=== PATIENT | male | born 1935 | race Caucasian/White ===

== ENCOUNTER 2018-09-03 17:48 | Emergency (ER) | payer MEDICARE, OTHER, SELFPAY ==
[2018-09-03 17:53] VITALS: BP 165/84; PULSE 81; RESP 24; TEMP 36.4; O2SAT 95; BMI 23.6
--- NOTE | 2018-09-03 18:16 | CT_ITS ---
STUDY: CT CERVICAL SPINE WITHOUT CONTRAST REASON FOR EXAM: Male, 83 years old. Fall, on Coumadin. RADIATION DOSAGE (If Supplied By Facility): CTDIvol = ( 19.93 ) mGy, DLP = ( 384.38 ) mGycm TECHNIQUE: High resolution transaxial imaging was performed without contrast material. Sagittal and coronal images were reconstructed. Individualized dose optimization techniques were used for this CT. COMPARISON: None FINDINGS: Normal craniovertebral junction. Normal anterior atlantoaxial articulation. Normal odontoid process. Normal cervical lordosis. Normal vertebral bodies and posterior osseous elements. C2-3: Normal endplates. Normal disc height and morphology. Normal central canal and intervertebral neuroforamina. C3-4: Normal endplates. Normal disc height and morphology. Small, noncompressive central disc protrusion. Normal central canal and intervertebral neuroforamina. Mild right facet hypertrophy. C4-5: Normal endplates. There is marked disc space narrowing. Noncompressive spondylotic bar. Foraminal stenosis is mild on the right and severe on the left due to uncinate and left facet hypertrophy. C5-6: Normal endplates. Marked disc space narrowing. Mild, noncompressive spondylotic bar. Foraminal stenosis is mild on the right and severe on the left due to uncinate and mild facet hypertrophy. C6-7: Normal endplates. Disc space narrowing. Mild, noncompressive spondylotic bar, greater on the right. There is mild foraminal encroachment, greater on the left, due to uncinate hypertrophy. C7-T1: Normal endplates. Normal disc height and morphology. Normal central canal and intervertebral neuroforamina. Normal visualized soft tissue structures. CT/Spine Cervical without Contras IMPRESSION: 1. No evidence of trauma. 2. Noncompressive C3-4 disc protrusion. 3. Moderate degenerative changes of the cervical spine. Electronically Signed: Ivana Segundo MD at 19:17 EST Tel , Service support ,
--- NOTE | 2018-09-03 18:16 | EKG12_ITS ---
Test Reason : FALL Blood Pressure : / mmHG Vent. Rate : 079 BPM Atrial Rate : 079 BPM P-R Int : 212 ms QRS Dur : 100 ms QT Int : 406 ms P-R-T Axes : 042 -27 047 degrees QTc Int : 465 ms Sinus rhythm with 1st degree A-V block Incomplete right bundle branch block Voltage criteria for left ventricular hypertrophy Nonspecific ST abnormality Abnormal ECG Confirmed by MYRON MENSAH, MAYURI ([id number]), marketing editor [place] MEI ([id number] on 09/06/2018 3:57:20 PM Referred By: MARION Confirmed By:MAYURI SANCHES MD
--- NOTE | 2018-09-03 18:16 | CT_ITS ---
STUDY: CT BRAIN WITHOUT CONTRAST REASON FOR EXAM: Male, 83 years old. Fall, on Coumadin. RADIATION DOSAGE (If Supplied By Facility): CTDIvol = ( 44.99 ) mGy, DLP = ( 812.98 ) mGycm TECHNIQUE: Transaxial CT imaging of the brain was performed without administration of intravenous contrast material. Individualized dose optimization techniques were used for this CT. COMPARISON: None. FINDINGS: Normal soft tissue structures. Normal calvarium. There is mild cerebral atrophy with widening of the extra-axial spaces and ventricular dilatation. There are areas of decreased attenuation within the white matter tracts of the supratentorial brain, consistent with microvascular disease changes. Normal basal ganglia and thalami. Normal brainstem. Normal cerebellum. There is no intracranial hemorrhage. There are no findings of an acute ischemic infarction. Normal visualized paranasal sinuses. CT/Brain/Head without Contrast IMPRESSION: 1. No acute process. 2. Mild microvascular ischemic changes. Atrophy. Electronically Signed: Ivana Segundo MD at 19:06 EST Tel , Service support ,
--- NOTE | 2018-09-03 18:16 | ED.VISSUMM ---
- ER Visit Summary Date of Service: 09/03/18 Chief Complaint: Head trauma History of Present Illness: The patient is a 83 M who presents for evaluation for head trauma after a fall. Patient states he stumbled and fell off a curb side. He had loss of consciousness, as a passerby stopped and found him unresponsive in the road. Patient had been checking his mail at the time. Family estimates patient was unconscious for 1 minute. Patient is on Coumadin. Patient currently complaining of a headache but no other complaints. He denies vision changes, neck pain, chest pain, shortness of breath, hip pain, abdominal pain, or any extremity pain. Patient denies prodromal symptoms. Family however is not for sure if patient stumbled because he tripped or if something else made him fall. Patient has been having ongoing dizziness and is currently undergoing blood pressure medication adjustments because of this. Physical Examination: Vital signs: afebrile, hemodynamically stable, no hypoxia on room air General: well nourished, well developed, in no distress Skin: warm, dry, no rash, no pallor HEENT: normocephalic, skin avulsion and hematoma on the left frontal temporoparietal scalp with arterial bleeding of the temporal artery; PERRL, EOMI, moist mucous membranes, no hemotympanum, no septal hematoma, no maxillofacial tenderness, mild contusion to the left cheek, neck is supple, no midline tenderness or deformity Cardiovascular: regular rate and rhythm without murmurs, no peripheral edema, 2+ pulses all distal extremities Respiratory: No increased work of breathing, lungs are clear to auscultation bilaterally, no rales, rhonchi or wheezing chest nontender Abdominal: Abdomen is soft, nontender with normoactive bowel sounds, no guarding or rebound, no masses MSK: Moves all extremities, no deformities,, no abrasions or lacerations noted, normal strength, pelvis is stable Neuro: Awake and alert, oriented ?4. No facial droop, sensation and motor function intact and symmetric Test Results: Abnormal Lab Results 09/03/18 09/03/18 09/03/18 18:05 18:05 18:05 WBC 5.8 RBC 3.38 L Hgb 11.3 L Hct 33.7 L MCV 99.7 H MCH 33.4 H MCHC 33.5 RDW 14.2 RDW Differential 49.3 H Plt Count 246 MPV 9.8 Immature Gran % (Auto) 0.500 Neut % (Auto) 60.5 Lymph % (Auto) 24.4 [place] % (Auto) 9.8 Eos % (Auto) 4.3 Baso % (Auto) 0.5 Absolute Neuts (auto) 3.5 Absolute Lymphs (auto) 1.42 Total Counted Not Reportable PT 25.0 H INR 2.3 APTT 50.7 H Sodium 142 Potassium 2.8 L Chloride 107 Carbon Dioxide 27.0 Anion Gap 8 BUN 25 H Creatinine 1.25 Estim Creat Clear Calc 44.08 Est GFR (MDRD) Af Amer 71 Est GFR (MDRD) Non-Af 59 L BUN/Creatinine Ratio 20.0 Glucose 103 Calcium 8.4 L Troponin I POC Glucose 09/03/18 09/03/18 18:05 18:42 WBC RBC Hgb Hct MCV MCH MCHC RDW RDW Differential Plt Count MPV Immature Gran % (Auto) Neut % (Auto) Lymph % (Auto) [place] % (Auto) Eos % (Auto) Baso % (Auto) Absolute Neuts (auto) Absolute Lymphs (auto) Total Counted PT INR APTT Sodium Potassium Chloride Carbon Dioxide Anion Gap BUN Creatinine Estim Creat Clear Calc Est GFR (MDRD) Af Amer Est GFR (MDRD) Non-Af BUN/Creatinine Ratio Glucose Calcium Troponin I 0.020 POC Glucose 121 H Clinical Impression(s) from Imaging Studies Brain CT 09/03/18 18:16 IMPRESSION: 1. No acute process. 2. Mild microvascular ischemic changes. Atrophy. Electronically Signed: Ivana Segundo MD at 19:06 EST Tel , Service support , Cervical Spine CT 09/03/18 18:16 IMPRESSION: 1. No evidence of trauma. 2. Noncompressive C3-4 disc protrusion. 3. Moderate degenerative changes of the cervical spine. Electronically Signed: Ivana Segundo MD at 19:17 EST Tel , Service support , Medications Given Discontinued Medications Acetaminophen (Tylenol) 650 mg PO X1 ONE Stop: 09/03/18 19:17 Last Admin: 09/03/18 19:19 Dose: 650 mg Lidocaine HCl (Lidocaine Hcl 1% Mdv) 0 ml INFILT X1 ONE Stop: 09/03/18 19:25 Last Admin: 09/03/18 20:39 Dose: 20 ml Potassium Chloride (K-Dur) 40 meq PO X1 ONE Stop: 09/03/18 20:32 Last Admin: 09/03/18 20:37 Dose: 40 meq Emergency Department Course and Treatment: A pressure dressing was placed over the pulsatile bleeding of the left temporal artery. CT head and C-spine performed given the mechanism of injury and patient is on Coumadin. Patient was offered and declined pain medication. He has no other findings on examination that require imaging. Workup was performed to evaluate INR and other medical workup to look for possible underlying cause of patient's stumbling. INR repeated at 2.3. EKG showed a sinus rhythm with no ischemic changes and no ectopy. It showed a first-degree AV block and incomplete right bundle branch block. Troponin negative. Labs remarkable only for hypokalemia of 2.8. Patient had no EKG changes or hypokalemia. Patient was given oral repletion in the emergency department. He began having headache from application of the pressure dressing, and he was then given Tylenol. Head CT showed no intracranial hemorrhage or skull fracture. C-spine CT showed no fracture or dislocation. Pressure dressing was removed and wound was reevaluated. The skin avulsion Is 4 cm x 4 cm with the flap in place over the temporal artery. With very minimal manipulation, arterial bleeding returned. Pressure held while area was cleansed and then locally infiltrated with 5cc of 1% plain without epinephrine. A luwrgh-ck-buqyi suture using 5-0 Ethilon was placed at the punctate spot of arterial bleeding. The bleeding at this site stopped, and then commenced again in a posterior location of the involved area. A dadhou-st-eeupz stitch was then placed spot, and bleeding commenced in between the sutures. There was no wound edges to reapproximate, as it was an superficial avulsed flap. Gelfoam was placed over the injury and a pressure dressing was then placed. On reevaluation, there was no further bleeding. A pressure dressing was applied, and patient was discharged home with wound care instructions. He was given follow-up with a surgeon for reevaluation and suture removal, as there is concern he could have further arterial bleeding and require vascular intervention. Patient was discharged home with prescription for potassium supplementation. Patient's tetanus is up-to-date. Treatment Plan: [] Disposition: [] Impression: Left frontotemporoparietal scalp 4 cm avulsion with arterial bleeding, closed head injury, hypokalemia This note was generated with [employer] (1[employer]) dictation software. It may contain incorrect words, spelling, and punctuation that were not noted in review of the chart prior to signing ED Disposition - Plan for ED Patient: Disposition: Home or Assisted Living Chief Complaint: Fall Instructions: ED Mechanical Fall, ED Laceration Scalp Stitch Or Stap Prescriptions: RX: Potassium Chloride [K-Dur] 20 meq PO BID #[id number] tab Referrals: Myles Domingo MD [STAFF PHYSICIAN] - 7 Days for suture removal Kota Mercado [[facility]] - 7 Days for suture removal Additional Instructions: You have a cut over an artery on your left scalp. 2 stitches have been placed in the cut, applied a substance called Gelfoam to help control the bleeding, and a pressure dressing was placed. Please leave the pressure dressing on for 2 days. Because of the arterial bleed and concern for damage to the artery or rebleeding when the dressing and stitches are removed, please follow-up with the surgeon on this paperwork for reevaluation of the wound. If you are unable to get an appointment with a surgeon, please follow-up with your primary care doctor for another evaluation. Sutures should be removed in 5-7 days. If at any point the cut starts bleeding again and you cannot get it to stop with pressure, you have dizziness, lightheadedness, severe headache not controlled with Tylenol, or any other concerning symptoms, return immediately to the emergency department for another evaluation.
--- NOTE | 2018-09-03 18:20 | ED.DCSUM_ITS ---
- ER Visit Summary Date of Service: 09/03/18 Chief Complaint: Head trauma History of Present Illness: The patient is a 83 M who presents for evaluation for head trauma after a fall. Patient states he stumbled and fell off a curb side. He had loss of consciousness, as a passerby stopped and found him unres ponsive in the road. Patient had been checking his mail at the time. Family estimates patient was unconscious for 1 minute. Patient is on Coumadin. Patient currently complaining of a headache but no other complaints. He denies vision changes, neck pain, chest pain, shortness of breath, hip pain, abdominal pain, or any extremity pain. Patient denies prodromal symptoms. Family however is not for sure if patient stumbled because he tripped or if something else made him fall. Patient has been having ongoing dizziness and is currently undergoing blood pressure medication adjustments because of this. Physical Examination: Vital signs: afebrile, hemodynamically stable, no hypoxia on room air General: well nourished, well developed, in no distress Skin: warm, dry, no rash, no pallor HEENT: normocephalic, skin avulsion and hematoma on the left frontal temporoparietal scalp with arterial bleeding of the temporal artery; PERRL, EOMI, moist mucous membranes, no hemotympanum, no septal hematoma, no maxillofacial tenderness, mild contusion to the left cheek, neck is supple, no midline tenderness or deformity Cardiovascular: regular rate and rhythm without murmurs, no peripheral edema, 2+ pulses all distal extremities Respiratory: No increased work of breathing, lungs are clear to auscultation bilaterally, no rales, rhonchi or wheezing chest nontender Abdominal: Abdomen is soft, nontender with normoactive bowel sounds, no guarding or rebound, no masses MSK: Moves all extremities, no deformities,, no abrasions or lacerations noted, normal strength, pelvis is stable Neuro: Awake and alert, oriented ?4. No facial droop, sensation and motor function intact and symmetric Test Results: Abnormal Lab Results 09/03/18 09/03/18 09/03/18 18:05 18:05 18:05 WBC 5.8 RBC 3.38 L Hgb 11.3 L Hct 33.7 L MCV 99.7 H MCH 33.4 H MCHC 33.5 RDW 14.2 RDW Differential 49.3 H Plt Count 246 MPV 9.8 Immature Gran % (Auto) 0.500 Neut % (Auto) 60.5 Lymph % (Auto) 24.4 [place] % (Auto) 9.8 Eos % (Auto) 4.3 Baso % (Auto) 0.5 Absolute Neuts (auto) 3.5 Absolute Lymphs (auto) 1.42 Total Counted Not Reportable PT 25.0 H INR 2.3 APTT 50.7 H Sodium 142 Potassium 2.8 L Chloride 107 Carbon Dioxide 27.0 Anion Gap 8 BUN 25 H Creatinine 1.25 Estim Creat Clear Calc 44.08 Est GFR (MDRD) Af Amer 71 Est GFR (MDRD) Non-Af 59 L BUN/Creatinine Ratio 20.0 Glucose 103 Calcium 8.4 L Troponin I POC Glucose 09/03/18 09/03/18 18:05 18:42 WBC RBC Hgb Hct MCV MCH MCHC RDW RDW Differential Plt Count MPV Immature Gran % (Auto) Neut % (Auto) Lymph % (Auto) [place] % (Auto) Eos % (Auto) Baso % (Auto) Absolute Neuts (auto) Absolute Lymphs (auto) Total Counted PT INR APTT Sodium Potassium Chloride Carbon Dioxide Anion Gap BUN Creatinine Estim Creat Clear Calc Est GFR (MDRD) Af Amer Est GFR (MDRD) Non-Af BUN/Creatinine Ratio Glucose Calcium Troponin I 0.020 POC Glucose 121 H Clinical Impression(s) from Imaging Studies Brain CT 09/03/18 18:16 IMPRESSION: 1. No acute process. 2. Mild microvascular ischemic changes. Atrophy. Electronically Signed: Ivana Segundo MD at 19:06 EST Tel , Service support , Cervical Spine CT 09/03/18 18:16 IMPRESSION: 1. No evidence of trauma. 2. Noncompressive C3-4 disc protrusion. 3. Moderate degenerative changes of the cervical spine. Electronically Signed: Ivana Segundo MD at 19:17 EST Tel , Service support , Medications Given Discontinued Medications Acetaminophen (Tylenol) 650 mg PO X1 ONE Stop: 09/03/18 19:17 Last Admin: 09/03/18 19:19 Dose: 650 mg Lidocaine HCl (Lidocaine Hcl 1% Mdv) 0 ml INFILT X1 ONE Stop: 09/03/18 19:25 Last Admin: 09/03/18 20:39 Dose: 20 ml Potassium Chloride (K-Dur) 40 meq PO X1 ONE Stop: 09/03/18 20:32 Last Admin: 09/03/18 20:37 Dose: 40 meq Emergency Department Course and Treatment: A pressure dressing was placed over the pulsatile bleeding of the left temporal artery. CT head and C-spine performed given the mechanism of injury and patient is on Coumadin. Patient was offered and declined pain medication. He has no other findings on examination that require imaging. Workup was performed to evaluate INR and other medical workup to look for possible underlying cause of patient's stumbling. INR repeated at 2.3. EKG showed a sinus rhythm with no ischemic changes and no ectopy. It showed a first-degree AV block and incomplete right bundle branch block. Troponin negative. Labs remarkable only for hypokalemia of 2.8. Patient had no EKG changes or hypokalemia. Patient was given oral repletion in the emergency department. He began having headache from application of the pressure dressing, and he was then given Tylenol. Head CT showed no intracranial hemorrhage or skull fracture. C-spine CT showed no fracture or dislocation. Pressure dressing was removed and wound was reevaluated. The skin avulsion Is 4 cm x 4 cm with the flap in place over the temporal artery. With very minimal manipulation, arterial bleeding returned. Pressure held while area was cleansed and then locally infiltrated with 5cc of 1% plain without epinephrine. A ipuvql-ci-pkrtn suture using 5-0 Ethilon was placed at the punctate spot of arterial bleeding. The bleeding at this site stopped, and then commenced again in a posterior location of the involved area. A sfzvpb-rc-ivhds stitch was then placed spot, and bleeding commenced in between the sutures. There was no wound edges to reapproximate, as it was an superficial avulsed flap. Gelfoam was placed over the injury and a pressure dressing was then placed. On reevalua tion, there was no further bleeding. A pressure dressing was applied, and patient was discharged home with wound care instructions. He was given follow- up with a surgeon for reevaluation and suture removal, as there is concern he could have further arterial bleeding and require vascular intervention. Patient was discharged home with prescription for potassium supplementation. Patient's tetanus is up-to-date. Treatment Plan: [] Disposition: [] Impression: Left frontotemporoparietal scalp 4 cm avulsion with arterial bleeding, closed head injury, hypokalemia This note was generated with [employer] dictation software. It may contain incorrect words, spelling, and punctuation that were not noted in review of the chart prior to signing ED Disposition - Plan for ED Patient: Disposition: Home or Assisted Living Chief Complaint: Fall Instructions: ED Mechanical Fall, ED Laceration Scalp Stitch Or Stap Prescriptions: RX: Potassium Chloride [K-Dur] 20 meq PO BID #7 tab Referrals: Myles Domingo MD [STAFF PHYSICIAN] - 7 Days for suture removal Kota Mercado [[facility]] - 7 Days for suture removal Additional Instructions: You have a cut over an artery on your left scalp. 2 stitches have been placed in the cut, applied a substance called Gelfoam to help control the bleeding, and a pressure dressing was placed. Please leave the pressure dressing on for 2 days. Because of the arterial bleed and concern for damage to the artery or rebleeding when the dressing and stitches are removed, please follow-up with the surgeon on this paperwork for reevaluation of the wound. If you are unable to get an appointment with a surgeon, please follow-up with your primary care doctor for another evaluation. Sutures should be removed in 5-7 days. If at any point the cut starts bleeding again and you cannot get it to stop with pressure, you have dizziness, lightheadedness, severe headache not controlled with Tylenol, or any other concerning symptoms, return immediately to the emergency department for another evaluation.
[2018-09-03 18:36] LABS: Absolute Lymphocyte Count 1.42 X10^3/ul (0.83-4.51); Absolute Neutrophil Count 3.5 X10^3/uL (2.0-7.7); Basophil# 0.03 X10^3/uL; Basophil% 0.5 % (0-1); Eosinophil# 0.25 X10^3/uL; Eosinophils% 4.3 % (0-5); Hematocrit 33.7 % (40-54); Hemoglobin 11.3 g/dl (13.0-16.5); Lymphocyte # 1.42 X10^3/ul (4.0); Lymphocyte % 24.4 % (19-41); Mean Corp Hgb Conc 33.5 g/gl (32-36); Mean Corpuscular Hgb 33.4 pg (27.0-32.0); Mean Corpuscular Volume 99.7 fL (80-94); Mean Platelet Vol. 9.8 fl (6.2-12.0); Monocyte# 0.57 X10^3/uL; Monocyte% 9.8 % (0-10); Neutrophil # 3.53 X10^3/uL (2.7-7.7); Neutrophil % 60.5 % (47-70); Platelet Count 246 K/mm3 (150-450); RBC Distribution Width CV 14.2 % (11.6-14.6); RBC Distribution Width SD 49.3 fl (35.1-43.9); Red Blood Count 3.38 M/mm3 (4.6-6.2); White Blood Count 5.8 K/mm3 (4.4-11.0)
[2018-09-03 18:37] LABS: POSITIVE COUNT NO; POSITIVE DIFFERENTIAL NO; POSITIVE MORPHOLOGY NO
[2018-09-03 18:40] LABS: International Normalized Ratio 2.3
[2018-09-03 18:41] LABS: Partial Thromboplast Time 50.7 Seconds (24.1-36.2)
[2018-09-03 18:45] LABS: Anion Gap 8 (5-15); BUN 25 mg/dL (7-18); Calcium,Total 8.4 mg/dL (8.5-10.1); Chloride 107 mmol/L (98-107); Creatinine, Serum 1.25 mg/dL (0.70-1.30); EST Glomerular Filtration Rate 59 mL/min (>60); Est Glom Filt Rate - Afr Amer 71 mL/min (>60); Estimated Creatinine Clearance 44.08 ml/min; Glucose 103 mg/dL (74-106); Potassium 2.8 mmol/L (3.5-5.1); Sodium Level 142 mmol/L (136-145)
[2018-09-03 18:46] LABS: Bedside Glucose 121 mg/dL (70-110)
[2018-09-03 18:56] VITALS: BP 169/79; PULSE 79; RESP 20; O2SAT 99
[2018-09-03 19:19] VITALS: BP 165/83; PULSE 83; RESP 19; O2SAT 99
[2018-09-03] MEDS: Acetaminophen 325 MG Tablet 650 MG PO (19:19)
--- NOTE | 2018-09-03 20:04 | ED.DEP ---
ED Disposition - Plan for ED Patient: Disposition: Home or Assisted Living Chief Complaint: Fall Instructions: ED Mechanical Fall, ED Laceration Scalp Stitch Or Stap Referrals: Kota Mercado [[facility]] - 7 Days for suture removal Myles Domingo MD [STAFF PHYSICIAN] - 7 Days for suture removal Additional Instructions: You have a cut over an artery on your left scalp. 2 stitches have been placed in the cut, applied a substance called Gelfoam to help control the bleeding, and a pressure dressing was placed. Please leave the pressure dressing on for 2 days. Because of the arterial bleed and concern for damage to the artery or rebleeding when the dressing and stitches are removed, please follow-up with the surgeon on this paperwork for reevaluation of the wound. If you are unable to get an appointment with a surgeon, please follow-up with your primary care doctor for another evaluation. Sutures should be removed in 5-7 days. If at any point the cut starts bleeding again and you cannot get it to stop with pressure, you have dizziness, lightheadedness, severe headache not controlled with Tylenol, or any other concerning symptoms, return immediately to the emergency department for another evaluation.
[2018-09-03 20:43] VITALS: BP 153/61; PULSE 74; RESP 16; O2SAT 99
== END 2018-09-03 20:43 | disposition home or self-care (01) ==
PROVIDERS: Emergency Provider Emergency Medicine; Family Provider Family Medicine; PCP Family Medicine
DX: S09.0XXA Injury of blood vessels of head, not elsewhere classified, initial encounter (principal); S08.0XXA Avulsion of scalp, initial encounter; E87.6 Hypokalemia; R55 Syncope and collapse; S00.03XA Contusion of scalp, initial encounter; M50.21 Other cervical disc displacement, high cervical region; I44.0 Atrioventricular block, first degree; I45.10 Unspecified right bundle-branch block; W10.1XXA Fall (on)(from) sidewalk curb, initial encounter; Y93.9 Activity, unspecified; Y92.9 Unspecified place or not applicable; Z79.01 Long term (current) use of anticoagulants; Z95.0 Presence of cardiac pacemaker
CPT/HCPCS: 35188; 70450; 72125; 80048; 82962; 84484; 85025; 85610; 85730; 93005; 99285; J7030; A4216

== ENCOUNTER 2018-11-24 10:53 | Emergency (ER) | payer MEDICARE, OTHER, SELFPAY ==
[2018-11-24 10:54] VITALS: BP 179/88; PULSE 60; RESP 19; TEMP 36.4; O2SAT 97; BMI 23.3
--- NOTE | 2018-11-24 11:08 | EKG12_ITS ---
Test Reason : LOW EXTREMITY Blood Pressure : / mmHG Vent. Rate : 065 BPM Atrial Rate : 065 BPM P-R Int : 258 ms QRS Dur : 100 ms QT Int : 444 ms P-R-T Axes : 000 -21 010 degrees QTc Int : 461 ms Atrial-paced rhythm with prolonged AV conduction Incomplete right bundle branch block Voltage criteria for left ventricular hypertrophy Abnormal ECG Confirmed by MYRON MENSAH, MAYURI ([id number]), primer expeditor and drier [place] MEI ([id number] on 11/29/2018 8:40:02 AM Referred By: JOSE C Confirmed By:MAYURI SANCHES MD
--- NOTE | 2018-11-24 11:11 | ED.VISSUMM ---
- ER Visit Summary Date of Service: 11/24/18 Chief Complaint: [] Lateral lower extremity weakness trouble walking since Wednesday History of Present Illness: The patient is a 83 M [] history of left rotator cuff, history of lumbar back ailment related to arthritis, history of cardiac CABG years ago, cardiac pacemaker, who is generally in stable good health. Indicates on Wednesday he was pushing a snowblower to clear snow and since that time he is experiencing sense of weakness to his legs where he cannot walk any can only shuffle and knees having trouble getting around his home he thought the symptoms would improve they did not me presents for evaluation, he does have a chronic pain to his right leg that seems slightly worse he has had no trauma no fever no cough no abdominal pain no numbness no chest pain, his lumbar back ailment is related to degenerating bones he says and arthritis he is never been told he needs surgery he has no history of peripheral vascular disease Physical Examination: [] v Signs are within normal range see those reports General, no distress resting comfortably HEENT is generally unremarkable The neck is supple no adenopathy Cardiovascular, regular rate and rhythm Lungs, clear bilateral Abdomen, soft nontender Extremities, no clubbing cyanosis or edema, he has a very faint dorsalis pedis pulses to both feet the capillary refill is similar to seconds bilaterally, both feet are warm, he has full range of motion of both lower extremities when sitting in the bed he is able to fully flex and extend at the hip and the knee dorsi and plantarflex the foot his sensation is intact to all areas there is no signs of neurovascular abnormality, he has no significant back pain to palpation,, he has decreased movement to the left upper extremity related to chronic rotator cuff deficiency not new Neurologic, awake alert answering questions appropriately moving all 4 extremities no neurologic abnormalities in the bed however when he stands he cannot even take a step forward as he feels as if his legs are rubbery Test Results: [] Emergency Department Course and Treatment: [] In all the above screening labs are obtained x-rays of the lumbar spine we are coordinating with MRI the feasibility of obtaining an MRI scan of the back given his pacemaker history Per MRI, the information they have is that the patient's pacemaker is not type where he can have a MRI, his lumbar spine films show 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, again the patient's neurologic status is unchanged she has had these symptoms since Wednesday when he is in the bed he can move his legs a difficulty is only on standing that he has profound weakness with inability to walk, discussed all of the above with the patient his discussed the need to be more definitively evaluated related to the lumbar disc abnormalities on the CT he asked to be transferred to [facility] since he has had all of his care there related to his cardiovascular conditions Spoke with [facility] they are arranging for transportation there they will be calling back with the bed and the accepting physician Disposition: [] To [facility] Impression: [] Lower extremity weakness inability to walk, 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 It may contain incorrect words, spelling, and punctuation that were not noted in review of the chart prior to signing ED Disposition - Plan for ED Patient: Referrals: Kota Mercado MD [Primary Care Provider] -
--- NOTE | 2018-11-24 11:14 | ART_ITS ---
Reason For Study: BLE weakness Left Segmental Pressures Left posterior tibial artery = 227mmHg. Left dorsalis pedis artery = 212mmHg. The left dorsalis pedis waveforms are triphasic. The left posterior tibial artery waveforms are triphasic. Right Segmental Pressures Right brachial= 179mmHg. Right posterior tibial artery = 235mmHg. Right dorsalis pedis artery = 190mmHg. The right dorsalis pedis waveforms are triphasic. The right posterior tibial artery waveforms are triphasic. Indices The right ankle brachial index by the dorsalis pedis is 1.1. The right ankle brachial index by the posterior tibial artery is 1.3. The left ankle brachial index by the dorsalis pedis is 1.3. The left ankle brachial index by the posterior tibial artery is 1.2. Interpretation Summary Normal bilateral lower extremity CLARISSA's with nice triphasic waveforms. Volume pulse recordings intact bilaterally including the digital level. Ordering Physician: Hunter Monteiro Referring Physician: Kota Mercado Performed By: Alice Ruvalcaba T
--- NOTE | 2018-11-24 11:14 | ED.DCSUM_ITS ---
- ER Visit Summary Date of Service: 11/24/18 Chief Complaint: [] Lateral lower extremity weakness trouble walking since Wednesday History of Present Illness: The patient is a 83 M [] history of left rotator cuff, history of lumbar back ailment related to arthritis, history of cardiac CABG years ago, cardiac pacemaker, who is generally in stable good health. Indicates on Wednesday he was pushing a snowblower to clear snow and since that time he is experiencing sense of weakness to his legs where he cannot walk any can only shuffle and knees having trouble getting around his home he thought the symptoms would improve they did not me presents for evaluation, he does have a chronic pain to his right leg that seems slightly worse he has had no trauma no fever no cough no abdominal pain no numbness no chest pain, his lumbar back ailment is related to degenerating bones he says and arthritis he is never been told he needs surgery he has no history of peripheral vascular disease Physical Examination: [] v Signs are within normal range see those reports General, no distress resting comfortably HEENT is generally unremarkable The neck is supple no adenopathy Cardiovascular, regular rate and rhythm Lungs, clear bilateral Abdomen, soft nontender Extremities, no clubbing cyanosis or edema, he has a very faint dorsalis pedis pulses to both feet the capillary refill is similar to seconds bilaterally, both feet are warm, he has full range of motion of both lower extremities when sit ting in the bed he is able to fully flex and extend at the hip and the knee dorsi and plantarflex the foot his sensation is intact to all areas there is no signs of neurovascular abnormality, he has no significant back pain to palpation,, he has decreased movement to the left upper extremity related to chronic rotator cuff deficiency not new Neurologic, awake alert answering questions appropriately moving all 4 extremities no neurologic abnormalities in the bed however when he stands he cannot even take a step forward as he feels as if his legs are rubbery Test Results: [] Emergency Department Course and Treatment: [] In all the above screening labs are obtained x-rays of the lumbar spine we are coordinating with MRI the fea sibility of obtaining an MRI scan of the back given his pacemaker history Per MRI, the information they have is that the patient's pacemaker is not type where he can have a MRI, his lumbar spine films show 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, again the patient's neurologic status is unchanged she has had these symptoms since Wednesday when he is in the bed he can move his legs a difficulty is only on standing that he has profound weakness with inability to walk, discussed all of the above with the patient his discussed the need to be more definitively evaluated related to the lumbar disc abnormalities on the CT he asked to be transferred to [facility] since he has had all of his care there related to his cardiovascular conditions Spoke with [facility] they are arranging for transportation there they will be calling back with the bed and the accepting physician Disposition: [] To [facility] Impression: [] Lower extremity weakness inability to walk, 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 It may contain incorrect words, spelling, and punctuation that were not noted in review of the chart prior to signing ED Disposition - Plan for ED Patient: Referrals: Kota Mercado MD [Primary Care Provider] -
[2018-11-24 11:47] LABS: Absolute Lymphocyte Count 0.79 X10^3/ul (0.83-4.51); Absolute Neutrophil Count 3.3 X10^3/uL (2.0-7.7); Basophil# 0.02 X10^3/uL; Basophil% 0.4 % (0-1); Eosinophil# 0.09 X10^3/uL; Hematocrit 32.6 % (40-54); Hemoglobin 10.8 g/dl (13.0-16.5); Lymphocyte # 0.79 X10^3/ul (4.0); Lymphocyte % 17.3 % (19-41); Mean Corp Hgb Conc 33.1 g/gl (32-36); Mean Corpuscular Hgb 31.7 pg (27.0-32.0); Mean Corpuscular Volume 95.6 fL (80-94); Mean Platelet Vol. 9.3 fl (6.2-12.0); Monocyte# 0.35 X10^3/uL; Monocyte% 7.7 % (0-10); Neutrophil % 72.2 % (47-70); POSITIVE COUNT NO; POSITIVE DIFFERENTIAL NO; POSITIVE MORPHOLOGY NO; Platelet Count 204 K/mm3 (150-450); RBC Distribution Width CV 14.8 % (11.6-14.6); RBC Distribution Width SD 50.9 fl (35.1-43.9); Red Blood Count 3.41 M/mm3 (4.6-6.2); White Blood Count 4.6 K/mm3 (4.4-11.0)
[2018-11-24 11:55] LABS: International Normalized Ratio 1.9; Prothrombin Time (Protime)PT. 22.2 SECONDS (11.7-14.9)
[2018-11-24 12:03] LABS: Anion Gap 8 (5-15); BUN 22 mg/dL (7-18); BUN/Creat Ratio 20.8 RATIO (10-20); Calcium,Total 8.5 mg/dL (8.5-10.1); Chloride 110 mmol/L (98-107); Creatinine, Serum 1.06 mg/dL (0.70-1.30); EST Glomerular Filtration Rate 71 mL/min (>60); Est Glom Filt Rate - Afr Amer 86 mL/min (>60); Estimated Creatinine Clearance 55.48 ml/min; Glucose 104 mg/dL (74-106); Potassium 3.6 mmol/L (3.5-5.1); Sodium Level 140 mmol/L (136-145)
--- NOTE | 2018-11-24 12:15 | RAD_ITS ---
STUDY: X-RAY - LUMBAR SPINE REASON FOR EXAM: Male, 83 years old. Arthritis. TECHNIQUE: 3 view(s) of the lumbar spine were obtained. COMPARISON: None FINDINGS: Normal lumbar lordosis. There is no substantial scoliosis. There is a normal alignment of the vertebrae. 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 5 vertebral bodies without ribs above this level will be deemed L1-L5 for this dictation. There is mild degenerative sclerosis of the opposing L4-5 endplates and possible left lateral endplate spurring. There is severe narrowing of the L4-5 intervertebral disc height, and borderline to mild narrowing at L5-transitional vertebra. There is no demonstrated osseous destructive lesion or fracture. Degenerative changes also suggested in the lower lumbar facet articulations. 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 RAD/Lumbar Spine 2 or 3 Views IMPRESSION: 1. Degenerative changes of the spine, as detailed above. 2. 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 Diffuse aortic calcific plaquing with 3.3 cm fusiform ectasia at its distal third. Electronically Signed: Juan Huizar MD at 13:29 EST , Service support ,
--- NOTE | 2018-11-24 12:20 | RAD_ITS ---
STUDY: X-RAY CHEST REASON FOR EXAM: Male, 83 years old. Chest pain. TECHNIQUE: Single AP portable upright view of the chest. COMPARISON: None. FINDINGS: There is a left sided cardiac pacemaker, generator overlaps in the lateral margin of the left thoracic cage. Its 2 leads extend from the subclavian vein to the right atrium and ventricle. The lungs are under expanded. There is minor curvilinear scarring in the left lung base. There is no demonstrated pleural abnormality. There is borderline cardiomegaly. Sternal cerclage wires and vascular clips are present from a prior sternotomy and coronary artery bypass graft procedure (CABG). Normal mediastinum and moise. Normal visualized pulmonary arteries. There is mild atherosclerotic calcification of the aortic arch. Normal visualized thoracic spine. Normal visualized ribs, clavicles, and shoulders. There is no demonstrated abnormality of the visualized soft tissue structures of the upper abdomen. RAD/Chest 1 View (Portable) IMPRESSION: 1. Prior median sternotomy and CABG. Borderline cardiac enlargement. No CHF. 2. Dual lead left subclavian cardiac pacemaker in place. 3. Minor linear left base pulmonary scarring. Electronically Signed: Juan Huizar MD at 12:45 EST , Service support ,
[2018-11-24 12:22] LABS: CPK Total, Creatine Kinase 127 U/L (39-308)
[2018-11-24 14:04] VITALS: BP 162/78; PULSE 60; RESP 19; O2SAT 95
--- NOTE | 2018-11-24 14:04 | CT_ITS ---
STUDY: CT LUMBAR SPINE WITHOUT CONTRAST REASON FOR EXAM: Male, 83 years old. Low back pain. Bilateral leg weakness after snow blowing, trouble with ambulation. RADIATION DOSAGE (If Supplied By Facility): CTDIvol = ( 16.49 ) mGy, DLP = ( 470.80 ) mGycm TECHNIQUE: The patient was scanned in a multi detector CT scanner. High resolution transaxial imaging was performed. Images were obtained from T12-L1 to S3-4. Sagittal and coronal images were reconstructed. Individualized dose optimization techniques were used for this CT. COMPARISON: 3 plain film views of the lumbar spine 1224 hours. FINDINGS: There is a transitional lumbosacral vertebra with near spina bifida occulta. For the purposes of this dictation, this will be deemed S1 and the 5 nonrib-bearing vertebrae above this level will be labeled L1-L5. There is no demonstrated osseous destructive lesion or acute fracture. Normal lumbar lordosis. There is mild rightward subluxation of L4 on L5 and mild leftward subluxation of L5 on S1, resulting in a minor lumbosacral as shaped scoliosis. L1-2: Early bilateral posterolateral degenerative endplate lipping. Minimal right-sided disc height narrowing. Normal bilateral facet joints. Normal central canal and bilateral lateral recesses. Normal bilateral intervertebral neural foramina. L2-3: Early anterolateral degenerative endplate lipping. Mild right-sided disc height narrowing with circumferential disc bulge and mild wide based left lateral disc protrusion. Normal bilateral facet joints. There is disc effacement of the anterior central canal and bilateral lateral recesses. Normal bilateral intervertebral neural foramina. L3-4: Early degenerative endplate lipping. Moderate right-sided disc height narrowing and mild circumferential disc bulge. Early posterior degenerative narrowing of the right facet joint. There is subtle hypertrophy of the ligamentum flavum. Minor narrowing of the central canal and bilateral lateral recesses. Normal bilateral intervertebral neural foramina. L4-5: Left lateral endplate osteophytes and mild right lateral L5 endplate spurring. Well corticated focal invaginations consistent with benign Schmorl's nodes and/or subcortical cystic degenerative changes are most prominent in the left superior L5 endplate. Moderate to moderately severe disc height narrowing, most prominent to the left. Mild wide based posterior disc bulge. There is vacuum phenomenon due to disc dehydration in the left disc spaces well. Early degenerative periarticular spurring of the bilateral facet joints. There is mild joint space narrowing on the left. Mild hypertrophy ligamentum flavum. Mild to moderate narrowing of the central canal and bilateral lateral recesses. Possible disc/spur impingement on the exiting left nerve root. L5-S1: There is right lateral endplate sclerosis and degenerative osteophyte formation. Well-corticated, focal invaginations of the endplates in this area consistent with small benign Schmorl's nodes. Moderately severe right-sided narrowing of the disc space. Moderate to moderately severe narrowing of the bilateral facet joints with degenerative sclerosis in the S1 facet and minor calcification of the right ligamentum flavum. Normal central canal and bilateral lateral recesses. Potential disc irritation of the bilateral exiting nerve roots. Normal visualized paraspinous soft tissue structures. Incidental note of aortoiliac atherosclerotic calcific plaquing. CT/Spine Lumbar without Contrast IMPRESSION: Multilevel degenerative changes, as described above. Electronically Signed: Juan Huizar MD at 15:22 EST , Service support ,
[2018-11-24 16:00] VITALS: BP 114/87; PULSE 68; RESP 15; O2SAT 96
--- NOTE | 2018-11-24 17:01 | NURSING ---
DR GATICA AKJAVI GEN [id number] BED 2 REPORT [phone]
--- NOTE | 2018-11-24 17:07 | NURSING ---
CALLED [facility] FOR TRANSPORT. COMING FROM [place]
[2018-11-24 17:11] VITALS: BP 160/76; PULSE 70; RESP 15; O2SAT 97
[2018-11-24 17:54] VITALS: BP 160/76; PULSE 70; RESP 15; TEMP 36.6; O2SAT 97
== END 2018-11-24 18:22 | disposition short-term general hospital (02) ==
PROVIDERS: Emergency Provider Emergency Medicine; Family Provider Family Medicine; PCP Family Medicine
DX: R29.898 Other symptoms and signs involving the musculoskeletal system (principal); M51.36 Other intervertebral disc degeneration, lumbar region; M51.26 Other intervertebral disc displacement, lumbar region; Z95.1 Presence of aortocoronary bypass graft; Z79.899 Other long term (current) drug therapy; M79.604 Pain in right leg; R26.2 Difficulty in walking, not elsewhere classified
CPT/HCPCS: 71045; 72100; 72131; 80048; 82550; 83880; 84484; 85025; 85610; 93005; 93923; 99285; J7030

== ENCOUNTER 2020-10-30 11:47 | Emergency (ER) | payer MEDICARE, OTHER, SELFPAY ==
[2020-10-30 11:48] VITALS: BP 163/112; PULSE 63; RESP 18; TEMP 36; O2SAT 95; BMI 22.1
--- NOTE | 2020-10-30 12:08 | EKG12_ITS ---
Test Reason : CP Blood Pressure : / mmHG Vent. Rate : 070 BPM Atrial Rate : 070 BPM P-R Int : 000 ms QRS Dur : 110 ms QT Int : 456 ms P-R-T Axes : 000 -31 103 degrees QTc Int : 492 ms AV dual-paced rhythm Abnormal ECG Confirmed by MYRON MENSAH, MAYURI ([id number]), magazine editor SHANELL HFUFMAN ([id number]) on 11/04/2020 9:38:35 AM Referred By: BOOGIE Confirmed By:MAYURI SANCHES MD
[2020-10-30 12:40] VITALS: O2SAT 95
--- NOTE | 2020-10-30 12:46 | ED.VIS.GEN ---
History of Present Illness Chief Complaint: Shortness of Breath Informant: Patient Narrative: Patient is an 85-year-old male with a past medical history of CAD with bypass, A. fib on Eliquis, hypertension who presents to the emergency department for chest pain or shortness of breath. Symptoms have been present over the past 4 days. He states that his shortness of breath has resolved at this point. He went to his PCPs to get a coronavirus test and he was referred to the ED at that time. He states that his chest discomfort is a 1 out of 10. It feels achy to him. Is in the substernal region and does not radiate anywhere. He has not tried taking anything for this. He does have occasional peripheral edema of the lower extremities but no worse than normal. No calf tenderness. He denies any palpitations. No cough, headache, sore throat. No fevers or chills. No nausea/vomiting or diarrhea. No known sick exposures. Past Medical History - Allergies and Home Meds Allergies/Adverse Reactions: Allergies No Known Allergies Allergy (Verified 10/30/20 11:47) Primary Care Physician: Kota Mercado MD [Primary Care Provider] - 3-5 Days Past Medical History: - - Per HPI Surgical History: coronary bypass surgery Smoking Status: Never smoker Review of Systems All systems negative except as indicated General: Denies: Chills, Fever, Sweats Eyes: Denies: Visual changes - bilaterally, Diplopia ENT: Denies: Rhinorrhea, Sore throat Cardiovascular: Reports: Chest pain. Denies: Palpitations Respiratory: Reports: Dyspnea - Resolved. Denies: Cough, Dyspnea on exertion Gastrointestinal: Denies: Abdominal pain, Nausea, Vomiting, Diarrhea Genitourinary: Denies: Dysuria, Hematuria, Frequency Musculoskeletal: Denies: Back pain, Extremity Pain Skin: Denies: Rash, Wounds Neurological: Denies: Headache, Weakness, Numbness Physical Exam Vital Signs/Narrative: Vital Signs Temp Pulse Resp BP Pulse Ox 10/30/20 11:48 96.8 F L 63 18 163/112 H 95 Inital Vital Signs reviewed: Yes General: Well nourished, Well developed, No Acute Distress Head: Normocephalic, Atraumatic Eyes: Perrl, EOMI ENT: Moist mucous membranes, No rhinorrhea Neck: Supple, Nontender Cardiovascular: Regular rate, Regular rhythm, No murmurs Respiratory: No distress, CTA bilaterally, Chest nontender Abdomen: Soft, Nontender, Nondistended, Normal bowel sounds Back: Nontender, Normal Inspection Extremities: Nontender, No edema. Negative for: Calf Tenderness Skin: Normal color, No rash Neurological: Alert, Oriented x3, Cranial nerves II-XII grossly intact, Normal Strength, Normal Sensation Psychological: Normal affect, Normal Mood Diagnostic/Tx/Re-eval Chest X-Ray - ED: 1 View - Single view portable x-ray interpreted by myself. Present. He does have a pacemaker present. Mild pulmonary vascular congestion. No pleural effusions. No infiltrates noted. Normal cardiac silhouette. Normal mediastinum. Agree with radiologist interpretation. - EKG Initial EKG Interpretation: - - Rate of 70 bpm and an irregular rhythm. Otherwise normal intervals. Left axis deviation. No ST elevations or depressions. No T wave abnormalities. - Medical Decision Making Patient presents to the ED for 1 out of 10 chest pain shortness of breath. Initially only wanted a coronavirus test from his PCP but he was told to come to the emergency department. Upon arrival to the ED vital signs within normal limits. He is in no acute distress. He states that his shortness of breath has actually completely resolved. Will check EKG, chest x-ray and basic lab work. Patient's work-up showed the patient to be hypokalemic and hypomagnesium. This will replace both IV and orally. His troponin is within normal limits. His Covid test is negative. Given his history of CABG and chest pain I did offer hospitalization. He states that this is very minimal and actually stating that he is not having any pain whatsoever at this time. He understands associated with risk of not having complete work-up. He is going to follow-up with his PCP and states he has an appointment coming this next week. I did discuss strict return precautions including any worsening chest pain or shortness of breath. He understands and is agreeable this plan. All questions were answered. ED Disposition - Plan for ED Patient: Disposition: Home or Assisted Living Diagnosis: Chest pain, Hypokalemia, Hypomagnesemia Instructions: ED Chest Pain, Uncertain Cause, ED Hypokalemia Referrals: Kota Mercado MD [Primary Care Provider] - 3-5 Days
--- NOTE | 2020-10-30 12:50 | RAD_ITS ---
STUDY: X-RAY CHEST REASON FOR EXAM: Male, 85 years old. Sob, cp TECHNIQUE: Single AP portable view of the chest. COMPARISON: Comparison is made with prior examination dated 11/24/2018. FINDINGS: EKG electrodes are seen. Minimal degree of vascular congestion. There is no demonstrated pleural abnormality. Sternal cerclage wires and vascular clips are present from a prior sternotomy and coronary artery bypass graft procedure (CABG). Borderline cardiomegaly. A left-sided dual-chamber pacemaker is seen. Normal mediastinum and moise. Normal visualized pulmonary arteries. There is atherosclerotic calcification of the aortic arch with tortuosity. Normal visualized thoracic spine. Normal visualized ribs, clavicles, and shoulders. There is no demonstrated abnormality of the visualized soft tissue structures of the upper abdomen. RAD/Chest 1 View (Portable) IMPRESSION: Mild degree of vascular congestion. Electronically Signed: Michael Soriano, at 13:39 EST , Service support ,
[2020-10-30 12:55] LABS: Absolute Lymphocyte Count 0.96 X10^3/uL (0.83-4.51); Absolute Neutrophil Count 4.4 X10^3/uL (2.0-7.7); Basophil# 0.04 X10^3/uL; Basophil% 0.6 % (0-1); Eosinophil# 0.15 X10^3/uL; Eosinophils% 2.4 % (0-5); Hematocrit 34.7 % (40-54); Hemoglobin 11.7 g/dL (13.0-16.5); Lymphocyte # 0.96 X10^3/ul (4.0); Lymphocyte % 15.5 % (19-41); Mean Corp Hgb Conc 33.7 g/dL (32-36); Mean Corpuscular Hgb 32.5 pg (27.0-32.0); Mean Corpuscular Volume 96.4 fL (80-94); Mean Platelet Vol. 9.8 fl (6.2-12.0); Monocyte# 0.58 X10^3/uL; Monocyte% 9.4 % (0-10); NRBC Flagged by Analyzer 0 % (0-5); Neutrophil # 4.44 X10^3/uL (2.7-7.7); Neutrophil % 71.8 % (47-70); Platelet Count 199 K/mm3 (150-450); RBC Distribution Width CV 13.1 % (11.6-14.6); RBC Distribution Width SD 46.6 fl (35.1-43.9); White Blood Count 6.2 K/mm3 (4.4-11.0)
[2020-10-30 13:31] LABS: AST(SGOT) 30 U/L (15-37); Alanine Aminotransfer ALT/SGPT 43 U/L (16-61); Albumin, Serum 3.8 g/dL (3.2-5.0); Alkaline Phosphatase 83 U/L (45-117); Anion Gap 6 (5-15); BUN 15 mg/dL (7-18); BUN/Creat Ratio 14.4 RATIO (10-20); Calcium,Total 8.6 mg/dL (8.5-10.1); Chloride 106 mmol/L (98-107); Creatinine, Serum 1.04 mg/dL (0.70-1.30); EST Glomerular Filtration Rate 72 mL/min (>60); Est Glom Filt Rate - Afr Amer 87 mL/min (>60); Estimated Creatinine Clearance 50.88 ml/min; Globulin 3.9 g/dL (2.2-4.2); Glucose 100 mg/dL (74-106); Potassium 2.9 mmol/L (3.5-5.1); Protein, Total 7.7 g/dL (6.4-8.2); Sodium Level 141 mmol/L (136-145)
[2020-10-30 14:23] VITALS: BP 162/68; PULSE 71; RESP 16; O2SAT 95
[2020-10-30] MEDS: Potassium Chloride 10mEq/100mL 10 MEQ/100 ML IV.SOLN. 100 MEQ IV BOLUS (14:43)
[2020-10-30 14:57] LABS: Magnesium 1.2 mg/dL (1.6-2.6)
[2020-10-30 16:06] VITALS: BP 159/79; PULSE 65; RESP 15; O2SAT 96
[2020-10-30 17:13] VITALS: BP 145/82; PULSE 62; RESP 15; O2SAT 95
[2020-10-30 18:26] VITALS: BP 145/76; PULSE 68; RESP 16; O2SAT 95
== END 2020-10-30 18:32 | disposition home or self-care (01) ==
PROVIDERS: Emergency Provider Emergency Medicine; PCP Family Medicine
DX: R07.9 Chest pain, unspecified (principal); E87.6 Hypokalemia; E83.42 Hypomagnesemia; I10 Essential (primary) hypertension; I25.10 Atherosclerotic heart disease of native coronary artery without angina pectoris; I48.91 Unspecified atrial fibrillation; Z95.1 Presence of aortocoronary bypass graft; Z79.01 Long term (current) use of anticoagulants; Z79.899 Other long term (current) drug therapy
CPT/HCPCS: 71045; 80053; 83735; 84484; 85025; 87426; 93005; 96365; 96366; 96367; 99285; J7050; A4216

== ENCOUNTER 2020-12-02 09:05 | Observation (INO) | payer MEDICARE, OTHER, SELFPAY ==
[2020-12-02] VITALS (7 sets, daily range): BP systolic 120–141; BP diastolic 51–70; PULSE 60–73; RESP 16–18; TEMP 36.5–36.9; O2SAT 91–96; BMI 21.6; BMI 20.8
--- NOTE | 2020-12-02 09:15 | RAD_ITS ---
STUDY: X-RAY CHEST REASON FOR EXAM: Male, 85 years old. Weakness and cough TECHNIQUE: Single AP portable view of the chest. COMPARISON: 10/30/2020 FINDINGS: There has been median sternotomy/CABG. There is a left-sided dual-lead percutaneous pacemaker. There are coarse lung markings. There may be mild atelectasis at the left lung base. There is no focal pulmonary consolidation. There is no demonstrated pleural abnormality. Normal size heart. Normal mediastinum and moise. There is prominence of the pulmonary hilar arteries and peripheral pulmonary arteries, consistent with congestive heart failure (CHF). There is atherosclerotic calcification of the aortic arch with tortuosity. Normal visualized thoracic spine. Normal visualized ribs, clavicles, and shoulders. There is no demonstrated abnormality of the visualized soft tissue structures of the upper abdomen. RAD/Chest 1 View (Portable) IMPRESSION: There is pulmonary vascular congestion. There are coarse lung markings, this may be due to chronic lung disease or pulmonary edema, consider acute CHF exacerbation. Electronically Signed: Emmanuel Miller MD at 10:14 EST Tel , Service support ,
--- NOTE | 2020-12-02 09:16 | EKG12_ITS ---
Test Reason : WEAKNESS Blood Pressure : / mmHG Vent. Rate : 064 BPM Atrial Rate : 064 BPM P-R Int : 274 ms QRS Dur : 110 ms QT Int : 450 ms P-R-T Axes : 000 -27 148 degrees QTc Int : 464 ms Atrial-paced rhythm with prolonged AV conduction Left ventricular hypertrophy with repolarization abnormality Abnormal ECG Confirmed by ROSALIA MENSAH, JOHNNY ([id number]), department editor SHANELL HUFFMAN ([id number]) on 12/06/2020 8:45:06 AM Referred By: DWAYNE Confirmed By:CAROLINA LINDSEY MD
--- NOTE | 2020-12-02 09:19 | CT_ITS ---
STUDY: CT BRAIN WITHOUT CONTRAST REASON FOR EXAM: Male, 85 years old. WEAKNESS RADIATION DOSAGE (If Supplied By Facility): CTDIvol = ( 44.99 ) mGy, DLP = ( 829.85 ) mGycm TECHNIQUE: Transaxial CT imaging of the brain was performed without administration of intravenous contrast material. Individualized dose optimization techniques were used for this CT. COMPARISON: CT head 09/03/2018 FINDINGS: Normal soft tissue structures. There is bilateral parietal bone craniotomy. There is mild cerebral atrophy with widening of the extra-axial spaces and ventricular dilatation. There are areas of decreased attenuation within the white matter tracts of the supratentorial brain, consistent with microvascular disease changes. Normal basal ganglia and thalami. Normal brainstem. Normal cerebellum. There is no intracranial hemorrhage. There are no findings of an acute ischemic infarction. Normal visualized paranasal sinuses. CT/Brain/Head without Contrast IMPRESSION: Chronic involutional changes of the brain. Electronically Signed: Emmanuel Miller MD at 10:35 EST Tel , Service support ,
[2020-12-02 09:48] LABS: Absolute Lymphocyte Count 0.61 X10^3/uL (0.83-4.51); Absolute Neutrophil Count 8.5 X10^3/uL (2.0-7.7); Basophil# 0.02 X10^3/uL; Basophil% 0.2 % (0-1); Eosinophil# 0.02 X10^3/uL; Eosinophils% 0.2 % (0-5); Hematocrit 29.7 % (40-54); Hemoglobin 10.2 g/dL (13.0-16.5); Lymphocyte # 0.61 X10^3/ul (4.0); Mean Corp Hgb Conc 34.3 g/dL (32-36); Mean Corpuscular Volume 96.1 fL (80-94); Mean Platelet Vol. 9.8 fl (6.2-12.0); Monocyte# 0.99 X10^3/uL; Monocyte% 9.7 % (0-10); NRBC Flagged by Analyzer 0 % (0-5); Neutrophil # 8.49 X10^3/uL (2.7-7.7); Neutrophil % 83.4 % (47-70); Platelet Count 169 K/mm3 (150-450); RBC Distribution Width CV 13.7 % (11.6-14.6); RBC Distribution Width SD 48.5 fl (35.1-43.9); Red Blood Count 3.09 M/mm3 (4.6-6.2); White Blood Count 10.2 K/mm3 (4.4-11.0)
[2020-12-02 10:07] LABS: ALB/GLOB Ratio 0.8 RATIO (0.9-2.4); AST(SGOT) 43 U/L (15-37); Alanine Aminotransfer ALT/SGPT 39 U/L (16-61); Albumin, Serum 3.1 g/dL (3.2-5.0); Alkaline Phosphatase 68 U/L (45-117); Anion Gap 8 (5-15); BUN 19 mg/dL (7-18); BUN/Creat Ratio 14.2 RATIO (10-20); Calcium,Total 8.5 mg/dL (8.5-10.1); Chloride 105 mmol/L (98-107); Creatinine, Serum 1.34 mg/dL (0.70-1.30); EST Glomerular Filtration Rate 54 mL/min (>60); Est Glom Filt Rate - Afr Amer 65 mL/min (>60); Estimated Creatinine Clearance 39.64 ml/min; Globulin 3.9 g/dL (2.2-4.2); Glucose 111 mg/dL (74-106); Potassium 2.5 mmol/L (3.5-5.1); Sodium Level 139 mmol/L (136-145)
[2020-12-02 10:18] LABS: CPK Total, Creatine Kinase 1044 U/L (39-308)
--- NOTE | 2020-12-02 10:26 | ED.VIS.GEN ---
History of Present Illness Chief Complaint: Weakness Narrative: Patient presenting for evaluation secondary to generalized weakness. Patient suffered a fall last night. He reports that he basically just became weak and lowered himself to the ground and was unable to get off the ground. He denies that there is any sort of injury associated with this, he states that his made him a bed on the floor and he slept on the floor overnight. States that he has been dealing with some intermittent diarrhea recently. He reports a couple of loose watery stools per day, no blood or mucus. Patient denies nausea or vomiting. He denies that he had any sort of preceding chest pain palpitations. Patient just reports that he feels generally weak. No laterality to his weakness. No numbness or speech difficulty. Review of systems otherwise negative. Past Medical History - Allergies and Home Meds Allergies/Adverse Reactions: Allergies No Known Allergies Allergy (Verified 12/02/20 09:09) Prior records reviewed: Yes Past Medical History: - - Hypertension Surgical History: coronary bypass surgery Lives: Spouse/ Significant Other Smoking Status: Never smoker Alcohol: None Drugs: None Review of Systems All systems negative except as indicated General: Reports: Malaise, - - Generalized weakness Eyes: Denies: Visual changes - bilaterally, Diplopia ENT: Denies: Rhinorrhea, Sore throat Cardiovascular: Denies: Chest pain, Palpitations Respiratory: Denies: Dyspnea, Cough, Dyspnea on exertion Gastrointestinal: Reports: Diarrhea Genitourinary: Denies: Dysuria, Hematuria, Frequency Musculoskeletal: Denies: Back pain, Extremity Pain Skin: Denies: Rash, Wounds Neurological: Denies: Headache, Weakness, Numbness Physical Exam Vital Signs/Narrative: Vital Signs Temp Pulse Resp BP Pulse Ox 12/02/20 09:06 98.1 F 60 16 120/64 91 Inital Vital Signs reviewed: Yes General: Well nourished, Well developed Head: Normocephalic, Atraumatic Eyes: EOMI. Negative for: Pale conjunctiva, Scleral icterus ENT: Dry mucous membranes Neck: Supple, Nontender Cardiovascular: Regular rate, Regular rhythm, Murmur - 2 out of 6 systolic, - - 2+ radial pulses bilaterally symmetric Respiratory: No distress, CTA bilaterally, Chest nontender Abdomen: Soft, Nontender, Nondistended, Normal bowel sounds Back: Nontender, Normal Inspection Extremities: Nontender, No edema Skin: Normal color, No rash Neurological: Alert, Oriented x3, Cranial nerves II-XII grossly intact, Normal Strength, Normal Sensation, - - NIH stroke scale 0 Psychological: Normal affect, Normal Mood Diagnostic/Tx/Re-eval Chest X-Ray - ED: Read by ED Physician, CHF Clinical Impression(s) from Imaging Studies Chest X-Ray 12/02/20 09:15 IMPRESSION: There is pulmonary vascular congestion. There are coarse lung markings, this may be due to chronic lung disease or pulmonary edema, consider acute CHF exacerbation. Electronically Signed: Emmanuel Miller MD at 10:14 EST Tel , Service support , Brain CT 12/02/20 09:19 IMPRESSION: Chronic involutional changes of the brain. Electronically Signed: Emmanuel Miller MD at 10:35 EST Tel , Service support , Laboratory Data 12/02/20 12/02/20 12/02/20 09:35 09:35 09:35 WBC 10.2 RBC 3.09 L Hgb 10.2 L Hct 29.7 L MCV 96.1 H MCH 33.0 H MCHC 34.3 RDW Std Deviation 48.5 H RDW Coeff of Vanesa 13.7 Plt Count 169 MPV 9.8 Immature Gran % (Auto) 0.500 Neut % (Auto) 83.4 H Lymph % (Auto) 6.0 L [place] % (Auto) 9.7 Eos % (Auto) 0.2 Baso % (Auto) 0.2 Absolute Neuts (auto) 8.5 H Absolute Lymphs (auto) 0.61 L Nucleated RBC % 0 Sodium 139 Potassium 2.5 L* Chloride 105 Carbon Dioxide 26.0 Anion Gap 8 BUN 19 H Creatinine 1.34 H Estim Creat Clear Calc 39.64 Est GFR (MDRD) Af Amer 65 Est GFR (MDRD) Non-Af 54 L BUN/Creatinine Ratio 14.2 Glucose 111 H Calcium 8.5 Magnesium Total Bilirubin 1.80 H AST 43 H ALT 39 Alkaline Phosphatase 68 Total Creatine Kinase 1044 H Troponin I 0.163 H Total Protein 7.0 Albumin 3.1 L Globulin 3.9 Albumin/Globulin Ratio 0.8 L 12/02/20 09:35 WBC RBC Hgb Hct MCV MCH MCHC RDW Std Deviation RDW Coeff of Vanesa Plt Count MPV Immature Gran % (Auto) Neut % (Auto) Lymph % (Auto) [place] % (Auto) Eos % (Auto) Baso % (Auto) Absolute Neuts (auto) Absolute Lymphs (auto) Nucleated RBC % Sodium Potassium Chloride Carbon Dioxide Anion Gap BUN Creatinine Estim Creat Clear Calc Est GFR (MDRD) Af Amer Est GFR (MDRD) Non-Af BUN/Creatinine Ratio Glucose Calcium Magnesium 1.3 L Total Bilirubin AST ALT Alkaline Phosphatase Total Creatine Kinase Troponin I Total Protein Albumin Globulin Albumin/Globulin Ratio - EKG Initial EKG Interpretation: - - Atrially paced rhythm with prolonged AV conduction. LVH is noted. Lateral T wave inversions are present which are new from prior EKG. - Medical Decision Making Patient presented secondary to generalized weakness. EKG was obtained which shows new T wave flattening and inversions laterally that are different from prior EKG about a month ago. Patient's laboratory work-up was indicative of hypokalemia. Patient was also noted to have an indeterminately elevated troponin at 0.1. Chest x-ray by my personal review as well as radiology demonstrates congestive heart failure type signs. Patient was started on potassium replacement. I believe patient requires admission. Patient be admitted to telemetry under the hospitalist. ED Disposition - Plan for ED Patient: Disposition: Acute Care Hospital [facility] Diagnosis: Hypokalemia, Acute electrocardiogram changes, Elevated troponin, Congestive heart failure
[2020-12-02] MEDS: Potassium Chloride 10mEq/100mL 10 MEQ/100 ML IV.SOLN. 100 MEQ IV BOLUS ×4 (10:51→14:04)
--- NOTE | 2020-12-02 11:06 | NURSING ---
PCU OBS TERELETSKY HYPOKALEMIA, ELEVATED TROP, EKG CHANGES
--- NOTE | 2020-12-02 12:15 | PCS.PANDOC ---
PANDEMIC DOCUMENTATION INITIATED: Date: 12/02/2020 Time: 1136
[2020-12-02] MEDS: 0.9% Normal Saline 1,000 ML 75 ML IV (12:40)
[2020-12-02 12:57] LABS: Magnesium 1.3 mg/dL (1.6-2.6)
--- NOTE | 2020-12-02 13:47 | NT.THERAPY_ITS ---
Nutrition Therapy Report - History Current diet / nutrition support order:: Regular general - Anthropometric Measurements Height:: 5 ft 10 in Weight:: 65.862 kg Body Mass Index (BMI):: 20.8 - Relevant Labs Relevant Labs:: RBC 3.09 M/mm3 (4.6-6.2) L 12/02/20 09:35 Hgb 10.2 g/dL (13.0-16.5) L 12/02/20 09:35 Hct 29.7 % (40-54) L 12/02/20 09:35 MCV 96.1 fL (80-94) H 12/02/20 09:35 MCH 33.0 pg (27.0-32.0) H 12/02/20 09:35 RDW Std Deviation 48.5 fl (35.1-43.9) H 12/02/20 09:35 Neut % (Auto) 83.4 % (47-70) H 12/02/20 09:35 Lymph % (Auto) 6.0 % (19-41) L 12/02/20 09:35 Absolute Neuts (auto) 8.5 X10^3/uL (2.0-7.7) H 12/02/20 09:35 Absolute Lymphs (auto) 0.61 X10^3/uL (0.83-4.51) L 12/02/20 09:35 Potassium 2.5 mmol/L (3.5-5.1) L* 12/02/20 09:35 BUN 19 mg/dL (7-18) H 12/02/20 09:35 Creatinine 1.34 mg/dL (0.70-1.30) H 12/02/20 09:35 Est GFR (MDRD) Non-Af 54 mL/min (>60) L 12/02/20 09:35 Glucose 111 mg/dL (74-106) H 12/02/20 09:35 Magnesium 1.3 mg/dL (1.6-2.6) L 12/02/20 09:35 Total Bilirubin 1.80 mg/dL (0.20-1.00) H 12/02/20 09:35 AST 43 U/L (15-37) H 12/02/20 09:35 Total Creatine Kinase 1044 U/L (39-308) H 12/02/20 09:35 Troponin I 0.168 ng/mL (<0.045) H 12/02/20 12:55 Albumin 3.1 g/dL (3.2-5.0) L 12/02/20 09:35 Albumin/Globulin Ratio 0.8 RATIO (0.9-2.4) L 12/02/20 09:35 - Assessment Food / Nutrition-Related History:: PO intake at home only fair for past couple of weeks. Pt states Regular diet at home - at first he said that appetite has been pretty good, but then when questioned about wt loss in past 2 wks, pt reports only ~50% intake at most meals. He will drink Boost at home once in awhile. Willing to have ONS w/ meals for increased nutrition if consumed. UBW: 68.039 kg - wt loss of 3.2% x 2 wks. PO intake on PCU to be established. 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 [ End ] - Nutrition Intervention Nutrition Prescription:: [id number] tano/day (RMRx1.3). 65-78 gm pro/day (1-1.2 gm pro/kg). 1800 ml/day (1 ml/tano). [ End ] - Food / Nutrient Delivery Interventions Summary of nutrition intervention:: Will continue liberal Regular diet d/t s/s of malnutrition. Will adjust ONS as needed pending po intake/wt trends. [ End ] Nutrition education provided?: No - MNT Monitoring Further MNT monitoring and evaluation required?: Yes MNT Follow-up in:: 3-5 days - please call RD/LD if questions/concerns @ [phone]
[2020-12-02 14:15] LABS: Mucous, Urine 0 SEEN /hpf (<or=2+)
[2020-12-02 14:16] LABS: Color, Urine Yellow (Yellow); Glucose, Dipstick Normal (Normal); Ketone-Dipstick 5 mg/dl (Negative); Leukocyte Esterase-Dipstick 25 /ul (Negative); Nitrite-Dipstick Negative (Negative); Occult Blood-Urine 150 /ul (Negative); Protein-Dipstick 100 mg/dl (Negative); Urine Bilirubin Dipstick Negative (Negative); Urine Clarity Sl. Cloudy (Clear); Urine Urobilinogen Normal (Normal)
[2020-12-02 14:22] LABS: Bacteria 1+ /hpf (None Seen); Red Blood Cells-Urine 10-25 SEEN /hpf (0-5); Squamous Epithelial Cells - UA 0-5 SEEN /hpf (0-5); White Blood Cells 0-5 SEEN /hpf (0-5)
--- NOTE | 2020-12-02 18:21 | HP.PCM_ITS ---
Problem List (1) Generalized weakness Status: Acute (2) Diarrhea Status: Acute Qualifiers: Diarrhea type: unspecified type Qualified Code(s): R19.7 - Diarrhea, unspecified History of Present Illness Date of Admission: 12/02/20 Chief Complaint: Generalized weakness, diarrhea The patient is a 85 year old M was seen in the emergency room at [facility] with a chief complaint of generalized weakness, he had had diarrhea the night before and according to his , it was a fair amount of diarrhea. Patient try to minimize this on the history he provided to me today but the stated that she cleaned up the bathroom and it was a substantial amount of diarrhea. Patient denies any diarrhea today, he denies any chills or fever. Patient was evaluated in the emergency room and found to have a low potassium at 2.5, patient's creatinine was slightly elevated over his normal creatinine and patient's troponin was slightly elevated at 0.163, CPK was elevated at 1044, bilirubin was elevated at 1.8, and the patient's chest x-ray indicated congestive changes although the patient had no signs or symptoms of congestive heart failure. Patient will be placed in observation status on PCU, I will provide fluids at a low rate, he will receive potassium replacement and his magnesium will be checked. Cardiac enzymes will be cycled, I do not feel the patient is having a coronary event. PT and OT will see the patient. Past Medical History Past Medical History (Chronic Problems): Chronic Problems Presence of cardiac pacemaker (Chronic) Allergies No Known Allergies Allergy (Verified 12/02/20 09:09) Home Medications: Ambulatory Orders Medication Instructions Recorded Acetaminophen [Tylenol Arthritis] 650 mg PO 4X/DAY PRN 11/24/18 Allopurinol [Zyloprim] 200 mg PO DAILY 11/24/18 Atorvastatin Calcium [Lipitor] 40 mg PO QHS 11/24/18 Lisinopril/Hydrochlorothiazide 1 tab PO BID 11/24/18 [Lisinopril-Hctz 20-12.5 mg Tab] Pyridoxine HCl [Vitamin B-6] 100 mg PO DAILY 11/24/18 Apixaban [Eliquis] 2.5 mg PO BID 12/02/20 Surgical History: coronary bypass surgery, - - Pacemaker insertion, intracranial surgery secondary to head bleed Psychiatric History: No pertinent psych hx Lives: Spouse/ Significant Other Smoking Status: Never smoker Tobacco Use: Non-smoker Alcohol: None Drugs: None - *Family History Maternal History Items: Heart Disease Paternal History Items: Cancer - Type unknown Review of Systems Constitutional: Reports: Weakness, Fatigue. Denies: Anorexia, Chills, Fever, Night Sweats, Malaise, Weight Change Eyes: Denies: Cataracts, Conjunctivae Inflammation, Double vision, Drainage HEENT: Denies: Difficulty Swallowing, Dysphasia, Ear Pain, Eye Pain, Hearing Changes, Nasal bleeding, Nasal Congestion, Post Nasal Drip Cardiovascular: Denies: Chest Pain, Claudication, Chest Pressure, Chest Tightness, Edema, Heaviness, Palpitations Respiratory: Denies: Cough, Hemoptysis, Pleuritic Pain, Shortness of Breath, Shortness of breath at rest, Shortness of breath upon exertion Gastrointestinal: Reports: Diarrhea. Denies: Abdominal Pain, Constipation, Hematemesis, Hematochezia, Nausea, Melena, Vomiting Genitourinary: Denies: Dysuria, Frequency, Hematuria, Hesitancy, Nocturia, Retention, Urgency Musculoskeletal: Denies: Back Pain, Foot Pain, Hand Pain, Joint Pain, Joint stiffness, Joint swelling, Joint Tenderness, Leg Pain Skin: Denies: Dryness, Jaundice, Pruritis, Rash Neurological: Denies: Blurred vision, Double vision, Slurred speech, Difficulty swallowing, Focal weakness, Headaches, Incoordination, Numbness, Tingling Psychiatric: Denies: Anxiety, Depression, Homicidal Ideations, Suicidal Ideations Endocrine: Denies: Change in Body Habitus, Heat/ Cold Intolerance, Polydipsia, Polyuria Hematologic/ Lymphatic: Denies: Adenopathy, Anemia, Easy Bruising, Easy Bleeding, Petechiae, Purpura VTE Information - Inpt Only VTE Present on Admission: No VTE Mechan Device Prophylaxis: None VTE Pharm Prophylaxis ordered?: No Reason prophylaxis not ordered:: Treatment Not Indicated - Patient is currently on Eliquis Patient Problems: Active and Suspected Problems Hypokalemia (Acute) Elevated troponin (Acute) Generalized weakness (Acute) Diarrhea (Acute) - Physical Exam Vitals/I&O's: Vital Signs Temp Pulse Resp BP Pulse Ox 98.4 F 62 16 128/51 H 96 12/02/20 16:30 12/02/20 16:30 12/02/20 16:30 12/02/20 16:30 12/02/20 16:30 Oxygen Delivery Method Room Air Weight: 65.862 kg Body Mass Index (BMI) 20.8 Finger Stick Blood Glucose 121 Intake and Output for Last 24 Hours 11/30/20 12/01/20 12/02/20 23:59 23:59 23:59 Intake Total 898.33 / 898.33 Balance 898.33 / 898.33 General: Alert, Oriented x3, Cooperative, No apparent distress, Well developed, Well nourished HEENT: Atraumatic, PERRLA, EOMI, Normocephalic Oral: Moist Mucosa Neck: Supple, No JVD, Negative Carotid Bruits, Trachea Midline, Thyroid Normal Size and Texture Lungs: Clear to auscultation, Normal air movement, No rhonchi, No wheeze Cardiovascular: Regular rate, Regular Rhythm, Normal S1, Normal S2, No murmurs, PMI Normal, No rub noted, No Gallop Abdomen: Bowel Sounds Present, Soft, Non Tender, Non-Distended, No hernias noted Extremities: No clubbing, No cyanosis, No edema, Capillary Refill Less than 3 Seconds Skin: No rashes, No breakdown Musculoskeletal: No Tenderness to Palpation of Joints or Extremities Neurological: Cranial nerves II-XII grossly intact, Neuro grossly intact, Sensory exam intact to light touch and pain, Coordination normal Psych/Mental Status: Normal Affect, Appropriate, Alert and oriented to time, place, person, mood and affect Microbiology Past 72 Hours 12/02/20 09:35 Mucosa - Nose SARS-CoV-2 Antigen (Rapid) - Final Laboratory Results 12/02/20 09:35: WBC 10.2, RBC 3.09 L, Hgb 10.2 L, Hct 29.7 L, MCV 96.1 H, MCH 33.0 H, MCHC 34.3, RDW Std Deviation 48.5 H, RDW Coeff of Vanesa 13.7, Plt Count 169, MPV 9.8, Immature Gran % (Auto) 0.500, Neut % (Auto) 83.4 H, Lymph % (Auto) 6.0 L, [place] % (Auto) 9.7, Eos % (Auto) 0.2, Baso % (Auto) 0.2, Absolute Neuts (auto) 8.5 H, Absolute Lymphs (auto) 0.61 L, Nucleated RBC % 0 12/02/20 09:35: Sodium 139, Potassium 2.5 L*, Chloride 105, Carbon Dioxide 26.0, Anion Gap 8, BUN 19 H, Creatinine 1.34 H, Estim Creat Clear Calc 39.64, Est GFR (MDRD) Af Amer 65, Est GFR (MDRD) Non-Af 54 L, BUN/Creatinine Ratio 14.2, Glucose 111 H, Calcium 8.5, Total Bilirubin 1.80 H, AST 43 H, ALT 39, Alkaline Phosphatase 68, Troponin I 0.163 H, Total Protein 7.0, Albumin 3.1 L, Globulin 3.9, Albumin/Globulin Ratio 0.8 L 12/02/20 09:35: Total Creatine Kinase 1044 H 12/02/20 09:35: Magnesium 1.3 L 12/02/20 12:55: Troponin I 0.168 H 12/02/20 14:09: Urine Color Yellow, Urine Clarity Sl. Cloudy, Urine pH 6.0, Ur Specific [place] 1.020, Urine Protein 100 H, Urine Glucose (UA) Normal, Urine Ketones 5 H, Urine Occult Blood 150 H, Urine Nitrite Negative, Urine Bilirubin Negative, Urine Urobilinogen Normal, Ur Leukocyte Esterase 25 H, Urine RBC 10-25 SEEN, Urine WBC 0-5 SEEN, Ur Squamous Epith Cells 0-5 SEEN, Urine Bacteria 1+, Urine Mucus 0 SEEN 12/02/20 15:18: Troponin I 0.160 H Current Medications Acetaminophen (Acetaminophen 325 Mg Tablet) 650 mg PO 4X/DAY PRN PRN Reason: Pain Score 1-10 Apixaban (Apixaban 2.5 Mg Tablet) 2.5 mg PO BID [facility] Sodium Chloride () 250 mls @ 15 mls/hr IV .[id number] PRN PRN Reason: Saline Flush Sodium Chloride () 250 mls @ 15 mls/hr IV .[id number] PRN PRN Reason: Additional IVPB Infusion Sodium Chloride () 1,000 mls @ 75 mls/hr IV .[id number] [facility] Last Admin: 12/02/20 12:40 Dose: 75 mls/hr Documented by: Magnesium Sulfate () 4 gm in 100 mls @ 25 mls/hr IV X1 ONE Stop: 12/02/20 22:11 Lisinopril (Lisinopril 20 Mg Tablet) 20 mg PO BID [facility] Sodium Chloride (0.9% Saline Lock 10 Ml Syringe) 10 - 40 ml IV UD PRN PRN Reason: SALINE FLUSH Assessment/Plan All Active Problems Hypokalemia (Acute) Acute electrocardiogram changes (Ruled-out) Elevated troponin (Acute) Congestive heart failure (Ruled-out) Generalized weakness (Acute) Diarrhea (Acute) #1 hypokalemia-probably secondary to diarrhea and use of diuretic at home, patient was placed in observation status on PCU potassium will be replaced, labs will be rechecked tomorrow. I have held the patient's diuretic which he takes at home #2 Minor elevation in troponin-I do not know the significance of this, patient has no complaints of any chest pain. Cardiac enzymes will be cycled #3 diarrhea-this is resolved for now, the etiology is unknown, states that nobody else in the family has been sick #4 chronic atrial fibrillation-patient is on Eliquis #5 elevated bilirubin-etiology unclear, I will recheck a CMP in the morning #6 Minor elevation in creatinine, this may be due to some slight dehydration, I will provide the patient fluids overnight at a low rate, I do not feel the patient has congestive heart failure #7 generalized weakness-secondary to electrolyte abnormality, PT and OT will see the patient, he will be reevaluated tomorrow OBSV E&M: [id number] Initial observation care L3
[2020-12-02] MEDS: Magnesium Sulfate 4gm/100mL 4 GM/100 ML IV.SOLN. IV (18:54)
[2020-12-02] MEDS: Lisinopril 20 MG Tablet PO (22:17)
[2020-12-02] MEDS: APIXABAN 2.5 MG TABLET PO (22:17)
[2020-12-03 02:55] VITALS: BP 150/69; PULSE 71; RESP 18; TEMP 37.1; O2SAT 92
[2020-12-03 03:00] VITALS: PULSE 74
[2020-12-03] MEDS: 0.9% Normal Saline 1,000 ML 75 ML IV (04:02)
[2020-12-03 06:46] VITALS: BP 140/70; PULSE 71; RESP 18; TEMP 37.1; O2SAT 93
[2020-12-03 06:49] LABS: ALB/GLOB Ratio 0.8 RATIO (0.9-2.4); AST(SGOT) 55 U/L (15-37); Alanine Aminotransfer ALT/SGPT 46 U/L (16-61); Albumin, Serum 2.7 g/dL (3.2-5.0); Alkaline Phosphatase 62 U/L (45-117); Anion Gap 9 (5-15); BUN 23 mg/dL (7-18); BUN/Creat Ratio 20.2 RATIO (10-20); Calcium,Total 8.1 mg/dL (8.5-10.1); Chloride 110 mmol/L (98-107); Creatinine, Serum 1.14 mg/dL (0.70-1.30); EST Glomerular Filtration Rate 65 mL/min (>60); Est Glom Filt Rate - Afr Amer 79 mL/min (>60); Estimated Creatinine Clearance 44.94 ml/min; Globulin 3.5 g/dL (2.2-4.2); Glucose 114 mg/dL (74-106); Protein, Total 6.2 g/dL (6.4-8.2); Sodium Level 141 mmol/L (136-145)
[2020-12-03 07:00] VITALS: PULSE 75
[2020-12-03] MEDS: Lisinopril 20 MG Tablet PO (09:34)
[2020-12-03] MEDS: APIXABAN 2.5 MG TABLET PO (09:34)
[2020-12-03 09:35] VITALS: BP 143/47; PULSE 67; RESP 18; TEMP 37.3; O2SAT 95
--- NOTE | 2020-12-03 11:38 | DCINST_ITS ---
- Discharge Diagnoses Current Active Problems: Current Active and Chronic Problems Hypokalemia (Acute) Elevated troponin (Acute) Generalized weakness (Acute) Diarrhea (Acute) You will use the following diet at home:: No restrictions Your food should be the consistency of: Regular Your liquids should be the consistency of: Regular/Thin Discharge Activity: Return to Normal Activity Weight Bearing Status: Full weight bearing Allergies/Adverse Reactions: Allergies No Known Allergies Allergy (Verified 12/02/20 09:09) Medications to take at Discharge Acetaminophen [Tylenol Arthritis] 650 mg PO 4X/DAY PRN 11/24/18 Allopurinol [Zyloprim] 200 mg PO DAILY 11/24/18 Atorvastatin Calcium [Lipitor] 40 mg PO QHS 11/24/18 Pyridoxine HCl [Vitamin B-6] 100 mg PO DAILY 11/24/18 Apixaban [Eliquis] 2.5 mg PO BID 12/02/20 Lisinopril [Zestril] 20 mg PO BID #60 tab 12/03/20 The following prescriptions were given: Lisinopril [Zestril] 20 mg PO BID #60 tab Transmission Status: Pending to [id number] Primary Care Physician: Kota Mercado MD [Primary Care Provider] - Please follow up with your Primary Care Physician in: in 1-2 weeks-get a BMP rechecked next week Test Results: Test results from this visit will be discussed in further detail at your follow- up appointment, if applicable.
--- NOTE | 2020-12-03 12:11 | PHA.DC.MC ---
Pharmacy Service has performed discharge medication reconciliation and counseling for this patient. The patient was counseled on the following discharge medications and changes in medications for homegoing were reviewed. 1. LISINOPRIL --> STOPPING HOME LISINOPRIL/HCTZ The Reason for Use, instructions for use, and potential side effects were reviewed for all new medications. The patient's questions regarding all of their medications were answered. The patient was able to verbally demonstrate an understanding of their discharge medications. Home Medications Acetaminophen [Tylenol Arthritis] 650 mg PO 4X/DAY PRN 11/24/18 Allopurinol [Zyloprim] 200 mg PO DAILY 11/24/18 Atorvastatin Calcium [Lipitor] 40 mg PO QHS 11/24/18 Pyridoxine HCl [Vitamin B-6] 100 mg PO DAILY 11/24/18 Apixaban [Eliquis] 2.5 mg PO BID 12/02/20 Lisinopril [Zestril] 20 mg PO BID #60 tab 12/03/20 The patient's discharge medication list was reviewed for discrepancies and discrepancies were resolved.
--- NOTE | 2020-12-04 14:30 | PCM.DC.SUM ---
Discharge Date and Diagnosis - Problem List Patient Problems: Active and Suspected Problems Hypokalemia (Acute) Elevated troponin (Acute) Generalized weakness (Acute) Diarrhea (Acute) Date of Admission: 12/02/20 Date of Discharge: 12/03/20 - Primary Discharge Diagnosis Acute Problems: Active Problems #1 hypokalemia- secondary to diarrhea and use of diuretic at home #2 Minor elevation in troponin-insignificant #3 diarrhea-etiology unknown #4 chronic atrial fibrillation #5 elevated bilirubin-etiology unclear #6 mild dehydration #7 generalized weakness-secondary to electrolyte abnormality, PT and OT will see the patient, he will be reevaluated tomorrow #8 hypomagnesemia - Secondary Discharge Diagnosis Chronic Problems: Chronic Problems Presence of cardiac pacemaker (Chronic) Hospital Course and Treatment Operations: None Procedures: None Summary of Care Provided: The patient is a 85 year old M emergency room at [facility] with a chief complaint of generalized weakness and diarrhea x24 hours. Work-up in the emergency room showed the patient to be hypokalemic, he had minor elevation of his troponin, and he had an elevated bilirubin. In addition patient had a minor elevation in his creatinine. Patient was placed in the observation status on PCU, serum magnesium was obtained and was found to be low, patient was given supplemental potassium replacement, he was given IV fluids, and he was seen by PT and OT. Patient improved during his hospital stay. It was felt that the patient's electrolyte abnormalities were due to use of diuretics at home with concomitant diarrhea. The etiology of the patient's diarrhea was never determined and he had no significant episodes while he was in the hospital. On 12/03/2020, patient was seen and examined: On examination he appeared in good health and spirits. Vital signs as documented. Skin warm and dry and without overt rashes. Neck without JVD, neck was supple, trachea midline, thyroid was normal. Lungs clear bilaterally, normal air movement was noted. Heart exam notable for irregular rhythm, normal sounds and absence of murmurs, rubs or gallops. Abdomen unremarkable and without evidence of organomegaly, masses, or abdominal aortic enlargement. Bowel sounds are present, abdomen is not distended. Extremities nonedematous, no cyanosis was noted, no clubbing was noted. Neuro: Cranial nerves II through XII are grossly intact, no focal motor deficits were noted, sensation to light touch and pinprick intact, motor exam 5/5 throughout. Psych: Patient is alert and oriented x3, he does not appear anxious or depressed, he does not appear agitated. On 12/03/2020, patient was seen and examined and felt to be stable for discharge home Patient Problems: Active and Suspected Problems Hypokalemia (Acute) Elevated troponin (Acute) Generalized weakness (Acute) Diarrhea (Acute) - Physical Exam Vitals/I&O's: Vital Signs Temp Pulse Resp BP Pulse Ox 99.2 F H 67 18 143/47 H 95 12/03/20 09:35 12/03/20 09:35 12/03/20 09:35 12/03/20 09:35 12/03/20 09:35 Oxygen Delivery Method Room Air Weight: 65.862 kg Body Mass Index (BMI) 20.8 Finger Stick Blood Glucose 121 Intake and Output for Last 24 Hours 12/02/20 12/03/20 12/04/20 23:59 23:59 23:59 Intake Total 1248.33 / 1368.33 2094 Balance 1248.33 / 1368.33 2094 Microbiology Past 72 Hours 12/02/20 09:35 Mucosa - Nose SARS-CoV-2 Antigen (Rapid) - Final Discharge Activity: Return to Normal Activity Weight Bearing Status: Full weight bearing Home Medications: Medications to take at Discharge Acetaminophen [Tylenol Arthritis] 650 mg PO 4X/DAY PRN 11/24/18 Allopurinol [Zyloprim] 200 mg PO DAILY 11/24/18 Atorvastatin Calcium [Lipitor] 40 mg PO QHS 11/24/18 Pyridoxine HCl [Vitamin B-6] 100 mg PO DAILY 11/24/18 Apixaban [Eliquis] 2.5 mg PO BID 12/02/20 Lisinopril [Zestril] 20 mg PO BID #60 tab 12/03/20 Following Prescriptions Were Given to Patient: Lisinopril [Zestril] 20 mg PO BID #60 tab Transmission [facility]: [id number] Primary Care Physician: Kota Mercado MD [Primary Care Provider] - Please follow up with your Primary Care Physician in: in 1-2 weeks-get a BMP rechecked next week Disposition: Home Minutes spent on discharge:: 30 Patient Condition:: Stable Medical Necessity - Tobacco Use Smoking Status: Never smoker Tobacco Use: Non-smoker Meaningful Use Info Meaningful Use Diagnoses (Choose all that apply): None applicable OBSV E&M: 57442 Observation care discharge
== END 2020-12-03 11:39 | disposition home or self-care (01) ==
LOC: ED 10:28 → PCU 14:06
PROVIDERS: Admitting Provider Internal Medicine; Emergency Provider Emergency Medicine; PCP Family Medicine; Visit Provider Internal Medicine
DX: E87.6 Hypokalemia (principal); R19.7 Diarrhea, unspecified; I48.20 Chronic atrial fibrillation, unspecified; E86.0 Dehydration; E83.42 Hypomagnesemia; Z79.899 Other long term (current) drug therapy; Z79.01 Long term (current) use of anticoagulants; I11.0 Hypertensive heart disease with heart failure; I50.9 Heart failure, unspecified; Z95.0 Presence of cardiac pacemaker
CPT/HCPCS: 36415; 70450; 71045; 80053; 81001; 82550; 83735; 84484; 85025; 87426; 93005; 96360; 96361; 97110; 97162; 97166; 97535; 97802; 99218; 99285; J7030; A4216; G0378

== ENCOUNTER 2022-01-05 15:39 | Emergency (ER) | payer MEDICARE, OTHER, SELFPAY ==
[2022-01-05] VITALS (9 sets, daily range): BP systolic 142–173; BP diastolic 79–103; PULSE 66–82; RESP 17–30; TEMP 35.8–36.7; O2SAT 92–100; BMI 22.3
[2022-01-05 16:24] LABS: Absolute Lymphocyte Count 0.93 X10^3/uL (0.83-4.51); Absolute Neutrophil Count 4.4 X10^3/uL (2.0-7.7); Basophil# 0.03 X10^3/uL; Basophil% 0.5 % (0-1); Eosinophil# 0.13 X10^3/uL; Eosinophils% 2.1 % (0-5); Hematocrit 31.9 % (40-54); Hemoglobin 10.4 g/dL (13.0-16.5); Lymphocyte # 0.93 X10^3/ul (0.83-4.51); Lymphocyte % 15.3 % (19-41); Mean Corp Hgb Conc 32.6 g/dL (32-36); Mean Corpuscular Hgb 32.5 pg (27.0-32.0); Mean Corpuscular Volume 99.7 fL (80-94); Mean Platelet Vol. 9.3 fl (6.2-12.0); Monocyte# 0.56 X10^3/uL; Monocyte% 9.2 % (0-10); NRBC Flagged by Analyzer 0 % (0-5); Neutrophil # 4.42 X10^3/uL (2.7-7.7); Neutrophil % 72.6 % (47-70); Platelet Count 227 K/mm3 (150-450); RBC Distribution Width CV 15.6 % (11.6-14.6); RBC Distribution Width SD 56.2 fl (35.1-43.9); White Blood Count 6.1 K/mm3 (4.4-11.0)
--- NOTE | 2022-01-05 16:27 | EKG12_ITS ---
Test Reason : SOB Blood Pressure : / mmHG Vent. Rate : 070 BPM Atrial Rate : 258 BPM P-R Int : 000 ms QRS Dur : 110 ms QT Int : 456 ms P-R-T Axes : 092 -26 118 degrees QTc Int : 492 ms Suspect unspecified pacemaker failure Atrial flutter with variable A-V block with frequent ventricular-paced complexes and with premature v entricular or aberrantly conducted complexes Voltage criteria for left ventricular hypertrophy Nonspecific ST and T wave abnormality Prolonged QT Abnormal ECG Confirmed by BERTHA MENSAH, JOSE ([id number]), scientific editor SHANELL HUFFMAN ([id number]) on 01/08/2022 10:02:15 AM Referred By: MARYJO Confirmed By:JOSE STONE MD
--- NOTE | 2022-01-05 16:30 | ED.VIS.DYS ---
HPI History of Present Illness Chief Complaint: Shortness of Breath Informant: patient and spouse/S.O. Narrative Narrative: Patient presents with some cough and shortness of breath. He states that for about 3 weeks he has had some nasal congestion and drainage. He has a history of sinus. He states he gets drainage and that makes him cough. He and his verify its been a mild cough. He is not really bringing up any sputum but he will cough up some nasal drainage. No blood. He is on Eliquis and taking it for history of A. fib. He is not having chest pain although he states sometimes he does ever since he had bypass surgery. But that is not bothering him now. He came in today because he started to feel short of breath over the last day or 2. Although he has had drainage and coughing for 3 weeks he just started feeling short of breath. He denies black or bloody stools. He does note that he has been told he is anemic. He used to be on iron supplements but he was told they caused him to have GI bleeding so they were stopped. He and his family do feel he looks paler than normal. Nothing really makes his symptoms better or worse. [facility] Medical History (Updated 01/05/22 @ 19:[address] Sean Galo MD) Acute electrocardiogram changes Brain bleed Congestive heart failure Diarrhea Elevated troponin Generalized weakness Hypokalemia Presence of cardiac pacemaker Home Medications allopurinol 200 mg PO DAILY 11/24/18 [History Last Taken 12/02/20 08:30] atorvastatin 40 mg PO QHS 11/24/18 [History Last Taken 12/01/20 21:00] pyridoxine (vitamin B6) 100 mg PO DAILY 11/24/18 [History Last Taken 12/02/20 08:30] apixaban 2.5 mg PO BID 12/02/20 [History Last Taken 12/02/20 08:30] albuterol sulfate 90 mcg/actuation aerosol inhaler 2 puff INHALATION Q4H PRN #8.5 g 12/25/20 [Rx Last Taken Unknown] apple cider vinegar 500 mg tablet mg PO 12/25/20 [History Last Taken Unknown] ascorbate calcium (vitamin C) 500 mg tablet 500 mg PO BID 12/25/20 [History Last Taken Unknown] calcium carbonate 600 mg calcium (1,500 mg) tablet 600 mg PO DAILY 12/25/20 [History Last Taken Unknown] cholecalciferol (vitamin D3) 25 mcg (1,000 unit) capsule 75 mcg PO DAILY cap 12/25/20 [History Last Taken Unknown] citicoline 500 mg capsule mg PO 12/25/20 [History Last Taken Unknown] coenzyme Q42-fitcmhb E 100 mg-100 unit capsule cap PO 12/25/20 [History Last Taken Unknown] garlic 1,000 mg capsule 1,000 mg PO QPC 12/25/20 [History Last Taken Unknown] losartan 50 mg tablet 50 mg PO BID 12/25/20 [History Last Taken Unknown] magnesium chloride 64 mg tablet,extended release 64 mg PO DAILY 12/25/20 [History Last Taken Unknown] mecobalamin (vitamin B12) 1,000 mcg disintegrating tablet,sublingual 1,000 mcg SUBLINGUAL DAILY 12/25/20 [History Last Taken Unknown] metoprolol tartrate 50 mg tablet 50 mg PO BID 12/25/20 [History Last Taken Unknown] spironolactone 100 mg tablet 100 mg PO DAILY 12/25/20 [History Last Taken Unknown] zinc 50 mg tablet 50 mg PO DAILY 12/25/20 [History Last Taken Unknown] benzonatate 200 mg PO BID PRN #10 cap 01/05/22 [Rx Last Taken Unknown] furosemide [Lasix] 20 mg PO DAILY #7 tab 01/05/22 [Rx Last Taken Unknown] potassium chloride 20 meq PO BID #14 tab 01/05/22 [Rx Last Taken Unknown] Allergy/AdvReac Type Severity Reaction Status Date / Time No Known Allergies Allergy Verified 01/05/22 15:40 Surgical History History of brain surgery History of heart bypass surgery Social History Smoking Status: Never smoker ROS ROS ED Constitutional Constitutional ED: Denies chills, fever(s) or sweats Eyes Eyes: Denies change in vision ENT ENT ED: Reports rhinorrhea and other Details: Patient does have some nasal congestion posterior drainage. But no sore throat. ; Denies ear pain or sore throat Cardiovascular Cardiovascular: Reports other Details: He has a history of A. fib but no palpitations clinically. ; Denies chest pain or palpitations Respiratory/Chest Respiratory/Chest: Reports cough and dyspnea; Denies sputum Gastrointestinal Gastrointestinal: Denies abdominal pain, melena, nausea or vomiting Genitourinary Genitourinary ED: Denies hematuria Musculoskeletal Musculoskeletal: Denies myalgias Integumentary Denies rash Neurologic Neurologic: Denies headache(s) Psychiatric Psychiatric: Denies anxiety or depression Endocrine Endocrinology: Denies polydipsia or polyuria Hematologic/Lymphatic Hematologic/Lymphatic: Reports easy bleeding and easy bruising Allergic/Immunologic Allergic/Immunologic ED: Denies urticaria EXAM Physical Exam Const Vital Signs: 01/05/22 15:41 01/05/22 16:17 01/05/22 16:21 Temperature 96.5 F L Temperature Source Temporal Pulse Rate 82 75 Respiratory Rate 17 19 H 17 Respiratory Effort Respiratory Depth Respiratory Pattern Blood Pressure 142/103 H 173/85 H Blood Pressure Mean 116 114 Pulse Ox 100 93 92 Oxygen Delivery Method Room Air Room Air Room Air 01/05/22 16:22 01/05/22 16:41 01/05/22 17:37 Temperature Temperature Source Pulse Rate 70 82 Respiratory Rate 19 H 30 H Respiratory Effort Normal Non-Labored Respiratory Depth Normal Respiratory Pattern Normal Blood Pressure 150/85 H Blood Pressure Mean 106 Pulse Ox 98 95 Oxygen Delivery Method Room Air Room Air Room Air 01/05/22 18:00 01/05/22 18:32 01/05/22 19:27 Temperature 98.1 F Temperature Source Temporal Pulse Rate 79 66 Respiratory Rate 25 H 17 Respiratory Effort Respiratory Depth Respiratory Pattern Blood Pressure 156/79 H 156/79 H Blood Pressure Mean 104 104 Pulse Ox 92 97 Oxygen Delivery Method Room Air Room Air Positive well nourished; Negative for unkempt Constitutional Narrative: Patient looks to be in no acute distress. However, he does look pale to me. General Appearance ED: NAD and pallor; Negative for unkempt HEENT Reports moist mucous membranes HEENT Narrative: Mild nasal congestion but no obstruction. No notable sinus tenderness. atraumatic Eyes General Eye ED: Yes pale conjunctiva Neck no JVD Resp normal respiratory effort and clear to auscultation bilaterally Resp Narrative: Overall, lungs sound quite clear Auscultation: Negative for rales, rhonchi or wheezes GI non-tender GI Narrative: Rectal exam was done. There is really no tenderness. There is really no notable stool. I will send off Hemoccult. Palpation: soft Back/Spine normal to inspection Extremity normal to inspection General Extremety ED: Negative for edema or tenderness General Extremity: Negative for edema Neuro oriented x3 Sensorium / Orientation: alert Psych mental status grossly normal Appearance: Negative for unkempt Skin General Skin Exam: pallor Lesions: no lesions Rashes: no rashes MDM MDM MDM Narrative Medical decision making narrative: Blood work showed baseline anemia. He does not have a white count. Electrolytes showed low potassium which he always has. Creatinine is still preserved. Troponins. His BNP was high though. However, his x-ray did not show significant CHF. We ambulated him and his saturations went from 92% up to 94% and he felt well. Patient is already on apixaban. He does not want to come in the hospital. With his symptoms and labs and x-ray we will start him on a low-dose of Lasix. I will also add potassium. I will give him a few Tessalon Perles for cough which she would like. We discussed with him and his family multiple reasons that would bring him back in the hospital. He should not hesitate. He states he has been told before he has had congestive heart failure but does not think he has ever been treated for it. But I do see he is on spironolactone. We will add a low-dose of Lasix with this. Lab Data Attestation: I reviewed the patient's lab results. Labs: Laboratory Results - last 24 hr 01/05/22 01/05/22 01/05/22 16:15 16:15 16:15 WBC 6.1 RBC 3.20 L Hgb 10.4 L Hct 31.9 L MCV 99.7 H MCH 32.5 H MCHC 32.6 RDW Std Deviation 56.2 H RDW Coeff of Vanesa 15.6 H Plt Count 227 MPV 9.3 Immature Gran % (Auto) 0.300 Neut % (Auto) 72.6 H Lymph % (Auto) 15.3 L Crane % (Auto) 9.2 Eos % (Auto) 2.1 Baso % (Auto) 0.5 Absolute Neuts (auto) 4.4 Absolute Lymphs (auto) 0.93 Nucleated RBC % 0 Sodium 142 Potassium 2.9 L Chloride 110 H Carbon Dioxide 27.0 Anion Gap 5 BUN 20 H Creatinine 1.30 Estim Creat Clear Calc 41.43 Est GFR (MDRD) Af Amer 67 Est GFR (MDRD) Non-Af 56 L BUN/Creatinine Ratio 15.4 Glucose 114 H Calcium 8.8 Troponin I High Sens 48 B-Natriuretic Peptide Blood Type Antibody Screen 01/05/22 01/05/22 16:15 16:30 WBC RBC Hgb Hct MCV MCH MCHC RDW Std Deviation RDW Coeff of Vanesa Plt Count MPV Immature Gran % (Auto) Neut % (Auto) Lymph % (Auto) Crane % (Auto) Eos % (Auto) Baso % (Auto) Absolute Neuts (auto) Absolute Lymphs (auto) Nucleated RBC % Sodium Potassium Chloride Carbon Dioxide Anion Gap BUN Creatinine Estim Creat Clear Calc Est GFR (MDRD) Af Amer Est GFR (MDRD) Non-Af BUN/Creatinine Ratio Glucose Calcium Troponin I High Sens B-Natriuretic Peptide 2015.4 H Blood Type A POSITIVE Antibody Screen NEGATIVE Radiography Diagnostic Testing: Clinical Impression(s) from Imaging Studies Chest X-Ray 01/05/22 16:50 IMPRESSION: No active disease. Electronically Signed: Myles Carias MD at 17:08 EDT , EKG Initial EKG: Comments: EKG done for history of a fib and dyspnea. EKG read by me shows atrial flutter with variable block and frequent PVCs. He also has paced complexes. No acute ST elevation or depression. QRS duration is normal. QTc is slightly long at 492 ms. Discharge Plan Triage Chief Complaint: Shortness of Breath ED Provider: Sean Galo Dx/Rx/DC Orders Clinical Impression: Congestive heart failure, Hypokalemia Instructions: ED Heart Failure, Congestive (CHF) Prescriptions: New furosemide [Lasix] 20 mg tablet 20 mg PO DAILY Qty: 7 RF: 0 potassium chloride 20 mEq tablet extended release 20 meq PO BID Qty: 14 RF: 0 benzonatate 200 mg capsule 200 mg PO BID PRN (Reason: cough) Qty: 10 RF: 0 No Action metoprolol tartrate 50 mg tablet 50 mg PO BID RF: 0 losartan 50 mg tablet 50 mg PO BID RF: 0 mecobalamin (vitamin B12) 1,000 mcg tablet,disintegrating 1,000 mcg SUBLINGUAL DAILY RF: 0 spironolactone 100 mg tablet 100 mg PO DAILY RF: 0 magnesium chloride 64 mg tablet,extended release 64 mg tablet extended release 64 mg PO DAILY RF: 0 cholecalciferol (vitamin D3) 25 mcg (1,000 unit) capsule 75 mcg PO DAILY RF: 0 zinc 50 mg tablet 50 mg PO DAILY RF: 0 ascorbate calcium (vitamin C) 500 mg tablet 500 mg PO BID RF: 0 garlic 1,000 mg capsule 1,000 mg PO QPC RF: 0 calcium carbonate [Calcium 600] 600 mg calcium (1,500 mg) tablet 600 mg PO DAILY RF: 0 apple cider vinegar 500 mg tablet 500 mg tablet PO RF: 0 coenzyme [id number] E 100 mg-100 unit capsule 100-100 mg-unit capsule PO RF: 0 Cognitive Health 500 mg capsule PO RF: 0 albuterol sulfate 90 mcg/actuation HFA aerosol inhaler 2 puff INHALATION Q4H PRN (Reason: shortness of breath or wheezing) Qty: 8.5 RF: 6 atorvastatin 40 MG tablet 40 mg PO QHS RF: 0 allopurinol 100 MG tablet 200 mg PO DAILY RF: 0 pyridoxine (vitamin B6) 100 MG tablet 100 mg PO DAILY RF: 0 apixaban 2.5 MG tablet 2.5 mg PO BID RF: 0 Primary Care Provider: Yris Culver Referrals: Yris Culver MD [Primary Care Provider] - 3-5 Days Disposition Disposition: Home, Self Care
[2022-01-05 16:37] LABS: Anion Gap 5 (5-15); BUN 20 mg/dL (7-18); BUN/Creat Ratio 15.4 RATIO (10-20); Calcium,Total 8.8 mg/dL (8.5-10.1); Chloride 110 mmol/L (98-107); EST Glomerular Filtration Rate 56 mL/min (>60); Est Glom Filt Rate - Afr Amer 67 mL/min (>60); Estimated Creatinine Clearance 41.43 ml/min; Glucose 114 mg/dL (74-106); Potassium 2.9 mmol/L (3.5-5.1); Sodium Level 142 mmol/L (136-145)
[2022-01-05] MEDS: Ipratropium/Albuterol Sulfate 3 ML AMPUL.NEB INHALATION (16:38)
--- NOTE | 2022-01-05 16:50 | RAD_ITS ---
STUDY: X-RAY CHEST REASON FOR EXAM: Male, 86 years old. SOB TECHNIQUE: Single AP portable view of the chest. COMPARISON: 12/02/2020 FINDINGS: Left subclavian pacemaker which is unchanged. Status post median sternotomy. The lungs are clear and expanded. There is no demonstrated pleural abnormality. There is moderate cardiac enlargement. Normal mediastinum and moise. Normal visualized pulmonary arteries. Normal visualized aortic arch and descending thoracic aorta. Normal visualized thoracic spine. Normal visualized ribs, clavicles, and shoulders. There is no demonstrated abnormality of the visualized soft tissue structures of the upper abdomen. RAD/Chest 1 View (Portable) IMPRESSION: No active disease. Electronically Signed: Myles Carias MD at 17:08 EDT ,
[2022-01-05 17:01] LABS: BNP,B-Type NATRIURETIC PEPTIDE 2015.4 pg/mL (0-100)
[2022-01-05 17:02] LABS: Troponin-I HS 48 pg/mL (3.0-78.0)
[2022-01-05] MEDS: Potassium Chloride Oral Tablet 20 MEQ 40 MEQ PO (17:35)
[2022-01-05] MEDS: Furosemide 20 MG/2 ML VIAL IV (20:06)
--- NOTE | 2022-01-06 15:15 | CM.ED ---
ER RNCM DC F/u call: Called patient's listed home number, answered by patient Deirdre and then handed to patient. Patient with coughing spell during call and asked this display card writer to s/w for remainder of conversation. Patient was f/u by RICHARD Pressley with his PCP today. States started taking the medications that the ER provider proscribed him today and hoping it will start working soon. Patient is feeling the same, not worse and not better. Two dtrs down visiting at this time and able to help. Has a f/u appt with bridge club manager in April and RICHARD Pressley was going to call bridge club manager and go over everything. Has another appt with RICHARD Pressley on 01.13.22. Informed and states understanding for patient to return to ER for any worsening. RANJAN Simeon
== END 2022-01-05 20:14 | disposition home or self-care (01) ==
PROVIDERS: Emergency Provider Emergency Medicine; PCP Internal Medicine; Visit Provider Emergency Medicine
DX: I50.9 Heart failure, unspecified (principal); I48.92 Unspecified atrial flutter; I48.91 Unspecified atrial fibrillation; E87.6 Hypokalemia; Z95.0 Presence of cardiac pacemaker; Z79.01 Long term (current) use of anticoagulants; Z79.899 Other long term (current) drug therapy; I49.3 Ventricular premature depolarization; D64.9 Anemia, unspecified; R09.81 Nasal congestion; Z87.19 Personal history of other diseases of the digestive system
CPT/HCPCS: 71045; 80048; 82274; 83880; 84484; 85025; 86850; 86900; 86901; 87811; 93005; 94640; 94760; 96374; 99285; A4216; J1940

== ENCOUNTER → 2022-03-27 | Outpatient (CLI) | payer MEDICARE, OTHER, SELFPAY ==
--- NOTE | 2022-03-27 06:33 | ECHOD_ITS ---
Reason For Study: S/P CABG Procedure This was a 2D Doppler, Color Flow transthoracic echocardiogram. Exam performed in department. Left Ventricle Normal LV size. The estimated ejection fraction is 20 %. There is severe global hypokinesis of the left ventricle. Right Ventricle Normal RV size. ICD or pacer leads identified within the right ventricle. Normal systolic function. Atria The left atrium is mildly enlarged. The right atrium is mildly enlarged. Mitral Valve Normal mitral valve. Mild-Moderate (1-2+) eccentric mitral valve insufficiency. Tricuspid Valve Normal tricuspid valve. Mild (1+) tricuspid valve insufficiency. Pulmonary artery systolic pressure is 44 mmHg. Aortic Valve Trisinus/trileaflet aortic valve. Great Vessels Normal aortic root. The pulmonary artery is normal size. Normal inferior vena cava. Pericardium/Pleural No pericardial effusion. MMode/2D Measurements & Calculations LVIDd: 5.1 cm IVSd: 0.95 cm LA dimension: 4.8 cm LVIDs: 4.9 cm LVPWd: 1.0 cm RVDd: 3.6 cm FS: 4.0 % LAV(MOD-bp): 82.2 ml LVAd ap4: 38.1 cm2 SV(MOD-sp4): 24.9 ml LAV(MOD-bp) Indexed: 44.5 ml/m2 LVLd ap4: 8.3 cm LAV(MOD-sp2): 78.5 ml EDV(MOD-sp4): 140.3 ml LAV(MOD-sp4): 79.3 ml EDV(sp4-el): 148.1 ml LVAs ap4: 34.3 cm2 LVLs ap4: 8.2 cm ESV(MOD-sp4): 115.4 ml ESV(sp4-el): 122.2 ml EF(MOD-sp4): 17.7 % EF(sp4-el): 17.5 % SV(sp4-el): 25.9 ml LA A4 area: 23.8 cm2 RA A4 area: 22.1 cm2 Doppler Measurements & Calculations MV E max darrius: 87.6 cm/sec Ao V2 max: 85.4 cm/sec AI max darrius: 343.0 cm/sec Ao max P.9 mmHg AI max P.0 mmHg AI dec slope: 242.6 cm/sec2 AI P1/2t: 414.0 msec LV V1 max: 60.1 cm/sec MR max darrius: 525.1 cm/sec PA V2 max: 55.9 cm/sec LV V1 max P.4 mmHg MR max P.3 mmHg MR mean darrius: 371.3 cm/sec MR mean P.1 mmHg MR VTI: 157.4 cm TR max darrius: 314.2 cm/sec TR max P.9 mmHg ECHO/Echo Complete Interpretation Summary Normal LV size. The estimated ejection fraction is 20 %. There is severe global hypokinesis of the left ventricle. Mild-Moderate (1-2+) eccentric mitral valve insufficiency. Pulmonary artery systolic pressure is 44 mmHg. Compared to the previous echocardiogram done at an outside facility from 2019 t he left ventricular ejection fraction is markedly reduced. Ordering Physician: Destin Harvey Referring Physician: Yris Culver M.D. Performed By: Josh Herman RCS
--- NOTE | 2022-03-27 15:47 | STRESSREP ---
Stress Test Report Pharmacologic myocardial perfusion stress test. 86-year-old male with a history of ischemic cardiomyopathy status post pacemaker implantation. Resting EKG demonstrates atrial fibrillation with a rate of 73 bpm ventricular pacing resting blood pressures 142/90 mmHg. 0.4 mg of regadenoson was infused per usual protocol followed by Intravenous saline flush injection continuous EKG monitoring was performed. The maximum heart rate attained was noted to be 116 bpm. The maximum workload was 1 metabolic equivalent. At rest there were no ST or T wave changes noted to suggest abnormal flow reserve and at peak infusion nonspecific ST changes were noted with did not meet the criteria for ischemia. Occasional premature ventricular complexes as well as pacemaker spikes were noted. Myocardial perfusion protocol. 14.3 mCi of technetium 99m sestamibi was injected at rest. 0.4 mg of regadenoson was infused per usual protocol. At peak infusion 44.2 mCi of technetium 99m sestamibi was injected stress images were obtained stress and rest images were reconstructed and compared in the short axis vertical long and horizontal long axis. Gated images were also obtained to Perfusion SPECT analysis: Review of the stress images demonstrate normal uptake of tracer noted in all areas of the myocardium except for a small portion of the apex with reduced perfusion. The rest of the galeana appear to be normally perfused. The ventricle appears to be dilated. The resting images demonstrate a similar pattern and no areas are noted to suggest ischemia. Gated SPECT analysis: The gated ejection fraction is 24%. Conclusion: Cardiomyopathy present. No obvious ischemia present.
== END | disposition home or self-care (01) ==
LOC: CVS 06:28
PROVIDERS: PCP Internal Medicine; Referring Provider Internal Medicine Cardiovascular Disease; Visit Provider Internal Medicine Cardiovascular Disease
DX: I25.10 Atherosclerotic heart disease of native coronary artery without angina pectoris (principal); R94.31 Abnormal electrocardiogram [ECG] [EKG]
CPT/HCPCS: 78452; 93017; 93306; A9500; A4216; J2785

== ENCOUNTER 2022-05-07 16:59 | Inpatient (IN) | payer MEDICARE, OTHER, SELFPAY ==
[2022-05-07 17:00] VITALS: BP 123/75; PULSE 109; RESP 16; TEMP 37.4; O2SAT 99; BMI 20.9
[2022-05-07 17:02] VITALS: BP 137/64; PULSE 109; RESP 14; TEMP 37.3; O2SAT 96
--- NOTE | 2022-05-07 17:31 | EDS_ITS ---
HPI <MICHAEL Moreno - Last Filed: 05/07/22 18:31> History of Present Illness Chief Complaint: Weakness Narrative Narrative: 86-year-old male with past medical history of CABG, CHF, pacemaker presents with generalized weakness. Yesterday he was complaining of headache but today seem to sleep more and was too weak to ambulate with a cane and had to use a walker. Today he also developed a productive cough and 1 episode of nonbloody diarrhea. No fever or chills, chest pain or shortness of breath, abdominal pain, or urinary symptoms. No sick contacts. He lives at home with his who provides some of this history. [facility] <MICHAEL Moreno - Last Filed: 05/07/22 18:31> [facility] Medical History Acute electrocardiogram changes Anemia Brain bleed Carotid artery disease Chronic kidney disease (CKD) Congestive heart failure Diarrhea Elevated troponin Generalized weakness Hypokalemia Home Medications allopurinol 100 mg tablet 200 mg PO DAILY Gout 11/24/18 [History Last Taken 12/02/20 08:30] atorvastatin 40 mg tablet 40 mg PO QHS Cholesterol 11/24/18 [History Last Taken 12/01/20 21:00] pyridoxine (vitamin B6) 100 mg tablet 100 mg PO DAILY Heart 11/24/18 [History Last Taken 12/02/20 08:30] apixaban 2.5 mg tablet 2.5 mg PO BID Blood thinner 12/02/20 [History Last Taken 12/02/20 08:30] albuterol sulfate 90 mcg/actuation aerosol inhaler 2 puff inhalation Q4H PRN shortness of breath or wheezing #8.5 grams 12/25/20 [Rx Last Taken Unknown] ascorbate calcium (vitamin C) 500 mg tablet 500 mg PO BID 12/25/20 [History Last Taken Unknown] calcium carbonate 600 mg calcium (1,500 mg) tablet (Calcium) 600 mg PO DAILY 12/25/20 [History Last Taken Unknown] citicoline 500 mg capsule (Cognitive Health) mg PO 12/25/20 [History Last Taken Unknown] coenzyme [id number] E 100 mg-100 unit capsule cap PO 12/25/20 [History Last Taken Unknown] mecobalamin (vitamin B12) 1,000 mcg disintegrating tablet,sublingual 1,000 mcg sublingual DAILY 12/25/20 [History Last Taken Unknown] zinc 50 mg tablet 50 mg PO DAILY 12/25/20 [History Last Taken Unknown] benzonatate 200 mg capsule 200 mg PO BID PRN cough #10 caps 01/05/22 [Rx Last Taken Unknown] carvedilol 25 mg tablet (Coreg) 25 mg PO BID #180 tabs 03/06/22 [Rx Last Taken Unknown] spironolactone 100 mg tablet 25 mg PO DAILY 03/06/22 [History Last Taken Unknown] cholecalciferol (vitamin D3) 50 mcg (2,000 unit) tablet 50 mcg PO DAILY #1 TAB 03/09/22 [Rx Last Taken Unknown] sacubitril 49 mg-valsartan 51 mg tablet (Entresto) 1 tab PO BID #180 tabs 04/10/22 [Rx Last Taken Unknown] Allergy/AdvReac Type Severity Reaction Status Date / Time No Known Allergies Allergy Verified 05/07/22 17:00 Surgical History History of brain surgery History of coronary artery bypass graft x 3 History of craniotomy History of permanent cardiac pacemaker placement Social History Smoking Status: Never smoker ROS <MICHAEL Moreno - Last Filed: 05/07/22 18:31> ROS ED ROS Narrative Constitutional: Positive for malaise. Negative for fever, chills. Eyes: Negative for visual change. ENT: Negative for sore throat, ear pain, rhinorrhea. CVS: Negative for palpitations, chest pain, syncope. Respiratory: Positive for cough. Negative for shortness of breath, orthopnea. GI: Positive for diarrhea. Negative for abdominal pain, nausea, vomiting, constipation, melena, hematochezia. : Negative for dysuria, hematuria or frequency. Neuro: Negative for headache, motor/sensory dysfunction. Skin: Negative for rash, abscess, or wound. Musc: Negative for joint pain, swelling, trauma. Heme: Negative for easy bruising, bleeding, lymphadenopathy. EXAM <MICHAEL Moreno - Last Filed: 05/07/22 18:31> Physical Exam Narrative Exam Narrative: CONST: Patient sitting in no acute distress. EYES: Normal inspection. ENT: Normal inspection, moist mucous membranes. NECK: Normal inspection. RESP: No respiratory distress, CTAB. CVS: Regular rate and rhythm, no murmur, no gallop. ABD: Soft and nontender, no guarding or rebound, nondistended. SKIN: Color normal, no rash, warm, dry, intact. EXTREMITIES: Normal appearance, no pedal edema. NEURO: Oriented to self and place, did not know the year or the season (differe nt from baseline). Face symmetric, moving all extremities. PSYCH: Normal affect. Const Vital Signs: 05/07/22 17:00 05/07/22 17:00 05/07/22 17:02 Temperature 99.4 F H 99.1 F Temperature Source Temporal Temporal Pulse Rate 109 H 109 H Respiratory Rate 16 14 Respiratory Effort Normal Respiratory Pattern Normal Blood Pressure 123/75 H 137/64 H Blood Pressure Mean 91 88 Pulse Ox 99 96 Oxygen Delivery Method Room Air Room Air 05/07/22 18:02 Temperature 99.2 F H Temperature Source Temporal Pulse Rate 75 Respiratory Rate 20 H Respiratory Effort Respiratory Pattern Blood Pressure 141/78 H Blood Pressure Mean 99 Pulse Ox 93 Oxygen Delivery Method <Dr. Alex Covarrubias MD - Last Filed: 05/07/22 18:32> Physical Exam Const Vital Signs: 05/07/22 17:00 05/07/22 17:00 05/07/22 17:02 Temperature 99.4 F H 99.1 F Temperature Source Temporal Temporal Pulse Rate 109 H 109 H Respiratory Rate 16 14 Respiratory Effort Normal Respiratory Pattern Normal Blood Pressure 123/75 H 137/64 H Blood Pressure Mean 91 88 Pulse Ox 99 96 Oxygen Delivery Method Room Air Room Air 05/07/22 18:02 Temperature 99.2 F H Temperature Source Temporal Pulse Rate 75 Respiratory Rate 20 H Respiratory Effort Respiratory Pattern Blood Pressure 141/78 H Blood Pressure Mean 99 Pulse Ox 93 Oxygen Delivery Method MDM <MICHAEL Moreno - Last Filed: 05/07/22 18:31> [facility] Narrative Medical decision making narrative: Patient presents with generalized weakness, productive cough, and diarrhea that started today. He appears well and nontoxic. He was slightly tachycardic at 109, otherwise normal vital signs. On exam he is alert and oriented x2 which is a change from baseline. He has no focal neurological deficits. His heart is regular, lungs clear, abdomen soft and nontender. Labs show slight leukopenia at 3.9, chronic anemia 10.1, normal electrolytes with MARCOS of 1.98. Chest x-ray is negative for acute process. COVID-19 test is positive which explains his symptoms. Patient is too weak to safely do ADLs at home and is also dehydrated and will require admission. Case discussed with the hospitalist Diagnoses 1. Generalized weakness 2. Dehydration 3. Acute kidney injury 4. COVID-19 Lab Data Attestation: I reviewed the patient's lab results. Labs: Laboratory Results - last 24 hr 05/07/22 05/07/22 17:24 17:24 WBC 3.9 L RBC 3.06 L Hgb 10.1 L Hct 31.2 L MCV 102.0 H MCH 33.0 H MCHC 32.4 RDW Std Deviation 57.7 H RDW Coeff of Vanesa 15.5 H Plt Count 131 L MPV 9.9 Immature Gran % (Auto) 0.300 Neut % (Auto) 73.4 H Lymph % (Auto) 11.5 L [place] % (Auto) 14.0 H Eos % (Auto) 0.5 Baso % (Auto) 0.3 Absolute Neuts (auto) 2.9 Absolute Lymphs (auto) 0.45 L Nucleated RBC % 0 Differential Comment SEE COMMENT Diff Path Review May foll Platelet Estimate SLT DEC RBC Morphology N CHROM Anisocytosis 1+ Macrocytosis 1+ Sodium 138 Potassium 4.0 Chloride 112 H Carbon Dioxide 19.0 L Anion Gap 7 BUN 38 H Creatinine 1.98 H Estim Creat Clear Calc 26.25 Est GFR (MDRD) Af Amer 41 L Est GFR (MDRD) Non-Af 34 L BUN/Creatinine Ratio 19.2 Glucose 130 H Calcium 8.9 Radiography Diagnostic Testing: Clinical Impression(s) from Imaging Studies Chest X-Ray 05/07/22 17:40 IMPRESSION: No acute cardiopulmonary abnormality. Electronically Signed: Jose Plummer MD at 18:06 EDT , ED attending interpretation shows normal heart size, sternotomy wires and pacemaker present, no acute infiltrate. EKG Initial EKG: Attestation: I personally reviewed and interpreted this EKG as follows: Interpretation: Sinus Rhythm Comments: EKG read as a flutter however on ED attending review is he has clear P waves and is sinus tachycardia at 106, no acute ischemia Prior EKG tracings: available for review <Dr. Alex Covarrubias MD - Last Filed: 05/07/22 18:32> [facility] MDM Narrative Medical decision making narrative: Patient presents with generalized weakness, productive cough, and diarrhea that started today. He appears well and nontoxic. He was slightly tachycardic at 109, otherwise normal vital signs. On exam he is alert and oriented x2 which is a change from baseline. He has no focal neurological deficits. His heart is regular, lungs clear, abdomen soft and nontender. Labs show slight leukopenia at 3.9, I have personally performed a face to face assessment of the patient and have reviewed the RAQUEL Note. I performed a substantive portion of the visit including all aspects of the following. My alvarado findings include: History is [86-year-old male that I am seeing with our physician pastry assistant. History of cardiomyopathy with pacemaker. As noted URI symptoms with diarrhea today. Generally weak. Difficulty with ambulating around his home. Denies any vomiting. No fever. Denies any significant shortness of breath nor any chest pain.] Exam is [old male no acute distress. Vital signs stable. Temperature nine 9.4. Pulse ox 99% on room air no hypoxia. He is in no distress. H EENT exam unremarkable neck nontender. Lungs clear to auscultation dry cough. Heart tachycardic rate 105 no murmur. Abdomen soft nontender. Moving all 4 extremities. Calves are nontender without edema or cords. He has generalized weakness but no focal weakness. He is awake and alert.] Medical Decision Making [older male with viral syndrome type symptoms. Labs are consistent with COVID-19. He has dehydration with acute kidney injury. He will be admitted for further treatment and evaluation. Family is comfortable with plan.] Other additions or changes: [None] Lab Data Labs: Laboratory Results - last 24 hr 05/07/22 05/07/22 17:24 17:24 WBC 3.9 L RBC 3.06 L Hgb 10.1 L Hct 31.2 L MCV 102.0 H MCH 33.0 H MCHC 32.4 RDW Std Deviation 57.7 H RDW Coeff of Vanesa 15.5 H Plt Count 131 L MPV 9.9 Immature Gran % (Auto) 0.300 Neut % (Auto) 73.4 H Lymph % (Auto) 11.5 L [place] % (Auto) 14.0 H Eos % (Auto) 0.5 Baso % (Auto) 0.3 Absolute Neuts (auto) 2.9 Absolute Lymphs (auto) 0.45 L Nucleated RBC % 0 Differential Comment SEE COMMENT Diff Path Review May foll Platelet Estimate SLT DEC RBC Morphology N CHROM Anisocytosis 1+ Macrocytosis 1+ Sodium 138 Potassium 4.0 Chloride 112 H Carbon Dioxide 19.0 L Anion Gap 7 BUN 38 H Creatinine 1.98 H Estim Creat Clear Calc 26.25 Est GFR (MDRD) Af Amer 41 L Est GFR (MDRD) Non-Af 34 L BUN/Creatinine Ratio 19.2 Glucose 130 H Calcium 8.9 Radiography Diagnostic Testing: Clinical Impression(s) from Imaging Studies Chest X-Ray 05/07/22 17:40 IMPRESSION: No acute cardiopulmonary abnormality. Electronically Signed: Jose Plummer MD at 18:06 EDT , Discharge Plan Triage Chief Complaint: Weakness ED Midlevel Provider: Parisa Carroll ED Provider: Alex Covarrubias Dx/Rx/DC Orders Prescriptions: No Action mecobalamin (vitamin B12) 1,000 mcg tablet,disintegrating 1,000 mcg SUBLINGUAL DAILY Rx Instructions: place tablet under tongue and allow to dissolve for at least30 secs before swallowing zinc 50 mg tablet 50 mg PO DAILY ascorbate calcium (vitamin C) 500 mg tablet 500 mg PO BID calcium carbonate [Calcium 600] 600 mg calcium (1,500 mg) tablet 600 mg PO DAILY coenzyme [id number] E 100 mg-100 unit capsule 100-100 mg-unit capsule PO Cognitive Health 500 mg capsule PO albuterol sulfate 90 mcg/actuation HFA aerosol inhaler 2 puff INHALATION Q4H PRN (Reason: shortness of breath or wheezing) Qty: 8.5 6RF Rx Instructions: administer with spacer spironolactone 100 mg tablet 25 mg PO DAILY carvedilol [Coreg] 25 mg tablet 25 mg PO BID Qty: 180 3RF Rx Instructions: must administer with a meal/food atorvastatin 40 MG tablet 40 mg PO QHS allopurinol 100 MG tablet 200 mg PO DAILY pyridoxine (vitamin B6) 100 MG tablet 100 mg PO DAILY apixaban 2.5 MG tablet 2.5 mg PO BID Label Comments: TAKE 1 TABLET BY MOUTH TWICE DAILY benzonatate 200 mg capsule 200 mg PO BID PRN (Reason: cough) Qty: 10 0RF cholecalciferol (vitamin D3) 50 mcg (2,000 unit) tablet 50 mcg PO DAILY Qty: 1 0RF Entresto 49-51 mg tablet 1 tab PO BID Qty: 180 4RF Primary Care Provider: Yris Cluver Referrals: Yris Culver MD [Primary Care Provider] -
--- NOTE | 2022-05-07 17:40 | RAD_ITS ---
EXAM: XR CHEST, 1 VIEW CLINICAL INDICATION: cough TECHNIQUE: Frontal view of the chest. This report was created using [employer] report generation technology. COMPARISON: 01/05/2022. FINDINGS: LUNGS AND PLEURAL SPACES: Unremarkable. No consolidation or edema. No pneumothorax. No effusion. HEART: Sternal wires status post coronary artery bypass graft. MEDIASTINUM: Central airways and mediastinal contour are unremarkable. BONES/JOINTS: Unremarkable. SOFT TISSUES: Unremarkable. TUBES, LINES AND DEVICES: No change pacemaker. RAD/Chest 1 View (Portable) IMPRESSION: No acute cardiopulmonary abnormality. Electronically Signed: Jose Plummer MD at 18:06 EDT ,
[2022-05-07 17:44] LABS: Absolute Lymphocyte Count 0.45 X10^3/uL (0.83-4.51); Absolute Neutrophil Count 2.9 X10^3/uL (2.0-7.7); Basophil# 0.01 X10^3/uL; Basophil% 0.3 % (0-1); Eosinophil# 0.02 X10^3/uL; Eosinophils% 0.5 % (0-5); Hematocrit 31.2 % (40-54); Hemoglobin 10.1 g/dL (13.0-16.5); Lymphocyte # 0.45 X10^3/ul (0.83-4.51); Lymphocyte % 11.5 % (19-41); Mean Corp Hgb Conc 32.4 g/dL (32-36); Mean Platelet Vol. 9.9 fl (6.2-12.0); Monocyte# 0.55 X10^3/uL; NRBC Flagged by Analyzer 0 % (0-5); Neutrophil # 2.88 X10^3/uL (2.7-7.7); Neutrophil % 73.4 % (47-70); POSITIVE DIFFERENTIAL YES; Platelet Count 131 K/mm3 (150-450); RBC Distribution Width CV 15.5 % (11.6-14.6); RBC Distribution Width SD 57.7 fl (35.1-43.9); Red Blood Count 3.06 M/mm3 (4.6-6.2); White Blood Count 3.9 K/mm3 (4.4-11.0)
[2022-05-07 17:52] LABS: Anion Gap 7 (5-15); BUN 38 mg/dL (7-18); BUN/Creat Ratio 19.2 RATIO (10-20); Calcium,Total 8.9 mg/dL (8.5-10.1); Chloride 112 mmol/L (98-107); Creatinine, Serum 1.98 mg/dL (0.70-1.30); EST Glomerular Filtration Rate 34 mL/min (>60); Est Glom Filt Rate - Afr Amer 41 mL/min (>60); Estimated Creatinine Clearance 26.25 ml/min; Glucose 130 mg/dL (74-106); Sodium Level 138 mmol/L (136-145)
--- NOTE | 2022-05-07 18:01 | EKG12_ITS ---
Test Reason : weakness Blood Pressure : / mmHG Vent. Rate : 106 BPM Atrial Rate : 217 BPM P-R Int : 000 ms QRS Dur : 098 ms QT Int : 364 ms P-R-T Axes : 094 -31 -83 degrees QTc Int : 483 ms Atrial flutter with variable block Left axis deviation Incomplete right bundle branch block Left ventricular hypertrophy with repolarization abnormality ( R in aVL ) Abnormal ECG Reconfirmed by MAYURI SANCHES MD ([id number]), film editor CODY MCLEAN ([id number]) on 05/13/2022 9:17:06 AM Referred By: Satish Confirmed By:MAYURI SANCHES MD
[2022-05-07 18:02] VITALS: BP 141/78; PULSE 75; RESP 20; TEMP 37.3; O2SAT 93
[2022-05-07 18:12] LABS: Differential Indicated SCAN CRITERIA MET
[2022-05-07 18:13] LABS: Platelet Estimate SLT DEC (ADEQ)
[2022-05-07 18:14] LABS: Anisocytosis 1+; Macrocytosis 1+; Red Cell Morphology N CHROM NORMAL (NORM C&C)
--- NOTE | 2022-05-07 18:40 | PCM.HP.STD ---
HPI - General General Date of Admission: 05/07/22 Date of Service: 05/07/22 Chief Complaint: Generalized weakness HPI Narrative DRACY COVARRUBIAS, is a 86 M with past medical history significant for coronary artery disease status post CABG, history of permanent pacemaker implantation paroxysmal A. fib who presented to the emergency department with generalized weakness. Patient symptoms started 2 days prior to his admission. In addition to the progressive generalized weakness patient did experience a nonproductive cough as well as headache. Also had one bout of diarrhea. In view of worsening symptoms patient presented to the emergency department. Work-up in the ED was consistent with acute COVID-19 infection. Patient oxygen saturation on room air was in the low 90s. Placed on supplemental oxygen admitted to regular nursing floor for further management [facility] Medical History Acute electrocardiogram changes Anemia Brain bleed Carotid artery disease Chronic kidney disease (CKD) Congestive heart failure Diarrhea Elevated troponin Generalized weakness Hypokalemia Home Medications allopurinol 100 mg tablet 200 mg PO DAILY Gout 11/24/18 [History Last Taken 12/02/20 08:30] atorvastatin 40 mg tablet 40 mg PO QHS Cholesterol 11/24/18 [History Last Taken 12/01/20 21:00] pyridoxine (vitamin B6) 100 mg tablet 100 mg PO DAILY Heart 11/24/18 [History Last Taken 12/02/20 08:30] apixaban 2.5 mg tablet 2.5 mg PO BID Blood thinner 12/02/20 [History Last Taken 12/02/20 08:30] albuterol sulfate 90 mcg/actuation aerosol inhaler 2 puff inhalation Q4H PRN shortness of breath or wheezing #8.5 grams 12/25/20 [Rx Last Taken Unknown] ascorbate calcium (vitamin C) 500 mg tablet 500 mg PO BID 12/25/20 [History Last Taken Unknown] calcium carbonate 600 mg calcium (1,500 mg) tablet (Calcium) 600 mg PO DAILY 12/25/20 [History Last Taken Unknown] citicoline 500 mg capsule (Cognitive Health) mg PO 12/25/20 [History Last Taken Unknown] coenzyme [id number] E 100 mg-100 unit capsule cap PO 12/25/20 [History Last Taken Unknown] mecobalamin (vitamin B12) 1,000 mcg disintegrating tablet,sublingual 1,000 mcg sublingual DAILY 12/25/20 [History Last Taken Unknown] zinc 50 mg tablet 50 mg PO DAILY 12/25/20 [History Last Taken Unknown] benzonatate 200 mg capsule 200 mg PO BID PRN cough #10 caps 01/05/22 [Rx Last Taken Unknown] carvedilol 25 mg tablet (Coreg) 25 mg PO BID #180 tabs 03/06/22 [Rx Last Taken Unknown] spironolactone 100 mg tablet 25 mg PO DAILY 03/06/22 [History Last Taken Unknown] cholecalciferol (vitamin D3) 50 mcg (2,000 unit) tablet 50 mcg PO DAILY #1 TAB 03/09/22 [Rx Last Taken Unknown] sacubitril 49 mg-valsartan 51 mg tablet (Entresto) 1 tab PO BID #180 tabs 04/10/22 [Rx Last Taken Unknown] Allergy/AdvReac Type Severity Reaction Status Date / Time No Known Allergies Allergy Verified 05/07/22 17:00 Family History (Updated 05/07/22 @ 18:[address] Mitch Pablo MD) Father CAD (coronary artery disease) Surgical History History of brain surgery History of coronary artery bypass graft x 3 History of craniotomy History of permanent cardiac pacemaker placement Social History Smoking Status: Never smoker ROS ROS Narrative GENERAL: chills, and fatigue HEENT: denies headache, sinus congestion, RESPIRATORY: cough, shortness of breath CARDIAC: denies chest pain, palpitations, GASTROINTESTINAL: Diarrhea GENITOURINARY: denies dysuria, urgency, frequency, EXTREMITY: denies swelling MUSCULOSKELETAL: denies current joint pain or tenderness NEUROLOGIC: denies focal numbness, weakness, tingling HEMATOLOGIC: denies easy bruising and/or hemorrhage INTEGUMENT: denies rashes PSYCHIATRIC: denies suicidal or homicidal ideation Vital Signs Vital Signs Vital Signs: 05/07/22 17:00 05/07/22 17:00 05/07/22 17:02 Temperature 99.4 F H 99.1 F Temperature Source Temporal Temporal Pulse Rate 109 H 109 H Respiratory Rate 16 14 Respiratory Effort Normal Respiratory Pattern Normal Blood Pressure 123/75 H 137/64 H Blood Pressure Mean 91 88 Pulse Ox 99 96 Oxygen Delivery Method Room Air Room Air 05/07/22 18:02 Temperature 99.2 F H Temperature Source Temporal Pulse Rate 75 Respiratory Rate 20 H Respiratory Effort Respiratory Pattern Blood Pressure 141/78 H Blood Pressure Mean 99 Pulse Ox 93 Oxygen Delivery Method Weight Weight: 68.039 kg Body Mass Index (BMI) 20.9 Physical Exam Narrative GENERAL: Frail looking HEENT: Atraumatic; EYES; Anicteric, Normal Conjunctiva NECK; supple, normal thyroid, RESPIRATORY: Diminished to auscultation CARDIOVASCULAR: Regular S1 S2, GI: soft, normoactive bowel sounds, : No Renal angle tenderness; EXTREMITIES: No edema, no clubbing, MUSCULOSKELETAL: no muscle wasting NEURO: Awake; no lateralizing signs. SKIN: No Rash PSYCH; Flat affect Results Lab / Micro Data Result Diagrams: 05/07/22 17:24 05/07/22 17:24 Labs: Laboratory Results - last 24 hr 05/07/22 17:24: WBC 3.9 L, RBC 3.06 L, Hgb 10.1 L, Hct 31.2 L, MCV 102.0 H, MCH 33.0 H, MCHC 32.4, RDW Std Deviation 57.7 H, RDW Coeff of Vanesa 15.5 H, Plt Count 131 L, MPV 9.9, Immature Gran % (Auto) 0.300, Neut % (Auto) 73.4 H, Lymph % (Auto) 11.5 L, [place] % (Auto) 14.0 H, Eos % (Auto) 0.5, Baso % (Auto) 0.3, Absolute Neuts (auto) 2.9, Absolute Lymphs (auto) 0.45 L, Nucleated RBC % 0, Differential Comment SEE COMMENT, Diff Path Review May abel, Platelet Estimate SLT DEC, RBC Morphology N CHROM, Anisocytosis 1+, Macrocytosis 1+ 05/07/22 17:24: Sodium 138, Potassium 4.0, Chloride 112 H, Carbon Dioxide 19.0 L, Anion Gap 7, BUN 38 H, Creatinine 1.98 H, Estim Creat Clear Calc 26.25, Est GFR (MDRD) Af Amer 41 L, Est GFR (MDRD) Non-Af 34 L, BUN/Creatinine Ratio 19.2, Glucose 130 H, Calcium 8.9 Micro: Microbiology 05/07/22 17:20 Nasal Secretion SARS-CoV-2 & FLU Antigen (Rapid) - Final SARS-CoV-2 (COVID 19) Radiology Impression Chest X-Ray 05/07/22 17:40 IMPRESSION: No acute cardiopulmonary abnormality. Electronically Signed: Jose Plummer MD at 18:06 EDT , Assessment & Plan Assessment/Plan (1) Diarrhea: QUALIFIERS: Diarrhea type: unspecified type Qualified Code(s): R19.7 - Diarrhea, unspecified (2) MARCOS (acute kidney injury): PLAN: Plan Patient is an 86-year-old gentleman presenting with progressive generalized weakness 1. Acute COVID-19 infection ? Patient has mild symptoms at this point. Has been admitted to regular nursing floor for symptomatic management. Patient is not a candidate for remdesivir nor Decadron 2. Acute kidney injury ? Secondary to decreased oral intake as well as fluid losses from patient's diarrhea started on IV fluid with monitoring of electrolytes repeat BMP ordered for a.m. 3. Coronary artery disease ? With previous CABG 4. Paroxysmal A. fib ? Rate controlled on systemic anticoagulation with apixaban discontinued 5. Sick sinus syndrome ? Status post pacemaker placement 6. Chronic systolic congestive heart failure ? Patient has ejection fraction of 20 based on an echo obtained on 03/27/2022 will therefore be cautious with patient fluid administration 7. DVT prophylaxis ? On apixaban Advance planning; did discuss with the patient and family regarding advanced directives as well as CODE STATUS. Did explain the various scenarios involved ( FULL CODE, DNR CCA, DNR CCA with no intubation, and DNR CC and what each meant) patient elected to remain full code with CPR and intubation if needed. Order was placed. Time spent on discussion 18 minutes. Charges/Coding Visit Charges Inpatient E&M: 04504 Init Hosp L3 Procedures Hospitalists Procedures: 75714 Advncd Care Plan 30 Min
[2022-05-07 18:51] VITALS: BP 130/78; PULSE 100; RESP 14; TEMP 37.2; O2SAT 98
[2022-05-07] MEDS: Acetaminophen 325 MG Tablet 650 MG PO (18:55)
[2022-05-07 19:03] LABS: Mucous, Urine 0 SEEN /hpf (<or=2+); Red Blood Cells-Urine 0 SEEN /hpf (0-5); Squamous Epithelial Cells - UA 0 SEEN /hpf (0-5); White Blood Cells 0 SEEN /hpf (0-5)
[2022-05-07 19:07] LABS: Color, Urine Yellow (Yellow); Glucose, Dipstick Normal (Normal); Ketone-Dipstick 5 mg/dl (Negative); Leukocyte Esterase-Dipstick Negative /ul (Negative); Nitrite-Dipstick Negative (Negative); Occult Blood-Urine 10 /ul (Negative); Protein-Dipstick 100 mg/dl (Negative); Specific Gravity, Urine 1.015 (1.002-1.030); Urine Bilirubin Dipstick Negative (Negative); Urine Clarity Clear (Clear); Urine Urobilinogen Normal (Normal)
[2022-05-07 19:13] VITALS: BP 148/84; PULSE 95; RESP 18; TEMP 36.9; O2SAT 93; BMI 20.5
[2022-05-07 19:20] VITALS: BP 148/84; PULSE 95; RESP 18; TEMP 36.9; O2SAT 95
[2022-05-07 19:23] LABS: Bacteria 1+ /hpf (None Seen)
[2022-05-07] MEDS: 0.9% Normal Saline 1,000 ML 75 ML IV (19:42)
[2022-05-07] MEDS: 0.9% Saline Lock 10 ML Syringe IV (19:42)
[2022-05-07] MEDS: APIXABAN 2.5 MG TABLET PO (22:56)
[2022-05-07] MEDS: Atorvastatin Calcium 40 MG Tablet PO (22:56)
[2022-05-07] MEDS: Carvedilol 12.5 MG Tablet PO (22:56)
[2022-05-07] MEDS: SACUBITRIL/VALSARTAN 49-51 MG TABLET 1 EACH PO (22:56)
[2022-05-08 02:34] VITALS: BP 123/84; PULSE 99; RESP 18; TEMP 36.9; O2SAT 98
[2022-05-08 06:25] LABS: Absolute Lymphocyte Count 0.73 X10^3/uL (0.83-4.51); Absolute Neutrophil Count 1.9 X10^3/uL (2.0-7.7); Basophil# 0.01 X10^3/uL; Basophil% 0.3 % (0-1); Eosinophil# 0.01 X10^3/uL; Eosinophils% 0.3 % (0-5); Hematocrit 29.4 % (40-54); Hemoglobin 9.7 g/dL (13.0-16.5); Lymphocyte # 0.73 X10^3/ul (0.83-4.51); Lymphocyte % 22.8 % (19-41); Mean Corpuscular Hgb 33.9 pg (27.0-32.0); Mean Corpuscular Volume 102.8 fL (80-94); Mean Platelet Vol. 9.8 fl (6.2-12.0); Monocyte# 0.57 X10^3/uL; Monocyte% 17.8 % (0-10); NRBC Flagged by Analyzer 0 % (0-5); Neutrophil # 1.86 X10^3/uL (2.7-7.7); Neutrophil % 58.2 % (47-70); Platelet Count 111 K/mm3 (150-450); RBC Distribution Width CV 15.5 % (11.6-14.6); RBC Distribution Width SD 58.9 fl (35.1-43.9); Red Blood Count 2.86 M/mm3 (4.6-6.2); White Blood Count 3.2 K/mm3 (4.4-11.0)
[2022-05-08 07:05] LABS: Anion Gap 11 (5-15); BUN 39 mg/dL (7-18); BUN/Creat Ratio 20.2 RATIO (10-20); Calcium,Total 8.6 mg/dL (8.5-10.1); Chloride 111 mmol/L (98-107); Creatinine, Serum 1.93 mg/dL (0.70-1.30); EST Glomerular Filtration Rate 35 mL/min (>60); Est Glom Filt Rate - Afr Amer 43 mL/min (>60); Estimated Creatinine Clearance 26.48 ml/min; Glucose 104 mg/dL (74-106); Magnesium 1.2 mg/dL (1.6-2.6); Potassium 3.8 mmol/L (3.5-5.1); Sodium Level 141 mmol/L (136-145)
--- NOTE | 2022-05-08 07:44 | PN.HOSP_ITS ---
Subjective Subjective Significant change in patient kidney function and overall condition. Plan is to continue with gentle IV fluids Objective Data Objective Data Vital Signs: Vital Signs Temp Pulse Resp BP Pulse Ox O2 Del Method O2 Flow Rate 98.5 F 99 18 123/84 H 98 Room Air 97 05/08/22 02:34 05/08/22 02:34 05/08/22 02:34 05/08/22 02:34 05/08/22 02:34 05/08/22 02:37 05/08/22 02:37 Oxygen Flow Rate (L/min) 97 Oxygen Delivery Method Room Air Weight: 66.9 kg Body Mass Index (BMI) 20.5 Intake & Output: Intake and Output for Last 24 Hours 05/06/22 05/07/22 05/08/22 23:59 23:59 23:59 Intake Total 500 / 500 600 / 600 Balance 500 / 500 600 / 600 Lab / Micro Data Result Diagrams: 05/08/22 06:15 05/08/22 06:15 Labs: Laboratory Results - last 24 hr 05/07/22 17:24: WBC 3.9 L, RBC 3.06 L, Hgb 10.1 L, Hct 31.2 L, MCV 102.0 H, MCH 33.0 H, MCHC 32.4, RDW Std Deviation 57.7 H, RDW Coeff of Vanesa 15.5 H, Plt Count 131 L, MPV 9.9, Immature Gran % (Auto) 0.300, Neut % (Auto) 73.4 H, Lymph % (Auto) 11.5 L, [place] % (Auto) 14.0 H, Eos % (Auto) 0.5, Baso % (Auto) 0.3, Absolute Neuts (auto) 2.9, Absolute Lymphs (auto) 0.45 L, Nucleated RBC % 0, Differential Comment SEE COMMENT, Diff Path Review May foll, Platelet Estimate SLT DEC, RBC Morphology N CHROM, Anisocytosis 1+, Macrocytosis 1+ 05/07/22 17:24: Sodium 138, Potassium 4.0, Chloride 112 H, Carbon Dioxide 19.0 L , Anion Gap 7, BUN 38 H, Creatinine 1.98 H, Estim Creat Clear Calc 26.25, Est GFR (MDRD) Af Amer 41 L, Est GFR (MDRD) Non-Af 34 L, BUN/Creatinine Ratio 19.2, Glucose 130 H, Calcium 8.9 05/07/22 18:59: Urine Color Yellow, Urine Clarity Clear, Urine pH 5.0, Ur Specific [place] 1.015, Urine Protein 100 H, Urine Glucose (UA) Normal, Urine Ketones 5 H, Urine Occult Blood 10 H, Urine Nitrite Negative, Urine Bilirubin Negative, Urine Urobilinogen Normal, Ur Leukocyte Esterase Negative, Urine RBC 0 SEEN, Urine WBC 0 SEEN, Ur Squamous Epith Cells 0 SEEN, Urine Bacteria 1+, Urine Mucus 0 SEEN 05/08/22 06:15: WBC 3.2 L, RBC 2.86 L, Hgb 9.7 L, Hct 29.4 L, MCV 102.8 H, MCH 33.9 H, MCHC 33.0, RDW Std Deviation 58.9 H, RDW Coeff of Vanesa 15.5 H, Plt Count 111 L, MPV 9.8, Immature Gran % (Auto) 0.600, Neut % (Auto) 58.2, Lymph % (Auto) 22.8, [place] % (Auto) 17.8 H, Eos % (Auto) 0.3, Baso % (Auto) 0.3, Absolute Neuts (auto) 1.9 L, Absolute Lymphs (auto) 0.73 L, Nucleated RBC % 0 05/08/22 06:15: Sodium 141, Potassium 3.8, Chloride 111 H, Carbon Dioxide 19.0 L , Anion Gap 11, BUN 39 H, Creatinine 1.93 H, Estim Creat Clear Calc 26.48, Est GFR (MDRD) Af Amer 43 L, Est GFR (MDRD) Non-Af 35 L, BUN/Creatinine Ratio 20.2 H , Glucose 104, Calcium 8.6, Magnesium 1.2 L Micro: Microbiology 05/07/22 17:20 Nasal Secretion SARS-CoV-2 & FLU Antigen (Rapid) - Final SARS-CoV-2 (COVID 19) Radiography Diagnostic Testing: Radiology Impression Chest X-Ray 05/07/22 17:40 IMPRESSION: No acute cardiopulmonary abnormality. Electronically Signed: Jose Plummer MD at 18:06 EDT , Physical Exam Narrative GENERAL: Frail looking HEENT: Atraumatic; EYES; Anicteric, Normal Conjunctiva NECK; supple, normal thyroid, RESPIRATORY: Diminished to auscultation CARDIOVASCULAR: Regular S1 S2, GI: soft, normoactive bowel sounds, : No Renal angle tenderness; EXTREMITIES: No edema, no clubbing, MUSCULOSKELETAL: no muscle wasting NEURO: Awake; no lateralizing signs. SKIN: No Rash PSYCH; Flat affect Assessment & Plan Assessment/Plan (1) Diarrhea: QUALIFIERS: Diarrhea type: unspecified type Qualified Code(s): R19.7 - Diarrhea, unspecified (2) MARCOS (acute kidney injury): PLAN: Plan Patient is an 86-year-old gentleman presenting with progressive generalized w eakness 1. Acute COVID-19 infection ? Patient has mild symptoms at this point. Has been admitted to regular nursing floor for symptomatic management. Patient is not a candidate for remdesivir nor Decadron ? 05/08/2022 patient seen remains symptomatic but not requiring oxygen 2. Acute kidney injury ? Secondary to decreased oral intake as well as fluid losses from patient's diarrhea started on IV fluid with monitoring of electrolytes repeat BMP ordered for a.m. ? 05/08/2022 no significant change in kidney function 3. Coronary artery disease ? With previous CABG 4. Paroxysmal A. fib ? Rate controlled on systemic anticoagulation with apixaban discontinued 5. Sick sinus syndrome ? Status post pacemaker placement 6. Chronic systolic congestive heart failure ? Patient has ejection fraction of 20 based on an echo obtained on 03/27/2022 will therefore be cautious with patient fluid administration 7. DVT prophylaxis ? On apixaban Charges/Coding Visit Charges Inpatient E&M: 58612 [facility] [place] Hosp L3
[2022-05-08 08:30] VITALS: BP 115/66; PULSE 78; RESP 18; TEMP 37.7; O2SAT 98
[2022-05-08] MEDS: 0.9% Normal Saline 1,000 ML 75 ML IV (09:42)
[2022-05-08] MEDS: APIXABAN 2.5 MG TABLET PO ×2 (09:43→20:00)
[2022-05-08] MEDS: SACUBITRIL/VALSARTAN 49-51 MG TABLET 1 EACH PO ×2 (09:43→19:59)
[2022-05-08] MEDS: Allopurinol 100 MG Tablet PO (09:43)
[2022-05-08] MEDS: Carvedilol 12.5 MG Tablet PO ×2 (09:43→19:59)
[2022-05-08 11:17] LABS: Pathologist Review Reviewed
[2022-05-08 13:28] VITALS: O2SAT 87
--- NOTE | 2022-05-08 14:58 | CASEMGMT ---
ANA CRISTINA MURPHY Assessment: Face to Face with pt for initial transition planning/care coordination assessment. ANA CRISTINA MURPHY introduced self and role at [facility], pt voices understanding and consents to assessment. Pt is A/O x4 and answers all questions appropriately at this time. Pt sitting up in chair on RA in no distress. Care providers, pharmacy, and demographics verified/updated. Admitting Dx: MARCOS, COVID PCP: [facility] Specialists:[facility] Pharmacy: [facility] Insurance: [facility], MOO Prescription Benefit: yes LW/HPOA: Pt states he thinks he may have a LW but is not sure if so and is not sure if he has a DPOA. He states his takes care of all of this. LNOK: Deirdre Brown, Living Arrangements: Pt lives with in a single story house with 2 steps to enter with a grab bar. Pt reports he is I in ADL's and denies concerns at home. Transportation: Pt drives self and denies concerns with transportation. DME/HHC/SNF: Pt has a cane, walker and walking stick. States he uses all three depending what he is doing. Pt states he has had HHC in the past but is unsure of which agency it was provided by. Pt denies SNF stays. Pt states no concerns with going home at time of dc. He states he uses the treadmill frequently. No therapy needed after eval. Pt states his is to be tested for COVID. Should she be positive, he can quarantine from her using separate bedrooms and bathrooms. Provided pt with local in network DME providers, pt chose [employer] if needed for oxygen. Pt states no further concerns/needs. CM to follow. Advised pt to ask CM if any further question/concerns/needs arise, voices understanding. Pt Goal: Home Plan: Home, follow for oxygen. Green sheet on chart for oxygen and pox.
[2022-05-08 15:24] VITALS: BP 119/81; PULSE 70; RESP 18; TEMP 37.1; O2SAT 98
[2022-05-08 19:54] VITALS: BP 125/89; PULSE 107; RESP 18; TEMP 36.6; O2SAT 98
[2022-05-08] MEDS: Atorvastatin Calcium 40 MG Tablet PO (19:59)
[2022-05-09] VITALS (9 sets, daily range): BP systolic 115–127; BP diastolic 71–86; PULSE 103–110; RESP 18; TEMP 36.6–37.2; O2SAT 94–97
[2022-05-09 07:11] LABS: Absolute Lymphocyte Count 0.82 X10^3/uL (0.83-4.51); Absolute Neutrophil Count 1.4 X10^3/uL (2.0-7.7); Basophil# 0.01 X10^3/uL; Basophil% 0.4 % (0-1); Eosinophil# 0.01 X10^3/uL; Eosinophils% 0.4 % (0-5); Hematocrit 27.2 % (40-54); Lymphocyte # 0.82 X10^3/ul (0.83-4.51); Lymphocyte % 31.4 % (19-41); Mean Corp Hgb Conc 33.1 g/dL (32-36); Mean Corpuscular Volume 102.6 fL (80-94); Mean Platelet Vol. 10.5 fl (6.2-12.0); Monocyte% 15.3 % (0-10); NRBC Flagged by Analyzer 0 % (0-5); Neutrophil # 1.37 X10^3/uL (2.7-7.7); Neutrophil % 52.5 % (47-70); Platelet Count 106 K/mm3 (150-450); RBC Distribution Width CV 15.5 % (11.6-14.6); RBC Distribution Width SD 57.9 fl (35.1-43.9); Red Blood Count 2.65 M/mm3 (4.6-6.2); White Blood Count 2.6 K/mm3 (4.4-11.0)
--- NOTE | 2022-05-09 07:33 | PN.HOSP_ITS ---
Subjective Subjective Patient seen still remains weak and frail. No improvement in kidney function. Consult has been placed to nephrology. Patient Entresto held. Ordered renal duplex. Objective Data Objective Data Vital Signs: Vital Signs Temp Pulse Resp BP Pulse Ox O2 Del Method O2 Flow Rate 98.7 F 104 H 18 125/71 H 95 Room Air 97 05/09/22 01:57 05/09/22 01:57 05/09/22 01:57 05/09/22 01:57 05/09/22 07:10 05/09/22 07:10 05/08/22 08:00 Oxygen Flow Rate (L/min) 97 Oxygen Delivery Method Room Air Weight: 66.9 kg Body Mass Index (BMI) 20.5 Intake & Output: Intake and Output for Last 24 Hours 05/07/22 05/08/22 05/09/22 23:59 23:59 23:59 Intake Total 500 / 500 4350 / 4650 600 / 600 Balance 500 / 500 4350 / 4650 600 / 600 Lab / Micro Data Result Diagrams: 05/09/22 06:56 05/09/22 06:56 Labs: Laboratory Results - last 24 hr 05/07/22 17:24: Diff Path Review Reviewed 05/09/22 06:56: WBC 2.6 L, RBC 2.65 L, Hgb 9.0 L, Hct 27.2 L, MCV 102.6 H, MCH 3 4.0 H, MCHC 33.1, RDW Std Deviation 57.9 H, RDW Coeff of Vanesa 15.5 H, Plt Count 106 L, MPV 10.5, Immature Gran % (Auto) 0.000, Neut % (Auto) 52.5, Lymph % (Auto) 31.4, [place] % (Auto) 15.3 H, Eos % (Auto) 0.4, Baso % (Auto) 0.4, Absolute Neuts (auto) 1.4 L, Absolute Lymphs (auto) 0.82 L, Nucleated RBC % 0 Micro: Microbiology 05/07/22 17:20 Nasal Secretion SARS-CoV-2 & FLU Antigen (Rapid) - Final SARS-CoV-2 (COVID 19) Physical Exam Narrative GENERAL: Frail looking HEENT: Atraumatic; EYES; Anicteric, Normal Conjunctiva NECK; supple, normal thyroid, RESPIRATORY: Diminished to auscultation CARDIOVASCULAR: Regular S1 S2, GI: soft, normoactive bowel sounds, : No Renal angle tenderness; EXTREMITIES: No edema, no clubbing, MUSCULOSKELETAL: no muscle wasting NEURO: Awake; no lateralizing signs. SKIN: No Rash PSYCH; Flat affect Assessment & Plan Assessment/Plan (1) Diarrhea: QUALIFIERS: Diarrhea type: unspecified type Qualified Code(s): R19.7 - Diarrhea, unspecified (2) MARCOS (acute kidney injury): PLAN: Plan Patient is an 86-year-old gentleman presenting with progressive generalized weakness 1. Acute COVID-19 infection ? Patient has mild symptoms at this point. Has been admitted to regular nursing floor for symptomatic management. Patient is not a candidate for remdesivir nor Decadron ? 05/08/2022 patient seen remains symptomatic but not requiring oxygen -05/09/2022; patient still complains of feeling weak 2. Acute kidney injury ? Secondary to decreased oral intake as well as fluid losses from patient's diarrhea started on IV fluid with monitoring of electrolytes repeat BMP ordered for a.m. ? 05/08/2022 no significant change in kidney function -05/09/2022 No improvement in kidney function. Consult has been placed to nephrology. Patient Entresto held. Ordered renal duplex. 3. Coronary artery disease ? With previous CABG 4. Paroxysmal A. fib ? Rate controlled on systemic anticoagulation with apixaban discontinued 5. Sick sinus syndrome ? Status post pacemaker placement 6. Chronic systolic congestive heart failure ? Patient has ejection fraction of 20 based on an echo obtained on 03/27/2022 will therefore be cautious with patient fluid administration 7. DVT prophylaxis ? On apixaban 8. Anemia - Secondary to chronic disorder monitoring H&H and transfuse if patient becomes symptomatic or hemoglobin falls below 7 Charges/Coding Visit Charges Inpatient E&M: 09844 Subs Hosp L3
[2022-05-09 07:40] LABS: Anion Gap 9 (5-15); BUN 42 mg/dL (7-18); BUN/Creat Ratio 20.3 RATIO (10-20); Calcium,Total 8.3 mg/dL (8.5-10.1); Chloride 114 mmol/L (98-107); Creatinine, Serum 2.07 mg/dL (0.70-1.30); EST Glomerular Filtration Rate 33 mL/min (>60); Est Glom Filt Rate - Afr Amer 39 mL/min (>60); Estimated Creatinine Clearance 24.69 ml/min; Glucose 117 mg/dL (74-106); Potassium 3.4 mmol/L (3.5-5.1); Sodium Level 142 mmol/L (136-145)
--- NOTE | 2022-05-09 07:59 | US_ITS ---
STUDY: RENAL ULTRASOUND - COMPLETE REASON FOR EXAM: Male, 86 years old. Acute kidney injury. TECHNIQUE: Ultrasound evaluation of the kidneys was performed with real-time and static tracey-scale imaging. COMPARISON: None. FINDINGS: RIGHT KIDNEY: Normal location of the right kidney, which is normal in size. The right kidney measures 9.4 cm. Increased renal cortical echogenicity. The renal cortex measures 12.0 cm. There is no right renal mass or cyst. There are no right renal calculi. There is mild hydronephrosis of the right kidney. DISTAL RIGHT URETER: There is non-visualization of the distal right ureter. There is no demonstrated right ureterovesical junction calculus. There is no demonstrated right ureteral jet. LEFT KIDNEY: Normal location of the left kidney, which is normal in size. The left kidney measures 10.9 cm. There is diffuse thinning of the renal cortex. The renal cortex measures 0 point cm. There is a 2.7 x 2.8 x 2.3 cm cyst off the lower pole. There are no left renal calculi. There is mild hydronephrosis of the left kidney. DISTAL LEFT URETER: There is non-visualization of the distal left ureter. There is no demonstrated left ureterovesical junction calculus. There is a visualized left ureteral jet. BLADDER: The distended urinary bladder has a volume of 336 ml. There is a normal wall thickness of the distended urinary bladder. There is no demonstrated mass within the urinary bladder. There are no demonstrated bladder calculi. Incidental finding is minimal free fluid does the right left upper quadrants. US/Kidney and Bladder IMPRESSION: 1. Cortical thinning with increased renal cortical echogenicity suggestive of medical renal disease. 2. Mild bilateral hydronephrosis. 3. Left renal cyst. 4. Normal urinary bladder. Electronically Signed: Jacob Templeton DO at 21:29 EDT ,
--- NOTE | 2022-05-09 08:50 | PCM.CONS.R ---
Assessment & Plan Assessment/Plan (1) MARCOS (acute kidney injury): (2) COVID-19: (3) Hypokalemia: (4) Congestive heart failure: PLAN: Plan We were consulted for acute kidney injury. Patient was admitted to the hospital 2 days ago after he presented to emergency room with complaints of weakness and tested positive for COVID-19 infection. Patient currently has mild symptoms, he is not requiring any supplemental oxygen and is on room air. Lung sounds are clear. Chest x-ray on admission no acute cardiopulmonary abnormality, no consolidation, effusion or edema. Patient did not receive remdesivir nor Decadron. Patient has poor appetite and has been having some diarrhea. He is also noted to have normal to low blood pressures and is on Coreg and Entresto. Likely MARCOS is from infection with possible component of volume depletion (poor oral intake, diarrhea) with concurrent Entresto use. At this time there is no acute indication for [employer], patient is not significantly acidotic, hyperkalemic nor hypervolemic. His potassium is slightly low today at 3.4 and supplement has been ordered. His bicarb is at 19, this is likely from MARCOS and diarrhea. Patient is nonoliguric and on exam he is mildly hypovolemic; gentle IV fluids have been ordered and Entresto has been stopped. Recommend to continue holding Entresto at this time. Renal ultrasound has been ordered. We will also order UA. Baseline creatinine is ranging around 1 to 1.3 mg/dL. Encouraged patient to increase solute and fluid intake as well as up in chair during the day and for meals. Encouraged patient to drink protein drink that has been ordered. Patient does not need renal diet restrictions. Further orders forthcoming as hospitalization evolves. Thank you for allowing us to participate in the care of Mr. Covarrubias. HPI Consult Data Date of Consult: 05/09/22 HPI Narrative HPI Narrative: DARCY COVARRUBIAS, is a 86 M with past medical history significant for coronary artery disease status post coronary artery bypass graft surgery x3 in 2014, permanent pacemaker placement in 2015, hypertension, A. fib, chronic systolic heart failure with last known EF 20% (March 2020) who presented to emergency room with complaints of weakness and not productive cough, patient tested positive for COVID-19 infection and was admitted for further evaluation and treatment to the hospital. In the ER patient's oxygen saturation low 90s on room air. He was placed on supplemental oxygen. We were consulted for acute kidney injury. Patient reports he has not been seen by histotechnologist supervisor in the past. In reviewing past creatinine trends: Baseline creatinine since 2018 has been ranging around 1 to 1.3 mg/dL. On hospital admission, 05/07 creatinine 1.98 mg/dL, on 05/08 creatinine 1.93 mg/dL and today his creatinine is at 2.07 mg/dL. Patient denies any nausea or vomiting. He has been having multiple loose bowel movements. Patient is complaining of feeling thirsty. Patient does state that he is not eating or drinking much, states does not have a good appetite in the hospital. Patient denies any issues with urinating. Denies noting any blood in his urine. [facility] Medical History Acute electrocardiogram changes Anemia Brain bleed Carotid artery disease Chronic kidney disease (CKD) Congestive heart failure Diarrhea Elevated troponin Generalized weakness Hypokalemia Home Medications allopurinol 100 mg tablet 100 mg PO BID Gout 11/24/18 [History Last Taken 05/07/22] atorvastatin 40 mg tablet 40 mg PO QHS Cholesterol 11/24/18 [History Last Taken 05/06/22] pyridoxine (vitamin B6) 100 mg tablet 100 mg PO DAILY supplement 11/24/18 [History Last Taken 05/07/22] apixaban 2.5 mg tablet 2.5 mg PO BID Blood thinner 12/02/20 [History Last Taken 05/07/22] albuterol sulfate 90 mcg/actuation aerosol inhaler 2 puff inhalation Q4H PRN shortness of breath or wheezing #8.5 grams 12/25/20 [Rx Last Taken Unknown] ascorbate calcium (vitamin C) 500 mg tablet 500 mg PO DAILY supplement 12/25/20 [History Last Taken 05/07/22] coenzyme [id number] E 100 mg-100 unit capsule 1 cap PO DAILY supplement 12/25/20 [History Last Taken 05/07/22] mecobalamin (vitamin B12) 1,000 mcg disintegrating tablet,sublingual 1,000 mcg sublingual DAILY supplement 12/25/20 [History Last Taken 05/07/22] zinc 50 mg tablet 50 mg PO DAILY supplement 12/25/20 [History Last Taken 05/07/22] spironolactone 100 mg tablet 25 mg PO LUNCH diuretic 03/06/22 [History Last Taken 05/07/22] cholecalciferol (vitamin D3) 50 mcg (2,000 unit) tablet 50 mcg PO DAILY #1 TAB 03/09/22 [Rx Last Taken 05/07/22] carvedilol 25 mg tablet 12.5 mg PO BID HTN 05/07/22 [History Last Taken 05/07/22] sacubitril 49 mg-valsartan 51 mg tablet (Entresto) 1 tab PO BID heart failure 05/07/22 [History Last Taken 05/07/22] Allergy/AdvReac Type Severity Reaction Status Date / Time No Known Allergies Allergy Verified 05/07/22 17:00 Family History (Updated 05/07/22 @ 18:[address] Mitch Pablo MD) Father CAD (coronary artery disease) Surgical History History of brain surgery History of coronary artery bypass graft x 3 History of craniotomy History of permanent cardiac pacemaker placement Social History Smoking Status: Never smoker ROS ROS Narrative As per HPI and past medical history Physical Exam Narrative Const: Alert and oriented x3. No apparent distress HEENT: Head is normocephalic, atraumatic, oral mucosa and lips dry Respiratory: Lung sounds clear anteriorly and posteriorly, no wheezes, rhonchi or rales noted Cardio: S1, S2, RRR, no murmur rubs or gallops GI: Abdomen soft, nontender, positive bowel sounds Extremities: No edema Lab / Micro Data Result Diagrams: 05/09/22 06:56 05/09/22 06:56 Labs: Laboratory Results - last 24 hr 05/07/22 17:24: Diff Path Review Reviewed 05/09/22 06:56: WBC 2.6 L, RBC 2.65 L, Hgb 9.0 L, Hct 27.2 L, MCV 102.6 H, MCH 34.0 H, MCHC 33.1, RDW Std Deviation 57.9 H, RDW Coeff of Vanesa 15.5 H, Plt Count 106 L, MPV 10.5, Immature Gran % (Auto) 0.000, Neut % (Auto) 52.5, Lymph % (Auto) 31.4, [place] % (Auto) 15.3 H, Eos % (Auto) 0.4, Baso % (Auto) 0.4, Absolute Neuts (auto) 1.4 L, Absolute Lymphs (auto) 0.82 L, Nucleated RBC % 0 05/09/22 06:56: Sodium 142, Potassium 3.4 L, Chloride 114 H, Carbon Dioxide 19.0 L, Anion Gap 9, BUN 42 H, Creatinine 2.07 H, Estim Creat Clear Calc 24.69, Est GFR (MDRD) Af Amer 39 L, Est GFR (MDRD) Non-Af 33 L, BUN/Creatinine Ratio 20.3 H, Glucose 117 H, Calcium 8.3 L
[2022-05-09] MEDS: Allopurinol 100 MG Tablet PO (08:52)
[2022-05-09] MEDS: Carvedilol 12.5 MG Tablet PO ×2 (08:52→22:11)
[2022-05-09] MEDS: 0.9% Saline Lock 10 ML Syringe IV (08:52)
[2022-05-09] MEDS: APIXABAN 2.5 MG TABLET PO ×2 (08:52→22:12)
[2022-05-09] MEDS: KCL 20MEQ in 0.9% NS 20 MEQ/1,000 ML IV.SOLN. 75 MEQ IV ×2 (08:52→22:11)
[2022-05-09] MEDS: Atorvastatin Calcium 40 MG Tablet PO (22:11)
[2022-05-10 02:31] VITALS: BP 107/65; PULSE 69; RESP 16; TEMP 37; O2SAT 96
[2022-05-10 02:43] LABS: Bacteria 0 SEEN /hpf (None Seen); Mucous, Urine 0 SEEN /hpf (<or=2+); Squamous Epithelial Cells - UA 0 SEEN /hpf (0-5); White Blood Cells 0 SEEN /hpf (0-5)
[2022-05-10 02:51] LABS: Glucose, Dipstick Normal (Normal); Ketone-Dipstick Negative (Negative); Leukocyte Esterase-Dipstick Negative /ul (Negative); Nitrite-Dipstick Negative (Negative); Occult Blood-Urine 25 /ul (Negative); Protein-Dipstick 100 mg/dl (Negative); Urine Bilirubin Dipstick Negative (Negative); Urine Urobilinogen Normal (Normal)
[2022-05-10 02:52] LABS: Color, Urine Yellow (Yellow); Urine Clarity Clear (Clear)
[2022-05-10 02:55] LABS: Red Blood Cells-Urine 0-5 SEEN /hpf (0-5)
[2022-05-10 06:56] LABS: Absolute Lymphocyte Count 0.88 X10^3/uL (0.83-4.51); Absolute Neutrophil Count 1.3 X10^3/uL (2.0-7.7); Basophil# 0.01 X10^3/uL; Basophil% 0.4 % (0-1); Eosinophil# 0.02 X10^3/uL; Eosinophils% 0.8 % (0-5); Hematocrit 28.3 % (40-54); Hemoglobin 9.3 g/dL (13.0-16.5); Lymphocyte # 0.88 X10^3/ul (0.83-4.51); Mean Corp Hgb Conc 32.9 g/dL (32-36); Mean Corpuscular Hgb 33.1 pg (27.0-32.0); Mean Corpuscular Volume 100.7 fL (80-94); Mean Platelet Vol. 10.4 fl (6.2-12.0); Monocyte% 8.4 % (0-10); NRBC Flagged by Analyzer 0 % (0-5); Neutrophil # 1.26 X10^3/uL (2.7-7.7); POSITIVE COUNT YES; Platelet Count 98 K/mm3 (150-450); RBC Distribution Width CV 15.4 % (11.6-14.6); RBC Distribution Width SD 56.2 fl (35.1-43.9); Red Blood Count 2.81 M/mm3 (4.6-6.2); White Blood Count 2.4 K/mm3 (4.4-11.0)
[2022-05-10 07:14] LABS: Anion Gap 8 (5-15); BUN 44 mg/dL (7-18); BUN/Creat Ratio 20.6 RATIO (10-20); Calcium,Total 8.3 mg/dL (8.5-10.1); Chloride 117 mmol/L (98-107); Creatinine, Serum 2.14 mg/dL (0.70-1.30); EST Glomerular Filtration Rate 31 mL/min (>60); Est Glom Filt Rate - Afr Amer 38 mL/min (>60); Estimated Creatinine Clearance 23.88 ml/min; Glucose 125 mg/dL (74-106); Potassium 3.3 mmol/L (3.5-5.1); Sodium Level 144 mmol/L (136-145)
--- NOTE | 2022-05-10 07:35 | PN.HOSP_ITS ---
Subjective Subjective Patient seen was reported to be delirious during the evening. No improvement in kidney function. Potassium down to 3.3 Objective Data Objective Data Vital Signs: Vital Signs Temp Pulse Resp BP Pulse Ox O2 Del Method O2 Flow Rate 98.6 F 69 16 107/65 96 Room Air 97 05/10/22 02:31 05/10/22 02:31 05/10/22 02:31 05/10/22 02:31 05/10/22 02:05/10/22 02:05/08/22 08:00 Oxygen Flow Rate (L/min) 97 Oxygen Delivery Method Room Air Weight: 66.9 kg Body Mass Index (BMI) 20.5 Intake & Output: Intake and Output for Last 24 Hours 05/08/22 05/09/22 05/10/22 23:59 23:59 23:59 Intake Total 4350 / 4650 2748.75 / 2748.75 200 / 200 Output Total 400 / 400 Balance 4350 / 4650 2748.75 / 2748.75 -200 / -200 Lab / Micro Data Result Diagrams: 05/10/22 06:25 05/10/22 06:25 Labs: Laboratory Results - last 24 hr 05/09/22 06:56: Sodium 142, Potassium 3.4 L, Chloride 114 H, Carbon Dioxide 19.0 L, Anion Gap 9, BUN 42 H, Creatinine 2.07 H, Estim Creat Clear Calc 24.69, Est GFR (MDRD) Af Amer 39 L, Est GFR (MDRD) Non-Af 33 L, BUN/Creatinine Ratio 20.3 H , Glucose 117 H, Calcium 8.3 L 05/10/22 02:30: Urine Color Yellow, Urine Clarity Clear, Urine pH 6.0, Ur Specific [place] 1.020, Urine Protein 100 H, Urine Glucose (UA) Normal, Urine Ketones Negative, Urine Occult Blood 25 H, Urine Nitrite Negative, Urine Bilirubin Negative, Urine Urobilinogen Normal, Ur Leukocyte Esterase Negative, U rine RBC 0-5 SEEN, Urine WBC 0 SEEN, Ur Squamous Epith Cells 0 SEEN, Urine Bacteria 0 SEEN, Urine Mucus 0 SEEN 05/10/22 06:25: WBC 2.4 L, RBC 2.81 L, Hgb 9.3 L, Hct 28.3 L, MCV 100.7 H, MCH 33.1 H, MCHC 32.9, RDW Std Deviation 56.2 H, RDW Coeff of Vanesa 15.4 H, Plt Count 98 L, MPV 10.4, Immature Gran % (Auto) 0.400, Neut % (Auto) 53.0, Lymph % (Auto) 37.0, [place] % (Auto) 8.4, Eos % (Auto) 0.8, Baso % (Auto) 0.4, Absolute Neuts (auto) 1.3 L, Absolute Lymphs (auto) 0.88, Nucleated RBC % 0 05/10/22 06:25: Sodium 144, Potassium 3.3 L, Chloride 117 H, Carbon Dioxide 19.0 L, Anion Gap 8, BUN 44 H, Creatinine 2.14 H, Estim Creat Clear Calc 23.88, Est GFR (MDRD) Af Amer 38 L, Est GFR (MDRD) Non-Af 31 L, BUN/Creatinine Ratio 20.6 H , Glucose 125 H, Calcium 8.3 L Micro: Microbiology 05/07/22 17:20 Nasal Secretion SARS-CoV-2 & FLU Antigen (Rapid) - Final SARS-CoV-2 (COVID 19) Radiography Diagnostic Testing: Radiology Impression Renal Ultrasound 05/09/22 07:59 IMPRESSION: 1. Cortical thinning with increased renal cortical echogenicity suggestive of medical renal disease. 2. Mild bilateral hydronephrosis. 3. Left renal cyst. 4. Normal urinary bladder. Electronically Signed: Jacob TempletonDO at 21:29 EDT Reading Location ID and State: [address] [place] [address] Tel [phone], Service support , Physical Exam Narrative GENERAL: Frail looking HEENT: Atraumatic; EYES; Anicteric, Normal Conjunctiva NECK; supple, normal thyroid, RESPIRATORY: Diminished to auscultation CARDIOVASCULAR: Regular S1 S2, GI: soft, normoactive bowel sounds, : No Renal angle tenderness; EXTREMITIES: No edema, no clubbing, MUSCULOSKELETAL: no muscle wasting NEURO: Awake; no lateralizing signs. SKIN: No Rash PSYCH; Flat affect Assessment & Plan Assessment/Plan (1) Diarrhea: QUALIFIERS: Diarrhea type: unspecified type Qualified Code(s): R19.7 - Diarrhea, unspecified (2) MARCOS (acute kidney injury): PLAN: Plan Patient is an 86-year-old gentleman presenting with progressive generalized weakness 1. Acute COVID-19 infection ? Patient has mild symptoms at this point. Has been admitted to regular nursing floor for symptomatic management. Patient is not a candidate for remdesivir nor Decadron ? 05/08/2022 patient seen remains symptomatic but not requiring oxygen -05/09/2022; patient still complains of feeling weak 05/10/2022 2. Acute kidney injury ? Secondary to decreased oral intake as well as fluid losses from patient's diarrhea started on IV fluid with monitoring of electrolytes repeat BMP ordered for a.m. ? 05/08/2022 no significant change in kidney function -05/09/2022 No improvement in kidney function. Consult has been placed to nephrology. Patient Entresto held. Ordered renal duplex. -05/10/2021 patient seen was reported to be delirious during the evening. No improvement in kidney function. Renal ultrasound did show Cortical thinning with increased renal cortical echogenicity suggestive of medical renal disease. Mild bilateral hydronephrosis. 3. Coronary artery disease ? With previous CABG 4. Paroxysmal A. fib ? Rate controlled on systemic anticoagulation with apixaban discontinued 5. Sick sinus syndrome ? Status post pacemaker placement 6. Chronic systolic congestive heart failure ? Patient has ejection fraction of 20 based on an echo obtained on 03/27/2022 will therefore be cautious with patient fluid administration 7. DVT prophylaxis ? On apixaban 8. Anemia - Secondary to chronic disorder monitoring H&H and transfuse if patient becomes symptomatic or hemoglobin falls below 7 9. Hypokalemia -Corrected per protocol Charges/Coding Visit Charges Inpatient E&M: 64074 Subs Hosp L2
[2022-05-10 07:54] VITALS: O2SAT 95
--- NOTE | 2022-05-10 10:10 | NURSING ---
Pt was incont of large amt of Stool. Assisted into the bathroom and then the shower.
--- NOTE | 2022-05-10 11:24 | PCM.PN.REN ---
Subjective Subjective Following for MARCOS Patient up to bathroom. Denies any complaints. States he is still having diarrhea. Denies any nausea or vomiting. Objective Data Objective Data Vital Signs: Vital Signs Temp Pulse Resp BP Pulse Ox O2 Del Method O2 Flow Rate 98.6 F 69 16 107/65 95 Room Air 97 05/10/22 02:31 05/10/22 02:31 05/10/22 02:31 05/10/22 02:31 05/10/22 07:54 05/10/22 07:54 05/08/22 08:00 Oxygen Flow Rate (L/min) 97 Oxygen Delivery Method Room Air Weight: 66.9 kg Body Mass Index (BMI) 20.5 Intake & Output: Intake and Output for Last 24 Hours 05/08/22 05/09/22 05/10/22 23:59 23:59 23:59 Intake Total 4350 / 4650 2748.75 / 2748.75 1083.75 / 1083.75 Output Total 400 / 400 Balance 4350 / 4650 2748.75 / 2748.75 683.75 / 683.75 Lab / Micro Data Result Diagrams: 05/10/22 06:25 05/10/22 06:25 Labs: Laboratory Results - last 24 hr 05/10/22 02:30: Urine Color Yellow, Urine Clarity Clear, Urine pH 6.0, Ur Specific Biggers 1.020, Urine Protein 100 H, Urine Glucose (UA) Normal, Urine Ketones Negative, Urine Occult Blood 25 H, Urine Nitrite Negative, Urine Bilirubin Negative, Urine Urobilinogen Normal, Ur Leukocyte Esterase Negative, Urine RBC 0-5 SEEN, Urine WBC 0 SEEN, Ur Squamous Epith Cells 0 SEEN, Urine Bacteria 0 SEEN, Urine Mucus 0 SEEN 05/10/22 06:25: WBC 2.4 L, RBC 2.81 L, Hgb 9.3 L, Hct 28.3 L, MCV 100.7 H, MCH 33.1 H, MCHC 32.9, RDW Std Deviation 56.2 H, RDW Coeff of Vanesa 15.4 H, Plt Count 98 L, MPV 10.4, Immature Gran % (Auto) 0.400, Neut % (Auto) 53.0, Lymph % (Auto) 37.0, [place] % (Auto) 8.4, Eos % (Auto) 0.8, Baso % (Auto) 0.4, Absolute Neuts (auto) 1.3 L, Absolute Lymphs (auto) 0.88, Nucleated RBC % 0 05/10/22 06:25: Sodium 144, Potassium 3.3 L, Chloride 117 H, Carbon Dioxide 19.0 L, Anion Gap 8, BUN 44 H, Creatinine 2.14 H, Estim Creat Clear Calc 23.88, Est GFR (MDRD) Af Amer 38 L, Est GFR (MDRD) Non-Af 31 L, BUN/Creatinine Ratio 20.6 H, Glucose 125 H, Calcium 8.3 L Micro: Microbiology 05/07/22 17:20 Nasal Secretion SARS-CoV-2 & FLU Antigen (Rapid) - Final SARS-CoV-2 (COVID 19) Radiography Diagnostic Testing: Radiology Impression Renal Ultrasound 05/09/22 07:59 IMPRESSION: 1. Cortical thinning with increased renal cortical echogenicity suggestive of medical renal disease. 2. Mild bilateral hydronephrosis. 3. Left renal cyst. 4. Normal urinary bladder. Electronically Signed: Jacob Templeton DO at 21:29 EDT Reading Location ID and State: [address] [place] [address] Tel [phone], Service support , Physical Exam Narrative Const: Alert and oriented x3. No apparent distress HEENT: Head is normocephalic, atraumatic, oral mucosa and lips dry Respiratory: Lung sounds clear anteriorly and posteriorly, no wheezes, rhonchi or rales noted Cardio: S1, S2, RRR, no murmur rubs or gallops GI: Abdomen soft, nontender, positive bowel sounds Extremities: No edema Assessment & Plan Assessment/Plan (1) MARCOS (acute kidney injury): (2) COVID-19: (3) Hypokalemia: (4) Congestive heart failure: PLAN: Plan - Nonoliguric, mildly hypovolemic MARCOS. MARCOS likely from infection with possible component of volume depletion (poor oral intake, diarrhea) with current Entresto use. Creatinine 1.9 mg/dL on admission, today his creatinine is 2.1 mg/dL. Patient is nonoliguric and mildly hypovolemic on exam. We will continue gentle IV fluids for another day. Continue holding Entresto. 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 Renal ultrasound noted, did show mild bilateral hydronephrosis. Bladder volume of 336 mL. Patient is standing when he urinates. Does not need Sinclair at this time. UA noted, protein 100, occult blood 25, leukocyte esterase negative. - Hypokalemia: Likely from diarrhea and poor oral intake. Supplement ordered. Patient does not need renal diet restrictions. Encouraged patient to increase solute/fluid intake. - Mild metabolic acidosis: Likely from MARCOS and diarrhea. Bicarb is 19. - CKD stage III, baseline creatinine ranging 1 to 1.3 mg/dL. - COVID-19 infection. Patient currently has mild symptoms, he is not requiring any supplemental oxygen and is on room air. Lung sounds are clear. CXR admission no acute cardiopulmonary abnormality, no consolidation, effusion or edema. Patient did not receive remdesivir nor Decadron. - discussed with Dr. Pablo
[2022-05-10] MEDS: KCL 20MEQ in 0.9% NS 20 MEQ/1,000 ML IV.SOLN. 75 MEQ IV (11:46)
[2022-05-10] MEDS: APIXABAN 2.5 MG TABLET PO ×2 (11:47→20:55)
[2022-05-10] MEDS: Allopurinol 100 MG Tablet PO (11:47)
[2022-05-10] MEDS: Carvedilol 12.5 MG Tablet PO ×2 (11:47→20:58)
[2022-05-10 11:51] VITALS: BP 125/77; PULSE 68; RESP 20; TEMP 36.4; O2SAT 99
[2022-05-10] MEDS: Loperamide 2 MG Capsule PO (13:10)
[2022-05-10] MEDS: Potassium Chloride Oral Tablet 20 MEQ 40 MEQ PO (13:10)
[2022-05-10 18:45] VITALS: BP 120/61; PULSE 68; RESP 18; TEMP 36.7; O2SAT 95
[2022-05-10] MEDS: Menthol/Lanolin/Calamine/Znox 113 GM Tube 1 APPLIC TOPICAL (20:54)
[2022-05-10] MEDS: Atorvastatin Calcium 40 MG Tablet PO (20:55)
[2022-05-10 20:59] VITALS: BP 128/72; PULSE 68; RESP 16; TEMP 36.7; O2SAT 96
[2022-05-11] MEDS: 0.9% Normal Saline 1,000 ML 60 ML IV ×2 (00:39→17:07)
[2022-05-11 04:43] VITALS: BP 101/68; PULSE 63; RESP 16; TEMP 36.4; O2SAT 97
[2022-05-11 07:43] LABS: Anion Gap 8 (5-15); BUN 40 mg/dL (7-18); Calcium,Total 8.1 mg/dL (8.5-10.1); Chloride 121 mmol/L (98-107); Creatinine, Serum 2.11 mg/dL (0.70-1.30); EST Glomerular Filtration Rate 32 mL/min (>60); Est Glom Filt Rate - Afr Amer 39 mL/min (>60); Estimated Creatinine Clearance 24.22 ml/min; Glucose 104 mg/dL (74-106); Potassium 3.7 mmol/L (3.5-5.1); Sodium Level 145 mmol/L (136-145)
[2022-05-11] MEDS: APIXABAN 2.5 MG TABLET PO ×2 (08:53→22:29)
[2022-05-11] MEDS: Menthol/Lanolin/Calamine/Znox 113 GM Tube 1 APPLIC TOPICAL ×2 (08:53→22:34)
[2022-05-11] MEDS: Allopurinol 100 MG Tablet PO (08:53)
[2022-05-11] MEDS: Carvedilol 12.5 MG Tablet PO ×2 (08:53→22:29)
[2022-05-11 09:00] VITALS: BP 129/86; PULSE 87; RESP 16; TEMP 36.8; O2SAT 97
--- NOTE | 2022-05-11 10:01 | PCM.PN.REN ---
Subjective Subjective Following for MARCOS on CKD Sitting in chair, eating breakfast. Denies any complaints. Denies any nausea or vomiting. Reports still having multiple episodes of loose bowel movements. Objective Data Objective Data Vital Signs: Vital Signs Temp Pulse Resp BP Pulse Ox O2 Del Method O2 Flow Rate 98.3 F 87 16 129/86 H 97 Room Air 97 05/11/22 09:00 05/11/22 09:00 05/11/22 09:00 05/11/22 09:00 05/11/22 09:00 05/11/22 09:00 05/08/22 08:00 Oxygen Flow Rate (L/min) 97 Oxygen Delivery Method Room Air Weight: 66.9 kg Body Mass Index (BMI) 20.5 Intake & Output: Intake and Output for Last 24 Hours 05/09/22 05/10/22 05/11/22 23:59 23:59 23:59 Intake Total 2748.75 / 2748.75 1503.75 / 1803.75 1300 / 1300 Output Total 400 / 400 Balance 2748.75 / 2748.75 1103.75 / 1403.75 1300 / 1300 Lab / Micro Data Result Diagrams: 05/10/22 06:25 05/11/22 06:25 Labs: Laboratory Results - last 24 hr 05/11/22 06:25: Sodium 145, Potassium 3.7, Chloride 121 H, Carbon Dioxide 16.0 L, Anion Gap 8, BUN 40 H, Creatinine 2.11 H, Estim Creat Clear Calc 24.22, Est GFR (MDRD) Af Amer 39 L, Est GFR (MDRD) Non-Af 32 L, BUN/Creatinine Ratio 19.0, Glucose 104, Calcium 8.1 L Micro: Microbiology 05/07/22 17:20 Nasal Secretion SARS-CoV-2 & FLU Antigen (Rapid) - Final SARS-CoV-2 (COVID 19) Physical Exam Narrative Const: Alert and oriented x3. No apparent distress HEENT: Head is normocephalic, atraumatic, oral mucosa and lips dry Respiratory: Lung sounds clear anteriorly and posteriorly, no wheezes, rhonchi or rales noted Cardio: S1, S2, RRR, no murmur rubs or gallops GI: Abdomen soft, nontender, positive bowel sounds Extremities: No edema Assessment & Plan Assessment/Plan (1) MARCOS (acute kidney injury): (2) COVID-19: (3) Hypokalemia: (4) Congestive heart failure: PLAN: Plan - Nonoliguric, mildly hypovolemic MARCOS. MARCOS likely from infection with possible component of volume depletion (poor oral intake, diarrhea) with current Entresto use. Creatinine 1.9 mg/dL on admission, again today his creatinine is 2.1 mg/dL. Patient is nonoliguric and mildly hypovolemic on exam. We will continue gentle IV fluids for another day. Continue holding Entresto. 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 Renal ultrasound noted, did show mild bilateral hydronephrosis. Bladder volume of 336 mL. Patient is standing when he urinates. Does not need Sinclair at this time. UA noted, protein 100, occult blood 25, leukocyte esterase negative. - Hypokalemia: Likely from diarrhea and poor oral intake. Improved. Patient does not need renal diet restrictions. Encouraged patient to increase solute/fluid intake. - Mild metabolic acidosis: Likely from MARCOS and diarrhea. Bicarb is 16, will start oral bicarb. - bps acceptable on Coreg - CKD stage III, baseline creatinine ranging 1 to 1.3 mg/dL. - COVID-19 infection. Patient currently has mild symptoms, he is not requiring any supplemental oxygen and is on room air. Lung sounds are clear. CXR admission no acute cardiopulmonary abnormality, no consolidation, effusion or edema. Patient did not receive remdesivir nor Decadron. -Diarrhea; to rule out C. difficile, stool specimen ordered
--- NOTE | 2022-05-11 12:40 | PN.HOSP_ITS ---
Subjective Subjective Patient seen and examined. He complained of diarrhea. He remains on room air and denies any shortness of breath, cough or chest pain. Review of systems otherwise negative. Objective Data Objective Data Vital Signs: Vital Signs Temp Pulse Resp BP Pulse Ox O2 Del Method O2 Flow Rate 98.3 F 87 16 129/86 H 97 Room Air 97 05/11/22 09:00 05/11/22 09:00 05/11/22 09:00 05/11/22 09:00 05/11/22 09:00 05/11/22 10:00 05/08/22 08:00 Oxygen Flow Rate (L/min) 97 Oxygen Delivery Method Room Air Weight: 147 lb 7.828 oz Body Mass Index (BMI) 20.5 Intake & Output: Intake and Output for Last 24 Hours 05/09/22 05/10/22 05/11/22 23:59 23:59 23:59 Intake Total 2748.75 / 2748.75 1503.75 / 1803.75 1300 / 1300 Output Total 400 / 400 Balance 2748.75 / 2748.75 1103.75 / 1403.75 1300 / 1300 Lab / Micro Data Result Diagrams: 05/10/22 06:25 05/11/22 06:25 Labs: Laboratory Results - last 24 hr 05/11/22 06:25: Sodium 145, Potassium 3.7, Chloride 121 H, Carbon Dioxide 16.0 L , Anion Gap 8, BUN 40 H, Creatinine 2.11 H, Estim Creat Clear Calc 24.22, Est GFR (MDRD) Af Amer 39 L, Est GFR (MDRD) Non-Af 32 L, BUN/Creatinine Ratio 19.0, Glucose 104, Calcium 8.1 L Micro: Microbiology 05/07/22 17:20 Nasal Secretion SARS-CoV-2 & FLU Antigen (Rapid) - Final SARS-CoV-2 (COVID 19) Physical Exam Const alert, oriented x3 and no apparent distress HEENT head/scalp atraumatic, moist oral mucous membranes and oropharynx normal Mouth: oral and palatal mucosa normal Eyes PERRL and EOMs intact bilaterally Neck no lymphadenopathy, supple and no JVD Resp normal respiratory effort, no retractions, no use of accessory muscles and clear to auscultation bilaterally Cardio regular rate, regular rhythm, S1 normal heart sound, S2 normal heart sound and no murmurs GI normal to inspection, nondistended, normoactive bowel sounds, soft to palpation and non-distended Extremity normal to inspection, full ROM and no clubbing, cyanosis or edema Neuro oriented x3, CN's II-XII intact bilaterally, moves all extremities and no focal motor deficits Sensorium / Orientation: awake Psych affect normal Assessment & Plan Assessment/Plan (1) COVID-19: (2) MARCOS (acute kidney injury): (3) Diarrhea: QUALIFIERS: Diarrhea type: unspecified type Qualified Code(s): R19.7 - Diarrhea, unspecified PLAN: Plan #COVID 19 infection * Currently asymptomatic. On room air. * #MARCOS: * Cr is 2.11 down from 2.14 yesterday. baseline appears to be around 1.3. Will trend CR. Continue gentle hydration * nephrology on board * on bicarb #Diarrhea * still complaining of diarrhea * will order C diff; if negative, will give loperamide. * #6 CAD s/p CABG: Stable. on statin and carvedilol #Paroxysmal A. fib: On Eliquis. Currently rate controlled and on carvedilol #Sick sinus syndrome: Status post pacemaker placement #Chronic heart failure with reduced ejection fraction: * Has known EF of 20%. * not being diuresed due to MARCOS * Pancytopenia * may be due to covid, as baseline platelets are ~ 227; now 98. Hb is 9.3 and wbc is 2.4 with a baseline of 6.1. * will monitor * #DVT prophylaxis: on eliquis. Charges/Coding Visit Charges Inpatient E&M: 68299 Subs Hosp L2
[2022-05-11] MEDS: Sodium Bicarbonate 650 MG Tablet PO ×2 (14:16→22:29)
[2022-05-11 17:01] VITALS: BP 133/80; PULSE 84; RESP 18; TEMP 36.3; O2SAT 97
[2022-05-11] MEDS: Atorvastatin Calcium 40 MG Tablet PO (22:30)
[2022-05-11 22:44] VITALS: BP 127/94; PULSE 62; RESP 18; TEMP 36.7; O2SAT 99
[2022-05-12 05:41] VITALS: BP 135/77; PULSE 107; RESP 16; TEMP 36.8; O2SAT 96
[2022-05-12 06:36] LABS: Absolute Lymphocyte Count 0.75 X10^3/uL (0.83-4.51); Absolute Neutrophil Count 1.8 X10^3/uL (2.0-7.7); Eosinophil# 0.05 X10^3/uL; Eosinophils% 1.8 % (0-5); Hematocrit 27.3 % (40-54); Hemoglobin 9.1 g/dL (13.0-16.5); Lymphocyte # 0.75 X10^3/ul (0.83-4.51); Lymphocyte % 26.4 % (19-41); Mean Corp Hgb Conc 33.3 g/dL (32-36); Mean Corpuscular Hgb 33.6 pg (27.0-32.0); Mean Corpuscular Volume 100.7 fL (80-94); Mean Platelet Vol. 10.5 fl (6.2-12.0); Monocyte# 0.22 X10^3/uL; Monocyte% 7.7 % (0-10); NRBC Flagged by Analyzer 0 % (0-5); Neutrophil # 1.81 X10^3/uL (2.7-7.7); Neutrophil % 63.7 % (47-70); POSITIVE COUNT YES; Platelet Count 88 K/mm3 (150-450); RBC Distribution Width CV 15.5 % (11.6-14.6); RBC Distribution Width SD 56.4 fl (35.1-43.9); Red Blood Count 2.71 M/mm3 (4.6-6.2); White Blood Count 2.8 K/mm3 (4.4-11.0)
[2022-05-12 06:58] LABS: Albumin, Serum 3.2 g/dL (3.2-5.0); BUN 34 mg/dL (7-18); BUN/Creat Ratio 17.4 RATIO (10-20); Calcium,Total 8.2 mg/dL (8.5-10.1); Chloride 117 mmol/L (98-107); Creatinine, Serum 1.95 mg/dL (0.70-1.30); EST Glomerular Filtration Rate 35 mL/min (>60); Est Glom Filt Rate - Afr Amer 42 mL/min (>60); Estimated Creatinine Clearance 26.21 ml/min; Glucose 116 mg/dL (74-106); Magnesium 1.1 mg/dL (1.6-2.6); Phosphorus 3.6 mg/dL (2.5-4.9); Potassium 3.5 mmol/L (3.5-5.1); Sodium Level 143 mmol/L (136-145)
[2022-05-12] MEDS: Magnesium Sulfate 4gm/100mL 4 GM/100 ML IV.SOLN. IV (09:06)
[2022-05-12] MEDS: 0.9% Normal Saline 1,000 ML 60 ML IV (09:06)
[2022-05-12 09:17] VITALS: BP 156/83; PULSE 64; RESP 18; TEMP 36.3; O2SAT 98
[2022-05-12] MEDS: Allopurinol 100 MG Tablet PO (09:33)
[2022-05-12] MEDS: Sodium Bicarbonate 650 MG Tablet PO ×2 (09:33→20:57)
[2022-05-12] MEDS: Menthol/Lanolin/Calamine/Znox 113 GM Tube 1 APPLIC TOPICAL ×2 (09:33→20:57)
[2022-05-12] MEDS: Carvedilol 12.5 MG Tablet PO ×2 (09:33→20:57)
[2022-05-12] MEDS: APIXABAN 2.5 MG TABLET PO ×2 (09:33→20:57)
--- NOTE | 2022-05-12 10:49 | PCM.PN.REN ---
Subjective Subjective Following for MARCOS Sitting in chair, no overnight events. Denies any complaints today Objective Data Objective Data Vital Signs: Vital Signs Temp Pulse Resp BP Pulse Ox O2 Del Method O2 Flow Rate 97.4 F L 64 18 156/83 H 98 Room Air 97 05/12/22 09:17 05/12/22 09:17 05/12/22 09:17 05/12/22 09:17 05/12/22 09:17 05/12/22 09:29 05/08/22 08:00 Oxygen Flow Rate (L/min) 97 Oxygen Delivery Method Room Air Weight: 66.9 kg Body Mass Index (BMI) 20.5 Intake & Output: Intake and Output for Last 24 Hours 05/10/22 05/11/22 05/12/22 23:59 23:59 23:59 Intake Total 1503.75 / 1803.75 3268 / 3268 961 / 961 Output Total 400 / 400 Balance 1103.75 / 1403.75 3268 / 3268 961 / 961 Lab / Micro Data Result Diagrams: 05/12/22 06:20 05/12/22 06:20 Labs: Laboratory Results - last 24 hr 05/12/22 06:20: Sodium 143, Potassium 3.5, Chloride 117 H, Carbon Dioxide 17.0 L, BUN 34 H, Creatinine 1.95 H, Estim Creat Clear Calc 26.21, Est GFR (MDRD) Af Amer 42 L, Est GFR (MDRD) Non-Af 35 L, BUN/Creatinine Ratio 17.4, Glucose 116 H, Calcium 8.2 L, Phosphorus 3.6, Magnesium 1.1 L, Albumin 3.2 05/12/22 06:20: WBC 2.8 L, RBC 2.71 L, Hgb 9.1 L, Hct 27.3 L, MCV 100.7 H, MCH 33.6 H, MCHC 33.3, RDW Std Deviation 56.4 H, RDW Coeff of Vanesa 15.5 H, Plt Count 88 L, MPV 10.5, Immature Gran % (Auto) 0.400, Neut % (Auto) 63.7, Lymph % (Auto) 26.4, [place] % (Auto) 7.7, Eos % (Auto) 1.8, Baso % (Auto) 0.0, Absolute Neuts (auto) 1.8 L, Absolute Lymphs (auto) 0.75 L, Nucleated RBC % 0 Micro: Microbiology 05/11/22 17:06 Stool C. difficile DNA Amplification - Final 05/07/22 17:20 Nasal Secretion SARS-CoV-2 & FLU Antigen (Rapid) - Final SARS-CoV-2 (COVID 19) Physical Exam Narrative Const: Alert and oriented x3. No apparent distress HEENT: Head is normocephalic, atraumatic, oral mucosa and lips dry Respiratory: Lung sounds clear anteriorly and posteriorly, no wheezes, rhonchi or rales noted Cardio: S1, S2, RRR, no murmur rubs or gallops GI: Abdomen soft, nontender, positive bowel sounds Extremities: No edema Assessment & Plan Assessment/Plan (1) MARCOS (acute kidney injury): (2) COVID-19: (3) Hypokalemia: (4) Congestive heart failure: PLAN: Plan - Nonoliguric, mildly hypovolemic MARCOS. MARCOS likely from infection with possible component of volume depletion (poor oral intake, daily diarrhea) with current Entresto use. Creatinine 1.9 mg/dL on admission, peaked 2.14 mg/dL on 05/10 and is currently 1.95mg/dL. Patient is nonoliguric and mildly hypovolemic on exam. He is on IVF and tolerating IVF with no fluid overload noted. He has been having diarrhea daily. Continue holding Entresto. 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 Renal ultrasound noted, did show mild bilateral hydronephrosis. Bladder volume of 336 mL. Patient is standing when he urinates. Does not need Sinclair at this time. UA noted, protein 100, occult blood 25, leukocyte esterase negative. - Hypokalemia: Likely from diarrhea and poor oral intake. Improved. Patient does not need renal diet restrictions. Encouraged patient to increase solute/fluid intake. - Mild metabolic acidosis: Likely from MARCOS and diarrhea. Improved. Continue oral bicarb. - mag 1.1, replacement ordered - bps acceptable on Coreg - CKD stage III, baseline creatinine ranging 1 to 1.3 mg/dL. - COVID-19 infection. Patient currently has mild symptoms, he is not requiring any supplemental oxygen and is on room air. Lung sounds are clear. CXR admission no acute cardiopulmonary abnormality, no consolidation, effusion or edema. Patient did not receive remdesivir nor Decadron. -Diarrhea; Cdiff negative - discussed with primary team
--- NOTE | 2022-05-12 11:28 | PN.HOSP_ITS ---
Subjective Subjective Patient seen and examined. He is still having diarrhea. He denies any other complaints. Review of systems is otherwise negative. He remains on room air. Objective Data Objective Data Vital Signs: Vital Signs Temp Pulse Resp BP Pulse Ox O2 Del Method O2 Flow Rate 97.4 F L 64 18 156/83 H 98 Room Air 97 05/12/22 09:17 05/12/22 09:17 05/12/22 09:17 05/12/22 09:17 05/12/22 09:17 05/12/22 09:29 05/08/22 08:00 Oxygen Flow Rate (L/min) 97 Oxygen Delivery Method Room Air Weight: 147 lb 7.828 oz Body Mass Index (BMI) 20.5 Intake & Output: Intake and Output for Last 24 Hours 05/10/22 05/11/22 05/12/22 23:59 23:59 23:59 Intake Total 1503.75 / 1803.75 3268 / 3268 961 / 961 Output Total 400 / 400 Balance 1103.75 / 1403.75 3268 / 3268 961 / 961 Lab / Micro Data Result Diagrams: 05/12/22 06:20 05/12/22 06:20 Labs: Laboratory Results - last 24 hr 05/12/22 06:20: Sodium 143, Potassium 3.5, Chloride 117 H, Carbon Dioxide 17.0 L , BUN 34 H, Creatinine 1.95 H, Estim Creat Clear Calc 26.21, Est GFR (MDRD) Af Amer 42 L, Est GFR (MDRD) Non-Af 35 L, BUN/Creatinine Ratio 17.4, Glucose 116 H, Calcium 8.2 L, Phosphorus 3.6, Magnesium 1.1 L, Albumin 3.2 05/12/22 06:20: WBC 2.8 L, RBC 2.71 L, Hgb 9.1 L, Hct 27.3 L, MCV 100.7 H, MCH 33.6 H, MCHC 33.3, RDW Std Deviation 56.4 H, RDW Coeff of Vanesa 15.5 H, Plt Count 88 L, MPV 10.5, Immature Gran % (Auto) 0.400, Neut % (Auto) 63.7, Lymph % (Auto) 26.4, [place] % (Auto) 7.7, Eos % (Auto) 1.8, Baso % (Auto) 0.0, Absolute Neuts (auto) 1.8 L, Absolute Lymphs (auto) 0.75 L, Nucleated RBC % 0 Micro: Microbiology 05/11/22 17:06 Stool C. difficile DNA Amplification - Final 05/07/22 17:20 Nasal Secretion SARS-CoV-2 & FLU Antigen (Rapid) - Final SARS-CoV-2 (COVID 19) Physical Exam Const alert, oriented x3 and no apparent distress HEENT head/scalp atraumatic, moist oral mucous membranes and oropharynx normal Eyes PERRL and EOMs intact bilaterally Neck no lymphadenopathy, supple and no JVD Resp normal respiratory effort, no retractions, no use of accessory muscles and clear to auscultation bilaterally Cardio regular rate, regular rhythm, S1 normal heart sound, S2 normal heart sound and no murmurs GI normal to inspection, nondistended, normoactive bowel sounds and soft to palpation Extremity normal to inspection, full ROM and no clubbing, cyanosis or edema Neuro oriented x3, CN's II-XII intact bilaterally, moves all extremities and no focal motor deficits Sensorium / Orientation: awake and alert Psych affect normal Assessment & Plan Assessment/Plan (1) COVID-19: (2) MARCOS (acute kidney injury): (3) Diarrhea: QUALIFIERS: Diarrhea type: unspecified type Qualified Code(s): R19.7 - Diarrhea, unspecified PLAN: Plan #COVID 19 infection * Currently asymptomatic. On room air. * #MARCOS: * Cr is down to 1.95. Baseline appears to be around 1.3. Will trend Cr. * nephrology on board * on bicarb #Diarrhea * still having diarrhea * C diff is negative. Will therefore start loperamide. * * #CAD s/p CABG: Stable. on statin and carvedilol #Hypomagnesemia: Mg is 1.1. Will replace aggressively and trend. #Paroxysmal A. fib: On Eliquis. Currently rate controlled and on carvedilol #Sick sinus syndrome: Status post pacemaker placement #Chronic heart failure with reduced ejection fraction: * Has known EF of 20%. * not being diuresed due to MARCOS * Pancytopenia * may be due to covid, as baseline platelets are ~ 227; now down to 88 today. Hb is 9.1 and wbc is now 2.8 with a baseline of 6.1. * will monitor * #DVT prophylaxis: on eliquis. Charges/Coding Visit Charges Inpatient E&M: 05569 Subs Hosp L2
[2022-05-12] MEDS: Loperamide 2 MG Capsule PO ×2 (12:41→22:20)
[2022-05-12 15:11] VITALS: O2SAT 98
[2022-05-12] MEDS: Psyllium 1 PACKET PO (17:07)
[2022-05-12 20:00] VITALS: BP 131/84; PULSE 65; RESP 18; TEMP 36.9; O2SAT 94
[2022-05-12] MEDS: Atorvastatin Calcium 40 MG Tablet PO (20:57)
[2022-05-13 04:45] VITALS: BP 118/83; PULSE 67; RESP 18; TEMP 36.3; O2SAT 98
[2022-05-13] MEDS: 0.9% Normal Saline 1,000 ML 60 ML IV (05:00)
[2022-05-13 06:59] LABS: Absolute Lymphocyte Count 0.78 X10^3/uL (0.83-4.51); Absolute Neutrophil Count 1.6 X10^3/uL (2.0-7.7); Eosinophil# 0.04 X10^3/uL; Eosinophils% 1.5 % (0-5); Hematocrit 25.9 % (40-54); Hemoglobin 8.6 g/dL (13.0-16.5); Lymphocyte # 0.78 X10^3/ul (0.83-4.51); Lymphocyte % 29.9 % (19-41); Mean Corp Hgb Conc 33.2 g/dL (32-36); Mean Corpuscular Hgb 33.3 pg (27.0-32.0); Mean Corpuscular Volume 100.4 fL (80-94); Mean Platelet Vol. 10.9 fl (6.2-12.0); Monocyte# 0.22 X10^3/uL; Monocyte% 8.4 % (0-10); NRBC Flagged by Analyzer 0 % (0-5); Neutrophil # 1.55 X10^3/uL (2.7-7.7); Neutrophil % 59.4 % (47-70); POSITIVE COUNT YES; Platelet Count 76 K/mm3 (150-450); RBC Distribution Width CV 15.3 % (11.6-14.6); RBC Distribution Width SD 56.4 fl (35.1-43.9); Red Blood Count 2.58 M/mm3 (4.6-6.2); White Blood Count 2.6 K/mm3 (4.4-11.0)
[2022-05-13 07:32] LABS: Albumin, Serum 2.9 g/dL (3.2-5.0); BUN 34 mg/dL (7-18); Calcium,Total 8.2 mg/dL (8.5-10.1); Chloride 115 mmol/L (98-107); Creatinine, Serum 1.62 mg/dL (0.70-1.30); EST Glomerular Filtration Rate 43 mL/min (>60); Est Glom Filt Rate - Afr Amer 52 mL/min (>60); Estimated Creatinine Clearance 31.55 ml/min; Glucose 101 mg/dL (74-106); Potassium 3.3 mmol/L (3.5-5.1); Sodium Level 141 mmol/L (136-145)
[2022-05-13] MEDS: APIXABAN 2.5 MG TABLET PO (08:52)
[2022-05-13] MEDS: Allopurinol 100 MG Tablet PO (08:52)
[2022-05-13] MEDS: Potassium Chloride Oral Tablet 20 MEQ 40 MEQ PO (08:52)
[2022-05-13] MEDS: Sodium Bicarbonate 650 MG Tablet PO ×2 (08:52→13:35)
[2022-05-13] MEDS: Carvedilol 12.5 MG Tablet PO (08:52)
[2022-05-13] MEDS: Menthol/Lanolin/Calamine/Znox 113 GM Tube 1 APPLIC TOPICAL (08:54)
[2022-05-13 08:55] VITALS: BP 119/75; PULSE 85; RESP 16; TEMP 36.6; O2SAT 96
--- NOTE | 2022-05-13 10:22 | CASEMGMT ---
Addendum entered by Johanna Santiago 05/13/22 12:06: Discussed pt ambulatory status with pt nurse, no homegoing services other than referral to [facility]. Original Note: Pt planned to dc today. Referral sent for [facility]. No HHC needed at this time.
--- NOTE | 2022-05-13 11:15 | PN.RENAL_ITS ---
Subjective Subjective Following for MARCOS Sitting in chair, denies any complaints and hopeful to go home today. States diarrhea has improved. Objective Data Objective Data Vital Signs: Vital Signs Temp Pulse Resp BP Pulse Ox O2 Del Method O2 Flow Rate 98 F 85 16 119/75 96 Room Air 97 05/13/22 08:55 05/13/22 08:55 05/13/22 08:55 05/13/22 08:55 05/13/22 08:55 05/13/22 09:24 05/08/22 08:00 Oxygen Flow Rate (L/min) 97 Oxygen Delivery Method Room Air Weight: 66.9 kg Body Mass Index (BMI) 20.5 Intake & Output: Intake and Output for Last 24 Hours 05/11/22 05/12/22 05/13/22 23:59 23:59 23:59 Intake Total 3268 / 3268 1711 / 1711 954 / 954 Balance 3268 / 3268 1711 / 1711 954 / 954 Lab / Micro Data Result Diagrams: 05/13/22 06:20 05/13/22 06:20 Labs: Laboratory Results - last 24 hr 05/13/22 06:20: WBC 2.6 L, RBC 2.58 L, Hgb 8.6 L, Hct 25.9 L, MCV 100.4 H, MCH 33.3 H, MCHC 33.2, RDW Std Deviation 56.4 H, RDW Coeff of Vanesa 15.3 H, Plt Count 76 L, MPV 10.9, Immature Gran % (Auto) 0.800, Neut % (Auto) 59.4, Lymph % (Auto) 29.9, [place] % (Auto) 8.4, Eos % (Auto) 1.5, Baso % (Auto) 0.0, Absolute Neuts (auto) 1.6 L, Absolute Lymphs (auto) 0.78 L, Nucleated RBC % 0 05/13/22 06:20: Sodium 141, Potassium 3.3 L, Chloride 115 H, Carbon Dioxide 16.0 L, BUN 34 H, Creatinine 1.62 H, Estim Creat Clear Calc 31.55, Est GFR (MDRD) Af Amer 52 L, Est GFR (MDRD) Non-Af 43 L, BUN/Creatinine Ratio 21.0 H, Glucose 101, Calcium 8.2 L, Phosphorus 3.0, Magnesium 2.0, Albumin 2.9 L Micro: Microbiology 05/11/22 17:06 Stool C. difficile DNA Amplification - Final 05/07/22 17:20 Nasal Secretion SARS-CoV-2 & FLU Antigen (Rapid) - Final SARS-CoV-2 (COVID 19) Physical Exam Narrative Const: Alert and oriented x3. No apparent distress HEENT: Head is normocephalic, atraumatic, oral mucosa and lips dry Respiratory: Lung sounds clear anteriorly and posteriorly, no wheezes, rhonchi or rales noted Cardio: S1, S2, RRR, no murmur rubs or gallops GI: Abdomen soft, nontender, positive bowel sounds Extremities: No edema Assessment & Plan Assessment/Plan (1) MARCOS (acute kidney injury): (2) COVID-19: (3) Hypokalemia: (4) Congestive heart failure: PLAN: Plan - Nonoliguric, mildly hypovolemic MARCOS. MARCOS likely from infection with possible component of volume depletion (poor oral intake, daily diarrhea) with current Entresto use. Creatinine 1.9 mg/dL on admission, peaked 2.14 mg/dL on 05/10 and is currently 1.62mg/dL. Patient is nonoliguric and mildly hypovolemic on exam. He is on IVF and tolerating IVF with no fluid overload noted. He had been having diarrhea daily but today states diarrhea has improved, he is taking immodium prn. Continue holding Entresto. 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 Renal ultrasound noted, did show mild bilateral hydronephrosis. Bladder volume of 336 mL. Patient is standing when he urinates. Does not need Sinclair at this time. UA noted, protein 100, occult blood 25, leukocyte esterase negative. - will stop IVF at this time as renal function improving, oral appetite improving and diarrhea has improved. - Hypokalemia: Likely from diarrhea and poor oral intake. Patient does not need renal diet restrictions. Encouraged patient to increase solute/fluid intake. - Mild metabolic acidosis: Likely from MARCOS and diarrhea. Stable. Continue oral bicarb, will increase to tid. - 05/12 mag 1.1, IVPB replacement given and today has improved to 2.0. - bps acceptable on Coreg - CKD stage III, baseline creatinine ranging 1 to 1.3 mg/dL. - COVID-19 infection. Patient currently has mild symptoms, he is not requiring any supplemental oxygen and is on room air. Lung sounds are clear. CXR admission no acute cardiopulmonary abnormality, no consolidation, effusion or edema. Patient did not receive remdesivir nor Decadron. -Diarrhea improving; Cdiff negative - ok for discharge per renal when cleared by primary team. Will arrange for hospital follow-up.
[2022-05-13] MEDS: Psyllium 1 PACKET PO (12:09)
--- NOTE | 2022-05-13 12:19 | DS.PCM_ITS ---
Providers Date of Admission: 05/07/22 Primary Care Physician: Dr. Yris Culver MD Consultations 05/09/22 08:00 Consult: Nephrology Routine Consulting Provider: Daniela Yeung Reason for Consult: marocs EMERGENT Consult: No MD Notified: Yes Date Notified: 05/09/22 Time Notified: 08:00 Method of Notification: Verbal Reason For Visit: MARCOS, COVID Diagnosis Discharge Diagnosis (1) MARCOS (acute kidney injury): Status: Acute Code(s): N17.9 - Acute kidney failure, unspecified (2) COVID-19: Status: Acute Code(s): U07.1 - COVID-19 (3) Hypokalemia: Status: Acute Code(s): E87.6 - Hypokalemia (4) Congestive heart failure: Status: Ruled-out Code(s): I50.9 - Heart failure, unspecified Plan #COVID 19 infection * Currently asymptomatic. On room air. * #MARCOS: * Cr is down to 1.95. Baseline appears to be around 1.3. Will trend Cr. * nephrology on board * on bicarb #Diarrhea * still having diarrhea * C diff is negative. Will therefore start loperamide. * * #CAD s/p CABG: Stable. on statin and carvedilol #Hypomagnesemia: Mg is 1.1. Will replace aggressively and trend. #Paroxysmal A. fib: On Eliquis. Currently rate controlled and on carvedilol #Sick sinus syndrome: Status post pacemaker placement #Chronic heart failure with reduced ejection fraction: * Has known EF of 20%. * not being diuresed due to MARCOS * Pancytopenia * may be due to covid, as baseline platelets are ~ 227; now down to 88 today. Hb is 9.1 and wbc is now 2.8 with a baseline of 6.1. * will monitor * #DVT prophylaxis: on eliquis. Medications at Discharge Home Medications allopurinol 100 mg tablet 100 mg PO BID Gout 11/24/18 atorvastatin 40 mg tablet 40 mg PO QHS Cholesterol 11/24/18 pyridoxine (vitamin B6) 100 mg tablet 100 mg PO DAILY supplement 11/24/18 apixaban 2.5 mg tablet 2.5 mg PO BID Blood thinner 12/02/20 albuterol sulfate 90 mcg/actuation aerosol inhaler 2 puff inhalation Q4H PRN shortness of breath or wheezing #8.5 grams 12/25/20 ascorbate calcium (vitamin C) 500 mg tablet 500 mg PO DAILY supplement 12/25/20 coenzyme [id number] E 100 mg-100 unit capsule 1 cap PO DAILY supplement 12/25/20 mecobalamin (vitamin B12) 1,000 mcg disintegrating tablet,sublingual 1,000 mcg sublingual DAILY supplement 12/25/20 zinc 50 mg tablet 50 mg PO DAILY supplement 12/25/20 spironolactone 100 mg tablet 25 mg PO LUNCH diuretic 03/06/22 cholecalciferol (vitamin D3) 50 mcg (2,000 unit) tablet 50 mcg PO DAILY #1 TAB 03/09/22 carvedilol 25 mg tablet 12.5 mg PO BID HTN 05/07/22 sacubitril 49 mg-valsartan 51 mg tablet (Entresto) 1 tab PO BID heart failure 05/07/22 sodium bicarbonate 650 mg tablet 650 mg PO TID #15 tabs 05/13/22 Hospital Course Operations None Procedures None Summary of Care Provided Minutes Spent on Discharge: 45 Hospital Course: Patient is an 86 y/o male with a PMH as outlined who was admitted via the ED with a complaint of genrealised weakness for 2 days prior to admission. He had an associated nonproductive cough and a headache. He tested positive for covid. He was admitted and managed for debility due to COVID 19 infection. He also had elevated Cr and was managed for MARCOS. Nephrology was consulted. HE remained on room air throughout admission. Hospital course was complicated by diarrhea. COVID test was negative. Diarrhea improved with administartion of loperamide and psyllium husk. Kidney function also improved. He felt much better and was discharged home on 05/13/2022.He was discharged on sodium bicarbonate 650mg bid. He is to follow up with his PCP and nephrology within 1-2 weeks. Patient seen and examined prior to discharge. He was eating breakfast. He had no active complaints and was eating breakfast. Diarrhea had improved, and review of systems was otherwise negative. Labs and vitals reviewed. Home meds reviewed and reconciled. Physical Exam Const alert, oriented x3 and no apparent distress General Appearance: cooperative, comfortable and well kempt Orientation / Consciousness: awake HEENT normocephalic, head/scalp atraumatic, hearing grossly normal bilaterally, moist oral mucous membranes and oropharynx normal Eyes PERRL and EOMs intact bilaterally Neck no lymphadenopathy, supple and no JVD Resp normal respiratory effort, no retractions, no use of accessory muscles and clear to auscultation bilaterally Cardio regular rate, regular rhythm, S1 normal heart sound, S2 normal heart sound and no murmurs GI normal to inspection, nondistended, normoactive bowel sounds, soft to palpation and non-distended Extremity normal to inspection, full ROM and no clubbing, cyanosis or edema Skin no rashes or lesions noted Neuro oriented x3, CN's II-XII intact bilaterally, moves all extremities and no focal motor deficits Sensorium / Orientation: awake and alert Psych affect normal Weight / BMI Weight Weight: 147 lb 7.828 oz Body Mass Index (BMI) 20.5 ABG / Lab / Microbiology Data Result Diagrams: 05/13/22 06:20 05/13/22 06:20 Laboratory: Laboratory Results - last 24 hr 05/13/22 06:20: WBC 2.6 L, RBC 2.58 L, Hgb 8.6 L, Hct 25.9 L, MCV 100.4 H, MCH 33.3 H, MCHC 33.2, RDW Std Deviation 56.4 H, RDW Coeff of Vanesa 15.3 H, Plt Count 76 L, MPV 10.9, Immature Gran % (Auto) 0.800, Neut % (Auto) 59.4, Lymph % (Auto) 29.9, Dooly % (Auto) 8.4, Eos % (Auto) 1.5, Baso % (Auto) 0.0, Absolute Neuts (auto) 1.6 L, Absolute Lymphs (auto) 0.78 L, Nucleated RBC % 0 05/13/22 06:20: Sodium 141, Potassium 3.3 L, Chloride 115 H, Carbon Dioxide 16.0 L, BUN 34 H, Creatinine 1.62 H, Estim Creat Clear Calc 31.55, Est GFR (MDRD) Af Amer 52 L, Est GFR (MDRD) Non-Af 43 L, BUN/Creatinine Ratio 21.0 H, Glucose 101, Calcium 8.2 L, Phosphorus 3.0, Magnesium 2.0, Albumin 2.9 L Microbiology: Microbiology 05/11/22 17:06 Stool C. difficile DNA Amplification - Final 05/07/22 17:20 Nasal Secretion SARS-CoV-2 & FLU Antigen (Rapid) - Final SARS-CoV-2 (COVID 19) D/C Instructions Discharge Diet: Low fat / Low cholesterol Discharge Activity: Return to Normal Activity Weight Bearing Status: Weight bearing as tolerated Call your doctor if you observe: Fever of 101 or Higher, Shortness of breath, Dizziness, Swelling in the ankles and Chest pain Meaningful Use Info Meaningful Use Diagnoses (Choose all that apply): None applicable Discharge Plan Admission Admit Date/Time: 05/07/22 18:30 Primary Reason for Your Visit: acute covid infection, MARCOS Attending Provider: Yaneli Cortés Primary Care Provider: Yris Culver Consulting Providers: Daniela Yeung ; Mitch Pablo Instructions Patient Instructions: Coronavirus Disease 2019 (COVID-19): Overview, Acute Kidney Failure Dc Discharge Orders/Prescriptions Prescriptions: New sodium bicarbonate 650 mg Tablet 650 mg PO TID Qty: 15 0RF Continued mecobalamin (vitamin B12) 1,000 mcg tablet,disintegrating 1,000 mcg SUBLINGUAL DAILY Rx Instructions: place tablet under tongue and allow to dissolve for at least30 secs before swallowing zinc 50 mg tablet 50 mg PO DAILY ascorbate calcium (vitamin C) 500 mg tablet 500 mg PO DAILY coenzyme [id number] E 100 mg-100 unit capsule 100-100 mg-unit capsule 1 cap PO DAILY albuterol sulfate 90 mcg/actuation HFA aerosol inhaler 2 puff INHALATION Q4H PRN (Reason: shortness of breath or wheezing) Qty: 8.5 6RF Rx Instructions: administer with spacer spironolactone 100 mg tablet 25 mg PO LUNCH atorvastatin 40 MG tablet 40 mg PO QHS allopurinol 100 MG tablet 100 mg PO BID pyridoxine (vitamin B6) 100 MG tablet 100 mg PO DAILY apixaban 2.5 MG tablet 2.5 mg PO BID Label Comments: TAKE 1 TABLET BY MOUTH TWICE DAILY carvedilol 25 mg tablet 12.5 mg PO BID Label Comments: TAKE 1 TABLET BY MOUTH TWICE DAILY (MUST ADMINISTER WITH A MEAL/FOOD) Entresto 49-51 mg Tablet 1 tab PO BID cholecalciferol (vitamin D3) 50 mcg (2,000 unit) tablet 50 mcg PO DAILY Qty: 1 0RF Referrals / Follow Up: Yris Culver MD [Primary Care Provider] - Within 2 Weeks Daniela Yeung MD [STAFF PHYSICIAN] - Within 2 Weeks Disposition Disposition (needs filled in before D/C Order can be placed): Home, Self Care Charges/Coding Visit Charges Inpatient E&M: 73285 Disch Hosp
== END 2022-05-13 14:05 | disposition home or self-care (01) | DRG 682 ==
LOC: ED 18:28 → MS3 18:43
PROVIDERS: Nurse Practitioner Adult Health; Physician Assistant; Admitting Provider Internal Medicine; Emergency Provider Emergency Medicine; PCP Internal Medicine; Visit Provider Student in an Organized Health Care Education/Training Program
DX: N17.9 Acute kidney failure, unspecified (principal); U07.1 COVID-19; D61.818 Other pancytopenia; I50.22 Chronic systolic (congestive) heart failure; I49.5 Sick sinus syndrome; D63.8 Anemia in other chronic diseases classified elsewhere; I48.0 Paroxysmal atrial fibrillation; E86.0 Dehydration; E83.42 Hypomagnesemia; I11.0 Hypertensive heart disease with heart failure; E86.1 Hypovolemia; I25.10 Atherosclerotic heart disease of native coronary artery without angina pectoris; E87.6 Hypokalemia; R19.7 Diarrhea, unspecified; Z79.01 Long term (current) use of anticoagulants; Z79.899 Other long term (current) drug therapy; Z95.0 Presence of cardiac pacemaker; Z95.1 Presence of aortocoronary bypass graft
CPT/HCPCS: 36415; 71045; 76770; 80048; 80069; 81001; 83735; 85025; 87428; 87493; 93005; 97110; 97161; 97530; 99284; J7030; J7040; A4216

== ENCOUNTER 2022-07-13 08:23 | Inpatient (IN) | payer MEDICARE, OTHER, SELFPAY ==
[2022-07-13] VITALS (12 sets, daily range): BP systolic 127–149; BP diastolic 77–106; PULSE 61–104; RESP 15–27; TEMP 36.1–36.9; O2SAT 86–100; BMI 21.5; BMI 22.4
--- NOTE | 2022-07-13 08:55 | RAD_ITS ---
STUDY: X-RAY CHEST REASON FOR EXAM: Male, 86 years old. chest pain TECHNIQUE: Single AP portable view of the chest. COMPARISON: 01/05/2022 FINDINGS: Left subclavian pacemaker which is unchanged. Status post median sternotomy. The lungs are clear and expanded. Small bilateral pleural effusions. There is moderate cardiac enlargement. Normal mediastinum and moise. There is prominence of the pulmonary hilar arteries and peripheral pulmonary arteries, consistent with congestive heart failure (CHF). Normal visualized aortic arch and descending thoracic aorta. Normal visualized thoracic spine. Normal visualized ribs, clavicles, and shoulders. There is no demonstrated abnormality of the visualized soft tissue structures of the upper abdomen. RAD/Chest 1 View (Portable) IMPRESSION: Mild congestive heart failure with small bilateral pleural effusions. Electronically Signed: Myles Carias MD at 10:03 EDT ,
--- NOTE | 2022-07-13 08:55 | EKG12_ITS ---
Test Reason : CP Blood Pressure : / mmHG Vent. Rate : 086 BPM Atrial Rate : 240 BPM P-R Int : 000 ms QRS Dur : 106 ms QT Int : 404 ms P-R-T Axes : 000 -20 162 degrees QTc Int : 483 ms Atrial flutter with variable A-V block with premature ventricular or aberrantly conducted complexes Incomplete right bundle branch block Nonspecific ST and T wave abnormality Prolonged QT Abnormal ECG Confirmed by BERTHA MENSAH, JOSE ([id number]), editor sound SHANELL HUFFMAN ([id number]) on 07/15/2022 10:54:04 AM Referred By: CHERYL Confirmed By:JOSE TSONE MD
[2022-07-13] MEDS: Aspirin 81 MG TAB.CHEW 324 MG PO (09:05)
[2022-07-13 09:08] LABS: Absolute Lymphocyte Count 0.87 X10^3/uL (0.83-4.51); Basophil# 0.03 X10^3/uL; Basophil% 0.7 % (0-1); Eosinophil# 0.25 X10^3/uL; Eosinophils% 5.5 % (0-5); Hematocrit 30.3 % (40-54); Hemoglobin 9.9 g/dL (13.0-16.5); Lymphocyte # 0.87 X10^3/ul (0.83-4.51); Lymphocyte % 19.1 % (19-41); Mean Corp Hgb Conc 32.7 g/dL (32-36); Mean Corpuscular Hgb 34.3 pg (27.0-32.0); Mean Corpuscular Volume 104.8 fL (80-94); Mean Platelet Vol. 11.1 fl (6.2-12.0); Monocyte# 0.45 X10^3/uL; Monocyte% 9.9 % (0-10); NRBC Flagged by Analyzer 0 % (0-5); Neutrophil # 2.95 X10^3/uL (2.7-7.7); Neutrophil % 64.6 % (47-70); Platelet Count 184 K/mm3 (150-450); RBC Distribution Width CV 15.5 % (11.6-14.6); RBC Distribution Width SD 58.3 fl (35.1-43.9); Red Blood Count 2.89 M/mm3 (4.6-6.2); White Blood Count 4.6 K/mm3 (4.4-11.0)
--- NOTE | 2022-07-13 09:10 | ED.VIS.CHEST ---
HPI History of Present Illness Chief Complaint: Chest Pain Narrative Narrative: 86-year-old male presenting with chest pain which has had for a couple of days. He states is getting worse. He still describes the pain as related to his previous bypass pain. He has not taken anything for pain. He states he does not like to take medications. He states he was going to see Dr. Shruti Carrillo today but decided to come to the emergency room. He is currently anticoagulated on Eliquis. He has a history of atrial fibrillation and a pacemaker placement. The patient's states that they were recently seen by Dr. Culver on the first and were put on a several day supply of Lasix, but the discontinued using this. She states that ever since the patient had COVID-19 beginning on 04/27/2022 the patient has had chronic diarrhea. She feels of the Lasix makes this worse. The patient has had daily diarrhea since then. Patient's also states that they went to their kidney doctor in the [facility] system (Dr. Art) 07/10/2022, and they were told that the heart and kidneys were not working really well together and a prescription was written for torsemide 10 mg p.o. daily which the patient took this morning. The patient is also on spironolactone. Patient does report increased shortness of breath. This is worse with exertion. He states his lower extremity edema is also worse. He denies a fever but states he has had little bit of a cough. He states this is from his air conditioner at home. [facility] Medical History Acute electrocardiogram changes Anemia Brain bleed Carotid artery disease Chronic kidney disease (CKD) Congestive heart failure COVID-19 Diarrhea Elevated troponin Generalized weakness Hypokalemia Home Medications allopurinol 100 mg tablet 100 mg PO BID Gout 11/24/18 [History Last Taken 05/07/22] atorvastatin 40 mg tablet 40 mg PO QHS Cholesterol 11/24/18 [History Last Taken 05/06/22] pyridoxine (vitamin B6) 100 mg tablet 100 mg PO DAILY supplement 11/24/18 [History Last Taken 05/07/22] apixaban 2.5 mg tablet 2.5 mg PO BID Blood thinner 12/02/20 [History Last Taken 05/07/22] albuterol sulfate 90 mcg/actuation aerosol inhaler 2 puff inhalation Q4H PRN shortness of breath or wheezing #8.5 grams 12/25/20 [Rx Last Taken Unknown] ascorbate calcium (vitamin C) 500 mg tablet 500 mg PO DAILY supplement 12/25/20 [History Last Taken 05/07/22] coenzyme X54-[id number] E 100 mg-100 unit capsule 1 cap PO DAILY supplement 12/25/20 [History Last Taken 05/07/22] mecobalamin (vitamin B12) 1,000 mcg disintegrating tablet,sublingual 1,000 mcg sublingual DAILY supplement 12/25/20 [History Last Taken 05/07/22] zinc 50 mg tablet 50 mg PO DAILY supplement 12/25/20 [History Last Taken 05/07/22] spironolactone 100 mg tablet 25 mg PO LUNCH diuretic 03/06/22 [History Last Taken 05/07/22] cholecalciferol (vitamin D3) 50 mcg (2,000 unit) tablet 50 mcg PO DAILY #1 TAB 03/09/22 [Rx Last Taken 05/07/22] carvedilol 25 mg tablet 12.5 mg PO BID HTN 05/07/22 [History Last Taken 05/07/22] sacubitril 49 mg-valsartan 51 mg tablet (Entresto) 1 tab PO BID heart failure 05/07/22 [History Last Taken 05/07/22] sodium bicarbonate 650 mg tablet 650 mg PO TID #15 tabs 05/13/22 [Rx Last Taken Unknown] Allergy/AdvReac Type Severity Reaction Status Date / Time No Known Allergies Allergy Verified 05/07/22 17:00 Family History Father CAD (coronary artery disease) Surgical History History of brain surgery History of coronary artery bypass graft x 3 History of craniotomy History of permanent cardiac pacemaker placement Social History Smoking Status: Never smoker ROS ROS ED Constitutional Constitutional ED: Denies chills or fever(s) Eyes Eyes: Denies blurry vision or change in vision ENT ENT ED: Denies rhinorrhea or sore throat Cardiovascular Cardiovascular: Reports as per HPI Respiratory/Chest Respiratory/Chest: Reports dyspnea and dyspnea on exertion Gastrointestinal Gastrointestinal: Denies abdominal pain, melena or nausea Genitourinary Genitourinary ED: Denies dysuria or hematuria Musculoskeletal Musculoskeletal: Denies arthralgias or back pain Integumentary Denies abscess or Abrasions Neurologic Neurologic: Denies headache(s) or paresthesias Psychiatric Psychiatric: Denies anxiety or depression EXAM Physical Exam Const Vital Signs: 07/13/22 08:24 07/13/22 08:42 07/13/22 08:46 Temperature 96.9 F L Temperature Source Temporal Pulse Rate 86 87 Respiratory Rate 15 27 H Respiratory Effort Short of Breath Respiratory Pattern Tachypnea Blood Pressure 134/86 H 127/80 H Blood Pressure Mean 102 95 Pulse Ox 97 86 Oxygen Delivery Method Room Air Room Air 07/13/22 10:14 Temperature Temperature Source Pulse Rate 74 Respiratory Rate 20 H Respiratory Effort Respiratory Pattern Blood Pressure 132/77 H Blood Pressure Mean 95 Pulse Ox 97 Oxygen Delivery Method Nasal Cannula Positive well nourished General Appearance ED: NAD; Negative for pallor HEENT Reports dry mucous membranes atraumatic Mouth ED: Yes dry mucous membranes Mouth: dry mucous membranes Eyes PERRL and EOMs intact bilaterally General Eye ED: Negative for pale conjunctiva or scleral icterus Resp normal respiratory effort and clear to auscultation bilaterally Cardio regular rhythm Rhythm: abnormal rhythm irregularly irregular GI normal to inspection, nondistended, normoactive bowel sounds Extremity General Extremety ED: Yes edema General Extremity: edema Neuro oriented x3 and CN's II-XII intact bilaterally Sensorium / Orientation: awake and alert Motor Exam: strength 5/5 throughout Psych mental status grossly normal Skin no rashes or lesions noted General Skin Exam: Negative for jaundice or pallor Heart Score History: Slightly/Non-Suspicious ECG: Normal Age: >/= 65 years Risk Factors: >/= 3 Risk Factors or History of CAD Score: 4 MDM MDM MDM Narrative Medical decision making narrative: Patient presenting with dyspnea on exertion and generalized weakness. He is also had chest pain for a couple of days. He is also had lower extremity edema. Apparently the patient's took him off of his Lasix because he had diarrhea. They were seen by nephrology on Wednesday and he supposed start torsemide today which he did. When he showed up to the emergency room he was dyspneic and his oxygen drops to 86% just sitting in bed. I obtained an EKG which looks like a flutter with variable response. Ventricular rate 86 bpm. CBC shows no leukocytosis. Hemoglobin stable at 9.9. Creatinine at baseline at 1.83. Electrolytes unremarkable. 2 high-sensitivity troponins are both 26 2 hours apart. Chest x-ray my interpretation shows pulmonary vascular congestion with bilateral pleural effusions which are small. Radiologist agree. Patient is hypoxic on room air and will need to come into the hospital for CHF exacerbation. Patient was discussed with the hospitalist. He is admitted in stabilized condition. Impression: 1. CHF exacerbation 2. Chest pain 3. Hypoxia Lab Data Attestation: I reviewed the patient's lab results. Labs: Laboratory Results - last 24 hr 07/13/22 07/13/22 07/13/22 08:40 08:40 11:10 WBC 4.6 RBC 2.89 L Hgb 9.9 L Hct 30.3 L MCV 104.8 H MCH 34.3 H MCHC 32.7 RDW Std Deviation 58.3 H RDW Coeff of Vanesa 15.5 H Plt Count 184 MPV 11.1 Immature Gran % (Auto) 0.200 Neut % (Auto) 64.6 Lymph % (Auto) 19.1 Dickey % (Auto) 9.9 Eos % (Auto) 5.5 H Baso % (Auto) 0.7 Absolute Neuts (auto) 3.0 Absolute Lymphs (auto) 0.87 Nucleated RBC % 0 Sodium 143 Potassium 3.7 Chloride 111 H Carbon Dioxide 24.0 Anion Gap 8 BUN 26 H Creatinine 1.83 H Estim Creat Clear Calc 28.40 Est GFR (MDRD) Af Amer 45 L Est GFR (MDRD) Non-Af 38 L BUN/Creatinine Ratio 14.2 Glucose 115 H Calcium 8.8 Troponin I High Sens 26 26 Radiography Diagnostic Testing: Clinical Impression(s) from Imaging Studies Chest X-Ray 07/13/22 08:55 IMPRESSION: Mild congestive heart failure with small bilateral pleural effusions. Electronically Signed: Myles Carias MD at 10:03 EDT , Discharge Plan Triage Chief Complaint: Chest Pain ED Provider: Manjit Chavez Dx/Rx/DC Orders Prescriptions: No Action mecobalamin (vitamin B12) 1,000 mcg tablet,disintegrating 1,000 mcg SUBLINGUAL DAILY Rx Instructions: place tablet under tongue and allow to dissolve for at least30 secs before swallowing zinc 50 mg tablet 50 mg PO DAILY ascorbate calcium (vitamin C) 500 mg tablet 500 mg PO DAILY coenzyme [id number] E 100 mg-100 unit capsule 100-100 mg-unit capsule 1 cap PO DAILY albuterol sulfate 90 mcg/actuation HFA aerosol inhaler 2 puff INHALATION Q4H PRN (Reason: shortness of breath or wheezing) Qty: 8.5 6RF Rx Instructions: administer with spacer spironolactone 100 mg tablet 25 mg PO LUNCH atorvastatin 40 MG tablet 40 mg PO QHS allopurinol 100 MG tablet 100 mg PO BID pyridoxine (vitamin B6) 100 MG tablet 100 mg PO DAILY apixaban 2.5 MG tablet 2.5 mg PO BID Label Comments: TAKE 1 TABLET BY MOUTH TWICE DAILY carvedilol 25 mg tablet 12.5 mg PO BID Label Comments: TAKE 1 TABLET BY MOUTH TWICE DAILY (MUST ADMINISTER WITH A MEAL/FOOD) Entresto 49-51 mg Tablet 1 tab PO BID sodium bicarbonate 650 mg Tablet 650 mg PO TID Qty: 15 0RF cholecalciferol (vitamin D3) 50 mcg (2,000 unit) tablet 50 mcg PO DAILY Qty: 1 0RF Primary Care Provider: Yris Culver Referrals: Yris Culver MD [Primary Care Provider] -
[2022-07-13 09:23] LABS: Anion Gap 8 (5-15); BUN 26 mg/dL (7-18); BUN/Creat Ratio 14.2 RATIO (10-20); Calcium,Total 8.8 mg/dL (8.5-10.1); Chloride 111 mmol/L (98-107); Creatinine, Serum 1.83 mg/dL (0.70-1.30); EST Glomerular Filtration Rate 38 mL/min (>60); Est Glom Filt Rate - Afr Amer 45 mL/min (>60); Glucose 115 mg/dL (74-106); Potassium 3.7 mmol/L (3.5-5.1); Sodium Level 143 mmol/L (136-145); Troponin-I HS (w/2H Reflex) 26 pg/mL (3.0-78.0)
[2022-07-13 11:02] LABS: Reflex Troponin-HS? (from REC) Y
[2022-07-13 11:44] LABS: Troponin-I HS 26 pg/mL (3.0-78.0)
--- NOTE | 2022-07-13 12:58 | NURSING ---
MED SURG CHF MANDO
--- NOTE | 2022-07-13 13:05 | PCM.HP.STD ---
HPI - General General Date of Admission: 07/13/22 Date of Service: 07/13/22 Chief Complaint: Shortness of breath for few weeks and chest pain HPI Narrative DARCY COVARRUBIAS, is a 86 M with history of chronic heart failure, arrhythmia on pacemaker came to ER for worsening shortness of breath for several weeks and chest pressure/discomfort. Initially he had shortness of breath on mild exertion which worsened to shortness of breath at rest. Patient has increased bilateral leg swelling for several weeks. He also has chest discomfort midsternal localized, without radiation 2/3 in intensity. Initially it was intermittent but now it is constant for last 3 days. Patient happened to see ice maker on last Wednesday and was put on torsemide 10 mg daily with the patient first dose in the morning. Prior to that, patient was admitted in April for COVID-19 with diarrhea. Patient states he still has diarrhea even though he tried Imodium. His said he was also taking psyllium until a week ago. He has not taken antibiotic in the last 6 months. During previous admission stool for C. difficile was negative. Stool for occult blood positive. Patient stool characteristic varies from watery consistency to semisolid but no obvious blood. He said he was found to have colitis but I do not see any imaging test of abdomen. In ED, twelve-lead EKG was done which shows irregular rhythm, atrial flutter 86 bpm, with variable block. QTc 483 ms with PVCs, incomplete RBBB. Nonspecific T wave inversion in V2 through V6 1 and aVL. Isolated troponin negative. Labs reviewed and discussed in assessment plan. [facility] Medical History Acute electrocardiogram changes Anemia Brain bleed Carotid artery disease Chronic kidney disease (CKD) Congestive heart failure COVID-19 Diarrhea Elevated troponin Generalized weakness Hypokalemia Home Medications allopurinol 100 mg tablet 100 mg PO BID Gout 11/24/18 [History Last Taken 05/07/22] atorvastatin 40 mg tablet 40 mg PO QHS Cholesterol 11/24/18 [History Last Taken 05/06/22] pyridoxine (vitamin B6) 100 mg tablet 100 mg PO DAILY supplement 11/24/18 [History Last Taken 05/07/22] apixaban 2.5 mg tablet 2.5 mg PO BID Blood thinner 12/02/20 [History Last Taken 05/07/22] albuterol sulfate 90 mcg/actuation aerosol inhaler 2 puff inhalation Q4H PRN shortness of breath or wheezing #8.5 grams 12/25/20 [Rx Last Taken Unknown] ascorbate calcium (vitamin C) 500 mg tablet 500 mg PO DAILY supplement 12/25/20 [History Last Taken 05/07/22] coenzyme O23-rgrdxld E 100 mg-100 unit capsule 1 cap PO DAILY supplement 12/25/20 [History Last Taken 05/07/22] mecobalamin (vitamin B12) 1,000 mcg disintegrating tablet,sublingual 1,000 mcg sublingual DAILY supplement 12/25/20 [History Last Taken 05/07/22] zinc 50 mg tablet 50 mg PO DAILY supplement 12/25/20 [History Last Taken 05/07/22] cholecalciferol (vitamin D3) 50 mcg (2,000 unit) tablet 50 mcg PO DAILY #1 TAB 03/09/22 [Rx Last Taken 05/07/22] carvedilol 25 mg tablet 12.5 mg PO BID HTN 05/07/22 [History Last Taken 05/07/22] sacubitril 49 mg-valsartan 51 mg tablet (Entresto) 1 tab PO BID heart failure 05/07/22 [History Last Taken 05/07/22] sodium bicarbonate 650 mg tablet 650 mg PO TID #15 tabs 05/13/22 [Rx Last Taken Unknown] torsemide 10 mg tablet 10 mg PO DAILY 07/13/22 [History Last Taken Unknown] Allergy/AdvReac Type Severity Reaction Status Date / Time No Known Allergies Allergy Verified 05/07/22 17:00 Family History Father CAD (coronary artery disease) Surgical History History of brain surgery History of coronary artery bypass graft x 3 History of craniotomy History of permanent cardiac pacemaker placement Social History Smoking Status: Never smoker ROS ROS Narrative Constitutional: Reports fatigue and weakness HEENT: Reports systems reviewed and no addt'l complaints, except as documented Respiratory/Chest: Dyspnea at rest, worse on exertion. Rest as described in HPI Gastrointestinal: Chronic diarrhea. Denies coffee ground emesis, hematemesis or vomiting Genitourinary: Decreased urine output for over a week. Denies burning urination or new urinary tract symptoms Musculoskeletal: Bilateral leg swelling. Reports mild joint pain and limited range of motion Neurologic: Denies seizure-like activity skin: No ulcer. No rash Endocrinology: Reports systems reviewed and no addt'l complaints, except as documented Hematologic/Lymphatic: Reports systems reviewed and no addt'l complaints, except as documented Rest 14 ROS are negative except as mentioned in HPI Vital Signs Vital Signs Vital Signs: 07/13/22 08:24 07/13/22 08:42 07/13/22 08:46 Temperature 96.9 F L Temperature Source Temporal Pulse Rate 86 87 Respiratory Rate 15 27 H Respiratory Effort Short of Breath Respiratory Pattern Tachypnea Blood Pressure 134/86 H 127/80 H Blood Pressure Mean 102 95 Pulse Ox 97 86 Oxygen Delivery Method Room Air Room Air 07/13/22 10:14 07/13/22 12:59 Temperature Temperature Source Pulse Rate 74 74 Respiratory Rate 20 H 20 H Respiratory Effort Respiratory Pattern Blood Pressure 132/77 H 147/86 H Blood Pressure Mean 95 106 Pulse Ox 97 97 Oxygen Delivery Method Nasal Cannula Nasal Cannula Weight Weight: 150 lb Body Mass Index (BMI) 21.5 Physical Exam Narrative Physical exam General: Alert, Oriented x3, Cooperative HEENT: Atraumatic, PERRLA, EOMI, Normocephalic Oral: No Gingival or Mucosal Lesions/ Ulcerations Neck: Supple, No JVD, Negative Carotid Bruits Lungs: Air entry diminished in bilateral lung bases. Fine crepitations in lung bases present. Cardiovascular: Irregular rhythm, Normal S1, Normal S2, systolic murmur LLSB. Status post CABG, left-sided pacemaker Abdomen: Bowel Sounds Present, Soft, Non Tender, Non-Distended : Decreased urine output, no renal angle tenderness. No suprapubic tenderness. Extremities: Bilateral below-knee pitting edema, Capillary Refill Less than 3 Seconds Skin: No rashes, No breakdown Musculoskeletal: No Tenderness to Palpation of Joints or Extremities. Bilateral knee arthritis, ROM restricted Neurological: Cranial nerves II-XII grossly intact, DTR 2+/4. Muscle strength 4+/5 at major joints of LEs Psych/Mental Status: Flat affect Results Lab / Micro Data Result Diagrams: 07/13/22 08:40 07/13/22 08:40 Labs: Laboratory Results - last 24 hr 07/13/22 08:40: WBC 4.6, RBC 2.89 L, Hgb 9.9 L, Hct 30.3 L, MCV 104.8 H, MCH 34.3 H, MCHC 32.7, RDW Std Deviation 58.3 H, RDW Coeff of Vanesa 15.5 H, Plt Count 184, MPV 11.1, Immature Gran % (Auto) 0.200, Neut % (Auto) 64.6, Lymph % (Auto) 19.1, [place] % (Auto) 9.9, Eos % (Auto) 5.5 H, Baso % (Auto) 0.7, Absolute Neuts (auto) 3.0, Absolute Lymphs (auto) 0.87, Nucleated RBC % 0 07/13/22 08:40: Sodium 143, Potassium 3.7, Chloride 111 H, Carbon Dioxide 24.0, Anion Gap 8, BUN 26 H, Creatinine 1.83 H, Estim Creat Clear Calc 28.40, Est GFR (MDRD) Af Amer 45 L, Est GFR (MDRD) Non-Af 38 L, BUN/Creatinine Ratio 14.2, Glucose 115 H, Calcium 8.8, Troponin I High Sens 26 07/13/22 11:10: Troponin I High Sens 26 Radiology Impression Chest X-Ray 07/13/22 08:55 IMPRESSION: Mild congestive heart failure with small bilateral pleural effusions. Electronically Signed: Myles Carias MD at 10:03 EDT , Assessment & Plan Assessment/Plan (1) Acute on chronic HFrEF (heart failure with reduced ejection fraction): PLAN: Plan This 86-year-old gentleman admitted with progressive worsening of shortness of breath with several weeks along with chest discomfort: 1. Acute on chronic HFrEF: Patient is being admitted to PCU on monitor technician. Patient had recent echo, in March 2022, EF 20%, severe global hypokinesis, 1-2+ eccentric MR, RVSP 44 mmHg consistent with HFrEF and mild pulmonary hypertension. Started on Lasix 40 mg IV twice daily. Heart failure core measures including intake and output, fluid restriction less than 1500 mL, daily weight monitoring, kidney and electrolytes monitoring. Patient follows Dr. Harvey and is going to make appointment to see him. Discussed with desktop support engineer. BNP ordered. Chest x-ray individually reviewed and shows pulmonary congestion and bilateral small pleural effusion. Patient on Entresto, the dose decreased to half with holding parameter 2. Atypical chest pain: Chest pain is not of anginal quality and EKG is nonspecific. First troponin negative.Cycle high-sensitivity troponin. 3. 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 Creatinine was 2.11 in April 2022 during his admission. Most recent 1.83. Feather Cutting Machine Feeder consulted. Monitor intake and output. Monitor electrolytes. Patient on bicarb, vitamin D continue. Magnesium replacement ordered. 4. Chronic diarrhea: During previous hospital stay, his C. difficile test was negative. Month patient was also taking the psyllium until a week ago. Enteric bacteriology panel ordered. If diarrhea persist will need GI consult. 5 chronic A. fib/flutter, sick sinus syndrome status post pacemaker,.CAD s/p CABG s/p pacemaker: Heart rate is controlled. Patient on Coreg and high intensity statin continued. On Eliquis 2.5 mg as per his age and creatinine 6. Patient had recent COVID in April 2022, presented with diarrhea probably colitis: Patient is still has diarrhea. Enteric bacterial panel ordered. Will monitor. PT and OT ordered VTE prophylaxis: On Eliquis 2.5 mg twice daily Living will/advanced directive/end of life care: Patient does have living will or advanced directive. His is POA of [facility]. After discussion of benefits/risks procedures involved with full code, DNR CC arrest and DNR CC, the patient and his , POA opted for full code. Patient does want artificial life support including intubation, tube feed, ventilator and/chest compression, central venous catheter, vasopressor and DC shock if needed Total time spent in [id number] encounter in discussion of advanced directive 16 minutes. Laboratory Results 07/13/22 08:40: WBC 4.6, RBC 2.89 L, Hgb 9.9 L, Hct 30.3 L, MCV 104.8 H, MCH 34.3 H, MCHC 32.7, RDW Std Deviation 58.3 H, RDW Coeff of Vanesa 15.5 H, Plt Count 184, MPV 11.1, Immature Gran % (Auto) 0.200, Neut % (Auto) 64.6, Lymph % (Auto) 19.1, [place] % (Auto) 9.9, Eos % (Auto) 5.5 H, Baso % (Auto) 0.7, Absolute Neuts (auto) 3.0, Absolute Lymphs (auto) 0.87, Nucleated RBC % 0 07/13/22 08:40: Sodium 143, Potassium 3.7, Chloride 111 H, Carbon Dioxide 24.0, Anion Gap 8, BUN 26 H, Creatinine 1.83 H, Estim Creat Clear Calc 28.40, Est GFR (MDRD) Af Amer 45 L, Est GFR (MDRD) Non-Af 38 L, BUN/Creatinine Ratio 14.2, Glucose 115 H, Calcium 8.8, Troponin I High Sens 07/13/22 08:40: B-Natriuretic Peptide Pending 07/13/22 11:10: Troponin I High Sens 07/13/22 11:10: Magnesium 1.4 L Charges/Coding Visit Charges Inpatient E&M: 70522 Init Hosp L3 Procedures Hospitalists Procedures: 79882 Advncd Care Plan 30 Min
[2022-07-13 13:31] LABS: Magnesium 1.4 mg/dL (1.6-2.6)
[2022-07-13] MEDS: Furosemide 40 MG/4 ML Vial IV (14:23)
[2022-07-13] MEDS: Carvedilol 12.5 MG Tablet PO (14:23)
[2022-07-13] MEDS: 0.9% Saline Lock 10 ML Syringe IV ×2 (14:23→21:37)
[2022-07-13 14:26] LABS: Troponin-I HS 26 pg/mL (3.0-78.0)
[2022-07-13] MEDS: Sodium Bicarbonate 650 MG Tablet PO ×2 (14:56→21:36)
[2022-07-13 14:59] LABS: BNP,B-Type NATRIURETIC PEPTIDE > 5000.0 pg/mL (0-100)
[2022-07-13] MEDS: Allopurinol 100 MG Tablet PO ×2 (15:01→17:38)
--- NOTE | 2022-07-13 16:32 | PCM.CONS.R ---
Assessment & Plan Assessment/Plan (1) Acute on chronic HFrEF (heart failure with reduced ejection fraction): (2) Acute kidney injury: (3) Chronic kidney disease (CKD): PLAN: Plan Patient was admitted to the hospital after presenting to emergency room with complaints of shortness of breath. Admitted for acute on chronic decompensated heart failure. Last known EF 20% March 2022. Chest x-ray showed mild congestion, small bilateral pleural effusions. BNP elevated greater than 5000. We were consulted for acute kidney injury. Patient is now following with a metal milling machine operator and was seen this past Wednesday. Baseline creatinine as of April 2022 has been ranging around 1 to 1.3 mg/dL. Patient had developed nonoliguric, mildly hypovolemic acute kidney injury in April 2022 after admitted to the hospital with COVID-19 infection. His creatinine was 1.98 mg/dL on admission, peaked to 2.14 mg/dL and by time of discharge improved to 1.62 mg/dL. Patient does not have any lab work until today, His creatinine is 1.83 mg/dL. At this time baseline Creatinine unknown as patient may have MARCOS on CKD versus baseline CKD. Will follow creatinine trends. MARCOS possibly from cardiorenal syndrome physiology. Patient does appear to be mildly hypervolemic and was started on furosemide 40 mg IV twice daily. Discussed with Dr. Renteria, will decrease Lasix to daily. Continue on Entresto decreased dose as ordered. Patient may have some third spacing of fluids, his albumin was 2.9 back in April 2022 (patient reports poor appetite, chronic diarrhea). Will obtain albumin tomorrow. At this time there is no acute indication for TREATMENT PLANT MECHANIC. We will repeat renal ultrasound (patient had a renal ultrasound in April 2022 which showed mild bilateral hydronephrosis, cortical thinning with increased renal cortical echogenicity suggestive of medical renal disease); we will order urinalysis. Magnesium was low, 1.4, replacement ordered. Blood pressures acceptable on furosemide, Entresto, carvedilol. Bicarb is normal, 24, he is on oral sodium bicarbonate tablets tid. We will decrease sodium bicarbonate to twice daily and follow bicarbonate trends. Stool cx pending. Thank you for allowing us participate in the care of Mr. Covarrubias. We will continue to follow patient along with you. HPI Consult Data Date of Consult: 07/13/22 HPI Narrative HPI Narrative: DARCY COVARRUBIAS, is a 86 M with past medical history significant for coronary disease status post coronary artery bypass graft surgery x3 in 2015, permanent pacemaker placement 2015, hypertension, A. fib/a flutter, chronic systolic heart failure with last known EF 20% (March 2022) who presented to the emergency room today with complaints of shortness of breath, chest pressure and discomfort. Work-up in the emergency room included EKG which showed atrial flutter, BNP greater than 5000, chest x-ray showing small bilateral pleural effusions, patient admitted for decompensated heart failure. We were consulted for MARCOS. Patient is known to our group from previous evaluation in the hospital when he was admitted to hospital in April 2022 for COVID-19. In April 2022 patient developed nonoliguric, mildly hypovolemic acute kidney injury likely from infection, volume depletion with poor oral intake, daily diarrhea. His creatinine was 1.9 mg/dL on admission and peaked to 2.14 mg/dL. By the time patient was discharged from the hospital renal function was improving. Patient did not require any hemodialysis. Possible baseline creatinine up until April 2022 was ranging around 1 to 1.3 mg/dL. Patient reports since his hospitalization in April he has had poor oral intake. Also states still having daily loose stools. Denies any recent antibiotics. Patient and his both report that patient established with a metal milling machine operator from [facility] in [place], first seen this past Wednesday. He was started on torsemide and continued on spironolactone. Patient states he started torsemide today. Denies any NSAIDs. Denies any recent nausea or vomiting. Denies NSAID use. Denies any urinary habitus changes including hematuria, increased or decreased urine output. Patient does report that over the last week or so he is also developed lower extremity swelling. ON LICENSE OF [facility] Medical History (Updated 07/13/22 @ 16:42 by STEVE Perkins) Acute electrocardiogram changes Anemia Brain bleed Carotid artery disease Chronic kidney disease (CKD) Congestive heart failure COVID-19 Diarrhea Elevated troponin Generalized weakness Hypokalemia Home Medications allopurinol 100 mg tablet 100 mg PO BID Gout 11/24/18 [History Last Taken 05/07/22] atorvastatin 40 mg tablet 40 mg PO QHS Cholesterol 11/24/18 [History Last Taken 05/06/22] pyridoxine (vitamin B6) 100 mg tablet 100 mg PO DAILY supplement 11/24/18 [History Last Taken 05/07/22] apixaban 2.5 mg tablet 2.5 mg PO BID Blood thinner 12/02/20 [History Last Taken 05/07/22] albuterol sulfate 90 mcg/actuation aerosol inhaler 2 puff inhalation Q4H PRN shortness of breath or wheezing #8.5 grams 12/25/20 [Rx Last Taken Unknown] ascorbate calcium (vitamin C) 500 mg tablet 500 mg PO DAILY supplement 12/25/20 [History Last Taken 05/07/22] coenzyme K67-fulsbar E 100 mg-100 unit capsule 1 cap PO DAILY supplement 12/25/20 [History Last Taken 05/07/22] mecobalamin (vitamin B12) 1,000 mcg disintegrating tablet,sublingual 1,000 mcg sublingual DAILY supplement 12/25/20 [History Last Taken 05/07/22] zinc 50 mg tablet 50 mg PO DAILY supplement 12/25/20 [History Last Taken 05/07/22] cholecalciferol (vitamin D3) 50 mcg (2,000 unit) tablet 50 mcg PO DAILY #1 TAB 03/09/22 [Rx Last Taken 05/07/22] carvedilol 25 mg tablet 12.5 mg PO BID HTN 05/07/22 [History Last Taken 05/07/22] sacubitril 49 mg-valsartan 51 mg tablet (Entresto) 1 tab PO BID heart failure 05/07/22 [History Last Taken 05/07/22] sodium bicarbonate 650 mg tablet 650 mg PO TID #15 tabs 05/13/22 [Rx Last Taken Unknown] torsemide 10 mg tablet 10 mg PO DAILY diuretic 07/13/22 [History Last Taken 07/13/22 08:00] Allergy/AdvReac Type Severity Reaction Status Date / Time No Known Allergies Allergy Verified 05/07/22 17:00 Family History Father CAD (coronary artery disease) Surgical History History of brain surgery History of coronary artery bypass graft x 3 History of craniotomy History of permanent cardiac pacemaker placement Social History Smoking Status: Never smoker Physical Exam Narrative Alert and oriented x3, no apparent distress S1, S2, rhythm irregular, rate controlled Lung sounds clear anteriorly, faint rales posterior bases Abdomen is soft, nontender, positive bowel sounds x4 quadrants 1-2+ pitting edema bilateral lower legs Lab / Micro Data Result Diagrams: 07/13/22 08:40 07/13/22 08:40 Labs: Laboratory Results - last 24 hr 07/13/22 08:40: WBC 4.6, RBC 2.89 L, Hgb 9.9 L, Hct 30.3 L, MCV 104.8 H, MCH 34.3 H, MCHC 32.7, RDW Std Deviation 58.3 H, RDW Coeff of Vanesa 15.5 H, Plt Count 184, MPV 11.1, Immature Gran % (Auto) 0.200, Neut % (Auto) 64.6, Lymph % (Auto) 19.1, [place]ley % (Auto) 9.9, Eos % (Auto) 5.5 H, Baso % (Auto) 0.7, Absolute Neuts (auto) 3.0, Absolute Lymphs (auto) 0.87, Nucleated RBC % 0 07/13/22 08:40: Sodium 143, Potassium 3.7, Chloride 111 H, Carbon Dioxide 24.0, Anion Gap 8, BUN 26 H, Creatinine 1.83 H, Estim Creat Clear Calc 28.40, Est GFR (MDRD) Af Amer 45 L, Est GFR (MDRD) Non-Af 38 L, BUN/Creatinine Ratio 14.2, Glucose 115 H, Calcium 8.8, Troponin I High Sens 26 07/13/22 08:40: B-Natriuretic Peptide > 5000.0 H 07/13/22 11:10: Troponin I High Sens 26 07/13/22 11:10: Magnesium 1.4 L 07/13/22 14:00: Troponin I High Sens 26 Radiology Impression Chest X-Ray 07/13/22 08:55 IMPRESSION: Mild congestive heart failure with small bilateral pleural effusions. Electronically Signed: Myles Carias MD at 10:03 EDT ,
--- NOTE | 2022-07-13 17:09 | US_ITS ---
STUDY: RENAL ULTRASOUND - COMPLETE REASON FOR EXAM: Male, 86 years old. Acute kidney injury. TECHNIQUE: Ultrasound evaluation of the kidneys was performed with real-time and static tracey-scale imaging. COMPARISON: 05/09/2022. FINDINGS: RIGHT KIDNEY: Normal location of the right kidney, which is normal in size. The right kidney measures 9.8 cm. There is a normal cortex of the right kidney. The renal cortex measures 1.2 cm. There is no right renal mass or cyst. There are no right renal calculi. There is mild hydronephrosis of the right kidney. DISTAL RIGHT URETER: There is non-visualization of the distal right ureter. There is no demonstrated right ureterovesical junction calculus. There is no demonstrated right ureteral jet. LEFT KIDNEY: Normal location of the left kidney, which is normal in size. The left kidney measures 11.4 cm. There is a normal cortex of the left kidney. The renal cortex measures 1.4 cm. 2.7 x 2.6 x 2.4 cm cyst lower pole. There are no left renal calculi. There is mild hydronephrosis of the left kidney. DISTAL LEFT URETER: There is non-visualization of the distal left ureter. There is no demonstrated left ureterovesical junction calculus. There is no demonstrated left ureteral jet. BLADDER: The distended urinary bladder has a volume of 224 ml. There is a normal wall thickness of the distended urinary bladder. There is no demonstrated mass within the urinary bladder. There are no demonstrated bladder calculi. US/Kidney and Bladder IMPRESSION: 1. Mild bilateral hydronephrosis unchanged from prior study. 2. Stable left renal cyst. 3. The increased cortical echogenicity described on the previous study is not appreciated on the current exam. 4. Normal urinary bladder. Electronically Signed: Jacob Templeton DO at 22:15 EDT ,
--- NOTE | 2022-07-13 19:28 | PCM.CONS.C ---
Assessment & Plan Assessment/Plan (1) Acute on chronic HFrEF (heart failure with reduced ejection fraction): PLAN: He does have evidence of heart failure with reduced left ventricular ejection fraction. He is on guideline directed medical therapy. Due to his exacerbation I would suggest that we put him on intravenous Lasix and see how he does. The exact precipitating factor of his current heart failure is not clear to me. He will continue his beta-sury and Entresto as prescribed. (2) Ischemic cardiomyopathy: PLAN: He does have a history of ischemic cardiomyopathy. He is status post coronary bypass surgery. At this time the plan is to continue with aggressive guideline directed medical therapy. (3) History of permanent cardiac pacemaker placement: PLAN: He does have a history of permanent pacemaker implantation. I would recommend that he continue to follow-up in our pacemaker clinic. (4) Paroxysmal atrial fibrillation: PLAN: He has evidence of paroxysmal atrial fibrillation. It appears this is now permanent. He is anticoagulated with Eliquis. He will continue with rate control. 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 Stress test did not demonstrate any evidence of ischemia and the plan is to continue his current medical therapy. Thank you for allowing me to participate in the care of your patient. Please don't hesitate to call if any issues arise. HPI Consult Data Date of Consult: 07/13/22 HPI Narrative HPI Narrative: DARCY COVARRUBIAS, is a 86 M who presents to the emergency room with generalized weakness and shortness of breath.? He has a history of coronary artery disease status post coronary bypass surgery x3 in May 2015.? This was after an abnormal stress test in the setting of exertional anginal symptoms.? His heart catheterization prior to the bypass surgery demonstrated moderate left main coronary artery stenosis, 50% distal left main stenosis 99% proximal LAD stenosis, 60% in the first diagonal and 80% in the mid right coronary artery.? His ejection fraction was preserved at 60%.? He underwent a left internal mammary artery to the left anterior descending artery, saphenous vein graft to the marginal branch and the posterior descending artery.? Intraoperatively he did require temporary pacemaking for junctional rhythm.? Postoperatively he developed symptomatic bradycardia and needed a dual-chamber Medtronic permanent pacemaker which was placed in May 2015.? He also has a history of paroxysmal atrial fibrillation, mitral regurgitation, hypertension, hyperlipidemia, chronic kidney disease and bilateral subdural hematoma after a fall in November 2018 while on Coumadin.? He had evacuation of his subdural hematoma in November 2018.? He was seen in the office in prior to that his most recent echocardiogram was in 2019 which demonstrated an ejection fraction of 50%. A repeat echocardiogram was performed after the visit to the office as well as a pacemaker interrogation. He was noted to have significantly reduced left ventricular ejection fraction with a global estimated ejection fraction of 20%. He was started on guideline directed medical therapy which was being titrated upwards. He also does have evidence of worsening renal dysfunction. [facility] Medical History Acute electrocardiogram changes Anemia Brain bleed Carotid artery disease Chronic kidney disease (CKD) Congestive heart failure COVID-19 Diarrhea Elevated troponin Generalized weakness Hypokalemia Home Medications allopurinol 100 mg tablet 100 mg PO BID Gout 11/24/18 [History Last Taken 05/07/22] atorvastatin 40 mg tablet 40 mg PO QHS Cholesterol 11/24/18 [History Last Taken 05/06/22] pyridoxine (vitamin B6) 100 mg tablet 100 mg PO DAILY supplement 11/24/18 [History Last Taken 05/07/22] apixaban 2.5 mg tablet 2.5 mg PO BID Blood thinner 12/02/20 [History Last Taken 05/07/22] albuterol sulfate 90 mcg/actuation aerosol inhaler 2 puff inhalation Q4H PRN shortness of breath or wheezing #8.5 grams 12/25/20 [Rx Last Taken Unknown] ascorbate calcium (vitamin C) 500 mg tablet 500 mg PO DAILY supplement 12/25/20 [History Last Taken 05/07/22] coenzyme Q26-dltcfrw E 100 mg-100 unit capsule 1 cap PO DAILY supplement 12/25/20 [History Last Taken 05/07/22] mecobalamin (vitamin B12) 1,000 mcg disintegrating tablet,sublingual 1,000 mcg sublingual DAILY supplement 12/25/20 [History Last Taken 05/07/22] zinc 50 mg tablet 50 mg PO DAILY supplement 12/25/20 [History Last Taken 05/07/22] cholecalciferol (vitamin D3) 50 mcg (2,000 unit) tablet 50 mcg PO DAILY #1 TAB 03/09/22 [Rx Last Taken 05/07/22] carvedilol 25 mg tablet 12.5 mg PO BID HTN 05/07/22 [History Last Taken 05/07/22] sacubitril 49 mg-valsartan 51 mg tablet (Entresto) 1 tab PO BID heart failure 05/07/22 [History Last Taken 05/07/22] sodium bicarbonate 650 mg tablet 650 mg PO TID #15 tabs 05/13/22 [Rx Last Taken Unknown] torsemide 10 mg tablet 10 mg PO DAILY diuretic 07/13/22 [History Last Taken 07/13/22 08:00] Allergy/AdvReac Type Severity Reaction Status Date / Time No Known Allergies Allergy Verified 05/07/22 17:00 Family History Father CAD (coronary artery disease) Surgical History History of brain surgery History of coronary artery bypass graft x 3 History of craniotomy History of permanent cardiac pacemaker placement Social History Smoking Status: Never smoker ROS Constitutional Constitutional: Denies fever(s) or weight loss Eyes Eyes: Reports systems reviewed and no addt'l complaints, except as documented ENT HEENT: Reports systems reviewed and no addt'l complaints, except as documented Cardiovascular Cardiovascular: Reports dyspnea at rest and dyspnea on exertion; Denies chest pain at rest, chest pain with activity, edema, palpitations or paroxysmal nocturnal dyspnea Respiratory/Chest Respiratory/Chest: Reports dyspnea and dyspnea on exertion; Denies productive cough, shortness of breath at rest or shortness of breath with exertion Gastrointestinal Gastrointestinal: Denies change in bowel habits, nausea, vomiting or weight changes Genitourinary Genitourinary: Denies difficulty urinating Musculoskeletal Musculoskeletal: Denies joint stiffness or muscle weakness Integumentary Integumentary: Denies lesions Neurologic Neurologic: Denies dizziness or syncope Psychiatric Psychiatric: Denies anxiety Endocrine Endocrinology: Denies excessive sweating or fatigue Hematologic/Lymphatic Hematologic/Lymphatic: Denies anemia Allergic/Immunologic Allergic/Immunologic: Denies seasonal rhinorrhea Physical Exam Const alert, oriented x3 and no apparent distress General Appearance: cooperative HEENT hearing grossly normal bilaterally Head and Scalp: atraumatic Eyes EOMs intact bilaterally Neck General: normal visual inspection Chest inspection of chest normal and palpation of chest normal Resp normal respiratory effort Auscultation: clear to auscultation bilaterally Cardio regular rate, regular rhythm, S1 normal heart sound and S2 normal heart sound Jugular Venous Distention: JVD GI normal to inspection, nondistended, normoactive bowel sounds Extremity normal capillary refill and no pedal edema Peripheral Pulses: Yes pulses 2+ throughout and femoral pulses present Skin no rashes or lesions noted Neuro oriented x3 and CN's II-XII intact bilaterally Psych Appearance: grossly normal and appropriate Risk Stratification Risk Stratification Applicable: No Objective Data Vital Signs: Vital Signs Temp Pulse Resp BP Pulse Ox O2 Del Method O2 Flow Rate 97.8 F 104 H 20 H 145/94 H 100 Nasal Cannula 2 07/13/22 14:33 07/13/22 14:50 07/13/22 14:33 07/13/22 14:33 07/13/22 14:33 07/13/22 14:33 07/13/22 14:33 Oxygen Flow Rate (L/min) 2 Oxygen Delivery Method Nasal Cannula Weight: 156 lb 1.396 oz Body Mass Index (BMI) 22.4 Intake & Output: Intake and Output for Last 24 Hours 07/11/22 07/12/22 07/13/22 23:59 23:59 23:59 Intake Total 555 / 555 Balance 555 / 555 Lab / Micro Data Result Diagrams: 07/13/22 08:40 07/13/22 08:40 Labs: Laboratory Results - last 24 hr 07/13/22 08:40: WBC 4.6, RBC 2.89 L, Hgb 9.9 L, Hct 30.3 L, MCV 104.8 H, MCH 34.3 H, MCHC 32.7, RDW Std Deviation 58.3 H, RDW Coeff of Vanesa 15.5 H, Plt Count 184, MPV 11.1, Immature Gran % (Auto) 0.200, Neut % (Auto) 64.6, Lymph % (Auto) 19.1, O[place]e % (Auto) 9.9, Eos % (Auto) 5.5 H, Baso % (Auto) 0.7, Absolute Neuts (auto) 3.0, Absolute Lymphs (auto) 0.87, Nucleated RBC % 0 07/13/22 08:40: Sodium 143, Potassium 3.7, Chloride 111 H, Carbon Dioxide 24.0, Anion Gap 8, BUN 26 H, Creatinine 1.83 H, Estim Creat Clear Calc 28.40, Est GFR (MDRD) Af Amer 45 L, Est GFR (MDRD) Non-Af 38 L, BUN/Creatinine Ratio 14.2, Glucose 115 H, Calcium 8.8, Troponin I High Sens 26 07/13/22 08:40: B-Natriuretic Peptide > 5000.0 H 07/13/22 11:10: Troponin I High Sens 07/13/22 11:10: Magnesium 1.4 L 07/13/22 14:00: Troponin I High Sens 26 Cardiology Labs/Tests 07/13/22 08:40: WBC 4.6, RBC 2.89 L, Hgb 9.9 L, Hct 30.3 L, MCV 104.8 H, MCH 34.3 H, MCHC 32.7, Plt Count 184, MPV 11.1, Immature Gran % (Auto) 0.200, Neut % (Auto) 64.6, Lymph % (Auto) 19.1, O[place]e % (Auto) 9.9, Eos % (Auto) 5.5 H, Baso % (Auto) 0.7, Absolute Neuts (auto) 3.0, Nucleated RBC % 0 07/13/22 08:40: Sodium 143, Potassium 3.7, Chloride 111 H, Carbon Dioxide 24.0, Anion Gap 8, BUN 26 H, Creatinine 1.83 H, Est GFR (MDRD) Af Amer 45 L, Est GFR (MDRD) Non-Af 38 L, BUN/Creatinine Ratio 14.2, Glucose 115 H, Calcium 8.8 07/13/22 08:40: B-Natriuretic Peptide > 5000.0 H 07/13/22 11:10: Magnesium 1.4 L Rhythm: EKG: ECHO: Stress Test: Cardiac Cath: PCI: CT Surgery: Holter monitor: EPS: PPM: CXR: Chest CT Scan: Radiography Diagnostic Testing: Radiology Impression Chest X-Ray 07/13/22 08:55 IMPRESSION: Mild congestive heart failure with small bilateral pleural effusions. Electronically Signed: Myles Carias MD at 10:03 EDT ,
[2022-07-13 20:39] LABS: Bacteria 0 SEEN /hpf (None Seen); Mucous, Urine 0 SEEN /hpf (<or=2+); Red Blood Cells-Urine 0 SEEN /hpf (0-5); Squamous Epithelial Cells - UA 0 SEEN /hpf (0-5); White Blood Cells 0 SEEN /hpf (0-5)
[2022-07-13 21:08] LABS: Color, Urine Straw (Yellow); Glucose, Dipstick Normal (Normal); Ketone-Dipstick Negative (Negative); Leukocyte Esterase-Dipstick Negative /ul (Negative); Nitrite-Dipstick Negative (Negative); Occult Blood-Urine Negative /ul (Negative); Protein-Dipstick Negative (Negative); Urine Bilirubin Dipstick Negative (Negative); Urine Clarity Clear (Clear); Urine Urobilinogen Normal (Normal)
[2022-07-13] MEDS: APIXABAN 2.5 MG TABLET PO (21:36)
[2022-07-13] MEDS: Atorvastatin Calcium 40 MG Tablet PO (21:36)
[2022-07-13] MEDS: SACUBITRIL/VALSARTAN 49-51 MG TABLET 0.5 EACH PO (21:37)
[2022-07-14] VITALS (13 sets, daily range): BP systolic 121–140; BP diastolic 60–95; PULSE 67–99; RESP 16–18; TEMP 36.3–36.6; O2SAT 95–97
[2022-07-14] MEDS: 0.9% Saline Lock 10 ML Syringe IV ×2 (03:49→10:00)
[2022-07-14 06:25] LABS: Absolute Lymphocyte Count 0.75 X10^3/uL (0.83-4.51); Absolute Neutrophil Count 2.7 X10^3/uL (2.0-7.7); Basophil# 0.04 X10^3/uL; Eosinophil# 0.22 X10^3/uL; Eosinophils% 5.3 % (0-5); Hematocrit 27.5 % (40-54); Hemoglobin 9.1 g/dL (13.0-16.5); Lymphocyte # 0.75 X10^3/ul (0.83-4.51); Lymphocyte % 18.1 % (19-41); Mean Corp Hgb Conc 33.1 g/dL (32-36); Mean Corpuscular Volume 105.8 fL (80-94); Mean Platelet Vol. 11.3 fl (6.2-12.0); Monocyte# 0.39 X10^3/uL; Monocyte% 9.4 % (0-10); NRBC Flagged by Analyzer 0 % (0-5); Neutrophil # 2.73 X10^3/uL (2.7-7.7); Platelet Count 136 K/mm3 (150-450); RBC Distribution Width CV 15.5 % (11.6-14.6); RBC Distribution Width SD 59.1 fl (35.1-43.9); White Blood Count 4.1 K/mm3 (4.4-11.0)
[2022-07-14 06:54] LABS: Albumin, Serum 3.4 g/dL (3.2-5.0)
[2022-07-14 07:04] LABS: Anion Gap 8 (5-15); BUN 31 mg/dL (7-18); Calcium,Total 8.8 mg/dL (8.5-10.1); Chloride 109 mmol/L (98-107); Cholesterol 76 mg/dL (200); Creatinine, Serum 2.06 mg/dL (0.70-1.30); EST Glomerular Filtration Rate 33 mL/min (>60); Est Glom Filt Rate - Afr Amer 40 mL/min (>60); Estimated Creatinine Clearance 25.81 ml/min; Glucose 124 mg/dL (74-106); High Density Lipoprotein 26 mg/dL; Potassium 3.5 mmol/L (3.5-5.1); Sodium Level 142 mmol/L (136-145); Thyroid Stim Hormone (TSH) 3.05 uIU/mL (0.358-3.74); Triglycerides 79 mg/dL; Very Low Density Lipoprotein 16 mg/dL (5-40)
[2022-07-14] MEDS: Furosemide 40 MG/4 ML Vial IV (09:38)
[2022-07-14] MEDS: Cholecalciferol (VIT D3) 25 MCG TABLET (1,000 UNITS) 100 MCG PO (09:38)
[2022-07-14] MEDS: SACUBITRIL/VALSARTAN 49-51 MG TABLET 0.5 EACH PO ×2 (09:39→21:38)
[2022-07-14] MEDS: APIXABAN 2.5 MG TABLET PO ×2 (09:39→21:39)
[2022-07-14] MEDS: Ascorbic Acid 500 MG Tablet PO (09:39)
[2022-07-14] MEDS: Carvedilol 12.5 MG Tablet PO ×2 (09:39→17:40)
[2022-07-14] MEDS: Sodium Bicarbonate 650 MG Tablet PO (09:39)
[2022-07-14] MEDS: Pyridoxine HCl 100 MG Tablet PO (09:39)
--- NOTE | 2022-07-14 10:05 | CASEMGMT ---
ANA CRISTINA MURPHY Face to Face with patient for initial transition planning/care coordination assessment. RN CM introduced self and role at [facility]. Patient lying in bed, alert and oriented. Patient willing to participate in assessment and is able to answer all questions appropriately. Care providers, pharmacy, and demographics verified. Patient wishes to discharge home, denies need for home health at this time, will monitor progress with therapy. Patient states he has no further needs or concerns at this time. CM to follow for discharge planning needs that may arise. PCP: Palomo Specialists: Wes analytical chemist Preferred Pharmacy: [facility] Insurance: [facility], [facility] Prescription Benefit: none Living Will/HPOA: yes, Deirdre Brown LNOK: Living Arrangements: Patient lives with in a single story home with one step and railing to enter the home. Patient states he is independent at home Transportation: self, DME/HHC: Patient states he has built in shower chair, raised toilet, cane, walker, and grab bars. Patient denies previous HHC or SNF. Disposition Plan: Patient to discharge home with family support and follow-up plans in place. Will monitor progress with therapy. Teri ROBLERO, RN, CM
--- NOTE | 2022-07-14 11:02 | PN.RENAL_ITS ---
Subjective Subjective Following for MARCOS on CKD Patient is sitting at side of bed. Denies any complaints. No overnight events. Reports breathing is better today. Feels swelling to legs has improved. Objective Data Objective Data Vital Signs: Vital Signs Temp Pulse Resp BP Pulse Ox O2 Del Method O2 Flow Rate 97.3 F L 88 18 133/77 H 95 Room Air 2 07/14/22 09:55 07/14/22 09:55 07/14/22 09:55 07/14/22 09:55 07/14/22 09:55 07/14/22 09:56 07/14/22 09:55 Oxygen Flow Rate (L/min) 2 Oxygen Delivery Method Room Air Weight: 69.6 kg Body Mass Index (BMI) 22.4 Intake & Output: Intake and Output for Last 24 Hours 07/12/22 07/13/22 07/14/22 23:59 23:59 23:59 Intake Total 601.5 / 601.5 Output Total 700 / 700 500 / 500 Balance -98.5 / -98.5 -500 / -500 Lab / Micro Data Result Diagrams: 07/14/22 05:28 07/14/22 05:28 Labs: Laboratory Results - last 24 hr 07/13/22 08:40: B-Natriuretic Peptide > 5000.0 H 07/13/22 11:10: Troponin I High Sens 26 07/13/22 11:10: Magnesium 1.4 L 07/13/22 14:00: Troponin I High Sens 07/13/22 20:22: Urine Color Straw, Urine Clarity Clear, Urine pH 6.0, Ur Specific [place] 1.010, Urine Protein Negative, Urine Glucose (UA) Normal, Urine Ketones Negative, Urine Occult Blood Negative, Urine Nitrite Negative, Urine Bilirubin Negative, Urine Urobilinogen Normal, Ur Leukocyte Esterase Negative, Urine RBC 0 SEEN, Urine WBC 0 SEEN, Ur Squamous Epith Cells 0 SEEN, Urine Bacteria 0 SEEN, Urine Mucus 0 SEEN 07/14/22 05:28: WBC 4.1 L, RBC 2.60 L, Hgb 9.1 L, Hct 27.5 L, MCV 105.8 H, MCH 35.0 H, MCHC 33.1, RDW Std Deviation 59.1 H, RDW Coeff of Vanesa 15.5 H, Plt Count 136 L, MPV 11.3, Immature Gran % (Auto) 0.200, Neut % (Auto) 66.0, Lymph % (Auto) 18.1 L, Cavalier % (Auto) 9.4, Eos % (Auto) 5.3 H, Baso % (Auto) 1.0, Absolute Neuts (auto) 2.7, Absolute Lymphs (auto) 0.75 L, Nucleated RBC % 0 07/14/22 05:28: Sodium 142, Potassium 3.5, Chloride 109 H, Carbon Dioxide 25.0, Anion Gap 8, BUN 31 H, Creatinine 2.06 H, Estim Creat Clear Calc 25.81, Est GFR (MDRD) Af Amer 40 L, Est GFR (MDRD) Non-Af 33 L, BUN/Creatinine Ratio 15.0, Glucose 124 H, Calcium 8.8, Triglycerides 79, Cholesterol 76, LDL Cholesterol 34, VLDL Cholesterol 16, HDL Cholesterol 26 L, TSH 3.05 07/14/22 05:28: Albumin 3.4 Micro: Microbiology 07/13/22 15:43 Stool Enteric Bacteriology - Final Radiography Diagnostic Testing: Radiology Impression Renal Ultrasound 07/13/22 17:09 IMPRESSION: 1. Mild bilateral hydronephrosis unchanged from prior study. 2. Stable left renal cyst. 3. The increased cortical echogenicity described on the previous study is not appreciated on the current exam. 4. Normal urinary bladder. Electronically Signed: Jacob Templeton DO at 22:15 EDT Reading Location ID and State: [address] [place] [address] Tel [phone], Service support , Physical Exam Narrative Alert and oriented x3, no apparent distress S1, S2, rhythm irregular, rate controlled Lung sounds clear anteriorly and posteriorly, no wheezes rhonchi rales noted Abdomen is soft, nontender, positive bowel sounds x4 quadrants 1+ pitting edema bilateral lower legs Assessment & Plan Assessment/Plan (1) Acute on chronic HFrEF (heart failure with reduced ejection fraction): (2) Acute kidney injury: (3) Chronic kidney disease (CKD): PLAN: Plan - Nonoliguric, mildly hypervolemic MARCOS possibly from cardiorenal syndrome physiology and not surprising to see fluctuations in serum creatinine. Creatinine 1.83 mg/dL on admission, today creatinine is 2.06 mg/dL. He is on lasix 40mg IV daily. Received IV dose today. Will start on oral lasix tomorrow 40mg. Weight is down 1kg from yesterday. 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 -CKD stage 3: Baseline creatinine as of April 2022 had been ranging around 1.3 mg/dL. He may have some progression of CKD and possible new baseline SCr ~1.6- 1.9mg/dL. Will follow trends. Patient had a renal ultrasound in April 2022 which showed mild bilateral hydronephrosis, cortical thinning with increased renal cortical echogenicity suggestive of medical renal disease. Repeat Renal US again showing mild b/l hydronephrosis. Patient to be started on flomax - bps acceptable on coreg, lasix and entresto -Acute on chronic decompensated heart failure. Last known EF 20% March 2022. Cardiology following. Admission Chest x-ray showed mild congestion, small bilateral pleural effusions. BNP >5000. Initially started on lasix 40mg IV bid, dose decreased to daily yesterday. Overall improving. Weight down, edema impr mckenzie. Was on O2 NC @2L, now on room air. -chronic diarrhea; per patient report improving. Will stop bicarb and monitor bicarb levels. Bicarb 25 today. Stool for enteric pathogen panel negative. - discussed with Dr. Renteria
[2022-07-14] MEDS: Allopurinol 100 MG Tablet PO ×2 (11:13→17:40)
--- NOTE | 2022-07-14 15:15 | PN.HOSP_ITS ---
Subjective Subjective Follow-up for heart failure exacerbation Patient does not have chest pain. Shortness of breath is improved. collision technician shows paced rhythm. Objective Data Objective Data Vital Signs: Vital Signs Temp Pulse Resp BP Pulse Ox O2 Del Method O2 Flow Rate 97.7 F L 99 18 128/88 H 97 Nasal Cannula 2 07/14/22 03:32 07/14/22 07:28 07/14/22 03:32 07/14/22 03:32 07/14/22 07:12 07/14/22 07:12 07/14/22 07:12 Oxygen Flow Rate (L/min) 2 Oxygen Delivery Method Nasal Cannula Weight: 153 lb 7.068 oz Body Mass Index (BMI) 22.4 Intake & Output: Intake and Output for Last 24 Hours 07/12/22 07/13/22 07/14/22 23:59 23:59 23:59 Intake Total 601.5 / 601.5 Output Total 700 / 700 500 / 500 Balance -98.5 / -98.5 -500 / -500 Lab / Micro Data Result Diagrams: 07/14/22 05:28 07/14/22 05:28 Labs: Laboratory Results - last 24 hr 07/13/22 08:40: WBC 4.6, RBC 2.89 L, Hgb 9.9 L, Hct 30.3 L, MCV 104.8 H, MCH 34.3 H, MCHC 32.7, RDW Std Deviation 58.3 H, RDW Coeff of Vanesa 15.5 H, Plt Count 184, MPV 11.1, Immature Gran % (Auto) 0.200, Neut % (Auto) 64.6, Lymph % (Auto) 19.1, Darke % (Auto) 9.9, Eos % (Auto) 5.5 H, Baso % (Auto) 0.7, Absolute Neuts (auto) 3.0, Absolute Lymphs (auto) 0.87, Nucleated RBC % 0 07/13/22 08:40: Sodium 143, Potassium 3.7, Chloride 111 H, Carbon Dioxide 24.0, Anion Gap 8, BUN 26 H, Creatinine 1.83 H, Estim Creat Clear Calc 28.40, Est GFR (MDRD) Af Amer 45 L, Est GFR (MDRD) Non-Af 38 L, BUN/Creatinine Ratio 14.2, Glucose 115 H, Calcium 8.8, Troponin I High Sens 07/13/22 08:40: B-Natriuretic Peptide > 5000.0 H 07/13/22 11:10: Troponin I High Sens 07/13/22 11:10: Magnesium 1.4 L 07/13/22 14:00: Troponin I High Sens 07/13/22 20:22: Urine Color Straw, Urine Clarity Clear, Urine pH 6.0, Ur Specific [place] 1.010, Urine Protein Negative, Urine Glucose (UA) Normal, Urine Ketones Negative, Urine Occult Blood Negative, Urine Nitrite Negative, Urine Bilirubin Negative, Urine Urobilinogen Normal, Ur Leukocyte Esterase Negative, Urine RBC 0 SEEN, Urine WBC 0 SEEN, Ur Squamous Epith Cells 0 SEEN, Urine Bacteria 0 SEEN, Urine Mucus 0 SEEN 07/14/22 05:28: WBC 4.1 L, RBC 2.60 L, Hgb 9.1 L, Hct 27.5 L, MCV 105.8 H, MCH 35.0 H, MCHC 33.1, RDW Std Deviation 59.1 H, RDW Coeff of Vanesa 15.5 H, Plt Count 136 L, MPV 11.3, Immature Gran % (Auto) 0.200, Neut % (Auto) 66.0, Lymph % (Auto) 18.1 L, Darke % (Auto) 9.4, Eos % (Auto) 5.3 H, Baso % (Auto) 1.0, Absolute Neuts (auto) 2.7, Absolute Lymphs (auto) 0.75 L, Nucleated RBC % 0 07/14/22 05:28: Sodium 142, Potassium 3.5, Chloride 109 H, Carbon Dioxide 25.0, Anion Gap 8, BUN 31 H, Creatinine 2.06 H, Estim Creat Clear Calc 25.81, Est GFR (MDRD) Af Amer 40 L, Est GFR (MDRD) Non-Af 33 L, BUN/Creatinine Ratio 15.0, Glucose 124 H, Calcium 8.8, Triglycerides 79, Cholesterol 76, LDL Cholesterol 34, VLDL Cholesterol 16, HDL Cholesterol 26 L, TSH 3.05 07/14/22 05:28: Albumin 3.4 Micro: Microbiology 07/13/22 15:43 Stool Enteric Bacteriology - Final Radiography Diagnostic Testing: Radiology Impression Chest X-Ray 07/13/22 08:55 IMPRESSION: Mild congestive heart failure with small bilateral pleural effusions. Electronically Signed: Myles Carias MD at 10:03 EDT , Renal Ultrasound 07/13/22 17:09 IMPRESSION: 1. Mild bilateral hydronephrosis unchanged from prior study. 2. Stable left renal cyst. 3. The increased cortical echogenicity described on the previous study is not appreciated on the current exam. 4. Normal urinary bladder. Electronically Signed: Jacob Templeton DO at 22:15 EDT , Physical Exam Narrative Physical exam General: Alert, Oriented x3, Cooperative HEENT: Atraumatic, PERRLA, EOMI, Normocephalic Oral: No Gingival or Mucosal Lesions/ Ulcerations Neck: Supple, No JVD, Negative Carotid Bruits Lungs: Air entry diminished in bilateral lung bases. No crepitation/rhonchi. On 2 L of oxygen. No tachypnea. Cardiovascular: Irregular rhythm, Normal S1, Normal S2, systolic murmur LLSB. Status post CABG, left-sided pacemaker Abdomen: Bowel Sounds Present, Soft, Non Tender, Non-Distended : Decreased urine output, no renal angle tenderness. No suprapubic tenderness. Extremities: Bilateral below-knee pitting edema improving, Capillary Refill Less than 3 Seconds Skin: No rashes, No breakdown Musculoskeletal: No Tenderness to Palpation of Joints or Extremities. Bilateral knee arthritis, ROM restricted Neurological: Cranial nerves II-XII grossly intact, DTR 2+/4. Muscle strength 4+/5 at major joints of LEs Psych/Mental Status: Flat affect Assessment & Plan Assessment/Plan (1) Acute on chronic HFrEF (heart failure with reduced ejection fraction): PLAN: Plan This 86-year-old gentleman admitted with progressive worsening of shortness of breath with several weeks along with chest discomfort: 1. Acute on chronic HFrEF: Patient is being admitted to PCU on director of cardiac rehabilitation. Patient had recent echo, in March 2022, EF 20%, severe global hypokinesis, 1-2+ eccentric MR, RVSP 44 mmHg consistent with HFrEF and mild pulmonary hypertension. Started on Lasix 40 mg IV twice daily. Heart failure core measures including intake and output, fluid restriction less than 1500 mL, daily weight monitoring, kidney and electrolytes monitoring. Patient follows Dr. Harvey and is going to make appointment to see him. Discussed with artificial leather calender operator. Chest x-ray individually reviewed and shows pulmonary congestion and bilateral small pleural effusion. Patient on Entresto, the dose decreased to half with holding parameter 07/14: Patient was seen by artificial leather calender operator on 07/13. Continue goal-directed heart fa ilure management with diuretics, Entresto and beta-sury. Improvement in shortness of breath and leg swelling. Fasting profile normal except HDL 26. TSH normal. BNP is high. Titrated to Lasix to 40 mg daily. 2. Atypical chest pain: Chest pain is not of anginal quality and EKG is nonspecific. 07/14: Serial troponins normal. ACS ruled out. 3. 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 Creatinine was 2.11 in April 2022 during his admission. Most recent 1.83. Warehouse Receiving Supervisor consulted. Monitor intake and output. Monitor electrolytes. Patient on bicarb, vitamin D continue. Magnesium replacement ordered. 07/14: Renal ultrasound shows mild bilateral hydronephrosis unchanged from prior study. Stable left renal cyst. Increased cortical echogenicity not appreciated. Normal urinary bladder. Started on Flomax as patient might have BPH probably cause for bilateral small hydronephrosis. Bladder scan every 4 hourly. Discussed with the machine records units supervisor. Mild increase in creatinine but does not meet the criteria for MARCOS. Lasix dose decreased as mentioned above. Bicarb 25 therefore sodium bicarbonate discontinued. 4. Chronic diarrhea: During previous hospital stay, his C. difficile test was negative. Month patient was also taking the psyllium until a week ago. Enteric bacteriology panel ordered. If diarrhea persist will need GI consult. 07/14: Enteric bacterial panel negative. Symptomatic control with loperamide. Diarrhea has improved. 5 chronic A. 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 Patient on Coreg and high intensity statin continued. On Eliquis 2.5 mg as per his age and creatinine 6. Patient had recent COVID in April 2022, presented with diarrhea probably colitis: Patient is still has diarrhea. Enteric bacterial panel ordered. Will monitor. PT and OT ordered VTE prophylaxis: On Eliquis 2.5 mg twice daily Total time of the visit including total time spent in counseling or coordination of care, (more than 50% of the total time, spent in obtaining medical information from nurses and other ancillary care providers,explaining to the patient about labs, imaging, diagnosis and management of active complex medical conditions), discussion with machine records units supervisor, review of labs and imaging is 40 minutes. Living will/advanced directive/end of life care: Patient does have living will or advanced directive. His is POA of [facility]. After discussion of benefits/risks procedures involved with full code, DNR CC arrest and DNR CC, the patient and his , POA opted for full code. Patient does want artificial life support including intubation, tube feed, ventilator and/chest compression, central venous catheter, vasopressor and DC shock if needed Total time spent in [id number] encounter in discussion of advanced directive 16 minutes. Clinical Impression(s) from Imaging Studies Chest X-Ray 07/13/22 08:55 IMPRESSION: Mild congestive heart failure with small bilateral pleural effusions. Renal Ultrasound 07/13/22 17:09 IMPRESSION: 1. Mild bilateral hydronephrosis unchanged from prior study. 2. Stable left renal cyst. 3. The increased cortical echogenicity described on the previous study is not appreciated on the current exam. 4. Normal urinary bladder. Laboratory Results 07/13/22 20:22: Urine Color Straw, Urine Clarity Clear, Urine pH 6.0, Ur Specific [place] 1.010, Urine Protein Negative, Urine Glucose (UA) Normal, Urine Ketones Negative, Urine Occult Blood Negative, Urine Nitrite Negative, Urine Bilirubin Negative, Urine Urobilinogen Normal, Ur Leukocyte Esterase Negative, Urine RBC 0 SEEN, Urine WBC 0 SEEN, Ur Squamous Epith Cells 0 SEEN, Urine Bacteria 0 SEEN, Urine Mucus 0 SEEN 07/14/22 05:28: WBC 4.1 L, RBC 2.60 L, Hgb 9.1 L, Hct 27.5 L, MCV 105.8 H, MCH 35.0 H, MCHC 33.1, RDW Std Deviation 59.1 H, RDW Coeff of Vanesa 15.5 H, Plt Count 136 L, MPV 11.3, Immature Gran % (Auto) 0.200, Neut % (Auto) 66.0, Lymph % (Auto ) 18.1 L, Darke % (Auto) 9.4, Eos % (Auto) 5.3 H, Baso % (Auto) 1.0, Absolute Neuts (auto) 2.7, Absolute Lymphs (auto) 0.75 L, Nucleated RBC % 0 07/14/22 05:28: Sodium 142, Potassium 3.5, Chloride 109 H, Carbon Dioxide 25.0, Anion Gap 8, BUN 31 H, Creatinine 2.06 H, Estim Creat Clear Calc 25.81, Est GFR (MDRD) Af Amer 40 L, Est GFR (MDRD) Non-Af 33 L, BUN/Creatinine Ratio 15.0, Glucose 124 H, Calcium 8.8, Triglycerides 79, Cholesterol 76, LDL Cholesterol 34, VLDL Cholesterol 16, HDL Cholesterol 26 L, TSH 3.05 07/14/22 05:28: Albumin 3.4 07/13/22 08:40: WBC 4.6, RBC 2.89 L, Hgb 9.9 L, Hct 30.3 L, MCV 104.8 H, MCH 34.3 H, MCHC 32.7, RDW Std Deviation 58.3 H, RDW Coeff of Vanesa 15.5 H, Plt Count 184, MPV 11.1, Immature Gran % (Auto) 0.200, Neut % (Auto) 64.6, Lymph % (Auto) 19.1, Darke % (Auto) 9.9, Eos % (Auto) 5.5 H, Baso % (Auto) 0.7, Absolute Neuts (auto) 3.0, Absolute Lymphs (auto) 0.87, Nucleated RBC % 0 07/13/22 08:40: Sodium 143, Potassium 3.7, Chloride 111 H, Carbon Dioxide 24.0, Anion Gap 8, BUN 26 H, Creatinine 1.83 H, Estim Creat Clear Calc 28.40, Est GFR (MDRD) Af Amer 45 L, Est GFR (MDRD) Non-Af 38 L, BUN/Creatinine Ratio 14.2, Glucose 115 H, Calcium 8.8, Troponin I High Sens 07/13/22 11:10: Troponin I High Sens 07/13/22 11:10: Magnesium 1.4 L Charges/Coding Visit Charges Inpatient E&M: 57116 Subs Hosp L3
--- NOTE | 2022-07-14 17:16 | NURSING ---
This RN taking over care of pt at this time.
[2022-07-14] MEDS: Tamsulosin HCl 0.4 MG Capsule PO (17:40)
[2022-07-14] MEDS: Atorvastatin Calcium 40 MG Tablet PO (21:39)
[2022-07-15] VITALS (7 sets, daily range): BP systolic 109–129; BP diastolic 51–73; PULSE 60–80; RESP 16–18; TEMP 36.4–36.9; O2SAT 91–96
[2022-07-15 06:56] LABS: Albumin, Serum 3.6 g/dL (3.2-5.0); BUN 36 mg/dL (7-18); BUN/Creat Ratio 17.1 RATIO (10-20); Calcium,Total 9.1 mg/dL (8.5-10.1); Chloride 106 mmol/L (98-107); Creatinine, Serum 2.11 mg/dL (0.70-1.30); EST Glomerular Filtration Rate 32 mL/min (>60); Est Glom Filt Rate - Afr Amer 39 mL/min (>60); Estimated Creatinine Clearance 24.55 ml/min; Glucose 100 mg/dL (74-106); Magnesium 1.2 mg/dL (1.6-2.6); Phosphorus 3.5 mg/dL (2.5-4.9); Potassium 3.5 mmol/L (3.5-5.1); Sodium Level 141 mmol/L (136-145)
[2022-07-15] MEDS: Allopurinol 100 MG Tablet PO (08:09)
[2022-07-15] MEDS: Ascorbic Acid 500 MG Tablet PO (08:09)
[2022-07-15] MEDS: Pyridoxine HCl 100 MG Tablet PO (08:09)
[2022-07-15] MEDS: Carvedilol 12.5 MG Tablet PO (08:09)
[2022-07-15] MEDS: Furosemide 40 MG Tablet PO (09:03)
[2022-07-15] MEDS: Cholecalciferol (VIT D3) 25 MCG TABLET (1,000 UNITS) 100 MCG PO (09:03)
[2022-07-15] MEDS: SACUBITRIL/VALSARTAN 49-51 MG TABLET 0.5 EACH PO (09:03)
[2022-07-15] MEDS: APIXABAN 2.5 MG TABLET PO (09:03)
--- NOTE | 2022-07-15 09:57 | DCINST_ITS ---
Discharge Instructions Diet Discharge Diet: 8 Cup Fluid Restriction and 2000 mg Sodium Diet Activity Discharge Activity: Return to Normal Activity and May Not Drive Dressing / Incision Call your doctor if you observe: Fever of 101 or Higher, Coldness, Increased Pain, Numbness or Tingling, Change in Color, Inability to urinate, Inability to have a bowel movement, Shortness of breath, Dizziness, Fainting spells, Swelling in the ankles, Chest pain, Prolonged hiccupping, Increased palpitations (irregular heartbeat), Calf discomfort and Uncontrolled pain Follow Up Care Test Results: Test results from this visit will be discussed in further detail at your follow- up appointment, if applicable. Discharge Plan Admission Admit Date/Time: 07/13/22 12:50 Primary Reason for Your Visit: Attending Provider: Dav Renteria Primary Care Provider: Yris Culver Consulting Providers: Jered Penn ; Destin Harvey Discharge Orders/Prescriptions Prescriptions: New tamsulosin 0.4 mg Capsule 0.4 mg PO DAILY@1730 Qty: 30 1RF nitroglycerin 0.4 mg Tablet, Sublingual 0.4 mg sublingual Q5M PRN (Reason: Cardiac/Chest Pain) Qty: 30 0RF loperamide 2 mg Capsule 2 mg PO Q4H PRN PRN (Reason: Diarrhea) Qty: 0 0RF Rx Instructions: OTC magnesium oxide 400 mg magnesium tablet 400 mg PO BID Qty: 60 0RF Rx Instructions: Repeat lab BMP and magnesium in 1 week. Hold if serum magnesium more than 2.0 Continued mecobalamin (vitamin B12) 1,000 mcg tablet,disintegrating 1,000 mcg SUBLINGUAL DAILY Rx Instructions: place tablet under tongue and allow to dissolve for at least30 secs before swallowing ascorbate calcium (vitamin C) 500 mg tablet 500 mg PO DAILY coenzyme [id number] E 100 mg-100 unit capsule 100-100 mg-unit capsule 1 cap PO DAILY albuterol sulfate 90 mcg/actuation HFA aerosol inhaler 2 puff INHALATION Q4H PRN (Reason: shortness of breath or wheezing) Qty: 8.5 6RF Rx Instructions: administer with spacer atorvastatin 40 MG tablet 40 mg PO QHS allopurinol 100 MG tablet 100 mg PO BID pyridoxine (vitamin B6) 100 MG tablet 100 mg PO DAILY apixaban 2.5 MG tablet 2.5 mg PO BID Label Comments: TAKE 1 TABLET BY MOUTH TWICE DAILY carvedilol 25 mg tablet 12.5 mg PO BID Label Comments: TAKE 1 TABLET BY MOUTH TWICE DAILY (MUST ADMINISTER WITH A MEAL/FOOD) Entresto 49-51 mg Tablet 1 tab PO BID cholecalciferol (vitamin D3) 50 mcg (2,000 unit) tablet 50 mcg PO DAILY Qty: 1 0RF Changed torsemide 10 mg Tablet 20 mg PO DAILY Qty: 60 0RF Rx Instructions: Take an additional 10 mg dose at 5 PM for increased leg swelling or weight gain 5 pounds in 1 week. Discontinued zinc 50 mg tablet 50 mg PO DAILY sodium bicarbonate 650 mg Tablet 650 mg PO TID Qty: 15 0RF Referrals / Follow Up: Destin Harvey MD [Med Staff - Active Staff] - Within 1 Month Stefany Norwood MD [Med Staff - Consulting] - Within 2 Weeks (CKD Stage 4 ) Yris Culver MD [Primary Care Provider] - Within 2 Weeks Disposition Disposition (needs filled in before D/C Order can be placed): Home Health Service
--- NOTE | 2022-07-15 10:19 | CASEMGMT ---
Addendum entered by Teri Hester 07/15/22 10:51: Severo Hendricks RN, pt does not qualify for home oxygen. Augustus DE LA PAZ CM Original Note: This RN CM to room to discuss d/c plan with pt. Pt states no need for any further therapy at discharge. Pt to be tested for home oxygen. Pt voices no further questions/concerns/needs. [employer] DE LA PAZ CM
--- NOTE | 2022-07-15 11:13 | PN.RENAL_ITS ---
Subjective Subjective Following for MARCOS on CKD Sitting at side of bed. Denies any complaints. Reports appetite is good. Denies any diarrhea. Reports breathing has improved and swelling to legs improved. Objective Data Objective Data Vital Signs: Vital Signs Temp Pulse Resp BP Pulse Ox O2 Del Method O2 Flow Rate 97.6 F L 80 18 129/73 H 95 Nasal Cannula 2 07/15/22 09:00 07/15/22 09:00 07/15/22 09:00 07/15/22 09:00 07/15/22 10:19 07/15/22 09:00 07/15/22 09:00 Oxygen Flow Rate (L/min) 2 Oxygen Delivery Method Nasal Cannula Weight: 67.8 kg Body Mass Index (BMI) 22.4 Intake & Output: Intake and Output for Last 24 Hours 07/13/22 07/14/22 07/15/22 23:59 23:59 23:59 Intake Total 601.5 / 601.5 360 / 360 Output Total 700 / 700 2550 / 2550 1300 / 1300 Balance -98.5 / -98.5 -2190 / -2190 -1300 / -1300 Lab / Micro Data Result Diagrams: 07/14/22 05:28 07/15/22 05:45 Labs: Laboratory Results - last 24 hr 07/15/22 05:45: Sodium 141, Potassium 3.5, Chloride 106, Carbon Dioxide 25.0, BUN 36 H, Creatinine 2.11 H, Estim Creat Clear Calc 24.55, Est GFR (MDRD) Af Amer 39 L, Est GFR (MDRD) Non-Af 32 L, BUN/Creatinine Ratio 17.1, Glucose 100, Calcium 9.1, Phosphorus 3.5, Magnesium 1.2 L, Albumin 3.6 Micro: Microbiology 07/13/22 15:43 Stool Enteric Bacteriology - Final Physical Exam Narrative Alert and oriented x3, no apparent distress S1, S2, rhythm irregular, rate controlled Lung sounds clear anteriorly and posteriorly, no wheezes, rhonchi rales noted Abdomen is soft, nontender, positive bowel sounds x4 quadrants 1+ pitting edema bilateral lower legs; Bassem wraps to bilateral legs Assessment & Plan Assessment/Plan (1) Acute on chronic HFrEF (heart failure with reduced ejection fraction): (2) Acute kidney injury: (3) Chronic kidney disease (CKD): PLAN: Plan - Nonoliguric, mildly hypervolemic MARCOS possibly from cardio-renal syndrome physiology and not surprising to see fluctuations in serum creatinine. Creatinine 1.83 mg/dL on admission, today creatinine is 2.11 mg/dL. On oral lasix 40mg, off IV lasix. He is net -3.5 L. Weight is down, admission weight 70.8 kg, current weight 67.8 kg. At this time there is no acute indication for renal placement therapy. Patient is nonoliguric, no uremia, overall renal function is stable and this may be baseline CKD for patient. -CKD stage 3: Baseline creatinine as of April 2022 had been ranging around 1.3 mg/dL. He may have some progression of CKD and possible new baseline SCr ~1.6- 1.9mg/dL. Encouraged patient and family to follow with work car operator in [place] and to make appointment to be seen within around next few weeks for hospital follow-up. Patient had a renal ultrasound in April 2022 which showed mild bilateral hydronephrosis, cortical thinning with increased renal cortical echogenicity suggestive of medical renal disease. Repeat Renal US again showing mild b/l hydronephrosis. Patient was started on flomax and to get set up with Urology at discharge. - bps acceptable on coreg, lasix and entresto -Acute on chronic decompensated heart failure. Last known EF 20% March 2022. Cardiology following. Admission Chest x-ray showed mild congestion, small bilateral pleural effusions. BNP >5000. Initially started on lasix 40mg IV bid, now on daily oral lasix. Overall improving. Weight down, edema improved. Was on O2 NC @2L, now on room air. To followup with cardiology -chronic diarrhea; per patient report improving. Stopped sodium bicarb. Bicarb 25 again today. Stool for enteric pathogen panel negative. -Possible discharge to home today after receiving magnesium supplement. He will be going home on torsemide 10 mg daily, magnesium and also flomax; no sodium bicarbonate at discharge. - discussed with Dr. Renteria
[2022-07-15] MEDS: Magnesium Sulfate 4gm/100mL 4 GM/100 ML IV.SOLN. IV (11:23)
[2022-07-15] MEDS: 0.9% Saline Lock 10 ML Syringe IV (11:24)
--- NOTE | 2022-07-15 11:43 | PCM.DC.SUM ---
Providers Date of Admission: 07/13/22 Date of Discharge: 07/15/22 Primary Care Physician: Dr. Yris Culver MD Consultations 07/13/22 13:40 Consult: Nephrology Routine Consulting Provider: Jered Penn Reason for Consult: MARCOS ON CKD, HF exa on diuretics EMERGENT Consult: No Notified: Yes Date Notified: 07/13/22 Time Notified: 12:56 Method of Notification: Text 07/13/22 14:52 Consult: Cardiology Routine Consulting Provider: Destin Harvey Reason for Consult: CHF exa. EMERGENT Consult: No Notified: Yes Date Notified: 07/13/22 Time Notified: 13:52 Method of Notification: Verbal Reason For Visit: CHEST PAIN/ CHF EXA Diagnosis Discharge Diagnosis (1) Acute on chronic HFrEF (heart failure with reduced ejection fraction): Status: Chronic Code(s): I50.23 - Acute on chronic systolic (congestive) heart failure Medications at Discharge Home Medications allopurinol 100 mg tablet 100 mg PO BID Gout 11/24/18 atorvastatin 40 mg tablet 40 mg PO QHS Cholesterol 11/24/18 pyridoxine (vitamin B6) 100 mg tablet 100 mg PO DAILY supplement 11/24/18 apixaban 2.5 mg tablet 2.5 mg PO BID Blood thinner 12/02/20 albuterol sulfate 90 mcg/actuation aerosol inhaler 2 puff inhalation Q4H PRN shortness of breath or wheezing #8.5 grams 12/25/20 ascorbate calcium (vitamin C) 500 mg tablet 500 mg PO DAILY supplement 12/25/20 coenzyme [id number] E 100 mg-100 unit capsule 1 cap PO DAILY supplement 12/25/20 mecobalamin (vitamin B12) 1,000 mcg disintegrating tablet,sublingual 1,000 mcg sublingual DAILY supplement 12/25/20 cholecalciferol (vitamin D3) 50 mcg (2,000 unit) tablet 50 mcg PO DAILY #1 TAB 03/09/22 carvedilol 25 mg tablet 12.5 mg PO BID HTN 05/07/22 sacubitril 49 mg-valsartan 51 mg tablet (Entresto) 1 tab PO BID heart failure 05/07/22 loperamide 2 mg capsule 2 mg PO Q4H PRN PRN Diarrhea #0 caps 07/15/22 magnesium oxide 400 mg PO BID #60 tabs 07/15/22 nitroglycerin 0.4 mg sublingual tablet 0.4 mg sublingual Q5M PRN Cardiac/Chest Pain #30 tabs 07/15/22 tamsulosin 0.4 mg capsule 0.4 mg PO DAILY@1730 #30 caps 07/15/22 torsemide 10 mg tablet 20 mg PO DAILY diuretic #60 tabs 07/15/22 Hospital Course Summary of Care Provided Hospital Course: This 86-year-old gentleman admitted with progressive worsening of shortness of breath with several weeks along with chest discomfort: 1. Acute on chronic HFrEF: Patient is being admitted to PCU on hall monitor. Patient had recent echo, in March 2022, EF 20%, severe global hypokinesis, 1-2+ eccentric MR, RVSP 44 mmHg consistent with HFrEF and mild pulmonary hypertension. Started on Lasix 40 mg IV twice daily. Heart failure core measures including intake and output, fluid restriction less than 1500 mL, daily weight monitoring, kidney and electrolytes monitoring. Patient follows Dr. Harvey and is going to make appointment to see him. Discussed with reel blade bender furnace tender. Chest x-ray individually reviewed and shows pulmonary congestion and bilateral small pleural effusion. Patient on Entresto, the dose decreased to half with holding parameter 07/14: Patient was seen by reel blade bender furnace tender on 07/13. Continue goal-directed heart failure management with diuretics, Entresto and beta-sury. Improvement in shortness of breath and leg swelling. Fasting profile normal except HDL 26. TSH normal. BNP is high. Titrated to Lasix to 40 mg daily. 07/15: Patient is being discharged on torsemide 20 mg daily daily and Lasix 40 mg daily. Patient already on Entresto, carvedilol and high intensity statin continued. Patient continued to have hypomagnesemia: Magnesium 1.2, magnesium 4 g IV replacement. Prescription given for magnesium oxide 400 mg twice daily. Advised to check BMP and magnesium in 1 week and follow-up with clinical scientist and reel blade bender furnace tender 2. Atypical chest pain: Chest pain is not of anginal quality and EKG is nonspecific. 07/14: Serial troponins normal. ACS ruled out. 3. 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 Creatinine was 2.11 in April 2022 during his admission. Most recent 1.83. [employer] Lead consulted. Monitor intake and output. Monitor electrolytes. Patient on bicarb, vitamin D continue. Magnesium replacement ordered. 07/14: Renal ultrasound shows mild bilateral hydronephrosis unchanged from prior study. Stable left renal cyst. Increased cortical echogenicity not appreciated. Normal urinary bladder. Started on Flomax as patient might have BPH probably cause for bilateral small hydronephrosis. Bladder scan every 4 hourly. Discussed with the clinical scientist. Mild increase in creatinine but does not meet the criteria for MARCOS. Lasix dose decreased as mentioned above. Bicarb 25 therefore sodium bicarbonate discontinued. 07/15: Prescription given for Flomax. Follow-up with urologist Dr. Casarez. 4. Chronic diarrhea: During previous hospital stay, his C. difficile test was negative. Month patient was also taking the psyllium until a week ago. Enteric bacteriology panel ordered. If diarrhea persist will need GI consult. 07/14: Enteric bacterial panel negative. Symptomatic control with loperamide. Diarrhea has improved. 07/15: [id number] symptomatic management loperamide as needed for diarrhea. 5 chronic A. 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 Patient on Coreg and high intensity statin continued. On Eliquis 2.5 mg as per his age and creatinine 6. Patient had recent COVID in April 2022, presented with diarrhea probably colitis: Patient is still has diarrhea. Enteric bacterial panel ordered. Will monitor. PT and OT ordered VTE prophylaxis: On Eliquis 2.5 mg twice daily Discharge medication reconciliation done. Discharge follow-up instructions completed. Discharge process discussed with the patient and all questions were answered to patient's satisfaction. Total time spent, exact 35 minutes on discharge meds reconciliation, examination, coordination of care with nurses and ancillary staff, review of imaging and blood test and discussion with the patient on follow-up instructions. Living will/advanced directive/end of life care: Patient does have living will or advanced directive. His is POA of health. After discussion of benefits/risks procedures involved with full code, DNR CC arrest and DNR CC, the patient and his , POA opted for full code. Patient does want artificial life support including intubation, tube feed, ventilator and/chest compression, central venous catheter, vasopressor and DC shock if needed Clinical Impression(s) from Imaging Studies Chest X-Ray 07/13/22 08:55 IMPRESSION: Mild congestive heart failure with small bilateral pleural effusions. Renal Ultrasound 07/13/22 17:09 IMPRESSION: 1. Mild bilateral hydronephrosis unchanged from prior study. 2. Stable left renal cyst. 3. The increased cortical echogenicity described on the previous study is not appreciated on the current exam. 4. Normal urinary bladder. Microbiology Past 72 Hours 07/13/22 15:43 Stool Enteric Bacteriology - Final Laboratory Results 07/15/22 05:45: Sodium 141, Potassium 3.5, Chloride 106, Carbon Dioxide 25.0, BUN 36 H, Creatinine 2.11 H, Estim Creat Clear Calc 24.55, Est GFR (MDRD) Af Amer 39 L, Est GFR (MDRD) Non-Af 32 L, BUN/Creatinine Ratio 17.1, Glucose 100, Calcium 9.1, Phosphorus 3.5, Magnesium 1.2 L, Albumin 3.6 Physical Exam Narrative Seen and examined. Shortness of breath is better. Chest pain resolved. Patient can walk to the bathroom. PT was done and does not need SNF. Encouraged to do incentive spirometry. Discussed with patient's daughter and son-in-law present in the room. Physical exam General: Alert, Oriented x3, Cooperative HEENT: Atraumatic, PERRLA, EOMI, Normocephalic Oral: No Gingival or Mucosal Lesions/ Ulcerations Neck: Supple, No JVD, Negative Carotid Bruits Lungs: Air entry diminished in bilateral lung bases. No crepitation/rhonchi/wheezing. 95% on room air. No tachypnea. Cardiovascular: Irregular rhythm, Normal S1, Normal S2, systolic murmur LLSB. Status post CABG, left-sided pacemaker Abdomen: Bowel Sounds Present, Soft, Non Tender, Non-Distended : Decreased urine output, no renal angle tenderness. No suprapubic tenderness. Extremities: Bilateral ankle pitting edema improving, Capillary Refill Less than 3 Seconds Skin: No rashes, No breakdown Musculoskeletal: No Tenderness to Palpation of Joints or Extremities. Bilateral knee arthritis, ROM restricted Neurological: Cranial nerves II-XII grossly intact, DTR 2+/4. Muscle strength 4+/5 at major joints of LEs Psych/Mental Status: Flat affect Weight / BMI Weight Weight: 149 lb 7.574 oz Body Mass Index (BMI) 22.4 ABG / Lab / Microbiology Data Result Diagrams: 07/14/22 05:28 07/15/22 05:45 Laboratory: Laboratory Results - last 24 hr 07/15/22 05:45: Sodium 141, Potassium 3.5, Chloride 106, Carbon Dioxide 25.0, BUN 36 H, Creatinine 2.11 H, Estim Creat Clear Calc 24.55, Est GFR (MDRD) Af Amer 39 L, Est GFR (MDRD) Non-Af 32 L, BUN/Creatinine Ratio 17.1, Glucose 100, Calcium 9.1, Phosphorus 3.5, Magnesium 1.2 L, Albumin 3.6 Microbiology: Microbiology 07/13/22 15:43 Stool Enteric Bacteriology - Final D/C Instructions Discharge Diet: 8 Cup Fluid Restriction and 2000 mg Sodium Diet Meaningful Use Info Meaningful Use Diagnoses (Choose all that apply): None applicable Discharge Plan Admission Admit Date/Time: 07/13/22 12:50 Primary Reason for Your Visit: Attending Provider: Dav Renteria Primary Care Provider: Yris Culver Consulting Providers: Jered Penn ; Destin Harvey Instructions Additional Instructions / Restrictions: Advised BMP and magnesium in 1 week and follow-up with clinical scientist, Dr Norwood or PCP Discharge Orders/Prescriptions Prescriptions: New tamsulosin 0.4 mg Capsule 0.4 mg PO DAILY@1730 Qty: 30 1RF nitroglycerin 0.4 mg Tablet, Sublingual 0.4 mg sublingual Q5M PRN (Reason: Cardiac/Chest Pain) Qty: 30 0RF loperamide 2 mg Capsule 2 mg PO Q4H PRN PRN (Reason: Diarrhea) Qty: 0 0RF Rx Instructions: OTC magnesium oxide 400 mg magnesium tablet 400 mg PO BID Qty: 60 0RF Rx Instructions: Repeat lab BMP and magnesium in 1 week. Hold if serum magnesium more than 2.0 Continued mecobalamin (vitamin B12) 1,000 mcg tablet,disintegrating 1,000 mcg SUBLINGUAL DAILY Rx Instructions: place tablet under tongue and allow to dissolve for at least30 secs before swallowing ascorbate calcium (vitamin C) 500 mg tablet 500 mg PO DAILY coenzyme [id number] E 100 mg-100 unit capsule 100-100 mg-unit capsule 1 cap PO DAILY albuterol sulfate 90 mcg/actuation HFA aerosol inhaler 2 puff INHALATION Q4H PRN (Reason: shortness of breath or wheezing) Qty: 8.5 6RF Rx Instructions: administer with spacer atorvastatin 40 MG tablet 40 mg PO QHS allopurinol 100 MG tablet 100 mg PO BID pyridoxine (vitamin B6) 100 MG tablet 100 mg PO DAILY apixaban 2.5 MG tablet 2.5 mg PO BID Label Comments: TAKE 1 TABLET BY MOUTH TWICE DAILY carvedilol 25 mg tablet 12.5 mg PO BID Label Comments: TAKE 1 TABLET BY MOUTH TWICE DAILY (MUST ADMINISTER WITH A MEAL/FOOD) Entresto 49-51 mg Tablet 1 tab PO BID cholecalciferol (vitamin D3) 50 mcg (2,000 unit) tablet 50 mcg PO DAILY Qty: 1 0RF Changed torsemide 10 mg Tablet 20 mg PO DAILY Qty: 60 0RF Rx Instructions: Take an additional 10 mg dose at 5 PM for increased leg swelling or weight gain 5 pounds in 1 week. Discontinued zinc 50 mg tablet 50 mg PO DAILY sodium bicarbonate 650 mg Tablet 650 mg PO TID Qty: 15 0RF Referrals / Follow Up: Destin Harvey MD [Med Staff - Active Staff] - Within 1 Month Stefany Norwood MD [Med Staff - Consulting] - Within 2 Weeks (CKD Stage 4 ) Toi Casarez MD [Med Staff - Active Staff] - Within 1 Month (Bilateral small unchanged hydronephrosis on renal ultrasound. Prescription for Flomax given. Possible BPH) Yris Culver MD [Primary Care Provider] - Within 1 Week Disposition Disposition (needs filled in before D/C Order can be placed): Home Health Service
== END 2022-07-15 15:46 | disposition home health service (06) | DRG 291 ==
LOC: ED 09:03 → PCU 13:16
PROVIDERS: Nurse Practitioner Adult Health; Admitting Provider Internal Medicine; Emergency Provider Student in an Organized Health Care Education/Training Program; PCP Internal Medicine; Visit Provider Internal Medicine
DX: I13.0 Hypertensive heart and chronic kidney disease with heart failure and stage 1 through stage 4 chronic kidney disease, or unspecified chronic kidney disease (principal); I50.23 Acute on chronic systolic (congestive) heart failure; I48.92 Unspecified atrial flutter; N18.4 Chronic kidney disease, stage 4 (severe); N13.30 Unspecified hydronephrosis; I27.20 Pulmonary hypertension, unspecified; E86.1 Hypovolemia; I48.0 Paroxysmal atrial fibrillation; E83.42 Hypomagnesemia; I25.10 Atherosclerotic heart disease of native coronary artery without angina pectoris; K52.9 Noninfective gastroenteritis and colitis, unspecified; I45.10 Unspecified right bundle-branch block; I65.29 Occlusion and stenosis of unspecified carotid artery; I25.5 Ischemic cardiomyopathy; I34.0 Nonrheumatic mitral (valve) insufficiency; Z86.16 Personal history of COVID-19; Z79.899 Other long term (current) drug therapy; Z95.1 Presence of aortocoronary bypass graft; Z79.01 Long term (current) use of anticoagulants; R09.02 Hypoxemia; I49.3 Ventricular premature depolarization; N28.1 Cyst of kidney, acquired; N40.0 Benign prostatic hyperplasia without lower urinary tract symptoms
CPT/HCPCS: 36415; 71045; 76770; 80048; 80061; 80069; 81001; 82040; 83735; 83880; 84443; 84484; 85025; 87506; 93005; 97162; 97166; 97802; 99285; J7050; A4216; J1940

== ENCOUNTER → 2022-08-17 | Outpatient (CLI) | payer MEDICARE, OTHER, SELFPAY ==
--- NOTE | 2022-08-17 13:58 | ECHOL_ITS ---
Reason For Study: CMP Procedure This was a limited 2D transthoracic echocardiogram. Exam performed in department. Left Ventricle Normal left ventricle. The estimated ejection fraction is 20 %. There is severe global hypokinesis of the left ventricle. Right Ventricle Normal RV size. ICD or pacer leads identified within the right ventricle. Normal systolic function. Atria The left atrium is moderately enlarged. The right atrium is moderately enlarged. Mitral Valve Normal mitral valve. Tricuspid Valve Normal tricuspid valve. Great Vessels Normal aortic root. Pericardium/Pleural No pericardial effusion. MMode/2D Measurements & Calculations LVIDd: 5.0 cm IVSd: 1.3 cm LAV(MOD-bp): 91.4 ml LVIDs: 4.7 cm LVPWd: 1.1 cm LAV(MOD-bp) Indexed: 51.0 ml/m2 FS: 5.3 % LAV(MOD-sp2): 88.2 ml LAV(MOD-sp4): 85.3 ml LVAd ap4: 38.9 cm2 SV(MOD-sp4): 36.2 ml SV(sp4-el): 37.4 ml LVLd ap4: 9.2 cm EDV(MOD-sp4): 136.4 ml EDV(sp4-el): 140.6 ml LVAs ap4: 32.4 cm2 LVLs ap4: 8.6 cm ESV(MOD-sp4): 100.2 ml ESV(sp4-el): 103.3 ml EF(MOD-sp4): 26.5 % EF(sp4-el): 26.6 % LA A4 area: 26.4 cm2 LA dimension(2D): 5.1 cm RA A4 area: 25.8 cm2 ECHO/Echo, Limited Study Interpretation Summary Normal left ventricle. The estimated ejection fraction is 20 %. The global longitudinal strain is severely abnormal. The global longitudinal st rain = -4.6% (abnormal). The study was technically limited. Compared to previous study, the left ventricular systolic function is the same.. Ordering Physician: Monik Gilbert Referring Physician: Monik Gilbert Performed By: Ethel Melgar RCS
== END | disposition home or self-care (01) ==
LOC: CVS 13:50
PROVIDERS: PCP Internal Medicine; Referring Provider Nurse Practitioner Gerontology; Visit Provider Nurse Practitioner Gerontology
DX: I25.5 Ischemic cardiomyopathy (principal)
CPT/HCPCS: 93308

== ENCOUNTER 2022-09-05 03:14 | Emergency (ER) | payer MEDICARE, OTHER, SELFPAY ==
[2022-09-05] VITALS (7 sets, daily range): BP systolic 127–146; BP diastolic 72–92; PULSE 76–107; RESP 21–25; TEMP 36.6; O2SAT 87–95; BMI 22.4
--- NOTE | 2022-09-05 04:07 | RAD_ITS ---
EXAM: XR CHEST, 1 VIEW CLINICAL INDICATION: chest pain TECHNIQUE: Frontal view of the chest. This report was created using [employer] report generation technology. COMPARISON: 07/13/2022 FINDINGS: LUNGS AND PLEURAL SPACES: Central pulmonary vascular congestion. No pneumothorax. No effusion. HEART: Moderate enlargement of the cardiac silhouette. MEDIASTINUM: Surgical changes in the mediastinum. BONES/JOINTS: Unremarkable. SOFT TISSUES: Unremarkable. TUBES, LINES AND DEVICES: Left chest pacer. RAD/Chest 1 View (Portable) IMPRESSION: Central pulmonary vascular congestion. Electronically Signed: Johny Michelle MD at 5:01 EST ,
--- NOTE | 2022-09-05 04:07 | EKG12_ITS ---
Test Reason : CP Blood Pressure : / mmHG Vent. Rate : 106 BPM Atrial Rate : 106 BPM P-R Int : 192 ms QRS Dur : 106 ms QT Int : 380 ms P-R-T Axes : 242 -18 -26 degrees QTc Int : 504 ms Atrial-sensed ventricular-paced rhythm Abnormal ECG Confirmed by MYRON MENSAH, MAYURI ([id number]), business editor SHANELL HUFFMAN ([id number]) on 09/08/2022 11:02:33 AM Referred By: ESDRAS Confirmed By:MAYURI SANCHES MD
--- NOTE | 2022-09-05 04:18 | EX.ED.DYSGE1 ---
HPI History of Present Illness Chief Complaint: Chest Pain Narrative Narrative: Patient is an 87-year-old male with past medical history of ischemic cardiomyopathy and congestive heart failure as well as atrial flutter with pacemaker placement currently on Eliquis. He states that he went to bed as he normally does and then awoke with left-sided chest pain that was more sharp in nature and would radiate down the left side of his stomach. He states there was no associated nausea vomiting diaphoresis or shortness of breath. He states that he knows he has history of heart issues and with him awaking with this pain was concerned and therefore called EMS to bring him in for evaluation. Upon arrival to the ER patient states has been spontaneous resolution of his chest pain but now he has more left-sided abdominal pain and reports bouts of loose stool/diarrhea. [facility] Medical History Acute electrocardiogram changes Anemia Atherosclerosis of [place] coronary artery of [place] heart without angina pectoris Brain bleed Carotid artery disease Chronic kidney disease (CKD) Congestive heart failure COVID-19 Diarrhea Elevated troponin Generalized weakness GERD (gastroesophageal reflux disease) Hypokalemia Ischemic cardiomyopathy Paroxysmal atrial fibrillation Home Medications allopurinol 100 mg tablet 100 mg PO BID Gout 11/24/18 [History Last Taken 05/07/22] atorvastatin 40 mg tablet 40 mg PO QHS Cholesterol 11/24/18 [History Last Taken 05/06/22] pyridoxine (vitamin B6) 100 mg tablet 100 mg PO DAILY supplement 11/24/18 [History Last Taken 05/07/22] apixaban 2.5 mg tablet 2.5 mg PO BID Blood thinner 12/02/20 [History Last Taken 05/07/22] albuterol sulfate 90 mcg/actuation aerosol inhaler 2 puff inhalation Q4H PRN shortness of breath or wheezing #8.5 grams 12/25/20 [Rx Last Taken Unknown] ascorbate calcium (vitamin C) 500 mg tablet 500 mg PO DAILY supplement 12/25/20 [History Last Taken 05/07/22] coenzyme [id number] E 100 mg-100 unit capsule 1 cap PO DAILY supplement 12/25/20 [History Last Taken 05/07/22] mecobalamin (vitamin B12) 1,000 mcg disintegrating tablet,sublingual 1,000 mcg sublingual DAILY supplement 12/25/20 [History Last Taken 05/07/22] cholecalciferol (vitamin D3) 50 mcg (2,000 unit) tablet 50 mcg PO DAILY #1 TAB 03/09/22 [Rx Last Taken 05/07/22] sacubitril 49 mg-valsartan 51 mg tablet (Entresto) 1 tab PO BID heart failure 05/07/22 [History Last Taken 05/07/22] loperamide 2 mg capsule 2 mg PO Q4H PRN PRN Diarrhea #0 caps 07/15/22 [Rx Last Taken Unknown] magnesium oxide 400 mg PO BID #60 tabs 07/15/22 [Rx Last Taken Unknown] nitroglycerin 0.4 mg sublingual tablet 0.4 mg sublingual Q5M PRN Cardiac/Chest Pain #30 tabs 07/15/22 [Rx Last Taken Unknown] carvedilol 12.5 mg tablet 12.5 mg PO BID HTN #180 tabs 07/16/22 [Rx Last Taken Unknown] potassium chloride 10 mEq tablet,extended release 10 meq PO BID PRN Hypokalemia 08/04/22 [History Last Taken Unknown] Allergy/AdvReac Type Severity Reaction Status Date / Time No Known Allergies Allergy Verified 09/03/22 07:16 Family History Father CAD (coronary artery disease) Surgical History History of brain surgery History of coronary artery bypass graft x 3 History of craniotomy History of permanent cardiac pacemaker placement Social History Smoking Status: Never smoker ROS ROS ED Constitutional Constitutional ED: Denies chills or fever(s) ENT ENT ED: Denies sore throat Cardiovascular Cardiovascular: Reports chest pain Respiratory/Chest Respiratory/Chest: Denies cough or dyspnea Gastrointestinal Gastrointestinal: Reports abdominal pain and diarrhea; Denies nausea or vomiting Genitourinary Genitourinary ED: Denies dysuria Musculoskeletal Musculoskeletal: Denies back pain or myalgias Integumentary Denies rash Neurologic Neurologic: Denies headache(s) Hematologic/Lymphatic Hematologic/Lymphatic: Reports easy bleeding and easy bruising EXAM Physical Exam Const Vital Signs: 09/05/22 03:16 09/05/22 03:21 09/05/22 04:26 Temperature 97.9 F 97.9 F Temperature Source Oral Oral Pulse Rate 107 H 107 H 76 Respiratory Rate 21 H 22 H 23 H Blood Pressure 146/92 H 146/92 H 146/92 H Blood Pressure Mean 110 110 110 Pulse Ox 94 94 93 Oxygen Delivery Method Room Air Room Air Room Air Oxygen Flow Rate (L/min) 09/05/22 05:55 09/05/22 05:56 09/05/22 06:12 Temperature Temperature Source Pulse Rate 77 77 77 Respiratory Rate 23 H 23 H 23 H Blood Pressure 127/72 H 127/72 H 127/72 H Blood Pressure Mean 90 90 90 Pulse Ox 87 92 92 Oxygen Delivery Method Room Air Nasal Cannula Nasal Cannula Oxygen Flow Rate (L/min) 3 3 Positive well nourished and well developed General Appearance ED: well developed HEENT Reports moist mucous membranes Eyes PERRL and EOMs intact bilaterally Neck supple Neck Narrative: Trace JVD is noted on right Chest Wall palpation of chest normal Resp normal respiratory effort and clear to auscultation bilaterally Resp Narrative: Breath sounds are diminished throughout but overall clear to auscultation without nasal flaring retractions tachypnea or accessory muscle use or crackles noted Cardio regular rate and regular rhythm Rate: other Other Details: Radial pulses are +2-4 bilaterally are equal and Carotid pulses are equal and symmetric as well GI non-distended GI Narrative: Abdomen is soft and nondistended with slightly hyperactive bowel sounds. There is mild pain with palpation in the left-sided abdomen without voluntary guarding or rigidity. No pulsatile mass or fluid wave Palpation: soft Extremity Extremity Narrative: +1-2 pitting edema to the bilateral lower extremities that is equal and symmetric and chronic per patient. Negative Homans' sign bilaterally Neuro oriented x3 and CN's II-XII intact bilaterally Sensorium / Orientation: alert Psych mental status grossly normal Skin no rashes or lesions noted MDM MDM MDM Narrative Medical decision making narrative: Patient presented to the ER with spontaneous resolution of his discomfort. He does have risk factors for cardiovascular disease and therefore a basic cardiac work-up was obtained. Initial troponin was normal at 36. 2-hour delta troponin actually decreased by 2 points down to a value of 34 indicating no acute coronary injury. Chest x-ray showed vascular congestion but his pulse ox is in the mid 90s and the vascular congestion has improved when compared to previous study from June of this year. The patient's pacemaker was interrogated and they confirm that 80% the time he is in A. fib/a flutter but as he is anticoagulated my concern for DVT/PE is low. They state that his pacer is otherwise functioning properly. Therefore at this time as the patient's work-up reveals no clinically significant findings and he has had resolution of his pain since arrival in the ER and interrogation of his pacemaker reveals it is functioning properly I do not feel there is need for admission and he is otherwise safe for discharge Lab Data Attestation: I reviewed the patient's lab results. Labs: Laboratory Results - last 24 hr 09/05/22 09/05/22 09/05/22 04:20 04:20 06:10 WBC 4.2 L RBC 2.87 L Hgb 9.6 L Hct 29.6 L MCV 103.1 H MCH 33.4 H MCHC 32.4 RDW Std Deviation 58.2 H RDW Coeff of Vanesa 15.6 H Plt Count 139 L MPV 11.2 Immature Gran % (Auto) 0.000 Neut % (Auto) 64.8 Lymph % (Auto) 18.9 L [place] % (Auto) 10.6 H Eos % (Auto) 5.0 Baso % (Auto) 0.7 Absolute Neuts (auto) 2.7 Absolute Lymphs (auto) 0.80 L Nucleated RBC % 0 Sodium 143 Potassium 3.7 Chloride 114 H Carbon Dioxide 20.0 L Anion Gap 9 BUN 40 H Creatinine 1.84 H Estim Creat Clear Calc 28.98 Est GFR (MDRD) Af Amer 45 L Est GFR (MDRD) Non-Af 37 L BUN/Creatinine Ratio 21.7 H Glucose 108 H Calcium 8.9 Magnesium 1.9 Troponin I High Sens 36 34 Radiography Diagnostic Testing: Clinical Impression(s) from Imaging Studies Chest X-Ray 09/05/22 04:07 IMPRESSION: Central pulmonary vascular congestion. Electronically Signed: Johny Michelle MD at 5:01 EST , Chest x-ray as interpreted by the emergency medicine physician shows pulmonary vascular congestion without infiltrate or pleural effusion. Today's x-ray was compared to previous from June of this year and shows improvement in the fluid load. 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 Instructions: ED Atrial Flutter, ED Chest Pain, Uncertain Cause Prescriptions: No Action mecobalamin (vitamin B12) 1,000 mcg tablet,disintegrating 1,000 mcg SUBLINGUAL DAILY Rx Instructions: place tablet under tongue and allow to dissolve for at least30 secs before swallowing ascorbate calcium (vitamin C) 500 mg tablet 500 mg PO DAILY coenzyme [id number] E 100 mg-100 unit capsule 100-100 mg-unit capsule 1 cap PO DAILY albuterol sulfate 90 mcg/actuation HFA aerosol inhaler 2 puff INHALATION Q4H PRN (Reason: shortness of breath or wheezing) Qty: 8.5 6RF Rx Instructions: administer with spacer potassium chloride 10 mEq tablet extended release 10 meq PO BID PRN (Reason: Hypokalemia) atorvastatin 40 MG tablet 40 mg PO QHS allopurinol 100 MG tablet 100 mg PO BID pyridoxine (vitamin B6) 100 MG tablet 100 mg PO DAILY apixaban 2.5 MG tablet 2.5 mg PO BID Label Comments: TAKE 1 TABLET BY MOUTH TWICE DAILY Entresto 49-51 mg Tablet 1 tab PO BID nitroglycerin 0.4 mg Tablet, Sublingual 0.4 mg sublingual Q5M PRN (Reason: Cardiac/Chest Pain) Qty: 30 0RF loperamide 2 mg Capsule 2 mg PO Q4H PRN PRN (Reason: Diarrhea) Qty: 0 0RF Rx Instructions: OTC magnesium oxide 400 mg magnesium tablet 400 mg PO BID Qty: 60 0RF Rx Instructions: Repeat lab BMP and magnesium in 1 week. Hold if serum magnesium more than 2.0 cholecalciferol (vitamin D3) 50 mcg (2,000 unit) tablet 50 mcg PO DAILY Qty: 1 0RF carvedilol 12.5 mg tablet 12.5 mg PO BID Qty: 180 3RF Primary Care Provider: Yris Culver Referrals: Yris Culver MD [Primary Care Provider] - Activity Restrictions/Additional Instructions: Please continue all your medications as previously directed by your doctor and return to the ER should you have any further concerns Disposition Disposition: Home, Self Care
[2022-09-05 04:27] LABS: Absolute Neutrophil Count 2.7 X10^3/uL (2.0-7.7); Basophil# 0.03 X10^3/uL; Basophil% 0.7 % (0-1); Eosinophil# 0.21 X10^3/uL; Hematocrit 29.6 % (40-54); Hemoglobin 9.6 g/dL (13.0-16.5); Lymphocyte % 18.9 % (19-41); Mean Corp Hgb Conc 32.4 g/dL (32-36); Mean Corpuscular Hgb 33.4 pg (27.0-32.0); Mean Corpuscular Volume 103.1 fL (80-94); Mean Platelet Vol. 11.2 fl (6.2-12.0); Monocyte# 0.45 X10^3/uL; Monocyte% 10.6 % (0-10); NRBC Flagged by Analyzer 0 % (0-5); Neutrophil # 2.74 X10^3/uL (2.7-7.7); Neutrophil % 64.8 % (47-70); Platelet Count 139 K/mm3 (150-450); RBC Distribution Width CV 15.6 % (11.6-14.6); RBC Distribution Width SD 58.2 fl (35.1-43.9); Red Blood Count 2.87 M/mm3 (4.6-6.2); White Blood Count 4.2 K/mm3 (4.4-11.0)
[2022-09-05 04:45] LABS: Anion Gap 9 (5-15); BUN 40 mg/dL (7-18); BUN/Creat Ratio 21.7 RATIO (10-20); Calcium,Total 8.9 mg/dL (8.5-10.1); Chloride 114 mmol/L (98-107); Creatinine, Serum 1.84 mg/dL (0.70-1.30); EST Glomerular Filtration Rate 37 mL/min (>60); Est Glom Filt Rate - Afr Amer 45 mL/min (>60); Estimated Creatinine Clearance 28.98 ml/min; Glucose 108 mg/dL (74-106); Magnesium 1.9 mg/dL (1.6-2.6); Potassium 3.7 mmol/L (3.5-5.1); Sodium Level 143 mmol/L (136-145); Troponin-I HS 36 pg/mL (3.0-78.0)
[2022-09-05 06:41] LABS: Troponin-I HS 34 pg/mL (3.0-78.0)
== END 2022-09-05 06:56 | disposition home or self-care (01) ==
PROVIDERS: Emergency Provider Emergency Medicine; PCP Internal Medicine; Visit Provider Emergency Medicine
DX: R07.9 Chest pain, unspecified (principal); I50.9 Heart failure, unspecified; I48.91 Unspecified atrial fibrillation; I25.10 Atherosclerotic heart disease of native coronary artery without angina pectoris; N28.9 Disorder of kidney and ureter, unspecified; R10.9 Unspecified abdominal pain; Z95.0 Presence of cardiac pacemaker; Z79.01 Long term (current) use of anticoagulants; I25.5 Ischemic cardiomyopathy
CPT/HCPCS: 36415; 71045; 80048; 83735; 84484; 85025; 93005; 99284; A4216

== ENCOUNTER → 2022-11-20 | Outpatient (CLI) | payer MEDICARE, OTHER, SELFPAY ==
[2022-11-20 11:01] LABS: Absolute Lymphocyte Count 0.84 X10^3/uL (0.83-4.51); Absolute Neutrophil Count 2.6 X10^3/uL (2.0-7.7); Basophil# 0.04 X10^3/uL; Eosinophil# 0.27 X10^3/uL; Eosinophils% 6.6 % (0-5); Hematocrit 29.8 % (40-54); Hemoglobin 9.7 g/dL (13.0-16.5); Lymphocyte # 0.84 X10^3/ul (0.83-4.51); Lymphocyte % 20.4 % (19-41); Mean Corp Hgb Conc 32.6 g/dL (32-36); Mean Corpuscular Hgb 34.2 pg (27.0-32.0); Mean Corpuscular Volume 104.9 fL (80-94); Mean Platelet Vol. 10.8 fl (6.2-12.0); Monocyte# 0.32 X10^3/uL; Monocyte% 7.8 % (0-10); NRBC Flagged by Analyzer 0 % (0-5); Neutrophil # 2.63 X10^3/uL (2.7-7.7); Platelet Count 153 K/mm3 (150-450); RBC Distribution Width CV 15.9 % (11.6-14.6); RBC Distribution Width SD 60.8 fl (35.1-43.9); Red Blood Count 2.84 M/mm3 (4.6-6.2); White Blood Count 4.1 K/mm3 (4.4-11.0)
[2022-11-20 11:33] LABS: ALB/GLOB Ratio 1.1 RATIO (0.9-2.4); AST(SGOT) 25 U/L (15-37); Alanine Aminotransfer ALT/SGPT 27 U/L (16-61); Albumin, Serum 3.7 g/dL (3.2-5.0); Alkaline Phosphatase 92 U/L (45-117); Anion Gap 10 (5-15); BUN 48 mg/dL (7-18); BUN/Creat Ratio 20.3 RATIO (10-20); CRP 7.36 mg/L (0.0-3.0); Calcium,Total 8.9 mg/dL (8.5-10.1); Chloride 109 mmol/L (98-107); Creatinine, Serum 2.36 mg/dL (0.70-1.30); EST Glomerular Filtration Rate 28 mL/min (>60); Est Glom Filt Rate - Afr Amer 34 mL/min (>60); Ferritin 80 ng/mL (26-388); Globulin 3.5 g/dL (2.2-4.2); Glucose 96 mg/dL (74-106); Iron 60 ug/dL (65-175); Iron Binding Capacity,Total 330 ug/dL (250-450); PERCENT IRON SATURATION 18.2 % (15.0-55.0); Potassium 2.6 mmol/L (3.5-5.1); Protein, Total 7.2 g/dL (6.4-8.2); Sodium Level 145 mmol/L (136-145)
[2022-11-20 11:34] LABS: BNP,B-Type NATRIURETIC PEPTIDE > 5000.0 pg/mL (0-100)
[2022-11-20 12:10] LABS: Erythrocyte Sedimentation Rate 5 mm/hr (0-20)
[2022-11-23 08:07] LABS: Endomysial Antibody IgA Negative (Negative)
[2022-11-23 10:08] LABS: Immunoglobulin A 229 mg/dL (61-437); t-Transglutaminase IgA <2 U/mL (0-3)
[2022-11-23 20:54] LABS: Calprotectin, Stool 136 ug/g (0-120)
== END | disposition home or self-care (01) ==
PROVIDERS: Nurse Practitioner Adult Health; PCP Internal Medicine; Referring Provider Nurse Practitioner Family; Visit Provider Nurse Practitioner Family
DX: I51.89 Other ill-defined heart diseases (principal); I49.5 Sick sinus syndrome; I61.9 Nontraumatic intracerebral hemorrhage, unspecified; I25.5 Ischemic cardiomyopathy; R19.7 Diarrhea, unspecified; D64.9 Anemia, unspecified; K58.9 Irritable bowel syndrome, unspecified
CPT/HCPCS: 36415; 80053; 82728; 82784; 83516; 83540; 83550; 83630; 83880; 83993; 85025; 85652; 86140; 86255

== ENCOUNTER → 2022-11-26 | Outpatient (CLI) | payer MEDICARE, OTHER, SELFPAY ==
[2022-11-26 12:17] LABS: Anion Gap 8 (5-15); BUN 50 mg/dL (7-18); BUN/Creat Ratio 18.6 RATIO (10-20); Calcium,Total 9.4 mg/dL (8.5-10.1); Chloride 109 mmol/L (98-107); Creatinine, Serum 2.69 mg/dL (0.70-1.30); EST Glomerular Filtration Rate 24 mL/min (>60); Est Glom Filt Rate - Afr Amer 29 mL/min (>60); Glucose 93 mg/dL (74-106); Potassium 3.2 mmol/L (3.5-5.1); Sodium Level 144 mmol/L (136-145)
[2022-12-03 02:07] LABS: Clam <0.10 kU/L (Class 0); Codfish <0.10 kU/L (Class 0); Corn <0.10 kU/L (Class 0); Egg, White <0.10 kU/L (Class 0); Milk (Cow) 0.72 kU/L (Class II); Peanut <0.10 kU/L (Class 0); SCALLOP <0.10 kU/L (Class 0); Shrimp 0.14 kU/L (Class 0/I); Soybean 0.11 kU/L (Class 0/I); Walnut, (Food) <0.10 kU/L (Class 0); Wheat <0.10 kU/L (Class 0)
[2022-12-03 20:01] LABS: SESAME SEED <0.10 kU/L (Class 0)
== END | disposition home or self-care (01) ==
LOC: LAB 11:15
PROVIDERS: Nurse Practitioner Adult Health; PCP Internal Medicine; Referring Provider Nurse Practitioner Family; Visit Provider Nurse Practitioner Family
DX: R19.7 Diarrhea, unspecified (principal); I25.5 Ischemic cardiomyopathy; R53.1 Weakness; E87.6 Hypokalemia
CPT/HCPCS: 36415; 80048; 86003

== ENCOUNTER 2023-01-12 13:00 | Outpatient (RCR) | payer MEDICARE, OTHER, SELFPAY ==
--- NOTE | 2022-08-13 14:07 | HP.PTEVAL ---
Patient's Visit Information DARCY COVARRUBIAS is a 87 year old M referred to Physical Therapy by STEVE Rudd with a diagnosis of Lumbar Pain. Date of Evaluation: 08/13/22 Physical Therapist: Ness Villanueva DPT - Visit Plan Frequency: 2x /Week Duration: 4 Weeks Plan: Focus on LE and core strength/stabilization and proprioception with Functional mobility. HEP Given: kitchen sink exercises - Subjective Patient reports that he has OA and its affecting his left hip- in the last couple of years- getting progressively worse. He walks on the TM a few times a week- he is tired a lot so that has become less. Right hip pain- it comes and goes. If he exercises the pain in the hip diminishes. Aggravated by standing to long or sitting to long in his recliner. Its a little stiff when he gets up from sitting. The pain does not radiates. The pain is more stiff and sore. No N/T in the toes. He has been using a cane for a couple of months. He had COVID in April and he was in the hospital for dehydration- that is where all of this started. He has had diarrhea for about 3 months and they have yet to figure out how to get it under control and is now sending him to GI. He hasn't had a fall in over a year. Sleep: not disturbed. Worst: 5/10 Best: 0/10. He is not able to do all of his ADL's- drive but his doesn't let him due to the medications he is taking. He lives in a single story home with handrails to the basement. PMHx/Meds: see list from client technologies analyst in 08/04/22 *Pacemaker* - Objective Posture: Fh, RS can correct but does not maintain. Gait: antalgic- straight cane- decreased stance on the right LE- slow amarilys. Stairs: asc/desc 8 recip with 1 HR and SC- SBA for safety. Balance: see FGA. ROM: WFL. Palpation: not tender. Strength: Ankle: 4+/5, Knee: 4+/5, Hip: 4/5 throughout, Core: fair minus. Flex: HS: moderate, Gastroc: moderate - Balance/Special Test Scores Functional Gait Assessment Score: 14 % Disability: 53.3400 Oswestry Low Back Score: 8 - Goals Goal 1:: Patient will be I with HEP and progression Goal Time Frame: 4-6 Weeks Goal 2:: Patient will ambulate >300 feet with a normalized gait pattern Goal Time Frame: 4-6 Weeks Goal 3:: Patient will demo TUG test 10 sec or under Goal Time Frame: 4-6 Weeks Goal 4:: Patient will increase FGA to within functional limits for his age Goal Time Frame: 4-6 Weeks Goal 5:: Patient will report 80% improvement Goal Time Frame: 4-6 Weeks - Rehabilitation Potential Physical Therapy Diagnosis: Patient presents with hypomobility- he has decreased LE and core strength/stabilization, flex, proprioception. and muscular endurance leading to poor balance and decreased ability to perform ADL's. Rehabilitation Potential: Fair - Anticipated Interventions Patient/Client Instruction: Educate patient on: Benefits of Fitness Program Therapeutic Exercise to Include: Strength training, Endurance training, Balance training, Coordination, Agility training, Body mechanics, Postural training, Flexibilty training, Gait and locomotor training, Neuromotor development, Dynamic Lumbar Stabilization, Scapular Strength/Stabilization For the Purpose of:: To improve muscle performance and motor function TENS: No - TENS Thank you for the opportunity to evaluate your patient. For Medicare and Medicare HMO plans, please review the plan of care and approve it. It will need to be FAXED BACK to us at [phone] for Medicare purposes. For Medicare only, by signing this I certify the plan of care. Please let me know if there are questions or concerns regarding this plan of care. Physician Signature: Date:
--- NOTE | 2022-09-16 14:36 | HP.PTREVAL ---
Enid Marie, INTERACTIVE ART DIRECTOR-C, It has been my pleasure to treat DARCY COVARRUBIAS over the last 9 visits for Lumbar Pain. Please see the progress note below for an update on the physical therapy plan of care! Subjective: Patient reports that he is feeling a little bit stronger and is walking without the cane. He feels that pain is a little bit less. He does the exercises every day in the mornings and he feels that really helps him out. He is able to do all of his ADL's and mowing but he is not back to working in his wood shop. Objective/Function: Posture: FH, RS can correct but does not maintain. Gait: antalgic- less use of straight cane- decreased stance on the right LE. Stairs: asc/desc 8 recip with 1 HR and SC. Balance: see FGA. ROM: WFL. Palpation: not tender. Strength: Ankle: 4+/5, Knee: 4+/5, Hip: 4/5 throughout, Core: fair minus. Flex: HS: moderate, Gastroc: moderate Plan Plan: 09/16/22: Increase standing exercises. 2x6 weeks- functional mobility. Focus on LE and core strength/stabilization and proprioception with Functional mobility. HEP Given: kitchen sink exercises Balance/Gait/Functional tests - Balance/Special Test Scores Functional Gait Assessment Score: 14 % Disability: 53.3400 Oswestry Low Back Score: 13 Tug Test: <20 sec.=mostly independent Goals Goal 1:: Patient will be I with HEP and progression Goal Time Frame: 4-6 Weeks Goal Progress: Progressing Goal 2:: Patient will ambulate >300 feet with a normalized gait pattern Goal Time Frame: 4-6 Weeks Goal Progress: Progressing Goal 3:: Patient will demo TUG test 10 sec or under Goal Time Frame: 4-6 Weeks Goal Progress: Progressing Goal 4:: Patient will increase FGA to within functional limits for his age Goal Time Frame: 4-6 Weeks Goal Progress: Progressing Goal 5:: Patient will report 80% improvement Goal Time Frame: 4-6 Weeks Goal Progress: Progressing Anticipated Interventions Patient/Client Instruction: Educate patient on: Benefits of Fitness Program Therapeutic Exercise to Include: Strength training, Endurance training, Balance training, Coordination, Agility training, Body mechanics, Postural training, Flexibilty training, Gait and locomotor training, Neuromotor development, Dynamic Lumbar Stabilization, Scapular Strength/Stabilization For the Purpose of:: To improve muscle performance and motor function TENS: No - TENS Please do not hesitate to contact me at [phone] by phone or if you have questions or concerns regarding this new plan of care! Sincerely, SAIDA BarreraT
--- NOTE | 2022-11-03 09:53 | HP.PTREVAL ---
Enid Marie, PAPER PATTERN FOLDER-C, It has been my pleasure to treat DARCY COVARRUBIAS over the last 20 visits for Lumbar Pain. Please see the progress note below for an update on the physical therapy plan of care! Subjective: Patient reports that he is a lot better- he is only using his cane when he is out in the community- he carries it more than he uses it. He was out in the shop yesterday- he sold his HUGE machinery and is now using smaller machines. He feels that he is 75% better and he would like to walk better and keep his balance. He feels that he staggers a little bit- and uneven surfaces. Objective/Function: Posture: FH, RS can correct but does not maintain. Gait: no AD- no loss of balance or gait deviations noted Stairs: asc/desc 8 recip with 1 HR. Balance: see FGA. ROM: WFL. Palpation: not tender. Strength: Ankle: 5/5, Knee: 5/5, Hip: 4/5 throughout, Core: fair minus. Flex: HS: moderate, Gastroc: moderate Plan Plan: 11/03/21: 2x4 - first 1-2 weeks focus on I HEP but MORE on balance. 09/16/22: Increase standing exercises. 2x6 weeks- functional mobility. Focus on LE and core strength/stabilization and proprioception with Functional mobility. HEP Given: kitchen sink exercises Balance/Gait/Functional tests - Balance/Special Test Scores Functional Gait Assessment Score: 21 % Disability: 30.0000 Oswestry Low Back Score: 4 Tug Test: <10 sec.=free mobile Goals Goal 1:: Patient will be I with HEP and progression Goal Time Frame: 4-6 Weeks Goal Progress: Progressing Goal 2:: Patient will ambulate >300 feet with a normalized gait pattern Goal Time Frame: 4-6 Weeks Goal Progress: Progressing Goal 3:: Patient will demo TUG test 10 sec or under Goal Time Frame: 4-6 Weeks Goal Progress: Progressing Goal 4:: Patient will increase FGA to within functional limits for his age Goal Time Frame: 4-6 Weeks Goal Progress: Progressing Goal 5:: Patient will report 80% improvement Goal Time Frame: 4-6 Weeks Goal Progress: Progressing Anticipated Interventions Patient/Client Instruction: Educate patient on: Benefits of Fitness Program Therapeutic Exercise to Include: Strength training, Endurance training, Balance training, Coordination, Agility training, Body mechanics, Postural training, Flexibilty training, Gait and locomotor training, Neuromotor development, Dynamic Lumbar Stabilization, Scapular Strength/Stabilization For the Purpose of:: To improve muscle performance and motor function TENS: No - TENS Please do not hesitate to contact me at [phone] by phone or if you have questions or concerns regarding this new plan of care! Sincerely, SAIDA BarreraT
--- NOTE | 2023-01-12 13:15 | HP.PTDCSUM ---
It has been my pleasure to treat DARCY COVARRUBIAS referred by STEVE Rudd, with the diagnosis of Lumbar Pain for a total of 36 visit(s). Discharge Date: Please see the following information for a summary of their discharge status. Subjective: Patient reports that she is doing a great job. He is not using his cane any more. He feels that he is 80% better. He is back in his shop. He is compliant with his exercise program. His is also very happy with his progress. R hip Pain Intensity (Out of 10): 0 Low back Pain Intensity (Out of 10): 3 % Improvement: 80 Objective/Function: Posture: fair throughout. Gait: no AD- no loss of balance or gait deviations noted Stairs: asc/desc 8 recip with 1 HR. Balance: see FGA. ROM: WFL. Palpation: not tender. Strength: Ankle: 5/5, Knee: 5/5, Hip: 4+/5 throughout, Core: fair minus. Flex: HS: moderate, Gastroc: moderate Goal 1:: Patient will be I with HEP and progression Goal Progress: Progressing Goal 2:: Patient will ambulate >300 feet with a normalized gait pattern Goal Progress: Progressing Goal 3:: Patient will demo TUG test 10 sec or under Goal Progress: Goal Met Goal 4:: Patient will increase FGA to within functional limits for his age Goal Progress: Goal Met Goal 5:: Patient will report 80% improvement Goal Progress: Goal Met Plan: 01/12/23: Discharge to I HEP. 12/08/22: 2x4 - first 1-2 weeks focus on I HEP but MORE on balance outside of the // bars- uneven surfaces. 09/16/22: Increase standing exercises. 2x6 weeks- functional mobility. Focus on LE and core strength/stabilization and proprioception with Functional mobility. If there are questions or concerns regarding this patient's physical therapy, please feel free to call me at [phone]. Thank you for the referral of this patient. Sincerely, Ness Villanueva, DPT Balance/Gait/Functional tests - Balance/Special Test Scores Functional Gait Assessment Score: 25 % Disability: 16.6700 Oswestry Low Back Score: 4 Tug Test: <10 sec.=free mobile
== END 2023-01-12 15:01 | disposition home or self-care (01) ==
LOC: PT 13:00
PROVIDERS: PCP Internal Medicine; Referring Provider Nurse Practitioner; Visit Provider Nurse Practitioner
DX: M48.062 Spinal stenosis, lumbar region with neurogenic claudication (principal); M47.26 Other spondylosis with radiculopathy, lumbar region
CPT/HCPCS: 97110; 97140; 97162; 97164

== ENCOUNTER → 2023-07-08 | Outpatient (CLI) | payer MEDICARE, OTHER, SELFPAY ==
[2023-07-08 12:33] LABS: Anion Gap 5 (5-15); BUN 46 mg/dL (7-18); BUN/Creat Ratio 19.3 RATIO (10-20); Calcium,Total 9.3 mg/dL (8.5-10.1); Chloride 110 mmol/L (98-107); Creatinine, Serum 2.38 mg/dL (0.70-1.30); EST Glomerular Filtration Rate 28 mL/min (>60); Est Glom Filt Rate - Afr Amer 33 mL/min (>60); Glucose 98 mg/dL (74-106); Potassium 3.8 mmol/L (3.5-5.1); Sodium Level 140 mmol/L (136-145)
[2023-07-08 12:43] LABS: AST(SGOT) 15 U/L (15-37); Alanine Aminotransfer ALT/SGPT 30 U/L (16-61); Alkaline Phosphatase 112 U/L (45-117); Bilirubin, Direct 0.28 mg/dL (0.00-0.30); Cholesterol 90 mg/dL (200); Globulin 3.6 g/dL (2.2-4.2); High Density Lipoprotein 35 mg/dL; Protein, Total 7.6 g/dL (6.4-8.2); Triglycerides 58 mg/dL; Very Low Density Lipoprotein 12 mg/dL (5-40)
== END | disposition home or self-care (01) ==
LOC: MTLAB 10:28
PROVIDERS: Nurse Practitioner Family; PCP Family Medicine; Visit Provider Nurse Practitioner Gerontology
DX: E87.6 Hypokalemia (principal); I25.5 Ischemic cardiomyopathy; E78.5 Hyperlipidemia, unspecified
CPT/HCPCS: 36415; 80048; 80061; 80076

== ENCOUNTER → 2023-08-19 | Outpatient (CLI) | payer MEDICARE, OTHER, SELFPAY ==
[2023-08-19 12:20] LABS: Hematocrit 29.7 % (40-54); Hemoglobin 9.6 g/dL (13.0-16.5); Mean Corp Hgb Conc 32.3 g/dL (32-36); Mean Corpuscular Hgb 34.2 pg (27.0-32.0); Mean Corpuscular Volume 105.7 fL (80-94); Mean Platelet Vol. 10.7 fl (6.2-12.0); Platelet Count 150 K/mm3 (150-450); RBC Distribution Width CV 14.9 % (11.6-14.6); RBC Distribution Width SD 57.9 fl (35.1-43.9); Red Blood Count 2.81 M/mm3 (4.6-6.2); White Blood Count 4.6 K/mm3 (4.4-11.0)
[2023-08-19 13:06] LABS: PTHIN 172.1 pg/mL (18.4-80.1)
[2023-08-19 13:39] LABS: Albumin, Serum 3.8 g/dL (3.2-5.0); BUN 53 mg/dL (7-18); BUN/Creat Ratio 24.1 RATIO (10-20); Calcium,Total 9.2 mg/dL (8.5-10.1); Chloride 113 mmol/L (98-107); EST Glomerular Filtration Rate 30 mL/min (>60); Est Glom Filt Rate - Afr Amer 37 mL/min (>60); Ferritin 85 ng/mL (26-388); Glucose 99 mg/dL (74-106); Iron 75 ug/dL (65-175); Iron Binding Capacity,Total 302 ug/dL (250-450); PERCENT IRON SATURATION 24.8 % (15.0-55.0); Phosphorus 3.3 mg/dL (2.5-4.9); Potassium 3.2 mmol/L (3.5-5.1); Sodium Level 144 mmol/L (136-145)
== END | disposition home or self-care (01) ==
LOC: MTLAB 09:47
PROVIDERS: PCP Family Medicine; Referring Provider Internal Medicine Nephrology; Visit Provider Internal Medicine Nephrology
DX: N18.4 Chronic kidney disease, stage 4 (severe) (principal); D63.8 Anemia in other chronic diseases classified elsewhere
CPT/HCPCS: 36415; 80069; 82728; 83540; 83550; 83970; 85027

== ENCOUNTER 2023-09-19 03:49 | Inpatient (IN) | payer MEDICARE, OTHER, SELFPAY ==
[2023-09-19] VITALS (12 sets, daily range): BP systolic 104–138; BP diastolic 57–92; PULSE 59–83; RESP 20–30; TEMP 35.7–36.6; O2SAT 89–96; BMI 24.1; BMI 21.8
--- NOTE | 2023-09-19 03:58 | EKG12_ITS ---
Test Reason : CP Blood Pressure : / mmHG Vent. Rate : 079 BPM Atrial Rate : 080 BPM P-R Int : 000 ms QRS Dur : 180 ms QT Int : 524 ms P-R-T Axes : 000 -60 106 degrees QTc Int : 600 ms Ventricular-paced rhythm Abnormal ECG Confirmed by MYRON MENSAH, MAYURI ([id number]), health editor SHANELL HUFFMAN ([id number]) on 09/20/2023 12:12:42 PM Referred By: BB Confirmed By:MAYURI SANCHES MD
--- NOTE | 2023-09-19 04:00 | EDS_ITS ---
HPI History of Present Illness Chief Complaint: Chest Pain Informant: patient and spouse/S.O. Narrative Narrative: Patient presents around 4 AM for left-sided nonpleuritic chest pressure that started about 2 hours ago, waking him up. He states his discomfort has been mild. He initially states that he has been short of breath, but this has been a longstanding symptom associated with a nasal problem that feels no different or worse now that he has chest discomfort. He has chronic leg edema since having his CABG 8 years ago, and states that is no different than usual, he had vein harvesting from the left lower extremity for his bypass and so his left leg is always more swollen than the right. [facility] Medical History Acute electrocardiogram changes Atherosclerosis of [place] coronary artery of [place] heart without angina pectoris Brain bleed Carotid artery disease Chronic kidney disease (CKD) Congestive heart failure COVID-19 GERD (gastroesophageal reflux disease) Paroxysmal atrial fibrillation Home Medications allopurinol 100 mg tablet 100 mg PO BID Gout 11/24/18 [History Last Taken 05/07/22] atorvastatin 40 mg tablet 40 mg PO QHS Cholesterol 11/24/18 [History Last Taken 05/06/22] pyridoxine (vitamin B6) 100 mg tablet 100 mg PO DAILY supplement 11/24/18 [H istory Last Taken 05/07/22] albuterol sulfate 90 mcg/actuation aerosol inhaler 2 puff inhalation Q4H PRN shortness of breath or wheezing #8.5 grams 12/25/20 [Rx Last Taken Unknown] ascorbate calcium (vitamin C) 500 mg tablet 500 mg PO DAILY supplement 12/25/20 [History Last Taken 05/07/22] mecobalamin (vitamin B12) 1,000 mcg disintegrating tablet,sublingual 1,000 mcg sublingual DAILY supplement 12/25/20 [History Last Taken 05/07/22] cholecalciferol (vitamin D3) 50 mcg (2,000 unit) tablet 50 mcg PO DAILY #1 TAB 03/09/22 [Rx Last Taken 05/07/22] coenzyme Q10 100 mg tablet 100 mg PO DAILY 09/24/22 [History Last Taken Unknown] magnesium oxide 400 mg PO DAILY 09/24/22 [History Last Taken Unknown] torsemide 20 mg tablet 20 mg PO .COMPLEX edema 11/19/22 [History Last Taken Unknown] apixaban 2.5 mg tablet 2.5 mg PO BID Blood thinner #180 tabs 03/10/23 [Rx Last Taken Unknown] sacubitril 49 mg-valsartan 51 mg tablet (Entresto) 1 tab PO BID heart failure #180 tabs 06/10/23 [Rx Last Taken Unknown] carvedilol 12.5 mg tablet 25 mg (2 x 12.5 mg) PO BID HTN #180 tabs 06/30/23 [Rx Last Taken Unknown] potassium chloride 20 mEq tablet,extended release 20 meq PO DAILY Hypokalemia 06/30/23 [History Last Taken Unknown] sodium bicarbonate 325 mg tablet 650 mg PO DAILY 06/30/23 [History Last Taken Unknown] nitroglycerin 0.4 mg sublingual tablet 0.4 mg sublingual Q5M PRN Cardiac/Chest Pain #30 tabs 09/02/23 [Rx Last Taken Unknown] Allergy/AdvReac Type Severity Reaction Status Date / Time No Known Allergies Allergy Verified 06/30/23 15:07 Family History Father CAD (coronary artery disease) Surgical History History of brain surgery History of coronary artery bypass graft x 3 History of craniotomy History of permanent cardiac pacemaker placement Social History Smoking Status: Never smoker alcohol intake: never substance use type: does not use caffeine: No ROS ROS ED Constitutional Constitutional ED: Denies chills or fever(s) Eyes Eyes: Denies change in vision or diplopia ENT ENT ED: Denies rhinorrhea or sore throat Cardiovascular Cardiovascular: Reports chest pain and leg edema; Denies palpitations Respiratory/Chest Respiratory/Chest: Reports as per HPI, cough and dyspnea Gastrointestinal Gastrointestinal: Denies abdominal pain, diarrhea, nausea or vomiting Genitourinary Genitourinary ED: Denies dysuria or hematuria Musculoskeletal Musculoskeletal: Denies back pain or neck pain Integumentary Denies abscess or rash Neurologic Neurologic: Denies headache(s), paresthesias or weakness Psychiatric Psychiatric: Denies anxiety or suicidal thoughts EXAM Physical Exam Const Vital Signs: 09/19/23 03:50 09/19/23 04:00 09/19/23 04:01 Temperature 96.3 F L Temperature Source Temporal Pulse Rate 83 Respiratory Rate 21 H Respiratory Effort Short of Breath Respiratory Pattern Blood Pressure 117/92 H Blood Pressure Mean 100 Pulse Ox 89 Oxygen Delivery Method Room Air Nasal Cannula Oxygen Flow Rate (L/min) 4 09/19/23 04:01 09/19/23 04:14 09/19/23 05:28 Temperature Temperature Source Pulse Rate 61 60 Respiratory Rate 30 H Respiratory Effort Respiratory Pattern Tachypnea Blood Pressure 128/75 H Blood Pressure Mean Pulse Ox 96 Oxygen Delivery Method Nasal Cannula Oxygen Flow Rate (L/min) 4 09/19/23 06:18 Temperature 97.6 F L Temperature Source Pulse Rate 60 Respiratory Rate 24 H Respiratory Effort Respiratory Pattern Blood Pressure 136/70 H Blood Pressure Mean 92 Pulse Ox 94 Oxygen Delivery Method Oxygen Flow Rate (L/min) Positive well nourished and well developed General Appearance ED: well developed and NAD HEENT Reports moist mucous membranes normocephalic and atraumatic Eyes PERRL and EOMs intact bilaterally Neck full ROM and supple Resp normal respiratory effort and clear to auscultation bilaterally Cardio regular rate and regular rhythm GI non-tender and non-distended Auscultation: normoactive bowel sounds Palpation: soft Back/Spine no CVA tenderness General Back: other FROM Extremity normal to inspection General Extremety ED: Yes edema; Negative for pulses abnormal or tenderness General Extremity: edema right lower extremity mild and left lower extremity moderate; Negative for pulses abnormal Neuro oriented x3, CN's II-XII intact bilaterally and no sensory deficits noted Sensorium / Orientation: awake and alert Motor Exam: strength 5/5 throughout Psych mental status grossly normal Skin no rashes or lesions noted and no wounds Heart Score History: Moderately Suspicious ECG: Nonspecific Repolarization Age: >/= 65 years Risk Factors: >/= 3 Risk Factors or History of CAD Score: 6 MDM MDM MDM Narrative Medical decision making narrative: Patient has a history according to chart review of ischemic cardiomyopathy, last year his last echo showed an ejection fraction of 20%. He has a pacemaker EKG shows that is pacing appropriately, he has a history of underlying atrial fibrillation for which she is on apixaban. Therefore aspirin was held and he was given nitroglycerin paste while we performed more of a workup here including chest x-ray and labs and troponin. He said the pain was almost gone when he got the nitroglycerin paste, on reevaluation it is completely gone, his blood pressures in the 120s, I removed the pacing and remained stable without developing more chest discomfort. He is a white blood count that is relatively low, but his chest x-ray 1 view on my interpretation shows some airspace disease bilaterally that may or may not be infectious. Radiology report reviewed they are in agreement. He states he has had a new cough. He was 88% on room air when he first arrived, nurses put him on 4 L of oxygen, which made him 96%. He states he is feeling a little short of breath/wheezing when I reevaluated him so we gave him an albuterol treatment. Subsequently we removed his oxygen, and he quickly desatted down to 88% on room air at rest given this, we will treat him for pneumonia and admit him to the hospital. We confirmed he does not have oxygen at home for any reason. Second troponin measurement actually came back lower than the initial measurement, therefore hospitalist then I determined he does not need to be admitted to monitored bed since he is unlikely having acute unstable angina. Lab Data Attestation: I reviewed the patient's lab results. Labs: Laboratory Results - last 24 hr 09/19/23 09/19/23 04:00 05:55 WBC 4.2 L RBC 2.95 L Hgb 9.9 L Hct 31.5 L MCV 106.8 H MCH 33.6 H MCHC 31.4 L RDW Std Deviation 59.6 H RDW Coeff of [place]anes[place] 15.4 H Plt Count 134 L MPV 10.4 Immature Gran % (Auto) 0.200 Neut % (Auto) 61.4 Lymph % (Auto) 22.4 [place] % (Auto) 8.0 Eos % (Auto) 7.1 H Baso % (Auto) 0.9 Absolute Neuts (auto) 2.6 Absolute Lymphs (auto) 0.95 Nucleated RBC % 0 Sodium 141 Potassium 3.4 L Chloride 111 H Carbon Dioxide 23.0 Anion Gap 7 BUN 40 H Creatinine 2.07 H Estim Creat Clear Calc 25.96 Est GFR (MDRD) Af Amer 39 L Est GFR (MDRD) Non-Af 32 L BUN/Creatinine Ratio 19.3 Glucose 117 H Calcium 8.8 Troponin I High Sens 45 39 Radiography Diagnostic Testing: Clinical Impression(s) from Imaging Studies Chest X-Ray 09/19/23 04:20 IMPRESSION: Bilateral airspace disease greater on the right, and right pleural effusion. Findings may be consistent with pneumonia and or asymmetric edema. Electronically Signed: Kelley Celeste MD at 4:38 EST , Rhythm Strip Rhythm Strip: paced Rate: 80 Ectopy: None EKG Initial EKG: Attestation: I personally reviewed and interpreted this EKG as follows: Interpretation: No Acute Injury Pattern and Paced Management Discussion w/another healthcare provider: Hospitalist Discharge Plan Dx/Rx/DC Orders Clinical Impression: Pneumonia of both lower lobes, Ischemic cardiomyopathy, Hypoxemia, Chest pain Disposition Disposition: Acute Care Hospital [facility]
[2023-09-19 04:05] LABS: Absolute Lymphocyte Count 0.95 X10^3/uL (0.83-4.51); Absolute Neutrophil Count 2.6 X10^3/uL (2.0-7.7); Basophil# 0.04 X10^3/uL; Basophil% 0.9 % (0-1); Eosinophils% 7.1 % (0-5); Hematocrit 31.5 % (40-54); Hemoglobin 9.9 g/dL (13.0-16.5); Lymphocyte # 0.95 X10^3/ul (0.83-4.51); Lymphocyte % 22.4 % (19-41); Mean Corp Hgb Conc 31.4 g/dL (32-36); Mean Corpuscular Hgb 33.6 pg (27.0-32.0); Mean Corpuscular Volume 106.8 fL (80-94); Mean Platelet Vol. 10.4 fl (6.2-12.0); Monocyte# 0.34 X10^3/uL; NRBC Flagged by Analyzer 0 % (0-5); Neutrophil % 61.4 % (47-70); Platelet Count 134 K/mm3 (150-450); RBC Distribution Width CV 15.4 % (11.6-14.6); RBC Distribution Width SD 59.6 fl (35.1-43.9); Red Blood Count 2.95 M/mm3 (4.6-6.2); White Blood Count 4.2 K/mm3 (4.4-11.0)
[2023-09-19] MEDS: Nitroglycerin Oint 1 INCH PACKET TD (04:14)
--- NOTE | 2023-09-19 04:20 | RAD_ITS ---
INDICATION: chest pain EXAMINATION/TECHNIQUE: X-RAY - XR Chest 1 View AP portable. 4:18 AM COMPARISON: 09/05/2022 FINDINGS: LINES/DEVICES: Pacemaker leads unchanged. LUNGS: Consolidation at the right lung base with small right pleural effusion. Patchy opacity in the left perihilar region and left lung base. Likely minimal left pleural effusion. No pneumothorax. MEDIASTINUM: Aorta is atherosclerotic. CARDIAC SILHOUETTE: Enlarged. Stable size. Sternal wires. BONES AND SOFT TISSUES: No acute abnormalities. RAD/Chest 1 View (Portable) IMPRESSION: Bilateral airspace disease greater on the right, and right pleural effusion. Findings may be consistent with pneumonia and or asymmetric edema. Electronically Signed: Kelley Celeste MD at 4:38 EST ,
[2023-09-19 04:24] LABS: Anion Gap 7 (5-15); BUN 40 mg/dL (7-18); BUN/Creat Ratio 19.3 RATIO (10-20); Calcium,Total 8.8 mg/dL (8.5-10.1); Chloride 111 mmol/L (98-107); Creatinine, Serum 2.07 mg/dL (0.70-1.30); EST Glomerular Filtration Rate 32 mL/min (>60); Est Glom Filt Rate - Afr Amer 39 mL/min (>60); Estimated Creatinine Clearance 25.96 ml/min; Glucose 117 mg/dL (74-106); Potassium 3.4 mmol/L (3.5-5.1); Sodium Level 141 mmol/L (136-145); Troponin-I HS (w/2H Reflex) 45 pg/mL (3.0-78.0)
[2023-09-19] MEDS: Albuterol 2.5 MG/3 ML VIAL.NEB. INHALATION ×2 (05:26→15:03)
--- NOTE | 2023-09-19 05:41 | ED.RN ---
PT GOT A BREATHING TREATMENT, OXYGEN WAS TAKEN OFF TO SEE A RA POX, AND HE DROPPED TO 88% ON RA.
[2023-09-19] MEDS: Ceftriaxone 1 GM/50 ML BAG IV (05:53)
[2023-09-19 06:03] LABS: Reflex Troponin-HS? (from REC) Y
--- NOTE | 2023-09-19 06:23 | HP.PCM.HOS_ITS ---
[facility] - General General Date of Admission: 09/19/23 Date of Service: 09/19/23 Chief Complaint: Chest pain, cough and shortness of breath. HPI Narrative DARCY COVARRUBIAS, is a 88 M with a past medical history of essential hypertension, hyperlipidemia, history of coronary artery disease; status post CABG x 3 (~2014), sick sinus syndrome; status post PPM, history of ischemic cardiomyopathy, history of chronic diastolic CHF; with preserved left v entricular ejection fraction, paroxysmal atrial fibrillation; on apixaban and Coreg, history of hemorrhagic CVA; status post craniotomy and evacuation (2019), history of asthma, chronic kidney disease; stage III-b, chronic anemia, history of COVID-19, chronic lower extremity edema (left greater than right after he had vein harvesting from the left lower extremity for his bypass), chronic gout, GERD and osteoarthritis who presents to [facility] ER complaining of chest pain, cough and shortness of breath. Mr. Covarrubias reports his symptoms began approximately 1 day prior to admission with a gradual onset of dyspnea on exertion that progressed to shortness of breath at rest with an increasingly frequent and nonproductive cough with malaise and fatigue. Then at 4 AM on 09/19/2023 he developed left-sided chest pain at rest that woke him up from sleep with pain that was mild, pressure-like and nonradiating with nothing making the pain better or worse. He also admits to wheezing and decreased appetite for the past 24 hours. He denies any history of tobacco abuse. In the ER his x-ray was noted to be positive for evidence of bilateral infiltrates consistent with suspected community-acquired pneumonia complicated by clinical and presence of acute exacerbation of asthma with acute hypoxic respiratory insufficiency and chest pain and he was then admitted to the general medical floor for ongoing care for status expected to be greater than 48 hours. [facility] Medical History Acute electrocardiogram changes Atherosclerosis of [place] coronary artery of [place] heart without angina pectoris Brain bleed Carotid artery disease Chronic kidney disease (CKD) Congestive heart failure COVID-19 GERD (gastroesophageal reflux disease) Paroxysmal atrial fibrillation Home Medications allopurinol 100 mg tablet 100 mg PO BID Gout 11/24/18 [History Last Taken 05/07/22] atorvastatin 40 mg tablet 40 mg PO QHS Cholesterol 11/24/18 [History Last Taken 05/06/22] pyridoxine (vitamin B6) 100 mg tablet 100 mg PO DAILY supplement 11/24/18 [History Last Taken 05/07/22] albuterol sulfate 90 mcg/actuation aerosol inhaler 2 puff inhalation Q4H PRN shortness of breath or wheezing #8.5 grams 12/25/20 [Rx Last Taken Unknown] ascorbate calcium (vitamin C) 500 mg tablet 500 mg PO DAILY supplement 12/25/20 [History Last Taken 05/07/22] mecobalamin (vitamin B12) 1,000 mcg disintegrating tablet,sublingual 1,000 mcg sublingual DAILY supplement 12/25/20 [History Last Taken 05/07/22] cholecalciferol (vitamin D3) 50 mcg (2,000 unit) tablet 50 mcg PO DAILY #1 TAB 03/09/22 [Rx Last Taken 05/07/22] coenzyme Q10 100 mg tablet 100 mg PO DAILY 09/24/22 [History Last Taken Unknown] magnesium oxide 400 mg PO DAILY 09/24/22 [History Last Taken Unknown] torsemide 20 mg tablet 20 mg PO .COMPLEX edema 11/19/22 [History Last Taken Unknown] apixaban 2.5 mg tablet 2.5 mg PO BID Blood thinner #180 tabs 03/10/23 [Rx Last Taken Unknown] sacubitril 49 mg-valsartan 51 mg tablet (Entresto) 1 tab PO BID heart failure #180 tabs 06/10/23 [Rx Last Taken Unknown] carvedilol 12.5 mg tablet 25 mg (2 x 12.5 mg) PO BID HTN #180 tabs 06/30/23 [Rx Last Taken Unknown] potassium chloride 20 mEq tablet,extended release 20 meq PO DAILY Hypokalemia 06/30/23 [History Last Taken Unknown] sodium bicarbonate 325 mg tablet 650 mg PO DAILY 06/30/23 [History Last Taken Unknown] nitroglycerin 0.4 mg sublingual tablet 0.4 mg sublingual Q5M PRN Cardiac/Chest Pain #30 tabs 09/02/23 [Rx Last Taken Unknown] Allergy/AdvReac Type Severity Reaction Status Date / Time No Known Allergies Allergy Verified 06/30/23 15:07 Family History Father CAD (coronary artery disease) Surgical History History of brain surgery History of coronary artery bypass graft x 3 History of craniotomy History of permanent cardiac pacemaker placement Social History Smoking Status: Never smoker alcohol intake: never substance use type: does not use caffeine: No ROS ROS Narrative Review of systems: Constitutional: Patient denies fevers or chills but does admit to generalized fatigue. Eyes: Patient denies visual changes. ENT: Patient denies runny nose or sore throat. Cardiovascular: Patient admits to chest pain with lower extremity edema but denies palpitations. Respiratory: Patient admits to shortness of breath at rest with nonproductive cough with wheezing. Gastrointestinal: Patient denies abdominal pain, nausea, vomiting or diarrhea. Genitourinary: Patient denies dysuria, hematuria or urinary frequency. Musculoskeletal: Patient denies neck pain or back pain. Integumentary: Patient denies abscess or rash. Neurologic: Patient denies headache, paresthesias or focal neurologic deficits. Psychiatric: Patient denies depression or anxiety. Allergic: Patient denies lip swelling, mouth swelling or urticaria. 14 point review of systems otherwise negative except for positives noted above in HPI. Vital Signs Vital Signs Vital Signs: 09/19/23 03:50 09/19/23 04:00 09/19/23 04:01 Temperature 96.3 F L Temperature Source Temporal Pulse Rate 83 Respiratory Rate 21 H Respiratory Effort Short of Breath Respiratory Pattern Blood Pressure 117/92 H Blood Pressure Mean 100 Pulse Ox 89 Oxygen Delivery Method Room Air Nasal Cannula Oxygen Flow Rate (L/min) 4 09/19/23 04:01 09/19/23 04:14 09/19/23 05:28 Temperature Temperature Source Pulse Rate 61 60 Respiratory Rate 30 H Respiratory Effort Respiratory Pattern Tachypnea Blood Pressure 128/75 H Blood Pressure Mean Pulse Ox 96 Oxygen Delivery Method Nasal Cannula Oxygen Flow Rate (L/min) 4 09/19/23 06:18 Temperature 97.6 F L Temperature Source Pulse Rate 60 Respiratory Rate 24 H Respiratory Effort Respiratory Pattern Blood Pressure 136/70 H Blood Pressure Mean 92 Pulse Ox 94 Oxygen Delivery Method Oxygen Flow Rate (L/min) Weight Weight: 168 lb 3.403 oz Body Mass Index (BMI) 24.1 Physical Exam Const alert, oriented x3, average body habitus and well nourished Constitutional Narrative: Mild discomfort noted. General Appearance: cooperative HEENT normocephalic, head/scalp atraumatic, hearing grossly normal bilaterally, moist oral mucous membranes and oropharynx normal Eyes PERRL, EOMs intact bilaterally and conjunctivae normal Neck no lymphadenopathy, supple and no JVD Resp Resp Narrative: Decreased breath sounds throughout with scattered rhonchi and diffuse wheezes. Cardio regular rate and regular rhythm GI normal to inspection, nondistended, normoactive bowel sounds, soft to palpation, non-tender and non-distended Extremity Extremity Narrative: Left greater than right 1-2+ lower extremity edema with no signs of vascular compromise. Skin Skin Narrative: Patient has no evidence of rash at this time. Neuro oriented x3, CN's II-XII intact bilaterally, moves all extremities and no focal motor deficits Sensorium / Orientation: awake, alert, oriented to person, oriented to place and oriented to time Speech: speech normal Motor Exam: strength 5/5 throughout Psych affect normal Results Medical Records Data Attestation: I reviewed the patient's medical records Lab / Micro Data Attestation: I reviewed the patient's lab results. 09/19/23 04:00 09/19/23 04:00 Labs: Laboratory Results - last 24 hr 09/19/23 04:00: WBC 4.2 L, RBC 2.95 L, Hgb 9.9 L, Hct 31.5 L, MCV 106.8 H, MCH 33.6 H, MCHC 31.4 L, RDW Std Deviation 59.6 H, RDW Coeff of Vanesa 15.4 H, Plt Count 134 L, MPV 10.4, Immature Gran % (Auto) 0.200, Neut % (Auto) 61.4, Lymph % (Auto) 22.4, [place] % (Auto) 8.0, Eos % (Auto) 7.1 H, Baso % (Auto) 0.9, Absolute Neuts (auto) 2.6, Absolute Lymphs (auto) 0.95, Nucleated RBC % 0, Sodium 141, Potassium 3.4 L, Chloride 111 H, Carbon Dioxide 23.0, Anion Gap 7, BUN 40 H, Creatinine 2.07 H, Estim Creat Clear Calc 25.96, Est GFR (MDRD) Af Amer 39 L, Est GFR (MDRD) Non-Af 32 L, BUN/Creatinine Ratio 19.3, Glucose 117 H, Calcium 8.8, Troponin I High Sens 45 Rhythm Strip Rhythm Strip: paced Rate: 80 Ectopy: None Imagaing Radiology Impression Chest X-Ray 09/19/23 04:20 IMPRESSION: Bilateral airspace disease greater on the right, and right pleural effusion. Findings may be consistent with pneumonia and or asymmetric edema. Electronically Signed: Kelley Celeste MD at 4:38 EST , Assessment & Plan Assessment/Plan (1) Pneumonia of both lower lobes: QUALIFIERS: Pneumonia type: due to unspecified organism Qualified Code(s): J18.9 - Pneumonia, unspecified organism (2) Hypoxemia: (3) Chest pain: QUALIFIERS: Chest pain type: unspecified Qualified Code(s): R07.9 - Chest pain, unspecified (4) Atherosclerosis of [place] coronary artery of [place] heart without angina pectoris: (5) Kidney disease, chronic, stage III (GFR 30-59 ml/min): QUALIFIERS: Chronic kidney disease stage 3 subtype: stage 3b (GFR 30-44) Qualified Code(s): N18.32 - Chronic kidney disease, stage 3b PLAN: Plan 1. Bilateral pneumonia likely community-acquired in origin with leukopenia of 4.2 present on admission - Admit to general medical floor. Continue IV Rocephin and IV azithromycin began in the ER and await culture and sensitivity data. Give scheduled Mucinex to mobilize secretions. Give Tylenol as needed pain or fever. 2. Acute exacerbation of asthma complicating #1 - Patient will be started on IV Solu-Medrol with scheduled and as needed nebulizers. Patient has never smoked. 3. Acute hypoxic respiratory insufficiency arising from #1 & #2 - Wean supplemental oxygen as tolerated. 4. Chest pain in patient with history of coronary artery disease; status post CABG x 3 (~2015), sick sinus syndrome; status post PPM, history of ischemic cardiomyopathy, history of chronic diastolic CHF; with preserved left ventricular ejection fraction compounding #1 - #3 - Serialize troponin. Check echocardiogram to evaluate left ventricular ejection fraction. Check Lexiscan nuclear stress test to evaluate for ischemia. Give aspirin plus as needed sublingual nitroglycerin. 5. Hypokalemia of 3.4 mmol/L present on admission - Give supplemental potassium and recheck BMP in the a.m. to ensure improvement. 6. 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 Check daily BMP and CBC to ensure continued stability. 7. Paroxysmal atrial fibrillation; on apixaban and Coreg - Continue apixaban but replace Coreg with diltiazem in light of relative contraindication from asthma exacerbation outlined in #2. 8. History of hemorrhagic CVA; status post craniotomy and evacuation (2019) - Stable. 9. History of COVID-19 - Noted. 10. Chronic lower extremity edema (left greater than right after he had vein harvesting from the left lower extremity for his bypass) - Noted. 11. Chronic gout - Resume allopurinol as previous. 12. GERD - Continue PPI. 13. Osteoarthritis - Stable. 14. DVT prophylaxis - Patient is already on apixaban for #7 which will be continued. Total time: Approximately 55 minutes. Charges/Coding Visit Charges Inpatient E&M: 00809 Init Hosp L2
[2023-09-19 06:27] LABS: Troponin-I HS 39 pg/mL (3.0-78.0)
--- NOTE | 2023-09-19 06:30 | NURSING ---
MED SURG RE PNEUMONIA, HYPOXIA, CHEST PAIN
[2023-09-19] MEDS: Azithromycin 500 MG in Dextrose 5%-Water (250mL Bag) 250 ML 250 MG IV (06:36)
[2023-09-19] MEDS: MethylPREDNISolone 125 MG/2 ML Vial 60 MG IV ×2 (09:01→20:21)
--- NOTE | 2023-09-19 09:59 | EKG12_ITS ---
Test Reason : ROUTINE MORNING Blood Pressure : / mmHG Vent. Rate : 060 BPM Atrial Rate : 060 BPM P-R Int : 000 ms QRS Dur : 246 ms QT Int : 604 ms P-R-T Axes : 000 -57 101 degrees QTc Int : 604 ms Ventricular-paced rhythm Abnormal ECG When compared with ECG of 19-SEP-2023 03:52, MANUAL COMPARISON REQUIRED, DATA IS UNCONFIRMED Confirmed by MYRON MENSAH, MAYURI ([id number]), editor in chief SHANELL HUFFMAN ([id number]) on 09/21/2023 7:15:31 AM Referred By: HIMANSHU Confirmed By:MAYURI SANCHES MD
[2023-09-19 10:23] LABS: Troponin-I HS 39 pg/mL (3.0-78.0)
--- NOTE | 2023-09-19 10:39 | PCM.HOSP.N ---
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 Labs, vitals, H&P, plan of management reviewed. Patient was seen and examined. Lungs air entry diminished bilaterally. Bilateral wheezing present. Mild tachypnea. Heart: S1-S2 regular. CABG scar present. Left subclavicular pacemaker. Systolic murmur over right second ICS. Admitted with chest pain and shortness of breath and found to have bilateral pneumonia leukopenia. On IV ceftriaxone and azithromycin. Patient also has anterior/left-sided chest pain mainly on coughing and breathing effort, consistent pleuritic type of chest pain. Patient has history of CABG in 2015 with ischemic cardiomyopathy, sick sinus syndrome, chronic diastolic heart failure preserved EF. 2D echo is ordered. Serial high-sensitivity troponins are negative therefore ACS ruled out. I told the patient and his that if patient is on baseline he can have a stress test but will not recommend during this admission as patient admitted with pneumonia and asthma exacerbation. Patient also had wheezing. Fabricioley on 4 of oxygen.
[2023-09-19] MEDS: guaiFENesin 600 MG Tablet PO ×2 (11:48→20:23)
[2023-09-19] MEDS: Magnesium Chloride 64 MG Delay Rel.Tablet 128 MG PO (11:48)
[2023-09-19] MEDS: dilTIAZem CD 240 MG Capsule PO (11:49)
[2023-09-19] MEDS: Sodium Bicarbonate 650 MG Tablet PO (11:50)
[2023-09-19] MEDS: Cyanocobalamin 500 MCG Tablet 1000 MCG PO (11:52)
[2023-09-19] MEDS: Potassium Chloride Oral Tablet 20 MEQ 40 MEQ PO (11:54)
[2023-09-19] MEDS: APIXABAN 2.5 MG TABLET (WCH) PO (20:22)
[2023-09-19] MEDS: SACUBITRIL/VALSARTAN 49-51 MG TABLET 1 EACH PO (20:24)
[2023-09-19] MEDS: Allopurinol 100 MG Tablet PO (20:24)
[2023-09-19] MEDS: Atorvastatin Calcium 40 MG Tablet PO (20:24)
[2023-09-19] MEDS: 0.9% Saline Lock 10 ML Syringe IV (20:26)
[2023-09-20] VITALS (9 sets, daily range): BP systolic 102–132; BP diastolic 60–70; PULSE 60–68; RESP 18–20; TEMP 36.2–36.7; O2SAT 88–96
[2023-09-20 06:15] LABS: Absolute Neutrophil Count 3.6 X10^3/uL (2.0-7.7); Hematocrit 27.7 % (40-54); Hemoglobin 8.9 g/dL (13.0-16.5); Lymphocyte % 7.7 % (19-41); Mean Corp Hgb Conc 32.1 g/dL (32-36); Mean Corpuscular Hgb 33.7 pg (27.0-32.0); Mean Corpuscular Volume 104.9 fL (80-94); Mean Platelet Vol. 10.2 fl (6.2-12.0); Monocyte# 0.03 X10^3/uL; Monocyte% 0.8 % (0-10); NRBC Flagged by Analyzer 0 % (0-5); Neutrophil # 3.58 X10^3/uL (2.7-7.7); Neutrophil % 91.2 % (47-70); POSITIVE DIFFERENTIAL YES; Platelet Count 133 K/mm3 (150-450); RBC Distribution Width CV 15.2 % (11.6-14.6); RBC Distribution Width SD 57.7 fl (35.1-43.9); Red Blood Count 2.64 M/mm3 (4.6-6.2); White Blood Count 3.9 K/mm3 (4.4-11.0)
[2023-09-20 06:29] LABS: Differential Indicated SCAN CRITERIA MET
[2023-09-20 06:34] LABS: Anion Gap 7 (5-15); BUN 47 mg/dL (7-18); BUN/Creat Ratio 20.2 RATIO (10-20); Calcium,Total 8.6 mg/dL (8.5-10.1); Chloride 113 mmol/L (98-107); Creatinine, Serum 2.33 mg/dL (0.70-1.30); EST Glomerular Filtration Rate 28 mL/min (>60); Est Glom Filt Rate - Afr Amer 34 mL/min (>60); Glucose 199 mg/dL (74-106); Potassium 3.5 mmol/L (3.5-5.1); Sodium Level 141 mmol/L (136-145)
--- NOTE | 2023-09-20 07:04 | EKG12_ITS ---
Test Reason : AM EKG Blood Pressure : / mmHG Vent. Rate : 061 BPM Atrial Rate : 312 BPM P-R Int : 000 ms QRS Dur : 116 ms QT Int : 492 ms P-R-T Axes : 000 -25 -56 degrees QTc Int : 495 ms Ventricular-paced rhythm Abnormal ECG When compared with ECG of 19-SEP-2023 07:21, MANUAL COMPARISON REQUIRED, DATA IS UNCONFIRMED Confirmed by MYRON MENSAH, MAYURI ([id number]), editor school photograph SHANELL HUFFMAN ([id number]) on 09/21/2023 7:15:19 AM Referred By: VASQUES Confirmed By:MAYURI SANCHES MD
[2023-09-20 07:16] LABS: Differential Comment SCANNED
[2023-09-20] MEDS: 0.9% Saline Lock 10 ML Syringe IV ×4 (09:45→23:25)
[2023-09-20] MEDS: Flu Vacc QS2023-24(65YR UP)/PF 240 MCG/0.7 ML Syringe IM (09:45)
[2023-09-20] MEDS: Allopurinol 100 MG Tablet PO ×2 (09:47→23:27)
[2023-09-20] MEDS: APIXABAN 2.5 MG TABLET (WCH) PO ×2 (09:47→23:26)
[2023-09-20] MEDS: Furosemide 40 MG Tablet PO (09:47)
[2023-09-20] MEDS: dilTIAZem CD 240 MG Capsule PO (09:47)
[2023-09-20] MEDS: Sodium Bicarbonate 650 MG Tablet PO (09:47)
[2023-09-20] MEDS: Potassium Chloride Oral Tablet 20 MEQ PO (09:47)
[2023-09-20] MEDS: SACUBITRIL/VALSARTAN 49-51 MG TABLET 1 EACH PO ×2 (09:47→23:26)
[2023-09-20] MEDS: Cyanocobalamin 500 MCG Tablet 1000 MCG PO (09:48)
[2023-09-20] MEDS: Magnesium Chloride 64 MG Delay Rel.Tablet 128 MG PO (09:48)
[2023-09-20] MEDS: Ascorbic Acid 500 MG Tablet PO (09:48)
[2023-09-20] MEDS: Cholecalciferol (VIT D3) 25 MCG TABLET (1,000 UNITS) 50 MCG PO (09:48)
[2023-09-20] MEDS: guaiFENesin 600 MG Tablet PO ×2 (09:48→23:26)
[2023-09-20] MEDS: Ceftriaxone 1 GM/50 ML BAG IV (09:48)
[2023-09-20] MEDS: Pyridoxine HCl 100 MG Tablet PO (09:48)
[2023-09-20] MEDS: MethylPREDNISolone 125 MG/2 ML Vial 60 MG IV ×2 (10:27→23:25)
[2023-09-20] MEDS: Azithromycin 500 MG in Dextrose 5%-Water (250mL Bag) 250 ML 250 MG IV (10:48)
--- NOTE | 2023-09-20 12:10 | CASEMGMT ---
Addendum entered by Nancy Kapadia 09/20/23 16:22: 1400: Call received from [facility]. They are able to accept pt w/SOC slated for . Pt and dtr made aware and this was entered into pt's discharge plan. Original Note: ANA CRISTINA MURPHY Assessment: RN CM to room to meet with patient for initial transition planning/care coordination assessment. RN CM introduced self and role at [facility]. Patient resting in bed w/HOB elevated, alert and oriented. Patient willing to participate in assessment and is able to answer all questions appropriately. Dtr, Henna, @ bedside, and pt agreeable to her being present during assessment. Care providers, pharmacy, and demographics verified. Patient states he has no further needs or concerns at this time. CM to follow for discharge planning needs that may arise. PCP: Cheli Grace Specialists: Wes, developer programmer analyst. Dr Wells, ecology teacher. Dr Salcedo. Dr Yisel Larios, biochemistry technician. Dr Rodriguez-JENNIFER Preferred Pharmacy: [facility] Insurance: [facility], [facility] Prescription Benefit: none. Uses [facility] Living Will/HPOA: yes, Deirdre Brown LNOK: . 4 adult children Living Arrangements: Patient lives with in a single story home with one step and railing to enter the home. Patient states he is independent at home w/ADL's. manages his medications and does home mgnt tasks. They both usually go grocery shopping together. Transportation: self, DME: Patient states he has built in shower chair, raised toilet, cane, walker, and grab bars. Pt does not have home O2 or a pulse ox. Recommended to get a pulse ox. Dtr states this is affordable and she states she will purchase one for pt. Discussed home O2 set up, should pt qualify for home O2 @ discharge and questions answered. Pt denied having preference of DME co, made aware [employer] is affiliated w/[facility], and pt states is agreeable w/[employer]. Pt denies need for further DME at this time. SNF/HHC: Patient denies previous SNF, but states he has had HHC in the past. Patient wishes to discharge home and [facility] like [facility]. He declines wanting list of other HHC options. Call to [facility] and referral made. Order placed for HHC: SN and PT/OT. Pt wishes to return home and states has no concerns with going home at time of discharge. CM?to follow for home oxygen needs and any further discharge planning/needs.? Pt and dtr voice no further concerns/needs at this time.? Advised pt and daughterto ask for?CM?if any further questions/concerns/needs arise.? They voice understanding. Plan: Home w/HHC. Elizabeth AGUILARN RN CM
--- NOTE | 2023-09-20 13:13 | PN_ITS ---
Subjective Subjective Patient seen and examined. He had no active complaints and had an uneventful night. He denies any cough, chest pain, palpitations, dizziness, nausea, vomiting or any other symptoms. Review of systems is otherwise negative. HE was on 5L of oxygen by nasal canula. Cough is not productive. Objective Data Objective Data Vital Signs: Vital Signs Temp Pulse Resp BP Pulse Ox O2 Del Method O2 Flow Rate 98.1 F 60 18 111/65 95 Nasal Cannula 4 09/20/23 09:36 09/20/23 09:36 09/20/23 09:36 09/20/23 09:36 09/20/23 09:36 09/20/23 09:40 09/20/23 09:40 Oxygen Flow Rate (L/min) 4 Oxygen Delivery Method Nasal Cannula Weight: 152 lb 1.903 oz Body Mass Index (BMI) 21.8 Intake & Output: Intake and Output for Last 24 Hours 09/18/23 09/19/23 09/20/23 23:59 23:59 23:59 Intake Total 955 / 955 425 / 425 Balance 955 / 955 425 / 425 Lab / Micro Data 09/20/23 05:32 09/20/23 05:32 Labs: Laboratory Results - last 24 hr 09/20/23 05:32: WBC 3.9 L, RBC 2.64 L, Hgb 8.9 L, Hct 27.7 L, MCV 104.9 H, MCH 33.7 H, MCHC 32.1, RDW Std Deviation 57.7 H, RDW Coeff of Vanesa 15.2 H, Plt Count 133 L, MPV 10.2, Immature Gran % (Auto) 0.300, Neut % (Auto) 91.2 H, Lymph % (Auto) 7.7 L, [place] % (Auto) 0.8, Eos % (Auto) 0.0, Baso % (Auto) 0.0, Absolute Neuts (auto) 3.6, Absolute Lymphs (auto) 0.30 L, Nucleated RBC % 0, Differential Comment SCANNED, Diff Path Review February, Sodium 141, Potassium 3.5, Chloride 113 H, Carbon Dioxide 21.0, Anion Gap 7, BUN 47 H, Creatinine 2.33 H, Estim Creat Clear Calc 21.80, Est GFR (MDRD) Af Amer 34 L, Est GFR (MDRD) Non-Af 28 L, BUN/Creatinine Ratio 20.2 H, Glucose 199 H, Calcium 8.6 Rhythm Strip Rhythm Strip: paced Rate: 80 Ectopy: None Physical Exam Const alert, oriented x3 and no apparent distress General Appearance: cooperative HEENT normocephalic, head/scalp atraumatic, moist oral mucous membranes and oropharynx normal Eyes PERRL and EOMs intact bilaterally Neck no lymphadenopathy, supple and no JVD Lymph Lymphatic: no lymphadenopathy noted and no lymphedema noted Resp Resp Narrative: mildly diminished breath sounds bibasally, no wheezes or crackles. On 5L of oxygen by nasal canula Cardio regular rate, regular rhythm, S1 normal heart sound, S2 normal heart sound and no murmurs GI normal to inspection, nondistended, normoactive bowel sounds, soft to palpation, non-tender and non-distended Extremity normal capillary refill, no clubbing, cyanosis or edema and no calf tenderness Skin General Skin Exam: no breakdown and turgor normal Neuro CN's II-XII intact bilaterally, no focal motor deficits, no sensory deficits not ed and deep tendon reflexes 2+ bilaterally Motor Exam: strength 5/5 throughout Psych thought process normal, cooperative and affect normal Appearance: appropriate Assessment & Plan Assessment/Plan (1) Hypoxemia: (2) Pneumonia of both lower lobes: QUALIFIERS: Pneumonia type: due to unspecified organism Qualified Code(s): J18.9 - Pneumonia, unspecified organism PLAN: Plan #Acute hypoxic respiratory failure due to pneumonia * on IV ceftriaxone and azithromycin * on 6L of oxygen by nasal canula * breathing treatment with bronchodilators. * titrate oxygen to maintain sats >90% * sputum cultures negative * #Acute exacerbation of asthma * on IV solumedrol. Breathing reatment with bronchodilators. Titrate oxygen to maintain sats >90% * #CAD s/p CABG * on aspirin and SL nitroglycerin. * #Hypokalemia: resolved #CKD 3B: Cr is stable at baseline. #Paroxysmal atrial fibrillation: on coreg and elliquis. Coreg stopped and patient started on cardizem #History of hemorrhagic CVA: s/p craniotomy in 2019. Stable. #Chronic gout: on allopurinol #GERD; on PPI #Osteoarthritis: stable DVT prophylaxis: on eliquis. Charges/Coding Visit Charges Inpatient E&M: 60267 Subs Hosp L3
[2023-09-20 14:03] LABS: Pathologist Review Reviewed
[2023-09-20] MEDS: Atorvastatin Calcium 40 MG Tablet PO (23:27)
[2023-09-21] VITALS (9 sets, daily range): BP systolic 104–119; BP diastolic 56–62; PULSE 59–64; RESP 16–22; TEMP 36.3–36.6; O2SAT 93–97
[2023-09-21 07:42] LABS: Absolute Neutrophil Count 6.5 X10^3/uL (2.0-7.7); Hematocrit 28.6 % (40-54); Lymphocyte % 4.3 % (19-41); Mean Corp Hgb Conc 31.5 g/dL (32-36); Mean Corpuscular Hgb 33.7 pg (27.0-32.0); Mean Corpuscular Volume 107.1 fL (80-94); Mean Platelet Vol. 11.1 fl (6.2-12.0); Monocyte# 0.19 X10^3/uL; Monocyte% 2.7 % (0-10); NRBC Flagged by Analyzer 0 % (0-5); Neutrophil # 6.49 X10^3/uL (2.7-7.7); Neutrophil % 92.6 % (47-70); POSITIVE DIFFERENTIAL YES; Platelet Count 144 K/mm3 (150-450); RBC Distribution Width CV 15.5 % (11.6-14.6); RBC Distribution Width SD 59.7 fl (35.1-43.9); Red Blood Count 2.67 M/mm3 (4.6-6.2)
[2023-09-21 07:45] LABS: Differential Indicated SCAN CRITERIA MET
[2023-09-21] MEDS: guaiFENesin 600 MG Tablet PO ×2 (07:58→21:37)
[2023-09-21] MEDS: Magnesium Chloride 64 MG Delay Rel.Tablet 128 MG PO (07:58)
[2023-09-21] MEDS: dilTIAZem CD 240 MG Capsule PO (07:59)
[2023-09-21] MEDS: Pyridoxine HCl 100 MG Tablet PO (08:00)
[2023-09-21] MEDS: Cyanocobalamin 500 MCG Tablet 1000 MCG PO (08:00)
[2023-09-21] MEDS: Allopurinol 100 MG Tablet PO ×2 (08:01→21:37)
[2023-09-21] MEDS: SACUBITRIL/VALSARTAN 49-51 MG TABLET 1 EACH PO ×2 (08:01→21:37)
[2023-09-21] MEDS: Sodium Bicarbonate 650 MG Tablet PO (08:02)
[2023-09-21] MEDS: Ascorbic Acid 500 MG Tablet PO (08:03)
[2023-09-21] MEDS: Cholecalciferol (VIT D3) 25 MCG TABLET (1,000 UNITS) 50 MCG PO (08:03)
[2023-09-21 08:10] LABS: Anion Gap 6 (5-15); BUN 59 mg/dL (7-18); BUN/Creat Ratio 21.6 RATIO (10-20); Calcium,Total 8.8 mg/dL (8.5-10.1); Chloride 111 mmol/L (98-107); Creatinine, Serum 2.73 mg/dL (0.70-1.30); EST Glomerular Filtration Rate 24 mL/min (>60); Est Glom Filt Rate - Afr Amer 29 mL/min (>60); Estimated Creatinine Clearance 18.61 ml/min; Glucose 182 mg/dL (74-106); Sodium Level 140 mmol/L (136-145)
[2023-09-21 08:59] LABS: Differential Comment SCANNED
[2023-09-21] MEDS: 0.9% Saline Lock 10 ML Syringe IV (09:15)
[2023-09-21] MEDS: Ceftriaxone 1 GM/50 ML BAG IV (09:15)
[2023-09-21] MEDS: MethylPREDNISolone 125 MG/2 ML Vial 60 MG IV ×2 (09:16→21:36)
--- NOTE | 2023-09-21 11:11 | CASEMGMT ---
Social Work SW let pt know that his LW/POA not on file, asked him to ask his to bring them in if able. Pt states understanding. JOE Antoine
[2023-09-21] MEDS: Azithromycin 500 MG in Dextrose 5%-Water (250mL Bag) 250 ML 255 MG IV (11:12)
[2023-09-21] MEDS: APIXABAN 2.5 MG TABLET (WCH) PO ×2 (11:40→21:37)
--- NOTE | 2023-09-21 12:31 | PN_ITS ---
Subjective Subjective Patient seen and examined. He had no active complaints today. He said he felt much better. He is down to 2 L of oxygen. Review of systems otherwise negative. He has remained hemodynamically stable. Objective Data Objective Data Vital Signs: Vital Signs Temp Pulse Resp BP Pulse Ox O2 Del Method O2 Flow Rate 97.8 F 64 18 107/60 94 Nasal Cannula 3 09/21/23 07:48 09/21/23 07:48 09/21/23 10:26 09/21/23 07:48 09/21/23 07:48 09/21/23 10:26 09/21/23 11:16 Oxygen Flow Rate (L/min) 3 Oxygen Delivery Method Nasal Cannula Weight: 152 lb 1.903 oz Body Mass Index (BMI) 21.8 Intake & Output: Intake and Output for Last 24 Hours 09/19/23 09/20/23 09/21/23 23:59 23:59 23:59 Intake Total 955 / 955 425 / 425 50 / 50 Balance 955 / 955 425 / 425 50 / 50 Lab / Micro Data 09/21/23 06:20 09/21/23 06:20 Labs: Laboratory Results - last 24 hr 09/20/23 05:32: Diff Path Review Reviewed 09/21/23 06:20: WBC 7.0, RBC 2.67 L, Hgb 9.0 L, Hct 28.6 L, MCV 107.1 H, MCH 33.7 H, MCHC 31.5 L, RDW Std Deviation 59.7 H, RDW Coeff of Vanesa 15.5 H, Plt Count 144 L, MPV 11.1, Immature Gran % (Auto) 0.400, Neut % (Auto) 92.6 H, Lymph % (Auto) 4.3 L, [place] % (Auto) 2.7, Eos % (Auto) 0.0, Baso % (Auto) 0.0, Absolute Neuts (auto) 6.5, Absolute Lymphs (auto) 0.30 L, Nucleated RBC % 0, Differential Comment SCANNED, Sodium 140, Potassium 4.0, Chloride 111 H, Carbon Dioxide 23.0, Anion Gap 6, BUN 59 H, Creatinine 2.73 H, Estim Creat Clear Calc 18.61, Est GFR (MDRD) Af Amer 29 L, Est GFR (MDRD) Non-Af 24 L, BUN/Creatinine Ratio 21.6 H, Glucose 182 H, Calcium 8.8 Rhythm Strip Rhythm Strip: paced Rate: 80 Ectopy: None Physical Exam Const alert, oriented x3, no apparent distress, average body habitus and well nourished General Appearance: cooperative HEENT normocephalic, head/scalp atraumatic, hearing grossly normal bilaterally, moist oral mucous membranes and oropharynx normal Eyes PERRL, EOMs intact bilaterally and conjunctivae normal Neck no lymphadenopathy, supple and no JVD Lymph Lymphatic: no lymphadenopathy noted and no lymphedema noted Resp Resp Narrative: mildly diminished breath sounds bibasally, no wheezes or crackles. On 2L of oxygen by nasal canula Cardio regular rate, regular rhythm, S1 normal heart sound, S2 normal heart sound and no murmurs GI normal to inspection, nondistended, normoactive bowel sounds, soft to palpation, non-tender and non-distended Extremity normal capillary refill, no clubbing, cyanosis or edema and no calf tenderness Skin General Skin Exam: no breakdown and turgor normal Neuro oriented x3, CN's II-XII intact bilaterally, moves all extremities, no focal motor deficits, no sensory deficits noted and deep tendon reflexes 2+ bilaterally Sensorium / Orientation: awake, alert, oriented to person, oriented to place and oriented to time Speech: speech normal Motor Exam: strength 5/5 throughout Psych thought process normal, cooperative and affect normal Appearance: appropriate Assessment & Plan Assessment/Plan (1) Hypoxemia: (2) Pneumonia of both lower lobes: QUALIFIERS: Pneumonia type: due to unspecified organism Qualified Code(s): J18.9 - Pneumonia, unspecified organism PLAN: Plan #Acute hypoxic respiratory failure due to pneumonia * on IV ceftriaxone and azithromycin * now down to 2L by nasal canula * breathing treatment with bronchodilators. * titrate oxygen to maintain sats >90% * sputum cultures negative * #Acute exacerbation of asthma * on IV solumedrol. * Breathing treatment with bronchodilators. Titrate oxygen to maintain sats >90% * #CAD s/p CABG * on aspirin and SL nitroglycerin. * #Hypokalemia: resolved #CKD 3B: Cr is stable at baseline. #Paroxysmal atrial fibrillation: on coreg and elliquis. Coreg stopped and patient started on cardizem due to him having asthma #History of hemorrhagic CVA: s/p craniotomy in 2019. Stable. #Chronic gout: on allopurinol #GERD; on PPI #Osteoarthritis: stable DVT prophylaxis: on eliquis. Disposition: Anticipate patient will be discharged tomorrow if she remains stable. Charges/Coding Visit Charges Inpatient E&M: 17326 Subs Hosp L2
[2023-09-21] MEDS: Atorvastatin Calcium 40 MG Tablet PO (21:37)
[2023-09-22] VITALS (9 sets, daily range): BP systolic 106–119; BP diastolic 50–74; PULSE 59–68; RESP 15–18; TEMP 36.5–37.2; O2SAT 92–96
[2023-09-22] MEDS: Potassium Chloride Oral Tablet 20 MEQ PO (07:50)
[2023-09-22] MEDS: dilTIAZem CD 240 MG Capsule PO (09:12)
[2023-09-22] MEDS: Furosemide 40 MG Tablet PO (09:13)
[2023-09-22] MEDS: APIXABAN 2.5 MG TABLET (WCH) PO (09:13)
[2023-09-22] MEDS: SACUBITRIL/VALSARTAN 49-51 MG TABLET 1 EACH PO (09:13)
[2023-09-22] MEDS: Magnesium Chloride 64 MG Delay Rel.Tablet 128 MG PO (09:13)
[2023-09-22] MEDS: guaiFENesin 600 MG Tablet PO (09:14)
[2023-09-22] MEDS: MethylPREDNISolone 125 MG/2 ML Vial 60 MG IV (09:14)
[2023-09-22] MEDS: Sodium Bicarbonate 650 MG Tablet PO (09:14)
[2023-09-22] MEDS: Cholecalciferol (VIT D3) 25 MCG TABLET (1,000 UNITS) 50 MCG PO (09:14)
[2023-09-22] MEDS: Pyridoxine HCl 100 MG Tablet PO (09:14)
[2023-09-22] MEDS: Allopurinol 100 MG Tablet PO (09:15)
[2023-09-22] MEDS: Ceftriaxone 1 GM/50 ML BAG IV (09:15)
[2023-09-22] MEDS: Ascorbic Acid 500 MG Tablet PO (09:15)
[2023-09-22] MEDS: Cyanocobalamin 500 MCG Tablet 1000 MCG PO (09:15)
[2023-09-22] MEDS: Azithromycin 500 MG in Dextrose 5%-Water (250mL Bag) 250 ML 250 MG IV (10:46)
--- NOTE | 2023-09-22 12:38 | DS.PCM_ITS ---
Providers Date of Admission: 09/19/23 Date of Discharge: 09/22/23 Primary Care Physician: Cheli Grace MD Reason For Visit: BILATERAL PNEUMONIA, ACUTE EXACERBATION OF ASTHMA Diagnosis Discharge Diagnosis (1) Hypoxemia: Status: Acute Code(s): R09.02 - Hypoxemia (2) Pneumonia of both lower lobes: Status: Acute Code(s): J18.9 - Pneumonia, unspecified organism Qualifiers: Pneumonia type: due to unspecified organism Qualified Code(s): J18.9 - Pneumonia, unspecified organism Plan #Acute hypoxic respiratory failure due to pneumonia * on IV ceftriaxone and azithromycin * now down to 2L by nasal canula * breathing treatment with bronchodilators. * titrate oxygen to maintain sats >90% * sputum cultures negative * #Acute exacerbation of asthma * on IV solumedrol. * Breathing treatment with bronchodilators. Titrate oxygen to maintain sats >90% * #CAD s/p CABG * on aspirin and SL nitroglycerin. * #Hypokalemia: resolved #CKD 3B: Cr is stable at baseline. #Paroxysmal atrial fibrillation: on coreg and elliquis. Coreg stopped and patient started on cardizem due to him having asthma #History of hemorrhagic CVA: s/p craniotomy in 2019. Stable. #Chronic gout: on allopurinol #GERD; on PPI #Osteoarthritis: stable DVT prophylaxis: on eliquis. Disposition: Anticipate patient will be discharged tomorrow if she remains stable. Medications at Discharge Home Medications allopurinol 100 mg tablet 100 mg PO BID Gout 11/24/18 atorvastatin 40 mg tablet 40 mg PO QHS Cholesterol 11/24/18 pyridoxine (vitamin B6) 100 mg tablet 100 mg PO DAILY supplement 11/24/18 albuterol sulfate 90 mcg/actuation aerosol inhaler 2 puff inhalation Q4H PRN shortness of breath or wheezing #8.5 grams 12/25/20 ascorbate calcium (vitamin C) 500 mg tablet 500 mg PO DAILY supplement 12/25/20 mecobalamin (vitamin B12) 1,000 mcg disintegrating tablet,sublingual 1,000 mcg sublingual DAILY supplement 12/25/20 cholecalciferol (vitamin D3) 50 mcg (2,000 unit) tablet 50 mcg PO DAILY #1 TAB 03/09/22 coenzyme Q10 100 mg tablet 100 mg PO DAILY 09/24/22 magnesium oxide 400 mg PO DAILY SUPPLEMENT 09/24/22 torsemide 20 mg tablet 20 mg PO .COMPLEX edema 11/19/22 apixaban 2.5 mg tablet 2.5 mg PO BID Blood thinner #180 tabs 03/10/23 sacubitril 49 mg-valsartan 51 mg tablet (Entresto) 1 tab PO BID heart failure #180 tabs 06/10/23 carvedilol 12.5 mg tablet 25 mg (2 x 12.5 mg) PO BID HTN #180 tabs 06/30/23 potassium chloride 20 mEq tablet,extended release 20 meq PO DAILY Hypokalemia 06/30/23 sodium bicarbonate 325 mg tablet 650 mg PO DAILY 06/30/23 nitroglycerin 0.4 mg sublingual tablet 0.4 mg sublingual Q5M PRN Cardiac/Chest Pain #30 tabs 09/02/23 levofloxacin 500 mg tablet 500 mg PO DAILY #5 tabs 09/22/23 Hospital Course Operations None Procedures None Summary of Care Provided Minutes Spent on Discharge: 55 Hospital Course: Patient is an 88-year-old male with past medical history as outlined was admitted through the ED on 09/19/2023 with a complaint of chest pain, cough and shortness of breath. His symptoms are started 1 day prior to admission and gradually worsened. He had an associated frequent nonproductive cough. He also had wheezing and decreased appetite so he came into the ED. Chest x-ray done showed bilateral infiltrates consistent with suspected community-acquired pneumonia. He was admitted and managed for hypoxia due to community-acquired pneumonia. He was started on IV ceftriaxone and azithromycin. Shortness of breath gradually improved and he felt much better. He was weaned down to 2 L of oxygen. He was also placed on Solu-Medrol due to concerns for asthma exacerbation. Sputum cultures were negative. He was discharged home on 09/22/2023. He had walking pulse ox and didnt qualify for home oxygen. He was discharged on PO levofloxacin for a 5 day course. He is to follow up with his PCP within 1-2 weeks. Patient seen and examined prior to discharge. He had no active complaints and had an uneventful night. Review of systems is otherwise negative. Labs and vitals reviewed. Home meds reviewed and reconciled. Physical Exam Const alert, oriented x3, no apparent distress, average body habitus and well nourished Constitutional Narrative: Mild discomfort noted. General Appearance: cooperative, comfortable and well kempt HEENT normocephalic, head/scalp atraumatic, hearing grossly normal bilaterally, moist oral mucous membranes and oropharynx normal Mouth: oral and palatal mucosa normal Eyes PERRL, EOMs intact bilaterally and conjunctivae normal Neck no lymphadenopathy, supple and no JVD Lymph Lymphatic: no lymphadenopathy noted and no lymphedema noted Resp Resp Narrative: mildly diminished breath sounds bibasally, no wheezes or crackles. On 2L of oxygen by nasal canula Cardio regular rate, regular rhythm, S1 normal heart sound, S2 normal heart sound and no murmurs GI normal to inspection, nondistended, normoactive bowel sounds, soft to palpation, non-tender and non-distended Extremity normal capillary refill, no clubbing, cyanosis or edema and no calf tenderness Extremity Narrative: Left greater than right 1-2+ lower extremity edema with no signs of vascular compromise. Skin no rashes or lesions noted General Skin Exam: no breakdown and turgor normal Neuro oriented x3, CN's II-XII intact bilaterally, moves all extremities, no focal motor deficits, no sensory deficits noted and deep tendon reflexes 2+ bilaterally Sensorium / Orientation: awake, alert, oriented to person, oriented to place and oriented to time Speech: speech normal Motor Exam: strength 5/5 throughout Psych thought process normal, cooperative and affect normal Appearance: appropriate Weight / BMI Weight Weight: 152 lb 1.903 oz Body Mass Index (BMI) 21.8 ABG / Lab / Microbiology Data 09/21/23 06:20 09/21/23 06:20 D/C Instructions Discharge Diet: Low fat / Low cholesterol Discharge Activity: Return to Normal Activity Weight Bearing Status: Weight bearing as tolerated Call your doctor if you observe: Fever of 101 or Higher, Shortness of breath, Dizziness, Swelling in the ankles, Chest pain and Increased palpitations (irregular heartbeat) Meaningful Use Info Meaningful Use Diagnoses (Choose all that apply): None applicable Discharge Plan Admission Admit Date/Time: 09/19/23 06:57 Primary Reason for Your Visit: community acquired pneumonia Attending Provider: Yaneli Cortés Primary Care Provider: Cheli Grace Consulting Providers: Mitch Scott; Dav Renteria Instructions Patient Instructions: ED Pneumonia (Adult) Discharge Orders/Prescriptions Prescriptions: New levofloxacin 500 mg tablet 500 mg PO DAILY Qty: 5 0RF Continued mecobalamin (vitamin B12) 1,000 mcg tablet,disintegrating 1,000 mcg SUBLINGUAL DAILY Rx Instructions: place tablet under tongue and allow to dissolve for at least30 secs before swallowing ascorbate calcium (vitamin C) 500 mg tablet 500 mg PO DAILY albuterol sulfate 90 mcg/actuation HFA aerosol inhaler 2 puff INHALATION Q4H PRN (Reason: shortness of breath or wheezing) Qty: 8.5 6RF Rx Instructions: administer with spacer coenzyme Q10 100 mg tablet 100 mg PO DAILY magnesium oxide 400 mg magnesium tablet 400 mg PO DAILY potassium chloride 20 mEq tablet extended release 20 meq PO DAILY Rx Instructions: MWF carvedilol 12.5 mg tablet 25 mg PO BID Qty: 180 3RF atorvastatin 40 MG tablet 40 mg PO QHS allopurinol 100 MG tablet 100 mg PO BID pyridoxine (vitamin B6) 100 MG tablet 100 mg PO DAILY cholecalciferol (vitamin D3) 50 mcg (2,000 unit) tablet 50 mcg PO DAILY Qty: 1 0RF torsemide 20 mg tablet 20 mg PO .COMPLEX Rx Instructions: 20 mg orally Mon, Weds, Fri; apixaban 2.5 mg tablet 2.5 mg PO BID Qty: 180 4RF Entresto 49-51 mg tablet 1 tab PO BID Qty: 180 4RF sodium bicarbonate 325 mg tablet 650 mg PO DAILY nitroglycerin 0.4 mg tablet, sublingual 0.4 mg sublingual Q5M PRN (Reason: Cardiac/Chest Pain) Qty: 30 2RF Referrals / Follow Up: Cheli Grace MD [Primary Care Provider] - 09/24/23 9:20 am Disposition Disposition (needs filled in before D/C Order can be placed): Home Health Service Charges/Coding Visit Charges Inpatient E&M: 98724 Disch Hosp >30min
--- NOTE | 2023-09-22 14:47 | CASEMGMT ---
Pt. has order in for discharge. ANA CRISTINA MURPHY did jose check for his ATB at [facility] and the cost is $13.18. ANA CRISTINA MURPHY in to pt. room to discuss needs at discharge. Pt. denies having any needs at this time. Pt. informed he does not qualify for home oxygen based on his oxygen testing and he voices understanding of this.Pt. informed of the cost for his ATB at [facility] and pt. states this is affordable for him. Pt.'s daughter provides ANA CRISTINA MURPHY with the originals of his HCPOA and Living Will. ANA CRISTINA MURPHY made photo copy of both of these documents and gave them to the floor assistant secretary to be placed in pt's chart. ANA CRISTINA MURPHY then took the originals of both the LW and HCPOA and gave them back to pt's daughter. Pt. and his daughter both deny having any additional questions or need for help at this time.
--- NOTE | 2023-09-22 15:36 | CASEMGMT ---
Swati at [facility] is aware that pt was dc'd today. [facility] to see pt tomorrow.
== END 2023-09-22 15:07 | disposition home health service (06) | DRG 193 ==
LOC: ED 06:27 → MS3 07:01
PROVIDERS: Internal Medicine; Admitting Provider Internal Medicine; Emergency Provider Emergency Medicine; PCP Family Medicine; Visit Provider Student in an Organized Health Care Education/Training Program
DX: J18.9 Pneumonia, unspecified organism (principal); J96.01 Acute respiratory failure with hypoxia; I13.0 Hypertensive heart and chronic kidney disease with heart failure and stage 1 through stage 4 chronic kidney disease, or unspecified chronic kidney disease; J45.901 Unspecified asthma with (acute) exacerbation; I50.32 Chronic diastolic (congestive) heart failure; I49.5 Sick sinus syndrome; N18.32 Chronic kidney disease, stage 3b; I48.0 Paroxysmal atrial fibrillation; K21.9 Gastro-esophageal reflux disease without esophagitis; I25.5 Ischemic cardiomyopathy; E87.6 Hypokalemia; M19.90 Unspecified osteoarthritis, unspecified site; I25.10 Atherosclerotic heart disease of native coronary artery without angina pectoris; M1A.9XX0 Chronic gout, unspecified, without tophus (tophi); Z86.16 Personal history of COVID-19; Z95.0 Presence of cardiac pacemaker; Z79.01 Long term (current) use of anticoagulants; Z86.73 Personal history of transient ischemic attack (TIA), and cerebral infarction without residual deficits; Z95.1 Presence of aortocoronary bypass graft
CPT/HCPCS: 36415; 71045; 80048; 84484; 85025; 93005; 94640; 97162; 97166; 97530; 97535; 99285; 90662; A4216

== ENCOUNTER → 2023-09-24 | Outpatient (CLI) | payer MEDICARE, OTHER, SELFPAY ==
[2023-09-24 12:29] LABS: Absolute Lymphocyte Count 0.38 X10^3/uL (0.83-4.51); Hematocrit 31.5 % (40-54); Hemoglobin 10.3 g/dL (13.0-16.5); Lymphocyte # 0.38 X10^3/ul (0.83-4.51); Lymphocyte % 4.9 % (19-41); Mean Corp Hgb Conc 32.7 g/dL (32-36); Mean Platelet Vol. 10.3 fl (6.2-12.0); Monocyte# 0.38 X10^3/uL; Monocyte% 4.9 % (0-10); NRBC Flagged by Analyzer 0 % (0-5); Neutrophil # 6.95 X10^3/uL (2.7-7.7); Neutrophil % 89.7 % (47-70); POSITIVE DIFFERENTIAL YES; Platelet Count 153 K/mm3 (150-450); RBC Distribution Width CV 15.2 % (11.6-14.6); RBC Distribution Width SD 57.2 fl (35.1-43.9); Red Blood Count 3.03 M/mm3 (4.6-6.2); White Blood Count 7.8 K/mm3 (4.4-11.0)
[2023-09-24 12:30] LABS: Differential Indicated SCAN CRITERIA MET
[2023-09-24 13:07] LABS: ALB/GLOB Ratio 1.1 RATIO (0.9-2.4); AST(SGOT) 30 U/L (15-37); Alanine Aminotransfer ALT/SGPT 50 U/L (16-61); Albumin, Serum 3.3 g/dL (3.2-5.0); Alkaline Phosphatase 82 U/L (45-117); Anion Gap 8 (5-15); BUN 93 mg/dL (7-18); BUN/Creat Ratio 26.8 RATIO (10-20); Calcium,Total 8.5 mg/dL (8.5-10.1); Chloride 110 mmol/L (98-107); Creatinine, Serum 3.47 mg/dL (0.70-1.30); EST Glomerular Filtration Rate 18 mL/min (>60); Est Glom Filt Rate - Afr Amer 22 mL/min (>60); Globulin 3.1 g/dL (2.2-4.2); Glucose 124 mg/dL (74-106); PSA,Total - Annual Screen 0.48 ng/mL (0.00-4.00); Potassium 4.6 mmol/L (3.5-5.1); Protein, Total 6.4 g/dL (6.4-8.2); Sodium Level 136 mmol/L (136-145)
[2023-09-27 17:07] LABS: Erythropoietin 4.5 mIU/mL (2.6-18.5)
== END | disposition home or self-care (01) ==
LOC: MFPLAB 10:31
PROVIDERS: PCP Family Medicine; Visit Provider Family Medicine
DX: R79.89 Other specified abnormal findings of blood chemistry (principal); R35.0 Frequency of micturition; D64.9 Anemia, unspecified; Z12.5 Encounter for screening for malignant neoplasm of prostate
CPT/HCPCS: 36415; 80053; 82668; 84153; 85025; G0103

== ENCOUNTER → 2023-10-07 | Outpatient (CLI) | payer MEDICARE, OTHER, SELFPAY ==
--- NOTE | 2023-10-07 13:00 | CDU_ITS ---
Reason For Study: Other specified symptoms and digns involving the cardiovascular system Rt. Velocities/BP Lt. Velocities/BP Prox CCA 41.3/14.2 cm/sec. Prox CCA 47.4/10.7 cm/sec. Mid CCA 43/9.9 cm/sec. Mid CCA 52.6/17.7 cm/sec. Dist CCA 40.4/9.9 cm/sec. Dist CCA 41.3/14.2 cm/sec. Prox ICA 64.8/22.1 cm/sec. Prox ICA 86.1/32.2 cm/sec. Mid ICA 70/21.2 cm/sec. Mid ICA 90.5/39.9 cm/sec. Dist ICA 76.1/30.8 cm/sec. Dist ICA 54.2/20.1 cm/sec. Rt. ICA/CCA = 1.84. Lt. ICA/CCA = 1.91. Prox ECA 63.1/2.9 cm/sec. Prox ECA 44.7/3.8 cm/sec. Rt. Vert. 34.3/15.1 cm/sec. Lt. Vert. 33.3/17.9 cm/sec. Right Extracranial There is heterogeneous, irregular atherosclerotic plaque noted in the right common carotid artery. There is heterogeneous, irregular atherosclerotic plaque noted in the right internal carotid artery. There is heterogeneous, irregular atherosclerotic plaque noted in the right external carotid artery. Antegrade flow is noted in the right vertebral artery. Left Extracranial There is heterogeneous, irregular atherosclerotic plaque noted in the left common carotid artery. There is heterogeneous, irregular atherosclerotic plaque noted in the left internal carotid artery. There is heterogeneous, irregular atherosclerotic plaque noted in the left external carotid artery. Antegrade flow is noted in the left vertebral artery. Procedure Carotid Duplex [id number]. This is a Carotid Duplex examination using B-mode, color flow and specral Doppler. Exam performed in department. VL/Carotid Duplex Ultrasound Interpretation Summary Irregular calcific plaque with shadowing at the proximal right internal carotid artery with less than 50% stenosis Less than 50% stenosis right external carotid artery Irregular calcific plaque at the proximal left internal carotid artery with les s than 50% stenosis Less than 50% stenosis left external carotid artery Patent antegrade vertebral arteries bilaterally Ordering Physician: Cheli Grace Referring Physician: Cheli Grace Performed By: Teri Calderon RVT
== END | disposition home or self-care (01) ==
LOC: CVS 13:00
PROVIDERS: PCP Family Medicine; Referring Provider Family Medicine; Visit Provider Family Medicine
DX: R09.89 Other specified symptoms and signs involving the circulatory and respiratory systems (principal)
CPT/HCPCS: 93880

== ENCOUNTER 2023-10-17 21:16 | Inpatient (IN) | payer MEDICARE, OTHER, SELFPAY ==
[2023-10-17 21:17] VITALS: BP 129/66; PULSE 76; RESP 18; TEMP 37.1; O2SAT 96; BMI 23.5
--- NOTE | 2023-10-17 22:09 | EX.ED.DYSGE1 ---
HPI History of Present Illness Chief Complaint: Weakness Narrative Narrative: 88-year-old male past medical history of atrial fibrillation, on Eliquis, presents with generalized weakness at 8:50 PM, almost an hour and a half ago. His family states that he was recently released from the hospital at the end of August with pneumonia. He took his antibiotics and has been getting home health care, but they signed off last week. He followed up with his primary care provider who said everything was looking fine. This evening, he went to the bathroom and it was generally weak and could not stand up. EMS reported temperature elevated at 102 ?F although patient denies feeling feverish. He might feel slightly chilled, but they feel this is secondary to his blood thinner. He denies any dysuria or hematuria. No nausea or vomiting, no cough or shortness of breath. PFSH PFSH Medical History Acute electrocardiogram changes Atherosclerosis of [place] coronary artery of [place] heart without angina pectoris Brain bleed Carotid artery disease Chest pain Chronic kidney disease (CKD) Congestive heart failure COVID-19 GERD (gastroesophageal reflux disease) Hypoxemia Ischemic cardiomyopathy Kidney disease, chronic, stage III (GFR 30-59 ml/min) Paroxysmal atrial fibrillation Pneumonia of both lower lobes Home Medications allopurinol 100 mg tablet 100 mg PO BID Gout 11/24/18 [History Last Taken 09/19/23 03:30] atorvastatin 40 mg tablet 40 mg PO QHS Cholesterol 11/24/18 [History Last Taken 05/06/22] pyridoxine (vitamin B6) 100 mg tablet 100 mg PO DAILY supplement 11/24/18 [History Last Taken 09/19/23 03:30] albuterol sulfate 90 mcg/actuation aerosol inhaler 2 puff inhalation Q4H PRN shortness of breath or wheezing #8.5 grams 12/25/20 [Rx Last Taken Unknown] ascorbate calcium (vitamin C) 500 mg tablet 500 mg PO DAILY supplement 12/25/20 [History Last Taken 09/19/23 03:30] mecobalamin (vitamin B12) 1,000 mcg disintegrating tablet,sublingual 1,000 mcg sublingual DAILY supplement 12/25/20 [History Last Taken 05/07/22] cholecalciferol (vitamin D3) 50 mcg (2,000 unit) tablet 50 mcg PO DAILY #1 TAB 03/09/22 [Rx Last Taken 09/19/23 03:30] coenzyme Q10 100 mg tablet 100 mg PO DAILY 09/24/22 [History Last Taken Unknown] torsemide 20 mg tablet 20 mg PO .COMPLEX edema 11/19/22 [History Last Taken Unknown] carvedilol 12.5 mg tablet 25 mg (2 x 12.5 mg) PO BID HTN #180 tabs 06/30/23 [Rx Last Taken 09/19/23 03:30] potassium chloride 20 mEq tablet,extended release 20 meq PO DAILY Hypokalemia 06/30/23 [History Last Taken Unknown] sodium bicarbonate 325 mg tablet 650 mg PO DAILY 06/30/23 [History Last Taken Unknown] nitroglycerin 0.4 mg sublingual tablet 0.4 mg sublingual Q5M PRN Cardiac/Chest Pain #30 tabs 09/02/23 [Rx Last Taken Unknown] apixaban 2.5 mg tablet 2.5 mg PO BID Blood thinner #180 tabs 09/30/23 [Rx Last Taken Unknown] Allergy/AdvReac Type Severity Reaction Status Date / Time No Known Allergies Allergy Verified 10/17/23 21:17 Family History Father CAD (coronary artery disease) Surgical History History of brain surgery History of coronary artery bypass graft x 3 History of craniotomy History of permanent cardiac pacemaker placement Social History Smoking Status: Never smoker alcohol intake: never substance use type: does not use caffeine: No ROS ROS ED ROS Narrative Constitutional: No fever, positive chills. However, fever reported by EMS. HEENT: No sore throat. No neck pain. No loss of vision. No rhinorrhea. Cardiovascular: No chest pain. No palpitations. No pedal edema. Respiratory: No cough, no shortness of breath. Abdominal: No abdominal pain. No nausea. No vomiting. Genitourinary: No dysuria. No hematuria. Musculoskeletal: No myalgias. No arthralgias. Neurologic: No headaches. No dizziness. No lightheadedness. Positive generalized weakness, unable to stand from toilet. Skin: No rash. No change in color. Psychiatric: No depression. No anxiety. EXAM Physical Exam Narrative Exam Narrative: Afebrile. Vital signs noted. Nontoxic-appearing. HEENT: Normocephalic. Atraumatic. PERRL, EOMI. Neck soft and supple. No point tenderness or step off. Cardiovascular: Regular rate and rhythm. No murmurs, rubs, or gallops appreciated. Respiratory: No tachypnea. Lungs clear to auscultation bilaterally. Gastrointestinal: Abdomen soft, nontender, with normoactive bowel sounds. No rebound or guarding. Neurological: Awake. Alert. Nonfocal, nonlateralizing. Skin: No rash. Normal color. No pallor. Musculoskeletal: No pedal edema. Full range of motion extremities. Able to flex and extend bilateral lower extremities at hips and knees. Palpable dorsalis pedis pulses bilaterally. Const Vital Signs: 10/17/23 21:17 10/17/23 23:03 10/17/23 23:54 Temperature 98.7 F 98.3 F Temperature Source Oral Pulse Rate 76 100 Respiratory Rate 18 16 Blood Pressure 129/66 H 140/74 H Blood Pressure Mean 87 96 Pulse Ox 96 96 Oxygen Delivery Method Room Air Room Air 10/17/23 23:57 Temperature 98.0 F Temperature Source Temporal Pulse Rate 100 Respiratory Rate 16 Blood Pressure 140/74 H Blood Pressure Mean 96 Pulse Ox 94 Oxygen Delivery Method Room Air MDM MDM MDM Narrative Medical decision making narrative: Patient is afebrile here currently. He has blood pressure that is 129/66, not tachycardic. However, given the reported fever, sepsis workup was pursued. He may have some element of dehydration as well or electrolyte imbalance. He could also have his generalized debility that has resolved. EKG was obtained and interpreted by myself independently as atrial flutter with PVCs but no acute ST changes, no STEMI, at 82 bpm. I reviewed his laboratory work and he has normal white count of 6.5, hemoglobin stable at 10.0, platelet count 153. INR is normal at 1.4, electrolyte panel is significant for chloride of 113 and elevated but I think this is nonspecific, his BUN is 52 with a creatinine of 2.12, but he has chronic kidney disease. Glucose appropriately elevated at 130 with a normal anion gap of 5. High-sensitivity troponin is 37. Chest x-ray in 1 view obtained and interpreted by myself independently shows no evidence of pneumonia or pneumothorax. His pneumonia has cleared when compared to previous x-ray and November. I reviewed the radiology report which confirms my independent interpretation. Of significance is his lactic acid which is slightly elevated at 2.1 which may be more from dehydration as he is not really meeting other SIRS criteria as he is not febrile here, no leukocytosis, and no tachycardia. I will refrain from antibiotics at this point in time, but of note, he is COVID-positive. This may explain his generalized weakness. His pulse ox is 96% on room air. In discussion with his son and his , the patient is too weak to go home. They are unsure as to how they will get him in the house because he can barely stand and needs assistance. Given his lactic acidosis, he will be bolused another liter, but since he has inability to ambulate independently as he had before, I will discuss patient with the hospitalist, Dr. Soni, for admission. Patient is in stable condition. History & Record Review Discussion w/independent historian: Patient and Family Additional record(s) reviewed:: Prior ED visit and Prior labs Lab Data Attestation: I reviewed the patient's lab results. Labs: Laboratory Results - last 24 hr 10/17/23 10/17/23 10/17/23 21:00 22:50 23:35 WBC 6.5 RBC 2.98 L Hgb 10.0 L Hct 31.7 L MCV 106.4 H MCH 33.6 H MCHC 31.5 L RDW Std Deviation 59.8 H RDW Coeff of [place] 15.4 H Plt Count 153 MPV 9.7 Immature Gran % (Auto) 0.300 Neut % (Auto) 73.2 H Lymph % (Auto) 10.3 L [place] % (Auto) 8.9 Eos % (Auto) 6.8 H Baso % (Auto) 0.5 Absolute Neuts (auto) 4.8 Absolute Lymphs (auto) 0.67 L Nucleated RBC % 0 PT 16.7 H INR 1.4 APTT 37.7 H Sodium 140 Potassium 4.5 Chloride 113 H Carbon Dioxide 22.0 Anion Gap 5 BUN 52 H Creatinine 2.12 H Estim Creat Clear Calc 23.75 Est GFR (MDRD) Af Amer 38 L Est GFR (MDRD) Non-Af 32 L BUN/Creatinine Ratio 24.5 H Glucose 130 H Lactic Acid 2.1 H* Calcium 8.9 Total Bilirubin 1.00 AST 21 ALT 46 Alkaline Phosphatase 95 Troponin I High Sens 37 Total Protein 6.8 Albumin 3.6 Globulin 3.2 Albumin/Globulin Ratio 1.1 Urine Color Yellow Urine Clarity Clear Urine pH 6.0 Ur Specific [place] 1.020 Urine Protein 30 H Urine Glucose (UA) Normal Urine Ketones Negative Urine Occult Blood Negative Urine Nitrite Negative Urine Bilirubin Negative Urine Urobilinogen Normal Ur Leukocyte Esterase Negative Radiography Diagnostic Testing: Clinical Impression(s) from Imaging Studies Chest X-Ray 10/17/23 23:10 IMPRESSION: No radiographic evidence of acute cardiopulmonary disease. Cardiomegaly and pacer without florid edema. Electronically Signed: Vincent Cadet MD at 23:46 EST , Discharge Plan Dx/Rx/DC Orders Clinical Impression: COVID, Chronic kidney disease (CKD), Generalized weakness, Lactic acidosis Disposition Disposition: Acute Care [facility]
--- OUTSIDE RECORDS SUMMARY | 2023-10-17 22:20 | XMS RPT_ITS | CCD ---
Author Name Unknown Address [email or web address] [place] [address] Organization [facility] Care Team Providers Care Team Driver Name Role Phone Arnold Spencer MD Primary Care Provider Jarvis Mcgee RN Unavailable Unavailabl e Unavailable Primary Care Provider UnavailArnold Benítez MD Primary Care Provider Jarvis Mcgee RN Unavailable Unavailabl Arnold Warren MD Primary Care Provider Jacquelyn Conley RN Unavailable Unavailabl e ELENA BUNCH Referring Unavailable TALAMPAS, ARNOLD D Primary Care Unavailable Jacquelyn Conley RN Unavailable Unavailabl e SHARAKOVA, CAT Referring Unavailable TALAMPAS, ARNOLD D Primary Care Unavailable TALAMPAS, ARNOLD D Primary Care Unavailable PINEDA, DELLA Referring Unavailable TALAMPAS, ARNOLD D Primary Care Unavailable PINEDA, DELLA Attending Unavailable TALAMPAS, ARNOLD D Primary Care Unavailable SHARAKOVA, CAT Attending Unavailable TALAMPAS, ARNOLD D Primary Care Unavailable SHARAKOVA, CAT Referring Unavailable TALAMPAS, ARNOLD D Primary Care Unavailable SHARAKOVA, CAT Referring Unavailable SHARAKOVA, CAT Attending Unavailable TALAMPAS, ARNOLD D Primary Care Unavailable TALAMPAS, ARNOLD D Primary Care Unavailable SHARAKOVA, CAT Referring Unavailable SHARAKOVA, CAT Attending Unavailable TALAMPAS, ARNOLD D Primary Care Unavailable SHARAKOVA, CAT Referring Unavailable TALAMPAS, ARNOLD D Primary Care Unavailable TALAMPAS, ARNOLD D Attending Unavailable TALAMPAS, ARNOLD D Primary Care Unavailable SHARAKOVA, CAT Referring Unavailable TALAMPAS, ARNOLD D Primary Care Unavailable Allergies Allergy Classification Reported Allergen(s) Allergy Type Date of Onset Reaction(s) Facility (20 sources) amLODIPine; Translations: [AMLODIPINE BESYLATE] Drug Allergy 9 Other: See Comments [facility] (13 sources) HMG-CoA reductase inhibitor; Translations: [[id number] A REDUCTASE INHIBITORS] Drug Intolerance 4 Other: See Comments [facility] (20 sources) Indomethacin; Translations: [INDOMETHACIN SODIUM] Drug Allergy [address] [facility] (20 sources) Lisinopril; Translations: [LISINOPRIL] Drug Allergy [address] [facility] Work Phone: (20 sources) HMG-CoA reductase inhibitor Drug Intolerance 4 Other: See Comments [facility] Medications Current Medications Medication Drug Class(es) Dates Sig (Normalized) Sig (Original) amoxicillin 875 mg / clavulanate 125 mg oral tablet (1 source) Penicillin-class Antibacterial Start: 11-20-2022 End: 11-27-2022 take 1 tablet by mouth twice daily at mealtime amoxicillin-clav ulanic acid (AUGMENTIN) 875-125 mg per tablet Indications: Infiltrate of right lung present on chest x-ray , Pleural effusion on right Take 1 tablet by mouth twice daily for 7 days. Take with food 14 tablet 0 11/20/2022 11/27/2022 Active Completed/Discontinued Medications Medication Drug Class(es) Dates Sig (Normalized) Sig (Original) [id number] 200 actuat albuterol 0.09 mg/actuat metered dose inhaler (20 sources) beta2-Adrenergic Agonist Start: 01-06-2022 End: 02-05-2022 take 2 puff(s) by inhalation every four hours as needed for wheezing albuterol HFA (PROVENTIL HFA, VENTOLIN HFA) 90 mcg/actuation inhaler Inhale 2 Puffs as instructed every 4 hours as needed for wheezing/shortnes s of breath. 6.7 g 0 01/06/2022 Active Problems Active Problems Problem Classification Problem Date Documented Da te Episodic/Chronic Acute cerebrovascular disease (20 sources) Subdural hematoma; Translations: [Nontraumatic acute subdural hemorrhage] Onset: 9 11-30-2018 Chronic Cardiac dysrhythmias (20 sources) Ventricular premature beats; Translations: [Ventricular premature depolarization] Onset: 2 04-20-2013 Chronic Chronic kidney disease (20 sources) Chronic kidney disease stage 3; Translations: [CKD (chronic kidney disease), stage III] Onset: 3 09-06-2018 Chronic Chronic kidney disease (1 source) Chronic kidney disease; Translations: [Stage 3b chronic kidney disease (HCC)] Onset: 3 Conduction disorders (20 sources) H/O: cardiac pacemaker in situ; Translations: [Presence of cardiac pacemaker] Onset: 6 12-12-2020 Chronic Congestive heart failure; nonhypertensive (20 sources) Heart failure; Translations: [Heart failure, unspecified] Onset: 1 03-26-2021 Chronic Coronary atherosclerosis and other heart disease (20 sources) Coronary atherosclerosis; Translations: [Atherosclerotic heart disease of [place] coronary artery without angina pectoris] Onset: 5 08-19-2021 Chronic Deficiency and other anemia (20 sources) Anemia of chronic disease; Translations: [Anemia in other chronic diseases classified elsewhere] Onset: 7 07-28-2021 Chronic Disorders of lipid metabolism (20 sources) Mixed hyperlipidemia; Translations: [Mixed hyperlipidemia] Onset: 2 09-03-2019 Chronic Esophageal disorders (1 source) Laryngopharyngeal reflux; Translations: [Gastro-esophageal reflux disease without esophagitis] Chronic Essential hypertension (20 sources) Essential hypertension; Translations: [Essential (primary) hypertension] Onset: 2 09-03-2019 Chronic Fluid and electrolyte disorders (20 sources) Hypokalemia; Translations: [Hypokalemia] Onset: 6 02-05-2016 Episodic Gout and other crystal arthropathies (20 sources) Gouty arthritis of left foot; Translations: [Idiopathic gout, left ankle and foot] Onset: 0 03-19-2020 Chronic Heart valve disorders (20 sources) Mitral valve prolapse; Translations: [Nonrheumatic mitral (valve) prolapse] Onset: 2 09-03-2019 Chronic Hyperplasia of prostate (4 sources) Benign prostatic hyperplasia; Translations: [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] Chronic Hypertension with complications and secondary hypertension (11 sources) Hypertensive heart AND chronic kidney disease stage 3; Translations: [Hypertensive heart and chronic kidney disease with heart failure and stage 1 through stage 4 chronic kidney disease, or unspecified chronic kidney disease] Onset: 3 01-29-2023 Chronic Immunizations and screening for infectious disease (1 source) Patient encounter status; Translations: [Encounter for immunization] Episodic Noninfectious gastroenteritis (20 sources) Collagenous colitis; Translations: [Collagenous colitis] 02-11-2017 Chronic Occlusion or stenosis of precerebral arteries (20 sources) Asymptomatic carotid artery stenosis; Translations: [Occlusion and stenosis of unspecified carotid artery] Onset: 7 05-20-2018 Chronic Other connective tissue disease (2 sources) Swelling of lower limb; Translations: [Other specified soft tissue disorders] Episodic Other diseases of kidney and ureters (3 sources) Hydronephrosis; Translations: [Unspecified hydronephrosis] Episodic Other gastrointestinal disorders (2 sources) Diarrhea; Translations: [Diarrhea, unspecified] Episodic Other infections; including parasitic (1 source) Personal history of other infectious and parasitic diseases; Translations: [Personal history of COVID-19] Episodic Other lower respiratory disease (1 source) Cough; Translations: [Cough, unspecified type] Episodic Other lower respiratory disease (1 source) Chronic cough; Translations: [Chronic cough] Episodic Other nutritional; endocrine; and metabolic disorders (1 source) Hypomagnesemia; Translations: [Hypomagnesemia] Chronic Residual codes; unclassified (1 source) Peripheral edema; Translations: [Edema, unspecified] Episodic Residual codes; unclassified (4 sources) Edema; Translations: [Edema, unspecified] Episodic Spondylosis; intervertebral disc disorders; other back problems (20 sources) Disorder of joint of spine; 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, lumbar region] Onset: 6 02-21-2016 Chronic Unclassified (1 source) Subacute cough; Translations: [Subacute cough] Onset: 3 Viral infection (1 source) Disease caused by 2019-nCoV; Translations: [COVID-19] Episodic Past or Other Problems Problem Classification Problem Date Documented Date Episodic/Chronic Acute and unspecified renal failure (10 sources) Acute injury of kidney; Translations: [Acute kidney failure, unspecified] Onset: 12-10-2022 Episodic Cardiac dysrhythmias (2 sources) Bradycardia; Translations: [Bradycardia, unspecified] Onset: 03-13-2022 Episodic Diabetes mellitus without complication (20 sources) Hyperglycemia; Translations: [Hyperglycemia, unspecified] Onset: 02-11-2017 02-11-2017 Episodic Other circulatory disease (11 sources) History of subdural hematoma; Translations: [Personal history of other diseases of the circulatory system] Onset: 11-25-2018 01-29-2023 Episodic Other connective tissue disease (20 sources) Full thickness rotator cuff tear; Translations: [Complete rotator cuff tear or rupture of left shoulder, not specified as traumatic] Onset: 06-12-2014 06-12-2014 Episodic Other nutritional; endocrine; and metabolic disorders (20 sources) Hyperuricemia; Translations: [Hyperuricemia without signs of inflammatory arthritis and tophaceous disease] Onset: 01-09-2014 01-09-2014 Episodic Other nutritional; endocrine; and metabolic disorders (1 source) Hyperuricemia without signs of inflammatory arthritis and tophaceous disease; Translations: [Hyperuricemia] Onset: 01-09-2014 Episodic Spondylosis; intervertebral disc disorders; other back problems (20 sources) Spinal stenosis of lumbar region; Translations: [Spinal stenosis, lumbar region without neurogenic claudication] Onset: 11-24-2018 11-24-2018 Episodic Results Test Name Value Interpretation Reference Range Facil ity Vital Signs Date Time Vital Sign Value Performing Clinician Gabe faye 02-02-2023 15:57-0400 Body temperature 97.59 [degF] Arnold Spencer MD Work Phone: [facility] 02-02-2023 15:57-0400 Body weight 65.77 kg Arnold Spencer MD Work Phone: [facility] 02-02-2023 15:57-0400 Diastolic blood pressure 68 mm[Hg] Arnold Spencer MD Work Phone: [facility] 02-02-2023 15:57-0400 Heart rate 93 /min Arnold Spencer MD Work Phone: [facility] 02-02-2023 15:57-0400 Respiratory rate 18 /min Arnold Spencer MD Work Phone: [facility] 02-02-2023 15:57-0400 SaO2% (BldA) [Mass fraction] 98 % Arnold Spencer MD Work Phone: [facility] 02-02-2023 15:57-0400 Systolic blood pressure 122 mm[Hg] Arnold Spencer MD Work Phone: [facility] 11-03-2022 14:40-0500 Body height 177.8 cm Cat Chavira MD Work Phone: [facility] 11-03-2022 14:40-0500 Body weight 68.95 kg Cat Chavira MD Work Phone: [facility] 11-03-2022 14:40-0500 Diastolic blood pressure 67 mm[Hg] Cat Chavira MD Work Phone: [facility] 11-03-2022 14:40-0500 Heart rate 63 /min Cat Chavira MD Work Phone: [facility] 11-03-2022 14:40-0500 Systolic blood pressure 121 mm[Hg] Cat Chavira MD Work Phone: [facility] 07-31-2022 14:41-0400 Body height 177.8 cm Cat Chavira MD Work Phone: [facility] 07-31-2022 14:41-0400 Body weight 64.86 kg Cat Chavira MD Work Phone: [facility] 07-31-2022 14:41-0400 Diastolic blood pressure 72 mm[Hg] Cat Chavira MD Work Phone: [facility] 07-31-2022 14:41-0400 Heart rate 94 /min Cat Chavira MD Work Phone: [facility] 07-31-2022 14:41-0400 Systolic blood pressure 127 mm[Hg] Cat Chavira MD Work Phone: [facility] 07-28-2022 13:31-0400 Body height 177.8 cm Partha Santana PA-C Work Phone: [facility] 07-28-2022 13:31-0400 Body temperature 97 [degF] Partha Santana PA-C Work Phone: [facility] 07-28-2022 13:31-0400 Body weight 65.32 kg Partha Santana PA-C Work Phone: [facility] 07-28-2022 13:31-0400 Diastolic blood pressure 70 mm[Hg] Partha Santana PA-C Work Phone: [facility] 07-28-2022 13:31-0400 Heart rate 108 /min Partha Santana PA-C Work Phone: [facility] 07-28-2022 13:31-0400 Respiratory rate 14 /min Partha Santana PA-C Work Phone: [facility] 07-28-2022 13:31-0400 SaO2% (BldA) [Mass fraction] 96 % Partha Santana PA-C Work Phone: [facility] 07-28-2022 13:31-0400 Systolic blood pressure 110 mm[Hg] Partha Santana PA-C Work Phone: [facility] 07-21-2022 14:42-0400 Body weight 65.32 kg 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 WIG COMBER.CHEMICAL EDUCATOR Work Phone: [facility] 07-21-2022 14:42-0400 Diastolic blood pressure 68 mm[Hg] 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 WIG COMBER.CHEMICAL EDUCATOR Work Phone: [facility] 07-21-2022 14:42-0400 Heart rate 60 /min 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 WIG COMBER.CHEMICAL EDUCATOR Work Phone: [facility] 07-21-2022 14:42-0400 Respiratory rate 16 /min 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 WIG COMBER.CHEMICAL EDUCATOR Work Phone: [facility] 07-21-2022 14:42-0400 SaO2% (BldA) [Mass fraction] 99 % 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 WIG COMBER.CHEMICAL EDUCATOR Work Phone: [facility] 07-21-2022 14:42-0400 Systolic blood pressure 120 mm[Hg] 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 WIG COMBER.CHEMICAL EDUCATOR Work Phone: [facility] 07-10-2022 15:50-0400 Body height 172.7 cm Cat Chavira MD Work Phone: [facility] 07-10-2022 15:50-0400 Body weight 70.31 kg Cat Chavira MD Work Phone: [facility] 07-10-2022 15:50-0400 Diastolic blood pressure 81 mm[Hg] Cat Chavira MD Work Phone: [facility] 07-10-2022 15:50-0400 Heart rate 63 /min Cat Chavira MD Work Phone: [facility] 07-10-2022 15:50-0400 Systolic blood pressure 145 mm[Hg] Cat Chavira MD Work Phone: [facility] 06-23-2022 14:33-0400 Body weight 68.49 kg 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 WIG COMBER.CHEMICAL EDUCATOR Work Phone: [facility] 06-23-2022 14:33-0400 Diastolic blood pressure 60 mm[Hg] 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 WIG COMBER.CHEMICAL EDUCATOR Work Phone: [facility] 06-23-2022 14:33-0400 Heart rate 80 /min 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 WIG COMBER.CHEMICAL EDUCATOR Work Phone: [facility] 06-23-2022 14:33-0400 Respiratory rate 16 /min 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 WIG COMBER.CHEMICAL EDUCATOR Work Phone: [facility] 06-23-2022 14:33-0400 Systolic blood pressure 110 mm[Hg] 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 WIG COMBER.CHEMICAL EDUCATOR Work Phone: [facility] 06-05-2022 14:02-0400 Body weight 72.12 kg Arnold Spencer MD Work Phone: [facility] 06-05-2022 14:02-0400 Diastolic blood pressure 80 mm[Hg] Arnold Spencer MD Work Phone: [facility] 06-05-2022 14:02-0400 Heart rate 74 /min Arnold Spencer MD Work Phone: [facility] 06-05-2022 14:02-0400 SaO2% (BldA) [Mass fraction] 98 % Arnold Spencer MD Work Phone: [facility] 06-05-2022 14:02-0400 Systolic blood pressure 140 mm[Hg] Arnold Spencer MD Work Phone: [facility] 05-26-2022 10:07-0400 Body temperature 97.9 [degF] 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 WIG COMBER.CHEMICAL EDUCATOR Work Phone: [facility] 05-26-2022 10:07-0400 Body weight 70.76 kg 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 WIG COMBER.CHEMICAL EDUCATOR Work Phone: [facility] 05-26-2022 10:07-0400 Diastolic blood pressure 74 mm[Hg] 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 WIG COMBER.CHEMICAL EDUCATOR Work Phone: [facility] 05-26-2022 10:07-0400 Heart rate 70 /min 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 WIG COMBER.CHEMICAL EDUCATOR Work Phone: [facility] 05-26-2022 10:07-0400 Respiratory rate 16 /min 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 WIG COMBER.CHEMICAL EDUCATOR Work Phone: [facility] 05-26-2022 10:07-0400 SaO2% (BldA) [Mass fraction] 97 % 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 WIG COMBER.CHEMICAL EDUCATOR Work Phone: [facility] 05-26-2022 10:07-0400 Systolic blood pressure 134 mm[Hg] 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 WIG COMBER.CHEMICAL EDUCATOR Work Phone: [facility] 03-10-2022 12:58-0400 Body weight 68.95 kg 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 WIG COMBER.CHEMICAL EDUCATOR Work Phone: [facility] 03-10-2022 12:58-0400 Diastolic blood pressure 82 mm[Hg] 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 WIG COMBER.CHEMICAL EDUCATOR Work Phone: [facility] 03-10-2022 12:58-0400 Heart rate 84 /min 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 WIG COMBER.CHEMICAL EDUCATOR Work Phone: [facility] 03-10-2022 12:58-0400 Respiratory rate 16 /min 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 WIG COMBER.CHEMICAL EDUCATOR Work Phone: [facility] 03-10-2022 12:58-0400 Systolic blood pressure 130 mm[Hg] 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 WIG COMBER.CHEMICAL EDUCATOR Work Phone: [facility] Encounters Encounter Date Encounter Type Care Provider Facility Start: 08-09-2023 Telephone encounter Cat sy MD Work Phone: [facility] Procedures Date Procedure Procedure Detail Performing Clinician Start: 08-15-2022 INFLUENZA SEASONAL QUADRIVALENT HIGH DOSE AGE 65+ Tree To MD Work Phone: Start: 07-28-2022 Urnls dip stick/tabl et rgnt auto w/o microscopy Partha Santana PA-C Work Phone: Start: 07-20-2022 Assay of magnesium Luis Daniel De Guzmans WIG COMBER.CHEMICAL EDUCATOR Work Phone: Start: 03-13-2022 PACEMAKER REMOTE CHECK Elena Bunch MD Work Phone: Start: 2015 History of coronary artery bypass grafting S/P CABG (coronary artery bypass graft) Jarvis Mcgee RN History of coronary artery bypass grafting S/P CABG (coronary artery bypass graft) Della De Guzmans WIG COMBER.CHEMICAL EDUCATOR Work Phone: History of coronary artery bypass grafting S/P CABG (coronary artery bypass graft) Della De Guzmans WIG COMBER.CHEMICAL EDUCATOR Work Phone: Plan of Treatment Date Care Activity Detail Author Start: 02-02-2026 DIABETES SCREEN DIABETES SCREEN [facility] Start: 02-02-2026 Diabetes Screening Diabetes Screenin g [facility] Start: 12-10-2025 DIABETES SCREEN DIABETES SCREEN [facility] Start: 08-27-2025 DIABETES SCREEN DIABETES SCREEN [facility] Start: 08-18-2025 DIABETES SCREEN DIABETES SCREEN [facility] Start: 07-28-2025 DIABETES SCREEN DIABETES SCREEN [facility] Start: 07-20-2025 DIABETES SCREEN DIABETES SCREEN [facility] Start: 07-06-2025 DIABETES SCREEN DIABETES SCREEN [facility] Start: 05-25-2025 DIABETES SCREEN DIABETES SCREEN [facility] Start: 01-09-2025 DIABETES SCREEN DIABETES SCREEN [facility] Start: 02-03-2024 Hepatitis B surface antibody level LDL CHOLESTEROL [facility] Start: 02-03-2024 SHINGRIX VACCINE (1 of 2) SHINGRIX VACCINE (1 of 2) [facility] Immunizations Immunization Date Immunization Notes Care Provider Nino ewing 08-15-2022 influenza, high-dose , quadrivalent vaccine (FLUZONE HIGH DOSE QUADRIVALENT) Immunization Yumiko Work Phone: [facility] 08-15-2022 influenza virus vaccine, unspecified formulation Jacquelyn Conley RN [facility] 07-28-2021 influenza, high-dose , quadrivalent vaccine (FLUZONE HIGH DOSE QUADRIVALENT) Jarvis Mcgee RN [facility] 03-04-2021 COVID-19 vaccine, ag e 12+ yr (PFIZER-BIONTECH - PURPLE TOP) Jarvis Mcgee RN [facility] 02-08-2021 COVID-19 vaccine, ag e 12+ yr (PFIZER-BIONTECH - PURPLE TOP) Jarvis Mcgee RN [facility] 08-08-2020 influenza, seasonal, injectable Jarvis Mcgee RN [facility] 07-24-2020 influenza, high-dose , quadrivalent vaccine (FLUZONE HIGH DOSE QUADRIVALENT) Cat Chavira MD Work Phone: [facility] 10-10-2019 influenza, high dose seasonal, preservative-free Jarvis Mcgee RN [facility] Work Phone: 07-01-2018 influenza, high dose seasonal, preservative-free Jarvis Mcgee RN [facility] 08-19-2017 influenza, high dose seasonal, preservative-free Jarvis Mcgee RN [facility] 08-19-2017 tetanus and diphther ia toxoids, adsorbed, preservative free, for adult use (5 Lf of tetanus toxoid and 2 Lf of diphtheria toxoid) Jarvis Mcgee RN [facility] 08-11-2016 influenza, high dose seasonal, preservative-free Jarvis Mcgee RN [facility] Work Phone: 07-29-2015 influenza, high dose seasonal, preservative-free Jarvis Mcgee RN [facility] 07-29-2015 pneumococcal conjuga te vaccine, 13 valent Jarvis Mcgee RN [facility] 08-22-2014 influenza, seasonal, injectable Jarvis Mcgee RN [facility] Work Phone: 09-06-2013 influenza virus vaccine, unspecified formulation Jarvis Mcgee RN [facility] Work Phone: 09-19-2012 influenza virus vaccine, unspecified formulation Jarvis Mcgee RN [facility] 10-23-2011 influenza virus vaccine, unspecified formulation Jarvis Mcgee RN [facility] 03-27-2008 pneumococcal polysaccharide vaccine, 23 valent Jarvis Mcgee RN [facility] NEGATED: Highlighted row has not occurred!07-21-2022 influenza, high-dose, quadrivalent vaccine (FLUZONE HIGH DOSE QUADRIVALENT) 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 APRN.[facility] Work Phone: [facility] Work Phone: Payers Date Payer Category Payer Medicare [id number] 2021 Unknown [employer] SUPPLEMENT [id number] 2021-Present [phone] [id number] [employer] [address] [place] [address] Indemnity [id number] 2019 Unknown [id number] 2001 Medicare MEDICARE MEDICAR E A AND B [id number] 2001-Present [phone] [place] [address] Medicare [id number] 2001 Medicare MEDICARE MEDICAR E A AND B [id number] 2001-Present [phone] [place] [address] Medicare [id number] 2001 Medicare [id number] Social History Date Type Detail Facility Start: 02-22-2012 End: 06-23-2022 Tobacco smoking status NHIS Never smoked tobacco [facility] Start: 01-13-2022 End: 02-02-2023 Alcohol intake Current non-drinker of alcohol (finding) [facility] Start: 03-29-2020 End: 04-23-2020 History SDOH Alcohol Frequency 1 [facility] Start: 03-29-2020 History SDOH Alcohol Std Drinks 98 [facility] Start: 03-29-2020 End: 04-23-2020 History SDOH Social Connections Phone 5 [facility] Start: 03-29-2020 History SDOH Social Connections Get Together 4 [facility] Start: 03-29-2020 History SDOH Social Connections Religious 3 [facility] Start: 03-08-2020 End: 03-29-2020 History SDOH Physical Activity DPW 2 [facility] Start: 03-08-[address] [facility] Start: 1935 Sex Assigned At Not on file [facility] Start: 01-03-2022 End: 07-31-2022 Exposure to SARS-CoV-2 (event) Not sure [facility] Work Phone: Start: 02-22-2012 End: 06-23-2022 Tobacco use and exposure Smokeless tobacco non-user [facility] Tobacco smoking stat us NHIS Tobacco smoking consumption unknown [facility] Start: 02-02-2023 End: 04-26-2023 History of Social function [facility] Work Phone: Start: 02-02-2023 End: 04-26-[address] [facility] Work Phone: Adult Depression Screening Assessment 0 [facility] Work Phone: Do you belong to any clubs or organizations such as scientologist groups, unions, fraternal or athletic groups, or school groups? Yes [facility] Are you now , , , , never or living with a partner? [facility] How often to you hav e a drink containing alcohol? Never [facility] Do you feel stress - tense, restless, nervous, or anxious, or unable to sleep at night because your mind is troubled all the time - these days [OSQ] Not at all [facility] (I/We) worried wheth er (my/our) food would run out before (I/we) got money to buy more. Never true [facility] Work Phone: In the past 12 month s, was there a time when you were not able to pay the mortgage or rent on time? No [facility] Medical Equipment Procedure Code Equipment Code Equipment Original Text Equipment Identifier Dates Plate Low Profil e Titanium 12mm Bone 2 Hole Bar 1.5mm Screw Nonsterile - [id number] Start: 11-29-2018 Plate Low Profil e Titanium 12mm Bone 2 Hole Bar 1.5mm Screw Nonsterile - [id number] Start: 11-29-2018 Screw 1.5mm 4mm Bone Self Drill [place] Craniomaxillofacial - [id number] Start: 11-29-2018 Screw 1.5mm 4mm Bone Self Drill [place] Craniomaxillofacial - [id number] Start: 11-29-2018 Goals Date Patient Goal Desired Activity /State Personal health goal Clinical Notes 06-03-2017 to 09-17-2023 Jacquelyn Conley RN - 08/09/2023 4:50 PM EDTSJacquelyn werner RN - 08/06/2023 5:59 PM EDTTelephone Russ - Liliana De La Rosa Ma - 08/09/2023 2:58 PM EDTBeverley Kaba LPN - 08/28/2022 1:39 PM EDT Note Date & Type Note Facility 09-17-2023 Note HNO ID: [id number] Author: Jacquelyn Conley RN Service: ? Author Type: Registered Nurse Type: Progress Notes Filed: 09/27/2023 2:20 PM Note Text: CDM Telephonic Outreach Provider Action/FYI CDM: CHF, CKD Spk with spouse Deirdre she noted Joseph has vocal cord issue and nasal passage issues, has 09/22/[address] Alicea ENT. Pt recently established with Dr. Grace [facility].Denies needs. Instructed to call new PCP for any symptom changes, concerns or needs, Pt and are aware of discontinuation of [employer] services, and noted appreciation for previous and current calls. Contacted for: Routine Telephonic Outreach Contact made with patient: Yes Patient identified by name and date of . Discussed care with spouse Are you experiencing any new or worsening symptoms you need to talk about today? No Disease Specific Do you check your blood pressure at home? Yes, Enter readings: Not available Do you have new or worsening shortness of breath with activity? No Do you have new or worsening trouble breathing while lying flat? No Do you have new or worsening swelling of legs, feet or ankles? No Do you feel like you are dehydrated for any reason, including not being able to eat or drink normally, or having less urine/much darker urine than normal for you? No Do you check your daily weight at home? Yes, Have you noticed a sudden gain in weight greater than three pounds in a day or three pounds in a week? No Based on nursing project coordinator, the following disposition is advised: No symptoms or symptoms present, not severe. Routed to: No Action Needed SEVEN Education Provided this Outreach: No Jacquelyn Conley RN September 17, 2023 3:44 PM [facility] 09-17-2023 Note Patient Outreach ([place] [facility] [place] DARCY COVARRUBIAS ([id number]) 1935 M T Date Time Provider Department 09/17/23 JACQUELYN CON[place] [facility] [place] your visit today, we recorded the following information about you: Jacquelyn Conley RN 09/27/2023 2:20 PM Signed CDM Telephonic Outreach Provider Action/FYI CDM: CHF, CKD Spk with spouse Deirdre she noted Joseph has vocal cord issue and nasal passage issues, has 09/22/[address] Alicea ENT. Pt recently established with Dr. Lesly [facility].Denies needs. Instructed to call new PCP for any symptom changes, concerns or needs, Pt and are aware of discontinuation of [employer] services, and noted appreciation for previous and current calls. Contacted for: Routine Telephonic Outreach Contact made with patient: Yes Patient identified by name and date of . Discussed care with spouse Are you experiencing any new or worsening symptoms you need to talk about today? No Disease Specific Do you check your blood pressure at home? Yes, Enter readings: Not available Do you have new or worsening shortness of breath with activity? No Do you have new or worsening trouble breathing while lying flat? No Do you have new or worsening swelling of legs, feet or ankles? No Do you feel like you are dehydrated for any reason, including not being able to eat or drink normally, or having less urine/much darker urine than normal for you? No Do you check your daily weight at home? Yes, Have you noticed a sudden gain in weight greater than three pounds in a day or three pounds in a week? No Based on nursing project coordinator, the following disposition is advised: No symptoms or symptoms present, not severe. Routed to: No Action Needed SEVEN Education Provided this Outreach: No Jacquelyn Conley RN September 17, 2023 3:44 PM Allergies As of Date: 09/17/2023 Noted Allergy Reaction INDOCIN (INDOMETHACIN SODIUM) 03/22/2012 8 - GI Upset NORVASC (AMLODIPINE BESYLATE) 12/16/2018 14 - Other: See Comments Comments: Dizziness [id number]-[id number] REDUCTASE INHIBIT*07/10/2014 14 - Other: See Comments Comments: myalgia LISINOPRIL 12/12/2020 3 - Cough Date Reviewed: 04/26/2023 Reviewed by: Liliana De La Rosa Ma - Fully Assessed Reason for Visit: Community Monitoring Outreach [Other] Prescriptions as of 09/27/2023 - sodium bicarbonate 650 mg tablet Take 1 tablet by mouth twice daily. - potassium chloride SR (MICRO-K) 10 mEq CR capsule Take 2 capsules by mouth every Wednesday,Wednesday,Wednesday. Takes Wed/Wed/Wed with Torsemide - allopurinol (ZYLOPRIM) 100 mg tablet Take 2 tablets by mouth once daily. For gout. - magnesium oxide (MAG-OX) 400 mg (241.3 mg magnesium) tablet Take 1 tablet by mouth once daily. - pyridoxine, vitamin B6, (VITAMIN B-6) 100 mg tablet Take 1 tablet by mouth once daily. - torsemide (DEMADEX) 10 mg tablet Take 2 tablets by mouth every Wednesday,Wednesday,Wednesday. - benzonatate (TESSALON PERLES) 100 mg capsule Take 1-2 capsules by mouth three times daily as needed for cough. - Lacto 21-Bifido 3-W-E5-B6-B12 (UP4 PROBIOTICS MEN'S) 50 billion cell -90 mg-30 mcg cap Take 1 tablet by mouth every other day. - atorvastatin (LIPITOR) 40 mg tablet Take 1 tablet by mouth once daily. - Coenzyme Z26-Cragagp E 100-100 mg cap Take by mouth. - loperamide (IMODIUM) 2 mg cap(s) Take 2 mg by mouth four times daily as needed. - nitroglycerin sublingual (NITROQUICK) 0.4 mg SL tablet Dissolve 0.4 mg under the tongue every 5 minutes as needed for chest pain. - sacubitril-valsartan (ENTRESTO) 49-51 mg tablet Take 1 tablet by mouth twice daily. - carvedilol (COREG) 25 mg tablet Take 12.5 mg by mouth twice daily with meals. - ascorbic acid, vitamin C, (VITAMIN C) 500 mg tablet Take 500 mg by mouth once daily. - Apple Cider Vinegar 500 mg tab Take by mouth. - ubidecarenone/vitamin E mixed (COQ10 SG 100 ORAL) Take by mouth once daily. - albuterol HFA (PROVENTIL HFA, VENTOLIN HFA) 90 mcg/actuation inhaler Inhale 2 Puffs as instructed every 4 hours as needed for wheezing/shortness of breath. - Cholecalciferol, Vitamin D3, 25 mcg (1,000 unit) cap Take 2 capsules by mouth once daily. - apixaban (ELIQUIS) 2.5 mg tab tab(s) Take 1 tablet by mouth twice daily. - cyanocobalamin (VITAMIN B-12) 1,000 mcg tab Take 1 tablet by mouth once daily. - Zlmxe-4-GCK-EPA-Fish Oil 1,000 mg (120 mg-180 mg) cap Take 2 g by mouth once daily. - PSYLLIUM HUSK, BULK, MISC Take 1 Packet by mouth once daily. Takes as needed Problem List As Of Date 09/17/2023 Noted Resolved Actinic Keratoses: Premalignant AK's [L57.0] 05/08/2011 08/11/2016 Solar Lentigines [L81.4] 05/08/2011 08/11/2016 Actinic skin damage [L57.8] 05/08/2011 08/11/2016 Other seborrheic keratosis [L82.1] 05/08/2011 08/11/2016 Xerosis cutis [L85.3] 05/08/2011 08/11/2016 PVC's (premature ventric (more content not included)... [facility] 08-09-2023 Note HNO ID: [id number] Author: Jacquelyn Conley RN Service: ? Author Type: Registered Nurse Type: Progress Notes Filed: 08/09/2023 4:52 PM Note Text: CDM Telephonic Outreach Provider Action/FYI CDM: CHF, CKD Left a message to verify symptom status, instructed to call PCP with any changes in condition?or needs. Contacted for: Routine Telephonic Outreach Contact made with patient: No, left message. Jacquelyn Conley RN August 09, 2023 4:50 PM [facility] 08-09-2023 History of Present illness Narrative CDM Telephonic Outreach Provider Action/FYI CDM: CHF, CKD Left a message to verify symptom status, instructed to call PCP with any changes in condition?or needs. Contacted for: Routine Telephonic Outreach Contact made with patient: No, left message. Jacquelyn Conley RN August 09, 2023 4:50 PM CDM Telephonic Outreach Provider Action/FYI CDM: CHF, CKD Left a message to verify symptom status, instructed to call PCP with any changes in condition?or needs. Contacted for: Routine Telephonic Outreach Contact made with patient: No, left message. Jacquelyn Conley RN August 06, 2023 5:59 PM documented in this encounter [facility] 08-09-2023 Miscellaneous Notes Patient called the office to cancel his Aug [address] Chaviar because he would prefer a kidney doctor closer to where he lives in [place], [place] documented in this encounter [facility] 08-06-2023 Note HNO ID: [id number] Author: Jacquelyn Conley RN Service: ? Author Type: Registered Nurse Type: Progress Notes Filed: 08/09/2023 4:52 PM Note Text: CDM Telephonic Outreach Provider Action/FYI CDM: CHF, CKD Left a message to verify symptom status, instructed to call PCP with any changes in condition?or needs. Contacted for: Routine Telephonic Outreach Contact made with patient: No, left message. Jacquelyn Conley RN August 06, 2023 5:59 PM [facility] 08-06-2023 Note Patient Outreach (AM [facility]) DARCY COVARRUBIAS ([id number]) 1935 M T Date Time Provider Department 08/06/23 JACQUELYN CON[place] [facility] [place] your visit today, we recorded the following information about you: Jacquelyn Conley RN 08/09/2023 4:52 PM Signed CDM Telephonic Outreach Provider Action/FYI CDM: CHF, CKD Left a message to verify symptom status, instructed to call PCP with any changes in condition?or needs. Contacted for: Routine Telephonic Outreach Contact made with patient: No, left message. Jacquelyn Conley RN August 06, 2023 5:59 PM Jacquelyn Conley RN 08/09/2023 4:52 PM Signed CDM Telephonic Outreach Provider Action/CLAYI CDM: CHF, CKD Left a message to verify symptom status, instructed to call PCP with any changes in condition?or needs. Contacted for: Routine Telephonic Outreach Contact made with patient: No, left message. Jacquelyn Conley RN August 09, 2023 4:50 PM Allergies As of Date: 08/06/2023 Noted Allergy Reaction INDOCIN (INDOMETHACIN SODIUM) 03/22/2012 8 - GI Upset NORVASC (AMLODIPINE BESYLATE) 12/16/2018 14 - Other: See Comments Comments: Dizziness [id number] REDUCTASE INHIBIT*07/10/2014 14 - Other: See Comments Comments: myalgia LISINOPRIL 12/12/2020 3 - Cough Date Reviewed: 04/26/2023 Reviewed by: Liliana De La Rosa Ma - Fully Assessed Reason for Visit: Community Monitoring Outreach [Other] Prescriptions as of 08/09/2023 - albuterol HFA (PROVENTIL HFA, VENTOLIN HFA) 90 mcg/actuation inhaler Inhale 2 Puffs as instructed every 4 hours as needed for wheezing/shortness of breath. - allopurinol (ZYLOPRIM) 100 mg tablet Take 2 tablets by mouth once daily. For gout. - apixaban (ELIQUIS) 2.5 mg tab tab(s) Take 1 tablet by mouth twice daily. - Apple Cider Vinegar 500 mg tab Take by mouth. - ascorbic acid, vitamin C, (VITAMIN C) 500 mg tablet Take 500 mg by mouth once daily. - atorvastatin (LIPITOR) 40 mg tablet Take 1 tablet by mouth once daily. - benzonatate (TESSALON PERLES) 100 mg capsule Take 1-2 capsules by mouth three times daily as needed for cough. - carvedilol (COREG) 25 mg tablet Take 12.5 mg by mouth twice daily with meals. - Cholecalciferol, Vitamin D3, 25 mcg (1,000 unit) cap Take 2 capsules by mouth once daily. - Coenzyme Y87-Ollwgeq E 100-100 mg cap Take by mouth. - cyanocobalamin (VITAMIN B-12) 1,000 mcg tab Take 1 tablet by mouth once daily. - Lacto 21-Bifido 2-T-I6-B6-B12 (UP4 PROBIOTICS MEN'S) 50 billion cell -90 mg-30 mcg cap Take 1 tablet by mouth every other day. - loperamide (IMODIUM) 2 mg cap(s) Take 2 mg by mouth four times daily as needed. - magnesium oxide (MAG-OX) 400 mg (241.3 mg magnesium) tablet Take 1 tablet by mouth once daily. - nitroglycerin sublingual (NITROQUICK) 0.4 mg SL tablet Dissolve 0.4 mg under the tongue every 5 minutes as needed for chest pain. - Sanxx-8-ZEJ-EPA-Fish Oil 1,000 mg (120 mg-180 mg) cap Take 2 g by mouth once daily. - potassium chloride SR (MICRO-K) 10 mEq CR capsule Take 2 capsules by mouth every Wednesday,Wednesday,Wednesday. Takes Wed/Wed/Wed with Torsemide - PSYLLIUM HUSK, BULK, MISC Take 1 Packet by mouth once daily. Takes as needed - pyridoxine, vitamin B6, (VITAMIN B-6) 100 mg tablet Take 1 tablet by mouth once daily. - sacubitril-valsartan (ENTRESTO) 49-51 mg tablet Take 1 tablet by mouth twice daily. - sodium bicarbonate 650 mg tablet Take 1 tablet by mouth twice daily. - torsemide (DEMADEX) 10 mg tablet Take 2 tablets by mouth every Wednesday,Wednesday,Wednesday. - ubidecarenone/vitamin E mixed (COQ10 SG 100 ORAL) Take by mouth once daily. Problem List As Of Date 08/06/2023 Noted Resolved Actinic Keratoses: Premalignant AK's [L57.0] 05/08/2011 08/11/2016 Solar Lentigines [L81.4] 05/08/2011 08/11/2016 Actinic skin damage [L57.8] 05/08/2011 08/11/2016 Other seborrheic keratosis [L82.1] 05/08/2011 08/11/2016 Xerosis cutis [L85.3] 05/08/2011 08/11/2016 PVC's (premature ventricular contractions) [I49*02/26/2012 Essential hypertension [I10] 02/26/2012 Mixed hyperlipidemia [E78.2] 02/26/2012 Neoplasm of uncertain behavior of skin [D48.5] 03/19/2012 08/11/2016 MVP (mitral valve prolapse) [I34.1] 04/15/2012 Postinflammatory skin changes [R23.8] 09/20/2012 08/11/2016 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 [facility] 07-15-2023 Note Patient Outreach ([facility] [place] DARCY COVARRUBIAS ([id number]) 1935 M CHT Date Time Provider Department 07/15/23 JACQUELYN CONLEY During your visit today, we recorded the following information about you: Jacquelyn Conley, RN 07/16/2023 5:24 PM Signed CDM Telephonic Outreach Provider Action/FYI CDM: CHF, CKD Left a message instructed to call PCP with any changes in condition or needs. Contacted for: Routine Telephonic Outreach Contact made with patient: No, left message. Jacquelyn Conley RN July 15, 2023 11:10 AM Allergies As of Date: 07/15/2023 Noted Allergy Reaction INDOCIN (INDOMETHACIN SODIUM) 03/22/2012 8 - GI Upset NORVASC (AMLODIPINE BESYLATE) 12/16/2018 14 - Other: See Comments Comments: Dizziness FLGFIAO-EFX-HZE REDUCTASE INHIBIT*07/10/2014 14 - Other: See Comments Comments: myalgia LISINOPRIL 12/12/2020 3 - Cough Date Reviewed: 04/26/2023 Reviewed by: Liliana De La Rosa Ma - Fully Assessed Reason for Visit: Community Monitoring Outreach [Other] Prescriptions as of 07/16/2023 - sodium bicarbonate 650 mg tablet Take 1 tablet by mouth twice daily. - potassium chloride SR (MICRO-K) 10 mEq CR capsule Take 2 capsules by mouth every Wednesday,Wednesday,Wednesday. Takes Wed/Wed/Wed with Torsemide - allopurinol (ZYLOPRIM) 100 mg tablet Take 2 tablets by mouth once daily. For gout. - magnesium oxide (MAG-OX) 400 mg (241.3 mg magnesium) tablet Take 1 tablet by mouth once daily. - pyridoxine, vitamin B6, (VITAMIN B-6) 100 mg tablet Take 1 tablet by mouth once daily. - torsemide (DEMADEX) 10 mg tablet Take 2 tablets by mouth every Wednesday,Wednesday,Wednesday. - benzonatate (TESSALON PERLES) 100 mg capsule Take 1-2 capsules by mouth three times daily as needed for cough. - Lacto 21-Bifido 0-D-R0-B6-B12 (UP4 PROBIOTICS MEN'S) 50 billion cell -90 mg-30 mcg cap Take 1 tablet by mouth every other day. - atorvastatin (LIPITOR) 40 mg tablet Take 1 tablet by mouth once daily. - Coenzyme E88-Kybgbgo E 100-100 mg cap Take by mouth. - loperamide (IMODIUM) 2 mg cap(s) Take 2 mg by mouth four times daily as needed. - nitroglycerin sublingual (NITROQUICK) 0.4 mg SL tablet Dissolve 0.4 mg under the tongue every 5 minutes as needed for chest pain. - sacubitril-valsartan (ENTRESTO) 49-51 mg tablet Take 1 tablet by mouth twice daily. - carvedilol (COREG) 25 mg tablet Take 12.5 mg by mouth twice daily with meals. - ascorbic acid, vitamin C, (VITAMIN C) 500 mg tablet Take 500 mg by mouth once daily. - Apple Cider Vinegar 500 mg tab Take by mouth. - ubidecarenone/vitamin E mixed (COQ10 SG 100 ORAL) Take by mouth once daily. - albuterol HFA (PROVENTIL HFA, VENTOLIN HFA) 90 mcg/actuation inhaler Inhale 2 Puffs as instructed every 4 hours as needed for wheezing/shortness of breath. - Cholecalciferol, Vitamin D3, 25 mcg (1,000 unit) cap Take 2 capsules by mouth once daily. - apixaban (ELIQUIS) 2.5 mg tab tab(s) Take 1 tablet by mouth twice daily. - cyanocobalamin (VITAMIN B-12) 1,000 mcg tab Take 1 tablet by mouth once daily. - Ltcic-0-CRT-EPA-Fish Oil 1,000 mg (120 mg-180 mg) cap Take 2 g by mouth once daily. - PSYLLIUM HUSK, BULK, MISC Take 1 Packet by mouth once daily. Takes as needed Problem List As Of Date 07/15/2023 Noted Resolved Actinic Keratoses: Premalignant AK's [L57.0] 05/08/2011 08/11/2016 Solar Lentigines [L81.4] 05/08/2011 08/11/2016 Actinic skin damage [L57.8] 05/08/2011 08/11/2016 Other seborrheic keratosis [L82.1] 05/08/2011 08/11/2016 Xerosis cutis [L85.3] 05/08/2011 08/11/2016 PVC's (premature ventricular contractions) [I49*02/26/2012 Essential hypertension [I10] 02/26/2012 Mixed hyperlipidemia [E78.2] 02/26/2012 Neoplasm of uncertain behavior of skin [D48.5] 03/19/2012 08/11/2016 MVP (mitral valve prolapse) [I34.1] 04/15/2012 Postinflammatory skin changes [R23.8] 09/20/2012 08/11/2016 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] Hyperuricemia [E79.0] 01/09/2014 Complete rotator cuff tear of left shoulder [M7*06/12/2014 Coronary artery disease involving [place] verde*07/29/2015 S/P CABG (coronary artery bypass graft) [Z95.1] 2015 Hypokalemia [E87.6] 02/05/2016 01/29/2023 Osteoarthritis of spine with radiculopathy, lum*02/21/2016 History of permanent cardiac pacemaker placemen*09/03/2016 Paroxysmal atrial fibrillation (HCC) [I48.0] 09/03/2016 Chronic anticoagulation [Z79.01] 09/03/2016 12/16/2018 Carotid stenosis, asymptomatic [I65.29] 02/11/2017 Hyperglycemia [R73.9] 02/11/2017 Anemia of chronic disease [D63.8] 02/11/2017 Atrial fibrillation (HCC) [I48.91] 06/03/2017 02/17/2018 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 [facility] 07-15-2023 Note HNO ID: [id number] Author: Jacquelyn Conley RN Service: ? Author Type: Registered Nurse Type: Progress Notes Filed: 07/16/2023 5:24 PM Note Text: CDM Telephonic Outreach Provider Action/FYI CDM: CHF, CKD Left a message instructed to call PCP with any changes in condition or needs. Contacted for: Routine Telephonic Outreach Contact made with patient: No, left message. Jacquelyn Conley RN July 15, 2023 11:10 AM [facility] 07-15-2023 History of Present illness Narrative CDM Telephonic Outreach Provider Action/FYI CDM: CHF, CKD Left a message instructed to call PCP with any changes in condition or needs. Contacted for: Routine Telephonic Outreach Contact made with patient: No, left message. Jacquelyn Conley RN July 15, 2023 11:10 AM documented in this encounter [facility] 06-21-2023 Note HNO ID: [id number] Author: Jacquelyn Conley RN Service: ? Author Type: Registered Nurse Type: Progress Notes Filed: 06/21/2023 3:40 PM Note Text: CDM Telephonic Outreach Provider Action/FYI CDM: CHF, CKD Left a message instructed to call PCP with any changes in condition or needs. Contacted for: Routine Telephonic Outreach Contact made with patient: No, left message. Jacquelyn Conley RN June 21, 2023 3:38 PM [facility] 06-21-2023 History of Present illness Narrative CDM Telephonic Outreach Provider Action/FYI CDM: CHF, CKD Left a message instructed to call PCP with any changes in condition or needs. Contacted for: Routine Telephonic Outreach Contact made with patient: No, left message. Jacquelyn Conley RN June 21, 2023 3:38 PM CDM Telephonic Outreach Provider Action/FYI CDM: CHF, CKD Left a message instructed to call PCP with any changes in condition or needs. Contacted for: Routine Telephonic Outreach Contact made with patient: No, left message. Jacquelyn Conley RN June 18, 2023 3:13 PM documented in this encounter [facility] 06-18-2023 Note HNO ID: [id number] Author: Jacquelyn Conley RN Service: ? Author Type: Registered Nurse Type: Progress Notes Filed: 06/21/2023 3:40 PM Note Text: CDM Telephonic Outreach Provider Action/FYI CDM: CHF, CKD Left a message instructed to call PCP with any changes in condition or needs. Contacted for: Routine Telephonic Outreach Contact made with patient: No, left message. Jacquelyn Conley RN June 18, 2023 3:13 PM [facility] 06-17-2023 Note Patient Outreach (AM [facility]) DARCY COVARRUBIAS ([id number]) 1935 M CHT Date Time Provider Department 06/17/23 JACQUELYN CON[place] [facility] [place] your visit today, we recorded the following information about you: Jacquelyn Conley RN 06/21/2023 3:40 PM Signed CDM Telephonic Outreach Provider Action/FYI CDM: CHF, CKD Left a message instructed to call PCP with any changes in condition or needs. Contacted for: Routine Telephonic Outreach Contact made with patient: No, left message. Jacquelyn Conley RN June 18, 2023 3:13 PM Jacquelyn Conley RN 06/21/2023 3:40 PM Signed CDM Telephonic Outreach Provider Action/FYI CDM: CHF, CKD Left a message instructed to call PCP with any changes in condition or needs. Contacted for: Routine Telephonic Outreach Contact made with patient: No, left message. Jacquelyn Conley RN June 21, 2023 3:38 PM Allergies As of Date: 06/17/2023 Noted Allergy Reaction INDOCIN (INDOMETHACIN SODIUM) 03/22/2012 8 - GI Upset NORVASC (AMLODIPINE BESYLATE) 12/16/2018 14 - Other: See Comments Comments: Dizziness NORLDGC-HZO-TJN REDUCTASE INHIBIT*07/10/2014 14 - Other: See Comments Comments: myalgia LISINOPRIL 12/12/2020 3 - Cough Date Reviewed: 04/26/2023 Reviewed by: Liliana De La Rosa Ma - Fully Assessed Reason for Visit: Community Monitoring Outreach [Other] Prescriptions as of 06/21/2023 - sodium bicarbonate 650 mg tablet Take 1 tablet by mouth twice daily. - potassium chloride SR (MICRO-K) 10 mEq CR capsule Take 2 capsules by mouth every Wednesday,Wednesday,Wednesday. Takes Wed/Wed/Wed with Torsemide - allopurinol (ZYLOPRIM) 100 mg tablet Take 2 tablets by mouth once daily. For gout. - magnesium oxide (MAG-OX) 400 mg (241.3 mg magnesium) tablet Take 1 tablet by mouth once daily. - pyridoxine, vitamin B6, (VITAMIN B-6) 100 mg tablet Take 1 tablet by mouth once daily. - torsemide (DEMADEX) 10 mg tablet Take 2 tablets by mouth every Wednesday,Wednesday,Wednesday. - benzonatate (TESSALON PERLES) 100 mg capsule Take 1-2 capsules by mouth three times daily as needed for cough. - Lacto 21-Bifido 7-N-T9-B6-B12 (UP4 PROBIOTICS MEN'S) 50 billion cell -90 mg-30 mcg cap Take 1 tablet by mouth every other day. - atorvastatin (LIPITOR) 40 mg tablet Take 1 tablet by mouth once daily. - Coenzyme K06-Mrinhpw E 100-100 mg cap Take by mouth. - loperamide (IMODIUM) 2 mg cap(s) Take 2 mg by mouth four times daily as needed. - nitroglycerin sublingual (NITROQUICK) 0.4 mg SL tablet Dissolve 0.4 mg under the tongue every 5 minutes as needed for chest pain. - sacubitril-valsartan (ENTRESTO) 49-51 mg tablet Take 1 tablet by mouth twice daily. - carvedilol (COREG) 25 mg tablet Take 12.5 mg by mouth twice daily with meals. - ascorbic acid, vitamin C, (VITAMIN C) 500 mg tablet Take 500 mg by mouth once daily. - Apple Cider Vinegar 500 mg tab Take by mouth. - ubidecarenone/vitamin E mixed (COQ10 SG 100 ORAL) Take by mouth once daily. - albuterol HFA (PROVENTIL HFA, VENTOLIN HFA) 90 mcg/actuation inhaler Inhale 2 Puffs as instructed every 4 hours as needed for wheezing/shortness of breath. - Cholecalciferol, Vitamin D3, 25 mcg (1,000 unit) cap Take 2 capsules by mouth once daily. - apixaban (ELIQUIS) 2.5 mg tab tab(s) Take 1 tablet by mouth twice daily. - cyanocobalamin (VITAMIN B-12) 1,000 mcg tab Take 1 tablet by mouth once daily. - Gdgxg-3-FWN-EPA-Fish Oil 1,000 mg (120 mg-180 mg) cap Take 2 g by mouth once daily. - PSYLLIUM HUSK, BULK, MISC Take 1 Packet by mouth once daily. Takes as needed Problem List As Of Date 06/17/2023 Noted Resolved Actinic Keratoses: Premalignant AK's [L57.0] 05/08/2011 08/11/2016 Solar Lentigines [L81.4] 05/08/2011 08/11/2016 Actinic skin damage [L57.8] 05/08/2011 08/11/2016 Other seborrheic keratosis [L82.1] 05/08/2011 08/11/2016 Xerosis cutis [L85.3] 05/08/2011 08/11/2016 PVC's (premature ventricular contractions) [I49*02/26/2012 Essential hypertension [I10] 02/26/2012 Mixed hyperlipidemia [E78.2] 02/26/2012 Neoplasm of uncertain behavior of skin [D48.5] 03/19/2012 08/11/2016 MVP (mitral valve prolapse) [I34.1] 04/15/2012 Postinflammatory skin changes [R23.8] 09/20/2012 08/11/2016 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] Hyperuricemia [E79.0] 01/09/2014 Complete rotator cuff tear of left shoulder [M7*06/12/2014 Coronary artery disease involving [place]*07/29/2015 S/P CABG (coronary artery bypass graft) [Z95.1] 2015 Hypokalemia [E87.6] 02/05/2016 01/29/2023 Osteoarthritis of spine with radiculopathy, lum*02/21/2016 History of permanent cardiac pacemaker placemen*09/03/2016 Paroxysmal atrial fibrillation (HCC) [I48.0] 09/03/2016 Chronic anticoagulation [Z79.01] 09/03/2016 12/16/2018 Carotid stenosis, asymptomatic [I65.29] 02/11/2017 Hyperglycemia [R73.9] 02/11/2017 Anemia of chronic disease [D63.8] 02/11/2017 A (more content not included)... [facility] 05-16-2023 Note HNO ID: [id number] Author: Jacquelyn Conley RN Service: ? Author Type: Registered Nurse Type: Progress Notes Filed: 05/16/2023 3:45 PM Note Text: CDM Telephonic Outreach Provider Action/FYI CDM CHF, CKD Called Pt to verify symptoms and needs, line was busy, unable to leave a message. Contacted for: Routine Telephonic Outreach Contact made with patient: No, unable to leave message. Third attempt - patient is unable to be reached. Jacquelyn Conley RN May 16, 2023 3:43 PM [facility] 05-16-2023 History of Present illness Narrative CDM Telephonic Outreach Provider Action/FYI CDM CHF, CKD Called Pt to verify symptoms and needs, line was busy, unable to leave a message. Contacted for: Routine Telephonic Outreach Contact made with patient: No, unable to leave message. Third attempt - patient is unable to be reached. Jacquelyn Conley RN May 16, 2023 3:43 PM CDM Telephonic Outreach Provider Action/FYI CDM CHF, CKD Called Pt to verify symptoms and needs, line was busy, unable to leave a message. Contacted for: Routine Telephonic Outreach Contact made with patient: No, unable to leave message. Will reattempt call Jacquelyn Conley RN May 10, 2023 4:28 PM CDM Telephonic Outreach Provider Action/ CDM CHF, CKD Called Pt to verify symptoms and needs, line was busy, unable to leave a message. Contacted for: Routine Telephonic Outreach Contact made with patient: No, unable to leave message. Will reattempt call Jacquelyn Conley RN May 07, 2023 1:31 PM documented in this encounter [facility] 05-10-2023 Note HNO ID: [id number] Author: Jacquelyn Conley RN Service: ? Author Type: Registered Nurse Type: Progress Notes Filed: 05/16/2023 3:45 PM Note Text: CDM Telephonic Outreach Provider Action/FYI CDM CHF, CKD Called Pt to verify symptoms and needs, line was busy, unable to leave a message. Contacted for: Routine Telephonic Outreach Contact made with patient: No, unable to leave message. Will reattempt call Jacquelyn Conley RN May 10, 2023 4:28 PM [facility] 05-07-2023 Note HNO ID: [id number] Author: Jacquelyn Conley RN Service: ? Author Type: Registered Nurse Type: Progress Notes Filed: 05/16/2023 3:45 PM Note Text: CDM Telephonic Outreach Provider Action/ CDM CHF, CKD Called Pt to verify symptoms and needs, line was busy, unable to leave a message. Contacted for: Routine Telephonic Outreach Contact made with patient: No, unable to leave message. Will reattempt call Jacquelyn Conley RN May 07, 2023 1:31 PM [facility] 05-07-2023 Note Patient Outreach (AM B[facility]) DARCY COVARRUBIAS ([id number]) 1935 M CHT Date Time Provider Department [facility]/07[facility] [place] your visit today, we recorded the following information about you: Jacquelyn Conley RN 05/16/2023 3:45 PM Signed CDM Telephonic Outreach Provider Action/ CDM CHF, CKD Called Pt to verify symptoms and needs, line was busy, unable to leave a message. Contacted for: Routine Telephonic Outreach Contact made with patient: No, unable to leave message. Will reattempt call Jacquelyn Conley RN May 07, 2023 1:31 PM Jacquelyn Conley RN 05/16/2023 3:45 PM Signed CDM Telephonic Outreach Provider Esther/MANDO DAVENPORT CHF, CKD Called Pt to verify symptoms and needs, line was busy, unable to leave a message. Contacted for: Routine Telephonic Outreach Contact made with patient: No, unable to leave message. Will reattempt call Jacquelyn Conley RN May 10, 2023 4:28 PM Jacquelyn Conley RN 05/16/2023 3:45 PM Signed CDM Telephonic Outreach Provider Esther/MANDO DAVENPORT CHF, CKD Called Pt to verify symptoms and needs, line was busy, unable to leave a message. Contacted for: Routine Telephonic Outreach Contact made with patient: No, unable to leave message. Third attempt - patient is unable to be reached. Jacquelyn Conley RN May 16, 2023 3:43 PM Allergies As of Date: 05/07/2023 Noted Allergy Reaction INDOCIN (INDOMETHACIN SODIUM) 03/22/2012 8 - GI Upset NORVASC (AMLODIPINE BESYLATE) 12/16/2018 14 - Other: See Comments Comments: Dizziness [id number] REDUCTASE INHIBIT*07/10/2014 14 - Other: See Comments Comments: myalgia LISINOPRIL 12/12/2020 3 - Cough Date Reviewed: 04/26/2023 Reviewed by: Liliana De La Rosa Ma - Fully Assessed Reason for Visit: Community Monitoring Outreach [Other] Prescriptions as of 05/16/2023 - potassium chloride SR (MICRO-K) 10 mEq CR capsule Take 2 capsules by mouth every Wednesday,Wednesday,Wednesday. Takes Wed/Wed/Wed with Torsemide - allopurinol (ZYLOPRIM) 100 mg tablet Take 2 tablets by mouth once daily. For gout. - magnesium oxide (MAG-OX) 400 mg (241.3 mg magnesium) tablet Take 1 tablet by mouth once daily. - pyridoxine, vitamin B6, (VITAMIN B-6) 100 mg tablet Take 1 tablet by mouth once daily. - torsemide (DEMADEX) 10 mg tablet Take 2 tablets by mouth every Wednesday,Wednesday,Wednesday. - benzonatate (TESSALON PERLES) 100 mg capsule Take 1-2 capsules by mouth three times daily as needed for cough. - Lacto 21-Bifido 5-T-W9-B6-B12 (UP4 PROBIOTICS MEN'S) 50 billion cell -90 mg-30 mcg cap Take 1 tablet by mouth every other day. - atorvastatin (LIPITOR) 40 mg tablet Take 1 tablet by mouth once daily. - Coenzyme I19-Tttphsv E 100-100 mg cap Take by mouth. - loperamide (IMODIUM) 2 mg cap(s) Take 2 mg by mouth four times daily as needed. - nitroglycerin sublingual (NITROQUICK) 0.4 mg SL tablet Dissolve 0.4 mg under the tongue every 5 minutes as needed for chest pain. - sacubitril-valsartan (ENTRESTO) 49-51 mg tablet Take 1 tablet by mouth twice daily. - carvedilol (COREG) 25 mg tablet Take 12.5 mg by mouth twice daily with meals. - ascorbic acid, vitamin C, (VITAMIN C) 500 mg tablet Take 500 mg by mouth once daily. - Apple Cider Vinegar 500 mg tab Take by mouth. - ubidecarenone/vitamin E mixed (COQ10 SG 100 ORAL) Take by mouth once daily. - albuterol HFA (PROVENTIL HFA, VENTOLIN HFA) 90 mcg/actuation inhaler Inhale 2 Puffs as instructed every 4 hours as needed for wheezing/shortness of breath. - Cholecalciferol, Vitamin D3, 25 mcg (1,000 unit) cap Take 2 capsules by mouth once daily. - apixaban (ELIQUIS) 2.5 mg tab tab(s) Take 1 tablet by mouth twice daily. - cyanocobalamin (VITAMIN B-12) 1,000 mcg tab Take 1 tablet by mouth once daily. - Wloqt-2-INT-EPA-Fish Oil 1,000 mg (120 mg-180 mg) cap Take 2 g by mouth once daily. - PSYLLIUM HUSK, BULK, MISC Take 1 Packet by mouth once daily. Takes as needed Problem List As Of Date 05/07/2023 Noted Resolved Actinic Keratoses: Premalignant AK's [L57.0] 05/08/2011 08/11/2016 Solar Lentigines [L81.4] 05/08/2011 08/11/2016 Actinic skin damage [L57.8] 05/08/2011 08/11/2016 Other seborrheic keratosis [L82.1] 05/08/2011 08/11/2016 Xerosis cutis [L85.3] 05/08/2011 08/11/2016 PVC's (premature ventricular contractions) [I49*02/26/2012 Essential hypertension [I10] 02/26/2012 Mixed hyperlipidemia [E78.2] 02/26/2012 Neoplasm of uncertain behavior of skin [D48.5] 03/19/2012 08/11/2016 MVP (mitral valve prolapse) [I34.1] 04/15/2012 Postinflammatory skin changes [R23.8] 09/20/2012 08/11/2016 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] Hyperuricemia [E79.0] 01/09/2014 Complete rotator cuff tear of left shoulder [M7*06/12/2014 Coronary artery disease involving [place]*07/29/2015 S/P CABG (coronary artery bypass graft) [Z95.1] 2015 Hypokalemia [E87.6] 04 (more content not included)... [facility] 05-06-2023 Note HNO ID: [id number] Author: Jacquelyn Conley RN Service: ? Author Type: Registered Nurse Type: Progress Notes Filed: 05/06/2023 1:15 PM Note Text: CDM Telephonic Outreach Provider Action/FYI CDM: CHF, CKD Called home number, unable to leave a message to verify symptom status and needs. Contacted for: Routine Telephonic Outreach Contact made with patient: No, unable to leave message. Will reattempt call Jacquelyn Conley RN May 06, 2023 1:14 PM [facility] 05-06-2023 History of Present illness Narrative CDM Telephonic Outreach Provider Action/FYI CDM: CHF, CKD Called home number, unable to leave a message to verify symptom status and needs. Contacted for: Routine Telephonic Outreach Contact made with patient: No, unable to leave message. Will reattempt call Jacquelyn Conley RN May 06, 2023 1:14 PM CDM Telephonic Outreach Provider Action/FYI CDM: CHF, CKD Called home number, unable to leave a message to verify symptom status and needs. Contacted for: Routine Telephonic Outreach Contact made with patient: No, unable to leave message. Will reattempt call Jacquelyn Conley RN May 05, 2023 3:42 PM documented in this encounter [facility] 05-05-2023 Note HNO ID: [id number] Author: Jacquelyn Conley RN Service: ? Author Type: Registered Nurse Type: Progress Notes Filed: 05/06/2023 1:15 PM Note Text: CDM Telephonic Outreach Provider Action/FYI CDM: CHF, CKD Called home number, unable to leave a message to verify symptom status and needs. Contacted for: Routine Telephonic Outreach Contact made with patient: No, unable to leave message. Will reattempt call Jacquelyn Conley RN May 05, 2023 3:42 PM [facility] 05-05-2023 Note Patient Outreach (AM BC) DARCY COVARRUBIAS ([id number]) 1935 M T Date Time Provider Department 05/05/23 JACQUELYN CONLEYMonique During your visit today, we recorded the following information about you: Jacquelyn Conley RN 05/06/2023 1:15 PM Signed CDM Telephonic Outreach Provider Action/FYI CDM: CHF, CKD Called home number, unable to leave a message to verify symptom status and needs. Contacted for: Routine Telephonic Outreach Contact made with patient: No, unable to leave message. Will reattempt call Jacquelyn Conley RN May 05, 2023 3:42 PM Jacquelyn Conley RN 05/06/2023 1:15 PM Signed CDM Telephonic Outreach Provider Esther/MANDO CDM: CHF, CKD Called home number, unable to leave a message to verify symptom status and needs. Contacted for: Routine Telephonic Outreach Contact made with patient: No, unable to leave message. Will reattempt call Jacquelyn Conley RN May 06, 2023 1:14 PM Allergies As of Date: 05/05/2023 Noted Allergy Reaction INDOCIN (INDOMETHACIN SODIUM) 03/22/2012 8 - GI Upset NORVASC (AMLODIPINE BESYLATE) 12/16/2018 14 - Other: See Comments Comments: Dizziness [id number] REDUCTASE INHIBIT*07/10/2014 14 - Other: See Comments Comments: myalgia LISINOPRIL 12/12/2020 3 - Cough Date Reviewed: 04/26/2023 Reviewed by: Liliana De La Rosa Ma - Fully Assessed Reason for Visit: Community Monitoring Outreach [Other] Prescriptions as of 05/06/2023 - potassium chloride SR (MICRO-K) 10 mEq CR capsule Take 2 capsules by mouth every Wednesday,Wednesday,Wednesday. Takes Wed/Wed/Wed with Torsemide - allopurinol (ZYLOPRIM) 100 mg tablet Take 2 tablets by mouth once daily. For gout. - magnesium oxide (MAG-OX) 400 mg (241.3 mg magnesium) tablet Take 1 tablet by mouth once daily. - pyridoxine, vitamin B6, (VITAMIN B-6) 100 mg tablet Take 1 tablet by mouth once daily. - torsemide (DEMADEX) 10 mg tablet Take 2 tablets by mouth every Wednesday,Wednesday,Wednesday. - benzonatate (TESSALON PERLES) 100 mg capsule Take 1-2 capsules by mouth three times daily as needed for cough. - Lacto 21-Bifido 0-K-W9-B6-B12 (UP4 PROBIOTICS MEN'S) 50 billion cell -90 mg-30 mcg cap Take 1 tablet by mouth every other day. - atorvastatin (LIPITOR) 40 mg tablet Take 1 tablet by mouth once daily. - Coenzyme R12-Jbxjlvi E 100-100 mg cap Take by mouth. - loperamide (IMODIUM) 2 mg cap(s) Take 2 mg by mouth four times daily as needed. - nitroglycerin sublingual (NITROQUICK) 0.4 mg SL tablet Dissolve 0.4 mg under the tongue every 5 minutes as needed for chest pain. - sacubitril-valsartan (ENTRESTO) 49-51 mg tablet Take 1 tablet by mouth twice daily. - carvedilol (COREG) 25 mg tablet Take 12.5 mg by mouth twice daily with meals. - ascorbic acid, vitamin C, (VITAMIN C) 500 mg tablet Take 500 mg by mouth once daily. - Apple Cider Vinegar 500 mg tab Take by mouth. - ubidecarenone/vitamin E mixed (COQ10 SG 100 ORAL) Take by mouth once daily. - albuterol HFA (PROVENTIL HFA, VENTOLIN HFA) 90 mcg/actuation inhaler Inhale 2 Puffs as instructed every 4 hours as needed for wheezing/shortness of breath. - Cholecalciferol, Vitamin D3, 25 mcg (1,000 unit) cap Take 2 capsules by mouth once daily. - apixaban (ELIQUIS) 2.5 mg tab tab(s) Take 1 tablet by mouth twice daily. - cyanocobalamin (VITAMIN B-12) 1,000 mcg tab Take 1 tablet by mouth once daily. - Mcibf-9-CFD-EPA-Fish Oil 1,000 mg (120 mg-180 mg) cap Take 2 g by mouth once daily. - PSYLLIUM HUSK, BULK, MISC Take 1 Packet by mouth once daily. Takes as needed Problem List As Of Date 05/05/2023 Noted Resolved Actinic Keratoses: Premalignant AK's [L57.0] 05/08/2011 08/11/2016 Solar Lentigines [L81.4] 05/08/2011 08/11/2016 Actinic skin damage [L57.8] 05/08/2011 08/11/2016 Other seborrheic keratosis [L82.1] 05/08/2011 08/11/2016 Xerosis cutis [L85.3] 05/08/2011 08/11/2016 PVC's (premature ventricular contractions) [I49*02/26/2012 Essential hypertension [I10] 02/26/2012 Mixed hyperlipidemia [E78.2] 02/26/2012 Neoplasm of uncertain behavior of skin [D48.5] 03/19/2012 08/11/2016 MVP (mitral valve prolapse) [I34.1] 04/15/2012 Postinflammatory skin changes [R23.8] 09/20/2012 08/11/2016 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] Hyperuricemia [E79.0] 01/09/2014 Complete rotator cuff tear of left shoulder [M7*06/12/2014 Coronary artery disease involving [place]*07/29/2015 S/P CABG (coronary artery bypass graft) [Z95.1] 2015 Hypokalemia [E87.6] 02/05/2016 01/29/2023 Osteoarthritis of spine with radiculopathy, lum*02/21/2016 History of permanent cardiac pacemaker placemen*09/03/2016 Paroxysmal atrial fibrillation (HCC) [I48.0] 09/03/2016 Chronic anticoagulation [Z79.01] 09/03/2016 12/16/2018 Carotid stenosis, asymptomatic [I65.29] 02/11/2017 Hyperglycemia [R73.9] 02/11/2017 Anemia of chronic disease [D63.8] 02/11/2017 Atria (more content not included)... [facility] 04-26-2023 Note HNO ID: [id number] Author: Cat Chavira MD Service: ? Author Type: Physician Type: Progress Notes Filed: 04/26/2023 12:37 PM Note Text: [facility] SERVICE DATE: 04/26/2023 SERVICE TIME: 11:24 AM Some elements of this note have been copied from my clinic note from 02/09/2023 and have been updated where appropriate. This note has been edited for changes in the patient's condition. All reflect current evaluation, analysis and medical decision-making from today, 04/26/2023. CHIEF COMPLAINT: CKD follow-up HPI: Mr. 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 Virtual visit on 02/09/2023. 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 Last BMP on 02/23/2023 with creatinine 2.16 (GFR 29) - at baseline. Today patient reports overall feeling well. He endorses intermittent episodes of dizziness with position change. His weight remains stable, currently 140 pounds with dry weight being 140 to 145 pounds. LE edema is minimal. BP at home is well controlled and usually 120/80. He did not take his BP meds today so his BP is not at goal, and also HR is elevated. He is on Entresto, Coreg for BP management. He takes torsemide along with potassium on MWF. Due to hydronephrosis he was seen by urology last in 07/2022, no follow-up. 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 Paroxysmal Atrial Fibrillation (Hcc) Carotid Stenosis, Asymptomatic Hyperglycemia Anemia of Chronic Disease Stage 3b Chronic Kidney Disease (Hcc) Lumbar Spinal Stenosis History of Subdural Hematoma Non-Rheumatic Mitral Regurgitation 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 Takes Wed/Wed/Wed with Torsemide allopurinol (ZYLOPRIM) 100 mg tablet Take 2 tablets by mouth once daily. For gout. magnesium oxide (MAG-OX) 400 mg (241.3 mg magnesium) tablet Take 1 tablet by mouth once daily. pyridoxine, vitamin B6, (VITAMIN B-6) 100 mg tablet Take 1 tablet by mouth once daily. torsemide (DEMADEX) 10 mg tablet Take 2 tablets by mouth every Wednesday,Wednesday,Wednesday. (Patient taking differently: Take 10 mg by mouth every Wednesday,Wednesday,Wednesday.) Lacto 21-Bifido 3-O-U7-B6-B12 (UP4 PROBIOTICS MEN'S) 50 billion cell -90 mg-30 mcg cap Take 1 tablet by mouth every other day. atorvastatin (LIPITOR) 40 mg tablet Take 1 tablet by mouth once daily. Coenzyme X66-Tfdwcxu E 100-100 mg cap Take by mouth. loperamide (IMODIUM) 2 mg cap(s) Take 2 mg by mouth four times daily as needed. sacubitril-valsartan (ENTRESTO) 49-51 mg tablet Take 1 tablet by mouth twice daily. carvedilol (COREG) 25 mg tablet Take 12.5 mg by mouth twice daily with meals. ascorbic acid, vitamin C, (VITAMIN C) 500 mg tablet Take 500 mg by mouth once daily. Apple Cider Vinegar 500 mg tab Take by mouth. Cholecalciferol, Vitamin D3, 25 mcg (1,000 unit) cap Take 2 capsules by mouth once daily. apixaban (ELIQUIS) 2.5 mg tab tab(s) Take 1 tablet by mouth twice daily. cyanocobalamin (VITAMIN B-12) 1,000 mcg tab Take 1 tablet by mouth once daily. Nynkl-3-QDB-EPA-Fish Oil 1,000 mg (120 mg-180 mg) cap Take 2 g by mouth once daily. PSYLLIUM HUSK, BULK, MISC Take 1 Packet by mouth once daily. Takes as needed benzonatate (TESSALON PERLES) 100 mg capsule Take 1-2 capsules by mouth three times daily as needed for cough. (Patient not taking: No sig reported) nitroglycerin sublingual (NITROQUICK) 0.4 mg SL tablet Dissolve 0.4 mg under the tongue every 5 minutes as needed for chest pain. ubidecarenone/vitamin E mixed (COQ10 SG 100 ORAL) Take by mouth once daily. albuterol HFA (PROVENTIL HFA, VENTOLIN HFA) 90 mcg/actuation inhaler Inhale 2 Puffs as instructed every 4 hours as needed for wheezing/shortness of breath. ALLERGIES: ALLERGIES Allergen Reactions Indocin [Indometha (more content not included)... [facility] 04-01-2023 Note HNO ID: [id number] Author: Jacquelyn Conley RN Service: ? Author Type: Registered Nurse Type: Progress Notes Filed: 04/01/2023 6:11 PM Note Text: CDM Telephonic Outreach Provider Action/FYI CDM: CHF, CKD Pt noted he does stretching exercises in AM for spinal stenosis. BP 119/80 Denies new or worsening symptoms, instructed to call PCP with any changes in symptoms, concerns or needs. Pt verbalized understanding, and noted appreciation for the call. Contacted for: Routine Telephonic Outreach Contact made with patient: Yes Patient identified by name and date of . Discussed care with patient and spouse Are you experiencing any new or worsening symptoms you need to talk about today? No Disease Specific Do you check your blood pressure at home? Yes, Enter readings: BP 119/80 Do you have new or worsening shortness of breath with activity? No Do you have new or worsening trouble breathing while lying flat? No Do you have new or worsening swelling of legs, feet or ankles? No Do you feel like you are dehydrated for any reason, including not being able to eat or drink normally, or having less urine/much darker urine than normal for you? No Do you check your daily weight at home? Yes, Have you noticed a sudden gain in weight greater than three pounds in a day or three pounds in a week? No Based on nursing project coordinator, the following disposition is advised: No symptoms or symptoms present, not severe. Routed to: No Action Needed SEVEN Education Provided this Outreach: No Jacquelyn Conley RN April 01, 2023 6:03 PM [facility] 04-01-2023 History of Present illness Narrative CDM Telephonic Outreach Provider Action/FYI CDM: CHF, CKD Pt noted he does stretching exercises in AM for spinal stenosis. BP 119/80 Denies new or worsening symptoms, instructed to call PCP with any changes in symptoms, concerns or needs. Pt verbalized understanding, and noted appreciation for the call. Contacted for: Routine Telephonic Outreach Contact made with patient: Yes Patient identified by name and date of . Discussed care with patient and spouse Are you experiencing any new or worsening symptoms you need to talk about today? No Disease Specific Do you check your blood pressure at home? Yes, Enter readings: BP 119/80 Do you have new or worsening shortness of breath with activity? No Do you have new or worsening trouble breathing while lying flat? No Do you have new or worsening swelling of legs, feet or ankles? No Do you feel like you are dehydrated for any reason, including not being able to eat or drink normally, or having less urine/much darker urine than normal for you? No Do you check your daily weight at home? Yes, Have you noticed a sudden gain in weight greater than three pounds in a day or three pounds in a week? No Based on nursing project coordinator, the following disposition is advised: No symptoms or symptoms present, not severe. Routed to: No Action Needed SEVEN Education Provided this Outreach: No Jacquelyn Conley RN April 01, 2023 6:03 PM CDM Telephonic Outreach Provider Action/FYI CDM: CHF, CKD Left a message to verify symptom status, instructed to call PCP with any changes in condition or needs. Contacted for: Routine Telephonic Outreach Contact made with patient: No, left message. Jacquelyn Conley RN March 30, 2023 12:44 PM documented in this encounter [facility] 03-30-2023 Note HNO ID: [id number] Author: Jacquelyn Conley RN Service: ? Author Type: Registered Nurse Type: Progress Notes Filed: 04/01/2023 6:11 PM Note Text: CDM Telephonic Outreach Provider Action/FYI CDM: CHF, CKD Left a message to verify symptom status, instructed to call PCP with any changes in condition or needs. Contacted for: Routine Telephonic Outreach Contact made with patient: No, left message. Jacquelyn Conley RN March 30, 2023 12:44 PM [facility] 03-30-2023 Note Patient Outreach ([facility]) DARCY COVARRUBIAS ([id number]) 1935 M [facility] Date Time Provider Department 03/30/23 JACQUELYN CONLEY During your visit today, we recorded the following information about you: Jacquelyn Conley RN 04/01/2023 6:11 PM Signed CDM Telephonic Outreach Provider Action/FYI CDM: CHF, CKD Left a message to verify symptom status, instructed to call PCP with any changes in condition or needs. Contacted for: Routine Telephonic Outreach Contact made with patient: No, left message. Jacquelyn Conley RN March 30, 2023 12:44 PM Jacquelyn Conley RN 04/01/2023 6:11 PM Signed CDM Telephonic Outreach Provider Action/FYI CDM: CHF, CKD Pt noted he does stretching exercises in AM for spinal stenosis. BP 119/80 Denies new or worsening symptoms, instructed to call PCP with any changes in symptoms, concerns or needs. Pt verbalized understanding, and noted appreciation for the call. Contacted for: Routine Telephonic Outreach Contact made with patient: Yes Patient identified by name and date of . Discussed care with patient and spouse Are you experiencing any new or worsening symptoms you need to talk about today? No Disease Specific Do you check your blood pressure at home? Yes, Enter readings: BP 119/80 Do you have new or worsening shortness of breath with activity? No Do you have new or worsening trouble breathing while lying flat? No Do you have new or worsening swelling of legs, feet or ankles? No Do you feel like you are dehydrated for any reason, including not being able to eat or drink normally, or having less urine/much darker urine than normal for you? No Do you check your daily weight at home? Yes, Have you noticed a sudden gain in weight greater than three pounds in a day or three pounds in a week? No Based on nursing project coordinator, the following disposition is advised: No symptoms or symptoms present, not severe. Routed to: No Action Needed SEVEN Education Provided this Outreach: No Jacquelyn Conley RN April 01, 2023 6:03 PM Allergies As of Date: 03/30/2023 Noted Allergy Reaction INDOCIN (INDOMETHACIN SODIUM) 03/22/2012 8 - GI Upset NORVASC (AMLODIPINE BESYLATE) 12/16/2018 14 - Other: See Comments Comments: Dizziness [id number] REDUCTASE INHIBIT*07/10/2014 14 - Other: See Comments Comments: myalgia LISINOPRIL 12/12/2020 3 - Cough Date Reviewed: 02/02/2023 Reviewed by: Genet Higgins LPN - Fully Assessed Reason for Visit: Community Monitoring Outreach [Other] Prescriptions as of 04/01/2023 - potassium chloride SR (MICRO-K) 10 mEq CR capsule Take 2 capsules by mouth every Wednesday,Wednesday,Wednesday. Takes Wed/ with Torsemide - allopurinol (ZYLOPRIM) 100 mg tablet Take 2 tablets by mouth once daily. For gout. - magnesium oxide (MAG-OX) 400 mg (241.3 mg magnesium) tablet Take 1 tablet by mouth once daily. - pyridoxine, vitamin B6, (VITAMIN B-6) 100 mg tablet Take 1 tablet by mouth once daily. - torsemide (DEMADEX) 10 mg tablet Take 2 tablets by mouth every Wednesday,Wednesday,Wednesday. - benzonatate (TESSALON PERLES) 100 mg capsule Take 1-2 capsules by mouth three times daily as needed for cough. - Lacto 21-Bifido 1-V-R4-B6-B12 (UP4 PROBIOTICS MEN'S) 50 billion cell -90 mg-30 mcg cap Take 1 tablet by mouth once daily. - atorvastatin (LIPITOR) 40 mg tablet Take 1 tablet by mouth once daily. - Coenzyme P51-Zkkxsbm E 100-100 mg cap Take by mouth. - loperamide (IMODIUM) 2 mg cap(s) Take 2 mg by mouth four times daily as needed. - nitroglycerin sublingual (NITROQUICK) 0.4 mg SL tablet Dissolve 0.4 mg under the tongue every 5 minutes as needed for chest pain. - tamsulosin (FLOMAX) 0.4 mg Take 0.4 mg by mouth once daily. - sacubitril-valsartan (ENTRESTO) 49-51 mg tablet Take 1 tablet by mouth twice daily. - carvedilol (COREG) 25 mg tablet Take 12.5 mg by mouth twice daily with meals. - ascorbic acid, vitamin C, (VITAMIN C) 500 mg tablet Take 500 mg by mouth once daily. - Apple Cider Vinegar 500 mg tab Take by mouth. - ubidecarenone/vitamin E mixed (COQ10 SG 100 ORAL) Take by mouth once daily. - albuterol HFA (PROVENTIL HFA, VENTOLIN HFA) 90 mcg/actuation inhaler Inhale 2 Puffs as instructed every 4 hours as needed for wheezing/shortness of breath. - Cholecalciferol, Vitamin D3, 25 mcg (1,000 unit) cap Take 2 capsules by mouth once daily. - apixaban (ELIQUIS) 2.5 mg tab tab(s) Take 1 tablet by mouth twice daily. - cyanocobalamin (VITAMIN B-12) 1,000 mcg tab Take 1 tablet by mouth once daily. - Sckfa-4-DMP-EPA-Fish Oil 1,000 mg (120 mg-180 mg) cap Take 2 g by mouth once daily. - PSYLLIUM HUSK, BULK, MISC Take 1 Packet by mouth once daily. 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 [facility] 03-04-2023 Note HNO ID: [id number] Author: Jacquelyn Conley RN Service: ? Author Type: Registered Nurse Type: Progress Notes Filed: 03/04/2023 2:54 PM Note Text: CDM Telephonic Outreach Provider Action/FYI CDM: CHF, CKD 2nd call, left a message to verify symptom status, instructed to call PCP with any changes in condition or needs. Routine Telephonic Outreach Contact made with patient: No, left message. Jacquelyn Conley RN March 04, 2023 2:51 PM [facility] 03-04-2023 History of Present illness Narrative CDM Telephonic Outreach Provider Action/FYI CDM: CHF, CKD 2nd call, left a message to verify symptom status, instructed to call PCP with any changes in condition or needs. Routine Telephonic Outreach Contact made with patient: No, left message. Jacquelyn Conley RN March 04, 2023 2:51 PM CDM Telephonic Outreach Provider Action/FYI CDM: CHF, CKD Called Pt, left a message to verify symptom status, instructed to call PCP with any changes in condition or needs. Contacted for: Routine Telephonic Outreach Contact made with patient: No, left message. Jacquelyn Conley RN March 02, 2023 3:46 PM documented in this encounter [facility] 03-02-2023 Note HNO ID: [id number] Author: Jacquelyn Conley RN Service: ? Author Type: Registered Nurse Type: Progress Notes Filed: 03/04/2023 2:54 PM Note Text: CDM Telephonic Outreach Provider Action/FYI CDM: CHF, CKD Called Pt, left a message to verify symptom status, instructed to call PCP with any changes in condition or needs. Contacted for: Routine Telephonic Outreach Contact made with patient: No, left message. Jacquelyn Conley RN March 02, 2023 3:46 PM [facility] 03-02-2023 Note Patient Outreach ([facility]) DARCY COVARRUBIAS ([id number]) 1935 M T Date Time Provider Department 03/02/23 JACQUELYN CONLEY During your visit today, we recorded the following information about you: Jacquelyn Conley RN 03/04/2023 2:54 PM Signed CDM Telephonic Outreach Provider Action/FYI CDM: CHF, CKD Called Pt, left a message to verify symptom status, instructed to call PCP with any changes in condition or needs. Contacted for: Routine Telephonic Outreach Contact made with patient: No, left message. Jacquelyn Conley RN March 02, 2023 3:46 PM Jacquelyn Conley RN 03/04/2023 2:54 PM Signed CDM Telephonic Outreach Provider Action/FYI CDM: CHF, CKD 2nd call, left a message to verify symptom status, instructed to call PCP with any changes in condition or needs. Routine Telephonic Outreach Contact made with patient: No, left message. Jacquelyn Conley RN March 04, 2023 2:51 PM Allergies As of Date: 03/02/2023 Noted Allergy Reaction INDOCIN (INDOMETHACIN SODIUM) 03/22/2012 8 - GI Upset NORVASC (AMLODIPINE BESYLATE) 12/16/2018 14 - Other: See Comments Comments: Dizziness [id number]-[id number]-VZC REDUCTASE INHIBIT*07/10/2014 14 - Other: See Comments Comments: myalgia LISINOPRIL 12/12/2020 3 - Cough Date Reviewed: 02/02/2023 Reviewed by: Genet Higgins LPN - Fully Assessed Reason for Visit: Community Monitoring Outreach [Other] Prescriptions as of 03/04/2023 - potassium chloride SR (MICRO-K) 10 mEq CR capsule Take 2 capsules by mouth every Wednesday,Wednesday,Wednesday. Takes Wed/Wed/Wed with Torsemide - allopurinol (ZYLOPRIM) 100 mg tablet Take 2 tablets by mouth once daily. For gout. - magnesium oxide (MAG-OX) 400 mg (241.3 mg magnesium) tablet Take 1 tablet by mouth once daily. - pyridoxine, vitamin B6, (VITAMIN B-6) 100 mg tablet Take 1 tablet by mouth once daily. - torsemide (DEMADEX) 10 mg tablet Take 2 tablets by mouth every Wednesday,Wednesday,Wednesday. - benzonatate (TESSALON PERLES) 100 mg capsule Take 1-2 capsules by mouth three times daily as needed for cough. - Lacto 21-Bifido 1-D-L9-B6-B12 (UP4 PROBIOTICS MEN'S) 50 billion cell -90 mg-30 mcg cap Take 1 tablet by mouth once daily. - atorvastatin (LIPITOR) 40 mg tablet Take 1 tablet by mouth once daily. - Coenzyme J16-Kslxqyc E 100-100 mg cap Take by mouth. - loperamide (IMODIUM) 2 mg cap(s) Take 2 mg by mouth four times daily as needed. - nitroglycerin sublingual (NITROQUICK) 0.4 mg SL tablet Dissolve 0.4 mg under the tongue every 5 minutes as needed for chest pain. - tamsulosin (FLOMAX) 0.4 mg Take 0.4 mg by mouth once daily. - sacubitril-valsartan (ENTRESTO) 49-51 mg tablet Take 1 tablet by mouth twice daily. - carvedilol (COREG) 25 mg tablet Take 12.5 mg by mouth twice daily with meals. - ascorbic acid, vitamin C, (VITAMIN C) 500 mg tablet Take 500 mg by mouth once daily. - Apple Cider Vinegar 500 mg tab Take by mouth. - ubidecarenone/vitamin E mixed (COQ10 SG 100 ORAL) Take by mouth once daily. - albuterol HFA (PROVENTIL HFA, VENTOLIN HFA) 90 mcg/actuation inhaler Inhale 2 Puffs as instructed every 4 hours as needed for wheezing/shortness of breath. - Cholecalciferol, Vitamin D3, 25 mcg (1,000 unit) cap Take 2 capsules by mouth once daily. - apixaban (ELIQUIS) 2.5 mg tab tab(s) Take 1 tablet by mouth twice daily. - cyanocobalamin (VITAMIN B-12) 1,000 mcg tab Take 1 tablet by mouth once daily. - Sfmrw-7-HVC-EPA-Fish Oil 1,000 mg (120 mg-180 mg) cap Take 2 g by mouth once daily. - PSYLLIUM HUSK, BULK, MISC Take 1 Packet by mouth once daily. Takes as needed Problem List As Of Date 03/02/2023 Noted Resolved Actinic Keratoses: Premalignant AK's [L57.0] 05/08/2011 08/11/2016 Solar Lentigines [L81.4] 05/08/2011 08/11/2016 Actinic skin damage [L57.8] 05/08/2011 08/11/2016 Other seborrheic keratosis [L82.1] 05/08/2011 08/11/2016 Xerosis cutis [L85.3] 05/08/2011 08/11/2016 PVC's (premature ventricular contractions) [I49*02/26/2012 Essential hypertension [I10] 02/26/2012 Mixed hyperlipidemia [E78.2] 02/26/2012 Neoplasm of uncertain behavior of skin [D48.5] 03/19/2012 08/11/2016 MVP (mitral valve prolapse) [I34.1] 04/15/2012 Postinflammatory skin changes [R23.8] 09/20/2012 08/11/2016 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] Hyperuricemia [E79.0] 01/09/2014 Complete rotator cuff tear of left shoulder [M7*06/12/2014 Coronary artery disease involving [place]*07/29/2015 S/P CABG (coronary artery bypass graft) [Z95.1] 2015 Hypokalemia [E87.6] 02/05/2016 01/29/2023 Osteoarthritis of spine with radiculopathy, lum*02/21/2016 History of permanent cardiac pacemaker placemen*09/03/2016 Paroxysmal atrial fibrillation (HCC) [I48.0] 09/03/2016 Chronic anticoagulation [Z79.01] 09/03/2016 12/16/2018 Carotid stenosis, asymptomatic [I65.29] 02/11/2017 Hyperglycemia [R73.9] 02/11/2017 Anemia o (more content not included)... [facility] 02-09-2023 Note HNO ID: [id number] Author: Cat Chavira MD Service: ? Author Type: Physician Type: Progress Notes Filed: 02/09/2023 11:24 PM Note Text: AMBULATORY TELEPHONE VISIT Darcy Covarrubias has consented to this telephone encounter. Persons Present: patient and patient's spouse/significant other Chief Complaint/Reason: CKD follow-up HPI: Mr. Covarrubias is a 87 year old male with PMH of CKD stage IIIa, mild bilateral chronic stable hydronephrosis. HTN, combined CHF with EF 20% (03/2022), chronic afib/flutter, chronic diarrhea, CAD status post CABG, HLD, bradycardia status post pacemaker placement, intracranial bleed due to fall, who presents for CKD follow up. For full CKD history please refer to my consult note on 07/10/2022. 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 [place] UA. Today patient does not have active complaints. He states that he is at his baseline health. He is working with home therapy. Reports being at dry weight of 145 pounds. He is home BP is well controlled and 120/60-70 mmHg. He continues taking torsemide 10 mg MWF, as well as Entresto and Coreg 25 mg twice daily. Patient also takes potassium 20 mEq on TTSatSu per cardiology recommendations. His last BMP on 02/02/2023 showed creatinine 2.37 (GFR 26), acidosis with bicarbonate 18, and hyperkalemia with potassium 5.8. Data Reviewed: Most recent labs and imaging results. Glucose (mg/dL) Date Value 02/02/2023 100 10/21/2021 97 Potassium (mmol/L) Date Value 02/02/2023 5.8 10/21/2021 3.6 Sodium (mmol/L) Date Value 02/02/2023 138 10/21/2021 142 Chloride (mmol/L) Date Value 02/02/2023 109 10/21/2021 107 CO2 (mmol/L) Date Value 02/02/2023 18 10/21/2021 23 Creatinine (mg/dL) Date Value 02/02/2023 2.37 10/21/2021 1.14 BUN (mg/dL) Date Value 02/02/2023 62 10/21/2021 17 Anion Gap (mmol/L) Date Value 02/02/2023 11 10/21/2021 12 Calcium (mg/dL) Date Value 10/21/2021 9.7 Calcium, Total (mg/dL) Date Value 02/02/2023 9.8 pH, Urine Date Value Ref Range Status 07/28/2022 6.0 5.0 - 8.0 Final Specific Lenore, Ur Date Value Ref Range Status 07/28/2022 1.012 1.005 - 1.030 Final Glucose, Urine Date Value Ref Range Status 07/28/2022 Negative Negative Final Bilirubin, Urine Date Value Ref Range Status 07/28/2022 Negative Negative Final Ketones, Urine Date Value Ref Range Status 07/28/2022 Negative Negative Final Hemoglobin/Blood,Ur Date Value Ref Range Status 07/28/2022 Negative Negative Final Protein, Urine Date Value Ref Range Status 07/28/2022 Negative Negative Final Urobilinogen Date Value Ref Range Status 07/28/2022 Negative Negative Final Nitrites Date Value Ref Range Status 07/28/2022 Negative Negative Final WBC, Urine Date Value Ref Range Status 07/28/2022 0-5 /HPF 0-5 /HPF Final Assessment: (N18.32) Stage 3b chronic kidney disease (HCC) (primary encounter diagnosis) (E87.5) Hyperkalemia (I10) Essential hypertension (I50.42) Chronic 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) (N13.30) Hydronephrosis, unspecified hydronephrosis type (R60.9) Edema, unspecified type Plan: -Non-proteinuric slowly progressing CKD stage IIIb/IV likely due to CRS +/- obstructive uropathy. Baseline Cr fluctuates depending on volume status, but lately has been ~2.0-2.5 -Kidney US in 04/2022 and again in 07/16 to with evidence of stable mild bilateral hydronephrosis, patient follows with urology -SPEP negative for M protein -Continue daily weight checks and torsemide 10 mg on MWF -Given hyperkalemia on last several blood checks, will change potassium supplementation 20 mEq on TTSatSu to 20 mEq on MWF (to be taken with torsemide). We will repeat BMP in 2 weeks and decide if any further changes needed -We will repeat RFP acidosis noted on last BMP, will reassess on next blood draw, and if still persist will plan to start sodium bicarbonate -RTC in 2-3 months with labs prior to appointment Total Time Spent: 25 minutes Cat Chavira MD [facility] 02-08-2023 Note HNO ID: [id number] Author: Jacquelyn Conley RN Service: ? Author Type: Registered Nurse Type: Progress Notes Filed: 02/08/2023 6:13 PM Note Text: CDM Telephonic Outreach Provider Action/FYI CDM: CHF, CKD Pt denies new or worsening symptoms or needs, legs gets sores, uses a walking stick as needed. BP 122/60, Pulse Oximeter 98%, Temp 97.6 Contacted for: Routine Telephonic Outreach Contact made with patient: Yes Patient identified by name and date of . Discussed care with patient and spouse Are you experiencing any new or worsening symptoms you need to talk about today? No Disease Specific Do you check your blood pressure at home? Yes, Enter readings: 122/60, Pulse Oximeter 98%, Temp 97.6 Do you have new or worsening shortness of breath with activity? No Do you have new or worsening trouble breathing while lying flat? No Do you have new or worsening swelling of legs, feet or ankles? No Do you feel like you are dehydrated for any reason, including not being able to eat or drink normally, or having less urine/much darker urine than normal for you? No Do you check your daily weight at home? Yes, Have you noticed a sudden gain in weight greater than three pounds in a day or three pounds in a week? No Based on nursing project coordinator, the following disposition is advised: Symptoms present, not severe. Routed to: No Action Needed SEVEN Education Provided this Outreach: No Jacquelyn Conley RN February 08, 2023 6:05 PM [facility] 02-08-2023 History of Present illness Narrative CDM Telephonic Outreach Provider Action/FYI CDM: CHF, CKD Pt denies new or worsening symptoms or needs, legs gets sores, uses a walking stick as needed. BP 122/60, Pulse Oximeter 98%, Temp 97.6 Contacted for: Routine Telephonic Outreach Contact made with patient: Yes Patient identified by name and date of . Discussed care with patient and spouse Are you experiencing any new or worsening symptoms you need to talk about today? No Disease Specific Do you check your blood pressure at home? Yes, Enter readings: 122/60, Pulse Oximeter 98%, Temp 97.6 Do you have new or worsening shortness of breath with activity? No Do you have new or worsening trouble breathing while lying flat? No Do you have new or worsening swelling of legs, feet or ankles? No Do you feel like you are dehydrated for any reason, including not being able to eat or drink normally, or having less urine/much darker urine than normal for you? No Do you check your daily weight at home? Yes, Have you noticed a sudden gain in weight greater than three pounds in a day or three pounds in a week? No Based on nursing project coordinator, the following disposition is advised: Symptoms present, not severe. Routed to: No Action Needed SEVEN Education Provided this Outreach: No Jacquelyn Conley RN February 08, 2023 6:05 PM CDM Telephonic Outreach Provider Action/FYI CDM: CHF, CKD Left a message to verify symptom status and needs, Instructed to call PCP with any changes in symptoms or condition Contacted for: Routine Telephonic Outreach Contact made with patient: No, left message. Jacquelyn Conley RN February 08, 2023 11:12 AM documented in this encounter [facility] 02-05-2023 Note HNO ID: [id number] Author: Jacquelyn Conley RN Service: ? Author Type: Registered Nurse Type: Progress Notes Filed: 02/08/2023 6:13 PM Note Text: CDM Telephonic Outreach Provider Action/FYI CDM: CHF, CKD Left a message to verify symptom status and needs, Instructed to call PCP with any changes in symptoms or condition Contacted for: Routine Telephonic Outreach Contact made with patient: No, left message. Jacquelyn Conley RN February 08, 2023 11:12 AM [facility] 02-05-2023 Note Patient Outreach ([facility]) DARCY COVARRUBIAS ([id number]) 1935 M T Date Time Provider Department 02/05/23 JACQUELYN CONLEY During your visit today, we recorded the following information about you: Jacquelyn Conley RN 02/08/2023 6:13 PM Signed CDM Telephonic Outreach Provider Action/FYI CDM: CHF, CKD Left a message to verify symptom status and needs, Instructed to call PCP with any changes in symptoms or condition Contacted for: Routine Telephonic Outreach Contact made with patient: No, left message. Jacquelyn Conley RN February 08, 2023 11:12 AM Jacquelyn Conley RN 02/08/2023 6:13 PM Signed CDM Telephonic Outreach Provider Action/FYI CDM: CHF, CKD Pt denies new or worsening symptoms or needs, legs gets sores, uses a walking stick as needed. BP 122/60, Pulse Oximeter 98%, Temp 97.6 Contacted for: Routine Telephonic Outreach Contact made with patient: Yes Patient identified by name and date of . Discussed care with patient and spouse Are you experiencing any new or worsening symptoms you need to talk about today? No Disease Specific Do you check your blood pressure at home? Yes, Enter readings: 122/60, Pulse Oximeter 98%, Temp 97.6 Do you have new or worsening shortness of breath with activity? No Do you have new or worsening trouble breathing while lying flat? No Do you have new or worsening swelling of legs, feet or ankles? No Do you feel like you are dehydrated for any reason, including not being able to eat or drink normally, or having less urine/much darker urine than normal for you? No Do you check your daily weight at home? Yes, Have you noticed a sudden gain in weight greater than three pounds in a day or three pounds in a week? No Based on nursing project coordinator, the following disposition is advised: Symptoms present, not severe. Routed to: No Action Needed SEVEN Education Provided this Outreach: No Jacquelyn Conley RN February 08, 2023 6:05 PM Allergies As of Date: 02/05/2023 Noted Allergy Reaction INDOCIN (INDOMETHACIN SODIUM) 03/22/2012 8 - GI Upset NORVASC (AMLODIPINE BESYLATE) 12/16/2018 14 - Other: See Comments Comments: Dizziness [id number]-[id number] REDUCTASE INHIBIT*07/10/2014 14 - Other: See Comments Comments: myalgia LISINOPRIL 12/12/2020 3 - Cough Date Reviewed: 02/02/2023 Reviewed by: Genet Higgins LPN - Fully Assessed Reason for Visit: Community Monitoring Outreach [Other] Prescriptions as of 02/09/2023 - allopurinol (ZYLOPRIM) 100 mg tablet Take 2 tablets by mouth once daily. For gout. - magnesium oxide (MAG-OX) 400 mg (241.3 mg magnesium) tablet Take 1 tablet by mouth once daily. - potassium chloride SR (MICRO-K) 10 mEq CR capsule Takes Wed/Wed/Sat/Sun (Haile Martin gave last prescription) - pyridoxine, vitamin B6, (VITAMIN B-6) 100 mg tablet Take 1 tablet by mouth once daily. - torsemide (DEMADEX) 10 mg tablet Take 2 tablets by mouth every Wednesday,Wednesday,Wednesday. - benzonatate (TESSALON PERLES) 100 mg capsule Take 1-2 capsules by mouth three times daily as needed for cough. - Lacto 21-Bifido 8-B-E7-B6-B12 (UP4 PROBIOTICS MEN'S) 50 billion cell -90 mg-30 mcg cap Take 1 tablet by mouth once daily. - atorvastatin (LIPITOR) 40 mg tablet Take 1 tablet by mouth once daily. - Coenzyme A27-Cfdeahq E 100-100 mg cap Take by mouth. - loperamide (IMODIUM) 2 mg cap(s) Take 2 mg by mouth four times daily as needed. - nitroglycerin sublingual (NITROQUICK) 0.4 mg SL tablet Dissolve 0.4 mg under the tongue every 5 minutes as needed for chest pain. - tamsulosin (FLOMAX) 0.4 mg Take 0.4 mg by mouth once daily. - sacubitril-valsartan (ENTRESTO) 49-51 mg tablet Take 1 tablet by mouth twice daily. - carvedilol (COREG) 25 mg tablet Take 12.5 mg by mouth twice daily with meals. - ascorbic acid, vitamin C, (VITAMIN C) 500 mg tablet Take 500 mg by mouth once daily. - Apple Cider Vinegar 500 mg tab Take by mouth. - ubidecarenone/vitamin E mixed (COQ10 SG 100 ORAL) Take by mouth once daily. - albuterol HFA (PROVENTIL HFA, VENTOLIN HFA) 90 mcg/actuation inhaler Inhale 2 Puffs as instructed every 4 hours as needed for wheezing/shortness of breath. - Cholecalciferol, Vitamin D3, 25 mcg (1,000 unit) cap Take 2 capsules by mouth once daily. - apixaban (ELIQUIS) 2.5 mg tab tab(s) Take 1 tablet by mouth twice daily. - cyanocobalamin (VITAMIN B-12) 1,000 mcg tab Take 1 tablet by mouth once daily. - Hmplc-0-MDG-EPA-Fish Oil 1,000 mg (120 mg-180 mg) cap Take 2 g by mouth once daily. - PSYLLIUM HUSK, BULK, MISC Take 1 Packet by mouth once daily. Takes as needed Problem List As Of Date 02/05/2023 Noted Resolved Actinic Keratoses: Premalignant AK's [L57.0] 05/08/2011 08/11/2016 Solar Lentigines [L81.4] 05/08/2011 08/11/2016 Actinic skin damage [L57.8] 05/08/2011 08/11/2016 Other seborrheic keratosis [L82.1] 05/08/2011 (more content not included)... [facility] 02-02-2023 Note HNO ID: [id number] Author: Arnold Spencer MD Service: ? Author Type: Physician Type: Progress Notes Filed: 03/01/2023 2:10 AM Note Text: This note was created using Smartsyriter. Subjective Darcy Covarrubias is a 87 year old male. Patient presents with: F/U 6 months SUBJECTIVE: Darcy Covarrubias is a 87 year old year old gentleman here today for 6 month follow up appointment for review of medical conditions. Doing well. Depression Screening 08/19/2017 01/24/2019 02/13/2019 02/02/2023 PHQ-2 Score 0 - 0 0 EARNESTINE-2 Total Score 0 - - - Score (Questions 1 AND 2) - 0 - - Total Score (All Questions) - 0 - - Depression screening tool completed and reviewed. Based on score and interview, patient is not at risk for depression. Screening tool discussed with patient, and I recommended no further intervention at this time. 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 For gout. magnesium oxide (MAG-OX) 400 mg (241.3 mg magnesium) tablet Take 1 tablet by mouth once daily. torsemide (DEMADEX) 10 mg tablet Take 2 tablets by mouth every Wednesday,Wednesday,Wednesday. Lacto 21-Bifido 1-Y-O9-B6-B12 (UP4 PROBIOTICS MEN'S) 50 billion cell -90 mg-30 mcg cap Take 1 tablet by mouth once daily. atorvastatin (LIPITOR) 40 mg tablet Take 1 tablet by mouth once daily. Coenzyme W22-Lxdufnl E 100-100 mg cap Take by mouth. loperamide (IMODIUM) 2 mg cap(s) Take 2 mg by mouth four times daily as needed. nitroglycerin sublingual (NITROQUICK) 0.4 mg SL tablet Dissolve 0.4 mg under the tongue every 5 minutes as needed for chest pain. potassium chloride SR (MICRO-K) 10 mEq CR capsule Take 1 capsule by mouth twice daily. (Patient taking differently: Take 10 mEq by mouth once daily. Takes Tue/Daiana/Sat/Sun) sacubitril-valsartan (ENTRESTO) 49-51 mg tablet Take 1 tablet by mouth twice daily. carvedilol (COREG) 25 mg tablet Take 12.5 mg by mouth twice daily with meals. ascorbic acid, vitamin C, (VITAMIN C) 500 mg tablet Take 500 mg by mouth once daily. Apple Cider Vinegar 500 mg tab Take by mouth. ubidecarenone/vitamin E mixed (COQ10 SG 100 ORAL) Take by mouth once daily. albuterol HFA (PROVENTIL HFA, VENTOLIN HFA) 90 mcg/actuation inhaler Inhale 2 Puffs as instructed every 4 hours as needed for wheezing/shortness of breath. Cholecalciferol, Vitamin D3, 25 mcg (1,000 unit) cap Take 2 capsules by mouth once daily. apixaban (ELIQUIS) 2.5 mg tab tab(s) Take 1 tablet by mouth twice daily. cyanocobalamin (VITAMIN B-12) 1,000 mcg tab Take 1 tablet by mouth once daily. Bvjey-0-AJM-EPA-Fish Oil 1,000 mg (120 mg-180 mg) cap Take 2 g by mouth once daily. PSYLLIUM HUSK, BULK, MISC Take 1 Packet by mouth once daily. Takes as needed pyridoxine, vitamin B6, (VITAMIN B-6) 100 mg tablet Take 1 tablet by mouth once daily. benzonatate (TESSALON PERLES) 100 mg capsule Take 1-2 capsules by mouth three times daily as needed for cough. (Patient not taking: Reported on 02/02/2023) tamsulosin (FLOMAX) 0.4 mg Take 0.4 mg by mouth once daily. (Patient not taking: No sig reported) No current facility-administered medications for this visit. Review of Systems Objective BP 122/68 Pulse 93 Temp 36.4 ?C (97.6 ?F) Resp 18 Wt 65.8 kg (145 lb) SpO2 98% BMI 20.81 kg/m? Physical Exam Vitals reviewed. Constitutional: Appearance: Normal appearance. Eyes: Conjunctiva/sclera: Conjunctivae normal. Cardiovascular: Rate and Rhythm: Normal rate and regular rhythm. Heart sounds: Normal heart sounds. Pulmonary: Effort: Pulmonary effort is normal. Breath sounds: Normal breath sounds. Musculoskeletal: Right lower le+ Pitting Edema present. Left lower le+ Pitting Edema present. Skin: General: Skin is warm and dry. Neurological: General: No focal deficit present. Mental Status: He is alert and oriented to person, place, and time. Psychiatric: Mood and Affect: Mood normal. Behavior: Behavior normal. Thought Content: Thought content normal. Judgment: Judgment normal. Assessment and Plan Encounter Diagnosis ICD-10-CM 1. Essential hypertension I10 LIPID PANEL, NONFASTING 2. Hyperuricemia E79.0 allopurinol (ZYLOPRIM) 100 mg tablet URIC ACID BLOOD 3. Mixed hyperlipidemia E78.2 LIPID PANEL, NONFASTING 4. Stage 3 chronic kidney disease, unspecified whether stage 3a or 3b CKD (HCC) N18.30 Above issues addressed with patient. Patient involved in shared decision making for managemen (more content not included)... [facility] 02-02-2023 History of Present illness Narrative This note was created using NoteWriter. Subjective Darcy Covarrubias is a 87 year old male. Patient presents with: F/U 6 months SUBJECTIVE: Darcy Covarrubias is a 87 year old year old gentleman here today for 6 month follow up appointment for review of medical conditions. Doing well. Depression Screening 08/19/2017 01/24/2019 02/13/2019 02/02/2023 PHQ-2 Score 0 - 0 0 EARNESTINE-2 Total Score 0 - - - Score (Questions 1 & 2) - 0 - - Total Score (All Questions) - 0 - - Depression screening tool completed and reviewed. Based on score and interview, patient is not at risk for depression. Screening tool discussed with patient, and I recommended no further intervention at this time. 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 For gout. magnesium oxide (MAG-OX) 400 mg (241.3 mg magnesium) tablet Take 1 tablet by mouth once daily. torsemide (DEMADEX) 10 mg tablet Take 2 tablets by mouth every Wednesday,Wednesday,Wednesday. Lacto 21-Bifido 6-X-P1-B6-B12 (UP4 PROBIOTICS MEN'S) 50 billion cell -90 mg-30 mcg cap Take 1 tablet by mouth once daily. atorvastatin (LIPITOR) 40 mg tablet Take 1 tablet by mouth once daily. Coenzyme U08-Xepyxon E 100-100 mg cap Take by mouth. loperamide (IMODIUM) 2 mg cap(s) Take 2 mg by mouth four times daily as needed. nitroglycerin sublingual (NITROQUICK) 0.4 mg SL tablet Dissolve 0.4 mg under the tongue every 5 minutes as needed for chest pain. potassium chloride SR (MICRO-K) 10 mEq CR capsule Take 1 capsule by mouth twice daily. (Patient taking differently: Take 10 mEq by mouth once daily. Takes Wed/Wed/Wed/Wed) sacubitril-valsartan (ENTRESTO) 49-51 mg tablet Take 1 tablet by mouth twice daily. carvedilol (COREG) 25 mg tablet Take 12.5 mg by mouth twice daily with meals. ascorbic acid, vitamin C, (VITAMIN C) 500 mg tablet Take 500 mg by mouth once daily. Apple Cider Vinegar 500 mg tab Take by mouth. ubidecarenone/vitamin E mixed (COQ10 SG 100 ORAL) Take by mouth once daily. albuterol HFA (PROVENTIL HFA, VENTOLIN HFA) 90 mcg/actuation inhaler Inhale 2 Puffs as instructed every 4 hours as needed for wheezing/shortness of breath. Cholecalciferol, Vitamin D3, 25 mcg (1,000 unit) cap Take 2 capsules by mouth once daily. apixaban (ELIQUIS) 2.5 mg tab tab(s) Take 1 tablet by mouth twice daily. cyanocobalamin (VITAMIN B-12) 1,000 mcg tab Take 1 tablet by mouth once daily. Xafco-9-FVG-EPA-Fish Oil 1,000 mg (120 mg-180 mg) cap Take 2 g by mouth once daily. PSYLLIUM HUSK, BULK, MISC Take 1 Packet by mouth once daily. Takes as needed pyridoxine, vitamin B6, (VITAMIN B-6) 100 mg tablet Take 1 tablet by mouth once daily. benzonatate (TESSALON PERLES) 100 mg capsule Take 1-2 capsules by mouth three times daily as needed for cough. (Patient not taking: Reported on 02/02/2023) tamsulosin (FLOMAX) 0.4 mg Take 0.4 mg by mouth once daily. (Patient not taking: No sig reported) No current facility-administered medications for this visit. Review of Systems Objective BP 122/68 Pulse 93 Temp 36.4 C (97.6 F) Resp 18 Wt 65.8 kg (145 lb) SpO2 98% BMI 20.81 kg/m Physical Exam Vitals reviewed. Constitutional: Appearance: Normal appearance. Eyes: Conjunctiva/sclera: Conjunctivae normal. Cardiovascular: Rate and Rhythm: Normal rate and regular rhythm. Heart sounds: Normal heart sounds. Pulmonary: Effort: Pulmonary effort is normal. Breath sounds: Normal breath sounds. Musculoskeletal: Right lower le+ Pitting Edema present. Left lower le+ Pitting Edema present. Skin: General: Skin is warm and dry. Neurological: General: No focal deficit present. Mental Status: He is alert and oriented to person, place, and time. Psychiatric: Mood and Affect: Mood normal. Behavior: Behavior normal. Thought Content: Thought content normal. Judgment: Judgment normal. Assessment and Plan Encounter Diagnosis ICD-10-CM 1. Essential hypertension I10 LIPID PANEL, NONFASTING 2. Hyperuricemia E79.0 allopurinol (ZYLOPRIM) 100 mg tablet URIC ACID BLOOD 3. Mixed hyperlipidemia E78.2 LIPID PANEL, NONFASTING 4. Stage 3 chronic kidney disease, unspecified whether stage 3a or 3b CKD (HCC) N18.30 Above issues addressed with patient. Patient involved in shared decision making for management of medical issues. History and medications reviewed. Epic updated as needed Refills and/or prescriptions taken care of and meds adjusted as indicated after reviewed history, exam and labs. Health Maintenance reviewed. Updated record and/or ordered tests as recorded. Encouraged on efforts at healthy diet and regular exercise and adequate sleep. Arnold Spencer MD documented in this encounter [facility] 01-08-2023 Note Patient Outreach (AM [facility]) DARCY COVARRUBIAS ([id number]) 1935 M T Date Time Provider Department 01/08/23 JACQUELYN CONLEY During your visit today, we recorded the following information about you: Jacquelyn Conley RN 01/08/2023 9:10 AM Signed INSIGHT CDM TELEPHONIC OUTREACH Provider Action/FYI: CDM: CHF, CKD Spk with Pt and , Joseph denies any new or worsening symptoms. BP 122/70 , wt 140 lbs, he continues to do daily Am exercises provided by Physical Therapy, for his Left Hip discomfort, related to Spinal Stenosis. Instructed and Encouraged daily weights and low sodium diet. Discussed S/S to report: wt gain of 3 lbs or more in a day, or 5 lbs in a week, increased leg swelling, SOB Instructed to report to PCP. Pt verbalized understanding Pt denies any needs, questions or concerns, instructed to call PCP with any changes in condition Contact made with patient: Yes Patient identified by name and . Discussed care with patient and spouse It?s nice talking to you again. As a reminder, this is our bi-weekly check-in where I will be asking you questions about your health. This will only take a few minutes of your time. Is this a good time? Yes Symptoms What Chronic Disease(s) does the patient have: CHF and CKD Do you check your blood pressures at home? Yes, Enter readings: 122/70 Do you have new or worse shortness of breath with activity? No Do you have new or worsening trouble breathing while lying flat? No Do you have new or worsening swelling of legs, feet or ankles? No Do you feel like you are dehydrated for any reason, including not being able to eat or drink normally, or having less urine/much darker urine than normal for you? No Do you check your daily weight at home? Yes, Have you noticed a sudden gain in weight greater than three pounds in a day or three pounds in a week? No Are you having any other symptoms that your PCP needs to know about? No Symptoms: Symptom Escalation SEVEN Education Ordered -: No The patient required an escalation for symptom(s)? No Medications Do you have any questions about taking your medication or which medications you should be on? No Do you need any medication refills at this time, including any of the medications you might take only when needed? No Social We would like to make sure you have what you need so that your basic needs are met- including your personal safety, food, housing, transportation and medications? Would you like to speak with a social work front desk team member to help give you support for any of these needs? No It can be normal to feel anxious or down during a time like this. Would you like to talk to a mental health professional about how you have been feeling? No Closing Thank you for taking the time to talk with me today. We want to work with you to ensure that we are keeping your medical condition(s) well-controlled and to keep you healthy and out of the doctor's office or hospital. It?s also not too late for me to sign you up for automated weekly questionnaires through [employer]. This is an easy way for us to stay connected each week. Are you interested? No, I understand. We can always sign you up in the future if you change your mind. Just as a reminder, will continue to call you every other week to check in on your health. Our calls should take 10-15 minutes or less. Remember, if you have concerns in between our calls, please call your PCP's office right away. Thank you. Enter next patient outreach date for two weeks on the same day of the week as today in the Track Pt Outreach and End outreach. Jacquelyn Conley RN January 08, 2023 8:52 AM Allergies As of Date: 01/08/2023 Noted Allergy Reaction INDOCIN (INDOMETHACIN SODIUM) 03/22/2012 8 - GI Upset NORVASC (AMLODIPINE BESYLATE) 12/16/2018 14 - Other: See Comments Comments: Dizziness [id number] REDUCTASE INHIBIT*07/10/2014 14 - Other: See Comments Comments: myalgia LISINOPRIL 12/12/2020 3 - Cough Date Reviewed: 11/19/2022 Reviewed by: 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 APRN.CHEMICAL EDUCATOR - Fully Assessed Reason for Visit: Community Monitoring Outreach [Other] Prescriptions as of 01/08/2023 - allopurinol (ZYLOPRIM) 100 mg tablet Take 2 tablets by mouth once daily. For gout. - magnesium oxide (MAG-OX) 400 mg (241.3 mg magnesium) tablet Take 1 tablet by mouth once daily. - torsemide (DEMADEX) 10 mg tablet Take 2 tablets by mouth every Wednesday,Wednesday,Wednesday. - benzonatate (TESSALON PERLES) 100 mg capsule Take 1-2 capsules by mouth three times daily as needed for cough. - Lacto 21-Bifido 0-D-S8-B6-B12 (UP4 PROBIOTICS MEN'S) 50 billion cell -90 mg-30 mcg cap Take 1 tablet by mouth once daily. - atorvastatin (LIPITOR) 40 mg tablet Take 1 tablet by mouth once daily. - Coenzyme T46-Qpnkywb E 100-100 mg cap Take by mouth. - loperamide (IMODIUM) 2 mg cap(s) (more content not included)... [facility] 01-08-2023 Note HNO ID: [id number] Author: Jacquelyn Conley RN Service: ? Author Type: Registered Nurse Type: Progress Notes Filed: 01/08/2023 9:10 AM Note Text: INSIGHT CDM TELEPHONIC OUTREACH Provider Action/FYI: CDM: CHF, CKD Spk with Pt and , Joseph denies any new or worsening symptoms. BP 122/70 , wt 140 lbs, he continues to do daily Am exercises provided by Physical Therapy, for his Left Hip discomfort, related to Spinal Stenosis. Instructed and Encouraged daily weights and low sodium diet. Discussed S/S to report: wt gain of 3 lbs or more in a day, or 5 lbs in a week, increased leg swelling, SOB Instructed to report to PCP. Pt verbalized understanding Pt denies any needs, questions or concerns, instructed to call PCP with any changes in condition Contact made with patient: Yes Patient identified by name and . Discussed care with patient and spouse It?s nice talking to you again. As a reminder, this is our bi-weekly check-in where I will be asking you questions about your health. This will only take a few minutes of your time. Is this a good time? Yes Symptoms What Chronic Disease(s) does the patient have: CHF and CKD Do you check your blood pressures at home? Yes, Enter readings: 122/70 Do you have new or worse shortness of breath with activity? No Do you have new or worsening trouble breathing while lying flat? No Do you have new or worsening swelling of legs, feet or ankles? No Do you feel like you are dehydrated for any reason, including not being able to eat or drink normally, or having less urine/much darker urine than normal for you? No Do you check your daily weight at home? Yes, Have you noticed a sudden gain in weight greater than three pounds in a day or three pounds in a week? No Are you having any other symptoms that your PCP needs to know about? No Symptoms: Symptom Escalation SEVEN Education Ordered -: No The patient required an escalation for symptom(s)? No Medications Do you have any questions about taking your medication or which medications you should be on? No Do you need any medication refills at this time, including any of the medications you might take only when needed? No Social We would like to make sure you have what you need so that your basic needs are met- including your personal safety, food, housing, transportation and medications? Would you like to speak with a social work front desk team member to help give you support for any of these needs? No It can be normal to feel anxious or down during a time like this. Would you like to talk to a mental health professional about how you have been feeling? No Closing Thank you for taking the time to talk with me today. We want to work with you to ensure that we are keeping your medical condition(s) well-controlled and to keep you healthy and out of the doctor's office or hospital. It?s also not too late for me to sign you up for automated weekly questionnaires through [employer]. This is an easy way for us to stay connected each week. Are you interested? No, I understand. We can always sign you up in the future if you change your mind. Just as a reminder, will continue to call you every other week to check in on your health. Our calls should take 10-15 minutes or less. Remember, if you have concerns in between our calls, please call your PCP's office right away. Thank you. Enter next patient outreach date for two weeks on the same day of the week as today in the Track Pt Outreach and End outreach. Jacquelyn Conley RN January 08, 2023 8:52 AM [facility] 01-08-2023 History of Present illness Narrative INSIGHT CDM TELEPHONIC OUTREACH Provider Action/FYI: CDM: CHF, CKD Spk with Pt and , Joseph denies any new or worsening symptoms. BP 122/70 , wt 140 lbs, he continues to do daily Am exercises provided by Physical Therapy, for his Left Hip discomfort, related to Spinal Stenosis. Instructed and Encouraged daily weights and low sodium diet. Discussed S/S to report: wt gain of 3 lbs or more in a day, or 5 lbs in a week, increased leg swelling, SOB Instructed to report to PCP. Pt verbalized understanding Pt denies any needs, questions or concerns, instructed to call PCP with any changes in condition Contact made with patient: Yes Patient identified by name and . Discussed care with patient and spouse It s nice talking to you again. As a reminder, this is our bi-weekly check-in where I will be asking you questions about your health. This will only take a few minutes of your time. Is this a good time? Yes Symptoms What Chronic Disease(s) does the patient have: CHF and CKD Do you check your blood pressures at home? Yes, Enter readings: 122/70 Do you have new or worse shortness of breath with activity? No Do you have new or worsening trouble breathing while lying flat? No Do you have new or worsening swelling of legs, feet or ankles? No Do you feel like you are dehydrated for any reason, including not being able to eat or drink normally, or having less urine/much darker urine than normal for you? No Do you check your daily weight at home? Yes, Have you noticed a sudden gain in weight greater than three pounds in a day or three pounds in a week? No Are you having any other symptoms that your PCP needs to know about? No Symptoms: Symptom Escalation SEVEN Education Ordered -: No The patient required an escalation for symptom(s)? No Medications Do you have any questions about taking your medication or which medications you should be on? No Do you need any medication refills at this time, including any of the medications you might take only when needed? No Social We would like to make sure you have what you need so that your basic needs are met- including your personal safety, food, housing, transportation and medications? Would you like to speak with a social work front desk team member to help give you support for any of these needs? No It can be normal to feel anxious or down during a time like this. Would you like to talk to a mental health professional about how you have been feeling? No Closing Thank you for taking the time to talk with me today. We want to work with you to ensure that we are keeping your medical condition(s) well-controlled and to keep you healthy and out of the doctor's office or hospital. It s also not too late for me to sign you up for automated weekly questionnaires through [employer]. This is an easy way for us to stay connected each week. Are you interested? No, I understand. We can always sign you up in the future if you change your mind. Just as a reminder, will continue to call you every other week to check in on your health. Our calls should take 10-15 minutes or less. Remember, if you have concerns in between our calls, please call your PCP's office right away. Thank you. Enter next patient outreach date for two weeks on the same day of the week as today in the Track Pt Outreach and End outreach. Jacquelyn Conley RN January 08, 2023 8:52 AM documented in this encounter [facility] 01-07-2023 Miscellaneous Notes Patient has been identified by name and date of : Yes Spouse phones for refill(s): Requested Prescriptions Pending Prescriptions Disp Refills allopurinol (ZYLOPRIM) 100 mg tablet 180 tablet 1 Sig: Take 2 tablets by mouth once daily. For gout. Last Office Visit: 11/19/22 with 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 Next Visit: 02/02/[address] Palomo Clark, RN documented in this encounter [facility] 12-08-2022 Note HNO ID: [id number] Author: Jacquelyn Conley RN Service: ? Author Type: Registered Nurse Type: Progress Notes Filed: 12/08/2022 9:38 AM Note Text: INSIGHT CDM TELEPHONIC OUTREACH Provider Action/FYI: Routed Updates to Dr. Spencer CDM: CHF, CKD Pt denies Sob, wheezing, extremity edema improved Pt noted dry cough when he has acid reflux, he is taking Pepcid OTC which is effective, 12/11/22 Appt with [facility]/ Friend [facility] Wt 134 lbs, BP 120/80 Denies needs or concerns Contact made with patient: Yes Patient identified by name and . Discussed care with patient It?s nice talking to you again. As a reminder, this is our bi-weekly check-in where I will be asking you questions about your health. This will only take a few minutes of your time. Is this a good time? Yes Symptoms What Chronic Disease(s) does the patient have: CHF and CKD Do you check your blood pressures at home? Yes, Enter readings: 120/80 Do you have new or worse shortness of breath with activity? No Do you have new or worsening trouble breathing while lying flat? No Do you have new or worsening swelling of legs, feet or ankles? No Do you feel like you are dehydrated for any reason, including not being able to eat or drink normally, or having less urine/much darker urine than normal for you? No Do you check your daily weight at home? Yes, Have you noticed a sudden gain in weight greater than three pounds in a day or three pounds in a week? No Are you having any other symptoms that your PCP needs to know about? Yes Symptoms: Reflux Symptom Escalation SEVEN Education Ordered -: No The patient required an escalation for symptom(s)? No Medications Do you have any questions about taking your medication or which medications you should be on? No Do you need any medication refills at this time, including any of the medications you might take only when needed? No Social We would like to make sure you have what you need so that your basic needs are met- including your personal safety, food, housing, transportation and medications? Would you like to speak with a social work front desk team member to help give you support for any of these needs? No It can be normal to feel anxious or down during a time like this. Would you like to talk to a mental health professional about how you have been feeling? No Closing Thank you for taking the time to talk with me today. We want to work with you to ensure that we are keeping your medical condition(s) well-controlled and to keep you healthy and out of the doctor's office or hospital. It?s also not too late for me to sign you up for automated weekly questionnaires through [employer]. This is an easy way for us to stay connected each week. Are you interested? No, I understand. We can always sign you up in the future if you change your mind. Just as a reminder, will continue to call you every other week to check in on your health. Our calls should take 10-15 minutes or less. Remember, if you have concerns in between our calls, please call your PCP's office right away. Thank you. Enter next patient outreach date for two weeks on the same day of the week as today in the Track Pt Outreach and End outreach. Jacquelyn Conley RN December 08, 2022 9:17 AM [facility] 12-08-2022 History of Present illness Narrative [facility] Provider Action/FYI: Routed Updates to Dr. Palomo DAVENPORT: CHF, CKD Pt denies Sob, wheezing, extremity edema improved Pt noted dry cough when he has acid reflux, he is taking Pepcid OTC which is effective, 12/11/22 Appt with Coco BARRETT/ . Friend [facility] Wt 134 lbs, BP 120/80 Denies needs or concerns Contact made with patient: Yes Patient identified by name and . Discussed care with patient It s nice talking to you again. As a reminder, this is our bi-weekly check-in where I will be asking you questions about your health. This will only take a few minutes of your time. Is this a good time? Yes Symptoms What Chronic Disease(s) does the patient have: CHF and CKD Do you check your blood pressures at home? Yes, Enter readings: 120/80 Do you have new or worse shortness of breath with activity? No Do you have new or worsening trouble breathing while lying flat? No Do you have new or worsening swelling of legs, feet or ankles? No Do you feel like you are dehydrated for any reason, including not being able to eat or drink normally, or having less urine/much darker urine than normal for you? No Do you check your daily weight at home? Yes, Have you noticed a sudden gain in weight greater than three pounds in a day or three pounds in a week? No Are you having any other symptoms that your PCP needs to know about? Yes Symptoms: Reflux Symptom Escalation SEVEN Education Ordered -: No The patient required an escalation for symptom(s)? No Medications Do you have any questions about taking your medication or which medications you should be on? No Do you need any medication refills at this time, including any of the medications you might take only when needed? No Social We would like to make sure you have what you need so that your basic needs are met- including your personal safety, food, housing, transportation and medications? Would you like to speak with a social work front desk team member to help give you support for any of these needs? No It can be normal to feel anxious or down during a time like this. Would you like to talk to a mental health professional about how you have been feeling? No Closing Thank you for taking the time to talk with me today. We want to work with you to ensure that we are keeping your medical condition(s) well-controlled and to keep you healthy and out of the doctor's office or hospital. It s also not too late for me to sign you up for automated weekly questionnaires through [employer]. This is an easy way for us to stay connected each week. Are you interested? No, I understand. We can always sign you up in the future if you change your mind. Just as a reminder, will continue to call you every other week to check in on your health. Our calls should take 10-15 minutes or less. Remember, if you have concerns in between our calls, please call your PCP's office right away. Thank you. Enter next patient outreach date for two weeks on the same day of the week as today in the Track Pt Outreach and End outreach. Jacquelyn Conley RN December 08, 2022 9:17 AM [facility] Provider Action/FYI: CDM: CHF, CKD Called Pt, line busy, unable to leave a message Contact made with patient: No - Unable to leave message Entered next patient outreach date for the following business day, if third call please enter next outreach date for one week in the Track Pt. Outreach - End Outreach Jacquelyn Conley RN December 07, 2022 10:29 AM documented in this encounter [facility] 12-07-2022 Note Patient Outreach (AM [facility]) DARCY COVARRUBIAS ([id number]) 1935 M T Date Time Provider Department 12/07/22 JACQUELYN CONLEY During your visit today, we recorded the following information about you: Jacquelyn Conley RN 12/08/2022 9:38 AM Signed [facility] Provider Action/FYI: CDM: CHF, CKD Called Pt, line busy, unable to leave a message Contact made with patient: No - Unable to leave message Entered next patient outreach date for the following day, if third call please enter next outreach date for one week in the Track Pt. Outreach - End Outreach Jacquelyn Conley RN December 07, 2022 10:29 AM Jacquelyn Conley RN 12/08/2022 9:38 AM Signed [facility] Provider Action/FYI: Routed Updates to Dr. Spencer CDM: CHF, CKD Pt denies Sob, wheezing, extremity edema improved Pt noted dry cough when he has acid reflux, he is taking Pepcid OTC which is effective, 12/11/22 Appt with Coco BARRETT/ . Friend [facility] Wt 134 lbs, BP 120/80 Denies needs or concerns Contact made with patient: Yes Patient identified by name and . Discussed care with patient It?s nice talking to you again. As a reminder, this is our bi-weekly check-in where I will be asking you questions about your health. This will only take a few minutes of your time. Is this a good time? Yes Symptoms What Chronic Disease(s) does the patient have: CHF and CKD Do you check your blood pressures at home? Yes, Enter readings: 120/80 Do you have new or worse shortness of breath with activity? No Do you have new or worsening trouble breathing while lying flat? No Do you have new or worsening swelling of legs, feet or ankles? No Do you feel like you are dehydrated for any reason, including not being able to eat or drink normally, or having less urine/much darker urine than normal for you? No Do you check your daily weight at home? Yes, Have you noticed a sudden gain in weight greater than three pounds in a day or three pounds in a week? No Are you having any other symptoms that your PCP needs to know about? Yes Symptoms: Reflux Symptom Escalation SEVEN Education Ordered -: No The patient required an escalation for symptom(s)? No Medications Do you have any questions about taking your medication or which medications you should be on? No Do you need any medication refills at this time, including any of the medications you might take only when needed? No Social We would like to make sure you have what you need so that your basic needs are met- including your personal safety, food, housing, transportation and medications? Would you like to speak with a social work front desk team member to help give you support for any of these needs? No It can be normal to feel anxious or down during a time like this. Would you like to talk to a mental health professional about how you have been feeling? No Closing Thank you for taking the time to talk with me today. We want to work with you to ensure that we are keeping your medical condition(s) well-controlled and to keep you healthy and out of the doctor's office or hospital. It?s also not too late for me to sign you up for automated weekly questionnaires through [employer]. This is an easy way for us to stay connected each week. Are you interested? No, I understand. We can always sign you up in the future if you change your mind. Just as a reminder, will continue to call you every other week to check in on your health. Our calls should take 10-15 minutes or less. Remember, if you have concerns in between our calls, please call your PCP's office right away. Thank you. Enter next patient outreach date for two weeks on the same day of the week as today in the Track Pt Outreach and End outreach. Jacquelyn Conley RN December 08, 2022 9:17 AM Allergies As of Date: 12/07/2022 Noted Allergy Reaction INDOCIN (INDOMETHACIN SODIUM) 03/22/2012 8 - GI Upset NORVASC (AMLODIPINE BESYLATE) 12/16/2018 14 - Other: See Comments Comments: Dizziness [id number] REDUCTASE INHIBIT*07/10/2014 14 - Other: See Comments Comments: myalgia LISINOPRIL 12/12/2020 3 - Cough Date Reviewed: 11/19/2022 Reviewed by: 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 APRN.CHEMICAL EDUCATOR - Fully Assessed Reason for Visit: Community Monitoring Outreach [Other] Prescriptions as of 12/08/2022 - torsemide (DEMADEX) 10 mg tablet Take 2 tablets by mouth every Wednesday,Wednesday,Wednesday. - benzonatate (TESSALON PERLES) 100 mg capsule Take 1-2 capsules by mouth three times daily as needed for cough. - Lacto 21-Bifido [id number] (UP4 PROBIOTICS MEN'S) 50 billion cell -90 mg-30 mcg cap Take 1 tablet by mouth once daily. - magnesium oxide (MAG-OX) 400 mg (241.3 mg magnesium) tablet Take 1 tablet by mouth once daily. - atorvastatin (LIPITOR) 40 mg tablet Take 1 tablet by mouth once daily. - Co (more content not included)... [facility] 12-07-2022 Note HNO ID: [id number] Author: Jacquelyn Conley RN Service: ? Author Type: Registered Nurse Type: Progress Notes Filed: 12/08/2022 9:38 AM Note Text: [facility] Provider Action/FYI: CDM: CHF, CKD Called Pt, line busy, unable to leave a message Contact made with patient: No - Unable to leave message Entered next patient outreach date for the following business day, if third call please enter next outreach date for one week in the Track Pt. Outreach - End Outreach Jacquelyn Conley RN December 07, 2022 10:29 AM [facility] 12-04-2022 Miscellaneous Notes Left message for pt to return phone call. Inquiring about who he is getting his eliquis filled with. Received refill request from [facility]. We have not filled it since 2020. He may be getting assistance through the assistance program. Please verify. Elizabeth Evans RN documented in this encounter [facility] 11-24-2022 Miscellaneous Notes notified and verbalized understanding. Noted. The diuretic the cardiology group ordered should help with the cough said cough is no better. Cardiology is ordering labs because they have put him on spirolactone and potassium so are checking labs on medication. Once complete and results back cardiology will call him back with further instructions. No need for refill of azithromycin. How is his cough? Did cardiology order labwork or do we need to do that? Joseph is finishing up his azithromycin today and is asking if he needs to have a refill. Please call her at [phone] Spoke with patients . Patient called cardiology as soon as they left appointment with SUSHMA Bellamy. Dye Tub Tender put him on Spirolactone and potassium and wanted him to have labs done wed,wed, or and once they have lab work back she is to call for an appt with them. Please check to see how he is doing re: cough and if he has a cardiology appointment upcoming. documented in this encounter [facility] 11-20-2022 Miscellaneous Notes Joseph needs a refill on Torsemide 10 mg but Deirdre said that they told you the banquet kitchen supervisor put him on Torsemide 20 mg on Wednesday, Wednesday and Wednesday. Deirdre want you to remember that when you refill the prescription. Please send to [facility]. Any questions call Deirdre [phone] documented in this encounter [facility] 11-19-2022 Note HNO ID: [id number] Author: RT Ellen(R) Service: Nuclear Medicine Author Type: Technologist Type: Progress Notes Filed: 11/19/2022 2:38 PM Note Text: Radiology Service Progress Note PATIENT NAME: Darcy Covarrubias DATE OF SERVICE: November 19, 2022 TIME: 2:26 PM PATIENT IDENTITY VERIFICATION COMPLETED USING TWO (2) IDENTIFIERS: Name and Date of confirmed by patient verbally. FALL SCREENING: Has the patient had 2 falls in the last year or 1 fall with injury or currently using an Ambulatory Assistive Device (Walker, Cane, Wheelchair, Crutches, etc.)? No PATIENT GENDER DATA: Male PATIENT RELEVANT IMPLANT DATA REVIEWED: Not Applicable RADIOLOGY DEPARTMENT: General X-ray: Exam(s) Completed: Chest X-Ray PERIPHERAL IV DATA: Not applicable SIGNED BY: Jacquelyn Plaza, (R) November 19, 2022 2:26 PM [facility] 11-19-2022 Note HNO ID: [id number] Author: 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 APRN.CHEMICAL EDUCATOR Service: ? Author Type: Nurse Specialist Type: Progress Notes Filed: 11/19/2022 2:18 PM Note Text: SUBJECTIVE: SHINGRIX VACCINE(1 of 2) Never done DTAP,TDAP,TD(1 - Tdap) due on 08/20/2017 COVID-19 VACCINE(3 - Booster for Pfizer series) due on 04/29/2021 ADVANCE DIRECTIVE DISCUSSION Never done DEPRESSION ASSESSMENT Never done LDL CHOLESTEROL due on 10/21/2022 HPI Darcy Covarrubias is a 87 year old male. 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 Paroxysmal Atrial Fibrillation (Hcc) Carotid Stenosis, Asymptomatic Hyperglycemia Anemia of Chronic Disease Ckd (Chronic Kidney Disease), Stage Iii (Hcc) Lumbar Spinal 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 Recent echocardiogram at [facility] showed ejection fraction of 20%, severe global hypokinesis, 1-2+ eccentric mitral regurgitation, RVSP 44 mmHg. 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 He was treated with Lasix 40 mg IV twice daily while hospitalized. 1500 mL fluid restriction. Daily weights. Kidney and electrolyte monitoring. Followed by [facility], . He was seen by cardiology during his admission, he was continued on goal-directed heart failure management with diuretics Entresto and beta-sury. His status improved while admitted He was discharged on torsemide 20 mg oral daily and Lasix 40 mg daily. He was noted to have hypomagnesia during admission and was treated with IV magnesium, provided with magnesium oxide 400 mg to be taken twice daily as outpatient. ACS was ruled out. CKD stage IV. Renal ultrasound completed during admission showed mild bilateral hydronephrosis unchanged from prior study. Stable left renal cysts. He was started on Flomax as BPH may have been cause for bilateral small hydronephrosis. Bicarbonate was discontinued during his admission. He was continued on oral anticoagulation for atrial fibrillation flutter. 1 week recheck of BMP and magnesium advised. Advised to follow-up with timber skidder and banquet kitchen supervisor. Advised to follow-up with urologist Dr. Douglas. Medication review completed Yes Presents today feeling improved. SO- and daughter at visit. Shortness of breath: improved Leg swelling: reduced Weight: reduced by 11 pounds Chest pain: none reported since discharge Cardiology appointment: scheduled in July Urology appointment: not yet scheduled Nephrology appointment: in July Refills: states none needed today. Presents today with report of dry cough for 1 month. Current or previous respiratory illness: no nasal drainage congestion ear pain sore throat headache. No sick contacts. Afebrile. Taking Entresto per cardiology: yes Cardiology did not stop Entresto at the time of the call. HTN: Without report of orthopnea or PND. Has had weight gain. Leg swelling is a bit more than usual . Continues on torsemide 3x/week. stable. Weight is increased about 10 lbs since last seen. Diuretic dose: no recent change Last 14 Encounter BP Readings: Date: BP: 11/03/2022 121/67 07/31/2022 127/72 07/28/2022 110/70 07/21/2022 120/68 07/10/2022 145/81 06/23/2022 110/60 06/05/2022 140/80 05/26/2022 134/74 03/10/2022 130/82 01/13/2022 138/80 01/06/2022 160/80 11/18/2021 167/85[average[ 11/12/2021 173/77[BP Javan average[ 11/10/2021 120/84 Creatinine Date Value Ref Range Status 08/27/2022 1.89 (H) 0.73 - 1.22 mg/dL Final 08/18/2022 2.50 (H) 0.73 - 1.22 mg/dL Final 07/28/2022 2.06 (H) 0.73 - 1.22 mg/dL Final 07/20/2022 2.27 (H) 0.73 - 1.22 mg/dL Final Review of Systems Constitutional: Negative. HENT: Negative. Respiratory: Positive for cough. Cardiovascular: Positive for leg swelling. Objective BP 120/72 Pulse 66 Resp 14 Wt 68.9 kg (152 lb) SpO2 97% BMI 21.81 kg/m? Physical Exam Vitals and nursing note reviewed. Constitutional: Appearance: Normal appearance. HENT: Head: Normocephalic and atraumatic. Right Ear: Tympa (more content not included)... [facility] 11-05-2022 Note HNO ID: [id number] Author: Jacquelyn Conley, RN Service: ? Author Type: Registered Nurse Type: Progress Notes Filed: 11/05/2022 10:38 AM Note Text: [facility]REACH Provider Action/FYI: Spk with Pt, he has intermittent dry cough, completed 11/03/[address] Cat Chavira MD Nephrology noted cough may be due to medications. Pt denies Sob, wheezing or fevers, or other symptoms BP 120/80, Wt 141 lbs Pt is scheduled 12/08/22 for Colonoscopy, related to intermittent diarrhea for 4 mths, is taking immodium, periodic Probiotics and Psyllium Denies needs. Contact made with patient: Yes Patient identified by name and . Discussed care with patient and spouse It?s nice talking to you again. As a reminder, this is our bi-weekly check-in where I will be asking you questions about your health. This will only take a few minutes of your time. Is this a good time? Yes Symptoms What Chronic Disease(s) does the patient have: CHF and CKD Do you check your blood pressures at home? Yes, Enter readings: 120/80 Do you have new or worse shortness of breath with activity? No Do you have new or worsening trouble breathing while lying flat? No Do you have new or worsening swelling of legs, feet or ankles? No Do you feel like you are dehydrated for any reason, including not being able to eat or drink normally, or having less urine/much darker urine than normal for you? No Do you check your daily weight at home? Yes, Have you noticed a sudden gain in weight greater than three pounds in a day or three pounds in a week? No Are you having any other symptoms that your PCP needs to know about? No Symptoms: N/A Symptom Escalation SEVEN Education Ordered -: No The patient required an escalation for symptom(s)? No Medications Do you have any questions about taking your medication or which medications you should be on? No Do you need any medication refills at this time, including any of the medications you might take only when needed? No Social We would like to make sure you have what you need so that your basic needs are met- including your personal safety, food, housing and medications? Would you like to speak with a social work front desk team member to help give you support for any of these needs? No It can be normal to feel anxious or down during a time like this. Would you like to talk to a mental health professional about how you have been feeling? No Closing Thank you for taking the time to talk with me today. We want to work with you to ensure that we are keeping your medical condition(s) well-controlled and to keep you healthy and out of the doctor's office or hospital. It?s also not too late for me to sign you up for automated weekly questionnaires through [employer]. This is an easy way for us to stay connected each week. Are you interested? No, I understand. We can always sign you up in the future if you change your mind. Just as a reminder, will continue to call you every other week to check in on your health. Our calls should take 10-15 minutes or less. Remember, if you have concerns in between our calls, please call your PCP's office right away. Thank you. Enter next patient outreach date for two weeks on the same day of the week as today in the Track Pt Outreach and End outreach. Jacquelyn Conley RN November 05, 2022 10:17 AM [facility] 11-05-2022 History of Present illness Narrative [facility] Provider Action/FYI: Spk with Pt, he has intermittent dry cough, completed 11/03/[address] Cat Chavira MD Nephrology noted cough may be due to medications. Pt denies Sob, wheezing or fevers, or other symptoms BP 120/80, Wt 141 lbs Pt is scheduled 12/08/22 for Colonoscopy, related to intermittent diarrhea for 4 mths, is taking immodium, periodic Probiotics and Psyllium Denies needs. Contact made with patient: Yes Patient identified by name and . Discussed care with patient and spouse It s nice talking to you again. As a reminder, this is our bi-weekly check-in where I will be asking you questions about your health. This will only take a few minutes of your time. Is this a good time? Yes Symptoms What Chronic Disease(s) does the patient have: CHF and CKD Do you check your blood pressures at home? Yes, Enter readings: 120/80 Do you have new or worse shortness of breath with activity? No Do you have new or worsening trouble breathing while lying flat? No Do you have new or worsening swelling of legs, feet or ankles? No Do you feel like you are dehydrated for any reason, including not being able to eat or drink normally, or having less urine/much darker urine than normal for you? No Do you check your daily weight at home? Yes, Have you noticed a sudden gain in weight greater than three pounds in a day or three pounds in a week? No Are you having any other symptoms that your PCP needs to know about? No Symptoms: N/A Symptom Escalation SEVEN Education Ordered -: No The patient required an escalation for symptom(s)? No Medications Do you have any questions about taking your medication or which medications you should be on? No Do you need any medication refills at this time, including any of the medications you might take only when needed? No Social We would like to make sure you have what you need so that your basic needs are met- including your personal safety, food, housing and medications? Would you like to speak with a social work front desk team member to help give you support for any of these needs? No It can be normal to feel anxious or down during a time like this. Would you like to talk to a mental health professional about how you have been feeling? No Closing Thank you for taking the time to talk with me today. We want to work with you to ensure that we are keeping your medical condition(s) well-controlled and to keep you healthy and out of the doctor's office or hospital. It s also not too late for me to sign you up for automated weekly questionnaires through [employer]. This is an easy way for us to stay connected each week. Are you interested? No, I understand. We can always sign you up in the future if you change your mind. Just as a reminder, will continue to call you every other week to check in on your health. Our calls should take 10-15 minutes or less. Remember, if you have concerns in between our calls, please call your PCP's office right away. Thank you. Enter next patient outreach date for two weeks on the same day of the week as today in the Track Pt Outreach and End outreach. Jacquelyn Conley RN November 05, 2022 10:17 AM [facility] TELEPHONIC OUTREACH Provider Action/FYI: CHF/ CKD: Called Pt, line rang busy, unable to leave a message to verify symptom status and needs. Contact made with patient: No - Unable to leave message Entered next patient outreach date for the following business day, if third call please enter next outreach date for one week in the Track Pt. Outreach - End Outreach Jacquelyn Conley RN November 04, 2022 9:39 AM [facility] TELEPHONIC OUTREACH Provider Action/FYI: Called Pt left a message to verify symptom status and needs. Instructed to call PCP with any symptom or condition changes. Contact made with patient: No - Left message Hello my name is Jacquelyn Conley RN your Lockstitch Shoulder Joiner from the [facility] I am calling today for your bi-weekly check in. I am sorry I missed your call. I will reach out to you again tomorrow. (if the third call I will reach out to you again next week) Enter next patient outreach date for the following business day using the Track Pt Outreach. End outreach. Jacquelyn Conley RN November 02, 2022 12:21 PM documented in this encounter [facility] 11-04-2022 Note HNO ID: [id number] Author: Jacquelyn Conley RN Service: ? Author Type: Registered Nurse Type: Progress Notes Filed: 11/05/2022 10:38 AM Note Text: [facility] TELEPHONIC OUTREACH Provider Action/FYI: CHF/ CKD: Called Pt, line rang busy, unable to leave a message to verify symptom status and needs. Contact made with patient: No - Unable to leave message Entered next patient outreach date for the following business day, if third call please enter next outreach date for one week in the Track Pt. Outreach - End Outreach Jacquelyn Conley RN November 04, 2022 9:39 AM [facility] 11-03-2022 Note HNO ID: [id number] Author: Cat Chavira MD Service: ? Author Type: Physician Type: Progress Notes Filed: 11/03/2022 6:17 PM Note Text: [facility] SERVICE DATE: 11/03/2022 SERVICE TIME: 6:12 PM CHIEF COMPLAINT: CKD follow up HPI: Mr. Covarrubias is a 87 year old male with PMH of CKD stage IIIa, mild bilateral chronic hydronephrosis. HTN, combined CHF with EF 20% (03/2022), chronic afib/flutter, chronic diarrhea, CAD status post CABG, HLD, bradycardia status post pacemaker placement, intracranial bleed due to fall, who presents for CKD follow up. For HANDP please refer to my note on 07/10/2022. Today patient reports feeling overall well. His weight is remaining stable in 145 to 150 pounds. He still has LE edema, which is also stable as per patient. His diuretic schedule was recently changed by cardiology to 20 mg on MWF. His last BMP on 09/05/2022 showed creatinine of 1.84, which is actually down trended from 2.5 on 08/18/2022. He has upcoming appointment with GI due to chronic diarrhea with plan for endoscopy on 12/08/2021. UA normal on 07/28/22 without proteinuria or hematuria. SPEP was negative in 06/2022. 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 Paroxysmal Atrial Fibrillation (Hcc) Carotid Stenosis, Asymptomatic Hyperglycemia Anemia of Chronic Disease Ckd (Chronic Kidney Disease), Stage Iii (Hcc) Lumbar Spinal 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 Take 10 mg daily, take one additional 10 mg daily as needed for leg swelling, shortness of breath or weight gain of 5 pounds or more/1weekDisp: 30 tabletRfl: 1 (Patient taking differently: Take 20 mg by mouth once daily. 1 Tablet Every Wednesday, Wednesday, and Wednesday) Coenzyme R19-Vpuhvbp E 100-100 mg capTake by mouth.Disp: Rfl: loperamide (IMODIUM) 2 mg cap(s)Take 2 mg by mouth four times daily as needed.Disp: Rfl: nitroglycerin sublingual (NITROQUICK) 0.4 mg SL tabletDissolve 0.4 mg under the tongue every 5 minutes as needed for chest pain.Disp: Rfl: allopurinol (ZYLOPRIM) 100 mg tabletTake 2 tablets by mouth once daily. For gout.Disp: 180 tabletRfl: 1 sacubitril-valsartan (ENTRESTO) 49-51 mg tabletTake 1 tablet by mouth twice daily.Disp: Rfl: carvedilol (COREG) 25 mg tabletTake 12.5 mg by mouth twice daily with meals. Disp: Rfl: ascorbic acid, vitamin C, (VITAMIN C) 500 mg tabletTake 500 mg by mouth once daily.Disp: Rfl: Apple Cider Vinegar 500 mg tabTake by mouth.Disp: Rfl: albuterol HFA (PROVENTIL HFA, VENTOLIN HFA) 90 mcg/actuation inhalerInhale 2 Puffs as instructed every 4 hours as needed for wheezing/shortness of breath.Disp: 6.7 gRfl: 0 Cholecalciferol, Vitamin D3, 25 mcg (1,000 unit) capTake 2 capsules by mouth once daily.Disp: Rfl: apixaban (ELIQUIS) 2.5 mg tab tab(s)Take 1 tablet by mouth twice daily.Disp: 180 tabletRfl: 3 cyanocobalamin (VITAMIN B-12) 1,000 mcg tabTake 1 tablet by mouth once daily.Disp: 30 tabletRfl: 0 Euskp-3-EYV-EPA-Fish Oil 1,000 mg (120 mg-180 mg) capTake 2 g by mouth once daily.Disp: Rfl: PSYLLIUM HUSK, BULK, MISCTake 1 Packet by mouth once daily. Takes as neededDisp: Rfl: pyridoxine, vitamin B6, (VITAMIN B-6) 100 mg tabletTake 1 tablet by mouth once daily.Disp: 100 tabletRfl: 2 tamsulosin (FLOMAX) 0.4 mgTake 0.4 mg by mouth once daily.Disp: Rfl: (Patient not taking: Reported on 11/03/2022) potassium chloride SR (MICRO-K) 10 mEq CR capsuleTake 1 capsule by mouth twice daily.Disp: 30 capsuleRfl: 2 (Patient not taking: Reported on 11/03/2022) benzonatate (TESSALON PERLES) 100 mg capsuleTake 1 capsule by mouth three times daily as needed for cough.Disp: 30 capsuleRfl: 1 (Patient not taking: No sig reported) ubidecarenone/vitamin E mixed (COQ10 SG 100 ORAL)Take by mouth once daily.Disp: Rfl: (Patient not taking: No sig reported) (more content not included)... [facility] 11-03-2022 History of Present illness Narrative [facility] SERVICE DATE: 11/03/2022 SERVICE TIME: 6:12 PM CHIEF COMPLAINT: CKD follow up HPI: Mr. Covarrubias is a 87 year old male with PMH of CKD stage IIIa, mild bilateral chronic hydronephrosis. HTN, combined CHF with EF 20% (03/2022), chronic afib/flutter, chronic diarrhea, CAD status post CABG, HLD, bradycardia status post pacemaker placement, intracranial bleed due to fall, who presents for CKD follow up. For H&P please refer to my note on 07/10/2022. Today patient reports feeling overall well. His weight is remaining stable in 145 to 150 pounds. He still has LE edema, which is also stable as per patient. His diuretic schedule was recently changed by cardiology to 20 mg on MWF. His last BMP on 09/05/2022 showed creatinine of 1.84, which is actually down trended from 2.5 on 08/18/2022. He has upcoming appointment with GI due to chronic diarrhea with plan for endoscopy on 12/08/2021. UA normal on 07/28/22 without proteinuria or hematuria. SPEP was negative in 06/2022. 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 Paroxysmal Atrial Fibrillation (Hcc) Carotid Stenosis, Asymptomatic Hyperglycemia Anemia of Chronic Disease Ckd (Chronic Kidney Disease), Stage Iii (Hcc) Lumbar Spinal 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) Non-Rheumatic Mitral Regurgitation Acute Idiopathic Gout Involving Toe of Left Foot Heart Failure, Unspecified (Hcc) Chronic Combined Systolic and Diastolic Heart Failure (Hcc) MEDICATIONS: Lacto 21-Bifido 4-T-X1-B6-B12 (UP4 PROBIOTICS MEN'S) 50 billion cell -90 mg-30 mcg cap^Take 1 tablet by mouth once daily.^Disp: ^Rfl: magnesium oxide (MAG-OX) 400 mg (241.3 mg magnesium) tablet^Take 1 tablet by mouth once daily.^Disp: 30 tablet^Rfl: 1 atorvastatin (LIPITOR) 40 mg tablet^Take 1 tablet by mouth once daily.^Disp: 90 tablet^Rfl: 3 torsemide (DEMADEX) 10 mg tablet^Take 1 tablet by mouth once daily. Take 10 mg daily, take one additional 10 mg daily as needed for leg swelling, shortness of breath or weight gain of 5 pounds or more/1week^Disp: 30 tablet^Rfl: 1 (Patient taking differently: Take 20 mg by mouth once daily. 1 Tablet Every Wednesday, Wednesday, and Wednesday) Coenzyme B41-Vwzpqgd E 100-100 mg cap^Take by mouth.^Disp: ^Rfl: loperamide (IMODIUM) 2 mg cap(s)^Take 2 mg by mouth four times daily as needed.^Disp: ^Rfl: nitroglycerin sublingual (NITROQUICK) 0.4 mg SL tablet^Dissolve 0.4 mg under the tongue every 5 minutes as needed for chest pain.^Disp: ^Rfl: allopurinol (ZYLOPRIM) 100 mg tablet^Take 2 tablets by mouth once daily. For gout.^Disp: 180 tablet^Rfl: 1 sacubitril-valsartan (ENTRESTO) 49-51 mg tablet^Take 1 tablet by mouth twice daily.^Disp: ^Rfl: carvedilol (COREG) 25 mg tablet^Take 12.5 mg by mouth twice daily with meals. ^Disp: ^Rfl: ascorbic acid, vitamin C, (VITAMIN C) 500 mg tablet^Take 500 mg by mouth once daily.^Disp: ^Rfl: Apple Cider Vinegar 500 mg tab^Take by mouth.^Disp: ^Rfl: albuterol HFA (PROVENTIL HFA, VENTOLIN HFA) 90 mcg/actuation inhaler^Inhale 2 Puffs as instructed every 4 hours as needed for wheezing/shortness of breath.^Disp: 6.7 g^Rfl: 0 Cholecalciferol, Vitamin D3, 25 mcg (1,000 unit) cap^Take 2 capsules by mouth once daily.^Disp: ^Rfl: apixaban (ELIQUIS) 2.5 mg tab tab(s)^Take 1 tablet by mouth twice daily.^Disp: 180 tablet^Rfl: 3 cyanocobalamin (VITAMIN B-12) 1,000 mcg tab^Take 1 tablet by mouth once daily.^Disp: 30 tablet^Rfl: 0 Hsugj-5-WWY-EPA-Fish Oil 1,000 mg (120 mg-180 mg) cap^Take 2 g by mouth once daily.^Disp: ^Rfl: PSYLLIUM HUSK, BULK, MISC^Take 1 Packet by mouth once daily. Takes as needed^Disp: ^Rfl: pyridoxine, vitamin B6, (VITAMIN B-6) 100 mg tablet^Take 1 tablet by mouth once daily.^Disp: 100 tablet^Rfl: 2 tamsulosin (FLOMAX) 0.4 mg^Take 0.4 mg by mouth once daily.^Disp: ^Rfl: (Patient not taking: Reported on 11/03/2022) potassium chloride SR (MICRO-K) 10 mEq CR capsule^Take 1 capsule by mouth twice daily.^Disp: 30 capsule^Rfl: 2 (Patient not taking: Reported on 11/03/2022) benzonatate (TESSALON PERLES) 100 mg capsule^Take 1 capsule by mouth three times daily as needed for cough.^Disp: 30 capsule^Rfl: 1 (Patient not taking: No sig reported) ubidecarenone/vitamin E mixed (COQ10 SG 100 ORAL)^Take by mouth once daily.^Disp: ^Rfl: (Patient not taking: No sig reported) ALLERGIES: ALLERGIES Allergen Reactions Indocin [Indomethac* GI Upset Norvasc [Amlodipine* Other: See Comments Dizziness Ftbqaib-Rgj-Hzd Red* Other: See Comments myalgia Lisinopril Cough REVIEW OF SYSTEMS: Constitutional: No fever and No chills Cardiovascular: No chest pain or pressure, No PND, and No syncope Genitourinary: No hesitancy, No pink or red urine, and No dysuria PHYSICAL EXAM: BP 121/67 Pulse 63 Ht 177.8 cm (5' 10 ) Wt 68.9 kg (152 lb) BMI 21.81 kg/m BP - standardized method Pulse 1 BP #1: 122/65 Pulse #1: 60 beats/min 2 BP #2 : 107/61 Pulse #2 : 60 beats/min 3 BP #3 : 134/76 Pulse #3 : 69 beats/min Average Average BP: 121/67 Average Pulse: 63 beats/min Orthostatic vitals Supine Sitting Standing Standing BP : 121/68 Standing pulse : 62 BP cuff location BP cuff location: Left upper arm BP cuff size BP cuff size: regular adult Comments for BP values First BP (right) First BP (left) Constitutional:No acute distress, Responsive, Normal habitus, and frail elderly Neck:Trachea midline No jugular venous distension Cardiovascular:Edema present: Mild right LE edema and moderate left LE edema Regular rate and ryhthm, normal S1 and S2, no murmurs, rubs, or gallops Respiratory:Normal respiratory effort. Lung sounds notable for basilar fine crackles in left lung Abdomen:Soft, non-tender, non-distended. Normal bowel sounds. No hepatosplenomegaly. Psychiatric: Alert and oriented x self, place, time, and setting Normal mood/affect DATA: Diagnostic tests reviewed for today's visit: Glucose (mg/dL) Date Value 08/27/2022 147 10/21/2021 97 Potassium (mmol/L) Date Value 08/27/2022 4.5 10/21/2021 3.6 Sodium (mmol/L) Date Value 08/27/2022 142 10/21/2021 142 Chloride (mmol/L) Date Value 08/27/2022 107 10/21/2021 107 CO2 (mmol/L) Date Value 08/27/2022 22 10/21/2021 23 Creatinine (mg/dL) Date Value 08/27/2022 1.89 10/21/2021 1.14 BUN (mg/dL) Date Value 08/27/2022 49 10/21/2021 17 Anion Gap (mmol/L) Date Value 08/27/2022 13 10/21/2021 12 Calcium (mg/dL) Date Value 10/21/2021 9.7 Calcium, Total (mg/dL) Date Value 08/27/2022 9.9 pH, Urine Date Value Ref Range Status 07/28/2022 6.0 5.0 - 8.0 Final Specific Lenore, Ur Date Value Ref Range Status 07/28/2022 1.012 1.005 - 1.030 Final Glucose, Urine Date Value Ref Range Status 07/28/2022 Negative Negative Final Bilirubin, Urine Date Value Ref Range Status 07/28/2022 Negative Negative Final Ketones, Urine Date Value Ref Range Status 07/28/2022 Negative Negative Final Hemoglobin/Blood,Ur Date Value Ref Range Status 07/28/2022 Negative Negative Final Protein, Urine Date Value Ref Range Status 07/28/2022 Negative Negative Final Urobilinogen Date Value Ref Range Status 07/28/2022 Negative Negative Final Nitrites Date Value Ref Range Status 07/28/2022 Negative Negative Final WBC, Urine Date Value Ref Range Status 07/28/2022 0-5 /HPF 0-5 /HPF Final Renal Ultrasound 07/13/22 IMPRESSION: 1. Mild bilateral hydronephrosis unchanged from prior study. 2. Stable left renal cyst. 3. The increased cortical echogenicity described on the previous study is not appreciated on the current exam. 4. Normal urinary bladder. ASSESSMENT: 87 year old male who presents with CKD stage III. Encounter Diagnosis ICD-10-CM 1. Stage 3b chronic kidney disease (HCC) N18.32 RENAL FUNCTION PANEL BASIC METABOLIC PNL 2. Essential hypertension I10 RENAL FUNCTION PANEL BASIC METABOLIC PNL 3. Chronic 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) I50.42 RENAL FUNCTION PANEL BASIC METABOLIC PNL 4. Hydronephrosis, unspecified hydronephrosis type N13.30 5. Edema, unspecified type R60.9 6. Diarrhea, unspecified type R19.7 PLAN: -Patient with non-proteinuric CKD stage IIIb likely due to CRS +/- obstructive uropathy. Baseline Cr fluctuates depending on volume status, but lately has been ~1.8-2.0 (GFR low 30s) since 05/2022 -Previously known baseline creatinine was 1.2-1.3, last in 12/2021 -Kidney US in 04/2022 and again in 07/16 to with evidence of stable mild bilateral hydronephrosis, patient follows with urology -SPEP negative for M protein -Continue daily weight checks and diuretics as prescribed, diuresis managed by cardiology -We will repeat RFP -RTC (virtual) in 3 months with labs prior to appointment Total time, including reviewing extensive medical records prior to patient visit, ongoing management of this patient, history, physical, counseling and educating the patient/family/caregiver, ordering medications, tests, or procedures and care coordination is 35 min. Voice recognition software was used in the creation of this document. There may be unintended errors in spelling, grammar, syntax or punctuation present. Cat Chavira MD Staff, Department of Kidney Medicine Pager # [phone] 11/03/22 3:09 PM CC: PRIMARY CARE PHYSICIAN: Arnold Spencer MD documented in this encounter [facility] 11-02-2022 Note HNO ID: [id number] Author: Jacquelyn Conley RN Service: ? Author Type: Registered Nurse Type: Progress Notes Filed: 11/05/2022 10:38 AM Note Text: [facility] TELEPHONIC OUTREACH Provider Action/FYI: Called Pt left a message to verify symptom status and needs. Instructed to call PCP with any symptom or condition changes. Contact made with patient: No - Left message Hello my name is Jacquelyn Conley RN your Lockstitch Shoulder Joiner from the [facility] I am calling today for your bi-weekly check in. I am sorry I missed your call. I will reach out to you again tomorrow. (if the third call I will reach out to you again next week) Enter next patient outreach date for the following day using the Track Pt Outreach. End outreach. Jacquelyn Conley RN November 02, 2022 12:21 PM [facility] 11-02-2022 Note Patient Outreach (AM [facility]) DARCY COVARRUBIAS ([id number]) 1935 M T Date Time Provider Department 11/02/22 [facility] [place] During your visit today, we recorded the following information about you: Jacquelyn Conley RN 11/05/2022 10:38 AM Signed [facility] TELEPHONIC OUTREACH Provider Action/FYI: Called Pt left a message to verify symptom status and needs. Instructed to call PCP with any symptom or condition changes. Contact made with patient: No - Left message Iva my name is Jacquelyn Conley RN your Lockstitch Shoulder Joiner from the [facility] I am calling today for your bi-weekly check in. I am sorry I missed your call. I will reach out to you again tomorrow. (if the third call I will reach out to you again next week) Enter next patient outreach date for the following business day using the Track Pt Outreach. End outreach. Jacquelyn Conley RN November 02, 2022 12:21 PM Jacquelyn Conley RN 11/05/2022 10:38 AM Signed [facility] [facility] TELEPHONIC OUTREACH Provider Action/FYI: CHF/ CKD: Called Pt, line rang busy, unable to leave a message to verify symptom status and needs. Contact made with patient: No - Unable to leave message Entered next patient outreach date for the following business day, if third call please enter next outreach date for one week in the Track Pt. Outreach - End Outreach Jacquelyn Conley RN November 04, 2022 9:39 AM Jacquelyn Conley RN 11/05/2022 10:38 AM Signed [facility] TELEPHONIC OUTREACH Provider Action/FYI: Spk with Pt, he has intermittent dry cough, completed 11/03/[address] Cat Chavira MD Nephrology noted cough may be due to medications. Pt denies Sob, wheezing or fevers, or other symptoms BP 120/80, Wt 141 lbs Pt is scheduled 12/08/22 for Colonoscopy, related to intermittent diarrhea for 4 mths, is taking immodium, periodic Probiotics and Psyllium Denies needs. Contact made with patient: Yes Patient identified by name and . Discussed care with patient and spouse It?s nice talking to you again. As a reminder, this is our bi-weekly check-in where I will be asking you questions about your health. This will only take a few minutes of your time. Is this a good time? Yes Symptoms What Chronic Disease(s) does the patient have: CHF and CKD Do you check your blood pressures at home? Yes, Enter readings: 120/80 Do you have new or worse shortness of breath with activity? No Do you have new or worsening trouble breathing while lying flat? No Do you have new or worsening swelling of legs, feet or ankles? No Do you feel like you are dehydrated for any reason, including not being able to eat or drink normally, or having less urine/much darker urine than normal for you? No Do you check your daily weight at home? Yes, Have you noticed a sudden gain in weight greater than three pounds in a day or three pounds in a week? No Are you having any other symptoms that your PCP needs to know about? No Symptoms: N/A Symptom Escalation SEVEN Education Ordered -: No The patient required an escalation for symptom(s)? No Medications Do you have any questions about taking your medication or which medications you should be on? No Do you need any medication refills at this time, including any of the medications you might take only when needed? No Social We would like to make sure you have what you need so that your basic needs are met- including your personal safety, food, housing and medications? Would you like to speak with a social work front desk team member to help give you support for any of these needs? No It can be normal to feel anxious or down during a time like this. Would you like to talk to a mental health professional about how you have been feeling? No Closing Thank you for taking the time to talk with me today. We want to work with you to ensure that we are keeping your medical condition(s) well-controlled and to keep you healthy and out of the doctor's office or hospital. It?s also not too late for me to sign you up for automated weekly questionnaires through [employer]. This is an easy way for us to stay connected each week. Are you interested? No, I understand. We can always sign you up in the future if you change your mind. Just as a reminder, will continue to call you every other week to check in on your health. Our calls should take 10-15 minutes or less. Remember, if you have concerns in between our calls, please call your PCP's office right away. Thank you. Enter next patient outreach date for two weeks on the same day of the week as today in the Track Pt Outreach and End outreach. Jacquelyn Conley RN November 05, 2022 10:17 AM Allergies As of Date: 11/02/2022 Noted Allergy Reaction INDOCIN (INDOMETHACIN SODIUM) 03/22/2012 8 - GI Upset NORVASC (AMLODIPINE BESYLATE) 12/16/2018 14 - Other: See Comments Comments: (more content not included)... [facility] 10-14-2022 Miscellaneous Notes The following approved medication requests have been transmitted electronically. Requested Prescriptions Prescriptions Disp Refills magnesium oxide (MAG-OX) 400 mg (241.3 mg magnesium) tablet 30 tablet 1 Sig: Take 1 tablet by mouth once daily. Arnold Spencer MD Patient has been identified by name and date of : Yes Spouse phones for refill(s): Requested Prescriptions Pending Prescriptions Disp Refills magnesium oxide (MAG-OX) 400 mg (241.3 mg magnesium) tablet 30 tablet 1 Sig: Take 1 tablet by mouth once daily. Date of last office visit with pcp: 08/26/2022 Future appt: 02/02/2023 Last 2 Encounter Wt Readings: Date: Wt: 07/31/2022 64.9 kg (143 lb) 07/28/2022 65.3 kg (144 lb) Previous labs/tests for medication: Blood Pressure: BUN (mg/dL) Date Value 08/27/2022 49 10/21/2021 17 Sodium (mmol/L) Date Value 08/27/2022 142 10/21/2021 142 Last 1 Encounter BP Readings: Date: BP: 07/31/2022 127/72 Liver Function: ALT (U/L) Date Value 01/09/2022 34 10/21/2021 25 AST (U/L) Date Value 01/09/2022 41 10/21/2021 31 Please advise. Thank you. Blanquita Mireles RN documented in this encounter [facility] 10-09-2022 Miscellaneous Notes Patient has been identified by name and date of : Yes Patient phones for refill(s): Requested Prescriptions Pending Prescriptions Disp Refills atorvastatin (LIPITOR) 40 mg tablet 90 tablet 3 Sig: Take 1 tablet by mouth once daily. Date of last office visit in primary care: 09/28/22 Last 2 Encounter Wt Readings: Date: Wt: 07/31/2022 64.9 kg (143 lb) 07/28/2022 65.3 kg (144 lb) Previous labs/tests for medication: Not applicable Please advise. Thank you. Dorothy Navarrete documented in this encounter [facility] 09-29-2022 History of Present illness Narrative [facility]LE[facility]REACH Provider Action/FYI: Spk with spouse Deirdre and Pt, denies new or worsening CHF/ CKD or other symptoms. Pt has mild intermittent pedal edema in left foot greater than right foot, using compression stockings, follows a KRISTIN diet Pt was seen by Dr. Harvey Cardiology 09/24/22 ordered to take Torsemide 20 mg Wed/ Wed/Wednesday Pt is receiving Physical Therapy 2x week at [facility] in [place] BP 118-120/80, wt 150 lbs Gastroenterology Appt 10/06/22 Coco Singh at [facility] ADL/ Falls/ Goals completed Contact made with patient: Yes Patient identified by name and . Discussed care with patient and spouse It s nice talking to you again. As a reminder, this is our bi-weekly check-in where I will be asking you questions about your health. This will only take a few minutes of your time. Is this a good time? Yes Symptoms What Chronic Disease(s) does the patient have: CHF and CKD Do you check your blood pressures at home? Yes, Enter readings: 118-120/80 Do you have new or worse shortness of breath with activity? No Do you have new or worsening trouble breathing while lying flat? No Do you have new or worsening swelling of legs, feet or ankles? No Do you feel like you are dehydrated for any reason, including not being able to eat or drink normally, or having less urine/much darker urine than normal for you? No Do you check your daily weight at home? Yes, Have you noticed a sudden gain in weight greater than three pounds in a day or three pounds in a week? No Are you having any other symptoms that your PCP needs to know about? No Symptom Escalation The patient required an escalation for symptom(s)? No Medications Do you have any questions about taking your medication or which medications you should be on? No Do you need any medication refills at this time, including any of the medications you might take only when needed? No Social We would like to make sure you have what you need so that your basic needs are met- including your personal safety, food, housing and medications? Would you like to speak with a social work front desk team member to help give you support for any of these needs? No It can be normal to feel anxious or down during a time like this. Would you like to talk to a mental health professional about how you have been feeling? No Closing Thank you for taking the time to talk with me today. We want to work with you to ensure that we are keeping your medical condition(s) well-controlled and to keep you healthy and out of the doctor's office or hospital. It s also not too late for me to sign you up for automated weekly questionnaires through [employer]. This is an easy way for us to stay connected each week. Are you interested? No, I understand. We can always sign you up in the future if you change your mind. Just as a reminder, will continue to call you every other week to check in on your health. Our calls should take 10-15 minutes or less. Remember, if you have concerns in between our calls, please call your PCP's office right away. Thank you. Enter next patient outreach date for two weeks on the same day of the week as today in the Track Pt Outreach and End outreach. Jacquelyn Conley RN September 30, 2022 9:36 AM documented in this encounter [facility] 08-28-2022 History of Present illness Narrative Verified name and date of . CC Post Void Residual HPI: Darcy Covarrubias is a 87 year old male. The patient is here now for an appointment with Partha Santana, JAMARCUS, [place], PA-PORFIRIO. Procedure: Explained procedure to patient and verbalizes understanding. Performed a PVR. Patient urinated and instructed to empty bladder as much as possible just prior to having PVR done using bladder ultrasound scanner. Results of scan: 0 mL The patient tolerated the procedure well. Plan: According to previous visit: > 1 month off Flomax 0.4 mg , RTC for nurse visit for PVR only If PVR > 100 ml restart Flomax and follow-up in 3 months With Partha Santana PA-C documented in this encounter [facility] 08-28-2022 History of Present illness Narrative [facility] TELEPHONIC OUTREACH Provider Action/FYI: Spk with Pt and , Pt denies new or worsening CHF/ CKD symptoms or needs. Pt reports intermittent diarrhea for 4 mths, is taking immodium, periodic Probiotics and Psyllium. Pt has scheduled Appt 08/28/22 with Urology Nurse for PVR, 08/29/22 Dr. Fox/ Mariola Pritchett CNP Gastroenterology will address Hx diarrhea. 09/03/[address] Larios Pulmonology. Contact made with patient: Yes Patient identified by name and . Discussed care with spouse It s nice talking to you again. As a reminder, this is our bi-weekly check-in where I will be asking you questions about your health. This will only take a few minutes of your time. Is this a good time? Yes Symptoms What Chronic Disease(s) does the patient have: CHF and CKD Do you check your blood pressures at home? 122/80 Do you have new or worse shortness of breath with activity? No Do you have new or worsening trouble breathing while lying flat? No Do you have new or worsening swelling of legs, feet or ankles? No Do you feel like you are dehydrated for any reason, including not being able to eat or drink normally, or having less urine/much darker urine than normal for you? No Do you check your daily weight at home? Yes, Have you noticed a sudden gain in weight greater than three pounds in a day or three pounds in a week? No Are you having any other symptoms that your PCP needs to know about? No Symptom Escalation The patient required an escalation for symptom(s)? No Medications Do you have any questions about taking your medication or which medications you should be on? No Do you need any medication refills at this time, including any of the medications you might take only when needed? No Social We would like to make sure you have what you need so that your basic needs are met- including your personal safety, food, housing and medications? Would you like to speak with a social work front desk team member to help give you support for any of these needs? No It can be normal to feel anxious or down during a time like this. Would you like to talk to a mental health professional about how you have been feeling? No Closing Thank you for taking the time to talk with me today. We want to work with you to ensure that we are keeping your medical condition(s) well-controlled and to keep you healthy and out of the doctor's office or hospital. It s also not too late for me to sign you up for automated weekly questionnaires through [employer]. This is an easy way for us to stay connected each week. Are you interested? No, I understand. We can always sign you up in the future if you change your mind. Just as a reminder, will continue to call you every other week to check in on your health. Our calls should take 10-15 minutes or less. Remember, if you have concerns in between our calls, please call your PCP's office right away. Thank you. Enter next patient outreach date for two weeks on the same day of the week as today in the Track Pt Outreach and End outreach. Jacquelyn Conley RN August 28, 2022 11:52 AM documented in this encounter [facility] 08-19-2022 History of Present illness Narrative Nephrology brief note: Called the patient and discussed with him and his findings of the last blood work on 08/18/2022 with creatinine elevation to 2.5. Patient reports feeling well, no active complaints. He states that he swelling almost gone, and he does not have shortness of breath. He still takes torsemide 10 mg daily along with potassium supplementation. BP controlled as per patient. I recommended to start taking torsemide with potassium only if weight is increasing, but did not take it if weight remains stable. We will repeat BMP and BNP in 1 week to reassess. Patient advised to get evaluated earlier if symptoms become uncontrolled. Cat Chavira MD Staff, Department of Kidney Medicine Pager # [phone] 08/19/22 5:36 PM documented in this encounter [facility] 08-11-2022 Miscellaneous Notes Pts called and is notified of providers message. Pt voices understanding, Pts will call and schedule appointment with Dr Fox. Orders, most recent OV, and most recent labs were sent to Dr Fox at [phone]. Araceli Hassan RN Patient's calls is asking if patient can have a data report analyst referral. Patient was seen at Dr. Ortega and nurse practitioner suggested that patient have a referral for a data report analyst due to patient's chronic diarrhea. asking for referral. Please review and advise, Mary Hogan RN documented in this encounter [facility] 08-10-2022 Miscellaneous Notes Pt's called and states pt was to his kidney doctor and he is to continue on the Magnesium. He will be having blood work done 2 to 3 weeks after his last test on 07/31/22. The doctor (at the hospital)who put pt on the Magnesium instructed pt to get refills thru pcp. Patient has been identified by name and date of : Yes Spouse phones for refill(s): Requested Prescriptions Pending Prescriptions Disp Refills magnesium oxide (MAG-OX) 400 mg (241.3 mg magnesium) tablet 30 tablet 1 Sig: Take 1 tablet by mouth once daily. Date of last office visit in primary care: 07/21/22 next apt 10/13/22 Last 2 Encounter Wt Readings: Date: Wt: 07/31/2022 64.9 kg (143 lb) 07/28/2022 65.3 kg (144 lb) Previous labs/tests for medication: Not applicable Thank you. Ivana Roberts LPN documented in this encounter [facility] 08-07-2022 History of Present illness Narrative [facility] TELEPHONIC OUTREACH Provider Action/FYI: Routed updates to Dr. Spencer/ 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 CNP . Pt and are requesting a call to them directly with a Gastroenterology referral. Spk with Pt, he noted was diagnosed with Covid, Admitted 07/13/[address] [facility] due to dehydration. Pt denies current Sob, wheezing, coughing or edema, BP 117/68, wt 148 lbs, he is speaking in full sentences, no respiratory distress. Pt and is asking for a Gastroenterology referral for Acid reflux and intermittent diarrhea for past 4 months. noted he was checked for and negative for C-Diff at [facility]. Pt completed Appt 08/04/[address] Oquendos / Monik Gilbert [employer]ER, Echo is scheduled 08/17/22 at [facility], Deirdre noted Cardiology stated Joseph may need to consider an ICD in the future. Contact made with patient: Yes Patient identified by name and . Discussed care with patient and spouse It s nice talking to you again. As a reminder, this is our bi-weekly check-in where I will be asking you questions about your health. This will only take a few minutes of your time. Is this a good time? Yes Symptoms What Chronic Disease(s) does the patient have: CHF and CKD Do you check your blood pressures at home? Yes, Enter readings: 117/ 68 Do you have new or worse shortness of breath with activity? No Do you have new or worsening trouble breathing while lying flat? No Do you have new or worsening swelling of legs, feet or ankles? No Do you feel like you are dehydrated for any reason, including not being able to eat or drink normally, or having less urine/much darker urine than normal for you? No Do you check your daily weight at home? Yes, Have you noticed a sudden gain in weight greater than three pounds in a day or three pounds in a week? No Are you having any other symptoms that your PCP needs to know about? Yes Symptom Escalation The patient required an escalation for symptom(s)? No Medications Do you have any questions about taking your medication or which medications you should be on? No Do you need any medication refills at this time, including any of the medications you might take only when needed? No Social We would like to make sure you have what you need so that your basic needs are met- including your personal safety, food, housing and medications? Would you like to speak with a social work front desk team member to help give you support for any of these needs? No It can be normal to feel anxious or down during a time like this. Would you like to talk to a mental health professional about how you have been feeling? No Closing Thank you for taking the time to talk with me today. We want to work with you to ensure that we are keeping your medical condition(s) well-controlled and to keep you healthy and out of the doctor's office or hospital. It s also not too late for me to sign you up for automated weekly questionnaires through [employer]. This is an easy way for us to stay connected each week. Are you interested? No, I understand. We can always sign you up in the future if you change your mind. Just as a reminder, will continue to call you every other week to check in on your health. Our calls should take 10-15 minutes or less. Remember, if you have concerns in between our calls, please call your PCP's office right away. Thank you. Enter next patient outreach date for two weeks on the same day of the week as today in the Track Pt Outreach and End outreach. Jacquelyn Conley RN August 07, 2022 11:41 AM documented in this encounter [facility] 08-04-2022 Miscellaneous Notes Faxed Ordered, please print and fax Enid Marie APRN.SB Wanting a referral to [facility] for physical therapy. Lindsey Gómez LPN documented in this encounter [facility] 07-31-2022 Instructions Cat Chavira MD - 07/31/2022 3:19 PM EDT You kidney function is improving after hospital discharge, but not normal yet Let's get blood work done in 2-3 weeks to ensure kidney function is stable or continues to improve Please, discuss with your Urologist your kidney ultrasound results showing swelling (mild hydronephrosis) on both sides Continue weight checks and water pills as prescribed Follow up in 3 months documented in this encounter [facility] 07-31-2022 History of Present illness Narrative [facility] SERVICE DATE: 07/31/2022 SERVICE TIME: 2:53 PM CHIEF COMPLAINT: Post hospital discharge follow-up HPI: Mr. 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 Per my HPI note on 07/10/22: Patient had had CKD stage III with baseline creatinine 1.2-1.3 (GFR 58-62), last in 12/2021. Patient had hospital admission in 04/2022 for COVID. During hospital stay he developed diarrhea, and also had an MARCOS with creatinine peaked at 2.07. Due to lack of available records, not clear creatinine trend after that, creatinine was 2.0 on 06/23/2022 --> 1.57 on 07/06/2022. Patient had kidney US done on 05/09/2022, showed right kidney 9.4 cm, left kidney 10.9 cm, bilaterally increased renal echogenicity consistent with medical renal disease, left renal cyst, mild bilateral hydronephrosis. HTN: BP not at goal, BP today 145/81 mmHg. Patient is taking carvedilol 25 mg twice daily, spironolactone 25 mg daily, Entresto twice daily. He was also prescribed furosemide, but he has not been taking it because he was feeling that his diarrhea is getting worse when on furosemide. CHF: Combined systolic and diastolic, with last EF 20% in 03/2022. Patient is currently on spironolactone only and not on loop diuretics (self discontinued due to feeling that it worsens his diarrhea). He endorses bilateral LE edema and weight gain (from 150 to 160 pounds 2 weeks). Diarrhea: States that he has had it since his COVID in 04/2022, overall better, but still has 1-2 watery bowel movements a day. Potential etiology of creatinine elevation (MARCOS vs CKD) is cardiorenal in setting of CHF with EF 20% and evidence of fluid overload, obstructive uropathy with evidence of mild bilateral hydronephrosis with kidney US in 04/2022. Prerenal etiology in setting of diarrhea is currently less likely as no evidence of volume depletion on exam Interval hx: Pt was admitted to [facility] July 13 through July 15 with progressively worsening shortness of breath for several weeks prior to arrival along with chest discomfort, treated for CHF exacerbation and fluid overload, diuresed. Developed MARCOS during admission with Cr 2.27 after discharge on 07/20/22 -->2.06 (GFR 31) on 07/28/22. On Torsemide 10 mg daily with additional dosing PRN for swelling or dyspnea. Also placed on Flomax by Urology on 07/28/22 for BPH. UA normal on 07/28/22 without proteinuria or hematuria. SPEP was negative in 06/2022. Renal Ultrasound 07/13/22 IMPRESSION: 1. Mild bilateral hydronephrosis unchanged from prior study. 2. Stable left renal cyst. 3. The increased cortical echogenicity described on the previous study is not appreciated on the current exam. 4. Normal urinary bladder. Today he reports feeling significantly better, LE edema improved. He maintains his weight at 140 pounds. Diarrhea has also improved (he states that [place] cheese helps him with that). He is continued on torsemide 10 mg daily, compliant with medication. 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 Take 10 mg daily, take one additional 10 mg daily as needed for leg swelling, shortness of breath or weight gain of 5 pounds or more/1week^Disp: 30 tablet^Rfl: 1 Coenzyme Z98-Reumwje E 100-100 mg cap^Take by mouth.^Disp: ^Rfl: loperamide (IMODIUM) 2 mg cap(s)^Take 2 mg by mouth four times daily as needed.^Disp: ^Rfl: magnesium oxide (MAG-OX) 400 mg (241.3 mg magnesium) tablet^Take 400 mg by mouth once daily.^Disp: ^Rfl: nitroglycerin sublingual (NITROQUICK) 0.4 mg SL tablet^Dissolve 0.4 mg under the tongue every 5 minutes as needed for chest pain.^Disp: ^Rfl: tamsulosin (FLOMAX) 0.4 mg^Take 0.4 mg by mouth once daily.^Disp: ^Rfl: potassium chloride SR (MICRO-K) 10 mEq CR capsule^Take 1 capsule by mouth twice daily.^Disp: 30 capsule^Rfl: 2 allopurinol (ZYLOPRIM) 100 mg tablet^Take 2 tablets by mouth once daily. For gout.^Disp: 180 tablet^Rfl: 1 sacubitril-valsartan (ENTRESTO) 49-51 mg tablet^Take 1 tablet by mouth twice daily.^Disp: ^Rfl: carvedilol (COREG) 25 mg tablet^Take 12.5 mg by mouth twice daily with meals. ^Disp: ^Rfl: ascorbic acid, vitamin C, (VITAMIN C) 500 mg tablet^Take 500 mg by mouth once daily.^Disp: ^Rfl: Apple Cider Vinegar 500 mg tab^Take by mouth.^Disp: ^Rfl: albuterol HFA (PROVENTIL HFA, VENTOLIN HFA) 90 mcg/actuation inhaler^Inhale 2 Puffs as instructed every 4 hours as needed for wheezing/shortness of breath.^Disp: 6.7 g^Rfl: 0 Cholecalciferol, Vitamin D3, 25 mcg (1,000 unit) cap^Take 2 capsules by mouth once daily.^Disp: ^Rfl: atorvastatin (LIPITOR) 40 mg tablet^Take 1 tablet by mouth once daily.^Disp: 90 tablet^Rfl: 3 apixaban (ELIQUIS) 2.5 mg tab tab(s)^Take 1 tablet by mouth twice daily.^Disp: 180 tablet^Rfl: 3 cyanocobalamin (VITAMIN B-12) 1,000 mcg tab^Take 1 tablet by mouth once daily.^Disp: 30 tablet^Rfl: 0 Hdpee-2-REL-EPA-Fish Oil 1,000 mg (120 mg-180 mg) cap^Take 2 g by mouth once daily.^Disp: ^Rfl: PSYLLIUM HUSK, BULK, MISC^Take 1 Packet by mouth once daily. Takes as needed^Disp: ^Rfl: pyridoxine, vitamin B6, (VITAMIN B-6) 100 mg tablet^Take 1 tablet by mouth once daily.^Disp: 100 tablet^Rfl: 2 benzonatate (TESSALON PERLES) 100 mg capsule^Take 1 capsule by mouth three times daily as needed for cough.^Disp: 30 capsule^Rfl: 1 (Patient not taking: No sig reported) ubidecarenone/vitamin E mixed (COQ10 SG 100 ORAL)^Take by mouth once daily.^Disp: ^Rfl: (Patient not taking: Reported on 07/31/2022) ALLERGIES: ALLERGIES Allergen Reactions Indocin [Indomethac* GI Upset Norvasc [Amlodipine* Other: See Comments Dizziness Meizqog-Vak-Bzf Red* Other: See Comments myalgia Lisinopril Cough REVIEW OF SYSTEMS: Constitutional: No fever, No chills, and No weight loss Cardiovascular: No chest pain or pressure, No dyspnea on exertion, No palpitations, and positive for orthostatic dizziness Genitourinary: No hesitancy, No frequency, No flank pain, and No dysuria PHYSICAL EXAM: BP 127/72 Pulse 94 Ht 177.8 cm (5' 10 ) Wt 64.9 kg (143 lb) BMI 20.52 kg/m BP - standardized method Pulse 1 BP #1: 126/76 Pulse #1: 83 beats/min 2 BP #2 : 124/68 Pulse #2 : 95 beats/min 3 BP #3 : 131/73 Pulse #3 : 104 beats/min Average Average BP: 127/72 Average Pulse: 94 beats/min Orthostatic vitals Supine Sitting Standing Standing BP : 116/62 Standing pulse : 75 BP cuff location BP cuff location: Left upper arm BP cuff size BP cuff size: regular adult Comments for BP values First BP (right) First BP (left) Constitutional:No acute distress, Responsive, Normal habitus, and Thin Neck:Trachea midline No jugular venous distension Cardiovascular:Edema present: Mild bilateral LE edema Regular rate and ryhthm, normal S1 and S2, no murmurs, rubs, or gallops Respiratory:Normal respiratory effort. Lungs clear bilaterally. Abdomen:Soft, non-tender, non-distended. Normal bowel sounds. No hepatosplenomegaly. Psychiatric: Alert and oriented x self, place, time, and setting Normal mood/affect DATA: Diagnostic tests reviewed for today's visit: Glucose (mg/dL) Date Value 07/28/2022 127 10/21/2021 97 Potassium (mmol/L) Date Value 07/28/2022 3.7 10/21/2021 3.6 Sodium (mmol/L) Date Value 07/28/2022 141 10/21/2021 142 Chloride (mmol/L) Date Value 07/28/2022 100 10/21/2021 107 CO2 (mmol/L) Date Value 07/28/2022 28 10/21/2021 23 Creatinine (mg/dL) Date Value 07/28/2022 2.06 10/21/2021 1.14 BUN (mg/dL) Date Value 07/28/2022 65 10/21/2021 17 Anion Gap (mmol/L) Date Value 07/28/2022 13 10/21/2021 12 Calcium (mg/dL) Date Value 10/21/2021 9.7 Calcium, Total (mg/dL) Date Value 07/28/2022 9.9 pH, Urine Date Value Ref Range Status 07/28/2022 6.0 5.0 - 8.0 Final Specific Lenore, Ur Date Value Ref Range Status 07/28/2022 1.012 1.005 - 1.030 Final Glucose, Urine Date Value Ref Range Status 07/28/2022 Negative Negative Final Bilirubin, Urine Date Value Ref Range Status 07/28/2022 Negative Negative Final Ketones, Urine Date Value Ref Range Status 07/28/2022 Negative Negative Final Hemoglobin/Blood,Ur Date Value Ref Range Status 07/28/2022 Negative Negative Final Protein, Urine Date Value Ref Range Status 07/28/2022 Negative Negative Final Urobilinogen Date Value Ref Range Status 07/28/2022 Negative Negative Final Nitrites Date Value Ref Range Status 07/28/2022 Negative Negative Final WBC, Urine Date Value Ref Range Status 07/28/2022 0-5 /HPF 0-5 /HPF Final ASSESSMENT: 87 year old male who presents for MARCOS follow-up. Encounter Diagnosis ICD-10-CM 1. MARCOS (acute kidney injury) (HCC) N17.9 2. Edema, unspecified type R60.9 3. Hydronephrosis, unspecified hydronephrosis type N13.30 4. Essential hypertension I10 5. Chronic 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) I50.42 6. Gout with manifestations M10.9 PLAN: -Patient with recurrent MARCOS's due to CRS in setting of CHF exacerbation -UA without proteinuria or hematuria -Known baseline creatinine 1.2-1.3, last in 12/2021 -Kidney US in 04/2022 and again in 07/16 to with evidence of stable mild bilateral hydronephrosis, patient follows with urology -SPEP negative for M protein -Continue daily weight checks and diuretics as prescribed. Patient has appointment with cardiology scheduled early next week -We will repeat RFP and magnesium in 2 to 3 weeks -RTC in 3 months Total time, including reviewing extensive medical records prior to patient visit, related to ongoing management of this patient, history, physical, counseling in detail with family as outlined above, and coordination of care is 35 min Voice recognition software was used in the creation of this document. There may be unintended errors in spelling, grammar, syntax or punctuation present. Cat Chavira MD Staff, Department of Kidney Medicine Pager # [phone] 07/30/22 8:53 PM CC: PRIMARY CARE PHYSICIAN: Arnold Spencer MD documented in this encounter [facility] 2022 Miscellaneous Notes Pt and called and notified of providers results and instructions. They voice understanding. Araceli Hassan RN Labs show creatinine improved. Potassium improved. BUN elevated. Recommend sufficient fluid intake and one torsemide daily today and tomorrow, then adjust according to timber skidder recommendations. Glucose elevated, will check A1c with next lab draw. For now recommend avoiding sugary foods in diet. Hemoglobin A1C (%) Date Value 10/21/2021 5.6 Component Latest Ref Rng & Units 07/20/2022 07/28/2022 Glucose 74 - 99 mg/dL 106 (H) 127 (H) BUN 9 - 24 mg/dL 38 (H) 65 (H) Creatinine 0.73 - 1.22 mg/dL 2.27 (H) 2.06 (H) Sodium 136 - 144 mmol/L 140 141 Potassium 3.7 - 5.1 mmol/L 3.4 (L) 3.7 Chloride 97 - 105 mmol/L 99 100 CO2 22 - 30 mmol/L 29 28 Anion Gap 9 - 18 mmol/L 12 13 Calcium 8.5 - 10.2 mg/dL 9.5 9.9 eGFR >=60 mL/min/1.73m 28 (L) 31 (L) documented in this encounter [facility] 07-28-2022 History of Present illness Narrative Images from the original note were not included. [facility] NEW PATIENT CLINIC NOTE SERVICE DATE: 07/28/2022 SERVICE TIME: 2:07 PM NAME: Darcy Covarrubias CHIEF COMPLAINT: Flomax and Renal Cyst, CKD HISTORY OF PRESENT ILLNESS: Darcy Covarrubias is a 86 year old Male with PMH including CKD and Simple Left renal cyst unchanged on CT in Jun 2022 presenting for follow up Due to being put on Flomax during his last hospitalization, however, he states he does not feel like he had any LUTS or problems with prostate or bladder The patient reports taking Flomax only for 1 month but had no had any problem with urine retention in the past Which is thought to be contributing to his CKD. So he will Stop the Flomax for 1 month and follow up for PVR and if he is < 100 ml he does not need to be on Flomax If > 100 ml I will refill it and keep him on it. LUTS: None Other symptoms: LABS: No results found for: TESTOST No results found for: TESTFREE No results found for: PSA Hematocrit (%) Date Value 01/09/2022 34.0 10/21/2021 36.5 08/15/2021 33.2 07/24/2021 32.3 MEDICATIONS: torsemide (DEMADEX) 10 mg tablet^Take 1 tablet by mouth once daily. Take 10 mg daily, take one additional 10 mg daily as needed for leg swelling, shortness of breath or weight gain of 5 pounds or more/1week^Disp: 30 tablet^Rfl: 1 Coenzyme [id number] E 100-100 mg cap^Take by mouth.^Disp: ^Rfl: loperamide (IMODIUM) 2 mg cap(s)^Take 2 mg by mouth four times daily as needed.^Disp: ^Rfl: magnesium oxide (MAG-OX) 400 mg (241.3 mg magnesium) tablet^Take 400 mg by mouth once daily.^Disp: ^Rfl: nitroglycerin sublingual (NITROQUICK) 0.4 mg SL tablet^Dissolve 0.4 mg under the tongue every 5 minutes as needed for chest pain.^Disp: ^Rfl: tamsulosin (FLOMAX) 0.4 mg^Take 0.4 mg by mouth once daily.^Disp: ^Rfl: potassium chloride SR (MICRO-K) 10 mEq CR capsule^Take 1 capsule by mouth twice daily.^Disp: 30 capsule^Rfl: 2 allopurinol (ZYLOPRIM) 100 mg tablet^Take 2 tablets by mouth once daily. For gout.^Disp: 180 tablet^Rfl: 1 sacubitril-valsartan (ENTRESTO) 49-51 mg tablet^Take 1 tablet by mouth twice daily.^Disp: ^Rfl: carvedilol (COREG) 25 mg tablet^Take 12.5 mg by mouth twice daily with meals. ^Disp: ^Rfl: ascorbic acid, vitamin C, (VITAMIN C) 500 mg tablet^Take 500 mg by mouth once daily.^Disp: ^Rfl: ubidecarenone/vitamin E mixed (COQ10 SG 100 ORAL)^Take by mouth once daily.^Disp: ^Rfl: albuterol HFA (PROVENTIL HFA, VENTOLIN HFA) 90 mcg/actuation inhaler^Inhale 2 Puffs as instructed every 4 hours as needed for wheezing/shortness of breath.^Disp: 6.7 g^Rfl: 0 Cholecalciferol, Vitamin D3, 25 mcg (1,000 unit) cap^Take 2 capsules by mouth once daily.^Disp: ^Rfl: atorvastatin (LIPITOR) 40 mg tablet^Take 1 tablet by mouth once daily.^Disp: 90 tablet^Rfl: 3 apixaban (ELIQUIS) 2.5 mg tab tab(s)^Take 1 tablet by mouth twice daily.^Disp: 180 tablet^Rfl: 3 cyanocobalamin (VITAMIN B-12) 1,000 mcg tab^Take 1 tablet by mouth once daily.^Disp: 30 tablet^Rfl: 0 PSYLLIUM HUSK, BULK, MISC^Take 1 Packet by mouth once daily. Takes as needed^Disp: ^Rfl: pyridoxine, vitamin B6, (VITAMIN B-6) 100 mg tablet^Take 1 tablet by mouth once daily.^Disp: 100 tablet^Rfl: 2 benzonatate (TESSALON PERLES) 100 mg capsule^Take 1 capsule by mouth three times daily as needed for cough.^Disp: 30 capsule^Rfl: 1 (Patient not taking: No sig reported) Apple Cider Vinegar 500 mg tab^Take by mouth.^Disp: ^Rfl: (Patient not taking: No sig reported) Dacwa-1-RIM-EPA-Fish Oil 1,000 mg (120 mg-180 mg) cap^Take 2 g by mouth once daily.^Disp: ^Rfl: (Patient not taking: No sig reported) 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, mild MVP Other symptoms involving digestive system(787.99) Statin intolerance PAST SURGICAL HISTORY: PAST SURGICAL HISTORY Procedure Laterality Date COLONOSCOPY 10/17/03 COLONOSCOPY FLX DX W/COLLJ SPEC WHEN PFRMD 10/04/12 Colonoscopy repeat 10 years CORONARY ARTERY BYPASS GRAFT EYE SURGERY HX Lasik PACEMAKER PAST SURGICAL HISTORY OF cabg SIGMOIDOSCOPY FLX DX W/COLLJ SPEC BR/WA IF PFRMD 07/27/2013 Collagenous colitis FAMILY HISTORY: FAMILY HISTORY Problem Relation Age of Onset other (diverticulitis) Mother None Father blood clot post surgery other (Diverticulitis) Sister other (dementia) Sister other (Black lung) Maternal Grandfather SOCIAL HISTORY: Social Connections: Not on file REVIEW OF SYSTEMS: GENERAL: No fever, chills, weight loss, or fatigue. ENMT: Negative CARDIOVASCULAR:NO CHEST PAIN, PALPITATIONS, ANKLE EDEMA RESPIRATORY: No chronic cough, wheezing, dyspnea, hemoptysis. GENITOURINARY: SEE HPI MUSCULOSKELETAL:NO CHRONIC BACK PAIN, ARTHRITIS, CHRONIC NECK PAIN SKIN: NO VARICOSE VEINS, RASH, ABNORMAL ITCHING HEME/LYMPH/IMMUNE:Negative for prolonged bleeding, bruising easily or swollen nodes NEUROLOGICAL: NO HEADACHES, NUMBNESS, SEIZURES, STROKE DIABETES: no All other systems reviewed and are negative PHYSICAL EXAMINATION: Blood pressure 110/70, pulse 108, temperature 36.1 C (97 F), temperature source Temporal, resp. rate 14, height 177.8 cm (5' 10 ), weight 65.3 kg (144 lb), SpO2 96 %. GENERAL: WNL nutrition, no deformities, healthy appearing NEURO: Awake, alert and oriented x 3 and Normal gait PSYCH: No signs of depression, anxiety, or agitation ENMT (Ear, Nose, Mouth, Throat): No masses, adenopathy, icterus. Thyroid nonpalpable RESP: NL effort, no retractions or purse-lip breathing. CV: No extremity swelling, varices, edema, pallor, erythema GASTROINTESTINAL: Soft, nontender, nondistended, no masses. HERNIAS: None SKIN: No rash, lesions No palpable lymphadenopathy MUSCULOSKELETAL: Extremities normal. No deformities, edema, clubbing or skin discoloration. PROBLEM LIST REVIEW: Yes LABS: Results for orders placed or performed in visit on 07/28/22 UA DIP, URINE (POC) Result Value Ref Range GLUCOSE UA (POCT) Negative Negative mg/dL BILIRUBIN UA (POCT) Negative Negative KETONE UA (POCT) Negative Negative mg/dL SPECIFIC GRAVITY UA (POCT) 1.010 1.005 - 1.030 HEMOGLOBIN/BLOOD UA (POCT) Negative Negative PH UA (POCT) 5.5 4.5 - 8.0 PROTEIN UA (POCT) Negative Negative mg/dL UROBILINOGEN UA (POCT) 0.2 Normal E.U./dL NITRITE UA (POCT) Negative Negative LEUKOCYTES UA (POCT) Negative Negative COLOR UA (POCT) Light yellow CLARITY UA (POCT) Clear PROCEDURES: PVR:0 ml IMAGING: CT - 06/2022 Left Renal Cyst - Benign and units unchanged IMPRESSION/PLAN: 86 year old male with . 1. 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 - ICD9: 600.00, ICD10: N40.0 Placed on Flomax PVR today 0 ml Recheck when off Flomax x 1 month PVR with Nurse JAMARCUS Steve MT, PA-C Verified name and date of . CC Post Void Residual HPI: Darcy Covarrubias is a 86 year old male. The patient is here now for an appointment with JAMARCUS Steve MT, PA-COV. Procedure: Explained procedure to patient and verbalizes understanding. Performed a PVR. Patient urinated and instructed to empty bladder as much as possible just prior to having PVR done using bladder ultrasound scanner. Results of scan: 0 mL The patient tolerated the procedure well. Plan: Appointment with Partha. documented in this encounter [facility] 07-21-2022 Instructions 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 APRN.CHEMICAL EDUCATOR - 07/21/2022 3:36 PM EDT Take torsemide 10 mg daily. Take an additional 10 mg dose if leg swelling, shortness of breath or 3 pound or greater weight gain. Take potassium once daily while taking torsemide documented in this encounter [facility] 07-21-2022 History of Present illness Narrative Transitional Care Management Progress Note The patients TCM visit was performed within the 7 days of discharge. Patient's Date of discharge: July 15, 2022 Date of initial coordinator contact after discharge: July 16, 2022 Provider Documentation: In follow-up of hospitalization, Darcy Covarrubias is a 86 year old male with the chief complaint of acute on chronic systolic heart failure I have reviewed the patient s last hospital course including diagnostic testing performed during this hospitalization, their discharge medications, and my assessment and plan with the patient and any family members present at today s visit. HPI: He was admitted to [facility] July 13 through July 15 with progressively worsening shortness of breath for several weeks prior to arrival along with chest discomfort. Recent echocardiogram at [facility] showed ejection fraction of 20%, severe global hypokinesis, 1-2+ eccentric mitral regurgitation, RVSP 44 mmHg. 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 He was treated with Lasix 40 mg IV twice daily while hospitalized. 1500 mL fluid restriction. Daily weights. Kidney and electrolyte monitoring. Followed by [facility], . He was seen by cardiology during his admission, he was continued on goal-directed heart failure management with diuretics Entresto and beta-sury. His status improved while admitted He was discharged on torsemide 20 mg oral daily and Lasix 40 mg daily. He was noted to have hypomagnesia during admission and was treated with IV magnesium, provided with magnesium oxide 400 mg to be taken twice daily as outpatient. ACS was ruled out. CKD stage IV. Renal ultrasound completed during admission showed mild bilateral hydronephrosis unchanged from prior study. Stable left renal cysts. He was started on Flomax as BPH may have been cause for bilateral small hydronephrosis. Bicarbonate was discontinued during his admission. He was continued on oral anticoagulation for atrial fibrillation flutter. 1 week recheck of BMP and magnesium advised. Advised to follow-up with timber skidder and banquet kitchen supervisor. Advised to follow-up with urologist Dr. Douglas. Medication review completed Yes Presents today feeling improved. SO- and daughter at visit. Shortness of breath: improved Leg swelling: reduced Weight: reduced by 11 pounds Chest pain: none reported since discharge Cardiology appointment: scheduled in July Urology appointment: not yet scheduled Nephrology appointment: in July Refills: states none needed today PAST MEDICAL HISTORY: Reviewed and updated ALLERGIES: Reviewed and updated MEDICATIONS: Reviewed and updated SOCIAL HISTORY: Reviewed and updated FAMILY HISTORY: Reviewed and updated REVIEW OF SYSTEMS: GENERAL: Weight loss RESPIRATORY: See HPI CARDIOVASCULAR: Negative for chest pain, leg swelling, hypertension, CHF or palpitations All other systems reviewed and negative, other than HPI. PHYSICAL EXAMINATION BP 120/68 Pulse 60 Resp 16 Wt 144 lb (65.3kg) SpO2 99% General appearance: well appearing, alert, in no acute distress, and well-hydrated, well nourished, motor and sensory appear to be normal Lungs: clear to auscultation no wheezing or rhonchi Heart: RRR without murmur, gallop, or rubs. No ectopy Abdomen: Abdomen soft, non-tender. Bowel sounds normal. No masses, organomegaly Extremities: Edema: 1-2+ ankle 1. I have reviewed the patient record including associated test results during the last hospitalization Yes 2. I have reviewed Lab test Yes 3. I have reviewed Radiology test Yes 4. I reviewed assessment/plan with the patient/family member Yes Component Latest Ref Rng & Units 05/25/2022 06/23/2022 07/06/2022 07/20/2022 Glucose 74 - 99 mg/dL 105 (H) 101 (H) 98 106 (H) BUN 9 - 24 mg/dL 20 18 21 38 (H) Creatinine 0.73 - 1.22 mg/dL 1.66 (H) 2.00 (H) 1.57 (H) 2.27 (H) Sodium 136 - 144 mmol/L 142 142 143 140 Potassium 3.7 - 5.1 mmol/L 3.6 (L) 3.1 (L) 3.3 (L) 3.4 (L) Chloride 97 - 105 mmol/L 110 (H) 106 (H) 107 (H) 99 CO2 22 - 30 mmol/L 21 (L) 24 21 (L) 29 Anion Gap 9 - 18 mmol/L 11 12 15 12 Calcium 8.5 - 10.2 mg/dL 9.0 8.6 9.2 9.5 eGFR >=60 mL/min/1.73m 40 (L) 32 (L) 43 (L) 28 (L) ASSESSMENT/PLAN 1. Acute on chronic systolic CHF (congestive heart failure) (HCC) - ICD9: 428.23, 428.0, ICD10: I50.23 (primary diagnosis) 2. Encounter for immunization - ICD9: V03.89, ICD10: Z23 - PFIZER-BIONTSharalike COVID-19 BIVALENT BOOSTER VACCINE, AGE 12+ YR - INFLUENZA SEASONAL QUADRIVALENT HIGH DOSE AGE 65+ 3. 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 - ICD9: 600.00, ICD10: N40.0 - CONSULT TO UROLOGY 4. Chronic 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) - ICD9: 428.42, 428.0, ICD10: I50.42 - TORSEMIDE 10 MG TABLET - BASIC METABOLIC PNL 5. MARCOS (acute kidney injury) (HCC) - ICD9: 584.9, ICD10: N17.9 - TORSEMIDE 10 MG TABLET - BASIC METABOLIC PNL His dose of torsemide was increased to 20 mg daily with recommendation to take an additional 10 mg dose at 5 PM as needed for leg swelling weight gain of 5 pounds in 1 week. BUN and creatinine are elevated, will decrease torsemide to 10 mg daily, take 1 additional 10 mg daily as needed for leg swelling, shortness of breath or weight gain of 5 pounds or more/1week. 1500 ml fluid intake endorsed. Replete potassium. Check BMP in about 1 week with next lab work. Add-on lab to complete magnesium which was not completed yesterday. 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 APRN.CNS July 21, 2022 12:59 PM documented in this encounter [facility] 07-17-2022 History of Present illness Narrative INSIGHT CDM TELEPHONIC OUTREACH Provider Action/FYI: Call to Pt related to symptom status, unable to leave a message. Contact made with patient: No - Unable to leave message Entered next patient outreach date for the following business day, if third call please enter next outreach date for one week in the Track Pt. Outreach - End Outreach Jacquelyn Conley RN July 17, 2022 2:01 PM documented in this encounter [facility] 07-16-2022 History of Present illness Narrative TRANSITION CARE MANAGEMENT (TCM) INITIAL CONTACT Assistant Distribution Manager Outreach Provider Action/FYI: TCM Initial contact with patient post discharge, spoke to spouse. Patient identified by name and . TRANSITION CARE MANAGEMENT INITIAL OUTREACH DOCUMENTATION: Date of Outreach: 07/16/2022 Outreach Attempt 1: Contact Made Date of Discharge 07/15/2022 Some recent data might be hidden SUMMARY: -Pt discharged from [facility] on 07/15/22. -Admitted for: chest pain and exac CHF Do you have a hospital follow up appointment with your PCP? Appointment on 07/21/22 with 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. Yes. Remind patient of appointment date, time, and location. If not within 14 calendar days of discharge - please reschedule accordingly. MEDICATIONS: Many patients have questions or concerns about their medications once they are home. Were you prescribed any new medications? If yes, what are those medications? Pts torsmide was 20 mg daily Were you told to hold any medications? No but spouse is holding pt spironolactone since the torsemide was increased. [facility] did not have spironolactone on pts discharge med list. Were any of your medications discontinued? No Do you have any questions about getting or taking your medications? Yes she will review at 07/21/22 appt with MEAT PICKLER. She has also reached out to the timber skidder to get a sooner appt since pt was just recently in the hospital. Your discharge instructions/After visit Summary (AVS) are important in guiding you through the recovery process. Is there anything I might help you understand? No Do you have all the necessary equipment and supplies at home? Yes Medical records from recent hospitalization: Placed for provider to review Spouse says no HHS was offered. Pt is needed a urology consult. The would like to stay with [facility]. documented in this encounter [facility] 07-16-2022 Miscellaneous Notes Joseph's Deirdre called saying after the appointment on 07/10 Joseph ended up in the hospital. When he was released they suggested that he come and see you within 2 weeks but you have no appointments until August. would like for you to call. [phone]. [facility] [place]. documented in this encounter [facility] 07-10-2022 Instructions Cat Chavira MD - 07/10/2022 4:52 PM EDT You kidney function is at 43% at this time Please, get blood work, urine tests and kidney ultrasound done If kidney ultrasound will show kidney blockage/swelling, I will send referral to Urology for further evaluation I recommend to restart water pills to help your heart and to improve leg swelling. I will send prescription for Torsemide 10 mg daily to your pharmacy Please, monitor your weight daily, as well as your leg swelling. If your weight/swelling is not improving on water pills, please, contact your cardiology for further instruction. Please, follow with your banquet kitchen supervisor at your closest convenience Follow up in 2-3 months with blood test prior to your appt documented in this encounter [facility] 07-10-2022 History of Present illness Narrative [facility] SERVICE DATE: 07/10/2022 SERVICE TIME: 3:09 PM REASON FOR CONSULT: I am asked to see this patient in consultation for my opinion regarding impaired kidney function. My recommendations will be communicated by way of shared medical record, fax, or mail. REQUESTING PHYSICIAN: Self PRIMARY CARE PHYSICIAN: Arnold Spencer MD CHIEF COMPLAINT: Impaired kidney function, chronic diarrhea, LE edema HPI: Mr. Covarrubias is a 86 year old male with PMH of CKD stage IIIa, HTN, combined CHF with EF 20% (03/2022), chronic diarrhea, CAD status post CABG, HLD, bradycardia status post pacemaker placement, intracranial bleed due to fall, who presents for evaluation of abnormal kidney function. Chart reviewed. Patient had had CKD stage III with baseline creatinine 1.2-1.3 (GFR 58-62), last in 12/2021. Patient had hospital admission in 04/2022 for COVID. During hospital stay he developed diarrhea, and also had an MARCOS with creatinine peaked at 2.07. Due to lack of available records, not clear creatinine trend after that, creatinine was 2.0 on 06/23/2022 --> 1.57 on 07/06/2022. Patient had kidney US done on 05/09/2022, showed right kidney 9.4 cm, left kidney 10.9 cm, bilaterally increased renal echogenicity consistent with medical renal disease, left renal cyst, mild bilateral hydronephrosis. HTN: BP not at goal, BP today 145/81 mmHg. Patient is taking carvedilol 25 mg twice daily, spironolactone 25 mg daily, Entresto twice daily. He was also prescribed furosemide, but he has not been taking it because he was feeling that his diarrhea is getting worse when on furosemide. CHF: Combined systolic and diastolic, with last EF 20% in 03/2022. Patient is currently on spironolactone only and not on loop diuretics (self discontinued due to feeling that it worsens his diarrhea). He endorses bilateral LE edema and weight gain (from 150 to 160 pounds 2 weeks). Diarrhea: States that he has had it since his COVID in 04/2022, overall better, but still has 1-2 watery bowel movements a day. 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, mild MVP Other symptoms involving digestive system(787.99) Statin intolerance PAST SURGICAL HISTORY: PAST SURGICAL HISTORY Procedure Laterality Date COLONOSCOPY 10/17/03 COLONOSCOPY FLX DX W/COLLJ SPEC WHEN PFRMD 10/04/12 Colonoscopy repeat 10 years CORONARY ARTERY BYPASS GRAFT EYE SURGERY HX Lasik PACEMAKER PAST SURGICAL HISTORY OF cabg SIGMOIDOSCOPY FLX DX W/COLLJ SPEC BR/WA IF PFRMD 07/27/2013 Collagenous colitis FAMILY HISTORY: FAMILY HISTORY Problem Relation Age of Onset other (diverticulitis) Mother None Father blood clot post surgery other (Diverticulitis) Sister other (dementia) Sister other (Black lung) Maternal Grandfather SOCIAL HISTORY: Social History Tobacco Use Smoking status: Never Smokeless tobacco: Never Vaping Use Vaping Use: Never used Substance Use Topics Alcohol use: No Drug use: No MEDICATIONS: sacubitril-valsartan (ENTRESTO) 49-51 mg tablet^Take 1 tablet by mouth twice daily.^Disp: ^Rfl: carvedilol (COREG) 25 mg tablet^Take 12.5 mg by mouth twice daily with meals. ^Disp: ^Rfl: spironolactone (ALDACTONE) 25 mg tablet^Take 1 tablet by mouth once daily.^Disp: ^Rfl: ascorbic acid, vitamin C, (VITAMIN C) 500 mg tablet^Take 500 mg by mouth once daily.^Disp: ^Rfl: Apple Cider Vinegar 500 mg tab^Take by mouth.^Disp: ^Rfl: albuterol HFA (PROVENTIL HFA, VENTOLIN HFA) 90 mcg/actuation inhaler^Inhale 2 Puffs as instructed every 4 hours as needed for wheezing/shortness of breath.^Disp: 6.7 g^Rfl: 0 allopurinol (ZYLOPRIM) 100 mg tablet^Take 2 tablets by mouth once daily. For gout.^Disp: 180 tablet^Rfl: 1 Cholecalciferol, Vitamin D3, 25 mcg (1,000 unit) cap^Take 2 capsules by mouth once daily.^Disp: ^Rfl: atorvastatin (LIPITOR) 40 mg tablet^Take 1 tablet by mouth once daily.^Disp: 90 tablet^Rfl: 3 apixaban (ELIQUIS) 2.5 mg tab tab(s)^Take 1 tablet by mouth twice daily.^Disp: 180 tablet^Rfl: 3 Zinc 50 mg tab^Take 50 mg by mouth once daily.^Disp: ^Rfl: triamcinolone acetonide (NASACORT AQ) 55 mcg nasal inhaler^Use 2 Sprays in the nose once daily. [facility]^Disp: ^Rfl: cyanocobalamin (VITAMIN B-12) 1,000 mcg tab^Take 1 tablet by mouth once daily.^Disp: 30 tablet^Rfl: 0 Yqitp-2-GGN-EPA-Fish Oil 1,000 mg (120 mg-180 mg) cap^Take 2 g by mouth once daily.^Disp: ^Rfl: PSYLLIUM HUSK, BULK, MISC^Take 1 Packet by mouth once daily. ^Disp: ^Rfl: pyridoxine, vitamin B6, (VITAMIN B-6) 100 mg tablet^Take 1 tablet by mouth once daily.^Disp: 100 tablet^Rfl: 2 torsemide (DEMADEX) 10 mg tablet^Take 1 tablet by mouth once daily.^Disp: 30 tablet^Rfl: 1 potassium chloride SR (MICRO-K) 10 mEq CR capsule^Take 1 capsule by mouth twice daily.^Disp: 7 capsule^Rfl: 0 (Patient not taking: Reported on 07/10/2022) benzonatate (TESSALON PERLES) 100 mg capsule^Take 1 capsule by mouth three times daily as needed for cough.^Disp: 30 capsule^Rfl: 1 (Patient not taking: No sig reported) ubidecarenone/vitamin E mixed (COQ10 SG 100 ORAL)^Take by mouth.^Disp: ^Rfl: (Patient not taking: Reported on 07/10/2022) ALLERGIES: ALLERGIES Allergen Reactions Indocin [Indomethac* GI Upset Norvasc [Amlodipine* Other: See Comments Dizziness Wzktaxw-Gps-Iwh Red* Other: See Comments myalgia Lisinopril Cough REVIEW OF SYSTEMS: General: Negative for weight loss, night sweats, fever, and fatigue Head/Neck: Positive for chronic nasal congestion; Negative for photophobia, oral ulcers/sores, metallic or bitter taste, and epistaxis Cardiac: Positive for chest pain or pressure; Negative for syncope, palpitations, orthopnea, lightheadedness, dizziness, and PND Vascular: Positive for edema; Negative for raynauds, and claudication Pulmonary: Positive for dyspnea; Negative for hemoptosis, and cough GastroIntestinal: Positive for loss of appetite, and diarrhea; Negative for nausea, emesis, constipation, and abdominal pain Genito-Urinary: Positive for urinary frequency; Negative for urinary hesitancy, straining, pink or red urine, pain with urination, nocturia, groin pain, frothy urine, flank pain, and decreased urine Musculoskeletal: Negative for joint swelling, and joint pain Neurologic: Negative for weakness, tremor, parathesias, and numbness Skin: Negative for rash, photosensitivity, and malar rash Hematology: Negative for easy bruising, and easy bleeding Endocrinology: Negative for hypoglycemic events, and heat or cold intolerance Other: Negative for morning headache, excessive snoring, and daytime somnolence PHYSICAL EXAM: BP 145/81 Pulse 63 Ht 172.7 cm (5' 8 ) Wt 70.3 kg (155 lb) BMI 23.57 kg/m BP - standardized method Pulse 1 BP #1: 149/80 Pulse #1: 71 beats/min 2 BP #2 : 142/86 Pulse #2 : 76 beats/min 3 BP #3 : 145/75 Pulse #3 : 63 beats/min Average Average BP: 145/81 Average Pulse: 63 beats/min Orthostatic vitals Supine Sitting Standing Standing BP : 132/69 Standing pulse : 97 BP cuff location BP cuff location: Left upper arm BP cuff size BP cuff size: regular adult Comments for BP values First BP (right) First BP (left) Constitutional: No acute distress, Responsive, Normal habitus, and Thin Eyes: Conjunctiva clear and PERRL Ear, Nose, and Throat: Hearing normal, Lips normal, and Dentition normal Neck:Trachea midline No jugular venous distension No mass palpable Thyroid exam normal Cardiovascular:Edema present: Moderate edema bilateral LE Regular rate and ryhthm, normal S1 and S2, no murmurs, rubs, or gallops Respiratory: Normal respiratory effort. Lung sounds notable for diminished breath sounds bilateral bases Abdomen:Soft, non-tender, non-distended. Normal bowel sounds. No hepatosplenomegaly. Musculoskeletal: No clubbing or cyanosis of digits., Normocephalic., and No muscle weakness, joint tenderness, or joint effusions. Neurologic:CN II-XII intact , Normal sensation, and No asterixis Psychiatric: Alert and oriented x self, place, time, and setting Normal mood/affect DATA: Diagnostic tests reviewed for today's visit: pH, Urine Date Value Ref Range Status 06/14/2015 6.5 5.0 - 8.0 Final Specific Lenore, Ur Date Value Ref Range Status 06/14/2015 1.024 1.005 - 1.030 Final Glucose, Urine Date Value Ref Range Status 06/14/2015 NEGATIVE Negative mg/dL Final Bilirubin, Urine Date Value Ref Range Status 06/14/2015 NEGATIVE Negative Final Ketones, Urine Date Value Ref Range Status 06/14/2015 NEGATIVE Negative mg/dL Final Protein, Urine Date Value Ref Range Status 06/14/2015 NEGATIVE Negative mg/dL Final Nitrites Urine Date Value Ref Range Status 06/14/2015 NEGATIVE Negative Final WBC, Urine Date Value Ref Range Status 06/14/2015 0.1 0.0 - 5.0 /hpf Final Glucose (mg/dL) Date Value 07/06/2022 98 10/21/2021 97 Potassium (mmol/L) Date Value 07/06/2022 3.3 10/21/2021 3.6 Sodium (mmol/L) Date Value 07/06/2022 143 10/21/2021 142 Chloride (mmol/L) Date Value 07/06/2022 107 10/21/2021 107 CO2 (mmol/L) Date Value 07/06/2022 21 10/21/2021 23 Creatinine (mg/dL) Date Value 07/06/2022 1.57 10/21/2021 1.14 BUN (mg/dL) Date Value 07/06/2022 21 10/21/2021 17 Anion Gap (mmol/L) Date Value 07/06/2022 15 10/21/2021 12 Calcium (mg/dL) Date Value 10/21/2021 9.7 Calcium, Total (mg/dL) Date Value 07/06/2022 9.2 [facility] [address] [place] [address] Echo Complete 03/27/22 0808 MR#: [id number] Acct: [id number] Name: DARCY COVARRUBIAS Rep #:[id number] : 1935 86 From: Destin Harvey MD Attending Dr: Dr. Destin Harvey MD S tatus: REG CLI Ordering Dr: Destin Harvey MD Date: 01/13 Location: [facility] Sex: M C Admitted: Reason For Study: S/P CABG Procedure This was a 2D Doppler, Color Flow transthoracic echocardiogram. Exam performed in department. Left Ventricle Normal LV size. The estimated ejection fraction is 20%. There is severe global hypokinesis of the left ventricle. Right Ventricle Normal RV size. ICD or pacer leads identified within the right ventricle. Normal systolic function. Atria The left atrium is mildly enlarged. The right atrium is mildly enlarged. Mitral Valve Normal mitral valve. Mild-Moderate (1-2+) eccentric mitral valve insufficiency. Tricuspid Valve Normal tricuspid valve. Mild (1+) tricuspid valve insufficiency. Pulmonary artery systolic pressure is 44 mmHg. Aortic Valve Trisinus/trileaflet aortic valve. Great Vessels Normal aortic root. The pulmonary artery is normal size. Normal inferior vena cava. Pericardium/Pleural No pericardial effusion. MMode/2D Measurements & Calculations LVIDd: 5.1 cm IVSd: 0.95 cm LA dimension: 4.8 cm LVIDs: 4.9 cm LVPWd: 1.0 cm RVDd: 3.6 cm FS: 4.0 % _ LAV(MOD-bp): 82.2 ml LVAd ap4: 38.1 cm2 SV(MOD-sp4): 24.9 ml LAV(MOD-bp) Indexed: 44.5 ml/m2 LVLd ap4: 8.3 cm LAV(MOD-sp2): 78.5 ml EDV(MOD-sp4): 140.3 ml LAV(MOD-sp4): 79.3 ml EDV(sp4-el): 148.1 ml LVAs ap4: 34.3 cm2 LVLs ap4: 8.2 cm ESV(MOD-sp4): 115.4 ml ESV(sp4-el): 122.2 ml EF(MOD-sp4): 17.7 % EF(sp4-el): 17.5 % _ SV(sp4-el): 25.9 ml LA A4 area: 23.8 cm2 RA A4 area: 22.1 cm2 Doppler Measurements & Calculations MV E max darrius: 87.6 cm/sec Ao V2 max: 85.4 cm/sec AI max darrius: 343.0 cm/sec Ao max P.9 mmHg AI max P.0 mmHg AI dec slope: 242.6 cm/sec2 AI P1/2t: 414.0 msec _ LV V1 max: 60.1 cm/sec MR max darrius: 525.1 cm/sec PA V2 max: 55.9 cm/sec LV V1 max P.4 mmHg MR max P.3 mmHg MR mean darrius: 371.3 cm/sec MR mean P.1 mmHg MR VTI: 157.4 cm _ TR max darrius: 314.2 cm/sec TR max P.9 mmHg ECHO/Echo Complete Interpretation Summary Normal LV size. The estimated ejection fraction is 20 %. There is severe global hypokinesis of the left ventricle. Mild-Moderate (1-2+) eccentric mitral valve insufficiency. Pulmonary artery systolic pressure is 44 mmHg. Compared to the previous echocardiogram done at an outside facility from 2019 the left ventricular ejection fraction is markedly reduced. Ordering Physician: Destin Harvey Referring Physician: Arnold Spencer M.D. Performed By: Josh Herman RCS 03/27/22 1108 Date _ _ Destin Harvey MD CC: Dr. Destin Harvey MD; Dr. Arnold Spencer MD ~ Date Dictated: 03/27/22 0808 Date Transcribed: 03/27/22 110 Kidney and Bladder MR#: [id number] Acct: [id number] Name: DARCY COVARRUBIAS Rep #: [id number] : 1935 M 86 From: [facility] PCP: Dr. Arnold Spencer MD Status: AD M IN Study:Kidney and Bladder Date of Exam: 0 05/09/22 Exam# [id number] Ordering Dr: Yisel Pablo MD STUDY: RENAL ULTRASOUND - COMPLETE REASON FOR EXAM: Male, 86 years old. Acute kidney injury. TECHNIQUE: Ultrasound evaluation of the kidneys was performed with real-time and static tracey-scale imaging. COMPARISON: None. __ FINDINGS: RIGHT KIDNEY: Normal location of the right kidney, which is normal in size. The right kidney measures 9.4 cm. Increased renal cortical echogenicity. The renal cortex measures 12.0 cm. There is no right renal mass or cyst. There are no right renal calculi. There is mild hydronephrosis of the right kidney. DISTAL RIGHT URETER: There is non-visualization of the distal right ureter. There is no demonstrated right ureterovesical junction calculus. There is no demonstrated right ureteral jet. LEFT KIDNEY: Normal location of the left kidney, which is normal in size. The left kidney measures 10.9 cm. There is diffuse thinning of the renal cortex. The renal cortex measures 0 point cm. There is a 2.7 x 2.8 x 2.3 cm cyst off the lower pole. There are no left renal calculi. There is mild hydronephrosis of the left kidney. DISTAL LEFT URETER: There is non-visualization of the distal left ureter. There is no demonstrated left ureterovesical junction calculus. There is a visualized left ureteral jet. BLADDER: The distended urinary bladder has a volume of 336 ml. There is a normal wall thickness of the distended urinary bladder. There is no demonstrated mass within the urinary bladder. There are no demonstrated bladder calculi. Incidental finding is minimal free fluid does the right left upper quadrants. __ US/Kidney and Bladder IMPRESSION: 1. Cortical thinning with increased renal cortical echogenicity suggestive of medical renal disease. 2. Mild bilateral hydronephrosis. 3. Left renal cyst. 4. Normal urinary bladder. Electronically Signed: Jacob Templeton DO at 21:29 EDT Reading Location ID and State: [address] [place] [address] Tel [phone], Service support , ASSESSMENT: 86 year old male who presents with impaired kidney function. Encounter Diagnosis ICD-10-CM 1. Chronic combined systolic and diastolic congestive heart failure ([facility]) I50.42 NT PRO BNP torsemide (DEMADEX) 10 mg tablet RENAL FUNCTION PANEL DISCONTINUED: furosemide (LASIX) 20 mg tablet 2. MARCOS (acute kidney injury) ([facility]) N17.9 NT PRO BNP URINALYSIS, WITH MICROSCOPIC PROTEIN CREATININE RATIO ALBUMIN/CREAT RATIO RND UR MONOCLONAL PROTEIN, SERUM (BLOOD) US KIDNEY/BLADDER torsemide (DEMADEX) 10 mg tablet RENAL FUNCTION PANEL 3. Hydronephrosis, unspecified hydronephrosis type N13.30 US KIDNEY/BLADDER 4. Edema, unspecified type R60.9 5. Chronic combined systolic and diastolic CHF (congestive heart failure) ([facility]) I50.42 6. Diarrhea, unspecified type R19.7 PLAN: -At this time not clear if creatinine elevation represents resolution of MARCOS or rather reflects CKD -Patient with known baseline creatinine 1.2-1.3, last in 12/2021 -Potential etiology of creatinine elevation is cardiorenal in setting of CHF with EF 20% and evidence of fluid overload, obstructive uropathy with evidence of mild bilateral hydronephrosis with kidney US in 04/2022. Prerenal etiology in setting of diarrhea is currently less likely as no evidence of volume depletion on exam -We will obtain additional creatinine elevation work-up including renal function panel, UA, urine protein quantification, SPEP, and kidney US -Given evidence of fluid overload on exam, patient recommended to restart loop diuretic. Will prescribe torsemide 10 mg daily, dose to be titrated as needed and as tolerated. We will also obtain BMP. Patient advised to monitor his weight daily, and notify us for cardiology if weight and LE edema not improving despite diuretic started. 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 There may be unintended errors in spelling, grammar, syntax or punctuation present. Cat Chavira MD Staff, Department of Kidney Medicine Pager # [phone] 07/10/22 4:16 PM CC: REFERRING PROVIDER: [facility] PRIMARY CARE PHYSICIAN: Arnold Spencer MD documented in this encounter [facility] 06-23-2022 Instructions 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 APRN.CNS - 06/23/2022 2:53 PM EDT Check labs today Decrease or discontinue your dose of fiber for now to see if decreases number of bowel movements. Stay on lasix for one month documented in this encounter [facility] 06-23-2022 History of Present illness Narrative SUBJECTIVE: COVID-19 VACCINE(3 - Booster for Pfizer series) due on 08/04/2021 ADVANCE DIRECTIVE DISCUSSION Never done HPI Darcy Covarrubias is a 86 year old male. Presents for follow up visit. His past medical history significant for CAD status post CABG, hypertension, hyperlipidemia, paroxysmal atrial fibrillation bileaflet mitral valve prolapse bradycardia status post permanent pacemaker, anemia, chronic kidney disease, combined systolic and diastolic heart failure, ROBERTO, history of intracranial bleed secondary to fall. Presents with his who helps with history. HPI excerpted from previous visits: Since last here he has been seen by [facility]. His metoprolol was discontinued and he was started on carvedilol 25 mg twice daily by the banquet kitchen supervisor. Stress test and echocardiogram was ordered. He was admitted to [facility] emergency department with a complaint of generalized weakness for 2 days prior to admission. He reported nonproductive cough and headache. He had tested positive for COVID prior to arrival. He was admitted to the hospital managed for debility due to COVID-19 infection. During admission creatinine was elevated. He was treated for MARCOS. Nephrology was consulted. Consult notes reviewed. Indicated creatinine on admission was 1.98, 1 day later at 1.93. Following the creatinine at 2.07. Chest x-ray was completed and showed no acute cardiopulmonary abnormality. He remained on room air throughout admission. His hospital course was complicated by diarrhea. Follow-up COVID testing during admission was negative. Diarrhea improved with administration of loperamide and psyllium husk. Kidney function improved during his admission as well. He was discharged home once status was approaching baseline. Discharged May 13, 2022. He was discharged on sodium bicarb 650 mg twice daily. He was advised to follow-up with primary care and nephrology in 1 to 2 weeks. 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 Follow-up lab work: yesterday; not viewable in epic Will be seeing Sheri Air Quality Manager, not CC provider. Was taking sodium bicarb 650 mg twice daily:states completed this course of treatment. Follow-up appointment with nephrology: tomorrow Generalized weakness: improved, not quite back to baseline. Much less fatigue. Cough: some persists, worse at night. Robitussin at night Diarrhea: nearly resolved, prn use imodium, fiber. provides much of HPI.states not treated with antiviral. notes Covid19 as well, mild case. Presents today regarding leg swelling. Seen by PCP 06/05/2022. VV for leg swelling 06/15/2022. Note stopped HCTZ and taking lasix. Weight:decreased 8 lbs since 06/05/2022 visit. SOBOE:improved Leg swelling:improved CP:no Tolerating laisix. Has not seen nephrology post hospital. Notes no longer coughing. Stopped taking fiber and notes stools firming up, less frequent; now QD. Previously 2-3 /day. Without report of headache, chest pain, palpitations, dyspnea, peripheral edema, orthopnea, fatigue and PND. Last 14 Encounter BP Readings: Date: BP: 06/23/2022 110/60 06/05/2022 140/80 05/26/2022 134/74 03/10/2022 130/82 01/13/2022 138/80 01/06/2022 160/80 11/18/2021 167/85[average[ 11/12/2021 173/77[BP Javan average[ 11/10/2021 120/84 11/08/2021 162/82 11/04/2021 165/96 10/21/2021 189/85[BP Javan average[ 09/16/2021 160/88 08/26/2021 140/84 Creatinine Date Value Ref Range Status 01/09/2022 1.23 (H) 0.73 - 1.22 mg/dL Final 10/21/2021 1.14 0.73 - 1.22 mg/dL Final 08/15/2021 1.18 0.73 - 1.22 mg/dL Final 07/24/2021 1.41 (H) 0.73 - 1.22 mg/dL Final Hyperlipidemia. His most recent lipid panels are: Cholesterol, Total (mg/dL) Date Value 10/21/2021 121 04/16/2020 143 Total Cholesterol, Nonfasting (mg/dL) Date Value 10/21/2021 120 05/05/2021 108 HDL Cholesterol (mg/dL) Date Value 10/21/2021 31 04/16/2020 38 HDL Cholesterol, Nonfasting (mg/dL) Date Value 10/21/2021 31 05/05/2021 30 LDL Cholesterol (mg/dL) Date Value 10/21/2021 72 04/16/2020 91 LDL Cholesterol, Nonfasting (mg/dL) Date Value 10/21/2021 70 05/05/2021 63 Triglyceride (mg/dL) Date Value 10/21/2021 89 04/16/2020 72 Triglycerides, Nonfasting (mg/dL) Date Value 10/21/2021 94 05/05/2021 74 Review of Systems Constitutional: Negative for fatigue. Respiratory: Negative. Cardiovascular: Negative. Musculoskeletal: Negative for back pain and gait problem. Objective BP 110/60 Pulse 80 Resp 16 Wt 68.5 kg (151 lb) BMI 22.96 kg/m Physical Exam Vitals and nursing note reviewed. Constitutional: Appearance: Normal appearance. HENT: Head: Normocephalic and atraumatic. Eyes: Conjunctiva/sclera: Conjunctivae normal. Cardiovascular: Rate and Rhythm: Normal rate and regular rhythm. Heart sounds: Murmur heard. +JVD, bilateral LE edema 2+ ankle/mid calf Pulmonary: Effort: Pulmonary effort is normal. Breath sounds: Normal breath sounds. Abdominal: General: Bowel sounds are normal. Palpations: Abdomen is soft. Skin: General: Skin is warm and dry. Neurological: General: No focal deficit present. Mental Status: He is alert and oriented to person, place, and time. ALLERGIES Allergen Reactions Indocin [Indomethac* GI Upset Norvasc [Amlodipine* Other: See Comments Dizziness Gnpijpq-Pmp-Rzo Red* Other: See Comments myalgia Lisinopril Cough MEDICATIONS lansoprazole (PREVACID) 30 mg capsule^Take 1 capsule by mouth twice daily. 1/2 hr before meal.^Disp: 180 capsule^Rfl: 3 sacubitril-valsartan (ENTRESTO) 49-51 mg tablet^Take 1 tablet by mouth twice daily.^Disp: ^Rfl: carvedilol (COREG) 25 mg tablet^Take 12.5 mg by mouth twice daily with meals. ^Disp: ^Rfl: spironolactone (ALDACTONE) 25 mg tablet^Take 1 tablet by mouth once daily.^Disp: ^Rfl: ascorbic acid, vitamin C, (VITAMIN C) 500 mg tablet^Take 500 mg by mouth once daily.^Disp: ^Rfl: Apple Cider Vinegar 500 mg tab^Take by mouth.^Disp: ^Rfl: ubidecarenone/vitamin E mixed (COQ10 SG 100 ORAL)^Take by mouth.^Disp: ^Rfl: allopurinol (ZYLOPRIM) 100 mg tablet^Take 2 tablets by mouth once daily. For gout.^Disp: 180 tablet^Rfl: 1 Cholecalciferol, Vitamin D3, 25 mcg (1,000 unit) cap^Take 2 capsules by mouth once daily.^Disp: ^Rfl: atorvastatin (LIPITOR) 40 mg tablet^Take 1 tablet by mouth once daily.^Disp: 90 tablet^Rfl: 3 apixaban (ELIQUIS) 2.5 mg tab tab(s)^Take 1 tablet by mouth twice daily.^Disp: 180 tablet^Rfl: 3 Zinc 50 mg tab^Take 50 mg by mouth once daily.^Disp: ^Rfl: triamcinolone acetonide (NASACORT AQ) 55 mcg nasal inhaler^Use 2 Sprays in the nose once daily. [facility]^Disp: ^Rfl: cyanocobalamin (VITAMIN B-12) 1,000 mcg tab^Take 1 tablet by mouth once daily.^Disp: 30 tablet^Rfl: 0 pyridoxine, vitamin B6, (VITAMIN B-6) 100 mg tablet^Take 1 tablet by mouth once daily.^Disp: 100 tablet^Rfl: 2 furosemide (LASIX) 20 mg tablet^Take 1 tablet by mouth once daily.^Disp: 30 tablet^Rfl: 0 hydroCHLOROthiazide (HYDRODIURIL, ESIDRIX) 25 mg tablet^Take 1 tablet by mouth once daily for 7 days.^Disp: 7 tablet^Rfl: 0 benzonatate (TESSALON PERLES) 100 mg capsule^Take 1 capsule by mouth three times daily as needed for cough.^Disp: 30 capsule^Rfl: 1 (Patient not taking: Reported on 06/23/2022) albuterol HFA (PROVENTIL HFA, VENTOLIN HFA) 90 mcg/actuation inhaler^Inhale 2 Puffs as instructed every 4 hours as needed for wheezing/shortness of breath.^Disp: 6.7 g^Rfl: 0 Eoytv-4-CEC-EPA-Fish Oil (FISH OIL) 1,000 mg (120 mg-180 mg) cap^Take 2 g by mouth once daily.^Disp: ^Rfl: PSYLLIUM HUSK, BULK, MISC^Take 1 Packet by mouth once daily. 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, mild MVP Other symptoms involving digestive system(787.99) Statin intolerance Social History Tobacco Use Smoking status: Never Smokeless tobacco: Never Vaping Use Vaping Use: Never used Substance Use Topics Alcohol use: No Drug use: No Component Latest Ref Rng & Units 07/24/2021 08/15/2021 10/21/2021 01/09/2022 WBC 3.70 - 11.00 k/uL 6.16 5.17 5.96 5.86 RBC 4.20 - 6.00 m/uL 3.10 (L) 3.18 (L) 3.63 (L) 3.42 (L) Hemoglobin 13.0 - 17.0 g/dL 10.5 (L) 11.2 (L) 11.9 (L) 11.0 (L) Hematocrit 39.0 - 51.0 % 32.3 (L) 33.2 (L) 36.5 (L) 34.0 (L) MCV 80.0 - 100.0 fL 104.2 (H) 104.4 (H) 100.6 (H) 99.4 MCH 26.0 - 34.0 pg 33.9 35.2 (H) 32.8 32.2 MCHC 30.5 - 36.0 g/dL 32.5 33.7 32.6 32.4 RDW-CV 11.5 - 15.0 % 13.9 14.5 13.4 15.9 (H) Platelet Count 150 - 400 k/uL 176 215 210 243 MPV 9.0 - 12.7 fL 9.9 9.7 9.9 9.9 Neut% % 67.3 66.3 67.2 Abs Neut (ANC) 1.45 - 7.50 k/uL 4.15 3.41 3.94 Lymph% % 20.3 18.2 16.4 Abs Lymph 1.00 - 4.00 k/uL 1.25 0.94 (L) 0.96 (L) [place]% % 9.1 10.6 11.6 Abs [place] <0.87 k/uL 0.56 0.55 0.68 Eosin% % 2.8 4.1 3.6 Abs Eosin <0.46 k/uL 0.17 0.21 0.21 Baso% % 0.5 0.8 0.9 Abs Baso <0.11 k/uL 0.03 0.04 0.05 Immature Gran % % 0.3 IMMATURE GRANS (ABS) <0.10 k/uL <0.03 NRBC /100 WBC 0.0 Absolute nRBC <0.01 k/uL <0.01 <0.01 <0.01 <0.01 DTYPE Auto Nucleated Reds 0 /100 WBC 0.0 0.0 Diff Type Auto Diff Auto Diff Protein, Total 6.3 - 8.0 g/dL 6.9 7.1 7.6 Albumin 3.9 - 4.9 g/dL 4.1 4.5 4.2 Calcium 8.5 - 10.2 mg/dL 9.5 9.6 9.7 9.4 Bilirubin, Total 0.2 - 1.3 mg/dL 0.5 0.9 1.1 Alkaline Phosphatase 38 - 113 U/L 88 101 93 AST 14 - 40 U/L 38 31 41 (H) Glucose 74 - 99 mg/dL 102 (H) 116 (H) 97 89 BUN 9 - 24 mg/dL 21 15 17 22 Creatinine 0.73 - 1.22 mg/dL 1.41 (H) 1.18 1.14 1.23 (H) Sodium 136 - 144 mmol/L 141 143 142 142 Potassium 3.7 - 5.1 mmol/L 4.3 3.4 (L) 3.6 (L) 3.8 Chloride 97 - 105 mmol/L 107 (H) 107 (H) 107 (H) 104 CO2 22 - 30 mmol/L 20 (L) 25 23 22 Anion Gap 9 - 18 mmol/L 14 11 12 16 ALT 10 - 54 U/L 37 25 34 eGFR- 58 >60 >60 eGFR-All Other Races . 48 59 >60 eGFR >=60 mL/min/1.73m 58 (L) Cholesterol, Total <200 mg/dL 121 Triglyceride <150 mg/dL 89 HDL Cholesterol >39 mg/dL 31 (L) LDL Cholesterol <100 mg/dL 72 Non HDL Cholesterol <130 mg/dL 90 Fasting Time hrs 8 VLDL Cholesterol <30 mg/dL 18 TC:HDL Ratio <5.10 3.90 LDL:HDL Ratio <2.54 2.32 Total Cholesterol, Nonfasting <200 mg/dL 120 Triglycerides, Nonfasting <150 mg/dL 94 HDL Cholesterol, Nonfasting >39 mg/dL 31 (L) LDL Cholesterol, Nonfasting <100 mg/dL 70 Non HDL Cholesterol, Nonfasting <130 mg/dL 89 VLDL Cholesterol, Nonfasting <30 mg/dL 19 Total Chol/HDL Ratio, Nonfasting <5.10 mg/dL 3.87 LDL/HDL Ratio, Nonfasting <2.54 mg/dL 2.26 Iron 41 - 186 ug/dL 95 TIBC 232 - 386 ug/dL 293 Transferrin Saturation 15 - 57 % 32 Hemoglobin A1C 4.3 - 5.6 % 5.1 5.6 Estimated Average Glucose mg/dL 100 114 Retic % 0.4 - 2.0 % 1.3 Abs Retic 0.0180 - 0.1000 M/uL 0.047 Uric Acid 4.0 - 8.1 mg/dL 4.4 4.8 Ferritin 30.3 - 565.7 ng/mL 154.0 Magnesium 1.7 - 2.3 mg/dL 1.2 (L) 1.2 (L) Vitamin D 25 Hydroxy 31.0 - 80.0 ng/mL 24.2 (L) 33.7 CRP <0.9 mg/dL <0.3 Erythropoietin 2.6 - 18.5 mIU/mL 16.6 NT Pro BNP <450 pg/mL 11,856 (H) ASSESSMENT/PLAN: 1. Congestive heart failure, unspecified HF chronicity, unspecified heart failure type (HCC) - ICD9: 428.0, ICD10: I50.9 2. S/P CABG (coronary artery bypass graft) - ICD9: V45.81, ICD10: Z95.1 Notes continues to symptomatically improve. 3. Essential hypertension - ICD9: 401.9, ICD10: I10 controlled 4. Leg swelling - ICD9: 729.81, ICD10: M79.89 (primary diagnosis) - BASIC METABOLIC PNL 5.MARCOS (acute kidney injury) (HCC) - ICD9: 584.9, ICD10: N17.9 - BASIC METABOLIC PNL Advised: Check labs today Decrease or discontinue your dose of fiber for now to see if decreases number of bowel movements. Stay on lasix for one month 1 mo recheck Medical Decision Making: Problems: Moderate: 1+ chronic illnesses with change and 2+ stable chronic illnesses Data: Unique test(s) ordered: 1 Risk: Moderate: Drug management Medical Decision Making Level: 4 - Moderate\ documented in this encounter [facility] 06-18-2022 Miscellaneous Notes Patient's notified of results and provider's instructions. Patient's verbalizes understanding. Sheba Kaur LPN Below noted Follow up if diarrhea not resolving with stopping the HCTZ. Sounds like has had prior to HCTZ and since COVID. Pts called and is notified of providers message and instructions. She voices understanding. She was told to stop the HCTZ and replace it with the Lasix. She reports they have been dealing with the diarrhea for 2 months. They have tried Imodium. started Psyllium Husk and Probiotic once Pt was released from the hospital after Covid. Araceli Hassan RN HCTZ was given by virtualist for edema. Reviewed prior RXs--he was given Lasix (furosemide before). The following approved medication requests have been transmitted electronically. Requested Prescriptions Signed Prescriptions Disp Refills furosemide (LASIX) 20 mg tablet 7 tablet 0 Sig: Take 1 tablet by mouth once daily for 7 days. Authorizing Provider: ARNOLD SPENCER MD If diarrhea not improving, can try Imodium reports patient started taking hctz yesterday, and last night during the night had a diarrhea blow out. is sure this was caused by the hctz. Reports he did not eat anything that would have caused this. Reports he was placed on hctz for 7 days for increase weight of 10 lbs and swollen feet. Reports they have been dealing with diarrhea since 05-07-22 when patient had covid. It comes and goes. Lately it was under control. Reports patient does have hx of colitis. Asking if there is something else pcp could prescribe in place of the hctz? Please advise . documented in this encounter [facility] 06-15-2022 History of Present illness Narrative done PRIMARY CARE COORDINATION QUICK NOTE Provider Action/FYI Routed updates to Dr. Spencer Patient identified by name and date . Jacquelyn Conley RN June 15, 2022 2:45 PM INSIGHT CDM TELEPHONIC OUTREACH Provider Action/FYI:Paged and Routed to Virtual Provider Carine Faria MD Spk with Deirdre and Pt, Pt is more Sob, has persistent cough and has gained 10 lbs of water weight, baseline wt is 150 lbs, Pt is currently weighing 160 lbs, and has bilateral foot edema. Sob with conversation Pt and are in agreement to speak to a Virtual provider Contact made with patient: Yes Patient identified by name and . Discussed care with patient and spouse It s nice talking to you again. As a reminder, this is our bi-weekly check-in where I will be asking you questions about your health. This will only take a few minutes of your time. Is this a good time? Yes Symptoms What Chronic Disease(s) does the patient have: CHF and CKD Do you check your blood pressures at home? Yes, Enter readings: Not available Do you have new or worse shortness of breath with activity? Yes Do you have new or worsening trouble breathing while lying flat? No Do you have new or worsening swelling of legs, feet or ankles? Yes Do you feel like you are dehydrated for any reason, including not being able to eat or drink normally, or having less urine/much darker urine than normal for you? No Do you check your daily weight at home? Yes, Have you noticed a sudden gain in weight greater than three pounds in a day or three pounds in a week? Yes Are you having any other symptoms that your PCP needs to know about? Yes Symptom Escalation The patient required an escalation for symptom(s)? Yes, Virtualist - Inform patient that you will be contacting a provider who will be contacting them - Urgent / SAME DAY visit: Page Virtualist at and indicate 'CDM patient', MRN, Patient Name, Patient Concern, and patient's preferred method of contact (telephone, Klood, LightSquared), your name, your contact number. Informed patient that you recommend further assessment from a provider to review symptoms. I have sent a page for the provider to contact you today. If you haven't heard from that provider and still have concerns, please contact you PCP's office right away. Indicated CDM patient and symptoms in the FYI box and sent alpha page to Virtualist to to contact the patient. END OUTREACH Jacquelyn Conley RN June 15, 2022 1:36 PM documented in this encounter [facility] 06-15-2022 History of Present illness Narrative Virtualist Distance Health Note (Community monitoring/CC HC/H@[facility] escalations) Adult seen for Monitoring Track: Chronic Disease Management Contacted by phone, Klood, LightSquared, Ardiom, Doximity, other: phone History of present illness: 86 yo man reports that he is having trouble breathing which is relieved by pulling on one nostril x weeks. Supposed to see ENT in 2 days. Also persistent cough x months. Covid 05/07/22 and hospitalized 7 days. Using inhalers twice a day. Legs swollen x > 2 weeks. 122/74, 121/80 today. Past medical history, past surgical history, family history and social history reviewed CABG, gastric ulcer, CKD, HTN, HLD weight 159 on 06/05, usual weight is 150. REVIEW OF SYSTEMS: Review of Systems VITAL SIGNS: (if available) There were no vitals taken for this visit. Physical Exam (if video visit was performed) Physical Exam awake and alert in NAD, pleasant Assessment/Plan: persistent cough peripheral edema Disposition: Patient remains at home; meds adjusted and / or prescribed HCTZ x 7 days Follow up with PCP <1 week A total of 15 minutes was spent providing medical care using telemedicine. Remove COVID19 association Signed in as Primary Virtualist, Secondary Virtualist, or [facility] Telehealth provider: Primary SIGNATURE: Carine Faria MD PATIENT NAME: Darcy Covarrubias DATE: June 15, 20[address] encounter [facility] 06-05-2022 History of Present illness Narrative This note was created using [employer]. Subjective Darcy Covarrubias is a 86 year old male. Patient presents with: F/U 6 months SUBJECTIVE: Darcy Covarrubias is a 86 year old year old gentleman here today for 6 month follow up appointment for review of medical conditions. Cough and chest hurting just started getting a bit better today. Talking triggers Can affect sleep. Can hurt to take a deep breath. Tessalon perles no help. Did not help even adding. Delsym does help. Does not last 12 hours though. Albuterol--might have helped a little. Does have some post nasal drip. No wheezing heard and no tightness in chest. Has had some reflux. Dr. Rodriguez had treated him before. Prevacid 30 mg. Has had cough for weeks. Started last year too. Cough started before COVID infection. December CXR was fine. Feet and ankles swelling. Off and on. Worse lately. Does wear compression stockings. Sometimes swelling goes down. Noted that is on ARB. Reviewed COVID infection and hospitalization. Had watery diarrhea after that. Gets better off and on. Can be just once daily BM. Taking Metamucil. Has had collagenous colitis. No apparent severe flare up. 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 sacubitril-valsartan (ENTRESTO) 49-51 mg tablet Take 1 tablet by mouth twice daily. carvedilol (COREG) 25 mg tablet Take 12.5 mg by mouth twice daily with meals. spironolactone (ALDACTONE) 25 mg tablet Take 1 tablet by mouth once daily. ascorbic acid, vitamin C, (VITAMIN C) 500 mg tablet Take 500 mg by mouth once daily. Apple Cider Vinegar 500 mg tab Take by mouth. ubidecarenone/vitamin E mixed (COQ10 SG 100 ORAL) Take by mouth. albuterol HFA (PROVENTIL HFA, VENTOLIN HFA) 90 mcg/actuation inhaler Inhale 2 Puffs as instructed every 4 hours as needed for wheezing/shortness of breath. allopurinol (ZYLOPRIM) 100 mg tablet Take 2 tablets by mouth once daily. For gout. Cholecalciferol, Vitamin D3, 25 mcg (1,000 unit) cap Take 2 capsules by mouth once daily. atorvastatin (LIPITOR) 40 mg tablet Take 1 tablet by mouth once daily. apixaban (ELIQUIS) 2.5 mg tab tab(s) Take 1 tablet by mouth twice daily. Zinc 50 mg tab Take 50 mg by mouth once daily. triamcinolone acetonide (NASACORT) 55 mcg nasal inhaler Use 2 Sprays in the nose once daily. [facility] cyanocobalamin (VITAMIN B-12) 1,000 mcg tab Take 1 tablet by mouth once daily. Yanej-7-TCR-EPA-Fish Oil (FISH OIL) 1,000 mg (120 mg-180 mg) cap Take 2 g by mouth once daily. PSYLLIUM HUSK, BULK, MISC Take 1 Packet by mouth once daily. pyridoxine, vitamin B6, (VITAMIN B-6) 100 mg tablet Take 1 tablet by mouth once daily. Current Facility-Administered Medications Medication Dose Route Frequency perflutren lipid microspheres 1.3 mL in NaCl (PF) 0.9% 10 mL injection (DEFINITY) INTRAVENOUS DIRECTED PRN sodium chloride 0.9 % (flush) 10 mL (BD POSIFLUSH) 10 mL INTRAVENOUS DIRECTED PRN Review of Systems Objective BP 140/80 Pulse 74 Wt 72.1 kg (159 lb) SpO2 98% BMI 24.18 kg/m Last 5 Encounter Wt Readings: Date: Wt: 06/05/2022 72.1 kg (159 lb) 05/26/2022 70.8 kg (156 lb) 03/10/2022 68.9 kg (152 lb) 01/13/2022 65.3 kg (144 lb) 01/06/2022 68.9 kg (152 lb) No waist measurement recorded Estimated body mass index is 24.18 kg/m as calculated from the following: Height as of 11/10/21: 172.7 cm (5' 8 ). Weight as of this encounter: 72.1 kg (159 lb). Last 5 Encounter BP Readings: Date: BP: 06/05/2022 140/80 05/26/2022 134/74 03/10/2022 130/82 01/13/2022 138/80 01/06/2022 160/80 Physical Exam Vitals reviewed. Constitutional: Appearance: Normal appearance. Eyes: Conjunctiva/sclera: Conjunctivae normal. Cardiovascular: Rate and Rhythm: Normal rate and regular rhythm. Heart sounds: Normal heart sounds. Pulmonary: Effort: Pulmonary effort is normal. Breath sounds: Normal breath sounds. Musculoskeletal: Right lower le+ Pitting Edema present. Left lower le+ Pitting Edema present. Skin: General: Skin is warm and dry. Neurological: General: No focal deficit present. Mental Status: He is alert and oriented to person, place, and time. Psychiatric: Mood and Affect: Mood normal. Behavior: Behavior normal. Thought Content: Thought content normal. Judgment: Judgment normal. Assessment and Plan Encounter Diagnosis ICD-10-CM 1. Chronic cough R05.3 2. LPRD (laryngopharyngeal reflux disease) K21.9 3. Leg swelling M79.89 4. Collagenous colitis K52.831 5. Personal history of COVID-19 Z86.16 6. Essential hypertension I10 7. 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 Harvey managing Above issues addressed with patient. Cough can be from LPRD as discussed--treatment through ENT. Discussed that might need higher dose of PPI or change PPI if LPRD not improved and cough not improved with current dose. Pulmonology re-evaluation as needed. Also, follow up with banquet kitchen supervisor if ongoing issues with leg swelling, or worsening SOB and DE LEON. BP control is good. Further evaluation and treatment as indicated. Patient involved in shared decision making for management of medical issues. History and medications reviewed. Epic updated as needed Refills and/or prescriptions taken care of and meds adjusted as indicated after reviewed history, exam and labs. Health Maintenance reviewed. Updated record and/or ordered tests as recorded. Encouraged on efforts at healthy diet and regular exercise and adequate sleep. Arnold Spencer MD documented in this encounter [facility] 05-29-2022 History of Present illness Narrative INSIGHT CDM TELEPHONIC OUTREACH Provider Action/FYI: Call to Pt left a message to verify CHF/ CKD or other symptoms or needs. Contact made with patient: No - Left message Hello my name is Jacquelyn Conley RN your Lockstitch Shoulder Joiner from the [facility] I am calling today for your bi-weekly check in. I am sorry I missed your call. I will reach out to you again tomorrow. (if the third call I will reach out to you again next week) Enter next patient outreach date for the following using the Track Pt Outreach. End outreach. Jacquelyn Conley RN May 29, 2022 1:21 PM documented in this encounter [facility] 05-26-2022 History of Present illness Narrative Transitional Care Management Progress Note The patients TCM visit was performed within the 14 days of discharge. Patient's Date of discharge: May 13 Date of initial coordinator contact after discharge: May 15 Discharge diagnosis: Acute COVID 19, acute kidney injury Medication review completed yes 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 APRN.CHEMICAL EDUCATOR Provider Documentation: In follow-up of hospitalization, Darcy Covarrubias is a 86 year old male with the chief complaint of COVID-19 virus infection and MARCOS. I have reviewed the patient s last hospital course including diagnostic testing performed during this hospitalization, their discharge medications, and my assessment and plan with the patient and any family members present at today s visit. HPI: He was admitted to [facility] emergency department with a complaint of generalized weakness for 2 days prior to admission. He reported nonproductive cough and headache. He had tested positive for COVID prior to arrival. He was admitted to the hospital managed for debility due to COVID-19 infection. During admission creatinine was elevated. He was treated for MARCOS. Nephrology was consulted. Consult notes reviewed. Indicated creatinine on admission was 1.98, 1 day later at 1.93. Following the creatinine at 2.07. Chest x-ray was completed and showed no acute cardiopulmonary abnormality. He remained on room air throughout admission. His hospital course was complicated by diarrhea. Follow-up COVID testing during admission was negative. Diarrhea improved with administration of loperamide and psyllium husk. Kidney function improved during his admission as well. He was discharged home once status was approaching baseline. Discharged May 13, 2022. He was discharged on sodium bicarb 650 mg twice daily. He was advised to follow-up with primary care and nephrology in 1 to 2 weeks. 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 Follow-up lab work: yesterday; not viewable in epic Will be seeing Sheri Air Quality Manager, not CC provider. Was taking sodium bicarb 650 mg twice daily:states completed this course of treatment. Follow-up appointment with nephrology: tomorrow Generalized weakness: improved, not quite back to baseline. Much less fatigue. Cough: some persists, worse at night. Robitussin at night Diarrhea: nearly resolved, prn use imodium, fiber. provides much of HPI.states not treated with antiviral. notes Covid19 as well, mild case. PAST MEDICAL HISTORY: Reviewed and updated ALLERGIES: Reviewed and updated MEDICATIONS: Reviewed and updated SOCIAL HISTORY: Reviewed and updated FAMILY HISTORY: Reviewed and updated REVIEW OF SYSTEMS: GENERAL: SEE HPI HEENT: Negative for frequent or significant headaches, No changes in hearing or vision, no nose bleeds or other nasal problems RESPIRATORY: Cough; dry The remainder of the review of systems is negative. All other systems reviewed and negative, other than HPI. PHYSICAL EXAMINATION There were no vitals taken for this visit. General appearance: well appearing, alert, in no acute distress and well-hydrated, well nourished, motor and sensory appear to be normal Lungs: Lungs clear to auscultation. No wheezing, rhonchi, rales. clear to auscultation no wheezing or rhonchi Heart: Irregular RR without gallop, or rubs. Abdomen: Abdomen soft, non-tender. Bowel sounds normal. No masses, organomegaly Extremities: Edema: mild bilateral ankle swelling 1. I have reviewed the patient record including associated test results during the last hospitalization Yes 2. I have reviewed Lab test Yes 3. I have reviewed Radiology test Yes 4. I reviewed assessment/plan with the patient/family member Yes ASSESSMENT/PLAN: 1. COVID-19 - ICD9: 079.89, ICD10: U07.1 (primary diagnosis) Symptoms are resolving, cough persists. Notes strength is returning, declines PT for now. Notes slowly progressing activity. Notes nighttime cough, endorses benzonatate at bedtime in addition to current cough remedies to see if this helps 2. MARCOS (acute kidney injury) (HCC) - ICD9: 584.9, ICD10: N17.9 - BASIC METABOLIC PNL 3. Hypokalemia - ICD9: 276.8, ICD10: E87.6 Labs ordered through timber skidder today will be having a phone visit with tomorrow for follow-up. [place] [facility] 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 APRN.CNS May 26, 2022 8:30 AM documented in this encounter [facility] 05-15-2022 History of Present illness Narrative noted TRANSITION CARE MANAGEMENT (TCM) INITIAL CONTACT Assistant Distribution Manager Outreach Provider Action/FYI: TCM Initial contact with patient post discharge, spoke to spouse. Patient identified by name and . TRANSITION CARE MANAGEMENT INITIAL OUTREACH DOCUMENTATION: Date of Outreach: 05/15/2022 Outreach Attempt 1: Contact Made Date of Discharge 05/13/2022 Some recent data might be hidden SUMMARY: -Pt discharged from [facility] on 05/13/22. -Admitted for: acute kidney injury, acute COVID Do you have a hospital follow up appointment with your PCP? Appointment on 05/26/22 with 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 MEAT PICKLER. Yes. Remind patient of appointment date, time, and location. If not within 14 calendar days of discharge - please reschedule accordingly. MEDICATIONS: Many patients have questions or concerns about their medications once they are home. Were you prescribed any new medications? If yes, what are those medications? Sodium bicarbonate 650 mg one three times daily Were you told to hold any medications? No Were any of your medications discontinued? No Do you have any questions about getting or taking your medications? No Your discharge instructions/After visit Summary (AVS) are important in guiding you through the recovery process. Is there anything I might help you understand? No Do you have all the necessary equipment and supplies at home? Yes, spouse has pulse ox. She will keep and eye on this number Medical records from recent hospitalization: Placed for provider to review. Dr. Koch's office is to call pt back to arrange follow up with nephrology documented in this encounter [facility] 05-15-2022 Miscellaneous Notes Info relayed to pts spouse. Would recommend that patient be seen in the office as scheduled since if he is still really weak by then, may need labs done plus evaluated to see if needs anything to treat persistent hypoxia. Would check pulse ox with activity--if drops below 88%, should have home oxygen. If and patient still decide they want to wait longer, just make sure doing okay from standpoint of pulse ox., other vitals and getting adequate nutrition and fluids in daily. If pulse ox were to stay below 88%, and/or is getting more SOB and/or weaker, recommend ER evaluation. If drops frequently below 88%, consider being seen sooner than 05/25 to check oxygen levels and order home oxygen if indicated. Pts called in and reports Pt was just discharged from the hospital on 05/13/22 for Covid. Pt was scheduled with 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 05/26/22 at 1000 am. She wanted to wait longer for Pt to become stronger. She states when he came home he was very weak. was asked if she needed PT/OT HH, and she said no she is watching him like a hawk and he is using his walker. Last night she said she took his pulse ox and it was 86% before he went to bed. I had her go check it before getting off the phone pulse ox was 94% and HR 85. Please give parameters for O2 level and when to bring back to the hospital. documented in this encounter [facility] 05-12-2022 History of Present illness Narrative INSIGHT CD TELEPHONIC OUTREACH Provider Action/FYI: Updates routed to Dr. Spencer [facility] 05/07/22 Diarrhea, MARCOS ( C-Diff) treated with ATB and IVF 05/12/22 Spk with Pt's she noted Joseph has tested positive for Covid, he had some confusion which has been improved, has continued explosive Diarrhea, continued Antibiotics and IVF. noted he has a history of Colitis has tested positive for Covid, she noted symptoms are mild, she has a cough, chills, mild intermittent diarrhea which improved, she is hydrating well. Contact made with patient: Yes Patient identified by name and . Discussed care with spouse It s nice talking to you again. As a reminder, this is our bi-weekly check-in where I will be asking you questions about your health. This will only take a few minutes of your time. Is this a good time? Yes Symptoms What Chronic Disease(s) does the patient have: CHF and CKD Do you check your blood pressures at home? Yes, Enter readings: Not available Do you have new or worse shortness of breath with activity? No Do you feel like you are dehydrated for any reason, including not being able to eat or drink normally, or having less urine/much darker urine than normal for you? No Do you check your daily weight at home? Yes, Have you noticed a sudden gain in weight greater than three pounds in a day or three pounds in a week? No and Do you have new or worsening cough? No Do you have new or worsening wheezing? No Do you need to use your rescue (Albuterol) inhaler or nebulizer more often than normal? No Are you having any other symptoms that your PCP needs to know about? Yes Symptom Escalation The patient required an escalation for symptom(s)? No Medications Do you have any questions about taking your medication or which medications you should be on? No Do you need any medication refills at this time, including any of the medications you might take only when needed? No Social We would like to make sure you have what you need so that your basic needs are met- including your personal safety, food, housing and medications? Would you like to speak with a social work front desk team member to help give you support for any of these needs? No It can be normal to feel anxious or down during a time like this. Would you like to talk to a mental health professional about how you have been feeling? No Closing Thank you for taking the time to talk with me today. We want to work with you to ensure that we are keeping your medical condition(s) well-controlled and to keep you healthy and out of the doctor's office or hospital. It s also not too late for me to sign you up for automated weekly questionnaires through [employer]. This is an easy way for us to stay connected each week. Are you interested? No, I understand. We can always sign you up in the future if you change your mind. Just as a reminder, will continue to call you every other week to check in on your health. Our calls should take 10-15 minutes or less. Remember, if you have concerns in between our calls, please call your PCP's office right away. Thank you. Enter next patient outreach date for two weeks on the same day of the week as today in the Track Pt Outreach and End outreach. Jacquelyn Conley RN May 12, 2022 8:14 AM documented in this encounter [facility] 05-08-2022 Miscellaneous Notes noted Patient's calls and states that she took patient into ER last night. Patient currently is in the hospital with Covid. not sure if he is coming home today or not. Patient was dehydrated. Mary Hogan RN No answer. Left message for patient to call office and ask to speak to a nurse regarding concerns. If eating and drinking normally and getting enough sleep would recommend a visit either with his banquet kitchen supervisor or us for recheck. Pts called in and reports had a bad headache yesterday. This morning he didn't want to get up. She woke him up around 9 or 10 am. She made him breakfast, which he didn't eat much of as he said he wasn't hungry. She states he could hardly walk she had to get the walker out for him, and she had to help him tie his shoes and get dressed. States after breakfast he fel;l right back asleep, and just now she got him back up. She had him ky his BP, and said he was falling asleep putting the cuff on. BP was 131/79, then 117/68. She reports this has been building for a while now. PCP and Dye Tub Tender have been trying to change medications around to see if that would help. Dye Tub Tender took him off of Metoprolol and Losartan (04/01), and put him on Entresto 49-51 twice a day. Med list has been updated. is worried about and called pharmacy and they said they didn't see anything on his med list that should be causing him to be so tired, and told her to call PCP. Please call and advise. documented in this encounter [facility] 05-07-2022 Miscellaneous Notes His carotid ultrasound looks good. No significant change. If he is doing well, would recommend repeating ultrasound in 6 months Patient called and informed Encounter closed Joseph had testing done today and would like to be called on his home phone, with results. documented in this encounter [facility] 04-10-2022 History of Present illness Narrative [facility] TELEPHONIC OUTREACH Provider Action/FYI: Routed to Dr. Spencer- Medication updates Deirdre reported on 03/30/22 Dr. [facility] started Pt on Entresto 24/26 mg one Po Twice daily for 30 days, on 04/29/22 dosage will change to Entresto 49/51 mg one po twice daily, on 04/01/22 Coreg was changed to 12.5 mg Po twice daily. Spk with Pt noted mild intermittent Sob with exertion, denies cough, or wheezing, denies edema Wt 150 lbs, BP 125/81 He reports 04/07/22 Left Cataract surgery completed, Right cataract surgery will be completed on 04/30/22 Pt denies needs or concern Contact made with patient: Yes Patient identified by name and . Discussed care with patient and spouse It s nice talking to you again. As a reminder, this is our bi-weekly check-in where I will be asking you questions about your health. This will only take a few minutes of your time. Is this a good time? Yes Symptoms What Chronic Disease(s) does the patient have: CHF and CKD Do you check your blood pressures at home? Yes, Enter readings: 125/81 Do you have new or worse shortness of breath with activity? No Do you have new or worsening trouble breathing while lying flat? No Do you have new or worsening swelling of legs, feet or ankles? No Do you feel like you are dehydrated for any reason, including not being able to eat or drink normally, or having less urine/much darker urine than normal for you? No Do you check your daily weight at home? Yes, Have you noticed a sudden gain in weight greater than three pounds in a day or three pounds in a week? No Are you having any other symptoms that your PCP needs to know about? No Symptom Escalation The patient required an escalation for symptom(s)? No Medications Do you have any questions about taking your medication or which medications you should be on? No Do you need any medication refills at this time, including any of the medications you might take only when needed? No Social We would like to make sure you have what you need so that your basic needs are met- including your personal safety, food, housing and medications? Would you like to speak with a social work front desk team member to help give you support for any of these needs? No It can be normal to feel anxious or down during a time like this. Would you like to talk to a mental health professional about how you have been feeling? No Closing Thank you for taking the time to talk with me today. We want to work with you to ensure that we are keeping your medical condition(s) well-controlled and to keep you healthy and out of the doctor's office or hospital. It s also not too late for me to sign you up for automated weekly questionnaires through [employer]. This is an easy way for us to stay connected each week. Are you interested? No, I understand. We can always sign you up in the future if you change your mind. Just as a reminder, will continue to call you every other week to check in on your health. Our calls should take 10-15 minutes or less. Remember, if you have concerns in between our calls, please call your PCP's office right away. Thank you. Enter next patient outreach date for two weeks on the same day of the week as today in the Track Pt Outreach and End outreach. Jacquelyn Conley RN April 10, 2022 10:39 AM documented in this encounter [facility] 03-26-2022 History of Present illness Narrative [facility]IGHT [facility] TELEPHONIC OUTREACH Provider Action/FYI: Routed updates to Dr. Spencer and 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 Spangelito with Deirdre she noted Joseph has mild intermittent Sob with exertion, climbing the steps at [employer], He completed 03/06/[address] [facility], is scheduled 03/27/22 for a stress Test and Echo at [facility]. BP 126/80, wt 150 lbs Contact made with patient: Yes Patient identified by name and . Discussed care with spouse It s nice talking to you again. As a reminder, this is our bi-weekly check-in where I will be asking you questions about your health. This will only take a few minutes of your time. Is this a good time? Yes Symptoms What Chronic Disease(s) does the patient have: CHF and CKD Do you check your blood pressures at home? Yes, Enter readings: 126/80 Do you have new or worse shortness of breath with activity? Yes Do you have new or worsening trouble breathing while lying flat? No Do you have new or worsening swelling of legs, feet or ankles? No Do you feel like you are dehydrated for any reason, including not being able to eat or drink normally, or having less urine/much darker urine than normal for you? No Do you check your daily weight at home? Yes, Have you noticed a sudden gain in weight greater than three pounds in a day or three pounds in a week? No Are you having any other symptoms that your PCP needs to know about? Yes Symptom Escalation The patient required an escalation for symptom(s)? No Medications Do you have any questions about taking your medication or which medications you should be on? No Do you need any medication refills at this time, including any of the medications you might take only when needed? No Social We would like to make sure you have what you need so that your basic needs are met- including your personal safety, food, housing and medications? Would you like to speak with a social work front desk team member to help give you support for any of these needs? No It can be normal to feel anxious or down during a time like this. Would you like to talk to a mental health professional about how you have been feeling? No Closing Thank you for taking the time to talk with me today. We want to work with you to ensure that we are keeping your medical condition(s) well-controlled and to keep you healthy and out of the doctor's office or hospital. It s also not too late for me to sign you up for automated weekly questionnaires through [employer]. This is an easy way for us to stay connected each week. Are you interested? No, I understand. We can always sign you up in the future if you change your mind. Just as a reminder, will continue to call you every other week to check in on your health. Our calls should take 10-15 minutes or less. Remember, if you have concerns in between our calls, please call your PCP's office right away. Thank you. Enter next patient outreach date for two weeks on the same day of the week as today in the Track Pt Outreach and End outreach. Jacquelyn Conley RN March 26, 2022 4:19 PM documented in this encounter [facility] 03-19-2022 History of Present illness Narrative [facility]IGHT [facility] TELEPHONIC OUTREACH Provider Action/FYI: Call to Pt, left a message, related to CHF/ CKD symptom status and needs. Contact made with patient: No - Left message Hello my name is Jacquelyn Conley RN your Lockstitch Shoulder Joiner from the [facility] I am calling today for your bi-weekly check in. I am sorry I missed your call. I will reach out to you again tomorrow. (if the third call I will reach out to you again next week) Enter next patient outreach date for the following business day using the Track Pt Outreach. End outreach. Jacquelyn Conley RN March 19, 2022 4:47 PM documented in this encounter [facility] 03-18-2022 History of Present illness Narrative INSIGHT [facility] TELEPHONIC OUTREACH Provider Action/FYI: Call to Pt left a message to verify CHF/ CKD symptom status, and needs. Contact made with patient: No - Left message Hello my name is Jacquelyn Conley RN your Lockstitch Shoulder Joiner from the [facility] I am calling today for your bi-weekly check in. I am sorry I missed your call. I will reach out to you again tomorrow. (if the third call I will reach out to you again next week) Enter next patient outreach date for the following business day using the Track Pt Outreach. End outreach. Jacquelyn Conley RN March 18, 2022 3:18 PM documented in this encounter [facility] 03-16-2022 History of Present illness Narrative INSIGHT [facility] TELEPHONIC OUTREACH Provider Action/FYI: Call to Pt, left a message, related to CHF/ CKD symptom status and needs. Contact made with patient: No - Left message Iva my name is Jacquelyn Conley RN your Lockstitch Shoulder Joiner from the [facility] I am calling today for your bi-weekly check in. I am sorry I missed your call. I will reach out to you again tomorrow. (if the third call I will reach out to you again next week) Enter next patient outreach date for the following business day using the Track Pt Outreach. End outreach. Jacquelyn Conley RN March 16, 2022 4:20 PM documented in this encounter [facility] 03-10-2022 History of Present illness Narrative SUBJECTIVE: COVID-19 VACCINE(3 - Booster for Pfizer series) due on 08/04/2021 ADVANCE DIRECTIVE DISCUSSION Never done HPI Excerpted from previous visits: Darcy Covarrubias is a 85 year old male. Presents for follow up visit. His past medical history significant for CAD status post CABG, hypertension, hyperlipidemia, paroxysmal atrial fibrillation bileaflet mitral valve prolapse bradycardia status post permanent pacemaker, anemia, chronic kidney disease, combined systolic and diastolic heart failure, ROBERTO, history of intracranial bleed secondary to fall. Presents with his who helps with history. Has been seen by Dr. Lanza, banquet kitchen supervisor Yumiko April 2021. At that visit he was noted to have decreased memory and functional capacity over the last 3 to 4 months. Noted positional dizziness. Or difficulty with ambulation in house. His dose of spironolactone at that visit was decreased from 50 mg daily to 25 mg daily for symptomatic orthostatic hypotension. Today reports that he and his report fatigue. notes he is sleeping 8 to 10 hours at night and sleeping through the day. She notes he has continued on metoprolol 50 mg twice daily, has not yet decreased dose. Notes did decrease Spironolactone from 50 to 25 mg daily. Notes thinking that he is getting enough fluid. Notes following up with Dr. Olea for pain management, has had spine injections which did not help too much. Did have a spine photo equipment technician reported to lasted a few days and said for several months and a follow-up is scheduled. He notes chronic back pain that gives him some difficulty with walking, uses a cane. At previous visits here he has had positional dizziness and fatigue. Excessive sleepiness was noted. Previous visit dose of metoprolol was decreased, spironolactone changed to one half tab daily instead of Wednesday. He noted feeling less fatigue with these changes and no further positional lightheadedness. Returns to clinic today for follow-up visit having been seen at [facility] emergency department yesterday, January 05, 2022 for shortness of breath. BNP was noted to be elevated at 2105.4. Chest x-ray without acute changes. EKG showed atrial fibrillation with controlled rate. Hypokalemia noted on metabolic panel. Anemia on CBC, stable. Today he notes he continues to feel short of breath and have a cough. Notes he had a respiratory illness recently and cough is lingering on. Reports he had chest pain that he attributed to coughing when he was seen in the emergency department but no longer experiencing this. Notes shortness of breath with lying flat. Notes he has not yet started taking furosemide. Does have leg swelling. Weight increased 2 lbs since last here. Today he notes feeling improved. No report of shortness of breath or cough. No leg swelling. No increased abdominal girth. Weight is stable. He was unable to get into see a banquet kitchen supervisor with [facility] locally so he made an appointment with [facility]. Since last here he has been seen by [facility]. His metoprolol was discontinued and he was started on carvedilol 25 mg twice daily by the banquet kitchen supervisor. Stress test and echocardiogram was ordered. Without report of headache, chest pain, palpitations, dyspnea, peripheral edema, orthopnea, fatigue and PND. Last 14 Encounter BP Readings: Date: BP: 03/10/2022 130/82 01/13/2022 138/80 01/06/2022 160/80 11/18/2021 167/85[average[ 11/12/2021 173/77[BP Javan average[ 11/10/2021 120/84 11/08/2021 162/82 11/04/2021 165/96 10/21/2021 189/85[BP Javan average[ 09/16/2021 160/88 08/26/2021 140/84 08/18/2021 148/86 08/18/2021 171/84 07/28/2021 134/80 Creatinine Date Value Ref Range Status 01/09/2022 1.23 (H) 0.73 - 1.22 mg/dL Final 10/21/2021 1.14 0.73 - 1.22 mg/dL Final 08/15/2021 1.18 0.73 - 1.22 mg/dL Final 07/24/2021 1.41 (H) 0.73 - 1.22 mg/dL Final Hyperlipidemia. His most recent lipid panels are: Cholesterol, Total (mg/dL) Date Value 10/21/2021 121 04/16/2020 143 Total Cholesterol, Nonfasting (mg/dL) Date Value 10/21/2021 120 05/05/2021 108 HDL Cholesterol (mg/dL) Date Value 10/21/2021 31 04/16/2020 38 HDL Cholesterol, Nonfasting (mg/dL) Date Value 10/21/2021 31 05/05/2021 30 LDL Cholesterol (mg/dL) Date Value 10/21/2021 72 04/16/2020 91 LDL Cholesterol, Nonfasting (mg/dL) Date Value 10/21/2021 70 05/05/2021 63 Triglyceride (mg/dL) Date Value 10/21/2021 89 04/16/2020 72 Triglycerides, Nonfasting (mg/dL) Date Value 10/21/2021 94 05/05/2021 74 Review of Systems Constitutional: Negative for fatigue. Respiratory: Negative. Cardiovascular: Negative. Musculoskeletal: Negative for back pain and gait problem. Objective BP 130/82 Pulse 84 Resp 16 Wt 68.9 kg (152 lb) BMI 23.11 kg/m Physical Exam Vitals and nursing note reviewed. Constitutional: Appearance: Normal appearance. HENT: Head: Normocephalic and atraumatic. Eyes: Conjunctiva/sclera: Conjunctivae normal. Cardiovascular: Rate and Rhythm: Normal rate and regular rhythm. Heart sounds: Murmur heard. +JVD, scant bilateral LE edema Pulmonary: Effort: Pulmonary effort is normal. Breath sounds: Normal breath sounds. Abdominal: General: Bowel sounds are normal. Palpations: Abdomen is soft. Skin: General: Skin is warm and dry. Neurological: General: No focal deficit present. Mental Status: He is alert and oriented to person, place, and time. ALLERGIES Allergen Reactions Indocin [Indomethac* GI Upset Norvasc [Amlodipine* Other: See Comments Dizziness [id number]-Gyx Red* Other: See Comments myalgia Lisinopril Cough MEDICATIONS carvedilol (COREG) 25 mg tablet TAKE 1 TABLET BY MOUTH TWICE DAILY (MUST ADMINISTER WITH A MEAL/FOOD) losartan (COZAAR) 50 mg tablet Take 1 tablet by mouth once daily. spironolactone (ALDACTONE) 25 mg tablet Take 1 tablet by mouth once daily. ascorbic acid, vitamin C, (VITAMIN C) 500 mg tablet Take 500 mg by mouth once daily. Apple Cider Vinegar 500 mg tab Take by mouth. ubidecarenone/vitamin E mixed (COQ10 SG 100 ORAL) Take by mouth. Benzonatate 200 mg capsule Take 200 mg by mouth three times daily as needed. allopurinol (ZYLOPRIM) 100 mg tablet Take 2 tablets by mouth once daily. For gout. Magnesium Chloride (SLOW-MAG) 71.5 mg TbEC Take 2 tablets by mouth once daily. Cholecalciferol, Vitamin D3, 25 mcg (1,000 unit) cap Take 2 capsules by mouth once daily. atorvastatin (LIPITOR) 40 mg tablet Take 1 tablet by mouth once daily. apixaban (ELIQUIS) 2.5 mg tab tab(s) Take 1 tablet by mouth twice daily. Zinc 50 mg tab Take 50 mg by mouth once daily. OTC NUTRITIONAL SUPPLEMENT Vitamin B3 triamcinolone acetonide (NASACORT) 55 mcg nasal inhaler Use 2 Sprays in the nose once daily. [facility]iko E[employer] Qirma-7-SHH-EPA-Fish Oil (FISH OIL) 1,000 mg (120 mg-180 mg) cap Take 2 g by mouth once daily. PSYLLIUM HUSK, BULK, MISC Take 1 Packet by mouth once daily. pyridoxine, vitamin B6, (VITAMIN B-6) 100 mg tablet Take 1 tablet by mouth once daily. albuterol HFA (PROVENTIL HFA, VENTOLIN HFA) 90 mcg/actuation inhaler Inhale 2 Puffs as instructed every 4 hours as needed for wheezing/shortness of breath. metoprolol tartrate, short acting, (LOPRESSOR) 50 mg tablet Take 0.5 tablets by mouth twice daily. omeprazole (PRILOSEC) 20 mg capsule Take 1 capsule by mouth daily before breakfast. 1/2 hr before meal. cyanocobalamin (VITAMIN B-12) 1,000 mcg tab Take 1 tablet by mouth once daily. 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, mild MVP Other symptoms involving digestive system(787.99) Statin intolerance Social History Tobacco Use Smoking status: Never Smoker Smokeless tobacco: Never Used Vaping Use Vaping Use: Never used Substance Use Topics Alcohol use: No Drug use: No Component Latest Ref Rng & Units 07/24/2021 08/15/2021 10/21/2021 01/09/2022 WBC 3.70 - 11.00 k/uL 6.16 5.17 5.96 5.86 RBC 4.20 - 6.00 m/uL 3.10 (L) 3.18 (L) 3.63 (L) 3.42 (L) Hemoglobin 13.0 - 17.0 g/dL 10.5 (L) 11.2 (L) 11.9 (L) 11.0 (L) Hematocrit 39.0 - 51.0 % 32.3 (L) 33.2 (L) 36.5 (L) 34.0 (L) MCV 80.0 - 100.0 fL 104.2 (H) 104.4 (H) 100.6 (H) 99.4 MCH 26.0 - 34.0 pg 33.9 35.2 (H) 32.8 32.2 MCHC 30.5 - 36.0 g/dL 32.5 33.7 32.6 32.4 RDW-CV 11.5 - 15.0 % 13.9 14.5 13.4 15.9 (H) Platelet Count 150 - 400 k/uL 176 215 210 243 MPV 9.0 - 12.7 fL 9.9 9.7 9.9 9.9 Neut% % 67.3 66.3 67.2 Abs Neut (ANC) 1.45 - 7.50 k/uL 4.15 3.41 3.94 Lymph% % 20.3 18.2 16.4 Abs Lymph 1.00 - 4.00 k/uL 1.25 0.94 (L) 0.96 (L) [place]% % 9.1 10.6 11.6 Abs [place] <0.87 k/uL 0.56 0.55 0.68 Eosin% % 2.8 4.1 3.6 Abs Eosin <0.46 k/uL 0.17 0.21 0.21 Baso% % 0.5 0.8 0.9 Abs Baso <0.11 k/uL 0.03 0.04 0.05 Immature Gran % % 0.3 IMMATURE GRANS (ABS) <0.10 k/uL <0.03 NRBC /100 WBC 0.0 Absolute nRBC <0.01 k/uL <0.01 <0.01 <0.01 <0.01 DTYPE Auto Nucleated Reds 0 /100 WBC 0.0 0.0 Diff Type Auto Diff Auto Diff Protein, Total 6.3 - 8.0 g/dL 6.9 7.1 7.6 Albumin 3.9 - 4.9 g/dL 4.1 4.5 4.2 Calcium 8.5 - 10.2 mg/dL 9.5 9.6 9.7 9.4 Bilirubin, Total 0.2 - 1.3 mg/dL 0.5 0.9 1.1 Alkaline Phosphatase 38 - 113 U/L 88 101 93 AST 14 - 40 U/L 38 31 41 (H) Glucose 74 - 99 mg/dL 102 (H) 116 (H) 97 89 BUN 9 - 24 mg/dL 21 15 17 22 Creatinine 0.73 - 1.22 mg/dL 1.41 (H) 1.18 1.14 1.23 (H) Sodium 136 - 144 mmol/L 141 143 142 142 Potassium 3.7 - 5.1 mmol/L 4.3 3.4 (L) 3.6 (L) 3.8 Chloride 97 - 105 mmol/L 107 (H) 107 (H) 107 (H) 104 CO2 22 - 30 mmol/L 20 (L) 25 23 22 Anion Gap 9 - 18 mmol/L 14 11 12 16 ALT 10 - 54 U/L 37 25 34 eGFR- 58 >60 >60 eGFR-All Other Races . 48 59 >60 eGFR >=60 mL/min/1.73m 58 (L) Cholesterol, Total <200 mg/dL 121 Triglyceride <150 mg/dL 89 HDL Cholesterol >39 mg/dL 31 (L) LDL Cholesterol <100 mg/dL 72 Non HDL Cholesterol <130 mg/dL 90 Fasting Time hrs 8 VLDL Cholesterol <30 mg/dL 18 TC:HDL Ratio <5.10 3.90 LDL:HDL Ratio <2.54 2.32 Total Cholesterol, Nonfasting <200 mg/dL 120 Triglycerides, Nonfasting <150 mg/dL 94 HDL Cholesterol, Nonfasting >39 mg/dL 31 (L) LDL Cholesterol, Nonfasting <100 mg/dL 70 Non HDL Cholesterol, Nonfasting <130 mg/dL 89 VLDL Cholesterol, Nonfasting <30 mg/dL 19 Total Chol/HDL Ratio, Nonfasting <5.10 mg/dL 3.87 LDL/HDL Ratio, Nonfasting <2.54 mg/dL 2.26 Iron 41 - 186 ug/dL 95 TIBC 232 - 386 ug/dL 293 Transferrin Saturation 15 - 57 % 32 Hemoglobin A1C 4.3 - 5.6 % 5.1 5.6 Estimated Average Glucose mg/dL 100 114 Retic % 0.4 - 2.0 % 1.3 Abs Retic 0.0180 - 0.1000 M/uL 0.047 Uric Acid 4.0 - 8.1 mg/dL 4.4 4.8 Ferritin 30.3 - 565.7 ng/mL 154.0 Magnesium 1.7 - 2.3 mg/dL 1.2 (L) 1.2 (L) Vitamin D 25 Hydroxy 31.0 - 80.0 ng/mL 24.2 (L) 33.7 CRP <0.9 mg/dL <0.3 Erythropoietin 2.6 - 18.5 mIU/mL 16.6 NT Pro BNP <450 pg/mL 11,856 (H) ASSESSMENT/PLAN: 1. Congestive heart failure, unspecified HF chronicity, unspecified heart failure type (HCC) - ICD9: 428.0, ICD10: I50.9 Notes symptomatically improved. Continue with spironolactone 25 mg daily. He was switched from metoprolol to carvedilol 25 mg twice daily. Seen last Elliot so cannot tell yet if this is made any difference for him. He will follow with [facility] now. Echocardiogram stress test has been ordered and is being completed at [facility]. 2. S/P CABG (coronary artery bypass graft) - ICD9: V45.81, ICD10: Z95.1 3. Essential hypertension - ICD9: 401.9, ICD10: I10 controlled 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 APRN.CNS Medical Decision Making: Problems: Moderate: 1+ chronic illnesses with change Data: Unique test result(s) reviewed: 2 Medical Decision Making Level: 3 - Low \ documented in this encounter [facility] 03-06-2022 History of Present illness Narrative [facility] TELEPHONIC OUTREACH Provider Action/FYI: Call to Pt, left a message, related to CHF/ CKD symptom status and needs. Contact made with patient: No - Left message Hello my name is Jacquelyn Conley RN your Lockstitch Shoulder Joiner from the [facility] I am calling today for your bi-weekly check in. I am sorry I missed your call. I will reach out to you again tomorrow. (if the third call I will reach out to you again next week) Enter next patient outreach date for the following business day using the Track Pt Outreach. End outreach. Jacquelyn Conley RN March 06, 2022 10:09 AM [facility] TELEPHONIC OUTREACH Provider Action/FYI: Call to Pt related to CHF/ CKD status, line busy. Contact made with patient: No - Unable to leave message Entered next patient outreach date for the following business day, if third call please enter next outreach date for one week in the Track Pt. Outreach - End Outreach Jacquelyn Conley RN March 05, 2022 9:36 AM documented in this encounter [facility] 02-12-2022 Miscellaneous Notes Last seen MEAT PICKLER 01/13/22 Next appt 03/10/22 Patient has been identified by name and date of : Yes Pending Prescriptions Disp Refills LOSARTAN 50 MG TABLET 90 tablet 3 Sig: Take 1 tablet by mouth once daily. ANASTASIYA: No RX INSTRUCTIONS: Patient aware RX will be sent to pharmacy. No need to notify patient. Tish Duran documented in this encounter [facility] 02-03-2022 History of Present illness Narrative [facility]IGHT [facility] TELEPHONIC OUTREACH Provider Action/FYI: Spk with Pt who denies new or worsening CHF/ CKD symptoms or needs. Contact made with patient: Yes Patient identified by name and . Discussed care with patient It s nice talking to you again. As a reminder, this is our bi-weekly check-in where I will be asking you questions about your health. This will only take a few minutes of your time. Is this a good time? Yes Symptoms What Chronic Disease(s) does the patient have: CHF and CKD Do you check your blood pressures at home? No Do you have new or worse shortness of breath with activity? No Do you have new or worsening trouble breathing while lying flat? No Do you have new or worsening swelling of legs, feet or ankles? No Do you feel like you are dehydrated for any reason, including not being able to eat or drink normally, or having less urine/much darker urine than normal for you? No Do you check your daily weight at home? Yes, Have you noticed a sudden gain in weight greater than three pounds in a day or three pounds in a week? No Are you having any other symptoms that your PCP needs to know about? No Symptom Escalation The patient required an escalation for symptom(s)? No Medications Do you have any questions about taking your medication or which medications you should be on? No Do you need any medication refills at this time, including any of the medications you might take only when needed? No Social We would like to make sure you have what you need so that your basic needs are met- including your personal safety, food, housing and medications? Would you like to speak with a social work front desk team member to help give you support for any of these needs? No It can be normal to feel anxious or down during a time like this. Would you like to talk to a mental health professional about how you have been feeling? No Closing Thank you for taking the time to talk with me today. We want to work with you to ensure that we are keeping your medical condition(s) well-controlled and to keep you healthy and out of the doctor's office or hospital. It s also not too late for me to sign you up for automated weekly questionnaires through [employer]. This is an easy way for us to stay connected each week. Are you interested? No, I understand. We can always sign you up in the future if you change your mind. Just as a reminder, will continue to call you every other week to check in on your health. Our calls should take 10-15 minutes or less. Remember, if you have concerns in between our calls, please call your PCP's office right away. Thank you. Enter next patient outreach date for two weeks on the same day of the week as today in the Track Pt Outreach and End outreach. Jacquelyn Conley RN February 03, 2022 10:43 AM documented in this encounter [facility] documented as of this encounter (statuses as of 02/09/2023) [facility]02[facility]2021 History of Past illness Narrative* Problem Noted Date Resolved Date Heart failure, unspecified 03/26/202101/29 Overview: Per PCP note on 01/27/21 Atrial fibrillation 06/03/2017 02/17/2018 Chronic anticoagulation 09/03/2016 12/16/19 19 Last Assessment & Plan: - Was on Coumadin for pAF, reversed with VitK and Kaycentra - Holding AC for now Hypokalemia 02/05/2016 01/29/2023 Postinflammatory skin changes 09/20/2012 Neoplasm of uncertain behavior of skin 2 08/11/2016 Actinic Keratoses: Premalignant AK's 05/08/2011 08/11/2016 Solar Lentigines 05/08/2011 08/11/2016 Actinic skin damage 05/08/2011 08/11/2016 Other seborrheic keratosis 05/08/201108/11 Xerosis cutis 05/08/2011 08/11/2016 documented as of this encounter (statuses as of 03/01/2023) [facility] History of Past illness Narrative* Problem Noted Date Resolved Date Heart failure, unspecified 03/26/202101/29 Overview: Per PCP note on 01/27/21 Atrial fibrillation 06/03/2017 02/17/2018 Chronic anticoagulation 09/03/2016 12/16/19 19 Last Assessment & Plan: - Was on Coumadin for pAF, reversed with VitK and Kaycentra - Holding AC for now Hypokalemia 02/05/2016 01/29/2023 Postinflammatory skin changes 09/20/2012 Neoplasm of uncertain behavior of skin 2 08/11/2016 Actinic Keratoses: Premalignant AK's 05/08/2011 08/11/2016 Solar Lentigines 05/08/2011 08/11/2016 Actinic skin damage 05/08/2011 08/11/2016 Other seborrheic keratosis 05/08/201108/11 Xerosis cutis 05/08/2011 08/11/2016 documented as of this encounter (statuses as of 03/05/2023) [facility] History of Past illness Narrative* Problem Noted Date Resolved Date Heart failure, unspecified 03/26/202101/29 Overview: Per PCP note on 01/27/21 Atrial fibrillation 06/03/2017 02/17/2018 Chronic anticoagulation 09/03/2016 12/16/19 19 Last Assessment & Plan: - Was on Coumadin for pAF, reversed with VitK and Kaycentra - Holding AC for now Hypokalemia 02/05/2016 01/29/2023 Postinflammatory skin changes 09/20/2012 Neoplasm of uncertain behavior of skin 2 08/11/2016 Actinic Keratoses: Premalignant AK's 05/08/2011 08/11/2016 Solar Lentigines 05/08/2011 08/11/2016 Actinic skin damage 05/08/2011 08/11/2016 Other seborrheic keratosis 05/08/201108/11 Xerosis cutis 05/08/2011 08/11/2016 documented as of this encounter (statuses as of 04/02/2023) [facility] History of Past illness Narrative* Problem Noted Date Diagnosed Date Resolved Date Heart failure, unspecified 03/26/2021 0 01/29/2023 Overview: Per PCP note on 01/27/21 Atrial fibrillation 06/03/2017 02/18/20 18 Chronic anticoagulation 09/03/201611/26 Last Assessment & Plan: - Was on Coumadin for pAF, reversed with VitK and Kaycentra - Holding AC for now Hypokalemia 02/05/2016 01/29/2023 Postinflammatory skin changes 09/20/2012 08/11/2016 Neoplasm of uncertain behavior of skin 03/19/2012 08/11/2016 Actinic Keratoses: Premalignant AK's 05/08/2011 08/11/2016 Solar Lentigines 05/08/2011 08/11/2016 Actinic skin damage 05/08/2011 08/11/20 16 Other seborrheic keratosis 05/08/2011 1 Xerosis cutis 05/08/2011 08/11/2016 documented as of this encounter (statuses as of 05/06/2023) [facility] History of Past illness Narrative* Problem Noted Date Diagnosed Date Resolved Date Heart failure, unspecified 03/26/2021 0 01/29/2023 Overview: Per PCP note on 01/27/21 Atrial fibrillation 06/03/2017 02/18/20 18 Chronic anticoagulation 09/03/201611/26 Last Assessment & Plan: - Was on Coumadin for pAF, reversed with VitK and Kaycentra - Holding AC for now Hypokalemia 02/05/2016 01/29/2023 Postinflammatory skin changes 09/20/2012 08/11/2016 Neoplasm of uncertain behavior of skin 03/19/2012 08/11/2016 Actinic Keratoses: Premalignant AK's 05/08/2011 08/11/2016 Solar Lentigines 05/08/2011 08/11/2016 Actinic skin damage 05/08/2011 08/11/20 16 Other seborrheic keratosis 05/08/2011 1 Xerosis cutis 05/08/2011 08/11/2016 documented as of this encounter (statuses as of 05/16/2023) 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 History of Past illness Narrative* Problem Noted Date Diagnosed Date Resolved Date Heart failure, unspecified 03/26/2021 0 01/29/2023 Overview: Per PCP note on 01/27/21 Atrial fibrillation 06/03/2017 02/18/20 18 Chronic anticoagulation 09/03/201611/26 Last Assessment & Plan: - Was on Coumadin for pAF, reversed with VitK and Kaycentra - Holding AC for now Hypokalemia 02/05/2016 01/29/2023 Postinflammatory skin changes 09/20/2012 08/11/2016 Neoplasm of uncertain behavior of skin 03/19/2012 08/11/2016 Actinic Keratoses: Premalignant AK's 05/08/2011 08/11/2016 Solar Lentigines 05/08/2011 08/11/2016 Actinic skin damage 05/08/2011 08/11/20 16 Other seborrheic keratosis 05/08/2011 1 Xerosis cutis 05/08/2011 08/11/2016 documented as of this encounter (statuses as of 06/22/2023) [facility] History of Past illness Narrative* Problem Noted Date Diagnosed Date Resolved Date Heart failure, unspecified 03/26/2021 0 01/29/2023 Overview: Per PCP note on 01/27/21 Atrial fibrillation 06/03/2017 02/18/20 18 Chronic anticoagulation 09/03/201611/26 Last Assessment & Plan: - Was on Coumadin for pAF, reversed with VitK and Kaycentra - Holding AC for now Hypokalemia 02/05/2016 01/29/2023 Postinflammatory skin changes 09/20/2012 08/11/2016 Neoplasm of uncertain behavior of skin 03/19/2012 08/11/2016 Actinic Keratoses: Premalignant AK's 05/08/2011 08/11/2016 Solar Lentigines 05/08/2011 08/11/2016 Actinic skin damage 05/08/2011 08/11/20 16 Other seborrheic keratosis 05/08/2011 1 Xerosis cutis 05/08/2011 08/11/2016 documented as of this encounter (statuses as of 07/17/2023) [facility] History of Past illness Narrative* Problem Noted Date Diagnosed Date Resolved Date Heart failure, unspecified 03/26/2021 0 01/29/2023 Overview: Per PCP note on 01/27/21 Atrial fibrillation 06/03/2017 02/18/20 18 Chronic anticoagulation 09/03/201611/26 Last Assessment & Plan: - Was on Coumadin for pAF, reversed with VitK and Kaycentra - Holding AC for now Hypokalemia 02/05/2016 01/29/2023 Postinflammatory skin changes 09/20/2012 08/11/2016 Neoplasm of uncertain behavior of skin 03/19/2012 08/11/2016 Actinic Keratoses: Premalignant AK's 05/08/2011 08/11/2016 Solar Lentigines 05/08/2011 08/11/2016 Actinic skin damage 05/08/2011 08/11/20 16 Other seborrheic keratosis 05/08/2011 1 Xerosis cutis 05/08/2011 08/11/2016 documented as of this encounter (statuses as of 08/10/2023) [facility] History of Past illness Narrative* Problem Noted Date Diagnosed Date Resolved Date Heart failure, unspecified 03/26/2021 0 01/29/2023 Overview: Per PCP note on 01/27/21 Atrial fibrillation 06/03/2017 02/18/20 18 Chronic anticoagulation 09/03/201611/26 Last Assessment & Plan: - Was on Coumadin for pAF, reversed with VitK and Kaycentra - Holding AC for now Hypokalemia 02/05/2016 01/29/2023 Postinflammatory skin changes 09/20/2012 08/11/2016 Neoplasm of uncertain behavior of skin 03/19/2012 08/11/2016 Actinic Keratoses: Premalignant AK's 05/08/2011 08/11/2016 Solar Lentigines 05/08/2011 08/11/2016 Actinic skin damage 05/08/2011 08/11/20 16 Other seborrheic keratosis 05/08/2011 1 Xerosis cutis 05/08/2011 08/11/2016 documented as of this encounter (statuses as of 08/10/2023) [facility] History of Past illness Narrative* Problem Noted Date Resolved Date Atrial fibrillation 06/03/2017 02/17/2018 Chronic anticoagulation 09/03/2016 12/16/19 19 Last Assessment & Plan: - Was on Coumadin for pAF, reversed with VitK and Kaycentra - Holding AC for now Postinflammatory skin changes 09/20/2012 Neoplasm of uncertain behavior of skin 2 08/11/2016 Actinic Keratoses: Premalignant AK's 05/08/2011 08/11/2016 Solar Lentigines 05/08/2011 08/11/2016 Actinic skin damage 05/08/2011 08/11/2016 Other seborrheic keratosis 05/08/201108/11 Xerosis cutis 05/08/2011 08/11/2016 documented as of this encounter (statuses as of 02/03/2022) [facility] History of Past illness Narrative* Problem Noted Date Resolved Date Atrial fibrillation 06/03/2017 02/17/2018 Chronic anticoagulation 09/03/2016 12/16/19 19 Last Assessment & Plan: - Was on Coumadin for pAF, reversed with VitK and Kaycentra - Holding AC for now Postinflammatory skin changes 09/20/2012 Neoplasm of uncertain behavior of skin 2 08/11/2016 Actinic Keratoses: Premalignant AK's 05/08/2011 08/11/2016 Solar Lentigines 05/08/2011 08/11/2016 Actinic skin damage 05/08/2011 08/11/2016 Other seborrheic keratosis 05/08/201108/11 Xerosis cutis 05/08/2011 08/11/2016 documented as of this encounter (statuses as of 02/12/2022) [facility] History of Past illness Narrative* Problem Noted Date Resolved Date Atrial fibrillation 06/03/2017 02/17/2018 Chronic anticoagulation 09/03/2016 12/16/19 19 Last Assessment & Plan: - Was on Coumadin for pAF, reversed with VitK and Kaycentra - Holding AC for now Postinflammatory skin changes 09/20/2012 Neoplasm of uncertain behavior of skin 2 08/11/2016 Actinic Keratoses: Premalignant AK's 05/08/2011 08/11/2016 Solar Lentigines 05/08/2011 08/11/2016 Actinic skin damage 05/08/2011 08/11/2016 Other seborrheic keratosis 05/08/201108/11 Xerosis cutis 05/08/2011 08/11/2016 documented as of this encounter (statuses as of 03/06/2022) 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 History of Past illness Narrative* Problem Noted Date Resolved Date Atrial fibrillation 06/03/2017 02/17/2018 Chronic anticoagulation 09/03/2016 12/16/19 19 Last Assessment & Plan: - Was on Coumadin for pAF, reversed with VitK and Kaycentra - Holding AC for now Postinflammatory skin changes 09/20/2012 Neoplasm of uncertain behavior of skin 2 08/11/2016 Actinic Keratoses: Premalignant AK's 05/08/2011 08/11/2016 Solar Lentigines 05/08/2011 08/11/2016 Actinic skin damage 05/08/2011 08/11/2016 Other seborrheic keratosis 05/08/201108/11 Xerosis cutis 05/08/2011 08/11/2016 documented as of this encounter (statuses as of 03/13/2022) [facility] History of Past illness Narrative* Problem Noted Date Resolved Date Atrial fibrillation 06/03/2017 02/17/2018 Chronic anticoagulation 09/03/2016 12/16/19 19 Last Assessment & Plan: - Was on Coumadin for pAF, reversed with VitK and Kaycentra - Holding AC for now Postinflammatory skin changes 09/20/2012 Neoplasm of uncertain behavior of skin 2 08/11/2016 Actinic Keratoses: Premalignant AK's 05/08/2011 08/11/2016 Solar Lentigines 05/08/2011 08/11/2016 Actinic skin damage 05/08/2011 08/11/2016 Other seborrheic keratosis 05/08/201108/11 Xerosis cutis 05/08/2011 08/11/2016 documented as of this encounter (statuses as of 03/13/2022) 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 History of Past illness Narrative* Problem Noted Date Resolved Date Atrial fibrillation 06/03/2017 02/17/2018 Chronic anticoagulation 09/03/2016 12/16/19 19 Last Assessment & Plan: - Was on Coumadin for pAF, reversed with VitK and Kaycentra - Holding AC for now Postinflammatory skin changes 09/20/2012 Neoplasm of uncertain behavior of skin 2 08/11/2016 Actinic Keratoses: Premalignant AK's 05/08/2011 08/11/2016 Solar Lentigines 05/08/2011 08/11/2016 Actinic skin damage 05/08/2011 08/11/2016 Other seborrheic keratosis 05/08/201108/11 Xerosis cutis 05/08/2011 08/11/2016 documented as of this encounter (statuses as of 03/19/2022) [facility] History of Past illness Narrative* Problem Noted Date Resolved Date Atrial fibrillation 06/03/2017 02/17/2018 Chronic anticoagulation 09/03/2016 12/16/19 19 Last Assessment & Plan: - Was on Coumadin for pAF, reversed with VitK and Kaycentra - Holding AC for now Postinflammatory skin changes 09/20/2012 Neoplasm of uncertain behavior of skin 2 08/11/2016 Actinic Keratoses: Premalignant AK's 05/08/2011 08/11/2016 Solar Lentigines 05/08/2011 08/11/2016 Actinic skin damage 05/08/2011 08/11/2016 Other seborrheic keratosis 05/08/201108/11 Xerosis cutis 05/08/2011 08/11/2016 documented as of this encounter (statuses as of 03/19/2022) [facility] History of Past illness Narrative* Problem Noted Date Resolved Date Atrial fibrillation 06/03/2017 02/17/2018 Chronic anticoagulation 09/03/2016 12/16/19 19 Last Assessment & Plan: - Was on Coumadin for pAF, reversed with VitK and Kaycentra - Holding AC for now Postinflammatory skin changes 09/20/2012 Neoplasm of uncertain behavior of skin 2 08/11/2016 Actinic Keratoses: Premalignant AK's 05/08/2011 08/11/2016 Solar Lentigines 05/08/2011 08/11/2016 Actinic skin damage 05/08/2011 08/11/2016 Other seborrheic keratosis 05/08/201108/11 Xerosis cutis 05/08/2011 08/11/2016 documented as of this encounter (statuses as of 03/26/2022) [facility] History of Past illness Narrative* Problem Noted Date Resolved Date Atrial fibrillation 06/03/2017 02/17/2018 Chronic anticoagulation 09/03/2016 12/16/19 19 Last Assessment & Plan: - Was on Coumadin for pAF, reversed with VitK and Kaycentra - Holding AC for now Postinflammatory skin changes 09/20/2012 Neoplasm of uncertain behavior of skin 2 08/11/2016 Actinic Keratoses: Premalignant AK's 05/08/2011 08/11/2016 Solar Lentigines 05/08/2011 08/11/2016 Actinic skin damage 05/08/2011 08/11/2016 Other seborrheic keratosis 05/08/201108/11 Xerosis cutis 05/08/2011 08/11/2016 documented as of this encounter (statuses as of 04/10/2022) [facility] History of Past illness Narrative* Problem Noted Date Resolved Date Atrial fibrillation 06/03/2017 02/17/2018 Chronic anticoagulation 09/03/2016 12/16/19 19 Last Assessment & Plan: - Was on Coumadin for pAF, reversed with VitK and Kaycentra - Holding AC for now Postinflammatory skin changes 09/20/2012 Neoplasm of uncertain behavior of skin 2 08/11/2016 Actinic Keratoses: Premalignant AK's 05/08/2011 08/11/2016 Solar Lentigines 05/08/2011 08/11/2016 Actinic skin damage 05/08/2011 08/11/2016 Other seborrheic keratosis 05/08/201108/11 Xerosis cutis 05/08/2011 08/11/2016 documented as of this encounter (statuses as of 05/07/2022) [facility] History of Past illness Narrative* Problem Noted Date Resolved Date Atrial fibrillation 06/03/2017 02/17/2018 Chronic anticoagulation 09/03/2016 12/16/19 19 Last Assessment & Plan: - Was on Coumadin for pAF, reversed with VitK and Kaycentra - Holding AC for now Postinflammatory skin changes 09/20/2012 Neoplasm of uncertain behavior of skin 2 08/11/2016 Actinic Keratoses: Premalignant AK's 05/08/2011 08/11/2016 Solar Lentigines 05/08/2011 08/11/2016 Actinic skin damage 05/08/2011 08/11/2016 Other seborrheic keratosis 05/08/201108/11 Xerosis cutis 05/08/2011 08/11/2016 documented as of this encounter (statuses as of 05/08/2022) [facility] History of Past illness Narrative* Problem Noted Date Resolved Date Atrial fibrillation 06/03/2017 02/17/2018 Chronic anticoagulation 09/03/2016 12/16/19 19 Last Assessment & Plan: - Was on Coumadin for pAF, reversed with VitK and Kaycentra - Holding AC for now Postinflammatory skin changes 09/20/2012 Neoplasm of uncertain behavior of skin 2 08/11/2016 Actinic Keratoses: Premalignant AK's 05/08/2011 08/11/2016 Solar Lentigines 05/08/2011 08/11/2016 Actinic skin damage 05/08/2011 08/11/2016 Other seborrheic keratosis 05/08/201108/11 Xerosis cutis 05/08/2011 08/11/2016 documented as of this encounter (statuses as of 05/12/2022) [facility] History of Past illness Narrative* Problem Noted Date Resolved Date Atrial fibrillation 06/03/2017 02/17/2018 Chronic anticoagulation 09/03/2016 12/16/19 19 Last Assessment & Plan: - Was on Coumadin for pAF, reversed with VitK and Kaycentra - Holding AC for now Postinflammatory skin changes 09/20/2012 Neoplasm of uncertain behavior of skin 2 08/11/2016 Actinic Keratoses: Premalignant AK's 05/08/2011 08/11/2016 Solar Lentigines 05/08/2011 08/11/2016 Actinic skin damage 05/08/2011 08/11/2016 Other seborrheic keratosis 05/08/201108/11 Xerosis cutis 05/08/2011 08/11/2016 documented as of this encounter (statuses as of 05/15/2022) [facility] History of Past illness Narrative* Problem Noted Date Resolved Date Atrial fibrillation 06/03/2017 02/17/2018 Chronic anticoagulation 09/03/2016 12/16/19 19 Last Assessment & Plan: - Was on Coumadin for pAF, reversed with VitK and Kaycentra - Holding AC for now Postinflammatory skin changes 09/20/2012 Neoplasm of uncertain behavior of skin 2 08/11/2016 Actinic Keratoses: Premalignant AK's 05/08/2011 08/11/2016 Solar Lentigines 05/08/2011 08/11/2016 Actinic skin damage 05/08/2011 08/11/2016 Other seborrheic keratosis 05/08/201108/11 Xerosis cutis 05/08/2011 08/11/2016 documented as of this encounter (statuses as of 05/15/2022) [facility] History of Past illness Narrative* Problem Noted Date Resolved Date Atrial fibrillation 06/03/2017 02/17/2018 Chronic anticoagulation 09/03/2016 12/16/19 19 Last Assessment & Plan: - Was on Coumadin for pAF, reversed with VitK and Kaycentra - Holding AC for now Postinflammatory skin changes 09/20/2012 Neoplasm of uncertain behavior of skin 2 08/11/2016 Actinic Keratoses: Premalignant AK's 05/08/2011 08/11/2016 Solar Lentigines 05/08/2011 08/11/2016 Actinic skin damage 05/08/2011 08/11/2016 Other seborrheic keratosis 05/08/201108/11 Xerosis cutis 05/08/2011 08/11/2016 documented as of this encounter (statuses as of 05/26/2022) [facility] History of Past illness Narrative* Problem Noted Date Resolved Date Atrial fibrillation 06/03/2017 02/17/2018 Chronic anticoagulation 09/03/2016 12/16/19 19 Last Assessment & Plan: - Was on Coumadin for pAF, reversed with VitK and Kaycentra - Holding AC for now Postinflammatory skin changes 09/20/2012 Neoplasm of uncertain behavior of skin 2 08/11/2016 Actinic Keratoses: Premalignant AK's 05/08/2011 08/11/2016 Solar Lentigines 05/08/2011 08/11/2016 Actinic skin damage 05/08/2011 08/11/2016 Other seborrheic keratosis 05/08/201108/11 Xerosis cutis 05/08/2011 08/11/2016 documented as of this encounter (statuses as of 05/29/2022) [facility] History of Past illness Narrative* Problem Noted Date Resolved Date Atrial fibrillation 06/03/2017 02/17/2018 Chronic anticoagulation 09/03/2016 12/16/19 19 Last Assessment & Plan: - Was on Coumadin for pAF, reversed with VitK and Kaycentra - Holding AC for now Postinflammatory skin changes 09/20/2012 Neoplasm of uncertain behavior of skin 2 08/11/2016 Actinic Keratoses: Premalignant AK's 05/08/2011 08/11/2016 Solar Lentigines 05/08/2011 08/11/2016 Actinic skin damage 05/08/2011 08/11/2016 Other seborrheic keratosis 05/08/201108/11 Xerosis cutis 05/08/2011 08/11/2016 documented as of this encounter (statuses as of 06/15/2022) [facility] History of Past illness Narrative* Problem Noted Date Resolved Date Atrial fibrillation 06/03/2017 02/17/2018 Chronic anticoagulation 09/03/2016 12/16/19 19 Last Assessment & Plan: - Was on Coumadin for pAF, reversed with VitK and Kaycentra - Holding AC for now Postinflammatory skin changes 09/20/2012 Neoplasm of uncertain behavior of skin 2 08/11/2016 Actinic Keratoses: Premalignant AK's 05/08/2011 08/11/2016 Solar Lentigines 05/08/2011 08/11/2016 Actinic skin damage 05/08/2011 08/11/2016 Other seborrheic keratosis 05/08/201108/11 Xerosis cutis 05/08/2011 08/11/2016 documented as of this encounter (statuses as of 06/15/2022) [facility] History of Past illness Narrative* Problem Noted Date Resolved Date Atrial fibrillation 06/03/2017 02/17/2018 Chronic anticoagulation 09/03/2016 12/16/19 19 Last Assessment & Plan: - Was on Coumadin for pAF, reversed with VitK and Kaycentra - Holding AC for now Postinflammatory skin changes 09/20/2012 Neoplasm of uncertain behavior of skin 2 08/11/2016 Actinic Keratoses: Premalignant AK's 05/08/2011 08/11/2016 Solar Lentigines 05/08/2011 08/11/2016 Actinic skin damage 05/08/2011 08/11/2016 Other seborrheic keratosis 05/08/201108/11 Xerosis cutis 05/08/2011 08/11/2016 documented as of this encounter (statuses as of 06/18/2022) [facility] History of Past illness Narrative* Problem Noted Date Resolved Date Atrial fibrillation 06/03/2017 02/17/2018 Chronic anticoagulation 09/03/2016 12/16/19 19 Last Assessment & Plan: - Was on Coumadin for pAF, reversed with VitK and Kaycentra - Holding AC for now Postinflammatory skin changes 09/20/2012 Neoplasm of uncertain behavior of skin 2 08/11/2016 Actinic Keratoses: Premalignant AK's 05/08/2011 08/11/2016 Solar Lentigines 05/08/2011 08/11/2016 Actinic skin damage 05/08/2011 08/11/2016 Other seborrheic keratosis 05/08/201108/11 Xerosis cutis 05/08/2011 08/11/2016 documented as of this encounter (statuses as of 06/23/2022) [facility] History of Past illness Narrative* Problem Noted Date Resolved Date Atrial fibrillation 06/03/2017 02/17/2018 Chronic anticoagulation 09/03/2016 12/16/19 19 Last Assessment & Plan: - Was on Coumadin for pAF, reversed with VitK and Kaycentra - Holding AC for now Postinflammatory skin changes 09/20/2012 Neoplasm of uncertain behavior of skin 2 08/11/2016 Actinic Keratoses: Premalignant AK's 05/08/2011 08/11/2016 Solar Lentigines 05/08/2011 08/11/2016 Actinic skin damage 05/08/2011 08/11/2016 Other seborrheic keratosis 05/08/201108/11 Xerosis cutis 05/08/2011 08/11/2016 documented as of this encounter (statuses as of 07/11/2022) [facility] History of Past illness Narrative* Problem Noted Date Resolved Date Atrial fibrillation 06/03/2017 02/17/2018 Chronic anticoagulation 09/03/2016 12/16/19 19 Last Assessment & Plan: - Was on Coumadin for pAF, reversed with VitK and Kaycentra - Holding AC for now Postinflammatory skin changes 09/20/2012 Neoplasm of uncertain behavior of skin 2 08/11/2016 Actinic Keratoses: Premalignant AK's 05/08/2011 08/11/2016 Solar Lentigines 05/08/2011 08/11/2016 Actinic skin damage 05/08/2011 08/11/2016 Other seborrheic keratosis 05/08/201108/11 Xerosis cutis 05/08/2011 08/11/2016 documented as of this encounter (statuses as of 07/16/2022) [facility] History of Past illness Narrative* Problem Noted Date Resolved Date Atrial fibrillation 06/03/2017 02/17/2018 Chronic anticoagulation 09/03/2016 12/16/19 19 Last Assessment & Plan: - Was on Coumadin for pAF, reversed with VitK and Kaycentra - Holding AC for now Postinflammatory skin changes 09/20/2012 Neoplasm of uncertain behavior of skin 2 08/11/2016 Actinic Keratoses: Premalignant AK's 05/08/2011 08/11/2016 Solar Lentigines 05/08/2011 08/11/2016 Actinic skin damage 05/08/2011 08/11/2016 Other seborrheic keratosis 05/08/201108/11 Xerosis cutis 05/08/2011 08/11/2016 documented as of this encounter (statuses as of 07/17/2022) [facility] History of Past illness Narrative* Problem Noted Date Resolved Date Atrial fibrillation 06/03/2017 02/17/2018 Chronic anticoagulation 09/03/2016 12/16/19 19 Last Assessment & Plan: - Was on Coumadin for pAF, reversed with VitK and Kaycentra - Holding AC for now Postinflammatory skin changes 09/20/2012 Neoplasm of uncertain behavior of skin 2 08/11/2016 Actinic Keratoses: Premalignant AK's 05/08/2011 08/11/2016 Solar Lentigines 05/08/2011 08/11/2016 Actinic skin damage 05/08/2011 08/11/2016 Other seborrheic keratosis 05/08/201108/11 Xerosis cutis 05/08/2011 08/11/2016 documented as of this encounter (statuses as of 07/21/2022) [facility] History of Past illness Narrative* Problem Noted Date Resolved Date Atrial fibrillation 06/03/2017 02/17/2018 Chronic anticoagulation 09/03/2016 12/16/19 19 Last Assessment & Plan: - Was on Coumadin for pAF, reversed with VitK and Kaycentra - Holding AC for now Postinflammatory skin changes 09/20/2012 Neoplasm of uncertain behavior of skin 2 08/11/2016 Actinic Keratoses: Premalignant AK's 05/08/2011 08/11/2016 Solar Lentigines 05/08/2011 08/11/2016 Actinic skin damage 05/08/2011 08/11/2016 Other seborrheic keratosis 05/08/201108/11 Xerosis cutis 05/08/2011 08/11/2016 documented as of this encounter (statuses as of 07/22/2022) [facility] History of Past illness Narrative* Problem Noted Date Resolved Date Atrial fibrillation 06/03/2017 02/17/2018 Chronic anticoagulation 09/03/2016 12/16/19 19 Last Assessment & Plan: - Was on Coumadin for pAF, reversed with VitK and Kaycentra - Holding AC for now Postinflammatory skin changes 09/20/2012 Neoplasm of uncertain behavior of skin 2 08/11/2016 Actinic Keratoses: Premalignant AK's 05/08/2011 08/11/2016 Solar Lentigines 05/08/2011 08/11/2016 Actinic skin damage 05/08/2011 08/11/2016 Other seborrheic keratosis 05/08/201108/11 Xerosis cutis 05/08/2011 08/11/2016 documented as of this encounter (statuses as of 07/28/2022) [facility] History of Past illness Narrative* Problem Noted Date Resolved Date Atrial fibrillation 06/03/2017 02/17/2018 Chronic anticoagulation 09/03/2016 12/16/19 19 Last Assessment & Plan: - Was on Coumadin for pAF, reversed with VitK and Kaycentra - Holding AC for now Postinflammatory skin changes 09/20/2012 Neoplasm of uncertain behavior of skin 2 08/11/2016 Actinic Keratoses: Premalignant AK's 05/08/2011 08/11/2016 Solar Lentigines 05/08/2011 08/11/2016 Actinic skin damage 05/08/2011 08/11/2016 Other seborrheic keratosis 05/08/201108/11 Xerosis cutis 05/08/2011 08/11/2016 documented as of this encounter (statuses as of 2022) [facility] History of Past illness Narrative* Problem Noted Date Resolved Date Atrial fibrillation 06/03/2017 02/17/2018 Chronic anticoagulation 09/03/2016 12/16/19 19 Last Assessment & Plan: - Was on Coumadin for pAF, reversed with VitK and Kaycentra - Holding AC for now Postinflammatory skin changes 09/20/2012 Neoplasm of uncertain behavior of skin 2 08/11/2016 Actinic Keratoses: Premalignant AK's 05/08/2011 08/11/2016 Solar Lentigines 05/08/2011 08/11/2016 Actinic skin damage 05/08/2011 08/11/2016 Other seborrheic keratosis 05/08/201108/11 Xerosis cutis 05/08/2011 08/11/2016 documented as of this encounter (statuses as of 07/31/2022) [facility] History of Past illness Narrative* Problem Noted Date Resolved Date Atrial fibrillation 06/03/2017 02/17/2018 Chronic anticoagulation 09/03/2016 12/16/19 19 Last Assessment & Plan: - Was on Coumadin for pAF, reversed with VitK and Kaycentra - Holding AC for now Postinflammatory skin changes 09/20/2012 Neoplasm of uncertain behavior of skin 2 08/11/2016 Actinic Keratoses: Premalignant AK's 05/08/2011 08/11/2016 Solar Lentigines 05/08/2011 08/11/2016 Actinic skin damage 05/08/2011 08/11/2016 Other seborrheic keratosis 05/08/201108/11 Xerosis cutis 05/08/2011 08/11/2016 documented as of this encounter (statuses as of 08/03/2022) 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 History of Past illness Narrative* Problem Noted Date Resolved Date Atrial fibrillation 06/03/2017 02/17/2018 Chronic anticoagulation 09/03/2016 12/16/19 19 Last Assessment & Plan: - Was on Coumadin for pAF, reversed with VitK and Kaycentra - Holding AC for now Postinflammatory skin changes 09/20/2012 Neoplasm of uncertain behavior of skin 2 08/11/2016 Actinic Keratoses: Premalignant AK's 05/08/2011 08/11/2016 Solar Lentigines 05/08/2011 08/11/2016 Actinic skin damage 05/08/2011 08/11/2016 Other seborrheic keratosis 05/08/201108/11 Xerosis cutis 05/08/2011 08/11/2016 documented as of this encounter (statuses as of 08/07/2022) [facility] History of Past illness Narrative* Problem Noted Date Resolved Date Atrial fibrillation 06/03/2017 02/17/2018 Chronic anticoagulation 09/03/2016 12/16/19 19 Last Assessment & Plan: - Was on Coumadin for pAF, reversed with VitK and Kaycentra - Holding AC for now Postinflammatory skin changes 09/20/2012 Neoplasm of uncertain behavior of skin 2 08/11/2016 Actinic Keratoses: Premalignant AK's 05/08/2011 08/11/2016 Solar Lentigines 05/08/2011 08/11/2016 Actinic skin damage 05/08/2011 08/11/2016 Other seborrheic keratosis 05/08/201108/11 Xerosis cutis 05/08/2011 08/11/2016 documented as of this encounter (statuses as of 08/10/2022) [facility] History of Past illness Narrative* Problem Noted Date Resolved Date Atrial fibrillation 06/03/2017 02/17/2018 Chronic anticoagulation 09/03/2016 12/16/19 19 Last Assessment & Plan: - Was on Coumadin for pAF, reversed with VitK and Kaycentra - Holding AC for now Postinflammatory skin changes 09/20/2012 Neoplasm of uncertain behavior of skin 2 08/11/2016 Actinic Keratoses: Premalignant AK's 05/08/2011 08/11/2016 Solar Lentigines 05/08/2011 08/11/2016 Actinic skin damage 05/08/2011 08/11/2016 Other seborrheic keratosis 05/08/201108/11 Xerosis cutis 05/08/2011 08/11/2016 documented as of this encounter (statuses as of 08/11/2022) [facility] History of Past illness Narrative* Problem Noted Date Resolved Date Atrial fibrillation 06/03/2017 02/17/2018 Chronic anticoagulation 09/03/2016 12/16/19 19 Last Assessment & Plan: - Was on Coumadin for pAF, reversed with VitK and Kaycentra - Holding AC for now Postinflammatory skin changes 09/20/2012 Neoplasm of uncertain behavior of skin 2 08/11/2016 Actinic Keratoses: Premalignant AK's 05/08/2011 08/11/2016 Solar Lentigines 05/08/2011 08/11/2016 Actinic skin damage 05/08/2011 08/11/2016 Other seborrheic keratosis 05/08/201108/11 Xerosis cutis 05/08/2011 08/11/2016 documented as of this encounter (statuses as of 08/15/2022) [facility] History of Past illness Narrative* Problem Noted Date Resolved Date Atrial fibrillation 06/03/2017 02/17/2018 Chronic anticoagulation 09/03/2016 12/16/19 19 Last Assessment & Plan: - Was on Coumadin for pAF, reversed with VitK and Kaycentra - Holding AC for now Postinflammatory skin changes 09/20/2012 Neoplasm of uncertain behavior of skin 2 08/11/2016 Actinic Keratoses: Premalignant AK's 05/08/2011 08/11/2016 Solar Lentigines 05/08/2011 08/11/2016 Actinic skin damage 05/08/2011 08/11/2016 Other seborrheic keratosis 05/08/201108/11 Xerosis cutis 05/08/2011 08/11/2016 documented as of this encounter (statuses as of 08/19/2022) [facility] History of Past illness Narrative* Problem Noted Date Resolved Date Atrial fibrillation 06/03/2017 02/17/2018 Chronic anticoagulation 09/03/2016 12/16/19 19 Last Assessment & Plan: - Was on Coumadin for pAF, reversed with VitK and Kaycentra - Holding AC for now Postinflammatory skin changes 09/20/2012 Neoplasm of uncertain behavior of skin 2 08/11/2016 Actinic Keratoses: Premalignant AK's 05/08/2011 08/11/2016 Solar Lentigines 05/08/2011 08/11/2016 Actinic skin damage 05/08/2011 08/11/2016 Other seborrheic keratosis 05/08/201108/11 Xerosis cutis 05/08/2011 08/11/2016 documented as of this encounter (statuses as of 08/28/2022) [facility] History of Past illness Narrative* Problem Noted Date Resolved Date Atrial fibrillation 06/03/2017 02/17/2018 Chronic anticoagulation 09/03/2016 12/16/19 19 Last Assessment & Plan: - Was on Coumadin for pAF, reversed with VitK and Kaycentra - Holding AC for now Postinflammatory skin changes 09/20/2012 Neoplasm of uncertain behavior of skin 2 08/11/2016 Actinic Keratoses: Premalignant AK's 05/08/2011 08/11/2016 Solar Lentigines 05/08/2011 08/11/2016 Actinic skin damage 05/08/2011 08/11/2016 Other seborrheic keratosis 05/08/201108/11 Xerosis cutis 05/08/2011 08/11/2016 documented as of this encounter (statuses as of 08/28/2022) [facility] History of Past illness Narrative* Problem Noted Date Resolved Date Atrial fibrillation 06/03/2017 02/17/2018 Chronic anticoagulation 09/03/2016 12/16/19 19 Last Assessment & Plan: - Was on Coumadin for pAF, reversed with VitK and Kaycentra - Holding AC for now Postinflammatory skin changes 09/20/2012 Neoplasm of uncertain behavior of skin 2 08/11/2016 Actinic Keratoses: Premalignant AK's 05/08/2011 08/11/2016 Solar Lentigines 05/08/2011 08/11/2016 Actinic skin damage 05/08/2011 08/11/2016 Other seborrheic keratosis 05/08/201108/11 Xerosis cutis 05/08/2011 08/11/2016 documented as of this encounter (statuses as of 09/30/2022) [facility] History of Past illness Narrative* Problem Noted Date Resolved Date Atrial fibrillation 06/03/2017 02/17/2018 Chronic anticoagulation 09/03/2016 12/16/19 19 Last Assessment & Plan: - Was on Coumadin for pAF, reversed with VitK and Kaycentra - Holding AC for now Postinflammatory skin changes 09/20/2012 Neoplasm of uncertain behavior of skin 2 08/11/2016 Actinic Keratoses: Premalignant AK's 05/08/2011 08/11/2016 Solar Lentigines 05/08/2011 08/11/2016 Actinic skin damage 05/08/2011 08/11/2016 Other seborrheic keratosis 05/08/201108/11 Xerosis cutis 05/08/2011 08/11/2016 documented as of this encounter (statuses as of 10/09/2022) [facility] History of Past illness Narrative* Problem Noted Date Resolved Date Atrial fibrillation 06/03/2017 02/17/2018 Chronic anticoagulation 09/03/2016 12/16/19 19 Last Assessment & Plan: - Was on Coumadin for pAF, reversed with VitK and Kaycentra - Holding AC for now Postinflammatory skin changes 09/20/2012 Neoplasm of uncertain behavior of skin 2 08/11/2016 Actinic Keratoses: Premalignant AK's 05/08/2011 08/11/2016 Solar Lentigines 05/08/2011 08/11/2016 Actinic skin damage 05/08/2011 08/11/2016 Other seborrheic keratosis 05/08/201108/11 Xerosis cutis 05/08/2011 08/11/2016 documented as of this encounter (statuses as of 10/16/2022) [facility] History of Past illness Narrative* Problem Noted Date Resolved Date Atrial fibrillation 06/03/2017 02/17/2018 Chronic anticoagulation 09/03/2016 12/16/19 19 Last Assessment & Plan: - Was on Coumadin for pAF, reversed with VitK and Kaycentra - Holding AC for now Postinflammatory skin changes 09/20/2012 Neoplasm of uncertain behavior of skin 2 08/11/2016 Actinic Keratoses: Premalignant AK's 05/08/2011 08/11/2016 Solar Lentigines 05/08/2011 08/11/2016 Actinic skin damage 05/08/2011 08/11/2016 Other seborrheic keratosis 05/08/201108/11 Xerosis cutis 05/08/2011 08/11/2016 documented as of this encounter (statuses as of 11/04/2022) [facility] History of Past illness Narrative* Problem Noted Date Resolved Date Atrial fibrillation 06/03/2017 02/17/2018 Chronic anticoagulation 09/03/2016 12/16/19 19 Last Assessment & Plan: - Was on Coumadin for pAF, reversed with VitK and Kaycentra - Holding AC for now Postinflammatory skin changes 09/20/2012 Neoplasm of uncertain behavior of skin 2 08/11/2016 Actinic Keratoses: Premalignant AK's 05/08/2011 08/11/2016 Solar Lentigines 05/08/2011 08/11/2016 Actinic skin damage 05/08/2011 08/11/2016 Other seborrheic keratosis 05/08/201108/11 Xerosis cutis 05/08/2011 08/11/2016 documented as of this encounter (statuses as of 11/05/2022) [facility] History of Past illness Narrative* Problem Noted Date Resolved Date Atrial fibrillation 06/03/2017 02/17/2018 Chronic anticoagulation 09/03/2016 12/16/19 19 Last Assessment & Plan: - Was on Coumadin for pAF, reversed with VitK and Kaycentra - Holding AC for now Postinflammatory skin changes 09/20/2012 Neoplasm of uncertain behavior of skin 2 08/11/2016 Actinic Keratoses: Premalignant AK's 05/08/2011 08/11/2016 Solar Lentigines 05/08/2011 08/11/2016 Actinic skin damage 05/08/2011 08/11/2016 Other seborrheic keratosis 05/08/201108/11 Xerosis cutis 05/08/2011 08/11/2016 documented as of this encounter (statuses as of 11/20/2022) [facility] of Past illness Narrative* Problem Noted Date Resolved Date Atrial fibrillation 06/03/2017 02/17/2018 Chronic anticoagulation 09/03/2016 12/16/19 19 Last Assessment & Plan: - Was on Coumadin for pAF, reversed with VitK and Kaycentra - Holding AC for now Postinflammatory skin changes 09/20/2012 Neoplasm of uncertain behavior of skin 2 08/11/2016 Actinic Keratoses: Premalignant AK's 05/08/2011 08/11/2016 Solar Lentigines 05/08/2011 08/11/2016 Actinic skin damage 05/08/2011 08/11/2016 Other seborrheic keratosis 05/08/201108/11 Xerosis cutis 05/08/2011 08/11/2016 documented as of this encounter (statuses as of 11/20/2022) [facility] of Past illness Narrative* Problem Noted Date Resolved Date Atrial fibrillation 06/03/2017 02/17/2018 Chronic anticoagulation 09/03/2016 12/16/19 19 Last Assessment & Plan: - Was on Coumadin for pAF, reversed with VitK and Kaycentra - Holding AC for now Postinflammatory skin changes 09/20/2012 Neoplasm of uncertain behavior of skin 2 08/11/2016 Actinic Keratoses: Premalignant AK's 05/08/2011 08/11/2016 Solar Lentigines 05/08/2011 08/11/2016 Actinic skin damage 05/08/2011 08/11/2016 Other seborrheic keratosis 05/08/201108/11 Xerosis cutis 05/08/2011 08/11/2016 documented as of this encounter (statuses as of 11/24/2022) [facility] Past illness Narrative* Problem Noted Date Resolved Date Atrial fibrillation 06/03/2017 02/17/2018 Chronic anticoagulation 09/03/2016 12/16/19 19 Last Assessment & Plan: - Was on Coumadin for pAF, reversed with VitK and Kaycentra - Holding AC for now Postinflammatory skin changes 09/20/2012 Neoplasm of uncertain behavior of skin 2 08/11/2016 Actinic Keratoses: Premalignant AK's 05/08/2011 08/11/2016 Solar Lentigines 05/08/2011 08/11/2016 Actinic skin damage 05/08/2011 08/11/2016 Other seborrheic keratosis 05/08/201108/11 Xerosis cutis 05/08/2011 08/11/2016 documented as of this encounter (statuses as of 12/04/2022) [facility] of Past illness Narrative* Problem Noted Date Resolved Date Atrial fibrillation 06/03/2017 02/17/2018 Chronic anticoagulation 09/03/2016 12/16/19 19 Last Assessment & Plan: - Was on Coumadin for pAF, reversed with VitK and Kaycentra - Holding AC for now Postinflammatory skin changes 09/20/2012 Neoplasm of uncertain behavior of skin 2 08/11/2016 Actinic Keratoses: Premalignant AK's 05/08/2011 08/11/2016 Solar Lentigines 05/08/2011 08/11/2016 Actinic skin damage 05/08/2011 08/11/2016 Other seborrheic keratosis 05/08/201108/11 Xerosis cutis 05/08/2011 08/11/2016 documented as of this encounter (statuses as of 12/05/2022) [facility] of Past illness Narrative* Problem Noted Date Resolved Date Atrial fibrillation 06/03/2017 02/17/2018 Chronic anticoagulation 09/03/2016 12/16/19 19 Last Assessment & Plan: - Was on Coumadin for pAF, reversed with VitK and Kaycentra - Holding AC for now Postinflammatory skin changes 09/20/2012 Neoplasm of uncertain behavior of skin 2 08/11/2016 Actinic Keratoses: Premalignant AK's 05/08/2011 08/11/2016 Solar Lentigines 05/08/2011 08/11/2016 Actinic skin damage 05/08/2011 08/11/2016 Other seborrheic keratosis 05/08/201108/11 Xerosis cutis 05/08/2011 08/11/2016 documented as of this encounter (statuses as of 12/08/2022) [facility] Past illness Narrative* Problem Noted Date Resolved Date Atrial fibrillation 06/03/2017 02/17/2018 Chronic anticoagulation 09/03/2016 12/16/19 19 Last Assessment & Plan: - Was on Coumadin for pAF, reversed with VitK and Kaycentra - Holding AC for now Postinflammatory skin changes 09/20/2012 Neoplasm of uncertain behavior of skin 2 08/11/2016 Actinic Keratoses: Premalignant AK's 05/08/2011 08/11/2016 Solar Lentigines 05/08/2011 08/11/2016 Actinic skin damage 05/08/2011 08/11/2016 Other seborrheic keratosis 05/08/201108/11 Xerosis cutis 05/08/2011 08/11/2016 documented as of this encounter (statuses as of 01/07/2023) [facility] Past illness Narrative* Problem Noted Date Resolved Date Atrial fibrillation 06/03/2017 02/17/2018 Chronic anticoagulation 09/03/2016 12/16/19 19 Last Assessment & Plan: - Was on Coumadin for pAF, reversed with VitK and Kaycentra - Holding AC for now Postinflammatory skin changes 09/20/2012 Neoplasm of uncertain behavior of skin 2 08/11/2016 Actinic Keratoses: Premalignant AK's 05/08/2011 08/11/2016 Solar Lentigines 05/08/2011 08/11/2016 Actinic skin damage 05/08/2011 08/11/2016 Other seborrheic keratosis 05/08/201108/11 Xerosis cutis 05/08/2011 08/11/2016 documented as of this encounter (statuses as of 01/08/2023) 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 Bradycardia Other specified cardiac dysrhythmias [facility] Bilateral carotid artery stenosis- Primary Occlusion and stenosis of carotid artery without mention of cerebral infarction [facility] Diagnosis COVID-19- Primary MARCOS (acute kidney injury) (HCC) Acute kidney failure, unspecified Hypokalemia Hypopotassemia [facility] Diagnosis Peripheral edema- Primary Edema Cough, unspecified type 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 Chronic combined systolic and diastolic heart failure MARCSO (acute kidney injury) (HCC) Acute kidney failure, unspecified Hydronephrosis, unspecified hydronephrosis type Edema, unspecified type Chronic combined systolic and diastolic CHF (congestive heart failure) (HCC) Chronic combined systolic and diastolic heart failure Diarrhea, unspecified type [facility] Diagnosis MARCOS (acute kidney injury) (HCC)- Primary Acute kidney failure, unspecified [facility] Diagnosis Acute on chronic systolic CHF (congestive heart failure) (HCC)- Primary Acute on chronic systolic heart failure Encounter for immunization Need for other specified prophylactic vaccination against single bacterial disease 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 MARCOS (acute kidney injury) (HCC) Acute kidney failure, unspecified [facility] Diagnosis 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 [facility] Diagnosis Elevated glucose- Primary Other abnormal glucose [facility] Diagnosis MARCOS (acute kidney injury) (HCC)- Primary Acute kidney failure, unspecified Edema, unspecified type Hydronephrosis, unspecified hydronephrosis type Essential hypertension Unspecified essential hypertension 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 Gout with other specified manifestations [facility] Diagnosis Chronic cough- Primary Cough LPRD (laryngopharyngeal reflux disease) Other diseases of larynx Leg swelling Swelling of limb Collagenous colitis Other and unspecified noninfectious gastroenteritis and colitis Personal history of COVID-19 Essential hypertension Unspecified essential hypertension 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 Diagnosis MARCOS (acute kidney injury) (HCC)- Primary Acute kidney failure, unspecified Hypomagnesemia Disorders of magnesium metabolism Edema, unspecified type Heart failure, unspecified HF chronicity, unspecified heart failure type (HCC) [facility] Diagnosis 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- Primary Benign prostatic hyperplasia with urinary retention [facility] Diagnosis Stage 3b chronic kidney disease (HCC)- Primary Essential hypertension Unspecified essential hypertension 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 Hydronephrosis, unspecified hydronephrosis type Edema, unspecified type Diarrhea, unspecified type [facility] Diagnosis 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 MARCOS (acute kidney injury) (HCC) Acute kidney failure, unspecified documented in this encounter [facility] note* Diagnosis MARCOS (acute kidney injury) (HCC)- Primary Acute kidney failure, unspecified documented in this encounter [facility] note* Diagnosis Hyperuricemia Other abnormal blood chemistry documented in this encounter [facility] note* Diagnosis Essential hypertension- Primary Unspecified essential hypertension Hyperuricemia Other abnormal blood chemistry Mixed hyperlipidemia Stage 3 chronic kidney disease, unspecified whether stage 3a or 3b CKD (HCC) documented in this encounter [facility] note* Diagnosis Acidosis- Primary documented in this encounter [facility] for referral (narrative)* Outpatient Procedure (Routine) - Pending Review Specialty Diagnoses / Procedures Referred By Omi t Referred To Contact [facility] [place] Diagnoses Bilateral carotid artery stenosis Procedures US CAROTID ARTERIES [facility] DUPLEX SCAN EXTRACRANIAL ART COMPL BI STUDY Sharmin Ramesh DO [address] [place] [address] [facility] [address] [address] Referral ID Status Reason Start Date Expiration Date Visits Requested Visits Authorized [id number] Pending Review Auto-Generat ed Referral 05/07/2022 05/07/2023 1 1 [facility] for referral (narrative)* Diagnostic Procedure Only (Routine) - Pending Review Specialty Diagnoses / Procedures Referred By Omi flores Referred To Contact US IMAGING Diagnoses MARCOS (acute kidney injury) (HCC) Hydronephrosis, unspecified hydronephrosis type Procedures US KIDNEY/BLADDER US RETROPERITONEAL REAL TIME W/[place] [address] [place] [address] Us Imaging Referral ID Status Reason Start Date Expiration Date Visits Requested Visits Authorized [id number] Pending Review Auto-Generat ed Referral 07/10/2022 08/09/[address] 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 Advance Directive(s) 10/21/2021 2:03 PM Documents on File Type Date Recorded 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 Advance Directive(s) 10/21/2021 2:03 PM Reason for Referral Specialty Diagnoses / Procedures Referred By Omi flores Referred To Contact Urology Diagnoses 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 Procedures CONSULT TO UROLOGY OFFICE/OUTPATIENT NEW HIGH MDM 60-74 MINUTES 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, WIG COMBER.CHEMICAL EDUCATOR [address] [place] [address] Referral ID Status Reason Start Date Expiration Date Visits Requested Visits Authorized [id number] Authorized PCP Requested Referral 07/21/2022 07/21/2023 1 1 Additional Source Comments (unrecognized sect ion and content) No Status Records FoundNo Status Records FoundNo Status Records FoundNo Status Records Found INFORMATION SOURCE (unrecogn ized section and content) DATE CREATED AUTHOR AUTHOR'S ORGANIZ ATION 05/27/2022 [facility] DATE CREATED AUTHOR AUTHOR'S ORGANIZ ATION 12/09/2022 [facility] DATE CREATED AUTHOR AUTHOR'S ORGANIZ ATION 09/29/2023 [facility] Source Comments (unrecognize d section and content) In the event this informatio n is protected by the Federal Confidentiality of Alcohol and Drug Abuse Patient Records regulations: The Federal rules restrict any use of the information to criminally investigate or prosecute any alcohol or drug abuse patient.[facility] the event this information is protected by the Federal Confidentiality of Alcohol and Drug Abuse Patient Records regulations: The Federal rules restrict any use of the information to criminally investigate or prosecute any alcohol or drug abuse patient.[facility] the event this information is protected by the Federal Confidentiality of Alcohol and Drug Abuse Patient Records regulations: The Federal rules restrict any use of the information to criminally investigate or prosecute any alcohol or drug abuse patient.[facility] the event this information is protected by the Federal Confidentiality of Alcohol and Drug Abuse Patient Records regulations: The Federal rules restrict any use of the information to criminally investigate or prosecute any alcohol or drug abuse patient.[facility] the event this information is protected by the Federal Confidentiality of Alcohol and Drug Abuse Patient Records regulations: The Federal rules restrict any use of the information to criminally investigate or prosecute any alcohol or drug abuse patient.[facility] the event this information is protected by the Federal Confidentiality of Alcohol and Drug Abuse Patient Records regulations: The Federal rules restrict any use of the information to criminally investigate or prosecute any alcohol or drug abuse patient.[facility] the event this information is protected by the Federal Confidentiality of Alcohol and Drug Abuse Patient Records regulations: The Federal rules restrict any use of the information to criminally investigate or prosecute any alcohol or drug abuse patient.[facility] the event this information is protected by the Federal Confidentiality of Alcohol and Drug Abuse Patient Records regulations: The Federal rules restrict any use of the information to criminally investigate or prosecute any alcohol or drug abuse patient.[facility] the event this information is protected by the Federal Confidentiality of Alcohol and Drug Abuse Patient Records regulations: The Federal rules restrict any use of the information to criminally investigate or prosecute any alcohol or drug abuse patient.[facility] the event this information is protected by the Federal Confidentiality of Alcohol and Drug Abuse Patient Records regulations: The Federal rules restrict any use of the information to criminally investigate or prosecute any alcohol or drug abuse patient.[facility] the event this information is protected by the Federal Confidentiality of Alcohol and Drug Abuse Patient Records regulations: The Federal rules restrict any use of the information to criminally investigate or prosecute any alcohol or drug abuse patient.[facility] the event this information is protected by the Federal Confidentiality of Alcohol and Drug Abuse Patient Records regulations: The Federal rules restrict any use of the information to criminally investigate or prosecute any alcohol or drug abuse patient.[facility] the event this information is protected by the Federal Confidentiality of Alcohol and Drug Abuse Patient Records regulations: The Federal rules restrict any use of the information to criminally investigate or prosecute any alcohol or drug abuse patient.[facility] the event this information is protected by the Federal Confidentiality of Alcohol and Drug Abuse Patient Records regulations: The Federal rules restrict any use of the information to criminally investigate or prosecute any alcohol or drug abuse patient.[facility] the event this information is protected by the Federal Confidentiality of Alcohol and Drug Abuse Patient Records regulations: The Federal rules restrict any use of the information to criminally investigate or prosecute any alcohol or drug abuse patient.[facility] the event this information is protected by the Federal Confidentiality of Alcohol and Drug Abuse Patient Records regulations: The Federal rules restrict any use of the information to criminally investigate or prosecute any alcohol or drug abuse patient.[facility] the event this information is protected by the Federal Confidentiality of Alcohol and Drug Abuse Patient Records regulations: The Federal rules restrict any use of the information to criminally investigate or prosecute any alcohol or drug abuse patient.[facility] the event this information is protected by the Federal Confidentiality of Alcohol and Drug Abuse Patient Records regulations: The Federal rules restrict any use of the information to criminally investigate or prosecute any alcohol or drug abuse patient.[facility] the event this information is protected by the Federal Confidentiality of Alcohol and Drug Abuse Patient Records regulations: The Federal rules restrict any use of the information to criminally investigate or prosecute any alcohol or drug abuse patient.[facility] the event this information is protected by the Federal Confidentiality of Alcohol and Drug Abuse Patient Records regulations: The Federal rules restrict any use of the information to criminally investigate or prosecute any alcohol or drug abuse patient.[facility]In the event this information is protected by the Federal Confidentiality of Alcohol and Drug Abuse Patient Records regulations: The Federal rules restrict any use of the information to criminally investigate or prosecute any alcohol or drug abuse patient.[facility] the event this information is protected by the Federal Confidentiality of Alcohol and Drug Abuse Patient Records regulations: The Federal rules restrict any use of the information to criminally investigate or prosecute any alcohol or drug abuse patient.[facility] the event this information is protected by the Federal Confidentiality of Alcohol and Drug Abuse Patient Records regulations: The Federal rules restrict any use of the information to criminally investigate or prosecute any alcohol or drug abuse patient.[facility]In the event this information is protected by the Federal Confidentiality of Alcohol and Drug Abuse Patient Records regulations: The Federal rules restrict any use of the information to criminally investigate or prosecute any alcohol or drug abuse patient.[facility] the event this information is protected by the Federal Confidentiality of Alcohol and Drug Abuse Patient Records regulations: The Federal rules restrict any use of the information to criminally investigate or prosecute any alcohol or drug abuse patient.[facility] the event this information is protected by the Federal Confidentiality of Alcohol and Drug Abuse Patient Records regulations: The Federal rules restrict any use of the information to criminally investigate or prosecute any alcohol or drug abuse patient.[facility] the event this information is protected by the Federal Confidentiality of Alcohol and Drug Abuse Patient Records regulations: The Federal rules restrict any use of the information to criminally investigate or prosecute any alcohol or drug abuse patient.[facility] the event this information is protected by the Federal Confidentiality of Alcohol and Drug Abuse Patient Records regulations: The Federal rules restrict any use of the information to criminally investigate or prosecute any alcohol or drug abuse patient.[facility] the event this information is protected by the Federal Confidentiality of Alcohol and Drug Abuse Patient Records regulations: The Federal rules restrict any use of the information to criminally investigate or prosecute any alcohol or drug abuse patient.[facility]In the event this information is protected by the Federal Confidentiality of Alcohol and Drug Abuse Patient Records regulations: The Federal rules restrict any use of the information to criminally investigate or prosecute any alcohol or drug abuse patient.[facility]In the event this information is protected by the Federal Confidentiality of Alcohol and Drug Abuse Patient Records regulations: The Federal rules restrict any use of the information to criminally investigate or prosecute any alcohol or drug abuse patient.[facility]In the event this information is protected by the Federal Confidentiality of Alcohol and Drug Abuse Patient Records regulations: The Federal rules restrict any use of the information to criminally investigate or prosecute any alcohol or drug abuse patient.[facility]In the event this information is protected by the Federal Confidentiality of Alcohol and Drug Abuse Patient Records regulations: The Federal rules restrict any use of the information to criminally investigate or prosecute any alcohol or drug abuse patient.[facility]In the event this information is protected by the Federal Confidentiality of Alcohol and Drug Abuse Patient Records regulations: The Federal rules restrict any use of the information to criminally investigate or prosecute any alcohol or drug abuse patient.[facility]In the event this information is protected by the Federal Confidentiality of Alcohol and Drug Abuse Patient Records regulations: The Federal rules restrict any use of the information to criminally investigate or prosecute any alcohol or drug abuse patient.[facility]In the event this information is protected by the Federal Confidentiality of Alcohol and Drug Abuse Patient Records regulations: The Federal rules restrict any use of the information to criminally investigate or prosecute any alcohol or drug abuse patient.[facility]In the event this information is protected by the Federal Confidentiality of Alcohol and Drug Abuse Patient Records regulations: The Federal rules restrict any use of the information to criminally investigate or prosecute any alcohol or drug abuse patient.[facility]In the event this information is protected by the Federal Confidentiality of Alcohol and Drug Abuse Patient Records regulations: The Federal rules restrict any use of the information to criminally investigate or prosecute any alcohol or drug abuse patient.[facility]In the event this information is protected by the Federal Confidentiality of Alcohol and Drug Abuse Patient Records regulations: The Federal rules restrict any use of the information to criminally investigate or prosecute any alcohol or drug abuse patient.[facility]In the event this information is protected by the Federal Confidentiality of Alcohol and Drug Abuse Patient Records regulations: The Federal rules restrict any use of the information to criminally investigate or prosecute any alcohol or drug abuse patient.[facility]In the event this information is protected by the Federal Confidentiality of Alcohol and Drug Abuse Patient Records regulations: The Federal rules restrict any use of the information to criminally investigate or prosecute any alcohol or drug abuse patient.[facility]In the event this information is protected by the Federal Confidentiality of Alcohol and Drug Abuse Patient Records regulations: The Federal rules restrict any use of the information to criminally investigate or prosecute any alcohol or drug abuse patient.[facility]In the event this information is protected by the Federal Confidentiality of Alcohol and Drug Abuse Patient Records regulations: The Federal rules restrict any use of the information to criminally investigate or prosecute any alcohol or drug abuse patient.[facility]In the event this information is protected by the Federal Confidentiality of Alcohol and Drug Abuse Patient Records regulations: The Federal rules restrict any use of the information to criminally investigate or prosecute any alcohol or drug abuse patient.[facility]In the event this information is protected by the Federal Confidentiality of Alcohol and Drug Abuse Patient Records regulations: The Federal rules restrict any use of the information to criminally investigate or prosecute any alcohol or drug abuse patient.[facility]In the event this information is protected by the Federal Confidentiality of Alcohol and Drug Abuse Patient Records regulations: The Federal rules restrict any use of the information to criminally investigate or prosecute any alcohol or drug abuse patient.[facility]In the event this information is protected by the Federal Confidentiality of Alcohol and Drug Abuse Patient Records regulations: The Federal rules restrict any use of the information to criminally investigate or prosecute any alcohol or drug abuse patient.[facility]In the event this information is protected by the Federal Confidentiality of Alcohol and Drug Abuse Patient Records regulations: The Federal rules restrict any use of the information to criminally investigate or prosecute any alcohol or drug abuse patient.[facility]In the event this information is protected by the Federal Confidentiality of Alcohol and Drug Abuse Patient Records regulations: The Federal rules restrict any use of the information to criminally investigate or prosecute any alcohol or drug abuse patient.[facility]In the event this information is protected by the Federal Confidentiality of Alcohol and Drug Abuse Patient Records regulations: The Federal rules restrict any use of the information to criminally investigate or prosecute any alcohol or drug abuse patient.[facility]In the event this information is protected by the Federal Confidentiality of Alcohol and Drug Abuse Patient Records regulations: The Federal rules restrict any use of the information to criminally investigate or prosecute any alcohol or drug abuse patient.[facility]In the event this information is protected by the Federal Confidentiality of Alcohol and Drug Abuse Patient Records regulations: The Federal rules restrict any use of the information to criminally investigate or prosecute any alcohol or drug abuse patient.[facility]In the event this information is protected by the Federal Confidentiality of Alcohol and Drug Abuse Patient Records regulations: The Federal rules restrict any use of the information to criminally investigate or prosecute any alcohol or drug abuse patient.[facility]In the event this information is protected by the Federal Confidentiality of Alcohol and Drug Abuse Patient Records regulations: The Federal rules restrict any use of the information to criminally investigate or prosecute any alcohol or drug abuse patient.[facility]In the event this information is protected by the Federal Confidentiality of Alcohol and Drug Abuse Patient Records regulations: The Federal rules restrict any use of the information to criminally investigate or prosecute any alcohol or drug abuse patient.[facility]In the event this information is protected by the Federal Confidentiality of Alcohol and Drug Abuse Patient Records regulations: The Federal rules restrict any use of the information to criminally investigate or prosecute any alcohol or drug abuse patient.[facility]In the event this information is protected by the Federal Confidentiality of Alcohol and Drug Abuse Patient Records regulations: The Federal rules restrict any use of the information to criminally investigate or prosecute any alcohol or drug abuse patient.[facility]In the event this information is protected by the Federal Confidentiality of Alcohol and Drug Abuse Patient Records regulations: The Federal rules restrict any use of the information to criminally investigate or prosecute any alcohol or drug abuse patient.[facility]In the event this information is protected by the Federal Confidentiality of Alcohol and Drug Abuse Patient Records regulations: The Federal rules restrict any use of the information to criminally investigate or prosecute any alcohol or drug abuse patient.[facility]In the event this information is protected by the Federal Confidentiality of Alcohol and Drug Abuse Patient Records regulations: The Federal rules restrict any use of the information to criminally investigate or prosecute any alcohol or drug abuse patient.[facility]In the event this information is protected by the Federal Confidentiality of Alcohol and Drug Abuse Patient Records regulations: The Federal rules restrict any use of the information to criminally investigate or prosecute any alcohol or drug abuse patient.[facility]In the event this information is protected by the Federal Confidentiality of Alcohol and Drug Abuse Patient Records regulations: The Federal rules restrict any use of the information to criminally investigate or prosecute any alcohol or drug abuse patient.[facility]In the event this information is protected by the Federal Confidentiality of Alcohol and Drug Abuse Patient Records regulations: The Federal rules restrict any use of the information to criminally investigate or prosecute any alcohol or drug abuse patient.[facility]In the event this information is protected by the Federal Confidentiality of Alcohol and Drug Abuse Patient Records regulations: The Federal rules restrict any use of the information to criminally investigate or prosecute any alcohol or drug abuse patient.[facility] Reason for Visit (unrecogniz ed section and content) Reason Onset Date Comments Refill Request 02/12/2022 Reason Onset Date Comments Community Monitoring Outreach 03/05/2022 CH F / CKD Telephonic CDM Outreach Reason Comments 2 month f/u Reason Comments Remote Pacemaker Follow Up Reason Onset Date Comments Community Monitoring Outreach 03/16/2022 CH F / CKD Telephonic CDM Outreach Reason Onset Date Comments Community Monitoring Outreach 03/18/2022 CH F/ CKD Telephonic CDM Outreach Reason Onset Date Comments Community Monitoring Outreach 03/19/2022 CH F/ CKD Telephonic CDM Outreach Reason Onset Date Comments Community Monitoring Outreach 03/26/2022 CH F/ CKD Telephonic CDM Outreach Reason Onset Date Comments Community Monitoring Outreach 04/10/2022 CH F / CKD Telephonic CDM Outreach Reason Comments Results Reason Comments Patient Update Reason Onset Date Comments Community Monitoring Outreach 05/12/2022 CH F/ CKD Telephonic CDM Outreach Reason Comments Appointment Patient Update Reason Onset Date Comments Transition Of Care 05/15/2022 Reason Comments Hospital F/U Reason Onset Date Comments Community Monitoring Outreach 05/29/2022 CH F/ CKD Telephonic CDM Outreach Reason Comments Escalation of Care Reason Onset Date Comments Community Monitoring Outreach 06/15/2022 Reason Comments Medication Problem Reason Comments Edema Reason Comments Hypertension Chronic Kidney Disease Edema Reason Onset Date Comments Community Monitoring Outreach 07/17/2022 Reason Comments Hospital F/U Reason Onset Date Comments Transition Of Care 07/16/2022 Reason Comments Consult New Patient Specialty Diagnoses / Procedures Referred By Omi flores Referred To Contact Urology Diagnoses 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 Procedures CONSULT TO UROLOGY OFFICE/OUTPATIENT NEW HIGH MDM 60-74 MINUTES 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 APRN.CNS [address] [place] [address] Referral ID Status Reason Start Date Expiration Date V isits Requested Visits Authorized [id number] Closed PCP Requested Referral 07/21/2022 07/21/2023 1 1 Reason Comments Results Reason Comments Hypertension Follow Up Reason Comments F/U 6 months Reason Comments Consult Reason Onset Date Comments Community Monitoring Outreach 08/07/2022 Reason Onset Date Comments Refill Request 08/10/2022 Reason Comments Referral Request Reason Onset Date Comments Community Monitoring Outreach 08/28/2022 Reason Comments Nurse Visit Reason Onset Date Comments Community Monitoring Outreach 09/30/2022 Reason Onset Date Comments Refill Request 10/09/2022 Reason Onset Date Comments Refill Request 10/14/2022 Reason Comments Hypertension Chronic Kidney Disease Reason Onset Date Comments Community Monitoring Outreach 11/02/2022 Reason Comments Patient Question Refill Reason Comments Recheck Reason Comments Lockstitch Shoulder Joiner - Other Reason Onset Date Comments Community Monitoring Outreach 12/07/2022 Reason Onset Date Comments Refill Request 01/07/2023 Reason Onset Date Comments Community Monitoring Outreach 01/08/2023 Reason Onset Date Comments Community Monitoring Outreach 02/08/2023 Reason Onset Date Comments Community Monitoring Outreach 03/02/2023 Reason Onset Date Comments Community Monitoring Outreach 03/30/2023 Reason Onset Date Comments Community Monitoring Outreach 05/05/2023 Reason Onset Date Comments Community Monitoring Outreach 05/07/2023 Reason Onset Date Comments Community Monitoring Outreach 06/17/2023 Reason Onset Date Comments Community Monitoring Outreach 07/15/2023 Reason Comments Patient Update Pt wants to see anot her kidney doctor closer to home ([place], [place]) Reason Onset Date Comments Community Monitoring Outreach 08/06/2023 Care Teams (unrecognized sec tion and content) Team Driver Relationship Specialty Start Date End Date Arnold Spencer MD [address] [place] [address] PCP - General Internal Medicine 09/16/21 Jarvis Mcgee, brass bobbin winderManaging Consultant Clinical Professor Internal Medicine 10/22/21 Team Driver Relationship Specialty Start Date End Date Arnold Spencer MD [address] [facility] [place] [address] PCP - General Internal Medicine 09/16/21 Jarvis Mcgee, brass bobbin winderManaging Consultant Clinical Professor Internal Medicine 10/22/21 Team Driver Relationship Specialty Start Date End Date Arnold Spencer MD [address] [facility] [place] [address] PCP - General Internal Medicine 09/16/21 Jarvis Mcgee, brass bobbin winderManaging Consultant Clinical Professor Internal Medicine 10/22/21 Team Driver Relationship Specialty Start Date End Date Arnold Spencer MD [address] [facility] [place] [address] PCP - General Internal Medicine 09/16/21 Jarvis Mcgee, brass bobbin winderManaging Consultant Clinical Professor Internal Medicine 10/22/21 Team Driver Relationship Specialty Start Date End Date Arnold Spencer MD [address] [facility] [place] [address] PCP - General Internal Medicine 09/16/21 Jarvis Mcgee, brass bobbin winderManaging Consultant Clinical Professor Internal Medicine 10/22/21 Team Driver Relationship Specialty Start Date End Date Arnold Spencer MD [address] [facility] [place] [address] PCP - General Internal Medicine 09/16/21 Jarvis Mcgee, brass bobbin winderManaging Consultant Clinical Professor Internal Medicine 10/22/21 Team Driver Relationship Specialty Start Date End Date Arnold Spencer MD [address] [facility] [place] [address] PCP - General Internal Medicine 09/16/21 Jarvis Mcgee, brass bobbin winderManaging Consultant Clinical Professor Internal Medicine 10/22/21 Team Driver Relationship Specialty Start Date End Date Arnold Spencer MD [address] [facility] [place] [address] PCP - General Internal Medicine 09/16/21 Jarvis Mcgee, brass bobbin winderManaging Consultant Clinical Professor Internal Medicine 10/22/21 Team Driver Relationship Specialty Start Date End Date Arnold Spencer MD [address] [facility] [place] [address] PCP - General Internal Medicine 09/16/21 Jarvis Mcgee, brass bobbin winderManaging Consultant Clinical Professor Internal Medicine 10/22/21 Team Driver Relationship Specialty Start Date End Date Arnold Spencer MD [address] [facility] [place] [address] PCP - General Internal Medicine 09/16/21 Jarvis Mcgee, brass bobbin winderManaging Consultant Clinical Professor Internal Medicine 10/22/21 Team Driver Relationship Specialty Start Date End Date Arnold Spencer MD [address] [facility] [place] [address] PCP - General Internal Medicine 09/16/21 Jarvis Mcgee, brass bobbin winderManaging Consultant Clinical Professor Internal Medicine 10/22/21 Team Driver Relationship Specialty Start Date End Date Arnold Spencer MD [address] [facility] [place] [address] PCP - General Internal Medicine 09/16/21 Jarvis Mcgee, brass bobbin winderManaging Consultant Clinical Professor Internal Medicine 10/22/21 Team Driver Relationship Specialty Start Date End Date Arnold Spencer MD [address] [facility] [place] [address] PCP - General Internal Medicine 09/16/21 Jarvis Mcgee, brass bobbin winderManaging Consultant Clinical Professor Internal Medicine 10/22/21 Team Driver Relationship Specialty Start Date End Date Arnold Spencer MD [address] [facility] [place] [address] PCP - General Internal Medicine 09/16/21 Jarvis Mcgee, brass bobbin winderManaging Consultant Clinical Professor Internal Medicine 10/22/21 Team Driver Relationship Specialty Start Date End Date Arnold Spencer MD [address] [facility] [place] [address] PCP - General Internal Medicine 09/16/21 Jarvis Mcgee, brass bobbin winderManaging Consultant Clinical Professor Internal Medicine 10/22/21 Team Driver Relationship Specialty Start Date End Date Arnold Spencer MD [address] [facility] [place] [address] PCP - General Internal Medicine 09/16/21 Jarvis Mcgee, brass bobbin winderManaging Consultant Clinical Professor Internal Medicine 10/22/21 Team Driver Relationship Specialty Start Date End Date Arnold Spencer MD [address] [facility] [place] [address] PCP - General Internal Medicine 09/16/21 Jarvis Mcgee, brass bobbin winderManaging Consultant Clinical Professor Internal Medicine 10/22/21 Team Driver Relationship Specialty Start Date End Date Arnold Spencer MD [address] [facility] [place] [address] PCP - General Internal Medicine 09/16/21 Jacquelyn Conley, brass bobbin winderManaging Consultant Clinical Professor Internal Medicine 10/22/21 Team Driver Relationship Specialty Start Date End Date Arnold Spencer MD [address] [facility] [place] [address] PCP - General Internal Medicine 09/16/21 Jacquelyn Conley, brass bobbin winderManaging Consultant Clinical Professor Internal Medicine 10/22/21 Team Driver Relationship Specialty Start Date End Date Arnold Spencer MD [address] [facility] [place] [address] PCP - General Internal Medicine 09/16/21 Jacquelyn Conley, brass bobbin winderManaging Consultant Clinical Professor Internal Medicine 10/22/21 Team Driver Relationship Specialty Start Date End Date Arnold Spencer MD [address] [facility] [place] [address] PCP - General Internal Medicine 09/16/21 Jacquelyn Conley, brass bobbin winderManaging Consultant Clinical Professor Internal Medicine 10/22/21 Team Driver Relationship Specialty Start Date End Date Arnold Spencer MD [address] [facility] [place] [address] PCP - General Internal Medicine 09/16/21 Jacquelyn Conley, brass bobbin winderManaging Consultant Clinical Professor Internal Medicine 10/22/21 Team Driver Relationship Specialty Start Date End Date Arnold Spencer MD [address] [facility] [place] [address] PCP - General Internal Medicine 09/16/21 Jacquelyn Conley, brass bobbin winderManaging Consultant Clinical Professor Internal Medicine 10/22/21 Team Driver Relationship Specialty Start Date End Date Arnold Spencer MD [address] [facility] [place] [address] PCP - General Internal Medicine 09/16/21 Jacquelyn Conley, brass bobbin winderManaging Consultant Clinical Professor Internal Medicine 10/22/21 Team Driver Relationship Specialty Start Date End Date Arnold Spencer MD [address] [facility] [place] [address] PCP - General Internal Medicine 09/16/21 Jacquelyn Conley, brass bobbin winderManaging Consultant Clinical Professor Internal Medicine 10/22/21 Team Driver Relationship Specialty Start Date End Date Arnold Spencer MD [address] [facility] [place] [address] PCP - General Internal Medicine 09/16/21 Jacquelyn Conley, brass bobbin winderManaging Consultant Clinical Professor Internal Medicine 10/22/21 Team Driver Relationship Specialty Start Date End Date Arnold Spencer MD [address] [place] [address] PCP - General Internal Medicine 09/16/21 Jacquelyn Conley RN Managing Consultant Clinical Professor Internal Medicine 10/22/21 Team Driver Relationship Specialty Start Date End Date Arnold Spencer MD [address] [place] [address] PCP - General Internal Medicine 09/16/21 Jacquelyn Conley RN Managing Consultant Clinical Professor Internal Medicine 10/22/21 Team Driver Relationship Specialty Start Date End Date Jacquelyn Conley RN Managing Consultant Clinical Professor Internal Medicine 10/22/21 Team Driver Relationship Specialty Start Date End Date Jacquelyn Conley RN Managing Consultant Clinical Professor Internal Medicine 10/22/21 FOR RECORDS PERTAINING TO PATIENTS WHO ARE OR HAVE BEEN ENROLLED IN A CHEMICAL DEPENDENCY/SUBSTANCEABUSE PROGRAM, SOME INFORMATION MAY BE OMITTED. This clinical summary was aggregated from multiple sources. Caution should be exercised in using it in the provision of clinical care. This summary normalizes information from multiple sources, and as a consequence, information in this document may materially change the coding, format and clinical context of patient data. In addition, data may be omitted in some cases. CLINICAL DECISIONS SHOULD BE BASED ON THE PRIMARY CLINICAL RECORDS. [facility] [employer] [facility]. provides no warranty or guarantee of the accuracy or completeness of information in this document.
[2023-10-17 22:48] LABS: Absolute Lymphocyte Count 0.67 X10^3/uL (0.83-4.51); Absolute Neutrophil Count 4.8 X10^3/uL (2.0-7.7); Basophil# 0.03 X10^3/uL; Basophil% 0.5 % (0-1); Eosinophil# 0.44 X10^3/uL; Eosinophils% 6.8 % (0-5); Hematocrit 31.7 % (40-54); Lymphocyte # 0.67 X10^3/ul (0.83-4.51); Lymphocyte % 10.3 % (19-41); Mean Corp Hgb Conc 31.5 g/dL (32-36); Mean Corpuscular Hgb 33.6 pg (27.0-32.0); Mean Corpuscular Volume 106.4 fL (80-94); Mean Platelet Vol. 9.7 fl (6.2-12.0); Monocyte# 0.58 X10^3/uL; Monocyte% 8.9 % (0-10); NRBC Flagged by Analyzer 0 % (0-5); Neutrophil # 4.77 X10^3/uL (2.7-7.7); Neutrophil % 73.2 % (47-70); Platelet Count 153 K/mm3 (150-450); RBC Distribution Width CV 15.4 % (11.6-14.6); RBC Distribution Width SD 59.8 fl (35.1-43.9); Red Blood Count 2.98 M/mm3 (4.6-6.2); White Blood Count 6.5 K/mm3 (4.4-11.0)
[2023-10-17 22:55] LABS: International Normalized Ratio 1.4; Prothrombin Time (Protime)PT. 16.7 SECONDS (11.7-14.9)
[2023-10-17] MEDS: 0.9% Normal Saline (1000mL) 1,000 ML 999 ML IV (22:55)
[2023-10-17 22:56] LABS: Partial Thromboplast Time 37.7 Seconds (24.1-36.2)
[2023-10-17 23:07] LABS: ALB/GLOB Ratio 1.1 RATIO (0.9-2.4); AST(SGOT) 21 U/L (15-37); Alanine Aminotransfer ALT/SGPT 46 U/L (16-61); Albumin, Serum 3.6 g/dL (3.2-5.0); Alkaline Phosphatase 95 U/L (45-117); Anion Gap 5 (5-15); BUN 52 mg/dL (7-18); BUN/Creat Ratio 24.5 RATIO (10-20); Calcium,Total 8.9 mg/dL (8.5-10.1); Chloride 113 mmol/L (98-107); Creatinine, Serum 2.12 mg/dL (0.70-1.30); EST Glomerular Filtration Rate 32 mL/min (>60); Est Glom Filt Rate - Afr Amer 38 mL/min (>60); Estimated Creatinine Clearance 23.75 ml/min; Globulin 3.2 g/dL (2.2-4.2); Glucose 130 mg/dL (74-106); Potassium 4.5 mmol/L (3.5-5.1); Protein, Total 6.8 g/dL (6.4-8.2); Sodium Level 140 mmol/L (136-145); Troponin-I HS 37 pg/mL (3.0-78.0)
--- NOTE | 2023-10-17 23:10 | RAD_ITS ---
INDICATION: Fever EXAMINATION/TECHNIQUE: X-RAY - XR Chest 1 View COMPARISON: September 19, 2023. FINDINGS: LINES/DEVICES: 2-lead left chest pacer. LUNGS: Improved aeration in the lower lungs from prior exam. No current consolidation. No florid edema or effusion. No pneumothorax. MEDIASTINUM AND CARDIOVASCULAR STRUCTURES: Unchanged cardiomegaly.. Mild aortic atherosclerosis. Sternotomy wires are midline and intact. BONES AND SOFT TISSUES: Unremarkable. RAD/Chest 1 View (Portable) IMPRESSION: No radiographic evidence of acute cardiopulmonary disease. Cardiomegaly and pacer without florid edema. Electronically Signed: Vincent Cadet MD at 23:46 EST ,
[2023-10-17 23:33] LABS: Lactic Acid 2.1 mmol/L (0.4-1.9)
[2023-10-17 23:42] LABS: Bacteria 0 SEEN /hpf (None Seen); Mucous, Urine 0 SEEN /hpf (<or=2+); Red Blood Cells-Urine 0 SEEN /hpf (0-5); Squamous Epithelial Cells - UA 0 SEEN /hpf (0-5); White Blood Cells 0 SEEN /hpf (0-5)
[2023-10-17 23:54] VITALS: BP 140/74; PULSE 100; RESP 16; TEMP 36.8; O2SAT 96
[2023-10-17 23:57] VITALS: BP 140/74; PULSE 100; RESP 16; TEMP 36.7; O2SAT 94
[2023-10-18] VITALS (8 sets, daily range): BP systolic 106–126; BP diastolic 46–69; PULSE 66–101; RESP 16–20; TEMP 36.8–37.3; O2SAT 93–97; BMI 22.8
[2023-10-18] MEDS: 0.9% Normal Saline (1000mL) 1,000 ML 999 ML IV
[2023-10-18 00:03] LABS: Color, Urine Yellow (Yellow); Glucose, Dipstick Normal (Normal); Ketone-Dipstick Negative (Negative); Leukocyte Esterase-Dipstick Negative /ul (Negative); Nitrite-Dipstick Negative (Negative); Occult Blood-Urine Negative /ul (Negative); Protein-Dipstick 30 mg/dl (Negative); Urine Bilirubin Dipstick Negative (Negative); Urine Clarity Clear (Clear); Urine Urobilinogen Normal (Normal)
--- NOTE | 2023-10-18 00:24 | PCM.HP.STD ---
[facility] - General General Date of Admission: 10/18/23 Date of Service: 10/18/23 Chief Complaint: Generalized weakness with inability to get up from toilet HPI Narrative DARCY COVARRUBIAS, is a 88 M with a past medical history of essential hypertension, hyperlipidemia, paroxysmal atrial fibrillation; on apixaban, coronary artery disease; is post CABG x 3 (2014), history of ischemic cardiomyopathy, history of chronic diastolic CHF: with preserved left ventricular ejection fraction, history of sick sinus syndrome; status post permanent pacemaker, history of carotid artery disease, history of intracerebral hemorrhage; s/p craniotomy (2018), chronic anemia, chronic kidney disease stage III, chronic gout, osteoarthritis, history of COVID-19 and recent history of pneumonia in late August 2023; with patient receiving home health care until last week who presents to [facility] ER complaining of being generally weak with inability to get off the toilet. Mr. Covarrubias reports his symptoms began approximately 1 hour prior to arrival when he went to the bathroom and was so generally weak he could not stand up. EMS was activated and noted that he had a fever of 102 ?F though the patient denied feeling feverish. He denies associated dysuria, hematuria, nausea, vomiting, diarrhea or constipation but he does admit to occasional chills. His family can no longer care for him at home given his current condition and they are apparently seeking possible intermediate facility for subacute rehabilitation. The ER his assay returned positive for COVID-19 complicated by laboratory evidence of mild lactic acidosis of 2.1 mmol/L present on admission causing generalized weakness with ambulatory dysfunction after a recent episode of severe pneumonia and he was then admitted to the general medical floor under droplet and isolation precautions for ongoing care for stay that is expected to be greater than 48 hours. [facility] Medical History Acute electrocardiogram changes Atherosclerosis of [place] coronary artery of [place] heart without angina pectoris Brain bleed Carotid artery disease Chest pain Chronic kidney disease (CKD) Congestive heart failure COVID-19 GERD (gastroesophageal reflux disease) Hypoxemia Ischemic cardiomyopathy Kidney disease, chronic, stage III (GFR 30-59 ml/min) Paroxysmal atrial fibrillation Pneumonia of both lower lobes Home Medications allopurinol 100 mg tablet 100 mg PO BID Gout 11/24/18 [History Last Taken 09/19/23 03:30] atorvastatin 40 mg tablet 40 mg PO QHS Cholesterol 11/24/18 [History Last Taken 05/06/22] pyridoxine (vitamin B6) 100 mg tablet 100 mg PO DAILY supplement 11/24/18 [History Last Taken 09/19/23 03:30] albuterol sulfate 90 mcg/actuation aerosol inhaler 2 puff inhalation Q4H PRN shortness of breath or wheezing #8.5 grams 12/25/20 [Rx Last Taken Unknown] ascorbate calcium (vitamin C) 500 mg tablet 500 mg PO DAILY supplement 12/25/20 [History Last Taken 09/19/23 03:30] mecobalamin (vitamin B12) 1,000 mcg disintegrating tablet,sublingual 1,000 mcg sublingual DAILY supplement 12/25/20 [History Last Taken 05/07/22] cholecalciferol (vitamin D3) 50 mcg (2,000 unit) tablet 50 mcg PO DAILY #1 TAB 03/09/22 [Rx Last Taken 09/19/23 03:30] coenzyme Q10 100 mg tablet 100 mg PO DAILY 09/24/22 [History Last Taken Unknown] torsemide 20 mg tablet 20 mg PO .COMPLEX edema 11/19/22 [History Last Taken Unknown] carvedilol 12.5 mg tablet 25 mg (2 x 12.5 mg) PO BID HTN #180 tabs 06/30/23 [Rx Last Taken 09/19/23 03:30] potassium chloride 20 mEq tablet,extended release 20 meq PO DAILY Hypokalemia 06/30/23 [History Last Taken Unknown] sodium bicarbonate 325 mg tablet 650 mg PO DAILY 06/30/23 [History Last Taken Unknown] nitroglycerin 0.4 mg sublingual tablet 0.4 mg sublingual Q5M PRN Cardiac/Chest Pain #30 tabs 09/02/23 [Rx Last Taken Unknown] apixaban 2.5 mg tablet 2.5 mg PO BID Blood thinner #180 tabs 09/30/23 [Rx Last Taken Unknown] Allergy/AdvReac Type Severity Reaction Status Date / Time No Known Allergies Allergy Verified 10/17/23 21:17 Family History Father CAD (coronary artery disease) Surgical History History of brain surgery History of coronary artery bypass graft x 3 History of craniotomy History of permanent cardiac pacemaker placement Social History Smoking Status: Never smoker alcohol intake: never substance use type: does not use caffeine: No ROS ROS Narrative Review of systems: Constitutional: Patient admits to chills but denies fever though his temperature was 102 ?F on EMS evaluation. Eyes: Patient denies visual changes or discharge from eyes. ENT: Patient denies runny nose sore throat or ear pain. Cardiovascular: Patient denies chest pain, palpitations or pedal edema. Respiratory: Patient denies shortness of breath or cough. Abdominal: Patient denies abdominal pain, nausea, vomiting, diarrhea or constipation. Genitourinary: Patient denies dysuria, hematuria or urinary frequency. Musculoskeletal: Patient denies myalgias or arthralgias but he is generally weak with inability to stand up from a toilet. Skin: Patient denies rash or jaundice. Neurologic: Patient denies headache, lightheadedness or focal neurologic weakness. Psychiatric: Patient denies uncontrolled depression or anxiety. Allergic: Patient denies lip swelling, tongue swelling or urticaria. Hematologic: Patient denies easy bleeding or easy bruisability. 14 point review systems otherwise negative except for positives noted above in HPI. Vital Signs Vital Signs Vital Signs: 10/17/23 21:17 10/17/23 23:03 10/17/23 23:54 Temperature 98.7 F 98.3 F Temperature Source Oral Pulse Rate 76 100 Respiratory Rate 18 16 Blood Pressure 129/66 H 140/74 H Blood Pressure Mean 87 96 Pulse Ox 96 96 Oxygen Delivery Method Room Air Room Air 10/17/23 23:57 Temperature 98.0 F Temperature Source Temporal Pulse Rate 100 Respiratory Rate 16 Blood Pressure 140/74 H Blood Pressure Mean 96 Pulse Ox 94 Oxygen Delivery Method Room Air Weight Weight: 154 lb 12.232 oz Body Mass Index (BMI) 23.5 Physical Exam Const alert, oriented x3, no apparent distress and average body habitus Constitutional Narrative: Patient is elderly and appears chronically ill. General Appearance: cooperative HEENT normocephalic, head/scalp atraumatic, hearing grossly normal bilaterally and moist oral mucous membranes Eyes PERRL and EOMs intact bilaterally Neck no lymphadenopathy and supple Resp Resp Narrative: Decreased breath sounds throughout. Cardio regular rate and regular rhythm GI normal to inspection, nondistended, normoactive bowel sounds, soft to palpation, non-tender and non-distended Extremity normal to inspection and full ROM Skin Skin Narrative: Patient has no evidence of rash or jaundice at this time. Neuro oriented x3, CN's II-XII intact bilaterally, moves all extremities and no focal motor deficits Sensorium / Orientation: awake, alert, oriented to person, oriented to place and oriented to time Speech: speech normal Motor Exam: strength 5/5 throughout Psych affect normal Results Medical Records Data Attestation: I reviewed the patient's medical records Lab / Micro Data Attestation: I reviewed the patient's lab results. 10/17/23 21:00 10/17/23 21:00 Labs: Laboratory Results - last 24 hr 10/17/23 21:00: WBC 6.5, RBC 2.98 L, Hgb 10.0 L, Hct 31.7 L, MCV 106.4 H, MCH 33.6 H, MCHC 31.5 L, RDW Std Deviation 59.8 H, RDW Coeff of Vanesa 15.4 H, Plt Count 153, MPV 9.7, Immature Gran % (Auto) 0.300, Neut % (Auto) 73.2 H, Lymph % (Auto) 10.3 L, [place] % (Auto) 8.9, Eos % (Auto) 6.8 H, Baso % (Auto) 0.5, Absolute Neuts (auto) 4.8, Absolute Lymphs (auto) 0.67 L, Nucleated RBC % 0, PT 16.7 H, INR 1.4, APTT 37.7 H, Sodium 140, Potassium 4.5, Chloride 113 H, Carbon Dioxide 22.0, Anion Gap 5, BUN 52 H, Creatinine 2.12 H, Estim Creat Clear Calc 23.75, Est GFR (MDRD) Af Amer 38 L, Est GFR (MDRD) Non-Af 32 L, BUN/Creatinine Ratio 24.5 H, Glucose 130 H, Calcium 8.9, Total Bilirubin 1.00, AST 21, ALT 46, Alkaline Phosphatase 95, Troponin I High Sens 37, Total Protein 6.8, Albumin 3.6, Globulin 3.2, Albumin/Globulin Ratio 1.1 10/17/23 22:50: Lactic Acid 2.1 H* 10/17/23 23:35: Urine Color Yellow, Urine Clarity Clear, Urine pH 6.0, Ur Specific [place] 1.020, Urine Protein 30 H, Urine Glucose (UA) Normal, Urine Ketones Negative, Urine Occult Blood Negative, Urine Nitrite Negative, Urine Bilirubin Negative, Urine Urobilinogen Normal, Ur Leukocyte Esterase Negative Micro: Microbiology 10/17/23 22:35 Nasal Secretion SARS-CoV-2 & FLU Antigen (Rapid) - Final SARS-CoV-2 (COVID 19) Imagaing Radiology Impression Chest X-Ray 10/17/23 23:10 IMPRESSION: No radiographic evidence of acute cardiopulmonary disease. Cardiomegaly and pacer without florid edema. Electronically Signed: Vincent Cadet MD at 23:46 EST , Assessment & Plan Assessment/Plan (1) COVID: (2) Lactic acidosis: (3) Generalized weakness: PLAN: Plan 1. Assay positive for COVID-19 with fever of 102 ?F present on admission in the setting of recent admission in August 2023 for pneumonia - Admit to general medical floor under contact and droplet precautions. Start azithromycin with notable antiviral effectiveness and give as needed nebulizers. Give vitamin D 3, vitamin C and zinc to help boost immune response and speed recovery. Give Tylenol as needed pain or fever. 2. Mild lactic acidosis of 2.1 mmol/L present on admission likely arising from #1 - Patient has no evidence of sepsis at this time. Check second lactate after initial round of treatment and monitor for improvement. 3. Generalized weakness with ambulatory dysfunction and inability to lift himself off of toilet due to #1 & #2 - PT/OT and case management to consult and treat on rounds in the a.m. with patient likely in need of ECF for subacute rehabilitation with help appreciated in advance. 4. History of intracerebral hemorrhage; s/p craniotomy (2019) - Noted. 5. Essential hypertension - Continue home medications as previous plus give as needed IV hydralazine for systolic blood pressure greater than or equal to 160 mmHg. 6. Hyperlipidemia - Resume statin. 7. Paroxysmal atrial fibrillation; on apixaban - Continue apixaban and Coreg as previous. 8. Coronary artery disease; is post CABG x 3 (2014) - Noted. 9. History of ischemic cardiomyopathy - Stable. 10. History of chronic diastolic CHF: with preserved left ventricular ejection fraction - Stable with no evidence of volume overload at this time. 11. History of sick sinus syndrome; status post permanent pacemaker - Noted. 12. History of carotid artery disease - Stable. 13. Chronic anemia - Stable. 14. Chronic kidney disease stage III - His serum creatinine of 2.12 mg/dL present on admission is markedly improved compared to his recent previous visits which were > 3 mg/dL. 15. Chronic gout - Stable with no evidence of acute flare. 16. Osteoarthritis - Give Tylenol prn as outlined above. 17. DVT prophylaxis - Patient is already on apixaban for #7 which will be continued. Total time: Approximately 55 minutes. Charges/Coding Visit Charges Inpatient E&M: 29072 Init Hosp L2
[2023-10-18] MEDS: 0.9% Normal Saline (1000mL) 1,000 ML 75 ML IV ×2 (02:00→14:25)
[2023-10-18 02:58] LABS: Reflex Lactate? Y
[2023-10-18 04:21] LABS: Absolute Lymphocyte Count 0.41 X10^3/uL (0.83-4.51); Absolute Neutrophil Count 3.9 X10^3/uL (2.0-7.7); Basophil# 0.02 X10^3/uL; Basophil% 0.4 % (0-1); Eosinophil# 0.14 X10^3/uL; Eosinophils% 2.9 % (0-5); Hematocrit 28.3 % (40-54); Hemoglobin 9.2 g/dL (13.0-16.5); Lymphocyte # 0.41 X10^3/ul (0.83-4.51); Lymphocyte % 8.6 % (19-41); Mean Corp Hgb Conc 32.5 g/dL (32-36); Mean Corpuscular Hgb 34.5 pg (27.0-32.0); Monocyte# 0.32 X10^3/uL; Monocyte% 6.7 % (0-10); NRBC Flagged by Analyzer 0 % (0-5); Neutrophil # 3.87 X10^3/uL (2.7-7.7); POSITIVE DIFFERENTIAL YES; Platelet Count 124 K/mm3 (150-450); RBC Distribution Width CV 15.4 % (11.6-14.6); RBC Distribution Width SD 59.7 fl (35.1-43.9); Red Blood Count 2.67 M/mm3 (4.6-6.2); White Blood Count 4.8 K/mm3 (4.4-11.0)
[2023-10-18 05:45] LABS: Differential Indicated SCAN CRITERIA MET
[2023-10-18 05:51] LABS: Lactic Acid 0.8 mmol/L (0.4-1.9)
[2023-10-18 07:03] LABS: Differential Comment SCANNED; Schistocytes RARE
[2023-10-18 07:15] LABS: ALB/GLOB Ratio 1.1 RATIO (0.9-2.4); AST(SGOT) 56 U/L (15-37); Alanine Aminotransfer ALT/SGPT 70 U/L (16-61); Albumin, Serum 2.9 g/dL (3.2-5.0); Alkaline Phosphatase 109 U/L (45-117); Anion Gap 7 (5-15); BUN 51 mg/dL (7-18); BUN/Creat Ratio 26.7 RATIO (10-20); Chloride 115 mmol/L (98-107); Creatinine, Serum 1.91 mg/dL (0.70-1.30); EST Glomerular Filtration Rate 36 mL/min (>60); Est Glom Filt Rate - Afr Amer 43 mL/min (>60); Estimated Creatinine Clearance 26.36 ml/min; Globulin 2.6 g/dL (2.2-4.2); Glucose 123 mg/dL (74-106); Magnesium 1.7 mg/dL (1.6-2.6); Phosphorus 2.8 mg/dL (2.5-4.9); Protein, Total 5.5 g/dL (6.4-8.2); Sodium Level 141 mmol/L (136-145); Thyroid Stim Hormone (TSH) 1.27 uIU/mL (0.358-3.74)
--- NOTE | 2023-10-18 07:20 | PN.HOSP_ITS ---
Reason for Visit Reason for Visit: Diagnoses Acidosis, unspecified (10/18/23) Weakness (10/18/23) COVID-19 (10/18/23) Subjective Subjective Feels well. Feels ready to go home. Objective Data Objective Data Vital Signs: Vital Signs Temp Pulse Resp BP Pulse Ox O2 Del Method 36.9 C 94 16 121/64 H 96 Room Air 10/18/23 05:13 10/18/23 05:13 10/18/23 05:13 10/18/23 05:13 10/18/23 05:13 10/18/23 05:13 Oxygen Delivery Method Room Air Weight: 68.4 kg Body Mass Index (BMI) 22.8 Intake & Output: Intake and Output for Last 24 Hours 10/16/23 10/17/23 10/18/23 23:59 23:59 23:59 Intake Total 2200 / 2200 Balance 2200 / 2200 Lab / Micro Data 10/18/23 03:44 10/18/23 03:44 Labs: Laboratory Results - last 24 hr 10/17/23 21:00: WBC 6.5, RBC 2.98 L, Hgb 10.0 L, Hct 31.7 L, MCV 106.4 H, MCH 33.6 H, MCHC 31.5 L, RDW Std Deviation 59.8 H, RDW Coeff of Vanesa 15.4 H, Plt Count 153, MPV 9.7, Immature Gran % (Auto) 0.300, Neut % (Auto) 73.2 H, Lymph % (Auto) 10.3 L, Coles % (Auto) 8.9, Eos % (Auto) 6.8 H, Baso % (Auto) 0.5, Abso lute Neuts (auto) 4.8, Absolute Lymphs (auto) 0.67 L, Nucleated RBC % 0, PT 16.7 H, INR 1.4, APTT 37.7 H, Sodium 140, Potassium 4.5, Chloride 113 H, Carbon Dioxide 22.0, Anion Gap 5, BUN 52 H, Creatinine 2.12 H, Estim Creat Clear Calc 23.75, Est GFR (MDRD) Af Amer 38 L, Est GFR (MDRD) Non-Af 32 L, BUN/Creatinine Ratio 24.5 H, Glucose 130 H, Calcium 8.9, Total Bilirubin 1.00, AST 21, ALT 46, Alkaline Phosphatase 95, Troponin I High Sens 37, Total Protein 6.8, Albumin 3.6, Globulin 3.2, Albumin/Globulin Ratio 1.1 10/17/23 22:50: Lactic Acid 2.1 H* 10/17/23 23:35: Urine Color Yellow, Urine Clarity Clear, Urine pH 6.0, Ur Specific [place] 1.020, Urine Protein 30 H, Urine Glucose (UA) Normal, Urine Ketones Negative, Urine Occult Blood Negative, Urine Nitrite Negative, Urine Bilirubin Negative, Urine Urobilinogen Normal, Ur Leukocyte Esterase Negative, Urine RBC 0 SEEN, Urine WBC 0 SEEN, Ur Squamous Epith Cells 0 SEEN, Urine Bacteria 0 SEEN, Urine Mucus 0 SEEN 10/18/23 03:44: WBC 4.8, RBC 2.67 L, Hgb 9.2 L, Hct 28.3 L, MCV 106.0 H, MCH 34.5 H, MCHC 32.5, RDW Std Deviation 59.7 H, RDW Coeff of Vanesa 15.4 H, Plt Count 124 L, MPV 11.0, Immature Gran % (Auto) 0.400, Neut % (Auto) 81.0 H, Lymph % (Auto) 8.6 L, Coles % (Auto) 6.7, Eos % (Auto) 2.9, Baso % (Auto) 0.4, Absolute Neuts (auto) 3.9, Absolute Lymphs (auto) 0.41 L, Nucleated RBC % 0, Differential Comment SCANNED, Schistocytes RARE, Sodium 141, Potassium 4.0, Chloride 115 H, Carbon Dioxide 19.0 L, Anion Gap 7, BUN 51 H, Creatinine 1.91 H, Estim Creat Clear Calc 26.36, Est GFR (MDRD) Af Amer 43 L, Est GFR (MDRD) Non-Af 36 L, BUN/Creatinine Ratio 26.7 H, Glucose 123 H, Calcium 8.0 L, Phosphorus 2.8, Magnesium 1.7, Total Bilirubin 0.70, AST 56 H, ALT 70 H, Alkaline Phosphatase 10 9, Total Protein 5.5 L, Albumin 2.9 L, Globulin 2.6, Albumin/Globulin Ratio 1.1, TSH 1.27 10/18/23 03:50: Lactic Acid 0.8 Micro: Microbiology 10/17/23 22:35 Nasal Secretion SARS-CoV-2 & FLU Antigen (Rapid) - Final SARS-CoV-2 (COVID 19) Radiography Diagnostic Testing: Radiology Impression Chest X-Ray 10/17/23 23:10 IMPRESSION: No radiographic evidence of acute cardiopulmonary disease. Cardiomegaly and pacer without florid edema. Electronically Signed: Vincent Cadet MD at 23:46 EST , Physical Exam Const alert Constitutional Narrative: no respiratory distress. no conversational dyspnea. Resp normal respiratory effort, no retractions, no use of accessory muscles and clear to auscultation bilaterally Cardio regular rate, regular rhythm, S1 normal heart sound and S2 normal heart sound GI normal to inspection, nondistended, normoactive bowel sounds Neuro Sensorium / Orientation: awake and alert Assessment & Plan Assessment/Plan (1) COVID: PLAN: Plan COVID 19 * acute infection. Onset * On room air. Does not need treatment with remdesivir nor dexamethasone. * DC azithromycin Debility * given advanced age, multiple medical comorbidities and COVID 19. * PT OT eval and treat. Patient worked with therapy today and only walked 5 feet. Patient had slow shuffling gait * Pt too weak to return home safely at this time. Chronic conditions: * CAD: continue carvedilol * CHF: compensated. continue with torsemide. * GERD * pAfib: anticoagulated w apixaban. * CKD IIIb: stable * hyperuricemia: no acute gout flare. continue allopurinol * HLP: continue statin VTE prophylaxis: not indicated as he is already on apixaban. Charges/Coding Visit Charges Inpatient E&M: 93378 Subs Hosp L2
[2023-10-18] MEDS: Cholecalciferol (VIT D3) 25 MCG TABLET (1,000 UNITS) 50 MCG PO (09:39)
[2023-10-18] MEDS: Sodium Bicarbonate 650 MG Tablet PO (09:40)
[2023-10-18] MEDS: Carvedilol 25 MG Tablet PO ×2 (09:40→18:20)
[2023-10-18] MEDS: Furosemide 40 MG Tablet PO (09:40)
[2023-10-18] MEDS: APIXABAN 2.5 MG TABLET (WCH) PO ×2 (09:40→22:21)
[2023-10-18] MEDS: Potassium Chloride Oral Tablet 20 MEQ PO (09:40)
[2023-10-18] MEDS: Allopurinol 100 MG Tablet PO ×2 (09:40→18:20)
[2023-10-18] MEDS: Ascorbic Acid 500 MG Tablet PO (09:40)
[2023-10-18] MEDS: Cyanocobalamin 500 MCG Tablet 1000 MCG PO (09:40)
[2023-10-18] MEDS: Pyridoxine HCl 100 MG Tablet PO (09:40)
[2023-10-18] MEDS: Zinc Sulfate 50 mg zinc (220 mg) ORAL capsule PO (14:25)
[2023-10-18] MEDS: 0.9% Saline Lock 10 ML Syringe IV (22:15)
[2023-10-18] MEDS: Atorvastatin Calcium 40 MG Tablet PO (22:21)
[2023-10-19 03:22] VITALS: BP 126/66; PULSE 76; RESP 18; TEMP 37.6; O2SAT 96
[2023-10-19] MEDS: 0.9% Normal Saline (1000mL) 1,000 ML 75 ML IV (03:25)
[2023-10-19] MEDS: Menthol/Lanolin/Calamine/Znox 113 GM Tube 1 APPLIC TOPICAL ×2 (03:25→09:33)
[2023-10-19] MEDS: 0.9% Saline Lock 10 ML Syringe IV (03:29)
[2023-10-19 06:00] VITALS: BMI 22.9
--- NOTE | 2023-10-19 07:27 | PN.HOSP_ITS ---
Reason for Visit Reason for Visit: Diagnoses Acidosis, unspecified (10/18/23) Weakness (10/18/23) COVID-19 (10/18/23) Subjective Subjective Feeling better. Able to go to the restroom with using a walker. Patient did work with therapy today and was able to walk 270 feet with a front wheeled walker Objective Data Objective Data Vital Signs: Vital Signs Temp Pulse Resp BP Pulse Ox O2 Del Method 37.6 C H 76 18 126/66 H 96 Room Air 10/19/23 03:22 10/19/23 03:22 10/19/23 03:22 10/19/23 03:22 10/19/23 03:22 10/19/23 06:55 Oxygen Delivery Method Room Air Weight: 68.7 kg Body Mass Index (BMI) 22.9 Intake & Output: Intake and Output for Last 24 Hours 10/17/23 10/18/23 10/19/23 23:59 23:59 23:59 Intake Total 3631.25 / 3631.25 1175 / 1175 Output Total 1550 / 1550 300 / 300 Balance 2081.25 / 2081.25 875 / 875 Lab / Micro Data 10/18/23 03:44 10/18/23 03:44 Micro: Microbiology 10/17/23 22:35 Nasal Secretion SARS-CoV-2 & FLU Antigen (Rapid) - Final SARS-CoV-2 (COVID 19) Physical Exam Const alert and no apparent distress Constitutional Narrative: Up in chair. Nontoxic. No respiratory distress. Conversational dyspnea. Appears pretty good today. Neuro Sensorium / Orientation: awake and alert Assessment & Plan Assessment/Plan (1) COVID: PLAN: Plan COVID 19 * acute infection. Onset likely October 17. Patient will need to quarantine from the through and then wear a mask from through October 27. * On room air. Does not need treatment with remdesivir nor dexamethasone. * DC azithromycin Debility * Improved given advanced age, multiple medical comorbidities and COVID 19. * PT OT eval and treat. Initially patient worked with therapy today and only walked 5 feet but subsequently walked 0 feet so [place] doing better. Patient will not require intermediate facility at this time. Will plan for home health care.. Chronic conditions: * CAD: continue carvedilol * CHF: compensated. continue with torsemide. * GERD * pAfib: anticoagulated w apixaban. * CKD IIIb: stable * hyperuricemia: no acute gout flare. continue allopurinol * HLP: continue statin VTE prophylaxis: not indicated as he is already on apixaban. Disposition: Home with home health care.
[2023-10-19 09:20] VITALS: BP 123/63; PULSE 89; RESP 18; TEMP 37.3; O2SAT 96
[2023-10-19] MEDS: Cholecalciferol (VIT D3) 25 MCG TABLET (1,000 UNITS) 50 MCG PO (09:22)
[2023-10-19] MEDS: Allopurinol 100 MG Tablet PO (09:22)
[2023-10-19] MEDS: Carvedilol 25 MG Tablet PO (09:22)
[2023-10-19] MEDS: Cyanocobalamin 500 MCG Tablet 1000 MCG PO (09:22)
[2023-10-19] MEDS: APIXABAN 2.5 MG TABLET (WCH) PO (09:23)
[2023-10-19] MEDS: Zinc Sulfate 50 mg zinc (220 mg) ORAL capsule PO (09:23)
[2023-10-19] MEDS: Ascorbic Acid 500 MG Tablet PO (09:23)
[2023-10-19] MEDS: Sodium Bicarbonate 650 MG Tablet PO (09:29)
[2023-10-19] MEDS: Pyridoxine HCl 100 MG Tablet PO (09:32)
--- NOTE | 2023-10-19 12:34 | DS.PCM_ITS ---
Providers Date of Admission: 10/18/23 Primary Care Physician: Cheli Grace MD Reason For Visit: COVID 19 POSITIVE, MILD LACTIC ACIDOSIS & GENERALI Diagnosis Discharge Diagnosis (1) COVID: Status: Acute Code(s): U07.1 - COVID-19 Plan Presents with weakness. He had COVID-19 but was stable and not requiring oxygen. Given his advanced age it made him weaker. Patient was evaluated and did not do well with therapy and was only able to walk a short distance but the next day, the , patient was able to walk 270 feet with front wheeled walker. Patient will be discharged home in stable condition. COVID 19 * acute infection. Onset likely October 17. Patient will need to quarantine from the through and then wear a mask from through October 27. * On room air. Does not need treatment with remdesivir nor dexamethasone. * DC azithromycin Debility * Improved given advanced age, multiple medical comorbidities and COVID 19. * PT OT eval and treat. Initially patient worked with therapy today and only walked 5 feet but subsequently walked 270 feet so clearly doing better. Patient will not require half-way facility at this time. Will plan for home health care.. Chronic conditions: * CAD: continue carvedilol * CHF: compensated. continue with torsemide. * GERD * pAfib: anticoagulated w apixaban. * CKD IIIb: stable * hyperuricemia: no acute gout flare. continue allopurinol * HLP: continue statin VTE prophylaxis: not indicated as he is already on apixaban. Disposition: Home with home health care. Medications at Discharge Home Medications allopurinol 100 mg tablet 100 mg PO BID Gout 11/24/18 atorvastatin 40 mg tablet 40 mg PO QHS Cholesterol 11/24/18 pyridoxine (vitamin B6) 100 mg tablet 100 mg PO DAILY supplement 11/24/18 albuterol sulfate 90 mcg/actuation aerosol inhaler 2 puff inhalation Q4H PRN shortness of breath or wheezing #8.5 grams 12/25/20 ascorbate calcium (vitamin C) 500 mg tablet 500 mg PO DAILY supplement 12/25/20 mecobalamin (vitamin B12) 1,000 mcg disintegrating tablet,sublingual 1,000 mcg sublingual DAILY supplement 12/25/20 cholecalciferol (vitamin D3) 50 mcg (2,000 unit) tablet 50 mcg PO DAILY #1 TAB 03/09/22 coenzyme Q10 100 mg tablet 100 mg PO DAILY 09/24/22 torsemide 20 mg tablet 20 mg PO .COMPLEX edema 11/19/22 carvedilol 12.5 mg tablet 25 mg (2 x 12.5 mg) PO BID HTN #180 tabs 06/30/23 potassium chloride 20 mEq tablet,extended release 20 meq PO DAILY Hypokalemia 06/30/23 sodium bicarbonate 325 mg tablet 650 mg PO DAILY 06/30/23 nitroglycerin 0.4 mg sublingual tablet 0.4 mg sublingual Q5M PRN Cardiac/Chest Pain #30 tabs 09/02/23 apixaban 2.5 mg tablet 2.5 mg PO BID Blood thinner #180 tabs 09/30/23 Hospital Course Operations None Procedures None Summary of Care Provided Minutes Spent on Discharge: 31 Weight / BMI Weight Weight: 68.7 kg Body Mass Index (BMI) 22.9 ABG / Lab / Microbiology Data 10/18/23 03:44 10/18/23 03:44 Microbiology: Microbiology 10/17/23 23:35 Urine, Clean Catch Urine Culture - Preliminary Culture exhibits no growth. 10/17/23 22:35 Nasal Secretion SARS-CoV-2 & FLU Antigen (Rapid) - Final SARS-CoV-2 (COVID 19) D/C Instructions Discharge Diet: No restrictions Discharge Activity: Use Walker Meaningful Use Info Meaningful Use Diagnoses (Choose all that apply): None applicable Discharge Plan Admission Admit Date/Time: 10/18/23 01:06 Primary Reason for Your Visit: Weakness secondary to COVID-19 Attending Provider: Gómez Nowak Primary Care Provider: Cheli Grace Consulting Providers: Mitch Scott Instructions Additional Instructions / Restrictions: You presented with weakness likely due to nohemi COVID-19. You are pretty weak when you arrived but actually did much better thereafter. Therapy is recommending front wheeled walker and additional therapy services. Will look to getting home health care for you. For your COVID-19, recommending quarantining through the and then wearing a mask from the through October 27 when you are around others. Discharge Orders/Prescriptions Prescriptions: Continued mecobalamin (vitamin B12) 1,000 mcg tablet,disintegrating 1,000 mcg SUBLINGUAL DAILY Rx Instructions: place tablet under tongue and allow to dissolve for at least30 secs before swallowing ascorbate calcium (vitamin C) 500 mg tablet 500 mg PO DAILY albuterol sulfate 90 mcg/actuation HFA aerosol inhaler 2 puff INHALATION Q4H PRN (Reason: shortness of breath or wheezing) Qty: 8.5 6RF Rx Instructions: administer with spacer coenzyme Q10 100 mg tablet 100 mg PO DAILY potassium chloride 20 mEq tablet extended release 20 meq PO DAILY Rx Instructions: MWF carvedilol 12.5 mg tablet 25 mg PO BID Qty: 180 3RF atorvastatin 40 MG tablet 40 mg PO QHS allopurinol 100 MG tablet 100 mg PO BID pyridoxine (vitamin B6) 100 MG tablet 100 mg PO DAILY cholecalciferol (vitamin D3) 50 mcg (2,000 unit) tablet 50 mcg PO DAILY Qty: 1 0RF torsemide 20 mg tablet 20 mg PO .COMPLEX Rx Instructions: 20 mg orally Mon, Weds, Fri; sodium bicarbonate 325 mg tablet 650 mg PO DAILY nitroglycerin 0.4 mg tablet, sublingual 0.4 mg sublingual Q5M PRN (Reason: Cardiac/Chest Pain) Qty: 30 2RF apixaban 2.5 mg tablet 2.5 mg PO BID Qty: 180 4RF Referrals / Follow Up: Cheli Grace MD [Primary Care Provider] - Within 2 Weeks Disposition Disposition (needs filled in before D/C Order can be placed): Home Health Service Charges/Coding Visit Charges Inpatient E&M: 87023 Disch Hosp >30min
--- NOTE | 2023-10-19 14:00 | CASEMGMT ---
RN CM Readmission Note Previous Admission: 09/19/23-09/22/23 Diagnosis: bilat pna, acute exac asthma DC Disposition: Home with [facility] Current Admission: Admitted 10/18/23 Current Diagnosis: covid 19 positive, mild lactic acidosis Pt dc'd from index admission with [facility]. They have seen pt and have since dc'd pt. Pt did not qualify for any home oxygen at last admission. Pt reports he did obtain his rx and took according to orders. Pt manages his meds. Pt has had a PCP follow up appt since last hospitalization. Pt reports that he feels well today. Noted he ambulated 270 feet. Pt is denying any need for [facility] services at this time again. He states he is in the process of getting a FWW through [employer] but is having issues with it. Pt did not qualify for home oxygen this hospital stay. Pt reports he has a pox at home. TC to pt to find out issues with FWW, no answer. TC to [facility] and spoke with Antonina who states pt does not have a qualifying dx. Rx for FWW sent to hospitalist for signature. Green sheet on chart for FWW rx to give to pt once signed prior to dc, pt has dc order in. DC Plan: Home with FWW rx
[2023-10-19 14:03] VITALS: BP 111/44; PULSE 88; RESP 18; TEMP 37.2; O2SAT 98
[2023-10-19 14:10] VITALS: O2SAT 94; O2SAT 96
[2023-10-19 17:00] VITALS: RESP 18
[2023-10-19 18:39] VITALS: BP 111/44; PULSE 88; RESP 18; TEMP 37.2; O2SAT 98
--- NOTE | 2023-10-20 13:24 | CASEMGMT ---
Addendum entered by Johanna Santiago 10/20/23 15:54: Received confirmation from abattoir supervisor Liliana that [facility] will see pt this evening to take out iv's and start care. TC to [facility], spoke with Antonina, she states she received the FWW rx and she is awaiting approval. Requested her to call this RN CM when it is ready for pt son to pecan picker. TC to pt Deirdre, she is aware that HHC will be out this evening and also updated her on the FWW that we are waiting for approval. She is aware that this RN CM will call her when it is ready. She is also aware to disregard the electronic list of [employer] sent to her dtr as [facility] will see pt jill. She is thankful for the call and denies any further needs. Original Note: RN CM received a message from paralegal secretary to call pt Deirdre. States pt iv was left in upon dc yesterday. Spoke with charge nurse who asks if HH can remove them. TC to Deirdre, she was upset stating that the patient was sent home with IV's in both arms and that she was not called at all regarding pt coming home until it was time to pick him up. Discussed with her that this RN CM attempted to reach her regarding the walker and dc plan. She is aware that the pt chose to not have HHC again. She states he needs home health. Discussed that the pt declined HH yesterday as he had a good therapy session and if he changed his mind once home, he could call his PCP. She is aware that this RN CM would be happy to set up HHC. She states they want the same agency as prior. Made aware that currently they do not have staffing until mid next week but this RN CM would confirm to see if they could come sooner to take out the iv's as well. Offered a list of other agencies if [facility] was unable to see pt. became upset and states she will just take care of him herself. She then stated her dtr Henna who lives out of state had been listening to the conversation and she would like to talk. Henna states that pt could not wait for a week for HHC. She is aware that is why other options could be provided it pt and agreeable. She is aware these could be given verbally over the phone or electronically. She asks to send to her electronically to [phone]. Pt reports she did not have the F[place] rx either from [place]. She is aware that this RN CM can fax to [facility], she states her son can pick it up. Faxed to [facility] at this time. Pt and dtr aware that RN CM will be in touch with them regarding the above. TC to [facility], spoke with Hussain, she states they would not be able to accept pt back until at least Wednesday of next week. She also states there could not be an exception to take the IV's out after explanation of the situation. Charge nurse aware.
--- NOTE | 2023-10-20 13:33 | CASEMGMT ---
A list of [facility] providers including quality and resource use data and consistent with the patient?s preferred geographic region, medical needs, and insurance network were provided via the [employer] Guide Link to Henna (pt Daughter) at [phone].
--- NOTE | 2023-10-22 17:56 | CASEMGMT ---
RN CM Follow-up: This RN CM called [facility] to follow-up on walker. Return call received from Antonina who states pt is 72 days too early to qualify for [facility] coverage for a walker. States pt must have used his MCR benefit for a walker or cane or similar DME a little less than 5 years ago and does not qualify at this time for coverage of a new walker. This RN CM called pt and pt's answered the phone. Informed pt's of response from Antonina at [facility]. Pt's states they have never used their MCR benefit to obtain any device and states they purchased a cane out of pocket previously and have used walkers and canes handed down from family members for the past 5+ years. Pt's states HH is scheduled to come out next week for continued therapy and states they will make do with what we have. States they have a walker but it is a little too short for the pt. Pt's declines further assistance to obtain a new walker. Encouraged her to discuss options with therapists when they visit next week. Pt's agreeable but continues to state they will make do with what they have and that they do not have the money to purchase a new walker. Will notify HH for options for further assistance. Robert Richards RN ACM
== END 2023-10-19 20:05 | disposition home health service (06) | DRG 178 ==
LOC: ED 10-18 00:01 → MS3 10-18 01:11
PROVIDERS: Admitting Provider Internal Medicine; Emergency Provider Emergency Medicine; PCP Family Medicine
DX: U07.1 COVID-19 (principal); I13.0 Hypertensive heart and chronic kidney disease with heart failure and stage 1 through stage 4 chronic kidney disease, or unspecified chronic kidney disease; E87.20 Acidosis, unspecified; I50.32 Chronic diastolic (congestive) heart failure; E87.8 Other disorders of electrolyte and fluid balance, not elsewhere classified; N18.32 Chronic kidney disease, stage 3b; I48.0 Paroxysmal atrial fibrillation; D64.9 Anemia, unspecified; I25.10 Atherosclerotic heart disease of native coronary artery without angina pectoris; E78.5 Hyperlipidemia, unspecified; M19.90 Unspecified osteoarthritis, unspecified site; N25.89 Other disorders resulting from impaired renal tubular function; Z86.16 Personal history of COVID-19; Z79.01 Long term (current) use of anticoagulants; I49.3 Ventricular premature depolarization; Z95.0 Presence of cardiac pacemaker
CPT/HCPCS: 71045; 80053; 81001; 83605; 83735; 84100; 84443; 84484; 85025; 85610; 85730; 87040; 87086; 87428; 93005; 94668; 97162; 97166; 97530; 97802; 99285; J7030; J7050; A4216

== ENCOUNTER → 2023-11-10 | Outpatient (CLI) | payer MEDICARE, OTHER, SELFPAY ==
--- NOTE | 2023-11-10 13:48 | ECHOD_ITS ---
Reason For Study: Ischemic CM Procedure This was a 2D Doppler, Color Flow transthoracic echocardiogram. Exam performed in department. Left Ventricle Normal LV size. The estimated ejection fraction is 20 %. There is severe global hypokinesis of the left ventricle. Right Ventricle Normal RV size. ICD or pacer leads identified within the right ventricle. Normal systolic function. Atria The left atrium is mildly enlarged. The right atrium is mildly enlarged. Mitral Valve Bileaflet diffuse mitral valve thickening. Mild-Moderate (1-2+) eccentric mitral valve insufficiency. Tricuspid Valve Normal tricuspid valve. Moderate (2+) tricuspid valve insufficiency. Pulmonary artery systolic pressure is 60 mmHg. Moderate pulmonary hypertension. Aortic Valve Trisinus/trileaflet aortic valve. Moderate diffuse aortic valve thickening. Great Vessels Normal aortic root. The pulmonary artery is normal size. Normal inferior vena cava. Pericardium/Pleural No pericardial effusion. MMode/2D Measurements & Calculations LVIDd: 5.1 cm IVSd: 1.1 cm Ao root diam: 3.2 cm LVIDs: 4.6 cm LVPWd: 1.1 cm RVDd: 4.4 cm FS: 11.4 % LAV(MOD-bp): 70.5 ml LVAd ap4: 36.5 cm2 LVAd ap2: 45.3 cm2 LAV(MOD-bp) Indexed: 38.6 ml/m2 LVLd ap4: 9.0 cm LVLd ap2: 8.9 cm LAV(MOD-sp2): 83.3 ml EDV(MOD-sp4): 119.7 ml EDV(MOD-sp2): 192.4 ml LAV(MOD-sp4): 59.9 ml EDV(sp4-el): 125.9 ml EDV(sp2-el): 196.2 ml LVAs ap4: 32.6 cm2 LVAs ap2: 38.4 cm2 LVLs ap4: 8.9 cm LVLs ap2: 8.4 cm ESV(MOD-sp4): 97.8 ml ESV(MOD-sp2): 143.7 ml ESV(sp4-el): 101.5 ml ESV(sp2-el): 148.6 ml EF(MOD-sp4): 18.3 % EF(MOD-sp2): 25.3 % EF(sp4-el): 19.3 % SV(MOD-sp4): 21.9 ml SV(MOD-sp2): 48.7 ml SV(sp4-el): 24.3 ml LA dimension(2D): 5.0 cm LA A4 area: 20.9 cm2 RA A4 area: 22.5 cm2 TAPSE: 1.1 cm Doppler Measurements & Calculations MV E max artie: 65.6 cm/sec Lat Peak E' Artie: 4.7 cm/sec Med Peak E' [place]rie: 4.4 cm/sec MV A max artie: 31.3 cm/sec E/E' lat: 14.1 E/E' med: 15.0 MV E/A: 2.1 Ao V2 max: 114.2 cm/sec LV V1 max: 90.4 cm/sec PA V2 max: 73.5 cm/sec Ao max P.2 mmHg LV V1 max P.3 mmHg Ao V2 mean: 76.3 cm/sec LV V1 mean P.4 mmHg Ao mean P.6 mmHg LV V1 mean: 55.1 cm/sec Ao V2 VTI: 23.8 cm LV V1 VTI: 15.9 cm AV (velocity ratio): 0.67 PI end-d artie: 157.2 cm/sec TR max artie: 374.4 cm/sec TR max P.1 mmHg ECHO/Echo Complete Interpretation Summary Normal LV size. The estimated ejection fraction is 20 %. Pulmonary artery systolic pressure is 60 mmHg. Moderate pulmonary hypertension. Compared to previous study, the left ventricular systolic function is the same. . Ordering Physician: Monik Gilbert Referring Physician: Cheli Grace Performed By: Clare Martin RDCS, RVT
== END | disposition home or self-care (01) ==
LOC: CVS 13:46
PROVIDERS: PCP Family Medicine; Referring Provider Nurse Practitioner Gerontology; Visit Provider Nurse Practitioner Gerontology
DX: I25.5 Ischemic cardiomyopathy (principal)
CPT/HCPCS: 93306

== ENCOUNTER 2023-11-17 08:27 | Emergency (ER) | payer MEDICARE, OTHER, SELFPAY ==
[2023-11-17 08:28] VITALS: BP 150/75; PULSE 92; RESP 14; TEMP 36.2; O2SAT 95
--- NOTE | 2023-11-17 08:43 | CT_ITS ---
EXAM: CT ABDOMEN AND PELVIS WITHOUT INTRAVENOUS CONTRAST CLINICAL INDICATION: Left lower quadrant abdominal pain with guarding TECHNIQUE: Helically acquired images were obtained of the abdomen and pelvis without intravenous contrast. This CT exam was performed using one or more of the following dose reduction techniques: automated exposure control, adjustment of the mA and/or kV according to patient size, and/or use of iterative reconstruction technique. RADIATION DOSE: CTDIvol = 8.25 mGy, DLP = 451.56 mGy-cm COMPARISON: No relevant prior studies available. FINDINGS: LOWER THORAX: Moderate right posterior pleural fluid and minimal left posterior pleural fluid. Subsegmental atelectases in the right lower lobe. Cardiomegaly. Dual-chamber pacing lead tips in the right atrium and right ventricle. Intact sternal wires from CABG procedure. No significant pericardial effusion. ABDOMEN: LIVER: Unremarkable. Homogeneous. GALLBLADDER AND BILE DUCTS: Moderate amount of pericholecystic fluid versus gallbladder wall edema. No intra- or extrahepatic biliary ductal dilation. PANCREAS: Unremarkable. No focal cystic mass. SPLEEN: Unremarkable. Normal size without focal cystic or solid mass. ADRENALS: Unremarkable. No nodules. KIDNEYS AND URETERS: 2.6 cm left renal parenchymal cyst with CT number 5.43 Hounsfield units. Right posterior renal parenchymal atrophy. No stones or hydronephrosis in both kidneys. Prominent right extrarenal pelvis. STOMACH AND BOWEL: Small diverticula in the sigmoid colon without diverticulitis. No stomach or bowel distention. PELVIS: APPENDIX: Normal appendix. BLADDER: Unremarkable. REPRODUCTIVE: Unremarkable as visualized. No mass. ABDOMEN and PELVIS: INTRAPERITONEAL SPACE: Mild ascites in the abdomen and pelvis. No free air. BONES/JOINTS: Pronounced degenerative disc space height narrowing at L3-L4 and L4-L5 disc space levels. No suspicious lytic or blastic abnormality. SOFT TISSUES: Unremarkable. No discrete abdominal or pelvic wall hernia. VASCULATURE: Heavy calcified plaques along the abdominal aorta and iliac arteries. Abdominal aorta is non-dilated. LYMPH NODES: Unremarkable. No enlarged lymph nodes. CT/Abdomen/Pelvis without Cont IMPRESSION: 1. Moderate amount of gallbladder wall edema versus pericholecystic fluid. Gallbladder ultrasound will be helpful. 2. Sigmoid diverticulosis without diverticulitis. 3. 2.6 cm left renal parenchymal cyst is simple cyst. No follow-up is necessary. 4. 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 5. Mild ascites in the abdomen and pelvis. 6. Moderate right posterior pleural effusion and minimal left posterior pleural effusion. Electronically Signed: Jadon Smith MD at 10:59 EST ,
--- NOTE | 2023-11-17 08:45 | ED.VIS.GI ---
HPI HPI - GI History of Present Illness Chief Complaint: Flank Pain Detail of Chief Complaint: Bilateral low back pain and abdominal pain Informant: patient and spouse/S.O. Abdominal Pain/Flank Pain Onset: Hours (Onset approximately midnight) Context: Sudden Onset Timing: Continuous Quality: - (Pain) Location: Diffuse and - (Also complains of bilateral low back pain) Current Severity: Mild Maximum Severity: Severe Worsened by: Movement Relieved by: Nothing Nausea/Vomiting/Emesis GI Symptom: Positive for Nausea; Negative for Vomiting Onset: Hours Severity: Mild Episodes: 1 Diarrhea/Melena/Hematochezia GI Symptom: Positive for Diarrhea Onset: Hours Stool Quality: Positive for Loose and Mucous Episodes: 1 Associated Symptoms Associated Symptoms: Negative for Dysuria, Frequency, Hematuria or Urgency Narrative Narrative: Patient is a 88-year-old male with history of sick sinus syndrome, hyperlipidemia, acid reflux, paroxysmal atrial fibrillation who presents because of bilateral low back pain that started last night approximately midnight. Movement seems to make it worse. Nothing makes it better. He also complains of diffuse abdominal pain. He denied distention. He does report nausea. He states he had 1 loose mucus-like stool 0300. He states his stool is dark because he is on iron. It was not black or sticky. He does report decreased urine output. He denies dysuria or hematuria. There is no history of trauma. He denies history of diverticulosis or diverticulitis. He does have chronic kidney disease. Prior similar symptoms: No Recent Illness/Hospitalization: No PFSH PFSH Medical History Acute electrocardiogram changes Atherosclerosis of [place] coronary artery of [place] heart without angina pectoris Brain bleed Carotid artery disease Chest pain Chronic kidney disease (CKD) Chronic kidney disease (CKD) Congestive heart failure COVID-19 GERD (gastroesophageal reflux disease) Hypoxemia Ischemic cardiomyopathy Kidney disease, chronic, stage III (GFR 30-59 ml/min) Paroxysmal atrial fibrillation Pneumonia of both lower lobes Home Medications allopurinol 100 mg tablet 100 mg PO BID Gout 11/24/18 [History Last Taken 11/17/23] atorvastatin 40 mg tablet 40 mg PO QHS Cholesterol 11/24/18 [History Last Taken 05/06/22] pyridoxine (vitamin B6) 100 mg tablet 100 mg PO DAILY supplement 11/24/18 [History Last Taken 11/17/23] albuterol sulfate 90 mcg/actuation aerosol inhaler 2 puff inhalation Q4H PRN shortness of breath or wheezing #8.5 grams 12/25/20 [Rx Last Taken Unknown] ascorbate calcium (vitamin C) 500 mg tablet 500 mg PO DAILY supplement 12/25/20 [History Last Taken 11/17/23] mecobalamin (vitamin B12) 1,000 mcg disintegrating tablet,sublingual 1,000 mcg sublingual DAILY supplement 12/25/20 [History Last Taken 11/16/23] cholecalciferol (vitamin D3) 50 mcg (2,000 unit) tablet 50 mcg PO DAILY #1 TAB 03/09/22 [Rx Last Taken 11/17/23] coenzyme Q10 100 mg tablet 100 mg PO DAILY 09/24/22 [History Last Taken 11/16/23] torsemide 20 mg tablet 20 mg PO MOWEFR edema 11/19/22 [History Last Taken 11/17/23] potassium chloride 20 mEq tablet,extended release 20 meq PO MOWEFR Hypokalemia 06/30/23 [History Last Taken 11/17/23] nitroglycerin 0.4 mg sublingual tablet 0.4 mg sublingual Q5M PRN Cardiac/Chest Pain #30 tabs 09/02/23 [Rx Last Taken Unknown] apixaban 2.5 mg tablet 2.5 mg PO BID Blood thinner #180 tabs 09/30/23 [Rx Last Taken 11/17/23] Lactobacillus acidophilus 1 cap PO SUTUTHSA PROBIOTIC 11/17/23 [History Last Taken 11/16/23] carvedilol 25 mg tablet 25 mg PO BID blood pressure 11/17/23 [History Last Taken 11/17/23] magnesium oxide 400 mg (241.3 mg magnesium) tablet 400 mg PO DAILY SUPPLEMENT 11/17/23 [History Last Taken 11/17/23] sacubitril 49 mg-valsartan 51 mg tablet (Entresto) 1 tab PO BID BLOOD PRESSURE 11/17/23 [History Last Taken 11/17/23] sodium bicarbonate 650 mg tablet 650 mg PO DAILY SUPPLEMENT 11/17/23 [History Last Taken 11/17/23] Allergy/AdvReac Type Severity Reaction Status Date / Time No Known Allergies Allergy Verified 11/17/23 08:29 Family History Father CAD (coronary artery disease) Surgical History History of brain surgery History of coronary artery bypass graft x 3 History of craniotomy History of permanent cardiac pacemaker placement Social History (Updated 11/17/23 @ 08:[address] Guillermo Negrete MD) household members: spouse Smoking Status: Never smoker alcohol intake: never substance use type: does not use caffeine: No ROS ROS ED Constitutional Constitutional ED: Reports chills; Denies fever(s) or subjective ENT ENT ED: Denies ear pain, rhinorrhea or sore throat Cardiovascular Cardiovascular: Denies chest pain, orthopnea or palpitations Respiratory/Chest Respiratory/Chest: Denies cough, dyspnea, dyspnea on exertion or orthopnea Gastrointestinal Gastrointestinal: Reports abdominal pain, diarrhea and nausea; Denies constipation, melena or vomiting Genitourinary Genitourinary ED: Denies dysuria, hematuria or urinary frequency Musculoskeletal Musculoskeletal: Reports back pain; Denies arthralgias, myalgias or neck pain Integumentary Denies rash Neurologic Neurologic: Reports weakness Hematologic/Lymphatic Hematologic/Lymphatic: Denies easy bleeding or easy bruising EXAM Physical Exam Const Vital Signs: 11/17/23 08:28 Temperature 97.1 F L Temperature Source Temporal Pulse Rate 92 Respiratory Rate 14 Blood Pressure 150/75 H Blood Pressure Mean 100 Pulse Ox 95 Oxygen Delivery Method Room Air Positive well nourished and well developed Constitutional Narrative: Patient does not appear well. He appears pale. General Appearance ED: well developed, NAD and pallor HEENT Reports moist mucous membranes HEENT Narrative: Ears are normal. Nares are patent. Posterior pharynx without erythema or exudate. normocephalic and atraumatic Eyes PERRL and EOMs intact bilaterally General Eye ED: Yes pale conjunctiva; Negative for scleral icterus Neck no lymphadenopathy, supple and no JVD Resp normal respiratory effort and clear to auscultation bilaterally Cardio regular rate, regular rhythm, S1 normal heart sound, S2 normal heart sound and no murmurs GI non-distended and no masses; Negative for non-tender GI Narrative: There is no palpable pulsatile mass. There is no abdominal bruit. There is no evidence of umbilical hernia. Auscultation: hypoactive bowel sounds Palpation: soft, tender LLQ, RLQ and LUQ, guarding and rebound tenderness present other (Left lower quadrant region.); Negative for rigid, hepatomegaly, splenomegaly, hernia, mass or pulsatile mass Narrative: There is no inguinal lymphadenopathy or mass. Back/Spine no CVA tenderness Extremity full ROM General Extremety ED: Negative for edema or tenderness General Extremity: Negative for edema Neuro CN's II-XII intact bilaterally, moves all extremities and no sensory deficits noted Sensorium / Orientation: alert Psych mental status grossly normal and thought process normal Skin no wounds General Skin Exam: pallor; Negative for jaundice MDM MDM MDM Narrative Medical decision making narrative: Patient with significant left lower quadrant pain this may represent diverticulosis or diverticulitis. He does have a remote history of colitis per old records. This may also represent pneumoperitoneum malignancy. This could represent infectious etiology. Back pain is mechanical. Doubt it is related to his abdominal findings. To evaluate his guarding and peritoneal findings left lower quadrant CT of the abdomen with IV contrast was ordered to evaluate for diverticulitis, pneumoperitoneum versus colitis. Will wait for BUN/creatinine since she has had elevated BUN/creatinine in the past. CBC was obtained assess white count as well as differential. Clinically patient appears pale. If his BUN/creatinine ratio is elevated even though he denies black stool will perform rectal to determine if he has a GI bleed. History & Record Review Additional record(s) reviewed:: Prior ED visit and Prior labs Lab Data Attestation: I reviewed the patient's lab results. Lab results narrative: White count is normal. There is slight increase in neutrophils. H&H is 9.6 and 29.4 which is patient's baseline. MCV is elevated 103.5 which is patient's baseline. BUN/creatinine are elevated from baseline at 37 and 2.28. Estimated GFR is 29. BUN and creatinine ratio is less than 20-1. Glucose is elevated 138 with a normal CO2 anion gap. Potassium is 3.0. Labs: Laboratory Results - last 24 hr 11/17/23 11/17/23 08:48 09:00 WBC 5.4 RBC 2.84 L Hgb 9.6 L Hct 29.4 L MCV 103.5 H MCH 33.8 H MCHC 32.7 RDW Std Deviation 58.4 H RDW Coeff of [place] 15.6 H Plt Count 126 L MPV 10.6 Immature Gran % (Auto) 0.400 Neut % (Auto) 80.1 H Lymph % (Auto) 12.5 L [place] % (Auto) 4.3 Eos % (Auto) 2.1 Baso % (Auto) 0.6 Absolute Neuts (auto) 4.3 Absolute Lymphs (auto) 0.67 L Nucleated RBC % 0 Sodium 140 Potassium 3.0 L Chloride 112 H Carbon Dioxide 23.0 Anion Gap 5 BUN 37 H Creatinine 2.28 H Est GFR (MDRD) Af Amer 35 L Est GFR (MDRD) Non-Af 29 L BUN/Creatinine Ratio 16.2 Glucose 138 H Lactic Acid 1.5 Calcium 9.3 Total Bilirubin 1.20 H AST 18 ALT 23 Alkaline Phosphatase 119 H Total Protein 7.1 Albumin 3.6 Globulin 3.5 Albumin/Globulin Ratio 1.0 Radiography Diagnostic Testing: Clinical Impression(s) from Imaging Studies Abdomen/Pelvis CT 11/17/23 08:43 IMPRESSION: 1. Moderate amount of gallbladder wall edema versus pericholecystic fluid. Gallbladder ultrasound will be helpful. 2. Sigmoid diverticulosis without diverticulitis. 3. 2.6 cm left renal parenchymal cyst is simple cyst. No follow-up is necessary. 4. 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 5. Mild ascites in the abdomen and pelvis. 6. Moderate right posterior pleural effusion and minimal left posterior pleural effusion. Electronically Signed: Jadon Smith MD at 10:59 EST Reading Location ID and State: [facility] / [place] , Service support , Gallbladder Ultrasound 11/17/23 11:11 IMPRESSION: 1. Abnormal 8.1 mm edema/thickening of the gallbladder wall without gallstones but negative for sonographic Guerra''s sign. 2. Small ascites and right pleural effusion. Electronically Signed: Jadon Smith MD at 13:27 EST , Interpretation of ultrasound reveals small amount of ascites with edema and thickening of the gallbladder wall without gallstones and a negative sonographic Guerra sign. In light of this we will have patient follow-up with surgery as an outpatient. White count is normal. Transaminases were normal. CT of the abdomen pelvis without contrast because of the GFR being less than 30 reveals a significant right pleural effusion. There is evidence of ascites. There is inflammation of the gallbladder which may be due to the ascitic fluid. There is evidence of diverticulosis. Question of mild inflammatory changes left lower quadrant. Bladder is full. Kidneys appear normal. This was reviewed by me at 1002. Discharge Plan Triage Chief Complaint: Flank Pain ED Provider: Guillermo Negrete Dx/Rx/DC Orders Clinical Impression: Ascites, Anemia in chronic illness, Chronic kidney disease, Cholecystitis, chronic, Dehydration, mild, Abdominal pain of unknown etiology Instructions: ED Ascites, ED Abdominal Pain Unkn Cause Male... Prescriptions: No Action mecobalamin (vitamin B12) 1,000 mcg tablet,disintegrating 1,000 mcg SUBLINGUAL DAILY Rx Instructions: place tablet under tongue and allow to dissolve for at least30 secs before swallowing. pt takes in the am ascorbate calcium (vitamin C) 500 mg tablet 500 mg PO DAILY albuterol sulfate 90 mcg/actuation HFA aerosol inhaler 2 puff INHALATION Q4H PRN (Reason: shortness of breath or wheezing) Qty: 8.5 6RF Rx Instructions: administer with spacer coenzyme Q10 100 mg tablet 100 mg PO DAILY Rx Instructions: pt takes in the am potassium chloride 20 mEq tablet extended release 20 meq PO MOWEFR atorvastatin 40 MG tablet 40 mg PO QHS allopurinol 100 MG tablet 100 mg PO BID pyridoxine (vitamin B6) 100 MG tablet 100 mg PO DAILY Rx Instructions: pt takes in the am carvedilol 25 mg tablet 25 mg PO BID Rx Instructions: must administer with a meal/food Entresto 49-51 mg tablet 1 tab PO BID magnesium oxide 400 mg (241.3 mg magnesium) tablet 400 mg PO DAILY Patient Comments: TAKE 1 TABLET BY MOUTH ONCE DAILY sodium bicarbonate 650 mg tablet 650 mg PO DAILY Lactobacillus acidophilus [Probiotic Acidophilus] 1 cap PO SUTUTHSA cholecalciferol (vitamin D3) 50 mcg (2,000 unit) tablet 50 mcg PO DAILY Qty: 1 0RF torsemide 20 mg tablet 20 mg PO MOWEFR nitroglycerin 0.4 mg tablet, sublingual 0.4 mg sublingual Q5M PRN (Reason: Cardiac/Chest Pain) Qty: 30 2RF apixaban 2.5 mg tablet 2.5 mg PO BID Qty: 180 4RF Primary Care Provider: Cheli Grace Referrals: Cheli Grace MD [Primary Care Provider] - 1 Week Disposition Disposition: Home, Self Care
[2023-11-17 08:55] LABS: Absolute Lymphocyte Count 0.67 X10^3/uL (0.83-4.51); Absolute Neutrophil Count 4.3 X10^3/uL (2.0-7.7); Basophil# 0.03 X10^3/uL; Basophil% 0.6 % (0-1); Eosinophil# 0.11 X10^3/uL; Eosinophils% 2.1 % (0-5); Hematocrit 29.4 % (40-54); Hemoglobin 9.6 g/dL (13.0-16.5); Lymphocyte # 0.67 X10^3/ul (0.83-4.51); Lymphocyte % 12.5 % (19-41); Mean Corp Hgb Conc 32.7 g/dL (32-36); Mean Corpuscular Hgb 33.8 pg (27.0-32.0); Mean Corpuscular Volume 103.5 fL (80-94); Mean Platelet Vol. 10.6 fl (6.2-12.0); Monocyte# 0.23 X10^3/uL; Monocyte% 4.3 % (0-10); NRBC Flagged by Analyzer 0 % (0-5); Neutrophil % 80.1 % (47-70); Platelet Count 126 K/mm3 (150-450); RBC Distribution Width CV 15.6 % (11.6-14.6); RBC Distribution Width SD 58.4 fl (35.1-43.9); Red Blood Count 2.84 M/mm3 (4.6-6.2); White Blood Count 5.4 K/mm3 (4.4-11.0)
[2023-11-17] MEDS: Morphine 4 MG/ML Syringe IV (08:55)
[2023-11-17] MEDS: Ondansetron 4 MG/2 ML Vial IV (08:55)
[2023-11-17] MEDS: 0.9% Normal Saline (1000mL) 1,000 ML 150 ML IV (08:56)
[2023-11-17 09:14] LABS: AST(SGOT) 18 U/L (15-37); Alanine Aminotransfer ALT/SGPT 23 U/L (16-61); Albumin, Serum 3.6 g/dL (3.2-5.0); Alkaline Phosphatase 119 U/L (45-117); Anion Gap 5 (5-15); BUN 37 mg/dL (7-18); BUN/Creat Ratio 16.2 RATIO (10-20); Calcium,Total 9.3 mg/dL (8.5-10.1); Chloride 112 mmol/L (98-107); Creatinine, Serum 2.28 mg/dL (0.70-1.30); EST Glomerular Filtration Rate 29 mL/min (>60); Est Glom Filt Rate - Afr Amer 35 mL/min (>60); Globulin 3.5 g/dL (2.2-4.2); Glucose 138 mg/dL (74-106); Protein, Total 7.1 g/dL (6.4-8.2); Sodium Level 140 mmol/L (136-145)
[2023-11-17 09:37] LABS: Lactic Acid 1.5 mmol/L (0.4-1.9)
--- OUTSIDE RECORDS SUMMARY | 2023-11-17 09:38 | XMS RPT_ITS | CCD ---
Author Name Unknown Address [address] [place] [address] Organization [facility] Care Team Providers Care Jet Aircraft [employer] Name Role Phone Arnold Spencer MD Primary [...] Care Unavailable SHARAKOVA, CAT Attending Unavailable TALAMPAS, ARNODL D Primary Care Unavailable SHARAKOVA, CAT Referring [...] BESYLATE] Drug Allergy 9 Other: See Comments [facility] (13 sources) HMG-CoA reductase inhibitor; Translations: [KMNYDHS-BDO-PE A REDUCTASE INHIBITORS] Drug Intolerance 4 Other: See Comments [facility] (20 sources) Indomethacin; Translations: [INDOMETHACIN SODIUM] Drug Allergy 2 GI Upset [facility] (20 sources) Lisinopril; Translations: [LISINOPRIL] Drug Allergy 1 Cough [facility] Work Phone: (20 sources) HMG-CoA reductase inhibitor Drug Intolerance 4 Other: See Comments [facility] Medications Current Medications Medication Drug Class(es) Dates [...] Drug Class(es) Dates Sig (Normalized) Sig (Original) [id number] 200 actuat albuterol 0.09 mg/actuat metered dose [...] Coronary atherosclerosis; Translations: [Atherosclerotic heart disease of [place] coronary artery without angina pectoris] Onset: 5 [...] 97.59 [degF] Arnold Spencer MD Work Phone: [facility] 02-02-2023 15:57-0400 Body weight 65.77 kg Arnold Spencer MD Work Phone: [facility] 02-02-2023 15:57-0400 Diastolic blood pressure 68 mm[Hg] Arnold Spencer MD Work Phone: [facility] 02-02-2023 15:57-0400 Heart rate 93 /min Arnold Spencer MD Work Phone: [facility] 02-02-2023 15:57-0400 Respiratory rate 18 /min Arnold Spencer MD Work Phone: [facility] 02-02-2023 15:57-0400 SaO2% (BldA) [Mass fraction] 98 % Arnold Spencer MD Work Phone: [facility] 02-02-2023 15:57-0400 Systolic blood pressure 122 mm[Hg] Arnold Spencer MD Work Phone: [facility] 11-03-2022 14:40-0500 Body height 177.8 cm Cat Chavira MD Work Phone: [facility] 11-03-2022 14:40-0500 Body weight 68.95 kg Cat Chavira MD Work Phone: [facility] 11-03-2022 14:40-0500 Diastolic blood pressure 67 mm[Hg] Cat Chavira MD Work Phone: [facility] 11-03-2022 14:40-0500 Heart rate 63 /min Cat Chavira MD Work Phone: [facility] 11-03-2022 14:40-0500 Systolic blood pressure 121 mm[Hg] Cat Chavira MD Work Phone: [facility] 07-31-2022 14:41-0400 Body height 177.8 cm Cat Chavira MD Work Phone: [facility] 07-31-2022 14:41-0400 Body weight 64.86 kg Cat Chavira MD Work Phone: [facility] 07-31-2022 14:41-0400 Diastolic blood pressure 72 mm[Hg] Cat Chavira MD Work Phone: [facility] 07-31-2022 14:41-0400 Heart rate 94 /min Cat Chavira MD Work Phone: [facility] 07-31-2022 14:41-0400 Systolic blood pressure 127 mm[Hg] Cat Chavira MD Work Phone: [facility] 07-28-2022 13:31-0400 Body height 177.8 cm Partha Santana PA-C Work Phone: [facility] 07-28-2022 13:31-0400 Body temperature 97 [degF] Partah Santana PA-C Work Phone: [facility] 07-28-2022 13:31-0400 Body weight 65.32 kg Partha Santana PA-C Work Phone: [facility] 07-28-2022 13:31-0400 Diastolic blood pressure 70 mm[Hg] Partha Santana PA-C Work Phone: [facility] 07-28-2022 13:31-0400 Heart rate 108 /min Partha Santana PA-C Work Phone: [facility] 07-28-2022 13:31-0400 Respiratory rate 14 /min Partha Santana PA-C Work Phone: [facility] 07-28-2022 13:31-0400 SaO2% (BldA) [Mass fraction] 96 % Partha Santana PA-C Work Phone: [facility] 07-28-2022 13:31-0400 Systolic blood pressure 110 mm[Hg] Partha Santana PA-C Work Phone: [facility] 07-21-2022 14:42-0400 Body weight 65.32 kg 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 [employer]HOME [employer]URNISH[employer] SALES REPRESENTATIVE Work Phone: [facility] 07-21-2022 14:42-0400 Diastolic blood pressure 68 mm[Hg] 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 [employer]HOME FURNISHINGS SALES REPRESENTATIVE Work Phone: [facility] 07-21-2022 14:42-0400 Heart rate 60 /min 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 [employer]HOME FURNISHINGS SALES REPRESENTATIVE Work Phone: [facility] 07-21-2022 14:42-0400 Respiratory rate 16 /min 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 [employer]HOME FURNISHINGS SALES REPRESENTATIVE Work Phone: [facility] 07-21-2022 14:42-0400 SaO2% (BldA) [Mass fraction] 99 % Edlla Pineda [employer]HOME FURNISHINGS SALES REPRESENTATIVE Work Phone: [facility] 07-21-2022 14:42-0400 Systolic blood pressure 120 mm[Hg] 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 [employer]HOME FURNISHINGS SALES REPRESENTATIVE Work Phone: [facility] 07-10-2022 15:50-0400 Body height 172.7 cm Cat Chavira MD Work Phone: [facility] 07-10-2022 15:50-0400 Body weight 70.31 kg Cat Chavira MD Work Phone: [facility] 07-10-2022 15:50-0400 Diastolic blood pressure 81 mm[Hg] Cat Chavira MD Work Phone: [facility] 07-10-2022 15:50-0400 Heart rate 63 /min Cat Chavira MD Work Phone: [facility] 07-10-2022 15:50-0400 Systolic blood pressure 145 mm[Hg] Cat Chavira MD Work Phone: [facility] 06-23-2022 14:33-0400 Body weight 68.49 kg 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 [employer]HOME FURNISHINGS SALES REPRESENTATIVE Work Phone: [facility] 06-23-2022 14:33-0400 Diastolic blood pressure 60 mm[Hg] 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 [employer]HOME FURNISHINGS SALES REPRESENTATIVE Work Phone: [facility] 06-23-2022 14:33-0400 Heart rate 80 /min 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 [employer]HOME FURNISHINGS SALES REPRESENTATIVE Work Phone: [facility] 06-23-2022 14:33-0400 Respiratory rate 16 /min 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 [employer]HOME FURNISHINGS SALES REPRESENTATIVE Work Phone: [facility] 06-23-2022 14:33-0400 Systolic blood pressure 110 mm[Hg] 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 [employer]HOME FURNISHINGS SALES REPRESENTATIVE Work Phone: [facility] 06-05-2022 14:02-0400 Body weight 72.12 kg Arnold Spencer MD Work Phone: [facility] 06-05-2022 14:02-0400 Diastolic blood pressure 80 mm[Hg] Arnold Spencer MD Work Phone: [facility] 06-05-2022 14:02-0400 Heart rate 74 /min Arnold Spencer MD Work Phone: [facility] 06-05-2022 14:02-0400 SaO2% (BldA) [Mass fraction] 98 % Arnold Spencer MD Work Phone: [facility] 06-05-2022 14:02-0400 Systolic blood pressure 140 mm[Hg] Arnold Spencer MD Work Phone: [facility] 05-26-2022 10:07-0400 Body temperature 97.9 [degF] 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 [employer]HOME FURNISHINGS SALES REPRESENTATIVE Work Phone: [facility] 05-26-2022 10:07-0400 Body weight 70.76 kg 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 [employer]HOME FURNISHINGS SALES REPRESENTATIVE Work Phone: [facility] 05-26-2022 10:07-0400 Diastolic blood pressure 74 mm[Hg] 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 [employer]HOME FURNISHINGS SALES REPRESENTATIVE Work Phone: [facility] 05-26-2022 10:07-0400 Heart rate 70 /min 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 [employer]HOME FURNISHINGS SALES REPRESENTATIVE Work Phone: [facility] 05-26-2022 10:07-0400 Respiratory rate 16 /min 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 [employer]HOME FURNISHINGS SALES REPRESENTATIVE Work Phone: [facility] 05-26-2022 10:07-0400 SaO2% (BldA) [Mass fraction] 97 % 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 [employer]HOME FURNISHINGS SALES REPRESENTATIVE Work Phone: [facility] 05-26-2022 10:07-0400 Systolic blood pressure 134 mm[Hg] 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 [employer]HOME FURNISHINGS SALES REPRESENTATIVE Work Phone: [facility] 03-10-2022 12:58-0400 Body weight 68.95 kg 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 [employer]HOME FURNISHINGS SALES REPRESENTATIVE Work Phone: [facility] 03-10-2022 12:58-0400 Diastolic blood pressure 82 mm[Hg] 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 [employer]HOME FURNISHINGS SALES REPRESENTATIVE Work Phone: [facility] 03-10-2022 12:58-0400 Heart rate 84 /min 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 [employer]HOME FURNISHINGS SALES REPRESENTATIVE Work Phone: [facility] 03-10-2022 12:58-0400 Respiratory rate 16 /min 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 [employer]HOME FURNISHINGS SALES REPRESENTATIVE Work Phone: [facility] 03-10-2022 12:58-0400 Systolic blood pressure 130 mm[Hg] 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 [employer]HOME FURNISHINGS SALES REPRESENTATIVE Work Phone: [facility] Encounters Encounter Date Encounter Type Care Provider [...] Assay of magnesium Luis Daniel De Guzmans [employer]HOME FURNISHINGS SALES REPRESENTATIVE Work Phone: Start: 03-13-2022 PACEMAKER REMOTE CHECK Elena Bunch MD Work Phone: Start: 2015 History of coronary artery bypass grafting S/P CABG (coronary artery bypass graft) Jarvis Mcgee RN History of coronary artery bypass grafting S/P CABG (coronary artery bypass graft) Della De Guzmans [employer]HOME FURNISHINGS SALES REPRESENTATIVE Work Phone: History of coronary artery bypass grafting S/P CABG (coronary artery bypass graft) Della De Guzmans [employer]HOME FURNISHINGS SALES REPRESENTATIVE Work Phone: Plan of Treatment Date Care Activity Detail Author Start: 02-02-2026 DIABETES SCREEN DIABETES SCREEN [facility] Start: 02-02-2026 Diabetes Screening Diabetes Screenin g [facility] Start: 12-10-2025 DIABETES SCREEN DIABETES SCREEN [facility] Start: 08-27-2025 DIABETES SCREEN DIABETES SCREEN [facility] Start: 08-18-2025 DIABETES SCREEN DIABETES SCREEN [facility] Start: 07-28-2025 DIABETES SCREEN DIABETES SCREEN [facility] Start: 07-20-2025 DIABETES SCREEN DIABETES SCREEN [facility] Start: 07-06-2025 DIABETES SCREEN DIABETES SCREEN [facility] Start: 05-25-2025 DIABETES SCREEN DIABETES SCREEN [facility] Start: 01-09-2025 DIABETES SCREEN DIABETES SCREEN [facility] Start: 02-03-2024 Hepatitis B surface antibody level LDL CHOLESTEROL [facility] Start: 02-03-2024 SHINGRIX VACCINE (1 of 2) SHINGRIX VACCINE (1 of 2) [facility] Immunizations Immunization Date Immunization Notes Care Provider Nino ewing 08-15-2022 influenza, high-dose , quadrivalent vaccine (FLUZONE HIGH DOSE QUADRIVALENT) Immunization [place] Work Phone: [facility] 08-15-2022 influenza virus vaccine, unspecified formulation Jacquelyn Conley RN [facility] 07-28-2021 influenza, high-dose , quadrivalent vaccine (FLUZONE HIGH DOSE QUADRIVALENT) Jarvis Mcgee RN [facility] 03-04-2021 COVID-19 vaccine, ag e 12+ yr (PFIZER-BIONTECH - PURPLE TOP) Jarvis Mcgee RN [facility] 02-08-2021 COVID-19 vaccine, ag e 12+ yr (PFIZER-BIONTECH - PURPLE TOP) Jarvis Mcgee RN [facility] 08-08-2020 influenza, seasonal, injectable Jarvis Mcgee RN [facility] 07-24-2020 influenza, high-dose , quadrivalent vaccine (FLUZONE HIGH DOSE QUADRIVALENT) Cat Chavira MD Work Phone: [facility] 10-10-2019 influenza, high dose seasonal, preservative-free Jarvis Mcgee RN [facility] Work Phone: 07-01-2018 influenza, high dose seasonal, preservative-free Jarvis Mcgee RN [facility] 08-19-2017 influenza, high dose seasonal, preservative-free Javris Mcgee RN [facility] 08-19-2017 tetanus and diphther ia toxoids, adsorbed, preservative free, for adult use (5 Lf of tetanus toxoid and 2 Lf of diphtheria toxoid) Jarvis Mcgee RN [facility] 08-11-2016 influenza, high dose seasonal, preservative-free Jarvis Mcgee RN [facility] Work Phone: 07-29-2015 influenza, high dose seasonal, preservative-free Jarvis Mcgee RN [facility] 07-29-2015 pneumococcal conjuga te vaccine, 13 valent Jarvis Mcgee RN [facility] 08-22-2014 influenza, seasonal, injectable Jarvis Mcgee RN [facility] Work Phone: 09-06-2013 influenza virus vaccine, unspecified formulation Jarvis Mcgee RN [facility] Work Phone: 09-19-2012 influenza virus vaccine, unspecified formulation Jarvis Mcgee RN [facility] 10-23-2011 influenza virus vaccine, unspecified formulation Jarvis Mcgee RN [facility] 03-27-2008 pneumococcal polysaccharide vaccine, 23 valent Jarvis Mcgee RN [facility] NEGATED: Highlighted row has not occurred!07-21-2022 influenza, high-dose, quadrivalent vaccine (FLUZONE HIGH DOSE QUADRIVALENT) 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 APRN.[facility] Work Phone: [facility] Work Phone: Payers Date Payer Category Payer Medicare [id number] 2021 Unknown [employer]IC[employer] SUPPLEMENT [id number] 2021-Present [phone] [id number] [place] [address] Indemnity [id number] 2019 Unknown [id number] 2001 Medicare MEDICARE MEDICAR E A AND B [id number] 2001-Present [phone] [place] [address] Medicare [id number] 2001 Medicare MEDICARE MEDICAR E A AND B [id number] 2001-Present [phone] [place] [address] Medicare [id number] 2001 Medicare [id number] Social History Date Type Detail Facility Start: 02-22-2012 End: 06-23-2022 Tobacco smoking status NHIS Never smoked tobacco [facility] Start: 01-13-2022 End: 02-02-2023 Alcohol intake Current non-drinker of alcohol (finding) [facility] Start: 03-29-2020 End: 04-23-2020 History SDOH Alcohol Frequency 1 [facility] Start: 03-29-2020 History SDOH Alcohol Std Drinks 98 [facility] Start: 03-29-2020 End: 04-23-2020 History SDOH Social Connections Phone 5 [facility] Start: 03-29-2020 History SDOH Social Connections Get Together 4 [facility] Start: 03-29-2020 History SDOH Social Connections Religious 3 [facility] Start: 03-08-2020 End: 03-29-2020 History SDOH Physical Activity DPW 2 [facility] Start: 03-08-2020 Education 15 [facility] Start: 1935 Sex Assigned At Not on file [facility] Start: 01-03-2022 End: 07-31-2022 Exposure to SARS-CoV-2 (event) Not sure [facility] Work Phone: Start: 02-22-2012 End: 06-23-2022 Tobacco use and exposure Smokeless tobacco non-user [facility] Tobacco smoking stat us NHIS Tobacco smoking consumption unknown [facility] Start: 02-02-2023 End: 04-26-2023 History of Social function [facility] Work Phone: Start: 02-02-2023 End: 04-26-2023 Tobacco use panel [facility] Work Phone: Adult Depression Screening Assessment 0 [facility] Work Phone: Do you belong to any clubs or organizations such as yazidism groups, unions, fraternal or athletic groups, or school groups? Yes [facility] Are you now , , , , never or living with a partner? [facility] How often to you hav e a drink containing alcohol? Never [facility] Do you feel stress - tense, restless, nervous, or anxious, or unable to sleep at night because your mind is troubled all the time - these days [OSQ] Not at all [facility] (I/We) worried wheth er (my/our) food would run out before (I/we) got money to buy more. Never true [facility] Work Phone: In the past 12 month s, was there a time when you were not able to pay the mortgage or rent on time? No [facility] Medical Equipment Procedure Code Equipment Code Equipment Original Text Equipment Identifier Dates Plate Low Profil e Titanium 12mm Bone 2 Hole Bar 1.5mm Screw Nonsterile - [id number] Start: 11-29-2018 Plate Low Profil e Titanium 12mm Bone 2 Hole Bar 1.5mm Screw Nonsterile - [id number] Start: 11-29-2018 Screw 1.5mm 4mm Bone Self Drill Cross Pin Craniomaxillofacial - [id number] Start: 11-29-2018 Screw 1.5mm 4mm Bone Self Drill [place] Craniomaxillofacial - [id number] Start: 11-29-2018 Goals Date Patient Goal Desired Activity /State Personal health goal Clinical Notes 06-03-2017 to 09-17-2023 Jacquelyn Conley RN - 08/09/2023 4:50 PM EDTSJacquelyn werner RN - 08/06/2023 5:59 PM EDTTelephone Russ - Liliana De La Rosa Ma - 08/09/2023 2:58 PM EDTBeverley Kaba LPN - 08/28/2022 1:39 PM EDT Note Date & Type Note Facility 09-17-2023 Note HNO ID: [id number] Author: Jacquelyn Conley RN Service: ? Author Type: Registered Nurse Type: Progress Notes Filed: 09/27/2023 2:20 PM Note Text: CDM Telephonic Outreach Provider Action/FYI CDM: CHF, CKD Spk with spouse Deirdre she noted Joseph has vocal cord issue and nasal passage issues, has 09/22/[address] Alicea ENT. Pt recently established with Dr. [facility].Denies needs. Instructed to call new PCP for any symptom changes, concerns or needs, Pt and are aware of discontinuation of Record Changer services, and noted appreciation for previous and [...] pounds in a week? No Based on clinical research specialist, the following disposition is advised: No symptoms or symptoms present, not severe. Routed to: No Action Needed SEVEN Education Provided this Outreach: No Jacquelyn Conley RN September 17, 2023 3:44 PM [facility] 09-17-2023 Note Patient Outreach (AM [facility] DARCY COVARRUBIAS ([id number]) 1935 M T Date Time Provider Department 09/17/23 JACQUELYN CONLEY [facility] During your visit today, we recorded the following information about you: Jacquelyn Conley RN 09/27/2023 2:20 PM Signed CDM Telephonic Outreach Provider Action/FYI CDM: CHF, CKD Spk with spouse Deirdre she noted Joseph has vocal cord issue and nasal passage issues, has 09/22/[address] Alicea ENT. Pt recently established with Dr. Lesly [facility].Denies needs. Instructed to call new PCP for any symptom changes, concerns or needs, Pt and are aware of discontinuation of Record Changer services, and noted appreciation for previous and [...] pounds in a week? No Based on clinical research specialist, the following disposition is advised: No symptoms or symptoms present, not severe. Routed to: No Action Needed SEVEN Education Provided this Outreach: No Jacquelyn Conley RN September 17, 2023 3:44 PM Allergies As of Date: 09/17/2023 Noted Allergy Reaction INDOCIN (INDOMETHACIN SODIUM) 03/22/2012 8 - GI Upset NORVASC (AMLODIPINE BESYLATE) 12/16/2018 14 - Other: See Comments Comments: Dizziness [id number] REDUCTASE INHIBIT*07/10/2014 14 - Other: See Comments [...] as needed for cough. - Lacto 21-Bifido 5-Q-G0-B6-B12 (UP4 PROBIOTICS MEN'S) 50 billion cell -90 mg-30 mcg cap Take 1 tablet by mouth every other day. - atorvastatin (LIPITOR) 40 mg tablet Take 1 tablet by mouth once daily. - Coenzyme P07-Kxzaead E 100-100 mg cap Take by mouth. [...] 1 tablet by mouth once daily. - Omzmm-9-LZU-EPA-Fish Oil 1,000 mg (120 mg-180 mg) cap [...] PVC's (premature ventric (more content not included)... [facility] 08-09-2023 Note HNO ID: [id number] Author: Jacquelyn Conley RN Service: ? Author [...] Conley RN August 09, 2023 4:50 PM [facility] 08-09-2023 History of Present illness Narrative CDM [...] 2023 5:59 PM documented in this encounter [facility] 08-09-2023 Miscellaneous Notes Patient called the office to cancel his Aug [address] Chavira because he would prefer a kidney doctor closer to where he lives in [place], [place] documented in this encounter [facility] 08-06-2023 Note HNO ID: [id number] Author: Jacquelyn Conley RN Service: ? Author [...] Conley RN August 06, 2023 5:59 PM [facility] 08-06-2023 Note Patient Outreach (AM [facility]) DARCY COVARRUBIAS ([id number]) 1935 M T Date Time Provider Department 08/06/23 JACQUELYN CONLEY [facility] During your visit today, we recorded the [...] 14 - Other: See Comments Comments: Dizziness [id number] REDUCTASE INHIBIT*07/10/2014 14 - Other: See Comments Comments: myalgia LISINOPRIL 12/12/2020 3 - Cough Date Reviewed: 04/26/2023 Reviewed by: Liilana De La Rosa Ma - Fully Assessed [...] capsules by mouth once daily. - Coenzyme F10-Jxvgswf E 100-100 mg cap Take by mouth. - cyanocobalamin (VITAMIN B-12) 1,000 mcg tab Take 1 tablet by mouth once daily. - Lacto 21-Bifido 5-D-S5-B6-B12 (UP4 PROBIOTICS MEN'S) 50 billion cell -90 [...] minutes as needed for chest pain. - Fttib-9-SBJ-EPA-Fish Oil 1,000 mg (120 mg-180 mg) cap [...] left shoulder [M7*06/12/2014 Coronary artery disease involving [place]*07/29/2015 S/P CABG (coronary artery bypass graft) [Z95.1] 2015 Hypokalemia [E87.6] 02/05/2016 01/29/2023 Osteoarthritis of spine with radiculopathy, lum*02/21/2016 History of permanent cardiac pacemaker placemen*09/03/2016 Paroxysmal atrial fibrillation (HCC) [I48.0] 09/03/2016 Chronic anticoagulation [Z79.01] 09/03/2016 12/16/2018 Carotid stenosis, asymptomatic [I65.29] 02/11/2017 Hyperglycemia [R73.9] (more content not included)... [facility] 07-15-2023 Note Patient Outreach (AM [facility] DARCY COVARRUBIAS ([id number]) 1935 M CHT Date Time Provider Department [...] 14 - Other: See Comments Comments: Dizziness [id number] REDUCTASE INHIBIT*07/10/2014 14 - Other: See Comments [...] as needed for cough. - Lacto 21-Bifido 5-E-F5-B6-B12 (UP4 PROBIOTICS MEN'S) 50 billion cell -90 mg-30 mcg cap Take 1 tablet by mouth every other day. - atorvastatin (LIPITOR) 40 mg tablet Take 1 tablet by mouth once daily. - Coenzyme B83-Nxdeohc E 100-100 mg cap Take by mouth. [...] 1 tablet by mouth once daily. - Ybbvi-5-QSR-EPA-Fish Oil 1,000 mg (120 mg-180 mg) cap [...] left shoulder [M7*06/12/2014 Coronary artery disease involving [place]*07/29/2015 S/P CABG (coronary artery bypass graft) [...] mandie*03/19/2020 Heart failu (more content not included)... [facility] 07-15-2023 Note HNO ID: [id number] Author: Jacquelyn Conley RN Service: ? Author Type: Registered Nurse Type: Progress Notes Filed: 07/16/2023 5:24 PM Note Text: CDM Telephonic Outreach Provider Action/FYI CDM: CHF, CKD Left a message instructed to call PCP with any changes in condition or needs. Contacted for: Routine Telephonic Outreach Contact made with patient: No, left message. Jacquelyn Conley RN July 15, 2023 11:10 AM [facility] 07-15-2023 History of Present illness Narrative CDM Telephonic Outreach Provider Action/FYI CDM: CHF, CKD Left a message instructed to call PCP with any changes in condition or needs. Contacted for: Routine Telephonic Outreach Contact made with patient: No, left message. Jacquelyn Conley RN July 15, 2023 11:10 AM documented in this encounter [facility] 06-21-2023 Note HNO ID: [id number] Author: Jacquelyn Conley RN Service: ? Author Type: Registered Nurse Type: Progress Notes Filed: 06/21/2023 3:40 PM Note Text: CDM Telephonic Outreach Provider Action/FYI CDM: CHF, CKD Left a message instructed to call PCP with any changes in condition or needs. Contacted for: Routine Telephonic Outreach Contact made with patient: No, left message. Jacquelyn Conley RN June 21, 2023 3:38 PM [facility] 06-21-2023 History of Present illness Narrative CDM [...] 2023 3:13 PM documented in this encounter [facility] 06-18-2023 Note HNO ID: [id number] Author: Jacquelyn Conley RN Service: ? Author Type: Registered Nurse Type: Progress Notes Filed: 06/21/2023 3:40 PM Note Text: CDM Telephonic Outreach Provider Action/FYI CDM: CHF, CKD Left a message instructed to call PCP with any changes in condition or needs. Contacted for: Routine Telephonic Outreach Contact made with patient: No, left message. Jacquelyn Conley RN June 18, 2023 3:13 PM [facility] 06-17-2023 Note Patient Outreach (AM BCMG) DARCY COVARRUBIAS ([id number]) 1935 M CHT Date Time Provider Department 06/17/23 JACQUELYN CONLEY [facility] [place] During your visit today, we recorded the [...] 14 - Other: See Comments Comments: Dizziness RGRZJVE-BSQ-HWG REDUCTASE INHIBIT*07/10/2014 14 - Other: See Comments [...] as needed for cough. - Lacto 21-Bifido 7-Y-E5-B6-B12 (UP4 PROBIOTICS MEN'S) 50 billion cell -90 mg-30 mcg cap Take 1 tablet by mouth every other day. - atorvastatin (LIPITOR) 40 mg tablet Take 1 tablet by mouth once daily. - Coenzyme C32-Lvelrxr E 100-100 mg cap Take by mouth. [...] 1 tablet by mouth once daily. - Cukwg-8-ARM-EPA-Fish Oil 1,000 mg (120 mg-180 mg) cap [...] left shoulder [M7*06/12/2014 Coronary artery disease involving [place]*07/29/2015 S/P CABG (coronary artery bypass graft) [Z95.1] 2015 Hypokalemia [E87.6] 02/05/2016 01/29/2023 Osteoarthritis of spine with radiculopathy, lum*02/21/2016 History of permanent cardiac pacemaker placemen*09/03/2016 Paroxysmal atrial fibrillation (HCC) [I48.0] 09/03/2016 Chronic anticoagulation [Z79.01] 09/03/2016 12/16/2018 Carotid stenosis, asymptomatic [I65.29] 02/11/2017 Hyperglycemia [R73.9] 02/11/2017 Anemia of chronic disease [D63.8] 02/11/2017 A (more content not included)... [facility] 05-16-2023 Note HNO ID: [id number] Author: Jacquelyn Conley RN Service: ? Author [...] Conley RN May 16, 2023 3:43 PM [facility] 05-16-2023 History of Present illness Narrative CDM [...] 2023 1:31 PM documented in this encounter [facility] 05-10-2023 Note HNO ID: [id number] Author: Jacquelyn Conley RN Service: ? Author [...] Conley RN May 10, 2023 4:28 PM [facility] 05-07-2023 Note HNO ID: [id number] Author: Jacquelyn Conley RN Service: ? Author [...] Conley RN May 07, 2023 1:31 PM [facility] 05-07-2023 Note Patient Outreach (AM BCMG) DARCY COVARRUBIAS ([id number]) 1935 M CHT Date Time Provider [facility], we recorded the [...] 14 - Other: See Comments Comments: Dizziness ABGKXVX-QVL-GRS REDUCTASE INHIBIT*07/10/2014 14 - Other: See Comments [...] as needed for cough. - Lacto 21-Bifido 1-W-R3-B6-B12 (UP4 PROBIOTICS MEN'S) 50 billion cell -90 mg-30 mcg cap Take 1 tablet by mouth every other day. - atorvastatin (LIPITOR) 40 mg tablet Take 1 tablet by mouth once daily. - Coenzyme G90-Gbxnrgg E 100-100 mg cap Take by mouth. [...] 1 tablet by mouth once daily. - Rmcvv-7-FJS-EPA-Fish Oil 1,000 mg (120 mg-180 mg) cap [...] left shoulder [M7*06/12/2014 Coronary artery disease involving [place]*07/29/2015 S/P CABG (coronary artery bypass graft) [Z95.1] 2015 Hypokalemia [E87.6] 04 (more content not included)... [facility] 05-06-2023 Note HNO ID: [id number] Author: Jacquelyn Conley RN Service: ? Author [...] Conley RN May 06, 2023 1:14 PM [facility] 05-06-2023 History of Present illness Narrative CDM [...] 2023 3:42 PM documented in this encounter [facility] 05-05-2023 Note HNO ID: [id number] Author: Jacquelyn Conley RN Service: ? Author [...] Conley RN May 05, 2023 3:42 PM [facility] 05-05-2023 Note Patient Outreach (AM BC) DARCY COVARRUBIAS ([id number]) 1935 M T Date Time Provider Department [...] 14 - Other: See Comments Comments: Dizziness YXHPSIM-YHP-KLD REDUCTASE INHIBIT*07/10/2014 14 - Other: See Comments [...] as needed for cough. - Lacto 21-Bifido 1-B-E0-B6-B12 (UP4 PROBIOTICS MEN'S) 50 billion cell -90 mg-30 mcg cap Take 1 tablet by mouth every other day. - atorvastatin (LIPITOR) 40 mg tablet Take 1 tablet by mouth once daily. - Coenzyme G71-Zodmvqx E 100-100 mg cap Take by mouth. [...] 1 tablet by mouth once daily. - Gcmvq-0-UJS-EPA-Fish Oil 1,000 mg (120 mg-180 mg) cap [...] left shoulder [M7*06/12/2014 Coronary artery disease involving [place]*07/29/2015 S/P CABG (coronary artery bypass graft) [Z95.1] 2015 Hypokalemia [E87.6] 02/05/2016 01/29/2023 Osteoarthritis of spine with radiculopathy, lum*02/21/2016 History of permanent cardiac pacemaker placemen*09/03/2016 Paroxysmal atrial fibrillation (HCC) [I48.0] 09/03/2016 Chronic anticoagulation [Z79.01] 09/03/2016 12/16/2018 Carotid stenosis, asymptomatic [I65.29] 02/11/2017 Hyperglycemia [R73.9] 02/11/2017 Anemia of chronic disease [D63.8] 02/11/2017 Atria (more content not included)... [facility] 04-26-2023 Note HNO ID: [id number] Author: Cat Chavira MD Service: ? Author Type: Physician Type: Progress Notes Filed: 04/26/2023 12:37 PM Note Text: [facility] KIDNEY MEDICINE [facility] SERVICE DATE: 04/26/2023 [...] of Left Shoulder Coronary Artery Disease Involving [place] Coronary Artery of [place] Heart Without Angina Pectoris S/P Cabg (Coronary [...] mg by mouth every Wednesday,Wednesday,Wednesday.) Lacto 21-Bifido 0-Q-E9-B6-B12 (UP4 PROBIOTICS MEN'S) 50 billion cell -90 mg-30 mcg cap Take 1 tablet by mouth every other day. atorvastatin (LIPITOR) 40 mg tablet Take 1 tablet by mouth once daily. Coenzyme M25-Ocyythx E 100-100 mg cap Take by mouth. [...] Take 1 tablet by mouth once daily. Lcdta-0-AUF-EPA-Fish Oil 1,000 mg (120 mg-180 mg) cap [...] Reactions Indocin [Indometha (more content not included)... [facility] 04-01-2023 Note HNO ID: [id number] Author: Jacquelyn Conley RN Service: ? Author [...] pounds in a week? No Based on clinical research specialist, the following disposition is advised: No symptoms or symptoms present, not severe. Routed to: No Action Needed SEVEN Education Provided this Outreach: No Jacquelyn Conley RN April 01, 2023 6:03 PM [facility] 04-01-2023 History of Present illness Narrative CDM [...] pounds in a week? No Based on clinical research specialist, the following disposition is advised: No symptoms [...] 2023 12:44 PM documented in this encounter [facility] 03-30-2023 Note HNO ID: [id number] Author: Jacquelyn Conley RN Service: ? Author [...] Conley RN March 30, 2023 12:44 PM [facility] 03-30-2023 Note Patient Outreach (AM BCMG) DARCY COVARRUBIAS ([id number]) 1935 M [facility] Date Time Provider Department 03/30/23 JACQUELYN CONLEY [...] pounds in a week? No Based on clinical research specialist, the following disposition is advised: No symptoms or symptoms present, not severe. Routed to: No Action Needed SEVEN Education Provided this Outreach: No Jacquelyn Conley RN April 01, 2023 6:03 PM Allergies As of Date: 03/30/2023 Noted Allergy Reaction INDOCIN (INDOMETHACIN SODIUM) 03/22/2012 8 - GI Upset NORVASC (AMLODIPINE BESYLATE) 12/16/2018 14 - Other: See Comments Comments: Dizziness CMPMKUH-DNN-GJT REDUCTASE INHIBIT*07/10/2014 14 - Other: See Comments [...] as needed for cough. - Lacto 21-Bifido 2-T-M2-B6-B12 (UP4 PROBIOTICS MEN'S) 50 billion cell -90 mg-30 mcg cap Take 1 tablet by mouth once daily. - atorvastatin (LIPITOR) 40 mg tablet Take 1 tablet by mouth once daily. - Coenzyme X05-Csdrtkz E 100-100 mg cap Take by mouth. [...] 1 tablet by mouth once daily. - Xkqod-6-YLJ-EPA-Fish Oil 1,000 mg (120 mg-180 mg) cap Take 2 g by mouth once daily. - PSYLLIUM HUSK, BULK, MISC Take 1 Packet by mouth once daily. 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 [facility] 03-04-2023 Note HNO ID: [id number] Author: Jacquelyn Conley RN Service: ? Author [...] Conley RN March 04, 2023 2:51 PM [facility] 03-04-2023 History of Present illness Narrative CDM [...] 2023 3:46 PM documented in this encounter [facility] 03-02-2023 Note HNO ID: [id number] Author: Jacquelyn Conley RN Service: ? Author [...] Conley RN March 02, 2023 3:46 PM [facility] 03-02-2023 Note Patient Outreach (AM BCMG) DARCY COVARRUBIAS ([id number]) 1935 M T Date Time Provider Department [...] Contact made with patient: No, left message. Jacuqelyn Conley RN March 04, 2023 2:51 PM Allergies As of Date: 03/02/2023 Noted Allergy Reaction INDOCIN (INDOMETHACIN SODIUM) 03/22/2012 8 - GI Upset NORVASC (AMLODIPINE BESYLATE) 12/16/2018 14 - Other: See Comments Comments: Dizziness FVQVLUG-BXV-GJE REDUCTASE INHIBIT*07/10/2014 14 - Other: See Comments [...] as needed for cough. - Lacto 21-Bifido 8-Q-C3-B6-B12 (UP4 PROBIOTICS MEN'S) 50 billion cell -90 mg-30 mcg cap Take 1 tablet by mouth once daily. - atorvastatin (LIPITOR) 40 mg tablet Take 1 tablet by mouth once daily. - Coenzyme M52-Urttvnt E 100-100 mg cap Take by mouth. [...] 1 tablet by mouth once daily. - Ynnys-7-IXW-EPA-Fish Oil 1,000 mg (120 mg-180 mg) cap [...] left shoulder [M7*06/12/2014 Coronary artery disease involving [place]*07/29/2015 S/P CABG (coronary artery bypass graft) [Z95.1] 2015 Hypokalemia [E87.6] 02/05/2016 01/29/2023 Osteoarthritis of spine with radiculopathy, lum*02/21/2016 History of permanent cardiac pacemaker placemen*09/03/2016 Paroxysmal atrial fibrillation (HCC) [I48.0] 09/03/2016 Chronic anticoagulation [Z79.01] 09/03/2016 12/16/2018 Carotid stenosis, asymptomatic [I65.29] 02/11/2017 Hyperglycemia [R73.9] 02/11/2017 Anemia o (more content not included)... [facility] 02-09-2023 Note HNO ID: [id number] Author: Cat Chavira MD Service: ? Author [...] obstructive uropathy with baseline creatinine 2.0-2.5 lately. [place] UA. Today patient does not have active [...] 07/28/2022 6.0 5.0 - 8.0 Final Specific [place], Ur Date Value Ref Range Status 07/28/2022 [...] Time Spent: 25 minutes Cat Chavira MD [facility] 02-08-2023 Note HNO ID: [id number] Author: Jacquelyn Conley RN Service: ? Author [...] pounds in a week? No Based on clinical research specialist, the following disposition is advised: Symptoms present, not severe. Routed to: No Action Needed SEVEN Education Provided this Outreach: No Jacquelyn Conley RN February 08, 2023 6:05 PM [facility] 02-08-2023 History of Present illness Narrative CDM [...] pounds in a week? No Based on clinical research specialist, the following disposition is advised: Symptoms present, [...] 2023 11:12 AM documented in this encounter [facility] 02-05-2023 Note HNO ID: [id number] Author: Jacquelyn Conley RN Service: ? Author [...] Conley RN February 08, 2023 11:12 AM [facility] 02-05-2023 Note Patient Outreach (AM BCMG) DARCY COVARRUBIAS ([id number]) 1935 M T Date Time Provider Department [...] pounds in a week? No Based on clinical research specialist, the following disposition is advised: Symptoms present, not severe. Routed to: No Action Needed SEVEN Education Provided this Outreach: No Jacquelyn Conley RN February 08, 2023 6:05 PM Allergies As of Date: 02/05/2023 Noted Allergy Reaction INDOCIN (INDOMETHACIN SODIUM) 03/22/2012 8 - GI Upset NORVASC (AMLODIPINE BESYLATE) 12/16/2018 14 - Other: See Comments Comments: Dizziness PVKGIXS-IOZ-MNA REDUCTASE INHIBIT*07/10/2014 14 - Other: See Comments [...] as needed for cough. - Lacto 21-Bifido 2-M-W2-B6-B12 (UP4 PROBIOTICS MEN'S) 50 billion cell -90 mg-30 mcg cap Take 1 tablet by mouth once daily. - atorvastatin (LIPITOR) 40 mg tablet Take 1 tablet by mouth once daily. - Coenzyme E48-Ebimads E 100-100 mg cap Take by mouth. [...] 1 tablet by mouth once daily. - Rxrvt-8-MBL-EPA-Fish Oil 1,000 mg (120 mg-180 mg) cap [...] keratosis [L82.1] 05/08/2011 (more content not included)... [facility] 02-02-2023 Note HNO ID: [id number] Author: Arnold Spencer MD Service: ? Author Type: Physician Type: Progress Notes Filed: 03/01/2023 2:10 AM Note Text: This note was created using [employer]. Subjective Darcy Covarrubias is a 87 year [...] tablets by mouth every Wednesday,Wednesday,Wednesday. Lacto 21-Bifido 6-W-F9-B6-B12 (UP4 PROBIOTICS MEN'S) 50 billion cell -90 mg-30 mcg cap Take 1 tablet by mouth once daily. atorvastatin (LIPITOR) 40 mg tablet Take 1 tablet by mouth once daily. Coenzyme X55-Ngpwexi E 100-100 mg cap Take by mouth. [...] Take 1 tablet by mouth once daily. Pyjxo-6-NQF-EPA-Fish Oil 1,000 mg (120 mg-180 mg) cap [...] making for managemen (more content not included)... [facility] 02-02-2023 History of Present illness Narrative This [...] tablets by mouth every Wednesday,Wednesday,Wednesday. Lacto 21-Bifido 4-Q-S9-B6-B12 (UP4 PROBIOTICS MEN'S) 50 billion cell -90 mg-30 mcg cap Take 1 tablet by mouth once daily. atorvastatin (LIPITOR) 40 mg tablet Take 1 tablet by mouth once daily. Coenzyme X62-Dnpzdaq E 100-100 mg cap Take by mouth. [...] Take 1 tablet by mouth once daily. Ihyoq-3-SVC-EPA-Fish Oil 1,000 mg (120 mg-180 mg) cap [...] Arnold Spencer MD documented in this encounter [facility] 01-08-2023 Note Patient Outreach (AM BCMG) DARCY COVARRUBIAS ([id number]) 1935 M T Date Time Provider Department [...] like to speak with a social work steamer tender to help give you support for any [...] you up for automated weekly questionnaires through [employer]. This is an easy way for us [...] 14 - Other: See Comments Comments: Dizziness VEBVYZK-AJD-SQF REDUCTASE INHIBIT*07/10/2014 14 - Other: See Comments Comments: myalgia LISINOPRIL 12/12/2020 3 - Cough Date Reviewed: 11/19/2022 Reviewed by: 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 APRN.HOME FURNISHINGS SALES REPRESENTATIVE - Fully Assessed Reason for Visit: Community [...] as needed for cough. - Lacto 21-Bifido 6-U-Z9-B6-B12 (UP4 PROBIOTICS MEN'S) 50 billion cell -90 mg-30 mcg cap Take 1 tablet by mouth once daily. - atorvastatin (LIPITOR) 40 mg tablet Take 1 tablet by mouth once daily. - Coenzyme S43-Wrduxzh E 100-100 mg cap Take by mouth. - loperamide (IMODIUM) 2 mg cap(s) (more content not included)... [facility] 01-08-2023 Note HNO ID: [id number] Author: Jacquelyn Conley RN Service: ? Author [...] like to speak with a social work steamer tender to help give you support for any [...] you up for automated weekly questionnaires through [employer]. This is an easy way for us [...] Conley RN January 08, 2023 8:52 AM [facility] 01-08-2023 History of Present illness Narrative INSIGHT [...] like to speak with a social work steamer tender to help give you support for any [...] you up for automated weekly questionnaires through [employer]. This is an easy way for us [...] 2023 8:52 AM documented in this encounter [facility] 01-07-2023 Miscellaneous Notes Patient has been identified by name and date of : Yes Spouse phones for refill(s): Requested Prescriptions Pending Prescriptions Disp Refills allopurinol (ZYLOPRIM) 100 mg tablet 180 tablet 1 Sig: Take 2 tablets by mouth once daily. For gout. Last Office Visit: 11/19/22 with 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 Next Visit: 02/02/[address] Palomo Clark, RN documented in this encounter [facility] 12-08-2022 Note HNO ID: [id number] Author: Jacquelyn Conley RN Service: ? Author [...] 12/11/22 Appt with Coco Singh GI/ Friend [facility] Wt 134 lbs, BP 120/80 Denies [...] like to speak with a social work steamer tender to help give you support for any [...] you up for automated weekly questionnaires through [employer]. This is an easy way for us [...] Conley RN December 08, 2022 9:17 AM [facility] 12-08-2022 History of Present illness Narrative [facility] TELEPHONIC OUTREACH Provider Action/FYI: Routed Updates to Dr. Palomo DAVENPORT: CHF, CKD Pt denies Sob, wheezing, extremity edema improved Pt noted dry cough when he has acid reflux, he is taking Pepcid OTC which is effective, 12/11/22 Appt with Coco BARRETT/ . Friend [facility] Wt 134 lbs, BP 120/80 Denies [...] like to speak with a social work steamer tender to help give you support for any [...] you up for automated weekly questionnaires through [employer]. This is an easy way for us [...] 2022 10:29 AM documented in this encounter [facility] 12-07-2022 Note Patient Outreach (AM BCMG) DARCY COVARRUBIAS ([id number]) 1935 M T Date Time Provider Department [...] 12/11/22 Appt with Coco BARRETT/ . Friend [facility] Wt 134 lbs, BP 120/80 Denies [...] like to speak with a social work steamer tender to help give you support for any [...] you up for automated weekly questionnaires through [employer]. This is an easy way for us [...] 14 - Other: See Comments Comments: Dizziness SJPSRLC-DPG-XBK REDUCTASE INHIBIT*07/10/2014 14 - Other: See Comments Comments: myalgia LISINOPRIL 12/12/2020 3 - Cough Date Reviewed: 11/19/2022 Reviewed by: 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 APRN.HOME FURNISHINGS SALES REPRESENTATIVE - Fully Assessed Reason for Visit: Community Monitoring Outreach [Other] Prescriptions as of 12/08/2022 - torsemide (DEMADEX) 10 mg tablet Take 2 tablets by mouth every Wednesday,Wednesday,Wednesday. - benzonatate (TESSALON PERLES) 100 mg capsule Take 1-2 capsules by mouth three times daily as needed for cough. - Lacto 21-Bifido 8-O-V1-B6-B12 (UP4 PROBIOTICS MEN'S) 50 billion cell -90 mg-30 mcg cap Take 1 tablet by mouth once daily. - magnesium oxide (MAG-OX) 400 mg (241.3 mg magnesium) tablet Take 1 tablet by mouth once daily. - atorvastatin (LIPITOR) 40 mg tablet Take 1 tablet by mouth once daily. - Co (more content not included)... [facility] 12-07-2022 Note HNO ID: [id number] Author: Jacquelyn Conley RN Service: ? Author [...] Conley RN December 07, 2022 10:29 AM [facility] 12-04-2022 Miscellaneous Notes Left message for pt to return phone call. Inquiring about who he is getting his eliquis filled with. Received refill request from [facility]. We have not filled it since 2020. He may be getting assistance through the assistance program. Please verify. Elizabeth Evans RN documented in this encounter [facility] 11-24-2022 Miscellaneous Notes notified and verbalized understanding. [...] have a refill. Please call her at [phone] Spoke with patients . Patient called cardiology as soon as they left appointment with SUSHMA Bellamy. Producer Director put him on Spirolactone and potassium and wanted him to have labs done wed,wed, or and once they have lab work back she is to call for an appt with them. Please check to see how he is doing re: cough and if he has a cardiology appointment upcoming. documented in this encounter [facility] 11-20-2022 Miscellaneous Notes Joseph needs a refill on Torsemide 10 mg but Deirdre said that they told you the tenant coordinator put him on Torsemide 20 mg on Wednesday, Wednesday and Wednesday. Deirdre want you to remember that when you refill the prescription. Please send to [facility]. Any questions call Deirdre [phone] documented in this encounter [facility] 11-19-2022 Note HNO ID: [id number] Author: RT Ellen(R) Service: Nuclear Medicine Author [...] Plaza, (R) November 19, 2022 2:26 PM [facility] 11-19-2022 Note HNO ID: [id number] Author: 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 APRN.HOME FURNISHINGS SALES REPRESENTATIVE Service: ? Author Type: Nurse Specialist Type: [...] of Left Shoulder Coronary Artery Disease Involving [place] Coronary Artery of [place] Heart Without Angina Pectoris S/P Cabg (Coronary [...] from previous visit: He was admitted to [facility] July 13 through July 15 with progressively worsening shortness of breath for several weeks prior to arrival along with chest discomfort. Recent echocardiogram at [facility] showed ejection fraction of 20%, severe global hypokinesis, 1-2+ eccentric mitral regurgitation, RVSP 44 mmHg. 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 He was treated with Lasix 40 mg IV twice daily while hospitalized. 1500 mL fluid restriction. Daily weights. Kidney and electrolyte monitoring. Followed by [facility], . He was seen by [...] and magnesium advised. Advised to follow-up with management trainee program stores and tenant coordinator. Advised to follow-up with urologist Dr. Douglas. [...] Right Ear: Tympa (more content not included)... [facility] 11-05-2022 Note HNO ID: [id number] Author: Jacquelyn Conley, RN Service: ? Author [...] like to speak with a social work steamer tender to help give you support for any [...] you up for automated weekly questionnaires through [employer]. This is an easy way for us [...] Conley RN November 05, 2022 10:17 AM [facility] 11-05-2022 History of Present illness Narrative INSIGHT [...] like to speak with a social work steamer tender to help give you support for any [...] you up for automated weekly questionnaires through [employer]. This is an easy way for us [...] November 05, 2022 10:17 AM [facility] TELEPHONIC OUTREACH Provider Action/FYI: CHF/ CKD: Called [...] November 04, 2022 9:39 AM INSIGHT [facility] TELEPHONIC OUTREACH Provider Action/FYI: Called Pt left a message to verify symptom status and needs. Instructed to call PCP with any symptom or condition changes. Contact made with patient: No - Left message Hello my name is Jacquelyn Conley RN your Record Changer from the [facility] I am calling today for your bi-weekly [...] 2022 12:21 PM documented in this encounter [facility] 11-04-2022 Note HNO ID: [id number] Author: Jacquelyn Conley RN Service: ? Author [...] Conley RN November 04, 2022 9:39 AM [facility] 11-03-2022 Note HNO ID: [id number] Author: Cat Chavira MD Service: ? Author Type: Physician Type: Progress Notes Filed: 11/03/2022 6:17 PM Note Text: [facility] KIDNEY MEDICINE [facility] SERVICE DATE: 11/03/2022 [...] of Left Shoulder Coronary Artery Disease Involving [place] Coronary Artery of [place] Heart Without Angina Pectoris S/P Cabg (Coronary [...] Diastolic Heart Failure (Hcc) MEDICATIONS: Lacto 21-Bifido 7-J-R4-B6-B12 (UP4 PROBIOTICS MEN'S) 50 billion cell -90 [...] Tablet Every Wednesday, Wednesday, and Wednesday) Coenzyme V36-Kthammh E 100-100 mg capTake by mouth.Disp: Rfl: [...] by mouth once daily.Disp: 30 tabletRfl: 0 Xjblr-1-FLY-EPA-Fish Oil 1,000 mg (120 mg-180 mg) capTake [...] No sig reported) (more content not included)... [facility] 11-03-2022 History of Present illness Narrative [facility] KIDNEY MEDICINE [facility] SERVICE DATE: 11/03/2022 [...] of Left Shoulder Coronary Artery Disease Involving [place] Coronary Artery of [place] Heart Without Angina Pectoris S/P Cabg (Coronary [...] Diastolic Heart Failure (Hcc) MEDICATIONS: Lacto 21-Bifido 3-J-D0-B6-B12 (UP4 PROBIOTICS MEN'S) 50 billion cell -90 [...] Tablet Every Wednesday, Wednesday, and Wednesday) Coenzyme C86-Tvfpkbx E 100-100 mg cap^Take by mouth.^Disp: ^Rfl: [...] by mouth once daily.^Disp: 30 tablet^Rfl: 0 Scdtd-9-LFN-EPA-Fish Oil 1,000 mg (120 mg-180 mg) cap^Take [...] Upset Norvasc [Amlodipine* Other: See Comments Dizziness Wrhxkxf-Qno-Otx Red* Other: See Comments myalgia Lisinopril Cough [...] 07/28/2022 6.0 5.0 - 8.0 Final Specific [place], Ur Date Value Ref Range Status 07/28/2022 [...] Staff, Department of Kidney Medicine Pager # [phone] 11/03/22 3:09 PM CC: PRIMARY CARE PHYSICIAN: Arnold Spencer MD documented in this encounter [facility] 11-02-2022 Note HNO ID: [id number] Author: Jacquelyn Conley RN Service: ? Author Type: Registered Nurse Type: Progress Notes Filed: 11/05/2022 10:38 AM Note Text: INSIGHT CDM TELEPHONIC OUTREACH Provider Action/FYI: Called Pt left a message to verify symptom status and needs. Instructed to call PCP with any symptom or condition changes. Contact made with patient: No - Left message Hello my name is Jacquelyn Conley RN your Record Changer from the [facility] I am calling today for your bi-weekly check in. I am sorry I missed your call. I will reach out to you again tomorrow. (if the third call I will reach out to you again next week) Enter next patient outreach date for the following day using the Track Pt Outreach. End outreach. Jacquelyn Conley RN November 02, 2022 12:21 PM [facility] 11-02-2022 Note Patient Outreach (AM BCM[facility]) DARCY COVARRUBIAS ([id number]) 1935 M T Date Time Provider Department 11/02[facility]22 [facility] today, we recorded the following information about you: Jacquelyn Conley RN 11/05/2022 10:38 AM Signed [employer] [facility] TELEPHONIC OUTREACH Provider Action/FYI: Called Pt left a message to verify symptom status and needs. Instructed to call PCP with any symptom or condition changes. Contact made with patient: No - Left message Iva my name is Jacquelyn Conley RN your Record Changer from the [facility] I am calling today for your bi-weekly [...] Jacquelyn Conley RN 11/05/2022 10:38 AM Signed [employer] [facility] TELEPHONIC OUTREACH Provider Action/FYI: CHF/ CKD: Called [...] Jacquelyn Conley RN 11/05/2022 10:38 AM Signed [employer] [facility] TELEPHONIC OUTREACH Provider Action/FYI: Spk with Pt, [...] like to speak with a social work steamer tender to help give you support for any [...] you up for automated weekly questionnaires through [employer]. This is an easy way for us [...] See Comments Comments: (more content not included)... [facility] 10-14-2022 Miscellaneous Notes The following approved medication [...] Blanquita Mireles RN documented in this encounter [facility] 10-09-2022 Miscellaneous Notes Patient has been identified [...] you. Dorothy Navarrete documented in this encounter [facility] 09-29-2022 History of Present illness Narrative RADHA [...] is receiving Physical Therapy 2x week at [facility] in [place] BP 118-120/80, wt 150 lbs Gastroenterology Appt 10/06/22 Coco Singh at [facility] ADL/ Falls/ Goals completed Contact made [...] like to speak with a social work steamer tender to help give you support for any [...] you up for automated weekly questionnaires through [employer]. This is an easy way for us [...] 2022 9:36 AM documented in this encounter [facility] 08-28-2022 History of Present illness Narrative Verified [...] Partha Santana PA-C documented in this encounter [facility] 08-28-2022 History of Present illness Narrative INSIGHT [...] like to speak with a social work steamer tender to help give you support for any [...] you up for automated weekly questionnaires through [employer]. This is an easy way for us [...] 2022 11:52 AM documented in this encounter [facility] 08-19-2022 History of Present illness Narrative Nephrology [...] Staff, Department of Kidney Medicine Pager # [phone] 08/19/22 5:36 PM documented in this encounter [facility] 08-11-2022 Miscellaneous Notes Pts called and is notified of providers message. Pt voices understanding, Pts will call and schedule appointment with Dr Fox. Orders, most recent OV, and most recent labs were sent to Dr Fox at [phone]. Araceli Hassan RN Patient's calls is asking if patient can have a match up worker referral. Patient was seen at Dr. Ortega and nurse practitioner suggested that patient have a referral for a match up worker due to patient's chronic diarrhea. asking for referral. Please review and advise, Mary Hogan RN documented in this encounter [facility] 08-10-2022 Miscellaneous Notes Pt's called and states [...] Ivana Roberts LPN documented in this encounter [facility] 08-07-2022 History of Present illness Narrative INSIGHT CDM TELEPHONIC OUTREACH Provider Action/FYI: Routed updates to Dr. Spencer/ 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 CNP . Pt and are requesting a call to them directly with a Gastroenterology referral. Spk with Pt, he noted was diagnosed with Covid, Admitted 07/13/22 to [facility] due to dehydration. Pt denies current Sob, wheezing, coughing or edema, BP 117/68, wt 148 lbs, he is speaking in full sentences, no respiratory distress. Pt and is asking for a Gastroenterology referral for Acid reflux and intermittent diarrhea for past 4 months. noted he was checked for and negative for C-Diff at [facility]. Pt completed Appt 08/04/[address] Oquendos / Monik Gilbert OPTICAL MODEL MAKER AND TESTER, Echo is scheduled 08/17/22 at [facility], Deirdre noted Cardiology stated Joseph may [...] like to speak with a social work steamer tender to help give you support for any [...] you up for automated weekly questionnaires through [employer]. This is an easy way for us [...] 2022 11:41 AM documented in this encounter [facility] 08-04-2022 Miscellaneous Notes Faxed Ordered, please print and fax Enid Marie APRN.SB Wanting a referral to [facility] for physical therapy. Lindsey Gómez LPN documented in this encounter [facility] 07-31-2022 Instructions Cat Chavira MD - 07/31/2022 [...] in 3 months documented in this encounter [facility] 07-31-2022 History of Present illness Narrative [facility] KIDNEY MEDICINE [facility] SERVICE DATE: 07/31/2022 [...] exam Interval hx: Pt was admitted to [facility] July 13 through July 15 with progressively [...] Diarrhea has also improved (he states that [place]ian cheese helps him with that). He is continued on torsemide 10 mg daily, compliant with medication. 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 Paroxysmal Atrial Fibrillation (Hcc) Carotid Stenosis, Asymptomatic Hyperglycemia Anemia of Chronic Disease Ckd (Chronic Kidney Disease), Stage Iii (Hcc) Lumbar Spinal 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 ([facility]) Non-Rheumatic Mitral Regurgitation Acute Idiopathic Gout [...] pounds or more/1week^Disp: 30 tablet^Rfl: 1 Coenzyme K12-Gderanu E 100-100 mg cap^Take by mouth.^Disp: ^Rfl: [...] by mouth once daily.^Disp: 30 tablet^Rfl: 0 Ccppl-6-FKM-EPA-Fish Oil 1,000 mg (120 mg-180 mg) cap^Take [...] Upset Norvasc [Amlodipine* Other: See Comments Dizziness Ogmtlln-Tdh-Xeu Red* Other: See Comments myalgia Lisinopril Cough [...] 07/28/2022 6.0 5.0 - 8.0 Final Specific [place], Ur Date Value Ref Range Status 07/28/2022 [...] Staff, Department of Kidney Medicine Pager # [phone] 07/30/22 8:53 PM CC: PRIMARY CARE PHYSICIAN: Arnold Spencer MD documented in this encounter [facility] 2022 Miscellaneous Notes Pt and called and notified of providers results and instructions. They voice understanding. Araceli Hassan RN Labs show creatinine improved. Potassium improved. BUN elevated. Recommend sufficient fluid intake and one torsemide daily today and tomorrow, then adjust according to management trainee program stores recommendations. Glucose elevated, will check A1c with [...] (L) 31 (L) documented in this encounter [facility] 07-28-2022 History of Present illness Narrative Images from the original note were not included. [facility] [...] pounds or more/1week^Disp: 30 tablet^Rfl: 1 Coenzyme G21-Emyarnz E 100-100 mg cap^Take by mouth.^Disp: ^Rfl: [...] ^Rfl: (Patient not taking: No sig reported) Kypmr-1-SUH-EPA-Fish Oil 1,000 mg (120 mg-180 mg) cap^Take [...] Appointment with Partha. documented in this encounter [facility] 07-21-2022 Instructions 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 APRN.HOME FURNISHINGS SALES REPRESENTATIVE - 07/21/2022 3:36 PM EDT Take torsemide 10 mg daily. Take an additional 10 mg dose if leg swelling, shortness of breath or 3 pound or greater weight gain. Take potassium once daily while taking torsemide documented in this encounter [facility] 07-21-2022 History of Present illness Narrative Transitional [...] s visit. HPI: He was admitted to [facility] July 13 through July 15 with progressively worsening shortness of breath for several weeks prior to arrival along with chest discomfort. Recent echocardiogram at [facility] showed ejection fraction of 20%, severe global hypokinesis, 1-2+ eccentric mitral regurgitation, RVSP 44 mmHg. 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 He was treated with Lasix 40 mg IV twice daily while hospitalized. 1500 mL fluid restriction. Daily weights. Kidney and electrolyte monitoring. Followed by [place] [facility], . He was seen by [...] and magnesium advised. Advised to follow-up with management trainee program stores and tenant coordinator. Advised to follow-up with urologist Dr. Douglas. [...] immunization - ICD9: V03.89, ICD10: Z23 - PFI[employer]ER-[employer] COVID-19 BIVALENT BOOSTER VACCINE, AGE 12+ YR [...] 2022 12:59 PM documented in this encounter [facility] 07-17-2022 History of Present illness Narrative INSIGHT [...] 2022 2:01 PM documented in this encounter [facility] 07-16-2022 History of Present illness Narrative TRANSITION CARE MANAGEMENT (TCM) INITIAL CONTACT Patternmaker Grader Outreach Provider Action/FYI: TCM Initial contact with patient post discharge, spoke to spouse. Patient identified by name and . TRANSITION CARE MANAGEMENT INITIAL OUTREACH DOCUMENTATION: Date of Outreach: 07/16/2022 Outreach Attempt 1: Contact Made Date of Discharge 07/15/2022 Some recent data might be hidden SUMMARY: -Pt discharged from [facility] on 07/15/22. -Admitted for: chest pain [...] pt spironolactone since the torsemide was increased. [facility] did not have spironolactone on pts discharge med list. Were any of your medications discontinued? No Do you have any questions about getting or taking your medications? Yes she will review at 07/21/22 appt with [employer]PER[employer]. She has also reached out to the management trainee program stores to get a sooner appt since pt [...] stay with [facility]. documented in this encounter [facility] 07-16-2022 Miscellaneous Notes Joseph's Deirdre called saying after the appointment on 07/10 Joseph ended up in the hospital. When he was released they suggested that he come and see you within 2 weeks but you have no appointments until August. would like for you to call. [phone]. Patient was admitted to [facility] in [place]. documented in this encounter [facility] 07-10-2022 Instructions Cat Chavira MD - 07/10/2022 [...] for further instruction. Please, follow with your tenant coordinator at your closest convenience Follow up in 2-3 months with blood test prior to your appt documented in this encounter [facility] 07-10-2022 History of Present illness Narrative [facility] KIDNEY MEDICINE [facility] SERVICE DATE: 07/10/2022 [...] 2 Sprays in the nose once daily. [place] [facility]^Disp: ^Rfl: cyanocobalamin (VITAMIN B-12) 1,000 mcg tab^Take 1 tablet by mouth once daily.^Disp: 30 tablet^Rfl: 0 Bgewx-4-BVT-EPA-Fish Oil 1,000 mg (120 mg-180 mg) cap^Take [...] Upset Norvasc [Amlodipine* Other: See Comments Dizziness Kfsacea-Djw-Pak Red* Other: See Comments myalgia Lisinopril Cough [...] 06/14/2015 6.5 5.0 - 8.0 Final Specific [place], Ur Date Value Ref Range Status 06/14/2015 [...] Calcium, Total (mg/dL) Date Value 07/06/2022 9.2 [facility] Cardiovascular Services [address] [place] [address] Echo Complete 03/27/22 0808 MR#: [id number] Acct: [id number] Name: DARCY COVARRUBIAS Rep #:[id number] : 1935 86 From: Destin Harvey MD Attending Dr: Dr. Destin Harvey MD S tatus: REG CLI Ordering Dr: Destin Harvey MD Date: 01/13 Location: [facility] Sex: M C Admitted: Reason For Study: [...] Transcribed: 03/27/22 110 Kidney and Bladder MR#: [id number] Acct: [id number] Name: DARCY COVARRUBIAS Rep #: [id number] : 1935 M 86 From: [facility] katya [place] PCP: Dr. Arnold Spencer MD Status: AD M IN Study:Kidney and Bladder Date of Exam: 0 05/09/22 Exam# [id number] Ordering Dr: Yisel Pablo MD STUDY: RENAL [...] 21:29 EDT Reading Location ID and State: [address] [place] [address] Tel [phone], Service support , ASSESSMENT: 86 year old male who presents with impaired kidney function. Encounter Diagnosis ICD-10-CM 1. Chronic combined systolic and diastolic congestive heart failure ([facility]) I50.42 NT PRO BNP torsemide (DEMADEX) 10 mg tablet RENAL FUNCTION PANEL DISCONTINUED: furosemide (LASIX) 20 mg tablet 2. MARCOS (acute kidney injury) ([facility]) N17.9 NT PRO BNP URINALYSIS, WITH MICROSCOPIC PROTEIN CREATININE RATIO ALBUMIN/CREAT RATIO RND UR MONOCLONAL PROTEIN, SERUM (BLOOD) US KIDNEY/BLADDER torsemide (DEMADEX) 10 mg tablet RENAL FUNCTION PANEL 3. Hydronephrosis, unspecified hydronephrosis type N13.30 US KIDNEY/BLADDER 4. Edema, unspecified type R60.9 5. Chronic combined systolic and diastolic CHF (congestive heart failure) ([facility]) I50.42 6. Diarrhea, unspecified type R19.7 PLAN: [...] started. Patient is still follow-up with his tenant coordinator at his closest convenience -RTC in 2 [...] Staff, Department of Kidney Medicine Pager # [phone] 07/10/22 4:16 PM CC: REFERRING PROVIDER: [facility] PRIMARY CARE PHYSICIAN: Arnold Spencer MD documented in this encounter [facility] 06-23-2022 Instructions 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 APRN.CNS - 06/23/2022 2:53 PM EDT Check labs today Decrease or discontinue your dose of fiber for now to see if decreases number of bowel movements. Stay on lasix for one month documented in this encounter [facility] 06-23-2022 History of Present illness Narrative SUBJECTIVE: [...] last here he has been seen by [place] [facility]. His metoprolol was discontinued and he was started on carvedilol 25 mg twice daily by the tenant coordinator. Stress test and echocardiogram was ordered. He was admitted to [facility] emergency department with a complaint of [...] nephrology in 1 to 2 weeks. Notes management trainee program stores ordered labs. Follow-up lab work: yesterday; not viewable in epic Will be seeing Sheri Word Processor Technician, not CC provider. Was taking sodium bicarb [...] Upset Norvasc [Amlodipine* Other: See Comments Dizziness Utxdtij-Obi-Ifl Red* Other: See Comments myalgia Lisinopril Cough [...] Sprays in the nose once daily. [facility] [facility]^Disp: ^Rfl: cyanocobalamin (VITAMIN B-12) 1,000 mcg [...] for wheezing/shortness of breath.^Disp: 6.7 g^Rfl: 0 Bfuce-9-IIS-EPA-Fish Oil (FISH OIL) 1,000 mg (120 mg-180 [...] 4.00 k/uL 1.25 0.94 (L) 0.96 (L) [place]% % 9.1 10.6 11.6 Abs [place] <0.87 k/uL 0.56 0.55 0.68 Eosin% % [...] 4 - Moderate\ documented in this encounter [facility] 06-18-2022 Miscellaneous Notes Patient's notified of results [...] Please advise . documented in this encounter [facility] 06-15-2022 History of Present illness Narrative done [...] and patient's preferred method of contact (telephone, [employer], Envia Lá), your name, your contact number. Informed patient [...] 2022 1:36 PM documented in this encounter [facility] 06-15-2022 History of Present illness Narrative Virtualist Distance Health Note (Community monitoring/CC HC/H@[facility] escalations) Adult seen for Monitoring Track: Chronic Disease Management Contacted by phone, [employer], Envia Lá, Adriom, Doxim[employer], other: phone History of present illness: [...] in as Primary Virtualist, Secondary Virtualist, or [facility] Telehealth provider: Primary SIGNATURE: Carine Faria MD PATIENT NAME: Darcy Covarrubias DATE: June 15, 2022 documented in this encounter [facility] 06-05-2022 History of Present illness Narrative This note was created using [employer]. Subjective Darcy Covarrubias is a 86 year [...] 2 Sprays in the nose once daily. [place] [facility] cyanocobalamin (VITAMIN B-12) 1,000 mcg tab Take 1 tablet by mouth once daily. Bsizc-4-DUG-EPA-Fish Oil (FISH OIL) 1,000 mg (120 mg-180 [...] re-evaluation as needed. Also, follow up with tenant coordinator if ongoing issues with leg swelling, or [...] Arnold Spencer MD documented in this encounter [facility] 05-29-2022 History of Present illness Narrative INSIGHT CDM TELEPHONIC OUTREACH Provider Action/FYI: Call to Pt left a message to verify CHF/ CKD or other symptoms or needs. Contact made with patient: No - Left message Hello my name is Jacquelyn Conley RN your Record Changer from the [facility] I am calling today for your bi-weekly [...] 2022 1:21 PM documented in this encounter [facility] 05-26-2022 History of Present illness Narrative Transitional Care Management Progress Note The patients TCM visit was performed within the 14 days of discharge. Patient's Date of discharge: May 13 Date of initial coordinator contact after discharge: May 15 Discharge diagnosis: Acute COVID 19, acute kidney injury Medication review completed yes 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 APRN.HOME FURNISHINGS SALES REPRESENTATIVE Provider Documentation: In follow-up of hospitalization, Darcy [...] HPI: He was admitted to [facility] emergency department with a complaint of [...] nephrology in 1 to 2 weeks. Notes management trainee program stores ordered labs. Follow-up lab work: yesterday; not viewable in epic Will be seeing Sheri Word Processor Technician, not CC provider. Was taking sodium bicarb [...] ICD9: 276.8, ICD10: E87.6 Labs ordered through management trainee program stores today will be having a phone visit with tomorrow for follow-up. [facility] 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 APRN.CNS May 26, 2022 8:30 AM documented in this encounter [facility] 05-15-2022 History of Present illness Narrative noted TRANSITION CARE MANAGEMENT (TCM) INITIAL CONTACT Patternmaker Grader Outreach Provider Action/FYI: TCM Initial contact with patient post discharge, spoke to spouse. Patient identified by name and . TRANSITION CARE MANAGEMENT INITIAL OUTREACH DOCUMENTATION: Date of Outreach: 05/15/2022 Outreach Attempt 1: Contact Made Date of Discharge 05/13/2022 Some recent data might be hidden SUMMARY: -Pt discharged from [facility] on 05/13/22. -Admitted for: acute kidney injury, acute COVID Do you have a hospital follow up appointment with your PCP? Appointment on 05/26/22 with 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 [employer]PER[employer]. Yes. Remind patient of appointment date, time, [...] up with nephrology documented in this encounter [facility] 05-15-2022 Miscellaneous Notes Info relayed to pts [...] to the hospital. documented in this encounter [facility] 05-12-2022 History of Present illness Narrative INSIGHT CD TELEPHONIC OUTREACH Provider Action/FYI: Updates routed to Dr. Spencer [facility] 05/07/22 Diarrhea, MARCOS ( C-Diff) treated [...] like to speak with a social work steamer tender to help give you support for any [...] you up for automated weekly questionnaires through [employer]. This is an easy way for us [...] 2022 8:14 AM documented in this encounter [facility] 05-08-2022 Miscellaneous Notes noted Patient's calls and [...] would recommend a visit either with his tenant coordinator or us for recheck. Pts called in [...] building for a while now. PCP and Producer Director have been trying to change medications around to see if that would help. Producer Director took him off of Metoprolol and Losartan (04/01), and put him on Entresto 49-51 twice a day. Med list has been updated. is worried about and called pharmacy and they said they didn't see anything on his med list that should be causing him to be so tired, and told her to call PCP. Please call and advise. documented in this encounter [facility] 05-07-2022 Miscellaneous Notes His carotid ultrasound looks good. No significant change. If he is doing well, would recommend repeating ultrasound in 6 months Patient called and informed Encounter closed Joseph had testing done today and would like to be called on his home phone, with results. documented in this encounter [facility] 04-10-2022 History of Present illness Narrative INSIGHT [...] like to speak with a social work steamer tender to help give you support for any [...] you up for automated weekly questionnaires through [employer]. This is an easy way for us [...] 2022 10:39 AM documented in this encounter [facility] 03-26-2022 History of Present illness Narrative INSIGHT CDM TELEPHONIC OUTREACH Provider Action/FYI: Routed updates to Dr. Spencer and 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 Spangelito with Deirdre she noted Joseph has mild intermittent Sob with exertion, climbing the steps at [employer], He completed 03/06/[address] Harvey Cardiology, is scheduled 03/27/22 for a stress Test and Echo at [facility]. BP 126/80, wt 150 lbs Contact [...] like to speak with a social work steamer tender to help give you support for any [...] you up for automated weekly questionnaires through [employer]. This is an easy way for us [...] 2022 4:19 PM documented in this encounter [facility] 03-19-2022 History of Present illness Narrative INSIGHT [facility] TELEPHONIC OUTREACH Provider Action/FYI: Call to Pt, left a message, related to CHF/ CKD symptom status and needs. Contact made with patient: No - Left message Hello my name is Jacquelyn Conley RN your Record Changer from the [facility] I am calling today for your bi-weekly [...] 2022 4:47 PM documented in this encounter [facility] 03-18-2022 History of Present illness Narrative INSIGHT [facility] TELEPHONIC OUTREACH Provider Action/FYI: Call to Pt left a message to verify CHF/ CKD symptom status, and needs. Contact made with patient: No - Left message Hello my name is Jacquelyn Conley RN your Record Changer from the [facility] I am calling today for your bi-weekly [...] 2022 3:18 PM documented in this encounter [facility] 03-16-2022 History of Present illness Narrative INSIGHT [facility] TELEPHONIC OUTREACH Provider Action/FYI: Call to Pt, left a message, related to CHF/ CKD symptom status and needs. Contact made with patient: No - Left message Iva my name is Jacquelyn Conley RN your Record Changer from the [facility] I am calling today for your bi-weekly [...] 2022 4:20 PM documented in this encounter [facility] 03-10-2022 History of Present illness Narrative SUBJECTIVE: [...] history. Has been seen by Dr. Lanza, tenant coordinator [place] April 2021. At that visit he [...] help too much. Did have a spine photographic equipment assembler reported to lasted a few days and [...] for follow-up visit having been seen at [facility] emergency department yesterday, January 05, 2022 [...] was unable to get into see a tenant coordinator with [facility] locally so he made an appointment with [facility]. Since last here he has been seen by [facility]. His metoprolol was discontinued and he was started on carvedilol 25 mg twice daily by the tenant coordinator. Stress test and echocardiogram was ordered. Without [...] Upset Norvasc [Amlodipine* Other: See Comments Dizziness Fnhxtzl-Has-Ikb Red* Other: See Comments myalgia Lisinopril Cough [...] in the nose once daily. [facility] E[facility] Zxeqa-8-FZC-EPA-Fish Oil (FISH OIL) 1,000 mg (120 mg-180 [...] 4.00 k/uL 1.25 0.94 (L) 0.96 (L) [place]% % 9.1 10.6 11.6 Abs [place] <0.87 k/uL 0.56 0.55 0.68 Eosin% % [...] difference for him. He will follow with [facility] now. Echocardiogram stress test has been ordered and is being completed at [facility]. 2. S/P CABG (coronary artery bypass graft) - ICD9: V45.81, ICD10: Z95.1 3. Essential hypertension - ICD9: 401.9, ICD10: I10 controlled Della Pnieda APRN.CNS Medical Decision Making: Problems: Moderate: 1+ chronic illnesses with change Data: Unique test result(s) reviewed: 2 Medical Decision Making Level: 3 - Low \ documented in this encounter [facility] 03-06-2022 History of Present illness Narrative [facility] TELEPHONIC OUTREACH Provider Action/FYI: Call to Pt, left a message, related to CHF/ CKD symptom status and needs. Contact made with patient: No - Left message Hello my name is Jacquelyn Conley RN your Record Changer from the [facility] I am calling today for your bi-weekly [...] March 06, 2022 10:09 AM [facility] TELEPHONIC OUTREACH Provider Action/FYI: Call to Pt [...] 2022 9:36 AM documented in this encounter [facility] 02-12-2022 Miscellaneous Notes Last seen SUPERVISOR LABOR GANG 01/13/22 Next appt 03/10/22 Patient has been identified by name and date of : Yes Pending Prescriptions Disp Refills LOSARTAN 50 MG TABLET 90 tablet 3 Sig: Take 1 tablet by mouth once daily. ANASTASIYA: No RX INSTRUCTIONS: Patient aware RX will be sent to pharmacy. No need to notify patient. Tish Duran documented in this encounter [facility] 02-03-2022 History of Present illness Narrative INSIGHT [...] like to speak with a social work steamer tender to help give you support for any [...] you up for automated weekly questionnaires through [employer]. This is an easy way for us [...] 2022 10:43 AM documented in this encounter [facility] documented as of this encounter (statuses as of 02/09/2023) [facility] of Past illness Narrative* Problem Noted [...] of this encounter (statuses as of 03/01/2023) [facility] Narrative* Problem Noted [...] of this encounter (statuses as of 03/05/2023) [facility] Narrative* Problem Noted [...] of this encounter (statuses as of 04/02/2023) [facility] Narrative* Problem Noted [...] of this encounter (statuses as of 05/06/2023) [facility] N[facility]ative* Problem Noted [...] of this encounter (statuses as of 05/16/2023) [facility] Narrative* Problem Noted [...] of this encounter (statuses as of 06/05/2023) [facility] Narrative* Problem Noted [...] of this encounter (statuses as of 06/22/2023) [facility] N[facility]ative* Problem Noted [...] of this encounter (statuses as of 07/17/2023) [facility] Narrative* Problem Noted [...] of this encounter (statuses as of 08/10/2023) [facility] Narrative* Problem Noted [...] of this encounter (statuses as of 08/10/2023) [facility] Past [facility] Narrative* Problem Noted [...] of this encounter (statuses as of 02/03/2022) [facility] Narrative* Problem Noted [...] of this encounter (statuses as of 02/12/2022) [facility] Narrative* Problem Noted [...] of this encounter (statuses as of 03/06/2022) [facility] Narrative* Problem Noted [...] of this encounter (statuses as of 03/10/2022) [facility] N[facility]ative* Problem Noted [...] of this encounter (statuses as of 03/13/2022) [facility] N[facility]ative* Problem Noted [...] of this encounter (statuses as of 03/13/2022) [facility] N[facility]ative* Problem Noted [...] of this encounter (statuses as of 03/18/2022) [facility] N[facility]ative* Problem Noted [...] of this encounter (statuses as of 03/19/2022) [facility] N[facility]ative* Problem Noted [...] of this encounter (statuses as of 03/19/2022) [facility] N[facility]ative* Problem Noted [...] of this encounter (statuses as of 03/26/2022) [facility] N[facility]* Problem Noted [...] of this encounter (statuses as of 04/10/2022) [facility] N[facility]* Problem Noted [...] of this encounter (statuses as of 05/07/2022) [facility] N[facility]* Problem Noted [...] of this encounter (statuses as of 05/08/2022) [facility] N[facility]ative* Problem Noted [...] of this encounter (statuses as of 05/12/2022) [facility] N[facility]ative* Problem Noted [...] of this encounter (statuses as of 05/15/2022) [facility] N[facility]ative* Problem Noted [...] of this encounter (statuses as of 05/15/2022) [facility] N[facility]ative* Problem Noted [...] of this encounter (statuses as of 05/26/2022) [facility] N[facility]ative* Problem Noted [...] of this encounter (statuses as of 05/29/2022) [facility] N[facility]* Problem Noted [...] of this encounter (statuses as of 06/15/2022) [facility] N[facility]ative* Problem Noted [...] of this encounter (statuses as of 06/15/2022) [facility] N[facility]* Problem Noted [...] of this encounter (statuses as of 06/18/2022) [facility] N[facility]* Problem Noted [...] of this encounter (statuses as of 06/23/2022) [facility] N[facility]* Problem Noted [...] of this encounter (statuses as of 07/11/2022) [facility] N[facility]* Problem Noted [...] of this encounter (statuses as of 07/16/2022) [facility] N[facility]* Problem Noted [...] of this encounter (statuses as of 07/17/2022) [facility]* Problem Noted [...] of this encounter (statuses as of 07/21/2022) [facility]* Problem Noted [...] of this encounter (statuses as of 07/22/2022) [facility]* Problem Noted [...] of this encounter (statuses as of 07/28/2022) [facility] N[facility]* Problem Noted [...] of this encounter (statuses as of 2022) [facility] N[facility]* Problem Noted [...] of this encounter (statuses as of 07/31/2022) [facility] N[facility]* Problem Noted [...] of this encounter (statuses as of 08/03/2022) [facility]* Problem Noted [...] of this encounter (statuses as of 08/04/2022) [facility]* Problem Noted [...] of this encounter (statuses as of 08/07/2022) [facility]* Problem Noted [...] of this encounter (statuses as of 08/10/2022) [facility] N[facility]* Problem Noted [...] of this encounter (statuses as of 08/11/2022) [facility]* Problem Noted [...] of this encounter (statuses as of 08/15/2022) [facility]* Problem Noted [...] of this encounter (statuses as of 08/19/2022) [facility]* Problem Noted [...] of this encounter (statuses as of 08/28/2022) [facility]* Problem Noted [...] of this encounter (statuses as of 08/28/2022) [facility]* Problem Noted [...] of this encounter (statuses as of 09/30/2022) [facility]* Problem Noted [...] of this encounter (statuses as of 10/09/2022) [facility]* Problem Noted [...] of this encounter (statuses as of 10/16/2022) [facility] N[facility]* Problem Noted [...] of this encounter (statuses as of 11/04/2022) [facility] N[facility]* Problem Noted [...] of this encounter (statuses as of 11/05/2022) [facility] N[facility]* Problem Noted [...] of this encounter (statuses as of 11/20/2022) [facility] N[facility]* Problem Noted [...] of this encounter (statuses as of 11/20/2022) [facility] N[facility]* Problem Noted [...] of this encounter (statuses as of 11/24/2022) [facility] N[facility]* Problem Noted [...] of this encounter (statuses as of 12/04/2022) [facility]* Problem Noted [...] of this encounter (statuses as of 12/05/2022) [facility] N[facility]* Problem Noted [...] of this encounter (statuses as of 12/08/2022) [facility] N[facility]* Problem Noted [...] of this encounter (statuses as of 01/07/2023) [facility] N[facility]* Problem Noted [...] of this encounter (statuses as of 01/08/2023) [facility] Diagnosis Congestive heart failure, unspecified HF chronicity, unspecified heart failure type (HCC)- Primary 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 Essential hypertension Unspecified essential hypertension [facility] Diagnosis Bradycardia Other specified cardiac dysrhythmias [facility] Diagnosis Bilateral carotid artery stenosis- Primary Occlusion and stenosis of carotid artery without mention of cerebral infarction [facility] Diagnosis COVID-19- Primary MARCOS (acute kidney injury) (HCC) Acute kidney failure, unspecified Hypokalemia Hypopotassemia [facility] Diagnosis Peripheral edema- Primary Edema Cough, unspecified type [facility] Leg swelling- Primary Swelling of limb MARCOS (acute kidney injury) (HCC) Acute kidney failure, unspecified 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 Essential hypertension Unspecified essential hypertension 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 [facility] Diagnosis 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 Chronic combined systolic and diastolic heart failure MARCOS (acute kidney injury) (HCC) Acute kidney failure, unspecified Hydronephrosis, unspecified hydronephrosis type Edema, unspecified type Chronic combined systolic and diastolic CHF (congestive heart failure) (HCC) Chronic combined systolic and diastolic heart failure Diarrhea, unspecified type [facility] Diagnosis MARCOS (acute kidney injury) (HCC)- Primary Acute kidney failure, unspecified [facility] Diagnosis Acute on chronic systolic CHF [...] kidney failure, unspecified [facility] Diagnosis 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 [facility] Diagnosis Elevated glucose- Primary Other abnormal glucose [facility] Diagnosis MARCOS (acute kidney injury) (HCC)- Primary Acute kidney failure, unspecified Edema, unspecified type Hydronephrosis, unspecified hydronephrosis type Essential hypertension Unspecified essential hypertension 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 Gout with other specified manifestations [facility] Diagnosis Chronic cough- Primary Cough LPRD (laryngopharyngeal reflux disease) Other diseases of larynx Leg swelling Swelling of limb Collagenous colitis Other and unspecified noninfectious gastroenteritis and colitis Personal history of COVID-19 Essential hypertension Unspecified essential hypertension 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 [facility]* Diagnosis 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 Spinal stenosis, lumbar region, with neurogenic claudication Osteoarthritis of spine with radiculopathy, lumbar region [facility] Diagnosis MARCOS (acute kidney injury) (HCC)- Primary Acute kidney failure, unspecified Hypomagnesemia Disorders of magnesium metabolism Edema, unspecified type Heart failure, unspecified HF chronicity, unspecified heart failure type (HCC) [facility] Diagnosis 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- Primary Benign prostatic hyperplasia with urinary retention [facility] Diagnosis Stage 3b chronic kidney disease (HCC)- Primary Essential hypertension Unspecified essential hypertension 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 Hydronephrosis, unspecified hydronephrosis type Edema, unspecified type Diarrhea, unspecified type [facility] Diagnosis 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 MARCOS (acute kidney injury) (HCC) Acute kidney failure, unspecified documented in this encounter [facility] note* Diagnosis MARCOS (acute kidney injury) (HCC)- Primary Acute kidney failure, unspecified documented in this encounter [facility] note* Diagnosis Hyperuricemia Other abnormal blood chemistry documented in this encounter [facility] note* Diagnosis Essential hypertension- Primary Unspecified essential hypertension Hyperuricemia Other abnormal blood chemistry Mixed hyperlipidemia Stage 3 chronic kidney disease, unspecified whether stage 3a or 3b CKD (HCC) documented in this encounter [facility] note* Diagnosis Acidosis- Primary documented in this encounter [facility] for referral (narrative)* Outpatient Procedure (Routine) - Pending Review Specialty Diagnoses / Procedures Referred By Omi t Referred To Contact [facility] [place] Diagnoses Bilateral carotid artery stenosis Procedures US CAROTID ARTERIES [facility] DUPLEX SCAN EXTRACRANIAL ART COMPL BI STUDY Sharmin Ramesh DO [address] [place] [address] [facility] [address] [address] Referral ID Status Reason Start Date Expiration Date Visits Requested Visits Authorized [id number] Pending Review Auto-Generat ed Referral 05/07/2022 05/07/2023 1 1 [facility] for referral (narrative)* Diagnostic Procedure Only (Routine) - Pending Review Specialty Diagnoses / Procedures Referred By Omi flores Referred To Contact US IMAGING Diagnoses MARCOS (acute kidney injury) (HCC) Hydronephrosis, unspecified hydronephrosis type Procedures US KIDNEY/BLADDER US RETROPERITONEAL REAL TIME W/[place] [address] [place] [address] Us Imaging Referral ID Status Reason Start Date Expiration Date Visits Requested Visits Authorized [id number] Pending Review Auto-Generat ed Referral 07/10/2022 08/09/2023 1 1 [facility] Summary Purpose Family History No Family History Records FoundNo Family History Records FoundNo Family History Records FoundNo Family History Records Found Advance Directives No Advanced Directives Records FoundDocuments on File Type Date Recorded Patient Investigations Manager Expl anation Advance Directive(s) 10/21/2021 2:03 PM Advance Directive(s) 11/29/2018 12:10 PM Documents on File Type Date Recorded Patient Investigations Manager Expl anation Advance Directive(s) 10/21/2021 2:03 PM Advance Directive(s) 11/29/2018 12:10 PM Documents on File Type Date Recorded Patient Investigations Manager Expl anation Advance Directive(s) 10/21/2021 2:03 PM Documents on File Type Date Recorded Patient Investigations Manager Expl anation Advance Directive(s) 10/21/2021 2:03 PM Reason for Referral Specialty Diagnoses / Procedures Referred By Omi flores Referred To Contact Urology Diagnoses 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 Procedures CONSULT TO UROLOGY OFFICE/OUTPATIENT NEW HIGH MDM 60-74 MINUTES 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, PROCESS CHEESE COOKER.HOME FURNISHINGS SALES REPRESENTATIVE [address] [place] [address] Referral ID Status Reason Start Date Expiration Date Visits Requested Visits Authorized [id number] Authorized PCP Requested Referral 07/21/2022 07/21/2023 1 1 Additional Source Comments (unrecognized sect ion and content) No Status Records FoundNo Status Records FoundNo Status Records FoundNo Status Records Found INFORMATION SOURCE (unrecogn ized section and content) DATE CREATED AUTHOR AUTHOR'S ORGANIZ ATION 05/27/2022 [facility] DATE CREATED AUTHOR AUTHOR'S ORGANIZ ATION 12/09/2022 [facility] DATE CREATED AUTHOR AUTHOR'S ORGANIZ ATION 09/29/2023 [facility] Source Comments (unrecognize d section and content) In the event this informatio n is protected by the Federal Confidentiality of Alcohol and Drug Abuse Patient Records regulations: The Federal rules restrict any use of the information to criminally investigate or prosecute any alcohol or drug abuse patient.[facility] the event this information is protected by the Federal Confidentiality of Alcohol and Drug Abuse Patient Records regulations: The Federal rules restrict any use of the information to criminally investigate or prosecute any alcohol or drug abuse patient.[facility] the event this information is protected by the Federal Confidentiality of Alcohol and Drug Abuse Patient Records regulations: The Federal rules restrict any use of the information to criminally investigate or prosecute any alcohol or drug abuse patient.[facility] the event this information is protected by the Federal Confidentiality of Alcohol and Drug Abuse Patient Records regulations: The Federal rules restrict any use of the information to criminally investigate or prosecute any alcohol or drug abuse patient.[facility] the event this information is protected by the Federal Confidentiality of Alcohol and Drug Abuse Patient Records regulations: The Federal rules restrict any use of the information to criminally investigate or prosecute any alcohol or drug abuse patient.[facility] the event this information is protected by the Federal Confidentiality of Alcohol and Drug Abuse Patient Records regulations: The Federal rules restrict any use of the information to criminally investigate or prosecute any alcohol or drug abuse patient.[facility] the event this information is protected by the Federal Confidentiality of Alcohol and Drug Abuse Patient Records regulations: The Federal rules restrict any use of the information to criminally investigate or prosecute any alcohol or drug abuse patient.[facility] the event this information is protected by the Federal Confidentiality of Alcohol and Drug Abuse Patient Records regulations: The Federal rules restrict any use of the information to criminally investigate or prosecute any alcohol or drug abuse patient.[facility] CenterIn the event this information is protected by the Federal Confidentiality of Alcohol and Drug Abuse Patient Records regulations: The Federal rules restrict any use of the information to criminally investigate or prosecute any alcohol or drug abuse patient.[facility] CenterIn the event this information is protected by the Federal Confidentiality of Alcohol and Drug Abuse Patient Records regulations: The Federal rules restrict any use of the information to criminally investigate or prosecute any alcohol or drug abuse patient.[facility] CenterIn the event this information is protected by the Federal Confidentiality of Alcohol and Drug Abuse Patient Records regulations: The Federal rules restrict any use of the information to criminally investigate or prosecute any alcohol or drug abuse patient.[facility] CenterIn the event this information is protected by the Federal Confidentiality of Alcohol and Drug Abuse Patient Records regulations: The Federal rules restrict any use of the information to criminally investigate or prosecute any alcohol or drug abuse patient.[facility] CenterIn the event this information is protected by the Federal Confidentiality of Alcohol and Drug Abuse Patient Records regulations: The Federal rules restrict any use of the information to criminally investigate or prosecute any alcohol or drug abuse patient.[facility] the event this information is protected by the Federal Confidentiality of Alcohol and Drug Abuse Patient Records regulations: The Federal rules restrict any use of the information to criminally investigate or prosecute any alcohol or drug abuse patient.[facility] CenterIn the event this information is protected by the Federal Confidentiality of Alcohol and Drug Abuse Patient Records regulations: The Federal rules restrict any use of the information to criminally investigate or prosecute any alcohol or drug abuse patient.[facility] CenterIn the event this information is protected by the Federal Confidentiality of Alcohol and Drug Abuse Patient Records regulations: The Federal rules restrict any use of the information to criminally investigate or prosecute any alcohol or drug abuse patient.[facility] CenterIn the event this information is protected by the Federal Confidentiality of Alcohol and Drug Abuse Patient Records regulations: The Federal rules restrict any use of the information to criminally investigate or prosecute any alcohol or drug abuse patient.[facility] CenterIn the event this information is protected by the Federal Confidentiality of Alcohol and Drug Abuse Patient Records regulations: The Federal rules restrict any use of the information to criminally investigate or prosecute any alcohol or drug abuse patient.[facility] CenterIn the event this information is protected by the Federal Confidentiality of Alcohol and Drug Abuse Patient Records regulations: The Federal rules restrict any use of the information to criminally investigate or prosecute any alcohol or drug abuse patient.[facility] CenterIn the event this information is protected by the Federal Confidentiality of Alcohol and Drug Abuse Patient Records regulations: The Federal rules restrict any use of the information to criminally investigate or prosecute any alcohol or drug abuse patient.[facility] CenterIn the event this information is protected by the Federal Confidentiality of Alcohol and Drug Abuse Patient Records regulations: The Federal rules restrict any use of the information to criminally investigate or prosecute any alcohol or drug abuse patient.[facility] CenterIn the event this information is protected by the Federal Confidentiality of Alcohol and Drug Abuse Patient Records regulations: The Federal rules restrict any use of the information to criminally investigate or prosecute any alcohol or drug abuse patient.[facility] CenterIn the event this information is protected by the Federal Confidentiality of Alcohol and Drug Abuse Patient Records regulations: The Federal rules restrict any use of the information to criminally investigate or prosecute any alcohol or drug abuse patient.[facility] CenterIn the event this information is protected by the Federal Confidentiality of Alcohol and Drug Abuse Patient Records regulations: The Federal rules restrict any use of the information to criminally investigate or prosecute any alcohol or drug abuse patient.[facility] CenterIn the event this information is protected by the Federal Confidentiality of Alcohol and Drug Abuse Patient Records regulations: The Federal rules restrict any use of the information to criminally investigate or prosecute any alcohol or drug abuse patient.[facility] CenterIn the event this information is protected by the Federal Confidentiality of Alcohol and Drug Abuse Patient Records regulations: The Federal rules restrict any use of the information to criminally investigate or prosecute any alcohol or drug abuse patient.[facility] CenterIn the event this information is protected by the Federal Confidentiality of Alcohol and Drug Abuse Patient Records regulations: The Federal rules restrict any use of the information to criminally investigate or prosecute any alcohol or drug abuse patient.[facility] CenterIn the event this information is protected by the Federal Confidentiality of Alcohol and Drug Abuse Patient Records regulations: The Federal rules restrict any use of the information to criminally investigate or prosecute any alcohol or drug abuse patient.[facility] CenterIn the event this information is protected by the Federal Confidentiality of Alcohol and Drug Abuse Patient Records regulations: The Federal rules restrict any use of the information to criminally investigate or prosecute any alcohol or drug abuse patient.[facility] CenterIn the event this information is protected by the Federal Confidentiality of Alcohol and Drug Abuse Patient Records regulations: The Federal rules restrict any use of the information to criminally investigate or prosecute any alcohol or drug abuse patient.[facility] CenterIn the event this information is protected by the Federal Confidentiality of Alcohol and Drug Abuse Patient Records regulations: The Federal rules restrict any use of the information to criminally investigate or prosecute any alcohol or drug abuse patient.[facility] CenterIn the event this information is protected by the Federal Confidentiality of Alcohol and Drug Abuse Patient Records regulations: The Federal rules restrict any use of the information to criminally investigate or prosecute any alcohol or drug abuse patient.[facility] CenterIn the event this information is protected by the Federal Confidentiality of Alcohol and Drug Abuse Patient Records regulations: The Federal rules restrict any use of the information to criminally investigate or prosecute any alcohol or drug abuse patient.[facility] CenterIn the event this information is protected by the Federal Confidentiality of Alcohol and Drug Abuse Patient Records regulations: The Federal rules restrict any use of the information to criminally investigate or prosecute any alcohol or drug abuse patient.[facility] CenterIn the event this information is protected by the Federal Confidentiality of Alcohol and Drug Abuse Patient Records regulations: The Federal rules restrict any use of the information to criminally investigate or prosecute any alcohol or drug abuse patient.[facility] CenterIn the event this information is protected by the Federal Confidentiality of Alcohol and Drug Abuse Patient Records regulations: The Federal rules restrict any use of the information to criminally investigate or prosecute any alcohol or drug abuse patient.[facility] CenterIn the event this information is protected by the Federal Confidentiality of Alcohol and Drug Abuse Patient Records regulations: The Federal rules restrict any use of the information to criminally investigate or prosecute any alcohol or drug abuse patient.[facility] CenterIn the event this information is protected by the Federal Confidentiality of Alcohol and Drug Abuse Patient Records regulations: The Federal rules restrict any use of the information to criminally investigate or prosecute any alcohol or drug abuse patient.[facility] CenterIn the event this information is protected by the Federal Confidentiality of Alcohol and Drug Abuse Patient Records regulations: The Federal rules restrict any use of the information to criminally investigate or prosecute any alcohol or drug abuse patient.[facility] CenterIn the event this information is protected by the Federal Confidentiality of Alcohol and Drug Abuse Patient Records regulations: The Federal rules restrict any use of the information to criminally investigate or prosecute any alcohol or drug abuse patient.[facility] CenterIn the event this information is protected by the Federal Confidentiality of Alcohol and Drug Abuse Patient Records regulations: The Federal rules restrict any use of the information to criminally investigate or prosecute any alcohol or drug abuse patient.[facility] CenterIn the event this information is protected by the Federal Confidentiality of Alcohol and Drug Abuse Patient Records regulations: The Federal rules restrict any use of the information to criminally investigate or prosecute any alcohol or drug abuse patient.[facility] CenterIn the event this information is protected by the Federal Confidentiality of Alcohol and Drug Abuse Patient Records regulations: The Federal rules restrict any use of the information to criminally investigate or prosecute any alcohol or drug abuse patient.[facility] CenterIn the event this information is protected by the Federal Confidentiality of Alcohol and Drug Abuse Patient Records regulations: The Federal rules restrict any use of the information to criminally investigate or prosecute any alcohol or drug abuse patient.[facility] CenterIn the event this information is protected by the Federal Confidentiality of Alcohol and Drug Abuse Patient Records regulations: The Federal rules restrict any use of the information to criminally investigate or prosecute any alcohol or drug abuse patient.[facility] CenterIn the event this information is protected by the Federal Confidentiality of Alcohol and Drug Abuse Patient Records regulations: The Federal rules restrict any use of the information to criminally investigate or prosecute any alcohol or drug abuse patient.[facility] CenterIn the event this information is protected by the Federal Confidentiality of Alcohol and Drug Abuse Patient Records regulations: The Federal rules restrict any use of the information to criminally investigate or prosecute any alcohol or drug abuse patient.[facility] CenterIn the event this information is protected by the Federal Confidentiality of Alcohol and Drug Abuse Patient Records regulations: The Federal rules restrict any use of the information to criminally investigate or prosecute any alcohol or drug abuse patient.[facility] CenterIn the event this information is protected by the Federal Confidentiality of Alcohol and Drug Abuse Patient Records regulations: The Federal rules restrict any use of the information to criminally investigate or prosecute any alcohol or drug abuse patient.[facility] CenterIn the event this information is protected by the Federal Confidentiality of Alcohol and Drug Abuse Patient Records regulations: The Federal rules restrict any use of the information to criminally investigate or prosecute any alcohol or drug abuse patient.[facility] CenterIn the event this information is protected by the Federal Confidentiality of Alcohol and Drug Abuse Patient Records regulations: The Federal rules restrict any use of the information to criminally investigate or prosecute any alcohol or drug abuse patient.[facility] CenterIn the event this information is protected by the Federal Confidentiality of Alcohol and Drug Abuse Patient Records regulations: The Federal rules restrict any use of the information to criminally investigate or prosecute any alcohol or drug abuse patient.[facility] CenterIn the event this information is protected by the Federal Confidentiality of Alcohol and Drug Abuse Patient Records regulations: The Federal rules restrict any use of the information to criminally investigate or prosecute any alcohol or drug abuse patient.[facility] CenterIn the event this information is protected by the Federal Confidentiality of Alcohol and Drug Abuse Patient Records regulations: The Federal rules restrict any use of the information to criminally investigate or prosecute any alcohol or drug abuse patient.[facility] CenterIn the event this information is protected by the Federal Confidentiality of Alcohol and Drug Abuse Patient Records regulations: The Federal rules restrict any use of the information to criminally investigate or prosecute any alcohol or drug abuse patient.[facility] CenterIn the event this information is protected by the Federal Confidentiality of Alcohol and Drug Abuse Patient Records regulations: The Federal rules restrict any use of the information to criminally investigate or prosecute any alcohol or drug abuse patient.[facility] CenterIn the event this information is protected by the Federal Confidentiality of Alcohol and Drug Abuse Patient Records regulations: The Federal rules restrict any use of the information to criminally investigate or prosecute any alcohol or drug abuse patient.[facility] CenterIn the event this information is protected by the Federal Confidentiality of Alcohol and Drug Abuse Patient Records regulations: The Federal rules restrict any use of the information to criminally investigate or prosecute any alcohol or drug abuse patient.[facility] CenterIn the event this information is protected by the Federal Confidentiality of Alcohol and Drug Abuse Patient Records regulations: The Federal rules restrict any use of the information to criminally investigate or prosecute any alcohol or drug abuse patient.[facility] CenterIn the event this information is protected by the Federal Confidentiality of Alcohol and Drug Abuse Patient Records regulations: The Federal rules restrict any use of the information to criminally investigate or prosecute any alcohol or drug abuse patient.[facility] CenterIn the event this information is protected by the Federal Confidentiality of Alcohol and Drug Abuse Patient Records regulations: The Federal rules restrict any use of the information to criminally investigate or prosecute any alcohol or drug abuse patient.[facility] CenterIn the event this information is protected by the Federal Confidentiality of Alcohol and Drug Abuse Patient Records regulations: The Federal rules restrict any use of the information to criminally investigate or prosecute any alcohol or drug abuse patient.[facility] CenterIn the event this information is protected by the Federal Confidentiality of Alcohol and Drug Abuse Patient Records regulations: The Federal rules restrict any use of the information to criminally investigate or prosecute any alcohol or drug abuse patient.[facility] CenterIn the event this information is protected by the Federal Confidentiality of Alcohol and Drug Abuse Patient Records regulations: The Federal rules restrict any use of the information to criminally investigate or prosecute any alcohol or drug abuse patient.[facility] Reason for Visit (unrecogniz ed section and [...] MDM 60-74 MINUTES 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 APRN.[facility] [address] [place] [address] Referral ID Status Reason Start Date Expiration Date V isits Requested Visits Authorized [id number] Closed PCP Requested Referral 07/21/2022 07/21/2023 1 [...] Question Refill Reason Comments Recheck Reason Comments Record Changer - Other Reason Onset Date Comments Community [...] anot her kidney doctor closer to home ([place], [place]) Reason Onset Date Comments Community Monitoring Outreach 08/06/2023 Care Teams (unrecognized sec tion and content) [employer] Relationship Specialty Start Date End Date Arnold Spencer MD [address] [place] [address] PCP - General Internal Medicine 09/16/21 Jarvis Mcgee, supervisor feed housePicker / Packer Internal Medicine 10/22/21 [employer] Relationship Specialty Start Date End Date Arnold Spencer MD [address] [facility] [place] [address] PCP - General Internal Medicine 09/16/21 Jarvis Mcgee, supervisor feed housePicker / Packer Internal Medicine 10/22/21 [employer] Relationship Specialty Start Date End Date Arnold Spencer MD [address] [facility] [place] [place] [address] PCP - General Internal Medicine 09/16/21 Jarvis Mcgee, supervisor feed housePicker / Packer Internal Medicine 10/22/21 [employer] Relationship Specialty Start Date End Date Arnold Spencer MD [address] [facility] [place] [place] [address] PCP - General Internal Medicine 09/16/21 Jarvis Mcgee, supervisor feed housePicker / Packer Internal Medicine 10/22/21 [employer] Relationship Specialty Start Date End Date Arnold Spencer MD [address] [facility] [place] [place] [address] PCP - General Internal Medicine 09/16/21 Jarvis Mcgee, supervisor feed housePicker / Packer Internal Medicine 10/22/21 [employer] Relationship Specialty Start Date End Date Arnold Spencer MD [address] [facility] [place] [address] PCP - General Internal Medicine 09/16/21 Jarvis Mcgee, supervisor feed housePicker / Packer Internal Medicine 10/22/21 [employer] Relationship Specialty Start Date End Date Arnold Spencer MD [address] [facility] [place] [place] [address] PCP - General Internal Medicine 09/16/21 Jarvis Mcgee, supervisor feed housePicker / Packer Internal Medicine 10/22/21 [employer] Relationship Specialty Start Date End Date Arnold Spencer MD [address] [facility] [place] [place] [address] PCP - General Internal Medicine 09/16/21 Jarvis Mcgee, supervisor feed housePicker / Packer Internal Medicine 10/22/21 [employer] Relationship Specialty Start Date End Date Arnold Spencer MD [address] [facility] [place] [place] [address] PCP - General Internal Medicine 09/16/21 Jarvis Mcgee, supervisor feed housePicker / Packer Internal Medicine 10/22/21 [employer] Relationship Specialty Start Date End Date Arnold Spencer MD [address] [facility] [place] [place] [address] PCP - General Internal Medicine 09/16/21 Jarvis Mcgee, supervisor feed housePicker / Packer Internal Medicine 10/22/21 [employer] Relationship Specialty Start Date End Date Arnold Spencer MD [address] [facility] [place] [place] [address] PCP - General Internal Medicine 09/16/21 Jarvis Mcgee, supervisor feed housePicker / Packer Internal Medicine 10/22/21 [employer] Relationship Specialty Start Date End Date Arnold Spencer MD [address] [facility] [place] [place] [address] PCP - General Internal Medicine 09/16/21 Jarvis Mcgee, supervisor feed housePicker / Packer Internal Medicine 10/22/21 [employer] Relationship Specialty Start Date End Date Arnold Spencer MD [address] [facility] [place] [place] [address] PCP - General Internal Medicine 09/16/21 Jarvis Mcgee, supervisor feed housePicker / Packer Internal Medicine 10/22/21 [employer] Relationship Specialty Start Date End Date Arnold Spencer MD [address] [facility] [place] [place] [address] PCP - General Internal Medicine 09/16/21 Jarvis Mcgee, supervisor feed housePicker / Packer Internal Medicine 10/22/21 [employer] Serv[employer] Relationship Specialty Start Date End Date Arnold Spencer MD [address] [facility] [place] [place] [address] PCP - General Internal Medicine 09/16/21 Jarvis Mcgee, supervisor feed housePicker / Packer Internal Medicine 10/22/21 [employer] Relationship Specialty Start Date End Date Arnold Spencer MD [address] [facility] [place] [place] [address] PCP - General Internal Medicine 09/16/21 Jarvis Mcgee, supervisor feed housePicker / Packer Internal Medicine 10/22/21 [employer] Relationship Specialty Start Date End Date Arnold Spencer MD [address] [facility] [place] [place] [address] PCP - General Internal Medicine 09/16/21 Jarvis Mcgee, supervisor feed housePicker / Packer Internal Medicine 10/22/21 [employer] Relationship Specialty Start Date End Date Arnold Spencer MD [address] [facility] [place] [place] [address] PCP - General Internal Medicine 09/16/21 Jacquelyn Conley, supervisor feed housePicker / Packer Internal Medicine 10/22/21 [employer] Relationship Specialty Start Date End Date Arnold Spencer MD [address] [facility] [place] [place] [address] PCP - General Internal Medicine 09/16/21 Jacquelyn Conley, supervisor feed housePicker / Packer Internal Medicine 10/22/21 [employer] Relationship Specialty Start Date End Date Arnold Spencer MD [address] [facility] [place] [place] [address] PCP - General Internal Medicine 09/16/21 Jacquelyn Conley, supervisor feed housePicker / Packer Internal Medicine 10/22/21 [employer] Relationship Specialty Start Date End Date Arnold Spencer MD [address] [facility] [place] [place] [address] PCP - General Internal Medicine 09/16/21 Jacquelyn Conley, supervisor feed housePicker / Packer Internal Medicine 10/22/21 [employer] Serv[employer] Relationship Specialty Start Date End Date Arnold Spencer MD [address] [facility] [place] [place] [address] PCP - General Internal Medicine 09/16/21 Jacquelyn Conley, supervisor feed housePicker / Packer Internal Medicine 10/22/21 [employer] Serv[employer] Relationship Specialty Start Date End Date Arnold Spencer MD [address] [facility] [place] [place] [address] PCP - General Internal Medicine 09/16/21 Jacquelyn Conley, supervisor feed housePicker / Packer Internal Medicine 10/22/21 [employer] Serv[employer] Relationship Specialty Start Date End Date Arnold Spencer MD [address] [facility] [place] [place] [address] PCP - General Internal Medicine 09/16/21 Jacquelyn Conley, supervisor feed housePicker / Packer Internal Medicine 10/22/21 [employer] Relationship Specialty Start Date End Date Arnold Spencer MD [address] [facility] [place] [address] PCP - General Internal Medicine 09/16/21 Jacquelyn Conley, supervisor feed housePicker / Packer Internal Medicine 10/22/21 [employer] Relationship Specialty Start Date End Date Arnold Spencer MD [address] [facility] [place] [address] PCP - General Internal Medicine 09/16/21 Jacquelyn Conley, supervisor feed housePicker / Packer Internal Medicine 10/22/21 [employer] Relationship Specialty Start Date End Date Arnold Spencer MD [address] [place] [address] PCP - General Internal Medicine 09/16/21 Jacquelyn Conley RN Picker / Packer Internal Medicine 10/22/21 [employer] Relationship Specialty Start Date End Date Arnold Spencer MD [address] [place] [address] PCP - General Internal Medicine 09/16/21 Jacquelyn Conley RN Picker / Packer Internal Medicine 10/22/21 [employer] Relationship Specialty Start Date End Date Jacquelyn Conley RN Picker / Packer Internal Medicine 10/22/21 [employer] Relationship Specialty Start Date End Date Jacquelyn Conley RN Picker / Packer Internal Medicine 10/22/21 FOR RECORDS PERTAINING TO [...] BE BASED ON THE PRIMARY CLINICAL RECORDS. [facility] [employer] [facility]. provides no warranty or guarantee of the accuracy or completeness of information in this document.
--- NOTE | 2023-11-17 11:11 | US_ITS ---
STUDY: ABDOMINAL ULTRASOUND - RIGHT UPPER QUADRANT REASON FOR VISIT: Male, 88 years old Right upper quadrant pain, abnormal CAT scan TECHNIQUE: Ultrasound evaluation of the right upper quadrant was performed with real-time and static borges-scale imaging. TECHNICAL QUALITY: Adequate. COMPARISON: CT abdomen and pelvis without contrast 11/17/2023. FINDINGS: Liver: The liver measures 15.9 cm. There is normal echogenicity of the liver. The bile ducts are within normal limits. There is hepatic color flow. The direction of portal flow is hepatopetal. There is no demonstrated mass lesion. Small right upper quadrant ascites. Small right pleural effusion. Gallbladder: Normal distended gallbladder. The gallbladder wall measures 8.1 mm. There is a negative sonographic Guerra''s sign. There is pericholecystic fluid. There are no gallstones. Common Bile Duct (C.B.D.): The common bile duct measures 7.4 mm. Pancreas: Normal size of the head, body and tail of the pancreas. There is normal echogenicity of the pancreas. There is no demonstrated pancreatic mass or cyst. The pancreatic duct is not dilated. Right Kidney: Normal size of the right kidney. The right kidney measures 9.7 x 5.3 x 3.9 cm. Normal renal cortex. The right cortex measures 1.0 cm. There is no demonstrated renal mass or cyst. There is no right hydronephrosis. Prominent right extrarenal pelvis. US/Gallbladder IMPRESSION: 1. Abnormal 8.1 mm edema/thickening of the gallbladder wall without gallstones but negative for sonographic Guerra''s sign. 2. Small ascites and right pleural effusion. Electronically Signed: Jadon Smith MD at 13:27 EST ,
[2023-11-17 15:00] VITALS: BP 118/76; PULSE 64; RESP 18; O2SAT 99
== END 2023-11-17 15:04 | disposition home or self-care (01) ==
PROVIDERS: Emergency Provider Emergency Medicine; PCP Family Medicine; Visit Provider Emergency Medicine
DX: R18.8 Other ascites (principal); I48.0 Paroxysmal atrial fibrillation; N18.30 Chronic kidney disease, stage 3 unspecified; E86.0 Dehydration; E78.5 Hyperlipidemia, unspecified; K81.1 Chronic cholecystitis; D63.1 Anemia in chronic kidney disease; I25.10 Atherosclerotic heart disease of native coronary artery without angina pectoris; Z79.899 Other long term (current) drug therapy; Z79.01 Long term (current) use of anticoagulants; Z95.0 Presence of cardiac pacemaker; R10.32 Left lower quadrant pain
CPT/HCPCS: 74176; 76705; 80053; 83605; 85025; 96361; 96374; 96375; 99284; J7030; J2405

== ENCOUNTER → 2023-11-24 | Outpatient (CLI) | payer MEDICARE, OTHER, SELFPAY ==
--- NOTE | 2023-11-24 15:27 | RAD_ITS ---
INDICATION: Shortness of breath EXAMINATION/TECHNIQUE: X-RAY - XR Chest 2 Views COMPARISON: Prior study dated: 10/17/2023. FINDINGS: LINES/DEVICES: Dual-chamber left-sided cardiac pacer device in stable position. LUNGS: Lower lung infiltrate new since previous exam. Small right pleural effusion. MEDIASTINUM AND CARDIOVASCULAR STRUCTURES: Stable cardiomediastinal silhouette. Status post CABG. BONES AND SOFT TISSUES: Unremarkable. RAD/Chest PA and Lateral IMPRESSION: Right lower lung infiltrate and small right pleural effusion. Electronically Signed: Jimmy Sorto MD at 18:49 EST ,
[2023-11-24 17:41] LABS: Absolute Lymphocyte Count 0.69 X10^3/uL (0.83-4.51); Absolute Neutrophil Count 3.5 X10^3/uL (2.0-7.7); Basophil# 0.03 X10^3/uL; Basophil% 0.6 % (0-1); Eosinophil# 0.16 X10^3/uL; Eosinophils% 3.4 % (0-5); Hematocrit 29.5 % (40-54); Hemoglobin 9.3 g/dL (13.0-16.5); Lymphocyte # 0.69 X10^3/ul (0.83-4.51); Lymphocyte % 14.8 % (19-41); Mean Corp Hgb Conc 31.5 g/dL (32-36); Mean Corpuscular Volume 104.6 fL (80-94); Mean Platelet Vol. 10.8 fl (6.2-12.0); Monocyte# 0.32 X10^3/uL; Monocyte% 6.9 % (0-10); NRBC Flagged by Analyzer 0 % (0-5); Neutrophil # 3.45 X10^3/uL (2.7-7.7); Neutrophil % 74.1 % (47-70); Platelet Count 147 K/mm3 (150-450); RBC Distribution Width CV 16.3 % (11.6-14.6); RBC Distribution Width SD 61.4 fl (35.1-43.9); Red Blood Count 2.82 M/mm3 (4.6-6.2); White Blood Count 4.7 K/mm3 (4.4-11.0)
[2023-11-24 18:23] LABS: AST(SGOT) 24 U/L (15-37); Alanine Aminotransfer ALT/SGPT 26 U/L (16-61); Albumin, Serum 3.6 g/dL (3.2-5.0); Alkaline Phosphatase 107 U/L (45-117); Anion Gap 6 (5-15); BUN 38 mg/dL (7-18); BUN/Creat Ratio 15.8 RATIO (10-20); Calcium,Total 8.9 mg/dL (8.5-10.1); Chloride 112 mmol/L (98-107); Creatinine, Serum 2.41 mg/dL (0.70-1.30); EST Glomerular Filtration Rate 27 mL/min (>60); Est Glom Filt Rate - Afr Amer 33 mL/min (>60); Globulin 3.5 g/dL (2.2-4.2); Glucose 121 mg/dL (74-106); Potassium 2.9 mmol/L (3.5-5.1); Protein, Total 7.1 g/dL (6.4-8.2); Sodium Level 141 mmol/L (136-145)
== END | disposition home or self-care (01) ==
LOC: MTLAB 15:26
PROVIDERS: PCP Family Medicine; Referring Provider Family Medicine; Visit Provider Family Medicine
DX: N18.9 Chronic kidney disease, unspecified (principal); D64.9 Anemia, unspecified; R06.02 Shortness of breath
CPT/HCPCS: 36415; 71046; 80053; 85025

== ENCOUNTER 2023-11-27 12:59 | Inpatient (IN) | payer MEDICARE, OTHER, SELFPAY ==
[2023-11-27] VITALS (9 sets, daily range): BP systolic 131–173; BP diastolic 67–96; PULSE 64–84; RESP 12–33; TEMP 36.4–37; O2SAT 88–100; BMI 22.4
--- NOTE | 2023-11-27 13:01 | ED.VIS.CHEST ---
HPI History of Present Illness Chief Complaint: Chest Pain [facility] Medical History Acute electrocardiogram changes Atherosclerosis of [place] coronary artery of [place] heart without angina pectoris Brain bleed Carotid artery disease Chest pain Chronic kidney disease (CKD) Chronic kidney disease (CKD) Congestive heart failure COVID-19 GERD (gastroesophageal reflux disease) Hypoxemia Ischemic cardiomyopathy Kidney disease, chronic, stage III (GFR 30-59 ml/min) Paroxysmal atrial fibrillation Pneumonia of both lower lobes Home Medications allopurinol 100 mg tablet 100 mg PO BID Gout 11/24/18 [History Last Taken 11/17/23] atorvastatin 40 mg tablet 40 mg PO QHS Cholesterol 11/24/18 [History Last Taken 05/06/22] pyridoxine (vitamin B6) 100 mg tablet 100 mg PO DAILY supplement 11/24/18 [History Last Taken 11/17/23] albuterol sulfate 90 mcg/actuation aerosol inhaler 2 puff inhalation Q4H PRN shortness of breath or wheezing #8.5 grams 12/25/20 [Rx Last Taken Unknown] ascorbate calcium (vitamin C) 500 mg tablet 500 mg PO DAILY supplement 12/25/20 [History Last Taken 11/17/23] mecobalamin (vitamin B12) 1,000 mcg disintegrating tablet,sublingual 1,000 mcg sublingual DAILY supplement 12/25/20 [History Last Taken 11/16/23] cholecalciferol (vitamin D3) 50 mcg (2,000 unit) tablet 50 mcg PO DAILY #1 TAB 03/09/22 [Rx Last Taken 11/17/23] coenzyme Q10 100 mg tablet 100 mg PO DAILY 09/24/22 [History Last Taken 11/16/23] torsemide 20 mg tablet 20 mg PO MOWEFR edema 11/19/22 [History Last Taken 11/17/23] potassium chloride 20 mEq tablet,extended release 20 meq PO MOWEFR Hypokalemia 06/30/23 [History Last Taken 11/17/23] nitroglycerin 0.4 mg sublingual tablet 0.4 mg sublingual Q5M PRN Cardiac/Chest Pain #30 tabs 09/02/23 [Rx Last Taken Unknown] apixaban 2.5 mg tablet 2.5 mg PO BID Blood thinner #180 tabs 09/30/23 [Rx Last Taken 11/17/23] Lactobacillus acidophilus 1 cap PO SUTUTHSA PROBIOTIC 11/17/23 [History Last Taken 11/16/23] carvedilol 25 mg tablet 25 mg PO BID blood pressure 11/17/23 [History Last Taken 11/17/23] magnesium oxide 400 mg (241.3 mg magnesium) tablet 400 mg PO DAILY SUPPLEMENT 11/17/23 [History Last Taken 11/17/23] sacubitril 49 mg-valsartan 51 mg tablet (Entresto) 1 tab PO BID BLOOD PRESSURE 11/17/23 [History Last Taken 11/17/23] sodium bicarbonate 650 mg tablet 650 mg PO DAILY SUPPLEMENT 11/17/23 [History Last Taken 11/17/23] Allergy/AdvReac Type Severity Reaction Status Date / Time No Known Allergies Allergy Verified 11/17/23 08:29 Family History Father CAD (coronary artery disease) Surgical History History of brain surgery History of coronary artery bypass graft x 3 History of craniotomy History of permanent cardiac pacemaker placement Social History (Updated 11/17/23 @ 08:[address] Guillermo Negrete MD) household members: spouse Smoking Status: Never smoker alcohol intake: never substance use type: does not use caffeine: No EXAM Physical Exam Const Vital Signs: 11/27/23 12:59 11/27/23 13:32 11/27/23 13:34 Temperature 97.6 F L Temperature Source Temporal Pulse Rate 84 Respiratory Rate 16 Respiratory Effort Normal Non-Labored Blood Pressure 173/68 H Blood Pressure Mean 103 Pulse Ox 94 95 Oxygen Delivery Method Room Air Room Air MDM MDM MDM Narrative Medical decision making narrative: HISTORY OF PRESENT ILLNESS: 88-year-old male here with chest pain, chest pressure, shortness of breath. Notes he feels congested . Noted this morning as he was eating breakfast he had increased work of breathing shortness of breath. He notes chronic leg swelling. Denies any orthopnea or paroxysmal nocturnal dyspnea. Denies any recent illnesses, sick contacts. Denies cough fever or chills. Notes compliance with Eliquis. Denies PE risk factors (recent surgery, chemotherapy, estrogen use, unilateral leg swelling, hemoptysis). REVIEW OF SYSTEMS: Pertinent positives: Chest pain, shortness of breath, leg swelling Pertinent negatives: Cough, fever, bleeding diathesis, focal weakness or syncope PHYSICAL EXAM: Nursing triage notes reviewed, Vital signs reviewed Constitutional: please see mdm HENT: MMM Eyes: Pupils equal round and reactive to light, Extraocular muscles intact Neck: No stridor, no JVD, full neck ROM Lungs: Increased work of breathing, conversational dyspnea, rales noted bilaterally Heart: Regular rate and rhythm, No murmurs, No rubs and No gallops, 2+ distal pulses (radial, femoral, posterior tibial) in all extremities Abdomen: Soft, there is no tenderness, rigidity, rebound or guarding, no obvious peritoneal signs, no palpable pulsatile abdominal masses, no auscultated abdominal bruit : No CVAT Extremities: 2+ pitting edema bilaterally Neuro: No focal neurological deficits, cranial nerves II through XII intact, 5/5 strength in all extremities. Intact sensation to light touch in all extremities, 2+ reflexes bilateral patella tendons. Normal gait. No ataxia. Skin: No rash or lesions noted MEDICAL DECISION MAKING: Chief Complaint: Chest pain External records reviewed: Echocardiogram from November 10 shows ejection fraction 20% with severe global hypokinesis of the left ventricle Factors affecting care: CAD status post CABG, hypertension, hyperlipidemia, A-fib on Eliquis, sick sinus syndrome status post pacemaker Social determinants of health: Elderly History obtained from others: Dr. Eden Consults: Internal medicine [facility] Narrative: Patient was initially normotensive, had increased work of breathing, tachypnea and transient hypoxia. He was placed on 2 L nasal cannula with improvement in oxygen levels. Exam with 3+ lower extremity edema and rales noted bilateral bases consistent with likely CHF exacerbation. I considered the following differential diagnosis: CHF exacerbation, ACS, arrhythmia, electro disturbance, anemia, pneumonia, COVID, RSV, flu, PE While I considered PE the patient is low risk Wells score is compliant with Eliquis which makes VTE much less likely. ALL IMAGES (IF OBTAINED) HAVE BEEN PERSONALLY REVIEWED AND INTERPRETED BY MYSELF. EKG with ventricular paced rhythm, left axis deviation, prolonged QT interval, left bundle branch block, there is no significant interval change from prior EKGs reviewed from August 2023 Chest x-ray was read reviewed by myself shows evidence of pulmonary edema versus right lower lobe infiltrate, favor pulmonary edema given lack of cough, infectious signs symptoms, fever or elevated white blood cell count High-sensitivity troponin is negative, no evidence of myocardial ischemia BP pending BMP with no significant Gerri normalities, there is noted hypokalemia, there is CKD noted however this is similar to prior The synthesis of the patient's history, physical exam, labs images suggest likely heart failure. Given the patient's advanced age, hypoxia and need for close PEGGY monitoring, electrolyte replacement and renal assessment he will need inpatient mission for IV diuresis. Discussed with Dr. Salmon The patient and/or family, caregivers express understanding. The patient and/or family, caregivers agrees with the plan. Shared decision making: I will have a discussion with the patient and or visitors regarding risk/benefits of further testing or admission. They will be made aware of of the risk/benefits inherent in this decision they will be given the opportunity to voice understanding. Total critical care time today provided was at least 35 minutes. This excludes separately billable procedures. Critical care time (if documented) is secondary to the patient having high probability of clinically significant/life threatening deterioration in the patient's condition which required my urgent intervention. Impression: 1. Hypoxia 2. CHF exacerbation 3. Hypokalemia Dispo: admit This note was generated with jiffstore dictation software. It may contain incorrect words, spelling, and punctuation that were not noted in review of the chart prior to signing. Lab Data Labs: Laboratory Results - last 24 hr 11/27/23 13:30 WBC 4.7 RBC 2.84 L Hgb 9.5 L Hct 29.4 L MCV 103.5 H MCH 33.5 H MCHC 32.3 RDW Std Deviation 63.3 H RDW Coeff of Vanesa 16.8 H Plt Count 142 L MPV 10.2 Immature Gran % (Auto) 0.200 Neut % (Auto) 73.9 H Lymph % (Auto) 15.1 L [place] % (Auto) 6.4 Eos % (Auto) 4.0 Baso % (Auto) 0.4 Absolute Neuts (auto) 3.5 Absolute Lymphs (auto) 0.71 L Nucleated RBC % 0 Sodium 143 Potassium 3.2 L Chloride 116 H Carbon Dioxide 20.0 L Anion Gap 7 BUN 37 H Creatinine 2.15 H Estim Creat Clear Calc 24.32 Est GFR (MDRD) Af Amer 38 L Est GFR (MDRD) Non-Af 31 L BUN/Creatinine Ratio 17.2 Glucose 116 H Calcium 9.1 Troponin I High Sens 47 Radiography Diagnostic Testing: Clinical Impression(s) from Imaging Studies Chest X-Ray 11/27/23 13:38 IMPRESSION: Worsening bilateral pneumonia or edema and pleural effusions. Electronically Signed: Deon Palmer MD at 15:06 EST Reading Location ID and State: [address] [place] [address] , Service support , Discharge Plan Triage Chief Complaint: Chest Pain ED Provider: Devin Kennedy Dx/Rx/DC Orders Prescriptions: No Action mecobalamin (vitamin B12) 1,000 mcg tablet,disintegrating 1,000 mcg SUBLINGUAL DAILY Rx Instructions: place tablet under tongue and allow to dissolve for at least30 secs before swallowing. pt takes in the am ascorbate calcium (vitamin C) 500 mg tablet 500 mg PO DAILY albuterol sulfate 90 mcg/actuation HFA aerosol inhaler 2 puff INHALATION Q4H PRN (Reason: shortness of breath or wheezing) Qty: 8.5 6RF Rx Instructions: administer with spacer coenzyme Q10 100 mg tablet 100 mg PO DAILY Rx Instructions: pt takes in the am potassium chloride 20 mEq tablet extended release 20 meq PO MOWEFR atorvastatin 40 MG tablet 40 mg PO QHS allopurinol 100 MG tablet 100 mg PO BID pyridoxine (vitamin B6) 100 MG tablet 100 mg PO DAILY Rx Instructions: pt takes in the am carvedilol 25 mg tablet 25 mg PO BID Rx Instructions: must administer with a meal/food Entresto 49-51 mg tablet 1 tab PO BID magnesium oxide 400 mg (241.3 mg magnesium) tablet 400 mg PO DAILY Patient Comments: TAKE 1 TABLET BY MOUTH ONCE DAILY sodium bicarbonate 650 mg tablet 650 mg PO DAILY Lactobacillus acidophilus [Probiotic Acidophilus] 1 cap PO SUTUTHSA cholecalciferol (vitamin D3) 50 mcg (2,000 unit) tablet 50 mcg PO DAILY Qty: 1 0RF torsemide 20 mg tablet 20 mg PO MOWEFR nitroglycerin 0.4 mg tablet, sublingual 0.4 mg sublingual Q5M PRN (Reason: Cardiac/Chest Pain) Qty: 30 2RF apixaban 2.5 mg tablet 2.5 mg PO BID Qty: 180 4RF Primary Care Provider: Cheli Grace Referrals: Cheli Grace MD [Primary Care Provider] -
[2023-11-27 13:38] LABS: Absolute Lymphocyte Count 0.71 X10^3/uL (0.83-4.51); Absolute Neutrophil Count 3.5 X10^3/uL (2.0-7.7); Basophil# 0.02 X10^3/uL; Basophil% 0.4 % (0-1); Eosinophil# 0.19 X10^3/uL; Hematocrit 29.4 % (40-54); Hemoglobin 9.5 g/dL (13.0-16.5); Lymphocyte # 0.71 X10^3/ul (0.83-4.51); Lymphocyte % 15.1 % (19-41); Mean Corp Hgb Conc 32.3 g/dL (32-36); Mean Corpuscular Hgb 33.5 pg (27.0-32.0); Mean Corpuscular Volume 103.5 fL (80-94); Mean Platelet Vol. 10.2 fl (6.2-12.0); Monocyte% 6.4 % (0-10); NRBC Flagged by Analyzer 0 % (0-5); Neutrophil # 3.48 X10^3/uL (2.7-7.7); Neutrophil % 73.9 % (47-70); Platelet Count 142 K/mm3 (150-450); RBC Distribution Width CV 16.8 % (11.6-14.6); RBC Distribution Width SD 63.3 fl (35.1-43.9); Red Blood Count 2.84 M/mm3 (4.6-6.2); White Blood Count 4.7 K/mm3 (4.4-11.0)
--- NOTE | 2023-11-27 13:38 | RAD_ITS ---
STUDY: X-RAY CHEST REASON FOR EXAM: Male, 88 years old. Chest pain TECHNIQUE: Single AP portable view of the chest. COMPARISON: November 24, 2023 FINDINGS: There is dual-chamber pacemaker device on the left. There is left greater than right lower lung airspace consolidation. There is moderate right pleural effusion. There is small left pleural effusion. Sternal cerclage wires are present from a prior sternotomy. There is cardiac enlargement. Normal mediastinum and moise. Normal visualized pulmonary arteries. There is atherosclerotic calcification of the aortic arch with tortuosity. There is demineralization of the osseous structures. Normal visualized ribs, clavicles, and shoulders. There is no demonstrated abnormality of the visualized soft tissue structures of the upper abdomen. RAD/Chest 1 View (Portable) IMPRESSION: Worsening bilateral pneumonia or edema and pleural effusions. Electronically Signed: Deon Palmer MD at 15:06 EST ,
--- OUTSIDE RECORDS SUMMARY | 2023-11-27 13:45 | XMS RPT_ITS | CCD ---
Author Name Unknown Address [address] [place] [address] Organization [facility] Care Team Providers Care Termite Control Representative Name Role Phone Arnold Spencer MD Primary [...] BESYLATE] Drug Allergy 9 Other: See Comments [facility] (13 sources) HMG-CoA reductase inhibitor; Translations: [PLKVSTO-TNF-EA A REDUCTASE INHIBITORS] Drug Intolerance 4 Other: See Comments [facility] (20 sources) Indomethacin; Translations: [INDOMETHACIN SODIUM] Drug Allergy 2 GI Upset [facility] (20 sources) Lisinopril; Translations: [LISINOPRIL] Drug Allergy 1 Cough [facility] Work Phone: (20 sources) HMG-CoA reductase inhibitor Drug Intolerance 4 Other: See Comments [facility] Medications Current Medications Medication Drug Class(es) [...] Drug Class(es) Dates Sig (Normalized) Sig (Original) [id number] 200 actuat albuterol 0.09 mg/actuat metered dose [...] Coronary atherosclerosis; Translations: [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] Onset: 5 [...] 97.59 [degF] Arnold Spencer MD Work Phone: [facility] 02-02-2023 15:57-0400 Body weight 65.77 kg Arnold Spencer MD Work Phone: [facility] 02-02-2023 15:57-0400 Diastolic blood pressure 68 mm[Hg] Arnold Spencer MD Work Phone: [facility] 02-02-2023 15:57-0400 Heart rate 93 /min Arnold Spencer MD Work Phone: [facility] 02-02-2023 15:57-0400 Respiratory rate 18 /min Arnold Spencer MD Work Phone: [facility] 02-02-2023 15:57-0400 SaO2% (BldA) [Mass fraction] 98 % Arnold Spencer MD Work Phone: [facility] 02-02-2023 15:57-0400 Systolic blood pressure 122 mm[Hg] Arnold Spencer MD Work Phone: [facility] 11-03-2022 14:40-0500 Body height 177.8 cm Cat Chavira MD Work Phone: [facility] 11-03-2022 14:40-0500 Body weight 68.95 kg Cat Chavira MD Work Phone: [facility] 11-03-2022 14:40-0500 Diastolic blood pressure 67 mm[Hg] Cat Chavira MD Work Phone: [facility] 11-03-2022 14:40-0500 Heart rate 63 /min Cat Chavira MD Work Phone: [facility] 11-03-2022 14:40-0500 Systolic blood pressure 121 mm[Hg] Cat Chavira MD Work Phone: [facility] 07-31-2022 14:41-0400 Body height 177.8 cm Cat Chavira MD Work Phone: [facility] 07-31-2022 14:41-0400 Body weight 64.86 kg Cat Chavira MD Work Phone: [facility] 07-31-2022 14:41-0400 Diastolic blood pressure 72 mm[Hg] Cat Chavira MD Work Phone: [facility] 07-31-2022 14:41-0400 Heart rate 94 /min Cat Chavira MD Work Phone: [facility] 07-31-2022 14:41-0400 Systolic blood pressure 127 mm[Hg] Cat Chavira MD Work Phone: [facility] 07-28-2022 13:31-0400 Body height 177.8 cm Partha Santana PA-C Work Phone: [facility] 07-28-2022 13:31-0400 Body temperature 97 [degF] Partha Santana PA-C Work Phone: [facility] 07-28-2022 13:31-0400 Body weight 65.32 kg Partha Santana PA-C Work Phone: [facility] 07-28-2022 13:31-0400 Diastolic blood pressure 70 mm[Hg] Partha Santana PA-C Work Phone: [facility] 07-28-2022 13:31-0400 Heart rate 108 /min Partha Santana PA-C Work Phone: [facility] 07-28-2022 13:31-0400 Respiratory rate 14 /min Partha Santana PA-C Work Phone: [facility] 07-28-2022 13:31-0400 SaO2% (BldA) [Mass fraction] 96 % Partha Santana PA-C Work Phone: [facility] 07-28-2022 13:31-0400 Systolic blood pressure 110 mm[Hg] Partha Santana PA-C Work Phone: [facility] 07-21-2022 14:42-0400 Body weight 65.32 kg 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 Work Phone: [facility] 07-21-2022 14:42-0400 Diastolic blood pressure 68 mm[Hg] 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 Work Phone: [facility] 07-21-2022 14:42-0400 Heart rate 60 /min 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 Work Phone: [facility] 07-21-2022 14:42-0400 Respiratory rate 16 /min 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 Work Phone: [facility] 07-21-2022 14:42-0400 SaO2% (BldA) [Mass fraction] 99 % 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 Work Phone: [facility] 07-21-2022 14:42-0400 Systolic blood pressure 120 mm[Hg] 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 Work Phone: [facility] 07-10-2022 15:50-0400 Body height 172.7 cm Cat Chavira MD Work Phone: [facility] 07-10-2022 15:50-0400 Body weight 70.31 kg Cat Chavira MD Work Phone: [facility] 07-10-2022 15:50-0400 Diastolic blood pressure 81 mm[Hg] Cat Chavira MD Work Phone: [facility] 07-10-2022 15:50-0400 Heart rate 63 /min Cat Chavira MD Work Phone: [facility] 07-10-2022 15:50-0400 Systolic blood pressure 145 mm[Hg] Cat Chavira MD Work Phone: [facility] 06-23-2022 14:33-0400 Body weight 68.49 kg 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 Work Phone: [facility] 06-23-2022 14:33-0400 Diastolic blood pressure 60 mm[Hg] 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 Work Phone: [facility] 06-23-2022 14:33-0400 Heart rate 80 /min 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 Work Phone: [facility] 06-23-2022 14:33-0400 Respiratory rate 16 /min 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 Work Phone: [facility] 06-23-2022 14:33-0400 Systolic blood pressure 110 mm[Hg] 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 Work Phone: [facility] 06-05-2022 14:02-0400 Body weight 72.12 kg Arnold Spencer MD Work Phone: [facility] 06-05-2022 14:02-0400 Diastolic blood pressure 80 mm[Hg] Arnold Spencer MD Work Phone: [facility] 06-05-2022 14:02-0400 Heart rate 74 /min Arnold Spencer MD Work Phone: [facility] 06-05-2022 14:02-0400 SaO2% (BldA) [Mass fraction] 98 % Arnold Spencer MD Work Phone: [facility] 06-05-2022 14:02-0400 Systolic blood pressure 140 mm[Hg] Arnold Spencer MD Work Phone: [facility] 05-26-2022 10:07-0400 Body temperature 97.9 [degF] 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 Work Phone: [facility] 05-26-2022 10:07-0400 Body weight 70.76 kg 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 Work Phone: [facility] 05-26-2022 10:07-0400 Diastolic blood pressure 74 mm[Hg] 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 Work Phone: [facility] 05-26-2022 10:07-0400 Heart rate 70 /min 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 Work Phone: [facility] 05-26-2022 10:07-0400 Respiratory rate 16 /min 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 Work Phone: [facility] 05-26-2022 10:07-0400 SaO2% (BldA) [Mass fraction] 97 % 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 Work Phone: [facility] 05-26-2022 10:07-0400 Systolic blood pressure 134 mm[Hg] 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 Work Phone: [facility] 03-10-2022 12:58-0400 Body weight 68.95 kg 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 Work Phone: [facility] 03-10-2022 12:58-0400 Diastolic blood pressure 82 mm[Hg] 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 Work Phone: [facility] 03-10-2022 12:58-0400 Heart rate 84 /min 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 Work Phone: [facility] 03-10-2022 12:58-0400 Respiratory rate 16 /min 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 Work Phone: [facility] 03-10-2022 12:58-0400 Systolic blood pressure 130 mm[Hg] 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 Work Phone: [facility] Encounters Encounter Date Encounter Type Care [...] Assay of magnesium Luis Daniel De Guzmans 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 Work Phone: Start: 03-13-2022 PACEMAKER REMOTE CHECK Elena Bunch MD Work Phone: Start: 2015 History of coronary artery bypass grafting S/P CABG (coronary artery bypass graft) Jarvis Mcgee RN History of coronary artery bypass grafting S/P CABG (coronary artery bypass graft) Della De Guzmans 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 Work Phone: History of coronary artery bypass grafting S/P CABG (coronary artery bypass graft) Della De Guzmans 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 Work Phone: Plan of Treatment Date Care Activity Detail Author Start: 02-02-2026 DIABETES SCREEN DIABETES SCREEN [facility] Start: 02-02-2026 Diabetes Screening Diabetes Screenin g [facility] Start: 12-10-2025 DIABETES SCREEN DIABETES SCREEN [facility] Start: 08-27-2025 DIABETES SCREEN DIABETES SCREEN [facility] Start: 08-18-2025 DIABETES SCREEN DIABETES SCREEN [facility] Start: 07-28-2025 DIABETES SCREEN DIABETES SCREEN [facility] Start: 07-20-2025 DIABETES SCREEN DIABETES SCREEN [facility] Start: 07-06-2025 DIABETES SCREEN DIABETES SCREEN [facility] Start: 05-25-2025 DIABETES SCREEN DIABETES SCREEN [facility] Start: 01-09-2025 DIABETES SCREEN DIABETES SCREEN [facility] Start: 02-03-2024 Hepatitis B surface antibody level LDL CHOLESTEROL [facility] Start: 02-03-2024 SHINGRIX VACCINE (1 of 2) SHINGRIX VACCINE (1 of 2) [facility] Immunizations Immunization Date Immunization Notes Care Provider Nino ewing 08-15-2022 influenza, high-dose , quadrivalent vaccine (FLUZONE HIGH DOSE QUADRIVALENT) Immunization [place] Work Phone: [facility] 08-15-2022 influenza virus vaccine, unspecified formulation Jacquelyn Conley RN [facility] 07-28-2021 influenza, high-dose , quadrivalent vaccine (FLUZONE HIGH DOSE QUADRIVALENT) Jarvis Mcgee RN [facility] 03-04-2021 COVID-19 vaccine, ag e 12+ yr (PFIZER-BIONTECH - PURPLE TOP) Jarvis Mcgee RN [facility] 02-08-2021 COVID-19 vaccine, ag e 12+ yr (PFIZER-BIONTECH - PURPLE TOP) Jarvis Mcgee RN [facility] 08-08-2020 influenza, seasonal, injectable Jarvis Mcgee RN [facility] 07-24-2020 influenza, high-dose , quadrivalent vaccine (FLUZONE HIGH DOSE QUADRIVALENT) Cat Chavira MD Work Phone: [facility] 10-10-2019 influenza, high dose seasonal, preservative-free Jarvis Mcgee RN [facility] Work Phone: 07-01-2018 influenza, high dose seasonal, preservative-free Jarvis Mcgee RN [facility] 08-19-2017 influenza, high dose seasonal, preservative-free Jarvis Mcgee RN [facility] 08-19-2017 tetanus and diphther ia toxoids, adsorbed, preservative free, for adult use (5 Lf of tetanus toxoid and 2 Lf of diphtheria toxoid) Jarvis Mcgee RN [facility] 08-11-2016 influenza, high dose seasonal, preservative-free Jarvis Mcgee RN [facility] Work Phone: 07-29-2015 influenza, high dose seasonal, preservative-free Jarvis Mcgee RN [facility] 07-29-2015 pneumococcal conjuga te vaccine, 13 valent Jarvis Mcgee RN [facility] 08-22-2014 influenza, seasonal, injectable Jarvis Mcgee RN [facility] Work Phone: 09-06-2013 influenza virus vaccine, unspecified formulation Jarvis Mcgee RN [facility] Work Phone: 09-19-2012 influenza virus vaccine, unspecified formulation Jarvis Mcgee RN [facility] 10-23-2011 influenza virus vaccine, unspecified formulation Jarvis Mcgee RN [facility] 03-27-2008 pneumococcal polysaccharide vaccine, 23 valent Jarvis Mcgee RN [facility] NEGATED: Highlighted row has not occurred!07-21-2022 influenza, high-dose, quadrivalent vaccine (FLUZONE HIGH DOSE QUADRIVALENT) 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 APRN.[facility] Work Phone: [facility] Work Phone: Payers Date Payer Category Payer Medicare [id number] 2021 Unknown [employer]IC[employer] SUPPLEMENT [id number] 2021-Present [phone] [id number] [place] [address] Indemnity [id number] 2019 Unknown [id number] 2001 Medicare MEDICARE MEDICAR E A AND B [id number] 2001-Present [phone] [place] [address] Medicare [id number] 2001 Medicare MEDICARE MEDICAR E A AND B [id number] 2001-Present [phone] [place] [address] Medicare [id number] 2001 Medicare [id number] Social History Date Type Detail Facility Start: 02-22-2012 End: 06-23-2022 Tobacco smoking status NHIS Never smoked tobacco [facility] Start: 01-13-2022 End: 02-02-2023 Alcohol intake Current non-drinker of alcohol (finding) [facility] Start: 03-29-2020 End: 04-23-2020 History SDOH Alcohol Frequency 1 [facility] Start: 03-29-2020 History SDOH Alcohol Std Drinks 98 [facility] Start: 03-29-2020 End: 04-23-2020 History SDOH Social Connections Phone 5 [facility] Start: 03-29-2020 History SDOH Social Connections Get Together 4 [facility] Start: 03-29-2020 History SDOH Social Connections Quaker 3 [facility] Start: 03-08-2020 End: 03-29-2020 History SDOH Physical Activity DPW 2 [facility] Start: 03-08-2020 Education 15 [facility] Start: 1935 Sex Assigned At Not on file [facility] Start: 01-03-2022 End: 07-31-2022 Exposure to SARS-CoV-2 (event) Not sure [facility] Work Phone: Start: 02-22-2012 End: 06-23-2022 Tobacco use and exposure Smokeless tobacco non-user [facility] Tobacco smoking stat us NHIS Tobacco smoking consumption unknown [facility] Start: 02-02-2023 End: 04-26-2023 History of Social function [facility] Work Phone: Start: 02-02-2023 End: 04-26-2023 Tobacco use panel [facility] Work Phone: Adult Depression Screening Assessment 0 [facility] Work Phone: Do you belong to any clubs or organizations such as muslim groups, unions, fraternal or athletic groups, or school groups? Yes [facility] Are you now , , , , never or living with a partner? [facility] How often to you hav e a drink containing alcohol? Never [facility] Do you feel stress - tense, restless, nervous, or anxious, or unable to sleep at night because your mind is troubled all the time - these days [OSQ] Not at all [facility] (I/We) worried wheth er (my/our) food would run out before (I/we) got money to buy more. Never true [facility] Work Phone: In the past 12 month s, was there a time when you were not able to pay the mortgage or rent on time? No [facility] Medical Equipment Procedure Code Equipment Code Equipment Original Text Equipment Identifier Dates Plate Low Profil e Titanium 12mm Bone 2 Hole Bar 1.5mm Screw Nonsterile - [id number] Start: 11-29-2018 Plate Low Profil e Titanium 12mm Bone 2 Hole Bar 1.5mm Screw Nonsterile - [id number] Start: 11-29-2018 Screw 1.5mm 4mm Bone Self Drill Cross Pin Craniomaxillofacial - [id number] Start: 11-29-2018 Screw 1.5mm 4mm Bone Self Drill [place] Craniomaxillofacial - [id number] Start: 11-29-2018 Goals Date Patient Goal Desired Activity /State Personal health goal Clinical Notes 06-03-2017 to 09-17-2023 Jacquelyn Conley RN - 08/09/2023 4:50 PM EDTSJacquelyn werner RN - 08/06/2023 5:59 PM EDTTelephone Russ - Liliana De La Rosa Ma - 08/09/2023 2:58 PM EDTBeverley Kaba LPN - 08/28/2022 1:39 PM EDT Note Date & Type Note Facility 09-17-2023 Note HNO ID: [id number] Author: Jacquelyn Conley RN Service: ? Author Type: Registered Nurse Type: Progress Notes Filed: 09/27/2023 2:20 PM Note Text: CDM Telephonic Outreach Provider Action/FYI CDM: CHF, CKD Spk with spouse Deirdre she noted Joseph has vocal cord issue and nasal passage issues, has 09/22/[address] Alicea ENT. Pt recently established with Dr. [facility].Denies needs. Instructed to call new PCP for any symptom changes, concerns or needs, Pt and are aware of discontinuation of Manufacturing Planner services, and noted appreciation for previous and [...] pounds in a week? No Based on track fitter, the following disposition is advised: No symptoms or symptoms present, not severe. Routed to: No Action Needed SEVEN Education Provided this Outreach: No Jacquelyn Conley RN September 17, 2023 3:44 PM [facility] 09-17-2023 Note Patient Outreach (AM [facility]) DARCY COVARRUBIAS ([id number]) 1935 M T Date Time Provider Department 09/17/23 JACQUELYN CONLEY [facility] During your visit today, we recorded the following information about you: Jacquelyn Conley RN 09/27/2023 2:20 PM Signed CDM Telephonic Outreach Provider Action/FYI CDM: CHF, CKD Spk with spouse Deirdre she noted Joseph has vocal cord issue and nasal passage issues, has 09/22/[address] Alicea ENT. Pt recently established with Dr. Lesly Calderon [facility].Denies needs. Instructed to call new PCP for any symptom changes, concerns or needs, Pt and are aware of discontinuation of Manufacturing Planner services, and noted appreciation for previous and [...] pounds in a week? No Based on track fitter, the following disposition is advised: No symptoms or symptoms present, not severe. Routed to: No Action Needed SEVEN Education Provided this Outreach: No Jacquelyn Conley RN September 17, 2023 3:44 PM Allergies As of Date: 09/17/2023 Noted Allergy Reaction INDOCIN (INDOMETHACIN SODIUM) 03/22/2012 8 - GI Upset NORVASC (AMLODIPINE BESYLATE) 12/16/2018 14 - Other: See Comments Comments: Dizziness LEPECOZ-OLZ-OTW REDUCTASE INHIBIT*07/10/2014 14 - Other: See Comments [...] as needed for cough. - Lacto 21-Bifido 8-X-L0-B6-B12 (UP4 PROBIOTICS MEN'S) 50 billion cell -90 mg-30 mcg cap Take 1 tablet by mouth every other day. - atorvastatin (LIPITOR) 40 mg tablet Take 1 tablet by mouth once daily. - Coenzyme V28-Kyvghii E 100-100 mg cap Take by mouth. [...] 1 tablet by mouth once daily. - Wclqv-8-OHA-EPA-Fish Oil 1,000 mg (120 mg-180 mg) cap [...] PVC's (premature ventric (more content not included)... [facility] 08-09-2023 Note HNO ID: [id number] Author: Jacquelyn Conley RN Service: ? Author [...] Conley RN August 09, 2023 4:50 PM [facility] 08-09-2023 History of Present illness [...] 2023 5:59 PM documented in this encounter [facility] 08-09-2023 Miscellaneous Notes Patient called the office to cancel his Aug [address] Chavira because he would prefer a kidney doctor closer to where he lives in [place], [place] documented in this encounter [facility] 08-06-2023 Note HNO ID: [id number] Author: Jacquelyn Conley RN Service: ? Author [...] Conley RN August 06, 2023 5:59 PM [facility] 08-06-2023 Note Patient Outreach (AM [facility]) DARCY COVARRUBIAS ([id number]) 1935 M T Date Time Provider Department 08/06/23 JACQUELYN CONLEY [facility] During your visit today, we recorded the [...] 14 - Other: See Comments Comments: Dizziness AOVDIEX-FMF-OFI REDUCTASE INHIBIT*07/10/2014 14 - Other: See Comments [...] capsules by mouth once daily. - Coenzyme F76-Yttzepn E 100-100 mg cap Take by mouth. - cyanocobalamin (VITAMIN B-12) 1,000 mcg tab Take 1 tablet by mouth once daily. - Lacto 21-Bifido 9-M-W2-B6-B12 (UP4 PROBIOTICS MEN'S) 50 billion cell -90 [...] minutes as needed for chest pain. - Nmmrg-1-CBD-EPA-Fish Oil 1,000 mg (120 mg-180 mg) cap [...] left shoulder [M7*06/12/2014 Coronary artery disease involving iliamna verde*07/29/2015 S/P CABG (coronary artery bypass graft) [Z95.1] 2015 Hypokalemia [E87.6] 02/05/2016 01/29/2023 Osteoarthritis of spine with radiculopathy, lum*02/21/2016 History of permanent cardiac pacemaker placemen*09/03/2016 Paroxysmal atrial fibrillation (HCC) [I48.0] 09/03/2016 Chronic anticoagulation [Z79.01] 09/03/2016 12/16/2018 Carotid stenosis, asymptomatic [I65.29] 02/11/2017 Hyperglycemia [R73.9] (more content not included)... [facility] 07-15-2023 Note Patient Outreach (AM [facility]) DARCY COVARRUBIAS ([id number]) 1935 M CHT Date Time Provider Department [...] 14 - Other: See Comments Comments: Dizziness SKAANYV-OTG-NWV REDUCTASE INHIBIT*07/10/2014 14 - Other: See Comments [...] as needed for cough. - Lacto 21-Bifido 4-P-C2-B6-B12 (UP4 PROBIOTICS MEN'S) 50 billion cell -90 mg-30 mcg cap Take 1 tablet by mouth every other day. - atorvastatin (LIPITOR) 40 mg tablet Take 1 tablet by mouth once daily. - Coenzyme N68-Gfeqomh E 100-100 mg cap Take by mouth. [...] 1 tablet by mouth once daily. - Bgrba-3-VLB-EPA-Fish Oil 1,000 mg (120 mg-180 mg) cap [...] left shoulder [M7*06/12/2014 Coronary artery disease involving iliamna verde*07/29/2015 S/P CABG (coronary artery bypass graft) [...] mandie*03/19/2020 Heart failu (more content not included)... [facility] 07-15-2023 Note HNO ID: [id number] Author: Jacquelyn Conley RN Service: ? Author Type: Registered Nurse Type: Progress Notes Filed: 07/16/2023 5:24 PM Note Text: CDM Telephonic Outreach Provider Action/FYI CDM: CHF, CKD Left a message instructed to call PCP with any changes in condition or needs. Contacted for: Routine Telephonic Outreach Contact made with patient: No, left message. Jacquelyn Conley RN July 15, 2023 11:10 AM [facility] 07-15-2023 History of Present illness Narrative CDM Telephonic Outreach Provider Action/FYI CDM: CHF, CKD Left a message instructed to call PCP with any changes in condition or needs. Contacted for: Routine Telephonic Outreach Contact made with patient: No, left message. Jacquelyn Conley RN July 15, 2023 11:10 AM documented in this encounter [facility] 06-21-2023 Note HNO ID: [id number] Author: Jacquelyn Conley RN Service: ? Author Type: Registered Nurse Type: Progress Notes Filed: 06/21/2023 3:40 PM Note Text: CDM Telephonic Outreach Provider Action/FYI CDM: CHF, CKD Left a message instructed to call PCP with any changes in condition or needs. Contacted for: Routine Telephonic Outreach Contact made with patient: No, left message. Jacquelyn Conley RN June 21, 2023 3:38 PM [facility] 06-21-2023 History of Present illness [...] 2023 3:13 PM documented in this encounter [facility] 06-18-2023 Note HNO ID: [id number] Author: Jacquelyn Conley RN Service: ? Author Type: Registered Nurse Type: Progress Notes Filed: 06/21/2023 3:40 PM Note Text: CDM Telephonic Outreach Provider Action/FYI CDM: CHF, CKD Left a message instructed to call PCP with any changes in condition or needs. Contacted for: Routine Telephonic Outreach Contact made with patient: No, left message. Jacquelyn Conley RN June 18, 2023 3:13 PM [facility] 06-17-2023 Note Patient Outreach ([facility]) DARCY COVARRUBIAS ([id number]) 1935 M CHT Date Time Provider Department 06/17/23 JACQUELYN CONLEY [facility] During your visit today, we recorded the [...] 14 - Other: See Comments Comments: Dizziness TNZFRAT-IPM-ENX REDUCTASE INHIBIT*07/10/2014 14 - Other: See Comments [...] as needed for cough. - Lacto 21-Bifido 7-Z-T4-B6-B12 (UP4 PROBIOTICS MEN'S) 50 billion cell -90 mg-30 mcg cap Take 1 tablet by mouth every other day. - atorvastatin (LIPITOR) 40 mg tablet Take 1 tablet by mouth once daily. - Coenzyme T71-Pdlfxvg E 100-100 mg cap Take by mouth. [...] 1 tablet by mouth once daily. - Ccwin-6-XAO-EPA-Fish Oil 1,000 mg (120 mg-180 mg) cap [...] left shoulder [M7*06/12/2014 Coronary artery disease involving iliamna verde*07/29/2015 S/P CABG (coronary artery bypass graft) [Z95.1] 2015 Hypokalemia [E87.6] 02/05/2016 01/29/2023 Osteoarthritis of spine with radiculopathy, lum*02/21/2016 History of permanent cardiac pacemaker placemen*09/03/2016 Paroxysmal atrial fibrillation (HCC) [I48.0] 09/03/2016 Chronic anticoagulation [Z79.01] 09/03/2016 12/16/2018 Carotid stenosis, asymptomatic [I65.29] 02/11/2017 Hyperglycemia [R73.9] 02/11/2017 Anemia of chronic disease [D63.8] 02/11/2017 A (more content not included)... [facility] 05-16-2023 Note HNO ID: [id number] Author: Jacquelyn Conley RN Service: ? Author [...] Conley RN May 16, 2023 3:43 PM [facility] 05-16-2023 History of Present illness [...] 2023 1:31 PM documented in this encounter [facility] 05-10-2023 Note HNO ID: [id number] Author: Jacquelyn Conley RN Service: ? Author [...] Conley RN May 10, 2023 4:28 PM [facility] 05-07-2023 Note HNO ID: [id number] Author: Jacquelyn Conley RN Service: ? Author [...] Conley RN May 07, 2023 1:31 PM [facility] 05-07-2023 Note Patient Outreach (AM BCMG) DARCY COVARRUBIAS ([id number]) 1935 M CHT Date Time Provider Department [facility] [place] today, we recorded the [...] 14 - Other: See Comments Comments: Dizziness IZFSYEJ-QPU-XJA REDUCTASE INHIBIT*07/10/2014 14 - Other: See Comments [...] as needed for cough. - Lacto 21-Bifido 8-D-D0-B6-B12 (UP4 PROBIOTICS MEN'S) 50 billion cell -90 mg-30 mcg cap Take 1 tablet by mouth every other day. - atorvastatin (LIPITOR) 40 mg tablet Take 1 tablet by mouth once daily. - Coenzyme R62-Stjvlzk E 100-100 mg cap Take by mouth. [...] 1 tablet by mouth once daily. - Vudty-5-OJD-EPA-Fish Oil 1,000 mg (120 mg-180 mg) cap [...] left shoulder [M7*06/12/2014 Coronary artery disease involving iliamna verde*07/29/2015 S/P CABG (coronary artery bypass graft) [Z95.1] 2015 Hypokalemia [E87.6] 04 (more content not included)... [facility] 05-06-2023 Note HNO ID: [id number] Author: Jacquelyn Conley RN Service: ? Author [...] Conley RN May 06, 2023 1:14 PM [facility] 05-06-2023 History of Present illness [...] to leave message. Will reattempt call Jacquelyn oCnley RN May 05, 2023 3:42 PM documented in this encounter [facility] 05-05-2023 Note HNO ID: [id number] Author: Jacquelyn Conley RN Service: ? Author [...] Conley RN May 05, 2023 3:42 PM [facility] 05-05-2023 Note Patient Outreach (AM BC) DARCY COVARRUBIAS ([id number]) 1935 M T Date Time Provider Department [...] 14 - Other: See Comments Comments: Dizziness WWUFCTM-MLZ-BDK REDUCTASE INHIBIT*07/10/2014 14 - Other: See Comments [...] as needed for cough. - Lacto 21-Bifido 3-M-B4-B6-B12 (UP4 PROBIOTICS MEN'S) 50 billion cell -90 mg-30 mcg cap Take 1 tablet by mouth every other day. - atorvastatin (LIPITOR) 40 mg tablet Take 1 tablet by mouth once daily. - Coenzyme I72-Xhyquyk E 100-100 mg cap Take by mouth. [...] 1 tablet by mouth once daily. - Wtgqr-4-LJL-EPA-Fish Oil 1,000 mg (120 mg-180 mg) cap [...] left shoulder [M7*06/12/2014 Coronary artery disease involving iliamna verde*07/29/2015 S/P CABG (coronary artery bypass graft) [Z95.1] 2015 Hypokalemia [E87.6] 02/05/2016 01/29/2023 Osteoarthritis of spine with radiculopathy, lum*02/21/2016 History of permanent cardiac pacemaker placemen*09/03/2016 Paroxysmal atrial fibrillation (HCC) [I48.0] 09/03/2016 Chronic anticoagulation [Z79.01] 09/03/2016 12/16/2018 Carotid stenosis, asymptomatic [I65.29] 02/11/2017 Hyperglycemia [R73.9] 02/11/2017 Anemia of chronic disease [D63.8] 02/11/2017 Atria (more content not included)... [facility] 04-26-2023 Note HNO ID: [id number] Author: Cat Chavira MD Service: ? Author Type: Physician Type: Progress Notes Filed: 04/26/2023 12:37 PM Note Text: [facility] KIDNEY MEDICINE PENDING SALE TO [facility] SERVICE DATE: 04/26/2023 [...] of Left Shoulder Coronary Artery Disease Involving [place] Coronary Artery of [place] Heart Without Angina Pectoris S/P Cabg (Coronary [...] mg by mouth every Wednesday,Wednesday,Wednesday.) Lacto 21-Bifido 2-D-X9-B6-B12 (UP4 PROBIOTICS MEN'S) 50 billion cell -90 mg-30 mcg cap Take 1 tablet by mouth every other day. atorvastatin (LIPITOR) 40 mg tablet Take 1 tablet by mouth once daily. Coenzyme D62-Fgayrfd E 100-100 mg cap Take by mouth. [...] Take 1 tablet by mouth once daily. Inlbz-5-TWL-EPA-Fish Oil 1,000 mg (120 mg-180 mg) cap [...] Reactions Indocin [Indometha (more content not included)... [facility] 04-01-2023 Note HNO ID: [id number] Author: Jacquelyn Conley RN Service: ? Author [...] pounds in a week? No Based on track fitter, the following disposition is advised: No symptoms or symptoms present, not severe. Routed to: No Action Needed SEVEN Education Provided this Outreach: No Jacquelyn Conley RN April 01, 2023 6:03 PM [facility] 04-01-2023 History of Present illness [...] pounds in a week? No Based on track fitter, the following disposition is advised: No symptoms [...] 2023 12:44 PM documented in this encounter [facility] 03-30-2023 Note HNO ID: [id number] Author: Jacquelyn Conley RN Service: ? Author [...] Conley RN March 30, 2023 12:44 PM [facility] 03-30-2023 Note Patient Outreach (AM BCMG) DARCY COVARRUBIAS ([id number]) 1935 M [facility] Date Time Provider Department 03/30/23 JACQUELYN CONLEY [...] pounds in a week? No Based on track fitter, the following disposition is advised: No symptoms or symptoms present, not severe. Routed to: No Action Needed SEVEN Education Provided this Outreach: No Jacquelyn Conley RN April 01, 2023 6:03 PM Allergies As of Date: 03/30/2023 Noted Allergy Reaction INDOCIN (INDOMETHACIN SODIUM) 03/22/2012 8 - GI Upset NORVASC (AMLODIPINE BESYLATE) 12/16/2018 14 - Other: See Comments Comments: Dizziness WRDZRAX-EBT-KWX REDUCTASE INHIBIT*07/10/2014 14 - Other: See Comments [...] as needed for cough. - Lacto 21-Bifido 1-H-N9-B6-B12 (UP4 PROBIOTICS MEN'S) 50 billion cell -90 mg-30 mcg cap Take 1 tablet by mouth once daily. - atorvastatin (LIPITOR) 40 mg tablet Take 1 tablet by mouth once daily. - Coenzyme N31-Pfotowc E 100-100 mg cap Take by mouth. [...] 1 tablet by mouth once daily. - Ijkso-9-EKP-EPA-Fish Oil 1,000 mg (120 mg-180 mg) cap Take 2 g by mouth once daily. - PSYLLIUM HUSK, BULK, MISC Take 1 Packet by mouth once daily. 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 [facility] 03-04-2023 Note HNO ID: [id number] Author: Jacquelyn Conley RN Service: ? Author [...] Conley RN March 04, 2023 2:51 PM [facility] 03-04-2023 History of Present illness [...] 2023 3:46 PM documented in this encounter [facility] 03-02-2023 Note HNO ID: [id number] Author: Jacquelyn Conley RN Service: ? Author [...] Conley RN March 02, 2023 3:46 PM [facility] 03-02-2023 Note Patient Outreach (AM BCMG) DARCY COVARRUBIAS ([id number]) 1935 M T Date Time Provider Department [...] 14 - Other: See Comments Comments: Dizziness YJWYULG-OPR-FPY REDUCTASE INHIBIT*07/10/2014 14 - Other: See Comments [...] as needed for cough. - Lacto 21-Bifido 2-N-J6-B6-B12 (UP4 PROBIOTICS MEN'S) 50 billion cell -90 mg-30 mcg cap Take 1 tablet by mouth once daily. - atorvastatin (LIPITOR) 40 mg tablet Take 1 tablet by mouth once daily. - Coenzyme M46-Umqzhsz E 100-100 mg cap Take by mouth. [...] 1 tablet by mouth once daily. - Zceec-1-TUL-EPA-Fish Oil 1,000 mg (120 mg-180 mg) cap [...] left shoulder [M7*06/12/2014 Coronary artery disease involving iliamna verde*07/29/2015 S/P CABG (coronary artery bypass graft) [Z95.1] 2015 Hypokalemia [E87.6] 02/05/2016 01/29/2023 Osteoarthritis of spine with radiculopathy, lum*02/21/2016 History of permanent cardiac pacemaker placemen*09/03/2016 Paroxysmal atrial fibrillation (HCC) [I48.0] 09/03/2016 Chronic anticoagulation [Z79.01] 09/03/2016 12/16/2018 Carotid stenosis, asymptomatic [I65.29] 02/11/2017 Hyperglycemia [R73.9] 02/11/2017 Anemia o (more content not included)... [facility] 02-09-2023 Note HNO ID: [id number] Author: Cat Chavira MD Service: ? Author [...] obstructive uropathy with baseline creatinine 2.0-2.5 lately. [place] UA. Today patient does not have active [...] 07/28/2022 6.0 5.0 - 8.0 Final Specific [place], [place] Date Value Ref Range Status 07/28/2022 [...] Time Spent: 25 minutes Cat Chavira MD [facility] 02-08-2023 Note HNO ID: [id number] Author: Jacquelyn Conley RN Service: ? Author [...] pounds in a week? No Based on track fitter, the following disposition is advised: Symptoms present, not severe. Routed to: No Action Needed SEVEN Education Provided this Outreach: No Jacquelyn Conley RN February 08, 2023 6:05 PM [facility] 02-08-2023 History of Present illness [...] pounds in a week? No Based on track fitter, the following disposition is advised: Symptoms present, [...] 2023 11:12 AM documented in this encounter [facility] 02-05-2023 Note HNO ID: [id number] Author: Jacquelyn Conley RN Service: ? Author [...] Conley RN February 08, 2023 11:12 AM [facility] 02-05-2023 Note Patient Outreach (AM BCMG) DARCY COVARRUBIAS ([id number]) 1935 M T Date Time Provider Department [...] pounds in a week? No Based on track fitter, the following disposition is advised: Symptoms present, not severe. Routed to: No Action Needed SEVEN Education Provided this Outreach: No Jacquelyn Conley RN February 08, 2023 6:05 PM Allergies As of Date: 02/05/2023 Noted Allergy Reaction INDOCIN (INDOMETHACIN SODIUM) 03/22/2012 8 - GI Upset NORVASC (AMLODIPINE BESYLATE) 12/16/2018 14 - Other: See Comments Comments: Dizziness QMQBFJJ-FGD-LTH REDUCTASE INHIBIT*07/10/2014 14 - Other: See Comments [...] 10 mEq CR capsule Takes Wed/Wed/Sat/Sun (Haile Mratin gave last prescription) - pyridoxine, vitamin B6, (VITAMIN B-6) 100 mg tablet Take 1 tablet by mouth once daily. - torsemide (DEMADEX) 10 mg tablet Take 2 tablets by mouth every Wednesday,Wednesday,Wednesday. - benzonatate (TESSALON PERLES) 100 mg capsule Take 1-2 capsules by mouth three times daily as needed for cough. - Lacto 21-Bifido 5-X-A0-B6-B12 (UP4 PROBIOTICS MEN'S) 50 billion cell -90 mg-30 mcg cap Take 1 tablet by mouth once daily. - atorvastatin (LIPITOR) 40 mg tablet Take 1 tablet by mouth once daily. - Coenzyme L29-Rtgrkyo E 100-100 mg cap Take by mouth. [...] 1 tablet by mouth once daily. - Jgzoj-1-JLC-EPA-Fish Oil 1,000 mg (120 mg-180 mg) cap [...] keratosis [L82.1] 05/08/2011 (more content not included)... [facility] 02-02-2023 Note HNO ID: [id number] Author: Arnold Spencer MD Service: ? Author Type: Physician Type: Progress Notes Filed: 03/01/2023 2:10 AM Note Text: This note was created using [employer]. Subjective Darcy Covarrubias is a 87 year [...] tablets by mouth every Wednesday,Wednesday,Wednesday. Lacto 21-Bifido 8-R-N2-B6-B12 (UP4 PROBIOTICS MEN'S) 50 billion cell -90 mg-30 mcg cap Take 1 tablet by mouth once daily. atorvastatin (LIPITOR) 40 mg tablet Take 1 tablet by mouth once daily. Coenzyme S54-Gjqeckq E 100-100 mg cap Take by mouth. [...] Take 1 tablet by mouth once daily. Jiuaw-6-ATB-EPA-Fish Oil 1,000 mg (120 mg-180 mg) cap [...] making for managemen (more content not included)... [facility] 02-02-2023 History of Present illness [...] tablets by mouth every Wednesday,Wednesday,Wednesday. Lacto 21-Bifido 6-C-R9-B6-B12 (UP4 PROBIOTICS MEN'S) 50 billion cell -90 mg-30 mcg cap Take 1 tablet by mouth once daily. atorvastatin (LIPITOR) 40 mg tablet Take 1 tablet by mouth once daily. Coenzyme V90-Trlmxmi E 100-100 mg cap Take by mouth. [...] Take 1 tablet by mouth once daily. Avlor-6-JBW-EPA-Fish Oil 1,000 mg (120 mg-180 mg) cap [...] Arnold Spencer MD documented in this encounter [facility] 01-08-2023 Note Patient Outreach (AM BCMG) DARCY COVARRUBIAS ([id number]) 1935 M T Date Time Provider Department [...] like to speak with a social work steam train driver to help give you support for any [...] you up for automated weekly questionnaires through [employer]. This is an easy way for us [...] 14 - Other: See Comments Comments: Dizziness CNXPXJS-ZGB-JAV REDUCTASE INHIBIT*07/10/2014 14 - Other: See Comments Comments: myalgia LISINOPRIL 12/12/2020 3 - Cough Date Reviewed: 11/19/2022 Reviewed by: 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 APRN.TESTING TECH - Fully Assessed Reason for Visit: Community [...] as needed for cough. - Lacto 21-Bifido 4-L-U7-B6-B12 (UP4 PROBIOTICS MEN'S) 50 billion cell -90 mg-30 mcg cap Take 1 tablet by mouth once daily. - atorvastatin (LIPITOR) 40 mg tablet Take 1 tablet by mouth once daily. - Coenzyme R76-Rcgpone E 100-100 mg cap Take by mouth. - loperamide (IMODIUM) 2 mg cap(s) (more content not included)... [facility] 01-08-2023 Note HNO ID: [id number] Author: Jacquelyn Conley RN Service: ? Author [...] like to speak with a social work steam train driver to help give you support for any [...] you up for automated weekly questionnaires through [employer]. This is an easy way for us [...] Conley RN January 08, 2023 8:52 AM [facility] 01-08-2023 History of Present illness [...] like to speak with a social work steam train driver to help give you support for any [...] you up for automated weekly questionnaires through [employer]. This is an easy way for us [...] 2023 8:52 AM documented in this encounter [facility] 01-07-2023 Miscellaneous Notes Patient has been identified by name and date of : Yes Spouse phones for refill(s): Requested Prescriptions Pending Prescriptions Disp Refills allopurinol (ZYLOPRIM) 100 mg tablet 180 tablet 1 Sig: Take 2 tablets by mouth once daily. For gout. Last Office Visit: 11/19/22 with 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 Next Visit: 02/02/[address] Palomo Clark, RN documented in this encounter [facility] 12-08-2022 Note HNO ID: [id number] Author: Jacquelyn Conley RN Service: ? Author [...] 12/11/22 Appt with Coco Singh GI/ Friend [facility] Wt 134 lbs, BP 120/80 Denies needs [...] like to speak with a social work steam train driver to help give you support for any [...] you up for automated weekly questionnaires through [employer]. This is an easy way for us [...] Conley RN December 08, 2022 9:17 AM [facility] 12-08-2022 History of Present illness Narrative [facility] TELEPHONIC OUTREACH Provider Action/FYI: Routed Updates to Dr. Palomo DAVENPORT: CHF, CKD Pt denies Sob, wheezing, extremity edema improved Pt noted dry cough when he has acid reflux, he is taking Pepcid OTC which is effective, 12/11/22 Appt with Coco BARRETT/ . Friend [facility] Wt 134 lbs, BP 120/80 Denies needs [...] like to speak with a social work steam train driver to help give you support for any [...] you up for automated weekly questionnaires through [employer]. This is an easy way for us [...] 2022 10:29 AM documented in this encounter [facility] 12-07-2022 Note Patient Outreach (AM BCMG) DARCY COVARRUBIAS ([id number]) 1935 M T Date Time Provider Department [...] 12/11/22 Appt with Coco BARRETT/ . Friend [facility] Wt 134 lbs, BP 120/80 Denies needs [...] like to speak with a social work steam train driver to help give you support for any [...] you up for automated weekly questionnaires through [employer]. This is an easy way for us [...] 14 - Other: See Comments Comments: Dizziness QDLCWAB-NNB-ECE REDUCTASE INHIBIT*07/10/2014 14 - Other: See Comments Comments: myalgia LISINOPRIL 12/12/2020 3 - Cough Date Reviewed: 11/19/2022 Reviewed by: 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 APRN.TESTING TECH - Fully Assessed Reason for Visit: Community Monitoring Outreach [Other] Prescriptions as of 12/08/2022 - torsemide (DEMADEX) 10 mg tablet Take 2 tablets by mouth every Wednesday,Wednesday,Wednesday. - benzonatate (TESSALON PERLES) 100 mg capsule Take 1-2 capsules by mouth three times daily as needed for cough. - Lacto 21-Bifido 4-T-I3-B6-B12 (UP4 PROBIOTICS MEN'S) 50 billion cell -90 mg-30 mcg cap Take 1 tablet by mouth once daily. - magnesium oxide (MAG-OX) 400 mg (241.3 mg magnesium) tablet Take 1 tablet by mouth once daily. - atorvastatin (LIPITOR) 40 mg tablet Take 1 tablet by mouth once daily. - Co (more content not included)... [facility] 12-07-2022 Note HNO ID: [id number] Author: Jacquelyn Conley RN Service: ? Author [...] Conley RN December 07, 2022 10:29 AM [facility] 12-04-2022 Miscellaneous Notes Left message for pt to return phone call. Inquiring about who he is getting his eliquis filled with. Received refill request from [facility]. We have not filled it since 2020. He may be getting assistance through the assistance program. Please verify. Elizabeth Evans RN documented in this encounter [facility] 11-24-2022 Miscellaneous Notes notified and verbalized [...] have a refill. Please call her at [phone] Spoke with patients . Patient called cardiology as soon as they left appointment with SUSHMA Bellamy. Senior Functional Analyst put him on Spirolactone and potassium and wanted him to have labs done wed,wed, or and once they have lab work back she is to call for an appt with them. Please check to see how he is doing re: cough and if he has a cardiology appointment upcoming. documented in this encounter [facility] 11-20-2022 Miscellaneous Notes Joseph needs a refill on Torsemide 10 mg but Deirdre said that they told you the library media specialist put him on Torsemide 20 mg on Wednesday, Wednesday and Wednesday. Deirdre want you to remember that when you refill the prescription. Please send to [facility]. Any questions call Deirdre [phone] documented in this encounter [facility] 11-19-2022 Note HNO ID: [id number] Author: RT Ellen(R) Service: Nuclear Medicine Author [...] Plaza, (R) November 19, 2022 2:26 PM [facility] 11-19-2022 Note HNO ID: [id number] Author: 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 APRN.TESTING TECH Service: ? Author Type: Nurse Specialist Type: [...] of Left Shoulder Coronary Artery Disease Involving [place] Coronary Artery of [place] Heart Without Angina Pectoris S/P Cabg (Coronary [...] from previous visit: He was admitted to [facility] July 13 through July 15 with progressively worsening shortness of breath for several weeks prior to arrival along with chest discomfort. Recent echocardiogram at [facility] showed ejection fraction of 20%, severe global hypokinesis, 1-2+ eccentric mitral regurgitation, RVSP 44 mmHg. 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 He was treated with Lasix 40 mg IV twice daily while hospitalized. 1500 mL fluid restriction. Daily weights. Kidney and electrolyte monitoring. Followed by [facility], . He was seen by [...] and magnesium advised. Advised to follow-up with batch trucker and library media specialist. Advised to follow-up with urologist Dr. Douglas. [...] Right Ear: Tympa (more content not included)... [facility] 11-05-2022 Note HNO ID: [id number] Author: Jacquelyn Conley, RN Service: ? Author [...] like to speak with a social work steam train driver to help give you support for any [...] you up for automated weekly questionnaires through [employer]. This is an easy way for us [...] Conley RN November 05, 2022 10:17 AM [facility] 11-05-2022 History of Present illness [...] like to speak with a social work steam train driver to help give you support for any [...] you up for automated weekly questionnaires through [employer]. This is an easy way for us [...] RN November 05, 2022 10:[address] [facility] TELEPHONIC OUTREACH Provider Action/FYI: CHF/ CKD: Called [...] RN November 04, 2022 9:[address] [facility] TELEPHONIC OUTREACH Provider Action/FYI: Called Pt left a message to verify symptom status and needs. Instructed to call PCP with any symptom or condition changes. Contact made with patient: No - Left message Hello my name is Jacquelyn Conley RN your Manufacturing Planner from the [facility] I am calling today for your [...] 2022 12:21 PM documented in this encounter [facility] 11-04-2022 Note HNO ID: [id number] Author: Jacquelyn Conley RN Service: ? Author [...] Conley RN November 04, 2022 9:39 AM [facility] 11-03-2022 Note HNO ID: [id number] Author: Cat Chavira MD Service: ? Author Type: Physician Type: Progress Notes Filed: 11/03/2022 6:17 PM Note Text: [facility] KIDNEY MEDICINE PENDING SALE TO [facility] SERVICE DATE: 11/03/2022 [...] of Left Shoulder Coronary Artery Disease Involving [place] Coronary Artery of [place] Heart Without Angina Pectoris S/P Cabg (Coronary [...] Diastolic Heart Failure (Hcc) MEDICATIONS: Lacto 21-Bifido 1-Z-V4-B6-B12 (UP4 PROBIOTICS MEN'S) 50 billion cell -90 [...] Tablet Every Wednesday, Wednesday, and Wednesday) Coenzyme D18-Cijglwh E 100-100 mg capTake by mouth.Disp: Rfl: [...] by mouth once daily.Disp: 30 tabletRfl: 0 Eipfl-9-KJI-EPA-Fish Oil 1,000 mg (120 mg-180 mg) capTake [...] No sig reported) (more content not included)... [facility] 11-03-2022 History of Present illness Narrative [facility] KIDNEY MEDICINE PENDING SALE TO [facility] SERVICE DATE: 11/03/2022 [...] of Left Shoulder Coronary Artery Disease Involving [place] Coronary Artery of [place] Heart Without Angina Pectoris S/P Cabg (Coronary [...] Diastolic Heart Failure (Hcc) MEDICATIONS: Lacto 21-Bifido 3-T-I5-B6-B12 (UP4 PROBIOTICS MEN'S) 50 billion cell -90 [...] Tablet Every Wednesday, Wednesday, and Wednesday) Coenzyme M22-Teathtz E 100-100 mg cap^Take by mouth.^Disp: ^Rfl: [...] by mouth once daily.^Disp: 30 tablet^Rfl: 0 Bbgil-5-XMG-EPA-Fish Oil 1,000 mg (120 mg-180 mg) cap^Take [...] Upset Norvasc [Amlodipine* Other: See Comments Dizziness Vipjpar-Zzv-Vab Red* Other: See Comments myalgia Lisinopril Cough [...] 07/28/2022 6.0 5.0 - 8.0 Final Specific [place], [place] Date Value Ref Range Status 07/28/2022 [...] Staff, Department of Kidney Medicine Pager # [phone] 11/03/22 3:09 PM CC: PRIMARY CARE PHYSICIAN: Arnold Spencer MD documented in this encounter [facility] 11-02-2022 Note HNO ID: [id number] Author: Jacquelyn Conley RN Service: ? Author Type: Registered Nurse Type: Progress Notes Filed: 11/05/2022 10:38 AM Note Text: [facility]LE[facility]RE[facility] Provider Action/FYI: Called Pt left a message to verify symptom status and needs. Instructed to call PCP with any symptom or condition changes. Contact made with patient: No - Left message Hello my name is Jacquelyn Conley RN your Manufacturing Planner from the [facility] I am calling today for your bi-weekly check in. I am sorry I missed your call. I will reach out to you again tomorrow. (if the third call I will reach out to you again next week) Enter next patient outreach date for the following day using the Track Pt Outreach. End outreach. Jacquelyn Conley RN November 02, 2022 12:21 PM [facility] 11-02-2022 Note Patient Outreach (AM BCMG) DARCY COVARRUBIAS ([id number]) 1935 M T Date Time Provider Department 11/02/22 [facility] [place] your visit today, we recorded the following information about you: Jacquelyn Conley RN 11/05/2022 10:[address] [facility] TELEPHONIC OUTREACH Provider Action/FYI: Called Pt left a message to verify symptom status and needs. Instructed to call PCP with any symptom or condition changes. Contact made with patient: No - Left message Iva my name is Jacquelyn Conley RN your Manufacturing Planner from the [facility] I am calling today for your [...] Jacquelyn Conley RN 11/05/2022 10:38 AM [address] [facility] TELEPHONIC OUTREACH Provider Action/FYI: CHF/ CKD: Called [...] Conley RN November 04, 2022 9:39 AM Jaqcuelyn Conley RN 11/05/2022 10:38 [address] [facility] TELEPHONIC OUTREACH Provider Action/FYI: Spk with Pt, [...] like to speak with a social work steam train driver to help give you support for any [...] you up for automated weekly questionnaires through [employer]. This is an easy way for us [...] See Comments Comments: (more content not included)... [facility] 10-14-2022 Miscellaneous Notes The following [...] Blanquita Mireles RN documented in this encounter [facility] 10-09-2022 Miscellaneous Notes Patient has been [...] you. Dorothy Navarrete documented in this encounter [facility] 09-29-2022 History of Present illness Narrative [...] is receiving Physical Therapy 2x week at [facility] in [place] BP 118-120/80, wt 150 lbs Gastroenterology Appt 10/06/22 Coco Singh at [facility] ADL/ Falls/ Goals completed Contact made [...] like to speak with a social work steam train driver to help give you support for any [...] you up for automated weekly questionnaires through [employer]. This is an easy way for us [...] 2022 9:36 AM documented in this encounter [facility] 08-28-2022 History of Present illness Narrative [...] Partha Santana PA-C documented in this encounter [facility] 08-28-2022 History of Present illness Narrative [...] like to speak with a social work steam train driver to help give you support for any [...] you up for automated weekly questionnaires through [employer]. This is an easy way for us [...] 2022 11:52 AM documented in this encounter [facility] 08-19-2022 History of Present illness Narrative [...] Staff, Department of Kidney Medicine Pager # [phone] 08/19/22 5:36 PM documented in this encounter [facility] 08-11-2022 Miscellaneous Notes Pts called and is notified of providers message. Pt voices understanding, Pts will call and schedule appointment with Dr Fox. Orders, most recent OV, and most recent labs were sent to Dr Fox at [phone]. Araceli Hassan RN Patient's calls is asking if patient can have a rim turning finisher referral. Patient was seen at Dr. Ortega and nurse practitioner suggested that patient have a referral for a rim turning finisher due to patient's chronic diarrhea. asking for referral. Please review and advise, Mary Hogan RN documented in this encounter [facility] 08-10-2022 Miscellaneous Notes Pt's called and [...] Ivana Roberts LPN documented in this encounter [facility] 08-07-2022 History of Present illness Narrative [facility] TELEPHONIC OUTREACH Provider Action/FYI: Routed updates to Dr. Spencer/ 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 CNP . Pt and are requesting a call to them directly with a Gastroenterology referral. Spk with Pt, he noted was diagnosed with Covid, Admitted 07/13/22 to [facility] due to dehydration. Pt denies current Sob, wheezing, coughing or edema, BP 117/68, wt 148 lbs, he is speaking in full sentences, no respiratory distress. Pt and is asking for a Gastroenterology referral for Acid reflux and intermittent diarrhea for past 4 months. noted he was checked for and negative for C-Diff at [facility]. Pt completed Appt 08/04/[address] Oquendos / Monik Gilbert NAPHTHOL SOAPING MACHINE OPERATOR, Echo is scheduled 08/17/22 at [facility], Deirdre noted Cardiology stated Joseph may need [...] like to speak with a social work steam train driver to help give you support for any [...] you up for automated weekly questionnaires through [employer]. This is an easy way for us [...] 2022 11:41 AM documented in this encounter [facility] 08-04-2022 Miscellaneous Notes Faxed Ordered, please print and fax Enid Marie APRN.SB Wanting a referral to [facility] for physical therapy. Lindsey Gómez LPN documented in this encounter [facility] 07-31-2022 Instructions Cat Chavira MD - [...] in 3 months documented in this encounter [facility] 07-31-2022 History of Present illness Narrative [facility] KIDNEY MEDICINE PENDING SALE TO [facility] SERVICE DATE: 07/31/2022 [...] exam Interval hx: Pt was admitted to [facility] July 13 through July 15 with [...] Diarrhea has also improved (he states that Ukrainian cheese helps him with that). He is continued on torsemide 10 mg daily, compliant with medication. 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 Paroxysmal Atrial Fibrillation (Hcc) Carotid Stenosis, Asymptomatic Hyperglycemia Anemia of Chronic Disease Ckd (Chronic Kidney Disease), Stage Iii (Hcc) Lumbar Spinal 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 ([facility]) Non-Rheumatic Mitral Regurgitation Acute Idiopathic Gout Involving [...] pounds or more/1week^Disp: 30 tablet^Rfl: 1 Coenzyme C40-Kkwrigq E 100-100 mg cap^Take by mouth.^Disp: ^Rfl: [...] by mouth once daily.^Disp: 30 tablet^Rfl: 0 Jokto-3-RUO-EPA-Fish Oil 1,000 mg (120 mg-180 mg) cap^Take [...] Upset Norvasc [Amlodipine* Other: See Comments Dizziness Mxogotd-Rqj-Rgr Red* Other: See Comments myalgia Lisinopril Cough [...] 07/28/2022 6.0 5.0 - 8.0 Final Specific [place], Ur Date Value Ref Range Status 07/28/2022 [...] Staff, Department of Kidney Medicine Pager # [phone] 07/30/22 8:53 PM CC: PRIMARY CARE PHYSICIAN: Arnold Spencer MD documented in this encounter [facility] 2022 Miscellaneous Notes Pt and called and notified of providers results and instructions. They voice understanding. Araceli Hassan RN Labs show creatinine improved. Potassium improved. BUN elevated. Recommend sufficient fluid intake and one torsemide daily today and tomorrow, then adjust according to batch trucker recommendations. Glucose elevated, will check A1c with [...] (L) 31 (L) documented in this encounter [facility] 07-28-2022 History of Present illness Narrative Images from the original note were not included. PENDING SALE TO [facility] FOR [facility]'S [...] pounds or more/1week^Disp: 30 tablet^Rfl: 1 Coenzyme K44-Vdiqsgz E 100-100 mg cap^Take by mouth.^Disp: ^Rfl: [...] ^Rfl: (Patient not taking: No sig reported) Jbhit-5-JJC-EPA-Fish Oil 1,000 mg (120 mg-180 mg) cap^Take [...] . CC Post Void Residual HPI: Darcy Coavrrubias is a 86 year old male. The [...] Appointment with Partha. documented in this encounter [facility] 07-21-2022 Instructions 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 APRN.TESTING TECH - 07/21/2022 3:36 PM EDT Take torsemide 10 mg daily. Take an additional 10 mg dose if leg swelling, shortness of breath or 3 pound or greater weight gain. Take potassium once daily while taking torsemide documented in this encounter [facility] 07-21-2022 History of Present illness Narrative [...] s visit. HPI: He was admitted to [facility] July 13 through July 15 with progressively worsening shortness of breath for several weeks prior to arrival along with chest discomfort. Recent echocardiogram at [facility] showed ejection fraction of 20%, severe global hypokinesis, 1-2+ eccentric mitral regurgitation, RVSP 44 mmHg. 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 He was treated with Lasix 40 mg IV twice daily while hospitalized. 1500 mL fluid restriction. Daily weights. Kidney and electrolyte monitoring. Followed by [place] [facility], . He was seen by [...] and magnesium advised. Advised to follow-up with batch trucker and library media specialist. Advised to follow-up with urologist Dr. Douglas. [...] immunization - ICD9: V03.89, ICD10: Z23 - PFI[employer]ER[employer] COVID-19 BIVALENT BOOSTER VACCINE, AGE 12+ YR [...] 2022 12:59 PM documented in this encounter [facility] 07-17-2022 History of Present illness Narrative [...] 2022 2:01 PM documented in this encounter [facility] 07-16-2022 History of Present illness Narrative TRANSITION CARE MANAGEMENT (TCM) INITIAL CONTACT [facility] Outreach Provider Action/FYI: TCM Initial contact with patient post discharge, spoke to spouse. Patient identified by name and . TRANSITION CARE MANAGEMENT INITIAL OUTREACH DOCUMENTATION: Date of Outreach: 07/16/2022 Outreach Attempt 1: Contact Made Date of Discharge 07/15/2022 Some recent data might be hidden SUMMARY: -Pt discharged from [facility] on 07/15/22. -Admitted for: chest pain and [...] pt spironolactone since the torsemide was increased. [facility] did not have spironolactone on pts discharge med list. Were any of your medications discontinued? No Do you have any questions about getting or taking your medications? Yes she will review at 07/21/22 appt with WIRE HARNESS ASSEMBLER. She has also reached out to the batch trucker to get a sooner appt since pt [...] stay with [facility]. documented in this encounter [facility] 07-16-2022 Miscellaneous Notes Joseph's Deirdre called saying after the appointment on 07/10 Joseph ended up in the hospital. When he was released they suggested that he come and see you within 2 weeks but you have no appointments until August. would like for you to call. [phone]. Patient was admitted to in [place]. documented in this encounter [facility] 07-10-2022 Instructions Cat Chavira MD - [...] for further instruction. Please, follow with your library media specialist at your closest convenience Follow up in 2-3 months with blood test prior to your appt documented in this encounter [facility] 07-10-2022 History of Present illness Narrative [facility] KIDNEY MEDICINE PENDING SALE TO [facility] SERVICE DATE: 07/10/2022 [...] 2 Sprays in the nose once daily. [place] [facility]^Disp: ^Rfl: cyanocobalamin (VITAMIN B-12) 1,000 mcg tab^Take 1 tablet by mouth once daily.^Disp: 30 tablet^Rfl: 0 Njkxk-1-SKI-EPA-Fish Oil 1,000 mg (120 mg-180 mg) cap^Take [...] Upset Norvasc [Amlodipine* Other: See Comments Dizziness Vhumabm-Kah-Zrk Red* Other: See Comments myalgia Lisinopril Cough [...] 06/14/2015 6.5 5.0 - 8.0 Final Specific [place], Ur Date Value Ref Range Status 06/14/2015 [...] Calcium, Total (mg/dL) Date Value 07/06/2022 9.2 [facility] [address] [place] [address] Echo Complete 03/27/22 0808 MR#: [id number] Acct: [id number] Name: DARCY COVARRUBIAS Rep #:[id number] : 1935 86 From: Destin Harvey MD Attending Dr: Dr. Destin Harvey MD S tatus: REG CLI Ordering Dr: Destin Harvey MD Date: 01/13 Location: [facility] Sex: M C Admitted: Reason For Study: [...] Transcribed: 03/27/22 110 Kidney and Bladder MR#: [id number] Acct: [id number] Name: DARCY COVARRUBIAS Rep #: [id number] : 1935 M 86 From: [facility] katya Epes PCP: Dr. Arnold Spencer MD Status: AD M IN Study:Kidney and Bladder Date of Exam: 0 05/09/22 Exam# [id number] Ordering Dr: Yisel Pablo MD STUDY: RENAL [...] 21:29 EDT Reading Location ID and State: [address] [place] [address] Tel [phone], Service support , ASSESSMENT: 86 year old male who presents with impaired kidney function. Encounter Diagnosis ICD-10-CM 1. Chronic combined systolic and diastolic congestive heart failure ([facility]) I50.42 NT PRO BNP torsemide (DEMADEX) 10 mg tablet RENAL FUNCTION PANEL DISCONTINUED: furosemide (LASIX) 20 mg tablet 2. MARCOS (acute kidney injury) ([facility]) N17.9 NT PRO BNP URINALYSIS, WITH MICROSCOPIC PROTEIN CREATININE RATIO ALBUMIN/CREAT RATIO RND UR MONOCLONAL PROTEIN, SERUM (BLOOD) US KIDNEY/BLADDER torsemide (DEMADEX) 10 mg tablet RENAL FUNCTION PANEL 3. Hydronephrosis, unspecified hydronephrosis type N13.30 US KIDNEY/BLADDER 4. Edema, unspecified type R60.9 5. Chronic combined systolic and diastolic CHF (congestive heart failure) ([facility]) I50.42 6. Diarrhea, unspecified type R19.7 [...] started. Patient is still follow-up with his library media specialist at his closest convenience -RTC in 2 [...] Staff, Department of Kidney Medicine Pager # [phone] 07/10/22 4:16 PM CC: REFERRING PROVIDER: [facility] PRIMARY CARE PHYSICIAN: Arnold Spencer MD documented in this encounter [facility] 06-23-2022 Instructions 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 APRN.CNS - 06/23/2022 2:53 PM EDT Check labs today Decrease or discontinue your dose of fiber for now to see if decreases number of bowel movements. Stay on lasix for one month documented in this encounter [facility] 06-23-2022 History of Present illness Narrative [...] last here he has been seen by [place] [facility]. His metoprolol was discontinued and he was started on carvedilol 25 mg twice daily by the library media specialist. Stress test and echocardiogram was ordered. He was admitted to [facility] emergency department with a complaint of [...] nephrology in 1 to 2 weeks. Notes batch trucker ordered labs. Follow-up lab work: yesterday; not viewable in epic Will be seeing Sheri Tin Can Feeder, not CC provider. Was taking sodium bicarb [...] Upset Norvasc [Amlodipine* Other: See Comments Dizziness Pzzmqso-Rdb-Mjz Red* Other: See Comments myalgia Lisinopril Cough [...] for wheezing/shortness of breath.^Disp: 6.7 g^Rfl: 0 Ojfra-5-HJS-EPA-Fish Oil (FISH OIL) 1,000 mg (120 mg-180 [...] 4.00 k/uL 1.25 0.94 (L) 0.96 (L) Hawkins% % 9.1 10.6 11.6 Abs Hawkins <0.87 k/uL 0.56 0.55 0.68 Eosin% % [...] M79.89 (primary diagnosis) - BASIC METABOLIC PNL 5.AMRCOS (acute kidney injury) (HCC) - ICD9: 584.9, [...] 4 - Moderate\ documented in this encounter [facility] 06-18-2022 Miscellaneous Notes Patient's notified of [...] Please advise . documented in this encounter [facility] 06-15-2022 History of Present illness Narrative [...] and patient's preferred method of contact (telephone, ExpertFlyer, Celtro), your name, your contact number. Informed patient [...] 2022 1:36 PM documented in this encounter [facility] 06-15-2022 History of Present illness Narrative Virtualist Distance Health Note (Community monitoring/CC HC/H@[facility] escalations) Adult seen for Monitoring Track: Chronic Disease Management Contacted by phone, ExpertFlyer, Celtro, Adriom, Doximity, other: phone History of present [...] in as Primary Virtualist, Secondary Virtualist, or [facility] Telehealth provider: Primary SIGNATURE: Carine Faria MD PATIENT NAME: Darcy Covarrubias DATE: June 15, 2022 documented in this encounter [facility] 06-05-2022 History of Present illness Narrative This note was created using Armut. Subjective Darcy Covarrubias is a 86 year [...] 2 Sprays in the nose once daily. [place] [facility] cyanocobalamin (VITAMIN B-12) 1,000 mcg tab Take 1 tablet by mouth once daily. Ssoag-4-MLD-EPA-Fish Oil (FISH OIL) 1,000 mg (120 mg-180 [...] re-evaluation as needed. Also, follow up with library media specialist if ongoing issues with leg swelling, or [...] Arnold Spencer MD documented in this encounter [facility] 05-29-2022 History of Present illness Narrative [facility] TELEPHONIC OUTREACH Provider Action/FYI: Call to Pt left a message to verify CHF/ CKD or other symptoms or needs. Contact made with patient: No - Left message Hello my name is Jacquelyn Conley RN your Manufacturing Planner from the [facility] I am calling today for your [...] 2022 1:21 PM documented in this encounter [facility] 05-26-2022 History of Present illness Narrative Transitional Care Management Progress Note The patients TCM visit was performed within the 14 days of discharge. Patient's Date of discharge: May 13 Date of initial coordinator contact after discharge: May 15 Discharge diagnosis: Acute COVID 19, acute kidney injury Medication review completed yes 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 APRN.TESTING TECH Provider Documentation: In follow-up of hospitalization, Darcy [...] s visit. HPI: He was admitted to [facility] emergency department with a complaint of [...] nephrology in 1 to 2 weeks. Notes batch trucker ordered labs. Follow-up lab work: yesterday; not viewable in epic Will be seeing Sheri Tin Can Feeder, not CC provider. Was taking sodium bicarb [...] ICD9: 276.8, ICD10: E87.6 Labs ordered through batch trucker today will be having a phone visit with tomorrow for follow-up. [place] [facility] 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 APRN.CNS May 26, 2022 8:30 AM documented in this encounter [facility] 05-15-2022 History of Present illness Narrative noted TRANSITION CARE MANAGEMENT (TCM) INITIAL CONTACT [facility] Outreach Provider Action/FYI: TCM Initial contact with patient post discharge, spoke to spouse. Patient identified by name and . TRANSITION CARE MANAGEMENT INITIAL OUTREACH DOCUMENTATION: Date of Outreach: 05/15/2022 Outreach Attempt 1: Contact Made Date of Discharge 05/13/2022 Some recent data might be hidden SUMMARY: -Pt discharged from [facility] on 05/13/22. -Admitted for: acute kidney injury, acute COVID Do you have a hospital follow up appointment with your PCP? Appointment on 05/26/22 with 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 WIRE HARNESS ASSEMBLER. Yes. Remind patient of appointment date, time, [...] up with nephrology documented in this encounter [facility] 05-15-2022 Miscellaneous Notes Info relayed to [...] to the hospital. documented in this encounter [facility] 05-12-2022 History of Present illness Narrative INSIGHT CD TELEPHONIC OUTREACH Provider Action/FYI: Updates routed to Dr. Spencer [facility] 05/07/22 Diarrhea, MARCOS ( C-Diff) treated with [...] like to speak with a social work steam train driver to help give you support for any [...] you up for automated weekly questionnaires through [employer]. This is an easy way for us [...] 2022 8:14 AM documented in this encounter [facility] 05-08-2022 Miscellaneous Notes noted Patient's calls [...] would recommend a visit either with his library media specialist or us for recheck. Pts called in [...] building for a while now. PCP and Senior Functional Analyst have been trying to change medications around to see if that would help. Senior Functional Analyst took him off of Metoprolol and Losartan (04/01), and put him on Entresto 49-51 twice a day. Med list has been updated. is worried about and called pharmacy and they said they didn't see anything on his med list that should be causing him to be so tired, and told her to call PCP. Please call and advise. documented in this encounter [facility] 05-07-2022 Miscellaneous Notes His carotid ultrasound looks good. No significant change. If he is doing well, would recommend repeating ultrasound in 6 months Patient called and informed Encounter closed Joseph had testing done today and would like to be called on his home phone, with results. documented in this encounter [facility] 04-10-2022 History of Present illness Narrative [...] like to speak with a social work steam train driver to help give you support for any [...] you up for automated weekly questionnaires through [employer]. This is an easy way for us [...] 2022 10:39 AM documented in this encounter [facility] 03-26-2022 History of Present illness Narrative [facility] TELEPHONIC OUTREACH Provider Action/FYI: Routed updates to Dr. Spencer and 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 Spangelito with Deirdre she noted Joseph has mild intermittent Sob with exertion, climbing the steps at [employer], He completed 03/06/[address] Harvey Cardiology, is scheduled 03/27/22 for a stress Test and Echo at [facility]. BP 126/80, wt 150 lbs Contact [...] like to speak with a social work steam train driver to help give you support for any [...] you up for automated weekly questionnaires through [employer]. This is an easy way for us [...] 2022 4:19 PM documented in this encounter [facility] 03-19-2022 History of Present illness Narrative INSIGHT [facility] TELEPHONIC OUTREACH Provider Action/FYI: Call to Pt, left a message, related to CHF/ CKD symptom status and needs. Contact made with patient: No - Left message Hello my name is Jacquelyn Conley RN your Manufacturing Planner from the [facility] I am calling today for your [...] 2022 4:47 PM documented in this encounter [facility] 03-18-2022 History of Present illness Narrative INSIGHT [facility] TELEPHONIC OUTREACH Provider Action/FYI: Call to Pt left a message to verify CHF/ CKD symptom status, and needs. Contact made with patient: No - Left message Hello my name is Jacquelyn Conley RN your Manufacturing Planner from the [facility] I am calling today for your [...] 2022 3:18 PM documented in this encounter [facility] 03-16-2022 History of Present illness Narrative INSIGHT CDM TELEPHONIC OUTREACH Provider Action/FYI: Call to Pt, left a message, related to CHF/ CKD symptom status and needs. Contact made with patient: No - Left message Iva my name is Jacquelyn Conley RN your Manufacturing Planner from the [facility] I am calling today for your [...] 2022 4:20 PM documented in this encounter [facility] 03-10-2022 History of Present illness Narrative [...] history. Has been seen by Dr. Lanza, library media specialist [place] April 2021. At that visit he [...] help too much. Did have a spine hotel front desk agent reported to lasted a few days and [...] for follow-up visit having been seen at [facility] emergency department yesterday, January 05, 2022 [...] was unable to get into see a library media specialist with [facility] locally so he made an appointment with [place] [facility]. Since last here he has been seen by [place] [facility]. His metoprolol was discontinued and he was started on carvedilol 25 mg twice daily by the library media specialist. Stress test and echocardiogram was ordered. Without [...] Upset Norvasc [Amlodipine* Other: See Comments Dizziness Kwceyqo-Xay-Ayd Red* Other: See Comments myalgia Lisinopril Cough [...] in the nose once daily. [facility] Swflx-5-YHN-EPA-Fish Oil (FISH OIL) 1,000 mg (120 mg-180 [...] 4.00 k/uL 1.25 0.94 (L) 0.96 (L) Hawkins% % 9.1 10.6 11.6 Abs Hawkins <0.87 k/uL 0.56 0.55 0.68 Eosin% % [...] difference for him. He will follow with [place] [facility] now. Echocardiogram stress test has been ordered and is being completed at [facility]. 2. S/P CABG (coronary artery bypass graft) - ICD9: V45.81, ICD10: Z95.1 3. Essential hypertension - ICD9: 401.9, ICD10: I10 controlled 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 APRN.CNS Medical Decision Making: Problems: Moderate: 1+ chronic illnesses with change Data: Unique test result(s) reviewed: 2 Medical Decision Making Level: 3 - Low \ documented in this encounter [facility] 03-06-2022 History of Present illness Narrative [facility] TELEPHONIC OUTREACH Provider Action/FYI: Call to Pt, left a message, related to CHF/ CKD symptom status and needs. Contact made with patient: No - Left message Hello my name is Jacquelyn Conley RN your Manufacturing Planner from the [facility] I am calling today for your [...] RN March 06, 2022 10:[address] [facility] TELEPHONIC OUTREACH Provider Action/FYI: Call to Pt [...] 2022 9:36 AM documented in this encounter [facility] 02-12-2022 Miscellaneous Notes Last seen WIRE HARNESS ASSEMBLER 01/13/22 Next appt 03/10/22 Patient has been identified by name and date of : Yes Pending Prescriptions Disp Refills LOSARTAN 50 MG TABLET 90 tablet 3 Sig: Take 1 tablet by mouth once daily. ANASTASIYA: No RX INSTRUCTIONS: Patient aware RX will be sent to pharmacy. No need to notify patient. Tish Duran documented in this encounter [facility] 02-03-2022 History of Present illness Narrative [...] like to speak with a social work steam train driver to help give you support for any [...] you up for automated weekly questionnaires through [employer]. This is an easy way for us [...] 2022 10:43 AM documented in this encounter [facility] documented as of this encounter (statuses as of 02/09/2023) [facility] History of Past illness Narrative* Problem [...] of this encounter (statuses as of 03/01/2023) [facility] Narrative* Problem [...] of this encounter (statuses as of 03/05/2023) [facility] Narrative* Problem [...] of this encounter (statuses as of 04/02/2023) [facility] Narrative* Problem [...] of this encounter (statuses as of 05/06/2023) [facility] Narrative* Problem [...] of this encounter (statuses as of 05/16/2023) [facility]* Problem [...] of this encounter (statuses as of 06/05/2023) [facility] Narrative* Problem [...] of this encounter (statuses as of 06/22/2023) [facility] N[facility]* Problem [...] of this encounter (statuses as of 07/17/2023) [facility] N[facility]* Problem [...] of this encounter (statuses as of 08/10/2023) [facility] Narrative* Problem [...] of this encounter (statuses as of 08/10/2023) [facility] N[facility]ative* Problem [...] of this encounter (statuses as of 02/03/2022) [facility] N[facility]* Problem [...] of this encounter (statuses as of 02/12/2022) [facility]* Problem [...] of this encounter (statuses as of 03/06/2022) [facility]* Problem [...] of this encounter (statuses as of 03/10/2022) [facility]* Problem [...] of this encounter (statuses as of 03/13/2022) [facility]* Problem [...] of this encounter (statuses as of 03/13/2022) [facility]* Problem [...] of this encounter (statuses as of 03/18/2022) [facility]* Problem [...] of this encounter (statuses as of 03/19/2022) [facility]* Problem [...] of this encounter (statuses as of 03/19/2022) [facility]* Problem [...] of this encounter (statuses as of 03/26/2022) [facility]* Problem [...] of this encounter (statuses as of 04/10/2022) [facility]* Problem [...] of this encounter (statuses as of 05/07/2022) [facility]* Problem [...] of this encounter (statuses as of 05/08/2022) [facility]* Problem [...] of this encounter (statuses as of 05/12/2022) [facility]* Problem [...] of this encounter (statuses as of 05/15/2022) [facility]* Problem [...] of this encounter (statuses as of 05/15/2022) [facility]* Problem [...] of this encounter (statuses as of 05/26/2022) [facility]* Problem [...] of this encounter (statuses as of 05/29/2022) [facility]* Problem [...] of this encounter (statuses as of 06/15/2022) [facility]* Problem [...] of this encounter (statuses as of 06/15/2022) [facility]* Problem [...] of this encounter (statuses as of 06/18/2022) [facility]* Problem [...] of this encounter (statuses as of 06/23/2022) [facility]* Problem [...] of this encounter (statuses as of 07/11/2022) [facility]* Problem [...] of this encounter (statuses as of 07/16/2022) [facility]* Problem [...] of this encounter (statuses as of 07/17/2022) [facility]* Problem [...] of this encounter (statuses as of 07/21/2022) [facility]* Problem [...] of this encounter (statuses as of 07/22/2022) [facility]* Problem [...] of this encounter (statuses as of 07/28/2022) [facility]* Problem [...] of this encounter (statuses as of 2022) [facility] of [facility]* Problem [...] of this encounter (statuses as of 07/31/2022) [facility]* Problem [...] of this encounter (statuses as of 08/03/2022) [facility]* Problem [...] of this encounter (statuses as of 08/04/2022) [facility]* Problem [...] of this encounter (statuses as of 08/07/2022) [facility]* Problem [...] of this encounter (statuses as of 08/10/2022) [facility]* Problem [...] of this encounter (statuses as of 08/11/2022) [facility]* Problem [...] of this encounter (statuses as of 08/15/2022) [facility]* Problem [...] of this encounter (statuses as of 08/19/2022) [facility]* Problem [...] of this encounter (statuses as of 08/28/2022) [facility]* Problem [...] of this encounter (statuses as of 08/28/2022) [facility]* Problem [...] of this encounter (statuses as of 09/30/2022) [facility]* Problem [...] of this encounter (statuses as of 10/09/2022) [facility]* Problem [...] of this encounter (statuses as of 10/16/2022) [facility]* Problem [...] of this encounter (statuses as of 11/04/2022) [facility]* Problem [...] of this encounter (statuses as of 11/05/2022) [facility]* Problem [...] of this encounter (statuses as of 11/20/2022) [facility]* Problem [...] of this encounter (statuses as of 11/20/2022) [facility]* Problem [...] of this encounter (statuses as of 11/24/2022) [facility]* Problem [...] of this encounter (statuses as of 12/04/2022) [facility]* Problem [...] of this encounter (statuses as of 12/05/2022) [facility]* Problem [...] of this encounter (statuses as of 12/08/2022) [facility]* Problem [...] of this encounter (statuses as of 01/07/2023) [facility]* Problem [...] of this encounter (statuses as of 01/08/2023) [facility] Diagnosis Congestive heart failure, unspecified HF chronicity, unspecified heart failure type (HCC)- Primary 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 Essential hypertension Unspecified essential hypertension [facility] Diagnosis Bradycardia Other specified cardiac dysrhythmias [facility] Diagnosis Bilateral carotid artery stenosis- Primary Occlusion and stenosis of carotid artery without mention of cerebral infarction [facility] Diagnosis COVID-19- Primary MARCOS (acute kidney injury) (HCC) Acute kidney failure, unspecified Hypokalemia Hypopotassemia [facility] Diagnosis Peripheral edema- Primary Edema Cough, unspecified type [facility] Diagnosis Leg swelling- Primary Swelling of limb MARCOS (acute kidney injury) (HCC) Acute kidney failure, unspecified 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 Essential hypertension Unspecified essential hypertension 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 [facility] Diagnosis 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 Chronic combined systolic and diastolic heart failure MARCOS (acute kidney injury) (HCC) Acute kidney failure, unspecified Hydronephrosis, unspecified hydronephrosis type Edema, unspecified type Chronic combined systolic and diastolic CHF (congestive heart failure) (HCC) Chronic combined systolic and diastolic heart failure Diarrhea, unspecified type [facility] Diagnosis MARCOS (acute kidney injury) (HCC)- Primary Acute kidney failure, unspecified [facility] Diagnosis Acute on chronic systolic CHF [...] kidney failure, unspecified [facility] Diagnosis 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 [facility] Diagnosis Elevated glucose- Primary Other abnormal glucose [facility] Diagnosis MARCOS (acute kidney injury) (HCC)- Primary Acute kidney failure, unspecified Edema, unspecified type Hydronephrosis, unspecified hydronephrosis type Essential hypertension Unspecified essential hypertension 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 Gout with other specified manifestations [facility] Diagnosis Chronic cough- Primary Cough LPRD (laryngopharyngeal reflux disease) Other diseases of larynx Leg swelling Swelling of limb Collagenous colitis Other and unspecified noninfectious gastroenteritis and colitis Personal history of COVID-19 Essential hypertension Unspecified essential hypertension 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 [facility] Diagnosis 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 Spinal stenosis, lumbar region, with neurogenic claudication Osteoarthritis of spine with radiculopathy, lumbar region [facility] Diagnosis MARCOS (acute kidney injury) (HCC)- Primary Acute kidney failure, unspecified Hypomagnesemia Disorders of magnesium metabolism Edema, unspecified type Heart failure, unspecified HF chronicity, unspecified heart failure type (HCC) [facility] Diagnosis 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- Primary Benign prostatic hyperplasia with urinary retention [facility] Diagnosis Stage 3b chronic kidney disease (HCC)- Primary Essential hypertension Unspecified essential hypertension 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 Hydronephrosis, unspecified hydronephrosis type Edema, unspecified type Diarrhea, unspecified type [facility] Diagnosis 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 MARCOS (acute kidney injury) (HCC) Acute kidney failure, unspecified documented in this encounter [facility] note* Diagnosis MARCOS (acute kidney injury) (HCC)- Primary Acute kidney failure, unspecified documented in this encounter [facility] note* Diagnosis Hyperuricemia Other abnormal blood chemistry documented in this encounter [facility] note* Diagnosis Essential hypertension- Primary Unspecified essential hypertension Hyperuricemia Other abnormal blood chemistry Mixed hyperlipidemia Stage 3 chronic kidney disease, unspecified whether stage 3a or 3b CKD (HCC) documented in this encounter [facility] note* Diagnosis Acidosis- Primary documented in this encounter [facility] for referral (narrative)* Outpatient Procedure (Routine) - Pending Review Specialty Diagnoses / Procedures Referred By Omi t Referred To Contact [facility] [place] Diagnoses Bilateral carotid artery stenosis Procedures US CAROTID ARTERIES [facility] DUPLEX SCAN EXTRACRANIAL ART COMPL BI STUDY Sharmin Ramesh DO [address] [place] [address] [facility] Vascular [address] [address] Referral ID Status Reason Start Date Expiration Date Visits Requested Visits Authorized [id number] Pending Review Auto-Generat ed Referral 05/07/2022 05/07/2023 1 1 [facility] for referral (narrative)* Diagnostic Procedure Only (Routine) - Pending Review Specialty Diagnoses / Procedures Referred By Omi flores Referred To Contact US IMAGING Diagnoses MARCOS (acute kidney injury) (HCC) Hydronephrosis, unspecified hydronephrosis type Procedures US KIDNEY/BLADDER US RETROPERITONEAL REAL TIME W/[place] [address] [place] [address] Us Imaging Referral ID Status Reason Start Date Expiration Date Visits Requested Visits Authorized [id number] Pending Review Auto-Generat ed Referral 07/10/2022 08/09/2023 1 1 [facility] Summary Purpose Family History No Family History Records FoundNo Family History Records FoundNo Family History Records FoundNo Family History Records Found Advance Directives No Advanced Directives Records FoundDocuments on File Type Date Recorded Patient Lemon Picker Expl anation Advance Directive(s) 10/21/2021 2:03 PM Advance Directive(s) 11/29/2018 12:10 PM Documents on File Type Date Recorded Patient Lemon Picker Expl anation Advance Directive(s) 10/21/2021 2:03 PM Advance Directive(s) 11/29/2018 12:10 PM Documents on File Type Date Recorded Patient Lemon Picker Expl anation Advance Directive(s) 10/21/2021 2:03 PM Documents on File Type Date Recorded Patient Lemon Picker Expl anation Advance Directive(s) 10/21/2021 2:03 PM Reason for Referral Specialty Diagnoses / Procedures Referred By Omi flores Referred To Contact Urology Diagnoses 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 Procedures CONSULT TO UROLOGY OFFICE/OUTPATIENT NEW HIGH MDM 60-74 MINUTES 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, 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 [address] [place] [address] Referral ID Status Reason Start Date Expiration Date Visits Requested Visits Authorized [id number] Authorized PCP Requested Referral 07/21/2022 07/21/2023 1 1 Additional Source Comments (unrecognized sect ion and content) No Status Records FoundNo Status Records FoundNo Status Records FoundNo Status Records Found INFORMATION SOURCE (unrecogn ized section and content) DATE CREATED AUTHOR AUTHOR'S ORGANIZ ATION 05/27/2022 [facility] DATE CREATED AUTHOR AUTHOR'S ORGANIZ ATION 12/09/2022 [facility] DATE CREATED AUTHOR AUTHOR'S ORGANIZ ATION 09/29/2023 [facility] Source Comments (unrecognize d section and content) In the event this informatio n is protected by the Federal Confidentiality of Alcohol and Drug Abuse Patient Records regulations: The Federal rules restrict any use of the information to criminally investigate or prosecute any alcohol or drug abuse patient.[facility] the event this information is protected by the Federal Confidentiality of Alcohol and Drug Abuse Patient Records regulations: The Federal rules restrict any use of the information to criminally investigate or prosecute any alcohol or drug abuse patient.[facility] the event this information is protected by the Federal Confidentiality of Alcohol and Drug Abuse Patient Records regulations: The Federal rules restrict any use of the information to criminally investigate or prosecute any alcohol or drug abuse patient.[facility] the event this information is protected by the Federal Confidentiality of Alcohol and Drug Abuse Patient Records regulations: The Federal rules restrict any use of the information to criminally investigate or prosecute any alcohol or drug abuse patient.[facility] the event this information is protected by the Federal Confidentiality of Alcohol and Drug Abuse Patient Records regulations: The Federal rules restrict any use of the information to criminally investigate or prosecute any alcohol or drug abuse patient.[facility] the event this information is protected by the Federal Confidentiality of Alcohol and Drug Abuse Patient Records regulations: The Federal rules restrict any use of the information to criminally investigate or prosecute any alcohol or drug abuse patient.[facility] the event this information is protected by the Federal Confidentiality of Alcohol and Drug Abuse Patient Records regulations: The Federal rules restrict any use of the information to criminally investigate or prosecute any alcohol or drug abuse patient.[facility] the event this information is protected by the Federal Confidentiality of Alcohol and Drug Abuse Patient Records regulations: The Federal rules restrict any use of the information to criminally investigate or prosecute any alcohol or drug abuse patient.[facility] the event this information is protected by the Federal Confidentiality of Alcohol and Drug Abuse Patient Records regulations: The Federal rules restrict any use of the information to criminally investigate or prosecute any alcohol or drug abuse patient.[facility] the event this information is protected by the Federal Confidentiality of Alcohol and Drug Abuse Patient Records regulations: The Federal rules restrict any use of the information to criminally investigate or prosecute any alcohol or drug abuse patient.[facility] the event this information is protected by the Federal Confidentiality of Alcohol and Drug Abuse Patient Records regulations: The Federal rules restrict any use of the information to criminally investigate or prosecute any alcohol or drug abuse patient.[facility] the event this information is protected by the Federal Confidentiality of Alcohol and Drug Abuse Patient Records regulations: The Federal rules restrict any use of the information to criminally investigate or prosecute any alcohol or drug abuse patient.[facility] the event this information is protected by the Federal Confidentiality of Alcohol and Drug Abuse Patient Records regulations: The Federal rules restrict any use of the information to criminally investigate or prosecute any alcohol or drug abuse patient.[facility] the event this information is protected by the Federal Confidentiality of Alcohol and Drug Abuse Patient Records regulations: The Federal rules restrict any use of the information to criminally investigate or prosecute any alcohol or drug abuse patient.[facility]In the event this information is protected by the Federal Confidentiality of Alcohol and Drug Abuse Patient Records regulations: The Federal rules restrict any use of the information to criminally investigate or prosecute any alcohol or drug abuse patient.[facility]In the event this information is protected by the Federal Confidentiality of Alcohol and Drug Abuse Patient Records regulations: The Federal rules restrict any use of the information to criminally investigate or prosecute any alcohol or drug abuse patient.[facility] the event this information is protected by the Federal Confidentiality of Alcohol and Drug Abuse Patient Records regulations: The Federal rules restrict any use of the information to criminally investigate or prosecute any alcohol or drug abuse patient.[facility]In the event this information is protected by the Federal Confidentiality of Alcohol and Drug Abuse Patient Records regulations: The Federal rules restrict any use of the information to criminally investigate or prosecute any alcohol or drug abuse patient.[facility] the event this information is protected by the Federal Confidentiality of Alcohol and Drug Abuse Patient Records regulations: The Federal rules restrict any use of the information to criminally investigate or prosecute any alcohol or drug abuse patient.[facility]In the event this information is protected by the Federal Confidentiality of Alcohol and Drug Abuse Patient Records regulations: The Federal rules restrict any use of the information to criminally investigate or prosecute any alcohol or drug abuse patient.[facility] HospitalIn the event this information is protected by the Federal Confidentiality of Alcohol and Drug Abuse Patient Records regulations: The Federal rules restrict any use of the information to criminally investigate or prosecute any alcohol or drug abuse patient.[facility] HospitalIn the event this information is protected by the Federal Confidentiality of Alcohol and Drug Abuse Patient Records regulations: The Federal rules restrict any use of the information to criminally investigate or prosecute any alcohol or drug abuse patient.[facility] HospitalIn the event this information is protected by the Federal Confidentiality of Alcohol and Drug Abuse Patient Records regulations: The Federal rules restrict any use of the information to criminally investigate or prosecute any alcohol or drug abuse patient.[facility] HospitalIn the event this information is protected by the Federal Confidentiality of Alcohol and Drug Abuse Patient Records regulations: The Federal rules restrict any use of the information to criminally investigate or prosecute any alcohol or drug abuse patient.[facility] HospitalIn the event this information is protected by the Federal Confidentiality of Alcohol and Drug Abuse Patient Records regulations: The Federal rules restrict any use of the information to criminally investigate or prosecute any alcohol or drug abuse patient.[facility] HospitalIn the event this information is protected by the Federal Confidentiality of Alcohol and Drug Abuse Patient Records regulations: The Federal rules restrict any use of the information to criminally investigate or prosecute any alcohol or drug abuse patient.[facility] HospitalIn the event this information is protected by the Federal Confidentiality of Alcohol and Drug Abuse Patient Records regulations: The Federal rules restrict any use of the information to criminally investigate or prosecute any alcohol or drug abuse patient.[facility] HospitalIn the event this information is protected by the Federal Confidentiality of Alcohol and Drug Abuse Patient Records regulations: The Federal rules restrict any use of the information to criminally investigate or prosecute any alcohol or drug abuse patient.[facility] HospitalIn the event this information is protected by the Federal Confidentiality of Alcohol and Drug Abuse Patient Records regulations: The Federal rules restrict any use of the information to criminally investigate or prosecute any alcohol or drug abuse patient.[facility] HospitalIn the event this information is protected by the Federal Confidentiality of Alcohol and Drug Abuse Patient Records regulations: The Federal rules restrict any use of the information to criminally investigate or prosecute any alcohol or drug abuse patient.[facility] HospitalIn the event this information is protected by the Federal Confidentiality of Alcohol and Drug Abuse Patient Records regulations: The Federal rules restrict any use of the information to criminally investigate or prosecute any alcohol or drug abuse patient.[facility] HospitalIn the event this information is protected by the Federal Confidentiality of Alcohol and Drug Abuse Patient Records regulations: The Federal rules restrict any use of the information to criminally investigate or prosecute any alcohol or drug abuse patient.[facility] HospitalIn the event this information is protected by the Federal Confidentiality of Alcohol and Drug Abuse Patient Records regulations: The Federal rules restrict any use of the information to criminally investigate or prosecute any alcohol or drug abuse patient.[facility] HospitalIn the event this information is protected by the Federal Confidentiality of Alcohol and Drug Abuse Patient Records regulations: The Federal rules restrict any use of the information to criminally investigate or prosecute any alcohol or drug abuse patient.[facility] HospitalIn the event this information is protected by the Federal Confidentiality of Alcohol and Drug Abuse Patient Records regulations: The Federal rules restrict any use of the information to criminally investigate or prosecute any alcohol or drug abuse patient.[facility] HospitalIn the event this information is protected by the Federal Confidentiality of Alcohol and Drug Abuse Patient Records regulations: The Federal rules restrict any use of the information to criminally investigate or prosecute any alcohol or drug abuse patient.[facility] HospitalIn the event this information is protected by the Federal Confidentiality of Alcohol and Drug Abuse Patient Records regulations: The Federal rules restrict any use of the information to criminally investigate or prosecute any alcohol or drug abuse patient.[facility] HospitalIn the event this information is protected by the Federal Confidentiality of Alcohol and Drug Abuse Patient Records regulations: The Federal rules restrict any use of the information to criminally investigate or prosecute any alcohol or drug abuse patient.[facility] HospitalIn the event this information is protected by the Federal Confidentiality of Alcohol and Drug Abuse Patient Records regulations: The Federal rules restrict any use of the information to criminally investigate or prosecute any alcohol or drug abuse patient.[facility] HospitalIn the event this information is protected by the Federal Confidentiality of Alcohol and Drug Abuse Patient Records regulations: The Federal rules restrict any use of the information to criminally investigate or prosecute any alcohol or drug abuse patient.[facility] HospitalIn the event this information is protected by the Federal Confidentiality of Alcohol and Drug Abuse Patient Records regulations: The Federal rules restrict any use of the information to criminally investigate or prosecute any alcohol or drug abuse patient.[facility] HospitalIn the event this information is protected by the Federal Confidentiality of Alcohol and Drug Abuse Patient Records regulations: The Federal rules restrict any use of the information to criminally investigate or prosecute any alcohol or drug abuse patient.[facility] HospitalIn the event this information is protected by the Federal Confidentiality of Alcohol and Drug Abuse Patient Records regulations: The Federal rules restrict any use of the information to criminally investigate or prosecute any alcohol or drug abuse patient.[facility] HospitalIn the event this information is protected by the Federal Confidentiality of Alcohol and Drug Abuse Patient Records regulations: The Federal rules restrict any use of the information to criminally investigate or prosecute any alcohol or drug abuse patient.[facility] HospitalIn the event this information is protected by the Federal Confidentiality of Alcohol and Drug Abuse Patient Records regulations: The Federal rules restrict any use of the information to criminally investigate or prosecute any alcohol or drug abuse patient.[facility] HospitalIn the event this information is protected by the Federal Confidentiality of Alcohol and Drug Abuse Patient Records regulations: The Federal rules restrict any use of the information to criminally investigate or prosecute any alcohol or drug abuse patient.[facility] HospitalIn the event this information is protected by the Federal Confidentiality of Alcohol and Drug Abuse Patient Records regulations: The Federal rules restrict any use of the information to criminally investigate or prosecute any alcohol or drug abuse patient.[facility] HospitalIn the event this information is protected by the Federal Confidentiality of Alcohol and Drug Abuse Patient Records regulations: The Federal rules restrict any use of the information to criminally investigate or prosecute any alcohol or drug abuse patient.[facility] HospitalIn the event this information is protected by the Federal Confidentiality of Alcohol and Drug Abuse Patient Records regulations: The Federal rules restrict any use of the information to criminally investigate or prosecute any alcohol or drug abuse patient.[facility] HospitalIn the event this information is protected by the Federal Confidentiality of Alcohol and Drug Abuse Patient Records regulations: The Federal rules restrict any use of the information to criminally investigate or prosecute any alcohol or drug abuse patient.[facility] HospitalIn the event this information is protected by the Federal Confidentiality of Alcohol and Drug Abuse Patient Records regulations: The Federal rules restrict any use of the information to criminally investigate or prosecute any alcohol or drug abuse patient.[facility] HospitalIn the event this information is protected by the Federal Confidentiality of Alcohol and Drug Abuse Patient Records regulations: The Federal rules restrict any use of the information to criminally investigate or prosecute any alcohol or drug abuse patient.[facility] HospitalIn the event this information is protected by the Federal Confidentiality of Alcohol and Drug Abuse Patient Records regulations: The Federal rules restrict any use of the information to criminally investigate or prosecute any alcohol or drug abuse patient.[facility] HospitalIn the event this information is protected by the Federal Confidentiality of Alcohol and Drug Abuse Patient Records regulations: The Federal rules restrict any use of the information to criminally investigate or prosecute any alcohol or drug abuse patient.[facility] HospitalIn the event this information is protected by the Federal Confidentiality of Alcohol and Drug Abuse Patient Records regulations: The Federal rules restrict any use of the information to criminally investigate or prosecute any alcohol or drug abuse patient.[facility] HospitalIn the event this information is protected by the Federal Confidentiality of Alcohol and Drug Abuse Patient Records regulations: The Federal rules restrict any use of the information to criminally investigate or prosecute any alcohol or drug abuse patient.[facility] HospitalIn the event this information is protected by the Federal Confidentiality of Alcohol and Drug Abuse Patient Records regulations: The Federal rules restrict any use of the information to criminally investigate or prosecute any alcohol or drug abuse patient.[facility] HospitalIn the event this information is protected by the Federal Confidentiality of Alcohol and Drug Abuse Patient Records regulations: The Federal rules restrict any use of the information to criminally investigate or prosecute any alcohol or drug abuse patient.[facility] HospitalIn the event this information is protected by the Federal Confidentiality of Alcohol and Drug Abuse Patient Records regulations: The Federal rules restrict any use of the information to criminally investigate or prosecute any alcohol or drug abuse patient.[facility] HospitalIn the event this information is protected by the Federal Confidentiality of Alcohol and Drug Abuse Patient Records regulations: The Federal rules restrict any use of the information to criminally investigate or prosecute any alcohol or drug abuse patient.[facility] HospitalIn the event this information is protected by the Federal Confidentiality of Alcohol and Drug Abuse Patient Records regulations: The Federal rules restrict any use of the information to criminally investigate or prosecute any alcohol or drug abuse patient.[facility] HospitalIn the event this information is protected by the Federal Confidentiality of Alcohol and Drug Abuse Patient Records regulations: The Federal rules restrict any use of the information to criminally investigate or prosecute any alcohol or drug abuse patient.[facility] HospitalIn the event this information is protected by the Federal Confidentiality of Alcohol and Drug Abuse Patient Records regulations: The Federal rules restrict any use of the information to criminally investigate or prosecute any alcohol or drug abuse patient.[facility] HospitalIn the event this information is protected by the Federal Confidentiality of Alcohol and Drug Abuse Patient Records regulations: The Federal rules restrict any use of the information to criminally investigate or prosecute any alcohol or drug abuse patient.[facility] Reason for Visit (unrecogniz ed section [...] MDM 60-74 MINUTES 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 APRN.[facility] [address] [place] [address] Referral ID Status Reason Start Date Expiration Date V isits Requested Visits Authorized [id number] Closed PCP Requested Referral 07/21/2022 07/21/2023 1 [...] Question Refill Reason 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 Comments Community [...] anot her kidney doctor closer to home ([place], [place]) Reason Onset Date Comments Community Monitoring Outreach 08/06/2023 Care Teams (unrecognized sec tion and content) Termite Control Representative Relationship Specialty Start Date End Date Arnold Spencer MD [address] [place] [address] PCP - General Internal Medicine 09/16/21 Jarvis Mcgee, stem cutterCalibration Laboratory Technician Internal Medicine 10/22/21 Termite Control Representative Relationship Specialty Start Date End Date Arnold Spencer MD [address] [facility] [place] [address] PCP - General Internal Medicine 09/16/21 Jarvis Mcgee, stem cutterCalibration Laboratory Technician Internal Medicine 10/22/21 Termite Control Representative Relationship Specialty Start Date End Date Arnold Spencer MD [address] [facility] [place] [address] PCP - General Internal Medicine 09/16/21 Jarvis Mcgee, stem cutterCalibration Laboratory Technician Internal Medicine 10/22/21 Termite Control Representative Relationship Specialty Start Date End Date Arnold Spencer MD [address] [facility] [place] [address] PCP - General Internal Medicine 09/16/21 Jarvis Mcgee, stem cutterCalibration Laboratory Technician Internal Medicine 10/22/21 Termite Control Representative Relationship Specialty Start Date End Date Arnold Spencer MD [address] [facility] [place] [address] PCP - General Internal Medicine 09/16/21 Jarvis Mcgee, stem cutterCalibration Laboratory Technician Internal Medicine 10/22/21 Termite Control Representative Relationship Specialty Start Date End Date Arnold Spencer MD [address] [facility] [place] [address] PCP - General Internal Medicine 09/16/21 Jarvis Mcgee, stem cutterCalibration Laboratory Technician Internal Medicine 10/22/21 Termite Control Representative Relationship Specialty Start Date End Date Arnold Spencer MD [address] [facility] [place] [place] [address] PCP - General Internal Medicine 09/16/21 Jarvis Mcgee, stem cutterCalibration Laboratory Technician Internal Medicine 10/22/21 Termite Control Representative Relationship Specialty Start Date End Date Arnold Spencer MD [address] [facility] [place] [place] [address] PCP - General Internal Medicine 09/16/21 Jarvis Mcgee, stem cutterCalibration Laboratory Technician Internal Medicine 10/22/21 Termite Control Representative Relationship Specialty Start Date End Date Arnold Spencer MD [address] [facility] [place] [place] [address] PCP - General Internal Medicine 09/16/21 Jarvis Mcgee, stem cutterCalibration Laboratory Technician Internal Medicine 10/22/21 Termite Control Representative Relationship Specialty Start Date End Date Arnold Spencer MD [address] [facility] [place] [address] PCP - General Internal Medicine 09/16/21 Jarvis Mcgee, stem cutterCalibration Laboratory Technician Internal Medicine 10/22/21 Termite Control Representative Relationship Specialty Start Date End Date Arnold Spencer MD [address] [facility] [place] [place] [address] PCP - General Internal Medicine 09/16/21 Jarvis Mcgee, stem cutterCalibration Laboratory Technician Internal Medicine 10/22/21 Termite Control Representative Relationship Specialty Start Date End Date Arnold Spencer MD [address] [facility] [place] [place] [address] PCP - General Internal Medicine 09/16/21 Jarvis Mcgee, stem cutterCalibration Laboratory Technician Internal Medicine 10/22/21 Termite Control Representative Relationship Specialty Start Date End Date Arnold Spencer MD [address] [facility] [place] [place] [address] PCP - General Internal Medicine 09/16/21 Jarvis Mcgee, stem cutterCalibration Laboratory Technician Internal Medicine 10/22/21 Termite Control Representative Relationship Specialty Start Date End Date Arnold Spencer MD [address] [facility] [place] [place] [address] PCP - General Internal Medicine 09/16/21 Jarvis Mcgee, stem cutterCalibration Laboratory Technician Internal Medicine 10/22/21 Termite Control Representative Relationship Specialty Start Date End Date Arnold Spencer MD [address] [facility] [place] [place] [address] PCP - General Internal Medicine 09/16/21 Jarvis Mcgee, stem cutterCalibration Laboratory Technician Internal Medicine 10/22/21 Termite Control Representative Relationship Specialty Start Date End Date Arnold Spencer MD [address] [facility] [place] [place] [address] PCP - General Internal Medicine 09/16/21 Jarvis Mcgee, stem cutterCalibration Laboratory Technician Internal Medicine 10/22/21 Termite Control Representative Relationship Specialty Start Date End Date Arnold Spencer MD [address] [facility] [place] [place] [address] PCP - General Internal Medicine 09/16/21 Jarvis Mcgee, stem cutterCalibration Laboratory Technician Internal Medicine 10/22/21 Termite Control Representative Relationship Specialty Start Date End Date Arnold Spencer MD [address] [facility] [place] [place] [address] PCP - General Internal Medicine 09/16/21 Jacquelyn Conley, stem cutterCalibration Laboratory Technician Internal Medicine 10/22/21 Termite Control Representative Relationship Specialty Start Date End Date Arnold Spencer MD [address] [facility] [place] [place] [address] PCP - General Internal Medicine 09/16/21 Jacquelyn Conley, stem cutterCalibration Laboratory Technician Internal Medicine 10/22/21 Termite Control Representative Relationship Specialty Start Date End Date Arnold Spencer MD [address] [facility] [place] [place] [address] PCP - General Internal Medicine 09/16/21 Jacquelyn Conley, stem cutterCalibration Laboratory Technician Internal Medicine 10/22/21 Termite Control Representative Relationship Specialty Start Date End Date Arnold Spencer MD [address] [facility] [place] [place] [address] PCP - General Internal Medicine 09/16/21 Jacquelyn Conley, stem cutterCalibration Laboratory Technician Internal Medicine 10/22/21 Termite Control Representative Relationship Specialty Start Date End Date Arnold Spencer MD [address] [facility] [place] [place] [address] PCP - General Internal Medicine 09/16/21 Jacquelyn Conley, stem cutterCalibration Laboratory Technician Internal Medicine 10/22/21 Termite Control Representative Relationship Specialty Start Date End Date Arnold Spencer MD [address] [facility] [place] [place] [address] PCP - General Internal Medicine 09/16/21 Jacquelyn Conley, stem cutterCalibration Laboratory Technician Internal Medicine 10/22/21 Termite Control Representative Relationship Specialty Start Date End Date Arnold Spencer MD [address] [facility] [place] [place] [address] PCP - General Internal Medicine 09/16/21 Jacquelyn Conley, stem cutterCalibration Laboratory Technician Internal Medicine 10/22/21 Termite Control Representative Relationship Specialty Start Date End Date Arnold Spencer MD [address] [facility] [place] [place] [address] PCP - General Internal Medicine 09/16/21 Jacquelyn Conley, stem cutterCalibration Laboratory Technician Internal Medicine 10/22/21 Termite Control Representative Relationship Specialty Start Date End Date Arnold Spencer MD [address] [facility] [place] [place] [address] PCP - General Internal Medicine 09/16/21 Jacquelyn Conley, stem cutterCalibration Laboratory Technician Internal Medicine 10/22/21 Termite Control Representative Relationship Specialty Start Date End Date Arnold Spencer MD [address] [facility] [place] [address] PCP - General Internal Medicine 09/16/21 Jacquelyn Conley RN Calibration Laboratory Technician Internal Medicine 10/22/21 Termite Control Representative Relationship Specialty Start Date End Date Arnold Spencer MD [address] [facility] [place] [address] PCP - General Internal Medicine 09/16/21 Jacquelyn Conley RN Calibration Laboratory Technician Internal Medicine 10/22/21 Termite Control Representative Relationship Specialty Start Date End Date Jacquelyn Conley RN Calibration Laboratory Technician Internal Medicine 10/22/21 Termite Control Representative Relationship Specialty Start Date End Date Jacquelyn Conley RN Calibration Laboratory Technician Internal Medicine 10/22/21 FOR RECORDS PERTAINING TO [...] BE BASED ON THE PRIMARY CLINICAL RECORDS. [facility]. provides no warranty or guarantee of the accuracy or completeness of information in this document.
[2023-11-27 13:57] LABS: Anion Gap 7 (5-15); BUN 37 mg/dL (7-18); BUN/Creat Ratio 17.2 RATIO (10-20); Calcium,Total 9.1 mg/dL (8.5-10.1); Chloride 116 mmol/L (98-107); Creatinine, Serum 2.15 mg/dL (0.70-1.30); EST Glomerular Filtration Rate 31 mL/min (>60); Est Glom Filt Rate - Afr Amer 38 mL/min (>60); Estimated Creatinine Clearance 24.32 ml/min; Glucose 116 mg/dL (74-106); Potassium 3.2 mmol/L (3.5-5.1); Sodium Level 143 mmol/L (136-145); Troponin-I HS (w/2H Reflex) 47 pg/mL (3.0-78.0)
[2023-11-27] MEDS: Furosemide 100 MG/10 ML Vial 60 MG IV (14:47)
[2023-11-27] MEDS: Potassium Chloride Oral Tablet 20 MEQ 40 MEQ PO (15:10)
[2023-11-27 15:36] LABS: Reflex Troponin-HS? (from REC) Y
--- OUTSIDE RECORDS SUMMARY | 2023-11-27 15:45 | XMS RPT_ITS | CCD ---
Author Name Unknown Address [address] [place] [address] Organization [facility] Care Team Providers Care Sign Erector Name Role Phone Arnold Spencer MD Primary [...] BESYLATE] Drug Allergy 9 Other: See Comments [facility] (13 sources) HMG-CoA reductase inhibitor; Translations: [IOCREHI-INR-TF A REDUCTASE INHIBITORS] Drug Intolerance 4 Other: See Comments [facility] (20 sources) Indomethacin; Translations: [INDOMETHACIN SODIUM] Drug Allergy 2 GI Upset [facility] (20 sources) Lisinopril; Translations: [LISINOPRIL] Drug Allergy 1 Cough [facility] Work Phone: (20 sources) HMG-CoA reductase inhibitor Drug Intolerance 4 Other: See Comments [facility] Medications Current Medications Medication Drug Class(es) [...] Drug Class(es) Dates Sig (Normalized) Sig (Original) [id number] 200 actuat albuterol 0.09 mg/actuat metered dose [...] Coronary atherosclerosis; Translations: [Atherosclerotic heart disease of [place] coronary artery without angina pectoris] Onset: 5 [...] 97.59 [degF] Arnold Spencer MD Work Phone: [facility] 02-02-2023 15:57-0400 Body weight 65.77 kg Arnold Spencer MD Work Phone: [facility] 02-02-2023 15:57-0400 Diastolic blood pressure 68 mm[Hg] Arnold Spencer MD Work Phone: [facility] 02-02-2023 15:57-0400 Heart rate 93 /min Arnold Spencer MD Work Phone: [facility] 02-02-2023 15:57-0400 Respiratory rate 18 /min Arnold pSencer MD Work Phone: [facility] 02-02-2023 15:57-0400 SaO2% (BldA) [Mass fraction] 98 % Arnold Spencer MD Work Phone: [facility] 02-02-2023 15:57-0400 Systolic blood pressure 122 mm[Hg] Arnold Spencer MD Work Phone: [facility] 11-03-2022 14:40-0500 Body height 177.8 cm Cat Chavira MD Work Phone: [facility] 11-03-2022 14:40-0500 Body weight 68.95 kg Cat Chavira MD Work Phone: [facility] 11-03-2022 14:40-0500 Diastolic blood pressure 67 mm[Hg] Cat Chavira MD Work Phone: [facility] 11-03-2022 14:40-0500 Heart rate 63 /min Cat Chavira MD Work Phone: [facility] 11-03-2022 14:40-0500 Systolic blood pressure 121 mm[Hg] Cat Chavira MD Work Phone: [facility] 07-31-2022 14:41-0400 Body height 177.8 cm Cat Chavira MD Work Phone: [facility] 07-31-2022 14:41-0400 Body weight 64.86 kg Cat Chavira MD Work Phone: [facility] 07-31-2022 14:41-0400 Diastolic blood pressure 72 mm[Hg] Cat Chavira MD Work Phone: [facility] 07-31-2022 14:41-0400 Heart rate 94 /min Cat Chavira MD Work Phone: [facility] 07-31-2022 14:41-0400 Systolic blood pressure 127 mm[Hg] Cat Chavira MD Work Phone: [facility] 07-28-2022 13:31-0400 Body height 177.8 cm Partha Santana PA-C Work Phone: [facility] 07-28-2022 13:31-0400 Body temperature 97 [degF] Partha Santana PA-C Work Phone: [facility] 07-28-2022 13:31-0400 Body weight 65.32 kg Partha Santana PA-C Work Phone: [facility] 07-28-2022 13:31-0400 Diastolic blood pressure 70 mm[Hg] Partha Santana PA-C Work Phone: [facility] 07-28-2022 13:31-0400 Heart rate 108 /min Partha Santana PA-C Work Phone: [facility] 07-28-2022 13:31-0400 Respiratory rate 14 /min Partha Santana PA-C Work Phone: [facility] 07-28-2022 13:31-0400 SaO2% (BldA) [Mass fraction] 96 % Partha Santana PA-C Work Phone: [facility] 07-28-2022 13:31-0400 Systolic blood pressure 110 mm[Hg] Partha Santana PA-C Work Phone: [facility] 07-21-2022 14:42-0400 Body weight 65.32 kg 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 MINERAL ECONOMIST.COUNSELING SPECIALIST Work Phone: [facility] 07-21-2022 14:42-0400 Diastolic blood pressure 68 mm[Hg] 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 MINERAL ECONOMIST.COUNSELING SPECIALIST Work Phone: [facility] 07-21-2022 14:42-0400 Heart rate 60 /min 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 MINERAL ECONOMIST.COUNSELING SPECIALIST Work Phone: [facility] 07-21-2022 14:42-0400 Respiratory rate 16 /min 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 MINERAL ECONOMIST.COUNSELING SPECIALIST Work Phone: [facility] 07-21-2022 14:42-0400 SaO2% (BldA) [Mass fraction] 99 % 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 MINERAL ECONOMIST.COUNSELING SPECIALIST Work Phone: [facility] 07-21-2022 14:42-0400 Systolic blood pressure 120 mm[Hg] 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 MINERAL ECONOMIST.COUNSELING SPECIALIST Work Phone: [facility] 07-10-2022 15:50-0400 Body height 172.7 cm Cat Chavira MD Work Phone: [facility] 07-10-2022 15:50-0400 Body weight 70.31 kg Cat Chavira MD Work Phone: [facility] 07-10-2022 15:50-0400 Diastolic blood pressure 81 mm[Hg] Cat Chavira MD Work Phone: [facility] 07-10-2022 15:50-0400 Heart rate 63 /min Cat Chavira MD Work Phone: [facility] 07-10-2022 15:50-0400 Systolic blood pressure 145 mm[Hg] Cat Chavira MD Work Phone: [facility] 06-23-2022 14:33-0400 Body weight 68.49 kg 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 MINERAL ECONOMIST.COUNSELING SPECIALIST Work Phone: [facility] 06-23-2022 14:33-0400 Diastolic blood pressure 60 mm[Hg] 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 MINERAL ECONOMIST.COUNSELING SPECIALIST Work Phone: [facility] 06-23-2022 14:33-0400 Heart rate 80 /min 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 MINERAL ECONOMIST.COUNSELING SPECIALIST Work Phone: [facility] 06-23-2022 14:33-0400 Respiratory rate 16 /min 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 MINERAL ECONOMIST.COUNSELING SPECIALIST Work Phone: [facility] 06-23-2022 14:33-0400 Systolic blood pressure 110 mm[Hg] 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 MINERAL ECONOMIST.COUNSELING SPECIALIST Work Phone: [facility] 06-05-2022 14:02-0400 Body weight 72.12 kg Arnold Spencer MD Work Phone: [facility] 06-05-2022 14:02-0400 Diastolic blood pressure 80 mm[Hg] Arnold Spencer MD Work Phone: [facility] 06-05-2022 14:02-0400 Heart rate 74 /min Arnold Spencer MD Work Phone: [facility] 06-05-2022 14:02-0400 SaO2% (BldA) [Mass fraction] 98 % Arnold Spencer MD Work Phone: [facility] 06-05-2022 14:02-0400 Systolic blood pressure 140 mm[Hg] Arnold Spencer MD Work Phone: [facility] 05-26-2022 10:07-0400 Body temperature 97.9 [degF] 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 MINERAL ECONOMIST.COUNSELING SPECIALIST Work Phone: [facility] 05-26-2022 10:07-0400 Body weight 70.76 kg 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 MINERAL ECONOMIST.COUNSELING SPECIALIST Work Phone: [facility] 05-26-2022 10:07-0400 Diastolic blood pressure 74 mm[Hg] 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 MINERAL ECONOMIST.COUNSELING SPECIALIST Work Phone: [facility] 05-26-2022 10:07-0400 Heart rate 70 /min 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 MINERAL ECONOMIST.COUNSELING SPECIALIST Work Phone: [facility] 05-26-2022 10:07-0400 Respiratory rate 16 /min 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 MINERAL ECONOMIST.COUNSELING SPECIALIST Work Phone: [facility] 05-26-2022 10:07-0400 SaO2% (BldA) [Mass fraction] 97 % 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 MINERAL ECONOMIST.COUNSELING SPECIALIST Work Phone: [facility] 05-26-2022 10:07-0400 Systolic blood pressure 134 mm[Hg] 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 MINERAL ECONOMIST.COUNSELING SPECIALIST Work Phone: [facility] 03-10-2022 12:58-0400 Body weight 68.95 kg 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 MINERAL ECONOMIST.COUNSELING SPECIALIST Work Phone: [facility] 03-10-2022 12:58-0400 Diastolic blood pressure 82 mm[Hg] 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 MINERAL ECONOMIST.COUNSELING SPECIALIST Work Phone: [facility] 03-10-2022 12:58-0400 Heart rate 84 /min 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 MINERAL ECONOMIST.COUNSELING SPECIALIST Work Phone: [facility] 03-10-2022 12:58-0400 Respiratory rate 16 /min 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 MINERAL ECONOMIST.COUNSELING SPECIALIST Work Phone: [facility] 03-10-2022 12:58-0400 Systolic blood pressure 130 mm[Hg] 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 MINERAL ECONOMIST.COUNSELING SPECIALIST Work Phone: [facility] Encounters Encounter Date Encounter Type Care [...] Assay of magnesium Luis Daniel De Guzmans MINERAL ECONOMIST.COUNSELING SPECIALIST Work Phone: Start: 03-13-2022 PACEMAKER REMOTE CHECK Elena Bunch MD Work Phone: Start: 2015 History of coronary artery bypass grafting S/P CABG (coronary artery bypass graft) Jarvis Mcgee RN History of coronary artery bypass grafting S/P CABG (coronary artery bypass graft) Della De Guzmans MINERAL ECONOMIST.COUNSELING SPECIALIST Work Phone: History of coronary artery bypass grafting S/P CABG (coronary artery bypass graft) Della De Guzmans MINERAL ECONOMIST.COUNSELING SPECIALIST Work Phone: Plan of Treatment Date Care Activity Detail Author Start: 02-02-2026 DIABETES SCREEN DIABETES SCREEN [facility] Start: 02-02-2026 Diabetes Screening Diabetes Screenin g [facility] Start: 12-10-2025 DIABETES SCREEN DIABETES SCREEN [facility] Start: 08-27-2025 DIABETES SCREEN DIABETES SCREEN [facility] Start: 08-18-2025 DIABETES SCREEN DIABETES SCREEN [facility] Start: 07-28-2025 DIABETES SCREEN DIABETES SCREEN [facility] Start: 07-20-2025 DIABETES SCREEN DIABETES SCREEN [facility] Start: 07-06-2025 DIABETES SCREEN DIABETES SCREEN [facility] Start: 05-25-2025 DIABETES SCREEN DIABETES SCREEN [facility] Start: 01-09-2025 DIABETES SCREEN DIABETES SCREEN [facility] Start: 02-03-2024 Hepatitis B surface antibody level LDL CHOLESTEROL [facility] Start: 02-03-2024 SHINGRIX VACCINE (1 of 2) SHINGRIX VACCINE (1 of 2) [facility] Immunizations Immunization Date Immunization Notes Care Provider Nino ewing 08-15-2022 influenza, high-dose , quadrivalent vaccine (FLUZONE HIGH DOSE QUADRIVALENT) Immunization [place] Work Phone: [facility] 08-15-2022 influenza virus vaccine, unspecified formulation Jacquelyn Conley RN [facility] 07-28-2021 influenza, high-dose , quadrivalent vaccine (FLUZONE HIGH DOSE QUADRIVALENT) Jarvis Mcgee RN [facility] 03-04-2021 COVID-19 vaccine, ag e 12+ yr (PFIZER-BIONTECH - PURPLE TOP) Jarvis Mcgee RN [facility] 02-08-2021 COVID-19 vaccine, ag e 12+ yr (PFIZER-BIONTECH - PURPLE TOP) Jarvis Mcgee RN [facility] 08-08-2020 influenza, seasonal, injectable Jarvis Mcgee RN [facility] 07-24-2020 influenza, high-dose , quadrivalent vaccine (FLUZONE HIGH DOSE QUADRIVALENT) Cat Chavira MD Work Phone: [facility] 10-10-2019 influenza, high dose seasonal, preservative-free Jarvis Mcgee RN [facility] Work Phone: 07-01-2018 influenza, high dose seasonal, preservative-free Jarvis Mcgee RN [facility] 08-19-2017 influenza, high dose seasonal, preservative-free Jarvis Mcgee RN [facility] 08-19-2017 tetanus and diphther ia toxoids, adsorbed, preservative free, for adult use (5 Lf of tetanus toxoid and 2 Lf of diphtheria toxoid) Jarvis Mcgee RN [facility] 08-11-2016 influenza, high dose seasonal, preservative-free Jarvis Mcgee RN [facility] Work Phone: 07-29-2015 influenza, high dose seasonal, preservative-free Jarvis Mcgee RN [facility] 07-29-2015 pneumococcal conjuga te vaccine, 13 valent Jarvis Mcgee RN [facility] 08-22-2014 influenza, seasonal, injectable Jarvis Mcgee RN [facility] Work Phone: 09-06-2013 influenza virus vaccine, unspecified formulation Jarvis Mcgee RN [facility] Work Phone: 09-19-2012 influenza virus vaccine, unspecified formulation Jarvis Mcgee RN [facility] 10-23-2011 influenza virus vaccine, unspecified formulation Jarvis Mcgee RN [facility] 03-27-2008 pneumococcal polysaccharide vaccine, 23 valent Jarvis Mcgee RN [facility] NEGATED: Highlighted row has not occurred!07-21-2022 influenza, high-dose, quadrivalent vaccine (FLUZONE HIGH DOSE QUADRIVALENT) 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 APRN.[employer] Work Phone: [facility] Work Phone: Payers Date Payer Category Payer Medicare [id number] 2021 Unknown [employer]IC[employer] SUPPLEMENT [id number] 2021-Present [phone] [address] [place] [address] Indemnity [id number] 2019 Unknown [id number] 2001 Medicare MEDICARE MEDICAR E A AND B [id number] 2001-Present [phone] [place] [address] Medicare [id number] 2001 Medicare MEDICARE MEDICAR E A AND B [id number] 2001-Present [phone] [place] [address] Medicare [id number] 2001 Medicare [id number] Social History Date Type Detail Facility Start: 02-22-2012 End: 06-23-2022 Tobacco smoking status NHIS Never smoked tobacco [facility] Start: 01-13-2022 End: 02-02-2023 Alcohol intake Current non-drinker of alcohol (finding) [facility] Start: 03-29-2020 End: 04-23-2020 History SDOH Alcohol Frequency 1 [facility] Start: 03-29-2020 History SDOH Alcohol Std Drinks 98 [facility] Start: 03-29-2020 End: 04-23-2020 History SDOH Social Connections Phone 5 [facility] Start: 03-29-2020 History SDOH Social Connections Get Together 4 [facility] Start: 03-29-2020 History SDOH Social Connections Islam 3 [facility] Start: 03-08-2020 End: 03-29-2020 History SDOH Physical Activity DPW 2 [facility] Start: 03-08-2020 Education 15 [facility] Start: 1935 Sex Assigned At Not on file [facility] Start: 01-03-2022 End: 07-31-2022 Exposure to SARS-CoV-2 (event) Not sure [facility] Work Phone: Start: 02-22-2012 End: 06-23-2022 Tobacco use and exposure Smokeless tobacco non-user [facility] Tobacco smoking stat us NHIS Tobacco smoking consumption unknown [facility] Start: 02-02-2023 End: 04-26-2023 History of Social function [facility] Work Phone: Start: 02-02-2023 End: 04-26-2023 Tobacco use panel [facility] Work Phone: Adult Depression Screening Assessment 0 [facility] Work Phone: Do you belong to any clubs or organizations such as methodist groups, unions, fraternal or athletic groups, or school groups? Yes [facility] Are you now , , , , never or living with a partner? [facility] How often to you hav e a drink containing alcohol? Never [facility] Do you feel stress - tense, restless, nervous, or anxious, or unable to sleep at night because your mind is troubled all the time - these days [OSQ] Not at all [facility] (I/We) worried wheth er (my/our) food would run out before (I/we) got money to buy more. Never true [facility] Work Phone: In the past 12 month s, was there a time when you were not able to pay the mortgage or rent on time? No [facility] Medical Equipment Procedure Code Equipment Code Equipment Original Text Equipment Identifier Dates Plate Low Profil e Titanium 12mm Bone 2 Hole Bar 1.5mm Screw Nonsterile - [id number] Start: 11-29-2018 Plate Low Profil e Titanium 12mm Bone 2 Hole Bar 1.5mm Screw Nonsterile - [id number] Start: 11-29-2018 Screw 1.5mm 4mm Bone Self Drill Cross Pin Craniomaxillofacial - [id number] Start: 11-29-2018 Screw 1.5mm 4mm Bone Self Drill [place] Craniomaxillofacial - [id number] Start: 11-29-2018 Goals Date Patient Goal Desired Activity /State Personal health goal Clinical Notes 06-03-2017 to 09-17-2023 Jacquelyn Conley RN - 08/09/2023 4:50 PM EDTSJacquelyn werner RN - 08/06/2023 5:59 PM EDTTelephone Russ - Liliana De La Rosa Ma - 08/09/2023 2:58 PM EDTBeverley Kaba LPN - 08/28/2022 1:39 PM EDT Note Date & Type Note Facility 09-17-2023 Note HNO ID: [id number] Author: Jacquelyn Conley RN Service: ? Author Type: Registered Nurse Type: Progress Notes Filed: 09/27/2023 2:20 PM Note Text: CDM Telephonic Outreach Provider Action/FYI CDM: CHF, CKD Spk with spouse Deirdre she noted Joseph has vocal cord issue and nasal passage issues, has 09/22/[address] Alicea ENT. Pt recently established with Dr. Grace [facility].Denies needs. Instructed to call new PCP for any symptom changes, concerns or needs, Pt and are aware of discontinuation of [facility] services, and noted appreciation for previous and [...] pounds in a week? No Based on bonsai culturist, the following disposition is advised: No symptoms or symptoms present, not severe. Routed to: No Action Needed SEVEN Education Provided this Outreach: No Jacquelyn Conley RN September 17, 2023 3:44 PM [facility] 09-17-2023 Note Patient Outreach ([facility] DARCY COVARRUBIAS ([id number]) 1935 M T Date Time Provider Department 09/17/23 JACQUELYN CONLEY [facility] During your visit today, we recorded the following information about you: Jacquelyn Conley RN 09/27/2023 2:20 PM Signed CDM Telephonic Outreach Provider Action/FYI CDM: CHF, CKD Spk with spouse Deirdre she noted Joseph has vocal cord issue and nasal passage issues, has 09/22/[address] Alicea ENT. Pt recently established with Dr. Lesly Calderon [facility].Denies needs. Instructed to call new PCP for any symptom changes, concerns or needs, Pt and are aware of discontinuation of [facility] services, and noted appreciation for previous and [...] pounds in a week? No Based on bonsai culturist, the following disposition is advised: No symptoms or symptoms present, not severe. Routed to: No Action Needed SEVEN Education Provided this Outreach: No Jacquelyn Conley RN September 17, 2023 3:44 PM Allergies As of Date: 09/17/2023 Noted Allergy Reaction INDOCIN (INDOMETHACIN SODIUM) 03/22/2012 8 - GI Upset NORVASC (AMLODIPINE BESYLATE) 12/16/2018 14 - Other: See Comments Comments: Dizziness [id number]-PZU-NIO REDUCTASE INHIBIT*07/10/2014 14 - Other: See Comments [...] as needed for cough. - Lacto 21-Bifido 9-E-T9-B6-B12 (UP4 PROBIOTICS MEN'S) 50 billion cell -90 mg-30 mcg cap Take 1 tablet by mouth every other day. - atorvastatin (LIPITOR) 40 mg tablet Take 1 tablet by mouth once daily. - Coenzyme M10-Rvmsomo E 100-100 mg cap Take by mouth. [...] 1 tablet by mouth once daily. - Bhgsb-5-JOC-EPA-Fish Oil 1,000 mg (120 mg-180 mg) cap [...] PVC's (premature ventric (more content not included)... [facility] 08-09-2023 Note HNO ID: [id number] Author: Jacquelyn Conley RN Service: ? Author [...] Conley RN August 09, 2023 4:50 PM [facility] 08-09-2023 History of Present illness Narrative [...] 2023 5:59 PM documented in this encounter [facility] 08-09-2023 Miscellaneous Notes Patient called the office to cancel his Aug [address] Chavira because he would prefer a kidney doctor closer to where he lives in [place], [place] documented in this encounter [facility] 08-06-2023 Note HNO ID: [id number] Author: Jacquelyn Conley RN Service: ? Author [...] Conley RN August 06, 2023 5:59 PM [facility] 08-06-2023 Note Patient Outreach (AM [facility]) DARCY COVARRUBIAS ([id number]) 1935 M T Date Time Provider Department 08/06/23 JACQUELYN CONLEY [facility] During your visit today, we recorded the [...] 14 - Other: See Comments Comments: Dizziness WWHFGUI-OVA-MRX REDUCTASE INHIBIT*07/10/2014 14 - Other: See Comments [...] capsules by mouth once daily. - Coenzyme R83-Mruwiwg E 100-100 mg cap Take by mouth. - cyanocobalamin (VITAMIN B-12) 1,000 mcg tab Take 1 tablet by mouth once daily. - Lacto 21-Bifido 0-F-Y9-B6-B12 (UP4 PROBIOTICS MEN'S) 50 billion cell -90 [...] minutes as needed for chest pain. - Xxgfs-5-IMC-EPA-Fish Oil 1,000 mg (120 mg-180 mg) cap [...] left shoulder [M7*06/12/2014 Coronary artery disease involving [place]*07/29/2015 S/P CABG (coronary artery bypass graft) [Z95.1] 2015 Hypokalemia [E87.6] 02/05/2016 01/29/2023 Osteoarthritis of spine with radiculopathy, lum*02/21/2016 History of permanent cardiac pacemaker placemen*09/03/2016 Paroxysmal atrial fibrillation (HCC) [I48.0] 09/03/2016 Chronic anticoagulation [Z79.01] 09/03/2016 12/16/2018 Carotid stenosis, asymptomatic [I65.29] 02/11/2017 Hyperglycemia [R73.9] (more content not included)... [facility] 07-15-2023 Note Patient Outreach ([facility] DARCY COVARRUBIAS ([id number]) 1935 M CHT Date Time Provider Department [...] 14 - Other: See Comments Comments: Dizziness KKQRQBH-EIO-FKI REDUCTASE INHIBIT*07/10/2014 14 - Other: See Comments [...] as needed for cough. - Lacto 21-Bifido 0-Z-F7-B6-B12 (UP4 PROBIOTICS MEN'S) 50 billion cell -90 mg-30 mcg cap Take 1 tablet by mouth every other day. - atorvastatin (LIPITOR) 40 mg tablet Take 1 tablet by mouth once daily. - Coenzyme S37-Edptqcn E 100-100 mg cap Take by mouth. [...] 1 tablet by mouth once daily. - Hdxzl-4-RVW-EPA-Fish Oil 1,000 mg (120 mg-180 mg) cap [...] left shoulder [M7*06/12/2014 Coronary artery disease involving [place]*07/29/2015 S/P CABG (coronary artery bypass graft) [...] mandie*03/19/2020 Heart failu (more content not included)... [facility] 07-15-2023 Note HNO ID: [id number] Author: Jacquelyn Conley RN Service: ? Author Type: Registered Nurse Type: Progress Notes Filed: 07/16/2023 5:24 PM Note Text: CDM Telephonic Outreach Provider Action/FYI CDM: CHF, CKD Left a message instructed to call PCP with any changes in condition or needs. Contacted for: Routine Telephonic Outreach Contact made with patient: No, left message. Jacquelyn Conley RN July 15, 2023 11:10 AM [facility] 07-15-2023 History of Present illness Narrative CDM Telephonic Outreach Provider Action/FYI CDM: CHF, CKD Left a message instructed to call PCP with any changes in condition or needs. Contacted for: Routine Telephonic Outreach Contact made with patient: No, left message. Jacquelyn Conley RN July 15, 2023 11:10 AM documented in this encounter [facility] 06-21-2023 Note HNO ID: [id number] Author: Jacquelyn Conley RN Service: ? Author Type: Registered Nurse Type: Progress Notes Filed: 06/21/2023 3:40 PM Note Text: CDM Telephonic Outreach Provider Action/FYI CDM: CHF, CKD Left a message instructed to call PCP with any changes in condition or needs. Contacted for: Routine Telephonic Outreach Contact made with patient: No, left message. Jacquelyn Conley RN June 21, 2023 3:38 PM [facility] 06-21-2023 History of Present illness Narrative [...] 2023 3:13 PM documented in this encounter [facility] 06-18-2023 Note HNO ID: [id number] Author: Jacquelyn Conley RN Service: ? Author Type: Registered Nurse Type: Progress Notes Filed: 06/21/2023 3:40 PM Note Text: CDM Telephonic Outreach Provider Action/FYI CDM: CHF, CKD Left a message instructed to call PCP with any changes in condition or needs. Contacted for: Routine Telephonic Outreach Contact made with patient: No, left message. Jacquelyn Conley RN June 18, 2023 3:13 PM [facility] 06-17-2023 Note Patient Outreach (AM [facility]) DARCY COVARRUBIAS ([id number]) 1935 M CHT Date Time Provider Department 06/17/23 JACQUELYN CONLEY [facility] During your visit today, we recorded the [...] 14 - Other: See Comments Comments: Dizziness GBAWOUB-QIN-PMV REDUCTASE INHIBIT*07/10/2014 14 - Other: See Comments [...] as needed for cough. - Lacto 21-Bifido 5-I-N2-B6-B12 (UP4 PROBIOTICS MEN'S) 50 billion cell -90 mg-30 mcg cap Take 1 tablet by mouth every other day. - atorvastatin (LIPITOR) 40 mg tablet Take 1 tablet by mouth once daily. - Coenzyme K26-Honzadk E 100-100 mg cap Take by mouth. [...] 1 tablet by mouth once daily. - Ptbdx-0-JIB-EPA-Fish Oil 1,000 mg (120 mg-180 mg) cap [...] left shoulder [M7*06/12/2014 Coronary artery disease involving [place]*07/29/2015 S/P CABG (coronary artery bypass graft) [Z95.1] 2015 Hypokalemia [E87.6] 02/05/2016 01/29/2023 Osteoarthritis of spine with radiculopathy, lum*02/21/2016 History of permanent cardiac pacemaker placemen*09/03/2016 Paroxysmal atrial fibrillation (HCC) [I48.0] 09/03/2016 Chronic anticoagulation [Z79.01] 09/03/2016 12/16/2018 Carotid stenosis, asymptomatic [I65.29] 02/11/2017 Hyperglycemia [R73.9] 02/11/2017 Anemia of chronic disease [D63.8] 02/11/2017 A (more content not included)... [facility] 05-16-2023 Note HNO ID: [id number] Author: Jacquelyn Conley RN Service: ? Author [...] Conley RN May 16, 2023 3:43 PM [facility] 05-16-2023 History of Present illness Narrative [...] 2023 1:31 PM documented in this encounter [facility] 05-10-2023 Note HNO ID: [id number] Author: Jacquelyn Conley RN Service: ? Author [...] Conley RN May 10, 2023 4:28 PM [facility] 05-07-2023 Note HNO ID: [id number] Author: Jacquelyn Conley RN Service: ? Author [...] Conley RN May 07, 2023 1:31 PM [facility] 05-07-2023 Note Patient Outreach (AM BCMG) DARCY COVARRUBIAS ([id number]) 1935 M CHT Date Time Provider Department [facility]/07[facility] [place] During your visit today, we [...] 14 - Other: See Comments Comments: Dizziness LLZRDNS-CWS-HPJ REDUCTASE INHIBIT*07/10/2014 14 - Other: See Comments [...] as needed for cough. - Lacto 21-Bifido 8-Z-N2-B6-B12 (UP4 PROBIOTICS MEN'S) 50 billion cell -90 mg-30 mcg cap Take 1 tablet by mouth every other day. - atorvastatin (LIPITOR) 40 mg tablet Take 1 tablet by mouth once daily. - Coenzyme N21-Ywlllbh E 100-100 mg cap Take by mouth. [...] 1 tablet by mouth once daily. - Ftvec-1-JSS-EPA-Fish Oil 1,000 mg (120 mg-180 mg) cap [...] left shoulder [M7*06/12/2014 Coronary artery disease involving [place]*07/29/2015 S/P CABG (coronary artery bypass graft) [Z95.1] 2015 Hypokalemia [E87.6] 04 (more content not included)... [facility] 05-06-2023 Note HNO ID: [id number] Author: Jacquelyn Conley RN Service: ? Author [...] Conley RN May 06, 2023 1:14 PM [facility] 05-06-2023 History of Present illness Narrative [...] 2023 3:42 PM documented in this encounter [facility] 05-05-2023 Note HNO ID: [id number] Author: Jacquelyn Conley RN Service: ? Author [...] Conley RN May 05, 2023 3:42 PM [facility] 05-05-2023 Note Patient Outreach (AM BC) DARCY COVARRUBIAS ([id number]) 1935 M T Date Time Provider Department [...] 14 - Other: See Comments Comments: Dizziness IEUNRYG-MQE-UBH REDUCTASE INHIBIT*07/10/2014 14 - Other: See Comments [...] as needed for cough. - Lacto 21-Bifido 6-G-Q4-B6-B12 (UP4 PROBIOTICS MEN'S) 50 billion cell -90 mg-30 mcg cap Take 1 tablet by mouth every other day. - atorvastatin (LIPITOR) 40 mg tablet Take 1 tablet by mouth once daily. - Coenzyme P37-Vwcbyyq E 100-100 mg cap Take by mouth. [...] 1 tablet by mouth once daily. - Wsnha-7-PFP-EPA-Fish Oil 1,000 mg (120 mg-180 mg) cap [...] left shoulder [M7*06/12/2014 Coronary artery disease involving [place]*07/29/2015 S/P CABG (coronary artery bypass graft) [Z95.1] 2015 Hypokalemia [E87.6] 02/05/2016 01/29/2023 Osteoarthritis of spine with radiculopathy, lum*02/21/2016 History of permanent cardiac pacemaker placemen*09/03/2016 Paroxysmal atrial fibrillation (HCC) [I48.0] 09/03/2016 Chronic anticoagulation [Z79.01] 09/03/2016 12/16/2018 Carotid stenosis, asymptomatic [I65.29] 02/11/2017 Hyperglycemia [R73.9] 02/11/2017 Anemia of chronic disease [D63.8] 02/11/2017 Atria (more content not included)... [facility] 04-26-2023 Note HNO ID: [id number] Author: Cat Chavira MD Service: ? Author Type: Physician Type: Progress Notes Filed: 04/26/2023 12:37 PM Note Text: [facility] SERVICE DATE: 04/26/2023 [...] mg by mouth every Wednesday,Wednesday,Wednesday.) Lacto 21-Bifido 5-N-L3-B6-B12 (UP4 PROBIOTICS MEN'S) 50 billion cell -90 mg-30 mcg cap Take 1 tablet by mouth every other day. atorvastatin (LIPITOR) 40 mg tablet Take 1 tablet by mouth once daily. Coenzyme M80-Oiaahek E 100-100 mg cap Take by mouth. [...] Take 1 tablet by mouth once daily. Sdggy-5-CCZ-EPA-Fish Oil 1,000 mg (120 mg-180 mg) cap [...] Reactions Indocin [Indometha (more content not included)... [facility] 04-01-2023 Note HNO ID: [id number] Author: Jacquelyn Conley RN Service: ? Author [...] pounds in a week? No Based on bonsai culturist, the following disposition is advised: No symptoms or symptoms present, not severe. Routed to: No Action Needed SEVEN Education Provided this Outreach: No Jacquelyn Conley RN April 01, 2023 6:03 PM [facility] 04-01-2023 History of Present illness Narrative [...] pounds in a week? No Based on bonsai culturist, the following disposition is advised: No symptoms [...] 2023 12:44 PM documented in this encounter [facility] 03-30-2023 Note HNO ID: [id number] Author: Jacquelyn Conley RN Service: ? Author [...] Conley RN March 30, 2023 12:44 PM [facility] 03-30-2023 Note Patient Outreach (AM BCMG) DARCY COVARRUBIAS ([id number]) 1935 M [facility] Date Time Provider Department 03/30/23 JACQUELYN CONLEY [...] pounds in a week? No Based on bonsai culturist, the following disposition is advised: No symptoms or symptoms present, not severe. Routed to: No Action Needed SEVEN Education Provided this Outreach: No Jacquelyn Colney RN April 01, 2023 6:03 PM Allergies As of Date: 03/30/2023 Noted Allergy Reaction INDOCIN (INDOMETHACIN SODIUM) 03/22/2012 8 - GI Upset NORVASC (AMLODIPINE BESYLATE) 12/16/2018 14 - Other: See Comments Comments: Dizziness HSLSIIS-KOJ-OKF REDUCTASE INHIBIT*07/10/2014 14 - Other: See Comments [...] as needed for cough. - Lacto 21-Bifido 4-K-Y0-B6-B12 (UP4 PROBIOTICS MEN'S) 50 billion cell -90 mg-30 mcg cap Take 1 tablet by mouth once daily. - atorvastatin (LIPITOR) 40 mg tablet Take 1 tablet by mouth once daily. - Coenzyme F67-Ucozxwn E 100-100 mg cap Take by mouth. [...] 1 tablet by mouth once daily. - Kwnba-6-QSQ-EPA-Fish Oil 1,000 mg (120 mg-180 mg) cap Take 2 g by mouth once daily. - PSYLLIUM HUSK, BULK, MISC Take 1 Packet by mouth once daily. 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 [facility] 03-04-2023 Note HNO ID: [id number] Author: Jacquelyn Conley RN Service: ? Author [...] Conley RN March 04, 2023 2:51 PM [facility] 03-04-2023 History of Present illness Narrative [...] 2023 3:46 PM documented in this encounter [facility] 03-02-2023 Note HNO ID: [id number] Author: Jacquelyn Conley RN Service: ? Author [...] Conley RN March 02, 2023 3:46 PM [facility] 03-02-2023 Note Patient Outreach (AM BCMG) DARCY COVARRUBIAS ([id number]) 1935 M T Date Time Provider Department [...] 14 - Other: See Comments Comments: Dizziness SWSQTKN-RVZ-MIP REDUCTASE INHIBIT*07/10/2014 14 - Other: See Comments [...] as needed for cough. - Lacto 21-Bifido 0-G-V5-B6-B12 (UP4 PROBIOTICS MEN'S) 50 billion cell -90 mg-30 mcg cap Take 1 tablet by mouth once daily. - atorvastatin (LIPITOR) 40 mg tablet Take 1 tablet by mouth once daily. - Coenzyme V07-Kkvlgal E 100-100 mg cap Take by mouth. [...] 1 tablet by mouth once daily. - Wdgec-1-FJC-EPA-Fish Oil 1,000 mg (120 mg-180 mg) cap [...] left shoulder [M7*06/12/2014 Coronary artery disease involving [place]*07/29/2015 S/P CABG (coronary artery bypass graft) [Z95.1] 2015 Hypokalemia [E87.6] 02/05/2016 01/29/2023 Osteoarthritis of spine with radiculopathy, lum*02/21/2016 History of permanent cardiac pacemaker placemen*09/03/2016 Paroxysmal atrial fibrillation (HCC) [I48.0] 09/03/2016 Chronic anticoagulation [Z79.01] 09/03/2016 12/16/2018 Carotid stenosis, asymptomatic [I65.29] 02/11/2017 Hyperglycemia [R73.9] 02/11/2017 Anemia o (more content not included)... [facility] 02-09-2023 Note HNO ID: [id number] Author: Cat Chavira MD Service: ? Author [...] obstructive uropathy with baseline creatinine 2.0-2.5 lately. [place] UA. Today patient does not have active [...] 07/28/2022 6.0 5.0 - 8.0 Final Specific [place], Ur Date Value Ref Range Status 07/28/2022 [...] Time Spent: 25 minutes Cat Chavira MD [facility] 02-08-2023 Note HNO ID: [id number] Author: Jacquelyn Conley RN Service: ? Author [...] pounds in a week? No Based on bonsai culturist, the following disposition is advised: Symptoms present, not severe. Routed to: No Action Needed SEVEN Education Provided this Outreach: No Jacquelyn Conley RN February 08, 2023 6:05 PM [facility] 02-08-2023 History of Present illness Narrative [...] pounds in a week? No Based on bonsai culturist, the following disposition is advised: Symptoms present, [...] 2023 11:12 AM documented in this encounter [facility] 02-05-2023 Note HNO ID: [id number] Author: Jacquelyn Conley RN Service: ? Author [...] Conley RN February 08, 2023 11:12 AM [facility] 02-05-2023 Note Patient Outreach (AM BCMG) DARCY COVARRUBIAS ([id number]) 1935 M T Date Time Provider Department [...] pounds in a week? No Based on bonsai culturist, the following disposition is advised: Symptoms present, not severe. Routed to: No Action Needed SEVEN Education Provided this Outreach: No Jacquelyn Conley RN February 08, 2023 6:05 PM Allergies As of Date: 02/05/2023 Noted Allergy Reaction INDOCIN (INDOMETHACIN SODIUM) 03/22/2012 8 - GI Upset NORVASC (AMLODIPINE BESYLATE) 12/16/2018 14 - Other: See Comments Comments: Dizziness MUOJOQL-RDN-RCY REDUCTASE INHIBIT*07/10/2014 14 - Other: See Comments [...] as needed for cough. - Lacto 21-Bifido 6-Z-F7-B6-B12 (UP4 PROBIOTICS MEN'S) 50 billion cell -90 mg-30 mcg cap Take 1 tablet by mouth once daily. - atorvastatin (LIPITOR) 40 mg tablet Take 1 tablet by mouth once daily. - Coenzyme V77-Hqxvjcb E 100-100 mg cap Take by mouth. [...] 1 tablet by mouth once daily. - Kozme-7-IGS-EPA-Fish Oil 1,000 mg (120 mg-180 mg) cap [...] keratosis [L82.1] 05/08/2011 (more content not included)... [facility] 02-02-2023 Note HNO ID: [id number] Author: Arnold Spencer MD Service: ? Author Type: Physician Type: Progress Notes Filed: 03/01/2023 2:10 AM Note Text: This note was created using rocket staffriter. Subjective Darcy Covarrubias is a 87 year [...] tablets by mouth every Wednesday,Wednesday,Wednesday. Lacto 21-Bifido 0-S-O0-B6-B12 (UP4 PROBIOTICS MEN'S) 50 billion cell -90 mg-30 mcg cap Take 1 tablet by mouth once daily. atorvastatin (LIPITOR) 40 mg tablet Take 1 tablet by mouth once daily. Coenzyme I21-Gcpwuye E 100-100 mg cap Take by mouth. [...] Take 1 tablet by mouth once daily. Afpwj-8-BFB-EPA-Fish Oil 1,000 mg (120 mg-180 mg) cap [...] making for managemen (more content not included)... [facility] 02-02-2023 History of Present illness Narrative [...] tablets by mouth every Wednesday,Wednesday,Wednesday. Lacto 21-Bifido 9-C-U1-B6-B12 (UP4 PROBIOTICS MEN'S) 50 billion cell -90 mg-30 mcg cap Take 1 tablet by mouth once daily. atorvastatin (LIPITOR) 40 mg tablet Take 1 tablet by mouth once daily. Coenzyme W67-Zelppoy E 100-100 mg cap Take by mouth. [...] Take 1 tablet by mouth once daily. Tdaeo-6-OWI-EPA-Fish Oil 1,000 mg (120 mg-180 mg) cap [...] Arnold Spencer MD documented in this encounter [facility] 01-08-2023 Note Patient Outreach (AM BCMG) DARCY COVARRUBIAS ([id number]) 1935 M T Date Time Provider Department [...] to speak with a social work steam box tender to help give you support for [...] you up for automated weekly questionnaires through [employer]. This is an easy way for us [...] 14 - Other: See Comments Comments: Dizziness DKFAGZV-SSQ-XKZ REDUCTASE INHIBIT*07/10/2014 14 - Other: See Comments Comments: myalgia LISINOPRIL 12/12/2020 3 - Cough Date Reviewed: 11/19/2022 Reviewed by: 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 APRN.COUNSELING SPECIALIST - Fully Assessed Reason for Visit: Community [...] as needed for cough. - Lacto 21-Bifido 1-B-F9-B6-B12 (UP4 PROBIOTICS MEN'S) 50 billion cell -90 mg-30 mcg cap Take 1 tablet by mouth once daily. - atorvastatin (LIPITOR) 40 mg tablet Take 1 tablet by mouth once daily. - Coenzyme B01-Mzresks E 100-100 mg cap Take by mouth. - loperamide (IMODIUM) 2 mg cap(s) (more content not included)... [facility] 01-08-2023 Note HNO ID: [id number] Author: Jacquelyn Conley RN Service: ? Author [...] to speak with a social work steam box tender to help give you support for [...] you up for automated weekly questionnaires through [employer]. This is an easy way for us [...] Conley RN January 08, 2023 8:52 AM [facility] 01-08-2023 History of Present illness Narrative [...] to speak with a social work steam box tender to help give you support for [...] you up for automated weekly questionnaires through [employer]. This is an easy way for us [...] 2023 8:52 AM documented in this encounter [facility] 01-07-2023 Miscellaneous Notes Patient has been identified by name and date of : Yes Spouse phones for refill(s): Requested Prescriptions Pending Prescriptions Disp Refills allopurinol (ZYLOPRIM) 100 mg tablet 180 tablet 1 Sig: Take 2 tablets by mouth once daily. For gout. Last Office Visit: 11/19/22 with 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 Next Visit: 02/02/[address] Palomo Clark, RN documented in this encounter [facility] 12-08-2022 Note HNO ID: [id number] Author: Jacquelyn Conley RN Service: ? Author [...] 12/11/22 Appt with Coco Singh GI/ Friend [facility] Wt 134 lbs, BP 120/80 Denies needs [...] to speak with a social work steam box tender to help give you support for [...] you up for automated weekly questionnaires through [employer]. This is an easy way for us [...] Conley RN December 08, 2022 9:17 AM [facility] 12-08-2022 History of Present illness Narrative [facility] TELEPHONIC OUTREACH Provider Action/FYI: Routed Updates to Dr. Palomo DAVENPORT: CHF, CKD Pt denies Sob, wheezing, extremity edema improved Pt noted dry cough when he has acid reflux, he is taking Pepcid OTC which is effective, 12/11/22 Appt with Coco BARRETT/ . Friend [facility] Wt 134 lbs, BP 120/80 Denies needs [...] to speak with a social work steam box tender to help give you support for [...] you up for automated weekly questionnaires through [employer]. This is an easy way for us [...] 2022 10:29 AM documented in this encounter [facility] 12-07-2022 Note Patient Outreach (AM BCMG) DARCY COVARRUBIAS ([id number]) 1935 M T Date Time Provider Department [...] 12/11/22 Appt with Coco BARRETT/ . Friend [facility] Wt 134 lbs, BP 120/80 Denies needs [...] to speak with a social work steam box tender to help give you support for [...] you up for automated weekly questionnaires through [employer]. This is an easy way for us [...] 14 - Other: See Comments Comments: Dizziness NNBQRKB-MLY-LVM REDUCTASE INHIBIT*07/10/2014 14 - Other: See Comments Comments: myalgia LISINOPRIL 12/12/2020 3 - Cough Date Reviewed: 11/19/2022 Reviewed by: 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 APRN.COUNSELING SPECIALIST - Fully Assessed Reason for Visit: Community Monitoring Outreach [Other] Prescriptions as of 12/08/2022 - torsemide (DEMADEX) 10 mg tablet Take 2 tablets by mouth every Wednesday,Wednesday,Wednesday. - benzonatate (TESSALON PERLES) 100 mg capsule Take 1-2 capsules by mouth three times daily as needed for cough. - Lacto 21-Bifido 8-Y-J8-B6-B12 (UP4 PROBIOTICS MEN'S) 50 billion cell -90 mg-30 mcg cap Take 1 tablet by mouth once daily. - magnesium oxide (MAG-OX) 400 mg (241.3 mg magnesium) tablet Take 1 tablet by mouth once daily. - atorvastatin (LIPITOR) 40 mg tablet Take 1 tablet by mouth once daily. - Co (more content not included)... [facility] 12-07-2022 Note HNO ID: [id number] Author: Jacquelyn Conley RN Service: ? Author [...] Conley RN December 07, 2022 10:29 AM [facility] 12-04-2022 Miscellaneous Notes Left message for pt to return phone call. Inquiring about who he is getting his eliquis filled with. Received refill request from [facility]. We have not filled it since 2020. He may be getting assistance through the assistance program. Please verify. Elizabeth Evans RN documented in this encounter [facility] 11-24-2022 Miscellaneous Notes notified and verbalized [...] have a refill. Please call her at [phone] Spoke with patients . Patient called cardiology as soon as they left appointment with SUSHMA Bellamy. [employer] Director put him on Spirolactone and potassium and wanted him to have labs done wed,wed, or and once they have lab work back she is to call for an appt with them. Please check to see how he is doing re: cough and if he has a cardiology appointment upcoming. documented in this encounter [facility] 11-20-2022 Miscellaneous Notes Joseph needs a refill on Torsemide 10 mg but Deirdre said that they told you the stacker attendant put him on Torsemide 20 mg on Wednesday, Wednesday and Wednesday. Deirdre want you to remember that when you refill the prescription. Please send to [facility]. Any questions call Deirdre [phone] documented in this encounter [facility] 11-19-2022 Note HNO ID: [id number] Author: RT Ellen(R) Service: Nuclear Medicine Author [...] Plaza, (R) November 19, 2022 2:26 PM [facility] 11-19-2022 Note HNO ID: [id number] Author: 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 APRN.COUNSELING SPECIALIST Service: ? Author Type: Nurse Specialist Type: [...] from previous visit: He was admitted to [facility] July 13 through July 15 with progressively worsening shortness of breath for several weeks prior to arrival along with chest discomfort. Recent echocardiogram at [facility] showed ejection fraction of 20%, severe global hypokinesis, 1-2+ eccentric mitral regurgitation, RVSP 44 mmHg. 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 He was treated with Lasix 40 mg IV twice daily while hospitalized. 1500 mL fluid restriction. Daily weights. Kidney and electrolyte monitoring. Followed by [facility], . He was seen by [...] and magnesium advised. Advised to follow-up with public safety teacher and stacker attendant. Advised to follow-up with urologist Dr. Douglas. [...] Right Ear: Tympa (more content not included)... [facility] 11-05-2022 Note HNO ID: [id number] Author: Jacquelyn Conley, RN Service: ? Author [...] to speak with a social work steam box tender to help give you support for [...] you up for automated weekly questionnaires through [employer]. This is an easy way for us [...] Conley RN November 05, 2022 10:17 AM [facility] 11-05-2022 History of Present illness Narrative [...] to speak with a social work steam box tender to help give you support for [...] you up for automated weekly questionnaires through [employer]. This is an easy way for us [...] RN November 05, 2022 10:17 AM [facility] TELEPHONIC OUTREACH Provider Action/FYI: CHF/ CKD: Called [...] RN November 04, 2022 9:39 AM [facility] TELEPHONIC OUTREACH Provider Action/FYI: Called Pt left a message to verify symptom status and needs. Instructed to call PCP with any symptom or condition changes. Contact made with patient: No - Left message Hello my name is Jacquelyn Conley RN your Horse Rider from the [facility] I am calling today for your [...] 2022 12:21 PM documented in this encounter [facility] 11-04-2022 Note HNO ID: [id number] Author: Jacquelyn Conley RN Service: ? Author [...] Conley RN November 04, 2022 9:39 AM [facility] 11-03-2022 Note HNO ID: [id number] Author: Cat Chavira MD Service: ? Author Type: Physician Type: Progress Notes Filed: 11/03/2022 6:17 PM Note Text: [facility]IC[facility] SERVICE DATE: 11/03/2022 [...] Diastolic Heart Failure (Hcc) MEDICATIONS: Lacto 21-Bifido 2-U-Z6-B6-B12 (UP4 PROBIOTICS MEN'S) 50 billion cell -90 [...] Tablet Every Wednesday, Wednesday, and Wednesday) Coenzyme F79-Fbpbkcc E 100-100 mg capTake by mouth.Disp: Rfl: [...] by mouth once daily.Disp: 30 tabletRfl: 0 Xzkje-4-DAD-EPA-Fish Oil 1,000 mg (120 mg-180 mg) capTake [...] No sig reported) (more content not included)... [facility] 11-03-2022 History of Present illness Narrative [facility] SERVICE DATE: 11/03/2022 [...] Diastolic Heart Failure (Hcc) MEDICATIONS: Lacto 21-Bifido 7-A-K6-B6-B12 (UP4 PROBIOTICS MEN'S) 50 billion cell -90 [...] Tablet Every Wednesday, Wednesday, and Wednesday) Coenzyme X56-Tbbtlts E 100-100 mg cap^Take by mouth.^Disp: ^Rfl: [...] by mouth once daily.^Disp: 30 tablet^Rfl: 0 Tylui-1-VZP-EPA-Fish Oil 1,000 mg (120 mg-180 mg) cap^Take [...] Upset Norvasc [Amlodipine* Other: See Comments Dizziness Ktbhitc-Qui-Ayd Red* Other: See Comments myalgia Lisinopril Cough [...] 07/28/2022 6.0 5.0 - 8.0 Final Specific [place], Ur Date Value Ref Range Status 07/28/2022 [...] Staff, Department of Kidney Medicine Pager # [phone] 11/03/22 3:09 PM CC: PRIMARY CARE PHYSICIAN: Arnold Spencer MD documented in this encounter [facility] 11-02-2022 Note HNO ID: [id number] Author: Jacquelyn Conley RN Service: ? Author Type: Registered Nurse Type: Progress Notes Filed: 11/05/2022 10:38 AM Note Text: [facility]LE[facility]IC [facility]RE[facility] Provider Action/FYI: Called Pt left a message to verify symptom status and needs. Instructed to call PCP with any symptom or condition changes. Contact made with patient: No - Left message Hello my name is Jacquelyn Conley RN your Horse Rider from the [facility] I am calling today for your bi-weekly check in. I am sorry I missed your call. I will reach out to you again tomorrow. (if the third call I will reach out to you again next week) Enter next patient outreach date for the following day using the Track Pt Outreach. End outreach. Jacquelyn Conley RN November 02, 2022 12:21 PM [facility] 11-02-2022 Note Patient Outreach (AM BCMG) DARCY COVARRUBIAS ([id number]) 1935 M T Date Time Provider Department 11/02/22 [facility] During your visit today, we recorded the following information about you: Jacquelyn Conley RN 11/05/2022 10:38 AM Signed [employer] [facility] TELEPHONIC OUTREACH Provider Action/FYI: Called Pt left a message to verify symptom status and needs. Instructed to call PCP with any symptom or condition changes. Contact made with patient: No - Left message Iva my name is Jacquelyn Conley RN your Horse Rider from the [facility] I am calling today for your [...] Jacquelyn Conley RN 11/05/2022 10:38 AM Signed [employer] [facility] TELEPHONIC OUTREACH Provider Action/FYI: CHF/ CKD: Called [...] Jacquelyn Conley RN 11/05/2022 10:38 AM Signed [employer] [facility] TELEPHONIC OUTREACH Provider Action/FYI: Spk with Pt, [...] to speak with a social work steam box tender to help give you support for [...] you up for automated weekly questionnaires through [employer]. This is an easy way for us [...] See Comments Comments: (more content not included)... [facility] 10-14-2022 Miscellaneous Notes The following approved [...] Blanquita Mireles RN documented in this encounter [facility] 10-09-2022 Miscellaneous Notes Patient has been [...] you. Dorothy Navarrete documented in this encounter [facility] 09-29-2022 History of Present illness Narrative [...] is receiving Physical Therapy 2x week at [facility] in [place] BP 118-120/80, wt 150 lbs Gastroenterology Appt 10/06/22 Coco Singh at [facility] ADL/ Falls/ Goals completed Contact made with [...] to speak with a social work steam box tender to help give you support for [...] you up for automated weekly questionnaires through [employer]. This is an easy way for us [...] 2022 9:36 AM documented in this encounter [facility] 08-28-2022 History of Present illness Narrative [...] Partha Santana PA-C documented in this encounter [facility] 08-28-2022 History of Present illness Narrative [...] to speak with a social work steam box tender to help give you support for [...] you up for automated weekly questionnaires through [employer]. This is an easy way for us [...] 2022 11:52 AM documented in this encounter [facility] 08-19-2022 History of Present illness Narrative [...] Staff, Department of Kidney Medicine Pager # [phone] 08/19/22 5:36 PM documented in this encounter [facility] 08-11-2022 Miscellaneous Notes Pts called and is notified of providers message. Pt voices understanding, Pts will call and schedule appointment with Dr Fox. Orders, most recent OV, and most recent labs were sent to Dr Fox at [phone]. Araceli Hassan RN Patient's calls is asking if patient can have a distribution center administrator referral. Patient was seen at Dr. Ortega and nurse practitioner suggested that patient have a referral for a distribution center administrator due to patient's chronic diarrhea. asking for referral. Please review and advise, Mary Hogan RN documented in this encounter [facility] 08-10-2022 Miscellaneous Notes Pt's called and [...] Ivana Roberts LPN documented in this encounter [facility] 08-07-2022 History of Present illness Narrative INSIGHT CDM TELEPHONIC OUTREACH Provider Action/FYI: Routed updates to Dr. Spencer/ 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 CNP . Pt and are requesting a call to them directly with a Gastroenterology referral. Spk with Pt, he noted was diagnosed with Covid, Admitted 07/13/22 to [facility] due to dehydration. Pt denies current Sob, wheezing, coughing or edema, BP 117/68, wt 148 lbs, he is speaking in full sentences, no respiratory distress. Pt and is asking for a Gastroenterology referral for Acid reflux and intermittent diarrhea for past 4 months. noted he was checked for and negative for C-Diff at [facility]. Pt completed Appt 08/04/[address] Oquendos / Monik Gilbert LEG ASSEMBLER, Echo is scheduled 08/17/[address] [facility], Deirdre noted Cardiology stated Joseph may need [...] to speak with a social work steam box tender to help give you support for [...] you up for automated weekly questionnaires through [employer]. This is an easy way for us [...] 2022 11:41 AM documented in this encounter [facility] 08-04-2022 Miscellaneous Notes Faxed Ordered, please print and fax Enid Marie APRN.SB Wanting a referral to [facility] for physical therapy. Lindsey Gómez LPN documented in this encounter [facility] 07-31-2022 Instructions Cat Chavira MD - [...] in 3 months documented in this encounter [facility] 07-31-2022 History of Present illness Narrative [facility] KIDNEY MEDICINE [facility]OLOGICAL [facility]STITUTE SERVICE DATE: 07/31/2022 [...] exam Interval hx: Pt was admitted to [facility] July 13 through July 15 with [...] Diarrhea has also improved (he states that Palestinian cheese helps him with that). He is [...] 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 (Formerly [facility]) Non-Rheumatic Mitral Regurgitation Acute Idiopathic Gout [...] pounds or more/1week^Disp: 30 tablet^Rfl: 1 Coenzyme J25-Jshkvar E 100-100 mg cap^Take by mouth.^Disp: ^Rfl: [...] by mouth once daily.^Disp: 30 tablet^Rfl: 0 Vdfex-8-WYX-EPA-Fish Oil 1,000 mg (120 mg-180 mg) cap^Take [...] Upset Norvasc [Amlodipine* Other: See Comments Dizziness Vavylpj-Rla-Rak Red* Other: See Comments myalgia Lisinopril Cough [...] 07/28/2022 6.0 5.0 - 8.0 Final Specific [place], Ur Date Value Ref Range Status 07/28/2022 [...] Staff, Department of Kidney Medicine Pager # [phone] 07/30/22 8:53 PM CC: PRIMARY CARE PHYSICIAN: Arnold Spencer MD documented in this encounter [facility] 2022 Miscellaneous Notes Pt and called and notified of providers results and instructions. They voice understanding. Araceli Hassan RN Labs show creatinine improved. Potassium improved. BUN elevated. Recommend sufficient fluid intake and one torsemide daily today and tomorrow, then adjust according to public safety teacher recommendations. Glucose elevated, will check A1c with [...] (L) 31 (L) documented in this encounter [facility] 07-28-2022 History of Present illness Narrative Images from the original note were not included. [facility] NEW PATIENT CLINIC NOTE SERVICE DATE: 07/28/2022 SERVICE TIME: 2:07 PM NAME: Darcy Coavrrubias CHIEF COMPLAINT: Flomax and Renal Cyst, CKD HISTORY OF PRESENT ILLNESS: Darcy Covarrubais is a 86 year old Male with [...] pounds or more/1week^Disp: 30 tablet^Rfl: 1 Coenzyme D92-Emybphs E 100-100 mg cap^Take by mouth.^Disp: ^Rfl: [...] ^Rfl: (Patient not taking: No sig reported) Cxysd-0-UFS-EPA-Fish Oil 1,000 mg (120 mg-180 mg) cap^Take [...] Appointment with Partha. documented in this encounter [facility] 07-21-2022 Instructions 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 APRN.COUNSELING SPECIALIST - 07/21/2022 3:36 PM EDT Take torsemide 10 mg daily. Take an additional 10 mg dose if leg swelling, shortness of breath or 3 pound or greater weight gain. Take potassium once daily while taking torsemide documented in this encounter [facility] 07-21-2022 History of Present illness Narrative [...] s visit. HPI: He was admitted to [facility] July 13 through July 15 with progressively worsening shortness of breath for several weeks prior to arrival along with chest discomfort. Recent echocardiogram at [facility] showed ejection fraction of 20%, severe global hypokinesis, 1-2+ eccentric mitral regurgitation, RVSP 44 mmHg. 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 He was treated with Lasix 40 mg IV twice daily while hospitalized. 1500 mL fluid restriction. Daily weights. Kidney and electrolyte monitoring. Followed by [facility], . He was seen by [...] and magnesium advised. Advised to follow-up with public safety teacher and stacker attendant. Advised to follow-up with urologist Dr. Douglas. [...] immunization - ICD9: V03.89, ICD10: Z23 - [employer] COVID-19 BIVALENT BOOSTER VACCINE, AGE 12+ YR [...] 2022 12:59 PM documented in this encounter [facility] 07-17-2022 History of Present illness Narrative [...] 2022 2:01 PM documented in this encounter [facility] 07-16-2022 History of Present illness Narrative TRANSITION CARE MANAGEMENT (TCM) INITIAL CONTACT Brass Pickler Outreach Provider Action/FYI: TCM Initial contact with patient post discharge, spoke to spouse. Patient identified by name and . TRANSITION CARE MANAGEMENT INITIAL OUTREACH DOCUMENTATION: Date of Outreach: 07/16/2022 Outreach Attempt 1: Contact Made Date of Discharge 07/15/2022 Some recent data might be hidden SUMMARY: -Pt discharged from [facility] on 07/15/22. -Admitted for: chest pain and [...] pt spironolactone since the torsemide was increased. [facility] did not have spironolactone on pts discharge med list. Were any of your medications discontinued? No Do you have any questions about getting or taking your medications? Yes she will review at 07/21/22 appt with DIGITAL COMPOSER. She has also reached out to the public safety teacher to get a sooner appt since pt [...] stay with [facility]. documented in this encounter [facility] 07-16-2022 Miscellaneous Notes Joseph's Deirdre called saying after the appointment on 07/10 Joseph ended up in the hospital. When he was released they suggested that he come and see you within 2 weeks but you have no appointments until August. would like for you to call. [phone]. Patient was admitted to [facility] in [place]. documented in this encounter [facility] 07-10-2022 Instructions Cat Chavira MD - [...] for further instruction. Please, follow with your stacker attendant at your closest convenience Follow up in 2-3 months with blood test prior to your appt documented in this encounter [facility] 07-10-2022 History of Present illness Narrative [facility] KIDNEY MEDICINE [facility] SERVICE DATE: 07/10/2022 [...] 2 Sprays in the nose once daily. [facility]^Disp: ^Rfl: cyanocobalamin (VITAMIN B-12) 1,000 mcg tab^Take 1 tablet by mouth once daily.^Disp: 30 tablet^Rfl: 0 Eitha-2-VYP-EPA-Fish Oil 1,000 mg (120 mg-180 mg) cap^Take [...] Upset Norvasc [Amlodipine* Other: See Comments Dizziness Wciopnq-Ohd-Aqi Red* Other: See Comments myalgia Lisinopril Cough [...] 06/14/2015 6.5 5.0 - 8.0 Final Specific [place], Ur Date Value Ref Range Status 06/14/2015 [...] Calcium, Total (mg/dL) Date Value 07/06/2022 9.2 [facility] Cardiovascular Services [address] [place] [address] Echo Complete 03/27/22 0808 MR#: [id number] Acct: [id number] Name: DARCY COVARRUBIAS Rep #:[id number] : 1935 86 From: Destin Harvey MD Attending Dr: Dr. Destin Harvey MD S tatus: REG CLI Ordering Dr: Destin Harvey MD Date: 01/13 Location: [facility] Sex: M C Admitted: Reason For [...] Transcribed: 03/27/22 110 Kidney and Bladder MR#: [id number] Acct: [id number] Name: DARCY COVARRUBIAS Rep #: [id number] : 1935 M 86 From: [facility] [place]ya [place] PCP: Dr. Arnold Spencer MD Status: AD M IN Study:Kidney and Bladder Date of Exam: 0 05/09/22 Exam# [id number] Ordering Dr: Yisel Pablo MD STUDY: RENAL [...] 21:29 EDT Reading Location ID and State: [address] [place] [address] Tel [phone], Service support , ASSESSMENT: 86 year old male who presents with impaired kidney function. Encounter Diagnosis ICD-10-CM 1. Chronic combined systolic and diastolic congestive heart failure ([facility]) I50.42 NT PRO BNP torsemide (DEMADEX) 10 mg tablet RENAL FUNCTION PANEL DISCONTINUED: furosemide (LASIX) 20 mg tablet 2. MARCOS (acute kidney injury) ([facility]) N17.9 NT PRO BNP URINALYSIS, WITH MICROSCOPIC PROTEIN CREATININE RATIO ALBUMIN/CREAT RATIO RND UR MONOCLONAL PROTEIN, SERUM (BLOOD) US KIDNEY/BLADDER torsemide (DEMADEX) 10 mg tablet RENAL FUNCTION PANEL 3. Hydronephrosis, unspecified hydronephrosis type N13.30 US KIDNEY/BLADDER 4. Edema, unspecified type R60.9 5. Chronic combined systolic and diastolic CHF (congestive heart failure) ([facility]) I50.42 6. Diarrhea, unspecified type [...] started. Patient is still follow-up with his stacker attendant at his closest convenience -RTC in 2 [...] Staff, Department of Kidney Medicine Pager # [phone] 07/10/22 4:16 PM CC: REFERRING PROVIDER: [facility] PRIMARY CARE PHYSICIAN: Arnold Spencer MD documented in this encounter [facility] 06-23-2022 Instructions 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 APRN.CNS - 06/23/2022 2:53 PM EDT Check labs today Decrease or discontinue your dose of fiber for now to see if decreases number of bowel movements. Stay on lasix for one month documented in this encounter [facility] 06-23-2022 History of Present illness Narrative [...] last here he has been seen by [facility]. His metoprolol was discontinued and he was started on carvedilol 25 mg twice daily by the stacker attendant. Stress test and echocardiogram was ordered. He was admitted to [facility] emergency department with a complaint of [...] nephrology in 1 to 2 weeks. Notes public safety teacher ordered labs. Follow-up lab work: yesterday; not viewable in epic Will be seeing Sheri Electronic Development Technician, not CC provider. Was taking sodium [...] Upset Norvasc [Amlodipine* Other: See Comments Dizziness Yrinpng-Whu-Hrf Red* Other: See Comments myalgia Lisinopril Cough [...] for wheezing/shortness of breath.^Disp: 6.7 g^Rfl: 0 Qymeg-7-EDE-EPA-Fish Oil (FISH OIL) 1,000 mg (120 mg-180 [...] 4.00 k/uL 1.25 0.94 (L) 0.96 (L) Tensas% % 9.1 10.6 11.6 Abs Tensas <0.87 k/uL 0.56 0.55 0.68 Eosin% % [...] 4 - Moderate\ documented in this encounter [facility] 06-18-2022 Miscellaneous Notes Patient's notified of [...] Please advise . documented in this encounter [facility] 06-15-2022 History of Present illness Narrative [...] and patient's preferred method of contact (telephone, [employer], [employer]), your name, your contact number. Informed patient [...] 2022 1:36 PM documented in this encounter [facility] 06-15-2022 History of Present illness Narrative Virtualist Distance Health Note (Community monitoring/CC HC/H@[facility] escalations) Adult seen for Monitoring Track: Chronic Disease Management Contacted by phone, [employer], [employer], [employer], other: phone History of present [...] in as Primary Virtualist, Secondary Virtualist, or [facility] Telehealth provider: Primary SIGNATURE: Carine Faria MD PATIENT NAME: Darcy Covarrubias DATE: June 15, 2022 documented in this encounter [facility] 06-05-2022 History of Present illness Narrative This note was created using Max-Viz. Subjective Darcy Covarrubias is a 86 year [...] 2 Sprays in the nose once daily. [place] [facility] cyanocobalamin (VITAMIN B-12) 1,000 mcg tab Take 1 tablet by mouth once daily. Dvojr-6-TDV-EPA-Fish Oil (FISH OIL) 1,000 mg (120 mg-180 [...] re-evaluation as needed. Also, follow up with stacker attendant if ongoing issues with leg swelling, or [...] Arnold Spencer MD documented in this encounter [facility] 05-29-2022 History of Present illness Narrative INSIGHT CDM TELEPHONIC OUTREACH Provider Action/FYI: Call to Pt left a message to verify CHF/ CKD or other symptoms or needs. Contact made with patient: No - Left message Hello my name is Jacquelyn Conley RN your Horse Rider from the [facility] I am calling today for your [...] 2022 1:21 PM documented in this encounter [facility] 05-26-2022 History of Present illness Narrative Transitional Care Management Progress Note The patients TCM visit was performed within the 14 days of discharge. Patient's Date of discharge: May 13 Date of initial coordinator contact after discharge: May 15 Discharge diagnosis: Acute COVID 19, acute kidney injury Medication review completed yes 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 APRN.COUNSELING SPECIALIST Provider Documentation: In follow-up of hospitalization, Darcy [...] s visit. HPI: He was admitted to [facility] emergency department with a complaint of [...] nephrology in 1 to 2 weeks. Notes public safety teacher ordered labs. Follow-up lab work: yesterday; not viewable in epic Will be seeing Sheri Electronic Development Technician, not CC provider. Was taking sodium [...] ICD9: 276.8, ICD10: E87.6 Labs ordered through public safety teacher today will be having a phone visit with tomorrow for follow-up. [place] [facility] 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 APRN.CNS May 26, 2022 8:30 AM documented in this encounter [facility] 05-15-2022 History of Present illness Narrative noted TRANSITION CARE MANAGEMENT (TCM) INITIAL CONTACT Brass Pickler Outreach Provider Action/FYI: TCM Initial contact with patient post discharge, spoke to spouse. Patient identified by name and . TRANSITION CARE MANAGEMENT INITIAL OUTREACH DOCUMENTATION: Date of Outreach: 05/15/2022 Outreach Attempt 1: Contact Made Date of Discharge 05/13/2022 Some recent data might be hidden SUMMARY: -Pt discharged from [facility] on 05/13/22. -Admitted for: acute kidney injury, acute COVID Do you have a hospital follow up appointment with your PCP? Appointment on 05/26/22 with 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 DIGITAL COMPOSER. Yes. Remind patient of appointment date, time, [...] up with nephrology documented in this encounter [facility] 05-15-2022 Miscellaneous Notes Info relayed to [...] to the hospital. documented in this encounter [facility] 05-12-2022 History of Present illness Narrative INSIGHT CD TELEPHONIC OUTREACH Provider Action/FYI: Updates routed to Dr. Spencer [facility] 05/07/22 Diarrhea, MARCOS ( C-Diff) treated with [...] to speak with a social work steam box tender to help give you support for [...] you up for automated weekly questionnaires through [employer]. This is an easy way for us [...] 2022 8:14 AM documented in this encounter [facility] 05-08-2022 Miscellaneous Notes noted Patient's calls [...] would recommend a visit either with his stacker attendant or us for recheck. Pts called in [...] building for a while now. PCP and [employer] Director have been trying to change medications around to see if that would help. School Of Nursing Director took him off of Metoprolol and Losartan (04/01), and put him on Entresto 49-51 twice a day. Med list has been updated. is worried about and called pharmacy and they said they didn't see anything on his med list that should be causing him to be so tired, and told her to call PCP. Please call and advise. documented in this encounter [facility] 05-07-2022 Miscellaneous Notes His carotid ultrasound looks good. No significant change. If he is doing well, would recommend repeating ultrasound in 6 months Patient called and informed Encounter closed Joseph had testing done today and would like to be called on his home phone, with results. documented in this encounter [facility] 04-10-2022 History of Present illness Narrative [...] to speak with a social work steam box tender to help give you support for [...] you up for automated weekly questionnaires through [employer]. This is an easy way for us [...] 2022 10:39 AM documented in this encounter [facility] 03-26-2022 History of Present illness Narrative INSIGHT CDM TELEPHONIC OUTREACH Provider Action/FYI: Routed updates to Dr. Spencer and 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 Spangelito with Deirdre she noted Joseph has mild intermittent Sob with exertion, [facility] [employer], He completed 03/06/[address] Harvey Cardiology, is scheduled 03/27/22 for a stress Test and Echo at [facility]. BP 126/80, wt 150 lbs Contact made [...] to speak with a social work steam box tender to help give you support for [...] you up for automated weekly questionnaires through [employer]. This is an easy way for us [...] 2022 4:19 PM documented in this encounter [facility] 03-19-2022 History of Present illness Narrative INSIGHT [facility] TELEPHONIC OUTREACH Provider Action/FYI: Call to Pt, left a message, related to CHF/ CKD symptom status and needs. Contact made with patient: No - Left message Hello my name is Jacquelyn Conley RN your Horse Rider from the [facility] I am calling today for your [...] 2022 4:47 PM documented in this encounter [facility] 03-18-2022 History of Present illness Narrative INSIGHT [facility] TELEPHONIC OUTREACH Provider Action/FYI: Call to Pt left a message to verify CHF/ CKD symptom status, and needs. Contact made with patient: No - Left message Hello my name is Jacquelyn Conley RN your Horse Rider from the [facility] I am calling today for your [...] 2022 3:18 PM documented in this encounter [facility] 03-16-2022 History of Present illness Narrative INSIGHT CDM TELEPHONIC OUTREACH Provider Action/FYI: Call to Pt, left a message, related to CHF/ CKD symptom status and needs. Contact made with patient: No - Left message Iva my name is Jacquelyn Conley RN your Horse Rider from the [facility] I am calling today for your [...] 2022 4:20 PM documented in this encounter [facility] 03-10-2022 History of Present illness Narrative [...] history. Has been seen by Dr. Lanza, stacker attendant Yumiko April 2021. At that visit he [...] help too much. Did have a spine photography colorist reported to lasted a few days and [...] for follow-up visit having been seen at [facility] emergency department yesterday, January 05, 2022 [...] was unable to get into see a stacker attendant with [facility] locally so he made an appointment with [facility]. Since last here he has been seen by [place] [facility]. His metoprolol was discontinued and he was started on carvedilol 25 mg twice daily by the stacker attendant. Stress test and echocardiogram was ordered. Without [...] Upset Norvasc [Amlodipine* Other: See Comments Dizziness Bmsjqyv-Byj-Rbi Red* Other: See Comments myalgia Lisinopril Cough [...] in the nose once daily. [facility] Ugkbj-3-EOX-EPA-Fish Oil (FISH OIL) 1,000 mg (120 mg-180 [...] 4.00 k/uL 1.25 0.94 (L) 0.96 (L) Tensas% % 9.1 10.6 11.6 Abs Tensas <0.87 k/uL 0.56 0.55 0.68 Eosin% % [...] difference for him. He will follow with [facility] now. Echocardiogram stress test has been ordered and is being completed at [facility]. 2. S/P CABG (coronary artery bypass graft) - ICD9: V45.81, ICD10: Z95.1 3. Essential hypertension - ICD9: 401.9, ICD10: I10 controlled 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 APRN.CNS Medical Decision Making: Problems: Moderate: 1+ chronic illnesses with change Data: Unique test result(s) reviewed: 2 Medical Decision Making Level: 3 - Low \ documented in this encounter [facility] 03-06-2022 History of Present illness Narrative [facility] TELEPHONIC OUTREACH Provider Action/FYI: Call to Pt, left a message, related to CHF/ CKD symptom status and needs. Contact made with patient: No - Left message Hello my name is Jacquelyn Conley RN your Horse Rider from the [facility] I am calling today for your [...] RN March 06, 2022 10:09 AM [facility] TELEPHONIC OUTREACH Provider Action/FYI: Call to Pt [...] 2022 9:36 AM documented in this encounter [facility] 02-12-2022 Miscellaneous Notes Last seen DIGITAL COMPOSER 01/13/22 Next appt 03/10/22 Patient has been identified by name and date of : Yes Pending Prescriptions Disp Refills LOSARTAN 50 MG TABLET 90 tablet 3 Sig: Take 1 tablet by mouth once daily. ANASTASIYA: No RX INSTRUCTIONS: Patient aware RX will be sent to pharmacy. No need to notify patient. Tish Duran documented in this encounter [facility] 02-03-2022 History of Present illness Narrative [...] to speak with a social work steam box tender to help give you support for [...] you up for automated weekly questionnaires through [employer]. This is an easy way for us [...] 2022 10:43 AM documented in this encounter [facility] documented as of this encounter (statuses as of 02/09/2023) [facility] History of Past illness Narrative* Problem [...] of this encounter (statuses as of 03/01/2023) [facility] History of Past illness Narrative* Problem [...] of this encounter (statuses as of 03/05/2023) [facility] Past illness Narrative* Problem [...] of this encounter (statuses as of 04/02/2023) [facility] Narrative* Problem [...] of this encounter (statuses as of 05/06/2023) [facility] N[facility]* Problem [...] of this encounter (statuses as of 05/16/2023) [facility]* Problem [...] of this encounter (statuses as of 06/05/2023) [facility] N[facility]* Problem [...] of this encounter (statuses as of 06/22/2023) [facility] N[facility]* Problem [...] of this encounter (statuses as of 07/17/2023) [facility] N[facility]* Problem [...] of this encounter (statuses as of 08/10/2023) [facility] N[facility]* Problem [...] of this encounter (statuses as of 08/10/2023) [facility]* Problem [...] of this encounter (statuses as of 02/03/2022) [facility]* Problem [...] of this encounter (statuses as of 02/12/2022) [facility]* Problem [...] of this encounter (statuses as of 03/06/2022) [facility]* Problem [...] of this encounter (statuses as of 03/10/2022) [facility]* Problem [...] of this encounter (statuses as of 03/13/2022) [facility]* Problem [...] of this encounter (statuses as of 03/13/2022) [facility]* Problem [...] of this encounter (statuses as of 03/18/2022) [facility]* Problem [...] of this encounter (statuses as of 03/19/2022) [facility]* Problem [...] of this encounter (statuses as of 03/19/2022) [facility]* Problem [...] of this encounter (statuses as of 03/26/2022) [facility]* Problem [...] of this encounter (statuses as of 04/10/2022) [facility]* Problem [...] of this encounter (statuses as of 05/07/2022) [facility]* Problem [...] of this encounter (statuses as of 05/08/2022) [facility]* Problem [...] of this encounter (statuses as of 05/12/2022) [facility]* Problem [...] of this encounter (statuses as of 05/15/2022) [facility]* Problem [...] of this encounter (statuses as of 05/15/2022) [facility]* Problem [...] of this encounter (statuses as of 05/26/2022) [facility]* Problem [...] of this encounter (statuses as of 05/29/2022) [facility]* Problem [...] of this encounter (statuses as of 06/15/2022) [facility]* Problem [...] of this encounter (statuses as of 06/15/2022) [facility]* Problem [...] of this encounter (statuses as of 06/18/2022) [facility]* Problem [...] of this encounter (statuses as of 06/23/2022) [facility]* Problem [...] of this encounter (statuses as of 07/11/2022) [facility]* Problem [...] of this encounter (statuses as of 07/16/2022) [facility]* Problem [...] of this encounter (statuses as of 07/17/2022) [facility]* Problem [...] of this encounter (statuses as of 07/21/2022) [facility]* Problem [...] of this encounter (statuses as of 07/22/2022) [facility]* Problem [...] of this encounter (statuses as of 07/28/2022) [facility]* Problem [...] of this encounter (statuses as of 2022) [facility]* Problem [...] of this encounter (statuses as of 07/31/2022) [facility]* Problem [...] of this encounter (statuses as of 08/03/2022) [facility]* Problem [...] of this encounter (statuses as of 08/04/2022) [facility]* Problem [...] of this encounter (statuses as of 08/07/2022) [facility]* Problem [...] of this encounter (statuses as of 08/10/2022) [facility]* Problem [...] of this encounter (statuses as of 08/11/2022) [facility]* Problem [...] of this encounter (statuses as of 08/15/2022) [facility]* Problem [...] of this encounter (statuses as of 08/19/2022) [facility]* Problem [...] of this encounter (statuses as of 08/28/2022) [facility]* Problem [...] of this encounter (statuses as of 08/28/2022) [facility]* Problem [...] of this encounter (statuses as of 09/30/2022) [facility]* Problem [...] of this encounter (statuses as of 10/09/2022) [facility]* Problem [...] of this encounter (statuses as of 10/16/2022) [facility]* Problem [...] of this encounter (statuses as of 11/04/2022) [facility]* Problem [...] of this encounter (statuses as of 11/05/2022) [facility]* Problem [...] of this encounter (statuses as of 11/20/2022) [facility]* Problem [...] of this encounter (statuses as of 11/20/2022) [facility]* Problem [...] of this encounter (statuses as of 11/24/2022) [facility]* Problem [...] of this encounter (statuses as of 12/04/2022) [facility]* Problem [...] of this encounter (statuses as of 12/05/2022) [facility]* Problem [...] of this encounter (statuses as of 12/08/2022) [facility]* Problem [...] of this encounter (statuses as of 01/07/2023) [facility]* Problem [...] of this encounter (statuses as of 01/08/2023) [facility] [place] [facility] Diagnosis Congestive heart failure, unspecified HF chronicity, unspecified heart failure type (HCC)- Primary 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 Essential hypertension Unspecified essential hypertension [facility] Diagnosis Bradycardia Other specified cardiac dysrhythmias [facility] Diagnosis Bilateral carotid artery stenosis- Primary Occlusion and stenosis of carotid artery without mention of cerebral infarction [facility] [place] [facility] Diagnosis COVID-19- Primary MARCOS (acute kidney injury) (HCC) Acute kidney failure, unspecified Hypokalemia Hypopotassemia [facility] [place] [facility]* Diagnosis Peripheral edema- Primary Edema Cough, unspecified type [facility] Diagnosis Leg swelling- Primary Swelling of limb MARCOS (acute kidney injury) (HCC) Acute kidney failure, unspecified 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 Essential hypertension Unspecified essential hypertension 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 [facility] Diagnosis 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 Chronic combined systolic and diastolic heart failure MARCOS (acute kidney injury) (HCC) Acute kidney failure, unspecified Hydronephrosis, unspecified hydronephrosis type Edema, unspecified type Chronic combined systolic and diastolic CHF (congestive heart failure) (HCC) Chronic combined systolic and diastolic heart failure Diarrhea, unspecified type [facility] [place] [facility] Diagnosis MARCOS (acute kidney injury) (HCC)- Primary Acute kidney failure, unspecified [facility] [place] [facility]* Diagnosis Acute on chronic systolic CHF [...] kidney failure, unspecified [facility] [place] [facility] Diagnosis 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 [facility] [place] [facility] Diagnosis Elevated glucose- Primary Other abnormal glucose [facility] [place] [facility] Diagnosis MARCOS (acute kidney injury) (HCC)- Primary Acute kidney failure, unspecified Edema, unspecified type Hydronephrosis, unspecified hydronephrosis type Essential hypertension Unspecified essential hypertension 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 Gout with other specified manifestations [facility] [place] [facility] Diagnosis Chronic cough- Primary Cough LPRD (laryngopharyngeal reflux disease) Other diseases of larynx Leg swelling Swelling of limb Collagenous colitis Other and unspecified noninfectious gastroenteritis and colitis Personal history of COVID-19 Essential hypertension Unspecified essential hypertension 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 [facility] [place] [facility]* Diagnosis 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 Spinal stenosis, lumbar region, with neurogenic claudication Osteoarthritis of spine with radiculopathy, lumbar region [facility] [place] [facility] Diagnosis MARCOS (acute kidney injury) (HCC)- Primary Acute kidney failure, unspecified Hypomagnesemia Disorders of magnesium metabolism Edema, unspecified type Heart failure, unspecified HF chronicity, unspecified heart failure type (HCC) [facility] [place] [facility] Diagnosis 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- Primary Benign prostatic hyperplasia with urinary retention [facility] [place] [facility]* Diagnosis Stage 3b chronic kidney disease (HCC)- Primary Essential hypertension Unspecified essential hypertension 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 Hydronephrosis, unspecified hydronephrosis type Edema, unspecified type Diarrhea, unspecified type [facility] [place] [facility] Diagnosis 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 MARCOS (acute kidney injury) (HCC) Acute kidney failure, unspecified documented in this encounter [facility] note* Diagnosis MARCOS (acute kidney injury) (HCC)- Primary Acute kidney failure, unspecified documented in this encounter [facility] note* Diagnosis Hyperuricemia Other abnormal blood chemistry documented in this encounter [facility] note* Diagnosis Essential hypertension- Primary Unspecified essential hypertension Hyperuricemia Other abnormal blood chemistry Mixed hyperlipidemia Stage 3 chronic kidney disease, unspecified whether stage 3a or 3b CKD (HCC) documented in this encounter [facility] note* Diagnosis Acidosis- Primary documented in this encounter [facility] for referral (narrative)* Outpatient Procedure (Routine) - Pending Review Specialty Diagnoses / Procedures Referred By Omi t Referred To Contact [facility] [place] Diagnoses Bilateral carotid artery stenosis Procedures US CAROTID ARTERIES [facility] DUPLEX SCAN EXTRACRANIAL ART COMPL BI STUDY Sharmin Ramesh DO [address] [place] [address] [facility] [address] [address] Referral ID Status Reason Start Date Expiration Date Visits Requested Visits Authorized [id number] Pending Review Auto-Generat ed Referral 05/07/2022 05/07/2023 1 1 [facility] for referral (narrative)* Diagnostic Procedure Only (Routine) - Pending Review Specialty Diagnoses / Procedures Referred By Omi flores Referred To Contact US IMAGING Diagnoses MARCOS (acute kidney injury) (HCC) Hydronephrosis, unspecified hydronephrosis type Procedures US KIDNEY/BLADDER US RETROPERITONEAL REAL TIME W/[place] [address] [place] [address] Us Imaging Referral ID Status Reason Start Date Expiration Date Visits Requested Visits Authorized [id number] Pending Review Auto-Generat ed Referral 07/10/2022 08/09/2023 1 1 [facility] Summary Purpose Family History No Family History Records FoundNo Family History Records FoundNo Family History Records FoundNo Family History Records Found Advance Directives No Advanced Directives Records FoundDocuments on File Type Date Recorded Patient It 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 Executive 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 anation Advance Directive(s) 10/21/2021 2:03 PM Advance Directive(s) 11/29/2018 12:10 PM Documents on File Type Date Recorded Patient It Sales Executive Expl anation Advance Directive(s) 10/21/2021 2:03 PM Advance Directive(s) 11/29/2018 12:10 PM Documents on File Type Date Recorded Patient It 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 Executive 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 anation Advance Directive(s) 10/21/2021 2:03 PM Documents on File Type Date Recorded Patient It Sales Executive 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 anation Advance Directive(s) 10/21/2021 2:03 PM Reason for Referral Specialty Diagnoses / Procedures Referred By Omi flores Referred To Contact Urology Diagnoses 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 Procedures CONSULT TO UROLOGY OFFICE/OUTPATIENT NEW HIGH MDM 60-74 MINUTES 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, MINERAL ECONOMIST.COUNSELING SPECIALIST [address] [place] [address] Referral ID Status Reason Start Date Expiration Date Visits Requested Visits Authorized [id number] Authorized PCP Requested Referral 07/21/2022 07/21/2023 1 1 Additional Source Comments (unrecognized sect ion and content) No Status Records FoundNo Status Records FoundNo Status Records FoundNo Status Records Found INFORMATION SOURCE (unrecogn ized section and content) DATE CREATED AUTHOR AUTHOR'S ORGANIZ ATION 05/27/2022 [facility] DATE CREATED AUTHOR AUTHOR'S ORGANIZ ATION 12/09/2022 [facility] DATE CREATED AUTHOR AUTHOR'S ORGANIZ ATION 09/29/2023 [facility] Source Comments (unrecognize d section and content) In the event this informatio n is protected by the Federal Confidentiality of Alcohol and Drug Abuse Patient Records regulations: The Federal rules restrict any use of the information to criminally investigate or prosecute any alcohol or drug abuse patient.[facility] event this information is protected by the Federal Confidentiality of Alcohol and Drug Abuse Patient Records regulations: The Federal rules restrict any use of the information to criminally investigate or prosecute any alcohol or drug abuse patient.[facility] the event this information is protected by the Federal Confidentiality of Alcohol and Drug Abuse Patient Records regulations: The Federal rules restrict any use of the information to criminally investigate or prosecute any alcohol or drug abuse patient.[facility] the event this information is protected by the Federal Confidentiality of Alcohol and Drug Abuse Patient Records regulations: The Federal rules restrict any use of the information to criminally investigate or prosecute any alcohol or drug abuse patient.[facility] the event this information is protected by the Federal Confidentiality of Alcohol and Drug Abuse Patient Records regulations: The Federal rules restrict any use of the information to criminally investigate or prosecute any alcohol or drug abuse patient.[facility] the event this information is protected by the Federal Confidentiality of Alcohol and Drug Abuse Patient Records regulations: The Federal rules restrict any use of the information to criminally investigate or prosecute any alcohol or drug abuse patient.[facility] the event this information is protected by the Federal Confidentiality of Alcohol and Drug Abuse Patient Records regulations: The Federal rules restrict any use of the information to criminally investigate or prosecute any alcohol or drug abuse patient.[facility] the event this information is protected by the Federal Confidentiality of Alcohol and Drug Abuse Patient Records regulations: The Federal rules restrict any use of the information to criminally investigate or prosecute any alcohol or drug abuse patient.[facility] the event this information is protected by the Federal Confidentiality of Alcohol and Drug Abuse Patient Records regulations: The Federal rules restrict any use of the information to criminally investigate or prosecute any alcohol or drug abuse patient.[facility] the event this information is protected by the Federal Confidentiality of Alcohol and Drug Abuse Patient Records regulations: The Federal rules restrict any use of the information to criminally investigate or prosecute any alcohol or drug abuse patient.[facility] the event this information is protected by the Federal Confidentiality of Alcohol and Drug Abuse Patient Records regulations: The Federal rules restrict any use of the information to criminally investigate or prosecute any alcohol or drug abuse patient.[facility] the event this information is protected by the Federal Confidentiality of Alcohol and Drug Abuse Patient Records regulations: The Federal rules restrict any use of the information to criminally investigate or prosecute any alcohol or drug abuse patient.[facility] the event this information is protected by the Federal Confidentiality of Alcohol and Drug Abuse Patient Records regulations: The Federal rules restrict any use of the information to criminally investigate or prosecute any alcohol or drug abuse patient.[facility] the event this information is protected by the Federal Confidentiality of Alcohol and Drug Abuse Patient Records regulations: The Federal rules restrict any use of the information to criminally investigate or prosecute any alcohol or drug abuse patient.[facility] the event this information is protected by the Federal Confidentiality of Alcohol and Drug Abuse Patient Records regulations: The Federal rules restrict any use of the information to criminally investigate or prosecute any alcohol or drug abuse patient.[facility] the event this information is protected by the Federal Confidentiality of Alcohol and Drug Abuse Patient Records regulations: The Federal rules restrict any use of the information to criminally investigate or prosecute any alcohol or drug abuse patient.[facility] the event this information is protected by the Federal Confidentiality of Alcohol and Drug Abuse Patient Records regulations: The Federal rules restrict any use of the information to criminally investigate or prosecute any alcohol or drug abuse patient.[facility] the event this information is protected by the Federal Confidentiality of Alcohol and Drug Abuse Patient Records regulations: The Federal rules restrict any use of the information to criminally investigate or prosecute any alcohol or drug abuse patient.[facility] the event this information is protected by the Federal Confidentiality of Alcohol and Drug Abuse Patient Records regulations: The Federal rules restrict any use of the information to criminally investigate or prosecute any alcohol or drug abuse patient.[facility] the event this information is protected by the Federal Confidentiality of Alcohol and Drug Abuse Patient Records regulations: The Federal rules restrict any use of the information to criminally investigate or prosecute any alcohol or drug abuse patient.[facility] the event this information is protected by the Federal Confidentiality of Alcohol and Drug Abuse Patient Records regulations: The Federal rules restrict any use of the information to criminally investigate or prosecute any alcohol or drug abuse patient.[facility] the event this information is protected by the Federal Confidentiality of Alcohol and Drug Abuse Patient Records regulations: The Federal rules restrict any use of the information to criminally investigate or prosecute any alcohol or drug abuse patient.[facility] the event this information is protected by the Federal Confidentiality of Alcohol and Drug Abuse Patient Records regulations: The Federal rules restrict any use of the information to criminally investigate or prosecute any alcohol or drug abuse patient.[facility] the event this information is protected by the Federal Confidentiality of Alcohol and Drug Abuse Patient Records regulations: The Federal rules restrict any use of the information to criminally investigate or prosecute any alcohol or drug abuse patient.[facility] the event this information is protected by the Federal Confidentiality of Alcohol and Drug Abuse Patient Records regulations: The Federal rules restrict any use of the information to criminally investigate or prosecute any alcohol or drug abuse patient.[place] [facility] HospitalIn the event this information is protected by the Federal Confidentiality of Alcohol and Drug Abuse Patient Records regulations: The Federal rules restrict any use of the information to criminally investigate or prosecute any alcohol or drug abuse patient.[place] [facility] HospitalIn the event this information is protected by the Federal Confidentiality of Alcohol and Drug Abuse Patient Records regulations: The Federal rules restrict any use of the information to criminally investigate or prosecute any alcohol or drug abuse patient.[place] [facility] HospitalIn the event this information is protected by the Federal Confidentiality of Alcohol and Drug Abuse Patient Records regulations: The Federal rules restrict any use of the information to criminally investigate or prosecute any alcohol or drug abuse patient.[facility] HospitalIn the event this information is protected by the Federal Confidentiality of Alcohol and Drug Abuse Patient Records regulations: The Federal rules restrict any use of the information to criminally investigate or prosecute any alcohol or drug abuse patient.[facility] HospitalIn the event this information is protected by the Federal Confidentiality of Alcohol and Drug Abuse Patient Records regulations: The Federal rules restrict any use of the information to criminally investigate or prosecute any alcohol or drug abuse patient.[facility] HospitalIn the event this information is protected by the Federal Confidentiality of Alcohol and Drug Abuse Patient Records regulations: The Federal rules restrict any use of the information to criminally investigate or prosecute any alcohol or drug abuse patient.[facility] HospitalIn the event this information is protected by the Federal Confidentiality of Alcohol and Drug Abuse Patient Records regulations: The Federal rules restrict any use of the information to criminally investigate or prosecute any alcohol or drug abuse patient.[facility] HospitalIn the event this information is protected by the Federal Confidentiality of Alcohol and Drug Abuse Patient Records regulations: The Federal rules restrict any use of the information to criminally investigate or prosecute any alcohol or drug abuse patient.[facility] HospitalIn the event this information is protected by the Federal Confidentiality of Alcohol and Drug Abuse Patient Records regulations: The Federal rules restrict any use of the information to criminally investigate or prosecute any alcohol or drug abuse patient.[facility] HospitalIn the event this information is protected by the Federal Confidentiality of Alcohol and Drug Abuse Patient Records regulations: The Federal rules restrict any use of the information to criminally investigate or prosecute any alcohol or drug abuse patient.[facility] HospitalIn the event this information is protected by the Federal Confidentiality of Alcohol and Drug Abuse Patient Records regulations: The Federal rules restrict any use of the information to criminally investigate or prosecute any alcohol or drug abuse patient.[facility] HospitalIn the event this information is protected by the Federal Confidentiality of Alcohol and Drug Abuse Patient Records regulations: The Federal rules restrict any use of the information to criminally investigate or prosecute any alcohol or drug abuse patient.[facility] HospitalIn the event this information is protected by the Federal Confidentiality of Alcohol and Drug Abuse Patient Records regulations: The Federal rules restrict any use of the information to criminally investigate or prosecute any alcohol or drug abuse patient.[facility] HospitalIn the event this information is protected by the Federal Confidentiality of Alcohol and Drug Abuse Patient Records regulations: The Federal rules restrict any use of the information to criminally investigate or prosecute any alcohol or drug abuse patient.[facility] HospitalIn the event this information is protected by the Federal Confidentiality of Alcohol and Drug Abuse Patient Records regulations: The Federal rules restrict any use of the information to criminally investigate or prosecute any alcohol or drug abuse patient.[facility] HospitalIn the event this information is protected by the Federal Confidentiality of Alcohol and Drug Abuse Patient Records regulations: The Federal rules restrict any use of the information to criminally investigate or prosecute any alcohol or drug abuse patient.[facility] HospitalIn the event this information is protected by the Federal Confidentiality of Alcohol and Drug Abuse Patient Records regulations: The Federal rules restrict any use of the information to criminally investigate or prosecute any alcohol or drug abuse patient.[facility] HospitalIn the event this information is protected by the Federal Confidentiality of Alcohol and Drug Abuse Patient Records regulations: The Federal rules restrict any use of the information to criminally investigate or prosecute any alcohol or drug abuse patient.[facility] HospitalIn the event this information is protected by the Federal Confidentiality of Alcohol and Drug Abuse Patient Records regulations: The Federal rules restrict any use of the information to criminally investigate or prosecute any alcohol or drug abuse patient.[facility] HospitalIn the event this information is protected by the Federal Confidentiality of Alcohol and Drug Abuse Patient Records regulations: The Federal rules restrict any use of the information to criminally investigate or prosecute any alcohol or drug abuse patient.[facility] HospitalIn the event this information is protected by the Federal Confidentiality of Alcohol and Drug Abuse Patient Records regulations: The Federal rules restrict any use of the information to criminally investigate or prosecute any alcohol or drug abuse patient.[facility] HospitalIn the event this information is protected by the Federal Confidentiality of Alcohol and Drug Abuse Patient Records regulations: The Federal rules restrict any use of the information to criminally investigate or prosecute any alcohol or drug abuse patient.[facility] HospitalIn the event this information is protected by the Federal Confidentiality of Alcohol and Drug Abuse Patient Records regulations: The Federal rules restrict any use of the information to criminally investigate or prosecute any alcohol or drug abuse patient.[facility] HospitalIn the event this information is protected by the Federal Confidentiality of Alcohol and Drug Abuse Patient Records regulations: The Federal rules restrict any use of the information to criminally investigate or prosecute any alcohol or drug abuse patient.[facility] HospitalIn the event this information is protected by the Federal Confidentiality of Alcohol and Drug Abuse Patient Records regulations: The Federal rules restrict any use of the information to criminally investigate or prosecute any alcohol or drug abuse patient.[facility] HospitalIn the event this information is protected by the Federal Confidentiality of Alcohol and Drug Abuse Patient Records regulations: The Federal rules restrict any use of the information to criminally investigate or prosecute any alcohol or drug abuse patient.[facility] HospitalIn the event this information is protected by the Federal Confidentiality of Alcohol and Drug Abuse Patient Records regulations: The Federal rules restrict any use of the information to criminally investigate or prosecute any alcohol or drug abuse patient.[facility] HospitalIn the event this information is protected by the Federal Confidentiality of Alcohol and Drug Abuse Patient Records regulations: The Federal rules restrict any use of the information to criminally investigate or prosecute any alcohol or drug abuse patient.[facility] HospitalIn the event this information is protected by the Federal Confidentiality of Alcohol and Drug Abuse Patient Records regulations: The Federal rules restrict any use of the information to criminally investigate or prosecute any alcohol or drug abuse patient.[facility] HospitalIn the event this information is protected by the Federal Confidentiality of Alcohol and Drug Abuse Patient Records regulations: The Federal rules restrict any use of the information to criminally investigate or prosecute any alcohol or drug abuse patient.[facility] HospitalIn the event this information is protected by the Federal Confidentiality of Alcohol and Drug Abuse Patient Records regulations: The Federal rules restrict any use of the information to criminally investigate or prosecute any alcohol or drug abuse patient.[facility] HospitalIn the event this information is protected by the Federal Confidentiality of Alcohol and Drug Abuse Patient Records regulations: The Federal rules restrict any use of the information to criminally investigate or prosecute any alcohol or drug abuse patient.[facility] HospitalIn the event this information is protected by the Federal Confidentiality of Alcohol and Drug Abuse Patient Records regulations: The Federal rules restrict any use of the information to criminally investigate or prosecute any alcohol or drug abuse patient.[facility] HospitalIn the event this information is protected by the Federal Confidentiality of Alcohol and Drug Abuse Patient Records regulations: The Federal rules restrict any use of the information to criminally investigate or prosecute any alcohol or drug abuse patient.[facility] HospitalIn the event this information is protected by the Federal Confidentiality of Alcohol and Drug Abuse Patient Records regulations: The Federal rules restrict any use of the information to criminally investigate or prosecute any alcohol or drug abuse patient.[facility] HospitalIn the event this information is protected by the Federal Confidentiality of Alcohol and Drug Abuse Patient Records regulations: The Federal rules restrict any use of the information to criminally investigate or prosecute any alcohol or drug abuse patient.[facility] HospitalIn the event this information is protected by the Federal Confidentiality of Alcohol and Drug Abuse Patient Records regulations: The Federal rules restrict any use of the information to criminally investigate or prosecute any alcohol or drug abuse patient.[facility] HospitalIn the event this information is protected by the Federal Confidentiality of Alcohol and Drug Abuse Patient Records regulations: The Federal rules restrict any use of the information to criminally investigate or prosecute any alcohol or drug abuse patient.[facility] HospitalIn the event this information is protected by the Federal Confidentiality of Alcohol and Drug Abuse Patient Records regulations: The Federal rules restrict any use of the information to criminally investigate or prosecute any alcohol or drug abuse patient.[facility] Reason for Visit (unrecogniz ed section [...] MDM 60-74 MINUTES 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 APRN.[facility] [address] [place] [address] Referral ID Status Reason Start Date Expiration Date V isits Requested Visits Authorized [id number] Closed PCP Requested Referral 07/21/2022 07/21/2023 1 [...] Question Refill Reason Comments Recheck Reason Comments Horse Rider - Other Reason Onset Date Comments Community [...] anot her kidney doctor closer to home ([place], [place]) Reason Onset Date Comments Community Monitoring Outreach 08/06/2023 Care Teams (unrecognized sec tion and content) Sign Erector Relationship Specialty Start Date End Date Arnold Spencer MD [address] [place] [address] PCP - General Internal Medicine 09/16/21 Jarvis Mcgee, overhauler helperPack Worker Supervisor Internal Medicine 10/22/21 Sign Erector Relationship Specialty Start Date End Date Arnold Spencer MD [address] [facility] [place] [address] PCP - General Internal Medicine 09/16/21 Jarvis Mcgee, overhauler helperPack Worker Supervisor Internal Medicine 10/22/21 Sign Erector Relationship Specialty Start Date End Date Arnold Spencer MD [address] [facility] [place] [address] PCP - General Internal Medicine 09/16/21 Jarvis Mcgee, overhauler helperPack Worker Supervisor Internal Medicine 10/22/21 Sign Erector Relationship Specialty Start Date End Date Arnold Spencer MD [address] [facility] [place] [address] PCP - General Internal Medicine 09/16/21 Jarvis Mcgee, overhauler helperPack Worker Supervisor Internal Medicine 10/22/21 Sign Erector Relationship Specialty Start Date End Date Arnold Spencer MD [address] [facility] [place] [address] PCP - General Internal Medicine 09/16/21 Jarvis Mcgee, overhauler helperPack Worker Supervisor Internal Medicine 10/22/21 Sign Erector Relationship Specialty Start Date End Date Arnold Spencer MD [address] [facility] [place] [address] PCP - General Internal Medicine 09/16/21 Jarvis Mcgee, overhauler helperPack Worker Supervisor Internal Medicine 10/22/21 Sign Erector Relationship Specialty Start Date End Date Arnold Spencer MD [address] [facility] [place] [address] PCP - General Internal Medicine 09/16/21 Jarvis Mcgee, overhauler helperPack Worker Supervisor Internal Medicine 10/22/21 Sign Erector Relationship Specialty Start Date End Date Arnold Spencer MD [address] [facility] [place] [address] PCP - General Internal Medicine 09/16/21 Jarvis Mcgee, overhauler helperPack Worker Supervisor Internal Medicine 10/22/21 Sign Erector Relationship Specialty Start Date End Date Arnold Spencer MD [address] [facility] [place] [address] PCP - General Internal Medicine 09/16/21 Jarvis Mcgee, overhauler helperPack Worker Supervisor Internal Medicine 10/22/21 Sign Erector Relationship Specialty Start Date End Date Arnold Spencer MD [address] [facility] [place] [address] PCP - General Internal Medicine 09/16/21 Jarvis Mcgee, overhauler helperPack Worker Supervisor Internal Medicine 10/22/21 Sign Erector Relationship Specialty Start Date End Date Arnold Spencer MD [address] [facility] [place] [address] PCP - General Internal Medicine 09/16/21 Jarvis Mcgee, overhauler helperPack Worker Supervisor Internal Medicine 10/22/21 Sign Erector Relationship Specialty Start Date End Date Arnold Spencer MD [address] [facility] [place] [address] PCP - General Internal Medicine 09/16/21 Jarvis Mcgee, overhauler helperPack Worker Supervisor Internal Medicine 10/22/21 Sign Erector Relationship Specialty Start Date End Date Arnold Spencer MD [address] [facility] [place] [address] PCP - General Internal Medicine 09/16/21 Jarvis Mcgee, overhauler helperPack Worker Supervisor Internal Medicine 10/22/21 Sign Erector Relationship Specialty Start Date End Date Arnold Spencer MD [address] [facility] [place] [address] PCP - General Internal Medicine 09/16/21 Jarvis Mcgee, overhauler helperPack Worker Supervisor Internal Medicine 10/22/21 Sign Erector Relationship Specialty Start Date End Date Arnold Spencer MD [address] [facility] [place] [address] PCP - General Internal Medicine 09/16/21 Jarvis Mcgee, overhauler helperPack Worker Supervisor Internal Medicine 10/22/21 Sign Erector Relationship Specialty Start Date End Date Arnold Spencer MD [address] [facility] [place] [address] PCP - General Internal Medicine 09/16/21 Jarvis Mcgee, overhauler helperPack Worker Supervisor Internal Medicine 10/22/21 Sign Erector Relationship Specialty Start Date End Date Arnold Spencer MD [address] [facility] [place] [address] PCP - General Internal Medicine 09/16/21 Jarvis Mcgee, overhauler helperPack Worker Supervisor Internal Medicine 10/22/21 Sign Erector Relationship Specialty Start Date End Date Arnold Spencer MD [address] [facility] [place] [address] PCP - General Internal Medicine 09/16/21 Jacquelyn Conley, overhauler helperPack Worker Supervisor Internal Medicine 10/22/21 Sign Erector Relationship Specialty Start Date End Date Arnold Spencer MD [address] [facility] [place] [address] PCP - General Internal Medicine 09/16/21 Jacquelyn Conley, overhauler helperPack Worker Supervisor Internal Medicine 10/22/21 Sign Erector Relationship Specialty Start Date End Date Arnold Spencer MD [address] [facility] [place] [address] PCP - General Internal Medicine 09/16/21 Jacquelyn Conley, overhauler helperPack Worker Supervisor Internal Medicine 10/22/21 Sign Erector Relationship Specialty Start Date End Date Arnold Spencer MD [address] [facility] [place] [address] PCP - General Internal Medicine 09/16/21 Jacquelyn Conley, overhauler helperPack Worker Supervisor Internal Medicine 10/22/21 Sign Erector Relationship Specialty Start Date End Date Arnold Spencer MD [address] [facility] [place] [address] PCP - General Internal Medicine 09/16/21 Jacquelyn Conley, overhauler helperPack Worker Supervisor Internal Medicine 10/22/21 Sign Erector Relationship Specialty Start Date End Date Arnold Spencer MD [address] [facility] [place] [address] PCP - General Internal Medicine 09/16/21 Jacquelyn Conley, overhauler helperPack Worker Supervisor Internal Medicine 10/22/21 Sign Erector Relationship Specialty Start Date End Date Arnold Spencer MD [address] [facility] [place] [address] PCP - General Internal Medicine 09/16/21 Jacquelyn Conley, overhauler helperPack Worker Supervisor Internal Medicine 10/22/21 Sign Erector Relationship Specialty Start Date End Date Arnold Spencer MD [address] [facility] [place] [address] PCP - General Internal Medicine 09/16/21 Jacquelyn Conley, overhauler helperPack Worker Supervisor Internal Medicine 10/22/21 Sign Erector Relationship Specialty Start Date End Date Arnold Spencer MD [address] [facility] [place] [address] PCP - General Internal Medicine 09/16/21 Jacquelyn Conley, overhauler helperPack Worker Supervisor Internal Medicine 10/22/21 Sign Erector Relationship Specialty Start Date End Date Arnold Spencer MD [address] [place] [address] PCP - General Internal Medicine 09/16/21 Jacquelyn Conley RN Pack Worker Supervisor Internal Medicine 10/22/21 Sign Erector Relationship Specialty Start Date End Date Arnold Spencer MD [address] [place] [address] PCP - General Internal Medicine 09/16/21 Jacquelyn Conley RN Pack Worker Supervisor Internal Medicine 10/22/21 Sign Erector Relationship Specialty Start Date End Date Jacquelyn Conley RN Pack Worker Supervisor Internal Medicine 10/22/21 Sign Erector Relationship Specialty Start Date End Date Jacquelyn Conley RN Pack Worker Supervisor Internal Medicine 10/22/21 FOR RECORDS PERTAINING TO [...] BE BASED ON THE PRIMARY CLINICAL RECORDS. [facility] [employer] [facility]. provides no warranty or guarantee of the accuracy or completeness of information in this document.
--- NOTE | 2023-11-27 16:01 | PCM.HP.STD ---
HPI - General General Date of Admission: 11/27/23 Date of Service: 11/27/23 Chief Complaint: Shortness of breath that is started yesterday mainly dyspnea on exertion and chest pressure today HPI Narrative DARCY COVARRUBIAS, is a 88 M came to ED with shortness of breath mainly on exertion that started yesterday and got worse today. He when he walks to the bathroom is very short of breath/winded. He also got chest pressure around sternal brim which feels like pressure, localized in the morning. In ED when I saw him it says it is gone. He denies dizziness lightheadedness or syncope or near fall on walking. Patient also has bilateral leg swelling. Patient's further added that he has been recurrent admitted and falling 6 since August 2023. Number he had bilateral pneumonia and then on Christmastime he had a COVID. On November 17, 2023 he came to ED for abdominal pain and abdominal CT was done and then ultrasound which shows abnormal 8.1 mm intimal thickening of the gallbladder without stones but negative for sonographic Guerra sign, a calculus cholecystitis and patient was advised to follow-up surgery as an outpatient. Patient denies any fever or chills. Labs reviewed in the ED and shows high blood pressure 173/68, heart rate 84 pulse ox normal 94% on room air. Twelve-lead EKG chest x-ray and labs reviewed and discussed in assessment and plan. FOR[facility]LY [facility] Medical History Acute electrocardiogram changes Atherosclerosis of [place] coronary artery of [place] heart without angina pectoris Brain bleed Carotid artery disease Chest pain Chronic kidney disease (CKD) Chronic kidney disease (CKD) Congestive heart failure COVID-19 GERD (gastroesophageal reflux disease) Hypoxemia Ischemic cardiomyopathy Kidney disease, chronic, stage III (GFR 30-59 ml/min) Paroxysmal atrial fibrillation Pneumonia of both lower lobes Home Medications allopurinol 100 mg tablet 100 mg PO BID Gout 11/24/18 [History Last Taken 11/27/23] atorvastatin 40 mg tablet 40 mg PO QHS Cholesterol 11/24/18 [History Last Taken 11/26/23] pyridoxine (vitamin B6) 100 mg tablet 100 mg PO DAILY supplement 11/24/18 [History Last Taken 11/26/23] albuterol sulfate 90 mcg/actuation aerosol inhaler 2 puff inhalation Q4H PRN shortness of breath or wheezing #8.5 grams 12/25/20 [Rx Last Taken Unknown] ascorbate calcium (vitamin C) 500 mg tablet 500 mg PO DAILY supplement 12/25/20 [History Last Taken 11/17/23] mecobalamin (vitamin B12) 1,000 mcg disintegrating tablet,sublingual 1,000 mcg sublingual DAILY supplement 12/25/20 [History Last Taken 11/26/23] cholecalciferol (vitamin D3) 50 mcg (2,000 unit) tablet 50 mcg PO DAILY bone health #1 TAB 03/09/22 [Rx Last Taken 11/17/23] coenzyme Q10 100 mg tablet 100 mg PO DAILY general 09/24/22 [History Last Taken 11/16/23] torsemide 20 mg tablet 20 mg PO MOWEFR edema 11/19/22 [History Last Taken 11/27/23] potassium chloride 20 mEq tablet,extended release 20 meq PO MOWEFR Hypokalemia 06/30/23 [History Last Taken 11/27/23] nitroglycerin 0.4 mg sublingual tablet 0.4 mg sublingual Q5M PRN Cardiac/Chest Pain #30 tabs 09/02/23 [Rx Last Taken Unknown] apixaban 2.5 mg tablet 2.5 mg PO BID Blood thinner #180 tabs 09/30/23 [Rx Last Taken 11/27/23] Lactobacillus acidophilus 1 cap PO SUTUTHSA PROBIOTIC 11/17/23 [History Last Taken 11/16/23] carvedilol 25 mg tablet 25 mg PO BID blood pressure 11/17/23 [History Last Taken 11/27/23] magnesium oxide 400 mg (241.3 mg magnesium) tablet 400 mg PO DAILY SUPPLEMENT 11/17/23 [History Last Taken 11/27/23] sacubitril 49 mg-valsartan 51 mg tablet (Entresto) 1 tab PO BID BLOOD PRESSURE 11/17/23 [History Last Taken 11/27/23] sodium bicarbonate 650 mg tablet 650 mg PO DAILY SUPPLEMENT 11/17/23 [History Last Taken 11/26/23] Allergy/AdvReac Type Severity Reaction Status Date / Time No Known Allergies Allergy Verified 11/17/23 08:29 Family History Father CAD (coronary artery disease) Surgical History History of brain surgery History of coronary artery bypass graft x 3 History of craniotomy History of permanent cardiac pacemaker placement Social History household members: spouse Smoking Status: Never smoker alcohol intake: never substance use type: does not use caffeine: No ROS ROS Narrative Constitutional: Reports fatigue and weakness. No fever. HEENT: Reports systems reviewed and no addt'l complaints, except as documented Respiratory/Chest: As described in HPI. CVS: As described in HPI. History of CABG, pacemaker and cardiac murmur. Gastrointestinal: Denies coffee ground emesis, hematemesis or vomiting Genitourinary: Denies burning urination or new urinary tract symptoms Musculoskeletal: Bilateral leg swelling. Denies acute joint pain or limited range of motion. No acute injury Neurologic: Denies seizure-like symptoms. skin: No ulcer. No rash Endocrinology: Reports systems reviewed and no addt'l complaints, except as documented Hematologic/Lymphatic: Reports systems reviewed and no addt'l complaints, except as documented Rest 14 ROS are negative except as mentioned in HPI Vital Signs Vital Signs Vital Signs: 11/27/23 12:59 11/27/23 13:32 11/27/23 13:34 Temperature 97.6 F L Temperature Source Temporal Pulse Rate 84 Respiratory Rate 16 Respiratory Effort Normal Non-Labored Blood Pressure 173/68 H Blood Pressure Mean 103 Pulse Ox 94 95 Oxygen Delivery Method Room Air Room Air 11/27/23 15:00 11/27/23 15:44 Temperature 97.8 F Temperature Source Pulse Rate 67 Respiratory Rate 12 23 H Respiratory Effort Blood Pressure 131/67 H Blood Pressure Mean 88 Pulse Ox 92 93 Oxygen Delivery Method Room Air Weight Weight: 156 lb 9.6 oz Body Mass Index (BMI) 22.4 Physical Exam Narrative General: Alert, Oriented x3, Cooperative HEENT: Atraumatic, PERRLA, EOMI, Normocephalic Oral: No Gingival or Mucosal Lesions/ Ulcerations Neck: Supple, No JVD, Negative Carotid Bruits Chest wall/Lungs: Air entry diminished Linda right posterior half of lung. Stony dullness present below right fifth ICS posteriorly. Right moderate pleural effusion. No crepitation/rhonchi Cardiovascular: Paced rhythm, status post CABG. S1-S2 normal. Systolic murmur present LLSB and cardiac apex. Abdomen: Bowel Sounds Present, Soft, Non Tender, Non-Distended : No dysuria. No renal angle tenderness. No suprapubic tenderness. Extremities: Bilateral 3+ pitting edema, Capillary Refill Less than 3 Seconds Skin: No rashes, No breakdown Musculoskeletal: No Tenderness to Palpation of Joints or Extremities. Muscle strength 4+/5 at major joints of lower extremities Neurological: Cranial nerves II-XII grossly intact, DTR 2+/4. No acute focal neurological deficit. Psych/Mental Status: Flat affect. Results Lab / Micro Data 11/27/23 13:30 11/27/23 13:30 Labs: Laboratory Results - last 24 hr 11/27/23 13:30: WBC 4.7, RBC 2.84 L, Hgb 9.5 L, Hct 29.4 L, MCV 103.5 H, MCH 33.5 H, MCHC 32.3, RDW Std Deviation 63.3 H, RDW Coeff of Vanesa 16.8 H, Plt Count 142 L, MPV 10.2, Immature Gran % (Auto) 0.200, Neut % (Auto) 73.9 H, Lymph % (Auto) 15.1 L, [place] % (Auto) 6.4, Eos % (Auto) 4.0, Baso % (Auto) 0.4, Absolute Neuts (auto) 3.5, Absolute Lymphs (auto) 0.71 L, Nucleated RBC % 0, Sodium 143, Potassium 3.2 L, Chloride 116 H, Carbon Dioxide 20.0 L, Anion Gap 7, BUN 37 H, Creatinine 2.15 H, Estim Creat Clear Calc 24.32, Est GFR (MDRD) Af Amer 38 L, Est GFR (MDRD) Non-Af 31 L, BUN/Creatinine Ratio 17.2, Glucose 116 H, Calcium 9.1, Troponin I High Sens 47 Imaging Radiology Impression Chest X-Ray 11/27/23 13:38 IMPRESSION: Worsening bilateral pneumonia or edema and pleural effusions. Electronically Signed: Deon Palmer MD at 15:06 EST , Assessment & Plan Assessment/Plan (1) Acute on chronic HFrEF (heart failure with reduced ejection fraction): PLAN: Plan This 38-year-old gentleman is being admitted for increased shortness of breath mainly exertional for 2 days along with increasing lower extremity edema and upper chest pressure and chest x-ray finding consistent with CHF exacerbation. 1. Acute on chronic HFrEF, exact precipitating factor unclear with history of CAD status post CABG, valvular heart disease: Patient is being admitted in PCU. Twelve-lead EKG shows ventricular paced rhythm, occasional supraventricular complexes and PVCs. Chest x-ray individually reviewed and shows right moderate pleural effusion and lobar infiltrate. Left lung base is also not clear possible infiltrate/atelectasis or effusion. Patient recently had echo in October 2023 reported EF 20%, severe global LV hypokinesis. Normal systolic RV function 1-2+ eccentric MR, 2+ TR, PASP 60 mmHg moderate pulmonary hypertension. Compared to previous study, LV systolic function is same. First isolated troponin negative. Cycle cardiac enzymes. Started on Lasix 40 mg IV twice daily. Low-dose spironolactone 12.5 mg daily from tomorrow AM. BNP more than 5000. Heart failure core measures including intake and output, fluid restriction less than 1500 mL, daily weight monitoring, kidney and electrolytes monitoring. 2. Possible right-sided pleural effusion from CHF exacerbation: Ultrasound-guided thoracocentesis ordered for Wednesday. Patient also had bilateral pneumonia and then COVID-19 infection August and September 2023. 3. CKD stage IV with hypokalemia: Patient given potassium in ED for hypokalemia K3.2. Anion gap normal, bicarb 20, suggestive of possible normal anion gap metabolic acidosis. Patient is on baseline creatinine 2.15, creatinine ranges from 1.9-2.4 recently. Monitor BMP daily. Serum magnesium and phosphorus ordered. 4. Paroxysmal atrial fibrillation : Patient on Coreg and Eliquis. 5. 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 Patient H&H around 9.02/2010% on baseline for last for 5 visits. Platelet count 142,000. Patient is doing well. 6. Chronic gout: on allopurinol 7. GERD; on PPI 8. Degenerative osteoarthritis: PT and OT ordered DVT prophylaxis: on eliquis Living will/advanced directive/end of life care: Patient does have living will or advanced directive. His is power of attorney lawyer for health sitting by the bedside in the ER. After discussion of benefits/risks procedures involved with full code, DNR CC arrest and DNR CC, the patient and her opted for full code. Patient does want artificial life support including intubation, tube feed, ventilator and/chest compression, central venous catheter, vasopressor and DC shock if needed Total time spent in [id number] encounter in discussion of advanced directive 17 minutes. Laboratory Results 11/27/23 13:30: WBC 4.7, RBC 2.84 L, Hgb 9.5 L, Hct 29.4 L, MCV 103.5 H, MCH 33.5 H, MCHC 32.3, RDW Std Deviation 63.3 H, RDW Coeff of Vanesa 16.8 H, Plt Count 142 L, MPV 10.2, Immature Gran % (Auto) 0.200, Neut % (Auto) 73.9 H, Lymph % (Auto) 15.1 L, [place] % (Auto) 6.4, Eos % (Auto) 4.0, Baso % (Auto) 0.4, Absolute Neuts (auto) 3.5, Absolute Lymphs (auto) 0.71 L, Nucleated RBC % 0, Sodium 143, Potassium 3.2 L, Chloride 116 H, Carbon Dioxide 20.0 L, Anion Gap 7, BUN 37 H, Creatinine 2.15 H, Estim Creat Clear Calc 24.32, Est GFR (MDRD) Af Amer 38 L, Est GFR (MDRD) Non-Af 31 L, BUN/Creatinine Ratio 17.2, Glucose 116 H, Calcium 9.1, Phosphorus 3.3, Troponin I High Sens 47, B-Natriuretic Peptide > 5000.0 H 11/27/23 15:40: Magnesium Pending, Troponin I High Sens Pending Clinical Impression(s) from Imaging Studies Chest X-Ray 11/27/23 13:38 IMPRESSION: Worsening bilateral pneumonia or edema and pleural effusions. Electronically Signed: Deon Palmer MD at 15:06 EST , Charges/Coding Visit Charges Inpatient E&M: 73703 Init Hosp L3 Procedures Hospitalists Procedures: 07066 Advncd Care Plan 30 Min
[2023-11-27 16:04] LABS: BNP,B-Type NATRIURETIC PEPTIDE > 5000.0 pg/mL (0-100)
[2023-11-27 16:15] LABS: Phosphorus 3.3 mg/dL (2.5-4.9)
[2023-11-27 16:17] LABS: Magnesium 1.7 mg/dL (1.6-2.6); Troponin-I HS 47 pg/mL (3.0-78.0)
[2023-11-27] MEDS: Allopurinol 100 MG Tablet PO (17:40)
[2023-11-27] MEDS: Furosemide 40 MG/4 ML Vial IV (17:41)
[2023-11-27] MEDS: Spironolactone 25 MG Tablet 12.5 MG PO (17:50)
[2023-11-27 18:54] LABS: Troponin-I HS 40 pg/mL (3.0-78.0)
[2023-11-27] MEDS: APIXABAN 2.5 MG TABLET (WCH) PO (21:10)
[2023-11-27] MEDS: Carvedilol 25 MG Tablet PO (21:10)
[2023-11-27] MEDS: Atorvastatin Calcium 40 MG Tablet PO (21:12)
[2023-11-27] MEDS: SACUBITRIL/VALSARTAN 49-51 MG TABLET 1 EACH PO (21:49)
[2023-11-28 01:49] VITALS: BMI 21.5
[2023-11-28 03:08] VITALS: BP 127/79; PULSE 88; RESP 18; TEMP 36.9; O2SAT 92
[2023-11-28 03:40] VITALS: PULSE 75; RESP 18
[2023-11-28] MEDS: Ipratropium/Albuterol Sulfate 3 ML AMPUL.NEB INHALATION ×2 (03:48→08:43)
[2023-11-28 04:00] VITALS: O2SAT 96
[2023-11-28 06:00] VITALS: BMI 21.9
[2023-11-28 06:46] LABS: Absolute Lymphocyte Count 0.83 X10^3/uL (0.83-4.51); Absolute Neutrophil Count 4.7 X10^3/uL (2.0-7.7); Basophil# 0.01 X10^3/uL; Basophil% 0.2 % (0-1); Eosinophil# 0.03 X10^3/uL; Eosinophils% 0.5 % (0-5); Hematocrit 27.6 % (40-54); Hemoglobin 8.9 g/dL (13.0-16.5); Lymphocyte # 0.83 X10^3/ul (0.83-4.51); Mean Corp Hgb Conc 32.2 g/dL (32-36); Mean Corpuscular Hgb 33.1 pg (27.0-32.0); Mean Corpuscular Volume 102.6 fL (80-94); Mean Platelet Vol. 10.3 fl (6.2-12.0); Monocyte# 0.39 X10^3/uL; Monocyte% 6.6 % (0-10); NRBC Flagged by Analyzer 0 % (0-5); Neutrophil # 4.67 X10^3/uL (2.7-7.7); Neutrophil % 78.5 % (47-70); Platelet Count 140 K/mm3 (150-450); RBC Distribution Width CV 16.9 % (11.6-14.6); RBC Distribution Width SD 62.4 fl (35.1-43.9); Red Blood Count 2.69 M/mm3 (4.6-6.2); White Blood Count 5.9 K/mm3 (4.4-11.0)
--- NOTE | 2023-11-28 07:58 | PN.HOSP_ITS ---
Reason for Visit Reason for Visit: Diagnoses Acute on chronic systolic (congestive) heart failure (11/27/23) Subjective Subjective Breathing better. Still with lower extremity edema. Objective Data Objective Data Vital Signs: Vital Signs Temp Pulse Resp BP Pulse Ox O2 Del Method O2 Flow Rate 36.9 C 75 18 127/79 H 96 Nasal Cannula 2 11/28/23 03:08 11/28/23 03:40 11/28/23 03:40 11/28/23 03:08 11/28/23 04:00 11/28/23 04:00 11/28/23 04:00 Oxygen Flow Rate (L/min) 2 Oxygen Delivery Method Nasal Cannula Weight: 68.1 kg Body Mass Index (BMI) 21.5 Intake & Output: Intake and Output for Last 24 Hours 11/26/23 11/27/23 11/28/23 23:59 23:59 23:59 Intake Total 320 / 320 120 / 120 Output Total 1300 / 1300 500 / 500 Balance -980 / -980 -380 / -380 Lab / Micro Data 11/28/23 05:51 11/28/23 05:51 Labs: Laboratory Results - last 24 hr 11/27/23 13:30: WBC 4.7, RBC 2.84 L, Hgb 9.5 L, Hct 29.4 L, MCV 103.5 H, MCH 33.5 H, MCHC 32.3, RDW Std Deviation 63.3 H, RDW Coeff of Vanesa 16.8 H, Plt Count 142 L, MPV 10.2, Immature Gran % (Auto) 0.200, Neut % (Auto) 73.9 H, Lymph % (Auto) 15.1 L, [place] % (Auto) 6.4, Eos % (Auto) 4.0, Baso % (Auto) 0.4, Absolute Neuts (auto) 3.5, Absolute Lymphs (auto) 0.71 L, Nucleated RBC % 0, Sodium 143, Potassium 3.2 L, Chloride 116 H, Carbon Dioxide 20.0 L, Anion Gap 7, BUN 37 H, Creatinine 2.15 H, Estim Creat Clear Calc 24.32, Est GFR (MDRD) Af Amer 38 L, Est GFR (MDRD) Non-Af 31 L, BUN/Creatinine Ratio 17.2, Glucose 116 H, Calcium 9.1, Phosphorus 3.3, Troponin I High Sens 47, B-Natriuretic Peptide > 5000.0 H 11/27/23 15:40: Magnesium 1.7, Troponin I High Sens 47 11/27/23 18:33: Troponin I High Sens 40 11/28/23 05:51: WBC 5.9, RBC 2.69 L, Hgb 8.9 L, Hct 27.6 L, MCV 102.6 H, MCH 33.1 H, MCHC 32.2, RDW Std Deviation 62.4 H, RDW Coeff of Vanesa 16.9 H, Plt Count 140 L, MPV 10.3, Immature Gran % (Auto) 0.200, Neut % (Auto) 78.5 H, Lymph % (Auto) 14.0 L, [place] % (Auto) 6.6, Eos % (Auto) 0.5, Baso % (Auto) 0.2, Absolute Neuts (auto) 4.7, Absolute Lymphs (auto) 0.83, Nucleated RBC % 0 Radiography Diagnostic Testing: Radiology Impression Chest X-Ray 11/27/23 13:38 IMPRESSION: Worsening bilateral pneumonia or edema and pleural effusions. Electronically Signed: Deon Palmer MD at 15:06 EST , Physical Exam Const alert and no apparent distress HEENT head/scalp atraumatic and moist oral mucous membranes Resp normal respiratory effort, no retractions and no use of accessory muscles Cardio regular rate, regular rhythm, S1 normal heart sound and S2 normal heart sound GI normal to inspection, nondistended, normoactive bowel sounds Extremity General Extremity: edema bilateral lower extremity Details: moderate Neuro Sensorium / Orientation: awake and alert Psych affect normal Assessment & Plan Assessment/Plan (1) Acute on chronic HFrEF (heart failure with reduced ejection fraction): PLAN: Plan Acute on chronic HFrEF * Patient recently had echo in October 2023 reported EF 20%, severe global LV hypokinesis. Normal systolic RV function 1-2+ eccentric MR, 2+ TR, PASP 60 mmHg moderate pulmonary hypertension. Compared to previous study, LV systolic function is same. First isolated troponin negative. Cycle cardiac enzymes. * Started on Lasix 40 mg IV twice daily. Low-dose spironolactone 12.5 mg daily * continue sacubitril/valsartan, carvedilol Right-sided pleural effusion from CHF exacerbation: * Previously seen on CXR * Ultrasound-guided thoracocentesis ordered for Wednesday. It is unclear if there will be enough fluid to safely perform a thoracentesis. This was expressed to the patient. Chronic conditions: * CKD stage IV Monitor BMP daily particularly while on furosemide. * Paroxysmal atrial fibrillation : Patient on Coreg. Hold apixaban for thoracentesis, resume afterwards. 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 Patient H&H around 9.02/2010% on baseline for last for 5 visits. Platelet count 142,000. Patient is doing well. * Chronic gout: on allopurinol * GERD; on PPI * Degenerative osteoarthritis: PT and OT ordered DVT prophylaxis: SCDs while off apixaban. Charges/Coding Visit Charges Inpatient E&M: 49728 Subs Hosp L2
[2023-11-28 08:01] LABS: Anion Gap 8 (5-15); BUN 38 mg/dL (7-18); BUN/Creat Ratio 18.3 RATIO (10-20); Calcium,Total 9.5 mg/dL (8.5-10.1); Chloride 118 mmol/L (98-107); Cholesterol 81 mg/dL (200); Creatinine, Serum 2.08 mg/dL (0.70-1.30); EST Glomerular Filtration Rate 32 mL/min (>60); Est Glom Filt Rate - Afr Amer 39 mL/min (>60); Glucose 118 mg/dL (74-106); High Density Lipoprotein 30 mg/dL; Potassium 3.5 mmol/L (3.5-5.1); Sodium Level 146 mmol/L (136-145); Thyroid Stim Hormone (TSH) 2.79 uIU/mL (0.358-3.74); Triglycerides 60 mg/dL; Very Low Density Lipoprotein 12 mg/dL (5-40)
[2023-11-28 08:04] VITALS: BP 143/80; PULSE 89; RESP 16; TEMP 37; O2SAT 98
[2023-11-28] MEDS: Furosemide 40 MG/4 ML Vial IV ×2 (08:07→17:01)
[2023-11-28] MEDS: SACUBITRIL/VALSARTAN 49-51 MG TABLET 1 EACH PO ×2 (08:07→21:31)
[2023-11-28] MEDS: Carvedilol 25 MG Tablet PO ×2 (08:08→21:31)
[2023-11-28] MEDS: Cholecalciferol (VIT D3) 25 MCG TABLET (1,000 UNITS) 50 MCG PO (08:08)
[2023-11-28] MEDS: Cyanocobalamin 500 MCG Tablet 1000 MCG PO (08:09)
[2023-11-28] MEDS: Ascorbic Acid 500 MG Tablet PO (08:09)
[2023-11-28] MEDS: Magnesium Chloride 64 MG Delay Rel.Tablet 128 MG PO (08:09)
[2023-11-28] MEDS: Sodium Bicarbonate 650 MG Tablet PO (08:09)
[2023-11-28] MEDS: Pyridoxine HCl 100 MG Tablet PO (08:11)
[2023-11-28] MEDS: Allopurinol 100 MG Tablet PO ×2 (08:11→17:02)
[2023-11-28] MEDS: Spironolactone 25 MG Tablet 12.5 MG PO (08:18)
[2023-11-28 08:43] VITALS: PULSE 89; RESP 16; O2SAT 97
--- NOTE | 2023-11-28 08:53 | CPS ---
PT REFUSED TO DO SMI AND PEP AT THIS TIME.
[2023-11-28 21:28] VITALS: BP 124/67; PULSE 67; RESP 18; TEMP 36.8; O2SAT 97
[2023-11-28] MEDS: Atorvastatin Calcium 40 MG Tablet PO (21:31)
[2023-11-29] VITALS (9 sets, daily range): BP systolic 112–132; BP diastolic 55–77; PULSE 58–69; RESP 16–18; TEMP 36.6–36.7; O2SAT 95–100; BMI 21.2
--- NOTE | 2023-11-29 | FLU_PTH ---
PATHOLOGY RESULTS PATIENT: DARCY COVARRUBIAS LOC: [facility] U#:[id number] AGE/SX: 88/M ROOM: [facility] RE11/27/[address]: Dr. Sanjeev Sandhu DO : 1935 BED: 1 DIS: 11/30/2023 SPEC #: [id number] RECD: 11/29/23 13:40 STATUS: VLADIMIR REQ #: [id number] SANNA: 11/29/23 00:[address]: Sanjeev Sandhu DEPT: CYTOLOGY RECD BY: Parth Fisher ENTERED: 11/30/23 07:22 SP TYPE: Fluid OTHR DR: MD Dr. Gómez Espinoza DO Dr. Prakash Chand, MD Dr. Theron Andrus, DO Tissues: THORACIC FLUID Procedures: Special Stain Group II Surgery Specimen Level IV Cytospin Fluid HEADER OPERATION: Ultrasound-guided thoracentesis, right PRE-OP DIAGNOSIS: Right pleural effusion TISSUE SUBMITTED: Thoracentesis fluid for cytology DIAGNOSIS CYTOLOGY Thoracentesis fluid for cytology (cytospin and cell block): Negative for malignant cells. AM:brad 12/01/2023 CYTOLOGY STUDY Slides are reviewed. CYTOLOGY GROSS Received is 85 ml of yellow cloudy fluid labeled with the patient's name and and designated per the requisition as thoracentesis. Submitted for cytology preparation including cell block. / brad 11/30/2023 TC:5 CPT: 85583, 15166
[2023-11-29 06:24] LABS: Absolute Lymphocyte Count 0.96 X10^3/uL (0.83-4.51); Absolute Neutrophil Count 3.8 X10^3/uL (2.0-7.7); Basophil# 0.03 X10^3/uL; Basophil% 0.6 % (0-1); Eosinophils% 3.7 % (0-5); Hematocrit 25.4 % (40-54); Hemoglobin 8.3 g/dL (13.0-16.5); Lymphocyte # 0.96 X10^3/ul (0.83-4.51); Lymphocyte % 17.7 % (19-41); Mean Corp Hgb Conc 32.7 g/dL (32-36); Mean Corpuscular Hgb 34.2 pg (27.0-32.0); Mean Corpuscular Volume 104.5 fL (80-94); Mean Platelet Vol. 11.4 fl (6.2-12.0); Monocyte# 0.45 X10^3/uL; Monocyte% 8.3 % (0-10); NRBC Flagged by Analyzer 0 % (0-5); Neutrophil # 3.75 X10^3/uL (2.7-7.7); Platelet Count 140 K/mm3 (150-450); RBC Distribution Width CV 16.9 % (11.6-14.6); Red Blood Count 2.43 M/mm3 (4.6-6.2); White Blood Count 5.4 K/mm3 (4.4-11.0)
[2023-11-29 06:55] LABS: Anion Gap 4 (5-15); BUN 39 mg/dL (7-18); Chloride 118 mmol/L (98-107); Creatinine, Serum 2.17 mg/dL (0.70-1.30); EST Glomerular Filtration Rate 31 mL/min (>60); Est Glom Filt Rate - Afr Amer 37 mL/min (>60); Estimated Creatinine Clearance 22.73 ml/min; Glucose 131 mg/dL (74-106); LDH 186 U/L (87-241); Potassium 2.9 mmol/L (3.5-5.1); Protein, Total 6.1 g/dL (6.4-8.2); Sodium Level 147 mmol/L (136-145)
[2023-11-29 08:27] LABS: International Normalized Ratio 1.6; Partial Thromboplast Time 45.2 Seconds (24.1-36.2); Prothrombin Time (Protime)PT. 19.2 SECONDS (11.7-14.9)
[2023-11-29] MEDS: Potassium Chloride Oral Tablet 20 MEQ 60 MEQ PO (09:29)
[2023-11-29] MEDS: Pyridoxine HCl 100 MG Tablet PO (09:29)
[2023-11-29] MEDS: Magnesium Chloride 64 MG Delay Rel.Tablet 128 MG PO (09:30)
[2023-11-29] MEDS: Spironolactone 25 MG Tablet 12.5 MG PO (09:30)
[2023-11-29] MEDS: Ascorbic Acid 500 MG Tablet PO (09:31)
[2023-11-29] MEDS: Carvedilol 25 MG Tablet PO ×2 (09:31→20:48)
[2023-11-29] MEDS: Cholecalciferol (VIT D3) 25 MCG TABLET (1,000 UNITS) 50 MCG PO (09:32)
[2023-11-29] MEDS: Allopurinol 100 MG Tablet PO ×2 (09:32→16:38)
[2023-11-29] MEDS: Furosemide 40 MG/4 ML Vial IV ×2 (09:32→16:39)
[2023-11-29] MEDS: Sodium Bicarbonate 650 MG Tablet PO (09:33)
[2023-11-29] MEDS: SACUBITRIL/VALSARTAN 49-51 MG TABLET 1 EACH PO ×2 (09:33→20:48)
[2023-11-29] MEDS: 0.9% Saline Lock 10 ML Syringe IV ×2 (09:33→16:38)
[2023-11-29] MEDS: Cyanocobalamin 500 MCG Tablet 1000 MCG PO (09:33)
--- NOTE | 2023-11-29 09:55 | CASEMGMT ---
Addendum entered by Johanna Santiago 11/29/23 11:43: Received notification from [facility], they will see pt either Wednesday or for care. Original Note: ANA CRISTINA MURPHY Assessment: Face to Face with pt for initial transition planning/care coordination assessment. RN KATHERINE introduced self and role at [facility], pt voices understanding and consents to assessment. Pt is A&O x4 and answers all questions appropriately at this time. Pt sitting up in chair with oxygen on in no distress. Pt nurse and pt at bedside. Care providers, pharmacy, and demographics verified/updated. Admitting Dx:CHF Exacerbation PCP:Lesly Specialists:Wes, cardio; Inocencia, pulm; Russell nephro [facility]erred [facility] Benef[facility]: no LNOK:Deirdre Brown, Living Arrangements: Pt lives with in a single story home with 2 steps to enter with a rail. Pt reports he is I in ADL's prior to this hospitalization. does meals, laundry and gets groceries. Pt denies concerns at home. Transportation: Pt drives self and denies concerns with transportation. mostly transports pt to medical appts. DME:cane, [employer], built in shower seat HHC/SNF:Pt has had [facility] multiple times in the past. Pt denies SNF stays. Pt states no concerns with going home at time of dc. Discussed having SN for disease education and monitoring, pt agreable to this and thinks it is a good idea. Pt denies need for therapy currently. states he has a list of exercises that was left by the therapist in the past and he does them everyday. Pt states he will notify the RN KATHERINE if he changes his mind about therapy. Pt and state they would like [facility] only . They both deny need for list of other options. Pt states no further concerns/needs. CM to follow. Advised pt to ask CM if any further question/concerns/needs arise, voices understanding. Pt Goal:Home with [facility] Plan:Home with [facility] SN TC to Dorothy at [facility], referral made, will await acceptance.
[2023-11-29] MEDS: Lidocaine 2% (20 ml mdv) 20 ML Vial INFILT ×2 (13:23→16:33)
--- NOTE | 2023-11-29 13:30 | RAD_ITS ---
STUDY: X-RAY CHEST REASON FOR EXAM: Male, 88 years old. Post thora TECHNIQUE: AP inspiration and expiration views. COMPARISON: Comparison is made with prior study dated November 27, 2023. FINDINGS: The patient is status post right thoracentesis. No evidence of pneumothorax. RAD/Chest Insp/Exp 2 View IMPRESSION: Status post right thoracentesis. No evidence of pneumothorax. Electronically Signed: Michael Soriano MD at 14:34 EST ,
--- NOTE | 2023-11-29 13:40 | PCM.OP.PRO ---
Procedure Report Date of Procedure: 11/29/23 Assessment & Plan Assessment/Plan (1) Pleural effusion, right: PLAN: PROCEDURE: Ultrasound Guided Thoracentesis ORDERING PROVIDER: Dr. Renteria INDICATION: Male, 88 years old. Right pleural effusion. PROVIDER: HERMILA Louis PROCEDURE: The risks, benefits, and alternatives to the procedure were explained to the patient. The specific risks of bleeding, infection, and pneumothorax requiring chest tube insertion were discussed and accepted. Written informed consent was obtained. The patient was placed in the sitting, upright position. Ultrasonographic evaluation of the bilateral lower pleural spaces was carried out. An adequate pocket was identified in the right lower pleural space.The overlying skin was prepped and draped in sterile fashion. 2% lidocaine was administered subcutaneously for local anesthesia. Under ultrasound guidance, a 5-Uzbek thoracentesis needle/catheter system was advanced into the right posterior lower pleural fluid collection. 710 ml of clear yellow colored fluid was drained. 100 mL of this fluid was collected and sent to the lab for analysis. The catheter was removed, and a sterile dressing was applied. The patient tolerated the procedure well. A chest x-ray was ordered. IMPRESSION: Successful ultrasound-guided thoracentesis of right pleural effusion. Procedures Radiology Radiology US Procedures: [id number] Thoracentesis
[2023-11-29 15:04] LABS: Cytology, Body Fluid / CSF SEE PATHOLOGY REPORT
--- NOTE | 2023-11-29 15:22 | PCM.PN.HOSP ---
Reason for Visit Reason for Visit: Diagnoses Acute on chronic systolic (congestive) heart failure (11/27/23) Pleural effusion, not elsewhere classified (11/27/23) Subjective Subjective No acute events overnight. Patient seen at bedside this morning, present. Patient sitting comfortably in bedside chair, conversing normally, no acute distress. Breathing comfortably on 2L NC, no increased work of breathing noted. Patient states he has continued to have good urine output with the IV lasix. He denies any shortness of breath at rest but does continue to have some shortness of breath with exertion. He generally continues to feel more fatigued than his baseline. His states that he has been more fatigued at home as well over the past few months, and he appears to be close to this new baseline now. Patient otherwise denies any acute pain or discomfort. No other acute concerns at this time. Objective Data Objective Data Vital Signs: Vital Signs Temp Pulse Resp BP Pulse Ox O2 Del Method O2 Flow Rate 97.9 F 64 18 119/55 L 97 Room Air 2 11/29/23 09:30 11/29/23 13:37 11/29/23 13:37 11/29/23 13:30 11/29/23 12:45 11/29/23 13:37 11/29/23 09:57 Oxygen Flow Rate (L/min) 2 Oxygen Delivery Method Room Air Weight: 67 kg Body Mass Index (BMI) 21.2 Intake & Output: Intake and Output for Last 24 Hours 11/27/23 11/28/23 11/29/23 23:59 23:59 23:59 Intake Total 320 / 320 830 / 830 0 / 0 Output Total 1300 / 1300 2800 / 2800 1460 / 1460 Balance -980 / -980 -1969 / -1970 -1460 / -1460 Lab / Micro Data 11/29/23 04:21 11/29/23 04:21 Labs: Laboratory Results - last 24 hr 11/29/23 04:21: WBC 5.4, RBC 2.43 L, Hgb 8.3 L, Hct 25.4 L, MCV 104.5 H, MCH 34.2 H, MCHC 32.7, RDW Std Deviation 63.0 H, RDW Coeff of Vanesa 16.9 H, Plt Count 140 L, MPV 11.4, Immature Gran % (Auto) 0.700, Neut % (Auto) 69.0, Lymph % (Auto) 17.7 L, Edgar % (Auto) 8.3, Eos % (Auto) 3.7, Baso % (Auto) 0.6, Absolute Neuts (auto) 3.8, Absolute Lymphs (auto) 0.96, Nucleated RBC % 0, PT 19.2 H, INR 1.6, APTT 45.2 H, Sodium 147 H, Potassium 2.9 L, Chloride 118 H, Carbon Dioxide 25.0, Anion Gap 4 L, BUN 39 H, Creatinine 2.17 H, Estim Creat Clear Calc 22.73, Est GFR (MDRD) Af Amer 37 L, Est GFR (MDRD) Non-Af 31 L, BUN/Creatinine Ratio 18.0, Glucose 131 H, Calcium 9.0, Lactate Dehydrogenase 186, Total Protein 6.1 L, Globulin 3.0, Albumin/Globulin Ratio 1.0 Micro: Microbiology 11/28/23 14:15 Stool Clostridioides difficile (PCR) - Final Radiography Diagnostic Testing: Radiology Impression Chest X-Ray 11/29/23 13:30 IMPRESSION: Status post right thoracentesis. No evidence of pneumothorax. Electronically Signed: Michael Soriano MD at 14:34 EST , Physical Exam Const alert, no apparent distress and average body habitus Constitutional Narrative: Pleasant elderly male, thin appearing, fatigued appearing, otherwise sitting comfortably in bedside chair, conversing normally, no acute distress. General Appearance: cooperative and comfortable HEENT normocephalic, head/scalp atraumatic, hearing grossly normal bilaterally, nasal mucous membranes and turbinates normal and moist oral mucous membranes Eyes PERRL, EOMs intact bilaterally and conjunctivae normal Neck full ROM, no lymphadenopathy and supple Lymph Lymphatic: no lymphadenopathy noted Chest inspection of chest normal Resp Resp Narrative: Breathing comfortably on 2L NC, no increased work of breathing noted. Mildly diminished breath sounds bilaterally, no wheezing or crackles noted. Cardio regular rate, regular rhythm, no murmurs and peripheral pulses 2+ throughout GI normal to inspection, nondistended, normoactive bowel sounds, soft to palpation, non-tender and non-distended Back/Spine normal ROM Extremity normal to inspection and full ROM Skin no rashes or lesions noted Neuro no focal motor deficits and no sensory deficits noted Speech: speech normal Psych mental status grossly normal Assessment & Plan Assessment/Plan (1) Pleural effusion, right: (2) Acute on chronic HFrEF (heart failure with reduced ejection fraction): PLAN: Plan Patient is an 88 year old male who presented to [facility] ED on 11/27/2023 with worsening shortness of breath on exertion. 1. Acute exacerbation of HFrEF, improving, with acute hypoxia CXR on admit showed moderate right pleural effusion, small left pleural effusion. BNP > 5000. Recent TTE on 11/10/23 showed EF 20%, severe global hypokinesis of LV, moderate pulmonary HTN, no change from previous TTE from 07/2022. Unclear trigger for current exacerbation. Started on IV lasix 40 mg BID on admit, has had good urine output with improvement in oxygenation status and in dyspnea on exertion. - Continue IV lasix for today, will plan to transition to PO lasix 40 mg daily on 11/30. Monitor daily BMP and urine output. Wean supplemental O2 as able, will need home O2 evaluation prior to discharge. Continue home spironolactone, Entresto, carvedilol. 2. Right-sided pleural effusion - CXR with right effusion on admit as noted above. Presumed secondary to heart failure. S/p thoracentesis with radiology on 11/29, 710 cc of clear yellow fluid drained, fluid studies consistent with transudative effusion presumed secondary to heart failure. Repeat CXR post thoracentesis with no evidence of pneumothorax. 3. Chronic macrocytic anemia - Hemoglobin 9.5 on admit, baseline hemoglobin 9-10. Mild downtrend in hemoglobin to 8.3 on 11/29. Suspect due to lab draws, acute HFrEF exacerbation. Iron studies 11/29 consistent with iron deficiency anemia. Will give dose of IV iron tomorrow. Trend CBC daily. 4. Debility, degenerative arthritis - PT/OT/CM following. Planning for home with [facility] on discharge. 5. Hypokalemia - Presumed secondary to heavy diuresis with Lasix. Replete as needed. Chronic medical conditions: - CKD stage IV: Creatinine at baseline, monitor daily BMP. - Paroxysmal Afib: Continue home coreg. Eliquis held on 11/29 for thoracentesis, will restart on 11/30. 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 - Chronic gout: Continue home allopurinol. - GERD: Continue home PPI. DVT prophylaxis: [place]qu[place]alyan Code status: Full code, verified Expected disposition: Home with [facility], 1-2 days Total clinical time spent by myself addressing the patient's medical issues, reviewing all the data, and collaborating with patient's care team: 35 minutes. Charges/Coding Visit Charges Inpatient E&M: 53487 Subs Hosp L2
[2023-11-29 15:56] LABS: Vitamin B12 1171 pg/mL (211-911)
[2023-11-29 15:56] LABS: Body Fluid Mononuclear WBC # 0.056 10^3/uL; Body Fluid Mononuclear WBC % 93.4 %; Body Fluid Polynuclear WBC # 0.004 10^3/uL; Body Fluid Polynuclear WBC % 6.6 %; Body Fluid Total Cells Counted 0.071 10^3/ul
[2023-11-29 16:02] LABS: Ferritin 67 ng/mL (26-388); Iron 34 ug/dL (65-175); Iron Binding Capacity,Total 254 ug/dL (250-450); PERCENT IRON SATURATION 13.4 % (15.0-55.0)
[2023-11-29 16:21] LABS: Appearance/Body Fluid CLEAR; Auto B Fluid Analyzer BKGD Ct COUNTS W/IN LIMITS (W/IN LIMITS); Color/Body Fluid YELLOW; Red Cell Count/Body Fluid 12 /mm3; Source- Body Fluid THORACENTESIS
[2023-11-29 16:23] LABS: Body Fluid QC Type(s) BF1Q
[2023-11-29 16:36] LABS: Glucose, Body Fluid 142 mg/dL (40-70); LDH,Body Fluid 85 Units/L (Not Establ.); Protein, Body Fluid 2.3 g/dL (Not Establ.)
[2023-11-29 16:51] LABS: Lymphocytes 49 %; Macrophages 10 %; Monocytes 29 %; Neutrophil (Segs) 12 %
[2023-11-29] MEDS: Diphenoxylate/Atrop 1 Tablet PO (17:46)
[2023-11-29] MEDS: Atorvastatin Calcium 40 MG Tablet PO (20:48)
[2023-11-30] VITALS (7 sets, daily range): BP systolic 126–146; BP diastolic 64–70; PULSE 58–61; RESP 16–17; TEMP 36.3–36.7; O2SAT 95–99; BMI 21.1; BMI 20.5
[2023-11-30 05:25] LABS: Hematocrit 26.7 % (40-54); Hemoglobin 8.4 g/dL (13.0-16.5); Mean Corp Hgb Conc 31.5 g/dL (32-36); Mean Corpuscular Hgb 32.9 pg (27.0-32.0); Mean Corpuscular Volume 104.7 fL (80-94); Mean Platelet Vol. 10.3 fl (6.2-12.0); POSITIVE MORPHOLOGY YES; Platelet Count 130 K/mm3 (150-450); RBC Distribution Width CV 17.2 % (11.6-14.6); RBC Distribution Width SD 65.1 fl (35.1-43.9); Red Blood Count 2.55 M/mm3 (4.6-6.2); White Blood Count 4.6 K/mm3 (4.4-11.0)
[2023-11-30 05:29] LABS: Scan Indicated on CBC? Y/N YES- FLAGS NOTED
[2023-11-30 05:40] LABS: Anion Gap 3 (5-15); BUN 44 mg/dL (7-18); BUN/Creat Ratio 20.4 RATIO (10-20); Chloride 113 mmol/L (98-107); Creatinine, Serum 2.16 mg/dL (0.70-1.30); EST Glomerular Filtration Rate 31 mL/min (>60); Est Glom Filt Rate - Afr Amer 37 mL/min (>60); Estimated Creatinine Clearance 22.76 ml/min; Glucose 106 mg/dL (74-106); Potassium 3.2 mmol/L (3.5-5.1); Sodium Level 144 mmol/L (136-145)
[2023-11-30 06:28] LABS: Differential Comment SCANNED
[2023-11-30] MEDS: Sodium Ferric Gluconat/Sucrose 250 MG in 0.9% Normal Saline (250mL Bag) 250 ML 135 MG IV (08:35)
[2023-11-30] MEDS: Potassium Chloride Oral Tablet 20 MEQ 60 MEQ PO (08:36)
[2023-11-30] MEDS: 0.9% Saline Lock 10 ML Syringe IV (08:36)
[2023-11-30] MEDS: APIXABAN 2.5 MG TABLET (WCH) PO (08:44)
[2023-11-30] MEDS: SACUBITRIL/VALSARTAN 49-51 MG TABLET 1 EACH PO (08:44)
[2023-11-30] MEDS: Ascorbic Acid 500 MG Tablet PO (08:44)
[2023-11-30] MEDS: Sodium Bicarbonate 650 MG Tablet PO (08:44)
[2023-11-30] MEDS: Cyanocobalamin 500 MCG Tablet 1000 MCG PO (08:45)
[2023-11-30] MEDS: Furosemide 40 MG Tablet PO (08:45)
[2023-11-30] MEDS: Allopurinol 100 MG Tablet PO ×2 (08:45→18:11)
[2023-11-30] MEDS: Pyridoxine HCl 100 MG Tablet PO (08:45)
[2023-11-30] MEDS: Spironolactone 25 MG Tablet 12.5 MG PO (08:45)
[2023-11-30] MEDS: Cholecalciferol (VIT D3) 25 MCG TABLET (1,000 UNITS) 50 MCG PO (08:46)
[2023-11-30] MEDS: Carvedilol 25 MG Tablet PO (08:46)
[2023-11-30] MEDS: Magnesium Chloride 64 MG Delay Rel.Tablet 128 MG PO (08:46)
--- NOTE | 2023-11-30 13:19 | CASEMGMT ---
RN CM into pt room, pt did not qualify for home oxygen. Pt and present, they are aware that [facility] will be in touch with them to be out for SN. Pt verified that therapy was not ordered. Pt and deny any further needs at this time.
--- NOTE | 2023-11-30 15:19 | DS.PCM_ITS ---
Providers Date of Admission: 11/27/23 Date of Discharge: 11/30/23 Primary Care Physician: Cheli Grace MD Consultations 11/30/23 13:00 Consult: Cardiology Routine Consulting Provider: Jose Soto Reason for Consult: HFrEF exacerbation, follows w/ Dr. Harvey, homegoing med recs EMERGENT Consult: No MD Notified: Yes Date Notified: 11/30/23 Time Notified: 13:00 Method of Notification: Text Reason For Visit: CHF EXACERBATION Diagnosis Discharge Diagnosis (1) Pleural effusion, right: Status: Acute Code(s): J90 - Pleural effusion, not elsewhere classified (2) Acute on chronic HFrEF (heart failure with reduced ejection fraction): Status: Acute Code(s): I50.23 - Acute on chronic systolic (congestive) heart failure Medications at Discharge Home Medications allopurinol 100 mg tablet 100 mg PO BID Gout 11/24/18 atorvastatin 40 mg tablet 40 mg PO QHS Cholesterol 11/24/18 pyridoxine (vitamin B6) 100 mg tablet 100 mg PO DAILY supplement 11/24/18 albuterol sulfate 90 mcg/actuation aerosol inhaler 2 puff inhalation Q4H PRN shortness of breath or wheezing #8.5 grams 12/25/20 ascorbate calcium (vitamin C) 500 mg tablet 500 mg PO DAILY supplement 12/25/20 mecobalamin (vitamin B12) 1,000 mcg disintegrating tablet,sublingual 1,000 mcg sublingual DAILY supplement 12/25/20 cholecalciferol (vitamin D3) 50 mcg (2,000 unit) tablet 50 mcg PO DAILY bone health #1 TAB 03/09/22 coenzyme Q10 100 mg tablet 100 mg PO DAILY general 09/24/22 nitroglycerin 0.4 mg sublingual tablet 0.4 mg sublingual Q5M PRN Cardiac/Chest Pain #30 tabs 09/02/23 apixaban 2.5 mg tablet 2.5 mg PO BID Blood thinner #180 tabs 09/30/23 Lactobacillus acidophilus 1 cap PO SUTUTHSA PROBIOTIC 11/17/23 carvedilol 25 mg tablet 25 mg PO BID blood pressure 11/17/23 magnesium oxide 400 mg (241.3 mg magnesium) tablet 400 mg PO DAILY SUPPLEMENT 11/17/23 sacubitril 49 mg-valsartan 51 mg tablet (Entresto) 1 tab PO BID BLOOD PRESSURE 11/17/23 sodium bicarbonate 650 mg tablet 650 mg PO DAILY SUPPLEMENT 11/17/23 furosemide 40 mg tablet 40 mg PO DAILY 30 days #30 tabs 11/30/23 spironolactone 25 mg tablet 12.5 mg (1/2 x 25 mg) PO DAILY 30 days #15 tabs 11/30/23 Hospital Course Operations None Procedures EKG, Thoracentesis, Transthoracic echo and - (Chest x-ray x 2) Summary of Care Provided Minutes Spent on Discharge: 35 Hospital Course: Patient is an 88 year old male who presented to [facility] ED on 11/27/2023 with worsening shortness of breath on exertion. Hospital course as noted below. Discharged home with home health care in stable condition on 11/30. 1. Acute exacerbation of HFrEF, improved; acute hypoxia, resolved CXR on admit showed moderate right pleural effusion, small left pleural effusion. BNP > 5000. Recent TTE on 11/10/23 showed EF 20%, severe global hypokinesis of LV, moderate pulmonary HTN, no change from previous TTE from 07/2022. Unclear trigger for current exacerbation. Was diuresed with IV lasix 40 mg BID on admit from start of admission through 11/29 with very good urine output, transitioned to p.o. Lasix 40 mg daily on day of discharge. Acute hypoxia presumed secondary to volume overload, improved with diuresis and after thoracentesis as noted below. ? Cardiology followed. Okay for discharge home on p.o. Lasix 40 mg daily and spironolactone 12.5 mg daily. Will continue home Entresto and carvedilol as well. Passed O2 ambulatory evaluation prior to discharge, no need for home oxygen. Outpatient follow-up with Dr. Harvey in January. 2. Right-sided pleural effusion, resolved CXR with right effusion on admit as noted above. Presumed secondary to heart failure. ? S/p thoracentesis with radiology on 11/29, 710 cc of clear yellow fluid drained, fluid studies consistent with transudative effusion presumed secondary to heart failure. Repeat CXR post thoracentesis with no evidence of pneumothorax. 3. Chronic macrocytic anemia Hemoglobin 9.5 on admit, baseline hemoglobin 9-10. Mild downtrend in hemoglobin to 8.3 on 11/29. Suspect due to lab draws, acute HFrEF exacerbation. Iron studies 2/5 consistent with iron deficiency anemia. ? Given dose of IV iron 200 mg on day of discharge. Recommend repeating CBC in 1 to 2 weeks to ensure it remains stable. Can consider repeat iron studies in the next few months and consider further IV iron doses as needed. 4. Debility, degenerative arthritis - PT/OT/CM followed. Discharged home with home health care. 5. Hypokalemia - Presumed secondary to heavy diuresis with Lasix. Repleted as needed. Notably started on spironolactone during this admission, home potassium supplement 20 mEq daily held on discharge. Chronic medical conditions: - CKD stage IV: Creatinine at baseline, monitor daily BMP. - Paroxysmal Afib: Continue home Coreg and Eliquis. 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 - Chronic gout: Continue home allopurinol. - GERD: Continue home PPI. Total clinical time spent by myself addressing the patient's discharge needs: 35 minutes. Physical Exam Const alert, no apparent distress and average body habitus Constitutional Narrative: Pleasant elderly male, thin appearing, fatigued appearing, otherwise sitting comfortably in bedside chair, conversing normally, no acute distress. General Appearance: cooperative and comfortable HEENT normocephalic, head/scalp atraumatic, hearing grossly normal bilaterally, nasal mucous membranes and turbinates normal and moist oral mucous membranes Eyes PERRL, EOMs intact bilaterally and conjunctivae normal Neck full ROM, no lymphadenopathy and supple Lymph Lymphatic: no lymphadenopathy noted Chest inspection of chest normal Resp Resp Narrative: Breathing comfortably on room air, no increased work of breathing noted. Mildly diminished breath sounds bilaterally, no wheezing or crackles noted. Cardio no murmurs and peripheral pulses 2+ throughout Cardio Narrative: A-fib, rate controlled. GI normal to inspection, nondistended, normoactive bowel sounds, soft to palpation, non-tender and non-distended Back/Spine normal ROM Extremity normal to inspection and full ROM Skin no rashes or lesions noted Neuro no focal motor deficits and no sensory deficits noted Speech: speech normal Psych mental status grossly normal Weight / BMI Weight Weight: 64.8 kg Body Mass Index (BMI) 20.5 ABG / Lab / Microbiology Data 11/30/23 04:43 11/30/23 04:43 Laboratory: Laboratory Results - last 24 hr 11/29/23 04:21: Iron 34 L, TIBC 254, Iron Saturation 13.4 L, Ferritin 67, Vitamin B12 1171 H, Folate 10.10 11/29/23 13:26: Fluid Source THORACENTESIS, Fluid Color YELLOW, Fluid Appearance CLEAR, Fluid WBC 0.060, Fluid RBC 12, Fluid Tot Cell Count 0.071, Fld Teofilo ynuclear WBCs # 0.004, Fld Polynuclear WBCs % 6.6, Fluid Mononuclear WBCs 0.056, Fld Mononuclear WBCs % 93.4, Fluid Neutrophils 12, Fluid Lymphocytes 49, Fluid Monocytes 29, Fluid Macrophages 10, Fl Pathologist Comment May follow, Fluid Glucose 142 H, Fluid Total Protein 2.3, Fluid LDH 85, Fluid Comment 2 SEE COMMENT 11/30/23 04:43: WBC 4.6, RBC 2.55 L, Hgb 8.4 L, Hct 26.7 L, MCV 104.7 H, MCH 32.9 H, MCHC 31.5 L, RDW Std Deviation 65.1 H, RDW Coeff of Vanesa 17.2 H, Plt Count 130 L, MPV 10.3, Differential Comment SCANNED, Sodium 144, Potassium 3.2 L , Chloride 113 H, Carbon Dioxide 28.0, Anion Gap 3 L, BUN 44 H, Creatinine 2.16 H, Estim Creat Clear Calc 22.76, Est GFR (MDRD) Af Amer 37 L, Est GFR (MDRD) Non-Af 31 L, BUN/Creatinine Ratio 20.4 H, Glucose 106, Calcium 9.0 Microbiology: Microbiology 11/29/23 13:26 Fluid - Pleural (Lung) Gram Stain - Final 11/29/23 13:26 Fluid - Pleural (Lung) Body Fluid Culture - Preliminary No growth-Final to follow 11/28/23 14:15 Stool Clostridioides difficile (PCR) - Final Meaningful Use Info Meaningful Use Diagnoses (Choose all that apply): CHF CHF ROHAN/ARB ordered at discharge?: Yes Documented LVEF (%): 20 Discharge Plan Admission Admit Date/Time: 11/27/23 15:32 Primary Reason for Your Visit: Shortness of breath with exertion Attending Provider: Sanjeev Sandhu Primary Care Provider: Cheli Grace Consulting Providers: Dav Renteria; Gómez Nowak; Jose Soto Instructions Additional Instructions / Restrictions: Start taking Lasix and spironolactone as noted below. Follow-up with cardiology in the office as directed by them. Discharge Orders/Prescriptions Prescriptions: New furosemide 40 mg Tablet 40 mg PO DAILY 30 Days Qty: 30 0RF spironolactone 25 mg Tablet 12.5 mg PO DAILY 30 Days Qty: 15 0RF Continued mecobalamin (vitamin B12) 1,000 mcg tablet,disintegrating 1,000 mcg SUBLINGUAL DAILY Rx Instructions: place tablet under tongue and allow to dissolve for at least30 secs before swallowing. pt takes in the am ascorbate calcium (vitamin C) 500 mg tablet 500 mg PO DAILY albuterol sulfate 90 mcg/actuation HFA aerosol inhaler 2 puff INHALATION Q4H PRN (Reason: shortness of breath or wheezing) Qty: 8.5 6RF Rx Instructions: administer with spacer coenzyme Q10 100 mg tablet 100 mg PO DAILY Rx Instructions: pt takes in the am atorvastatin 40 MG tablet 40 mg PO QHS allopurinol 100 MG tablet 100 mg PO BID pyridoxine (vitamin B6) 100 MG tablet 100 mg PO DAILY Rx Instructions: pt takes in the am carvedilol 25 mg tablet 25 mg PO BID Rx Instructions: must administer with a meal/food Entresto 49-51 mg tablet 1 tab PO BID magnesium oxide 400 mg (241.3 mg magnesium) tablet 400 mg PO DAILY Patient Comments: TAKE 1 TABLET BY MOUTH ONCE DAILY sodium bicarbonate 650 mg tablet 650 mg PO DAILY Lactobacillus acidophilus [Probiotic Acidophilus] 1 cap PO SUTUTHSA cholecalciferol (vitamin D3) 50 mcg (2,000 unit) tablet 50 mcg PO DAILY Qty: 1 0RF nitroglycerin 0.4 mg tablet, sublingual 0.4 mg sublingual Q5M PRN (Reason: Cardiac/Chest Pain) Qty: 30 2RF apixaban 2.5 mg tablet 2.5 mg PO BID Qty: 180 4RF Discontinued potassium chloride 20 mEq tablet extended release 20 meq PO MOWEFR torsemide 20 mg tablet 20 mg PO MOWEFR Referrals / Follow Up: Cheli Grace MD [Primary Care Provider] - Disposition Disposition (needs filled in before D/C Order can be placed): Home Health Service Charges/Coding Visit Charges Inpatient E&M: 15665 Disch Hosp >30min
--- NOTE | 2023-11-30 17:22 | PCM.CONS.C ---
Assessment & Plan Assessment/Plan (1) Acute on chronic HFrEF (heart failure with reduced ejection fraction): PLAN: Patient appears to be well compensated at the current time. The patient is to be continued on his Entresto spironolactone Lasix and carvedilol. The patient he is on carvedilol 25 mg twice daily Lasix 40 mg daily he had been on torsemide 20 mg daily at home. Either 1 of these are adequate for him to take. He should continue on the Entresto at his current dose twice daily and spironolactone 12.5 mg daily. The patient has a problem getting out in the cold weather and for that reason we would see him in the office only if he has an issue arising otherwise he will follow-up with his January appointment with Dr. Harvey. He and his were instructed to call the office should they have any questions or feel that he needs to be seen prior to January. (2) Sick sinus syndrome: PLAN: The patient's pacemaker was last interrogated in early October 2023 and was working appropriately. It was documented that he was in atrial flutter since September 06, 2023. The patient should be continued on his Eliquis at this time. (3) Brain bleed: PLAN: The patient's brain bleed was in the remote past and he has tolerated Eliquis in the home environment. This should be continued at his current dose of 2.5 mg twice daily. (4) Atrial flutter: QUALIFIERS: Atrial flutter type: typical Qualified Code(s): I48.3 - Typical atrial flutter PLAN: The patient's pacer interrogation in early October 2023 revealed that he had been in atrial flutter with his ventricular pacer tracking with no excessive rates in the ventricle. PLAN: Plan 1. Continue current medical therapy as outlined and is currently receiving in the hospital. 2. From a cardiovascular standpoint the patient can be discharged to home. I discussed follow-up in detail with the patient and his . HPI Consult Data Date of Consult: 11/30/23 HPI Narrative Reason for Consultation: Medication reconciliation HPI Narrative: DARCY COVARRUBIAS, is a 88 M who presents with shortness of breath and some upper chest pressure sensations. He was diuresed and thoracentesis was performed removing approximately a liter of fluid by the patient and 's report. He has felt much better since that intervention. The patient is currently taking all of his listed medications he is up ambulating without dizziness or shortness of breath or dyspnea. He denies any lower extremity edema and he is resting comfortably at 30 degrees in the bed. The patient denies any chest pain and he is anxious to go home. 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 He has a history of paroxysmal atrial flutter. 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 Pacer check October 28, 2023 showed that he had been in atrial flutter since September 06, 2023. The patient's last echo was November 10, 2023 he had global LV systolic dysfunction ejection fraction of 20% mild atrial enlargement 1-2+ mitral regurgitation 2+ tricuspid regurgitation and pulmonary artery pressure estimated at 60. The patient does complain of recurrent diarrhea since he had COVID. He is control this with the current combination of Lomotil and Metamucil. However he says that Citrucel seem to work better for him in the past when he had issues with bowel habits. [facility] Medical History Acute electrocardiogram changes Atherosclerosis of [place] coronary artery of [place] heart without angina pectoris Brain bleed Carotid artery disease Chest pain Chronic kidney disease (CKD) Chronic kidney disease (CKD) Congestive heart failure COVID-19 GERD (gastroesophageal reflux disease) Hypoxemia Ischemic cardiomyopathy Kidney disease, chronic, stage III (GFR 30-59 ml/min) Paroxysmal atrial fibrillation Pneumonia of both lower lobes Home Medications allopurinol 100 mg tablet 100 mg PO BID Gout 11/24/18 [History Last Taken 11/27/23] atorvastatin 40 mg tablet 40 mg PO QHS Cholesterol 11/24/18 [History Last Taken 11/26/23] pyridoxine (vitamin B6) 100 mg tablet 100 mg PO DAILY supplement 11/24/18 [History Last Taken 11/26/23] albuterol sulfate 90 mcg/actuation aerosol inhaler 2 puff inhalation Q4H PRN shortness of breath or wheezing #8.5 grams 12/25/20 [Rx Last Taken Unknown] ascorbate calcium (vitamin C) 500 mg tablet 500 mg PO DAILY supplement 12/25/20 [History Last Taken 11/17/23] mecobalamin (vitamin B12) 1,000 mcg disintegrating tablet,sublingual 1,000 mcg sublingual DAILY supplement 12/25/20 [History Last Taken 11/26/23] cholecalciferol (vitamin D3) 50 mcg (2,000 unit) tablet 50 mcg PO DAILY bone health #1 TAB 03/09/22 [Rx Last Taken 11/17/23] coenzyme Q10 100 mg tablet 100 mg PO DAILY general 09/24/22 [History Last Taken 11/16/23] torsemide 20 mg tablet 20 mg PO MOWEFR edema 11/19/22 [History Last Taken 11/27/23] potassium chloride 20 mEq tablet,extended release 20 meq PO MOWEFR Hypokalemia 06/30/23 [History Last Taken 11/27/23] nitroglycerin 0.4 mg sublingual tablet 0.4 mg sublingual Q5M PRN Cardiac/Chest Pain #30 tabs 09/02/23 [Rx Last Taken Unknown] apixaban 2.5 mg tablet 2.5 mg PO BID Blood thinner #180 tabs 09/30/23 [Rx Last Taken 11/27/23] Lactobacillus acidophilus 1 cap PO SUTUTHSA PROBIOTIC 11/17/23 [History Last Taken 11/16/23] carvedilol 25 mg tablet 25 mg PO BID blood pressure 11/17/23 [History Last Taken 11/27/23] magnesium oxide 400 mg (241.3 mg magnesium) tablet 400 mg PO DAILY SUPPLEMENT 11/17/23 [History Last Taken 11/27/23] sacubitril 49 mg-valsartan 51 mg tablet (Entresto) 1 tab PO BID BLOOD PRESSURE 11/17/23 [History Last Taken 11/27/23] sodium bicarbonate 650 mg tablet 650 mg PO DAILY SUPPLEMENT 11/17/23 [History Last Taken 11/26/23] Allergy/AdvReac Type Severity Reaction Status Date / Time No Known Allergies Allergy Verified 11/17/23 08:29 Family History Father CAD (coronary artery disease) Surgical History History of brain surgery History of coronary artery bypass graft x 3 History of craniotomy History of permanent cardiac pacemaker placement Social History household members: spouse Smoking Status: Never smoker alcohol intake: never substance use type: does not use caffeine: No ROS Constitutional Constitutional: Reports systems reviewed and no addt'l complaints, except as documented Eyes Eyes: Reports systems reviewed and no addt'l complaints, except as documented ENT HEENT: Reports systems reviewed and no addt'l complaints, except as documented Cardiovascular Cardiovascular: Reports as per HPI Respiratory/Chest Respiratory/Chest: Reports as per HPI Gastrointestinal Gastrointestinal: Reports as per HPI Genitourinary Genitourinary: Reports systems reviewed and no addt'l complaints, except as documented Musculoskeletal Musculoskeletal: Reports systems reviewed and no addt'l complaints, except as documented Integumentary Integumentary: Reports systems reviewed and no addt'l complaints, except as documented Neurologic Neurologic: Reports systems reviewed and no addt'l complaints, except as documented Psychiatric Psychiatric: Reports systems reviewed and no addt'l complaints, except as documented Endocrine Endocrinology: Reports systems reviewed and no addt'l complaints, except as documented Hematologic/Lymphatic Hematologic/Lymphatic: Reports systems reviewed and no addt'l complaints, except as documented Allergic/Immunologic Allergic/Immunologic: Reports systems reviewed and no addt'l complaints, except as documented Physical Exam Const oriented x3 HEENT normocephalic Eyes EOMs intact bilaterally Neck supple and no carotid bruits Chest inspection of chest normal Chest: midline sternotomy incision and left pectoral incision Resp normal respiratory effort Auscultation: crackles bilateral base Cardio regular rate, regular rhythm, S1 normal heart sound, S2 normal heart sound, no rub and no gallops Jugular Venous Distention: JVD to the level of the angle of the jaw (At 30 degrees) Heart Sounds: murmur systolic II/ soft right sternal border GI normal to inspection, nondistended, normoactive bowel sounds and soft to palpation Extremity no pedal edema Skin no rashes or lesions noted Neuro Neuro Narrative: Alert and oriented x 3 Psych mental status grossly normal Risk Stratification Risk Stratification Applicable: No Charges/Coding Visit Charges Inpatient E&M: 70927 Init Hosp L3 Objective Data Vital Signs: Vital Signs Temp Pulse Resp BP Pulse Ox O2 Del Method O2 Flow Rate 97.6 F L 60 16 126/66 H 95 Room Air 2 11/30/23 15:11/30/23 15:11/30/23 15:11/30/23 15:24 15:09 11/30/23 15:09 11/30/23 07:41 Oxygen Flow Rate (L/min) 2 Oxygen Delivery Method Room Air Weight: 142 lb 13.753 oz Body Mass Index (BMI) 20.5 Intake & Output: Intake and Output for Last 24 Hours 11/28/23 11/29/23 11/30/23 23:59 23:59 23:59 Intake Total 830 / 830 320 / 320 330 / 330 Output Total 2800 / 2800 2760 / 2760 1200 / 1200 Balance -1970 / -1970 -2440 / -2440 -870 / -870 Lab / Micro Data Attestation: I reviewed the patient's lab results. 11/30/23 04:43 11/30/23 04:43 Labs: Laboratory Results - last 24 hr 11/30/23 04:43: WBC 4.6, RBC 2.55 L, Hgb 8.4 L, Hct 26.7 L, MCV 104.7 H, MCH 32.9 H, MCHC 31.5 L, RDW Std Deviation 65.1 H, RDW Coeff of Vanesa 17.2 H, Plt Count 130 L, MPV 10.3, Differential Comment SCANNED, Sodium 144, Potassium 3.2 L, Chloride 113 H, Carbon Dioxide 28.0, Anion Gap 3 L, BUN 44 H, Creatinine 2.16 H, Estim Creat Clear Calc 22.76, Est GFR (MDRD) Af Amer 37 L, Est GFR (MDRD) Non-Af 31 L, BUN/Creatinine Ratio 20.4 H, Glucose 106, Calcium 9.0 Micro: Microbiology 11/29/23 13:26 Fluid - Pleural (Lung) Gram Stain - Final 11/29/23 13:26 Fluid - Pleural (Lung) Body Fluid Culture - Preliminary No growth-Final to follow Cardiology Labs/Tests 11/30/23 04:43: WBC 4.6, RBC 2.55 L, Hgb 8.4 L, Hct 26.7 L, MCV 104.7 H, MCH 32.9 H, MCHC 31.5 L, Plt Count 130 L, MPV 10.3, Sodium 144, Potassium 3.2 L, Chloride 113 H, Carbon Dioxide 28.0, Anion Gap 3 L, BUN 44 H, Creatinine 2.16 H, Est GFR (MDRD) Af Amer 37 L, Est GFR (MDRD) Non-Af 31 L, BUN/Creatinine Ratio 20.4 H, Glucose 106, Calcium 9.0 Rhythm: EKG: ECHO: Stress Test: Cardiac Cath: PCI: CT Surgery: Holter monitor: EPS: PPM: CXR: Chest CT Scan:
[2023-12-02 09:13] LABS: Pathologist Comment/Body Fluid Reviewed
[2023-12-02 17:07] LABS: Amylase Body Fluid 18 U/L (.); pH, Body Fluid 11254 7.4 (Not Estab.)
== END 2023-11-30 19:08 | disposition home health service (06) | DRG 291 ==
LOC: ED 13:41 → PCU 15:42
PROVIDERS: Nurse Practitioner Acute Care; Admitting Provider Internal Medicine; Emergency Provider Emergency Medicine; PCP Family Medicine; Referring Provider Emergency Medicine; Visit Provider Hospitalist
DX: I13.0 Hypertensive heart and chronic kidney disease with heart failure and stage 1 through stage 4 chronic kidney disease, or unspecified chronic kidney disease (principal); I50.23 Acute on chronic systolic (congestive) heart failure; N18.4 Chronic kidney disease, stage 4 (severe); I48.3 Typical atrial flutter; J91.8 Pleural effusion in other conditions classified elsewhere; I27.20 Pulmonary hypertension, unspecified; I49.5 Sick sinus syndrome; I48.0 Paroxysmal atrial fibrillation; D50.9 Iron deficiency anemia, unspecified; E87.6 Hypokalemia; I25.10 Atherosclerotic heart disease of native coronary artery without angina pectoris; K21.9 Gastro-esophageal reflux disease without esophagitis; M1A.9XX0 Chronic gout, unspecified, without tophus (tophi); M19.90 Unspecified osteoarthritis, unspecified site; Z79.01 Long term (current) use of anticoagulants; R09.02 Hypoxemia; R53.81 Other malaise; Z79.899 Other long term (current) drug therapy; Z95.0 Presence of cardiac pacemaker; Z95.1 Presence of aortocoronary bypass graft; Z86.73 Personal history of transient ischemic attack (TIA), and cerebral infarction without residual deficits
CPT/HCPCS: 32555; 36415; 51702; 71045; 71046; 80048; 80053; 80061; 82150; 82607; 82728; 82746; 82945; 83540; 83550; 83615; 83735; 83880; 83986; 84100; 84156; 84157; 84443; 84484; 85025; 85027; 85610; 85730; 87070; 87075; 87205; 87493; 88108; 88305; 88313; 89050; 92526; 92610; 93005; 94640; 94668; 97110; 97162; 97166; 97530; 99285; J7050; A4216; J1940; J2916

== ENCOUNTER → 2023-12-06 | Outpatient (CLI) | payer MEDICARE, OTHER, SELFPAY ==
[2023-12-06 12:40] LABS: Absolute Lymphocyte Count 0.93 X10^3/uL (0.83-4.51); Absolute Neutrophil Count 2.3 X10^3/uL (2.0-7.7); Basophil# 0.05 X10^3/uL; Basophil% 1.3 % (0-1); Eosinophil# 0.32 X10^3/uL; Hematocrit 31.2 % (40-54); Hemoglobin 9.8 g/dL (13.0-16.5); Lymphocyte # 0.93 X10^3/ul (0.83-4.51); Lymphocyte % 23.3 % (19-41); Mean Corp Hgb Conc 31.4 g/dL (32-36); Mean Corpuscular Hgb 33.1 pg (27.0-32.0); Mean Corpuscular Volume 105.4 fL (80-94); Mean Platelet Vol. 10.4 fl (6.2-12.0); Monocyte# 0.38 X10^3/uL; Monocyte% 9.5 % (0-10); NRBC Flagged by Analyzer 0 % (0-5); Neutrophil % 57.4 % (47-70); Platelet Count 149 K/mm3 (150-450); RBC Distribution Width CV 16.3 % (11.6-14.6); RBC Distribution Width SD 63.7 fl (35.1-43.9); Red Blood Count 2.96 M/mm3 (4.6-6.2)
[2023-12-06 12:56] LABS: Anion Gap 8 (5-15); BUN 43 mg/dL (7-18); BUN/Creat Ratio 17.8 RATIO (10-20); Calcium,Total 9.3 mg/dL (8.5-10.1); Chloride 108 mmol/L (98-107); Creatinine, Serum 2.41 mg/dL (0.70-1.30); EST Glomerular Filtration Rate 27 mL/min (>60); Est Glom Filt Rate - Afr Amer 33 mL/min (>60); Glucose 105 mg/dL (74-106); Potassium 3.8 mmol/L (3.5-5.1); Sodium Level 141 mmol/L (136-145)
== END | disposition home or self-care (01) ==
LOC: MTLAB 10:45
PROVIDERS: PCP Family Medicine; Referring Provider Family Medicine; Visit Provider Family Medicine
DX: R06.02 Shortness of breath (principal)
CPT/HCPCS: 36415; 80048; 85025

== ENCOUNTER → 2023-12-20 | Outpatient (CLI) | payer MEDICARE, OTHER, SELFPAY ==
[2023-12-20 17:45] LABS: Hematocrit 30.2 % (40-54); Hemoglobin 9.7 g/dL (13.0-16.5); Mean Corp Hgb Conc 32.1 g/dL (32-36); Mean Corpuscular Hgb 33.3 pg (27.0-32.0); Mean Corpuscular Volume 103.8 fL (80-94); Mean Platelet Vol. 10.8 fl (6.2-12.0); Platelet Count 142 K/mm3 (150-450); RBC Distribution Width SD 57.6 fl (35.1-43.9); Red Blood Count 2.91 M/mm3 (4.6-6.2); White Blood Count 4.6 K/mm3 (4.4-11.0)
[2023-12-20 17:59] LABS: BUN 63 mg/dL (7-18); BUN/Creat Ratio 23.9 RATIO (10-20); Calcium,Total 9.5 mg/dL (8.5-10.1); Chloride 108 mmol/L (98-107); Creatinine, Serum 2.64 mg/dL (0.70-1.30); EST Glomerular Filtration Rate 25 mL/min (>60); Est Glom Filt Rate - Afr Amer 30 mL/min (>60); Glucose 104 mg/dL (74-106); Phosphorus 3.4 mg/dL (2.5-4.9); Potassium 4.1 mmol/L (3.5-5.1); Sodium Level 140 mmol/L (136-145)
== END | disposition home or self-care (01) ==
PROVIDERS: PCP Family Medicine; Referring Provider Internal Medicine Nephrology; Visit Provider Internal Medicine Nephrology
DX: N18.4 Chronic kidney disease, stage 4 (severe) (principal); D50.9 Iron deficiency anemia, unspecified
CPT/HCPCS: 36415; 80069; 83970; 85027

== ENCOUNTER → 2024-01-12 | Outpatient (CLI) | payer MEDICARE, OTHER, SELFPAY ==
[2024-01-12 15:14] LABS: Absolute Lymphocyte Count 0.99 X10^3/uL (0.83-4.51); Absolute Neutrophil Count 3.3 X10^3/uL (2.0-7.7); Basophil# 0.04 X10^3/uL; Basophil% 0.8 % (0-1); Eosinophils% 9.5 % (0-5); Hematocrit 30.3 % (40-54); Hemoglobin 9.5 g/dL (13.0-16.5); Lymphocyte # 0.99 X10^3/ul (0.83-4.51); Lymphocyte % 18.9 % (19-41); Mean Corp Hgb Conc 31.4 g/dL (32-36); Mean Corpuscular Hgb 32.6 pg (27.0-32.0); Mean Corpuscular Volume 104.1 fL (80-94); Mean Platelet Vol. 10.6 fl (6.2-12.0); Monocyte% 7.6 % (0-10); NRBC Flagged by Analyzer 0 % (0-5); Platelet Count 129 K/mm3 (150-450); RBC Distribution Width CV 14.6 % (11.6-14.6); RBC Distribution Width SD 55.9 fl (35.1-43.9); Red Blood Count 2.91 M/mm3 (4.6-6.2); White Blood Count 5.2 K/mm3 (4.4-11.0)
[2024-01-12 15:37] LABS: ALB/GLOB Ratio 1.1 RATIO (0.9-2.4); AST(SGOT) 19 U/L (15-37); Alanine Aminotransfer ALT/SGPT 27 U/L (16-61); Alkaline Phosphatase 90 U/L (45-117); Anion Gap 9 (5-15); BUN 89 mg/dL (7-18); Calcium,Total 9.3 mg/dL (8.5-10.1); Chloride 113 mmol/L (98-107); EST Glomerular Filtration Rate 24 mL/min (>60); Est Glom Filt Rate - Afr Amer 29 mL/min (>60); Globulin 3.8 g/dL (2.2-4.2); Glucose 103 mg/dL (74-106); Phosphorus 4.2 mg/dL (2.5-4.9); Protein, Total 7.8 g/dL (6.4-8.2); Sodium Level 144 mmol/L (136-145)
[2024-01-12 15:51] LABS: AST(SGOT) 17 U/L (15-37); Alanine Aminotransfer ALT/SGPT 28 U/L (16-61); Albumin, Serum 4.1 g/dL (3.2-5.0); Alkaline Phosphatase 91 U/L (45-117); Cholesterol 84 mg/dL (200); Globulin 3.6 g/dL (2.2-4.2); High Density Lipoprotein 40 mg/dL; Protein, Total 7.7 g/dL (6.4-8.2); Triglycerides 38 mg/dL; Very Low Density Lipoprotein 8 mg/dL (5-40)
== END | disposition home or self-care (01) ==
LOC: MTLAB 11:35
PROVIDERS: Nurse Practitioner Gerontology; PCP Family Medicine; Referring Provider Internal Medicine Nephrology; Visit Provider Internal Medicine Nephrology
DX: N17.9 Acute kidney failure, unspecified (principal); E78.00 Pure hypercholesterolemia, unspecified; D64.9 Anemia, unspecified; N18.9 Chronic kidney disease, unspecified
CPT/HCPCS: 36415; 80053; 80061; 80076; 84100; 85025

== ENCOUNTER → 2024-02-15 | Outpatient (CLI) | payer MEDICARE, OTHER, SELFPAY ==
[2024-02-15 12:33] LABS: Absolute Lymphocyte Count 0.82 X10^3/uL (0.83-4.51); Absolute Neutrophil Count 2.7 X10^3/uL (2.0-7.7); Basophil# 0.04 X10^3/uL; Eosinophil# 0.29 X10^3/uL; Eosinophils% 6.9 % (0-5); Hematocrit 28.2 % (40-54); Hemoglobin 9.3 g/dL (13.0-16.5); Lymphocyte # 0.82 X10^3/ul (0.83-4.51); Lymphocyte % 19.5 % (19-41); Mean Corpuscular Hgb 34.1 pg (27.0-32.0); Mean Corpuscular Volume 103.3 fL (80-94); Mean Platelet Vol. 10.5 fl (6.2-12.0); Monocyte# 0.35 X10^3/uL; Monocyte% 8.3 % (0-10); NRBC Flagged by Analyzer 0 % (0-5); Neutrophil # 2.69 X10^3/uL (2.7-7.7); Neutrophil % 64.1 % (47-70); Platelet Count 122 K/mm3 (150-450); RBC Distribution Width CV 16.2 % (11.6-14.6); RBC Distribution Width SD 60.9 fl (35.1-43.9); Red Blood Count 2.73 M/mm3 (4.6-6.2); White Blood Count 4.2 K/mm3 (4.4-11.0)
[2024-02-15 13:18] LABS: ALB/GLOB Ratio 1.1 RATIO (0.9-2.4); AST(SGOT) 21 U/L (15-37); Alanine Aminotransfer ALT/SGPT 36 U/L (16-61); Albumin, Serum 3.9 g/dL (3.2-5.0); Alkaline Phosphatase 93 U/L (45-117); Anion Gap 6 (5-15); BUN 64 mg/dL (7-18); Chloride 110 mmol/L (98-107); Creatinine, Serum 2.46 mg/dL (0.70-1.30); EST Glomerular Filtration Rate 27 mL/min (>60); Est Glom Filt Rate - Afr Amer 32 mL/min (>60); Ferritin 128 ng/mL (26-388); Globulin 3.7 g/dL (2.2-4.2); Glucose 106 mg/dL (74-106); Iron 62 ug/dL (65-175); Iron Binding Capacity,Total 273 ug/dL (250-450); PERCENT IRON SATURATION 22.7 % (15.0-55.0); Phosphorus 3.3 mg/dL (2.5-4.9); Protein, Total 7.6 g/dL (6.4-8.2); Sodium Level 142 mmol/L (136-145)
== END | disposition home or self-care (01) ==
LOC: LAB 12:01
PROVIDERS: PCP Family Medicine; Referring Provider Internal Medicine Nephrology; Visit Provider Internal Medicine Nephrology
DX: N17.9 Acute kidney failure, unspecified (principal); D50.9 Iron deficiency anemia, unspecified
CPT/HCPCS: 36415; 80053; 82728; 83540; 83550; 84100; 85025

== ENCOUNTER → 2024-03-08 | Outpatient (CLI) | payer MEDICARE, OTHER, SELFPAY ==
[2024-03-08 13:12] LABS: Anion Gap 6 (5-15); BUN 67 mg/dL (7-18); Calcium,Total 9.3 mg/dL (8.5-10.1); Chloride 112 mmol/L (98-107); Creatinine, Serum 2.39 mg/dL (0.70-1.30); EST Glomerular Filtration Rate 27 mL/min (>60); Est Glom Filt Rate - Afr Amer 33 mL/min (>60); Glucose 147 mg/dL (74-106); Potassium 3.8 mmol/L (3.5-5.1); Sodium Level 140 mmol/L (136-145)
== END | disposition home or self-care (01) ==
LOC: LAB.FUTURE 11:30
PROVIDERS: PCP Family Medicine; Referring Provider Internal Medicine Nephrology; Visit Provider Internal Medicine Nephrology
DX: E87.6 Hypokalemia (principal)
CPT/HCPCS: 36415; 80048

== ENCOUNTER → 2024-05-10 | Outpatient (CLI) | payer MEDICARE, OTHER, SELFPAY ==
[2024-05-12 14:10] LABS: Endomysial Antibody IgA Negative (Negative); Immunoglobulin A 224 mg/dL (61-437); t-Transglutaminase IgA <2 U/mL (0-3)
== END | disposition home or self-care (01) ==
LOC: MTLAB 14:40
PROVIDERS: PCP Family Medicine; Referring Provider Internal Medicine Gastroenterology; Visit Provider Internal Medicine Gastroenterology
DX: R19.7 Diarrhea, unspecified (principal)
CPT/HCPCS: 36415; 82784; 83516; 86140; 86255

== ENCOUNTER → 2024-05-11 | Outpatient (CLI) | payer MEDICARE, OTHER, SELFPAY ==
[2024-05-16 16:10] LABS: Pancreatic Elastase, Fecal 517 (>200)
[2024-05-19 22:07] LABS: Calprotectin, Stool 98 ug/g (0-120); Fats, Neutral Normal (.); Fats, Total Normal (.)
== END | disposition home or self-care (01) ==
PROVIDERS: PCP Family Medicine; Referring Provider Internal Medicine Gastroenterology; Visit Provider Internal Medicine Gastroenterology
DX: R19.7 Diarrhea, unspecified (principal)
CPT/HCPCS: 82653; 82705; 83993

== ENCOUNTER → 2024-05-25 | Outpatient (CLI) | payer MEDICARE, OTHER, SELFPAY ==
--- NOTE | 2024-05-25 10:45 | RAD_ITS ---
PROCEDURE: SMALL BOWEL SERIES DATE OF EXAMINATION: May 25, 2024.. INDICATION: Male, 88 years old. 6 month history of diarrhea. PHYSICIAN: Michael Soriano M.D. FLUOROSCOPY TIME (if supplied): (1:06) minutes/seconds. 51.8 mGy. TECHNIQUE: Radiographic and fluoroscopic images were taken of the small intestine following the ingestion of barium. COMPARISON: None. FINDINGS: A preliminary supine KUB was obtained. There is an unremarkable bowel gas pattern. Fecal material is present throughout the colon. Phleboliths are present within the pelvis. The lung bases are unremarkable. Degenerative changes of the lumbar spine. The patient orally ingested approximately 12 ounces of thin barium Normal visualized fundus, body, and antrum of the stomach. Normal duodenal bulb, C-loop, and proximal jejunum. There is a 2.5 cm diverticulum at the origin of the third portion of the duodenum. Normal visualized mucosal folds of the jejunum and ileum. There are no demonstrated dilatations, strictures, or masses of the small intestine. There is no mass displacement of the loops of small intestine. There is a normal motor pattern with barium reaching the colon within approximately 60 minutes. Spot films under fluoroscopic observation demonstrated a normal terminal ileum and ileocecal valve. RAD/Small Bowel Series Only IMPRESSION: Normal small bowel series. Incidental note is made of a 2.5 cm diverticulum at the origin of the third portion of the duodenum. Electronically Signed: Michael Soriano MD at 12:20 EDT ,
== END | disposition home or self-care (01) ==
LOC: RAD 07:54
PROVIDERS: PCP Family Medicine; Referring Provider Internal Medicine Gastroenterology; Visit Provider Internal Medicine Gastroenterology
DX: R19.7 Diarrhea, unspecified (principal)
CPT/HCPCS: 74250

== ENCOUNTER 2024-06-08 13:00 | Emergency (ER) | payer MEDICARE, OTHER, SELFPAY ==
[2024-06-08 13:01] VITALS: BP 124/68; PULSE 97; RESP 14; TEMP 36.2; O2SAT 98; BMI 20.2
--- NOTE | 2024-06-08 13:14 | EKG12_ITS ---
Test Reason : HIGH K Blood Pressure : / mmHG Vent. Rate : 095 BPM Atrial Rate : 094 BPM P-R Int : 000 ms QRS Dur : 206 ms QT Int : 476 ms P-R-T Axes : 000 -59 099 degrees QTc Int : 598 ms Ventricular-paced rhythm Abnormal ECG Confirmed by Jose Soto ([id number]), international editorial producer SHANELL HUFFMAN ([id number]) on 06/12/2024 8:56:34 AM Referred By: Confirmed By:Jose Soto
--- NOTE | 2024-06-08 13:18 | EDS_ITS ---
HPI History of Present Illness Chief Complaint: Abn Labs Detail of Chief Complaint: Sent in for evaluation for acute hyperkalemia. Informant: patient and spouse/S.O. Onset/Context/Timing Onset: Today Current Severity: Mild Maximum Severity: Mild Narrative Narrative: 88-year-old male history of anemia and sees Dr. Trivedi of hematology. Also hi story of atrial flutter, chronic kidney disease, ischemic cardiomyopathy, pacemaker, CABG and on the blood thinner Eliquis. 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 And assume the ER for evaluation. He denies any complaints has had some recent mild diarrhea. He denies being on any potassium supplementation at home. No recent med changes. Prior similar symptoms: No Recent Illness/Hospitalization: No [facility] Medical History Atrial flutter Chronic kidney disease (CKD) Kidney disease, chronic, stage III (GFR 30-59 ml/min) Chest pain Hypoxemia Pneumonia of both lower lobes GERD (gastroesophageal reflux disease) COVID-19 Ischemic cardiomyopathy Carotid artery disease Chronic kidney disease (CKD) Paroxysmal atrial fibrillation Sick sinus syndrome Atherosclerosis of [place] coronary artery of [place] heart without angina pectoris Brain bleed Congestive heart failure Acute electrocardiogram changes Home Medications ?Medication ?Instructions ?Recorded ?Last Taken ?Type allopurinol 100 mg tablet 100 mg PO BID Gout 11/24/18 11/27/23 History atorvastatin 40 mg tablet 40 mg PO QHS Cholesterol 11/24/18 11/26/23 History albuterol sulfate 90 mcg/actuation 2 puff inhalation Q4H PRN 12/25/20 Unknown Rx aerosol inhaler shortness of breath or wheezing #8.5 grams cholecalciferol (vitamin D3) 50 50 mcg PO DAILY bone health #1 TAB 03/09/22 11/17/23 Rx mcg (2,000 unit) tablet coenzyme Q10 100 mg tablet 100 mg PO DAILY general 09/24/22 11/16/23 History nitroglycerin 0.4 mg sublingual 0.4 mg sublingual Q5M PRN 09/02/23 Unknown Rx tablet Cardiac/Chest Pain #30 tabs apixaban 2.5 mg tablet 2.5 mg PO BID Blood thinner #180 09/30/23 11/27/23 Rx tabs carvedilol 25 mg tablet 25 mg PO DAILY blood pressure 02/22/24 Unknown History ascorbic acid (vitamin C) 500 mg 500 mg PO DAILY 05/31/24 Unknown History tablet furosemide 40 mg tablet 40 mg PO DAILY PRN 05/31/24 Unknown History mecobalamin (vitamin B12) 1,000 1,000 mcg sublingual DAILY 05/31/24 Unknown History mcg disintegrating tablet,sublingual potassium chloride 20 mEq 20 meq PO DAILY 05/31/24 Unknown History tablet,extended release pyridoxine (vitamin B6) 100 mg 100 mg PO DAILY 05/31/24 Unknown History tablet sacubitril 49 mg-valsartan 51 mg 1 tab PO BID 05/31/24 Unknown History tablet (Entresto) zinc gluconate 50 mg tablet 50 mg PO DAILY 05/31/24 Unknown History Allergy/AdvReac Type Severity Reaction Status Date / Time levofloxacin (From Levaquin) Allergy Unknown unknown Verified 06/08/24 13:01 Family History Father CAD (coronary artery disease) Surgical History History of craniotomy History of permanent cardiac pacemaker placement History of coronary artery bypass graft x 3 History of brain surgery Social History household members: spouse Smoking Status: Never smoker alcohol intake: never substance use type: does not use caffeine: No ROS ROS ED ROS Narrative Loose stools. Denies other complaints. Constitutional Constitutional ED: Denies fever(s) Eyes Eyes: Denies blurry vision ENT ENT ED: Denies ear pain Cardiovascular Cardiovascular: Denies chest pain Respiratory/Chest Respiratory/Chest: Denies cough or dyspnea Gastrointestinal Gastrointestinal: Reports diarrhea; Denies abdominal pain Genitourinary Genitourinary ED: Denies dysuria or hematuria Musculoskeletal Musculoskeletal: Denies arthralgias or back pain Integumentary Denies abscess or Abrasions Neurologic Neurologic: Denies headache(s) Psychiatric Psychiatric: Denies anxiety Endocrine Endocrinology: Denies cold intolerance Hematologic/Lymphatic Hematologic/Lymphatic: Reports anemia Allergic/Immunologic Allergic/Immunologic ED: Denies mouth swelling, tongue swelling or urticaria EXAM Physical Exam Narrative Exam Narrative: 88-year-old male no acute distress vital signs stable afebrile. at bedside. H EENT exam unremarkable. Lungs clear. Heart regular rhythm no murmur. Abdomen soft nontender. Moving all 4 extremities. Trace edema at the ankles. Neurologically is awake and alert. Answering questions following commands. No focal motor deficits. Const Vital Signs: 06/08/24 13:01 06/08/24 13:29 06/08/24 13:50 Temperature 97.1 F L Temperature Source Temporal Pulse Rate 97 97 Respiratory Rate 14 16 Respiratory Effort Normal Respiratory Pattern Normal Normal Blood Pressure 124/68 H Blood Pressure Mean 86 Pulse Ox 98 Oxygen Delivery Method Room Air 06/08/24 15:01 Temperature Temperature Source Pulse Rate 61 Respiratory Rate 22 H Respiratory Effort Respiratory Pattern Blood Pressure 117/61 Blood Pressure Mean 79 Pulse Ox 97 Oxygen Delivery Method Room Air Positive well nourished and well developed; Negative for obese, cachectic, contractures or unkempt General Appearance ED: well developed and NAD; Negative for unkempt, cachectic, contractures, cyanotic, diaphoretic or pallor Nutritional Appearance: Negative for cachectic or obese HEENT Reports moist mucous membranes; Denies dry mucous membranes Negative for trauma or tenderness Mouth ED: No dry mucous membranes Mouth: No dry mucous membranes Eyes PERRL and EOMs intact bilaterally General Eye ED: Negative for pale conjunctiva, scleral icterus or other Neck no lymphadenopathy, supple and no JVD General: Negative for tenderness or other Lymph Lymphatic: Negative for other Chest Wall inspection of chest normal and palpation of chest normal Chest: Negative for other Resp normal respiratory effort and clear to auscultation bilaterally Effort and Inspection: Negative for retractions Auscultation: Negative for rales, rhonchi, wheezes or diminished lung sounds Cardio regular rate, regular rhythm, S1 normal heart sound, S2 normal heart sound and no murmurs Palpation: Negative for palpable S3 Rate: Negative for bradycardia Rhythm: Negative for abnormal rhythm GI normal to inspection, nondistended, normoactive bowel sounds, non-tender, non- distended and no masses Inspection: Negative for abdominal distention Auscultation: normoactive bowel sounds Palpation: soft; Negative for tender or guarding Back/Spine no CVA tenderness General Back: Negative for CVA tenderness Cervical Spine: Negative for cervical spine tenderness Thoracic Spine / Upper Back: Negative for thoracic spinal tenderness Lumbar Spine / Lower Back: Negative for lumbar spinal tenderness Extremity normal to inspection General Extremety ED: Negative for edema or tenderness General Extremity: Negative for edema Neuro oriented x3 and CN's II-XII intact bilaterally Sensorium / Orientation: alert; Negative for orientation impaired, lethargic or stuporous Motor Exam: strength 5/5 throughout Psych mental status grossly normal Appearance: Negative for unkempt Attitude: No agitated Mood & Affect: Negative for depressed, anxious or tearful Skin no rashes or lesions noted, no wounds and skin turgor normal General Skin Exam: Negative for jaundice or pallor Lesions: No lesion noted Rashes: No rashes noted Trauma: Negative for abrasion Wounds: Negative for wounds noted MDM MDM MDM Narrative Medical decision making narrative: 88-year-old male history of anemia and chronic kidney disease. Acutely hyperkalemic today on outpatient labs x 2. He will be treated for acute hyperkalemia with an EKG and labs he will be given calcium gluconate, dextrose and IV insulin and his blood sugar be reassessed. He has chronic kidney disease but has never had hyperkalemia before and he is aware of. His kidney disease is his baseline. Repeat exam patient is doing well at 4:20 PM. His repeat potassium an hour after his last treatment was already down to 5.3. He is having no other symptoms. He is comfortable being discharged home with outpatient follow-up and a repeat potassium level no later than Wednesday. He knows return if he is feeling worse. We talked about avoiding potassium rich foods. Obviously no multivitamins or potassium supplements. History & Record Review Discussion w/independent historian: Patient and Family Lab Data Attestation: I reviewed the patient's lab results. Lab results narrative: CBC shows a white count of 5.1. H&H 9.5 and 30.6 which is his baseline chronic anemia. Platelets 137. Potassium level was 5.9 pretreatment. Posttreatment 1 hour later was 5.3. Labs: Laboratory Results - last 24 hr 06/08/24 06/08/24 13:23 15:00 WBC 5.1 RBC 2.90 L Hgb 9.5 L Hct 30.6 L MCV 105.5 H MCH 32.8 H MCHC 31.0 L RDW Std Deviation 59.7 H RDW Coeff of Vanesa 15.5 H Plt Count 137 L MPV 10.5 Immature Gran % (Auto) 0.200 Neut % (Auto) 66.7 Lymph % (Auto) 17.9 L [place] % (Auto) 8.4 Eos % (Auto) 6.0 H Baso % (Auto) 0.8 Absolute Neuts (auto) 3.4 Absolute Lymphs (auto) 0.92 Nucleated RBC % 0 Potassium 5.3 H Rhythm Strip Rhythm Strip: paced Rate: 95 Ectopy: None EKG Initial EKG: Attestation: I personally reviewed and interpreted this EKG as follows: Interpretation: Paced Comments: Paced rhythm rate of 95. Discharge Plan Triage Chief Complaint: Abn Labs ED Provider: Alex Covarrubias Dx/Rx/DC Orders Clinical Impression: Acute hyperkalemia, Chronic kidney disease, History of cardiomyopathy, History of pacemaker Instructions: Hyperkalemia Dc Prescriptions: No Action albuterol sulfate 90 mcg/actuation HFA aerosol inhaler 2 puff INHALATION Q4H PRN (Reason: shortness of breath or wheezing) Qty: 8.5 6RF Rx Instructions: administer with spacer coenzyme Q10 100 mg tablet 100 mg PO DAILY Rx Instructions: pt takes in the am furosemide 40 mg tablet 40 mg PO DAILY PRN ascorbic acid (vitamin C) 500 mg tablet 500 mg PO DAILY zinc gluconate 50 mg tablet 50 mg PO DAILY pyridoxine (vitamin B6) 100 mg tablet 100 mg PO DAILY potassium chloride 20 mEq tablet extended release 20 meq PO DAILY mecobalamin (vitamin B12) 1,000 mcg tablet,disintegrating 1,000 mcg sublingual DAILY Rx Instructions: place tablet under tongue and allow to dissolve for at least30 secs before swallowing Entresto 49-51 mg tablet 1 tab PO BID atorvastatin 40 MG tablet 40 mg PO QHS allopurinol 100 MG tablet 100 mg PO BID carvedilol 25 mg tablet 25 mg PO DAILY Rx Instructions: must administer with a meal/food cholecalciferol (vitamin D3) 50 mcg (2,000 unit) tablet 50 mcg PO DAILY Qty: 1 0RF nitroglycerin 0.4 mg tablet, sublingual 0.4 mg sublingual Q5M PRN (Reason: Cardiac/Chest Pain) Qty: 30 2RF apixaban 2.5 mg tablet 2.5 mg PO BID Qty: 180 4RF Primary Care Provider: Cheli Grace Referrals: Cheli Grace MD [Primary Care Provider] - 3-5 Days Activity Restrictions/Additional Instructions: Follow-up with one of your doctors no later than Wednesday to get a repeat potassium level done. To make sure it is not getting high again. Avoid multivitamins. Avoid potassium rich fruits and vegetables. Return if feeling worse. Print Language: Romanian Disposition Disposition: Home, Self Care
[2024-06-08] MEDS: Albuterol *CONC* 2.5mg/0.5mL VIAL.NEB. 10 MG INHALATION (13:26)
[2024-06-08 13:31] LABS: Absolute Lymphocyte Count 0.92 X10^3/uL (0.83-4.51); Absolute Neutrophil Count 3.4 X10^3/uL (2.0-7.7); Basophil# 0.04 X10^3/uL; Basophil% 0.8 % (0-1); Eosinophil# 0.31 X10^3/uL; Hematocrit 30.6 % (40-54); Hemoglobin 9.5 g/dL (13.0-16.5); Lymphocyte # 0.92 X10^3/ul (0.83-4.51); Lymphocyte % 17.9 % (19-41); Mean Corpuscular Hgb 32.8 pg (27.0-32.0); Mean Corpuscular Volume 105.5 fL (80-94); Mean Platelet Vol. 10.5 fl (6.2-12.0); Monocyte# 0.43 X10^3/uL; Monocyte% 8.4 % (0-10); NRBC Flagged by Analyzer 0 % (0-5); Neutrophil # 3.42 X10^3/uL (2.7-7.7); Neutrophil % 66.7 % (47-70); Platelet Count 137 K/mm3 (150-450); RBC Distribution Width CV 15.5 % (11.6-14.6); RBC Distribution Width SD 59.7 fl (35.1-43.9); White Blood Count 5.1 K/mm3 (4.4-11.0)
[2024-06-08 13:50] VITALS: PULSE 97; RESP 16
[2024-06-08] MEDS: Insulin Lispro 10 UNIT in Syringe 0 ML 6 UNIT IV (13:54)
[2024-06-08] MEDS: Calcium Gluconate IV 3 GM in Syringe 1 EACH IV (13:54)
[2024-06-08] MEDS: Dextrose 10%-Water 250 ML 999 ML IV (13:54)
[2024-06-08 15:01] VITALS: BP 117/61; PULSE 61; RESP 22; O2SAT 97
[2024-06-08 15:24] LABS: Potassium 5.3 mmol/L (3.5-5.1)
[2024-06-08 16:35] VITALS: BP 112/65; PULSE 64; RESP 20; TEMP 36.6; O2SAT 98
== END 2024-06-08 16:36 | disposition home or self-care (01) ==
PROVIDERS: Emergency Provider Emergency Medicine; PCP Family Medicine; Visit Provider Emergency Medicine
DX: E87.5 Hyperkalemia (principal); N18.4 Chronic kidney disease, stage 4 (severe); I50.9 Heart failure, unspecified; I48.0 Paroxysmal atrial fibrillation; I42.9 Cardiomyopathy, unspecified; I25.10 Atherosclerotic heart disease of native coronary artery without angina pectoris; Z95.0 Presence of cardiac pacemaker; Z79.899 Other long term (current) drug therapy; Z79.01 Long term (current) use of anticoagulants; Z95.1 Presence of aortocoronary bypass graft; D63.1 Anemia in chronic kidney disease
CPT/HCPCS: 36415; 80053; 83630; 84132; 85025; 87493; 93005; 94640; 96374; 96375; 99283; A4216; J0612

== ENCOUNTER → 2024-06-12 | Outpatient (CLI) | payer MEDICARE, OTHER, SELFPAY ==
[2024-06-12 15:21] LABS: Anion Gap 5 (5-15); BUN 55 mg/dL (7-18); BUN/Creat Ratio 23.3 RATIO (10-20); Chloride 118 mmol/L (98-107); Creatinine, Serum 2.36 mg/dL (0.70-1.30); EST Glomerular Filtration Rate 28 mL/min (>60); Est Glom Filt Rate - Afr Amer 34 mL/min (>60); Glucose 102 mg/dL (74-106); Potassium 5.1 mmol/L (3.5-5.1); Sodium Level 140 mmol/L (136-145)
== END | disposition home or self-care (01) ==
LOC: MTLAB 11:01
PROVIDERS: PCP Family Medicine; Referring Provider Family Medicine; Visit Provider Family Medicine
DX: E87.6 Hypokalemia (principal)
CPT/HCPCS: 36415; 80048

== ENCOUNTER → 2024-07-05 | Outpatient (CLI) | payer MEDICARE, OTHER, SELFPAY ==
[2024-07-05 14:55] LABS: Hematocrit 32.2 % (40-54); Mean Corp Hgb Conc 31.1 g/dL (32-36); Mean Corpuscular Hgb 34.1 pg (27.0-32.0); Mean Corpuscular Volume 109.9 fL (80-94); POSITIVE MORPHOLOGY YES; Platelet Count 158 K/mm3 (150-450); RBC Distribution Width CV 18.6 % (11.6-14.6); RBC Distribution Width SD 74.6 fl (35.1-43.9); Red Blood Count 2.93 M/mm3 (4.6-6.2); White Blood Count 3.8 K/mm3 (4.4-11.0)
[2024-07-05 15:10] LABS: Scan Indicated on CBC? Y/N YES- FLAGS NOTED
[2024-07-05 15:25] LABS: Albumin, Serum 3.8 g/dL (3.2-5.0); BUN 42 mg/dL (7-18); BUN/Creat Ratio 21.5 RATIO (10-20); Calcium,Total 9.3 mg/dL (8.5-10.1); Chloride 109 mmol/L (98-107); Creatinine, Serum 1.95 mg/dL (0.70-1.30); EST Glomerular Filtration Rate 35 mL/min (>60); Est Glom Filt Rate - Afr Amer 42 mL/min (>60); Ferritin 111 ng/mL (26-388); Glucose 103 mg/dL (74-106); Iron 61 ug/dL (65-175); Iron Binding Capacity,Total 269 ug/dL (250-450); PERCENT IRON SATURATION 22.7 % (15.0-55.0); Phosphorus 3.7 mg/dL (2.5-4.9); Potassium 3.4 mmol/L (3.5-5.1); Sodium Level 144 mmol/L (136-145)
[2024-07-05 15:53] LABS: Differential Comment SCANNED
== END | disposition home or self-care (01) ==
LOC: LAB 14:06
PROVIDERS: PCP Family Medicine; Referring Provider Internal Medicine Nephrology; Visit Provider Internal Medicine Nephrology
DX: N18.4 Chronic kidney disease, stage 4 (severe) (principal); D50.9 Iron deficiency anemia, unspecified
CPT/HCPCS: 36415; 80069; 82728; 83540; 83550; 85027

== ENCOUNTER → 2024-07-13 | Outpatient (CLI) | payer MEDICARE, OTHER, SELFPAY ==
[2024-07-13 12:02] LABS: AST(SGOT) 19 U/L (15-37); Alanine Aminotransfer ALT/SGPT 32 U/L (16-61); Albumin, Serum 3.9 g/dL (3.2-5.0); Alkaline Phosphatase 104 U/L (45-117); Bilirubin, Direct 0.35 mg/dL (0.00-0.30); Cholesterol 107 mg/dL (200); Globulin 3.5 g/dL (2.2-4.2); High Density Lipoprotein 39 mg/dL; Protein, Total 7.4 g/dL (6.4-8.2); Triglycerides 64 mg/dL; Very Low Density Lipoprotein 13 mg/dL (5-40)
== END | disposition home or self-care (01) ==
LOC: LAB 10:29
PROVIDERS: PCP Family Medicine; Referring Provider Nurse Practitioner Gerontology; Visit Provider Nurse Practitioner Gerontology
DX: E78.00 Pure hypercholesterolemia, unspecified (principal); E87.5 Hyperkalemia; D64.9 Anemia, unspecified
CPT/HCPCS: 36415; 80061; 80076

== ENCOUNTER 2024-07-15 16:00 | Inpatient (IN) | payer MEDICARE, OTHER, SELFPAY ==
[2024-07-15] VITALS (8 sets, daily range): BP systolic 137–177; BP diastolic 73–110; PULSE 60–101; RESP 14–26; TEMP 35.6–36.8; O2SAT 93–95; BMI 20.9; BMI 19.9
--- NOTE | 2024-07-15 16:13 | EKG12_ITS ---
Test Reason : cp Blood Pressure : / mmHG Vent. Rate : 090 BPM Atrial Rate : 000 BPM P-R Int : 000 ms QRS Dur : 106 ms QT Int : 396 ms P-R-T Axes : 000 -27 -88 degrees QTc Int : 484 ms ATRIAL FLUTTER with frequent ventricular-paced complexes NS ST & WAVE ABNORMALITY Abnormal ECG Confirmed by Jose Soto ([id number]), makeup editor CODY MCLEAN ([id number]) on 07/17/2024 10:59:10 AM Referred By: Confirmed By:Jose Soto
--- NOTE | 2024-07-15 16:15 | EDS_ITS ---
HPI History of Present Illness Chief Complaint: Chest Pain Detail of Chief Complaint: Chief complaint is shortness of breath and not chest discomfort Informant: patient and spouse/S.O. Onset/Context/Timing Onset: Days (Onset a couple of days ago worse today) Context: Gradual Onset Timing: Continuous Quality: Dyspnea and dyspnea on exertion Location: Patient believes he is in heart failure Current Severity: Mild Maximum Severity: Moderate Worsened by: Activity Relieved by: Nothing Associated Symptoms Associated Symptoms: Approximately a 1 pound weight gain over the past couple of days Narrative Narrative: Patient is an 88-year-old male. He has history of coronary disease status post two-vessel bypass surgery approximately 35 years ago. He has no stents. He also has history of chronic kidney disease, anemia, hyperlipidemia, diastolic dysfunction, paroxysmal atrial fibrillation and pacemaker who presents with gradual worsening of shortness of breath starting a couple to several days ago. He does have orthopnea. His orthopnea has not gotten worse. His pedal edema has not gotten worse. He denies chest pressure, tightness, heaviness or pain of any description. He reports hide I am having trouble breathing and I think my lungs are filled up. He states this has happened before. He reports compliance with his medication. He denies fever, chills night sweats. He denies upper respiratory tract infectious symptoms. He denies GI symptoms. He denies urologic symptoms. Prior similar symptoms: Yes (Congestive heart failure) Recent Illness/Hospitalization: No [facility] History Atrial flutter Chronic kidney disease (CKD) Kidney disease, chronic, stage III (GFR 30-59 ml/min) Chest pain Hypoxemia Pneumonia of both lower lobes GERD (gastroesophageal reflux disease) COVID-19 Ischemic cardiomyopathy Carotid artery disease Chronic kidney disease (CKD) Paroxysmal atrial fibrillation Sick sinus syndrome Atherosclerosis of [place] coronary artery of [place] heart without angina pectoris Brain bleed Congestive heart failure Acute electrocardiogram changes Home Medications ?Medication ?Instructions ?Recorded ?Last Taken ?Type allopurinol 100 mg tablet 100 mg PO BID Gout 11/24/18 11/27/23 History atorvastatin 40 mg tablet 40 mg PO QHS Cholesterol 11/24/18 11/26/23 History albuterol sulfate 90 mcg/actuation 2 puff inhalation Q4H PRN 12/25/20 Unknown Rx aerosol inhaler shortness of breath or wheezing #8.5 grams cholecalciferol (vitamin D3) 50 50 mcg PO DAILY bone health #1 TAB 03/09/22 11/17/23 Rx mcg (2,000 unit) tablet coenzyme Q10 100 mg tablet 100 mg PO DAILY general 09/24/22 11/16/23 History nitroglycerin 0.4 mg sublingual 0.4 mg sublingual Q5M PRN 09/02/23 Unknown Rx tablet Cardiac/Chest Pain #30 tabs apixaban 2.5 mg tablet 2.5 mg PO BID Blood thinner #180 09/30/23 11/27/23 Rx tabs ascorbic acid (vitamin C) 500 mg 500 mg PO DAILY 05/31/24 Unknown History tablet furosemide 40 mg tablet 40 mg PO DAILY PRN edema 05/31/24 Unknown History mecobalamin (vitamin B12) 1,000 1,000 mcg sublingual DAILY 05/31/24 Unknown History mcg disintegrating tablet,sublingual potassium chloride 20 mEq 20 meq PO DAILY 05/31/24 Unknown History tablet,extended release pyridoxine (vitamin B6) 100 mg 100 mg PO DAILY 05/31/24 Unknown History tablet sacubitril 49 mg-valsartan 51 mg 1 tab PO BID 05/31/24 Unknown History tablet (Entresto) zinc gluconate 50 mg tablet 50 mg PO DAILY 05/31/24 Unknown History carvedilol 25 mg tablet 25 mg PO QHS 07/15/24 Unknown History ferrous sulfate 325 mg (65 mg 325 mg PO DAILY 07/15/24 Unknown History iron) tablet,delayed release Allergy/AdvReac Type Severity Reaction Status Date / Time levofloxacin (From Levaquin) Allergy Unknown unknown Verified 07/15/24 16:01 Family History Father CAD (coronary artery disease) Surgical History History of craniotomy History of permanent cardiac pacemaker placement History of coronary artery bypass graft x 3 History of brain surgery Social History household members: spouse Smoking Status: Never smoker alcohol intake: never substance use type: does not use caffeine: No ROS ROS ED Constitutional Constitutional ED: Denies chills, fever(s), subjective, sweats or weight loss Eyes Eyes: Denies change in vision ENT ENT ED: Denies rhinorrhea or sore throat Cardiovascular Cardiovascular: Reports orthopnea; Denies chest pain, palpitations, paroxysmal nocturnal dyspnea or racing heartbeat Respiratory/Chest Respiratory/Chest: Reports dyspnea, dyspnea on exertion and orthopnea; Denies cough or paroxysmal nocturnal dyspnea Gastrointestinal Gastrointestinal: Denies abdominal pain, melena, nausea or vomiting Genitourinary Genitourinary ED: Denies dysuria, hematuria or urinary frequency Musculoskeletal Musculoskeletal: Denies arthralgias or myalgias Integumentary Denies rash Neurologic Neurologic: Denies paresthesias or weakness Endocrine Endocrinology: Denies cold intolerance or heat intolerance Hematologic/Lymphatic Hematologic/Lymphatic: Reports systems reviewed and no addt'l complaints, except as documented EXAM Physical Exam Const Vital Signs: 07/15/24 16:00 07/15/24 16:06 07/15/24 17:00 Temperature 98.2 F Temperature Source Oral Pulse Rate 85 60 Respiratory Rate 20 H 14 Respiratory Effort Short of Breath Blood Pressure 137/79 H 142/73 H Blood Pressure Mean 98 96 Pulse Ox 95 93 Oxygen Delivery Method Room Air Room Air 07/15/24 18:00 07/15/24 18:45 07/15/24 19:00 Temperature Temperature Source Pulse Rate 101 H 64 67 Respiratory Rate 24 H 26 H 15 Respiratory Effort Blood Pressure 142/102 H 156/85 H 155/79 H Blood Pressure Mean 115 106 103 Pulse Ox 93 94 93 Oxygen Delivery Method Room Air 07/15/24 20:00 07/15/24 20:02 Temperature 97 F L Temperature Source Pulse Rate 61 61 Respiratory Rate 22 H 22 H Respiratory Effort Blood Pressure 161/82 H 161/82 H Blood Pressure Mean 108 108 Pulse Ox 93 93 Oxygen Delivery Method Room Air Positive well nourished and well developed Constitutional Narrative: Patient in my opinion is tachypneic and breathing is more rapid than 20 a minute. General Appearance ED: well developed and pallor; Negative for cyanotic or diaphoretic HEENT Reports moist mucous membranes HEENT Narrative: Head is atraumatic and normocephalic. Ears normal. Nares patent. Posterior pharynx is normal. Eyes PERRL and EOMs intact bilaterally General Eye ED: Negative for pale conjunctiva or scleral icterus Neck no lymphadenopathy, supple and No no JVD Neck Narrative: Patient has JVD to the angle of mandible at 80 degrees. Chest Wall inspection of chest normal and palpation of chest normal Chest Narrative: Pacemaker noted left side. Resp No normal respiratory effort and No clear to auscultation bilaterally Resp Narrative: Patient has coarse breath sounds on the left compared to the right. Auscultation: rales right base (Bilaterally) and diminished lung sounds left lower Cardio regular rate and no murmurs; Negative for S1 normal heart sound or S2 normal heart sound Rhythm: abnormal rhythm irregularly irregular GI normal to inspection, nondistended, normoactive bowel sounds, non-tender and non-distended; Negative for hepatosplenomegaly or no masses GI Narrative: There is no palpable pulsatile mass. There is no abdominal bruit. Back/Spine no CVA tenderness Thoracic Spine / Upper Back: Negative for thoracic spinal tenderness Lumbar Spine / Lower Back: Negative for lumbar spinal tenderness Extremity Extremity Narrative: Patient's skin appears pale. General Extremety ED: Yes edema General Extremity: edema Neuro oriented x3 and CN's II-XII intact bilaterally Sensorium / Orientation: alert Psych mental status grossly normal Skin no rashes or lesions noted, no wounds and No skin turgor normal General Skin Exam: pallor; Negative for elasticity normal or jaundice MDM MDM MDM Narrative Medical decision making narrative: Differential diagnosis is exacerbation CHF, pneumonia, pneumothorax, viral infection cardiac ischemia. EKG, chest x-ray troponin with 2-hour troponin as well as electrolytes and CBC was obtained. CBC to assess H&H and rule out anemia since he appears pale. Basic metabolic panel to assess renal function since there is a history of chronic kidney disease and if there is worsening renal failure this may be the cause of his fluid overload state. History & Record Review Additional record(s) reviewed:: Prior outpatient record, Prior ED visit and Prior labs Lab Data Attestation: I reviewed the patient's lab results. Lab results narrative: CBC reveals mild anemia with MCV of 107.2. Electrolyte panel is remarkable for elevated BUN/creatinine of 40 and 2.04. Estimated GFR 33. First troponin was 47-second was 46 with a delta of -1. Labs: Laboratory Results - last 24 hr 07/15/24 07/15/24 16:15 18:20 WBC 4.4 RBC 3.19 L Hgb 10.8 L Hct 34.2 L MCV 107.2 H MCH 33.9 H MCHC 31.6 L RDW Std Deviation 69.0 H RDW Coeff of [place] 17.3 H Plt Count 142 L MPV 10.7 Immature Gran % (Auto) 0.200 Neut % (Auto) 70.0 Lymph % (Auto) 16.4 L [place] % (Auto) 7.7 Eos % (Auto) 5.0 Baso % (Auto) 0.7 Absolute Neuts (auto) 3.1 Absolute Lymphs (auto) 0.72 L Nucleated RBC % 0 Differential Comment SCANNED Anisocytosis 1+ Crenated Cell 1+ Sodium 143 Potassium 3.3 L Chloride 113 H Carbon Dioxide 21.0 Anion Gap 9 BUN 40 H Creatinine 2.04 H Estim Creat Clear Calc 23.95 Est GFR (MDRD) Af Amer 40 L Est GFR (MDRD) Non-Af 33 L BUN/Creatinine Ratio 19.6 Glucose 144 H Calcium 9.0 Troponin I High Sens 47 46 Radiography Chest X-Ray - ED: 2 View and Read by ED Physician (2 view chest x-ray was reviewed. Patient has bilateral pleural effusion left greater than right. There is evidence of cephalization congestion consistent with congestive heart failure. There is cardiomegaly. Dual-chamber pacemaker noted as well. 1633) Diagnostic Testing: Clinical Impression(s) from Imaging Studies Chest X-Ray 07/15/24 16:20 IMPRESSION: Mild congestive heart failure with small bilateral pleural effusions. Electronically Signed: Myles Carias MD at 17:02 EDT , EKG Initial EKG: Attestation: I personally reviewed and interpreted this EKG as follows: Interpretation: Atrial Fibrillation (Atrial fibrillation with frequent paced ventricular beats noted. Rate is 90. QRS duration 106 ms. QT durations under 96 ms. [place] is normal. There is significant artifact noted. Difficult to determine if there is or is not any acute ischemia.) Management Discussion w/another healthcare provider: Hospitalist (Case discussed with hospitalist, Dr. tSephanie Acosta. Patient is a full admit to PCU) Treatment and Re-Evaluation :: Patient had significant diuresis after receiving 60 mg of Lasix. With minimal activity becomes quite tachypneic and sat drops to 91%. Will call hospitalist for admission for exacerbation of CHF. Discharge Plan Dx/Rx/DC Orders Clinical Impression: Acute exacerbation of CHF (congestive heart failure), Paroxysmal atrial fibrillation, Hyperlipidemia, Anemia in chronic kidney disease (CKD), Bilateral pleural effusion, Pacemaker Disposition Disposition: Acute Care Hospital [facility]
--- NOTE | 2024-07-15 16:20 | RAD_ITS ---
STUDY: X-RAY CHEST REASON FOR EXAM: Male, 88 years old. Dyspnea, [place], Bibasilar rales, lymphedema TECHNIQUE: PA and lateral views of the chest. COMPARISON: 11/29/2023 FINDINGS: Left subclavian pacemaker which is unchanged. Status post median sternotomy. The lungs are clear and expanded. No change in the small bilateral pleural effusions. Elevated right hemidiaphragm which is unchanged. There is moderate cardiac enlargement. Normal mediastinum and moise. There is prominence of the pulmonary hilar arteries and peripheral pulmonary arteries, consistent with congestive heart failure (CHF). Normal visualized aortic arch and descending thoracic aorta. Normal visualized thoracic spine. Normal visualized ribs, clavicles, and shoulders. There is no demonstrated abnormality of the visualized soft tissue structures of the upper abdomen. RAD/Chest PA and Lateral IMPRESSION: Mild congestive heart failure with small bilateral pleural effusions. Electronically Signed: Myles Carias MD at 17:02 EDT ,
[2024-07-15 16:29] LABS: Absolute Lymphocyte Count 0.72 X10^3/uL (0.83-4.51); Absolute Neutrophil Count 3.1 X10^3/uL (2.0-7.7); Basophil# 0.03 X10^3/uL; Basophil% 0.7 % (0-1); Eosinophil# 0.22 X10^3/uL; Hematocrit 34.2 % (40-54); Hemoglobin 10.8 g/dL (13.0-16.5); Lymphocyte # 0.72 X10^3/ul (0.83-4.51); Lymphocyte % 16.4 % (19-41); Mean Corp Hgb Conc 31.6 g/dL (32-36); Mean Corpuscular Hgb 33.9 pg (27.0-32.0); Mean Corpuscular Volume 107.2 fL (80-94); Mean Platelet Vol. 10.7 fl (6.2-12.0); Monocyte# 0.34 X10^3/uL; Monocyte% 7.7 % (0-10); NRBC Flagged by Analyzer 0 % (0-5); Neutrophil # 3.07 X10^3/uL (2.7-7.7); POSITIVE MORPHOLOGY YES; Platelet Count 142 K/mm3 (150-450); RBC Distribution Width CV 17.3 % (11.6-14.6); Red Blood Count 3.19 M/mm3 (4.6-6.2); White Blood Count 4.4 K/mm3 (4.4-11.0)
[2024-07-15 16:39] LABS: Differential Indicated SCAN CRITERIA MET
[2024-07-15] MEDS: Furosemide 100 MG/10 ML Vial 60 MG IV (16:40)
[2024-07-15 16:51] LABS: Anion Gap 9 (5-15); BUN 40 mg/dL (7-18); BUN/Creat Ratio 19.6 RATIO (10-20); Chloride 113 mmol/L (98-107); Creatinine, Serum 2.04 mg/dL (0.70-1.30); EST Glomerular Filtration Rate 33 mL/min (>60); Est Glom Filt Rate - Afr Amer 40 mL/min (>60); Estimated Creatinine Clearance 23.95 ml/min; Glucose 144 mg/dL (74-106); Potassium 3.3 mmol/L (3.5-5.1); Sodium Level 143 mmol/L (136-145); Troponin-I HS (w/2H Reflex) 47 pg/mL (3.0-78.0)
[2024-07-15 16:57] LABS: Anisocytosis 1+; Crenated RBC 1+; Differential Comment SCANNED
[2024-07-15 18:21] LABS: Reflex Troponin-HS? (from REC) Y
[2024-07-15 18:42] LABS: Troponin-I HS 46 pg/mL (3.0-78.0)
--- NOTE | 2024-07-15 20:12 | HP.PCM.HOS_ITS ---
HPI - General General Date of Admission: 07/15/24 Date of Service: 07/15/24 Chief Complaint: Dyspnea, orthopnea, pedal edema. HPI Narrative The patient is an 88 y/o M w/ PMHx: Carotid disease, CKD stage III unclear subtype, Chronic anemia, CAD s/p CABG x3/Ischemic cardiomyopathy, HTN, HLD, GERD, PAF/Flutter, Hx Sick sinus syndrome s/p pacemaker status, Hx ICH s/p intervention, HFrEF, Chronic thrombocytopenia who presents to the [facility] ED on 07/15/24 with history of dyspnea worsening over the last several days with orthopnea and stable reported pedal edema all worse with exertion with no specific chest pain or heaviness with ongoing appropriate compliance with his medications but given not improving prompted ED evaluation to be cautious. Patient is uncertain of any specific weight gain. He does admit that the edema in his left lower extremity is always a bit worse secondary to grass being harvested for his CABG. Workup in the ED included T98.2, heart rate 85, BP 137/79, respiratory rate 20, 95% room air with most recent repeat vital signs T97, heart rate 61, BP 161/82, respiratory rate 22, 93% on room air however following significant diuresis following IV Lasix in the ED patient still remarkably tachypneic with any activity dropping to 91%, CBC with WBC 4.4, hemoglobin 10.8, MCV 107.2, platelet 142 with lymphopenia, BMP with potassium 3.3, chloride 113, BUN/creatinine 40/2.04, GFR 33, glucose 144, troponin initial 47 with delta repeat 46, chest x-ray with mild congestive heart failure with small bilateral pleural effusions, EKG with atrial fibrillation with rate 90s with no acute evidence of ischemia. In the ED patient ministered Lasix 60 mg IV x 1. [facility] Medical History Atrial flutter Chronic kidney disease (CKD) Kidney disease, chronic, stage III (GFR 30-59 ml/min) Chest pain Hypoxemia Pneumonia of both lower lobes GERD (gastroesophageal reflux disease) COVID-19 Ischemic cardiomyopathy Carotid artery disease Chronic kidney disease (CKD) Paroxysmal atrial fibrillation Sick sinus syndrome Atherosclerosis of [place] coronary artery of [place] heart without angina pectoris Brain bleed Congestive heart failure Acute electrocardiogram changes Home Medications ?Medication ?Instructions ?Recorded ?Last Taken ?Type allopurinol 100 mg tablet 100 mg PO BID Gout 11/24/18 11/27/23 History atorvastatin 40 mg tablet 40 mg PO QHS Cholesterol 11/24/18 11/26/23 History albuterol sulfate 90 mcg/actuation 2 puff inhalation Q4H PRN 12/25/20 Unknown Rx aerosol inhaler shortness of breath or wheezing #8.5 grams cholecalciferol (vitamin D3) 50 50 mcg PO DAILY bone health #1 TAB 03/09/22 11/17/23 Rx mcg (2,000 unit) tablet coenzyme Q10 100 mg tablet 100 mg PO DAILY general 09/24/22 11/16/23 History nitroglycerin 0.4 mg sublingual 0.4 mg sublingual Q5M PRN 09/02/23 Unknown Rx tablet Cardiac/Chest Pain #30 tabs apixaban 2.5 mg tablet 2.5 mg PO BID Blood thinner #180 09/30/23 11/27/23 Rx tabs ascorbic acid (vitamin C) 500 mg 500 mg PO DAILY 05/31/24 Unknown History tablet furosemide 40 mg tablet 40 mg PO DAILY PRN edema 05/31/24 Unknown History mecobalamin (vitamin B12) 1,000 1,000 mcg sublingual DAILY 05/31/24 Unknown History mcg disintegrating tablet,sublingual potassium chloride 20 mEq 20 meq PO DAILY 05/31/24 Unknown History tablet,extended release pyridoxine (vitamin B6) 100 mg 100 mg PO DAILY 05/31/24 Unknown History tablet sacubitril 49 mg-valsartan 51 mg 1 tab PO BID 05/31/24 Unknown History tablet (Entresto) zinc gluconate 50 mg tablet 50 mg PO DAILY 05/31/24 Unknown History carvedilol 25 mg tablet 25 mg PO QHS 07/15/24 Unknown History ferrous sulfate 325 mg (65 mg 325 mg PO DAILY 07/15/24 Unknown History iron) tablet,delayed release Allergy/AdvReac Type Severity Reaction Status Date / Time levofloxacin (From Levaquin) Allergy Unknown unknown Verified 07/15/24 16:01 Family History (Updated 07/15/24 @ 20:[address] Stephanie Acosta MD) Father CAD (coronary artery disease) Mother Heart disease Hypertension Heart failure Surgical History History of craniotomy History of permanent cardiac pacemaker placement History of coronary artery bypass graft x 3 History of brain surgery Social History household members: spouse Smoking Status: Never smoker alcohol intake: never substance use type: does not use caffeine: No ROS ROS Narrative Admission Review of Systems: CONSTITUTIONAL: No weight loss, fever, chills, + weakness or fatigue. HEENT: + Chronic rhinorrhea. Eyes: No visual loss, blurred vision, double vision or yellow sclerae. Ears, Nose, Throat: No hearing loss, sneezing, congestion, sore throat. SKIN: No rash or itching, lesions, wounds. CARDIOVASCULAR: + Orthopnea, edema. No chest pain, chest pressure or chest discomfort, palpitations, syncopal events. RESPIRATORY: + Dyspnea, worse with exertion. No marked cough or sputum, wheezing, hemoptysis. GASTROINTESTINAL: No anorexia, nausea, vomiting or diarrhea, abdominal pain, melena, BRBPR. GENITOURINARY: No dysuria, frequency, urgency or retention. NEUROLOGICAL: No headache, dizziness, syncope, paralysis, ataxia, numbness or tingling in the extremities, focal weakness, change in bowel or bladder control, seizure. MUSCULOSKELETAL: + muscle, back pain, joint pain or stiffness. HEMATOLOGIC: + Chronic anemia, easy bleeding/bruising. LYMPHATICS: No enlarged nodes. No history of splenectomy. PSYCHIATRIC: No history of depression or anxiety. ENDOCRINOLOGIC: No reports of sweating, cold or heat intolerance. No polyuria or polydipsia. ALLERGIES: No history of asthma, hives, eczema or rhinitis. Vital Signs Vital Signs Vital Signs: 07/15/24 16:00 07/15/24 16:06 07/15/24 17:00 Temperature 98.2 F Temperature Source Oral Pulse Rate 85 60 Respiratory Rate 20 H 14 Respiratory Effort Short of Breath Blood Pressure 137/79 H 142/73 H Blood Pressure Mean 98 96 Pulse Ox 95 93 Oxygen Delivery Method Room Air Room Air 07/15/24 18:00 07/15/24 18:45 07/15/24 19:00 Temperature Temperature Source Pulse Rate 101 H 64 67 Respiratory Rate 24 H 26 H 15 Respiratory Effort Blood Pressure 142/102 H 156/85 H 155/79 H Blood Pressure Mean 115 106 103 Pulse Ox 93 94 93 Oxygen Delivery Method Room Air 07/15/24 20:00 07/15/24 20:02 Temperature 97 F L Temperature Source Pulse Rate 61 61 Respiratory Rate 22 H 22 H Respiratory Effort Blood Pressure 161/82 H 161/82 H Blood Pressure Mean 108 108 Pulse Ox 93 93 Oxygen Delivery Method Room Air Weight Weight: 146 lb 4.8 oz Body Mass Index (BMI) 20.9 Physical Exam Narrative Physical Examination: General: Awake, alert, oriented x 3 and cooperative, seated upright in the ED bed, no acute distress, notes less dyspneic than initial arrival. Skin: Normal color, normal turgor, no icterus, no cyanosis except occasional stage ecchymoses HEENT: AT/NC, EOMI, PERRLA, MMM, no carotid bruits, + JVD noted. Lungs: Diminished, greater bases, mildly increased respiratory rate but no distress, mild Rales bases, no rhonchi or wheezing, no evidence of any distress. Heart: Paced, EKG with A-fib; no gallop, rub audible. Abdomen: Soft, NTTP, ND, mildly hyperactive BS, no HSM. Extremities: No cyanosis, no clubbing, pedal to mid garcia pitting edema bilaterally, 1+ on the right and 1-2+ on the left with a chronic component given harvest to the left lower extremity for CABG. Neurological: Patient awake, alert, oriented as noted, cognitive function intact; pupils equally reactive to light and accommodation, cranial nerves grossly normal, moving all 4 extremities, no focal deficits, strength moderately globally decreased. Psychiatric: Affect appears fatigued otherwise normal, no acute evidence of depressive or anxiety feelings. Results Lab / Micro Data 07/15/24 16:15 07/15/24 16:15 Labs: Laboratory Results - last 24 hr 07/15/24 16:15: WBC 4.4, RBC 3.19 L, Hgb 10.8 L, Hct 34.2 L, MCV 107.2 H, MCH 33.9 H, MCHC 31.6 L, RDW Std Deviation 69.0 H, RDW Coeff of Vanesa 17.3 H, Plt Count 142 L, MPV 10.7, Immature Gran % (Auto) 0.200, Neut % (Auto) 70.0, Lymph % (Auto) 16.4 L, [place] % (Auto) 7.7, Eos % (Auto) 5.0, Baso % (Auto) 0.7, Absolute Neuts (auto) 3.1, Absolute Lymphs (auto) 0.72 L, Nucleated RBC % 0, Differential Comment SCANNED, Anisocytosis 1+, Crenated Cell 1+, Sodium 143, Potassium 3.3 L, Chloride 113 H, Carbon Dioxide 21.0, Anion Gap 9, BUN 40 H, Creatinine 2.04 H, Estim Creat Clear Calc 23.95, Est GFR (MDRD) Af Amer 40 L, Est GFR (MDRD) Non-Af 33 L, BUN/Creatinine Ratio 19.6, Glucose 144 H, Calcium 9.0, Troponin I High Sens 47 07/15/24 18:20: Troponin I High Sens 46 Imaging Radiology Impression Chest X-Ray 07/15/24 16:20 IMPRESSION: Mild congestive heart failure with small bilateral pleural effusions. Electronically Signed: Myles Carias MD at 17:02 EDT , Assessment & Plan Assessment/Plan (1) Acute exacerbation of CHF (congestive heart failure): PLAN: Plan The patient is an 88 y/o M w/ PMHx: Carotid disease, CKD stage III unclear subtype, Chronic anemia, CAD s/p CABG x3/Ischemic cardiomyopathy, HTN, HLD, GERD, PAF/Flutter, Hx Sick sinus syndrome s/p pacemaker status, Hx ICH s/p intervention, HFrEF, Chronic thrombocytopenia who presents to the [facility] ED on 07/15/24 with history of dyspnea worsening over the last several days with orthopnea and stable reported pedal edema all worse with exertion with no specific chest pain or heaviness with ongoing appropriate compliance with his medications but given not improving prompted ED evaluation to be cautious. #1. Acute Decompensated HFrEF: CXR obtained in the ED w/ evidence of congestion, bilateral effusion. Patient administered IV lasix in the ED, will admit to PCU, maintain on cardiac telemetry, obtain cardiac enzyme series, obtain serial EKGs, continue IV lasix diuresis, monitor I/Os, maintain on intake restriction, continue medical therapy w/ apixaban, statin, BB, Entresto. Will obtain TSH and magnesium level. Most recent echocardiogram noted 11/10/23 with normal LV size, EF 20%, PASP 60 mmHg, moderate pulmonary hypertension with similar LV systolic function compared to previous echo and given > 6 months will request repeat. PT/OT/case management for discharge planning. Pending response to above interventions if not improving or worsens will consider cardiology involvement. #2. Hypokalemia: Admission K+ 3.3, magnesium level requested, supplementation given, repeat level in AM. #3. Chronic macrocytic anemia/iron deficiency anemia: Admission hemoglobin 10.8, MCV 107.2, baseline hemoglobin similar 8-10, more primarily 9-10, prior to this 07/12/24 hemoglobin 9.9, continue to trend CBC, continue iron supplementation. #4. Chronic thrombocytopenia: Unclear exact etiology, admission platelet 142, baseline platelets 122 150 range, stable, continue to trend. #5. Chronic Kidney Disease Stage III, unclear subtype: Admission BUN/Cr 40/2.04, GFR 33, baseline renal function primarily 1.9-2.4, most recently prior to this 07/05/24 creatinine 1.95, repeat BMP in AM. #6. Carotid disease: Most recent carotid ultrasound noted 10/07/23 with irregular calcific plaque with shadowing of the proximal right ICA with less than 50% stenosis, less than 50 [place] stenosis right external carotid artery, irregular calcific plaque at the proximal left ICA with less than 50% stenosis, less than 50% stenosis left external carotid artery, patent antegrade vertebral arteries bilaterally. Will continue apixaban, statin, hypertensive regimen as noted. #7. CAD: Status post CABG x 3 (06/17/15 w/ BUSBY to LAD, reverse SVG to obtuse marginal branch and posterior descending artery with Dr. Alberto), continue apixaban, statin, Coreg, Entresto home regimen. #8. PAF/flutter: We will continue patient home Coreg and apixaban regimen. #9. Hypertension: Continue home regimen including Coreg, Entresto, IV Lasix as noted, PRN hydralazine. #10. Hyperlipidemia: Continue home statin regimen. AM FLP. #11. History sick sinus syndrome: Status post pacemaker placement, interrogation requested. #12. Gout: We will continue patient home allopurinol regimen. #13. DVT prophylaxis: Will continue patient home apixaban regimen. #14. CODE status: Patient HCPOA is his who is present and living will is currently in place. Discussed CODE status at length including difference between FULL code, DNR-CCA and DNR-CC status. Following discussions about the differences in these status, requested Full Code status. Advanced Care Planning Face to Face Time: 16 minutes. Charges/Coding Visit Charges Inpatient E&M: 46680 Init Hosp L3 Procedures Hospitalists Procedures: 29330 Advncd Care Plan 30 Min
[2024-07-15 20:43] LABS: Magnesium 1.2 mg/dL (1.6-2.6)
--- NOTE | 2024-07-15 21:26 | ECHOD_ITS ---
Reason For Study: CONGESTIVE HEART FAILURE Procedure This was a 2D Doppler, Color Flow transthoracic echocardiogram. Exam performed portable in patient room. Left Ventricle Normal LV size. The estimated ejection fraction is 20-25 %. There is evidence of diastolic dysfunction. There is severe global hypokinesis of the left ventricle. Right Ventricle Normal RV size. ICD or pacer leads identified within the right ventricle. Normal systolic function. Atria There is mild biatrial dilatation. ICD or pacer leads identified within the right atrium. No doppler evidence for ASD. Mitral Valve There is moderate mitral annular calcification. There is no mitral valve stenosis. Mild-Moderate (1- 2+) mitral valve insufficiency. Tricuspid Valve There is no tricuspid stenosis. Trivial tricuspid valve insufficiency. Unable to estimate RV systolic pressure due to insufficient tricuspid regurgitant envelope. Aortic Valve Trisinus/trileaflet aortic valve. There is no aortic stenosis. No aortic valve insufficiency. Pulmonic Valve There is no pulmonic valvular stenosis. No pulmonic valve insufficiency. Great Vessels Normal aortic root. Pericardium/Pleural No pericardial effusion. MMode/2D Measurements & Calculations LVIDd: 5.1 cm IVSd: 1.0 cm LVOT diam: 2.0 cm LVIDs: 4.4 cm LVPWd: 1.3 cm LVOT area: 3.2 cm2 RVDd: 3.8 cm FS: 13.7 % asc Aorta Diam: 2.9 cm LAV(MOD-bp): 64.1 ml LVAd ap4: 36.9 cm2 LAV(MOD-bp) Indexed: 36.3 ml/m2 LVLd ap4: 8.6 cm LAV(MOD-sp2): 71.3 ml EDV(MOD-sp4): 129.8 ml LAV(MOD-sp4): 56.0 ml EDV(sp4-el): 134.6 ml LVAs ap4: 31.2 cm2 LVLs ap4: 8.0 cm ESV(MOD-sp4): 98.3 ml ESV(sp4-el): 103.8 ml EF(MOD-sp4): 24.2 % EF(sp4-el): 22.9 % LVAd ap2: 36.0 cm2 SV(MOD-sp4): 31.4 ml SV(MOD-sp2): 31.5 ml LVLd ap2: 7.6 cm EDV(MOD-sp2): 139.8 ml EDV(sp2-el): 144.9 ml LVAs ap2: 32.1 cm2 LVLs ap2: 7.9 cm ESV(MOD-sp2): 108.3 ml ESV(sp2-el): 111.0 ml EF(MOD-sp2): 22.5 % SV(sp4-el): 30.8 ml Ao sinus diam: 3.[address] Junction: 2.5 cm LA dimension(2D): 4.9 cm LA A4 area: 20.1 cm2 RA A4 area: 20.3 cm2 TAPSE: 1.3 cm Time Measurements MV dec time: 0.22 sec Doppler Measurements & Calculations MV E max artie: 58.3 cm/sec Lat Peak E' Artie: 6.4 cm/sec Med Peak E' Artie: 4.2 cm/sec MV A max artie: 42.4 cm/sec E/E' lat: 9.1 E/E' med: 14.0 MV E/A: 1.4 MV dec slope: 264.4 cm/sec2 Ao V2 max: 122.5 cm/sec LV V1 max: 90.4 cm/sec Ao max P.0 mmHg LV V1 max P.3 mmHg Ao V2 mean: 86.3 cm/sec LV V1 mean P.4 mmHg Ao mean P.3 mmHg LV V1 mean: 53.7 cm/sec Ao V2 VTI: 25.6 cm LV V1 VTI: 18.6 cm AV (velocity ratio): 0.73 SHERRI(I,D): 2.3 cm2 SHERRI(V,D): 2.3 cm2 SV(LVOT): 58.8 ml PA V2 max: 90.3 cm/sec TR max artie: 262.2 cm/sec PA max PG (full): 2.7 mmHg TR max P.5 mmHg ECHO/Echo Complete Interpretation Summary The estimated ejection fraction is 20-25 %. There is evidence of diastolic dysfunction. There is mild biatrial dilatation. There is severe global hypokinesis of the left ventricle. Mild-Moderate (1-2+) mitral valve insufficiency. Ordering Physician: Stephanie Acosta Performed By: Licha Rasheed RDCS and Student
[2024-07-15] MEDS: Atorvastatin Calcium 40 MG Tablet PO (21:58)
[2024-07-15] MEDS: APIXABAN 2.5 MG TABLET (WCH) PO (21:59)
[2024-07-15] MEDS: Carvedilol 25 MG Tablet PO (21:59)
[2024-07-15] MEDS: SACUBITRIL/VALSARTAN 49-51 MG TABLET 1 EACH PO (21:59)
[2024-07-15] MEDS: Allopurinol 100 MG Tablet PO (21:59)
[2024-07-15] MEDS: Potassium Chloride Oral Tablet 20 MEQ 40 MEQ PO (22:05)
--- NOTE | 2024-07-15 22:20 | NURSING ---
Emergency documentation in effect upon admission.
[2024-07-15 22:44] LABS: Troponin-I HS 96 pg/mL (3.0-78.0)
[2024-07-16] VITALS (7 sets, daily range): BP systolic 122–146; BP diastolic 62–84; PULSE 61–83; RESP 17–19; TEMP 36.2–37.1; O2SAT 88–98; BMI 19.9
[2024-07-16 06:14] LABS: Absolute Lymphocyte Count 0.68 X10^3/uL (0.83-4.51); Basophil# 0.04 X10^3/uL; Basophil% 0.9 % (0-1); Eosinophil# 0.15 X10^3/uL; Eosinophils% 3.5 % (0-5); Hematocrit 33.2 % (40-54); Hemoglobin 10.5 g/dL (13.0-16.5); Lymphocyte # 0.68 X10^3/ul (0.83-4.51); Mean Corp Hgb Conc 31.6 g/dL (32-36); Mean Corpuscular Hgb 33.9 pg (27.0-32.0); Mean Corpuscular Volume 107.1 fL (80-94); Mean Platelet Vol. 10.5 fl (6.2-12.0); Monocyte% 9.4 % (0-10); NRBC Flagged by Analyzer 0 % (0-5); Neutrophil # 2.96 X10^3/uL (2.7-7.7); POSITIVE MORPHOLOGY YES; Platelet Count 150 K/mm3 (150-450); RBC Distribution Width CV 17.2 % (11.6-14.6); RBC Distribution Width SD 67.6 fl (35.1-43.9); White Blood Count 4.2 K/mm3 (4.4-11.0)
[2024-07-16 07:06] LABS: ALB/GLOB Ratio 1.3 RATIO (0.9-2.4); AST(SGOT) 16 U/L (15-37); Alanine Aminotransfer ALT/SGPT 26 U/L (16-61); Albumin, Serum 3.8 g/dL (3.2-5.0); Alkaline Phosphatase 96 U/L (45-117); Anion Gap 10 (5-15); BUN 40 mg/dL (7-18); BUN/Creat Ratio 19.9 RATIO (10-20); Chloride 112 mmol/L (98-107); Cholesterol 95 mg/dL (200); Creatinine, Serum 2.01 mg/dL (0.70-1.30); EST Glomerular Filtration Rate 34 mL/min (>60); Est Glom Filt Rate - Afr Amer 41 mL/min (>60); Estimated Creatinine Clearance 23.11 ml/min; Glucose 102 mg/dL (74-106); High Density Lipoprotein 35 mg/dL; Potassium 3.2 mmol/L (3.5-5.1); Protein, Total 6.8 g/dL (6.4-8.2); Sodium Level 143 mmol/L (136-145); Triglycerides 74 mg/dL; Very Low Density Lipoprotein 15 mg/dL (5-40)
[2024-07-16] MEDS: Allopurinol 100 MG Tablet PO ×2 (09:06→21:50)
[2024-07-16] MEDS: APIXABAN 2.5 MG TABLET (WCH) PO ×2 (09:06→21:50)
[2024-07-16] MEDS: SACUBITRIL/VALSARTAN 49-51 MG TABLET 1 EACH PO ×2 (09:06→21:50)
[2024-07-16] MEDS: Ferrous Sulfate 325 MG Tablet PO (09:06)
[2024-07-16] MEDS: Potassium Chloride Oral Tablet 20 MEQ PO (09:06)
[2024-07-16] MEDS: 0.9% Saline Lock 10 ML Syringe IV ×2 (09:08→17:58)
[2024-07-16] MEDS: Furosemide 40 MG/4 ML Vial IV ×2 (09:08→17:58)
[2024-07-16] MEDS: FLU VACCINE **HIGH DOSE** TV 24-25 180 MCG/0.5 ML SYRINGE IM (09:10)
--- NOTE | 2024-07-16 10:22 | PCM.PN.HOSP ---
Reason for Visit Reason for Visit: Diagnoses Heart failure, unspecified (07/15/24) Subjective Subjective Saw patient at bedside this morning. Patient was sitting up fairly comfortably in bed, conversing normally, in no acute distress. He had no increased work of breathing noted on 2 L nasal cannula. Stated he has had good urine output on the IV Lasix thus far. Notes that his legs were wrapped with Bassem wrap this morning and they feel a bit less swollen now than yesterday. No other new concerns today. Objective Data Objective Data Vital Signs: Vital Signs Temp Pulse Resp BP Pulse Ox O2 Del Method O2 Flow Rate 98.7 F 83 19 H 138/84 H 94 Nasal Cannula 2 07/16/24 09:25 07/16/24 09:25 07/16/24 09:25 07/16/24 09:25 07/16/24 09:25 07/16/24 09:32 07/16/24 09:32 Oxygen Flow Rate (L/min) 2 Oxygen Delivery Method Nasal Cannula Weight: 63.1 kg Body Mass Index (BMI) 19.9 Intake & Output: Intake and Output for Last 24 Hours 07/14/24 07/15/24 07/16/24 23:59 23:59 23:59 Intake Total 220 / 220 Output Total 450 / 450 800 / 800 Balance -230 / -230 -800 / -800 Lab / Micro Data 07/16/24 04:50 07/16/24 04:50 Labs: Laboratory Results - last 24 hr 07/15/24 16:15: WBC 4.4, RBC 3.19 L, Hgb 10.8 L, Hct 34.2 L, MCV 107.2 H, MCH 33.9 H, MCHC 31.6 L, RDW Std Deviation 69.0 H, RDW Coeff of Vanesa 17.3 H, Plt Count 142 L, MPV 10.7, Immature Gran % (Auto) 0.200, Neut % (Auto) 70.0, Lymph % (Auto) 16.4 L, [place] % (Auto) 7.7, Eos % (Auto) 5.0, Baso % (Auto) 0.7, Absolute Neuts (auto) 3.1, Absolute Lymphs (auto) 0.72 L, Nucleated RBC % 0, Differential Comment SCANNED, Anisocytosis 1+, Crenated Cell 1+, Sodium 143, Potassium 3.3 L, Chloride 113 H, Carbon Dioxide 21.0, Anion Gap 9, BUN 40 H, Creatinine 2.04 H, Estim Creat Clear Calc 23.95, Est GFR (MDRD) Af Amer 40 L, Est GFR (MDRD) Non-Af 33 L, BUN/Creatinine Ratio 19.6, Glucose 144 H, Calcium 9.0, Troponin I High Sens 47 07/15/24 18:20: Magnesium 1.2 L, Troponin I High Sens 46 07/15/24 22:15: Troponin I High Sens 96 H 07/16/24 04:50: WBC 4.2 L, RBC 3.10 L, Hgb 10.5 L, Hct 33.2 L, MCV 107.1 H, MCH 33.9 H, MCHC 31.6 L, RDW Std Deviation 67.6 H, RDW Coeff of Vanesa 17.2 H, Plt Count 150, MPV 10.5, Immature Gran % (Auto) 0.200, Neut % (Auto) 70.0, Lymph % (Auto) 16.0 L, [place] % (Auto) 9.4, Eos % (Auto) 3.5, Baso % (Auto) 0.9, Absolute Neuts (auto) 3.0, Absolute Lymphs (auto) 0.68 L, Nucleated RBC % 0, Sodium 143, Potassium 3.2 L, Chloride 112 H, Carbon Dioxide 21.0, Anion Gap 10, BUN 40 H, Creatinine 2.01 H, Estim Creat Clear Calc 23.11, Est GFR (MDRD) Af Amer 41 L, Est GFR (MDRD) Non-Af 34 L, BUN/Creatinine Ratio 19.9, Glucose 102, Calcium 9.0, Total Bilirubin 1.40 H, AST 16, ALT 26, Alkaline Phosphatase 96, Total Protein 6.8, Albumin 3.8, Globulin 3.0, Albumin/Globulin Ratio 1.3, Triglycerides 74, Cholesterol 95, LDL Cholesterol 45, VLDL Cholesterol 15, HDL Cholesterol 35 L, TSH 2.670 Radiography Diagnostic Testing: Radiology Impression Chest X-Ray 07/15/24 16:20 IMPRESSION: Mild congestive heart failure with small bilateral pleural effusions. Electronically Signed: Myles Carias MD at 17:02 EDT , Physical Exam Const alert, oriented x3, no apparent distress and average body habitus Constitutional Narrative: Pleasant elderly male, good energy level, sitting up comfortably in bed, conversing normally, in no acute distress. General Appearance: cooperative and comfortable HEENT normocephalic, head/scalp atraumatic, hearing grossly normal bilaterally, nasal mucous membranes and turbinates normal and moist oral mucous membranes Eyes PERRL, EOMs intact bilaterally and conjunctivae normal Neck full ROM Chest inspection of chest normal Resp normal respiratory effort and no use of accessory muscles Resp Narrative: Mildly decreased breath sounds bilaterally with mild crackles noted in upper airways. Breathing comfortably on 2 L nasal cannula at rest. No wheezing noted. Cardio regular rate, regular rhythm, no murmurs and peripheral pulses 2+ throughout GI normal to inspection, nondistended, normoactive bowel sounds, soft to palpation, non-tender and non-distended Back/Spine normal ROM Extremity Extremity Narrative: Legs wrapped in Bassem wrap bilaterally up to just below the knee. No pitting edema noted bilaterally and no tenderness to palpation. Skin no rashes or lesions noted Neuro no focal motor deficits and no sensory deficits noted Speech: speech normal Psych mental status grossly normal Assessment & Plan Assessment/Plan (1) Acute exacerbation of CHF (congestive heart failure): (2) Hypokalemia: (3) Anemia in chronic kidney disease (CKD): QUALIFIERS: Chronic kidney disease stage: stage 4 (severe) Qualified Code(s): N18.4 - Chronic kidney disease, stage 4 (severe); D63.1 - Anemia in chronic kidney disease PLAN: Plan Patient is an 88-year-old male who presented [facility] ED on 07/15/2024 with worsening shortness of breath. 1. Acute on chronic HFrEF with mild acute hypoxia ? Presentation consistent with mild CHF exacerbation. No clear trigger for exacerbation, reports compliance with medications but notably does only take p.o. Lasix 40 mg daily as needed. Chest x-ray showed mild CHF with small bilateral pleural effusions. Last echo on 11/10/2023 showed EF 20%, severe global hypokinesis of LV, moderate pulmonary hypertension; this was stable from prior echo in 07/2022. Continue IV Lasix 40 mg twice daily that was started on admission. Monitor daily BMP and urine output. Continue home Entresto and carvedilol. Patient stable on 2 L nasal cannula on 07/16, not on home oxygen. Suspect patient may be stable for de-escalation to p.o. Lasix on 07/17 and would need oxygen testing prior to discharge. 2. Hypokalemia, hypomagnesemia ? Potassium 3.3 on admit. Magnesium 1.2. Repleting both as needed. 3. Elevated troponin ? Troponin trend 47 > 46 > 96 on admit. No EKG changes noted. No chest pain reported. Suspect mild demand ischemia secondary to heart failure exacerbation as noted above. 4. CKD stage IIIb ? Creatinine 2.04 on admit, baseline around 2.0. Has had good urine output on IV Lasix as noted above. Monitor daily BMP and urine output. 5. Chronic anemia and mild thrombocytopenia ? Follows with Dr. Trivedi. Hemoglobin 10.8, platelets 142 on admit. Both appear stable at baseline and remained stable on hospital day 2. No need to monitor further CBCs. Continue home iron supplement. Chronic medical conditions: ? CAD s/p CABG, hypertension, hyperlipidemia: Stable. Continue home Entresto, carvedilol and atorvastatin. ? Paroxysmal A-fib, history of SSS s/p pacemaker placement: Pacemaker interrogation requested on admission; does not appear this has been completed yet. Heart rate stable, continue home carvedilol and Eliquis. ? Gout: Stable, not in exacerbation. Continue home allopurinol. DVT prophylaxis: Not indicated, on Eliquis CODE STATUS: Full code, verified Expected disposition: Home, 1 to 2 days Total clinical time spent by myself addressing the patient's medical issues, reviewing all the data, and collaborating with patient's care team: 35 minutes. Charges/Coding Visit Charges Inpatient E&M: 66130 Subs Hosp L2
[2024-07-16] MEDS: Magnesium Sulfate 4gm/100mL 4 GM/100 ML IV.SOLN. IV (14:05)
[2024-07-16] MEDS: Carvedilol 25 MG Tablet PO (21:50)
[2024-07-16] MEDS: Atorvastatin Calcium 40 MG Tablet PO (21:50)
[2024-07-17] VITALS (9 sets, daily range): BP systolic 126–130; BP diastolic 61–72; PULSE 60–64; RESP 16–19; TEMP 36.1–36.5; O2SAT 93–99; BMI 19.4
[2024-07-17] MEDS: SACUBITRIL/VALSARTAN 49-51 MG TABLET 1 EACH PO (08:44)
[2024-07-17] MEDS: APIXABAN 2.5 MG TABLET (WCH) PO (08:44)
[2024-07-17] MEDS: Potassium Chloride Oral Tablet 20 MEQ PO (08:44)
[2024-07-17] MEDS: Ferrous Sulfate 325 MG Tablet PO (08:44)
[2024-07-17] MEDS: Allopurinol 100 MG Tablet PO (08:45)
[2024-07-17] MEDS: Furosemide 40 MG/4 ML Vial IV (08:45)
[2024-07-17] MEDS: 0.9% Saline Lock 10 ML Syringe IV (08:47)
[2024-07-17 09:05] LABS: Anion Gap 9 (5-15); BUN 40 mg/dL (7-18); Calcium,Total 9.7 mg/dL (8.5-10.1); Chloride 108 mmol/L (98-107); Creatinine, Serum 2.22 mg/dL (0.70-1.30); EST Glomerular Filtration Rate 30 mL/min (>60); Est Glom Filt Rate - Afr Amer 36 mL/min (>60); Estimated Creatinine Clearance 20.36 ml/min; Glucose 110 mg/dL (74-106); Potassium 3.3 mmol/L (3.5-5.1); Sodium Level 143 mmol/L (136-145)
[2024-07-17 09:24] LABS: Magnesium 2.2 mg/dL (1.6-2.6)
[2024-07-17] MEDS: Potassium Chloride Oral Tablet 20 MEQ 40 MEQ PO (10:25)
--- NOTE | 2024-07-17 10:45 | CASEMGMT ---
RN CM Face to Face with patient for initial transition planning/care coordination assessment. RN CM introduced self and role at [facility]. Patient lying in bed, alert and oriented, at bedside. Patient willing to participate in assessment and is able to answer all questions appropriately. Care providers, pharmacy, and demographics verified. Strata: 3 PCP: Lesly Specialists: Wes, regrinder operator; Russell, quality improvement coordinator; Shikha, bone worker; Preferred Pharmacy: [facility] Insurance: [facility] Prescription Benefit: none Living Will/HPOA: yes, Deirdre Brown LNOK: Living Arrangements: Patient lives with in a single story home with 1 step and railing to enter the home. Patient is independent at home. Transportation: DME/HHC: Patient has shower chair, raised toilet, cane, walker, grab bars at home. No previous SNF. Patient has had [facility] in the past. Patient wishes to discharge home, denies need for home health at this time. Patient states he has no further needs or concerns at this time. CM to follow for discharge planning needs that may arise. Disposition Plan: Patient to discharge home with family support and follow-up plans in place. Teri ROBLERO, RN, CM
--- NOTE | 2024-07-17 15:20 | PCM.DC.SUM ---
Providers Date of Admission: 07/15/24 Date of Discharge: 07/17/24 Primary Care Physician: Cheli Grace MD Reason For Visit: HFrEF EXACERBATION Diagnosis Discharge Diagnosis (1) Acute exacerbation of CHF (congestive heart failure): Status: Chronic Code(s): I50.9 - Heart failure, unspecified (2) Hypokalemia: Status: Acute Code(s): E87.6 - Hypokalemia (3) Anemia in chronic kidney disease (CKD): Status: Chronic Code(s): N18.9 - Chronic kidney disease, unspecified; D63.1 - Anemia in chronic kidney disease Qualifiers: Chronic kidney disease stage: stage 4 (severe) Qualified Code(s): N18.4 - Chronic kidney disease, stage 4 (severe); D63.1 - Anemia in chronic kidney disease Medications at Discharge Home Medications allopurinol 100 mg tablet 100 mg PO BID Gout 11/24/18 atorvastatin 40 mg tablet 40 mg PO QHS Cholesterol 11/24/18 albuterol sulfate 90 mcg/actuation aerosol inhaler 2 puff inhalation Q4H PRN shortness of breath or wheezing #8.5 grams 12/25/20 cholecalciferol (vitamin D3) 50 mcg (2,000 unit) tablet 50 mcg PO DAILY bone health #1 TAB 03/09/22 coenzyme Q10 100 mg tablet 100 mg PO DAILY general 09/24/22 nitroglycerin 0.4 mg sublingual tablet 0.4 mg sublingual Q5M PRN Cardiac/Chest Pain #30 tabs 09/02/23 apixaban 2.5 mg tablet 2.5 mg PO BID Blood thinner #180 tabs 09/30/23 ascorbic acid (vitamin C) 500 mg tablet 500 mg PO DAILY 05/31/24 mecobalamin (vitamin B12) 1,000 mcg disintegrating tablet,sublingual 1,000 mcg sublingual DAILY 05/31/24 potassium chloride 20 mEq tablet,extended release 20 meq PO DAILY K 05/31/24 pyridoxine (vitamin B6) 100 mg tablet 100 mg PO DAILY 05/31/24 sacubitril 49 mg-valsartan 51 mg tablet (Entresto) 1 tab PO BID 05/31/24 zinc gluconate 50 mg tablet 50 mg PO DAILY 05/31/24 carvedilol 25 mg tablet 25 mg PO QHS 07/15/24 ferrous sulfate 325 mg (65 mg iron) tablet,delayed release 325 mg PO DAILY 07/15/24 furosemide 40 mg tablet 40 mg PO DAILY edema #1 TAB 07/17/24 Hospital Course Summary of Care Provided Minutes Spent on Discharge: 38 Hospital Course: Mr. Brown is an 88-year-old white male who presented to the emergency department at [facility] on 07/15/2024 with shortness of breath, orthopnea, and pedal edema. He has a history of an ischemic cardiomyopathy with a baseline EF of about 20 to 25% on his most recent echo from October 2023. He also has a known history of sick sinus syndrome and is status post pacemaker remotely. Upon presentation he reported worsening dyspnea over several days prior to presentation with concomitant orthopnea and pedal edema. He indicated that his shortness of breath was worse with exertion but denied any chest pain or chest heaviness. He reported that he been taking his Lasix only on an as needed basis and has been taking it to what he approximated his every other day. It also does not sound like he watches his diet extensively. Vital signs on presentation showed unremarkable vital signs. But his oxygen saturation did drop to 91% with exertion and he still had significant tachypnea with exertion. CBC was overtly unremarkable. BMP demonstrated mild hypokalemia with potassium of 3.3. Initial troponin was 47 with a delta of 46. Chest x-ray showed mild congestive heart failure with small bilateral pleural effusions and EKG showed rate controlled atrial fibrillation with rates in the 90s. He was given IV Lasix in the emergency department and admitted and placed on IV Lasix twice daily. Echocardiogram was ordered to reassess his LV function. EF was 20 to 25%, there was evidence of diastolic dysfunction as well as mild biatrial dilation and severe global hypokinesis of the LV with mild to moderate mitral valve insufficiency. This is stable when compared to his most recent echocardiogram. His pacer was interrogated and reviewed with cardiology. They felt he just needed outpatient follow-up with discussion with regarding replacement due to low battery life. Follow-up appointment was made prior to discharge. He did extremely well with Lasix twice daily. He dropped 2 to 3 kg of body weight with diuresis and was negative about 2-1/2 L for the hospitalization. He was maintained on goal-directed therapy with carvedilol and Entresto. He has a history of hyperkalemia so he is not taking Aldactone. Ambulatory pulse ox was done prior to discharge and he required no oxygen at rest or with exertion and stated he was feeling much better than on admission. We discussed his diet and sodium and fluid intake. We also discussed weighing himself on a daily basis in the morning with no close on and if he gains more than 2 to 3 pounds in a 24-hour period I have asked him to take an extra dose of his Lasix and call his wire stitcher office. He and his both voiced understanding. These instructions were placed in his discharge paperwork. We have arranged an outpatient follow-up with cardiology to be seen in the next 1 to 2 weeks and have asked him to follow-up with his primary care physician within the next week. He was discharged home in stable condition on 07/17/2024. Patient's indicated he needed no further prescription for Lasix at this time. 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 pulmonary hypertension Paroxysmal atrial fibrillation/flutter Essential HTN HPL History of subarachnoid hemorrhage Physical Exam Const alert, oriented x3, no apparent distress, average body habitus, no limitations and well nourished Constitutional Narrative: Very pleasant, elderly, white male, sitting up in a chair at the bedside, appears well, nontoxic, at bedside, on room air General Appearance: cooperative, comfortable, well kempt and well developed Orientation / Consciousness: awake, oriented to person, oriented to place and oriented to time Exam Limitations: no limitations Nutritional Appearance: thin HEENT normocephalic and head/scalp atraumatic HEENT Narrative: Moderate hearing loss, Mallampati 2, no thrush Eyes PERRL, EOMs intact bilaterally and conjunctivae normal Eyes Narrative: No scleral icterus Neck no lymphadenopathy and supple Neck Narrative: Trachea midline, no thyroid enlargement Resp normal respiratory effort, no retractions, no use of accessory muscles and clear to auscultation bilaterally Auscultation: Negative for rales, rhonchi or wheezes Cardio regular rate, regular rhythm, S1 normal heart sound, S2 normal heart sound, no rub, no gallops and no clicks; Negative for no murmurs Cardio Narrative: 3 out of 6 systolic murmur loudest at left lower sternal border GI normal to inspection, nondistended, normoactive bowel sounds, soft to palpation and non-tender Extremity Extremity Narrative: Trace bilateral lower extremity edema that is pitting in nature, pedal pulses are 2+, radial pulses are 2+, no cyanosis or clubbing Skin no rashes or lesions noted, no wounds, skin turgor normal and no jaundice Neuro oriented x3, moves all extremities and no focal motor deficits Speech: speech normal Psych affect normal Psych Narrative: Very pleasant, interacts appropriately Weight / BMI Weight Weight: 61.4 kg Body Mass Index (BMI) 19.4 ABG / Lab / Microbiology Data 07/16/24 04:50 07/17/24 08:29 Laboratory: Laboratory Results - last 24 hr 07/17/24 08:29: Sodium 143, Potassium 3.3 L, Chloride 108 H, Carbon Dioxide 26.0, Anion Gap 9, BUN 40 H, Creatinine 2.22 H, Estim Creat Clear Calc 20.36, Est GFR (MDRD) Af Amer 36 L, Est GFR (MDRD) Non-Af 30 L, BUN/Creatinine Ratio 18.0, Glucose 110 H, Calcium 9.7, Magnesium 2.2 Radiography Diagnostic Testing: Radiology Impression Echocardiogram 07/15/24 21:26 Interpretation Summary The estimated ejection fraction is 20-25 %. There is evidence of diastolic dysfunction. There is mild biatrial dilatation. There is severe global hypokinesis of the left ventricle. Mild-Moderate (1-2+) mitral valve insufficiency. Ordering Physician: Stephanie Acosta Performed By: Licha Rasheed RDCS and Student D/C Instructions Discharge Diet: Low fat / Low cholesterol (Please limit sodium intake to 2 to 3 g daily and limit fluid intake to 1.5 to 2 L daily) Discharge Activity: No Restrictions Meaningful Use Info Meaningful Use Meaningful Use Diagnoses (Choose all that apply): CHF CHF ROHAN/ARB ordered at discharge?: Yes Documented LVEF (%): 20 Ischemic Stroke Statin Dosing Therapy Reference: STATIN DOSE THERAPY REFERENCE: * Patients > 75 years receive moderate or high dose statin therapy. * Patients 75 years or YOUNGER should receive HIGH intensity statin dose unless contraindicated. You will be required to document reason for non-treatment if statin daily dose does not meet guidelines. HIGH DOSE STATIN THERAPY DAILY Atorvastatin > than or = to 40 mg Rosuvastatin > than or = to 20 mg Amlodipine + Atorvastatin > than or = to 2.5/40 mg Ezetimibe + Simvastatin 10/80 mg Simvastatin 80mg Discharge Plan Admission Admit Date/Time: 07/15/24 20:14 Primary Reason for Your Visit: Shortness of breath/lower extremity edema Attending Provider: Hedy Wells Primary Care Provider: Cheli Grace Consulting Providers: Stephanie Acosta; Sanjeev Sandhu Instructions Additional Instructions / Restrictions: 1. Please weigh yourself daily and if you gain more than 2 to 3 pounds in a 24-hour period takes an extra dose of your Lasix and call the wire stitcher office. -Please weigh yourself daily at the same time with no close on--> preferably in the morning 2. Please follow-up with cardiology as directed as the battery life on your pacemaker is running low 3. Please limit salt intake to 2 to 3 g daily and limit fluid intake to 1.5 to 2 L daily Discharge Orders/Prescriptions Prescriptions: Continued albuterol sulfate 90 mcg/actuation HFA aerosol inhaler 2 puff INHALATION Q4H PRN (Reason: shortness of breath or wheezing) Qty: 8.5 6RF Rx Instructions: administer with spacer coenzyme Q10 100 mg tablet 100 mg PO DAILY Rx Instructions: pt takes in the am ascorbic acid (vitamin C) 500 mg tablet 500 mg PO DAILY zinc gluconate 50 mg tablet 50 mg PO DAILY pyridoxine (vitamin B6) 100 mg tablet 100 mg PO DAILY mecobalamin (vitamin B12) 1,000 mcg tablet,disintegrating 1,000 mcg sublingual DAILY Patient Comments: take one tablet 2 days (mon and thurs) Rx Instructions: place tablet under tongue and allow to dissolve for at least30 secs before swallowing Entresto 49-51 mg tablet 1 tab PO BID atorvastatin 40 MG tablet 40 mg PO QHS allopurinol 100 MG tablet 100 mg PO BID ferrous sulfate 325 mg (65 mg iron) tablet,delayed release (DR/EC) 325 mg PO DAILY carvedilol 25 mg tablet 25 mg PO QHS Rx Instructions: must administer with a meal/food cholecalciferol (vitamin D3) 50 mcg (2,000 unit) tablet 50 mcg PO DAILY Qty: 1 0RF nitroglycerin 0.4 mg tablet, sublingual 0.4 mg sublingual Q5M PRN (Reason: Cardiac/Chest Pain) Qty: 30 2RF apixaban 2.5 mg tablet 2.5 mg PO BID Qty: 180 4RF Changed furosemide 40 mg tablet 40 mg PO DAILY Qty: 1 0RF Held potassium chloride 20 mEq tablet extended release 20 meq PO DAILY Hold Instructions: Until otherwise instructed Referrals / Follow Up: Cheli Grace MD [Primary Care Provider] - 07/24/24 3:30 pm Ashlee Oleary PA [[facility] Staff [facility]] - 07/26/24 9:30 am Disposition Disposition (needs filled in before D/C Order can be placed): Home, Self Care Charges/Coding Visit Charges Inpatient E&M: 35019 Disch Hosp >30min
--- NOTE | 2024-07-17 15:41 | CASEMGMT ---
Patient has order for discharge. Therapy in room and states no therapy recommended at discharge. Patient denies needs or help at discharge. Patient and had no further questions or concerns.
--- NOTE | 2024-07-17 16:12 | PHA.DC.MR.R ---
Pharmacy [place] Med Reconciliation Pharmacy Service has performed discharge medication reconciliation for this patient. The patient's discharge medication list was reviewed for discrepancies and discrepancies were resolved. Medications at Discharge Home Medications allopurinol 100 mg tablet 100 mg PO BID Gout 11/24/18 atorvastatin 40 mg tablet 40 mg PO QHS Cholesterol 11/24/18 albuterol sulfate 90 mcg/actuation aerosol inhaler 2 puff inhalation Q4H PRN shortness of breath or wheezing #8.5 grams 12/25/20 cholecalciferol (vitamin D3) 50 mcg (2,000 unit) tablet 50 mcg PO DAILY bone health #1 TAB 03/09/22 coenzyme Q10 100 mg tablet 100 mg PO DAILY general 09/24/22 nitroglycerin 0.4 mg sublingual tablet 0.4 mg sublingual Q5M PRN Cardiac/Chest Pain #30 tabs 09/02/23 apixaban 2.5 mg tablet 2.5 mg PO BID Blood thinner #180 tabs 09/30/23 ascorbic acid (vitamin C) 500 mg tablet 500 mg PO DAILY 05/31/24 mecobalamin (vitamin B12) 1,000 mcg disintegrating tablet,sublingual 1,000 mcg sublingual DAILY 05/31/24 potassium chloride 20 mEq tablet,extended release 20 meq PO DAILY K 05/31/24 pyridoxine (vitamin B6) 100 mg tablet 100 mg PO DAILY 05/31/24 sacubitril 49 mg-valsartan 51 mg tablet (Entresto) 1 tab PO BID 05/31/24 zinc gluconate 50 mg tablet 50 mg PO DAILY 05/31/24 carvedilol 25 mg tablet 25 mg PO QHS 07/15/24 ferrous sulfate 325 mg (65 mg iron) tablet,delayed release 325 mg PO DAILY 07/15/24 furosemide 40 mg tablet 40 mg PO DAILY edema #1 TAB 07/17/24
== END 2024-07-17 16:27 | disposition home or self-care (01) | DRG 291 ==
LOC: ED 19:54 → PCU 21:36
PROVIDERS: Admitting Provider Family Medicine; Emergency Provider Emergency Medicine; PCP Family Medicine; Visit Provider Internal Medicine
DX: I13.0 Hypertensive heart and chronic kidney disease with heart failure and stage 1 through stage 4 chronic kidney disease, or unspecified chronic kidney disease (principal); I50.31 Acute diastolic (congestive) heart failure; I24.89 Other forms of acute ischemic heart disease; N18.4 Chronic kidney disease, stage 4 (severe); I27.29 Other secondary pulmonary hypertension; D69.6 Thrombocytopenia, unspecified; D63.1 Anemia in chronic kidney disease; I34.0 Nonrheumatic mitral (valve) insufficiency; I49.5 Sick sinus syndrome; I48.0 Paroxysmal atrial fibrillation; D50.9 Iron deficiency anemia, unspecified; E87.6 Hypokalemia; I25.10 Atherosclerotic heart disease of native coronary artery without angina pectoris; M10.9 Gout, unspecified; I25.5 Ischemic cardiomyopathy; E78.00 Pure hypercholesterolemia, unspecified; E87.5 Hyperkalemia; Z79.01 Long term (current) use of anticoagulants; Z79.2 Long term (current) use of antibiotics; Z95.0 Presence of cardiac pacemaker; R09.02 Hypoxemia; Z23 Encounter for immunization; Z95.1 Presence of aortocoronary bypass graft; Z79.899 Other long term (current) drug therapy; R79.89 Other specified abnormal findings of blood chemistry
CPT/HCPCS: 36415; 71046; 80048; 80053; 80061; 80076; 83735; 84443; 84484; 85025; 90662; 93005; 93306; 94668; 97162; 97166; 97530; 97802; 99285; A4216; J1940; Q5106

== ENCOUNTER → 2024-07-26 | Outpatient (CLI) | payer MEDICARE, OTHER, SELFPAY ==
[2024-07-26 11:34] LABS: Anion Gap 9 (5-15); BUN 92 mg/dL (7-18); BUN/Creat Ratio 36.2 RATIO (10-20); Calcium,Total 10.2 mg/dL (8.5-10.1); Chloride 106 mmol/L (98-107); Creatinine, Serum 2.54 mg/dL (0.70-1.30); EST Glomerular Filtration Rate 26 mL/min (>60); Est Glom Filt Rate - Afr Amer 31 mL/min (>60); Glucose 105 mg/dL (74-106); Potassium 3.8 mmol/L (3.5-5.1); Sodium Level 140 mmol/L (136-145)
[2024-07-26 12:05] LABS: Protein, Urine (Random) 22.4 mg/dL (<11.9); Protein:Creat Ratio 368 mg/g CRE (0-200)
== END | disposition home or self-care (01) ==
LOC: LAB 10:26
PROVIDERS: PCP Family Medicine; Referring Provider Internal Medicine Nephrology; Visit Provider Internal Medicine Nephrology
DX: N18.32 Chronic kidney disease, stage 3b (principal)
CPT/HCPCS: 36415; 80048; 82570; 84156

== ENCOUNTER → 2025-01-11 | Outpatient (CLI) | payer MEDICARE, OTHER, SELFPAY ==
--- NOTE | 2025-01-11 16:25 | STRESSREP ---
Stress Test Report Pharmacologic myocardial perfusion stress test. 89-year-old man with a history of a cardiomyopathy and coronary artery disease Resting EKG demonstrates atrial fibrillation with ventricular paced rhythm at a rate of 81 bpm. Resting blood pressure is 152/70 mmHg. 0.4 mg of regadenoson was infused per usual protocol followed by rapid intravenous saline flush injection. Continuous EKG monitoring was performed. The maximum heart rate was 93 bpm which was 52% of max impacted heart rate the maximum workload was 1 metabolic equivalent. At rest there were no ST or T wave changes noted to suggest ischemia and at peak infusion nonspecific ST changes were noted which did not meet the criteria for ischemia. No clinical angina is noted. The final blood pressure was 140/89 mmHg. Myocardial perfusion protocol. 11.9 mCi of technetium 99m sestamibi was injected at rest. 0.4 mg of regadenoson was infused per usual protocol. At peak infusion 34.4 mCi of technetium 99m sestamibi was injected stress images were obtained stress and rest images were reconstructed and compared in the short axis vertical long and horizontal long axis. Gated images were also obtained. Perfusion SPECT analysis: Review of the stress images demonstrate normal uptake of tracer noted in all areas of the myocardium. The ventricle was noted to be dilated. The resting images similar demonstrated normal uptake of tracer noted in all areas of the myocardium. No areas of reversibility are noted to suggest ischemia and no previous infarct is noted. Gated SPECT analysis: The gated ejection fraction is 29%. Conclusion: Normal pharmacologic myocardial perfusion stress test. Reduced ejection fraction.
== END | disposition home or self-care (01) ==
LOC: CVS 06:43
PROVIDERS: PCP Family Medicine; Referring Provider Physician Assistant Medical; Visit Provider Physician Assistant Medical
DX: R07.9 Chest pain, unspecified (principal)
CPT/HCPCS: 78452; 93017; A9500; A4216; J2785

== ENCOUNTER → 2025-01-15 | Outpatient (CLI) | payer MEDICARE, OTHER, SELFPAY ==
[2025-01-15 12:40] LABS: Hematocrit 35.9 % (40-54); Hemoglobin 11.7 g/dL (13.0-16.5); Mean Corp Hgb Conc 32.6 g/dL (32-36); Mean Corpuscular Hgb 33.9 pg (27.0-32.0); Mean Corpuscular Volume 104.1 fL (80-94); Mean Platelet Vol. 10.7 fl (6.2-12.0); Platelet Count 135 K/mm3 (150-450); RBC Distribution Width CV 14.5 % (11.6-14.6); RBC Distribution Width SD 55.2 fl (35.1-43.9); Red Blood Count 3.45 M/mm3 (4.6-6.2); White Blood Count 6.7 K/mm3 (4.4-11.0)
[2025-01-15 15:57] LABS: PTHIN 59 pg/mL (11-61)
[2025-01-15 19:28] LABS: Protein, Urine (Random) 17.6 mg/dL (0.0-12.0); Protein:Creat Ratio 249 mg/g CRE (0-200)
[2025-01-15 22:57] LABS: Albumin, Serum 4.4 g/dL (3.4-4.8); Anion Gap 14 (5-15); BUN 55 mg/dL (4-19); BUN/Creat Ratio 27.7 RATIO (10-20); Calcium,Total 9.5 mg/dL (7.6-11.0); Carbon Dioxide 15.4 mmol/L (21.0-32.0); Chloride 111 mmol/L (98-108); Creatinine, Serum 1.97 mg/dL (0.70-1.20); EST Glomerular Filtration Rate 32 (>60); Glucose 102 mg/dL (70-99); Phosphorus 2.2 mg/dL (2.7-4.5); Potassium 3.7 mmol/L (3.3-5.1); Sodium Level 140 mmol/L (133-145); Vitamin D,25 Hydroxy 47.1 ng/mL (30-100)
== END | disposition home or self-care (01) ==
LOC: LAB 11:59
PROVIDERS: PCP Family Medicine; Referring Provider Internal Medicine Cardiovascular Disease; Visit Provider Internal Medicine Nephrology
DX: N18.32 Chronic kidney disease, stage 3b (principal)
CPT/HCPCS: 36415; 80069; 82306; 82570; 83970; 84156; 85027

== ENCOUNTER 2025-07-10 04:06 | Emergency (ER) | payer MEDICARE, OTHER, SELFPAY ==
[2025-07-10 04:07] VITALS: BP 123/68; PULSE 60; RESP 20; TEMP 36.3; O2SAT 94; BMI 21.3
[2025-07-10 04:10] VITALS: O2SAT 94
--- NOTE | 2025-07-10 04:15 | EKG12_ITS ---
Test Reason : CP Blood Pressure : */* mmHG Vent. Rate : 61 BPM Atrial Rate : 192 BPM P-R Int : * ms QRS Dur : 230 ms QT Int : 568 ms P-R-T Axes : * -61 109 degrees QTcB Int : 571 ms Atrial Flutter with occasional Premature ventricular complexes Abnormal ECG Left bundle branch block Confirmed by MYRON MENSAH, MAYURI ([id number]), film or videotape editor CODY MCLEAN ([id number]) on 07/11/2025 9:37:58 AM Referred By: ESDRAS Confirmed By: MAYURI SANCHES MD
--- NOTE | 2025-07-10 04:36 | RAD_ITS ---
PROCEDURE: CHEST PA AND LATERAL 07/10/2025 REASON FOR EXAM: DYSPNEA TECHNIQUE: Procedure Code: RADCXR Modality: DX Procedure: CHEST PA AND LATERAL COMPARISON: 07/02/2025. FINDINGS: Mild increase in central pulmonary venous congestion. Mild increase in bilateral basilar atelectatic pulmonary changes. Unremarkable median sternotomy wires. AICD is in good position. Unchanged minimal right pleural effusion. Unchanged passive atelectatic airspace disease in the right lower lobe. Enlarged cardiac silhouette. Normal mediastinum and moise. Normal visualized pulmonary arteries. Atheromatous plaques of the visualized aortic arch and descending thoracic aorta. Diffuse spondylosis of the visualized thoracic spine. Normal visualized ribs, clavicles. Degenerative joint disease. There is no demonstrated abnormality of the visualized soft tissue structures of the upper abdomen. RAD/Chest PA and Lateral IMPRESSION: Mild increase in central pulmonary venous congestion. Mild increase in bilateral basilar atelectatic pulmonary changes. Unremarkable median sternotomy wires. AICD is in good position. Unchanged minimal right pleural effusion. Unchanged passive atelectatic airspace disease in the right lower lobe. Enlarged cardiac silhouette. Reading [facility]
[2025-07-10 04:37] LABS: Hematocrit 31.1 % (40-54); Hemoglobin 10.3 g/dL (13.0-16.5); Immature Granulocytes Count 0.010 X10^3/uL (0.0-0.0); Mean Corp Hgb Conc 33.1 g/dL (32-36); Mean Corpuscular Volume 103.7 fL (80-94); Mean Platelet Vol. 10.8 fl (6.2-12.0); NRBC Flagged by Analyzer 0 % (0-5); POSITIVE MORPHOLOGY YES; Platelet Count 122 K/mm3 (150-450); RBC Distribution Width CV 17.4 % (11.6-14.6); RBC Distribution Width SD 65.7 fl (35.1-43.9); Red Blood Count 3.00 M/mm3 (4.6-6.2); White Blood Count 5.1 K/mm3 (4.4-11.0)
--- OUTSIDE RECORDS SUMMARY | 2025-07-10 04:44 | XMS RPT_ITS | CCD ---
Author Organization [facility] Care Team Providers Care Batchmaker Name Role Phone Arnold Spencer MD Primary Care Provider Jacquelyn DE LA PAZ, Jarvis Albarado Unavailable Dr. Arnold Deshpande Primary Care Provider Dr. Arnold Spencer Referring Provider Dr. Destin Harvey Attending Provider Dr. Alex Covarrubias Emergency Provider Dr. Capri Pablo Admit Provider Unavailable Dr. Capri Pablo Attending Provider Unavailable Dr. Capri Pablo Other Provider Unavailable TanDr. Daniela owens Other Provider Dr. Yaneli Cortés Attending Provider Dr. Yaneli Cortés Other Provider Arnold Spencer MD Primary Care Provider Jacquelyn DE LA PAZ, Jarvis Albarado Unavailable Dr. Arnold Deshpande Primary Care Provider Dr. Destin Harvey Attending Provider Dr. Arnold Spencer Referring Provider Katie Mariscal Attending Provider Unavailable Dr. Manjit Chavez Emergency Provider Dr. Dav Renteria Admit Provider Dr. Dav Renteria Attending Provider Dr. aDv Renteria Other Provider Dr. Jered Penn Other Provider Dr. Destin Harvey Other Provider Unavailable Primary Care Provider Dr. Arnold Deshpande Primary Care Provider Wes, Dr. Weir Attending Provider Vladimir PHARMACEUTICAL SCIENTIST, PHARMACEUTICAL SCIENTIST-C Monik Attending Provider Dr. Arnold Spencer Primary Care Provider Dr. Alex Covarrubias Emergency Provider Dr. Capri Pablo Admit Provider Unavailable Bev, Dr. Meyer Attending Provider Unavailable Bev, Dr. Meyer Other Provider Unavailable TanDr. Daniela owens Other Provider Milana, Dr. Yaneli Hendrix Attending Provider Milana, Dr. Yaneli Hendrix Other Provider Dr. Arnold Spencer Referring Provider Wes, Dr. Weir Attending Provider Dr. Manjit Chavez Emergency Provider [phone] Dr. Dav Renteria Admit Provider Dr. Dav Renteria Attending Provider Dr. Dav Renteria Other Provider Dr. Jered Penn Other Provider Wes, Dr. Weir Other Provider Vladimir PHARMACEUTICAL SCIENTIST, PHARMACEUTICAL SCIENTIST-C Monik Attending Provider Dr. Stephon Larios Attending Provider Arnold Spencer MD Primary Care Provider Jacquelyn Conley RN Unavailable Dr. Arnold Deshpande Primary Care Provider Dr. Arnold Spencer Referring Provider Wes, Dr. Weir Attending Provider Katie Mariscal Attending Provider Unavailable Brody PHARMACEUTICAL SCIENTIST, PHARMACEUTICAL SCIENTIST-C Tess Albarado Attending Provider ELENA BUNCH Referring Unavailable ARNOLD SPENCER Primary Care Unavailable Palomo, Dr. Arnold Morillo Primary Care Provider Palomo, Dr. Arnold Morillo Referring Provider Dr. Destin Harvey Attending Provider [phone] Brody PHARMACEUTICAL SCIENTIST, PHARMACEUTICAL SCIENTIST-C Tess Albarado Attending Provider Katie Mariscal Attending Provider Unavailable Jarvis DE LA PAZ, Jacquelyn Albarado Unavailable Unavailabl e Palomo, Dr. Arnold Morillo Primary Care Provider Palomo, Dr. Arnold Morillo Referring Provider Katie Mariscal Attending Provider Unavailable Vladimir PHARMACEUTICAL SCIENTIST, PHARMACEUTICAL SCIENTIST-C Monik Attending Provider Talampas, Dr. Arnold Morillo Primary Care Provider Talampcarito, Dr. Arnold Morillo Referring Provider Talampas, Dr. Arnold Morillo Primary Care Provider Talampcarito, Dr. Arnold Morillo Referring Provider Vladimir PHARMACEUTICAL SCIENTIST, PHARMACEUTICAL SCIENTIST-C Monik Attending Provider MD Cheli Grace Primary Care Provider Dr. Deon Joy Emergency Provider Dr. Capri Scott Admit Provider Unavailabl e Dr. Capri Scott Other Provider Unavailabl e Milana, Dr. Yaneli Hendrix Attending Provider [phone] Dr. Yaneli Cortés Other Provider Dr. Dav Renteria Other Provider MD Cheli Grace Primary Care Provider Dr. Destin Harvey Attending Provider [phone] Capri Scott Referring Provider Unavail able CAT ART Referring Unavailable ARNOLD SPENCER Primary Care Unavailable ARNOLD SPENCER Primary Care Unavailable PINEDA, DELLA Referring Unavailable [...] Unavailable TALAMPAS, ARNOLD D Primary Care Unavailable Dr. Kahlil Kennedy Attending Provider MD Cheli Grace Referring Provider MD Jadon Montano Emergency Provider Dr. Gómez Nowak Attending Provider Dr. Gómez Nowak Other Provider MD Cheli Grace Primary Care Provider Dr. Destin Harvey Attending Provider Vladimir RAMOS, PHARMACEUTICAL SCIENTIST-C Monik Attending Provider Dr. Devin Kennedy Referring Provider Dr. Devin Kennedy Emergency Provider Dr. Dav Renteria Admit Provider Dr. Dav Renteria Attending Provider Dr. Sanjeev Sandhu Other Provider RICHARD Montgomery-Tee Parikh Attending Provider MD Cheli Grace Primary Care Provider Dr. Destin Harvey Attending Provider Dr. Capri Scott Referring Provider Unavail able Dr. Deon Joy Emergency Provider Dr. Capri Scott Admit Provider Unavailabl e Dr. Capri Scott Other Provider Unavailabl e Milana, Dr. Yaneli Hendrix Attending Provider Milana, Dr. Yaneli Hendrix Other Provider Dr. Dav Renteria Other Provider MD Cheli Grace Referring Provider Dr. Kahlil Kennedy Attending Provider MD Jadon Montano Emergency Provider Dr. Gómez Nowak Attending Provider Dr. Gómez Nowak Other Provider Vladimir RAMOS, PHARMACEUTICAL SCIENTIST-C Monik Attending Provider Dr. Devin Kennedy Referring Provider Dr. Devin Kennedy Emergency Provider Dr. Dav Renteria Admit Provider Dr. Dav Renteria Attending Provider Dr. Sanjeev Sandhu Other Provider RICHARD Montgomery-Tee Parikh Attending Provider Dr. Sanjeev Sandhu Attending Provider [phone] Dr. Jose Soto Other Provider Dr. Jose Soto Attending Provider MD Cheli Grace Primary Care Provider Dr. Destin Harvey Attending Provider Dr. Capri Scott Referring Provider Unavail able Dr. Deon Joy Emergency Provider Dr. Capri Scott Admit Provider Unavailabl Dr. Capri Goldstein Other Provider Unavailabl e Milana, Dr. Yaneli Hendrix Attending Provider Milana, Dr. Yaneli Hendrix Other Provider Dr. Dav Renteria Other Provider MD Cheli Grace Referring Provider Dr. Kahlil Kennedy Attending Provider MD Jadon Montano Emergency Provider Dr. Gómez Nowak Attending Provider Dr. Gómez Nowak Other Provider Vladimir PHARMACEUTICAL SCIENTIST, PHARMACEUTICAL SCIENTIST-C Monik Attending Provider Dr. Devin Kennedy Referring Provider Dr. Devin Kennedy Emergency Provider Dr. Dav Renteria Admit Provider Dr. Dav Renteria Attending Provider Dr. Sanjeev Sandhu Other Provider STEVE Montgomery Attending Provider Dr. Sanjeev Sandhu Attending Provider Dr. Jose Soto Other Provider [phone] Jose Soto Attending Provider MD Cheli Grace Primary Care Provider Dr. Destin Harvey Attending Provider Vladimir RAMOS, PHARMACEUTICAL SCIENTIST-C Monik Attending Provider Dr. Devin Kennedy Referring Provider Dr. Devin Kennedy Emergency Provider Dexter, Dr. Demarco Admit Provider Dr. Dav Renteria Attending Provider Dr. Dav Renteria Other Provider Dr. Gómez Nowak Attending Provider Dr. Gómez Nowak Other Provider Dr. Sanjeev Sandhu Other Provider STEVE Montgomery Attending Provider Dr. Sanjeev Sandhu Attending Provider Dr. Jose Soto Other Provider Dr. Jose Soto Attending Provider Palomo MENSAH Arnold Morillo Primary Care Provider Jarvis RN, Jacquelyn Munroe MD, Kota Orozco Primary Care Provider Lesly MENSAH, Cheli Primary Care Provider Lesly MENSAH, Cheli Referring Provider Dr. Felipe Trivedi MD Attending Provider Wes MENSAH, Dr. Weir Attending Provider Rolf PHARMACEUTICAL SCIENTIST-C, Yolanda Attending Provider Anirudh RODRIGUEZ, Ashlee Albarado Attending Provider Dr. Felipe Trivedi MD Referring Provider Ashlee Schulz Referring Provider Ashlee Schulz Other Provider Cuco MENSAH, Dr. Mccall Attending Provider Dr. Destin Harvey MD Referring Provider Lesly MENSAH, Cheli Primary Care Provider Lesly MENSAH, Cheli Referring Provider Dr. Destin Harvey MD Attending Provider Dr. Felipe Trivedi MD Attending Provider Dr. Felipe Trivedi MD Referring Provider Lesly MENSAH, Cheli Primary Care Provider Lesly MENSAH, Cheli Referring Provider Rolf ADANC, Yolanda Attending Provider Dr. Felipe Trivedi MD Referring Provider Lesly MENSAH, Cheli Primary Care Provider Lesly MENSAH, Cheli Referring Provider Dr. Destin Harvey MD Attending Provider Dr. Felipe Trivedi MD Referring Provider Lesly MENSAH, Cheli Primary Care Provider Lesly MENSAH, Chalon Referring Provider [phone] Shikha MENSAH, Dr. Wang Attending Provider Rolf PHARMACEUTICAL SCIENTIST-CYolanda Attending Provider Dr. Felipe Trivedi MD Referring Provider Lesly MENSAH, Chalon Primary Care Provider Lesly MENSAH, Cheli Referring Provider Shikha MENSAH, Dr. Wang Attending Provider Katie Mariscal Attending Provider Unavailable Veronica PHARMACEUTICAL SCIENTIST-CHaile Attending Provider Lesly, Chalon Referring Unavailable Lesly, Chalon Primary Care Unavailable Rolf PHARMACEUTICAL SCIENTIST, Yolanda Attending Unavailable Lesly, Chalon Primary Care Unavailable Wes, [place] Attending Unavailable Wes, [place] Referring Unavailable Lesly, Chalon Primary Care Unavailable Florecita Wells Attending Unavailable Lesly, Chalon Primary Care Unavailable Lesly, Chalon Referring Unavailable Rolf PHARMACEUTICAL SCIENTIST, Yolanda Attending Unavailable Lesly, Chalon Primary Care Unavailable Felipe Trivedi Consulting Unavailable Vladimir PHARMACEUTICAL SCIENTIST, Monik Attending Unavailable Vladimir PHARMACEUTICAL SCIENTIST, Monik Referring Unavailable Cuco, Jayaprakas Attending Unavailable Lesly, Chalon Primary Care Unavailable Wes, [place] Referring Unavailable White, Stephanie L Consulting Unavailable Lesly, Chalon Primary Care Unavailable Hedy Wells Attending Unavailable White, Stephanie L Admitting Unavailable Sanjeev Sandhu Consulting Unavailable Lesly, Chalon Primary Care Unavailable Florecita Wells Attending Unavailable Florecita Wells Referring Unavailable Cuco, Jayapradamons Attending Unavailable Cuco, Jayaprakas Referring Unavailable Lesly, Chalon Primary Care Unavailable Rolf PHARMACEUTICAL SCIENTIST, Yolanda Consulting Unavailable White, Stephanie L Attending Unavailable Lesly, Chalon Primary Care Unavailable White, Stephanie L Admitting Unavailable White, Stephanie L Consulting Unavailable Lesly, Chalon Referring Unavailable Lesly, Chalon Primary Care Unavailable Felipe Trivedi Attending Unavailable Lesly, Chalon Referring Unavailable Lesly, Chalon Primary Care Unavailable Felipe Trivedi Attending Unavailable Lesly, Chalon Primary Care Unavailable Wes, Destin Attending Unavailable Veronica PHARMACEUTICAL SCIENTIST, Haile Hess Attending Unavailable Lesly, Chalon Referring Unavailable Lesly, Chalon Primary Care Unavailable Lesly, Chalon Primary Care Unavailable Lesly, Chalon Referring Unavailable Felipe Trivedi Attending Unavailable Lesly, Chalon Referring Unavailable Lesly, Chalon Primary Care Unavailable Praunique, Felipe Attending Unavailable Stephanie Acosta Admitting Unavailable Lesly, Chalon Primary Care Unavailable Hedy Wells Attending Unavailable Stephanie Acosta Consulting Unavailable Phoebe, Sanjeev Consulting Unavailable Hedy Wells Consulting Unavailable Sanjeev Sandhu Attending Unavailable Lesly, Chalon Primary Care Unavailable Justyna Pereyra Attending Unavailabl e Lesly, Chalon Referring Unavailable Lesly, Chalon Primary Care Unavailable Anirudh RODRIGUEZ, Ashlee Albarado Attending Unavail able Lesly, Chalon Referring Unavailable Lesly, Chalon Primary Care Unavailable Rolf PHARMACEUTICAL SCIENTIST, Yolanda Attending Unavailable Lesly, Chalon Primary Care Unavailable Wes, [place] Attending Unavailable Lesly, Chalon Primary Care Unavailable Lesly, Chalon Referring Unavailable Anirudh RODRIGUEZ, Ashlee Albarado Attending Unavail able Anirudh RODRIGUEZ, Ashlee Albarado Referring Unavail able Anirudh RODRIGUEZ, Ashlee Albarado Consulting Unavail able Lesly, Chalon Primary Care Unavailable Wes, [place] Attending Unavailable Lesly, Chalon Primary Care Unavailable Prah Felipe Referring Unavailable Prah, Felipe Attending Unavailable Lesly, Chalon Referring Unavailable Lesly, Chalon Primary Care Unavailable Prah, Felipe Attending Unavailable Lesly, Chalon Primary Care Unavailable Wes, [place] Attending Unavailable Lesly, Chalon Referring Unavailable Lesly, Chalon Primary Care Unavailable Prah, Felipe Attending Unavailable Lesly, Chalon Referring Unavailable Lesly, Chalon Primary Care Unavailable Katie Mariscal Attending Unavailable Lesly, Chalon Referring Unavailable Lesly, Chalon Primary Care Unavailable Rolf PHARMACEUTICAL SCIENTIST, Yolanda Attending Unavailable Lesly, Chalon Primary Care Unavailable Lesly, Chalon Referring Unavailable Rolf PHARMACEUTICAL SCIENTIST, Yolanda Attending Unavailable Lesly, Chalon Primary Care Unavailable Wes, [place] Attending Unavailable Lesly, Chalon Referring Unavailable Lesly, Chalon Primary Care Unavailable Prah, Felipe Attending Unavailable Lesly, Chalon Referring Unavailable Lesly, Chalon Primary Care Unavailable Rolf PHARMACEUTICAL SCIENTIST, Yolanda Attending Unavailable Lesly, Chalon Primary Care Unavailable Ashlee Schulz Attending Unavail able Ashlee Schulz Referring Unavail able Allergies Allergy Classification Reported Allergen(s) Allergy Type Date of Onset Reaction(s) Facility (20 sources) amLODIPine; Translations: [AMLODIPINE BESYLATE] Drug Allergy 9 Other: See Comments [facility] (13 sources) HMG-CoA reductase inhibitor; Translations: [QVZTZOL-LDT-TGL REDUCTASE INHIBITORS] Drug Intolerance 4 Other: See Comments [facility] (20 sources) Indomethacin; Translations: [INDOMETHACIN SODIUM] Drug Allergy 2 GI Upset [facility] (20 sources) Lisinopril; Translations: [LISINOPRIL] Drug Allergy 1 Cough [facility] Work Phone: (20 sources) HMG-CoA reductase inhibitor Drug Intolerance 4 Other: See Comments [facility] (10 sources) levoFLOXacin Drug Allergy 5 unknown [facility] (1 source) levoFLOXacin Drug Allergy 5 [facility] Repository Medications Current Medications Medication Drug Class(es) Dates Sig (Normalized) Sig (Original) [id number] 200 actuat albuterol 0.09 mg/actuat metered dose inhaler (20 sources) beta2-Adrenergic Agonist Start: 01-06-2022 End: 02-05-2022 take 2 puff(s) by inhalation every four hours as needed for wheezing albuterol HFA (PROVENTIL HFA, VENTOLIN HFA) 90 mcg/actuation inhaler Inhale 2 Puffs as instructed every 4 hours as needed for wheezing/shortnes s of breath. 6.7 g 01/06/2022 Active Start: 12-25-2020 Albuterol Sulf ate 90 mcg/actuation HFA aerosol inhaler Active 2 NMA INHALATION Q4H as needed for shortness of breath or wheezing 8.5 6 December 25, 2020 1:00am administer with spacer Start: 12-25-2020 take 1 puff(s) by in halation every four hours Albuterol Sulfate Active 2 PUFF INHALATION Q4H 8.5 December 25, 2020 1:00am administer with spacer Start: 12-25-2020 End: 01-06-2022 albuterol HFA (PROVENTIL HFA , VENTOLIN HFA) 90 mcg/actuation inhaler Inhale 2 Puffs as instructed. 01/06/2022 Discontinued Comment on above: Inhale 2 Puffs as in structed every 4 hours as needed for wheezing/shortness of breath. allopurinol 100 mg oral tablet (20 sources) Xanthine Oxidase Inhibitor Start: 11-24-19 take 1 tablet by mouth twice daily Allopurinol 100 MG tablet Active 100 mg PO TWICE A DAY November 24, 2018 1:00am Gout Start: 11-24-2018 End: 02-02-2023 take 2 tablets by mouth once daily allopurinol (ZYLOPRIM) 100 mg tablet Indications: Hyperuricemia Take 2 tablets by mouth once daily. For gout. 180 tablet 1 10/07/2020 05/05/2021 Discontinued Start: 11-24-2018 take 200 mg by mouth once thu y Allopurinol Active 200 MG PO DAILY November 24, 2018 12:10pm Comment on above: Take 2 tablets by mo [facility] once daily. For gout. amoxicillin 875 mg / clavulanate 125 mg oral tablet (1 source) Penicillin-class Antibacterial Start: 11-20-19 End: 11-27-19 take 1 tablet by mouth twice daily at mealtime amoxicillin-clavulan ic acid (AUGMENTIN) 875-125 mg per tablet Indications: Infiltrate of right lung present on chest x-ray , Pleural effusion on right Take 1 tablet by mouth twice daily for 7 days. Take with food 14 tablet 0 11/20/2022 11/27/2022 Active Comment on above: [facility]. Take with food ascorbic acid 500 mg oral tablet (20 sources) Vitamin C Start: 05-31-20 take 1 tablet by mouth once daily Ascorbic Acid (Vitamin C) 500 mg tablet Active 500 mg PO DAILY May 31, 2024 12:00am Comment on above: Take 500 mg by mouth once daily. atorvastatin 40 mg oral tablet (20 sources) HMG-CoA Reductase Inhibitor Start: 11-24-19 End: 10-09-20 take 1 tablet by mouth at bedtime Atorvastatin 40 MG tablet Active 40 mg PO AT BEDTIME November 24, 2018 1:00am Cholesterol Comment on above: Take 1 tablet by terence once daily. azithromycin 250 mg oral tablet (1 source) Macrolide Antimicrobial Start: 11-20-19 End: 11-25-19 23 azithromycin (ZITHROMAX Z-WENDY) 250 mg tablet Indications: Infiltrate of right lung present on chest x-ray , Pleural effusion on right Take 2 tablets day one, then, 1 tablet daily until gone. Take with food. 6 tablet 0 11/20/2022 11/25/2022 Active Comment on above: Take 2 tablets day o ne, then, 1 tablet daily until gone. Take with food. benzonatate 100 mg oral capsule (20 sources) Non-narcotic Antitussive Start: 11-19-19 take 100-200 mg by mouth every eight hours as needed benzonatate (TESSALON PERLES) 100 mg capsule Take 1-2 capsules by mouth three times daily as needed for cough. 60 capsule 1 11/19/2022 Active Start: 05-26-2022 take 1 capsule by mo uth every eight hours as needed benzonatate (TESSALON PERLES) 100 mg capsule Take 1 capsule by mouth three times daily as needed for cough. 30 capsule 1 05/26/2022 Active Start: 01-05-2022 take 200 mg by mouth twice daily Benzonatate Active 200 MG PO TWICE A DAY January 05, 2022 7:59pm End: 05-26-2022 take 1 capsule by mouth every eight hours as needed Benzonatate 200 mg capsule Take 200 mg by mouth three times daily as needed. 0 05/26/2022 Discontinued Comment on above: Take 200 mg by mouth three times daily as needed. Take 1 capsule by mo uth three times daily as needed for cough. Take 1-2 capsules by mouth three times daily as needed for cough. calcium carbonate 1500 mg oral tablet (2 sources) Start: 12-25-2020 take 1 tablet by mouth once daily Calcium Carbonate (Calcium 600) 600 mg calcium (1,500 mg) tablet Active 600 MG PO DAILY December 25, 2020 9:41am carvedilol 25 mg oral tablet (20 sources) alpha-Adrenergic Sury, beta-Adrenergic Sury Start: 02-22-2024 End: 07-15-2024 take 1 tablet by mouth at mealtime Carvedilol 25 mg tablet Active 25 mg PO AT BEDTIME July 15, 2024 12:00am must administer with a meal/food Start: 11-17-2023 End: 02-22-2024 take 1 tablet by mouth twice daily at mealtime Carvedilol 25 mg tablet Discontinued 25 mg PO TWICE A DAY November 17, 2023 1:00am February 22, 2024 3:04pm blood pressure must administer with a meal/food Start: 06-30-2023 End: 11-17-2023 take 2 tablets by mouth twice daily Carvedilol 12.5 mg tablet Discontinued 25 mg PO TWICE A DAY 180 3 June 30, 2023 3:22pm November 17, 2023 2:01pm HTN Start: 07-16-2022 End: 06-30-2023 take 1 tablet by mouth twice daily Carvedilol 12.5 mg tablet Discontinued 12.5 mg PO TWICE A DAY 180 July 16, 2022 4:01pm June 30, 2023 3:24pm HTN Start: 07-16-2022 End: 11-17-2023 take 25 mg by mouth twice daily Carvedilol Discontinue d 25 MG PO TWICE A DAY 180 June 30, 2023 3:22pm November 17, 2023 2:01pm Start: 05-07-2022 End: 07-16-2022 take 12.5 mg by mouth twice daily Carvedilol Discontinued 12.5 MG PO TWICE A DAY May 07, 2022 12:00am July 16, 2022 4:01pm Start: 03-06-2022 End: 07-16-2022 Carvedilol 25 mg tablet Discontinued 12.5 mg PO TWICE A DAY May 07, 2022 12:00am July 16, 2022 4:01pm HTN Start: 03-06-2022 End: 07-16-2022 Comment on above: TAKE 1 TABLET BY TERENCE TH TWICE DAILY (MUST ADMINISTER WITH A MEAL/FOOD) Take 12.5 mg by mout h twice daily with meals. cholecalciferol 0.05 mg oral tablet (20 sources) Vitamin D Start: 03-09-20 take 1 tablet by mouth once daily Cholecalciferol (Vitamin D3) 50 mcg (2,000 unit) tablet Active 50 ug PO DAILY March 09, 2022 12:00am bone health Start: 12-25-2020 End: 03-09-2022 take 1 capsule by mouth once daily Cholecalciferol (Vitamin D3) 25 mcg (1,000 unit) capsule Discontinued 75 ug PO DAILY December 25, 2020 1:00am March 09, 2022 12:44pm Start: 12-25-2020 End: 03-09-2022 Cholecalciferol, Vitamin D3, 25 mcg (1,000 unit) cap Take by mouth. 12/25/2020 11/18/2021 Discontinued Comment on above: Take 2 capsules by [facility] once daily. citicoline 500 mg oral tablet (2 sources) Start: 12-25-2020 Citicoline ([employer]) 500 mg capsule Active MG PO December 25, 2020 9:42am coenzyme A00-ieblrqi E 100 mg-100 unit capsule (20 sources) Start: 12-25-2020 coenzyme J30-xpnujbv E 100 mg-100 unit capsule Active CAP PO December 25, 2020 9:42am Start: 12-25-2020 End: 09-24-2022 take 1 capsule by mouth once daily coenzyme C45-jbibmfn E 100 mg-100 unit capsule Discontinued 1 CAP PO DAILY December 25, 2020 1:00am September 24, 2022 4:21pm Start: 12-25-2020 End: 09-24-2022 take 1 capsule by mouth once daily coenzyme F49-qzbtage E 100 mg-100 unit capsule Discontinued 1 CAP PO DAILY December 25, 2020 12:00am September 24, 2022 3:21pm Start: 12-25-2020 take 1 capsule by [facility] once daily coenzyme I98-lkechul E 100 mg-100 unit capsule Active 1 CAP PO DAILY December 25, 2020 12:00am Start: 12-25-2020 take 1 capsule by [facility] once daily coenzyme G87-ctvyawi E 100 mg-100 unit capsule Active 1 CAP PO DAILY December 25, 2020 1:00am Start: 12-25-2020 coenzyme Q10-v itamin E 100 mg-100 unit capsule Active CAP PO December 25, 2020 1:00am ferrous sulfate 325 mg delayed release oral tablet (20 sources) Start: 07-15-2024 take 1 tablet by mouth once daily Ferrous Sulfate 325 mg (65 mg iron) tablet,delayed release (DR/EC) Active 325 mg PO DAILY July 15, 2024 12:00am Start: 02-22-2024 End: 05-17-2024 take 1 tablet by mouth once daily Ferrous Sulfate 325 mg (65 mg iron) tablet,delayed release (DR/EC) Discontinued 325 mg PO DAILY February 22, 2024 12:00am May 17, 2024 2:11pm Start: 05-27-2021 End: 11-18-2021 take 1 tablet by mouth every other day ferrous sulfate 325 mg (65 mg iron) tablet Indications: Anemia, unspecified type Take 1 tablet by mouth every other day. 30 tablet 05/27/2021 11/18/2021 Discontinued Lacto 21-Bifido 1-B-Z7-B6-B1 2 ([employer] MEN'S) 50 billion cell -90 mg-30 mcg cap (20 sources) take 1 tablet by terence th every other day Lacto 21-Bifido 9-R-A6-B6-B12 ([employer] MEN'S) 50 billion cell -90 mg-30 mcg cap Take 1 tablet by mouth every other day. Active take 1 tablet by mouth every oth er day Lacto 21-Bifido 4-H-C4-B6-B12 ([employer] MEN'S) 50 billion cell -90 mg-30 mcg cap Take 1 tablet by mouth every other day. 0 Active take 1 tablet by mouth once thu y Lacto 21-Bifido 3-B-N8-B6-B12 ([employer] MEN'S) 50 billion cell -90 mg-30 mcg cap Take 1 tablet by mouth once daily. 0 Active Comment on above: Take 1 tablet by terence th once daily. Take 1 tablet by terence th every other day. mecobalamin 1 mg sublingual tablet (20 sources) Start: 05-31-2024 Mecobalamin (Vitamin B12) 1,000 mcg tablet,disintegrating Active 1000 ug SL DAILY May 31, 2024 12:00am place tablet under tongue and allow to dissolve for at least30 secs before swallowing Start: 12-25-2020 End: 05-17-2024 Mecobalamin (Vitamin B12) 1, 000 mcg tablet,disintegrating Discontinued 1000 ug SL DAILY December 25, 2020 1:00am May 17, 2024 2:11pm supplement place tablet under tongue and allow to dissolve for at least30 secs before swallowing. pt takes in the am Start: 12-25-2020 Mecobalamin (V itamin B12) Active 1000 MCG SL DAILY December 25, 2020 1:[address] place tablet under tongue and allow to dissolve for at least30 secs before swallowing. pt takes in the am Start: 12-25-2020 Multivitamin tablet (8 sources) Start: 03-21-2025 Multivitamin t ablet Active 1 {tbl} PO daily March 21, 2025 12:00am Zgexp-6-NUJ-EPA-Fish Oil 1,000 mg (120 mg-180 mg) cap (20 sources) take 1 capsule by mouth once daily Zmmms-1-NQA-EPA-Fish Oil 1,000 mg (120 mg-180 mg) cap Take 2 g by mouth once daily. Active take 1 capsule by mouth once apolonia ly Fvora-8-CGD-EPA-Fish Oil 1,000 mg (120 mg- 180 mg) cap Take 2 g by mouth once daily. 0 Active Comment on above: Take 2 g by mouth on ce daily. potassium chloride 20 meq extended release oral tablet (20 sources) Start: 12-27-2024 End: 02-21-2025 take 1 tablet by mouth once daily as needed Potassium Chloride 20 mEq tablet extended release Active 20 meq PO daily as needed February 21, 2025 1:39pm Start: 10-31-2024 End: 11-07-2024 take 1 tablet by mouth twice daily Potassium Chloride 20 mEq tablet extended release Discontinued 20 meq PO TWICE A DAY 14 7 0 October 31, 2024 1:00am November 06, 2024 1:00am November 07, 2024 1:09am Start: 09-26-2024 End: 10-06-2024 take 1 tablet by mouth twice daily Potassium Chloride 20 mEq tablet extended release Discontinued 20 meq PO TWICE A DAY 20 10 0 September 26, 2024 1:00am October 05, 2024 1:00am October 06, 2024 1:10am Start: 05-31-2024 End: 09-26-2024 take 1 tablet by mouth once daily Potassium Chloride 20 mEq tablet extended release Discontinued 20 meq PO DAILY May 31, 2024 12:00am September 26, 2024 3:51pm K On Hold: Until otherwise instructed Start: 02-22-2024 End: 05-17-2024 take 1 tablet by mouth once daily Potassium Chloride 20 mEq tablet extended release Discontinued 20 meq PO DAILY February 22, 2024 12:00am May 17, 2024 2:11pm Start: 02-10-2023 potassium chlo ride SR (MICRO-K) 10 mEq CR capsule Take 2 capsules by mouth every Wednesday,Wednesday,Wednesday. Takes Wed/Wed/Wed with Torsemide 0 02/10/2023 Active Start: 11-23-2022 End: 11-30-2023 Potassium Chloride 20 mEq ta blet extended release Discontinued 20 meq PO MOWEFR June 30, 2023 2:56pm November 30, 2023 7:01pm Hypokalemia Start: 11-23-2022 End: 06-30-2023 take 1 tablet by mouth twice daily as needed Potassium Chloride 20 mEq tablet extended release Discontinued 20 meq PO TWICE A DAY as needed for Hypokalemia 180 3 November 23, 2022 3:49pm June 30, 2023 2:58pm Start: 11-20-2022 End: 11-23-2022 take 2 tablets by mouth twice daily as needed Potassium Chloride 10 mEq tablet extended release Discontinued 20 meq PO TWICE A DAY as needed for Hypokalemia November 20, 2022 3:45pm November 23, 2022 3:50pm Start: 08-04-2022 End: 11-20-2022 take 1 tablet by mouth twice daily as needed Potassium Chloride 10 mEq tablet extended release Discontinued 10 meq PO TWICE A DAY as needed for Hypokalemia August 04, 2022 12:00am November 20, 2022 3:51pm Start: 08-04-2022 End: 11-23-2022 take 20 mEq by mouth twice daily Potassium Chloride Discontinued 20 MEQ PO TWICE A DAY November 20, 2022 3:45pm November 23, 2022 3:50pm Start: 06-25-2022 End: 02-09-2023 take 1 capsule by mouth twice daily potassium chloride SR (MICRO-K) 10 mEq CR capsule Take 1 capsule by mouth twice daily. 30 capsule 2 07/21/2022 02/02/2023 Discontinued Start: 01-05-2022 End: 03-06-2022 take 1 tablet by mouth twice daily Potassium Chloride 20 mEq tablet extended release Discontinued 20 meq PO TWICE A DAY 14 January 05, 2022 12:00am March 06, 2022 9:43am Start: 01-05-2022 End: 03-06-2022 Comment on above: Take 1 capsule by mo uth twice daily. Takes Wed/Wed/Sat/Hood n (Haile Martin gave last prescription) Take 2 capsules by m outh every Wednesday,Wednesday,Wednesday. Takes Mon/Wed/Wed with Torsemide PSYLLIUM HUSK, BULK, MISC (20 sources) take 1 dose by mouth once daily as needed PSYLLIUM HUSK, BULK, MISC Take 1 Packet by mouth once daily. Takes as needed Active take 1 dose by mouth once daily as needed PSYLLIUM HUSK, BULK, MISC Take 1 Packet by mouth once daily. Takes as needed 0 Active take 1 dose by mouth once daily PSYLLIUM HUSK, BULK, MISC Take 1 Packet by mouth once daily. 0 Active Comment on above: Take 1 Packet by terence th once daily. Take 1 Packet by terence th once daily. Takes as needed sacubitril 49 mg / valsartan 51 mg oral tablet (20 sources) Angiotensin 2 Receptor Sury Start: 05-31-2024 End: 12-04-2024 Sacubitril-Valsartan (Entresto) 49-51 mg tablet Active 1 {tbl} PO TWICE A DAY 180 3 December 04, 2024 3:08pm Start: 11-17-2023 End: 05-17-2024 Sacubitril-Valsartan (Entres to) 49-51 mg tablet Discontinued 1 {tbl} PO TWICE A DAY November 17, 2023 1:00am May 17, 2024 2:11pm BLOOD PRESSURE Start: 11-17-2023 Start: 05-07-2022 End: 10-17-2023 Start: 04-10-2022 End: 10-17-2023 Sacubitril-Valsartan (Entres to) 49-51 mg tablet Discontinued 1 {tbl} PO TWICE A DAY 180 4 September 30, 2023 3:02pm October 17, 2023 10:25pm heart failure Start: 03-30-2022 End: 04-10-2022 Sacubitril-Valsartan (Entres to) 24-26 mg tablet Discontinued 1 {tbl} PO TWICE A DAY 180 4 April 09, 2022 9:12am April 10, 2022 8:23am Start: 03-30-2022 End: 04-10-2022 Comment on above: Take 1 tablet by terence th twice daily. ubidecarenone 100 mg oral tablet (20 sources) Start: 09-24-2022 take 10 tablets by mouth once daily in the morning Coenzyme Q10 100 mg tablet Active 100 mg PO DAILY September 24, 2022 1:00am general pt takes in the am ubidecarenone 100 mg / vitamin e 150 unt oral capsule (20 sources) Coenzyme O31-Iihhdhu E 100-100 mg cap Take by mouth. Active Comment on above: Take by mouth. ubidecarenone/vitamin E mixed (COQ10 SG 100 ORAL) (20 sources) ubidecarenone/vi ta min E mixed (COQ10 SG 100 ORAL) Take by mouth once daily. Active ubidecarenone/vi tamin E mixed (COQ10 SG 100 ORAL) Take by mouth once daily. 0 Active ubidecarenone/vi tamin E mixed (COQ10 SG 100 ORAL) Take by mouth. 0 Active Comment on above: Take by mouth. Take by mouth once d aily. vitamin b12 1 mg oral tablet (20 sources) Vitamin B12 Start: 01-03-2019 take 1 tablet by mouth once daily cyanocobalamin (VITAMIN B-12) 1,000 mcg tab Take 1 tablet by mouth once daily. 30 tablet 01/03/2019 Active Comment on above: Take 1 tablet by terence th once daily. vitamin b6 100 mg oral tablet (20 sources) Start: 05-31-2024 take 1 tablet by mouth once daily Pyridoxine (Vitamin B6) 100 mg tablet Active 100 mg PO DAILY May 31, 2024 12:00am Start: 07-14-2018 End: 05-17-2024 take 1 tablet by mouth once daily in the morning Pyridoxine (Vitamin B6) 100 MG tablet Discontinued 100 mg PO DAILY November 24, 2018 1:00am May 17, 2024 2:11pm supplement pt takes in the am Comment on above: Take 1 tablet by terence th once daily. Zinc (20 sources) Start: 12-25-2020 take 50 mg by mouth once daily Zinc Active 50 MG PO DAILY December 25, 2020 9:40am Start: 12-25-2020 End: 07-15-2022 take 1 tablet by mouth once daily Zinc 50 mg tablet Discontinued 50 mg PO DAILY December 25, 2020 1:00am July 15, 2022 11:32am supplement Start: 12-25-2020 End: 07-15-2022 take 1 tablet by mouth once daily Zinc 50 mg tablet Discontinued 50 mg PO DAILY December 25, 2020 1:00am July 15, 2022 11:32am Start: 12-25-2020 End: 07-15-2022 take 50 mg by mouth once daily Zinc Discontinued 50 MG PO DAILY December 25, 2020 12:00am July 15, 2022 10:32am Start: 12-25-2020 End: 07-15-2022 take 50 mg by mouth once daily Zinc Discontinued 50 MG PO DAILY December 25, 2020 1:00am July 15, 2022 11:32am Start: 12-25-2020 take 50 mg by mouth once daily Zinc Active 50 MG PO DAILY December 25, 2020 1:00am End: 07-21-2022 take 1 tablet by mouth once daily Zinc 50 mg tab Take 50 mg by mouth once daily. 07/21/2022 Discontinued End: 07-21-2022 take 1 tablet by mouth once daily Zinc 50 mg tab Take 50 mg by mouth once daily. 0 07/21/2022 Discontinued take 1 tablet by terence th once daily Zinc 50 mg tab Take 50 mg by mouth once daily. 0 Active Comment on above: Take 50 mg by mouth once daily. zinc gluconate 50 mg oral tablet (20 sources) Start: 05-31-2024 take 1 tablet by mouth once daily Zinc Gluconate 50 mg tablet Active 50 mg PO DAILY May 31, 2024 12:00am Start: 02-22-2024 End: 05-17-2024 take 1 tablet by mouth once daily Zinc Gluconate 50 mg tablet Discontinued 50 mg PO DAILY February 22, 2024 12:00am May 17, 2024 2:11pm (16 sources) Start: 11-17-2023 Start: 12-25-2020 End: 03-06-2022 Start: 12-25-2020 End: 07-15-2022 Start: 12-25-2020 End: 09-24-2022 Completed/Discontinued Medications Medication Drug Class(es) Dates Sig (Normalized) Sig (Original) 8 hr acetaminophen 650 mg extended release oral tablet (20 sources) Start: 11-24-2018 End: 12-25-2020 take 1 tablet by mouth four times daily as needed for pain Acetaminophen 650 MG tablet extended release Discontinued 650 mg PO 4 TIMES DAILY as needed for Pain November 24, 2018 1:00am December 25, 2020 9:31am apixaban 2.5 mg oral tablet (20 sources) Factor Xa Inhibitor Start: 04-23-2020 End: 12-04-2024 take 1 tablet by mouth twice daily Apixaban 2.5 mg tablet Discontinued 2.5 mg PO TWICE A DAY 180 4 September 30, 2023 3:02pm December 04, 2024 3:18pm Blood thinner Comment on above: Take 1 tablet by terence th twice daily. apple cider vinegar 500 mg oral tablet (20 sources) Start: 12-25-2020 End: 03-06-2022 Apple Cider Vinegar 500 mg tablet Discontinued mg PO December 25, 2020 1:00am March 06, 2022 9:45am Comment on above: Take by mouth. calcium ascorbate 500 mg oral tablet (20 sources) Start: 12-25-2020 End: 05-17-2024 take 1 tablet by mouth once daily Ascorbate Calcium (Vitamin C) 500 mg tablet Discontinued 500 mg PO DAILY December 25, 2020 1:00am May 17, 2024 2:12pm supplement Start: 12-25-2020 take 500 mg by mouth twice apolonia ly Ascorbate Calcium (Vitamin C) Active 500 MG PO TWICE A DAY December 25, 2020 9:41am Coenzyme F41-Vlxzpyb E 100-1 00 mg-unit capsule (10 sources) Start: 12-25-2020 End: 09-24-2022 Coenzyme G31-Noxuehh E 100-1 00 mg-unit capsule Discontinued 1 NMA PO DAILY December 25, 2020 1:00am September 24, 2022 4:21pm supplement Start: 12-25-2020 End: 09-24-2022 Coenzyme L72-Kztmbfg E 100-1 00 mg-unit capsule Discontinued 1 NMA PO DAILY December 25, 2020 1:00am September 24, 2022 4:21pm furosemide 40 mg oral tablet (20 sources) Loop Diuretic Start: 11-30-2023 End: 02-21-2025 take 1 tablet by mouth once daily Furosemide 40 mg tablet Discontinued 40 mg PO DAILY July 17, 2024 3:24pm February 21, 2025 1:40pm edema Start: 06-17-2022 End: 07-23-2022 furosemide (LASIX) 20 mg tab let Indications: Chronic 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) Take 1 tablet by mouth once daily. x 7 days then discontine 7 tablet 0 07/10/2022 07/10/2022 Discontinued Start: 01-05-2022 End: 03-06-2022 take 1 tablet by mouth once daily Furosemide (Lasix) 20 mg tablet Discontinued 20 mg PO DAILY 7 0 January 05, 2022 12:00am March 06, 2022 9:44am Comment on above: Take 1 tablet by terence th once daily for 7 days. Take 1 tablet by terence th once daily. Take 1 tablet by terence th once daily. x 7 days then discontine Garlic (20 sources) Non-Standardized Food Allergenic Extract Start: 12-25-2020 End: 03-06-2022 take 1000 mg by mouth after mealtime Garlic Discontinued 1000 MG PO after meals December 25, 2020 9:41am March 06, 2022 9:44am Start: 12-25-2020 End: 03-06-2022 take 1 capsule by mouth after mealtime Garlic 1,000 mg capsule Discontinued 1000 mg PO after meals December 25, 2020 1:00am March 06, 2022 9:44am Start: 12-25-2020 End: 03-06-2022 Start: 12-25-2020 End: 03-06-2022 take 1000 mg by mouth after mealtime Garlic Discontinued 1000 MG PO after meals December 25, 2020 12:00am March 06, 2022 8:44am Start: 12-25-2020 End: 03-06-2022 take 1000 mg by mouth after mealtime Garlic Discontinued 1000 MG PO after meals December 25, 2020 1:00am March 06, 2022 9:44am hydroCHLOROthiazide 25 mg oral tablet (3 sources) Thiazide Diuretic Start: 06-15-2022 End: 06-22-2022 take 1 tablet by mouth once daily hydroCHLOROthiazide (HYDRODIURIL, ESIDRIX) 25 mg tablet Take 1 tablet by mouth once daily for 7 days. 7 tablet 0 06/15/2022 Active Comment on above: Take 1 tablet by terence th once daily for 7 days. hydroCHLOROthiazide 12.5 mg / lisinopril 20 mg oral tablet (20 sources) Thiazide Diuretic, Angiotensin Converting Enzyme Inhibitor Start: 11-24-2018 End: 12-03-2020 Lisinopril-Hydrochlorot hiazide 1 EACH tablet Discontinued 1 {tbl} PO TWICE A DAY November 24, 2018 1:00am December 03, 2020 12:37pm BP Start: 11-24-2018 End: 12-03-2020 take 1 tablet by mouth twice daily Lisinopril-Hydrochlorothiazide Discontin ued 1 TABLET PO TWICE A DAY November 24, 2018 1:00am December 03, 2020 12:37pm Start: 11-24-2018 End: 12-03-2020 Lactobacillus acidophilus (14 sources) Start: 11-17-2023 End: 05-31-2024 Lactobacillus acidophilus (P robiotic Acidophilus) Discontinued 1 NMA PO every Wednesday, , , WedNovember 17, 2023 1:00am May 31, 2024 4:03pm PROBIOTIC Start: 11-17-2023 End: 05-31-2024 Lactobacillus acidophilus (P robiotic Acidophilus) Discontinued 1 NMA PO every Wednesday, , WedNovember 17, 2023 1:00am May 31, 2024 4:03pm Start: 11-17-2023 take 1 capsule by mouth once L actobacillus acidophilus Active 1 CAP PO every Wednesday, , WedNovember 17, 2023 1:00am Start: 11-17-2023 take 1 capsule by mouth once L actobacillus acidophilus Active 1 CAP PO every Wednesday, , WedNovember 17, 2023 12:00am lansoprazole 30 mg delayed release oral capsule (6 sources) Proton Pump Inhibitor Start: 06-05-2022 End: 07-10-2022 take 1 capsule by mouth twice daily before mealtime lansoprazole (PREVACID) 30 mg capsule Take 1 capsule by mouth twice daily. 1/2 hr before meal. 180 capsule 3 06/05/2022 07/10/2022 Discontinued Comment on above: Take 1 capsule by mo [facility] twice daily. 1/2 hr before meal. levoFLOXacin 500 mg oral tablet (20 sources) Quinolone Antimicrobial Start: 09-22-2023 End: 10-17-2023 take 1 tablet by mouth once daily Levofloxacin 500 mg tablet Discontinued 500 mg PO DAILY 5 September 22, 2023 1:00am October 17, 2023 10:25pm lisinopril 20 mg oral tablet (20 sources) Angiotensin Converting Enzyme Inhibitor Start: 12-03-2020 End: 12-25-2020 take 1 tablet by mouth twice daily Lisinopril 20 MG tablet Discontinued 20 mg PO TWICE A DAY 60 0 December 03, 2020 1:00am December 25, 2020 9:36am Start: 05-10-2020 End: 11-08-2020 take 1 tablet by mouth twice daily lisinopril (ZESTRIL, PRINIVIL) 20 mg tablet Take 1 tablet by mouth twice daily. 180 tablet 1 05/10/2020 11/08/2020 Discontinued loperamide hydrochloride 2 mg oral capsule (20 sources) Opioid Agonist Start: 05-17-2024 End: 05-31-2024 take 1 capsule by mouth every six hours as needed Loperamide (Anti-Diarrheal (Loperamide)) 2 mg capsule Discontinued 2 mg PO EVERY 6 HOURS as needed May 17, 2024 12:00am May 31, 2024 4:03pm Start: 07-15-2022 End: 06-30-2023 take 1 capsule by mouth every four hours as needed for diarrhea Loperamide 2 mg Capsule Discontinued 2 mg PO EVERY 4 HOURS NEEDED as needed for Diarrhea 0 July 15, 2022 12:00am June 30, 2023 2:58pm OTC take 1 capsule by mo [facility] every six hours as needed loperamide (IMODIUM) 2 mg cap(s) Take 2 mg by mouth four times daily as needed. Active Comment on above: Take 2 mg by mouth f our times daily as needed. losartan potassium 50 mg oral tablet (20 sources) Angiotensin 2 Receptor Sury Start: End: take 1 tablet by mouth twice daily Losartan 50 mg tablet Discontinued 50 mg PO TWICE A DAY December 25, 2020 1:00am March 30, 2022 10:20am Start: 12-11-2020 End: 05-26-2022 take 1 tablet by mouth once daily losartan (COZAAR) 50 mg tablet Take 1 tablet by mouth once daily. 90 tablet 3 01/27/2021 02/12/2022 Discontinued Comment on above: [facility] magnesium chloride 598 mg delayed release oral tablet (20 sources) Start: 11-18-2021 End: 05-26-2022 take 2 tablets by mouth once daily Magnesium Chloride (SLOW-MAG) 71.5 mg TbEC Indications: Hypomagnesemia Take 2 tablets by mouth once daily. 180 tablet 1 11/18/2021 05/26/2022 Discontinued Start: 12-25-2020 End: 03-06-2022 take 1 tablet by mouth once daily magnesium chloride 64 mg tablet,extended release Discontinued 64 MG PO DAILY December 25, 2020 9:40am March 06, 2022 9:44am Start: 12-25-2020 End: 03-06-2022 take 1 tablet by mouth once daily Magnesium Chloride 64 mg tablet extended release Discontinued 64 mg PO DAILY December 25, 2020 1:00am March 06, 2022 9:44am Start: 12-25-2020 End: 03-06-2022 take 1 tablet by mouth once daily magnesium chloride 64 mg tablet,extended release Discontinued 64 MG PO DAILY December 25, 2020 12:00am March 06, 2022 8:44am Start: 12-25-2020 End: 03-06-2022 take 1 tablet by mouth once daily magnesium chloride 64 mg tablet,extended release Discontinued 64 MG PO DAILY December 25, 2020 1:00am March 06, 2022 9:44am Start: 12-11-2020 End: 11-18-2021 take 1 tablet by mouth once daily Magnesium Chloride (SLOW-MAG) 71.5 mg TbEC Indications: Hypomagnesemia Take 1 tablet by mouth once daily. 90 tablet 1 05/05/2021 11/18/2021 Discontinued Comment on above: Take 2 tablets by [facility] once daily. magnesium oxide 400 mg oral tablet (20 sources) Start: 11-17-2023 End: 05-31-2024 take 1 tablet by mouth once daily Magnesium Oxide 400 mg (241.3 mg magnesium) tablet Discontinued 400 mg PO DAILY November 17, 2023 1:00am May 31, 2024 3:59pm SUPPLEMENT Start: 07-15-2022 End: 10-17-2023 take 1 tablet by mouth once daily Magnesium Oxide 400 mg magnesium tablet Discontinued 400 mg PO DAILY September 24, 2022 4:22pm October 17, 2023 10:25pm SUPPLEMENT Start: 07-15-2022 End: 09-24-2022 take 2 tablets by mouth twice daily Magnesium Oxide 400 mg magnesium tablet Discontinued 400 mg PO TWICE A DAY 60 0 July 15, 2022 12:00am September 24, 2022 4:23pm Repeat lab BMP and magnesium in 1 week. Hold if serum magnesium more than 2.0 Comment on above: Take 400 mg by mouth once daily. Take 1 tablet by terence th once daily. metoprolol tartrate 50 mg oral tablet (20 sources) beta-Adrenergic Sury Start: 12-25-2020 End: 03-10-2022 take 0.5 tablet by mouth twice daily metoprolol tartrate, short acting, (LOPRESSOR) 50 mg tablet Indications: Essential hypertension Take 0.5 tablets by mouth twice daily. 180 tablet 1 05/27/2021 11/14/2021 Discontinued Start: 10-07-2020 End: 03-06-2022 take 1 tablet by mouth twice daily Metoprolol Tartrate 50 mg tablet Discontinued 50 mg PO TWICE A DAY December 25, 2020 1:00am March 06, 2022 10:21am Comment on above: Take 0.5 tablets by mouth twice daily. nitroglycerin 0.4 mg sublingual tablet (20 sources) Nitrate Vasodilator Start: 07-15-20 End: 12-14-19 Nitroglycerin 0.4 mg tablet, sublingual Discontinued 0.4 mg SL Q5M as needed for Cardiac/Chest Pain September 04, 2024 11:55am December 14, 2024 11:01am Comment on above: Dissolve 0.4 mg unde r the tongue every 5 minutes as needed for chest pain. Pupac-5-JGX-EPA-Fish Oil (FISH OIL) 1,000 mg (120 mg-180 mg) cap (20 sources) take 1 capsule by mouth once daily Qwzeb-4-MNN-EPA-Fish Oil (FISH OIL) 1,000 mg (120 mg-180 mg) cap Take 2 g by mouth once daily. 0 Active Comment on above: Take 2 g by mouth on ce daily. omeprazole 20 mg delayed release oral capsule (18 sources) Proton Pump Inhibitor Start: 12-27-19 End: 05-26-20 take 1 capsule by mouth once daily before breakfast omeprazole (PRILOSEC) 20 mg capsule Take 1 capsule by mouth daily before breakfast. 1/2 hr before meal. 30 capsule 12/26/2020 05/26/2022 Discontinued Comment on above: Take 1 capsule by [facility] daily before breakfast. 1/2 hr before meal. OTC NUTRITIONAL SUPPLEMENT (18 sources) End: 05-26-20 OTC NUTRITIONAL SUPPLEMENT Vitamin B3 05/26/2022 Discontinued End: 05-26-2022 OTC NUTRITIONAL SUPPLEMENT V itamin B3 0 05/26/2022 Discontinued OTC NUTRITIONAL SUPPLEMENT Vitamin B3 0 Active Comment on above: Vitamin B3 perflutren lipid microspheres 1.3 mL in NaCl (PF) 0.9% 10 mL injection (DEFINITY) (20 sources) Start: 08-19-20 End: 11-18-19 perflutren lipid microspheres 1.3 mL in NaCl (PF) 0.9% 10 mL injection (DEFINITY) rifAXIMin 550 mg oral tablet (10 sources) Rifamycin Antibacterial Start: 05-17-20 End: 05-31-20 take 1 tablet by mouth twice daily Rifaximin 550 mg tablet Discontinued 550 mg PO TWICE A DAY May 17, 2024 12:00am May 31, 2024 4:04pm sodium bicarbonate 650 mg oral tablet (20 sources) Start: 05-17-20 End: 05-31-20 take 1 tablet by mouth once daily as needed Sodium Bicarbonate 650 mg tablet Discontinued 650 mg PO DAILY as needed May 17, 2024 12:00am May 31, 2024 4:04pm Start: 11-17-2023 End: 02-22-2024 take 1 tablet by mouth once daily Sodium Bicarbonate 650 mg tablet Discontinued 650 mg PO DAILY November 17, 2023 1:00am February 22, 2024 3:03pm SUPPLEMENT Start: 06-30-2023 End: 11-17-2023 take 2 tablets by mouth once daily Sodium Bicarbonate 325 mg tablet Discontinued 650 mg PO DAILY June 30, 2023 4:03pm November 17, 2023 2:12pm Start: 06-30-2023 End: 06-30-2023 take 1 tablet by mouth twice daily as needed Sodium Bicarbonate 325 mg tablet Discontinued 325 mg PO TWICE A DAY as needed June 30, 2023 12:00am June 30, 2023 4:04pm Start: 06-30-2023 End: 11-17-2023 take 650 mg by mouth once daily Sodium Bicarbonate Dis continued 650 MG PO DAILY June 30, 2023 4:03pm November 17, 2023 2:12pm Start: 06-30-2023 End: 11-17-2023 Start: 06-04-2023 take 1 tablet by terence twice daily sodium bicarbonate 650 mg tablet Indications: Acidosis Take 1 tablet by mouth twice daily. 180 tablet 3 06/04/2023 Active Start: 05-13-2022 End: 07-15-2022 take 1 tablet by mouth three times daily Sodium Bicarbonate 650 mg Tablet Discontinued 650 mg PO THREE TIMES A DAY May 13, 2022 12:00am July 15, 2022 11:27am Start: 05-13-2022 End: 07-15-2022 Comment on above: Take 1 tablet by terence twice daily. 125 ml sodium chloride 9 mg/ml prefilled syringe (20 sources) Start: 08-19-2021 End: 11-18-2022 sodium chloride 0.9 % (flush) 10 mL (BD POSIFLUSH) spironolactone 25 mg oral tablet (20 sources) Aldosterone Antagonist Start: 11-30-2023 End: 02-22-2024 Spironolactone 25 mg Tablet Discontinued 12.5 mg PO DAILY November 30, 2023 1:00am February 22, 2024 3:02pm Start: 11-30-2023 take 12.5 mg by mout h once daily Spironolactone Active 12.5 MG PO DAILY November 30, 2023 1:00am Start: 11-20-2022 End: 01-26-2023 take 1 tablet by mouth once daily Spironolactone 50 mg tablet Discontinued 50 mg PO DAILY 21 02November 20, 2022 1:00am January 26, 2023 3:17pm Start: 01-13-2022 End: 07-21-2022 take 1 tablet by mouth once daily spironolactone (ALDACTONE) 25 mg tablet Indications: Congestive heart failure, unspecified HF chronicity, unspecified heart failure type (HCC) Take 1 tablet by mouth once daily. 90 tablet 1 07/14/2022 07/21/2022 Discontinued Start: 07-28-2021 End: 11-18-2021 take 1 tablet by mouth every other day spironolactone (ALDACTONE) 25 mg tablet Indications: Congestive heart failure, unspecified HF chronicity, unspecified heart failure type (HCC) Take 1 tablet by mouth every other day. 07/28/2021 11/18/2021 Discontinued (Adjust Sig - Block E-Cancel) Start: 12-25-2020 End: 03-06-2022 Start: 12-11-2020 End: 03-06-2022 take 1 tablet by mouth once daily Spironolactone 100 mg tablet Discontinued 100 mg PO DAILY December 25, 2020 1:00am March 06, 2022 9:45am Start: 07-25-2020 End: 08-20-2020 take 1 tablet by mouth once daily spironolactone (ALDACTONE) 50 mg tablet Take 1 tablet by mouth once daily. 30 tablet 2 07/25/2020 08/20/2020 Discontinued Comment on above: Take 1 tablet by terence once daily. tamsulosin hydrochloride 0.4 mg oral capsule (20 sources) alpha-Adrenergic Sury Start: 2 End: 3 take 1 capsule by mouth once daily Tamsulosin 0.4 mg Capsule Discontinued 0.4 mg PO DAILY@1730 30 1 July 15, 2022 12:00am August 04, 2022 10:39am Comment on above: Take 0.4 mg by mouth once daily. torsemide 10 mg oral tablet (20 sources) Loop Diuretic Start: 3 take 2 tablets by mouth once torsemide (DEMADEX) 10 mg tablet Indications: Chronic 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) , MARCOS (acute kidney injury) (HCC) Take 2 tablets by mouth every Wednesday,Wednesday, ay. 80 tablet 3 11/20/2022 Active Start: 09-24-2022 End: 11-30-2023 Torsemide 20 mg tablet Disco ntinued 20 mg PO MOWEFR November 19, 2022 5:07pm November 30, 2023 7:00pm edema Start: 07-27-2022 End: 11-20-2022 torsemide (DEMADEX) 10 mg ta blet Indications: Chronic 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) , MARCOS (acute kidney injury) (HCC) Take 1 tablet by mouth once daily. Take 10 mg daily, take one additional 10 mg daily as needed for leg swelling, shortness of breath or weight gain of 5 pounds or more/1week 30 tablet 1 07/27/2022 11/20/2022 Discontinued Start: 07-15-2022 Torsemide Acti ve 20 MG PO DAILY 60 July 15, 2022 11:36am Take an additional 10 mg dose at 5 PM for increased leg swelling or weight gain 5 pounds in 1 week. Start: 07-10-2022 End: 07-21-2022 take 1 tablet by mouth once daily Torsemide 10 mg Tablet Discontinued 10 mg PO DAILY July 13, 2022 12:00am July 15, 2022 11:36am diuretic Comment on above: Take 1 tablet by terence th once daily. Take 1 tablet by terence th once daily. Take 10 mg daily, take one additional 10 mg daily Take 1 tablet by terence th once daily. Take 10 mg daily, take one additional 10 mg daily as needed for leg swelling, shortness of breath or weight gain of 5 pounds or more/1week Take 2 tablets by mo [facility] every Wednesday,Wednesday,Wednesday. triamcinolone acetonide 0.055 mg/actuat metered dose nasal spray (20 sources) Corticosteroid End: 022 take 2 spray(s) by inhalation once daily triamcinolone acetonide (NASACORT AQ) 55 mcg nasal inhaler Use 2 Sprays in the nose once daily. [facility] 07/21/2022 Discontinued Comment on above: Use 2 Sprays in the nose once daily. 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] Onset: 9 11-30-2018 Chronic Comment on above: S/P craniotomy and e vacuation on 11/29/2018, Biliary tract disease (18 sources) Chronic cholecystitis; Translations: [Chronic cholecystitis] 11-17-2023 Episodic Cardiac dysrhythmias (20 sources) Ventricular premature beats; Translations: [Ventricular premature depolarization] Onset: 2 Resolved: 8 04-20-2013 Chronic Comment on above: PPM placement 015; Chronic kidney disease (20 sources) Chronic kidney disease stage 3; Translations: [CKD (chronic kidney disease), stage III] Onset: 3 09-06-2018 Chronic Comment on above: Anemia with CKD stag e Began treatment with erythropoietin analogue to keep HGB above 10.Was held on 07/20/2024-10/31/24 for Hgb > 10. Anemia with CKD stag e 4HGB is greater than 10. Chronic kidney disease (2 sources) Chronic kidney disease; Translations: [Stage 3b chronic kidney disease (HCC)] Onset: 3 Conduction disorders (20 sources) H/O: cardiac pacemaker in situ; Translations: [Presence of cardiac pacemaker] Onset: 6 12-12-2020 Chronic Comment on above: 06/20/2015 Congestive heart failure; nonhypertensive (20 sources) Heart failure; Translations: [Heart failure, unspecified] Onset: 1 Resolved: 3 03-26-2021 Chronic Coronary atherosclerosis and other heart disease (20 sources) Coronary atherosclerosis; Translations: [Atherosclerotic heart disease of [place] coronary artery without angina pectoris] Onset: 5 08-19-2021 Chronic Comment on above: 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 Alberto; Deficiency and other anemia (20 sources) Anemia of chronic disease; Translations: [Anemia in other chronic diseases classified elsewhere] Onset: 7 07-28-2021 Chronic Deficiency and other anemia (2 sources) Anemia in chronic kidney disease; Translations: [Anemia in chronic kidney disease] Onset: 4 Chronic Deficiency and other anemia (20 sources) Anemia; Translations: [Anemia, unspecified] 10-06-2022 Episodic Comment on above: Discussed causes of anemia, evaluation and management, patient agreed to proceed with work up. Deficiency and other anemia (4 sources) Anemia, unspecified; Translations: [Anemia, unspecified] Onset: 5 10-06-2022 Episodic Deficiency and other anemia (18 sources) Iron deficiency anemia; Translations: [Iron deficiency anemia, unspecified] 11-29-2024 Episodic Deficiency and other anemia (2 sources) Iron deficiency anemia, unspecified; Translations: [Iron deficiency anemia, unspecified] Onset: 5 Episodic Deficiency and other anemia (5 sources) Deficiency and other anemia Disorders of lipid metabolism (20 sources) Mixed hyperlipidemia; Translations: [Mixed hyperlipidemia] Onset: 2 09-03-2019 Chronic E Codes: Fall (1 source) Fall in home; Translations: [Unspecified fall, initial encounter] 08-06-2020 Episodic Esophageal disorders (20 sources) Laryngopharyngeal reflux; Translations: [Gastro-esophageal reflux disease without esophagitis] Chronic Essential hypertension (20 sources) Essential hypertension; Translations: [Essential (primary) hypertension] Onset: 2 09-03-2019 Chronic Fluid and electrolyte disorders (20 sources) Hypokalemia; Translations: [Hypokalemia] Onset: 6 Resolved: 3 02-05-2016 Episodic Gout and other crystal arthropathies [...] Chronic Hypertension with complications and secondary hypertension (12 sources) Hypertensive heart AND chronic kidney disease stage 3; Translations: [Hypertensive heart and chronic kidney disease with heart failure and stage 1 through stage 4 chronic kidney disease, or unspecified chronic kidney disease] Onset: 3 01-29-2023 Chronic Immunizations and screening for infectious disease (1 source) Patient encounter status; Translations: [Encounter for immunization] Episodic Malaise and fatigue (20 sources) Asthenia; Translations: [Weakness] 12-25-2020 Episodic Noninfectious gastroenteritis (20 sources) Collagenous colitis; Translations: [Collagenous colitis] 02-11-2017 Chronic Nonspecific chest pain (20 sources) Chest pain; Translations: [Chest pain, unspecified] Onset: 5 09-13-2022 Episodic Occlusion or stenosis of precerebral arteries (20 sources) Asymptomatic carotid artery stenosis; Translations: [Occlusion and stenosis of unspecified carotid artery] Onset: 7 05-20-2018 Chronic Other aftercare (20 sources) Long-term current use of anticoagulant; 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] Onset: 6 Resolved: 9 09-13-2022 Episodic Other and ill-defined heart disease (20 sources) Diastolic dysfunction; Translations: [Other ill-defined heart diseases] 03-27-2022 Chronic Other circulatory disease (10 sources) History of cardiomyopathy; Translations: [Personal history of other diseases of the circulatory system] 06-16-2024 Episodic Other connective tissue disease (2 sources) Swelling of lower limb; Translations: [Other specified soft tissue disorders] Episodic Other diseases of kidney and ureters (3 sources) Hydronephrosis; Translations: [Unspecified hydronephrosis] Episodic Other diseases of kidney and ureters (20 sources) Renal impairment; Translations: [Disorder of kidney and ureter, unspecified] 09-13-2022 Episodic Other gastrointestinal disorders (20 sources) Diarrhea; Translations: [Diarrhea, unspecified] Episodic Other gastrointestinal disorders (9 sources) Diarrhea, unspecified; Translations: [Diarrhea] Episodic Other gastrointestinal disorders (18 sources) Ascites; Translations: [Other ascites] 11-17-2023 Episodic Other hematologic conditions (20 sources) Raised cardiac enzyme or marker; Translations: [Other specified abnormalities of plasma proteins] 12-25-2020 Episodic Other infections; including parasitic (20 sources) Personal history of other infectious and parasitic diseases; Translations: [Personal history of COVID-19] Episodic Other lower respiratory disease (3 sources) Cough; Translations: [Cough, unspecified type] Episodic Other lower respiratory disease (1 source) Chronic cough; Translations: [Chronic cough] Episodic Other lower respiratory disease (20 sources) Hypoxemia; Translations: [Hypoxemia] 09-19-2023 Episodic Other lower respiratory disease (1 source) Hypoxemia; Translations: [Hypoxemia] 09-22-2023 Episodic Other non-traumatic joint disorders (1 source) Acute ankle pain; Translations: [Pain in right ankle and joints of right foot] 11-08-2021 Episodic Other non-traumatic joint disorders (1 source) Pain in right knee; Translations: [Pain in joint, lower leg] 08-06-2020 Episodic Other nutritional; endocrine; and metabolic disorders (20 sources) Hypomagnesemia; Translations: [Hypomagnesemia] Chronic Pleurisy; pneumothorax; pulmonary collapse (20 sources) Pleural effusion; Translations: [Pleural effusion, not elsewhere classified] 11-29-2023 Episodic Pneumonia (except that caused by tuberculosis or sexually transmitted disease) (20 sources) Basal pneumonia; Translations: [Pneumonia, unspecified organism] 09-19-2023 Episodic Residual codes; unclassified (1 source) Peripheral edema; Translations: [Edema, unspecified] Episodic Residual codes; unclassified (4 sources) Edema; Translations: [Edema, unspecified] Episodic Spondylosis; intervertebral disc disorders; other back problems (20 sources) Disorder of joint of spine; 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, lumbar region] Onset: 6 02-21-2016 Chronic Superficial injury; contusion (1 source) Hematoma of right knee region; Translations: [Contusion of right knee, initial encounter] 08-06-2020 Episodic Unclassified (1 source) Subacute cough; Translations: [Subacute cough] Onset: 3 Viral infection (20 sources) Disease caused by 2019-nCoV; Translations: [COVID-19] Episodic Past or Other Problems Problem Classification Problem Date Documented Date Episodic/Chronic Allergic reactions (4 sources) Solar degeneration; Translations: [Other skin changes due to chronic exposure to nonionizing radiation] Onset: 05-08-2011 Resolved: 08-11-2016 08-11-2016 Episodic Cardiac dysrhythmias (2 sources) Bradycardia; Translations: [Bradycardia, unspecified] Onset: 03-13-2022 Episodic Diabetes mellitus without complication (20 sources) Hyperglycemia; Translations: [Hyperglycemia, unspecified] Onset: 02-11-2017 02-11-2017 Episodic Neoplasms of unspecified nature or uncertain behavior (4 sources) Neoplasm of uncertain behavior of skin; Translations: [Neoplasm of uncertain behavior of skin] Onset: 03-19-2012 Resolved: 08-11-2016 08-11-2016 Episodic Other circulatory disease (15 sources) History of subdural hematoma; Translations: [Personal [...] tophaceous disease; Translations: [Hyperuricemia] Onset: 01-09-2014 Episodic Other skin disorders (4 sources) Actinic keratosis; Translations: [Actinic keratosis] Onset: 05-08-2011 Resolved: 08-11-2016 08-11-2016 Episodic Other skin disorders (4 sources) Solar lentigo; Translations: [Other melanin hyperpigmentation] Onset: 05-08-2011 Resolved: 08-11-2016 08-11-2016 Episodic Other skin disorders (4 sources) Seborrheic keratosis; Translations: [Other seborrheic keratosis] Onset: 05-08-2011 Resolved: 08-11-2016 08-11-2016 Episodic Other skin disorders (4 sources) Asteatosis cutis; Translations: [Xerosis cutis] Onset: 05-08-2011 Resolved: 08-11-2016 08-11-2016 Episodic Other skin disorders (4 sources) Changes in skin texture; Translations: [Other skin changes] Onset: 09-20-2012 Resolved: 08-11-2016 08-11-2016 Episodic Spondylosis; intervertebral disc disorders; other back problems (20 sources) Spinal stenosis of lumbar region; Translations: [Spinal stenosis, lumbar region without neurogenic claudication] Onset: 11-24-2018 11-24-2018 Episodic Results Test Name Value Interpretation Reference Range Facility Basic Metabolic Profile (BMP )on 07-02-2025 BUN/CRE 22.2 RATIO High 10-20 [facility] Comment on above: Order Comment: For P PM generator change Performed By: #### L 500.2500, L300.3900, L400.0001, L100.0500 ####[facility] [address] [place], [address] Calcium [Mass/Vol] 9.7 mg/dL Normal 7.6-11.0 [facility] Comment on above: Order Comment: For P PM generator change Performed By: #### L 500.2500, L300.3900, L400.0001, L100.0500 ####[facility] [address] [place], [address] Chloride [Moles/Vol] 112 mmol/L High 98-108 [facility] Comment on above: Order Comment: For P PM generator change Performed By: #### L 500.2500, L300.3900, L400.0001, L100.0500 ####[facility] [address] [place], [address] CO2 [Moles/Vol] 16.8 mmol/L Low 21.0-32.0 [facility] Comment on above: Order Comment: For P PM generator change Performed By: #### L 500.2500, L300.3900, L400.0001, L100.0500 ####[facility] [address] [place], [address] Creatinine [Mass/Vol] 2.21 mg/dL High 0.70-1.20 [facility] Comment on above: Order Comment: For P PM generator change Performed By: #### L 500.2500, L300.3900, L400.0001, L100.0500 ####[facility] [address] [place], [address] GAP 14 Normal 5-15 [facility] Comment on above: Order Comment: For P PM generator change Performed By: #### L 500.2500, L300.3900, L400.0001, L100.0500 ####[facility] [address] [place], [address] GFR/1.73 sq M.predicted among non-blacks MDRD (S/P/Bld) [Vol rate/Area] 28 mL/min/{1.73_m2} Low >60 [facility] Comment on above: Order Comment: For P PM generator change Result Comment: mL/m in/1.73m2 CKD-EPI Creatinine Equation (2020) Performed By: #### L 500.2500, L300.3900, L400.0001, L100.0500 ####[facility] [address] [place], [address] Glucose [Mass/Vol] 120 mg/dL High 70-99 [facility] Comment on above: Order Comment: For P PM generator change Performed By: #### L 500.2500, L300.3900, L400.0001, L100.0500 ####[facility] [address] [place], [address] Potassium [Moles/Vol] 3.5 mmol/L Normal 3.3-5.1 [facility] Comment on above: Order Comment: For P PM generator change Performed By: #### L 500.2500, L300.3900, L400.0001, L100.0500 ####[facility] [address] [place], [address] Sodium [Moles/Vol] 143 mmol/L Normal 133-145 [facility] Comment on above: Order Comment: For P PM generator change Performed By: #### L 500.2500, L300.3900, L400.0001, L100.0500 ####[facility] [address] [place], [address] Urea nitrogen [Mass/Vol] 49 mg/dL High 4-19 [facility] Comment on above: Order Comment: For P PM generator change Performed By: #### L 500.2500, L300.3900, L400.0001, L100.0500 ####[facility] [address] [place], [address] CBC-Complete Blood Cnt No Di ffon 07-02-2025 Erythrocyte distribution width (RBC) [Ratio] 16.4 % High 11.6-14.6 [facility] Comment on above: Order Comment: Comme nts: For PPM generator change Performed By: #### L 500.2500, L300.3900, L400.0001, L100.0500 ####[facility] [address] [place], [address] Hematocrit (Bld) [Volume fraction] 33.2 % Low 40-54 [facility] Comment on above: Order Comment: Comme nts: For PPM generator change Performed By: #### L 500.2500, L300.3900, L400.0001, L100.0500 ####[facility] [address] [place], [address] Hemoglobin (Bld) [Mass/Vol] 10.8 g/dL Low 13.0-16.5 [facility] Comment on above: Order Comment: Comme nts: For PPM generator change Performed By: #### L 500.2500, L300.3900, L400.0001, L100.0500 ####[facility] [address] [place], [address] MCH (RBC) [Entitic mass] 34.0 pg High 27.0-32.0 [facility] Comment on above: Order Comment: Comme nts: For PPM generator change Performed By: #### L 500.2500, L300.3900, L400.0001, L100.0500 ####[facility] [address] [place], [address] MCHC (RBC) [Mass/Vol] 32.5 g/dL Normal 32-36 [facility] Comment on above: Order Comment: Comme nts: For PPM generator change Performed By: #### L 500.2500, L300.3900, L400.0001, L100.0500 ####[facility] [address] [place], [address] MCV (RBC) [Entitic vol] 104.4 fL High 80-94 [facility] Comment on above: Order Comment: Comme nts: For PPM generator change Performed By: #### L 500.2500, L300.3900, L400.0001, L100.0500 ####[facility] [address] [place], [address] Platelet mean volume (Bld) [Entitic vol] 11.0 fL Normal 6.2-12.0 [facility] Comment on above: Order Comment: Comme nts: For PPM generator change Performed By: #### L 500.2500, L300.3900, L400.0001, L100.0500 ####[facility] [address] [place], [address] Platelets (Bld) [#/Vol] 130 10*3/uL Low 150-450 [facility] Comment on above: Order Comment: Comme nts: For PPM generator change Performed By: #### L 500.2500, L300.3900, L400.0001, L100.0500 ####[facility] [address] [place], [address] RBC (Bld) [#/Vol] 3.18 10*6/uL Low 4.6-6.2 [facility] Comment on above: Order Comment: Comme nts: For PPM generator change Performed By: #### L 500.2500, L300.3900, L400.0001, L100.0500 ####[facility] [address] [place], [address] RDW SD 61.2 fl High 35.1-43.9 [facility] Comment on above: Order Comment: Comme nts: For PPM generator change Performed By: #### L 500.2500, L300.3900, L400.0001, L100.0500 ####[facility] [address] [place], [address] WBC (Bld) [#/Vol] 5.4 10*3/uL Normal 4.4-11.0 [facility] Comment on above: Order Comment: Comme nts: For PPM generator change Performed By: #### L 500.2500, L300.3900, L400.0001, L100.0500 ####[facility] [address] [place], [place], [address] Cardiology Visit Reporton Cardiology Visit Report Normal [facility] Chest PA and Lateralon 07-02 Chest PA and Lateral Normal [facility] Pacemaker Checkon 07-02-2025 Pacemaker Check Normal [facility] Prothrombin Time w/INRon INR Coag (PPP) [Relative time] 1.7 {INR} Normal [facility] Comment on above: Order Comment: Comme nts: for PPM generator change Performed By: #### L 500.2500, L300.3900, L400.0001, L100.0500 ####[facility] [address] [place], [address] PT Coag (PPP) [Time] 20.0 s High 11.7-14.9 [facility] Comment on above: Order Comment: Comme nts: for PPM generator change Performed By: #### L 500.2500, L300.3900, L400.0001, L100.0500 ####[facility] [address] [place], [address] Urinalysis, Completeon 07-02 EPI,SQUAMOUS 0-5 SEEN Normal 0-5 [facility] Comment on above: Order Comment: For P PM generator changeCOLLECTOR TO SPECIFY Performed By: #### L 500.2500, L300.3900, L400.0001, L100.0500 ####[facility] [address] [place], [address] RBC 0-5 SEEN Normal 0-5 [facility] Comment on above: Order Comment: For P PM generator changeCOLLECTOR TO SPECIFY Performed By: #### L 500.2500, L300.3900, L400.0001, L100.0500 ####[facility] [address] [place], [address] WBC 0-5 SEEN Normal 0-5 [facility] Comment on above: Order Comment: For P PM generator changeCOLLECTOR TO SPECIFY Performed By: #### L 500.2500, L300.3900, L400.0001, L100.0500 ####[facility] [address] [place], [address] BACTERIA 0 SEEN Normal None Seen [facility] Comment on above: Order Comment: For P PM generator changeCOLLECTOR TO SPECIFY Performed By: #### L 500.2500, L300.3900, L400.0001, L100.0500 ####[facility] [address] [place], [address] Mucus Ql (Urine sed) 0 SEEN Normal [facility] Comment on above: Order Comment: For P PM generator changeCOLLECTOR TO SPECIFY Performed By: #### L 500.2500, L300.3900, L400.0001, L100.0500 ####[facility] [address] [place], [address] Erythropoietinon 06-15-2025 ERYTHROPOIETIN 19.4 mIU/mL High 2.6-18.5 [facility] Comment on above: Result Comment: [employer] DxI 800 Immunoassay SystemValues obtained with different assay methods or kits cannotbe used interchangeably. Results cannot be interpreted asabsolute evidence of the presence or absence of malignantdisease.Performed at: [address] [id number] Director: Andres Abel PhD, Phone: [phone] Performed By: #### L 3100.1350 ####[facility] [address] [place], [address] Absolute lymphocyte countOrd ered By: Felipe Trivedi on 06-13-2025 Lymphocytes Auto (Unsp spec) [#/Vol] 0.82 10*3/uL Low 0.83-4.51 [facility] Absolute neutrophil countOrd ered By: Felipe [facility] on 06-13-2025 Neutrophils (Bld) [#/Vol] 3.0 10*3/uL 2.0-7.7 [facility] Anion gap in Serum or Plasma Ordered By: Felipe Vazquez on 06-13-2025 Anion gap [Moles/Vol] 14 mmol/L 5-15 [facility] Automated lymphocyte count a s percentage of total leukocytesOrdered By: Felipe Vazquez on 06-13-2025 Lymphocytes/100 WBC Auto (Unsp spec) 18.6 % Low 19-41 [facility] BUN/creatinine ratioOrdered By: [facility] on 06-13-2025 Urea nitrogen/Creatinine [Mass ratio] 24.9 mg/mg High 10- [facility] Basophil percentageOrdered B y: Felipe Trivedi on 06-13-2025 Basophils/100 WBC (Bld) 0.7 % 0-1 [facility] Bilirubin, totalOrdered By: Felipe Vazquez on 06-13-2025 Bilirubin [Mass/Vol] 0.62 mg/dL 0.00-1.30 [facility] CBC W/Diff, Automatedon 05-26 Absolute Lymph 0.82 X10 3/uL Low 0.83-4.51 [facility] Comment on above: Performed By: #### L 503.6030, L503.6550, L500.4050, L504.2610, L100.0100 ####[facility] [address] [place], [address] Absolute Neut 3.0 X10 3/uL Normal 2.0-7.7 [facility] Comment on above: Performed By: #### L 503.6030, L503.6550, L500.4050, L504.2610, L100.0100 ####[facility] [address] [place], [address] Basophils/100 WBC (Bld) 0.7 % Normal 0-1 [facility] Comment on above: Performed By: #### L 503.6030, L503.6550, L500.4050, L504.2610, L100.0100 ####[facility] [address] [place], [address] Eosinophils/100 WBC (Bld) 3.2 % Normal 0-5 [facility] Comment on above: Performed By: #### L 503.6030, L503.6550, L500.4050, L504.2610, L100.0100 ####[facility] [address] [place], [address] Erythrocyte distribution width (RBC) [Ratio] 14.8 % High 11.6-14.6 [facility] Comment on above: Performed By: #### L 503.6030, L503.6550, L500.4050, L504.2610, L100.0100 ####[facility] [address] [place], [address] Hematocrit (Bld) [Volume fraction] 31.5 % Low 40-54 [facility] Comment on above: Performed By: #### L 503.6030, L503.6550, L500.4050, L504.2610, L100.0100 ####[facility] [address] [place], [address] Hemoglobin (Bld) [Mass/Vol] 10.3 g/dL Low 13.0-16.5 [facility] Comment on above: Performed By: #### L 503.6030, L503.6550, L500.4050, L504.2610, L100.0100 ####[facility] [address] [place], [address] IG% 0.200 Normal 0.0-0.9 [facility] Comment on above: Result Comment: IG% - Immature Granulocytes (promyelocytes, myelocytes andmetamyelocytes) > 1% indicates that a LEFT SHIFT is Present. Performed By: #### L 503.6030, L503.6550, L500.4050, L504.2610, L100.0100 ####[facility] [address] [place], [address] Lymphocytes/100 WBC (Bld) 18.6 % Low 19-41 [facility] Comment on above: Performed By: #### L 503.6030, L503.6550, L500.4050, L504.2610, L100.0100 ####[facility] [address] [place], [address] MCH (RBC) [Entitic mass] 33.8 pg High 27.0-32.0 [facility] Comment on above: Performed By: #### L 503.6030, L503.6550, L500.4050, L504.2610, L100.0100 ####[facility] [address] [place], [address] MCHC (RBC) [Mass/Vol] 32.7 g/dL Normal 32-36 [facility] Comment on above: Performed By: #### L 503.6030, L503.6550, L500.4050, L504.2610, L100.0100 ####[facility] [address] [place], [address] MCV (RBC) [Entitic vol] 103.3 fL High 80-94 [facility] Comment on above: Performed By: #### L 503.6030, L503.6550, L500.4050, L504.2610, L100.0100 ####[facility] [address] [place], [address] Monocytes/100 WBC (Bld) 8.8 % Normal 0-10 [facility] Comment on above: Performed By: #### L 503.6030, L503.6550, L500.4050, L504.2610, L100.0100 ####[facility] [address] [place], [address] Neutrophils/100 WBC (Bld) 68.5 % Normal 47-70 [facility] Comment on above: Performed By: #### L 503.6030, L503.6550, L500.4050, L504.2610, L100.0100 ####[facility] [address] [place], [address] Nucleated RBC (Bld) [#/Vol] 0 10*3/uL Normal 0-5 [facility] Comment on above: Performed By: #### L 503.6030, L503.6550, L500.4050, L504.2610, L100.0100 ####[facility] [address] [place], [address] Platelet mean volume (Bld) [Entitic vol] 10.3 fL Normal 6.2-12.0 [facility] Comment on above: Performed By: #### L 503.6030, L503.6550, L500.4050, L504.2610, L100.0100 ####[facility] [address] [place], [address] Platelets (Bld) [#/Vol] 109 10*3/uL Low 150-450 [facility] Comment on above: Performed By: #### L 503.6030, L503.6550, L500.4050, L504.2610, L100.0100 ####[facility] [address] [place], [address] RBC (Bld) [#/Vol] 3.05 10*6/uL Low 4.6-6.2 [facility] Comment on above: Performed By: #### L 503.6030, L503.6550, L500.4050, L504.2610, L100.0100 ####[facility] [address] [place], [address] RDW SD 56.0 fl High 35.1-43.9 [facility] Comment on above: Performed By: #### L 503.6030, L503.6550, L500.4050, L504.2610, L100.0100 ####[facility] [address] [place], [address] WBC (Bld) [#/Vol] 4.4 10*3/uL Normal 4.4-11.0 [facility] Comment on above: Performed By: #### L 503.6030, L503.6550, L500.4050, L504.2610, L100.0100 ####[facility] [address] [place], [address] Carbon dioxide, total [Moles /volume] in Central venous bloodOrdered By: Felipe Trivedi on 06-13-2025 CO2 [Moles/Vol] 20.0 mmol/L Low 21.0-32.0 [facility] Chloride assayOrdered By: Jayla Trivedi on 06-13-2025 Chloride [Moles/Vol] 109 mmol/L High 98-108 [facility] Comprehensive Metabolic Prof ilon 06-13-2025 Albumin [Mass/Vol] 4.3 g/dL Normal 3.4-4.8 [facility] Comment on above: Performed By: #### L 503.6030, L503.6550, L500.4050, L504.2610, L100.0100 ####[facility] [address] [place], [address] Albumin/Globulin [Mass ratio] 1.7 {ratio} Normal 0.9-2.4 [facility] Comment on above: Performed By: #### L 503.6030, L503.6550, L500.4050, L504.2610, L100.0100 ####[facility] [address] [place], [address] ALK PHOS 88 U/L Normal 40-129 [facility] Comment on above: Performed By: #### L 503.6030, L503.6550, L500.4050, L504.2610, L100.0100 ####[facility] [address] [place], [address] ALT [Catalytic activity/Vol] 19 U/L Normal <=46 [facility] Comment on above: Performed By: #### L 503.6030, L503.6550, L500.4050, L504.2610, L100.0100 ####[facility] [address] [place], [address] AST [Catalytic activity/Vol] 16 U/L Normal <=37 [facility] Comment on above: Performed By: #### L 503.6030, L503.6550, L500.4050, L504.2610, L100.0100 ####[facility] [address] [place], [address] Bilirubin [Mass/Vol] 0.62 mg/dL Normal 0.00-1.30 [facility] Comment on above: Performed By: #### L 503.6030, L503.6550, L500.4050, L504.2610, L100.0100 ####[facility] [address] [place], [address] BUN/CRE 24.9 RATIO High 10-20 [facility] Comment on above: Performed By: #### L 503.6030, L503.6550, L500.4050, L504.2610, L100.0100 ####[facility] [address] [place], [address] Calcium [Mass/Vol] 9.6 mg/dL Normal 7.6-11.0 [facility] Comment on above: Performed By: #### L 503.6030, L503.6550, L500.4050, L504.2610, L100.0100 ####[facility] [address] [place], [address] Chloride [Moles/Vol] 109 mmol/L High 98-108 [facility] Comment on above: Performed By: #### L 503.6030, L503.6550, L500.4050, L504.2610, L100.0100 ####[facility] [address] [place], [address] CO2 [Moles/Vol] 20.0 mmol/L Low 21.0-32.0 [facility] Comment on above: Performed By: #### L 503.6030, L503.6550, L500.4050, L504.2610, L100.0100 ####[facility] [address] [place], [address] Creatinine [Mass/Vol] 2.11 mg/dL High 0.70-1.20 [facility] Comment on above: Performed By: #### L 503.6030, L503.6550, L500.4050, L504.2610, L100.0100 ####[facility] [address] [place], [address] ECRCL 21.82 ml/min Low 50-250 [facility] Comment on above: Performed By: #### L 503.6030, L503.6550, L500.4050, L504.2610, L100.0100 ####[facility] [address] [place], [address] GAP 14 Normal 5-15 [facility] Comment on above: Performed By: #### L 503.6030, L503.6550, L500.4050, L504.2610, L100.0100 ####[facility] [address] [place], [address] GFR/1.73 sq M.predicted among non-blacks MDRD (S/P/Bld) [Vol rate/Area] 30 mL/min/{1.73_m2} Low >60 [facility] Comment on above: Result Comment: mL/m in/1.73m2 CKD-EPI Creatinine Equation (2020) Performed By: #### L 503.6030, L503.6550, L500.4050, L504.2610, L100.0100 ####[facility] [address] [place], [address] Globulin (S) [Mass/Vol] 2.5 g/dL Normal 2.2-4.2 [facility] Comment on above: Performed By: #### L 503.6030, L503.6550, L500.4050, L504.2610, L100.0100 ####[facility] [address] [place], [address] Glucose [Mass/Vol] 128 mg/dL High 70-99 [facility] Comment on above: Performed By: #### L 503.6030, L503.6550, L500.4050, L504.2610, L100.0100 ####[facility] [address] [place], [address] Potassium [Moles/Vol] 3.9 mmol/L Normal 3.3-5.1 [facility] Comment on above: Performed By: #### L 503.6030, L503.6550, L500.4050, L504.2610, L100.0100 ####[facility] [address] [place], [address] Sodium [Moles/Vol] 143 mmol/L Normal 133-145 [facility] Comment on above: Performed By: #### L 503.6030, L503.6550, L500.4050, L504.2610, L100.0100 ####[facility] [address] [place], [place], [id number] T PROT 6.9 g/dL Normal 5.9-8.4 [facility] Comment on above: Performed By: #### L 503.6030, L503.6550, L500.4050, L504.2610, L100.0100 ####[facility] [address] [place], [address] Urea nitrogen [Mass/Vol] 53 mg/dL High 4-19 [facility] Comment on above: Performed By: #### L 503.6030, L503.6550, L500.4050, L504.2610, L100.0100 ####[facility] [address] [place], [place], [id number] Eosinophil percentageOrdered By: Felipe Trivedi on 06-13-2025 Eosinophils/100 WBC (Bld) 3.2 % 0-5 [facility] Erythrocyte distribution wid th ratioOrdered By: Felipe Trivedi on 06-13-2025 Erythrocyte distribution width (RBC) [Ratio] 14.8 % High 11.6-14.6 [facility] Erythrocyte distribution wid th standard deviationOrdered By: Felipe Trivedi on 06-13-2025 Erythrocyte distribution width (RBC) [Ratio] 56.0 fl High 35.1-43.9 [facility] Ferritinon 06-13-2025 Ferritin [Mass/Vol] 574 ng/mL High 37-417 [facility] Comment on above: Performed By: #### L 503.6030, L503.6550, L500.4050, L504.2610, L100.0100 ####[facility] [address] [place], [address] Glomerular filtration rate ( GFR) estimation/1.73 sq m using serum, plasma, or whole bOrdered By: Felipe Trivedi on 06-13-2025 GFR/1.73 sq M.predicted among non-blacks MDRD (S/P/Bld) [Vol rate/Area] 30 mL/min/{1.73_m2} Low >60 [facility] Comment on above: mL/min/1.73m2 CKD-EP I Creatinine Equation (2020) Hematocrit Auto (Bld) [Volum e fraction]Ordered By: Felipe Trivedi on 06-13-2025 Hematocrit (Bld) [Volume fraction] 31.5 % Low 40-54 [facility] Hemoglobin measurementOrdere d By: Felipe Trivedi on 06-13-2025 Hemoglobin (Bld) [Mass/Vol] 10.3 g/dL Low 13.0-16.5 [facility] Immature granulocytes/100 WB C Auto (Bld)Ordered By: Felipe Trivedi on 06-13-2025 Immature granulocytes/100 WBC (Bld) 0.200 % 0.0-0.9 [facility] Comment on above: IG% - Immature Granu locytes (promyelocytes, myelocytes and metamyelocytes) > 1% indicates that a LEFT SHIFT is Present. Iron measurement (mass/mass) Ordered By: Felipe Trivedi on 06-13-2025 Iron (Unsp spec) [Mass/Mass] 76 ug/dL 65-175 [facility] Iron+Iron Binding Capacityon 06-13-2025 TIBC 226 ug/dL Low 250-450 [facility] Comment on above: Performed By: #### L 503.6030, L503.6550, L500.4050, L504.2610, L100.0100 ####[facility] [address] [place], [address] LDHon 06-13-2025 LDH 185 U/L Normal 87-241 [facility] Comment on above: Order Comment: 1 Performed By: #### L 503.6030, L503.6550, L500.4050, L504.2610, L100.0100 ####[facility] [address] [place], [address] Laboratory - Chemistry and C hemistry - challengeOrdered By: Felipe Trivedi on 06-13-2025 AST [Catalytic activity/Vol] 16 U/L <38 [facility] Lactate dehydrogenase (LDH) measurementOrdered By: Felipe Trivedi on 06-13-2025 LDH [Catalytic activity/Vol] 185 U/L 87-241 [facility] MCV (mean corpuscular volume ) determinationOrdered By: Felipe Trivedi on 06-13-2025 MCV (RBC) [Entitic vol] 103.3 fL High 80-94 [facility] Mean corpuscular hemoglobin (MCH) determinationOrdered By: Felipe Trivedi on 06-13-2025 MCH (RBC) [Entitic mass] 33.8 pg High 27.0-32.0 [facility] Mean corpuscular hemoglobin concentration (MCHC) determinationOrdered By: Felipe Trivedi on 06-13-2025 MCHC (RBC) [Mass/Vol] 32.7 g/dL 32-36 [facility] Mean platelet volume determi nationOrdered By: Felipe Trivedi on 06-13-2025 Platelet mean volume (Bld) [Entitic vol] 10.3 fL 6.2-12.0 [facility] Monocyte percentageOrdered B y: Felipe Trivedi on 06-13-2025 Monocytes/100 WBC (Bld) 8.8 % 0-10 [facility] Neutrophil percentageOrdered By: Felipe Trivedi on 06-13-2025 Neutrophils/100 WBC (Bld) 68.5 % 47-70 [facility] No Panel InformationOrdered By: Felipe Trivedi on 06-13-2025 Unsaturated Iron Binding Capacity 150 ug/dL Low 228-428 [facility] Nucleated red blood cell per centageOrdered By: Felipe Trivedi on 06-13-2025 Nucleated RBC/100 WBC (Bld) [Ratio] 0 % 0-5 [facility] Oncology Visit Reporton 08-2 0-2024 Oncology Visit Report Normal [facility] Platelet countOrdered By: Jayla Trivedi on 06-13-2025 Platelets (Bld) [#/Vol] 109 10*3/uL Low 150-450 [facility] Potassium measurement (mass/ volume)Ordered By: Felipe Trivedi on 06-13-2025 Potassium (Unsp spec) [Mass/Vol] 3.9 mmol/L 3.3-5.1 [facility] RBC Auto (Bld) [#/Vol]Ordere d By: Felipe Trivedi on 06-13-2025 RBC (Bld) [#/Vol] 3.05 10*6/uL Low 4.6-6.2 [facility] Serum creatinine measurement (mass/volume)Ordered By: Felipe Trivedi on 06-13-2025 Creatinine [Mass/Vol] 2.11 mg/dL High 0.70-1.20 [facility] Serum globulin measurementOr dered By: Felipe Trivedi on 06-13-2025 Globulin (S) [Mass/Vol] 2.5 g/dL 2.2-4.2 [facility] Serum glucose measurement (m ass/volume)Ordered By: Felipe Trivedi on 06-13-2025 Glucose [Mass/Vol] 128 mg/dL High 70-99 [facility] Serum or plasma alanine whitehead otransferase (ALT) measurementOrdered By: Felipe Trivedi on 06-13-2025 ALT [Catalytic activity/Vol] 19 U/L <47 [facility] Serum or plasma albumin viky urement (mass/volume)Ordered By: Felipe Trivedi on 06-13-2025 Albumin [Mass/Vol] 4.3 g/dL 3.4-4.8 [facility] Serum or plasma albumin/glob ulin mass ratioOrdered By: Felipe Trivedi on 06-13-2025 Albumin/Globulin [Mass ratio] 1.7 {ratio} 0.9-2.4 [facility] Serum or plasma alkaline rhona sphatase measurementOrdered By: Felipe Trivedi on 06-13-2025 ALP [Catalytic activity/Vol] 88 U/L 40-129 [facility] Serum or plasma calcium viky urement (mass/volume)Ordered By: Felipe Trivedi on 06-13-2025 Calcium [Mass/Vol] 9.6 mg/dL 7.6-11.0 [facility] Serum or plasma erythropoiet in (EPO) measurement (units/volume)Ordered By: Felipe Trivedi on 06-13-2025 Erythropoietin (EPO) Qn 19.4 mIU/mL High 2.6-18.5 [facility] Comment on above: [employer] DxI 800 Immunoassay SystemValues obtained with different assay methods or kits cannotbe used interchangeably. Results cannot be interpreted asabsolute evidence of the presence or absence of malignantdisease.Performed at: [facility] [id number] Director: Andres Abel PhD, Phone: [phone] Serum or plasma ferritin kate surement (mass/volume)Ordered By: Felipe Trivedi on 06-13-2025 Ferritin [Mass/Vol] 574 ng/mL High 37-417 [facility] Serum or plasma iron saturat ion measurement (mass fraction)Ordered By: Felipe Trivedi on 06-13-2025 Iron saturation [Mass fraction] 33.6 % 9-55 [facility] Comment on above: Previous reported re sult: 34.0 %Edited by: CORINA on 06/13/25:1436 AMENDED REPORT 06/13/25 1436 IRON SATURATION previously reported as: 34.0 % Serum or plasma urea nitroge n measurement (mass/volume)Ordered By: Felipe Trivedi on 06-13-2025 Urea nitrogen [Mass/Vol] 53 mg/dL High 4-19 [facility] Sodium levelOrdered By: Luis Trivedi on 06-13-2025 Sodium [Moles/Vol] 143 mmol/L 133-145 [facility] Total proteinOrdered By: Elvin Trivedi on 06-13-2025 Protein [Mass/Vol] 6.9 g/dL 5.9-8.4 [facility] White blood cell (WBC) count Ordered By: Felipe Trivedi on 06-13-2025 WBC (Bld) [#/Vol] 4.4 10*3/uL 4.4-11.0 [facility] Erythropoietinon 05-18-2025 ERYTHROPOIETIN 13.7 mIU/mL Normal 2.6-18.5 [facility] Comment on above: Result Comment: [employer] DxI 800 Immunoassay SystemValues obtained with different assay methods or kits cannotbe used interchangeably. Results cannot be interpreted asabsolute evidence of the presence or absence of malignantdisease.Performed at: [facility] [id number] Director: Andres Abel PhD, Phone: [phone] Performed By: #### L 100.0100, L503.6550, L504.2610, L503.0106, L503.6030, L500.4050, L3100.1350 ####[facility] [address] [place], [address] Absolute lymphocyte countOrd ered By: Felipe Trivedi on 05-16-2025 Lymphocytes Auto (Unsp spec) [#/Vol] 0.92 10*3/uL 0.83-4.51 [facility] Absolute neutrophil countOrd ered By: Felipe Trivedi on 05-16-2025 Neutrophils (Bld) [#/Vol] 3.6 10*3/uL 2.0-7.7 [facility] Automated lymphocyte count a s percentage of total leukocytesOrdered By: Felipe Trivedi on 05-16-2025 Lymphocytes/100 WBC Auto (Unsp spec) 17.7 % Low 19-41 [facility] Basophil percentageOrdered B y: Felipe Trivedi on 05-16-2025 Basophils/100 WBC (Bld) 0.6 % 0-1 [facility] CBC W/Diff, Automatedon 04-25 Absolute Lymph 0.92 X10 3/uL Normal 0.83-4.51 [facility] Comment on above: Performed By: #### L 100.0100, L503.6550, L504.2610, L503.0106, L503.6030, L500.4050, L3100.1350 ####[facility] [address] [place], [address] Absolute Neut 3.6 X10 3/uL Normal 2.0-7.7 [facility] Comment on above: Performed By: #### L 100.0100, L503.6550, L504.2610, L503.0106, L503.6030, L500.4050, L3100.1350 ####[facility] [address] [place], [address] Basophils/100 WBC (Bld) 0.6 % Normal 0-1 [facility] Comment on above: Performed By: #### L 100.0100, L503.6550, L504.2610, L503.0106, L503.6030, L500.4050, L3100.1350 ####[facility] [address] [place], [address] Eosinophils/100 WBC (Bld) 5.2 % High 0-5 [facility] Comment on above: Performed By: #### L 100.0100, L503.6550, L504.2610, L503.0106, L503.6030, L500.4050, L3100.1350 ####[facility] [address] [place], [address] Erythrocyte distribution width (RBC) [Ratio] 13.8 % Normal 11.6-14.6 [facility] Comment on above: Performed By: #### L 100.0100, L503.6550, L504.2610, L503.0106, L503.6030, L500.4050, L3100.1350 ####[facility] [address] [place], [address] Hematocrit (Bld) [Volume fraction] 30.4 % Low 40-54 [facility] Comment on above: Performed By: #### L 100.0100, L503.6550, L504.2610, L503.0106, L503.6030, L500.4050, L3100.1350 ####[facility] [address] [place], [address] Hemoglobin (Bld) [Mass/Vol] 10.2 g/dL Low 13.0-16.5 [facility] Comment on above: Performed By: #### L 100.0100, L503.6550, L504.2610, L503.0106, L503.6030, L500.4050, L3100.1350 ####[facility] [address] [place], [address] IG% 0.400 Normal 0.0-0.9 [facility] Comment on above: Result Comment: IG% - Immature Granulocytes (promyelocytes, myelocytes andmetamyelocytes) > 1% indicates that a LEFT SHIFT is Present. Performed By: #### L 100.0100, L503.6550, L504.2610, L503.0106, L503.6030, L500.4050, L3100.1350 ####[facility] [address] [place], [address] Lymphocytes/100 WBC (Bld) 17.7 % Low 19-41 [facility] Comment on above: Performed By: #### L 100.0100, L503.6550, L504.2610, L503.0106, L503.6030, L500.4050, L3100.1350 ####[facility] [address] [place], [address] MCH (RBC) [Entitic mass] 34.2 pg High 27.0-32.0 [facility] Comment on above: Performed By: #### L 100.0100, L503.6550, L504.2610, L503.0106, L503.6030, L500.4050, L3100.1350 ####[facility] [address] [place], [address] MCHC (RBC) [Mass/Vol] 33.6 g/dL Normal 32-36 [facility] Comment on above: Performed By: #### L 100.0100, L503.6550, L504.2610, L503.0106, L503.6030, L500.4050, L3100.1350 ####[facility] [address] [place], [address] MCV (RBC) [Entitic vol] 102.0 fL High 80-94 [facility] Comment on above: Performed By: #### L 100.0100, L503.6550, L504.2610, L503.0106, L503.6030, L500.4050, L3100.1350 ####[facility] [address] [place], [address] Monocytes/100 WBC (Bld) 7.9 % Normal 0-10 [facility] Comment on above: Performed By: #### L 100.0100, L503.6550, L504.2610, L503.0106, L503.6030, L500.4050, L3100.1350 ####[facility] [address] [place], [address] Neutrophils/100 WBC (Bld) 68.2 % Normal 47-70 [facility] Comment on above: Performed By: #### L 100.0100, L503.6550, L504.2610, L503.0106, L503.6030, L500.4050, L3100.1350 ####[facility] [address] [place], [address] Nucleated RBC (Bld) [#/Vol] 0 10*3/uL Normal 0-5 [facility] Comment on above: Performed By: #### L 100.0100, L503.6550, L504.2610, L503.0106, L503.6030, L500.4050, L3100.1350 ####[facility] [address] [place], [address] Platelet mean volume (Bld) [Entitic vol] 10.7 fL Normal 6.2-12.0 [facility] Comment on above: Performed By: #### L 100.0100, L503.6550, L504.2610, L503.0106, L503.6030, L500.4050, L3100.1350 ####[facility] [address] [place], [address] Platelets (Bld) [#/Vol] 119 10*3/uL Low 150-450 [facility] Comment on above: Performed By: #### L 100.0100, L503.6550, L504.2610, L503.0106, L503.6030, L500.4050, L3100.1350 ####[facility] [address] [place], [address] RBC (Bld) [#/Vol] 2.98 10*6/uL Low 4.6-6.2 [facility] Comment on above: Performed By: #### L 100.0100, L503.6550, L504.2610, L503.0106, L503.6030, L500.4050, L3100.1350 ####[facility] [address] [place], [address] RDW SD 51.2 fl High 35.1-43.9 [facility] Comment on above: Performed By: #### L 100.0100, L503.6550, L504.2610, L503.0106, L503.6030, L500.4050, L3100.1350 ####[facility] [address] [place], [address] WBC (Bld) [#/Vol] 5.2 10*3/uL Normal 4.4-11.0 [facility] Comment on above: Performed By: #### L 100.0100, L503.6550, L504.2610, L503.0106, L503.6030, L500.4050, L3100.1350 ####[facility] [address] [place], [address] Comprehensive Metabolic Prof [facility] 05-16-2025 Albumin [Mass/Vol] 4.2 g/dL Normal 3.4-4.8 [facility] Comment on above: Performed By: #### L 100.0100, L503.6550, L504.2610, L503.0106, L503.6030, L500.4050, L3100.1350 ####[facility] [address] [place], [address] Albumin/Globulin [Mass ratio] 1.7 {ratio} Normal 0.9-2.4 [facility] Comment on above: Performed By: #### L 100.0100, L503.6550, L504.2610, L503.0106, L503.6030, L500.4050, L3100.1350 ####[facility] [address] [place], [address] ALK PHOS 100 U/L Normal 40-129 [facility] Comment on above: Performed By: #### L 100.0100, L503.6550, L504.2610, L503.0106, L503.6030, L500.4050, L3100.1350 ####[facility] [address] [place], [address] ALT [Catalytic activity/Vol] 33 U/L Normal <=46 [facility] Comment on above: Performed By: #### L 100.0100, L503.6550, L504.2610, L503.0106, L503.6030, L500.4050, L3100.1350 ####[facility] [address] [place], [address] AST [Catalytic activity/Vol] 22 U/L Normal <=37 [facility] Comment on above: Performed By: #### L 100.0100, L503.6550, L504.2610, L503.0106, L503.6030, L500.4050, L3100.1350 ####[facility] [address] [place], [address] Bilirubin [Mass/Vol] 0.36 mg/dL Normal 0.00-1.30 [facility] Comment on above: Performed By: #### L 100.0100, L503.6550, L504.2610, L503.0106, L503.6030, L500.4050, L3100.1350 ####[facility] [address] [place], [address] BUN/CRE 27.8 RATIO High 10-20 [facility] Comment on above: Performed By: #### L 100.0100, L503.6550, L504.2610, L503.0106, L503.6030, L500.4050, L3100.1350 ####[facility] [address] [place], [address] Calcium [Mass/Vol] 9.3 mg/dL Normal 7.6-11.0 [facility] Comment on above: Performed By: #### L 100.0100, L503.6550, L504.2610, L503.0106, L503.6030, L500.4050, L3100.1350 ####[facility] [address] [place], [address] Chloride [Moles/Vol] 114 mmol/L High 98-108 [facility] Comment on above: Performed By: #### L 100.0100, L503.6550, L504.2610, L503.0106, L503.6030, L500.4050, L3100.1350 ####[facility] [address] [place], [address] CO2 [Moles/Vol] 15.1 mmol/L Low 21.0-32.0 [facility] Comment on above: Performed By: #### L 100.0100, L503.6550, L504.2610, L503.0106, L503.6030, L500.4050, L3100.1350 ####[facility] [address] [place], [address] Creatinine [Mass/Vol] 2.32 mg/dL High 0.70-1.20 [facility] Comment on above: Performed By: #### L 100.0100, L503.6550, L504.2610, L503.0106, L503.6030, L500.4050, L3100.1350 ####[facility] [address] [place], [address] ECRCL 19.85 ml/min Low 50-250 [facility] Comment on above: Performed By: #### L 100.0100, L503.6550, L504.2610, L503.0106, L503.6030, L500.4050, L3100.1350 ####[facility] [address] [place], [address] GAP 14 Normal 5-15 [facility] Comment on above: Performed By: #### L 100.0100, L503.6550, L504.2610, L503.0106, L503.6030, L500.4050, L3100.1350 ####[facility] [address] [place], [address] GFR/1.73 sq M.predicted among non-blacks MDRD (S/P/Bld) [Vol rate/Area] 26 mL/min/{1.73_m2} Low >60 [facility] Comment on above: Result Comment: mL/m in/1.73m2 CKD-EPI Creatinine Equation (2020) Performed By: #### L 100.0100, L503.6550, L504.2610, L503.0106, L503.6030, L500.4050, L3100.1350 ####[facility] [address] [place], [place], [phone] Globulin (S) [Mass/Vol] 2.6 g/dL Normal 2.2-4.2 [facility] Comment on above: Performed By: #### L 100.0100, L503.6550, L504.2610, L503.0106, L503.6030, L500.4050, L3100.1350 ####[facility] [address] [place], [address] Glucose [Mass/Vol] 115 mg/dL High 70-99 [facility] Comment on above: Performed By: #### L 100.0100, L503.6550, L504.2610, L503.0106, L503.6030, L500.4050, L3100.1350 ####[facility] [address] [place], [address] Potassium [Moles/Vol] 4.1 mmol/L Normal 3.3-5.1 [facility] Comment on above: Performed By: #### L 100.0100, L503.6550, L504.2610, L503.0106, L503.6030, L500.4050, L3100.1350 ####[facility] [address] [place], [address] Sodium [Moles/Vol] 143 mmol/L Normal 133-145 [facility] Comment on above: Performed By: #### L 100.0100, L503.6550, L504.2610, L503.0106, L503.6030, L500.4050, L3100.1350 ####[facility] [address] [place], [address] T PROT 6.8 g/dL Normal 5.9-8.4 [facility] Comment on above: Performed By: #### L 100.0100, L503.6550, L504.2610, L503.0106, L503.6030, L500.4050, L3100.1350 ####[facility] [address] [place], [address] Urea nitrogen [Mass/Vol] 65 mg/dL High 4-19 [facility] Comment on above: Performed By: #### L 100.0100, L503.6550, L504.2610, L503.0106, L503.6030, L500.4050, L3100.1350 ####[facility] [address] [place], [place], [phone] Eosinophil percentageOrdered By: Felipe Shikha on 05-16-2025 Eosinophils/100 WBC (Bld) 5.2 % High 0-5 [facility] Erythrocyte distribution wid th ratioOrdered By: Felipe [facility] on 05-16-2025 Erythrocyte distribution width (RBC) [Ratio] 13.8 % 11.6-14.6 [facility] Erythrocyte distribution wid th standard deviationOrdered By: [facility] on 05-16-2025 Erythrocyte distribution width (RBC) [Ratio] 51.2 fl High 35.1-43.9 [facility] Ferritinon 05-16-2025 Ferritin [Mass/Vol] 612 ng/mL High 37-417 [facility] Comment on above: Performed By: #### L 100.0100, L503.6550, L504.2610, L503.0106, L503.6030, L500.4050, L3100.1350 ####[facility] [address] [place], [place], [id number] Hematocrit Auto (Bld) [Volum e fraction]Ordered By: Felipe Vazquez on 05-16-2025 Hematocrit (Bld) [Volume fraction] 30.4 % Low 40-54 [facility] Hemoglobin measurementOrdere d By: Felipe Trivedi on 05-16-2025 Hemoglobin (Bld) [Mass/Vol] 10.2 g/dL Low 13.0-16.5 [facility] Immature granulocytes/100 WB C Auto (Bld)Ordered By: [facility] on 05-16-2025 Immature granulocytes/100 WBC (Bld) 0.400 % 0.0-0.9 [facility] Comment on above: IG% - Immature Granu locytes (promyelocytes, myelocytes and metamyelocytes) > 1% indicates that a LEFT SHIFT is Present. Iron+Iron Binding Capacityon 05-16-2025 TIBC 213 ug/dL Low 250-450 [facility] Comment on above: Performed By: #### L 100.0100, L503.6550, L504.2610, L503.0106, L503.6030, L500.4050, L3100.1350 ####[facility] [address] [place], [place], [id number] LDHon 05-16-2025 LDH 170 U/L Normal 87-241 [facility] Comment on above: Order Comment: 1 Performed By: #### L 100.0100, L503.6550, L504.2610, L503.0106, L503.6030, L500.4050, L3100.1350 ####[facility] [address] [place], [place], [id number] MCV (mean corpuscular volume ) determinationOrdered By: eFlipe Trivedi on 05-16-2025 MCV (RBC) [Entitic vol] 102.0 fL High 80-94 [facility] Mean corpuscular hemoglobin (MCH) determinationOrdered By: Felipe Trivedi on 05-16-2025 MCH (RBC) [Entitic mass] 34.2 pg High 27.0-32.0 [facility] Mean corpuscular hemoglobin concentration (MCHC) determinationOrdered By: Felipe Trivedi on 05-16-2025 MCHC (RBC) [Mass/Vol] 33.6 g/dL 32-36 [facility] Mean platelet volume determi nationOrdered By: Felipe Trivedi on 05-16-2025 Platelet mean volume (Bld) [Entitic vol] 10.7 fL 6.2-12.0 [facility] Monocyte percentageOrdered B y: Felipe Trivedi on 05-16-2025 Monocytes/100 WBC (Bld) 7.9 % 0-10 [facility] Neutrophil percentageOrdered By: Felipe Trivedi on 05-16-2025 Neutrophils/100 WBC (Bld) 68.2 % 47-70 [facility] Nucleated red blood cell per centageOrdered By: Felipe Trivedi on 05-16-2025 Nucleated RBC/100 WBC (Bld) [Ratio] 0 % 0-5 [facility] Oncology Visit Reporton 04-25 Oncology Visit Report Normal [facility] Platelet countOrdered By: Jayla Trivedi on 05-16-2025 Platelets (Bld) [#/Vol] 119 10*3/uL Low 150-450 [facility] RBC Auto (Bld) [#/Vol]Ordere d By: Felipe Trivedi on 05-16-2025 RBC (Bld) [#/Vol] 2.98 10*6/uL Low 4.6-6.2 [facility] Serum or plasma erythropoiet in (EPO) measurement (units/volume)Ordered By: Felipe Trivedi on 05-16-2025 Erythropoietin (EPO) Qn 13.7 mIU/mL 2.6-18.5 [facility] Comment on above: Balloon[employer] el DxI 800 Immunoassay SystemValues obtained with different assay methods or kits cannotbe used interchangeably. Results cannot be interpreted asabsolute evidence of the presence or absence of malignantdisease.Performed at: [facility] [address] [id number] Director: Andres Abel PhD, Phone: [phone] Vitamin B12on 05-16-2025 Cobalamin (Vitamin B12) [Mass/Vol] 890 pg/mL Normal 180-914 [facility] Comment on above: Performed By: #### L 100.0100, L503.6550, L504.2610, L503.0106, L503.6030, L500.4050, L3100.1350 ####[facility] [address] [place], [place], [id number] Vitamin B12 ser/plasOrdered By: Felipe Trivedi on 05-16-2025 Cobalamin (Vitamin B12) [Mass/Vol] 890 pg/mL 180-914 [facility] White blood cell (WBC) count Ordered By: Felipe Trivedi on 05-16-2025 WBC (Bld) [#/Vol] 5.2 10*3/uL 4.4-11.0 [facility] Absolute lymphocyte countOrd ered By: Felipe Trivedi on 04-18-2025 Lymphocytes Auto (Unsp spec) [#/Vol] 0.92 10*3/uL 0.83-4.51 [facility] Absolute neutrophil countOrd ered By: Felipe Shikha on 04-18-2025 Neutrophils (Bld) [#/Vol] 2.8 10*3/uL 2.0-7.7 [facility] Anion gap in Serum or Plasma Ordered By: Felipe Trivedi on 04-18-2025 Anion gap [Moles/Vol] 13 mmol/L 5- [facility] Automated lymphocyte count a s percentage of total leukocytesOrdered By: Felipe Trivedi on 04-18-2025 Lymphocytes/100 WBC Auto (Unsp spec) 20.8 % - [facility] BUN/creatinine ratioOrdered By: Felipe Trivedi on 04-18-2025 Urea nitrogen/Creatinine [Mass ratio] 29.3 mg/mg High 10- [facility] Basophil percentageOrdered B y: Felipe Trivedi on 04-18-2025 Basophils/100 WBC (Bld) 1.1 % High 0-1 [facility] Bilirubin, totalOrdered By: Felipe Trivedi on 04-18-2025 Bilirubin [Mass/Vol] 0.64 mg/dL 0.00-1.30 [facility] CBC W/Diff, Automatedon 03-26 Absolute Lymph 0.92 X10 3/uL Normal 0.83-4.51 [facility] Comment on above: Performed By: #### L 504.2610, L503.6030, L100.0100, L503.6550, L500.4050 ####[facility] [address] [place], [address] Absolute Neut 2.8 X10 3/uL Normal 2.0-7.7 [facility] Comment on above: Performed By: #### L 504.2610, L503.6030, L100.0100, L503.6550, L500.4050 ####[facility] [address] [place], [address] Basophils/100 WBC (Bld) 1.1 % High 0-1 [facility] Comment on above: Performed By: #### L 504.2610, L503.6030, L100.0100, L503.6550, L500.4050 ####[facility] [address] [place], [address] Eosinophils/100 WBC (Bld) 5.4 % High 0-5 [facility] Comment on above: Performed By: #### L 504.2610, L503.6030, L100.0100, L503.6550, L500.4050 ####[facility] [address] [place], [address] Erythrocyte distribution width (RBC) [Ratio] 14.8 % High 11.6-14.6 [facility] Comment on above: Performed By: #### L 504.2610, L503.6030, L100.0100, L503.6550, L500.4050 ####[facility] [address] [place], [address] Hematocrit (Bld) [Volume fraction] 31.4 % Low 40-54 [facility] Comment on above: Performed By: #### L 504.2610, L503.6030, L100.0100, L503.6550, L500.4050 ####[facility] [address] [place], [address] Hemoglobin (Bld) [Mass/Vol] 10.4 g/dL Low 13.0-16.5 [facility] Comment on above: Performed By: #### L 504.2610, L503.6030, L100.0100, L503.6550, L500.4050 ####[facility] [address] [place], [address] IG% 0.200 Normal 0.0-0.9 [facility] Comment on above: Result Comment: IG% - Immature Granulocytes (promyelocytes, myelocytes andmetamyelocytes) > 1% indicates that a LEFT SHIFT is Present. Performed By: #### L 504.2610, L503.6030, L100.0100, L503.6550, L500.4050 ####[facility] [address] [place], [address] Lymphocytes/100 WBC (Bld) 20.8 % Normal 19-41 [facility] Comment on above: Performed By: #### L 504.2610, L503.6030, L100.0100, L503.6550, L500.4050 ####[facility] [address] [place], [address] MCH (RBC) [Entitic mass] 34.9 pg High 27.0-32.0 [facility] Comment on above: Performed By: #### L 504.2610, L503.6030, L100.0100, L503.6550, L500.4050 ####[facility] [address] [place], [address] MCHC (RBC) [Mass/Vol] 33.1 g/dL Normal 32-36 [facility] Comment on above: Performed By: #### L 504.2610, L503.6030, L100.0100, L503.6550, L500.4050 ####[facility] [address] [place], [address] MCV (RBC) [Entitic vol] 105.4 fL High 80-94 [facility] Comment on above: Performed By: #### L 504.2610, L503.6030, L100.0100, L503.6550, L500.4050 ####[facility] [address] [place], [address] Monocytes/100 WBC (Bld) 8.4 % Normal 0-10 [facility] Comment on above: Performed By: #### L 504.2610, L503.6030, L100.0100, L503.6550, L500.4050 ####[facility] [address] [place], [address] Neutrophils/100 WBC (Bld) 64.1 % Normal 47-70 [facility] Comment on above: Performed By: #### L 504.2610, L503.6030, L100.0100, L503.6550, L500.4050 ####[facility] [address] [place], [address] Nucleated RBC (Bld) [#/Vol] 0 10*3/uL Normal 0-5 [facility] Comment on above: Performed By: #### L 504.2610, L503.6030, L100.0100, L503.6550, L500.4050 ####[facility] [address] [place], [address] Platelet mean volume (Bld) [Entitic vol] 9.8 fL Normal 6.2-12.0 [facility] Comment on above: Performed By: #### L 504.2610, L503.6030, L100.0100, L503.6550, L500.4050 ####[facility] [address] [place], [address] Platelets (Bld) [#/Vol] 135 10*3/uL Low 150-450 [facility] Comment on above: Performed By: #### L 504.2610, L503.6030, L100.0100, L503.6550, L500.4050 ####[facility] [address] [place], [address] RBC (Bld) [#/Vol] 2.98 10*6/uL Low 4.6-6.2 [facility] Comment on above: Performed By: #### L 504.2610, L503.6030, L100.0100, L503.6550, L500.4050 ####[facility] [address] [place], [address] RDW SD 57.4 fl High 35.1-43.9 [facility] Comment on above: Performed By: #### L 504.2610, L503.6030, L100.0100, L503.6550, L500.4050 ####[facility] [address] [place], [address] WBC (Bld) [#/Vol] 4.4 10*3/uL Normal 4.4-11.0 [facility] Comment on above: Performed By: #### L 504.2610, L503.6030, L100.0100, L503.6550, L500.4050 ####[facility] [address] [place], [address] Carbon dioxide, total [Moles /volume] in Central venous bloodOrdered By: Felipe Trivedi on 04-18-2025 CO2 [Moles/Vol] 18.3 mmol/L Low 21.0-32.0 [facility] Chloride assayOrdered By: Jayla Trivedi on 04-18-2025 Chloride [Moles/Vol] 110 mmol/L High 98-108 [facility] Comprehensive Metabolic Prof ilon 04-18-2025 Albumin [Mass/Vol] 4.1 g/dL Normal 3.4-4.8 [facility] Comment on above: Performed By: #### L 504.2610, L503.6030, L100.0100, L503.6550, L500.4050 ####[facility] [address] [place], [address] Albumin/Globulin [Mass ratio] 1.5 {ratio} Normal 0.9-2.4 [facility] Comment on above: Performed By: #### L 504.2610, L503.6030, L100.0100, L503.6550, L500.4050 ####[facility] [address] [place], [address] ALK PHOS 99 U/L Normal 40-129 [facility] Comment on above: Performed By: #### L 504.2610, L503.6030, L100.0100, L503.6550, L500.4050 ####[facility] [address] [place], [address] ALT [Catalytic activity/Vol] 26 U/L Normal <=46 [facility] Comment on above: Performed By: #### L 504.2610, L503.6030, L100.0100, L503.6550, L500.4050 ####[facility] [address] [place], [address] AST [Catalytic activity/Vol] 20 U/L Normal <=37 [facility] Comment on above: Performed By: #### L 504.2610, L503.6030, L100.0100, L503.6550, L500.4050 ####[facility] [address] [place], [address] Bilirubin [Mass/Vol] 0.64 mg/dL Normal 0.00-1.30 [facility] Comment on above: Performed By: #### L 504.2610, L503.6030, L100.0100, L503.6550, L500.4050 ####[facility] [address] [place], [address] BUN/CRE 29.3 RATIO High 10-20 [facility] Comment on above: Performed By: #### L 504.2610, L503.6030, L100.0100, L503.6550, L500.4050 ####[facility] [address] [place], [address] Calcium [Mass/Vol] 9.6 mg/dL Normal 7.6-11.0 [facility] Comment on above: Performed By: #### L 504.2610, L503.6030, L100.0100, L503.6550, L500.4050 ####[facility] [address] [place], [address] Chloride [Moles/Vol] 110 mmol/L High 98-108 [facility] Comment on above: Performed By: #### L 504.2610, L503.6030, L100.0100, L503.6550, L500.4050 ####[facility] [address] [place], [address] CO2 [Moles/Vol] 18.3 mmol/L Low 21.0-32.0 [facility] Comment on above: Performed By: #### L 504.2610, L503.6030, L100.0100, L503.6550, L500.4050 ####[facility] [address] [place], [address] Creatinine [Mass/Vol] 2.59 mg/dL High 0.70-1.20 [facility] Comment on above: Performed By: #### L 504.2610, L503.6030, L100.0100, L503.6550, L500.4050 ####[facility] [address] [place], [address] ECRCL 18.36 ml/min Low 50-250 [facility] Comment on above: Performed By: #### L 504.2610, L503.6030, L100.0100, L503.6550, L500.4050 ####[facility] [address] [place], [address] GAP 13 Normal 5-15 [facility] Comment on above: Performed By: #### L 504.2610, L503.6030, L100.0100, L503.6550, L500.4050 ####[facility] [address] [place], [address] GFR/1.73 sq M.predicted among non-blacks MDRD (S/P/Bld) [Vol rate/Area] 23 mL/min/{1.73_m2} Low >60 [facility] Comment on above: Result Comment: mL/m in/1.73m2 CKD-EPI Creatinine Equation (2020) Performed By: #### L 504.2610, L503.6030, L100.0100, L503.6550, L500.4050 ####[facility] [address] [place], [address] Globulin (S) [Mass/Vol] 2.8 g/dL Normal 2.2-4.2 [facility] Comment on above: Performed By: #### L 504.2610, L503.6030, L100.0100, L503.6550, L500.4050 ####[facility] [address] [place], [address] Glucose [Mass/Vol] 120 mg/dL High 70-99 [facility] Comment on above: Performed By: #### L 504.2610, L503.6030, L100.0100, L503.6550, L500.4050 ####[facility] [address] [place], [address] Potassium [Moles/Vol] 4.5 mmol/L Normal 3.3-5.1 [facility] Comment on above: Performed By: #### L 504.2610, L503.6030, L100.0100, L503.6550, L500.4050 ####[facility] [address] [place], [address] Sodium [Moles/Vol] 141 mmol/L Normal 133-145 [facility] Comment on above: Performed By: #### L 504.2610, L503.6030, L100.0100, L503.6550, L500.4050 ####[facility] [address] [place], [address] T PROT 6.9 g/dL Normal 5.9-8.4 [facility] Comment on above: Performed By: #### L 504.2610, L503.6030, L100.0100, L503.6550, L500.4050 ####[facility] [address] [place], [address] Urea nitrogen [Mass/Vol] 76 mg/dL High 4-19 [facility] Comment on above: Performed By: #### L 504.2610, L503.6030, L100.0100, L503.6550, L500.4050 ####[facility] [address] [place], [address] Eosinophil percentageOrdered By: Felipe Trivedi on 04-18-2025 Eosinophils/100 WBC (Bld) 5.4 % High 0-5 [facility] Erythrocyte distribution wid th ratioOrdered By: Felipe Trivedi on 04-18-2025 Erythrocyte distribution width (RBC) [Ratio] 14.8 % High 11.6-14.6 [facility] Erythrocyte distribution wid th standard deviationOrdered By: Felipe Shikha on 04-18-2025 Erythrocyte distribution width (RBC) [Ratio] 57.4 fl High 35.1-43.9 [facility] Ferritinon 04-18-2025 Ferritin [Mass/Vol] 696 ng/mL High 37-417 [facility] Comment on above: Performed By: #### L 504.2610, L503.6030, L100.0100, L503.6550, L500.4050 ####[facility] [id number] [place], [address] Glomerular filtration rate ( GFR) estimation/1.73 sq m using serum, plasma, or whole bOrdered By: Felipe Trivedi on 04-18-2025 GFR/1.73 sq M.predicted among non-blacks MDRD (S/P/Bld) [Vol rate/Area] 23 mL/min/{1.73_m2} Low >60 [facility] Comment on above: mL/min/1.73m2 CKD-EP I Creatinine Equation (2020) Hematocrit Auto (Bld) [Volum e fraction]Ordered By: Felipe Trivedi on 04-18-2025 Hematocrit (Bld) [Volume fraction] 31.4 % Low 40-54 [facility] Hemoglobin measurementOrdere d By: Felipe Trivedi on 04-18-2025 Hemoglobin (Bld) [Mass/Vol] 10.4 g/dL Low 13.0-16.5 [facility] Immature granulocytes/100 WB C Auto (Bld)Ordered By: Felipe Trivedi on 04-18-2025 Immature granulocytes/100 WBC (Bld) 0.200 % 0.0-0.9 [facility] Comment on above: IG% - Immature Granu locytes (promyelocytes, myelocytes and metamyelocytes) > 1% indicates that a LEFT SHIFT is Present. Iron measurement (mass/mass) Ordered By: Felipe Trivedi on 04-18-2025 Iron (Unsp spec) [Mass/Mass] 103 ug/dL 65-175 [facility] Iron+Iron Binding Capacityon 04-18-2025 TIBC 231 ug/dL Low 250-450 [facility] Comment on above: Performed By: #### L 504.2610, L503.6030, L100.0100, L503.6550, L500.4050 ####[facility] [address] [place], [address] LDHon 04-18-2025 LDH 183 U/L Normal 87-241 [facility] Comment on above: Order Comment: 1 Performed By: #### L 504.2610, L503.6030, L100.0100, L503.6550, L500.4050 ####[facility] [address] [place], [address] Laboratory - Chemistry and C hemistry - challengeOrdered By: Felipe Trivedi on 04-18-2025 AST [Catalytic activity/Vol] 20 U/L <38 [facility] Lactate dehydrogenase (LDH) measurementOrdered By: Felipe Trivedi on 04-18-2025 LDH [Catalytic activity/Vol] 183 U/L 87-241 [facility] MCV (mean corpuscular volume ) determinationOrdered By: Felipe Trivedi on 04-18-2025 MCV (RBC) [Entitic vol] 105.4 fL High 80-94 [facility] Mean corpuscular hemoglobin (MCH) determinationOrdered By: Felipe Trivedi on 04-18-2025 MCH (RBC) [Entitic mass] 34.9 pg High 27.0-32.0 [facility] Mean corpuscular hemoglobin concentration (MCHC) determinationOrdered By: Felipe Trivedi on 04-18-2025 MCHC (RBC) [Mass/Vol] 33.1 g/dL 32-36 [facility] Mean platelet volume determi nationOrdered By: Felipe Trivedi on 04-18-2025 Platelet mean volume (Bld) [Entitic vol] 9.8 fL 6.2-12.0 [facility] Monocyte percentageOrdered B y: Felipe Trivedi on 04-18-2025 Monocytes/100 WBC (Bld) 8.4 % 0-10 [facility] Neutrophil percentageOrdered By: Felipe Trivedi on 04-18-2025 Neutrophils/100 WBC (Bld) 64.1 % 47-70 [facility] No Panel InformationOrdered By: Felipe Trivedi on 04-18-2025 Unsaturated Iron Binding Capacity 128 ug/dL Low 228-428 [facility] Nucleated red blood cell per centageOrdered By: Felipe Trivedi on 04-18-2025 Nucleated RBC/100 WBC (Bld) [Ratio] 0 % 0-5 [facility] Oncology Visit Reporton 03-26 Oncology Visit Report Normal [facility] Platelet countOrdered By: Jayla Trivedi on 04-18-2025 Platelets (Bld) [#/Vol] 135 10*3/uL Low 150-450 [facility] Potassium measurement (mass/ volume)Ordered By: Felipe Trivedi on 04-18-2025 Potassium (Unsp spec) [Mass/Vol] 4.5 mmol/L 3.3-5.1 [facility] RBC Auto (Bld) [#/Vol]Ordere d By: Felipe Trivedi on 04-18-2025 RBC (Bld) [#/Vol] 2.98 10*6/uL Low 4.6-6.2 [facility] Serum creatinine measurement (mass/volume)Ordered By: Felipe Trivedi on 04-18-2025 Creatinine [Mass/Vol] 2.59 mg/dL High 0.70-1.20 [facility] Serum globulin measurementOr dered By: Felipe Trivedi on 04-18-2025 Globulin (S) [Mass/Vol] 2.8 g/dL 2.2-4.2 [facility] Serum glucose measurement (m ass/volume)Ordered By: Felipe Trivedi on 04-18-2025 Glucose [Mass/Vol] 120 mg/dL High 70-99 [facility] Serum or plasma alanine whitehead otransferase (ALT) measurementOrdered By: Felipe Trivedi on 04-18-2025 ALT [Catalytic activity/Vol] 26 U/L <47 [facility] Serum or plasma albumin viky urement (mass/volume)Ordered By: Felipe Trivedi on 04-18-2025 Albumin [Mass/Vol] 4.1 g/dL 3.4-4.8 [facility] Serum or plasma albumin/glob ulin mass ratioOrdered By: Felipe Trivedi on 04-18-2025 Albumin/Globulin [Mass ratio] 1.5 {ratio} 0.9-2.4 [facility] Serum or plasma alkaline rhona sphatase measurementOrdered By: Felipe Trivedi on 04-18-2025 ALP [Catalytic activity/Vol] 99 U/L 40-129 [facility] Serum or plasma calcium viky urement (mass/volume)Ordered By: Felipe Trivedi on 04-18-2025 Calcium [Mass/Vol] 9.6 mg/dL 7.6-11.0 [facility] Serum or plasma ferritin kate surement (mass/volume)Ordered By: Felipe Trivedi on 04-18-2025 Ferritin [Mass/Vol] 696 ng/mL High 37-417 [facility] Serum or plasma iron saturat ion measurement (mass fraction)Ordered By: Felipe Trivedi on 04-18-2025 Iron saturation [Mass fraction] 44.6 % 9-55 [facility] Comment on above: Previous reported re sult: 45.0 %Edited by: MITZI on 04/18/25:1621 AMENDED REPORT 04/18/25 1621 IRON SATURATION previously reported as: 45.0 % Serum or plasma urea nitroge n measurement (mass/volume)Ordered By: Felipe rTivedi on 04-18-2025 Urea nitrogen [Mass/Vol] 76 mg/dL High 4-19 [facility] Sodium levelOrdered By: Luis Trivedi on 04-18-2025 Sodium [Moles/Vol] 141 mmol/L 133-145 [facility] Total proteinOrdered By: Elvin Trivedi on 04-18-2025 Protein [Mass/Vol] 6.9 g/dL 5.9-8.4 [facility] White blood cell (WBC) count Ordered By: Felipe Trivedi on 04-18-2025 WBC (Bld) [#/Vol] 4.4 10*3/uL 4.4-11.0 [facility] Absolute lymphocyte countOrd ered By: Felipe Trivedi on 03-21-2025 Lymphocytes Auto (Unsp spec) [#/Vol] 0.69 10*3/uL Low 0.83-4.51 [facility] Absolute neutrophil countOrd ered By: Felipe Trivedi on 03-21-2025 Neutrophils (Bld) [#/Vol] 3.2 10*3/uL 2.0-7.7 [facility] Anion gap in Serum or Plasma Ordered By: Felipe Trivedi on 03-21-2025 Anion gap [Moles/Vol] 13 mmol/L 5-15 [facility] Automated lymphocyte count a s percentage of total leukocytesOrdered By: Felipe Trivedi on 03-21-2025 Lymphocytes/100 WBC Auto (Unsp spec) 15.5 % Low 19-41 [facility] BUN/creatinine ratioOrdered By: Felipe Trivedi on 03-21-2025 Urea nitrogen/Creatinine [Mass ratio] 26.3 mg/mg High 10-20 [facility] Basophil percentageOrdered B y: Felipe Trivedi on 03-21-2025 Basophils/100 WBC (Bld) 0.7 % 0-1 [facility] Bilirubin, totalOrdered By: Felipe Trivedi on 03-21-2025 Bilirubin [Mass/Vol] 0.81 mg/dL 0.00-1.30 [facility] Blood manual differential co mment interpretation (narrative result)Ordered By: Felipe Trivedi on 03-21-2025 Manual differential comment Rafal (Bld) [Interp] SCANNED [facility] CBC W/Diff, Automatedon -2 PLT EST SLT DEC Normal ADEQ [facility] Comment on above: Performed By: #### L 504.2610, L500.4050, L100.0100 ####[facility] [address] [place], [address] SMEAR COMMENT SCANNED Normal [facility] Comment on above: Performed By: #### L 504.2610, L500.4050, L100.0100 ####[facility] [address] [place], [address] Carbon dioxide, total [Moles /volume] in Central venous bloodOrdered By: Felipe Trivedi on 03-21-2025 CO2 [Moles/Vol] 19.8 mmol/L Low 21.0-32.0 [facility] Chloride assayOrdered By: Jayla Trivedi on 03-21-2025 Chloride [Moles/Vol] 109 mmol/L High 98-108 [facility] Comprehensive Metabolic Prof ilon 03-21-2025 Albumin [Mass/Vol] 4.5 g/dL Normal 3.4-4.8 [facility] Comment on above: Performed By: #### L 504.2610, L500.4050, L100.0100 ####[facility] [address] [place], [address] Albumin/Globulin [Mass ratio] 1.6 {ratio} Normal 0.9-2.4 [facility] Comment on above: Performed By: #### L 504.2610, L500.4050, L100.0100 ####[facility] [address] [place], [address] ALK PHOS 94 U/L Normal 40-129 [facility] Comment on above: Performed By: #### L 504.2610, L500.4050, L100.0100 ####[facility] [address] [place], [address] ALT [Catalytic activity/Vol] 24 U/L Normal <=46 [facility] Comment on above: Performed By: #### L 504.2610, L500.4050, L100.0100 ####[facility] [address] [place], [address] AST [Catalytic activity/Vol] 24 U/L Normal <=37 [facility] Comment on above: Performed By: #### L 504.2610, L500.4050, L100.0100 ####[facility] [address] [place], [address] Bilirubin [Mass/Vol] 0.81 mg/dL Normal 0.00-1.30 [facility] Comment on above: Performed By: #### L 504.2610, L500.4050, L100.0100 ####[facility] [address] [place], [address] BUN/CRE 26.3 RATIO High 10-20 [facility] Comment on above: Performed By: #### L 504.2610, L500.4050, L100.0100 ####[facility] [address] [place], [address] Calcium [Mass/Vol] 9.7 mg/dL Normal 7.6-11.0 [facility] Comment on above: Performed By: #### L 504.2610, L500.4050, L100.0100 ####[facility] [address] [place], [address] Chloride [Moles/Vol] 109 mmol/L High 98-108 [facility] Comment on above: Performed By: #### L 504.2610, L500.4050, L100.0100 ####[facility] [address] [place], [address] CO2 [Moles/Vol] 19.8 mmol/L Low 21.0-32.0 [facility] Comment on above: Performed By: #### L 504.2610, L500.4050, L100.0100 ####[facility] [address] [place], [address] Creatinine [Mass/Vol] 2.39 mg/dL High 0.70-1.20 [facility] Comment on above: Performed By: #### L 504.2610, L500.4050, L100.0100 ####[facility] [address] [place], [address] ECRCL 19.88 ml/min Low 50-250 [facility] Comment on above: Performed By: #### L 504.2610, L500.4050, L100.0100 ####[facility] [address] [place], [address] GAP 13 Normal 5-15 [facility] Comment on above: Performed By: #### L 504.2610, L500.4050, L100.0100 ####[facility] [address] [place], [address] GFR/1.73 sq M.predicted among non-blacks MDRD (S/P/Bld) [Vol rate/Area] 25 mL/min/{1.73_m2} Low >60 [facility] Comment on above: Result Comment: mL/m in/1.73m2 CKD-EPI Creatinine Equation (2020) Performed By: #### L 504.2610, L500.4050, L100.0100 ####[facility] [address] [place], [address] Globulin (S) [Mass/Vol] 2.8 g/dL Normal 2.2-4.2 [facility] Comment on above: Performed By: #### L 504.2610, L500.4050, L100.0100 ####[facility] [address] [place], [address] Glucose [Mass/Vol] 95 mg/dL Normal 70-99 [facility] Comment on above: Performed By: #### L 504.2610, L500.4050, L100.0100 ####[facility] [address] [place], [address] Potassium [Moles/Vol] 3.5 mmol/L Normal 3.3-5.1 [facility] Comment on above: Performed By: #### L 504.2610, L500.4050, L100.0100 ####[facility] [address] [place], [address] Sodium [Moles/Vol] 142 mmol/L Normal 133-145 [facility] Comment on above: Performed By: #### L 504.2610, L500.4050, L100.0100 ####[facility] [address] [place], [address] T PROT 7.3 g/dL Normal 5.9-8.4 [facility] Comment on above: Performed By: #### L 504.2610, L500.4050, L100.0100 ####[facility] [address] [place], [address] Urea nitrogen [Mass/Vol] 63 mg/dL High 4-19 [facility] Comment on above: Performed By: #### L 504.2610, L500.4050, L100.0100 ####[facility] [address] [place], [address] Eosinophil percentageOrdered By: Felipe Trivedi on 03-21-2025 Eosinophils/100 WBC (Bld) 3.6 % 0-5 [facility] Erythrocyte distribution wid th ratioOrdered By: Felipe Trivedi on 03-21-2025 Erythrocyte distribution width (RBC) [Ratio] 17.0 % High 11.6-14.6 [facility] Erythrocyte distribution wid th standard deviationOrdered By: Felipe Trivedi on 03-21-2025 Erythrocyte distribution width (RBC) [Ratio] 65.7 fl High 35.1-43.9 [facility] Glomerular filtration rate ( GFR) estimation/1.73 sq m using serum, plasma, or whole bOrdered By: Felipe Trivedi on 03-21-2025 GFR/1.73 sq M.predicted among non-blacks MDRD (S/P/Bld) [Vol rate/Area] 25 mL/min/{1.73_m2} Low >60 [facility] Comment on above: mL/min/1.73m2 CKD-EP I Creatinine Equation (2020) Hematocrit Auto (Bld) [Volum e fraction]Ordered By: Felipe Taylor on 03-21-2025 Hematocrit (Bld) [Volume fraction] 31.9 % Low 40-54 [facility] Hemoglobin measurementOrdere d By: Felipe Trivedi on 03-21-2025 Hemoglobin (Bld) [Mass/Vol] 10.5 g/dL Low 13.0-16.5 [facility] Immature granulocytes/100 WB C Auto (Bld)Ordered By: Felipe Trivedi on 03-21-2025 Immature granulocytes/100 WBC (Bld) 0.200 % 0.0-0.9 [facility] Comment on above: IG% - Immature Granu locytes (promyelocytes, myelocytes and metamyelocytes) > 1% indicates that a LEFT SHIFT is Present. LDHon 03-21-2025 LDH 203 U/L Normal 87-241 [facility] Comment on above: Order Comment: 1 Performed By: #### L 504.2610, L500.4050, L100.0100 ####[facility] [address] [place], [address] Laboratory - Chemistry and C hemistry - challengeOrdered By: Felipe Shikha on 03-21-2025 AST [Catalytic activity/Vol] 24 U/L <38 [facility] Lactate dehydrogenase (LDH) measurementOrdered By: [facility] on 03-21-2025 LDH [Catalytic activity/Vol] 203 U/L 87-241 [facility] MCV (mean corpuscular volume ) determinationOrdered By: Felipe Trivedi on 03-21-2025 MCV (RBC) [Entitic vol] 104.2 fL High 80-94 [facility] Mean corpuscular hemoglobin (MCH) determinationOrdered By: Felipe Trivedi on 03-21-2025 MCH (RBC) [Entitic mass] 34.3 pg High 27.0-32.0 [facility] Mean corpuscular hemoglobin concentration (MCHC) determinationOrdered By: Felipe Trivedi on 03-21-2025 MCHC (RBC) [Mass/Vol] 32.9 g/dL 32-36 [facility] Mean platelet volume determi nationOrdered By: Felipe Trivedi on 03-21-2025 Platelet mean volume (Bld) [Entitic vol] 9.8 fL 6.2-12.0 [facility] Monocyte percentageOrdered B y: Felipe Trivedi on 03-21-2025 Monocytes/100 WBC (Bld) 7.8 % 0-10 [facility] Neutrophil percentageOrdered By: Felipe Trivedi on 03-21-2025 Neutrophils/100 WBC (Bld) 72.2 % High 47-70 [facility] Nucleated red blood cell per centageOrdered By: Felipe Trivedi on 03-21-2025 Nucleated RBC/100 WBC (Bld) [Ratio] 0 % 0-5 [facility] Oncology Visit Reporton 02-23 Oncology Visit Report Normal [facility] Platelet countOrdered By: Jayla Trivedi on 03-21-2025 Platelets (Bld) [#/Vol] 122 10*3/uL Low 150-450 [facility] Platelet estimateOrdered By: Felipe Trivedi on 03-21-2025 Platelets LM Ql (Bld) SLT DEC ADEQ [facility] Potassium measurement (mass/ volume)Ordered By: Felipe Trivedi on 03-21-2025 Potassium (Unsp spec) [Mass/Vol] 3.5 mmol/L 3.3-5.1 [facility] RBC Auto (Bld) [#/Vol]Ordere d By: Felipe Trivedi on 03-21-2025 RBC (Bld) [#/Vol] 3.06 10*6/uL Low 4.6-6.2 [facility] Serum creatinine measurement (mass/volume)Ordered By: Felipe Trivedi on 03-21-2025 Creatinine [Mass/Vol] 2.39 mg/dL High 0.70-1.20 [facility] Serum globulin measurementOr dered By: Felipe Trivedi on 03-21-2025 Globulin (S) [Mass/Vol] 2.8 g/dL 2.2-4.2 [facility] Serum glucose measurement (m ass/volume)Ordered By: Felipe Trivedi on 03-21-2025 Glucose [Mass/Vol] 95 mg/dL 70-99 [facility] Serum or plasma alanine whitehead otransferase (ALT) measurementOrdered By: Felipe Trivedi on 03-21-2025 ALT [Catalytic activity/Vol] 24 U/L <47 [facility] Serum or plasma albumin viky urement (mass/volume)Ordered By: Felipe Trivedi on 03-21-2025 Albumin [Mass/Vol] 4.5 g/dL 3.4-4.8 [facility] Serum or plasma albumin/glob ulin mass ratioOrdered By: Felipe Trivedi on 03-21-2025 Albumin/Globulin [Mass ratio] 1.6 {ratio} 0.9-2.4 [facility] Serum or plasma alkaline rhona sphatase measurementOrdered By: Felipe Trivedi on 03-21-2025 ALP [Catalytic activity/Vol] 94 U/L 40-129 [facility] Serum or plasma calcium viky urement (mass/volume)Ordered By: Felipe Trivedi on 03-21-2025 Calcium [Mass/Vol] 9.7 mg/dL 7.6-11.0 [facility] Serum or plasma urea nitroge n measurement (mass/volume)Ordered By: Felipe Trivedi on 03-21-2025 Urea nitrogen [Mass/Vol] 63 mg/dL High 4-19 [facility] Sodium levelOrdered By: Luis Trivedi on 03-21-2025 Sodium [Moles/Vol] 142 mmol/L 133-145 [facility] Total proteinOrdered By: Elvin Trivedi on 03-21-2025 Protein [Mass/Vol] 7.3 g/dL 5.9-8.4 [facility] White blood cell (WBC) count Ordered By: Felipe Trivedi on 03-21-2025 WBC (Bld) [#/Vol] 4.5 10*3/uL 4.4-11.0 [facility] CBC W/Diff, Automatedon 04-3 0-2025 Absolute Lymph 0.71 X10 3/uL Low 0.83-4.51 [facility] Comment on above: Performed By: #### L 500.4050, L503.6550, L100.0100, L503.6030, L100.9950, L504.2610 ####[facility] [address] [place], [address] Absolute Neut 3.0 X10 3/uL Normal 2.0-7.7 [facility] Comment on above: Performed By: #### L 500.4050, L503.6550, L100.0100, L503.6030, L100.9950, L504.2610 ####[facility] [address] [place], [address] Basophils/100 WBC (Bld) 0.7 % Normal 0-1 [facility] Comment on above: Performed By: #### L 500.4050, L503.6550, L100.0100, L503.6030, L100.9950, L504.2610 ####[facility] [address] [place], [address] Eosinophils/100 WBC (Bld) 3.7 % Normal 0-5 [facility] Comment on above: Performed By: #### L 500.4050, L503.6550, L100.0100, L503.6030, L100.9950, L504.2610 ####[facility] [address] [place], [address] Erythrocyte distribution width (RBC) [Ratio] 16.7 % High 11.6-14.6 [facility] Comment on above: Performed By: #### L 500.4050, L503.6550, L100.0100, L503.6030, L100.9950, L504.2610 ####[facility] [address] [place], [address] Hematocrit (Bld) [Volume fraction] 30.2 % Low 40-54 [facility] Comment on above: Performed By: #### L 500.4050, L503.6550, L100.0100, L503.6030, L100.9950, L504.2610 ####[facility] [address] [place], [address] Hemoglobin (Bld) [Mass/Vol] 10.1 g/dL Low 13.0-16.5 [facility] Comment on above: Performed By: #### L 500.4050, L503.6550, L100.0100, L503.6030, L100.9950, L504.2610 ####[facility] [address] [place], [address] IG% 0.200 Normal 0.0-0.9 [facility] Comment on above: Result Comment: IG% - Immature Granulocytes (promyelocytes, myelocytes andmetamyelocytes) > 1% indicates that a LEFT SHIFT is Present. Performed By: #### L 500.4050, L503.6550, L100.0100, L503.6030, L100.9950, L504.2610 ####[facility] [address] [place], [address] Lymphocytes/100 WBC (Bld) 16.6 % Low 19-41 [facility] Comment on above: Performed By: #### L 500.4050, L503.6550, L100.0100, L503.6030, L100.9950, L504.2610 ####[facility] [address] [place], [address] MCH (RBC) [Entitic mass] 33.9 pg High 27.0-32.0 [facility] Comment on above: Performed By: #### L 500.4050, L503.6550, L100.0100, L503.6030, L100.9950, L504.2610 ####[facility] [address] [place], [address] MCHC (RBC) [Mass/Vol] 33.4 g/dL Normal 32-36 [facility] Comment on above: Performed By: #### L 500.4050, L503.6550, L100.0100, L503.6030, L100.9950, L504.2610 ####[facility] [address] [place], [address] MCV (RBC) [Entitic vol] 101.3 fL High 80-94 [facility] Comment on above: Performed By: #### L 500.4050, L503.6550, L100.0100, L503.6030, L100.9950, L504.2610 ####[facility] [address] [place], [address] Monocytes/100 WBC (Bld) 8.4 % Normal 0-10 [facility] Comment on above: Performed By: #### L 500.4050, L503.6550, L100.0100, L503.6030, L100.9950, L504.2610 ####[facility] [address] [place], [address] Neutrophils/100 WBC (Bld) 70.4 % High 47-70 [facility] Comment on above: Performed By: #### L 500.4050, L503.6550, L100.0100, L503.6030, L100.9950, L504.2610 ####[facility] [address] [place], [address] Nucleated RBC (Bld) [#/Vol] 0 10*3/uL Normal 0-5 [facility] Comment on above: Performed By: #### L 500.4050, L503.6550, L100.0100, L503.6030, L100.9950, L504.2610 ####[facility] [address] [place], [address] Platelet mean volume (Bld) [Entitic vol] 10.1 fL Normal 6.2-12.0 [facility] Comment on above: Performed By: #### L 500.4050, L503.6550, L100.0100, L503.6030, L100.9950, L504.2610 ####[facility] [address] [place], [address] Platelets (Bld) [#/Vol] 116 10*3/uL Low 150-450 [facility] Comment on above: Performed By: #### L 500.4050, L503.6550, L100.0100, L503.6030, L100.9950, L504.2610 ####[facility] [address] [place], [address] RBC (Bld) [#/Vol] 2.98 10*6/uL Low 4.6-6.2 [facility] Comment on above: Performed By: #### L 500.4050, L503.6550, L100.0100, L503.6030, L100.9950, L504.2610 ####[facility] [address] [place], [address] RDW SD 60.2 fl High 35.1-43.9 [facility] Comment on above: Performed By: #### L 500.4050, L503.6550, L100.0100, L503.6030, L100.9950, L504.2610 ####[facility] [address] [place], [address] WBC (Bld) [#/Vol] 4.3 10*3/uL Low 4.4-11.0 [facility] Comment on above: Performed By: #### L 500.4050, L503.6550, L100.0100, L503.6030, L100.9950, L504.2610 ####[facility] [address] [place], [address] Comprehensive Metabolic Prof ilon 02-21-2025 Albumin [Mass/Vol] 4.3 g/dL Normal 3.4-4.8 [facility] Comment on above: Performed By: #### L 500.4050, L503.6550, L100.0100, L503.6030, L100.9950, L504.2610 ####[facility] [address] [place], [address] Albumin/Globulin [Mass ratio] 1.5 {ratio} Normal 0.9-2.4 [facility] Comment on above: Performed By: #### L 500.4050, L503.6550, L100.0100, L503.6030, L100.9950, L504.2610 ####[facility] [address] [place], [address] ALK PHOS 103 U/L Normal 40-129 [facility] Comment on above: Performed By: #### L 500.4050, L503.6550, L100.0100, L503.6030, L100.9950, L504.2610 ####[facility] [address] [place], [address] ALT [Catalytic activity/Vol] 30 U/L Normal <=46 [facility] Comment on above: Performed By: #### L 500.4050, L503.6550, L100.0100, L503.6030, L100.9950, L504.2610 ####[facility] [address] [place], [address] AST [Catalytic activity/Vol] 21 U/L Normal <=37 [facility] Comment on above: Performed By: #### L 500.4050, L503.6550, L100.0100, L503.6030, L100.9950, L504.2610 ####[facility] [address] [place], [address] Bilirubin [Mass/Vol] 0.65 mg/dL Normal 0.00-1.30 [facility] Comment on above: Performed By: #### L 500.4050, L503.6550, L100.0100, L503.6030, L100.9950, L504.2610 ####[facility] [address] [place], [address] BUN/CRE 18.3 RATIO Normal 10-20 [facility] Comment on above: Performed By: #### L 500.4050, L503.6550, L100.0100, L503.6030, L100.9950, L504.2610 ####[facility] [address] [place], [address] Calcium [Mass/Vol] 9.4 mg/dL Normal 7.6-11.0 [facility] Comment on above: Performed By: #### L 500.4050, L503.6550, L100.0100, L503.6030, L100.9950, L504.2610 ####[facility] [address] [place], [address] Chloride [Moles/Vol] 110 mmol/L High 98-108 [facility] Comment on above: Performed By: #### L 500.4050, L503.6550, L100.0100, L503.6030, L100.9950, L504.2610 ####[facility] [address] [place], [address] CO2 [Moles/Vol] 19.3 mmol/L Low 21.0-32.0 [facility] Comment on above: Performed By: #### L 500.4050, L503.6550, L100.0100, L503.6030, L100.9950, L504.2610 ####[facility] [address] [place], [address] Creatinine [Mass/Vol] 2.35 mg/dL High 0.70-1.20 [facility] Comment on above: Performed By: #### L 500.4050, L503.6550, L100.0100, L503.6030, L100.9950, L504.2610 ####[facility] [address] [place], [address] ECRCL 19.27 ml/min Low 50-250 [facility] Comment on above: Performed By: #### L 500.4050, L503.6550, L100.0100, L503.6030, L100.9950, L504.2610 ####[facility] [address] [place], [address] GAP 12 Normal 5-15 [facility] Comment on above: Performed By: #### L 500.4050, L503.6550, L100.0100, L503.6030, L100.9950, L504.2610 ####[facility] [address] [place], [address] GFR/1.73 sq M.predicted among non-blacks MDRD (S/P/Bld) [Vol rate/Area] 26 mL/min/{1.73_m2} Low >60 [facility] Comment on above: Result Comment: mL/m in/1.73m2 CKD-EPI Creatinine Equation (2020) Performed By: #### L 500.4050, L503.6550, L100.0100, L503.6030, L100.9950, L504.2610 ####[facility] [address] [place], [address] Globulin (S) [Mass/Vol] 2.8 g/dL Normal 2.2-4.2 [facility] Comment on above: Performed By: #### L 500.4050, L503.6550, L100.0100, L503.6030, L100.9950, L504.2610 ####[facility] [address] [place], [address] Glucose [Mass/Vol] 117 mg/dL High 70-99 [facility] Comment on above: Performed By: #### L 500.4050, L503.6550, L100.0100, L503.6030, L100.9950, L504.2610 ####[facility] [address] [place], [address] Potassium [Moles/Vol] 3.4 mmol/L Normal 3.3-5.1 [facility] Comment on above: Performed By: #### L 500.4050, L503.6550, L100.0100, L503.6030, L100.9950, L504.2610 ####[facility] [address] [place], [address] Sodium [Moles/Vol] 142 mmol/L Normal 133-145 [facility] Comment on above: Performed By: #### L 500.4050, L503.6550, L100.0100, L503.6030, L100.9950, L504.2610 ####[facility] [address] [place], [address] T PROT 7.1 g/dL Normal 5.9-8.4 [facility] Comment on above: Performed By: #### L 500.4050, L503.6550, L100.0100, L503.6030, L100.9950, L504.2610 ####[facility] [address] [place], [address] Urea nitrogen [Mass/Vol] 43 mg/dL High 4-19 [facility] Comment on above: Performed By: #### L 500.4050, L503.6550, L100.0100, L503.6030, L100.9950, L504.2610 ####[facility] [address] [place], [place], [address] Ferritinon 02-21-2025 Ferritin [Mass/Vol] 825 ng/mL High 37-417 [facility] Comment on above: Performed By: #### L 500.4050, L503.6550, L100.0100, L503.6030, L100.9950, L504.2610 ####[facility] [address] [place], [address] Iron measurement (mass/mass) Ordered By: Felipe Trivedi on 02-21-2025 Iron (Unsp spec) [Mass/Mass] 67 ug/dL 65-175 [facility] Iron+Iron Binding Capacityon 02-21-2025 IRON SATURATION 31.8 Normal 9-55 [facility] Comment on above: Result Comment: AMENDED REPORT 02/21/25 1343 IRON SATURATION previously reported as: 32.0 % Performed By: #### L 500.4050, L503.6550, L100.0100, L503.6030, L100.9950, L504.2610 ####[facility] [address] [place], [place], [id number] TIBC 211 ug/dL Low 250-450 [facility] Comment on above: Performed By: #### L 500.4050, L503.6550, L100.0100, L503.6030, L100.9950, L504.2610 ####[facility] [address] [place], [address] LDHon 02-21-2025 LDH 203 U/L Normal 87-241 [facility] Comment on above: Order Comment: 1 Performed By: #### L 500.4050, L503.6550, L100.0100, L503.6030, L100.9950, L504.2610 ####[facility] [address] [place], [place], [id number] No Panel InformationOrdered By: Felipe Trivedi on 02-21-2025 Unsaturated Iron Binding Capacity 144 ug/dL Low 228-428 [facility] Oncology Visit Reporton -3 Oncology Visit Report Normal [facility] Retic Panelon 02-21-2025 IM RET FRACTION 13.50 Normal 3.00-15.90 [facility] Comment on above: Performed By: #### L 500.4050, L503.6550, L100.0100, L503.6030, L100.9950, L504.2610 ####[facility] [address] [place], [place], [id number] RET-HE 35.4 pg High [facility] Comment on above: Performed By: #### L 500.4050, L503.6550, L100.0100, L503.6030, L100.9950, L504.2610 ####[facility] [address] [place], [address] Retic Count 1.68 High 0.5-1.5 [facility] Comment on above: Performed By: #### L 500.4050, L503.6550, L100.0100, L503.6030, L100.9950, L504.2610 ####[facility] [address] [place], [place], [id number] Reticulocyte hemoglobin equi valent (RET-He) measurementOrdered By: Felipe Trivedi on 02-21-2025 Hemoglobin (Reticulocytes) [Entitic mass] 35.4 pg High -35 [facility] Reticulocytes Auto (Bld) [#/ Vol]Ordered By: Felipe Trivedi on 02-21-2025 Reticulocytes/100 RBC (Bld) 1.68 % High 0.5-1.5 [facility] Serum or plasma ferritin kate surement (mass/volume)Ordered By: Felipe Trivedi on 02-21-2025 Ferritin [Mass/Vol] 825 ng/mL High 37-417 [facility] Serum or plasma iron saturat ion measurement (mass fraction)Ordered By: Felipe Trivedi on 02-21-2025 Iron saturation [Mass fraction] 31.8 % 9-55 [facility] Comment on above: Previous reported re sult: 32.0 %Edited by: ELIEL on 02/21/25:1343 AMENDED REPORT 02/21/25 1343 IRON SATURATION previously reported as: 32.0 % CBC W/Diff, Automatedon 04- Absolute Lymph 0.93 X10 3/uL Normal 0.83-4.51 [facility] Comment on above: Performed By: #### L 100.0100 ####[facility] [address] [place], [address] Absolute Neut 4.3 X10 3/uL Normal 2.0-7.7 [facility] Comment on above: Performed By: #### L 100.0100 ####[facility] [address] [place], [address] Basophils/100 WBC (Bld) 0.8 % Normal 0-1 [facility] Comment on above: Performed By: #### L 100.0100 ####[facility] [address] [place], [address] Eosinophils/100 WBC (Bld) 4.8 % Normal 0-5 [facility] Comment on above: Performed By: #### L 100.0100 ####[facility] [address] [place], [address] Erythrocyte distribution width (RBC) [Ratio] 14.6 % Normal 11.6-14.6 [facility] Comment on above: Performed By: #### L 100.0100 ####[facility] [address] [place], [address] Hematocrit (Bld) [Volume fraction] 33.8 % Low 40-54 [facility] Comment on above: Performed By: #### L 100.0100 ####[facility] [address] [place], [address] Hemoglobin (Bld) [Mass/Vol] 11.3 g/dL Low 13.0-16.5 [facility] Comment on above: Performed By: #### L 100.0100 ####[facility] [address] [place], [address] IG% 0.500 Normal 0.0-0.9 [facility] Comment on above: Result Comment: IG% - Immature Granulocytes (promyelocytes, myelocytes andmetamyelocytes) > 1% indicates that a LEFT SHIFT is Present. Performed By: #### L 100.0100 ####[facility] [address] [place], [address] Lymphocytes/100 WBC (Bld) 15.4 % Low 19-41 [facility] Comment on above: Performed By: #### L 100.0100 ####[facility] [address] [place], [address] MCH (RBC) [Entitic mass] 33.8 pg High 27.0-32.0 [facility] Comment on above: Performed By: #### L 100.0100 ####[facility] [address] [place], [address] MCHC (RBC) [Mass/Vol] 33.4 g/dL Normal 32-36 [facility] Comment on above: Performed By: #### L 100.0100 ####[facility] [address] [place], [address] MCV (RBC) [Entitic vol] 101.2 fL High 80-94 [facility] Comment on above: Performed By: #### L 100.0100 ####[facility] [address] [place], [address] Monocytes/100 WBC (Bld) 7.0 % Normal 0-10 [facility] Comment on above: Performed By: #### L 100.0100 ####[facility] [address] [place], [address] Neutrophils/100 WBC (Bld) 71.5 % High 47-70 [facility] Comment on above: Performed By: #### L 100.0100 ####[facility] [address] [place], [address] Nucleated RBC (Bld) [#/Vol] 0 10*3/uL Normal 0-5 [facility] Comment on above: Performed By: #### L 100.0100 ####[facility] [address] [place], [address] Platelet mean volume (Bld) [Entitic vol] 9.7 fL Normal 6.2-12.0 [facility] Comment on above: Performed By: #### L 100.0100 ####[facility] [address] [place], [address] Platelets (Bld) [#/Vol] 130 10*3/uL Low 150-450 [facility] Comment on above: Performed By: #### L 100.0100 ####[facility] [address] [place], [address] RBC (Bld) [#/Vol] 3.34 10*6/uL Low 4.6-6.2 [facility] Comment on above: Performed By: #### L 100.0100 ####[facility] [address] [place], [address] RDW SD 54.0 fl High 35.1-43.9 [facility] Comment on above: Performed By: #### L 100.0100 ####[facility] [address] [place], [address] WBC (Bld) [#/Vol] 6.0 10*3/uL Normal 4.4-11.0 [facility] Comment on above: Performed By: #### L 100.0100 ####[facility] [address] [place], [address] Oncology Visit Reporton 040 Oncology Visit Report Normal [facility] Anion gap in Serum or Plasma Ordered By: Stefany Norwood on 01-15-2025 Anion gap [Moles/Vol] 14 mmol/L 5- [facility] BUN/creatinine ratioOrdered By: Stefany Norwood on 01-15-2025 Urea nitrogen/Creatinine [Mass ratio] 27.7 mg/mg High 10- [facility] CBC-Complete Blood Cnt No Di ffon 01-15-2025 Erythrocyte distribution width (RBC) [Ratio] 14.5 % Normal 11.6-14.6 [facility] Comment on above: Performed By: #### L 506.1001, L500.3600, L509.1000, L501.0900, L100.0500 ####[facility] [address] [place], [address] Hematocrit (Bld) [Volume fraction] 35.9 % Low 40-54 [facility] Comment on above: Performed By: #### L 506.1001, L500.3600, L509.1000, L501.0900, L100.0500 ####[facility] [address] [place], [address] Hemoglobin (Bld) [Mass/Vol] 11.7 g/dL Low 13.0-16.5 [facility] Comment on above: Performed By: #### L 506.1001, L500.3600, L509.1000, L501.0900, L100.0500 ####[facility] [address] [place], [address] MCH (RBC) [Entitic mass] 33.9 pg High 27.0-32.0 [facility] Comment on above: Performed By: #### L 506.1001, L500.3600, L509.1000, L501.0900, L100.0500 ####[facility] [address] [place], [address] MCHC (RBC) [Mass/Vol] 32.6 g/dL Normal 32-36 [facility] Comment on above: Performed By: #### L 506.1001, L500.3600, L509.1000, L501.0900, L100.0500 ####[facility] [address] [place], [address] MCV (RBC) [Entitic vol] 104.1 fL High 80-94 [facility] Comment on above: Performed By: #### L 506.1001, L500.3600, L509.1000, L501.0900, L100.0500 ####[facility] [address] [place], [address] Platelet mean volume (Bld) [Entitic vol] 10.7 fL Normal 6.2-12.0 [facility] Comment on above: Performed By: #### L 506.1001, L500.3600, L509.1000, L501.0900, L100.0500 ####[facility] [address] [place], [address] Platelets (Bld) [#/Vol] 135 10*3/uL Low 150-450 [facility] Comment on above: Performed By: #### L 506.1001, L500.3600, L509.1000, L501.0900, L100.0500 ####[facility] [address] [place], [address] RBC (Bld) [#/Vol] 3.45 10*6/uL Low 4.6-6.2 [facility] Comment on above: Performed By: #### L 506.1001, L500.3600, L509.1000, L501.0900, L100.0500 ####[facility] [address] [place], [address] RDW SD 55.2 fl High 35.1-43.9 [facility] Comment on above: Performed By: #### L 506.1001, L500.3600, L509.1000, L501.0900, L100.0500 ####[facility] [address] [place], [address] WBC (Bld) [#/Vol] 6.7 10*3/uL Normal 4.4-11.0 [facility] Comment on above: Performed By: #### L 506.1001, L500.3600, L509.1000, L501.0900, L100.0500 ####[facility] [address] [place], [address] Carbon dioxide, total [Moles /volume] in Central venous bloodOrdered By: Stefany Norwood on 01-15-2025 CO2 [Moles/Vol] 15.4 mmol/L Low 21.0-32.0 [facility] Chloride assayOrdered By: Alejandro Norwood on 01-15-2025 Chloride [Moles/Vol] 111 mmol/L High 98-108 [facility] Creatinine Unsp time (U) [Ma ss/Vol]Ordered By: Stefany Norwood on 01-15-2025 Creatinine (U) [Mass/Vol] 70.70 mg/dL 39.00-259. 00 [facility] Erythrocyte distribution wid th ratioOrdered By: Stefany Norwood on 01-15-2025 Erythrocyte distribution width (RBC) [Ratio] 14.5 % 11.6-14.6 [facility] Erythrocyte distribution wid th standard deviationOrdered By: Stefany Norwood on 01-15-2025 Erythrocyte distribution width (RBC) [Entitic vol] 55.2 fL High 35.1-43.9 [facility] Erythrocyte distribution width (RBC) [Ratio] 55.2 fl High 35.1-43.9 [facility] GFR/1.73 sq M.predicted deepti g non-blacks MDRD (S/P/Bld) [Vol rate/Area]Ordered By: Stefany Norwood on 01-15-2025 Estimated GFR (MDRD) Non-Af Amer 32 Low >60 [facility] Comment on above: mL/min/1.73m2 CKD-EP I Creatinine Equation (2020) Glomerular filtration rate ( GFR) estimation/1.73 sq m using serum, plasma, or whole bOrdered By: Stefany Norwood on 01-15-2025 GFR/1.73 sq M.predicted among non-blacks MDRD (S/P/Bld) [Vol rate/Area] 32 mL/min/{1.73_m2} Low >60 [facility] Comment on above: mL/min/1.73m2 CKD-EP I Creatinine Equation (2020) Hematocrit Auto (Bld) [Volum e fraction]Ordered By: Stefany Norwood on 01-15-2025 Hematocrit (Bld) [Volume fraction] 35.9 % Low 40-54 [facility] Hemoglobin measurementOrdere d By: Stefany Norwood on 01-15-2025 Hemoglobin (Bld) [Mass/Vol] 11.7 g/dL Low 13.0-16.5 [facility] L506.1001on 01-15-2025 Vitamin D 25-OH 47.1 ng/mL Normal 30-100 [facility] Comment on above: Result Comment: Chetna min D StatusDeficiency: <20 ng/mL (50nmol/L)Insufficiency: 20-30 ng/mL (50-75 nmol/L)Sufficiency: 30-100 ng/mL (75-250 nmol/L)Toxicity: >100 ng/mL (>250 nmol/L) Performed By: #### L 506.1001, L500.3600, L509.1000, L501.0900, L100.0500 ####[facility] [address] [place], [place], [id number] MCV (mean corpuscular volume ) determinationOrdered By: Stefany Norwood on 01-15-2025 MCV (RBC) [Entitic vol] 104.1 fL High 80-94 [facility] Mean corpuscular hemoglobin (MCH) determinationOrdered By: Stefany Norwood on 01-15-2025 MCH (RBC) [Entitic mass] 33.9 pg High 27.0-32.0 [facility] Mean corpuscular hemoglobin concentration (MCHC) determinationOrdered By: Stefany Norwood on 01-15-2025 MCHC (RBC) [Mass/Vol] 32.6 g/dL 32-36 [facility] Mean platelet volume determi nationOrdered By: Stefany Norwood on 01-15-2025 Platelet mean volume (Bld) [Entitic vol] 10.7 fL 6.2-12.0 [facility] PTH intactOrdered By: Carine Norwood on 01-15-2025 Parathyroid Hormone (Intact) 59 pg/mL [facility] PTHINon 01-15-2025 PTH 59 pg/mL Normal [facility] Comment on above: Performed By: #### L 506.1001, L500.3600, L509.1000, L501.0900, L100.0500 ####[facility] [address] [place], [address] Platelet countOrdered By: Alejandro Norwood on 01-15-2025 Platelets (Bld) [#/Vol] 135 10*3/uL Low 150-450 [facility] Potassium (Unsp spec) [Mass/ Vol]Ordered By: Stefany Norwood on 01-15-2025 Potassium [Moles/Vol] 3.7 mmol/L 3.3-5.1 [facility] Potassium measurement (mass/ volume)Ordered By: Stefany Norwood on 01-15-2025 Potassium (Unsp spec) [Mass/Vol] 3.7 mmol/L 3.3-5.1 [facility] Protein+Creatinine Ratio,Uri neon 01-15-2025 PROT:CRE RATIO 249 mg/g CRE High 0-200 [facility] Comment on above: Performed By: #### L 506.1001, L500.3600, L509.1000, L501.0900, L100.0500 ####[facility] [address] [place], [address] Protein (U) [Mass/Vol] 17.6 mg/dL High 0.0-12.0 [facility] Comment on above: Performed By: #### L 506.1001, L500.3600, L509.1000, L501.0900, L100.0500 ####[facility] [address] [place], [address] Protein/Creatinine (U) [Mass ratio]Ordered By: Stefany Norwood on 01-15-2025 Urine Protein/Creatinine Ratio 249 mg/g CRE High 0-200 [facility] RBC Auto (Bld) [#/Vol]Ordere d By: Stefany Norwood on 01-15-2025 RBC (Bld) [#/Vol] 3.45 10*6/uL Low 4.6-6.2 [facility] Random urine creatinine viky urement (mass/volume)Ordered By: Stefany Norwood on 01-15-2025 Creatinine Unsp time (U) [Mass/Vol] 70.70 mg/dL 39.00-259. 00 [facility] Renal Profileon 01-15-2025 Albumin [Mass/Vol] 4.4 g/dL Normal 3.4-4.8 [facility] Comment on above: Performed By: #### L 506.1001, L500.3600, L509.1000, L501.0900, L100.0500 ####[facility] [address] [place], [address] BUN/CRE 27.7 RATIO High 10-20 [facility] Comment on above: Performed By: #### L 506.1001, L500.3600, L509.1000, L501.0900, L100.0500 ####[facility] [address] [place], [address] Calcium [Mass/Vol] 9.5 mg/dL Normal 7.6-11.0 [facility] Comment on above: Performed By: #### L 506.1001, L500.3600, L509.1000, L501.0900, L100.0500 ####[facility] [address] [place], [address] Chloride [Moles/Vol] 111 mmol/L High 98-108 [facility] Comment on above: Performed By: #### L 506.1001, L500.3600, L509.1000, L501.0900, L100.0500 ####[facility] [address] [place], [address] CO2 [Moles/Vol] 15.4 mmol/L Low 21.0-32.0 [facility] Comment on above: Performed By: #### L 506.1001, L500.3600, L509.1000, L501.0900, L100.0500 ####[facility] [address] [place], [address] Creatinine [Mass/Vol] 1.97 mg/dL High 0.70-1.20 [facility] Comment on above: Performed By: #### L 506.1001, L500.3600, L509.1000, L501.0900, L100.0500 ####[facility] [address] [place], [address] GAP 14 Normal 5-15 [facility] Comment on above: Performed By: #### L 506.1001, L500.3600, L509.1000, L501.0900, L100.0500 ####[facility] [address] [place], [address] GFR/1.73 sq M.predicted among non-blacks MDRD (S/P/Bld) [Vol rate/Area] 32 mL/min/{1.73_m2} Low >60 [facility] Comment on above: Result Comment: mL/m in/1.73m2 CKD-EPI Creatinine Equation (2020) Performed By: #### L 506.1001, L500.3600, L509.1000, L501.0900, L100.0500 ####[facility] [address] [place], [address] Glucose [Mass/Vol] 102 mg/dL High 70-99 [facility] Comment on above: Performed By: #### L 506.1001, L500.3600, L509.1000, L501.0900, L100.0500 ####[facility] [address] [place], [address] Phosphate [Mass/Vol] 2.2 mg/dL Low 2.7-4.5 [facility] Comment on above: Performed By: #### L 506.1001, L500.3600, L509.1000, L501.0900, L100.0500 ####[facility] [address] [place], [address] Potassium [Moles/Vol] 3.7 mmol/L Normal 3.3-5.1 [facility] Comment on above: Performed By: #### L 506.1001, L500.3600, L509.1000, L501.0900, L100.0500 ####[facility] [address] [place], [address] Sodium [Moles/Vol] 140 mmol/L Normal 133-145 [facility] Comment on above: Performed By: #### L 506.1001, L500.3600, L509.1000, L501.0900, L100.0500 ####[facility] [address] [place], [address] Urea nitrogen [Mass/Vol] 55 mg/dL High - [facility] Comment on above: Performed By: #### L 506.1001, L500.3600, L509.1000, L501.0900, L100.0500 ####[facility] [address] [place], [address] Serum creatinine measurement (mass/volume)Ordered By: Stefany Norwood on 01-15-2025 Creatinine [Mass/Vol] 1.97 mg/dL High 0.70-1.20 [facility] Serum glucose measurement (m ass/volume)Ordered By: Stefany Norwood on 01-15-2025 Glucose [Mass/Vol] 102 mg/dL High 70-99 [facility] Serum or plasma albumin viky urement (mass/volume)Ordered By: Stefany Norwood on 01-15-2025 Albumin [Mass/Vol] 4.4 g/dL 3.4-4.8 [facility] Serum or plasma calcium viky urement (mass/volume)Ordered By: Stefany Norwood on 01-15-2025 Calcium [Mass/Vol] 9.5 mg/dL 7.6-11.0 [facility] Serum or plasma urea nitroge n measurement (mass/volume)Ordered By: Stefany Norwood on 01-15-2025 Urea nitrogen [Mass/Vol] 55 mg/dL High 02-10 [facility] Serum phosphorus measurement Ordered By: Stefany Norwood on 01-15-2025 Phosphorus Level 2.2 mg/dL Low 2.7-4.5 [facility] Sodium levelOrdered By: Arturo Norwood on 01-15-2025 Sodium [Moles/Vol] 140 mmol/L 133-145 [facility] Urine protein measurement (m ass/volume)Ordered By: Stefany Norwood on 01-15-2025 Protein (U) [Mass/Vol] 17.6 mg/dL High 0.0-12.0 [facility] Urine protein/creatinine mas s ratioOrdered By: Stefany Norwood on 01-15-2025 Protein/Creatinine (U) [Mass ratio] 249 mg/g CRE High 0-200 [facility] Vitamin D, 25-hydroxyOrdered By: Stefany Norwood on 01-15-2025 Vitamin D 25-Hydroxy 47.1 ng/mL 30-100 [facility] Comment on above: Vitamin D StatusDefi ciency: <20 ng/mL (50nmol/L)Insufficiency: 20-30 ng/mL (50-75 nmol/L)Sufficiency: 30-100 ng/mL (75-250 nmol/L)Toxicity: >100 ng/mL (>250 nmol/L) White blood cell (WBC) count Ordered By: Stefany Norwood on 01-15-2025 WBC (Bld) [#/Vol] 6.7 10*3/uL 4.4-11.0 [facility] Cardiovascular stress test r eportOrdered By: Destin Harvey on 01-11-2025 Study report [facility] [address] [place] [address] MR#: [id number] Acct: [id number] Name: DARCY LUCAS Rep #: [id number] : 1935 [id number] From: Destin Harvey MD Primary Care: Dr. Cheli Grace MD Status: REG CLI Referring Dr: Ashlee Oleary Sex : M C Stress Test Report Pharmacologic myocardial perfusion stress test. 89-year-old man with a history of a cardiomyopathy and coronary artery disease Resting EKG demonstrates atrial fibrillation with ventricular paced rhythm at a rate of 81 bpm. Resting blood pressure is 152/70 mmHg. 0.4 mg of regadenoson was infused per usual protocol followed by rapid intravenous saline flush injection. Continuous EKG monitoring was performed. The maximum heart rate was93 bpm which was 52% of max impacted heart rate the maximum workload was 1 metabolic equivalent. At rest there were no ST or T wave changes noted to suggest ischemia and at peak infusion nonspecific ST changes were noted which did not meet the criteria for ischemia. No clinical angina is noted. The final bloodpressure was 140/89 mmHg. Myocardial perfusion protocol. 11.9 mCi of technetium 99m sestamibi was injected at rest. 0.4 mg of regadenoson was infused per usual protocol. At peak infusion 34.4 mCi of technetium 99m sestamibi was injected stress images were obtained stress and rest images were reconstructed and compared in the short axis vertical long and horizontal long axis. Gated images were also obtained. Perfusion SPECT analysis: Review of the stress images demonstrate normal uptake of tracer noted in all areas of the myocardium. The ventricle was noted to be dilated. The resting images similar demonstrated normal uptake of tracer noted in all areas of the myocardium. No areas of reversibility are noted to suggest ischemia and no previous infarct is noted. Gated SPECT analysis: The gated ejection fraction is 29%. Conclusion: Normal pharmacologic myocardial perfusion stress test. Reduced ejection fraction. 01/11/251626 Date _ Destin Harvey MD CC: Dr. 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: [place] Signed [facility] Work Phone: Stress Reporton 01-11-2025 Stress Report Normal [facility] Absolute neutrophil countOrd ered By: Yolanda Bansal on 01-10-2025 Neutrophils (Bld) [#/Vol] 4.2 10*3/uL 2.0-7.7 [facility] Anion gap in Serum or Plasma Ordered By: Yolanda Bansal on 01-10-2025 Anion gap [Moles/Vol] 14 mmol/L 5-15 [facility] BUN/creatinine ratioOrdered By: Yolanda Bansal on 01-10-2025 Urea nitrogen/Creatinine [Mass ratio] 28.4 mg/mg High 08-13 [facility] Basic Metabolic Profile (BMP )on 01-10-2025 BUN/CRE 28.4 RATIO High 08-13 [facility] Comment on above: Performed By: #### L 100.0100, L500.2500 ####[facility] [address] [place], [address] Calcium [Mass/Vol] 9.6 mg/dL Normal 7.6-11.0 [facility] Comment on above: Performed By: #### L 100.0100, L500.2500 ####[facility] [address] [place], [address] Chloride [Moles/Vol] 107 mmol/L Normal 98-108 [facility] Comment on above: Performed By: #### L 100.0100, L500.2500 ####[facility] [address] [place], [address] CO2 [Moles/Vol] 17.1 mmol/L Low 21.0-32.0 [facility] Comment on above: Performed By: #### L 100.0100, L500.2500 ####[facility] [address] [place], [address] Creatinine [Mass/Vol] 2.46 mg/dL High 0.70-1.20 [facility] Comment on above: Performed By: #### L 100.0100, L500.2500 ####[facility] [address] [place], [address] ECRCL 18.54 ml/min Low 50-250 [facility] Comment on above: Performed By: #### L 100.0100, L500.2500 ####[facility] [address] [place], [address] GAP 14 Normal 5-15 [facility] Comment on above: Performed By: #### L 100.0100, L500.2500 ####[facility] [address] [place], [address] GFR/1.73 sq M.predicted among non-blacks MDRD (S/P/Bld) [Vol rate/Area] 25 mL/min/{1.73_m2} Low >60 [facility] Comment on above: Result Comment: mL/m in/1.73m2 CKD-EPI Creatinine Equation (2020) Performed By: #### L 100.0100, L500.2500 ####[facility] [address] [place], [address] Glucose [Mass/Vol] 98 mg/dL Normal 70-99 [facility] Comment on above: Performed By: #### L 100.0100, L500.2500 ####[facility] [address] [place], [address] Potassium [Moles/Vol] 4.3 mmol/L Normal 3.3-5.1 [facility] Comment on above: Performed By: #### L 100.0100, L500.2500 ####[facility] [address] [place], [address] Sodium [Moles/Vol] 138 mmol/L Normal 133-145 [facility] Comment on above: Performed By: #### L 100.0100, L500.2500 ####[facility] [address] [place], [address] Urea nitrogen [Mass/Vol] 70 mg/dL High - [facility] Comment on above: Performed By: #### L 100.0100, L500.2500 ####[facility] [address] [place], [address] Basophil percentageOrdered B y: Yolanda Bansal on 01-10-2025 Basophils/100 WBC (Bld) 0.5 % 0-1 [facility] CBC W/Diff, Automatedon 12-23 Absolute Lymph 0.84 X10 3/uL Normal 0.83-4.51 [facility] Comment on above: Performed By: #### L 100.0100, L500.2500 ####[facility] [address] [place], [address] Absolute Neut 4.2 X10 3/uL Normal 2.0-7.7 [facility] Comment on above: Performed By: #### L 100.0100, L500.2500 ####[facility] [address] [place], [address] Basophils/100 WBC (Bld) 0.5 % Normal 0-1 [facility] Comment on above: Performed By: #### L 100.0100, L500.2500 ####[facility] [address] [place], [address] Eosinophils/100 WBC (Bld) 5.8 % High 0-5 [facility] Comment on above: Performed By: #### L 100.0100, L500.2500 ####[facility] [address] [place], [address] Erythrocyte distribution width (RBC) [Ratio] 14.5 % Normal 11.6-14.6 [facility] Comment on above: Performed By: #### L 100.0100, L500.2500 ####[facility] [address] [place], [address] Hematocrit (Bld) [Volume fraction] 35.2 % Low 40-54 [facility] Comment on above: Performed By: #### L 100.0100, L500.2500 ####[facility] [address] [place], [address] Hemoglobin (Bld) [Mass/Vol] 11.4 g/dL Low 13.0-16.5 [facility] Comment on above: Performed By: #### L 100.0100, L500.2500 ####[facility] [address] [place], [address] IG% 0.200 Normal 0.0-0.9 [facility] Comment on above: Result Comment: IG% - Immature Granulocytes (promyelocytes, myelocytes andmetamyelocytes) > 1% indicates that a LEFT SHIFT is Present. Performed By: #### L 100.0100, L500.2500 ####[facility] [address] [place], [address] Lymphocytes/100 WBC (Bld) 14.7 % Low 19-41 [facility] Comment on above: Performed By: #### L 100.0100, L500.2500 ####[facility] [address] [place], [address] MCH (RBC) [Entitic mass] 33.8 pg High 27.0-32.0 [facility] Comment on above: Performed By: #### L 100.0100, L500.2500 ####[facility] [address] [place], [address] MCHC (RBC) [Mass/Vol] 32.4 g/dL Normal 32-36 [facility] Comment on above: Performed By: #### L 100.0100, L500.2500 ####[facility] [address] [place], [address] MCV (RBC) [Entitic vol] 104.5 fL High 80-94 [facility] Comment on above: Performed By: #### L 100.0100, L500.2500 ####[facility] [address] [place], [address] Monocytes/100 WBC (Bld) 6.3 % Normal 0-10 [facility] Comment on above: Performed By: #### L 100.0100, L500.2500 ####[facility] [address] [place], [address] Neutrophils/100 WBC (Bld) 72.5 % High 47-70 [facility] Comment on above: Performed By: #### L 100.0100, L500.2500 ####[facility] [address] [place], [address] Nucleated RBC (Bld) [#/Vol] 0 10*3/uL Normal 0-5 [facility] Comment on above: Performed By: #### L 100.0100, L500.2500 ####[facility] [address] [place], [address] Platelet mean volume (Bld) [Entitic vol] 10.4 fL Normal 6.2-12.0 [facility] Comment on above: Performed By: #### L 100.0100, L500.2500 ####[facility] [address] [place], [address] Platelets (Bld) [#/Vol] 135 10*3/uL Low 150-450 [facility] Comment on above: Performed By: #### L 100.0100, L500.2500 ####[facility] [address] [place], [address] RBC (Bld) [#/Vol] 3.37 10*6/uL Low 4.6-6.2 [facility] Comment on above: Performed By: #### L 100.0100, L500.2500 ####[facility] [address] [place], [address] RDW SD 55.6 fl High 35.1-43.9 [facility] Comment on above: Performed By: #### L 100.0100, L500.2500 ####[facility] [address] [place], [address] WBC (Bld) [#/Vol] 5.7 10*3/uL Normal 4.4-11.0 [facility] Comment on above: Performed By: #### L 100.0100, L500.2500 ####[facility] [address] [place], [address] Carbon dioxide, total [Moles /volume] in Central venous bloodOrdered By: Yolanda Bansal on 01-10-2025 CO2 [Moles/Vol] 17.1 mmol/L Low 21.0-32.0 [facility] Chloride assayOrdered By: Clinton Bansal on 01-10-2025 Chloride [Moles/Vol] 107 mmol/L 98-108 [facility] Eosinophil percentageOrdered By: Yolanda Bansal on 01-10-2025 Eosinophils/100 WBC (Bld) 5.8 % High 0-5 [facility] Erythrocyte distribution wid th ratioOrdered By: Yolanda Bansal on 01-10-2025 Erythrocyte distribution width (RBC) [Ratio] 14.5 % 11.6-14.6 [facility] Erythrocyte distribution wid th standard deviationOrdered By: Yolanda Bansal on 01-10-2025 Erythrocyte distribution width (RBC) [Entitic vol] 55.6 fL High 35.1-43.9 [facility] Estimation of creatinine janet aranceOrdered By: Yolanda Bansal on 01-10-2025 Estimated Creatinine Clearance Calc 18.54 ml/min Low 50-250 [facility] GFR/1.73 sq M.predicted deepti g non-blacks MDRD (S/P/Bld) [Vol rate/Area]Ordered By: Yolanda Bansal on 01-10-2025 Estimated GFR (MDRD) Non-Af Amer 25 Low >60 [facility] Comment on above: mL/min/1.73m2 CKD-EP I Creatinine Equation (2020) Hematocrit Auto (Bld) [Volum e fraction]Ordered By: Yolanda Bansal 01-10-2025 Hematocrit (Bld) [Volume fraction] 35.2 % Low 40-54 [facility] Hemoglobin measurementOrdere d By: Yolanda Bansal on 01-10-2025 Hemoglobin (Bld) [Mass/Vol] 11.4 g/dL Low 13.0-16.5 [facility] Immature granulocytes/100 WB C Auto (Bld)Ordered By: Yolanda Bansal on 01-10-2025 Immature granulocytes/100 WBC (Bld) 0.200 % 0.0-0.9 [facility] Comment on above: IG% - Immature Granu locytes (promyelocytes, myelocytes and metamyelocytes) > 1% indicates that a LEFT SHIFT is Present. Lymphocytes Auto (Unsp spec) [#/Vol]Ordered By: Yolanda Bansal on 01-10-2025 Lymphocytes (Bld) [#/Vol] 0.84 10*3/uL 0.83-4.51 [facility] Lymphocytes/100 WBC Auto (Un sp spec)Ordered By: Yolanda ChaRolf on 01-10-2025 Lymphocytes/100 WBC (Bld) 14.7 % Low 19-41 [facility] MCV (mean corpuscular volume ) determinationOrdered By: Yolanda Rolf on 01-10-2025 MCV (RBC) [Entitic vol] 104.5 fL High 80-94 [facility] Mean corpuscular hemoglobin (MCH) determinationOrdered By: Yolanda Rolf on 01-10-2025 MCH (RBC) [Entitic mass] 33.8 pg High 27.0-32.0 [facility] Mean corpuscular hemoglobin concentration (MCHC) determinationOrdered By: Yolanda Rolf on 01-10-2025 MCHC (RBC) [Mass/Vol] 32.4 g/dL 32-36 [facility] Mean platelet volume determi nationOrdered By: Yolanda Rolf on 01-10-2025 Platelet mean volume (Bld) [Entitic vol] 10.4 fL 6.2-12.0 [facility] Monocyte percentageOrdered B y: Yolanda Rolf on 01-10-2025 Monocytes/100 WBC (Bld) 6.3 % 0-10 [facility] Neutrophil percentageOrdered By: Yolanda Rolf on 01-10-2025 Neutrophils/100 WBC (Bld) 72.5 % High 47-70 [facility] Nucleated red blood cell per centageOrdered By: Yolanda Rolf on 01-10-2025 Nucleated RBC/100 WBC (Bld) [Ratio] 0 % 0-5 [facility] Platelet countOrdered By: Ty ra Rolf on 01-10-2025 Platelets (Bld) [#/Vol] 135 10*3/uL Low 150-450 [facility] Potassium (Unsp spec) [Mass/ Vol]Ordered By: Yolandajl ChaRolf on 01-10-2025 Potassium [Moles/Vol] 4.3 mmol/L 3.3-5.1 [facility] RBC Auto (Bld) [#/Vol]Ordere d By: Yolanda Rolf on 01-10-2025 RBC (Bld) [#/Vol] 3.37 10*6/uL Low 4.6-6.2 [facility] Serum creatinine measurement (mass/volume)Ordered By: Yolanda Bansal on 01-10-2025 Creatinine [Mass/Vol] 2.46 mg/dL High 0.70-1.20 [facility] Serum glucose measurement (m ass/volume)Ordered By: Yolanda Bansal on 01-10-2025 Glucose [Mass/Vol] 98 mg/dL 70-99 [facility] Serum or plasma calcium viky urement (mass/volume)Ordered By: Yolanda Bansal on 01-10-2025 Calcium [Mass/Vol] 9.6 mg/dL 7.6-11.0 [facility] Serum or plasma urea nitroge n measurement (mass/volume)Ordered By: Yolanda Bansal on 01-10-2025 Urea nitrogen [Mass/Vol] 70 mg/dL High 4-19 [facility] Sodium levelOrdered By: Yolanda Bansal on 01-10-2025 Sodium [Moles/Vol] 138 mmol/L 133-145 [facility] White blood cell (WBC) count Ordered By: Yolanda Bansal on 01-10-2025 WBC (Bld) [#/Vol] 5.7 10*3/uL 4.4-11.0 [facility] Cardiology Visit Reporton Cardiology Visit Report Normal [facility] Bilirubin, totalOrdered By: Yolanda Bansal on 12-27-2024 Bilirubin [Mass/Vol] 0.68 mg/dL 0.00-1.30 [facility] CBC W/Diff, Automatedon Absolute Lymph 0.89 X10 3/uL Normal 0.83-4.51 [facility] Comment on above: Performed By: #### L 100.0100 ####[facility] [address] [place], [place], [id number] Absolute Neut 3.1 X10 3/uL Normal 2.0-7.7 [facility] Comment on above: Performed By: #### L 100.0100 ####[facility] [address] [place], [address] Basophils/100 WBC (Bld) 0.9 % Normal 0-1 [facility] Comment on above: Performed By: #### L 100.0100 ####[facility] [address] [place], [address] Eosinophils/100 WBC (Bld) 7.1 % High 0-5 [facility] Comment on above: Performed By: #### L 100.0100 ####[facility] [address] [place], [address] Erythrocyte distribution width (RBC) [Ratio] 15.6 % High 11.6-14.6 [facility] Comment on above: Performed By: #### L 100.0100 ####[facility] [address] [place], [address] Hematocrit (Bld) [Volume fraction] 34.3 % Low 40-54 [facility] Comment on above: Performed By: #### L 100.0100 ####[facility] [address] [place], [address] Hemoglobin (Bld) [Mass/Vol] 11.3 g/dL Low 13.0-16.5 [facility] Comment on above: Performed By: #### L 100.0100 ####[facility] [address] [place], [address] IG% 0.200 Normal 0.0-0.9 [facility] Comment on above: Result Comment: IG% - Immature Granulocytes (promyelocytes, myelocytes andmetamyelocytes) > 1% indicates that a LEFT SHIFT is Present. Performed By: #### L 100.0100 ####[facility] [address] [place], [address] Lymphocytes/100 WBC (Bld) 19.1 % Normal 19-41 [facility] Comment on above: Performed By: #### L 100.0100 ####[facility] [address] [place], [address] MCH (RBC) [Entitic mass] 34.3 pg High 27.0-32.0 [facility] Comment on above: Performed By: #### L 100.0100 ####[facility] [address] [place], [address] MCHC (RBC) [Mass/Vol] 32.9 g/dL Normal 32-36 [facility] Comment on above: Performed By: #### L 100.0100 ####[facility] [address] [place], [address] MCV (RBC) [Entitic vol] 104.3 fL High 80-94 [facility] Comment on above: Performed By: #### L 100.0100 ####[facility] [address] [place], [address] Monocytes/100 WBC (Bld) 6.2 % Normal 0-10 [facility] Comment on above: Performed By: #### L 100.0100 ####[facility] [address] [place], [address] Neutrophils/100 WBC (Bld) 66.5 % Normal 47-70 [facility] Comment on above: Performed By: #### L 100.0100 ####[facility] [address] [place], [address] Nucleated RBC (Bld) [#/Vol] 0 10*3/uL Normal 0-5 [facility] Comment on above: Performed By: #### L 100.0100 ####[facility] [address] [place], [address] Platelet mean volume (Bld) [Entitic vol] 10.5 fL Normal 6.2-12.0 [facility] Comment on above: Performed By: #### L 100.0100 ####[facility] [address] [place], [address] Platelets (Bld) [#/Vol] 135 10*3/uL Low 150-450 [facility] Comment on above: Performed By: #### L 100.0100 ####[facility] [address] [place], [address] RBC (Bld) [#/Vol] 3.29 10*6/uL Low 4.6-6.2 [facility] Comment on above: Performed By: #### L 100.0100 ####[facility] [address] [place], [address] RDW SD 60.8 fl High 35.1-43.9 [facility] Comment on above: Performed By: #### L 100.0100 ####[facility] [address] [place], [address] WBC (Bld) [#/Vol] 4.7 10*3/uL Normal 4.4-11.0 [facility] Comment on above: Performed By: #### L 100.0100 ####[facility] [address] [place], [address] Comprehensive Metabolic Prof ilon 12-27-2024 Albumin [Mass/Vol] 4.3 g/dL Normal 3.4-4.8 [facility] Comment on above: Performed By: #### L 500.4050 ####[facility] [address] [place], [address] Albumin/Globulin [Mass ratio] 1.3 {ratio} Normal 0.9-2.4 [facility] Comment on above: Performed By: #### L 500.4050 ####[facility] [address] [place], [address] ALK PHOS 124 U/L Normal 40-129 [facility] Comment on above: Performed By: #### L 500.4050 ####[facility] [address] [place], [address] ALT [Catalytic activity/Vol] 31 U/L Normal <=46 [facility] Comment on above: Performed By: #### L 500.4050 ####[facility] [address] [place], [address] AST [Catalytic activity/Vol] 25 U/L Normal <=37 [facility] Comment on above: Performed By: #### L 500.4050 ####[facility] [address] [place], [address] Bilirubin [Mass/Vol] 0.68 mg/dL Normal 0.00-1.30 [facility] Comment on above: Performed By: #### L 500.4050 ####[facility] [address] [place], [address] BUN/CRE 19.1 RATIO Normal 10-20 [facility] Comment on above: Performed By: #### L 500.4050 ####[facility] [address] [place], [address] Calcium [Mass/Vol] 9.4 mg/dL Normal 7.6-11.0 [facility] Comment on above: Performed By: #### L 500.4050 ####[facility] [address] [place], [address] Chloride [Moles/Vol] 110 mmol/L High 98-108 [facility] Comment on above: Performed By: #### L 500.4050 ####[facility] [address] [place], [address] CO2 [Moles/Vol] 19.4 mmol/L Low 21.0-32.0 [facility] Comment on above: Performed By: #### L 500.4050 ####[facility] [address] [place], [address] Creatinine [Mass/Vol] 1.83 mg/dL High 0.70-1.20 [facility] Comment on above: Performed By: #### L 500.4050 ####[facility] [address] [place], [address] ECRCL 27.13 ml/min Low 50-250 [facility] Comment on above: Performed By: #### L 500.4050 ####[facility] [address] [place], [address] GAP 14 Normal 5-15 [facility] Comment on above: Performed By: #### L 500.4050 ####[facility] [address] [place], [address] GFR/1.73 sq M.predicted among non-blacks MDRD (S/P/Bld) [Vol rate/Area] 35 mL/min/{1.73_m2} Low >60 [facility] Comment on above: Result Comment: mL/m in/1.73m2 CKD-EPI Creatinine Equation (2020) Performed By: #### L 500.4050 ####[facility] [address] [place], [address] Globulin (S) [Mass/Vol] 3.2 g/dL Normal 2.2-4.2 [facility] Comment on above: Performed By: #### L 500.4050 ####[facility] [address] [place], [address] Glucose [Mass/Vol] 88 mg/dL Normal 70-99 [facility] Comment on above: Performed By: #### L 500.4050 ####[facility] [address] [place], [address] Potassium [Moles/Vol] 3.4 mmol/L Normal 3.3-5.1 [facility] Comment on above: Performed By: #### L 500.4050 ####[facility] [address] [place], [place], [address] Sodium [Moles/Vol] 143 mmol/L Normal 133-145 [facility] Comment on above: Performed By: #### L 500.4050 ####[facility] [address] [place], [place], [address] T PROT 7.5 g/dL Normal 5.9-8.4 [facility] Comment on above: Performed By: #### L 500.4050 ####[facility] [address] [place], [place], [address] Urea nitrogen [Mass/Vol] 35 mg/dL High 4-19 [facility] Comment on above: Performed By: #### L 500.4050 ####[facility] [address] [place], [place], [address] Laboratory - Chemistry and C hemistry - challengeOrdered By: Yolanda Bansal on 12-27-2024 AST [Catalytic activity/Vol] 25 U/L <38 [facility] Oncology Visit Reporton Oncology Visit Report Normal [facility] Serum globulin measurementOr dered By: Yolanda Bansal on 12-27-2024 Globulin (S) [Mass/Vol] 3.2 g/dL 2.2-4.2 [facility] Serum or plasma alanine whitehead otransferase (ALT) measurementOrdered By: Yolanda Bansal on 12-27-2024 ALT [Catalytic activity/Vol] 31 U/L <47 [facility] Serum or plasma albumin viky urement (mass/volume)Ordered By: Yolanda Bansal on 12-27-2024 Albumin [Mass/Vol] 4.3 g/dL 3.4-4.8 [facility] Serum or plasma albumin/glob ulin mass ratioOrdered By: oYlanda Bansal on 12-27-2024 Albumin/Globulin [Mass ratio] 1.3 {ratio} 0.9-2.4 [facility] Serum or plasma alkaline rhona sphatase measurementOrdered By: Yolanda Bansal on 12-27-2024 ALP [Catalytic activity/Vol] 124 U/L 40-129 [facility] Total proteinOrdered By: Alonso Bansal on 12-27-2024 Protein [Mass/Vol] 7.5 g/dL 5.9-8.4 [facility] CBC W/Diff, Automatedon 02-2 Absolute Lymph 0.73 X10 3/uL Low 0.83-4.51 [facility] Comment on above: Performed By: #### L 100.0100 ####[facility] [address] [place], [address] Absolute Neut 3.7 X10 3/uL Normal 2.0-7.7 [facility] Comment on above: Performed By: #### L 100.0100 ####[facility] [address] [place], [address] Basophils/100 WBC (Bld) 1.0 % Normal 0-1 [facility] Comment on above: Performed By: #### L 100.0100 ####[facility] [address] [place], [address] Eosinophils/100 WBC (Bld) 4.9 % Normal 0-5 [facility] Comment on above: Performed By: #### L 100.0100 ####[facility] [address] [place], [address] Erythrocyte distribution width (RBC) [Ratio] 16.6 % High 11.6-14.6 [facility] Comment on above: Performed By: #### L 100.0100 ####[facility] [address] [place], [address] Hematocrit (Bld) [Volume fraction] 35.1 % Low 40-54 [facility] Comment on above: Performed By: #### L 100.0100 ####[facility] [address] [place], [address] Hemoglobin (Bld) [Mass/Vol] 11.4 g/dL Low 13.0-16.5 [facility] Comment on above: Performed By: #### L 100.0100 ####[facility] [address] [place], [address] IG% 0.400 Normal 0.0-0.9 [facility] Comment on above: Result Comment: IG% - Immature Granulocytes (promyelocytes, myelocytes andmetamyelocytes) > 1% indicates that a LEFT SHIFT is Present. Performed By: #### L 100.0100 ####[facility] [address] [place], [address] Lymphocytes/100 WBC (Bld) 14.3 % Low 19-41 [facility] Comment on above: Performed By: #### L 100.0100 ####[facility] [address] [place], [address] MCH (RBC) [Entitic mass] 34.4 pg High 27.0-32.0 [facility] Comment on above: Performed By: #### L 100.0100 ####[facility] [address] [place], [address] MCHC (RBC) [Mass/Vol] 32.5 g/dL Normal 32-36 [facility] Comment on above: Performed By: #### L 100.0100 ####[facility] [address] [place], [address] MCV (RBC) [Entitic vol] 106.0 fL High 80-94 [facility] Comment on above: Performed By: #### L 100.0100 ####[facility] [address] [place], [address] Monocytes/100 WBC (Bld) 8.0 % Normal 0-10 [facility] Comment on above: Performed By: #### L 100.0100 ####[facility] [address] [place], [address] Neutrophils/100 WBC (Bld) 71.4 % High 47-70 [facility] Comment on above: Performed By: #### L 100.0100 ####[facility] [address] [place], [address] Nucleated RBC (Bld) [#/Vol] 0 10*3/uL Normal 0-5 [facility] Comment on above: Performed By: #### L 100.0100 ####[facility] [address] [place], [address] Platelet mean volume (Bld) [Entitic vol] 9.6 fL Normal 6.2-12.0 [facility] Comment on above: Performed By: #### L 100.0100 ####[facility] [address] [place], [address] Platelets (Bld) [#/Vol] 184 10*3/uL Normal 150-450 [facility] Comment on above: Performed By: #### L 100.0100 ####[facility] [address] [place], [address] RBC (Bld) [#/Vol] 3.31 10*6/uL Low 4.6-6.2 [facility] Comment on above: Performed By: #### L 100.0100 ####[facility] [address] [place], [address] RDW SD 64.0 fl High 35.1-43.9 [facility] Comment on above: Performed By: #### L 100.0100 ####[facility] [address] [place], [address] WBC (Bld) [#/Vol] 5.1 10*3/uL Normal 4.4-11.0 [facility] Comment on above: Performed By: #### L 100.0100 ####[facility] [address] [place], [address] CBC W/Diff, Automatedon 02- Absolute Lymph 0.81 X10 3/uL Low 0.83-4.51 [facility] Comment on above: Performed By: #### L 100.0100 ####[facility] [address] [place], [address] Absolute Neut 3.6 X10 3/uL Normal 2.0-7.7 [facility] Comment on above: Performed By: #### L 100.0100 ####[facility] [address] [place], [address] Basophils/100 WBC (Bld) 0.8 % Normal 0-1 [facility] Comment on above: Performed By: #### L 100.0100 ####[facility] [address] [place], [address] Eosinophils/100 WBC (Bld) 4.3 % Normal 0-5 [facility] Comment on above: Performed By: #### L 100.0100 ####[facility] [address] [place], [address] Erythrocyte distribution width (RBC) [Ratio] 17.2 % High 11.6-14.6 [facility] Comment on above: Performed By: #### L 100.0100 ####[facility] [address] [place], [address] Hematocrit (Bld) [Volume fraction] 33.4 % Low 40-54 [facility] Comment on above: Performed By: #### L 100.0100 ####[facility] [address] [place], [address] Hemoglobin (Bld) [Mass/Vol] 10.4 g/dL Low 13.0-16.5 [facility] Comment on above: Performed By: #### L 100.0100 ####[facility] [address] [place], [address] IG% 0.400 Normal 0.0-0.9 [facility] Comment on above: Result Comment: IG% - Immature Granulocytes (promyelocytes, myelocytes andmetamyelocytes) > 1% indicates that a LEFT SHIFT is Present. Performed By: #### L 100.0100 ####[facility] [address] [place], [address] Lymphocytes/100 WBC (Bld) 15.9 % Low 19-41 [facility] Comment on above: Performed By: #### L 100.0100 ####[facility] [address] [place], [address] MCH (RBC) [Entitic mass] 32.7 pg High 27.0-32.0 [facility] Comment on above: Performed By: #### L 100.0100 ####[facility] [address] [place], [address] MCHC (RBC) [Mass/Vol] 31.1 g/dL Low 32-36 [facility] Comment on above: Performed By: #### L 100.0100 ####[facility] [address] [place], [address] MCV (RBC) [Entitic vol] 105.0 fL High 80-94 [facility] Comment on above: Performed By: #### L 100.0100 ####[facility] [address] [place], [address] Monocytes/100 WBC (Bld) 7.4 % Normal 0-10 [facility] Comment on above: Performed By: #### L 100.0100 ####[facility] [address] [place], [address] Neutrophils/100 WBC (Bld) 71.2 % High 47-70 [facility] Comment on above: Performed By: #### L 100.0100 ####[facility] [address] [place], [address] Nucleated RBC (Bld) [#/Vol] 0 10*3/uL Normal 0-5 [facility] Comment on above: Performed By: #### L 100.0100 ####[facility] [address] [place], [address] Platelet mean volume (Bld) [Entitic vol] 9.5 fL Normal 6.2-12.0 [facility] Comment on above: Performed By: #### L 100.0100 ####[facility] [address] [place], [address] Platelets (Bld) [#/Vol] 210 10*3/uL Normal 150-450 [facility] Comment on above: Performed By: #### L 100.0100 ####[facility] [address] [place], [address] RBC (Bld) [#/Vol] 3.18 10*6/uL Low 4.6-6.2 [facility] Comment on above: Performed By: #### L 100.0100 ####[facility] [address] [place], [address] RDW SD 63.5 fl High 35.1-43.9 [facility] Comment on above: Performed By: #### L 100.0100 ####[facility] [address] [place], [address] WBC (Bld) [#/Vol] 5.1 10*3/uL Normal 4.4-11.0 [facility] Comment on above: Performed By: #### L 100.0100 ####[facility] [address] [place], [address] CBC W/Diff, Automatedon 11-25 Absolute Lymph 0.76 X10 3/uL Low 0.83-4.51 [facility] Comment on above: Performed By: #### L 100.0100 ####[facility] [address] [place], [address] Absolute Neut 3.8 X10 3/uL Normal 2.0-7.7 [facility] Comment on above: Performed By: #### L 100.0100 ####[facility] [address] [place], [address] Basophils/100 WBC (Bld) 0.8 % Normal 0-1 [facility] Comment on above: Performed By: #### L 100.0100 ####[facility] [address] [place], [address] Eosinophils/100 WBC (Bld) 4.2 % Normal 0-5 [facility] Comment on above: Performed By: #### L 100.0100 ####[facility] [address] [place], [address] Erythrocyte distribution width (RBC) [Ratio] 15.7 % High 11.6-14.6 [facility] Comment on above: Performed By: #### L 100.0100 ####[facility] [address] [place], [address] Hematocrit (Bld) [Volume fraction] 29.5 % Low 40-54 [facility] Comment on above: Performed By: #### L 100.0100 ####[facility] [address] [place], [address] Hemoglobin (Bld) [Mass/Vol] 9.6 g/dL Low 13.0-16.5 [facility] Comment on above: Performed By: #### L 100.0100 ####[facility] [address] [place], [address] IG% 0.200 Normal 0.0-0.9 [facility] Comment on above: Result Comment: IG% - Immature Granulocytes (promyelocytes, myelocytes andmetamyelocytes) > 1% indicates that a LEFT SHIFT is Present. Performed By: #### L 100.0100 ####[facility] [address] [place], [address] Lymphocytes/100 WBC (Bld) 14.5 % Low 19-41 [facility] Comment on above: Performed By: #### L 100.0100 ####[facility] [address] [place], [address] MCH (RBC) [Entitic mass] 33.3 pg High 27.0-32.0 [facility] Comment on above: Performed By: #### L 100.0100 ####[facility] [address] [place], [address] MCHC (RBC) [Mass/Vol] 32.5 g/dL Normal 32-36 [facility] Comment on above: Performed By: #### L 100.0100 ####[facility] [address] [place], [address] MCV (RBC) [Entitic vol] 102.4 fL High 80-94 [facility] Comment on above: Performed By: #### L 100.0100 ####[facility] [address] [place], [address] Monocytes/100 WBC (Bld) 7.8 % Normal 0-10 [facility] Comment on above: Performed By: #### L 100.0100 ####[facility] [address] [place], [address] Neutrophils/100 WBC (Bld) 72.5 % High 47-70 [facility] Comment on above: Performed By: #### L 100.0100 ####[facility] [address] [place], [address] Nucleated RBC (Bld) [#/Vol] 0 10*3/uL Normal 0-5 [facility] Comment on above: Performed By: #### L 100.0100 ####[facility] [address] [place], [address] Platelet mean volume (Bld) [Entitic vol] 9.2 fL Normal 6.2-12.0 [facility] Comment on above: Performed By: #### L 100.0100 ####[facility] [address] [place], [address] Platelets (Bld) [#/Vol] 214 10*3/uL Normal 150-450 [facility] Comment on above: Performed By: #### L 100.0100 ####[facility] [address] [place], [address] RBC (Bld) [#/Vol] 2.88 10*6/uL Low 4.6-6.2 [facility] Comment on above: Performed By: #### L 100.0100 ####[facility] [address] [place], [address] RDW SD 56.8 fl High 35.1-43.9 [facility] Comment on above: Performed By: #### L 100.0100 ####[facility] [address] [place], [address] WBC (Bld) [#/Vol] 5.2 10*3/uL Normal 4.4-11.0 [facility] Comment on above: Performed By: #### L 100.0100 ####[facility] [address] [place], [address] CBC W/Diff, Automatedon 02-0 5-2024 Absolute Lymph 0.66 X10 3/uL Low 0.83-4.51 [facility] Comment on above: Performed By: #### L 501.5200, L500.4050, L100.0100, L501.2300, L503.6030, L504.2610, L503.6550 ####[facility] [address] [place], [address] Absolute Neut 3.8 X10 3/uL Normal 2.0-7.7 [facility] Comment on above: Performed By: #### L 501.5200, L500.4050, L100.0100, L501.2300, L503.6030, L504.2610, L503.6550 ####[facility] [address] [place], [address] Basophils/100 WBC (Bld) 0.6 % Normal 0-1 [facility] Comment on above: Performed By: #### L 501.5200, L500.4050, L100.0100, L501.2300, L503.6030, L504.2610, L503.6550 ####[facility] [address] [place], [address] Eosinophils/100 WBC (Bld) 3.7 % Normal 0-5 [facility] Comment on above: Performed By: #### L 501.5200, L500.4050, L100.0100, L501.2300, L503.6030, L504.2610, L503.6550 ####[facility] [address] [place], [address] Erythrocyte distribution width (RBC) [Ratio] 15.2 % High 11.6-14.6 [facility] Comment on above: Performed By: #### L 501.5200, L500.4050, L100.0100, L501.2300, L503.6030, L504.2610, L503.6550 ####[facility] [address] [place], [address] Hematocrit (Bld) [Volume fraction] 29.3 % Low 40-54 [facility] Comment on above: Performed By: #### L 501.5200, L500.4050, L100.0100, L501.2300, L503.6030, L504.2610, L503.6550 ####[facility] [address] [place], [address] Hemoglobin (Bld) [Mass/Vol] 9.4 g/dL Low 13.0-16.5 [facility] Comment on above: Performed By: #### L 501.5200, L500.4050, L100.0100, L501.2300, L503.6030, L504.2610, L503.6550 ####[facility] [address] [place], [address] IG% 0.200 Normal 0.0-0.9 [facility] Comment on above: Result Comment: IG% - Immature Granulocytes (promyelocytes, myelocytes andmetamyelocytes) > 1% indicates that a LEFT SHIFT is Present. Performed By: #### L 501.5200, L500.4050, L100.0100, L501.2300, L503.6030, L504.2610, L503.6550 ####[facility] [address] [place], [address] Lymphocytes/100 WBC (Bld) 12.9 % Low 19-41 [facility] Comment on above: Performed By: #### L 501.5200, L500.4050, L100.0100, L501.2300, L503.6030, L504.2610, L503.6550 ####[facility] [address] [place], [address] MCH (RBC) [Entitic mass] 33.7 pg High 27.0-32.0 [facility] Comment on above: Performed By: #### L 501.5200, L500.4050, L100.0100, L501.2300, L503.6030, L504.2610, L503.6550 ####[facility] [address] [place], [address] MCHC (RBC) [Mass/Vol] 32.1 g/dL Normal 32-36 [facility] Comment on above: Performed By: #### L 501.5200, L500.4050, L100.0100, L501.2300, L503.6030, L504.2610, L503.6550 ####[facility] [address] [place], [address] MCV (RBC) [Entitic vol] 105.0 fL High 80-94 [facility] Comment on above: Performed By: #### L 501.5200, L500.4050, L100.0100, L501.2300, L503.6030, L504.2610, L503.6550 ####[facility] [address] [place], [address] Monocytes/100 WBC (Bld) 8.2 % Normal 0-10 [facility] Comment on above: Performed By: #### L 501.5200, L500.4050, L100.0100, L501.2300, L503.6030, L504.2610, L503.6550 ####[facility] [address] [place], [address] Neutrophils/100 WBC (Bld) 74.4 % High 47-70 [facility] Comment on above: Performed By: #### L 501.5200, L500.4050, L100.0100, L501.2300, L503.6030, L504.2610, L503.6550 ####[facility] [address] [place], [address] Nucleated RBC (Bld) [#/Vol] 0 10*3/uL Normal 0-5 [facility] Comment on above: Performed By: #### L 501.5200, L500.4050, L100.0100, L501.2300, L503.6030, L504.2610, L503.6550 ####[facility] [address] [place], [address] Platelet mean volume (Bld) [Entitic vol] 9.4 fL Normal 6.2-12.0 [facility] Comment on above: Performed By: #### L 501.5200, L500.4050, L100.0100, L501.2300, L503.6030, L504.2610, L503.6550 ####[facility] [address] [place], [address] Platelets (Bld) [#/Vol] 163 10*3/uL Normal 150-450 [facility] Comment on above: Performed By: #### L 501.5200, L500.4050, L100.0100, L501.2300, L503.6030, L504.2610, L503.6550 ####[facility] [address] [place], [address] RBC (Bld) [#/Vol] 2.79 10*6/uL Low 4.6-6.2 [facility] Comment on above: Performed By: #### L 501.5200, L500.4050, L100.0100, L501.2300, L503.6030, L504.2610, L503.6550 ####[facility] [address] [place], [address] RDW SD 58.7 fl High 35.1-43.9 [facility] Comment on above: Performed By: #### L 501.5200, L500.4050, L100.0100, L501.2300, L503.6030, L504.2610, L503.6550 ####[facility] [address] [place], [address] WBC (Bld) [#/Vol] 5.1 10*3/uL Normal 4.4-11.0 [facility] Comment on above: Performed By: #### L 501.5200, L500.4050, L100.0100, L501.2300, L503.6030, L504.2610, L503.6550 ####[facility] [address] [place], [address] Comprehensive Metabolic Prof ilon 11-29-2024 Albumin [Mass/Vol] 3.5 g/dL Normal 3.2-5.0 [facility] Comment on above: Performed By: #### L 501.5200, L500.4050, L100.0100, L501.2300, L503.6030, L504.2610, L503.6550 ####[facility] [address] [place], [place], [id number] Albumin/Globulin [Mass ratio] 0.9 {ratio} Normal 0.9-2.4 [facility] Comment on above: Performed By: #### L 501.5200, L500.4050, L100.0100, L501.2300, L503.6030, L504.2610, L503.6550 ####[facility] [address] [place], [address] ALK P 115 U/L Normal 45-117 [facility] Comment on above: Performed By: #### L 501.5200, L500.4050, L100.0100, L501.2300, L503.6030, L504.2610, L503.6550 ####[facility] [address] [place], [address] ALT [Catalytic activity/Vol] 24 U/L Normal 16-61 [facility] Comment on above: Performed By: #### L 501.5200, L500.4050, L100.0100, L501.2300, L503.6030, L504.2610, L503.6550 ####[facility] [address] [place], [address] AST [Catalytic activity/Vol] 15 U/L Normal 15-37 [facility] Comment on above: Performed By: #### L 501.5200, L500.4050, L100.0100, L501.2300, L503.6030, L504.2610, L503.6550 ####[facility] [address] [place], [address] Bilirubin [Mass/Vol] 0.70 mg/dL Normal 0.20-1.00 [facility] Comment on above: Result Comment: For patients on eltrombopag therapy, use of Dimension Sullivan TBIL is not recommended. Performed By: #### L 501.5200, L500.4050, L100.0100, L501.2300, L503.6030, L504.2610, L503.6550 ####[facility] [address] [place], [address] BUN/CRE 16.1 RATIO Normal 10-20 [facility] Comment on above: Performed By: #### L 501.5200, L500.4050, L100.0100, L501.2300, L503.6030, L504.2610, L503.6550 ####[facility] [address] [place], [address] CA,Total 9.0 mg/dL Normal 8.5-10.1 [facility] Comment on above: Performed By: #### L 501.5200, L500.4050, L100.0100, L501.2300, L503.6030, L504.2610, L503.6550 ####[facility] [address] [place], [address] Chloride [Moles/Vol] 113 mmol/L High 98-107 [facility] Comment on above: Performed By: #### L 501.5200, L500.4050, L100.0100, L501.2300, L503.6030, L504.2610, L503.6550 ####[facility] [address], [address] CO2 [Moles/Vol] 23.0 mmol/L Normal 21.0-32.0 [facility] Comment on above: Performed By: #### L 501.5200, L500.4050, L100.0100, L501.2300, L503.6030, L504.2610, L503.6550 ####[facility] [address] [place], [address] Creatinine [Mass/Vol] 2.11 mg/dL High 0.70-1.30 [facility] Comment on above: Result Comment: The validity of the calculated GFR GFRAA in patients over70 years has not been determined. Clinical correlation isessential. Performed By: #### L 501.5200, L500.4050, L100.0100, L501.2300, L503.6030, L504.2610, L503.6550 ####[facility] [address] [place], [address] ECRCL 22.99 ml/min Normal [facility] Comment on above: Performed By: #### L 501.5200, L500.4050, L100.0100, L501.2300, L503.6030, L504.2610, L503.6550 ####[facility] [address] [place], [address] EST GFR - AA 38 mL/min Low >60 [facility] Comment on above: Result Comment: Afri can Bhutanese GFR Calc Performed By: #### L 501.5200, L500.4050, L100.0100, L501.2300, L503.6030, L504.2610, L503.6550 ####[facility] [address] [place], [address] GAP 8 Normal 5-15 [facility] Comment on above: Performed By: #### L 501.5200, L500.4050, L100.0100, L501.2300, L503.6030, L504.2610, L503.6550 ####[facility] [address] [place], [address] GFR/1.73 sq M.predicted among non-blacks MDRD (S/P/Bld) [Vol rate/Area] 32 mL/min/{1.73_m2} Low >60 [facility] Comment on above: Result Comment: Non- GFR Calc Performed By: #### L 501.5200, L500.4050, L100.0100, L501.2300, L503.6030, L504.2610, L503.6550 ####[facility] [address] [place], [address] Globulin (S) [Mass/Vol] 4.1 g/dL Normal 2.2-4.2 [facility] Comment on above: Performed By: #### L 501.5200, L500.4050, L100.0100, L501.2300, L503.6030, L504.2610, L503.6550 ####[facility] [address] [place], [address] Glucose [Mass/Vol] 91 mg/dL Normal 74-106 [facility] Comment on above: Performed By: #### L 501.5200, L500.4050, L100.0100, L501.2300, L503.6030, L504.2610, L503.6550 ####[facility] [address] [place], [address] Potassium [Moles/Vol] 3.2 mmol/L Low 3.5-5.1 [facility] Comment on above: Performed By: #### L 501.5200, L500.4050, L100.0100, L501.2300, L503.6030, L504.2610, L503.6550 ####[facility] [address] [place], [address] Sodium [Moles/Vol] 144 mmol/L Normal 136-145 [facility] Comment on above: Performed By: #### L 501.5200, L500.4050, L100.0100, L501.2300, L503.6030, L504.2610, L503.6550 ####[facility] [address] [place], [address] T PROT 7.6 g/dL Normal 6.4-8.2 [facility] Comment on above: Performed By: #### L 501.5200, L500.4050, L100.0100, L501.2300, L503.6030, L504.2610, L503.6550 ####[facility] [address] [place], [address] Urea nitrogen [Mass/Vol] 34 mg/dL High 7-18 [facility] Comment on above: Performed By: #### L 501.5200, L500.4050, L100.0100, L501.2300, L503.6030, L504.2610, L503.6550 ####[facility] [address] [place], [address] Estimated glomerular filtrat ion rate (GFR) AmericanOrdered By: Felipe Trivedi on 11-29-2024 Estimated GFR (MDRD) Amer 38 mL/min Low >60 [facility] Comment on above: GFR Calc Ferritinon 11-29-2024 Ferritin [Mass/Vol] 215 ng/mL Normal 26-388 [facility] Comment on above: Performed By: #### L 501.5200, L500.4050, L100.0100, L501.2300, L503.6030, L504.2610, L503.6550 ####[facility] [address] [place], [place], [address] Ferritin measurementOrdered By: Felipe Trivedi on 11-29-2024 Ferritin [Mass/Vol] 215 ng/mL 26-388 [facility] Iron (Unsp spec) [Mass/Mass] Ordered By: Felipe Trivedi on 11-29-2024 Iron [Mass/Vol] 32 ug/dL Low 65-175 [facility] Iron saturation [Mass fracti on]Ordered By: Felipe Trivedi on 11-29-2024 Iron Saturation 13.8 % Low 15.0-55.0 [facility] Iron+Iron Binding Capacityon 11-29-2024 Iron [Mass/Vol] 32 ug/dL Low 65-175 [facility] Comment on above: Performed By: #### L 501.5200, L500.4050, L100.0100, L501.2300, L503.6030, L504.2610, L503.6550 ####[facility] [address] [place], [address] IRON SATURATION 13.8 Low 15.0-55.0 [facility] Comment on above: Performed By: #### L 501.5200, L500.4050, L100.0100, L501.2300, L503.6030, L504.2610, L503.6550 ####[facility] [address] [place], [place], [id number] TIBC 232 ug/dL Low 250-450 [facility] Comment on above: Performed By: #### L 501.5200, L500.4050, L100.0100, L501.2300, L503.6030, L504.2610, L503.6550 ####[facility] [address] [place], [address] LDHon 11-29-2024 LDH 205 U/L Normal 87-241 [facility] Comment on above: Order Comment: 1 Performed By: #### L 501.5200, L500.4050, L100.0100, L501.2300, L503.6030, L504.2610, L503.6550 ####[facility] [address] [place], [address] Lactate dehydrogenase (LDH) measurementOrdered By: Felipe Trivedi on 11-29-2024 LDH [Catalytic activity/Vol] 205 U/L 87-241 [facility] Magnesiumon 11-29-2024 Magnesium [Mass/Vol] 1.5 mg/dL Low 1.6-2.6 [facility] Comment on above: Performed By: #### L 501.5200, L500.4050, L100.0100, L501.2300, L503.6030, L504.2610, L503.6550 ####[facility] [address] [place], [place], [id number] Magnesium measurementOrdered By: Felipe Trivedi on 11-29-2024 Magnesium [Mass/Vol] 1.5 mg/dL Low 1.6-2.6 [facility] Oncology Visit Reporton Oncology Visit Report Normal [facility] Phosphoruson 11-29-2024 Phosphate [Mass/Vol] 2.6 mg/dL Normal 2.5-4.9 [facility] Comment on above: Performed By: #### L 501.5200, L500.4050, L100.0100, L501.2300, L503.6030, L504.2610, L503.6550 ####[facility] [address] [place], [place], [address] Phosphorus measurementOrdere d By: Felipe Trivedi on 11-29-2024 Phosphorus Level 2.6 mg/dL 2.5-4.9 [facility] TIBCOrdered By: Felipe Trivedi on 11-29-2024 Total Iron Binding Capacity 232 ug/dL Low 250-450 [facility] CBC W/Diff, Automatedon - Absolute Lymph 0.77 X10 3/uL Low 0.83-4.51 [facility] Comment on above: Performed By: #### L 100.0100 ####[facility] [address] [place], [address] Absolute Neut 3.7 X10 3/uL Normal 2.0-7.7 [facility] Comment on above: Performed By: #### L 100.0100 ####[facility] [address] [place], [address] Basophils/100 WBC (Bld) 0.6 % Normal 0-1 [facility] Comment on above: Performed By: #### L 100.0100 ####[facility] [address] [place], [address] Eosinophils/100 WBC (Bld) 4.5 % Normal 0-5 [facility] Comment on above: Performed By: #### L 100.0100 ####[facility] [address] [place], [address] Erythrocyte distribution width (RBC) [Ratio] 16.0 % High 11.6-14.6 [facility] Comment on above: Performed By: #### L 100.0100 ####[facility] [address] [place], [address] Hematocrit (Bld) [Volume fraction] 30.2 % Low 40-54 [facility] Comment on above: Performed By: #### L 100.0100 ####[facility] [address] [place], [address] Hemoglobin (Bld) [Mass/Vol] 10.0 g/dL Low 13.0-16.5 [facility] Comment on above: Performed By: #### L 100.0100 ####[facility] [address] [place], [address] IG% 0.400 Normal 0.0-0.9 [facility] Comment on above: Result Comment: IG% - Immature Granulocytes (promyelocytes, myelocytes andmetamyelocytes) > 1% indicates that a LEFT SHIFT is Present. Performed By: #### L 100.0100 ####[facility] [address] [place], [address] Lymphocytes/100 WBC (Bld) 14.9 % Low 19-41 [facility] Comment on above: Performed By: #### L 100.0100 ####[facility] [address] [place], [address] MCH (RBC) [Entitic mass] 34.2 pg High 27.0-32.0 [facility] Comment on above: Performed By: #### L 100.0100 ####[facility] [address] [place], [address] MCHC (RBC) [Mass/Vol] 33.1 g/dL Normal 32-36 [facility] Comment on above: Performed By: #### L 100.0100 ####[facility] [address] [place], [address] MCV (RBC) [Entitic vol] 103.4 fL High 80-94 [facility] Comment on above: Performed By: #### L 100.0100 ####[facility] [address] [place], [address] Monocytes/100 WBC (Bld) 8.1 % Normal 0-10 [facility] Comment on above: Performed By: #### L 100.0100 ####[facility] [address] [place], [address] Neutrophils/100 WBC (Bld) 71.5 % High 47-70 [facility] Comment on above: Performed By: #### L 100.0100 ####[facility] [address] [place], [address] Nucleated RBC (Bld) [#/Vol] 0 10*3/uL Normal 0-5 [facility] Comment on above: Performed By: #### L 100.0100 ####[facility] [address] [place], [address] Platelet mean volume (Bld) [Entitic vol] 9.5 fL Normal 6.2-12.0 [facility] Comment on above: Performed By: #### L 100.0100 ####[facility] [address] [place], [address] Platelets (Bld) [#/Vol] 167 10*3/uL Normal 150-450 [facility] Comment on above: Performed By: #### L 100.0100 ####[facility] [address] [place], [address] RBC (Bld) [#/Vol] 2.92 10*6/uL Low 4.6-6.2 [facility] Comment on above: Performed By: #### L 100.0100 ####[facility] [address] [place], [address] RDW SD 61.5 fl High 35.1-43.9 [facility] Comment on above: Performed By: #### L 100.0100 ####[facility] [address] [place], [address] WBC (Bld) [#/Vol] 5.2 10*3/uL Normal 4.4-11.0 [facility] Comment on above: Performed By: #### L 100.0100 ####[facility] [address] [place], [address] CBC W/Diff, Automatedon 10-26 Anisocytosis Ql (Bld) 1+ Normal [facility] Comment on above: Performed By: #### L 100.0100 ####[facility] [address] [place], [address] Laboratory - Hematology and Cell countsOrdered By: Felipe Trivedi on 11-14-2024 Anisocytosis Ql (Bld) 1+ [facility] CBC W/Diff, Automatedon 10-25 Absolute Lymph 0.77 X10 3/uL Low 0.83-4.51 [facility] Comment on above: Performed By: #### L 100.0100 ####[facility] [address] [place], [address] Absolute Neut 3.0 X10 3/uL Normal 2.0-7.7 [facility] Comment on above: Performed By: #### L 100.0100 ####[facility] [address] [place], [address] Basophils/100 WBC (Bld) 0.7 % Normal 0-1 [facility] Comment on above: Performed By: #### L 100.0100 ####[facility] [address] [place], [address] Eosinophils/100 WBC (Bld) 6.0 % High 0-5 [facility] Comment on above: Performed By: #### L 100.0100 ####[facility] [address] [place], [address] Erythrocyte distribution width (RBC) [Ratio] 18.1 % High 11.6-14.6 [facility] Comment on above: Performed By: #### L 100.0100 ####[facility] [address] [place], [address] Hematocrit (Bld) [Volume fraction] 31.0 % Low 40-54 [facility] Comment on above: Performed By: #### L 100.0100 ####[facility] [address] [place], [address] Hemoglobin (Bld) [Mass/Vol] 10.0 g/dL Low 13.0-16.5 [facility] Comment on above: Performed By: #### L 100.0100 ####[facility] [address] [place], [address] IG% 0.200 Normal 0.0-0.9 [facility] Comment on above: Result Comment: IG% - Immature Granulocytes (promyelocytes, myelocytes andmetamyelocytes) > 1% indicates that a LEFT SHIFT is Present. Performed By: #### L 100.0100 ####[facility] [address] [place], [address] Lymphocytes/100 WBC (Bld) 17.1 % Low 19-41 [facility] Comment on above: Performed By: #### L 100.0100 ####[facility] [address] [place], [address] MCH (RBC) [Entitic mass] 33.2 pg High 27.0-32.0 [facility] Comment on above: Performed By: #### L 100.0100 ####[facility] [address] [place], [address] MCHC (RBC) [Mass/Vol] 32.3 g/dL Normal 32-36 [facility] Comment on above: Performed By: #### L 100.0100 ####[facility] [address] [place], [address] MCV (RBC) [Entitic vol] 103.0 fL High 80-94 [facility] Comment on above: Performed By: #### L 100.0100 ####[facility] [address] [place], [address] Monocytes/100 WBC (Bld) 8.6 % Normal 0-10 [facility] Comment on above: Performed By: #### L 100.0100 ####[facility] [address] [place], [address] Neutrophils/100 WBC (Bld) 67.4 % Normal 47-70 [facility] Comment on above: Performed By: #### L 100.0100 ####[facility] [address] [place], [address] Nucleated RBC (Bld) [#/Vol] 0 10*3/uL Normal 0-5 [facility] Comment on above: Performed By: #### L 100.0100 ####[facility] [address] [place], [address] Platelet mean volume (Bld) [Entitic vol] 9.6 fL Normal 6.2-12.0 [facility] Comment on above: Performed By: #### L 100.0100 ####[facility] [address] [place], [address] Platelets (Bld) [#/Vol] 154 10*3/uL Normal 150-450 [facility] Comment on above: Performed By: #### L 100.0100 ####[facility] [address] [place], [address] RBC (Bld) [#/Vol] 3.01 10*6/uL Low 4.6-6.2 [facility] Comment on above: Performed By: #### L 100.0100 ####[facility] [address] [place], [address] RDW SD 64.8 fl High 35.1-43.9 [facility] Comment on above: Performed By: #### L 100.0100 ####[facility] [address] [place], [address] WBC (Bld) [#/Vol] 4.5 10*3/uL Normal 4.4-11.0 [facility] Comment on above: Performed By: #### L 100.0100 ####[facility] [address] [place], [address] CBC W/Diff, Automatedon 01-0 5 Absolute Lymph 1.06 X10 3/uL Normal 0.83-4.51 [facility] Comment on above: Performed By: #### L 503.6550, L100.0100, L506.0250, L503.6030, L500.4050, L503.0105 ####[facility] [address] [place], [address] Absolute Neut 4.3 X10 3/uL Normal 2.0-7.7 [facility] Comment on above: Performed By: #### L 503.6550, L100.0100, L506.0250, L503.6030, L500.4050, L503.0105 ####[facility] [address] [place], [address] Basophils/100 WBC (Bld) 0.7 % Normal 0-1 [facility] Comment on above: Performed By: #### L 503.6550, L100.0100, L506.0250, L503.6030, L500.4050, L503.0105 ####[facility] [address] [place], [address] Eosinophils/100 WBC (Bld) 4.6 % Normal 0-5 [facility] Comment on above: Performed By: #### L 503.6550, L100.0100, L506.0250, L503.6030, L500.4050, L503.0105 ####[facility] [address] [place], [address] Erythrocyte distribution width (RBC) [Ratio] 16.7 % High 11.6-14.6 [facility] Comment on above: Performed By: #### L 503.6550, L100.0100, L506.0250, L503.6030, L500.4050, L503.0105 ####[facility] [address] [place], [address] Hematocrit (Bld) [Volume fraction] 31.3 % Low 40-54 [facility] Comment on above: Performed By: #### L 503.6550, L100.0100, L506.0250, L503.6030, L500.4050, L503.0105 ####[facility] [address] [place], [address] Hemoglobin (Bld) [Mass/Vol] 9.9 g/dL Low 13.0-16.5 [facility] Comment on above: Performed By: #### L 503.6550, L100.0100, L506.0250, L503.6030, L500.4050, L503.0105 ####[facility] [address] [facility] [place], [address] IG% 0.300 Normal 0.0-0.9 [facility] Comment on above: Result Comment: IG% - Immature Granulocytes (promyelocytes, myelocytes andmetamyelocytes) > 1% indicates that a LEFT SHIFT is Present. Performed By: #### L 503.6550, L100.0100, L506.0250, L503.6030, L500.4050, L503.0105 ####[facility] [address] [facility] [place], [address] Lymphocytes/100 WBC (Bld) 17.3 % Low 19-41 [facility] Comment on above: Performed By: #### L 503.6550, L100.0100, L506.0250, L503.6030, L500.4050, L503.0105 ####[facility] [address] [place], [address] MCH (RBC) [Entitic mass] 31.9 pg Normal 27.0-32.0 [facility] Comment on above: Performed By: #### L 503.6550, L100.0100, L506.0250, L503.6030, L500.4050, L503.0105 ####[facility] [address] [place], [address] MCHC (RBC) [Mass/Vol] 31.6 g/dL Low 32-36 [facility] Comment on above: Performed By: #### L 503.6550, L100.0100, L506.0250, L503.6030, L500.4050, L503.0105 ####[facility] [address] [place], [address] MCV (RBC) [Entitic vol] 101.0 fL High 80-94 [facility] Comment on above: Performed By: #### L 503.6550, L100.0100, L506.0250, L503.6030, L500.4050, L503.0105 ####[facility] [address] [place], [address] Monocytes/100 WBC (Bld) 7.8 % Normal 0-10 [facility] Comment on above: Performed By: #### L 503.6550, L100.0100, L506.0250, L503.6030, L500.4050, L503.0105 ####[facility] [address] [place], [address] Neutrophils/100 WBC (Bld) 69.3 % Normal 47-70 [facility] Comment on above: Performed By: #### L 503.6550, L100.0100, L506.0250, L503.6030, L500.4050, L503.0105 ####[facility] [address] [place], [address] Nucleated RBC (Bld) [#/Vol] 0 10*3/uL Normal 0-5 [facility] Comment on above: Performed By: #### L 503.6550, L100.0100, L506.0250, L503.6030, L500.4050, L503.0105 ####[facility] [address] [place], [address] Platelet mean volume (Bld) [Entitic vol] 9.2 fL Normal 6.2-12.0 [facility] Comment on above: Performed By: #### L 503.6550, L100.0100, L506.0250, L503.6030, L500.4050, L503.0105 ####[facility] [address] [place], [address] Platelets (Bld) [#/Vol] 168 10*3/uL Normal 150-450 [facility] Comment on above: Performed By: #### L 503.6550, L100.0100, L506.0250, L503.6030, L500.4050, L503.0105 ####[facility] [address] [place], [address] RBC (Bld) [#/Vol] 3.10 10*6/uL Low 4.6-6.2 [facility] Comment on above: Performed By: #### L 503.6550, L100.0100, L506.0250, L503.6030, L500.4050, L503.0105 ####[facility] [address] [place], [address] RDW SD 61.1 fl High 35.1-43.9 [facility] Comment on above: Performed By: #### L 503.6550, L100.0100, L506.0250, L503.6030, L500.4050, L503.0105 ####[facility] [address] [place], [address] WBC (Bld) [#/Vol] 6.1 10*3/uL Normal 4.4-11.0 [facility] Comment on above: Performed By: #### L 503.6550, L100.0100, L506.0250, L503.6030, L500.4050, L503.0105 ####[facility] [address] [place], [address] Comprehensive Metabolic Prof ilon 10-31-2024 Albumin [Mass/Vol] 3.9 g/dL Normal 3.2-5.0 [facility] Comment on above: Order Comment: UNKNO WNN Performed By: #### L 503.6550, L100.0100, L506.0250, L503.6030, L500.4050, L503.0105 ####[facility] [address] [place], [address] Albumin/Globulin [Mass ratio] 1.0 {ratio} Normal 0.9-2.4 [facility] Comment on above: Order Comment: UNKNO WNN Performed By: #### L 503.6550, L100.0100, L506.0250, L503.6030, L500.4050, L503.0105 ####[facility] [address] [place], [address] ALK P 114 U/L Normal 45-117 [facility] Comment on above: Order Comment: UNKNO WNN Performed By: #### L 503.6550, L100.0100, L506.0250, L503.6030, L500.4050, L503.0105 ####[facility] [address] [place], [address] ALT [Catalytic activity/Vol] 35 U/L Normal 16-61 [facility] Comment on above: Order Comment: UNKNO WNN Performed By: #### L 503.6550, L100.0100, L506.0250, L503.6030, L500.4050, L503.0105 ####[facility] [address] [place], [address] AST [Catalytic activity/Vol] 23 U/L Normal 15-37 [facility] Comment on above: Order Comment: UNKNO WNN Performed By: #### L 503.6550, L100.0100, L506.0250, L503.6030, L500.4050, L503.0105 ####[facility] [address] [place], [address] Bilirubin [Mass/Vol] 0.90 mg/dL Normal 0.20-1.00 [facility] Comment on above: Order Comment: UNKNO WNN Result Comment: For patients on eltrombopag therapy, use of Dimension Sullivan TBIL is not recommended. Performed By: #### L 503.6550, L100.0100, L506.0250, L503.6030, L500.4050, L503.0105 ####[facility] [address] [place], [address] BUN/CRE 17.5 RATIO Normal 10-20 [facility] Comment on above: Order Comment: UNKNO WNN Performed By: #### L 503.6550, L100.0100, L506.0250, L503.6030, L500.4050, L503.0105 ####[facility] [address] [place], [address] CA,Total 9.0 mg/dL Normal 8.5-10.1 [facility] Comment on above: Order Comment: UNKNO WNN Performed By: #### L 503.6550, L100.0100, L506.0250, L503.6030, L500.4050, L503.0105 ####[facility] [address] [place], [address] Chloride [Moles/Vol] 113 mmol/L High 98-107 [facility] Comment on above: Order Comment: UNKNO WNN Performed By: #### L 503.6550, L100.0100, L506.0250, L503.6030, L500.4050, L503.0105 ####[facility] [address] [place], [address] CO2 [Moles/Vol] 27.0 mmol/L Normal 21.0-32.0 [facility] Comment on above: Order Comment: UNKNO WNN Performed By: #### L 503.6550, L100.0100, L506.0250, L503.6030, L500.4050, L503.0105 ####[facility] [address] [place], [address] Creatinine [Mass/Vol] 1.83 mg/dL High 0.70-1.30 [facility] Comment on above: Order Comment: UNKNO WNN Result Comment: The validity of the calculated GFR GFRAA in patients over70 years has not been determined. Clinical correlation isessential. Performed By: #### L 503.6550, L100.0100, L506.0250, L503.6030, L500.4050, L503.0105 ####[facility] [address] [place], [address] ECRCL 25.83 ml/min Normal [facility] Comment on above: Order Comment: UNKNO WNN Performed By: #### L 503.6550, L100.0100, L506.0250, L503.6030, L500.4050, L503.0105 ####[facility] [address] [place], [address] EST GFR - AA 45 mL/min Low >60 [facility] Comment on above: Order Comment: UNKNO WNN Result Comment: Afri can Bhutanese GFR Calc Performed By: #### L 503.6550, L100.0100, L506.0250, L503.6030, L500.4050, L503.0105 ####[facility] [address] [place], [address] GAP 5 Normal 5-15 [facility] Comment on above: Order Comment: UNKNO WNN Performed By: #### L 503.6550, L100.0100, L506.0250, L503.6030, L500.4050, L503.0105 ####[facility] [address] [place], [address] GFR/1.73 sq M.predicted among non-blacks MDRD (S/P/Bld) [Vol rate/Area] 37 mL/min/{1.73_m2} Low >60 [facility] Comment on above: Order Comment: UNKNO WNN Result Comment: Non- GFR Calc Performed By: #### L 503.6550, L100.0100, L506.0250, L503.6030, L500.4050, L503.0105 ####[facility] [address] [place], [address] Globulin (S) [Mass/Vol] 3.8 g/dL Normal 2.2-4.2 [facility] Comment on above: Order Comment: UNKNO WNN Performed By: #### L 503.6550, L100.0100, L506.0250, L503.6030, L500.4050, L503.0105 ####[facility] [address] [place], [address] Glucose [Mass/Vol] 121 mg/dL High 74-106 [facility] Comment on above: Order Comment: UNKNO WNN Result Comment: Fast ing Glucose result from 100 to 125 mg/dLsuggests IMPAIRED HOMEOSTASIS per A.D.A. criteria. Performed By: #### L 503.6550, L100.0100, L506.0250, L503.6030, L500.4050, L503.0105 ####[facility] [address], [address] Potassium [Moles/Vol] 2.6 mmol/L Invalid Interpretation Code 3.5-5.1 [facility] Comment on above: Order Comment: UNKNO WNN Result Comment: Crit ical Result(s) Called at: 11:31:33 10/31/2024 by:Nazanin Miranda to [facility]. Results read back by same. Performed By: #### L 503.6550, L100.0100, L506.0250, L503.6030, L500.4050, L503.0105 ####[facility] [address] [place], [address] Sodium [Moles/Vol] 145 mmol/L Normal 136-145 [facility] Comment on above: Order Comment: UNKNO WNN Performed By: #### L 503.6550, L100.0100, L506.0250, L503.6030, L500.4050, L503.0105 ####[facility] [address] [place], [address] T PROT 7.7 g/dL Normal 6.4-8.2 [facility] Comment on above: Order Comment: UNKNO WNN Performed By: #### L 503.6550, L100.0100, L506.0250, L503.6030, L500.4050, L503.0105 ####[facility] [address] [place], [address] Urea nitrogen [Mass/Vol] 32 mg/dL High 7-18 [facility] Comment on above: Order Comment: UNKNO WNN Performed By: #### L 503.6550, L100.0100, L506.0250, L503.6030, L500.4050, L503.0105 ####[facility] [address] [place], [address] Ferritinon 10-31-2024 Ferritin [Mass/Vol] 188 ng/mL Normal 26-388 [facility] Comment on above: Order Comment: UNKNO WNN Performed By: #### L 503.6550, L100.0100, L506.0250, L503.6030, L500.4050, L503.0105 ####[facility] [address] [place], [address] Folates, (Folic Acid)on FOLATES 13.50 ng/mL Normal 3.1-55.4 [facility] Comment on above: Order Comment: UNKNO WNN Performed By: #### L 503.6550, L100.0100, L506.0250, L503.6030, L500.4050, L503.0105 ####[facility] [address] [place], [address] Folic acid measurementOrdere d By: Felipe Trivedi on 10-31-2024 Folate 13.50 ng/mL 3.1-55.4 [facility] Iron+Iron Binding Capacityon 10-31-2024 Iron [Mass/Vol] 102 ug/dL Normal 65-175 [facility] Comment on above: Order Comment: UNKNO WNN Performed By: #### L 503.6550, L100.0100, L506.0250, L503.6030, L500.4050, L503.0105 ####[facility] [address] [place], [place], [address] IRON SATURATION 42.7 Normal 15.0-55.0 [facility] Comment on above: Order Comment: UNKNO WNN Performed By: #### L 503.6550, L100.0100, L506.0250, L503.6030, L500.4050, L503.0105 ####[facility] [address] [place], [address] TIBC 239 ug/dL Low 250-450 [facility] Comment on above: Order Comment: UNKNO WNN Performed By: #### L 503.6550, L100.0100, L506.0250, L503.6030, L500.4050, L503.0105 ####[facility] [address] [place], [address] Oncology Visit Reporton Oncology Visit Report Normal [facility] Vitamin B12on 10-31-2024 Cobalamin (Vitamin B12) [Mass/Vol] 956 pg/mL High 211-911 [facility] Comment on above: Performed By: #### L 503.6550, L100.0100, L506.0250, L503.6030, L500.4050, L503.0105 ####[facility] [address] [place], [address] Vitamin B12 measurementOrder ed By: Felipe Trivedi on 10-31-2024 Cobalamin (Vitamin B12) [Mass/Vol] 956 pg/mL High 211-911 [facility] CBC W/Diff, Automatedon 12-0 Absolute Lymph 1.09 X10 3/uL Normal 0.83-4.51 [facility] Comment on above: Performed By: #### L 503.6550, L503.6030, L500.4050, L100.0100 ####[facility] [address] [place], [address] Absolute Neut 3.0 X10 3/uL Normal 2.0-7.7 [facility] Comment on above: Performed By: #### L 503.6550, L503.6030, L500.4050, L100.0100 ####[facility] [address] [place], [address] Basophils/100 WBC (Bld) 0.8 % Normal 0-1 [facility] Comment on above: Performed By: #### L 503.6550, L503.6030, L500.4050, L100.0100 ####[facility] [address] [place], [address] Eosinophils/100 WBC (Bld) 5.6 % High 0-5 [facility] Comment on above: Performed By: #### L 503.6550, L503.6030, L500.4050, L100.0100 ####[facility] [address] [place], [address] Erythrocyte distribution width (RBC) [Ratio] 14.8 % High 11.6-14.6 [facility] Comment on above: Performed By: #### L 503.6550, L503.6030, L500.4050, L100.0100 ####[facility] [address] [place], [address] Hematocrit (Bld) [Volume fraction] 32.4 % Low 40-54 [facility] Comment on above: Performed By: #### L 503.6550, L503.6030, L500.4050, L100.0100 ####[facility] [address] [place], [address] Hemoglobin (Bld) [Mass/Vol] 10.5 g/dL Low 13.0-16.5 [facility] Comment on above: Performed By: #### L 503.6550, L503.6030, L500.4050, L100.0100 ####[facility] [address] [place], [address] IG% 0.400 Normal 0.0-0.9 [facility] Comment on above: Result Comment: IG% - Immature Granulocytes (promyelocytes, myelocytes andmetamyelocytes) > 1% indicates that a LEFT SHIFT is Present. Performed By: #### L 503.6550, L503.6030, L500.4050, L100.0100 ####[facility] [address] [place], [address] Lymphocytes/100 WBC (Bld) 22.8 % Normal 19-41 [facility] Comment on above: Performed By: #### L 503.6550, L503.6030, L500.4050, L100.0100 ####[facility] [address] [place], [address] MCH (RBC) [Entitic mass] 32.8 pg High 27.0-32.0 [facility] Comment on above: Performed By: #### L 503.6550, L503.6030, L500.4050, L100.0100 ####[facility] [address] [place], [address] MCHC (RBC) [Mass/Vol] 32.4 g/dL Normal 32-36 [facility] Comment on above: Performed By: #### L 503.6550, L503.6030, L500.4050, L100.0100 ####[facility] [address] [place], [address] MCV (RBC) [Entitic vol] 101.3 fL High 80-94 [facility] Comment on above: Performed By: #### L 503.6550, L503.6030, L500.4050, L100.0100 ####[facility] [address] [place], [address] Monocytes/100 WBC (Bld) 8.6 % Normal 0-10 [facility] Comment on above: Performed By: #### L 503.6550, L503.6030, L500.4050, L100.0100 ####[facility] [address] [place], [address] Neutrophils/100 WBC (Bld) 61.8 % Normal 47-70 [facility] Comment on above: Performed By: #### L 503.6550, L503.6030, L500.4050, L100.0100 ####[facility] [address] [place], [address] Nucleated RBC (Bld) [#/Vol] 0 10*3/uL Normal 0-5 [facility] Comment on above: Performed By: #### L 503.6550, L503.6030, L500.4050, L100.0100 ####[facility] [address] [place], [address] Platelet mean volume (Bld) [Entitic vol] 9.1 fL Normal 6.2-12.0 [facility] Comment on above: Performed By: #### L 503.6550, L503.6030, L500.4050, L100.0100 ####[facility] [address] [place], [address] Platelets (Bld) [#/Vol] 126 10*3/uL Low 150-450 [facility] Comment on above: Performed By: #### L 503.6550, L503.6030, L500.4050, L100.0100 ####[facility] [address] [place], [address] RBC (Bld) [#/Vol] 3.20 10*6/uL Low 4.6-6.2 [facility] Comment on above: Performed By: #### L 503.6550, L503.6030, L500.4050, L100.0100 ####[facility] [address] [place], [address] RDW SD 54.7 fl High 35.1-43.9 [facility] Comment on above: Performed By: #### L 503.6550, L503.6030, L500.4050, L100.0100 ####[facility] [address] [place], [address] WBC (Bld) [#/Vol] 4.8 10*3/uL Normal 4.4-11.0 [facility] Comment on above: Performed By: #### L 503.6550, L503.6030, L500.4050, L100.0100 ####[facility] [address] [place], [address] Comprehensive Metabolic Prof ilon 09-26-2024 Albumin [Mass/Vol] 3.8 g/dL Normal 3.2-5.0 [facility] Comment on above: Performed By: #### L 503.6550, L503.6030, L500.4050, L100.0100 ####[facility] [address] [place], [address] Albumin/Globulin [Mass ratio] 1.1 {ratio} Normal 0.9-2.4 [facility] Comment on above: Performed By: #### L 503.6550, L503.6030, L500.4050, L100.0100 ####[facility] [address] [place], [address] ALK P 115 U/L Normal 45-117 [facility] Comment on above: Performed By: #### L 503.6550, L503.6030, L500.4050, L100.0100 ####[facility] [address] [place], [address] ALT [Catalytic activity/Vol] 35 U/L Normal 16-61 [facility] Comment on above: Performed By: #### L 503.6550, L503.6030, L500.4050, L100.0100 ####[facility] [address] [place], [address] AST [Catalytic activity/Vol] 24 U/L Normal 15-37 [facility] Comment on above: Performed By: #### L 503.6550, L503.6030, L500.4050, L100.0100 ####[facility] [address] [place], [address] Bilirubin [Mass/Vol] 0.90 mg/dL Normal 0.20-1.00 [facility] Comment on above: Result Comment: For patients on eltrombopag therapy, use of Dimension Sullivan TBIL is not recommended. Performed By: #### L 503.6550, L503.6030, L500.4050, L100.0100 ####[facility] [address] [place], [address] BUN/CRE 20.0 RATIO Normal 10-20 [facility] Comment on above: Performed By: #### L 503.6550, L503.6030, L500.4050, L100.0100 ####[facility] [address] [place], [address] CA,Total 9.1 mg/dL Normal 8.5-10.1 [facility] Comment on above: Performed By: #### L 503.6550, L503.6030, L500.4050, L100.0100 ####[facility] [address] [place], [address] Chloride [Moles/Vol] 111 mmol/L High 98-107 [facility] Comment on above: Performed By: #### L 503.6550, L503.6030, L500.4050, L100.0100 ####[facility] [address] [place], [address] CO2 [Moles/Vol] 27.0 mmol/L Normal 21.0-32.0 [facility] Comment on above: Performed By: #### L 503.6550, L503.6030, L500.4050, L100.0100 ####[facility] [address] [place], [address] Creatinine [Mass/Vol] 1.80 mg/dL High 0.70-1.30 [facility] Comment on above: Result Comment: The validity of the calculated GFR GFRAA in patients over70 years has not been determined. Clinical correlation isessential. Performed By: #### L 503.6550, L503.6030, L500.4050, L100.0100 ####[facility] [address] [place], [address] ECRCL 26.11 ml/min Normal [facility] Comment on above: Performed By: #### L 503.6550, L503.6030, L500.4050, L100.0100 ####[facility] [address] [place], [address] EST GFR - AA 46 mL/min Low >60 [facility] Comment on above: Result Comment: Afri can Bhutanese GFR Calc Performed By: #### L 503.6550, L503.6030, L500.4050, L100.0100 ####[facility] [address] [place], [address] GAP 5 Normal 5-15 [facility] Comment on above: Performed By: #### L 503.6550, L503.6030, L500.4050, L100.0100 ####[facility] [address] [place], [address] GFR/1.73 sq M.predicted among non-blacks MDRD (S/P/Bld) [Vol rate/Area] 38 mL/min/{1.73_m2} Low >60 [facility] Comment on above: Result Comment: Non- GFR Calc Performed By: #### L 503.6550, L503.6030, L500.4050, L100.0100 ####[facility] [address] [place], [address] Globulin (S) [Mass/Vol] 3.6 g/dL Normal 2.2-4.2 [facility] Comment on above: Performed By: #### L 503.6550, L503.6030, L500.4050, L100.0100 ####[facility] [address] [place], [address] Glucose [Mass/Vol] 108 mg/dL High 74-106 [facility] Comment on above: Result Comment: Fast ing Glucose result from 100 to 125 mg/dLsuggests IMPAIRED HOMEOSTASIS per A.D.A. criteria. Performed By: #### L 503.6550, L503.6030, L500.4050, L100.0100 ####[facility] [address] [place], [address] Potassium [Moles/Vol] 2.9 mmol/L Low 3.5-5.1 [facility] Comment on above: Performed By: #### L 503.6550, L503.6030, L500.4050, L100.0100 ####[facility] [address] [place], [address] Sodium [Moles/Vol] 143 mmol/L Normal 136-145 [facility] Comment on above: Performed By: #### L 503.6550, L503.6030, L500.4050, L100.0100 ####[facility] [address] [place], [address] T PROT 7.4 g/dL Normal 6.4-8.2 [facility] Comment on above: Performed By: #### L 503.6550, L503.6030, L500.4050, L100.0100 ####[facility] [address] [place], [address] Urea nitrogen [Mass/Vol] 36 mg/dL High 7-18 [facility] Comment on above: Performed By: #### L 503.6550, L503.6030, L500.4050, L100.0100 ####[facility] [address] [place], [address] Ferritinon 09-26-2024 Ferritin [Mass/Vol] 158 ng/mL Normal 26-388 [facility] Comment on above: Performed By: #### L 503.6550, L503.6030, L500.4050, L100.0100 ####[facility] [address] [place], [address] Iron+Iron Binding Capacityon 09-26-2024 Iron [Mass/Vol] 110 ug/dL Normal 65-175 [facility] Comment on above: Performed By: #### L 503.6550, L503.6030, L500.4050, L100.0100 ####[facility] [address] [place], [address] IRON SATURATION 32.4 Normal 15.0-55.0 [facility] Comment on above: Performed By: #### L 503.6550, L503.6030, L500.4050, L100.0100 ####[facility] [address] [place], [address] TIBC 339 ug/dL Normal 250-450 [facility] Comment on above: Performed By: #### L 503.6550, L503.6030, L500.4050, L100.0100 ####[facility] [address] [place], [address] Oncology Visit Reporton Oncology Visit Report Normal [facility] CBC W/Diff, Automatedon Absolute Lymph 0.93 X10 3/uL Normal 0.83-4.51 [facility] Comment on above: Performed By: #### L 100.0100 ####[facility] [address] [place], [address] Absolute Neut 3.7 X10 3/uL Normal 2.0-7.7 [facility] Comment on above: Performed By: #### L 100.0100 ####[facility] [address] [place], [address] Basophils/100 WBC (Bld) 0.7 % Normal 0-1 [facility] Comment on above: Performed By: #### L 100.0100 ####[facility] [address] [place], [address] Eosinophils/100 WBC (Bld) 4.3 % Normal 0-5 [facility] Comment on above: Performed By: #### L 100.0100 ####[facility] [address] [place], [address] Erythrocyte distribution width (RBC) [Ratio] 14.8 % High 11.6-14.6 [facility] Comment on above: Performed By: #### L 100.0100 ####[facility] [address] [place], [address] Hematocrit (Bld) [Volume fraction] 35.7 % Low 40-54 [facility] Comment on above: Performed By: #### L 100.0100 ####[facility] [address] [place], [address] Hemoglobin (Bld) [Mass/Vol] 11.6 g/dL Low 13.0-16.5 [facility] Comment on above: Performed By: #### L 100.0100 ####[facility] [address] [place], [address] IG% 0.400 Normal 0.0-0.9 [facility] Comment on above: Result Comment: IG% - Immature Granulocytes (promyelocytes, myelocytes andmetamyelocytes) > 1% indicates that a LEFT SHIFT is Present. Performed By: #### L 100.0100 ####[facility] [address] [place], [address] Lymphocytes/100 WBC (Bld) 17.4 % Low 19-41 [facility] Comment on above: Performed By: #### L 100.0100 ####[facility] [address] [place], [address] MCH (RBC) [Entitic mass] 33.0 pg High 27.0-32.0 [facility] Comment on above: Performed By: #### L 100.0100 ####[facility] [address] [place], [address] MCHC (RBC) [Mass/Vol] 32.5 g/dL Normal 32-36 [facility] Comment on above: Performed By: #### L 100.0100 ####[facility] [address] [place], [address] MCV (RBC) [Entitic vol] 101.7 fL High 80-94 [facility] Comment on above: Performed By: #### L 100.0100 ####[facility] [address] [place], [address] Monocytes/100 WBC (Bld) 8.0 % Normal 0-10 [facility] Comment on above: Performed By: #### L 100.0100 ####[facility] [address] [place], [address] Neutrophils/100 WBC (Bld) 69.2 % Normal 47-70 [facility] Comment on above: Performed By: #### L 100.0100 ####[facility] [address] [place], [address] Nucleated RBC (Bld) [#/Vol] 0 10*3/uL Normal 0-5 [facility] Comment on above: Performed By: #### L 100.0100 ####[facility] [address] [place], [address] Platelet mean volume (Bld) [Entitic vol] 10.5 fL Normal 6.2-12.0 [facility] Comment on above: Performed By: #### L 100.0100 ####[facility] [address] [place], [address] Platelets (Bld) [#/Vol] 156 10*3/uL Normal 150-450 [facility] Comment on above: Performed By: #### L 100.0100 ####[facility] [address] [place], [address] RBC (Bld) [#/Vol] 3.51 10*6/uL Low 4.6-6.2 [facility] Comment on above: Performed By: #### L 100.0100 ####[facility] [address] [place], [address] RDW SD 54.8 fl High 35.1-43.9 [facility] Comment on above: Performed By: #### L 100.0100 ####[facility] [address] [place], [address] WBC (Bld) [#/Vol] 5.4 10*3/uL Normal 4.4-11.0 [facility] Comment on above: Performed By: #### L 100.0100 ####[facility] [address] [place], [address] Oncology Visit Reporton 11-0 Oncology Visit Report Normal [facility] CBC W/Diff, Automatedon 10-1 0-2023 Absolute Lymph 1.05 X10 3/uL Normal 0.83-4.51 [facility] Comment on above: Performed By: #### L 100.0100 ####[facility] [address] [place], [address] Absolute Neut 3.6 X10 3/uL Normal 2.0-7.7 [facility] Comment on above: Performed By: #### L 100.0100 ####[facility] [address] [place], [address] Basophils/100 WBC (Bld) 0.9 % Normal 0-1 [facility] Comment on above: Performed By: #### L 100.0100 ####[facility] [address] [place], [address] Eosinophils/100 WBC (Bld) 7.6 % High 0-5 [facility] Comment on above: Performed By: #### L 100.0100 ####[facility] [address] [place], [address] Erythrocyte distribution width (RBC) [Ratio] 14.7 % High 11.6-14.6 [facility] Comment on above: Performed By: #### L 100.0100 ####[facility] [address] [place], [address] Hematocrit (Bld) [Volume fraction] 36.8 % Low 40-54 [facility] Comment on above: Performed By: #### L 100.0100 ####[facility] [address] [place], [address] Hemoglobin (Bld) [Mass/Vol] 11.8 g/dL Low 13.0-16.5 [facility] Comment on above: Performed By: #### L 100.0100 ####[facility] [address] [place], [address] IG% 0.400 Normal 0.0-0.9 [facility] Comment on above: Result Comment: IG% - Immature Granulocytes (promyelocytes, myelocytes andmetamyelocytes) > 1% indicates that a LEFT SHIFT is Present. Performed By: #### L 100.0100 ####[facility] [address] [place], [address] Lymphocytes/100 WBC (Bld) 18.9 % Low 19-41 [facility] Comment on above: Performed By: #### L 100.0100 ####[facility] [address] [place], [address] MCH (RBC) [Entitic mass] 33.6 pg High 27.0-32.0 [facility] Comment on above: Performed By: #### L 100.0100 ####[facility] [address] [place], [address] MCHC (RBC) [Mass/Vol] 32.1 g/dL Normal 32-36 [facility] Comment on above: Performed By: #### L 100.0100 ####[facility] [address] [place], [address] MCV (RBC) [Entitic vol] 104.8 fL High 80-94 [facility] Comment on above: Performed By: #### L 100.0100 ####[facility] [address] [place], [address] Monocytes/100 WBC (Bld) 6.8 % Normal 0-10 [facility] Comment on above: Performed By: #### L 100.0100 ####[facility] [address] [place], [address] Neutrophils/100 WBC (Bld) 65.4 % Normal 47-70 [facility] Comment on above: Performed By: #### L 100.0100 ####[facility] [address] [place], [address] Nucleated RBC (Bld) [#/Vol] 0 10*3/uL Normal 0-5 [facility] Comment on above: Performed By: #### L 100.0100 ####[facility] [address] [place], [address] Platelet mean volume (Bld) [Entitic vol] 10.8 fL Normal 6.2-12.0 [facility] Comment on above: Performed By: #### L 100.0100 ####[facility] [address] [place], [address] Platelets (Bld) [#/Vol] 168 10*3/uL Normal 150-450 [facility] Comment on above: Performed By: #### L 100.0100 ####[facility] [address] [place], [address] RBC (Bld) [#/Vol] 3.51 10*6/uL Low 4.6-6.2 [facility] Comment on above: Performed By: #### L 100.0100 ####[facility] [address] [place], [address] RDW SD 57.1 fl High 35.1-43.9 [facility] Comment on above: Performed By: #### L 100.0100 ####[facility] [address] [place], [address] WBC (Bld) [#/Vol] 5.6 10*3/uL Normal 4.4-11.0 [facility] Comment on above: Performed By: #### L 100.0100 ####[facility] [address] [place], [address] Oncology Visit Reporton 07-25 Oncology Visit Report Normal [facility] Basic Metabolic Profile (BMP )on 07-26-2024 BUN/CRE 36.2 RATIO High 10-20 [facility] Comment on above: Performed By: #### L 501.0900, L500.2500 ####[facility] [address] [place], [address] CA,Total 10.2 mg/dL High 8.5-10.1 [facility] Comment on above: Performed By: #### L 501.0900, L500.2500 ####[facility] [address] [place], [address] Chloride [Moles/Vol] 106 mmol/L Normal 98-107 [facility] Comment on above: Performed By: #### L 501.0900, L500.2500 ####[facility] [address] [place], [address] CO2 [Moles/Vol] 25.0 mmol/L Normal 21.0-32.0 [facility] Comment on above: Performed By: #### L 501.0900, L500.2500 ####[facility] [address] [place], [address] Creatinine [Mass/Vol] 2.54 mg/dL High 0.70-1.30 [facility] Comment on above: Result Comment: The validity of the calculated GFR GFRAA in patients over70 years has not been determined. Clinical correlation isessential. Performed By: #### L 501.0900, L500.2500 ####[facility] [address] [place], [address] EST GFR - AA 31 mL/min Low >60 [facility] Comment on above: Result Comment: Afri can Bhutanese GFR Calc Performed By: #### L 501.0900, L500.2500 ####[facility] [address], [address] GAP 9 Normal 5-15 [facility] Comment on above: Performed By: #### L 501.0900, L500.2500 ####[facility] [address] [place], [address] GFR/1.73 sq M.predicted among non-blacks MDRD (S/P/Bld) [Vol rate/Area] 26 mL/min/{1.73_m2} Low >60 [facility] Comment on above: Result Comment: Non- GFR Calc Performed By: #### L 501.0900, L500.2500 ####[facility] [address] [place], [address] Glucose [Mass/Vol] 105 mg/dL Normal 74-106 [facility] Comment on above: Result Comment: Fast ing Glucose result from 100 to 125 mg/dLsuggests IMPAIRED HOMEOSTASIS per A.D.A. criteria. Performed By: #### L 501.0900, L500.2500 ####[facility] [address] [place], [address] Potassium [Moles/Vol] 3.8 mmol/L Normal 3.5-5.1 [facility] Comment on above: Performed By: #### L 501.0900, L500.2500 ####[facility] [address] [place], [address] Sodium [Moles/Vol] 140 mmol/L Normal 136-145 [facility] Comment on above: Performed By: #### L 501.0900, L500.2500 ####[facility] [address] [place], [address] Urea nitrogen [Mass/Vol] 92 mg/dL High 7-18 [facility] Comment on above: Performed By: #### L 501.0900, L500.2500 ####[facility] [address] [place], [address] Cardiology Visit Reporton Cardiology Visit Report Normal [facility] Protein+Creatinine Ratio,Uri neon 07-26-2024 PROT:CRE RATIO 368 mg/g CRE High 0-200 [facility] Comment on above: Performed By: #### L 501.0900, L500.2500 ####[facility] [address] [place], [address] Protein (U) [Mass/Vol] 22.4 mg/dL High <11.9 [facility] Comment on above: Performed By: #### L 501.0900, L500.2500 ####[facility] [address] [place], [address] UR CREAT 60.80 mg/dL Normal NO RANGE EST. [facility] Comment on above: Performed By: #### L 501.0900, L500.2500 ####[facility] [address] [place], [address] Blood manual differential co mment interpretation (narrative result)Ordered By: Felipe Trivedi on 07-19-2024 Manual differential comment Rafal (Bld) [Interp] SCANNED [facility] CBC W/Diff, Automatedon 06-26 MACROCYTOSIS 1+ Normal [facility] Comment on above: Performed By: #### L 504.2610, L500.4050, L503.6030, L503.6550, L100.0100 ####[facility] [address] [place], [address] Anisocytosis Ql (Bld) 2+ Normal [facility] Comment on above: Performed By: #### L 504.2610, L500.4050, L503.6030, L503.6550, L100.0100 ####[facility] [address] [place], [address] SMEAR COMMENT SCANNED Normal [facility] Comment on above: Performed By: #### L 504.2610, L500.4050, L503.6030, L503.6550, L100.0100 ####[facility] [address] [place], [address] Comprehensive Metabolic Prof [facility] 07-19-2024 Albumin [Mass/Vol] 3.8 g/dL Normal 3.2-5.0 [facility] Comment on above: Order Comment: 1 Performed By: #### L 504.2610, L500.4050, L503.6030, L503.6550, L100.0100 ####[facility] [address] [place], [address] Albumin/Globulin [Mass ratio] 1.0 {ratio} Normal 0.9-2.4 [facility] Comment on above: Order Comment: 1 Performed By: #### L 504.2610, L500.4050, L503.6030, L503.6550, L100.0100 ####[facility] [address] [place], [address] ALK P 103 U/L Normal 45-117 [facility] Comment on above: Order Comment: 1 Performed By: #### L 504.2610, L500.4050, L503.6030, L503.6550, L100.0100 ####[facility] [address] [place], [address] ALT [Catalytic activity/Vol] 27 U/L Normal 16-61 [facility] Comment on above: Order Comment: 1 Performed By: #### L 504.2610, L500.4050, L503.6030, L503.6550, L100.0100 ####[facility] [address] [place], [address] AST [Catalytic activity/Vol] 11 U/L Low 15-37 [facility] Comment on above: Order Comment: 1 Performed By: #### L 504.2610, L500.4050, L503.6030, L503.6550, L100.0100 ####[facility] [address] [place], [address] Bilirubin [Mass/Vol] 0.60 mg/dL Normal 0.20-1.00 [facility] Comment on above: Order Comment: 1 Result Comment: For patients on eltrombopag therapy, use of Dimension Sullivan TBIL is not recommended. Performed By: #### L 504.2610, L500.4050, L503.6030, L503.6550, L100.0100 ####[facility] [address] [place], [address] BUN/CRE 21.2 RATIO High 10-20 [facility] Comment on above: Order Comment: 1 Performed By: #### L 504.2610, L500.4050, L503.6030, L503.6550, L100.0100 ####[facility] [address] [place], [address] CA,Total 9.2 mg/dL Normal 8.5-10.1 [facility] Comment on above: Order Comment: 1 Performed By: #### L 504.2610, L500.4050, L503.6030, L503.6550, L100.0100 ####[facility] [address] [place], [address] Chloride [Moles/Vol] 110 mmol/L High 98-107 [facility] Comment on above: Order Comment: 1 Performed By: #### L 504.2610, L500.4050, L503.6030, L503.6550, L100.0100 ####[facility] [address] [place], [address] CO2 [Moles/Vol] 24.0 mmol/L Normal 21.0-32.0 [facility] Comment on above: Order Comment: 1 Performed By: #### L 504.2610, L500.4050, L503.6030, L503.6550, L100.0100 ####[facility] [address] [place], [address] Creatinine [Mass/Vol] 3.02 mg/dL High 0.70-1.30 [facility] Comment on above: Order Comment: 1 Result Comment: The validity of the calculated GFR GFRAA in patients over70 years has not been determined. Clinical correlation isessential. Performed By: #### L 504.2610, L500.4050, L503.6030, L503.6550, L100.0100 ####[facility] [address] [place], [address] ECRCL 15.53 ml/min Normal [facility] Comment on above: Order Comment: 1 Performed By: #### L 504.2610, L500.4050, L503.6030, L503.6550, L100.0100 ####[facility] [address] [place], [address] EST GFR - AA 25 mL/min Low >60 [facility] Comment on above: Order Comment: 1 Result Comment: Afri can Bhutanese GFR Calc Performed By: #### L 504.2610, L500.4050, L503.6030, L503.6550, L100.0100 ####[facility] [address] [place], [address] GAP 8 Normal 5-15 [facility] Comment on above: Order Comment: 1 Performed By: #### L 504.2610, L500.4050, L503.6030, L503.6550, L100.0100 ####[facility] [address] [place], [address] GFR/1.73 sq M.predicted among non-blacks MDRD (S/P/Bld) [Vol rate/Area] 21 mL/min/{1.73_m2} Low >60 [facility] Comment on above: Order Comment: 1 Result Comment: Non- GFR Calc Performed By: #### L 504.2610, L500.4050, L503.6030, L503.6550, L100.0100 ####[facility] [address] [place], [address] Globulin (S) [Mass/Vol] 3.7 g/dL Normal 2.2-4.2 [facility] Comment on above: Order Comment: 1 Performed By: #### L 504.2610, L500.4050, L503.6030, L503.6550, L100.0100 ####[facility] [address] [place], [address] Glucose [Mass/Vol] 105 mg/dL Normal 74-106 [facility] Comment on above: Order Comment: 1 Result Comment: Fast ing Glucose result from 100 to 125 mg/dLsuggests IMPAIRED HOMEOSTASIS per A.D.A. criteria. Performed By: #### L 504.2610, L500.4050, L503.6030, L503.6550, L100.0100 ####[facility] [address] [place], [address] Potassium [Moles/Vol] 3.4 mmol/L Low 3.5-5.1 [facility] Comment on above: Order Comment: 1 Performed By: #### L 504.2610, L500.4050, L503.6030, L503.6550, L100.0100 ####[facility] [address] [place], [address] Sodium [Moles/Vol] 142 mmol/L Normal 136-145 [facility] Comment on above: Order Comment: 1 Performed By: #### L 504.2610, L500.4050, L503.6030, L503.6550, L100.0100 ####[facility] [address] [place], [address] T PROT 7.5 g/dL Normal 6.4-8.2 [facility] Comment on above: Order Comment: 1 Performed By: #### L 504.2610, L500.4050, L503.6030, L503.6550, L100.0100 ####[facility] [address] [place], [address] Urea nitrogen [Mass/Vol] 64 mg/dL High 7-18 [facility] Comment on above: Order Comment: 1 Performed By: #### L 504.2610, L500.4050, L503.6030, L503.6550, L100.0100 ####[facility] [address] [place], [address] Ferritinon 07-19-2024 Ferritin [Mass/Vol] 96 ng/mL Normal 26-388 [facility] Comment on above: Order Comment: 1 Performed By: #### L 504.2610, L500.4050, L503.6030, L503.6550, L100.0100 ####[facility] [address] [place], [address] Iron+Iron Binding Capacityon 07-19-2024 Iron [Mass/Vol] 58 ug/dL Low 65-175 [facility] Comment on above: Order Comment: 1 Performed By: #### L 504.2610, L500.4050, L503.6030, L503.6550, L100.0100 ####[facility] [address] [place], [address] IRON SATURATION 20.9 Normal 15.0-55.0 [facility] Comment on above: Order Comment: 1 Performed By: #### L 504.2610, L500.4050, L503.6030, L503.6550, L100.0100 ####[facility] [address] [place], [address] TIBC 278 ug/dL Normal 250-450 [facility] Comment on above: Order Comment: 1 Performed By: #### L 504.2610, L500.4050, L503.6030, L503.6550, L100.0100 ####[facility] [address] [place], [address] LDHon 07-19-2024 LDH 212 U/L Normal 87-241 [facility] Comment on above: Order Comment: 1 Performed By: #### L 504.2610, L500.4050, L503.6030, L503.6550, L100.0100 ####[facility] [address] [place], [address] Macrocytes Ql (Bld)Ordered B y: Felipe Trivedi on 07-19-2024 Macrocytosis 1+ [facility] Macrocytes detectionOrdered By: Felipe Trivedi on 07-19-2024 Macrocytes Ql (Bld) 1+ [facility] Manual differential comment Rafal (Bld) [Interp]Ordered By: Felipe Trivedi on 07-19-2024 Differential Comment SCANNED [facility] Oncology Visit Reporton 06-26 Oncology Visit Report Normal [facility] Basic Metabolic Profile (BMP )on 07-17-2024 BUN/CRE 18.0 RATIO Normal 10-20 [facility] Comment on above: Performed By: #### L 500.2500 ####[facility] [address] [place], [address] CA,Total 9.7 mg/dL Normal 8.5-10.1 [facility] Comment on above: Performed By: #### L 500.2500 ####[facility] [address] [place], [address] Chloride [Moles/Vol] 108 mmol/L High 98-107 [facility] Comment on above: Performed By: #### L 500.2500 ####[facility] [address] [place], [address] CO2 [Moles/Vol] 26.0 mmol/L Normal 21.0-32.0 [facility] Comment on above: Performed By: #### L 500.2500 ####[facility] [address] [place], [address] Creatinine [Mass/Vol] 2.22 mg/dL High 0.70-1.30 [facility] Comment on above: Result Comment: The validity of the calculated GFR GFRAA in patients over70 years has not been determined. Clinical correlation isessential. Performed By: #### L 500.2500 ####[facility] [address] [place], [address] ECRCL 20.36 ml/min Normal [facility] Comment on above: Performed By: #### L 500.2500 ####[facility] [address] [place], [address] EST GFR - AA 36 mL/min Low >60 [facility] Comment on above: Result Comment: Afri can Bhutanese GFR Calc Performed By: #### L 500.2500 ####[facility] [address] [place], [address] GAP 9 Normal 5-15 [facility] Comment on above: Performed By: #### L 500.2500 ####[facility] [address] [place], [address] GFR/1.73 sq M.predicted among non-blacks MDRD (S/P/Bld) [Vol rate/Area] 30 mL/min/{1.73_m2} Low >60 [facility] Comment on above: Result Comment: Non- GFR Calc Performed By: #### L 500.2500 ####[facility] [address] [place], [address] Glucose [Mass/Vol] 110 mg/dL High 74-106 [facility] Comment on above: Result Comment: Fast ing Glucose result from 100 to 125 mg/dLsuggests IMPAIRED HOMEOSTASIS per A.D.A. criteria. Performed By: #### L 500.2500 ####[facility] [address] [place], [address] Potassium [Moles/Vol] 3.3 mmol/L Low 3.5-5.1 [facility] Comment on above: Performed By: #### L 500.2500 ####[facility] [address] [place], [address] Sodium [Moles/Vol] 143 mmol/L Normal 136-145 [facility] Comment on above: Performed By: #### L 500.2500 ####[facility] [facility] [address] [place], [address] Urea nitrogen [Mass/Vol] 40 mg/dL High 7-18 [facility] Comment on above: Performed By: #### L 500.2500 ####[facility] [address] [place], [address] Magnesiumon 07-17-2024 Magnesium [Mass/Vol] 2.2 mg/dL Normal 1.6-2.6 [facility] Comment on above: Performed By: #### L 501.5200 ####[facility] [address] [place], [address] CBC W/Diff, Automatedon 09-2 -2023 Absolute Lymph 0.68 X10 3/uL Low 0.83-4.51 [facility] Comment on above: Performed By: #### L 501.9520, L100.0100, L500.4050, L500.4100 ####[facility] [address] [place], [address] Absolute Neut 3.0 X10 3/uL Normal 2.0-7.7 [facility] Comment on above: Performed By: #### L 501.9520, L100.0100, L500.4050, L500.4100 ####[facility] [address] [place], [address] Basophils/100 WBC (Bld) 0.9 % Normal 0-1 [facility] Comment on above: Performed By: #### L 501.9520, L100.0100, L500.4050, L500.4100 ####[facility] [address] [place], [address] Eosinophils/100 WBC (Bld) 3.5 % Normal 0-5 [facility] Comment on above: Performed By: #### L 501.9520, L100.0100, L500.4050, L500.4100 ####[facility] [address] [place], [address] Erythrocyte distribution width (RBC) [Ratio] 17.2 % High 11.6-14.6 [facility] Comment on above: Performed By: #### L 501.9520, L100.0100, L500.4050, L500.4100 ####[facility] [address] [place], [address] Hematocrit (Bld) [Volume fraction] 33.2 % Low 40-54 [facility] Comment on above: Performed By: #### L 501.9520, L100.0100, L500.4050, L500.4100 ####[facility] [address] [place], [address] Hemoglobin (Bld) [Mass/Vol] 10.5 g/dL Low 13.0-16.5 [facility] Comment on above: Performed By: #### L 501.9520, L100.0100, L500.4050, L500.4100 ####[facility] [address] [place], [address] IG% 0.200 Normal 0.0-0.9 [facility] Comment on above: Result Comment: IG% - Immature Granulocytes (promyelocytes, myelocytes andmetamyelocytes) > 1% indicates that a LEFT SHIFT is Present. Performed By: #### L 501.9520, L100.0100, L500.4050, L500.4100 ####[facility] [address] [place], [address] Lymphocytes/100 WBC (Bld) 16.0 % Low 19-41 [facility] Comment on above: Performed By: #### L 501.9520, L100.0100, L500.4050, L500.4100 ####[facility] [address] [place], [address] MCH (RBC) [Entitic mass] 33.9 pg High 27.0-32.0 [facility] Comment on above: Performed By: #### L 501.9520, L100.0100, L500.4050, L500.4100 ####[facility] [address] [place], [address] MCHC (RBC) [Mass/Vol] 31.6 g/dL Low 32-36 [facility] Comment on above: Performed By: #### L 501.9520, L100.0100, L500.4050, L500.4100 ####[facility] [address] [place], [address] MCV (RBC) [Entitic vol] 107.1 fL High 80-94 [facility] Comment on above: Performed By: #### L 501.9520, L100.0100, L500.4050, L500.4100 ####[facility] [address] [place], [address] Monocytes/100 WBC (Bld) 9.4 % Normal 0-10 [facility] Comment on above: Performed By: #### L 501.9520, L100.0100, L500.4050, L500.4100 ####[facility] [address] [place], [address] Neutrophils/100 WBC (Bld) 70.0 % Normal 47-70 [facility] Comment on above: Performed By: #### L 501.9520, L100.0100, L500.4050, L500.4100 ####[facility] [address] [place], [address] Nucleated RBC (Bld) [#/Vol] 0 10*3/uL Normal 0-5 [facility] Comment on above: Performed By: #### L 501.9520, L100.0100, L500.4050, L500.4100 ####[facility] [address] [place], [address] Platelet mean volume (Bld) [Entitic vol] 10.5 fL Normal 6.2-12.0 [facility] Comment on above: Performed By: #### L 501.9520, L100.0100, L500.4050, L500.4100 ####[facility] [address] [place], [address] Platelets (Bld) [#/Vol] 150 10*3/uL Normal 150-450 [facility] Comment on above: Performed By: #### L 501.9520, L100.0100, L500.4050, L500.4100 ####[facility] [address] [place], [address] RBC (Bld) [#/Vol] 3.10 10*6/uL Low 4.6-6.2 [facility] Comment on above: Performed By: #### L 501.9520, L100.0100, L500.4050, L500.4100 ####[facility] [address] [place], [address] RDW SD 67.6 fl High 35.1-43.9 [facility] Comment on above: Performed By: #### L 501.9520, L100.0100, L500.4050, L500.4100 ####[facility] [address] [place], [address] WBC (Bld) [#/Vol] 4.2 10*3/uL Low 4.4-11.0 [facility] Comment on above: Performed By: #### L 501.9520, L100.0100, L500.4050, L500.4100 ####[facility] [address] [place], [address] Comprehensive Metabolic Prof [facility] 07-16-2024 Albumin [Mass/Vol] 3.8 g/dL Normal 3.2-5.0 [facility] Comment on above: Performed By: #### L 501.9520, L100.0100, L500.4050, L500.4100 ####[facility] [address] [place], [address] Albumin/Globulin [Mass ratio] 1.3 {ratio} Normal 0.9-2.4 [facility] Comment on above: Performed By: #### L 501.9520, L100.0100, L500.4050, L500.4100 ####[facility] [address] [place], [address] ALK P 96 U/L Normal 45-117 [facility] Comment on above: Performed By: #### L 501.9520, L100.0100, L500.4050, L500.4100 ####[facility] [address] [place], [address] ALT [Catalytic activity/Vol] 26 U/L Normal 16-61 [facility] Comment on above: Performed By: #### L 501.9520, L100.0100, L500.4050, L500.4100 ####[facility] [address] [place], [address] AST [Catalytic activity/Vol] 16 U/L Normal 15-37 [facility] Comment on above: Performed By: #### L 501.9520, L100.0100, L500.4050, L500.4100 ####[facility] [address] [place], [address] Bilirubin [Mass/Vol] 1.40 mg/dL High 0.20-1.00 [facility] Comment on above: Result Comment: For patients on eltrombopag therapy, use of Dimension Sullivan TBIL is not recommended. Performed By: #### L 501.9520, L100.0100, L500.4050, L500.4100 ####[facility] [address] [place], [address] BUN/CRE 19.9 RATIO Normal 10-20 [facility] Comment on above: Performed By: #### L 501.9520, L100.0100, L500.4050, L500.4100 ####[facility] [address] [place], [address] CA,Total 9.0 mg/dL Normal 8.5-10.1 [facility] Comment on above: Performed By: #### L 501.9520, L100.0100, L500.4050, L500.4100 ####[facility] [address] [place], [address] Chloride [Moles/Vol] 112 mmol/L High 98-107 [facility] Comment on above: Performed By: #### L 501.9520, L100.0100, L500.4050, L500.4100 ####[facility] [address] [place], [address] CO2 [Moles/Vol] 21.0 mmol/L Normal 21.0-32.0 [facility] Comment on above: Performed By: #### L 501.9520, L100.0100, L500.4050, L500.4100 ####[facility] [address] [place], [address] Creatinine [Mass/Vol] 2.01 mg/dL High 0.70-1.30 [facility] Comment on above: Result Comment: The validity of the calculated GFR GFRAA in patients over70 years has not been determined. Clinical correlation isessential. Performed By: #### L 501.9520, L100.0100, L500.4050, L500.4100 ####[facility] [address] [place], [address] ECRCL 23.11 ml/min Normal [facility] Comment on above: Performed By: #### L 501.9520, L100.0100, L500.4050, L500.4100 ####[facility] [address] [place], [address] EST GFR - AA 41 mL/min Low >60 [facility] Comment on above: Result Comment: Afri can Bhutanese GFR Calc Performed By: #### L 501.9520, L100.0100, L500.4050, L500.4100 ####[facility] [address] [place], [address] GAP 10 Normal 5-15 [facility] Comment on above: Performed By: #### L 501.9520, L100.0100, L500.4050, L500.4100 ####[facility] [address] [place], [address] GFR/1.73 sq M.predicted among non-blacks MDRD (S/P/Bld) [Vol rate/Area] 34 mL/min/{1.73_m2} Low >60 [facility] Comment on above: Result Comment: Non- GFR Calc Performed By: #### L 501.9520, L100.0100, L500.4050, L500.4100 ####[facility] [address] [place], [address] Globulin (S) [Mass/Vol] 3.0 g/dL Normal 2.2-4.2 [facility] Comment on above: Performed By: #### L 501.9520, L100.0100, L500.4050, L500.4100 ####[facility] [address] [place], [address] Glucose [Mass/Vol] 102 mg/dL Normal 74-106 [facility] Comment on above: Result Comment: Fast ing Glucose result from 100 to 125 mg/dLsuggests IMPAIRED HOMEOSTASIS per A.D.A. criteria. Performed By: #### L 501.9520, L100.0100, L500.4050, L500.4100 ####[facility] [address] [place], [address] Potassium [Moles/Vol] 3.2 mmol/L Low 3.5-5.1 [facility] Comment on above: Performed By: #### L 501.9520, L100.0100, L500.4050, L500.4100 ####[facility] [address] [place], [address] Sodium [Moles/Vol] 143 mmol/L Normal 136-145 [facility] Comment on above: Performed By: #### L 501.9520, L100.0100, L500.4050, L500.4100 ####[facility] [address] [place], [address] T PROT 6.8 g/dL Normal 6.4-8.2 [facility] Comment on above: Performed By: #### L 501.9520, L100.0100, L500.4050, L500.4100 ####[facility] [address] [place], [address] Urea nitrogen [Mass/Vol] 40 mg/dL High 7-18 [facility] Comment on above: Performed By: #### L 501.9520, L100.0100, L500.4050, L500.4100 ####[facility] [address] [place], [address] Lipid Profileon 07-16-2024 Cholesterol [Mass/Vol] 95 mg/dL Normal 200 [facility] Comment on above: Result Comment: <200 mg/dL Desirable 200-240 mg/dL Borderline >240 mg/dL High Risk Performed By: #### L 501.9520, L100.0100, L500.4050, L500.4100 ####[facility] [address] [place], [address] Cholesterol in HDL [Mass/Vol] 35 mg/dL Low [facility] Comment on above: Result Comment: The drugs N-Acetylcysteine and Metamizole may falselydepress this assay. Reference Range HDL <40 mg/dL Low HDL Cholesterol HDL >or= 60 mg/dL High HDL Cholesterol Performed By: #### L 501.9520, L100.0100, L500.4050, L500.4100 ####[facility] [address] [place], [address] Cholesterol in LDL [Mass/Vol] 45 mg/dL Normal 0-130 [facility] Comment on above: Performed By: #### L 501.9520, L100.0100, L500.4050, L500.4100 ####[facility] [address] [place], [address] Cholesterol in VLDL [Mass/Vol] 15 mg/dL Normal 5-40 [facility] Comment on above: Performed By: #### L 501.9520, L100.0100, L500.4050, L500.4100 ####[facility] [address] [place], [address] Triglyceride [Mass/Vol] 74 mg/dL Normal [facility] Comment on above: Result Comment: The drugs N-Acetylcysteine and Metamizole may falselydepress this assay.Serum Triglycerides Reference Interval Normal <150 mg/dL Borderline high 150 - 199 mg/dL High 200 - 499 mg/dL Very High > or = 500 mg/dL Performed By: #### L 501.9520, L100.0100, L500.4050, L500.4100 ####[facility] [address] [place], [address] Thyroid Stim Hormone (TSH)on 07-16-2024 TSH 2.670 uIU/mL Normal 0.358-3.74 0 [facility] Comment on above: Performed By: #### L 501.9520, L100.0100, L500.4050, L500.4100 ####[facility] [address] [place], [address] 12 Lead EKGon 07-15-2024 12 Lead EKG Normal [facility] Basic Metabolic Profile (BMP )on 07-15-2024 BUN/CRE 19.6 RATIO Normal 10-20 [facility] Comment on above: Order Comment: 1Y Performed By: #### L 100.0100, L500.2500, L501.5425 ####[facility] [address] [place], [address] CA,Total 9.0 mg/dL Normal 8.5-10.1 [facility] Comment on above: Order Comment: 1Y Performed By: #### L 100.0100, L500.2500, L501.5425 ####[facility] [address] [place], [address] Chloride [Moles/Vol] 113 mmol/L High 98-107 [facility] Comment on above: Order Comment: 1Y Performed By: #### L 100.0100, L500.2500, L501.5425 ####[facility] [address] [place], [address] CO2 [Moles/Vol] 21.0 mmol/L Normal 21.0-32.0 [facility] Comment on above: Order Comment: 1Y Performed By: #### L 100.0100, L500.2500, L501.5425 ####[facility] [address] [place], [address] Creatinine [Mass/Vol] 2.04 mg/dL High 0.70-1.30 [facility] Comment on above: Order Comment: 1Y Result Comment: The validity of the calculated GFR GFRAA in patients over70 years has not been determined. Clinical correlation isessential. Performed By: #### L 100.0100, L500.2500, L501.5425 ####[facility] [address] [place], [address] ECRCL 23.95 ml/min Normal [facility] Comment on above: Order Comment: 1Y Performed By: #### L 100.0100, L500.2500, L501.5425 ####[facility] [address] [place], [address] EST GFR - AA 40 mL/min Low >60 [facility] Comment on above: Order Comment: 1Y Result Comment: Afri can Bhutanese GFR Calc Performed By: #### L 100.0100, L500.2500, L501.5425 ####[facility] [address] [place], [address] GAP 9 Normal 5-15 [facility] Comment on above: Order Comment: 1Y Performed By: #### L 100.0100, L500.2500, L501.5425 ####[facility] [address] [place], [address] GFR/1.73 sq M.predicted among non-blacks MDRD (S/P/Bld) [Vol rate/Area] 33 mL/min/{1.73_m2} Low >60 [facility] Comment on above: Order Comment: 1Y Result Comment: Non- GFR Calc Performed By: #### L 100.0100, L500.2500, L5.5425 ####[facility] [address] [place], [address] Glucose [Mass/Vol] 144 mg/dL High 74-106 [facility] Comment on above: Order Comment: 1Y Result Comment: Fast ing Glucose result greater than or equal to 126 mg/dLsuggests DIABETES MELLITUS per A.D.A. criteria. Performed By: #### L 100.0100, L500.2500, L501.5425 ####[facility] [address] [place], [address] Potassium [Moles/Vol] 3.3 mmol/L Low 3.5-5.1 [facility] Comment on above: Order Comment: 1Y Performed By: #### L 100.0100, L500.2500, L501.5425 ####[facility] [address] [place], [address] Sodium [Moles/Vol] 143 mmol/L Normal 136-145 [facility] Comment on above: Order Comment: 1Y Performed By: #### L 100.0100, L500.2500, L501.5425 ####[facility] [address] [place], [address] Urea nitrogen [Mass/Vol] 40 mg/dL High 7-18 [facility] Comment on above: Order Comment: 1Y Performed By: #### L 100.0100, L500.2500, L501.5425 ####[facility] [address] [place], [address] CBC W/Diff, Automatedon - Anisocytosis Ql (Bld) 1+ Normal [facility] Comment on above: Performed By: #### L 100.0100, L500.2500, L501.5425 ####[facility] [address] [place], [address] CRENATED RBC 1+ Normal [facility] Comment on above: Performed By: #### L 100.0100, L500.2500, L501.5425 ####[facility] [address] [place], [address] SMEAR COMMENT SCANNED Normal [facility] Comment on above: Performed By: #### L 100.0100, L500.2500, L501.5425 ####[facility] [address] [place], [address] Chest PA and Lateralon 07-15 Chest PA and Lateral Normal [facility] Echo Completeon 07-15-2024 Echo Complete Normal [facility] Emergency Department Summary on 07-15-2024 Emergency Department Summary Normal [facility] H AND P Exam - Hospitaliston 07-15-2024 H&P Exam - Hospitalist Normal [facility] L501.4020on 07-15-2024 TROPONIN-I HS 96 pg/mL High 3.0-78.0 [facility] Comment on above: Order Comment: 'TROP ' Serial specimen #1, #2 or #3: 3 Result Comment: Plea se Note: New Test Units and Gender Specific Reference Ranges. For more information see Policy Stat Procedure Sullivan High Sensitivity Troponin (TNIH) and attachments. Performed By: #### L 501.4020 ####[facility] [address] [place], [address] TROPONIN-I HS 46 pg/mL Normal 3.0-78.0 [facility] Comment on above: Result Comment: Plea se Note: New Test Units and Gender Specific Reference Ranges. For more information see Policy Stat Procedure Sullivan High Sensitivity Troponin (TNIH) and attachments. Performed By: #### L 501.4020 ####[facility] [address] [place], [address] L501.5425on 07-15-2024 TROPONIN-I HS 47 pg/mL Normal 3.0-78.0 [facility] Comment on above: Order Comment: 1Y Result Comment: Plea se Note: New Test Units and Gender Specific Reference Ranges. For more information see Policy Stat Procedure Sullivan High Sensitivity Troponin (TNIH) and attachments. Performed By: #### L 100.0100, L500.2500, L501.5425 ####[facility] [address] [place], [address] Magnesiumon 07-15-2024 Magnesium [Mass/Vol] 1.2 mg/dL Low 1.6-2.6 [facility] Comment on above: Order Comment: Comme nts: may add to ED labs Performed By: #### L 501.5200 ####[facility] [address] [place], [address] CBC W/Diff, Automatedon 06-25 PATH REV Reviewed Normal [facility] Comment on above: Result Comment: Panc ytopenia.LeukopeniaMacrocytic anemia.MILD Thrombocytopenia.Clinical correlation necessary.David Guerrero M.D. 07/13/24 AMENDED REPORT 07/13/24 1508 PATH REV previously reported as: Daniela roman Performed By: #### L 100.0100 ####[facility] [address] [place], [address] Lipid Profileon 07-13-2024 Cholesterol [Mass/Vol] 107 mg/dL Normal 200 [facility] Comment on above: Result Comment: <200 mg/dL Desirable 200-240 mg/dL Borderline >240 mg/dL High Risk Performed By: #### L 500.4100, L500.3400 ####[facility] [address] [place], [address] Cholesterol in HDL [Mass/Vol] 39 mg/dL Low [facility] Comment on above: Result Comment: The drugs N-Acetylcysteine and Metamizole may falselydepress this assay. Reference Range HDL <40 mg/dL Low HDL Cholesterol HDL >or= 60 mg/dL High HDL Cholesterol Performed By: #### L 500.4100, L500.3400 ####[facility] [address] [place], [address] Cholesterol in LDL [Mass/Vol] 55 mg/dL Normal 0-130 [facility] Comment on above: Performed By: #### L 500.4100, L500.3400 ####[facility] [address] [place], [address] Cholesterol in VLDL [Mass/Vol] 13 mg/dL Normal 5-40 [facility] Comment on above: Performed By: #### L 500.4100, L500.3400 ####[facility] [address] [place], [address] Triglyceride [Mass/Vol] 64 mg/dL Normal [facility] Comment on above: Result Comment: The drugs N-Acetylcysteine and Metamizole may falselydepress this assay.Serum Triglycerides Reference Interval Normal <150 mg/dL Borderline high 150 - 199 mg/dL High 200 - 499 mg/dL Very High > or = 500 mg/dL Performed By: #### L 500.4100, L500.3400 ####[facility] [address] [place], [address] Liver Profileon 07-13-2024 Albumin [Mass/Vol] 3.9 g/dL Normal 3.2-5.0 [facility] Comment on above: Performed By: #### L 500.4100, L500.3400 ####[facility] [address] [place], [address] ALK P 104 U/L Normal 45-117 [facility] Comment on above: Performed By: #### L 500.4100, L500.3400 ####[facility] [address] [place], [address] ALT [Catalytic activity/Vol] 32 U/L Normal 16-61 [facility] Comment on above: Performed By: #### L 500.4100, L500.3400 ####[facility] [address] [place], [address] AST [Catalytic activity/Vol] 19 U/L Normal 15-37 [facility] Comment on above: Performed By: #### L 500.4100, L500.3400 ####[facility] [address] [place], [address] Bilirubin [Mass/Vol] 1.00 mg/dL Normal 0.20-1.00 [facility] Comment on above: Result Comment: For patients on eltrombopag therapy, use of Dimension Sullivan TBIL is not recommended. Performed By: #### L 500.4100, L500.3400 ####[facility] [address] [place], [address] Bilirubin.direct [Mass/Vol] 0.35 mg/dL High 0.00-0.30 [facility] Comment on above: Performed By: #### L 500.4100, L500.3400 ####[facility] [address] [place], [address] Globulin (S) [Mass/Vol] 3.5 g/dL Normal 2.2-4.2 [facility] Comment on above: Performed By: #### L 500.4100, L500.3400 ####[facility] [address] [place], [address] T PROT 7.4 g/dL Normal 6.4-8.2 [facility] Comment on above: Performed By: #### L 500.4100, L500.3400 ####[facility] [address] [place], [address] Acanthocyte detectionOrdered By: Felipe Trivedi on 07-12-2024 Acanthocytes 1+ [facility] Bite cells LM Ql (Bld)Ordere d By: Felipe Trivedi on 07-12-2024 Bite Cells 1+ [facility] Bite cells detectionOrdered By: Felipe Trivedi on 07-12-2024 Bite cells LM Ql (Bld) 1+ [facility] Blood schistocyte detection by light microscopyOrdered By: Felipe Trivedi on 07-12-2024 Schistocytes LM Ql (Bld) 2+ High [facility] Dacrocytes LM Ql (Bld)Ordere d By: Felipe Trivedi on 07-12-2024 Tear Drop Cells 1+ [facility] Microcytosis evaluation pane lOrdered By: Felipe Trivedi on 07-12-2024 Microcytosis 1+ [facility] Ovalocyte detectionOrdered B y: Felipe Trivedi on 07-12-2024 Ovalocytes LM Ql (Bld) 2+ [facility] Ovalocytes LM Ql (Bld)Ordere d By: Felipe Trivedi on 07-12-2024 Ovalocytes 2+ [facility] Pathologist review Rafal (Unsp spec) [Interp]Ordered By: Felipe Trivedi on 07-12-2024 Differential Pathologist's Review Reviewed [facility] Comment on above: Previous reported re sult: Daniela roman Edited by: JASSON on 07/13/24:1508Pancytopenia.LeukopeniaMacrocytic anemia.MILD Thrombocytopenia.Clinical correlation necessary.David Guerrero M.D. 07/13/24 AMENDED REPORT 07/13/24 1508 PATH REV previously reported as: Daniela roman Platelet estimateOrdered By: Felipe Trivedi on 07-12-2024 Platelets LM Ql (Bld) SLT DEC ADEQ [facility] Platelets LM Ql (Bld)Ordered By: Felipe Trivedi on 07-12-2024 Platelet Estimate SLT DEC ADEQ [facility] Review by pathologistOrdered By: Felipe Trivedi on 07-12-2024 Pathologist review Rafal (Unsp spec) [Interp] Reviewed [facility] Comment on above: Previous reported re sult: Daniela roman Edited by: JASSON on 07/13/24:1508Pancytopenia.LeukopeniaMacrocytic anemia.MILD Thrombocytopenia.Clinical correlation necessary.David Guerrero M.D. 07/13/24 AMENDED REPORT 07/13/24 1508 PATH REV previously reported as: Daniela abel Schistocytes LM Ql (Bld)Orde red By: Felipe Trivedi on 07-12-2024 Schistocytes 2+ High [facility] Teardrop cell detectionOrder ed By: Felipe Trivedi on 07-12-2024 Dacrocytes LM Ql (Bld) 1+ [facility] CBC W/Diff, Automatedon 06-25 MACROCYTOSIS 1+ Normal [facility] Comment on above: Performed By: #### L 100.0100 ####[facility] [address] [place], [address] MICROCYTIC 1+ Normal [facility] Comment on above: Performed By: #### L 100.0100 ####[facility] [address] [place], [address] Anisocytosis Ql (Bld) 2+ Normal [facility] Comment on above: Performed By: #### L 100.0100 ####[facility] [address] [place], [address] SMEAR COMMENT SCANNED Normal [facility] Comment on above: Performed By: #### L 100.0100 ####[facility] [address] [place], [address] CBC-Complete Blood Cnt No Di ffon 07-05-2024 Erythrocyte distribution width (RBC) [Ratio] 18.6 % High 11.6-14.6 [facility] Comment on above: Performed By: #### L 503.6030, L500.3600, L100.0500, L503.6550, L100.4500 ####[facility] [address] [place], [address] Hematocrit (Bld) [Volume fraction] 32.2 % Low 40-54 [facility] Comment on above: Performed By: #### L 503.6030, L500.3600, L100.0500, L503.6550, L100.4500 ####[facility] [address] [place], [address] Hemoglobin (Bld) [Mass/Vol] 10.0 g/dL Low 13.0-16.5 [facility] Comment on above: Performed By: #### L 503.6030, L500.3600, L100.0500, L503.6550, L100.4500 ####[facility] [address] [place], [address] MCH (RBC) [Entitic mass] 34.1 pg High 27.0-32.0 [facility] Comment on above: Performed By: #### L 503.6030, L500.3600, L100.0500, L503.6550, L100.4500 ####[facility] [address] [place], [address] MCHC (RBC) [Mass/Vol] 31.1 g/dL Low 32-36 [facility] Comment on above: Performed By: #### L 503.6030, L500.3600, L100.0500, L503.6550, L100.4500 ####[facility] [address] [place], [address] MCV (RBC) [Entitic vol] 109.9 fL High 80-94 [facility] Comment on above: Performed By: #### L 503.6030, L500.3600, L100.0500, L503.6550, L100.4500 ####[facility] [address] [place], [address] Platelet mean volume (Bld) [Entitic vol] 10.0 fL Normal 6.2-12.0 [facility] Comment on above: Performed By: #### L 503.6030, L500.3600, L100.0500, L503.6550, L100.4500 ####[facility] [address] [place], [address] Platelets (Bld) [#/Vol] 158 10*3/uL Normal 150-450 [facility] Comment on above: Performed By: #### L 503.6030, L500.3600, L100.0500, L503.6550, L100.4500 ####[facility] [address] [place], [address] RBC (Bld) [#/Vol] 2.93 10*6/uL Low 4.6-6.2 [facility] Comment on above: Performed By: #### L 503.6030, L500.3600, L100.0500, L503.6550, L100.4500 ####[facility] [address] [place], [address] RDW SD 74.6 fl High 35.1-43.9 [facility] Comment on above: Performed By: #### L 503.6030, L500.3600, L100.0500, L503.6550, L100.4500 ####[facility] [address] [place], [address] WBC (Bld) [#/Vol] 3.8 10*3/uL Low 4.4-11.0 [facility] Comment on above: Performed By: #### L 503.6030, L500.3600, L100.0500, L503.6550, L100.4500 ####[facility] [address] [place], [address] Differential Commenton 07-05 SMEAR COMMENT SCANNED Normal [facility] Comment on above: Result Comment: 2+ A NISOCYTOSIS, 1+ OVALOCYTES Performed By: #### L 503.6030, L500.3600, L100.0500, L503.6550, L100.4500 ####[facility] [address] [place], [address] Ferritinon 07-05-2024 Ferritin [Mass/Vol] 111 ng/mL Normal 26-388 [facility] Comment on above: Performed By: #### L 503.6030, L500.3600, L100.0500, L503.6550, L100.4500 ####[facility] [address] [place], [address] Iron+Iron Binding Capacityon 07-05-2024 Iron [Mass/Vol] 61 ug/dL Low 65-175 [facility] Comment on above: Performed By: #### L 503.6030, L500.3600, L100.0500, L503.6550, L100.4500 ####[facility] [address] [place], [address] IRON SATURATION 22.7 Normal 15.0-55.0 [facility] Comment on above: Performed By: #### L 503.6030, L500.3600, L100.0500, L503.6550, L100.4500 ####[facility] [address] [place], [address] TIBC 269 ug/dL Normal 250-450 [facility] Comment on above: Performed By: #### L 503.6030, L500.3600, L100.0500, L503.6550, L100.4500 ####[facility] [address] [place], [address] Renal Profileon 07-05-2024 Albumin [Mass/Vol] 3.8 g/dL Normal 3.2-5.0 [facility] Comment on above: Performed By: #### L 503.6030, L500.3600, L100.0500, L503.6550, L100.4500 ####[facility] [address] [place], [address] BUN/CRE 21.5 RATIO High 10-20 [facility] Comment on above: Performed By: #### L 503.6030, L500.3600, L100.0500, L503.6550, L100.4500 ####[facility] [address] [place], [address] CA,Total 9.3 mg/dL Normal 8.5-10.1 [facility] Comment on above: Performed By: #### L 503.6030, L500.3600, L100.0500, L503.6550, L100.4500 ####[facility] [address] [place], [address] Chloride [Moles/Vol] 109 mmol/L High 98-107 [facility] Comment on above: Performed By: #### L 503.6030, L500.3600, L100.0500, L503.6550, L100.4500 ####[facility] [address] [place], [address] CO2 [Moles/Vol] 26.0 mmol/L Normal 21.0-32.0 [facility] Comment on above: Performed By: #### L 503.6030, L500.3600, L100.0500, L503.6550, L100.4500 ####[facility] [address] [place], [address] Creatinine [Mass/Vol] 1.95 mg/dL High 0.70-1.30 [facility] Comment on above: Result Comment: The validity of the calculated GFR GFRAA in patients over70 years has not been determined. Clinical correlation isessential. Performed By: #### L 503.6030, L500.3600, L100.0500, L503.6550, L100.4500 ####[facility] [address] [place], [address] EST GFR - AA 42 mL/min Low >60 [facility] Comment on above: Result Comment: Afri can Bhutanese GFR Calc Performed By: #### L 503.6030, L500.3600, L100.0500, L503.6550, L100.4500 ####[facility] [address] [place], [address] GFR/1.73 sq M.predicted among non-blacks MDRD (S/P/Bld) [Vol rate/Area] 35 mL/min/{1.73_m2} Low >60 [facility] Comment on above: Result Comment: Non- GFR Calc Performed By: #### L 503.6030, L500.3600, L100.0500, L503.6550, L100.4500 ####[facility] [address] [place], [address] Glucose [Mass/Vol] 103 mg/dL Normal 74-106 [facility] Comment on above: Result Comment: Fast ing Glucose result from 100 to 125 mg/dLsuggests IMPAIRED HOMEOSTASIS per A.D.A. criteria. Performed By: #### L 503.6030, L500.3600, L100.0500, L503.6550, L100.4500 ####[facility] [address] [place], [address] Phosphate [Mass/Vol] 3.7 mg/dL Normal 2.5-4.9 [facility] Comment on above: Performed By: #### L 503.6030, L500.3600, L100.0500, L503.6550, L100.4500 ####[facility] [address] [place], [address] Potassium [Moles/Vol] 3.4 mmol/L Low 3.5-5.1 [facility] Comment on above: Performed By: #### L 503.6030, L500.3600, L100.0500, L503.6550, L100.4500 ####[facility] [address] [place], [address] Sodium [Moles/Vol] 144 mmol/L Normal 136-145 [facility] Comment on above: Performed By: #### L 503.6030, L500.3600, L100.0500, L503.6550, L100.4500 ####[facility] [address] [place], [address] Urea nitrogen [Mass/Vol] 42 mg/dL High 7-18 [facility] Comment on above: Performed By: #### L 503.6030, L500.3600, L100.0500, L503.6550, L100.4500 ####[facility] [address] [place], [address] Activated partial thrombopla stin time (aPTT) in platelet poor plasma by coagulation aOrdered By: Felipe Trivedi on 05-31-2024 aPTT Coag (PPP) [Time] 54.7 s High 24.1-36.2 [facility] Addendum DocumentOrdered By: Felipe Trivedi on 05-31-2024 Serum Immunofixation Comments Comment . [facility] Comment on above: Protein electrophore sis scan will follow via computer,mail, or plastics scientist delivery. Albumin Elph [Mass/Vol]Order ed By: Felipe Trivedi on 05-31-2024 Albumin [Mass/Vol] 4.1 g/dL 2.9-4.4 [facility] Alpha 1 globulin Elph [Mass/ Vol]Ordered By: Felipe Trivedi on 05-31-2024 Gtibf-0-Horyagwpk (SONIA) 0.3 g/dL 0.0-0.4 [facility] Wnhnc-3-Tuclqhvso (SONIA) 0.8 g/dL 0.4-1.0 [facility] Beta globulin Elph [Mass/Vol ]Ordered By: Felipe Trivedi on 05-31-2024 Beta-Globulins (SONIA) 0.9 g/dL 0.7-1.3 [facility] C-reactive protein measureme nt by high sensitivity methodOrdered By: Felipe Trivedi on 05-31-2024 C-Reactive Protein Extended Range 4.83 mg/L High 0.0-3.0 [facility] Comment on above: C-Reactive Protein ( CRP) provides useful information for thediagnosis, therapy and monitoring of inflammatory processesand associated diseases. For the evaluation of Relative Riskfor Cardiovascular Disease, a High Sensitivity CRP (HSCRP)should be ordered. C-reactive protein measurement by high sensitivity method 4.83 mg/L High 0.0-3.0 [facility] Comment on above: C-Reactive Protein ( CRP) provides useful information for thediagnosis, therapy and monitoring of inflammatory processesand associated diseases. For the evaluation of Relative Riskfor Cardiovascular Disease, a High Sensitivity CRP (HSCRP)should be ordered. Deamidated gliadin IgA antib michael assayOrdered By: Felipe Trivedi on 05-31-2024 Anti-Gliadin IgA Antibody 5 units 0- [facility] Comment on above: Negative 0 - 19 Weak Positive 20 - 30 Moderate to Strong Positive >30 Deamidated gliadin IgG antib michael assayOrdered By: Felipe Trivedi on 05-31-2024 Anti-Gliadin IgG Antibody 2 units 0-19 [facility] Comment on above: Negative 0 - 19 Weak Positive 20 - 30 Moderate to Strong Positive >30 Direct serum free thyroxine (FT4) measurementOrdered By: Felipe Trivedi on 05-31-2024 Free T4 [Mass/Vol] 0.95 ng/dL 0.76-1.46 [facility] Endomysial IgA antibody assa yOrdered By: Felipe Trivedi on 05-31-2024 Endomysial IgA Antibody Negative Negative [facility] Erythrocyte sedimentation ra teOrdered By: Felipe Trivedi on 05-31-2024 ESR (Bld) [Velocity] 27 mm/h High 0-20 [facility] Erythropoietin (EPO) QnOrder ed By: Felipe Trivedi on 05-31-2024 Erythropoietin 10.2 mIU/mL 2.6-18.5 [facility] Comment on above: Ballooning [employer] el DxI 800 Immunoassay SystemValues obtained with different assay methods or kits cannotbe used interchangeably. Results cannot be interpreted asabsolute evidence of the presence or absence of malignantdisease. Gamma globulin Elph [Mass/Vo l]Ordered By: Felipe Trivedi on 05-31-2024 Gamma Globulins (SONIA) 1.4 g/dL 0.4-1.8 [facility] Gamma glutamyl transferase ( GGT) measurementOrdered By: Felipe Trivedi on 05-31-2024 Amylase [Catalytic activity/Vol] 31 U/L 0-65 [facility] Comment on above: Performed at: [address] [id number] Director: Andres Abel PhD, Phone: [phone] Hemoglobin (Reticulocytes) [ Entitic mass]Ordered By: Felipe Trivedi on 05-31-2024 Reticulocyte Hemoglobin Equivalent 36.5 pg High 30-35 [facility] IgA [Mass/Vol]Ordered By: Jayla Trivedi on 05-31-2024 Immunoglobulin A 270 mg/dL 61-437 [facility] IgG [Mass/Vol]Ordered By: Jayla Trivedi on 05-31-2024 Immunoglobulin G 1447 mg/dL 603-1613 [facility] Immature reticulocyte fracti onOrdered By: Felipe Trivedi on 05-31-2024 Immature Reticulocyte Fraction 13.00 % 3.00-15.90 [facility] Immunoglobulin M measurement Ordered By: Felipe Trivedi on 05-31-2024 Immunoglobulin M 133 mg/dL 15-143 [facility] Immunoglobulin light chains. kappa [Mass/Vol]Ordered By: Felipe Trivedi on 05-31-2024 Free Dubois Light Chains, Quant 126.1 mg/L High 3.3-19.4 [facility] Immunoglobulin light chains. kappa/Immunoglobulin light chains.lambda (S) [Mass ratio]Ordered By: Felipe Trivedi on 05-31-2024 Free Dubois/Lambda Light Chain Ratio 1.57 0.26-1.65 [facility] Comment on above: Performed at: - [facility] [address] [id number] Director: Andres Abel PhD, Phone: [phone] International normalized rat io (INR) calculationOrdered By: Felipe Trivedi on 05-31-2024 INR Coag (Bld) [Relative time] 1.5 {INR} [facility] Interpretation IEP [Interp]O rdered By: Felipe Trivedi on 05-31-2024 Immunofixation Screen Comment: . [facility] Comment on above: Presence of monoclon al protein is unclear at this time. Suggestrepeat in 3 to 6 months if clinically indicated. Interpretation of serum or p lasma protein pattern by immunofixation (narrative resultOrdered By: Felipe Trivedi on 05-31-2024 Protein Fractions Immunofixation Rafal [Interp] Not Observed g/dL Not Observed [facility] Lambda free light chain viky urementOrdered By: Felipe Trivedi on 05-31-2024 Free Lambda Light Chains, Quant 80.1 mg/L High 5.7-26.3 [facility] No Panel InformationOrdered By: Felipe Trivedi on 05-31-2024 Addendum Document Comment . [facility] Comment on above: Protein electrophore sis scan will follow via computer,mail, or plastics scientist delivery. Tissue Transglutaminase IgG Ab <2 U/mL 0-5 [facility] Comment on above: Negative 0 - 5 Weak Positive 6 - 9 Positive >9 Protein Fractions Immunofixa tion Rafal [Interp]Ordered By: Felipe Trivedi on 05-31-2024 M-Guerrero (SONIA) Not Observed g/dL Not Observed [facility] Prothrombin timeOrdered By: Felipe Trivedi on 05-31-2024 PT Coag (PPP) [Time] 18.2 s High 11.7-14.9 [facility] Reticulocytes Auto (Bld) [#/ Vol]Ordered By: Felipe Trivedi on 05-31-2024 Reticulocyte Count 1.52 % High 0.5-1.5 [facility] Serum albumin/globulin ratio Ordered By: Felipe Trivedi on 05-31-2024 Albumin/Globulin (SONIA) 1.3 0.7-1.7 [facility] Serum immunoglobulin kappa l ight chains/immunoglobulin lambda light chains mass ratioOrdered By: Felipe Trivedi on 05-31-2024 Immunoglobulin light chains.kappa/Immunoglob ulin light chains.lambda (S) [Mass ratio] 1.57 0.26-1.65 [facility] Comment on above: Performed at: [address] [id number] Director: Andres Abel PhD, Phone: [phone] Serum or plasma IgA measurem ent (mass/volume)Ordered By: Felipe Trivedi on 05-31-2024 IgA [Mass/Vol] 270 mg/dL 61-437 [facility] Serum or plasma IgG measurem ent (mass/volume)Ordered By: Felipe Trivedi on 05-31-2024 IgG [Mass/Vol] 1447 mg/dL 603-1613 [facility] Serum or plasma alpha 1 glob ulin measurement by electrophoresis (mass/volume)Ordered By: Felipe Trivedi on 05-31-2024 Alpha 1 globulin Elph [Mass/Vol] 0.3 g/dL 0.0-0.4 [facility] Alpha 1 globulin Elph [Mass/Vol] 0.8 g/dL 0.4-1.0 [facility] Serum or plasma beta globuli n measurement by electrophoresis (mass/volume)Ordered By: Felipe Trivedi on 05-31-2024 Beta globulin Elph [Mass/Vol] 0.9 g/dL 0.7-1.3 [facility] Serum or plasma erythropoiet in (EPO) measurement (units/volume)Ordered By: Felipe Trivedi on 05-31-2024 Erythropoietin (EPO) Qn 10.2 mIU/mL 2.6-18.5 [facility] Comment on above: Balloon[employer] el DxI 800 Immunoassay SystemValues obtained with different assay methods or kits cannotbe used interchangeably. Results cannot be interpreted asabsolute evidence of the presence or absence of malignantdisease. Serum or plasma gamma globul in measurement by electrophoresis (mass/volume)Ordered By: Felipe Trivedi on 05-31-2024 Gamma globulin Elph [Mass/Vol] 1.4 g/dL 0.4-1.8 [facility] Serum or plasma immunoelectr ophoresis interpretation (nominal result)Ordered By: Felipe Trivedi on 05-31-2024 Interpretation IEP [Interp] Comment: . [facility] Comment on above: Presence of monoclon al protein is unclear at this time. Suggestrepeat in 3 to 6 months if clinically indicated. Serum or plasma immunoglobul in kappa light chains measurement (mass/volume)Ordered By: Felipe Trivedi on 05-31-2024 Immunoglobulin light chains.kappa [Mass/Vol] 126.1 mg/L High 3.3-19.4 [facility] Serum or plasma protein viky urement (mass/volume)Ordered By: Felipe Trivedi on 05-31-2024 Protein [Mass/Vol] 7.4 g/dL 6.0-8.5 [facility] Serum tissue transglutaminas e (tTG) IgA antibody assay (units/volume)Ordered By: Felipe Trivedi on 05-31-2024 tTG IgA Qn (S) <2 U/mL 0-3 [facility] Comment on above: Negative 0 - 3 Weak Positive 4 - 10 Positive >10 Tissue Transglutaminase (tTG) has been identified as the endomysial antigen. Studies have demonstr- ated that endomysial IgA antibodies have over 99% specificity for gluten sensitive enteropathy. aPTT Coag (PPP) [Time]Ordere d By: Felipe Trivedi on 05-31-2024 aPTT Coag (Bld) [Time] 54.7 s High 24.1-36.2 [facility] tTG IgA Qn (S)Ordered By: Jayla Trivedi on 05-31-2024 Tissue Transglutaminase IgA Ab <2 U/mL 0-3 [facility] Comment on above: Negative 0 - 3 Weak Positive 4 - 10 Positive >10 Tissue Transglutaminase (tTG) has been identified as the endomysial antigen. Studies have demonstr- ated that endomysial IgA antibodies have over 99% specificity for gluten sensitive enteropathy. Absolute lymphocyte countOrd ered By: Cheli Grace on 02-15-2024 Lymphocytes Auto (Unsp spec) [#/Vol] 0.82 10*3/uL 0.83-4.51 [facility] Automated lymphocyte count a s percentage of total leukocytesOrdered By: Cheli Grace on 02-15-2024 Lymphocytes/100 WBC Auto (Unsp spec) 19.5 % 19-41 [facility] Basophil percentageOrdered B y: Cheli Grace on 02-15-2024 Basophil percentage 3.3 mg/dL 2.5-4.9 [facility] Basophils/100 WBC (Bld) 1.0 % 0-1 [facility] Bilirubin [Mass/Vol] 0.80 mg/dL 0.20-1.00 [facility] Comment on above: For patients on eltr ombopag therapy, use of Dimension Sullivan TBIL is not recommended. Chloride [Moles/Vol] 110 mmol/L 98-107 [facility] Eosinophils/100 WBC (Bld) 6.9 % 0-5 [facility] Glucose [Mass/Vol] 106 mg/dL 74-106 [facility] Comment on above: Fasting Glucose resu lt from 100 to 125 mg/dL suggests IMPAIRED HOMEOSTASIS per A.D.A. criteria. Hemoglobin (Bld) [Mass/Vol] 9.3 g/dL 13.0-16.5 [facility] Monocytes/100 WBC (Bld) 8.3 % 0-10 [facility] Neutrophils (Bld) [#/Vol] 2.7 10*3/uL 2.0-7.7 [facility] Neutrophils/100 WBC (Bld) 64.1 % 47-70 [facility] Potassium [Moles/Vol] 3.0 mmol/L 3.5-5.1 [facility] Protein [Mass/Vol] 7.6 g/dL 6.4-8.2 [facility] Sodium [Moles/Vol] 142 mmol/L 136-145 [facility] WBC (Bld) [#/Vol] 4.2 10*3/uL 4.4-11.0 [facility] Determination of erythrocyte mean corpuscular volume (MCV)Ordered By: Cheli Grace on 02-15-2024 MCV (RBC) [Entitic vol] 103.3 fL 80-94 [facility] Erythrocyte distribution wid th ratioOrdered By: Cheli Grace on 02-15-2024 Erythrocyte distribution width (RBC) [Ratio] 16.2 % 11.6-14.6 [facility] Erythrocyte distribution wid th standard deviationOrdered By: Cheli Grace on 02-15-2024 Erythrocyte distribution width (RBC) [Entitic vol] 60.9 fL 35.1-43.9 [facility] Hematocrit Auto (Bld) [Volum e fraction]Ordered By: Cheli Grace on 02-15-2024 Hematocrit (Bld) [Volume fraction] 28.2 % 40-54 [facility] Immature granulocytes/100 WB C Auto (Bld)Ordered By: Cheli Grace on 02-15-2024 Immature granulocytes/100 WBC (Bld) 0.200 % 0.0-0.9 [facility] [place] Comment on above: IG% - Immature Granu locytes (promyelocytes, myelocytes and metamyelocytes) > 1% indicates that a LEFT SHIFT is Present. Iron measurement (mass/mass) [facility] Iron (Unsp spec) [Mass/Mass] 62 ug/dL 65-175 [facility] [place] Laboratory - Chemistry and C hemistry - challengeOrdered By: [facility] on 02-15-2024 Albumin/Globulin [Mass ratio] 1.1 {ratio} 0.9-2.4 [facility] [place] ALP [Catalytic activity/Vol] 93 U/L 45-117 [facility] [place] ALT [Catalytic activity/Vol] 36 U/L 16-61 [facility] [place] CO2 [Moles/Vol] 26.0 mmol/L 21.0-32.0 [facility] [place] Ferritin [Mass/Vol] 128 ng/mL 26-388 [facility] Globulin (S) [Mass/Vol] 3.7 g/dL 2.2-4.2 [facility] Urea nitrogen/Creatinine [Mass ratio] 26.0 mg/mg 10-20 [facility] [place] Laboratory - Hematology and Cell countsOrdered By: [facility] on 02-15-2024 MCH (RBC) [Entitic mass] 34.1 pg 27.0-32.0 [facility] [place] MCHC (RBC) [Mass/Vol] 33.0 g/dL 32-36 [facility] Nucleated RBC/100 WBC (Bld) [Ratio] 0 % 0-5 [facility] [place] Platelet mean volume (Bld) [Entitic vol] 10.5 fL 6.2-12.0 [facility] [place] Platelets (Bld) [#/Vol] 122 10*3/uL 150-450 [facility] [place] No Panel InformationOrdered By: Cheli Grace on 02-15-2024 Estimated GFR (MDRD) Amer 32 mL/min >60 [facility] [place] Comment on above: GFR Calc Estimated GFR (MDRD) Non-Af Amer 27 mL/min >60 [facility] [place] Comment on above: Non- GFR Calc Total Iron Binding Capacity 273 ug/dL 250-450 [facility] [place] RBC Auto (Bld) [#/Vol]Ordere d By: Cheli Grace on 02-15-2024 RBC (Bld) [#/Vol] 2.73 10*6/uL 4.6-6.2 [facility] Serum or plasma calcium viky urement (mass/volume)Ordered By: Cheli Grace on 02-15-2024 Calcium [Mass/Vol] 9.0 mg/dL 8.5-10.1 [facility] Serum or plasma creatinine m easurement (mass/volume)Ordered By: Cheli Grace on 02-15-2024 Creatinine [Mass/Vol] 2.46 mg/dL 0.70-1.30 [facility] Comment on above: The validity of the calculated GFR & GFRAA in patients over 70 years has not been determined. Clinical correlation is essential. Serum or plasma iron saturat ion measurement (mass fraction)Ordered By: Cheli Grace on 02-15-2024 Iron saturation [Mass fraction] 22.7 % 15.0-55.0 [facility] [place] Serum or plasma urea nitroge n measurement (mass/volume)Ordered By: Cheli Grace on 02-15-2024 Urea nitrogen [Mass/Vol] 64 mg/dL 7-18 [facility] [place] Thin prep Papanicolaou smear with manual screeningOrdered By: Cheli Grace on 02-15-2024 Thin prep Papanicolaou smear with manual screening 3.9 g/dL 3.2-5.0 [facility] [place] Thin prep Papanicolaou smear with manual screening 21 U/L 15-37 [facility] [place] Thin prep Papanicolaou smear with manual screening 6 5-15 [facility] [place] Absolute lymphocyte countOrd ered By: Cheli Grace on 01-12-2024 Lymphocytes Auto (Unsp spec) [#/Vol] 0.99 10*3/uL 0.83-4.51 [facility] [place] Automated lymphocyte count a s percentage of total leukocytesOrdered By: Cheli Grace on 01-12-2024 Lymphocytes/100 WBC Auto (Unsp spec) 18.9 % 19-41 [facility] [place] Basophil percentageOrdered B y: Monik Fraser on 01-12-2024 Basophil percentage 7.7 g/dL 6.4-8.2 [facility] Basophil percentage 0.70 mg/dL 0.20-1.00 [facility] Basophil percentage 84 mg/dL <200 [facility] Basophil percentage 38 mg/dL <199 [facility] Bilirubin [Mass/Vol] 0.70 mg/dL 0.20-1.00 [facility] Comment on above: For patients on eltr ombopag therapy, use of Dimension Sullivan TBIL is not recommended. Cholesterol [Mass/Vol] 84 mg/dL <200 [facility] Comment on above: <200 mg/dL Desirable 200-240 mg/dL Borderline >240 mg/dL High Risk Protein [Mass/Vol] 7.7 g/dL 6.4-8.2 [facility] Triglyceride [Mass/Vol] 38 mg/dL <199 [facility] Comment on above: The drugs N-Acetylcy steine and Metamizole may falsely depress this assay.Serum Triglycerides Reference Interval Normal <150 mg/dL Borderline high 150 - 199 mg/dL High 200 - 499 mg/dL Very High > or = 500 mg/dL Basophil percentageOrdered B y: Cheli Grace on 01-12-2024 Basophil percentage 9.5 g/dL 13.0-16.5 [facility] Basophil percentage 103 mg/dL 74-106 [facility] Basophil percentage 4.2 mg/dL 2.5-4.9 [facility] Basophil percentage 144 mmol/L 136-145 [facility] Basophil percentage 4.0 mmol/L 3.5-5.1 [facility] Basophil percentage 113 mmol/L 98-107 [facility] Basophils (Bld) [#/Vol] 5.2 10*3/uL 4.4-11.0 [facility] [place] Basophils (Bld) [#/Vol] 3.3 10*3/uL 2.0-7.7 [facility] [place] Basophils/100 WBC (Bld) 63.0 % 47-70 [facility] Basophils/100 WBC (Bld) 7.6 % 0-10 [facility] Basophils/100 WBC (Bld) 9.5 % 0-5 [facility] Basophils/100 WBC (Bld) 0.8 % 0-1 [facility] Chloride [Moles/Vol] 113 mmol/L 98-107 [facility] Eosinophils/100 WBC (Bld) 9.5 % 0-5 [facility] [place] Glucose [Mass/Vol] 103 mg/dL 74-106 [facility] Comment on above: Fasting Glucose resu lt from 100 to 125 mg/dL suggests IMPAIRED HOMEOSTASIS per A.D.A. criteria. Hemoglobin (Bld) [Mass/Vol] 9.5 g/dL 13.0-16.5 [facility] [place] Monocytes/100 WBC (Bld) 7.6 % 0-10 [facility] Neutrophils (Bld) [#/Vol] 3.3 10*3/uL 2.0-7.7 [facility] [place] Neutrophils/100 WBC (Bld) 63.0 % 47-70 [facility] [place] Potassium [Moles/Vol] 4.0 mmol/L 3.5-5.1 [facility] Sodium [Moles/Vol] 144 mmol/L 136-145 [facility] WBC (Bld) [#/Vol] 5.2 10*3/uL 4.4-11.0 [facility] Determination of erythrocyte mean corpuscular volume (MCV)Ordered By: Cheli Grace on 01-12-2024 MCV (RBC) [Entitic vol] 104.1 fL 80-94 [facility] Direct bilirubinOrdered By: Monik Fraser on 01-12-2024 Bilirubin.direct [Mass/Vol] 0.30 mg/dL 0.00-0.30 [facility] [place] Erythrocyte distribution wid th ratioOrdered By: Cheli Grace on 01-12-2024 Erythrocyte distribution width (RBC) [Ratio] 14.6 % 11.6-14.6 [facility] [place] Erythrocyte distribution wid th standard deviationOrdered By: Cheli Grace on 01-12-2024 Erythrocyte distribution width (RBC) [Entitic vol] 55.9 fL 35.1-43.9 [facility] [place] Hematocrit Auto (Bld) [Volum e fraction]Ordered By: Cheli Grace on 01-12-2024 Hematocrit (Bld) [Volume fraction] 30.3 % 40-54 [facility] [place] Immature granulocytes/100 WB C Auto (Bld)Ordered By: Cheli Grace on 01-12-2024 Immature granulocytes/100 WBC (Bld) 0.200 % 0.0-0.9 [facility] [place] Comment on above: IG% - Immature Granu locytes (promyelocytes, myelocytes and metamyelocytes) > 1% indicates that a LEFT SHIFT is Present. Laboratory - Chemistry and C hemistry - challengeOrdered By: Monik Fraser on 01-12-2024 ALP [Catalytic activity/Vol] 91 U/L 45-117 [facility] [place] ALT [Catalytic activity/Vol] 28 U/L 16-61 [facility] [place] Cholesterol in HDL [Mass/Vol] 40 mg/dL >40 [facility] [place] Comment on above: The drugs N-Acetylcy steine and Metamizole may falsely depress this assay. Reference Range HDL <40 mg/dL Low HDL Cholesterol HDL >or= 60 mg/dL High HDL Cholesterol Cholesterol in LDL [Mass/Vol] 36 mg/dL 0-130 [facility] [place] Globulin (S) [Mass/Vol] 3.6 g/dL 2.2-4.2 [facility] Laboratory - Chemistry and C hemistry - challengeOrdered By: Cheli Grace on 01-12-2024 Albumin/Globulin [Mass ratio] 1.1 {ratio} 0.9-2.4 [facility] [place] CO2 [Moles/Vol] 22.0 mmol/L 21.0-32.0 [facility] [place] Urea nitrogen/Creatinine [Mass ratio] 33.0 mg/mg 10-20 [facility] [place] [facility] - Hematology and Cell countsOrdered By: Cheli Grace on 01-12-2024 MCH (RBC) [Entitic mass] 32.6 pg 27.0-32.0 [facility] [place] MCHC (RBC) [Mass/Vol] 31.4 g/dL 32-36 [facility] Nucleated RBC/100 WBC (Bld) [Ratio] 0 % 0-5 [facility] [place] Platelet mean volume (Bld) [Entitic vol] 10.6 fL 6.2-12.0 [facility] [place] Platelets (Bld) [#/Vol] 129 10*3/uL 150-450 [facility] [place] No Panel InformationOrdered By: Monik Fraser on 01-12-2024 VLDL Cholesterol 8 mg/dL 5-40 [facility] [place] 3.6 g/dL 2.2-4.2 [facility] [place] 91 U/L 45-117 [facility] [place] 28 U/L 16-61 [facility] [place] 40 mg/dL >40 [facility] [place] 36 mg/dL 0-130 [facility] [place] 8 mg/dL 5-40 [facility] [place] No Panel InformationOrdered By: Cheli Grace on 01-12-2024 Estimated GFR (MDRD) Amer 29 mL/min >60 [facility] [place] Comment on above: GFR Calc Estimated GFR (MDRD) Non-Af Amer 24 mL/min >60 [facility] [place] Comment on above: Non- GFR Calc 32.6 pg 27.0-32.0 [facility] [place] 31.4 g/dL 32-36 [facility] [place] 129 K/mm3 150-450 [facility] [place] 10.6 fl 6.2-12.0 [facility] [place] 0 % 0-5 [facility] [place] 24 mL/min >60 [facility] [place] 29 mL/min >60 [facility] [place] 33.0 RATIO 10-20 [facility] [place] 1.1 RATIO 0.9-2.4 [facility] [place] 22.0 mmol/L 21.0-32.0 [facility] [place] RBC Auto (Bld) [#/Vol]Ordere d By: Cheli Grace on 01-12-2024 RBC (Bld) [#/Vol] 2.91 10*6/uL 4.6-6.2 [facility] Serum or plasma calcium viky urement (mass/volume)Ordered By: Cheli Grace on 01-12-2024 Calcium [Mass/Vol] 9.3 mg/dL 8.5-10.1 [facility] Serum or plasma creatinine m easurement (mass/volume)Ordered By: Cheli Grace on 01-12-2024 Creatinine [Mass/Vol] 2.70 mg/dL 0.70-1.30 [facility] Comment on above: The validity of the calculated GFR & GFRAA in patients over 70 years has not been determined. Clinical correlation is essential. Serum or plasma urea nitroge n measurement (mass/volume)Ordered By: Cheli Grace on 01-12-2024 Urea nitrogen [Mass/Vol] 89 mg/dL 7-18 [facility] [place] Thin prep Papanicolaou smear with manual screeningOrdered By: Monik Fraser on 01-12-2024 Thin prep Papanicolaou smear with manual screening 4.1 g/dL 3.2-5.0 [facility] [place] Thin prep Papanicolaou smear with manual screening 17 U/L 15-37 [facility] [place] Thin prep Papanicolaou smear with manual screeningOrdered By: Cheli Grace on 01-12-2024 Thin prep Papanicolaou smear with manual screening 9 5-15 [facility] [place] Basophil percentageOrdered B y: Florecita Wells on 12-20-2023 Basophil percentage 9.7 g/dL 13.0-16.5 [facility] Basophil percentage 104 mg/dL 74-106 [facility] Basophil percentage 3.4 mg/dL 2.5-4.9 [facility] Basophil percentage 140 mmol/L 136-145 [facility] Basophil percentage 4.1 mmol/L 3.5-5.1 [facility] Basophil percentage 108 mmol/L 98-107 [facility] Basophils (Bld) [#/Vol] 4.6 10*3/uL 4.4-11.0 [facility] [place] Chloride [Moles/Vol] 108 mmol/L 98-107 [facility] Glucose [Mass/Vol] 104 mg/dL 74-106 [facility] Comment on above: Fasting Glucose resu lt from 100 to 125 mg/dL suggests IMPAIRED HOMEOSTASIS per A.D.A. criteria. Hemoglobin (Bld) [Mass/Vol] 9.7 g/dL 13.0-16.5 [facility] [place] Potassium [Moles/Vol] 4.1 mmol/L 3.5-5.1 [facility] Sodium [Moles/Vol] 140 mmol/L 136-145 [facility] WBC (Bld) [#/Vol] 4.6 10*3/uL 4.4-11.0 [facility] Determination of erythrocyte mean corpuscular volume (MCV)Ordered By: Florecita Wells on 12-20-2023 MCV (RBC) [Entitic vol] 103.8 fL 80-94 [facility] Erythrocyte distribution wid th ratioOrdered By: Florecita Wells on 12-20-2023 Erythrocyte distribution width (RBC) [Ratio] 15.0 % 11.6-14.6 [facility] [place] Erythrocyte distribution wid th standard deviationOrdered By: Florecita Wells on 12-20-2023 Erythrocyte distribution width (RBC) [Entitic vol] 57.6 fL 35.1-43.9 [facility] [place] Hematocrit Auto (Bld) [Volum e fraction]Ordered By: Florecita Wells on 12-20-2023 Hematocrit (Bld) [Volume fraction] 30.2 % 40-54 [facility] [place] [facility] - Chemistry and C hemistry - challengeOrdered By: Florecita Wells on 12-20-2023 CO2 [Moles/Vol] 25.0 mmol/L 21.0-32.0 [facility] [place] Urea nitrogen/Creatinine [Mass ratio] 23.9 mg/mg 10-20 [facility] [place] [facility] - Hematology and Cell countsOrdered By: Florecita Wells on 12-20-2023 MCH (RBC) [Entitic mass] 33.3 pg 27.0-32.0 [facility] [place] MCHC (RBC) [Mass/Vol] 32.1 g/dL 32-36 [facility] Platelet mean volume (Bld) [Entitic vol] 10.8 fL 6.2-12.0 [facility] [place] Platelets (Bld) [#/Vol] 142 10*3/uL 150-450 [facility] [place] No Panel InformationOrdered By: Florecita Wells on 12-20-2023 Estimated GFR (MDRD) Amer 30 mL/min >60 [facility] [place] Comment on above: GFR Calc Estimated GFR (MDRD) Non-Af Amer 25 mL/min >60 [facility] [place] Comment on above: Non- GFR Calc Parathyroid Hormone (Intact) 112.0 pg/mL 18.4-80.1 [facility] [place] 33.3 pg 27.0-32.0 [facility] [place] 32.1 g/dL 32-36 [facility] [place] 142 K/mm3 150-450 [facility] [place] 10.8 fl 6.2-12.0 [facility] [place] 25 mL/min >60 [facility] [place] 30 mL/min >60 [facility] [place] 23.9 RATIO 10-20 [facility] [place] 25.0 mmol/L 21.0-32.0 [facility] [place] 112.0 pg/mL 18.4-80.1 [facility] [place] RBC Auto (Bld) [#/Vol]Ordere d By: Florecita Wells on 12-20-2023 RBC (Bld) [#/Vol] 2.91 10*6/uL 4.6-6.2 [facility] Serum or plasma calcium viky urement (mass/volume)Ordered By: Florecita Wells on 12-20-2023 Calcium [Mass/Vol] 9.5 mg/dL 8.5-10.1 [facility] Serum or plasma creatinine m easurement (mass/volume)Ordered By: Florecita Wells on 12-20-2023 Creatinine [Mass/Vol] 2.64 mg/dL 0.70-1.30 [facility] Comment on above: The validity of the calculated GFR & GFRAA in patients over 70 years has not been determined. Clinical correlation is essential. Serum or plasma urea nitroge n measurement (mass/volume)Ordered By: Florecita Wells on 12-20-2023 Urea nitrogen [Mass/Vol] 63 mg/dL 7-18 [facility] [place] Thin prep Papanicolaou smear with manual screeningOrdered By: Florecita Wells on 12-20-2023 Thin prep Papanicolaou smear with manual screening 4.0 g/dL 3.2-5.0 [facility] [place] Absolute lymphocyte countOrd ered By: Cheli Grace on 12-06-2023 Lymphocytes Auto (Unsp spec) [#/Vol] 0.93 10*3/uL 0.83-4.51 [facility] [place] Automated lymphocyte count a s percentage of total leukocytesOrdered By: Cheil Grace on 12-06-2023 Lymphocytes/100 WBC Auto (Unsp spec) 23.3 % 19-41 [facility] [place] Basophil percentageOrdered B y: Cheli Grace on 12-06-2023 Basophil percentage 9.8 g/dL 13.0-16.5 [facility] Basophil percentage 105 mg/dL 74-106 [facility] Basophil percentage 141 mmol/L 136-145 [facility] Basophil percentage 3.8 mmol/L 3.5-5.1 [facility] Basophil [facility] 108 mmol/L 98-107 [facility] Basophils (Bld) [#/Vol] 4.0 10*3/uL 4.4-11.0 [facility] [place] Basophils (Bld) [#/Vol] 2.3 10*3/uL 2.0-7.7 [facility] [place] Basophils/100 WBC (Bld) 57.4 % 47-70 [facility] Basophils/100 WBC (Bld) 9.5 % 0-10 [facility] Basophils/100 WBC (Bld) 8.0 % 0-5 [facility] Basophils/100 WBC (Bld) 1.3 % 0-1 [facility] Chloride [Moles/Vol] 108 mmol/L 98-107 [facility] Eosinophils/100 WBC (Bld) 8.0 % 0-5 [facility] [place] Glucose [Mass/Vol] 105 mg/dL 74-106 [facility] Comment on above: Fasting Glucose resu lt from 100 to 125 mg/dL suggests IMPAIRED HOMEOSTASIS per A.D.A. criteria. Hemoglobin (Bld) [Mass/Vol] 9.8 g/dL 13.0-16.5 [facility] [place] Monocytes/100 WBC (Bld) 9.5 % 0-10 [facility] Neutrophils (Bld) [#/Vol] 2.3 10*3/uL 2.0-7.7 [facility] [place] Neutrophils/100 WBC (Bld) 57.4 % 47-70 [facility] [place] Potassium [Moles/Vol] 3.8 mmol/L 3.5-5.1 [facility] Sodium [Moles/Vol] 141 mmol/L 136-145 [facility] WBC (Bld) [#/Vol] 4.0 10*3/uL 4.4-11.0 [facility] Determination of erythrocyte mean corpuscular volume (MCV)Ordered By: Cheli Grace on 12-06-2023 MCV (RBC) [Entitic vol] 105.4 fL 80-94 [facility] Erythrocyte distribution wid th ratioOrdered By: Cheli Grace on 12-06-2023 Erythrocyte distribution width (RBC) [Ratio] 16.3 % 11.6-14.6 [facility] [place] Erythrocyte distribution wid th standard deviationOrdered By: [facility] on 12-06-[facility]23 Erythrocyte distribution width (RBC) [Entitic vol] 63.7 fL 35.1-43.9 [facility] [place] Hematocrit Auto (Bld) [Volum e fraction]Ordered By: [facility] on 12-06-2023 Hematocrit (Bld) [Volume fraction] 31.2 % 40-54 [facility] [place] Immature granulocytes/100 WB C Auto (Bld)[facility] Immature granulocytes/100 WBC (Bld) 0.500 % 0.0-0.9 [facility] [place] Comment on above: IG% - Immature Granu locytes (promyelocytes, myelocytes and metamyelocytes) > 1% indicates that a LEFT SHIFT is Present. Laboratory - Chemistry and C hemistry - challengeOrdered By: [facility] on 12-[facility]-2023 CO2 [Moles/Vol] 25.0 mmol/L 21.0-32.0 [facility] [place] Urea nitrogen/Creatinine [Mass ratio] 17.8 mg/mg 10-20 [facility] [place] Laboratory - Hematology and Cell countsOrdered By: [facility] MCH (RBC) [Entitic mass] 33.1 pg 27.0-32.0 [facility] [place] MCHC (RBC) [Mass/Vol] 31.4 g/dL 32-36 [facility] Nucleated RBC/100 WBC (Bld) [Ratio] 0 % 0-5 [facility] [place] Platelet mean volume (Bld) [Entitic vol] 10.4 fL 6.2-12.0 [facility] [place] Platelets (Bld) [#/Vol] 149 10*3/uL 150-450 [facility] [place] No Panel InformationOrdered By: [facility] on 12-[facility]-2023 Estimated GFR (MDRD) Amer 33 mL/min >60 [facility] [place] Comment on above: GFR Calc Estimated GFR (MDRD) Non-Af Amer 27 mL/min >60 [facility] [place] Comment on above: Non- GFR Calc 33.1 pg 27.0-32.0 [facility] [place] 31.4 g/dL 32-36 [facility] [place] 149 K/mm3 150-450 [facility] [place] 10.4 fl 6.2-12.0 [facility] 0 % 0-5 [facility] [place] 27 mL/min >60 [facility] [place] 33 mL/min >60 [facility] [place] 17.8 RATIO 10-20 [facility] [place] 25.0 mmol/L 21.0-32.0 [facility] [place] RBC Auto (Bld) [#/Vol]Ordere d By: Cheli Grace on 12-06-2023 RBC (Bld) [#/Vol] 2.96 10*6/uL 4.6-6.2 [facility] Serum or plasma calcium viky urement (mass/volume)Ordered By: Cheli Grace on 12-06-2023 Calcium [Mass/Vol] 9.3 mg/dL 8.5-10.1 [facility] Serum or plasma creatinine m easurement (mass/volume)Ordered By: Cheli Grace on 12-06-2023 Creatinine [Mass/Vol] 2.41 mg/dL 0.70-1.30 [facility] Comment on above: The validity of the calculated GFR & GFRAA in patients over 70 years has not been determined. Clinical correlation is essential. Serum or plasma urea nitroge n measurement (mass/volume)Ordered By: Cheli Grace on 12-06-2023 Urea nitrogen [Mass/Vol] 43 mg/dL 7-18 [facility] [place] Thin prep Papanicolaou smear with manual screeningOrdered By: Cheli Grace on 12-06-2023 Thin prep Papanicolaou smear with manual screening 8 5-15 [facility] [place] Basophil percentageOrdered B y: Sanjeev Sandhu on 11-30-2023 Basophil percentage 8.4 g/dL 13.0-16.5 [facility] Basophil percentage 106 mg/dL 74-106 [facility] Basophil percentage 144 mmol/L 136-145 [facility] Basophil percentage 3.2 mmol/L 3.5-5.1 [facility] Basophil percentage 113 mmol/L 98-107 [facility] Basophils (Bld) [#/Vol] 4.6 10*3/uL 4.4-11.0 [facility] [place] Chloride [Moles/Vol] 113 mmol/L 98-107 [facility] Glucose [Mass/Vol] 106 mg/dL 74-106 [facility] Comment on above: Fasting Glucose resu lt from 100 to 125 mg/dL suggests IMPAIRED HOMEOSTASIS per A.D.A. criteria. Hemoglobin (Bld) [Mass/Vol] 8.4 g/dL 13.0-16.5 [facility] [place] Potassium [Moles/Vol] 3.2 mmol/L 3.5-5.1 [facility] Sodium [Moles/Vol] 144 mmol/L 136-145 [facility] WBC (Bld) [#/Vol] 4.6 10*3/uL 4.4-11.0 [facility] Blood manual differential co mment interpretation (narrative result)Ordered By: Sanjeev Sandhu on 11-30-2023 Manual differential comment Rafal (Bld) [Interp] SCANNED [facility] [place] [facility] Determination of erythrocyte mean corpuscular volume (MCV)Ordered By: Sanjeev Sandhu on 11-30-2023 MCV (RBC) [Entitic vol] 104.7 fL 80-94 [facility] Erythrocyte distribution wid th ratioOrdered By: Sanjeev Sandhu on 11-30-2023 Erythrocyte distribution width (RBC) [Ratio] 17.2 % 11.6-14.6 [facility] [place] Erythrocyte distribution wid th standard deviationOrdered By: Sanjeev Sandhu on 11-30-2023 Erythrocyte distribution width (RBC) [Entitic vol] 65.1 fL 35.1-43.9 [facility] [place] Hematocrit Auto (Bld) [Volum e fraction]Ordered By: Sanjeev Sandhu on 11-30-2023 Hematocrit (Bld) [Volume fraction] 26.7 % 40-54 [facility] [place] Laboratory - Chemistry and C hemistry - challengeOrdered By: Sanjeev Sandhu on 11-30-2023 CO2 [Moles/Vol] 28.0 mmol/L 21.0-32.0 [facility] [place] Urea nitrogen/Creatinine [Mass ratio] 20.4 mg/mg 10-20 [facility] [place] Laboratory - Hematology and Cell countsOrdered By: Sanjeev Sandhu on 11-30-2023 MCH (RBC) [Entitic mass] 32.9 pg 27.0-32.0 [facility] [place] MCHC (RBC) [Mass/Vol] 31.5 g/dL 32-36 [facility] Platelet mean volume (Bld) [Entitic vol] 10.3 fL 6.2-12.0 [facility] [facility] Platelets (Bld) [#/Vol] 130 10*3/uL 150-450 [facility] No Panel InformationOrdered By: Sanjeev Sandhu on 11-30-2023 Estimated Creatinine Clearance Calc 22.76 ml/min [facility] Estimated GFR (MDRD) Amer 37 mL/min >60 [facility] Comment on above: GFR Calc Estimated GFR (MDRD) Non-Af Amer 31 mL/min >60 [facility] Comment on above: Non- GFR Calc 32.9 pg 27.0-32.0 [facility] 31.5 g/dL 32-36 [facility] 130 K/mm3 150-450 [facility] 10.3 fl 6.2-12.0 [facility] 31 mL/min >60 [facility] 37 mL/min >60 [facility] 22.76 ml/min [facility] 20.4 RATIO 10-20 [facility] 28.0 mmol/L 21.0-32.0 [facility] RBC Auto (Bld) [#/Vol]Ordere d By: Sanjeev Sandhu on 11-30-2023 RBC (Bld) [#/Vol] 2.55 10*6/uL 4.6-6.2 [facility] Serum or plasma calcium viky urement (mass/volume)Ordered By: Sanjeev Sandhu on 11-30-2023 Calcium [Mass/Vol] 9.0 mg/dL 8.5-10.1 [facility] Serum or plasma creatinine m easurement (mass/volume)Ordered By: Sanjeev Sandhu on 11-30-2023 Creatinine [Mass/Vol] 2.16 mg/dL 0.70-1.30 [facility] Comment on above: The validity of the calculated GFR & GFRAA in patients over 70 years has not been determined. Clinical correlation is essential. Serum or plasma urea nitroge n measurement (mass/volume)Ordered By: Sanjeev Sandhu on 11-30-2023 Urea nitrogen [Mass/Vol] 44 mg/dL 7-18 [facility] Thin prep Papanicolaou smear with manual screeningOrdered By: Sanjeev Sandhu on 11-30-2023 Thin prep Papanicolaou smear with manual screening 3 5-15 [facility] Absolute lymphocyte countOrd ered By: Gómez Nowak on 11-29-2023 Lymphocytes Auto (Unsp spec) [#/Vol] 0.96 10*3/uL 0.83-4.51 [facility] Activated partial thrombopla stin time (aPTT) in platelet poor plasma by coagulation aOrdered By: Cornelia Montgomery on 11-29-2023 aPTT Coag (PPP) [Time] 45.2 s 24.1-36.2 [facility] Anaerobic cultureOrdered By: Dav Renteria on 11-29-2023 Bacteria identified Anaer cx Nom (Unsp spec) No growth in 5 days. [facility] Bacteria identified Anaer cx Nom (Unsp spec) No growth in 5 days. [facility] Automated lymphocyte count a s percentage of total leukocytesOrdered By: Gómez Nowak on 11-29-2023 Lymphocytes/100 WBC Auto (Unsp spec) 17.7 % 19-41 [facility] Basophil percentageOrdered B y: Dav Renteria on 11-29-2023 Basophil percentage 6.1 g/dL 6.4-8.2 [facility] Basophil percentage 186 U/L 87-241 [facility] LDH [Catalytic activity/Vol] 186 U/L 87-241 [facility] Protein [Mass/Vol] 6.1 g/dL 6.4-8.2 [facility] Basophil percentageOrdered B y: Gómez Nowak on 11-29-2023 Basophils (Bld) [#/Vol] 3.8 10*3/uL 2.0-7.7 [facility] Basophils/100 WBC (Bld) 0.6 % 0-1 [facility] Basophils/100 WBC (Bld) 69.0 % 47-70 [facility] Basophils/100 WBC (Bld) 8.3 % 0-10 [facility] Basophils/100 WBC (Bld) 3.7 % 0-5 [facility] Chloride [Moles/Vol] 118 mmol/L 98-107 [facility] Eosinophils/100 WBC (Bld) 3.7 % 0-5 [facility] Glucose [Mass/Vol] 131 mg/dL 74-106 [facility] Comment on above: Fasting Glucose resu lt greater than or equal to 126 mg/dL suggests DIABETES MELLITUS per A.D.A. criteria. Hemoglobin (Bld) [Mass/Vol] 8.3 g/dL 13.0-16.5 [facility] Monocytes/100 WBC (Bld) 8.3 % 0-10 [facility] Neutrophils (Bld) [#/Vol] 3.8 10*3/uL 2.0-7.7 [facility] Neutrophils/100 WBC (Bld) 69.0 % 47-70 [facility] Potassium [Moles/Vol] 2.9 mmol/L 3.5-5.1 [facility] Sodium [Moles/Vol] 147 mmol/L 136-145 [facility] WBC (Bld) [#/Vol] 5.4 10*3/uL 4.4-11.0 [facility] Body fluid amylase measureme nt (enzymatic activity/volume)Ordered By: Dav Renteria on 11-29-2023 Amylase (Body fld) [Catalytic activity/Vol] 18 U/L . [facility] Comment on above: : BODY FLUID TYPE : AMYLASE : : : : : Lymph : 50 - 83 : : : : : Peritoneal : : : Fluid : 88 - 109 : : : : : Saliva : : : (Mixed Glands) : [id number] - [id number] : : : : Jaimie Dorantes V. Reference Intervals for Adults and Children 2008. Ninth Edition (V9.1) [employer], [facility]; [place]: April 2009.Performed at: - [facility] [id number] Director: Nancy Carlson MD, Phone: [phone] at: [facility] [employer] [id number] Director: Andres Abel PhD, Phone: [phone] Body fluid appearanceOrdered By: Dav Renteria on 11-29-2023 Appearance (Body fld) CLEAR [facility] Body fluid color determinati onOrdered By: Dav Renteria on 11-29-2023 Color (Body fld) YELLOW [facility] Body fluid leukocytes count (number/volume)Ordered By: Dav Renteria on 11-29-2023 WBC (Body fld) [#/Vol] 0.060 10*3/uL [facility] Body fluid lymphocytes/100 l eukocytesOrdered By: Dav Renteria on 11-29-2023 Lymphocytes/100 WBC (Body fld) 49 % [facility] Body fluid macrophage countO rdered By: Dav Renteria on 11-29-2023 Macrophages (Body fld) [#/Vol] 10 % [facility] Body fluid mononuclear cell percentageOrdered By: Dav Renteria on 11-29-2023 Mononuclear cells/100 WBC (Body fld) 93.4 % [facility] Body fluid pH measurementOrd ered By: Dav Renteria on 11-29-2023 pH (Body fld) 7.4 [pH] Not Estab. [facility] Comment on above: The reference interv al(s) and other method performance specificationshave not been established for this body fluid. The test result must beintegrated into the clinical context for interpretation. Body fluid polymorphonuclear leukocyte countOrdered By: Dav Renteria on 11-29-2023 Polymorphonuclear cells (Body fld) [#/Vol] 0.004 10^3/uL [facility] Body fluid protein measureme nt (mass/volume)Ordered By: Dav Renteria on 11-29-2023 Protein (Body fld) [Mass/Vol] 2.3 g/dL Not Establ. [facility] Body fluid segmented neutrop hils count (number/volume)Ordered By: Dav Renteria on 11-29-2023 Segmented neutrophils (Body fld) [#/Vol] 12 % [facility] Body fluid total cell countO rdered By: Dav Renteria on 11-29-2023 Cells Counted Total (Body fld) [#] 0.071 10^3/ul [facility] Comment on above: This is the Total Nu mber of Nucleated Cell Types in the Body Fluid. Cytology report of Body flui d Cyto stainOrdered By: Dav Renteria on 11-29-2023 Cytology report Cyto stain Doc (Body fld) SEE PATHOLOGY REPORT [facility] Comment on above: Specimen submitted t o Anatomical Pathology Department for testing. Determination of erythrocyte mean corpuscular volume (MCV)Ordered By: Gómez Nowak on 11-29-2023 MCV (RBC) [Entitic vol] 104.5 fL 80-94 [facility] Erythrocyte distribution wid th ratioOrdered By: Gómez Nowak on 11-29-2023 Erythrocyte distribution width (RBC) [Ratio] 16.9 % 11.6-14.6 [facility] Erythrocyte distribution wid th standard deviationOrdered By: Gómez Nowak on 11-29-2023 Erythrocyte distribution width (RBC) [Entitic vol] 63.0 fL 35.1-43.9 [facility] Gram stain for investigation of transfusion reactionOrdered By: Dav Renteria on 11-29-2023 Microscopic observation Gram stain Nom (Unsp spec) [facility] Microscopic observation Gram stain Nom (Unsp spec) [facility] Hematocrit Auto (Bld) [Volum e fraction]Ordered By: Gómez Nowak on 11-29-2023 Hematocrit (Bld) [Volume fraction] 25.4 % 40-54 [facility] Immature granulocytes/100 WB C Auto (Bld)Ordered By: Gómez Nowak on 11-29-2023 Immature granulocytes/100 WBC (Bld) 0.700 % 0.0-0.9 [facility] Comment on above: IG% - Immature Granu locytes (promyelocytes, myelocytes and metamyelocytes) > 1% indicates that a LEFT SHIFT is Present. International normalized rat io (INR) calculationOrdered By: Cornelia Montgomery on 11-29-2023 INR Coag (PPP) [Relative time] 1.6 {INR} [facility] Iron measurement (mass/mass) Ordered By: Sanjeev Sandhu on 11-29-2023 Iron (Unsp spec) [Mass/Mass] 34 ug/dL 65-175 [facility] Laboratory - Chemistry and C hemistry - challengeOrdered By: Dav Renteria on 11-29-2023 Albumin/Globulin [Mass ratio] 1.0 {ratio} 0.9-2.4 [facility] Globulin (S) [Mass/Vol] 3.0 g/dL 2.2-4.2 [facility] - Chemistry and C hemistry - challengeOrdered By: Gómez Nowak on 11-29-2023 CO2 [Moles/Vol] 25.0 mmol/L 21.0-32.0 [facility] Urea nitrogen/Creatinine [Mass ratio] 18.0 mg/mg 10-20 [facility] Laboratory - Chemistry and C hemistry - challengeOrdered By: Sanjeev Sandhu on 11-29-2023 Cobalamin (Vitamin B12) [Mass/Vol] 1171 pg/mL 211-911 [facility] Ferritin [Mass/Vol] 67 ng/mL 26-388 [facility] Laboratory - CoagulationOrde red By: Cornelia Montgomery on 11-29-2023 PT Coag (PPP) [Time] 19.2 s 11.7-14.9 [facility] Laboratory - Hematology and Cell countsOrdered By: Gómez Nowak on 11-29-2023 MCH (RBC) [Entitic mass] 34.2 pg 27.0-32.0 [facility] MCHC (RBC) [Mass/Vol] 32.7 g/dL 32-36 [facility] Nucleated RBC/100 WBC (Bld) [Ratio] 0 % 0-5 [facility] Platelets (Bld) [#/Vol] 140 10*3/uL 150-450 [facility] No Panel InformationOrdered By: Dav Renteria on 11-29-2023 Body Fluid Comment 2 SEE COMMENT [facility] Comment on above: .INTERPRETATION OF R ESULTS: Differentiation of transudate and exudate fluid: TRANSUDATE EXUDATE Color- Clear,straw colored Clear,turbid,bloody,purulent RBCs- Usually none to few Often present in high numbers WBCs- Usually none to few Often present in high numbers DIFF Few lymphocytes or Lymphocytes, neutrophils, andCount- mesothelial cells. polymorphonuclear cells . Body Fluid Glucose 142 mg/dL 40-70 [facility] Body Fluid Lactate Dehydrogenase 85 Units/L Not Establ. [facility] Body Fluid Mononuclear WBCs 0.056 10^3/uL [facility] Body Fluid Polynuclear WBCs (%) 6.6 % [facility] Body Fluid RBC 12 /mm3 [facility] 12 /mm3 [facility] 6.6 % [facility] 0.056 10^3/uL [facility] SEE COMMENT [facility] 142 mg/dL 40-70 [facility] 85 Units/L Not Establ. [facility] Culture exhibits no growth. [facility] Body Fluid Culture Culture exhibits no growth. [facility] Culture exhibits no growth. [facility] 3.0 g/dL 2.2-4.2 [facility] 1.0 RATIO 0.9-2.4 [facility] No Panel InformationOrdered By: Gómez Nowak on 11-29-2023 Estimated Creatinine Clearance Calc 22.73 ml/min [facility] Estimated GFR (MDRD) Amer 37 mL/min >60 [facility] Comment on above: GFR Calc Estimated GFR (MDRD) Non-Af Amer 31 mL/min >60 [facility] Comment on above: Non- GFR Calc 0 % 0-5 [facility] No Panel InformationOrdered By: Sanjeev Sandhu on 11-29-2023 Folate 10.10 ng/mL 3.1-55.4 [facility] Total Iron Binding Capacity 254 ug/dL 250-450 [facility] 1171 pg/mL 211-911 [facility] 254 ug/dL 250-450 [facility] 67 ng/mL 26-388 [facility] 10.10 ng/mL 3.1-55.4 [facility] No Panel InformationOrdered By: Cornelia Montgomery on 11-29-2023 19.2 SECONDS 11.7-14.9 [facility] Pathologist interpretation o f Body fluid testsOrdered By: Dav Renteria on 11-29-2023 Pathologist interpretation (Body fld) [Interp] May follow [facility] Pathologist interpretation (Body fld) [Interp] Reviewed [facility] Comment on above: Previous reported re sult: May follow Edited by: TANMAY on 12/02/23:912Negative for malignant cells.Please also refer to cytology report [id number]/David Guerrero M.D. 12/02/23 AMENDED REPORT 12/02/23 0913 PATH COMM/BF previously reported as: May follow Platelet mean volume Steven-Ec ker (Bld) [Entitic vol]Ordered By: Gómez Nowak on 11-29-2023 Platelet mean volume (Bld) [Entitic vol] 11.4 fL 6.2-12.0 [facility] RBC Auto (Bld) [#/Vol]Ordere d By: Gómez Nowak on 11-29-2023 RBC (Bld) [#/Vol] 2.43 10*6/uL 4.6-6.2 [facility] Serum or plasma calcium viky urement (mass/volume)Ordered By: Gómez Nowak on 11-29-2023 Calcium [Mass/Vol] 9.0 mg/dL 8.5-10.1 [facility] Serum or plasma creatinine m easurement (mass/volume)Ordered By: Gómez Nowak on 11-29-2023 Creatinine [Mass/Vol] 2.17 mg/dL 0.70-1.30 [facility] Comment on above: The validity of the calculated GFR & GFRAA in patients over 70 years has not been determined. Clinical correlation is essential. Serum or plasma iron saturat ion measurement (mass fraction)Ordered By: Sanjeev Sandhu on 11-29-2023 Iron saturation [Mass fraction] 13.4 % 15.0-55.0 [facility] Serum or plasma urea nitroge n measurement (mass/volume)Ordered By: Gómez Nowak on 11-29-2023 Urea nitrogen [Mass/Vol] 39 mg/dL 7-18 [facility] Specimen source identificati on of body fluidOrdered By: Dav Renteria on 11-29-2023 Specimen source Nom (Body fld) THORACENTESIS [facility] Thin prep Papanicolaou smear with manual screeningOrdered By: Dav Renteria on 11-29-2023 Thin prep Papanicolaou smear with manual screening 29 % [facility] Thin prep Papanicolaou smear with manual screeningOrdered By: Gómez Nowak on 11-29-2023 Thin prep Papanicolaou smear with manual screening 4 5-15 [facility] Basophil percentageOrdered B y: Dav Renteria on 11-28-2023 Basophil percentage 81 mg/dL <200 [facility] Basophil percentage 60 mg/dL <199 [facility] Cholesterol [Mass/Vol] 81 mg/dL <200 [facility] Comment on above: <200 mg/dL Desirable 200-240 mg/dL Borderline >240 mg/dL High Risk Triglyceride [Mass/Vol] 60 mg/dL <199 [facility] Comment on above: The drugs N-Acetylcy steine and Metamizole may falsely depress this assay.Serum Triglycerides Reference Interval Normal <150 mg/dL Borderline high 150 - 199 mg/dL High 200 - 499 mg/dL Very High > or = 500 mg/dL Clostridioides difficile nuc leic acid assay by PCROrdered By: Gómez Nowak on 11-28-2023 C. difficile DNA ARINA+probe Ql (Unsp spec) [facility] C. difficile DNA ARINA+probe Ql (Unsp spec) [facility] Laboratory - Chemistry and C hemistry - challengeOrdered By: Dav Renteria on 11-28-2023 Cholesterol in HDL (Body fld) [Mass/Vol] 30 mg/dL >40 [facility] Comment on above: The drugs N-Acetylcy steine and Metamizole may falsely depress this assay. Reference Range HDL <40 mg/dL Low HDL Cholesterol HDL >or= 60 mg/dL High HDL Cholesterol Cholesterol in LDL (Body fld) [Moles/Vol] 39 mg/dL 0-130 [facility] Cholesterol in VLDL Calc [Moles/Vol] 12 mg/dL 5-40 [facility] Serum or plasma thyroid stim ulating hormone (TSH) measurement (units/volume)Ordered By: Dav Renteria on 11-28-2023 TSH Qn 2.79 uIU/mL 0.358-3.74 [facility] Absolute lymphocyte countOrd ered By: Devin Kennedy on 11-27-2023 Lymphocytes Auto (Unsp spec) [#/Vol] 0.71 10*3/uL 0.83-4.51 [facility] Automated lymphocyte count a s percentage of total leukocytesOrdered By: Devin Kennedy on 11-27-2023 Lymphocytes/100 WBC Auto (Unsp spec) 15.1 % 19-41 [facility] Basophil percentageOrdered B y: Dav Renteria on 11-27-2023 Basophil percentage 3.3 mg/dL 2.5-4.9 [facility] Basophil percentageOrdered B y: Devin Kennedy on 11-27-2023 Basophils/100 WBC (Bld) 0.4 % 0-1 [facility] Chloride [Moles/Vol] 116 mmol/L 98-107 [facility] Eosinophils/100 WBC (Bld) 4.0 % 0-5 [facility] Glucose [Mass/Vol] 116 mg/dL 74-106 [facility] Comment on above: Fasting Glucose resu lt from 100 to 125 mg/dL suggests IMPAIRED HOMEOSTASIS per A.D.A. criteria. Hemoglobin (Bld) [Mass/Vol] 9.5 g/dL 13.0-16.5 [facility] Monocytes/100 WBC (Bld) 6.4 % 0-10 [facility] Neutrophils (Bld) [#/Vol] 3.5 10*3/uL 2.0-7.7 [facility] Neutrophils/100 WBC (Bld) 73.9 % 47-70 [facility] Potassium [Moles/Vol] 3.2 mmol/L 3.5-5.1 [facility] Sodium [Moles/Vol] 143 mmol/L 136-145 [facility] WBC (Bld) [#/Vol] 4.7 10*3/uL 4.4-11.0 [facility] Determination of erythrocyte mean corpuscular volume (MCV)Ordered By: Devin Kennedy on 11-27-2023 MCV (RBC) [Entitic vol] 103.5 fL 80-94 [facility] Erythrocyte distribution wid th ratioOrdered By: Devin Kennedy on 11-27-2023 Erythrocyte distribution width (RBC) [Ratio] 16.8 % 11.6-14.6 [facility] Erythrocyte distribution wid th standard deviationOrdered By: Devin Kennedy on 11-27-2023 Erythrocyte distribution width (RBC) [Entitic vol] 63.3 fL 35.1-43.9 [facility] Hematocrit Auto (Bld) [Volum e fraction]Ordered By: Devin Kennedy on 11-27-2023 Hematocrit (Bld) [Volume fraction] 29.4 % 40-54 [facility] Immature granulocytes/100 WB C Auto (Bld)Ordered By: Devin Kennedy on 11-27-2023 Immature granulocytes/100 WBC (Bld) 0.200 % 0.0-0.9 [facility] Comment on above: IG% - Immature Granu locytes (promyelocytes, myelocytes and metamyelocytes) > 1% indicates that a LEFT SHIFT is Present. Laboratory - Chemistry and C hemistry - challengeOrdered By: Dav Renteria on 11-27-2023 Magnesium [Mass/Vol] 1.7 mg/dL 1.6-2.6 [facility] Laboratory - Chemistry and C hemistry - challengeOrdered By: Devin Kennedy on 11-27-2023 CO2 [Moles/Vol] 20.0 mmol/L 21.0-32.0 [facility] Natriuretic peptide B (Bld) [Mass/Vol] pg/mL 0-100 [facility] Urea nitrogen/Creatinine [Mass ratio] 17.2 mg/mg 10-20 [facility] Laboratory - Hematology and Cell countsOrdered By: Devin Kennedy on 11-27-2023 MCH (RBC) [Entitic mass] 33.5 pg 27.0-32.0 [facility] MCHC (RBC) [Mass/Vol] 32.3 g/dL 32-36 [facility] Nucleated RBC/100 WBC (Bld) [Ratio] 0 % 0-5 [facility] Platelets (Bld) [#/Vol] 142 10*3/uL 150-450 [facility] No Panel InformationOrdered By: Dav Renteria on 11-27-2023 Troponin I High Sensitivity 40 pg/mL 3.0-78.0 [facility] Comment on above: Please Note: New [place] t Units and Gender Specific Reference Ranges. For more information see Policy Stat Procedure [place] High Sensitivity Troponin (TNIH) and attachments. 40 pg/mL 3.0-78.0 [facility] 1.7 mg/dL 1.6-2.6 [facility] No Panel InformationOrdered By: Devin Kennedy on 11-27-2023 Troponin I High Sensitivity 47 pg/mL 3.0-78.0 [facility] Comment on above: Please Note: New [place] t Units and Gender Specific Reference Ranges. For more information see Policy Stat Procedure [place] High Sensitivity Troponin (TNIH) and attachments. Estimated Creatinine Clearance Calc 24.32 ml/min [facility] Estimated GFR (MDRD) Amer 38 mL/min >60 [facility] Comment on above: GFR Calc Estimated GFR (MDRD) Non-Af Amer 31 mL/min >60 [facility] Comment on above: Non- GFR Calc > 5000.0 pg/mL 0-100 [facility] Platelet mean volume Steven-Ec ker (Bld) [Entitic vol]Ordered By: Devin Kennedy on 11-27-2023 Platelet mean volume (Bld) [Entitic vol] 10.2 fL 6.2-12.0 [facility] RBC Auto (Bld) [#/Vol]Ordere d By: Devin Kennedy on 11-27-2023 RBC (Bld) [#/Vol] 2.84 10*6/uL 4.6-6.2 [facility] Serum or plasma calcium viky urement (mass/volume)Ordered By: Devin Kennedy on 11-27-2023 Calcium [Mass/Vol] 9.1 mg/dL 8.5-10.1 [facility] Serum or plasma creatinine m easurement (mass/volume)Ordered By: Devin Kennedy on 11-27-2023 Creatinine [Mass/Vol] 2.15 mg/dL 0.70-1.30 [facility] Comment on above: The validity of the calculated GFR & GFRAA in patients over 70 years has not been determined. Clinical correlation is essential. Serum or plasma urea nitroge n measurement (mass/volume)Ordered By: Devin Kennedy on 11-27-2023 Urea nitrogen [Mass/Vol] 37 mg/dL 7-18 [facility] Thin prep Papanicolaou smear with manual screeningOrdered By: Devin Kennedy on 11-27-2023 Thin prep Papanicolaou smear with manual screening 7 5-15 [facility] Absolute lymphocyte countOrd ered By: Cheli Grace on 11-24-2023 Lymphocytes Auto (Unsp spec) [#/Vol] 0.69 10*3/uL 0.83-4.51 [facility] Automated lymphocyte count a s percentage of total leukocytesOrdered By: Cheli Grace on 11-24-2023 Lymphocytes/100 WBC Auto (Unsp spec) 14.8 % 19-41 [facility] Basophil percentageOrdered B y: Cheil Grace on 11-24-2023 Basophil percentage 9.3 g/dL 13.0-16.5 [facility] Basophil percentage 121 mg/dL 74-106 [facility] Basophil percentage 7.1 g/dL 6.4-8.2 [facility] Basophil percentage 1.00 mg/dL 0.20-1.00 [facility] Basophil percentage 141 mmol/L 136-145 [facility] Basophil percentage 2.9 mmol/L 3.5-5.1 [facility] Basophil percentage 112 mmol/L 98-107 [facility] Basophils (Bld) [#/Vol] 4.7 10*3/uL 4.4-11.0 [facility] Basophils (Bld) [#/Vol] 3.5 10*3/uL 2.0-7.7 [facility] Basophils/100 WBC (Bld) 0.6 % 0-1 [facility] Basophils/100 WBC (Bld) 74.1 % 47-70 [facility] Basophils/100 WBC (Bld) 6.9 % 0-10 [facility] Basophils/100 WBC (Bld) 3.4 % 0-5 [facility] Bilirubin [Mass/Vol] 1.00 mg/dL 0.20-1.00 [facility] Comment on above: For patients on eltr ombopag therapy, use of Dimension [place] TBIL is not recommended. Chloride [Moles/Vol] 112 mmol/L 98-107 [facility] Eosinophils/100 WBC (Bld) 3.4 % 0-5 [facility] Glucose [Mass/Vol] 121 mg/dL 74-106 [facility] Comment on above: Fasting Glucose resu lt from 100 to 125 mg/dL suggests IMPAIRED HOMEOSTASIS per A.D.A. criteria. Hemoglobin (Bld) [Mass/Vol] 9.3 g/dL 13.0-16.5 [facility] Monocytes/100 WBC (Bld) 6.9 % 0-10 [facility] Neutrophils (Bld) [#/Vol] 3.5 10*3/uL 2.0-7.7 [facility] Neutrophils/100 WBC (Bld) 74.1 % 47-70 [facility] Potassium [Moles/Vol] 2.9 mmol/L 3.5-5.1 [facility] Protein [Mass/Vol] 7.1 g/dL 6.4-8.2 [facility] Sodium [Moles/Vol] 141 mmol/L 136-145 [facility] WBC (Bld) [#/Vol] 4.7 10*3/uL 4.4-11.0 [facility] Determination of erythrocyte mean corpuscular volume (MCV)Ordered By: Cheli Grace on 11-24-2023 MCV (RBC) [Entitic vol] 104.6 fL 80-94 [facility] Erythrocyte distribution wid th ratioOrdered By: Cheli Grace on 11-24-2023 Erythrocyte distribution width (RBC) [Ratio] 16.3 % 11.6-14.6 [facility] Erythrocyte distribution wid th standard deviationOrdered By: Cheli Grace on 11-24-2023 Erythrocyte distribution width (RBC) [Entitic vol] 61.4 fL 35.1-43.9 [facility] Hematocrit Auto (Bld) [Volum e fraction]Ordered By: Cheli Grace on 11-24-2023 Hematocrit (Bld) [Volume fraction] 29.5 % 40-54 [facility] Immature granulocytes/100 WB C Auto (Bld)Ordered By: Cheli Grace on 11-24-2023 Immature granulocytes/100 WBC (Bld) 0.200 % 0.0-0.9 [facility] Comment on above: IG% - Immature Granu locytes (promyelocytes, myelocytes and metamyelocytes) > 1% indicates that a LEFT SHIFT is Present. Laboratory - Chemistry and C hemistry - challengeOrdered By: Cheli Grace on 11-24-2023 Albumin/Globulin [Mass ratio] 1.0 {ratio} 0.9-2.4 [facility] ALP [Catalytic activity/Vol] 107 U/L 45-117 [facility] ALT [Catalytic activity/Vol] 26 U/L 16-61 [facility] CO2 [Moles/Vol] 23.0 mmol/L 21.0-32.0 [facility] Globulin (S) [Mass/Vol] 3.5 g/dL 2.2-4.2 [facility] Urea nitrogen/Creatinine [Mass ratio] 15.8 mg/mg 10-20 [facility] Laboratory - Hematology and Cell countsOrdered By: Cheli Grace on 11-24-2023 MCH (RBC) [Entitic mass] 33.0 pg 27.0-32.0 [facility] MCHC (RBC) [Mass/Vol] 31.5 g/dL 32-36 [facility] Nucleated RBC/100 WBC (Bld) [Ratio] 0 % 0-5 [facility] Platelets (Bld) [#/Vol] 147 10*3/uL 150-450 [facility] No Panel InformationOrdered By: Cheli Grace on 11-24-2023 Estimated GFR (MDRD) Amer 33 mL/min >60 [facility] Comment on above: GFR Calc Estimated GFR (MDRD) Non-Af Amer 27 mL/min >60 [facility] Comment on above: Non- GFR Calc 33.0 pg 27.0-32.0 [facility] 31.5 g/dL 32-36 [facility] 147 K/mm3 150-450 [facility] 0 % 0-5 [facility] 27 mL/min >60 [facility] 33 mL/min >60 [facility] 15.8 RATIO 10-20 [facility] 3.5 g/dL 2.2-4.2 [facility] 1.0 RATIO 0.9-2.4 [facility] 107 U/L 45-117 [facility] 26 U/L 16-61 [facility] 23.0 mmol/L 21.0-32.0 [facility] Platelet mean volume Steven-Ec ker (Bld) [Entitic vol]Ordered By: Cheli Grace on 11-24-2023 Platelet mean volume (Bld) [Entitic vol] 10.8 fL 6.2-12.0 [facility] RBC Auto (Bld) [#/Vol]Ordere d By: Cheli Grace on 11-24-2023 RBC (Bld) [#/Vol] 2.82 10*6/uL 4.6-6.2 [facility] Serum or plasma calcium viky urement (mass/volume)Ordered By: Cheli Grace on 11-24-2023 Calcium [Mass/Vol] 8.9 mg/dL 8.5-10.1 [facility] Serum or plasma creatinine m easurement (mass/volume)Ordered By: Cheli Grace on 11-24-2023 Creatinine [Mass/Vol] 2.41 mg/dL 0.70-1.30 [facility] Comment on above: The validity of the calculated GFR & GFRAA in patients over 70 years has not been determined. Clinical correlation is essential. Serum or plasma urea nitroge n measurement (mass/volume)Ordered By: Cheli Grace on 11-24-2023 Urea nitrogen [Mass/Vol] 38 mg/dL 7-18 [facility] Thin prep Papanicolaou smear with manual screeningOrdered By: Cheli Grace on 11-24-2023 Thin prep Papanicolaou smear with manual screening 3.6 g/dL 3.2-5.0 [facility] Thin prep Papanicolaou smear with manual screening 24 U/L 15-37 [facility] Thin prep Papanicolaou smear with manual screening 6 5-15 [facility] Absolute lymphocyte countOrd ered By: Guillermo Negrete on 11-17-2023 Lymphocytes Auto (Unsp spec) [#/Vol] 0.67 10*3/uL 0.83-4.51 [facility] Automated lymphocyte count a s percentage of total leukocytesOrdered By: Guillermo Negrete on 11-17-2023 Lymphocytes/100 WBC Auto (Unsp spec) 12.5 % 19-41 [facility] Basophil percentageOrdered B y: Guillermo Negrete on 11-17-2023 Basophil percentage 1.5 mmol/L 0.4-2.0 [facility] Lactate [Moles/Vol] 1.5 mmol/L 0.4-2.0 [facility] Basophil percentage 9.6 g/dL 13.0-16.5 [facility] Basophil percentage 138 mg/dL 74-106 [facility] Basophil percentage 7.1 g/dL 6.4-8.2 [facility] Basophil percentage 1.20 mg/dL 0.20-1.00 [facility] Basophil percentage 140 mmol/L 136-145 [facility] Basophil percentage 3.0 mmol/L 3.5-5.1 [facility] Basophil percentage 112 mmol/L 98-107 [facility] Basophils (Bld) [#/Vol] 5.4 10*3/uL 4.4-11.0 [facility] Basophils (Bld) [#/Vol] 4.3 10*3/uL 2.0-7.7 [facility] Basophils/100 WBC (Bld) 0.6 % 0-1 [facility] Basophils/100 WBC (Bld) 80.1 % 47-70 [facility] Basophils/100 WBC (Bld) 4.3 % 0-10 [facility] Basophils/100 WBC (Bld) 2.1 % 0-5 [facility] Bilirubin [Mass/Vol] 1.20 mg/dL 0.20-1.00 [facility] Comment on above: For patients on eltr ombopag therapy, use of Dimension Sullivan TBIL is not recommended. Chloride [Moles/Vol] 112 mmol/L 98-107 [facility] Eosinophils/100 WBC (Bld) 2.1 % 0-5 [facility] Glucose [Mass/Vol] 138 mg/dL 74-106 [facility] Comment on above: Fasting Glucose resu lt greater than or equal to 126 mg/dL suggests DIABETES MELLITUS per A.D.A. criteria. Hemoglobin (Bld) [Mass/Vol] 9.6 g/dL 13.0-16.5 [facility] Monocytes/100 WBC (Bld) 4.3 % 0-10 [facility] Neutrophils (Bld) [#/Vol] 4.3 10*3/uL 2.0-7.7 [facility] Neutrophils/100 WBC (Bld) 80.1 % 47-70 [facility] Potassium [Moles/Vol] 3.0 mmol/L 3.5-5.1 [facility] Protein [Mass/Vol] 7.1 g/dL 6.4-8.2 [facility] Sodium [Moles/Vol] 140 mmol/L 136-145 [facility] WBC (Bld) [#/Vol] 5.4 10*3/uL 4.4-11.0 [facility] Determination of erythrocyte mean corpuscular volume (MCV)Ordered By: Guillermo Negrete on 11-17-2023 MCV (RBC) [Entitic vol] 103.5 fL 80-94 [facility] Erythrocyte distribution wid th ratioOrdered By: Guillermo Negrete on 11-17-2023 Erythrocyte distribution width (RBC) [Ratio] 15.6 % 11.6-14.6 [facility] Erythrocyte distribution wid th standard deviationOrdered By: Guillermo Negrete on 11-17-2023 Erythrocyte distribution width (RBC) [Entitic vol] 58.4 fL 35.1-43.9 [facility] Hematocrit Auto (Bld) [Volum e fraction]Ordered By: Guillermo Negrete on 11-17-2023 Hematocrit (Bld) [Volume fraction] 29.4 % 40-54 [facility] Immature granulocytes/100 WB C Auto (Bld)Ordered By: Guillermo Negrete on 11-17-2023 Immature granulocytes/100 WBC (Bld) 0.400 % 0.0-0.9 [facility] Comment on above: IG% - Immature Granu locytes (promyelocytes, myelocytes and metamyelocytes) > 1% indicates that a LEFT SHIFT is Present. Laboratory - Chemistry and C hemistry - challengeOrdered By: Guillermo Negrete on 11-17-2023 Albumin/Globulin [Mass ratio] 1.0 {ratio} 0.9-2.4 [facility] ALP [Catalytic activity/Vol] 119 U/L 45-117 [facility] ALT [Catalytic activity/Vol] 23 U/L [facility] CO2 [Moles/Vol] 23.0 mmol/L 21.0-32.0 [facility] Globulin (S) [Mass/Vol] 3.5 g/dL 2.2-4.2 [facility] Urea nitrogen/Creatinine [Mass ratio] 16.2 mg/mg 10- [facility] Laboratory - Hematology and Cell countsOrdered By: Guillermo Negrete on 11-17-2023 MCH (RBC) [Entitic mass] 33.8 pg 27.0-32.0 [facility] MCHC (RBC) [Mass/Vol] 32.7 g/dL 32- [facility] Nucleated RBC/100 WBC (Bld) [Ratio] 0 % 0-5 [facility] Platelets (Bld) [#/Vol] 126 10*3/uL 150-450 [facility] No Panel InformationOrdered By: Guillermo Negrete on 11-17-2023 Estimated GFR (MDRD) Amer 35 mL/min >60 [facility] Comment on above: GFR Calc Estimated GFR (MDRD) Non-Af Amer 29 mL/min >60 [facility] Comment on above: Non- GFR Calc 33.8 pg 27.0-32.0 [facility] 32.7 g/dL 32-36 [facility] 126 K/mm3 150-450 [facility] 0 % 0-5 [facility] 29 mL/min >60 [facility] 35 mL/min >60 [facility] 16.2 RATIO 10-20 [facility] 3.5 g/dL 2.2-4.2 [facility] 1.0 RATIO 0.9-2.4 [facility] 119 U/L 45-117 [facility] 23 U/L 16-61 [facility] 23.0 mmol/L 21.0-32.0 [facility] Platelet mean volume Steven-Ec ker (Bld) [Entitic vol]Ordered By: Guillermo Negrete on 11-17-2023 Platelet mean volume (Bld) [Entitic vol] 10.6 fL 6.2-12.0 [facility] RBC Auto (Bld) [#/Vol]Ordere d By: Guillermo Negrete on 11-17-2023 RBC (Bld) [#/Vol] 2.84 10*6/uL 4.6-6.2 [facility] Serum or plasma calcium viky urement (mass/volume)Ordered By: Guillermo Negrete on 11-17-2023 Calcium [Mass/Vol] 9.3 mg/dL 8.5-10.1 [facility] Serum or plasma creatinine m easurement (mass/volume)Ordered By: Guillermo Negrete on 11-17-2023 Creatinine [Mass/Vol] 2.28 mg/dL 0.70-1.30 [facility] Comment on above: The validity of the calculated GFR & GFRAA in patients over 70 years has not been determined. Clinical correlation is essential. Serum or plasma urea nitroge n measurement (mass/volume)Ordered By: Guillermo Negrete on 11-17-2023 Urea nitrogen [Mass/Vol] 37 mg/dL 7-18 [facility] Thin prep Papanicolaou smear with manual screeningOrdered By: Guillermo Negrete on 11-17-2023 Thin prep Papanicolaou smear with manual screening 3.6 g/dL 3.2-5.0 [facility] Thin prep Papanicolaou smear with manual screening 18 U/L 15-37 [facility] Thin prep Papanicolaou smear with manual screening 5 5-15 [facility] Absolute lymphocyte countOrd ered By: Capri Andino on 10-18-2023 Lymphocytes Auto (Unsp spec) [#/Vol] 0.41 10*3/uL 0.83-4.51 [facility] Basophil percentageOrdered B y: Jadon Montano on 10-18-2023 Basophil percentage 0.8 mmol/L 0.4-2.0 [facility] Lactate [Moles/Vol] 0.8 mmol/L 0.4-2.0 [facility] Basophil percentageOrdered B y: Capri Andino on 10-18-2023 Basophil percentage 2.8 mg/dL 2.5-4.9 [facility] Basophil percentage 123 mg/dL 74-106 [facility] Basophil percentage 5.5 g/dL 6.4-8.2 [facility] Basophil percentage 0.70 mg/dL 0.20-1.00 [facility] Basophil percentage 141 mmol/L 136-145 [facility] Basophil percentage 4.0 mmol/L 3.5-5.1 [facility] Basophil percentage 115 mmol/L 98-107 [facility] Basophils (Bld) [#/Vol] 4.8 10*3/uL 4.4-11.0 [facility] Basophils (Bld) [#/Vol] 3.9 10*3/uL 2.0-7.7 [facility] Basophils/100 WBC (Bld) 0.4 % 0-1 [facility] Basophils/100 WBC (Bld) 81.0 % 47-70 [facility] Basophils/100 WBC (Bld) 2.9 % 0-5 [facility] Bilirubin [Mass/Vol] 0.70 mg/dL 0.20-1.00 [facility] Comment on above: For patients on eltr ombopag therapy, use of Dimension Sullivan TBIL is not recommended. Chloride [Moles/Vol] 115 mmol/L 98-107 [facility] Eosinophils/100 WBC (Bld) 2.9 % 0-5 [facility] Glucose [Mass/Vol] 123 mg/dL 74-106 [facility] Comment on above: Fasting Glucose resu lt from 100 to 125 mg/dL suggests IMPAIRED HOMEOSTASIS per A.D.A. criteria. Neutrophils (Bld) [#/Vol] 3.9 10*3/uL 2.0-7.7 [facility] Neutrophils/100 WBC (Bld) 81.0 % 47-70 [facility] Potassium [Moles/Vol] 4.0 mmol/L 3.5-5.1 [facility] Protein [Mass/Vol] 5.5 g/dL 6.4-8.2 [facility] Sodium [Moles/Vol] 141 mmol/L 136-145 [facility] WBC (Bld) [#/Vol] 4.8 10*3/uL 4.4-11.0 [facility] Blood erythrocytes count (nu mber/volume)Ordered By: Capri Andino on 10-18-2023 RBC (Bld) [#/Vol] 2.67 10*6/uL 4.6-6.2 [facility] Blood hemoglobin measurement (mass/volume)Ordered By: Capri Andino on 10-18-2023 Hemoglobin (Bld) [Mass/Vol] 9.2 g/dL 13.0-16.5 [facility] Blood lymphocytes/100 leukoc ytesOrdered By: Capri Andino on 10-18-2023 Lymphocytes/100 WBC (Bld) 8.6 % 19-41 [facility] Blood manual differential co mment interpretation (narrative result)Ordered By: Capri Andino on 10-18-2023 Manual differential comment Rafal (Bld) [Interp] SCANNED [facility] Comment on above: LYMPHOPENIA PRESENT Blood monocytes/100 leukocyt esOrdered By: Capri Andino on 10-18-2023 Monocytes/100 WBC (Bld) 6.7 % 0-10 [facility] Blood platelet mean volumeOr dered By: Capri Andino on 10-18-2023 Platelet mean volume (Bld) [Entitic vol] 11.0 fL 6.2-12.0 [facility] Blood schistocytes detection by light microscopyOrdered By: Capri Andino on 10-18-2023 Schistocytes LM Ql (Bld) RARE [facility] Determination of erythrocyte mean corpuscular volume (MCV)Ordered By: Capri Andino on 10-18-2023 MCV (RBC) [Entitic vol] 106.0 fL 80-94 [facility] Hematocrit Auto (Bld) [Volum e fraction]Ordered By: Capri Andino on 10-18-2023 Hematocrit (Bld) [Volume fraction] 28.3 % 40-54 [facility] Laboratory - Chemistry and C hemistry - challengeOrdered By: Capri Andino on 10-18-2023 ALP [Catalytic activity/Vol] 109 U/L 45-117 [facility] ALT [Catalytic activity/Vol] 70 U/L 16-61 [facility] CO2 [Moles/Vol] 19.0 mmol/L 21.0-32.0 [facility] Globulin (S) [Mass/Vol] 2.6 g/dL 2.2-4.2 [facility] Magnesium [Mass/Vol] 1.7 mg/dL 1.6-2.6 [facility] Urea nitrogen/Creatinine [Mass ratio] 26.7 mg/mg 10-20 [facility] Laboratory - Hematology and Cell countsOrdered By: Capri Andino on 10-18-2023 Erythrocyte distribution width (RBC) [Entitic vol] 59.7 fL 35.1-43.9 [facility] Erythrocyte distribution width (RBC) [Ratio] 15.4 % 11.6-14.6 [facility] Immature granulocytes/100 WBC (Bld) 0.400 % 0.0-0.9 [facility] Comment on above: IG% - Immature Granu locytes (promyelocytes, myelocytes and metamyelocytes) > 1% indicates that a LEFT SHIFT is Present. MCH (RBC) [Entitic mass] 34.5 pg 27.0-32.0 [facility] Nucleated RBC/100 WBC (Bld) [Ratio] 0 % 0-5 [facility] MCHC Auto (RBC) [Mass/Vol]Or dered By: Capri Andino on 10-18-2023 MCHC (RBC) [Mass/Vol] 32.5 g/dL 32-36 [facility] No Panel InformationOrdered By: Capri Andino on 10-18-2023 Estimated Creatinine Clearance Calc 26.36 ml/min [facility] Estimated GFR (MDRD) Amer 43 mL/min >60 [facility] Comment on above: GFR Calc Estimated GFR (MDRD) Non-Af Amer 36 mL/min >60 [facility] Comment on above: Non- GFR Calc Thyroid Stimulating Hormone (TSH) 1.27 uIU/mL 0.358-3.74 [facility] 34.5 pg 27.0-32.0 [facility] 15.4 % 11.6-14.6 [facility] 59.7 fl 35.1-43.9 [facility] 0.400 % 0.0-0.9 [facility] 0 % 0-5 [facility] 36 mL/min >60 [facility] 43 mL/min >60 [facility] 26.36 ml/min [facility] 26.7 RATIO 10-20 [facility] 2.6 g/dL 2.2-4.2 [facility] 109 U/L 45-117 [facility] 70 U/L 16-61 [facility] 1.7 mg/dL 1.6-2.6 [facility] 19.0 mmol/L 21.0-32.0 [facility] 1.27 uIU/mL 0.358-3.74 [facility] Platelets bldOrdered By: Ruiz Andino on 10-18-2023 Platelets (Bld) [#/Vol] 124 10*3/uL 150-450 [facility] Serum or plasma albumin viky urement (mass/volume)Ordered By: Capri Andino on 10-18-2023 Albumin [Mass/Vol] 2.9 g/dL 3.2-5.0 [facility] Serum or plasma albumin/glob ulin mass ratioOrdered By: Capri Andino on 10-18-2023 Albumin/Globulin [Mass ratio] 1.1 {ratio} 0.9-2.4 [facility] Serum or plasma calcium viky urement (mass/volume)Ordered By: Capri Andino on 10-18-2023 Calcium [Mass/Vol] 8.0 mg/dL 8.5-10.1 [facility] Serum or plasma creatinine m easurement (mass/volume)Ordered By: Capri Andino on 10-18-2023 Creatinine [Mass/Vol] 1.91 mg/dL 0.70-1.30 [facility] Comment on above: The validity of the calculated GFR & GFRAA in patients over 70 years has not been determined. Clinical correlation is essential. Serum or plasma urea nitroge n measurement (mass/volume)Ordered By: Capri Andino on 10-18-2023 Urea nitrogen [Mass/Vol] 51 mg/dL 7-18 [facility] Thin prep Papanicolaou smear with manual screeningOrdered By: Capri Andino on 10-18-2023 Thin prep Papanicolaou smear with manual screening 56 U/L 15-37 [facility] Thin prep Papanicolaou smear with manual screening 7 5-15 [facility] Basophil percentageOrdered B y: Jadon Montano on 10-17-2023 Basophil percentage 0 SEEN /hpf 0-5 [facility] Bilirubin Test strip Ql (U)O rdered By: Jadon Montano on 10-17-2023 Bilirubin Ql (U) Negative Negative [facility] Culture, urineOrdered By: Jacky Montano on 10-17-2023 Bacteria identified Cx Nom (U) Culture exhibits no growth. [facility] Bacteria identified Cx Nom (U) Culture exhibits no growth. [facility] INR in Blood by Coagulation assayOrdered By: Jadon Montano on 10-17-2023 INR Coag (Bld) [Relative time] 1.4 {INR} [facility] Influenza virus A and B and SARS-CoV-2 (COVID-19) Ag panel - Upper respiratory specimOrdered By: Jadon Montano on 10-17-2023 SARS-CoV-2 & FLU Antigen (Rapid) SARS-CoV-2 (COVID 19) [facility] Ketones Test strip Ql (U)Ord ered By: Jadon Montano on 10-17-2023 Ketones Ql (U) Negative Negative [facility] Laboratory - CoagulationOrde red By: Jadon Montano on 10-17-2023 aPTT Coag (Bld) [Time] 37.7 s 24.1-36.2 [facility] Coag (PPP) [Time] 16.7 s 11.7-14.9 [facility] Laboratory - Microbiology an d Antimicrobial susceptibilityOrdered By: Jadon Montano on 10-17-2023 Bacteria identified Cx Nom (Bld) No growth in 5 days. [facility] Mucus LM Ql (Urine sed)Order ed By: Jadon Montano on 10-17-2023 Mucus Ql (Urine sed) 0 SEEN /hpf [facility] Nitrite Test strip Ql (U)Ord ered By: Jadon Montano on 10-17-2023 Nitrite Ql (U) Negative Negative [facility] No Panel InformationOrdered By: Jadon Montano on 10-17-2023 No growth in 5 days. [facility] No growth in 5 days. [facility] Troponin I High Sensitivity 37 pg/mL 3.0-78.0 [facility] Comment on above: Please Note: New [place] t Units and Gender Specific Reference Ranges. For more information see Policy Stat Procedure Sullivan High Sensitivity Troponin (TNIH) and attachments. 16.7 SECONDS 11.7-14.9 [facility] 37.7 Seconds 24.1-36.2 [facility] 37 pg/mL 3.0-78.0 [facility] Protein Test strip Ql (U)Ord ered By: Jadon Montano on 10-17-2023 Protein Ql (U) 30 mg/dl Negative [facility] Squamous epithelial cells de tection in urine sediment by light microscopyOrdered By: Jadon Montano on 10-17-2023 Epithelial cells.squamous LM Ql (Urine sed) 0 SEEN /hpf 0-5 [facility] Upper respiratory specimen i nfluenza A virus, influenza B virus, and severe acute resOrdered By: Jadon Montano on 10-17-2023 Upper respiratory specimen influenza A virus, influenza B virus, and severe acute res SARS-CoV-2 (COVID 19) [facility] Upper respiratory specimen influenza A virus, influenza B virus, and severe acute res SARS-CoV-2 (COVID 19) [facility] Urine blood detectionOrdered By: Jadon Montano on 10-17-2023 RBC Ql (U) Negative Negative [facility] RBC Ql (U) 0 SEEN /hpf 0-5 [facility] Urine clarityOrdered By: Vivian Montano on 10-17-2023 Clarity (U) Clear Clear [facility] Urine color determinationOrd ered By: Jadon Montano on 10-17-2023 Color (U) Yellow Yellow [facility] Urine glucose detectionOrder ed By: Jadon Montano on 10-17-2023 Glucose Ql (U) Normal mg/dl Normal [facility] Urine leukocyte esterase det ection by dipstickOrdered By: Jadon Montano on 10-17-2023 Leukocyte esterase Test strip Ql (U) Negative Negative [facility] Urine pHOrdered By: Jadon carreon on 10-17-2023 pH (U) 6.0 [pH] 5.0 - 8.0 [facility] Urine sediment bacteria coun t by microscopy (number/high power field)Ordered By: Jadon Montano on 10-17-2023 Bacteria LM.HPF (Urine sed) [#/Area] 0 /[HPF] None Seen [facility] Urine specific gravity measu rementOrdered By: Jadon Montano on 10-17-2023 Specific gravity (U) [Rel density] 1.020 1.002-1.03 0 [facility] Urobilinogen Auto test strip Ql (U)Ordered By: Jadon Montano on 10-17-2023 Urobilinogen Ql (U) Normal mg/dl Normal [facility] Absolute lymphocyte countOrd ered By: Cheli Lesly on 09-24-2023 Lymphocytes Auto (Unsp spec) [#/Vol] 0.38 10*3/uL 0.83-4.51 [facility] Basophil percentageOrdered B y: Cheli Grace on 09-24-2023 Basophil percentage 124 mg/dL 74-106 [facility] Basophil percentage 6.4 g/dL 6.4-8.2 [facility] Basophil percentage 0.50 mg/dL 0.20-1.00 [facility] Basophil percentage 136 mmol/L 136-145 [facility] Basophil percentage 4.6 mmol/L 3.5-5.1 [facility] Basophil percentage 110 mmol/L 98-107 [facility] Basophils (Bld) [#/Vol] 7.8 10*3/uL 4.4-11.0 [facility] Basophils (Bld) [#/Vol] 7.0 10*3/uL 2.0-7.7 [facility] Basophils/100 WBC (Bld) 0.0 % 0-1 [facility] Basophils/100 WBC (Bld) 89.7 % 47-70 [facility] Bilirubin [Mass/Vol] 0.50 mg/dL 0.20-1.00 [facility] Comment on above: For patients on eltr ombopag therapy, use of Dimension Sullivan TBIL is not recommended. Chloride [Moles/Vol] 110 mmol/L 98-107 [facility] Eosinophils/100 WBC (Bld) 0.0 % 0-5 [facility] Glucose [Mass/Vol] 124 mg/dL 74-106 [facility] Comment on above: Fasting Glucose resu lt from 100 to 125 mg/dL suggests IMPAIRED HOMEOSTASIS per A.D.A. criteria. Neutrophils (Bld) [#/Vol] 7.0 10*3/uL 2.0-7.7 [facility] Neutrophils/100 WBC (Bld) 89.7 % 47-70 [facility] Potassium [Moles/Vol] 4.6 mmol/L 3.5-5.1 [facility] Protein [Mass/Vol] 6.4 g/dL 6.4-8.2 [facility] Sodium [Moles/Vol] 136 mmol/L 136-145 [facility] WBC (Bld) [#/Vol] 7.8 10*3/uL 4.4-11.0 [facility] Blood erythrocytes count (nu mber/volume)Ordered By: Cheli Grace on 09-24-2023 RBC (Bld) [#/Vol] 3.03 10*6/uL 4.6-6.2 [facility] Blood hemoglobin measurement (mass/volume)Ordered By: Cheli Grace on 09-24-2023 Hemoglobin (Bld) [Mass/Vol] 10.3 g/dL 13.0-16.5 [facility] Blood lymphocytes/100 leukoc ytesOrdered By: Cheli Grace on 09-24-2023 Lymphocytes/100 WBC (Bld) 4.9 % 19-41 [facility] Blood manual differential co mment interpretation (narrative result)Ordered By: Cheli Grace on 09-24-2023 Manual differential comment Rafal (Bld) [Interp] COMMENT [facility] Comment on above: LYMPHOPENIA. Blood monocytes/100 leukocyt esOrdered By: Cheli Grace on 09-24-2023 Monocytes/100 WBC (Bld) 4.9 % 0-10 [facility] Blood platelet mean volumeOr dered By: Cheli Grace on 09-24-2023 Platelet mean volume (Bld) [Entitic vol] 10.3 fL 6.2-12.0 [facility] Determination of erythrocyte mean corpuscular volume (MCV)Ordered By: Cheli Grace on 09-24-2023 MCV (RBC) [Entitic vol] 104.0 fL 80-94 [facility] Hematocrit Auto (Bld) [Volum e fraction]Ordered By: Cheli Grace on 09-24-2023 Hematocrit (Bld) [Volume fraction] 31.5 % 40-54 [facility] Laboratory - Chemistry and C hemistry - challengeOrdered By: Cheli Grace on 09-24-2023 ALP [Catalytic activity/Vol] 82 U/L 45-117 [facility] ALT [Catalytic activity/Vol] 50 U/L 16-61 [facility] CO2 [Moles/Vol] 18.0 mmol/L 21.0-32.0 [facility] Globulin (S) [Mass/Vol] 3.1 g/dL 2.2-4.2 [facility] Urea nitrogen/Creatinine [Mass ratio] 26.8 mg/mg 10-20 [facility] Laboratory - Hematology and Cell countsOrdered By: Cheli Lesly on 09-24-2023 Erythrocyte distribution width (RBC) [Entitic vol] 57.2 fL 35.1-43.9 [facility] Erythrocyte distribution width (RBC) [Ratio] 15.2 % 11.6-14.6 [facility] Immature granulocytes/100 WBC (Bld) 0.500 % 0.0-0.9 [facility] Comment on above: IG% - Immature Granu locytes (promyelocytes, myelocytes and metamyelocytes) > 1% indicates that a LEFT SHIFT is Present. MCH (RBC) [Entitic mass] 34.0 pg 27.0-32.0 [facility] Nucleated RBC/100 WBC (Bld) [Ratio] 0 % 0-5 [facility] MCHC Auto (RBC) [Mass/Vol]Or dered By: Cheli Grace on 09-24-2023 MCHC (RBC) [Mass/Vol] 32.7 g/dL 32-36 [facility] No Panel InformationOrdered By: Cheli Grace on 09-24-2023 Estimated GFR (MDRD) Amer 22 mL/min >60 [facility] Comment on above: GFR Calc Estimated GFR (MDRD) Non-Af Amer 18 mL/min >60 [facility] Comment on above: Non- GFR Calc Prostate Specific Antigen Screen 0.48 ng/mL 0.00-4.00 [facility] Comment on above: This test was perfor med using the TPSA assay method for [employer] chemistry system. Values obtained with differentassay methods cannot be used interchangably.When changing PSA assays in the course of monitoring apatient, additional sequential testing should be carriedout to confirm baseline values. 34.0 pg 27.0-32.0 [facility] 15.2 % 11.6-14.6 [facility] 57.2 fl 35.1-43.9 [facility] 0.500 % 0.0-0.9 [facility] 0 % 0-5 [facility] 18 mL/min >60 [facility] 22 mL/min >60 [facility] 26.8 RATIO 10-20 [facility] 3.1 g/dL 2.2-4.2 [facility] 82 U/L 45-117 [facility] 50 U/L 16-61 [facility] 18.0 mmol/L 21.0-32.0 [facility] 0.48 ng/mL 0.00-4.00 [facility] Platelets bldOrdered By: Beatriz Grace on 09-24-2023 Platelets (Bld) [#/Vol] 153 10*3/uL 150-450 [facility] Serum or plasma albumin viky urement (mass/volume)Ordered By: Cheli Grace on 09-24-2023 Albumin [Mass/Vol] 3.3 g/dL 3.2-5.0 [facility] Serum or plasma albumin/glob ulin mass ratioOrdered By: Cheli Grace on 09-24-2023 Albumin/Globulin [Mass ratio] 1.1 {ratio} 0.9-2.4 [facility] Serum or plasma calcium viky urement (mass/volume)Ordered By: Cheli Grace on 09-24-2023 Calcium [Mass/Vol] 8.5 mg/dL 8.5-10.1 [facility] Serum or plasma creatinine m easurement (mass/volume)Ordered By: Cheli Grace on 09-24-2023 Creatinine [Mass/Vol] 3.47 mg/dL 0.70-1.30 [facility] Comment on above: The validity of the calculated GFR & GFRAA in patients over 70 years has not been determined. Clinical correlation is essential. Serum or plasma erythropoiet in (EPO) measurement (units/volume)Ordered By: Cheli Grace on 09-24-2023 Erythropoietin (EPO) Qn 4.5 mIU/mL 2.6-18.5 [facility] Comment on above: Elieser NX[employer]ION Uni[employer] el DxI 800 Immunoassay SystemValues obtained with different assay methods or kits cannotbe used interchangeably. Results cannot be interpreted asabsolute evidence of the presence or absence of malignantdisease.Performed at: [facility] [id number] Director: Andres Abel PhD, Phone: [phone] Serum or plasma urea nitroge n measurement (mass/volume)Ordered By: Cheli Grace on 09-24-2023 Urea nitrogen [Mass/Vol] 93 mg/dL 7-18 [facility] Thin prep Papanicolaou smear with manual screeningOrdered By: Cheli Grace on 09-24-2023 Thin prep Papanicolaou smear with manual screening 30 U/L 15-37 [facility] Thin prep Papanicolaou smear with manual screening 8 5-15 [facility] Absolute lymphocyte countOrd ered By: Dav eRnteria on 09-21-2023 Lymphocytes Auto (Unsp spec) [#/Vol] 0.30 10*3/uL 0.83-4.51 [facility] Basophil percentageOrdered B y: Dav Renteria on 09-21-2023 Basophil percentage 182 mg/dL 74-106 [facility] Basophil percentage 140 mmol/L 136-145 [facility] Basophil percentage 4.0 mmol/L 3.5-5.1 [facility] Basophil percentage 111 mmol/L 98-107 [facility] Basophils (Bld) [#/Vol] 7.0 10*3/uL 4.4-11.0 [facility] Basophils (Bld) [#/Vol] 6.5 10*3/uL 2.0-7.7 [facility] Basophils/100 WBC (Bld) 0.0 % 0-1 [facility] Basophils/100 WBC (Bld) 92.6 % 47-70 [facility] Chloride [Moles/Vol] 111 mmol/L 98-107 [facility] Eosinophils/100 WBC (Bld) 0.0 % 0-5 [facility] Glucose [Mass/Vol] 182 mg/dL 74-106 [facility] Comment on above: Fasting Glucose resu lt greater than or equal to 126 mg/dL suggests DIABETES MELLITUS per A.D.A. criteria. Neutrophils (Bld) [#/Vol] 6.5 10*3/uL 2.0-7.7 [facility] Neutrophils/100 WBC (Bld) 92.6 % 47-70 [facility] Potassium [Moles/Vol] 4.0 mmol/L 3.5-5.1 [facility] Sodium [Moles/Vol] 140 mmol/L 136-145 [facility] WBC (Bld) [#/Vol] 7.0 10*3/uL 4.4-11.0 [facility] Blood erythrocytes count (nu mber/volume)Ordered By: Dav Renteria on 09-21-2023 RBC (Bld) [#/Vol] 2.67 10*6/uL 4.6-6.2 [facility] Blood hemoglobin measurement (mass/volume)Ordered By: Dav Renteria on 09-21-2023 Hemoglobin (Bld) [Mass/Vol] 9.0 g/dL 13.0-16.5 [facility] Blood lymphocytes/100 leukoc ytesOrdered By: Dav Renteria on 09-21-2023 Lymphocytes/100 WBC (Bld) 4.3 % 19-41 [facility] Blood manual differential co mment interpretation (narrative result)Ordered By: Dav Renteria on 09-21-2023 Manual differential comment Rafal (Bld) [Interp] SCANNED [facility] Blood monocytes/100 leukocyt esOrdered By: Dav Renteria on 09-21-2023 Monocytes/100 WBC (Bld) 2.7 % 0-10 [facility] Blood platelet mean volumeOr dered By: Dav Renteria on 09-21-2023 Platelet mean volume (Bld) [Entitic vol] 11.1 fL 6.2-12.0 [facility] Determination of erythrocyte mean corpuscular volume (MCV)Ordered By: Dav Renteria on 09-21-2023 MCV (RBC) [Entitic vol] 107.1 fL 80-94 [facility] Hematocrit Auto (Bld) [Volum e fraction]Ordered By: Dav Renteria on 09-21-2023 Hematocrit (Bld) [Volume fraction] 28.6 % 40-54 [facility] Laboratory - Chemistry and C hemistry - challengeOrdered By: Dav Renteria on 09-21-2023 CO2 [Moles/Vol] 23.0 mmol/L 21.0-32.0 [facility] Urea nitrogen/Creatinine [Mass ratio] 21.6 mg/mg 10-20 [facility] Laboratory - Hematology and Cell countsOrdered By: Dav Renteria on 09-21-2023 Erythrocyte distribution width (RBC) [Entitic vol] 59.7 fL 35.1-43.9 [facility] Erythrocyte distribution width (RBC) [Ratio] 15.5 % 11.6-14.6 [facility] Immature granulocytes/100 WBC (Bld) 0.400 % 0.0-0.9 [facility] Comment on above: IG% - Immature Granu locytes (promyelocytes, myelocytes and metamyelocytes) > 1% indicates that a LEFT SHIFT is Present. MCH (RBC) [Entitic mass] 33.7 pg 27.0-32.0 [facility] Nucleated RBC/100 WBC (Bld) [Ratio] 0 % 0-5 [facility] MCHC Auto (RBC) [Mass/Vol]Or dered By: Dav Renteria on 09-21-2023 MCHC (RBC) [Mass/Vol] 31.5 g/dL 32-36 [facility] No Panel InformationOrdered By: Dav Renteria on 09-21-2023 Estimated Creatinine Clearance Calc 18.61 ml/min [facility] Estimated GFR (MDRD) Amer 29 mL/min >60 [facility] Comment on above: GFR Calc Estimated GFR (MDRD) Non-Af Amer 24 mL/min >60 [facility] Comment on above: Non- GFR Calc 33.7 pg 27.0-32.0 [facility] 15.5 % 11.6-14.6 [facility] 59.7 fl 35.1-43.9 [facility] 0.400 % 0.0-0.9 [facility] 0 % 0-5 [facility] 24 mL/min >60 [facility] 29 mL/min >60 [facility] 18.61 ml/min [facility] 21.6 RATIO 10-20 [facility] 23.0 mmol/L 21.0-32.0 [facility] Platelets bldOrdered By: Taylor Renteria on 09-21-2023 Platelets (Bld) [#/Vol] 144 10*3/uL 150-450 [facility] Serum or plasma calcium viky urement (mass/volume)Ordered By: Dav Renteria on 09-21-2023 Calcium [Mass/Vol] 8.8 mg/dL 8.5-10.1 [facility] Serum or plasma creatinine m easurement (mass/volume)Ordered By: Dav Renteria on 09-21-2023 Creatinine [Mass/Vol] 2.73 mg/dL 0.70-1.30 [facility] Comment on above: The validity of the calculated GFR & GFRAA in patients over 70 years has not been determined. Clinical correlation is essential. Serum or plasma urea nitroge n measurement (mass/volume)Ordered By: Dav Renteria on 09-21-2023 Urea nitrogen [Mass/Vol] 59 mg/dL 7-18 [facility] Thin prep Papanicolaou smear with manual screeningOrdered By: Dav Renteria on 09-21-2023 Thin prep Papanicolaou smear with manual screening 6 5-15 [facility] Review by pathologistOrdered By: Dav Renteria on 09-20-2023 Pathologist review Rafal (Unsp spec) [Interp] Reviewed [facility] Comment on above: Previous reported re sult: February abel Edited by: RGOOD on 09/20/23:1402Pancytopenia.Macrocytic anemia.LeukopeniaMild Thrombocytopenia.Clinical correlation necessary.Aden Gonzalez D.O. 09/20/23 AMENDED REPORT 09/20/23 1402 PATH REV previously reported as: February abel No Panel InformationOrdered By: Capri Andino on 09-19-2023 Troponin I High Sensitivity 39 pg/mL 3.0-78.0 [facility] Comment on above: Please Note: New [place] t Units and Gender Specific Reference Ranges. For more information see Policy Stat Procedure Sullivan High Sensitivity Troponin (TNIH) and attachments. 39 pg/mL 3.0-78.0 [facility] Basophil percentageOrdered B y: Florecita Wells on 08-19-2023 Basophil percentage 3.3 mg/dL 2.5-4.9 [facility] Basophil percentage 99 mg/dL 74-106 [facility] Basophil percentage 144 mmol/L 136-145 [facility] Basophil percentage 3.2 mmol/L 3.5-5.1 [facility] Basophil percentage 113 mmol/L 98-107 [facility] Basophils (Bld) [#/Vol] 4.6 10*3/uL 4.4-11.0 [facility] Chloride [Moles/Vol] 113 mmol/L 98-107 [facility] Glucose [Mass/Vol] 99 mg/dL 74-106 [facility] Potassium [Moles/Vol] 3.2 mmol/L 3.5-5.1 [facility] Sodium [Moles/Vol] 144 mmol/L 136-145 [facility] WBC (Bld) [#/Vol] 4.6 10*3/uL 4.4-11.0 [facility] Blood erythrocytes count (nu mber/volume)Ordered By: Florecita Wells on 08-19-2023 RBC (Bld) [#/Vol] 2.81 10*6/uL 4.6-6.2 [facility] Blood hemoglobin measurement (mass/volume)Ordered By: Florecita Wells on 08-19-2023 Hemoglobin (Bld) [Mass/Vol] 9.6 g/dL 13.0-16.5 [facility] Blood platelet mean volumeOr dered By: Florecita Wells on 08-19-2023 Platelet mean volume (Bld) [Entitic vol] 10.7 fL 6.2-12.0 [facility] Determination of erythrocyte mean corpuscular volume (MCV)Ordered By: Florecita Wells on 08-19-2023 MCV (RBC) [Entitic vol] 105.7 fL 80-94 [facility] Hematocrit Auto (Bld) [Volum e fraction]Ordered By: Florecita Wells on 08-19-2023 Hematocrit (Bld) [Volume fraction] 29.7 % 40-54 [facility] Iron measurement (mass/mass) Ordered By: Florecita Wells on 08-19-2023 Iron (Unsp spec) [Mass/Mass] 75 ug/dL 65-175 [facility] Laboratory - Chemistry and C hemistry - challengeOrdered By: Florecita Wells on 08-19-2023 CO2 [Moles/Vol] 22.0 mmol/L 21.0-32.0 [facility] Urea nitrogen/Creatinine [Mass ratio] 24.1 mg/mg 08-13 [facility] Laboratory - Hematology and Cell countsOrdered By: Florecita Wells on 08-19-2023 Erythrocyte distribution width (RBC) [Entitic vol] 57.9 fL 35.1-43.9 [facility] Erythrocyte distribution width (RBC) [Ratio] 14.9 % 11.6-14.6 [facility] MCH (RBC) [Entitic mass] 34.2 pg 27.0-32.0 [facility] MCHC Auto (RBC) [Mass/Vol]Or dered By: Florecita Wells on 08-19-2023 MCHC (RBC) [Mass/Vol] 32.3 g/dL 32-36 [facility] No Panel InformationOrdered By: Florecita Wells on 08-19-2023 Estimated GFR (MDRD) Amer 37 mL/min >60 [facility] Comment on above: GFR Calc Estimated GFR (MDRD) Non-Af Amer 30 mL/min >60 [facility] Comment on above: Non- GFR Calc Parathyroid Hormone (Intact) 172.1 pg/mL 18.4-80.1 [facility] Total Iron Binding Capacity 302 ug/dL 250-450 [facility] 34.2 pg 27.0-32.0 [facility] 14.9 % 11.6-14.6 [facility] 57.9 fl 35.1-43.9 [facility] 30 mL/min >60 [facility] 37 mL/min >60 [facility] 24.1 RATIO 08-13 [facility] 22.0 mmol/L 21.0-32.0 [facility] 302 ug/dL 250-450 [facility] 172.1 pg/mL 18.4-80.1 [facility] Platelets bldOrdered By: Lexy camila Russell on 08-19-2023 Platelets (Bld) [#/Vol] 150 10*3/uL 150-450 [facility] Serum or plasma albumin viky urement (mass/volume)Ordered By: Florecita Wells on 08-19-2023 Albumin [Mass/Vol] 3.8 g/dL 3.2-5.0 [facility] Serum or plasma calcium viky urement (mass/volume)Ordered By: Florecita Wells on 08-19-2023 Calcium [Mass/Vol] 9.2 mg/dL 8.5-10.1 [facility] Serum or plasma creatinine m easurement (mass/volume)Ordered By: Florecita Wells on 08-19-2023 Creatinine [Mass/Vol] 2.20 mg/dL 0.70-1.30 [facility] Comment on above: The validity of the calculated GFR & GFRAA in patients over 70 years has not been determined. Clinical correlation is essential. Serum or plasma ferritin kate surement (mass/volume)Ordered By: Florecita Wells on 08-19-2023 Ferritin [Mass/Vol] 85 ng/mL 26-388 [facility] Serum or plasma iron saturat ion measurement (mass fraction)Ordered By: Florecita Wells on 08-19-2023 Iron saturation [Mass fraction] 24.8 % 15.0-55.0 [facility] Serum or plasma urea nitroge n measurement (mass/volume)Ordered By: Florecita Wells on 08-19-2023 Urea nitrogen [Mass/Vol] 53 mg/dL 7-18 [facility] CNPNon 08-09-2023 CNPN Telephone ([facility] -- DARCY LUCAS ([id number]) [address] [facility] Date Time Provider Department 08/09/23 CAT ART During your visit today, we recorded the following information about you: Liliana De La Rosa Ma 08/09/2023 3:00 PM Signed Patient called the office to cancel his Aug [address] Art because he would prefer a kidney doctor closer to where he lives in [place], [place] Allergies As of Date: 08/09/2023 Noted Allergy Reaction INDOCIN (INDOMETHACIN SODIUM) 03/22/2012 8 - GI Upset NORVASC (AMLODIPINE BESYLATE) 12/16/2018 14 - Other: See Comments Comments: Dizziness [id number] REDUCTASE INHIBIT*07/10/2014 14 - Other: See Comments Comments: myalgia LISINOPRIL 12/12/2020 3 - Cough Date Reviewed: 04/26/2023 Reviewed by: Liliana De La Rosa Ma - Fully Assessed Reason for Visit: Patient Update [1234] Cmt: Pt wants to see another kidney doctor closer to home ([place], [place]) Prescriptions as of 08/09/2023 - albuterol HFA [...] capsules by mouth once daily. - Coenzyme C72-Yshsprr E 100-100 mg cap Take by mouth. - cyanocobalamin (VITAMIN B-12) 1,000 mcg tab Take 1 tablet by mouth once daily. - Lacto 21-Bifido 6-Y-V5-B6-B12 ([employer] MEN'S) 50 billion cell -90 [...] minutes as needed for chest pain. - Oavby-0-WUF-EPA-Fish Oil 1,000 mg (120 mg-180 mg) cap [...] once daily. 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 [facility] Basophil percentageOrdered B y: Monik Fraser on 07-08-2023 Bilirubin [Mass/Vol] 0.70 mg/dL 0.20-1.00 [facility] Comment on above: For patients on eltr ombopag therapy, use of Dimension Sullivan TBIL is not recommended. Cholesterol [Mass/Vol] 90 mg/dL <200 [facility] Comment on above: <200 mg/dL Desirable 200-240 mg/dL Borderline >240 mg/dL High Risk Protein [Mass/Vol] 7.6 g/dL 6.4-8.2 [facility] Triglyceride [Mass/Vol] 58 mg/dL <199 [facility] Comment on above: The drugs N-Acetylcy steine and Metamizole may falsely depress this assay.Serum Triglycerides Reference Interval Normal <150 mg/dL Borderline high 150 - 199 mg/dL High 200 - 499 mg/dL Very High > or = 500 mg/dL Basophil percentageOrdered B y: Haile Martin on 07-08-2023 Chloride [Moles/Vol] 110 mmol/L 98-107 [facility] Glucose [Mass/Vol] 98 mg/dL 74-106 [facility] Potassium [Moles/Vol] 3.8 mmol/L 3.5-5.1 [facility] Sodium [Moles/Vol] 140 mmol/L 136-145 [facility] Direct bilirubinOrdered By: Monik Fraser on 07-08-2023 Bilirubin.direct [Mass/Vol] 0.28 mg/dL 0.00-0.30 [facility] Laboratory - Chemistry and C hemistry - challengeOrdered By: Monik Fraser on 07-08-2023 ALP [Catalytic activity/Vol] 112 U/L 45-117 [facility] ALT [Catalytic activity/Vol] 30 U/L 16-61 [facility] Globulin (S) [Mass/Vol] 3.6 g/dL 2.2-4.2 [facility] Laboratory - Chemistry and C hemistry - challengeOrdered By: Haile Martin on 07-08-2023 CO2 [Moles/Vol] 25.0 mmol/L 21.0-32.0 [facility] Urea nitrogen/Creatinine [Mass ratio] 19.3 mg/mg 10-20 [facility] No Panel InformationOrdered By: Haile Martin on 07-08-2023 Estimated GFR (MDRD) Amer 33 mL/min >60 [facility] Comment on above: GFR Calc Estimated GFR (MDRD) Non-Af Amer 28 mL/min >60 [facility] Comment on above: Non- GFR Calc Serum or plasma albumin viky urement (mass/volume)Ordered By: Monik Fraser on 07-08-2023 Albumin [Mass/Vol] 4.0 g/dL 3.2-5.0 [facility] Serum or plasma calcium viky urement (mass/volume)Ordered By: Haile Martin on 07-08-2023 Calcium [Mass/Vol] 9.3 mg/dL 8.5-10.1 [facility] Serum or plasma cholesterol in HDL measurement (mass/volume)Ordered By: Monik Fraser on 07-08-2023 Cholesterol in HDL [Mass/Vol] 35 mg/dL >40 [facility] Comment on above: The drugs N-Acetylcy steine and Metamizole may falsely depress this assay. Reference Range HDL <40 mg/dL Low HDL Cholesterol HDL >or= 60 mg/dL High HDL Cholesterol Serum or plasma cholesterol in VLDL measurement (mass/volume)Ordered By: Monik Fraser on 07-08-2023 Cholesterol in VLDL [Mass/Vol] 12 mg/dL 5-40 [facility] Serum or plasma creatinine m easurement (mass/volume)Ordered By: Haile Martin on 07-08-2023 Creatinine [Mass/Vol] 2.38 mg/dL 0.70-1.30 [facility] Comment on above: The validity of the calculated GFR & GFRAA in patients over 71 years has not been determined. Clinical correlation is essential. Serum or plasma low density lipoprotein (LDL) cholesterol measurement (mass/volume)Ordered By: Monik Fraser on 07-08-2023 Cholesterol in LDL [Mass/Vol] 43 mg/dL 0-130 [facility] Serum or plasma urea nitroge n measurement (mass/volume)Ordered By: Haile Martin on 07-08-2023 Urea nitrogen [Mass/Vol] 46 mg/dL 7-18 [facility] Thin prep Papanicolaou smear with manual screeningOrdered By: Monik Fraser on 07-08-2023 Thin prep Papanicolaou smear with manual screening 15 U/L 15-37 [facility] Thin prep Papanicolaou smear with manual screeningOrdered By: Haile Martin on 07-08-2023 Thin prep Papanicolaou smear with manual screening 5 5-15 [facility] Renal function 2000 panelon 06-30-2023 Albumin [Mass/Vol] 4.3 g/dL Normal 3.9-4.9 [facility] Comment on above: Order Comment: Speci men Type: BLOOD SPECIMENOrdering Facility: [facility] Address: [address] [place], [place] [address] Performed By: #### 2 4362-6 ####[facility] LABCLIA [id number] [place] [address] [place] Anion gap [Moles/Vol] 15 mmol/L Normal 9-18 [facility] Comment on above: Order Comment: Speci men Type: BLOOD SPECIMENOrdering Facility: [facility] Address: [address] [place], [place] [address] Performed By: #### 2 4362-6 ####[facility] LABCLIA [id number] [place] [address] [place] Calcium [Mass/Vol] 9.6 mg/dL Normal 8.5-10.2 [facility] Comment on above: Order Comment: Speci men Type: BLOOD SPECIMENOrdering Facility: [facility] Address: [address] [place], [place] [address] Performed By: #### 2 4362-6 ####[facility] LABCLIA [id number] [place] [address] [place] Chloride [Moles/Vol] 108 mmol/L High 97-105 [facility] Comment on above: Order Comment: Speci men Type: BLOOD SPECIMENOrdering Facility: [facility] Address: [address] [place], [place] [address] Performed By: #### 2 4362-6 ####[facility] LABCLIA [id number] [place] [address] [place] CO2 [Moles/Vol] 18 mmol/L Low 22-30 [facility] Comment on above: Order Comment: Speci men Type: BLOOD SPECIMENOrdering Facility: [facility] Address: [address] [place], [place] [address] Performed By: #### 2 4362-6 ####[facility] LABCLIA [id number] [place] [address] [place] Creatinine [Mass/Vol] 2.14 mg/dL High 0.73-1.22 [facility] Comment on above: Order Comment: Nathaniel amaya Type: BLOOD SPECIMENOrdering Facility: [facility] Address: [address] [address] Performed By: #### 2 4362-6 ####[facility] LABCLIA [id number] [address] OF [facility] Creatinine and Glomerular filtration rate.predicted panel (S/P/Bld) 29 mL/min/1.73m??? Low >=60 [facility] Comment on above: Order Comment: Nathaniel amaya Type: BLOOD SPECIMENOrdering Facility: [facility] Address: [address] [place] [address] Result Comment: Xochilt mated Glomerular Filtration Rate (eGFR) is calculated using the 2020 CKD-EPI creatinine equation. This equation utilizes serum creatinine, sex, and age as parameters. The creatinine assay has traceable calibration to isotope dilution-mass spectrometry. Refer to KDIGO guidelines for clinical interpretation. In patients with unstable renal function, e.g. those with acute kidney injury, the eGFR may not accurately reflect actual GFR. Performed By: #### 2 4362-6 ####[facility] LABCLIA [id number] [place] [address] [place] Glucose [Mass/Vol] 108 mg/dL High 74-99 [facility] Comment on above: Order Comment: Nathaniel amaya Type: BLOOD SPECIMENOrdering Facility: [facility] Address: [address] [place] [address] Result Comment: The [place] Diabetes Association (ADA) provides guidance for cutoff values for fasting glucose and random glucose. The ADA defines fasting as no caloric intake for at least 8 hours. Fasting plasma glucose results between 100 to 125 mg/dL indicate increased risk for diabetes (prediabetes). Fasting plasma glucose results greater than or equal to 126 mg/dL meet the criteria for diagnosis of diabetes. In the absence of unequivocal hyperglycemia, results should be confirmed by repeat testing. In a patient with classic symptoms of hyperglycemia or hyperglycemic crisis, random plasma glucose results greater than or equal to 200 mg/dL meet the criteria for diagnosis of diabetes. Reference: Standards of Medical Care in Diabetes 2016, [place] [employer]. Diabetes Care. 2016.39(Suppl 1). Performed By: #### 2 4362-6 ####[facility] LABIA [id number] [place] [address] [place] Phosphate [Mass/Vol] 3.0 mg/dL Normal 2.7-4.8 [facility] Comment on above: Order Comment: Speci men Type: BLOOD SPECIMENOrdering Facility: [facility] Address: [address] [address] Performed By: #### 2 4362-6 ####[facility] LABIA [id number] [place] [address] [place] Potassium [Moles/Vol] 4.3 mmol/L Normal 3.7-5.1 [facility] Comment on above: Order Comment: Speci men Type: BLOOD SPECIMENOrdering Facility: [facility] Address: [address] [address] Performed By: #### 2 4362-6 ####[facility] LABIA [id number] [place] [address] [place] Sodium [Moles/Vol] 141 mmol/L Normal 136-144 [facility] Comment on above: Order Comment: Speci men Type: BLOOD SPECIMENOrdering Facility: [facility] Address: [address] Performed By: #### 2 4362-6 ####[facility] LABIA [id number] [place] [address] [place] Urea nitrogen [Mass/Vol] 58 mg/dL High 9-24 [facility] Comment on above: Order Comment: Speci men Type: BLOOD SPECIMENOrdering Facility: [facility] Address: [address] Performed By: #### 2 4362-6 ####[facility] LABCLIA [id number] [place] [address] [place] 25(OH[facility] 25-hydroxyvitamin D3 [Mass/Vol] 33.5 ng/mL Normal 31.0-80.0 [facility] Comment on above: Order Comment: Speci men Type: BLOOD SPECIMENOrdering Facility: [facility] Address: [address] [place] [address] Result Comment: Clas sification of 25 [place] Vitamin D status: Deficiency/Insufficiency: < or = 30 ng/ml. Sufficiency/Optimal Levels: 31-80 ng/mL Toxicity: > 100 ng/mL. Test performed by chemiluminescent immunoassay. Performed By: #### 1 989-3 ####[facility] LABCLIA [id number] [place] [address] [place] Ferritin [facility] 2022 Ferritin [Mass/Vol] 137.0 ng/mL Normal 30.3-565.7 [facility] Comment on above: Order Comment: Speci men Type: BLOOD SPECIMENOrdering Facility: [facility] Address: [address] [place] [address] Performed By: #### 2 731-8, 2276-4, 71481-1, 19224-6 ####[facility] LABIA [id number] [place] [address] [place] Iron and Iron binding capaci ty panelon 05-28-2023 Iron [Mass/Vol] 108 ug/dL Normal 41-186 [facility] Comment on above: Order Comment: Speci men Type: BLOOD SPECIMENOrdering Facility: [facility] Address: [address] [place] [address] Performed By: #### 2 731-8, 2276-4, 44362-8, 81055-4 ####[facility] LABCLIA [id number] [place] [address] [place] Iron binding capacity [Mass/Vol] 302 ug/dL Normal 232-386 [facility] Comment on above: Order Comment: Speci men Type: BLOOD SPECIMENOrdering Facility: [facility] Address: [address] [place] [address] Performed By: #### 2 731-8, 2276-4, 40873-3, 14666-5 ####[facility] LABIA [id number] [address] OF [facility] Iron/TIBC [Molar ratio] 35.8 % Normal 15.0-57.0 [facility] Comment on above: Order Comment: Speci men Type: BLOOD SPECIMENOrdering Facility: [facility] Address: [address] [place] [address] Performed By: #### 2 731-8, 2276-4, 68711-8, 86032-6 ####[facility] LABIA [id number] [address] [place] PTH-Intact [facility] 08-0 Parathyrin.intact [Mass/Vol] 82 pg/mL High 15-65 [facility] Comment on above: Order Comment: Speci men Type: BLOOD SPECIMENOrdering Facility: [facility] Address: [address] [place] [address] Performed By: #### 2 731-8, 2276-4, 88106-1, 62355-2 ####[facility] LABIA [id number] [address] [place] [address] [place] Renal function 2000 panelon 05-28-2023 Albumin [Mass/Vol] 4.6 g/dL Normal 3.9-4.9 [facility] Comment on above: Order Comment: Speci men Type: BLOOD SPECIMENOrdering Facility: [facility] Address: [address] [place], [place] [address] Performed By: #### 2 731-8, 2276-4, 10202-2, 66573-1 ####[facility] LABCLIA [id number] [place] [address] [place] Anion gap [Moles/Vol] 13 mmol/L Normal 9-18 [facility] Comment on above: Order Comment: Speci men Type: BLOOD SPECIMENOrdering Facility: [facility] Address: [address] [place] [address] Performed By: #### 2 731-8, 2276-4, 39168-5, 64435-6 ####[facility] LABCLIA [id number] [place] [address] [place] Calcium [Mass/Vol] 9.9 mg/dL Normal 8.5-10.2 [facility] Comment on above: Order Comment: Speci men Type: BLOOD SPECIMENOrdering Facility: [facility] Address: [address] [place] [address] Performed By: #### 2 731-8, 2276-4, 08475-6, 82711-4 ####[facility] LABIA [id number] [place] [address] [place] Chloride [Moles/Vol] 110 mmol/L High 97-105 [facility] Comment on above: Order Comment: Speci men Type: BLOOD SPECIMENOrdering Facility: [facility] Address: [address] [place], [place] [address] Performed By: #### 2 731-8, 2276-4, 54493-5, 20455-7 ####[facility] LABCLIA [id number] [place] [id number] [place] CO2 [Moles/Vol] 20 mmol/L Low 22-30 [facility] Comment on above: Order Comment: Speci men Type: BLOOD SPECIMENOrdering Facility: [facility] Address: [address] [place] [address] Performed By: #### 2 731-8, 2276-4, 55281-3, 69331-0 ####[facility] LABCLIA [id number] [place] [address] [place] Creatinine [Mass/Vol] 2.28 mg/dL High 0.73-1.22 [facility] Comment on above: Order Comment: Speci men Type: BLOOD SPECIMENOrdering Facility: [facility] Address: [address] [address] Performed By: #### 2 731-8, 2276-4, 31373-1, 21735-7 ####[facility] LABIA [id number] [place] [address] [place] ESTIMATED GLOMERULAR FILTRATION RATE 27 mL/min/1.73m??? Low >=60 [facility] Comment on above: Order Comment: [facility] Type: BLOOD SPECIMENOrdering Facility: [facility] Address: [address] [place] [address] Result Comment: Xochilt mated Glomerular Filtration Rate (eGFR) is calculated using the 2020 CKD-EPI creatinine equation. This equation utilizes serum creatinine, sex, and age as parameters. The creatinine assay has traceable calibration to isotope dilution-mass spectrometry. Refer to KDIGO guidelines for clinical interpretation. In patients with unstable renal function, e.g. those with acute kidney injury, the eGFR may not accurately reflect actual GFR. Performed By: #### 2 731-8, 2276-4, 41565-2, 04066-4 ####[facility] LABIA [id number] [place] [id number] [place] Glucose [Mass/Vol] 104 mg/dL High 74-99 [facility] Comment on above: Order Comment: Speci men Type: BLOOD SPECIMENOrdering Facility: [facility] Address: [address] [address] Result Comment: The [place] Diabetes Association (ADA) provides guidance for cutoff values for fasting glucose and random glucose. The ADA defines fasting as no caloric intake for at least 8 hours. Fasting plasma glucose results between 100 to 125 mg/dL indicate increased risk for diabetes (prediabetes). Fasting plasma glucose results greater than or equal to 126 mg/dL meet the criteria for diagnosis of diabetes. In the absence of unequivocal hyperglycemia, results should be confirmed by repeat testing. In a patient with classic symptoms of hyperglycemia or hyperglycemic crisis, random plasma glucose results greater than or equal to 200 mg/dL meet the criteria for diagnosis of diabetes. Reference: Standards of Medical Care in Diabetes 2016, [place] [employer]. Diabetes Care. 2016.39(Suppl 1). Performed By: #### 2 731-8, 2276-4, 87933-7, 20028-3 ####[facility] LABIA [id number] [place] [address] [place] Phosphate [Mass/Vol] 3.9 mg/dL Normal 2.7-4.8 [facility] Comment on above: Order Comment: Speci men Type: BLOOD SPECIMENOrdering Facility: [facility] Address: [address] [place] [address] Performed By: #### 2 731-8, 2276-4, 62419-2, 99669-3 ####[facility] [id number] [place] [address] [place] Potassium [Moles/Vol] 4.9 mmol/L Normal 3.7-5.1 [facility] Comment on above: Order Comment: Speci men Type: BLOOD SPECIMENOrdering Facility: [facility] Address: [address] [place] [address] Performed By: #### 2 731-8, 2276-4, 07394-3, 13559-1 ####[facility] [id number] [place] [id number] [place] Sodium [Moles/Vol] 143 mmol/L Normal 136-144 [facility] Comment on above: Order Comment: Speci men Type: BLOOD SPECIMENOrdering Facility: [facility] Address: [address] [place] [address] Performed By: #### 2 731-8, 2276-4, 69809-1, 42385-2 ####[facility] LABCLIA [id number] [place] [address] [place] Urea nitrogen [Mass/Vol] 58 mg/dL High 9-24 [facility] Comment on above: Order Comment: Speci men Type: BLOOD SPECIMENOrdering Facility: [facility] Address: [address] [place] [address] Performed By: #### 2 731-8, 2276-4, 50398-1, 71910-6 ####[facility] LABIA [id number] [place] [address] [place] Urinalysis complete panel (U )on 05-28-2023 Bilirubin Ql (U) Negative Normal Negative [facility] Comment on above: Order Comment: Speci men Type: URINE SPECIMENOrdering Facility: [facility] Address: [address] [place] [address] Performed By: #### 2 4356-8 ####[facility] LABIA [id number] [place] [address] [place] Clarity (Unsp spec) Clear Normal Clear [facility] Comment on above: Order Comment: Speci men Type: URINE SPECIMENOrdering Facility: [facility] Address: [address] [place] [address] Performed By: #### 2 4356-8 ####[facility] LABIA [id number] [place] [address] [place] Color (U) Colorless Normal Yellow [facility] Comment on above: Order Comment: Speci men Type: URINE SPECIMENOrdering Facility: [facility] Address: [address] [place], [place] [address] Performed By: #### 2 4356-8 ####[facility] LABIA [id number] [place] [address] [place] Epithelial cells LM.HPF (Urine sed) [#/Area] Few Normal [facility] Comment on above: Order Comment: Speci men Type: URINE SPECIMENOrdering Facility: [facility] Address: [address] Performed By: #### 2 4356-8 ####[facility] LABCLIA [id number] [place] [address] [place] Glucose Test strip (U) [Mass/Vol] Negative Normal Trace, Negative [facility] Comment on above: Order Comment: Speci men Type: URINE SPECIMENOrdering Facility: [facility] Address: [address] Performed By: #### 2 4356-8 ####[facility] LABCLIA [id number] [place] [address] [place] Hemoglobin Ql (U) Negative Normal Negative, Trace [facility] Comment on above: Order Comment: Speci men Type: URINE SPECIMENOrdering Facility: [facility] Address: [address] Performed By: #### 2 4356-8 ####[facility] LABCLIA [id number] [place] [address] [place] Ketones Ql (U) Negative Normal Trace, Negative [facility] Comment on above: Order Comment: Speci men Type: URINE SPECIMENOrdering Facility: [facility] Address: [address] Performed By: #### 2 4356-8 ####[facility] LABCLIA [id number] [place] [address] [place] Leukocyte esterase Test strip Ql (U) Negative Normal Negative, 25 Shelbie/uL [facility] Comment on above: Order Comment: Speci men Type: URINE SPECIMENOrdering Facility: [facility] Address: [address] Performed By: #### 2 4356-8 ####[facility] LABCLIA [id number] [place] [address] [place] Nitrite Ql (U) Negative Normal Negative [facility] Comment on above: Order Comment: Speci men Type: URINE SPECIMENOrdering Facility: [facility] Address: [address] [place] [address] Performed By: #### 2 4356-8 ####[facility] LABIA [id number] [place] [address] [place] pH (U) 6.0 [pH] Normal 5.0-8.0 [facility] Comment on above: Order Comment: Speci men Type: URINE SPECIMENOrdering Facility: [facility] Address: [address] [place] [address] Performed By: #### 2 4356-8 ####[facility] LABIA [id number] [address] [place] Protein (U) [Mass/Vol] Trace Normal Trace , Negative [facility] Comment on above: Order Comment: Speci men Type: URINE SPECIMENOrdering Facility: [facility] Address: [address] [place] [address] Performed By: #### 2 4356-8 ####[facility] LABIA [id number] [place] [address] [place] RBC LM.HPF (Urine sed) [#/Area] 0-3 /HPF Normal 0-3 /HPF [facility] Comment on above: Order Comment: Speci men Type: URINE SPECIMENOrdering Facility: [facility] Address: [address] [place] [address] Performed By: #### 2 4356-8 ####[facility] LABIA [id number] [place] [address] [place] Specific gravity (U) [Rel density] 1.015 Normal 1.005-1.03 0 [facility] Comment on above: Order Comment: Speci men Type: URINE SPECIMENOrdering Facility: [facility] Address: [address] [place] [address] Performed By: #### 2 4356-8 ####[facility] LABCLIA [id number] [place] [address] [place] Urobilinogen Ql (U) Negative Normal Negative [facility] Comment on above: Order Comment: Speci men Type: URINE SPECIMENOrdering Facility: [facility] Address: [address] [place] [address] Performed By: #### 2 4356-8 ####[facility] LABIA [id number] [place] [address] [place] WBC LM.HPF (Urine sed) [#/Area] 0-5 /HPF Normal 0-5 /HPF [facility] Comment on above: Order Comment: Speci men Type: URINE SPECIMENOrdering Facility: [facility] Address: [address] [place] [address] Performed By: #### 2 4356-8 ####[facility] LABIA [id number] [place] [address] [place] CNOVon 04-26-2023 CNOV Office Visit ([facility] ) -- DARCY LUCAS ([id number]) 1935 M T Date Time Provider Department 04/26/23 11:40 AM CAT ART During your visit today, we recorded the following information about you: Pulse Blood pressure Weight Height 91/minute 141/79 66.2 kg 1.778 m Cat Art MD 04/26/2023 12:37 PM Signed [facility] SERVICE DATE: 04/26/2023 SERVICE TIME: 11:24 AM Some elements of this note have been copied from my clinic note from 02/09/2023 and have been updated where appropriate. This note has been edited for changes in the patient's condition. All reflect current evaluation, analysis and medical decision-making from today, 04/26/2023. CHIEF COMPLAINT: CKD follow-up HPI: Mr. 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 atorvastatin (LIPITOR) 40 mg tablet Take 1 tablet by mouth once daily. Coenzyme Z33-Wgpthkz E 100-100 mg cap Take by mouth. [...] Take 1 tablet by mouth once daily. Mrlsw-7-SST-EPA-Fish Oil 1,000 mg (120 mg-180 mg) cap [...] pain. ubidecarenone/vitamin E mixed (COQ10 SG 100 ORAL (more content not included)... Normal [facility] Renal function 2000 panelon 02-23-2023 Albumin [Mass/Vol] 4.3 g/dL Normal 3.9-4.9 [facility] Comment on above: Order Comment: Speci men Type: BLOOD SPECIMENOrdering Facility: [facility] Address: [address] [place] [address] Performed By: #### 2 4362-6 ####[facility] LABIA [id number] [place] [address] [place] Anion gap [Moles/Vol] 14 mmol/L Normal 9-18 [facility] Comment on above: Order Comment: Speci men Type: BLOOD SPECIMENOrdering Facility: [facility] Address: [address] [place] [address] Performed By: #### 2 4362-6 ####[facility] LABIA [id number] [place] [address] [place] Calcium [Mass/Vol] 9.7 mg/dL Normal 8.5-10.2 [facility] Comment on above: Order Comment: Speci men Type: BLOOD SPECIMENOrdering Facility: [facility] Address: [address] Performed By: #### 2 4362-6 ####[facility] LABIA [id number] [place] [address] [place] Chloride [Moles/Vol] 110 mmol/L High 97-105 [facility] Comment on above: Order Comment: Speci men Type: BLOOD SPECIMENOrdering Facility: [facility] Address: [address] Performed By: #### 2 4362-6 ####[facility] LABCLIA [id number] [place] [address] [place] CO2 [Moles/Vol] 20 mmol/L Low 22-30 [facility] Comment on above: Order Comment: Speci men Type: BLOOD SPECIMENOrdering Facility: [facility] Address: [address] [place] [address] Performed By: #### 2 4362-6 ####[facility] LABCLIA [id number] [place] [address] [place] Creatinine [Mass/Vol] 2.16 mg/dL High 0.73-1.22 [facility] Comment on above: Order Comment: Speci men Type: BLOOD SPECIMENOrdering Facility: [facility] [facility] Address: [address] [place] [address] Performed By: #### 2 4362-6 ####[facility] LABIA [id number] [place] [address] [place] ESTIMATED GLOMERULAR FILTRATION RATE 29 mL/min/1.73m??? Low >=60 [facility] Comment on above: Order Comment: Speci men Type: BLOOD SPECIMENOrdering Facility: [facility] Address: [address] [place] [address] Result Comment: Xochilt mated Glomerular Filtration Rate (eGFR) is calculated using the 2020 CKD-EPI creatinine equation. This equation utilizes serum creatinine, sex, and age as parameters. The creatinine assay has traceable calibration to isotope dilution-mass spectrometry. Refer to KDIGO guidelines for clinical interpretation. In patients with unstable renal function, e.g. those with acute kidney injury, the eGFR may not accurately reflect actual GFR. Performed By: #### 2 4362-6 ####[facility] LABIA [id number] [place] [address] [place] Glucose [Mass/Vol] 109 mg/dL High 74-99 [facility] Comment on above: Order Comment: Speci men Type: BLOOD SPECIMENOrdering Facility: [facility] Address: [facility] [place] [address] Result Comment: The [place] Diabetes Association (ADA) provides guidance for cutoff values for fasting glucose and random glucose. The ADA defines fasting as no caloric intake for at least 8 hours. Fasting plasma glucose results between 100 to 125 mg/dL indicate increased risk for diabetes (prediabetes). Fasting plasma glucose results greater than or equal to 126 mg/dL meet the criteria for diagnosis of diabetes. In the absence of unequivocal hyperglycemia, results should be confirmed by repeat testing. In a patient with classic symptoms of hyperglycemia or hyperglycemic crisis, random plasma glucose results greater than or equal to 200 mg/dL meet the criteria for diagnosis of diabetes. Reference: Standards of Medical Care in Diabetes 2016, [place] Diabetes Association. Diabetes Care. 2016.39(Suppl 1). Performed By: #### 2 4362-6 ####[facility] LABIA [id number] [place] [address] [place] Phosphate [Mass/Vol] 3.9 mg/dL Normal 2.7-4.8 [facility] Comment on above: Order Comment: Speci men Type: BLOOD SPECIMENOrdering Facility: [facility] Address: [address] [place] [address] Performed By: #### 2 4362-6 ####[facility] LABIA [id number] [place] [address] [place] Potassium [Moles/Vol] 4.9 mmol/L Normal 3.7-5.1 [facility] Comment on above: Order Comment: Speci men Type: BLOOD SPECIMENOrdering Facility: [facility] Address: [address] [place] [address] Performed By: #### 2 4362-6 ####[facility] LABIA [id number] [place] [address] [place] Sodium [Moles/Vol] 144 mmol/L Normal 136-144 [facility] Comment on above: Order Comment: Speci men Type: BLOOD SPECIMENOrdering Facility: [facility] Address: [address] [facility] [address] Performed By: #### 2 4362-6 ####[facility] LABCLIA [id number] [place] [address] [place] Urea nitrogen [Mass/Vol] 46 mg/dL High 9-24 [facility] Comment on above: Order Comment: Speci men Type: BLOOD SPECIMENOrdering Facility: [facility] Address: [address] [place] [address] Performed By: #### 2 4362-6 ####[facility] LABCLIA [id number] [place] [address] [place] LIPID PANEL, NONFASTINGon Cholesterol [Mass/Vol] 103 mg/dL <200 mg/dL [facility] HDL Cholesterol, Nonfasting 35 mg/dL Low >39 mg/dL [facility] LDL Cholesterol, Nonfasting 54 mg/dL <100 mg/dL [facility] LDL/HDL Ratio, Nonfasting 1.54 mg/dL <2.54 mg/dL [facility] Non HDL Cholesterol, Nonfasting 68 mg/dL <130 mg/dL [facility] Total Chol/HDL Ratio, Nonfasting 2.94 mg/dL <5.10 mg/dL [facility] Triglycerides, Nonfasting 69 mg/dL <150 mg/dL [facility] VLDL Cholesterol, Nonfasting 14 mg/dL <30 mg/dL [facility] URIC ACID BLOODon 02-03-2023 Urate [Mass/Vol] 3.1 mg/dL Low 4.0 - 8.1 mg/dL [facility] Basic metabolic 2000 panelon 02-02-2023 Anion gap [Moles/Vol] 11 mmol/L Normal 9-18 [facility] Comment on above: Order Comment: Speci men Type: BLOOD SPECIMENOrdering Facility: [facility] Address: [facility] [place] [address] Performed By: #### 2 4321-2, 3084-1, LIPNF ####[facility] LABIA [id number] [place] [address] [place] Calcium [Mass/Vol] 9.8 mg/dL Normal 8.5-10.2 [facility] Comment on above: Order Comment: Speci men Type: BLOOD SPECIMENOrdering Facility: [facility] Address: [address] [place], [place] [id number] Performed By: #### 2 4321-2, 3084-1, LIPNF ####[facility] LABCLIA [id number] [place] [address] [place] Chloride [Moles/Vol] 109 mmol/L High 97-105 [facility] Comment on above: Order Comment: Speci men Type: BLOOD SPECIMENOrdering Facility: [facility] Address: [address] [place] [address] Performed By: #### 2 4321-2, 3084-1, LIPNF ####[facility] LABCLIA [id number] [place] [address] [place] CO2 [Moles/Vol] 18 mmol/L Low 22-30 [facility] Comment on above: Order Comment: Speci men Type: BLOOD SPECIMENOrdering Facility: [facility] Address: [address] [place], [place] [id number] Performed By: #### 2 4321-2, 3084-1, LIPNF ####[facility] LABCLIA [id number] [place] [address] [place] Creatinine [Mass/Vol] 2.37 mg/dL High 0.73-1.22 [facility] Comment on above: Order Comment: Speci men Type: BLOOD SPECIMENOrdering Facility: [facility] Address: [address] [place], [place] [id number] Performed By: #### 2 4321-2, 3084-1, LIPNF ####[facility] LABCLIA [id number] [place] [address] [place] ESTIMATED GLOMERULAR FILTRATION RATE 26 mL/min/1.73m??? Low >=60 [facility] Comment on above: Order Comment: Nathaniel amaya Type: BLOOD SPECIMENOrdering Facility: [facility] Address: [address] [place] [id number] Result Comment: Xochilt mated Glomerular Filtration Rate (eGFR) is calculated using the 2020 CKD-EPI creatinine equation. This equation utilizes serum creatinine, sex, and age as parameters. The creatinine assay has traceable calibration to isotope dilution-mass spectrometry. Refer to KDIGO guidelines for clinical interpretation. In patients with unstable renal function, e.g. those with acute kidney injury, the eGFR may not accurately reflect actual GFR. Performed By: #### 2 4321-2, 3084-1, LIPNF ####[facility] LABIA [id number] [place] [address] [place] Glucose [Mass/Vol] 100 mg/dL High 74-99 [facility] Comment on above: Order Comment: Nathaniel amaya Type: BLOOD SPECIMENOrdering Facility: [facility] Address: [address] [place] [address] Result Comment: The [place] Diabetes Association (ADA) provides guidance for cutoff values for fasting glucose and random glucose. The ADA defines fasting as no caloric intake for at least 8 hours. Fasting plasma glucose results between 100 to 125 mg/dL indicate increased risk for diabetes (prediabetes). Fasting plasma glucose results greater than or equal to 126 mg/dL meet the criteria for diagnosis of diabetes. In the absence of unequivocal hyperglycemia, results should be confirmed by repeat testing. In a patient with classic symptoms of hyperglycemia or hyperglycemic crisis, random plasma glucose results greater than or equal to 200 mg/dL meet the criteria for diagnosis of diabetes. Reference: Standards of Medical Care in Diabetes 2016, [place] Diabetes Association. Diabetes Care. 2016.39(Suppl 1). Performed By: #### 2 4321-2, 3084-1, LIPNF ####[facility] LABIA [id number] [place] [address] [place] Potassium [Moles/Vol] 5.8 mmol/L High 3.7-5.1 [facility] Comment on above: Order Comment: Nathaniel amaya Type: BLOOD SPECIMENOrdering Facility: [facility] Address: [address] [place] [address] Performed By: #### 2 4321-2, 3084-1, LIPNF ####[facility] LABIA [id number] [place] [address] [place] Sodium [Moles/Vol] 138 mmol/L Normal 136-144 [facility] Comment on above: Order Comment: Speci men Type: BLOOD SPECIMENOrdering Facility: [facility] Address: [address] [place] [address] Performed By: #### 2 4321-2, 3084-1, LIPNF ####[facility] LABIA [id number] [place] [address] [place] Urea nitrogen [Mass/Vol] 62 mg/dL High 9-24 [facility] Comment on above: Order Comment: Speci men Type: BLOOD SPECIMENOrdering Facility: [facility] Address: [address] [place] [address] Performed By: #### 2 4321-2, 3084-1, LIPNF ####[facility] LABIA [id number] [address] [place] CNOVon 02-02-2023 CNOV Office Visit (INTMWS ) -- DARCY LUCAS ([id number]) 1935 M T Date Time Provider Department 02/02/23 3:40 PM ARNOLD SPENCER INTPerWS During your visit today, we recorded the following information about you: Temperature Pulse Respiration Blood pressure 97.6 degrees 93/minute 18/minute 122/68 Weight 65.8 kg Arnold Spencer MD 03/01/2023 2:10 AM Signed This note was created using Apprissriter. Subjective Darcy Lucas is a 87 year old male. Patient presents with: F/U 6 months SUBJECTIVE: Darcy Lucas is a 87 year old year old [...] tablets by mouth every Wednesday,Wednesday,Wednesday. Lacto 21-Bifido 8-X-T1-B6-B12 (UP4 PROBIOTICS MEN'S) 50 billion cell -90 mg-30 mcg cap Take 1 tablet by mouth once daily. atorvastatin (LIPITOR) 40 mg tablet Take 1 tablet by mouth once daily. Coenzyme U67-Zayvsaz E 100-100 mg cap Take by mouth. [...] 10 mEq by mouth once daily. Takes Wed/Wed/Wed/Sun) sacubitril-valsartan (ENTRESTO) 49-51 mg tablet Take 1 [...] Take 1 tablet by mouth once daily. Gpntv-6-UBO-EPA-Fish Oil 1,000 mg (120 mg-180 mg) cap [...] I10 LIPID PANEL, NONFASTING 2. Hyperuricemia E79.0 allopu (more content not included)... Normal [facility] LIPID PANEL, NONFASTINGon Cholesterol [Mass/Vol] 103 mg/dL Normal <200 [facility] Comment on above: Order Comment: Speci men Type: BLOOD SPECIMENOrdering Facility: [facility] Address: [address] [place] [address] Result Comment: <200 mg/dL, Desirable 200-239 mg/dL, Borderline high >239 mg/dL, High Performed By: #### 2 4321-2, 3084-1, LIPNF ####[facility] LABCLIA [id number] [place] [address] [place] HDL CHOLESTEROL, NF 35 mg/dL Low >39 [facility] Comment on above: Order Comment: Nathaniel amaya Type: BLOOD SPECIMENOrdering Facility: [facility] Address: [address] [place] [address] Result Comment: 40-5 9 mg/dL, Acceptable >59 mg/dL, High: Negative risk factor for coronary heart disease <40 mg/dL, Low: Positive risk factor for coronary heart disease Performed By: #### 2 4321-2, 3084-1, LIPNF ####[facility] LABCLIA [id number] [place] [address] [place] LDL CHOLESTEROL, NF 54 mg/dL Normal <100 [facility] Comment on above: Order Comment: Nathaniel amaya Type: BLOOD SPECIMENOrdering Facility: [facility] Address: [address] [place] [address] Result Comment: <100 mg/dL, Optimal 100-129 mg/dL, Near optimal/above optimal 130-159 mg/dL, Borderline high 160-189 mg/dL, High >189 mg/dL, Very high Secondary prevention optimal LDL Cholesterol levels are recommended to be < 70 mg/dL Performed By: #### 2 4321-2, 308-1, LIPNF ####[facility] LABCLIA [id number] [place] [address] [place] LDL/HDL RATIO, NF 1.54 mg/dL Normal <2.54 [facility] Comment on above: Order Comment: Speci men Type: BLOOD SPECIMENOrdering Facility: [facility] Address: [address] [place] [address] Result Comment: Refe rence: 1. National Cholesterol Education Program ATP III Guideline At-A-Glance Quick Desk Reference: National Heart, Lung, and Blood [place]. National Institutes of Health. 2001: NIH Publication No. 01-3305. 2. An International Atherosclerosis Society position paper: global recommendations for the management of dyslipidemia: executive summary, Atherosclerosis. 2014: 232(2):410-413. Performed By: #### 2 4321-2, 3083-, LIPNF ####[facility] LABCLIA [id number] [place] [address] [place] NON HDL CHOL, NF 68 mg/dL Normal <130 [facility] Comment on above: Order Comment: Speci men Type: BLOOD SPECIMENOrdering Facility: [facility] Address: [address] [place] [address] Result Comment: <130 mg/dL, Optimal 130-159 mg/dL, Near optimal/above optimal 160-189 mg/dL, Borderline high 190-219 mg/dL, High >219 mg/dL, Very high Secondary prevention optimal non HDL Cholesterol levels are recommended to be <100 mg/dL Performed By: #### 2 4321-2, 3083-1, LIPNF ####[facility] LABCLIA [id number] [place] [address] [place] T CHOL/HDL RATIO NF 2.94 mg/dL Normal <5.10 [facility] Comment on above: Order Comment: Speci men Type: BLOOD SPECIMENOrdering Facility: [facility] Address: [address] [place] [address] Performed By: #### 2 4321-2, 3084-1, LIPNF ####[facility] LABCLIA [id number] [place] [address] [place] TRIGLYCERIDES, NF 69 mg/dL Normal <150 [facility] Comment on above: Order Comment: Speci men Type: BLOOD SPECIMENOrdering Facility: [facility] Address: [address] [place] [address] Result Comment: <150 mg/dL, Normal 150-199 mg/dL, Borderline high 200-499 mg/dL, High >499 mg/dL, Very high Performed By: #### 2 4321-2, 3084-1, LIPNF ####[facility] LABCLIA [id number] [place] [address] [place] VLDL CHOLESTEROL, NF 14 mg/dL Normal <30 [facility] Comment on above: Order Comment: Speci men Type: BLOOD SPECIMENOrdering Facility: [facility] Address: [address] [place] [address] Performed By: #### 2 4321-2, 3084-1, LIPNF ####[facility] LABCLIA [id number] [place] [address] [place] Urate SerPl-mCncon 3 Urate [Mass/Vol] 3.1 mg/dL Low 4.0-8.1 [facility] Comment on above: Order Comment: Speci men Type: BLOOD SPECIMENOrdering Facility: [facility] Address: [address] [place] [address] Performed By: #### 2 4321-2, 3084-1, LIPNF ####[facility] LABCLIA [id number] [place] [address] [place] Basic metabolic 2000 panelon 12-10-2022 Anion gap [Moles/Vol] 11 mmol/L Normal 9-18 [facility] Comment on above: Order Comment: Speci men Type: BLOOD SPECIMENOrdering Facility: [facility] Address: [address] [place] [address] Performed By: #### 2 4321-2 ####[facility] LABCLIA [id number] [place] [address] [place] Calcium [Mass/Vol] 10.2 mg/dL Normal 8.5-10.2 [facility] Comment on above: Order Comment: Speci men Type: BLOOD SPECIMENOrdering Facility: [facility] Address: [address] [place] [address] Performed By: #### 2 4321-2 ####[facility] LABCLIA [id number] [place] [address] [place] Chloride [Moles/Vol] 106 mmol/L High 97-105 [facility] Comment on above: Order Comment: Speci men Type: BLOOD SPECIMENOrdering Facility: [facility] Address: [address] [place] [address] Performed By: #### 2 4321-2 ####[facility] LABCLIA [id number] [place] [address] [place] CO2 [Moles/Vol] 23 mmol/L Normal 22-30 [facility] Comment on above: Order Comment: Speci men Type: BLOOD SPECIMENOrdering Facility: [facility] Address: [address] [place], [place] [id number] Performed By: #### 2 4321-2 ####[facility] LABCLIA [id number] [place] [address] [place] Creatinine [Mass/Vol] 2.56 mg/dL High 0.73-1.22 [facility] Comment on above: Order Comment: Speci men Type: BLOOD SPECIMENOrdering Facility: [facility] Address: [address] [place] [address] Performed By: #### 2 4321-2 ####[facility] LABCLIA [id number] [place] [address] [place] [facility] ESTIMATED GLOMERULAR FILTRATION RATE 24 mL/min/1.73m??? Low >=60 [facility] Comment on above: Order Comment: Nathaniel amaya Type: BLOOD SPECIMENOrdering Facility: [facility] Address: [address] [place] [address] Result Comment: Xochilt mated Glomerular Filtration Rate (eGFR) is calculated using the 2020 CKD-EPI creatinine equation. This equation utilizes serum creatinine, sex, and age as parameters. The creatinine assay has traceable calibration to isotope dilution-mass spectrometry. Refer to KDIGO guidelines for clinical interpretation. In patients with unstable renal function, e.g. those with acute kidney injury, the eGFR may not accurately reflect actual GFR. Performed By: #### 2 4321-2 ####[facility] LABIA [id number] [place] [address] [place] Glucose [Mass/Vol] 99 mg/dL Normal 74-99 [facility] Comment on above: Order Comment: Nathaniel amaya Type: BLOOD SPECIMENOrdering Facility: [facility] Address: [address] [place] [address] Result Comment: The [place] Diabetes Association (ADA) provides guidance for cutoff values for fasting glucose and random glucose. The ADA defines fasting as no caloric intake for at least 8 hours. Fasting plasma glucose results between 100 to 125 mg/dL indicate increased risk for diabetes (prediabetes). Fasting plasma glucose results greater than or equal to 126 mg/dL meet the criteria for diagnosis of diabetes. In the absence of unequivocal hyperglycemia, results should be confirmed by repeat testing. In a patient with classic symptoms of hyperglycemia or hyperglycemic crisis, random plasma glucose results greater than or equal to 200 mg/dL meet the criteria for diagnosis of diabetes. Reference: Standards of Medical Care in Diabetes 2016, [place] Diabetes Association. Diabetes Care. 2016.39(Suppl 1). Performed By: #### 2 4321-2 ####[facility] LABCLIA [id number] [place] [address] [place] Potassium [Moles/Vol] 5.1 mmol/L Normal 3.7-5.1 [facility] Comment on above: Order Comment: Speci men Type: BLOOD SPECIMENOrdering Facility: [facility] Address: [address] [place] [address] Performed By: #### 2 4321-2 ####[facility] LABCLIA [id number] [address] [place] Sodium [Moles/Vol] 140 mmol/L Normal 136-144 [facility] Comment on above: Order Comment: Speci men Type: BLOOD SPECIMENOrdering Facility: [facility] Address: [address] [place] [address] Performed By: #### 2 4321-2 ####[facility] LABCLIA [id number] [address] [place] Urea nitrogen [Mass/Vol] 65 mg/dL High 9-24 [facility] Comment on above: Order Comment: Speci men Type: BLOOD SPECIMENOrdering Facility: [facility] Address: [address] [place] [address] Performed By: #### 2 4321-2 ####[facility] LABCLIA [id number] [address] [place] Edd 12-09-2022 CNPN Telephone (INTMWS) -- DARCY LUCAS ([id number]) 1935 M T Date Time Provider Department 12/09/22 ARNOLD SPENCER INTWS During your visit today, we recorded the following information about you: Angelina Lugo [facility] 12/09/2022 9:31 AM Signed Darcy Lucas is a patient of Arnold Spencer MD today Herson spouse is calling and asking if he should still be taking the following medication based on his last test results: magnesium oxide (MAG-OX) 400 mg (241.3 mg magnesium) tablet 30 tablet 1 10/14/2022 Sig: Take 1 tablet by mouth once daily. Sent to pharmacy as: magnesium oxide (MAG-OX) 400 mg (241.3 mg magnesium) tablet Class: Normal Route: ORAL Order: [id number] E-Prescribing Status: Receipt confirmed by pharmacy (10/14/2022 5:10 PM EST) If his PCP and Cost Recovery Technician want him to continue to take this medication then he needs another prescription sent to [facility] [place]. Please call Herson with the answer. Patient has been identified by name and birthdate. Duration of symptoms: N/A Person calling: spouse: Herson Call patient at: at home [phone] (home) [phone] (cell) Was an appointment scheduled: No Closing statement: Results or non-symptom based questions: Thank you for calling [facility], your call will be returned within the next business day. Angelina Lugo [facility] Lindy Bosch 12/15/2022 11:05 AM Signed Patient's spouse calling to check the status of the request listed in encounter. Please return call to spouse @ [phone] Jennifer Salgado APRN.SB 12/16/2022 2:10 PM Signed Note from nephrology on last labs states: , your kidney function started to slowly improve and now at 24%, which is better than a week ago when it was 20%. Your potassium level has also improved and now normal. Please, continue your current medication regimen. Let me know if you have any questions. Based on that if he has been taking the magnesium then yes, I would agree he continue taking this. A new script will be sent. Jennifer Salgado APRN.SB Membreno LPN 12/16/2022 2:56 PM Signed PATIENT's NOTIFIED OF SAME. Allergies As of Date: 12/09/2022 Noted Allergy Reaction INDOCIN (INDOMETHACIN SODIUM) 03/22/2012 8 - GI Upset NORVASC (AMLODIPINE BESYLATE) 12/16/2018 14 - Other: See Comments Comments: Dizziness DNVOFXO-JYZ-ZKE REDUCTASE INHIBIT*07/10/2014 14 - Other: See Comments Comments: myalgia LISINOPRIL 12/12/2020 3 - Cough Date Reviewed: 11/19/2022 Reviewed by: 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 - Fully Assessed Reason for Visit: Medication Question [1478] Order(s):magnesium oxide (MAG-OX) 400 mg (241.3 mg magnesium) tabletTake 1 tablet by mouth once daily.Disp: 30 tabletRfl: 1 Prescriptions as of 12/16/2022 - magnesium oxide (MAG-OX) 400 mg (241.3 mg magnesium) tablet Take 1 tablet by mouth once daily. - torsemide (DEMADEX) 10 mg tablet Take 2 tablets by mouth every Wednesday,Wednesday,Wednesday. - benzonatate (TESSALON PERLES) 100 mg capsule Take 1-2 capsules by mouth three times daily as needed for cough. - Lacto 21-Bifido 5-U-E8-B6-B12 (UP4 PROBIOTICS MEN'S) 50 billion cell -90 mg-30 mcg cap Take 1 tablet by mouth once daily. - atorvastatin (LIPITOR) 40 mg tablet Take 1 tablet by mouth once daily. - Coenzyme K24-Vehoeyg E 100-100 mg cap Take by mouth. - loperamide (IMODIUM) 2 mg cap(s) Take 2 mg by mouth four times daily as needed. - nitroglycerin sublingual (NITROQUICK) 0.4 mg SL tablet Dissolve 0.4 mg under the tongue every 5 minutes as needed for chest pain. - tamsulosin (FLOMAX) 0.4 mg Take 0.4 mg by mouth once daily. - potassium chloride SR (MICRO-K) 10 mEq CR capsule Take 1 capsule by mouth twice daily. - allopurinol (ZYLOPRIM) 100 mg tablet Take 2 tablets by mouth once daily. For gout. - sacubitril-valsartan (ENTRESTO) 49-51 mg tablet Take [...] 1 tablet by mouth once daily. - Lkpfv-5-LYR-EPA-Fish Oil 1,000 mg (120 mg-180 mg) cap Take 2 g by mouth once daily. - PSYLLIUM HUSK, BULK, MISC Take 1 Packet by mouth once daily. Takes as needed - pyridoxine, vitamin B6, (VITAMIN B-6) 100 mg tablet Take 1 tablet by mouth once daily. Problem (more content not included)... Normal [facility] 12-04-2022 [facility] Telephone (AGCARDPOB ) -- DARCY LUCAS ([id number]) 1935 M [facility] Date Time Provider Department 12/04/22 CAPRI GUILLAUME AGCARDPOB During your visit today, we recorded the following information about you: Elizabeth Evans RN 12/04/2022 12:01 PM Signed Left message for pt to return phone call. Inquiring about who he is getting his eliquis filled with. [facility] We have not [facility] it since 2020. He may be getting assistance through the assistance program. Please verify. ANA CRISTINA Gardner LPN 12/08/2022 11:25 AM Addendum Patients calls back. Dr. Rodriguez is the prescriber. They usually get it from [employer] assistance. She requested new paper work 09/30/23 to be sent from [employer] but it never came. She wants to know what to do from here? Does she need to call them and request the paperwork again? GWEN Kuo RN 12/08/2022 2:16 PM Signed S/w pt . Instructed her to call [employer] again for patient assistance paperwork. I also advised her to follow up with Dr Harvey's office for the rx for eliquis since the pt's has seen him more recently. Elizabeth Evans RN Allergies As of Date: 12/04/2022 Noted Allergy Reaction INDOCIN (INDOMETHACIN SODIUM) 03/22/2012 8 - GI Upset NORVASC (AMLODIPINE BESYLATE) 12/16/2018 14 - Other: See Comments Comments: Dizziness PGNGYEO-RXP-PGX REDUCTASE INHIBIT*07/10/2014 14 - Other: See Comments Comments: myalgia LISINOPRIL 12/12/2020 3 - Cough Date Reviewed: 11/19/2022 Reviewed by: 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 - Fully Assessed Reason for Visit: 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 [3602] Prescriptions as of 12/08/2022 - torsemide (DEMADEX) 10 mg tablet Take 2 tablets by mouth every Wednesday,Wednesday,Wednesday. - benzonatate (TESSALON PERLES) 100 mg capsule Take 1-2 capsules by mouth three times daily as needed for cough. - Lacto 21-Bifido 7-P-X9-B6-B12 (UP4 PROBIOTICS MEN'S) 50 billion cell -90 mg-30 mcg cap Take 1 tablet by mouth once daily. - magnesium oxide (MAG-OX) 400 mg (241.3 mg magnesium) tablet Take 1 tablet by mouth once daily. - atorvastatin (LIPITOR) 40 mg tablet Take 1 tablet by mouth once daily. - Coenzyme O52-Tvesttf E 100-100 mg cap Take by mouth. - loperamide (IMODIUM) 2 mg cap(s) Take 2 mg by mouth four times daily as needed. - nitroglycerin sublingual (NITROQUICK) 0.4 mg SL tablet Dissolve 0.4 mg under the tongue every 5 minutes as needed for chest pain. - tamsulosin (FLOMAX) 0.4 mg Take 0.4 mg by mouth once daily. - potassium chloride SR (MICRO-K) 10 mEq CR capsule Take 1 capsule by mouth twice daily. - allopurinol (ZYLOPRIM) 100 mg tablet Take 2 tablets by mouth once daily. For gout. - sacubitril-valsartan (ENTRESTO) 49-51 mg tablet Take [...] 1 tablet by mouth once daily. - Xcoid-0-QWM-EPA-Fish Oil 1,000 mg (120 mg-180 mg) cap Take 2 g by mouth once daily. - PSYLLIUM HUSK, BULK, MISC Take 1 Packet by mouth once daily. Takes as needed - pyridoxine, vitamin B6, (VITAMIN B-6) 100 mg tablet Take 1 tablet by mouth once daily. 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 Normal [facility] Renal function 2000 panelon 12-03-2022 Albumin [Mass/Vol] 4.6 g/dL Normal 3.9-4.9 [facility] Comment on above: Order Comment: Speci men Type: BLOOD SPECIMENOrdering Facility: [facility] Address: [address] [address] Performed By: #### 2 4362-6 ####[facility] LABIA [id number] [place] [address] [place] Anion gap [Moles/Vol] 9 mmol/L Normal 9-18 [facility] Comment on above: Order Comment: Speci men Type: BLOOD SPECIMENOrdering Facility: [facility] Address: [address] [address] Performed By: #### 2 4362-6 ####[facility] LABCLIA [id number] [place] [address] [place] Calcium [Mass/Vol] 10.3 mg/dL High 8.5-10.2 [facility] Comment on above: Order Comment: Speci men Type: BLOOD SPECIMENOrdering Facility: [facility] Address: [address] [address] Performed By: #### 2 4362-6 ####[facility] LABCLIA [id number] [place] [address] [place] Chloride [Moles/Vol] 105 mmol/L Normal 97-105 [facility] Comment on above: Order Comment: Speci men Type: BLOOD SPECIMENOrdering Facility: [facility] Address: [address] [address] Performed By: #### 2 4362-6 ####[facility] LABCLIA [id number] [place] [address] [place] CO2 [Moles/Vol] 26 mmol/L Normal 22-30 [facility] Comment on above: Order Comment: Speci men Type: BLOOD SPECIMENOrdering Facility: [facility] Address: [address] [address] Performed By: #### 2 4362-6 ####[facility] LABCLIA [id number] [place] [address] [place] Creatinine [Mass/Vol] 2.95 mg/dL High 0.73-1.22 [facility] Comment on above: Order Comment: Speci men Type: BLOOD SPECIMENOrdering Facility: [facility] Address: [address] Performed By: #### 2 4362-6 ####[facility] LABCLIA [id number] [place] [address] [place] ESTIMATED GLOMERULAR FILTRATION RATE 20 mL/min/1.73m??? Low >=60 [facility] Comment on above: Order Comment: Speci men Type: BLOOD SPECIMENOrdering Facility: [facility] Address: [address] [place] [address] Result Comment: Xochilt mated Glomerular Filtration Rate (eGFR) is calculated using the 2021 CKD-EPI creatinine equation. This equation utilizes serum creatinine, sex, and age as parameters. The creatinine assay has traceable calibration to isotope dilution-mass spectrometry. Refer to KDIGO guidelines for clinical interpretation. In patients with unstable renal function, e.g. those with acute kidney injury, the eGFR may not accurately reflect actual GFR. Performed By: #### 2 4362-6 ####[facility] LABCLIA [id number] [place] [address] [place] Glucose [Mass/Vol] 94 mg/dL Normal 74-99 [facility] Comment on above: Order Comment: Nathaniel amaya Type: BLOOD SPECIMENOrdering Facility: [facility] Address: [address] [address] Result Comment: The [place] Diabetes Association (ADA) provides guidance for cutoff values for fasting glucose and random glucose. The ADA defines fasting as no caloric intake for at least 8 hours. Fasting plasma glucose results between 100 to 125 mg/dL indicate increased risk for diabetes (prediabetes). Fasting plasma glucose results greater than or equal to 126 mg/dL meet the criteria for diagnosis of diabetes. In the absence of unequivocal hyperglycemia, results should be confirmed by repeat testing. In a patient with classic symptoms of hyperglycemia or hyperglycemic crisis, random plasma glucose results greater than or equal to 200 mg/dL meet the criteria for diagnosis of diabetes. Reference: Standards of Medical Care in Diabetes 2016, [place] [employer] Association. Diabetes Care. 2016.39(Suppl 1). Performed By: #### 2 4362-6 ####[facility] LABCLIA [id number] [place] [address] [place] Phosphate [Mass/Vol] 4.2 mg/dL Normal 2.7-4.8 [facility] Comment on above: Order Comment: Nathaniel amaya Type: BLOOD SPECIMENOrdering Facility: [facility] Address: [address] [id number] Performed By: #### 2 4362-6 ####[facility] LABCLIA [id number] [place] [address] [place] Potassium [Moles/Vol] 5.9 mmol/L High 3.7-5.1 [facility] Comment on above: Order Comment: Speci men Type: BLOOD SPECIMENOrdering Facility: [facility] Address: [address] [address] Performed By: #### 2 4362-6 ####[facility] LABCLIA [id number] [place] [address] [place] Sodium [Moles/Vol] 140 mmol/L Normal 136-144 [facility] Comment on above: Order Comment: Speci men Type: BLOOD SPECIMENOrdering Facility: [facility] Address: [address] [address] Performed By: #### 2 4362-6 ####[facility] LABCLIA [id number] [place] [address] [place] Urea nitrogen [Mass/Vol] 50 mg/dL High 9-24 [facility] Comment on above: Order Comment: Speci men Type: BLOOD SPECIMENOrdering Facility: [facility] Address: [address] [address] Performed By: #### 2 4362-6 ####[facility] LABCLIA [id number] [place] [address] [place] Basophil percentageOrdered B y: Haile Martin on 11-26-2022 Chloride [Moles/Vol] 109 mmol/L 98-107 [facility] Glucose [Mass/Vol] 93 mg/dL 74-106 [facility] Potassium [Moles/Vol] 3.2 mmol/L 3.5-5.1 [facility] Sodium [Moles/Vol] 144 mmol/L 136-145 [facility] Laboratory - Chemistry and C hemistry - challengeOrdered By: Haile Martin on 11-26-2022 CO2 [Moles/Vol] 27.0 mmol/L 21.0-32.0 [facility] Urea nitrogen/Creatinine [Mass ratio] 18.6 mg/mg 10-20 [facility] Laboratory - Miscellaneous t estsOrdered By: Tess Skinner on 11-26-2022 Service comment (Unsp spec) [Interp] Comment . [facility] Comment on above: Levels of Specific I gE Class Description of Class ----- < 0.10 0 Negative 0.10 - 0.31 0/I Equivocal/Low 0.32 - 0.55 I Low 0.56 - 1.40 II Moderate 1.41 - 3.90 III High 3.91 - 19.00 IV Very High 19.01 - 100.00 V Very High >100.00 Very High No Panel InformationOrdered By: Haile Martin on 11-26-2022 Estimated GFR (MDRD) Amer 29 mL/min >60 [facility] Comment on above: GFR Calc Estimated GFR (MDRD) Non-Af Amer 24 mL/min >60 [facility] Comment on above: Non- GFR Calc No Panel InformationOrdered By: Tess Skinner on 11-26-2022 Scallop Allergen <0.10 kU/L Class 0 [facility] Sesame Seed Allergen IgE Antibody <0.10 kU/L Class 0 [facility] Comment on above: Performed at: [address] [id number] Director: Nancy Carlson MD, Phone: [phone] Shrimp Allergen 0.14 kU/L Class 0/I [facility] Serum black walnut IgE antib michael assay (units/volume)Ordered By: Tess Skinner on 11-26-2022 Black [place] IgE Qn (S) <0.10 kU/L Class 0 [facility] Serum clam IgE antibody assa y (units/volume)Ordered By: Tess Skinner on 11-26-2022 Clam IgE Qn (S) <0.10 kU/L Class 0 [facility] Serum codfish IgE antibody a ssay (units/volume)Ordered By: Tess Skinner on 11-26-2022 Codfish IgE Qn (S) <0.10 kU/L Class 0 [facility] Serum corn IgE antibody assa y (units/volume)Ordered By: Tess Skinner on 11-26-2022 [place] IgE Qn (S) <0.10 kU/L Class 0 [facility] Serum cow milk IgE antibody assay (units/volume)Ordered By: Tess Skinner on 11-26-2022 Cow milk IgE Qn (S) 0.72 kU/L Class II [facility] Serum egg white IgE antibody assay (units/volume)Ordered By: Tess Skinner on 11-26-2022 Egg white IgE Qn (S) <0.10 kU/L Class 0 [facility] Serum or plasma calcium viky urement (mass/volume)Ordered By: Haile Martin on 11-26-2022 Calcium [Mass/Vol] 9.4 mg/dL 8.5-10.1 [facility] Serum or plasma creatinine m easurement (mass/volume)Ordered By: Haile Martin on 11-26-2022 Creatinine [Mass/Vol] 2.69 mg/dL 0.70-1.30 [facility] Comment on above: The validity of the calculated GFR & GFRAA in patients over 70 years has not been determined. Clinical correlation is essential. Serum or plasma urea nitroge n measurement (mass/volume)Ordered By: Haile Martin on 11-26-2022 Urea nitrogen [Mass/Vol] 50 mg/dL 7-18 [facility] Serum peanut IgE antibody as say (units/volume)Ordered By: Tess Skinner on 11-26-2022 Peanut IgE Qn (S) <0.10 kU/L Class 0 [facility] Serum soybean IgE antibody a ssay (units/volume)Ordered By: Tess Skinner on 11-26-2022 Soybean IgE Qn (S) 0.11 kU/L Class 0/I [facility] Serum wheat IgE antibody ass ay (units/volume)Ordered By: Tess Skinner on 11-26-2022 Wheat IgE Qn (S) <0.10 kU/L Class 0 [facility] Thin prep Papanicolaou smear with manual screeningOrdered By: Haile Martin on 11-26-2022 Thin prep Papanicolaou smear with manual screening 8 5-15 [facility] Edd 11-23-2022 CNPN Telephone (INTMWS) -- DARCY LUCAS ([id number]) 1935 [facility] Date Time Provider Department 11/23/22 DELLA PINEDA INTDRAKE During your visit today, we recorded the following information about you: 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 APRN.CNS 11/23/2022 4:47 PM Signed Please check to see how he is doing re: cough and if he has a cardiology appointment upcoming. Malina Salas LPN 11/24/2022 9:35 AM Signed Spoke with patients . Patient called cardiology as soon as they left appointment with SUSHMA Bellamy. Rn Cvor put him on Spirolactone and potassium and wanted him to have labs done wed,wed, or and once they have lab work back she is to call for an appt with them. Marlen Albarado aMnolo Pss 11/24/2022 10:13 AM Signed Joseph is finishing up his azithromycin today and is asking if he needs to have a refill. Please call her at [phone] 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 APRN.CNS 11/24/2022 10:31 AM Signed No need for refill of azithromycin. How is his cough? Did cardiology order labwork or do we need to do that? Malina Salas LPN 11/24/2022 10:38 AM Signed said cough is no better. Cardiology is ordering labs because they have put him on spirolactone and potassium so are checking labs on medication. Once complete and results back cardiology will call him back with further instructions. 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 APRN.CNS 11/24/2022 12:05 PM Signed Noted. The diuretic the cardiology group ordered should help with the cough Malina Salas LPN 11/24/2022 1:08 PM Signed notified and verbalized understanding. Allergies As of Date: 11/23/2022 Noted Allergy Reaction INDOCIN (INDOMETHACIN SODIUM) 03/22/2012 8 - GI Upset NORVASC (AMLODIPINE BESYLATE) 12/16/2018 14 - Other: See Comments Comments: Dizziness VEOJROF-UBZ-NUB REDUCTASE INHIBIT*07/10/2014 14 - Other: See Comments Comments: myalgia LISINOPRIL 12/12/2020 3 - Cough Date Reviewed: 11/19/2022 Reviewed by: 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 - Fully Assessed Reason for Visit: Recheck [92] Prescriptions as of 11/24/2022 - torsemide (DEMADEX) 10 mg tablet Take 2 tablets by mouth every Wednesday,Wednesday,Wednesday. - amoxicillin-clavulanic acid (AUGMENTIN) 875-125 mg per tablet Take 1 tablet by mouth twice daily for 7 days. Take with food - azithromycin (ZITHROMAX Z-WENDY) 250 mg tablet Take 2 tablets day one, then, 1 tablet daily until gone. Take with food. - benzonatate (TESSALON PERLES) 100 mg capsule Take 1-2 capsules by mouth three times daily as needed for cough. - Lacto 21-Bifido 1-O-C2-B6-B12 (UP4 PROBIOTICS MEN'S) 50 billion cell -90 mg-30 mcg cap Take 1 tablet by mouth once daily. - magnesium oxide (MAG-OX) 400 mg (241.3 mg magnesium) tablet Take 1 tablet by mouth once daily. - atorvastatin (LIPITOR) 40 mg tablet Take 1 tablet by mouth once daily. - Coenzyme S69-Acizrof E 100-100 mg cap Take by mouth. - loperamide (IMODIUM) 2 mg cap(s) Take 2 mg by mouth four times daily as needed. - nitroglycerin sublingual (NITROQUICK) 0.4 mg SL tablet Dissolve 0.4 mg under the tongue every 5 minutes as needed for chest pain. - tamsulosin (FLOMAX) 0.4 mg Take 0.4 mg by mouth once daily. - potassium chloride SR (MICRO-K) 10 mEq CR capsule Take 1 capsule by mouth twice daily. - allopurinol (ZYLOPRIM) 100 mg tablet Take 2 tablets by mouth once daily. For gout. - sacubitril-valsartan (ENTRESTO) 49-51 mg tablet Take [...] 1 tablet by mouth once daily. - Qcish-4-HUH-EPA-Fish Oil 1,000 mg (120 mg-180 mg) cap Take 2 g by mouth once daily. - PSYLLIUM HUSK, BULK, MISC Take 1 Packet by mouth once daily. Takes as needed - pyridoxine, vitamin B6, (VITAMIN B-6) 100 mg tablet Take 1 tablet by mouth once daily. 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 Normal [facility] Absolute lymphocyte countOrd ered By: Tess Skinner on 11-20-2022 Lymphocytes Auto (Unsp spec) [#/Vol] 0.84 10*3/uL 0.83-4.51 [facility] Basophil percentageOrdered B y: Tess Skinner on 11-20-2022 Basophils/100 WBC (Bld) 1.0 % 0-1 [facility] Bilirubin [Mass/Vol] 1.10 mg/dL 0.20-1.00 [facility] Comment on above: For patients on eltr ombopag therapy, use of Dimension Sullivan TBIL is not recommended. Chloride [Moles/Vol] 109 mmol/L 98-107 [facility] Eosinophils/100 WBC (Bld) 6.6 % 0-5 [facility] Glucose [Mass/Vol] 96 mg/dL 74-106 [facility] Neutrophils (Bld) [#/Vol] 2.6 10*3/uL 2.0-7.7 [facility] Neutrophils/100 WBC (Bld) 64.0 % 47-70 [facility] Potassium [Moles/Vol] 2.6 mmol/L 3.5-5.1 [facility] Protein [Mass/Vol] 7.2 g/dL 6.4-8.2 [facility] Sodium [Moles/Vol] 145 mmol/L 136-145 [facility] WBC (Bld) [#/Vol] 4.1 10*3/uL 4.4-11.0 [facility] Blood erythrocytes count (nu mber/volume)Ordered By: Tess Skinner on 11-20-2022 RBC (Bld) [#/Vol] 2.84 10*6/uL 4.6-6.2 [facility] Blood hemoglobin measurement (mass/volume)Ordered By: Tess Skinner on 11-20-2022 Hemoglobin (Bld) [Mass/Vol] 9.7 g/dL 13.0-16.5 [facility] Blood lymphocytes/100 leukoc ytesOrdered By: Tess Skinner on 11-20-2022 Lymphocytes/100 WBC (Bld) 20.4 % 19-41 [facility] Blood monocytes/100 leukocyt esOrdered By: Tess Skinner on 11-20-2022 Monocytes/100 WBC (Bld) 7.8 % 0-10 [facility] Blood platelet mean volumeOr dered By: Tess Skinner on 11-20-2022 Platelet mean volume (Bld) [Entitic vol] 10.8 fL 6.2-12.0 [facility] Edd 11-20-2022 SBN Telephone (MATTEO) -- DARCY LUCAS ([id number]) 1935 M [facility] Date Time Provider Department 11/20/22 CAT ART During your visit today, we recorded the following information about you: Malina Brittany 11/20/2022 10:36 AM Signed Joseph needs a refill on Torsemide 10 mg but [facility] said that they told you the cage/vault supervisor put him on Torsemide 20 mg on Wednesday, Wednesday and Wednesday. [facility] want you to remember that when you refill the prescription. Please send to [facility]. Any questions call [facility] [phone] Allergies As of Date: 11/20/2022 Noted Allergy Reaction INDOCIN (INDOMETHACIN SODIUM) 03/22/2012 8 - GI Upset NORVASC (AMLODIPINE BESYLATE) 12/16/2018 14 - Other: See Comments Comments: Dizziness STORUUU-TJS-KNS REDUCTASE INHIBIT*07/10/2014 14 - Other: See Comments Comments: myalgia LISINOPRIL 12/12/2020 3 - Cough Date Reviewed: 11/19/2022 Reviewed by: 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 - Fully Assessed Reason for Visit: Patient Question [0213] Cmt: Refill Prescriptions as of 11/20/2022 - benzonatate (TESSALON PERLES) 100 mg capsule Take 1-2 capsules by mouth three times daily as needed for cough. - Lacto 21-Bifido 2-S-J5-B6-B12 (UP4 PROBIOTICS MEN'S) 50 billion cell -90 mg-30 mcg cap Take 1 tablet by mouth once daily. - magnesium oxide (MAG-OX) 400 mg (241.3 mg magnesium) tablet Take 1 tablet by mouth once daily. - atorvastatin (LIPITOR) 40 mg tablet Take 1 tablet by mouth once daily. - torsemide (DEMADEX) 10 mg tablet Take 1 tablet by mouth once daily. Take 10 mg daily, take one additional 10 mg daily as needed for leg swelling, shortness of breath or weight gain of 5 pounds or more/1week - Coenzyme C26-Ckmesvj E 100-100 mg cap Take by mouth. - loperamide (IMODIUM) 2 mg cap(s) Take 2 mg by mouth four times daily as needed. - nitroglycerin sublingual (NITROQUICK) 0.4 mg SL tablet Dissolve 0.4 mg under the tongue every 5 minutes as needed for chest pain. - tamsulosin (FLOMAX) 0.4 mg Take 0.4 mg by mouth once daily. - potassium chloride SR (MICRO-K) 10 mEq CR capsule Take 1 capsule by mouth twice daily. - allopurinol (ZYLOPRIM) 100 mg tablet Take 2 tablets by mouth once daily. For gout. - sacubitril-valsartan (ENTRESTO) 49-51 mg tablet Take [...] 1 tablet by mouth once daily. - Hxbhu-0-EUE-EPA-Fish Oil 1,000 mg (120 mg-180 mg) cap Take 2 g by mouth once daily. - PSYLLIUM HUSK, BULK, MISC Take 1 Packet by mouth once daily. Takes as needed - pyridoxine, vitamin B6, (VITAMIN B-6) 100 mg tablet Take 1 tablet by mouth once daily. 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] [...] left shoulder [M7*06/12/2014 Coronary artery disease involving [place]-apache verde*07/29/2015 S/P CABG (coronary artery bypass graft) [Z95.1] 2015 Hypokalemia [E87.6] 02/05/2016 Osteoarthritis of spine with radiculopathy, lum*02/21/2016 History of permanent cardiac pacemaker placemen*09/03/2016 Paroxysmal atrial fibrillation (HCC) [I48.0] 09/03/2016 Chronic anticoagulation [Z79.01] 09/03/2016 12/16/2018 Carotid stenosis, asymptomatic [I65.29] 02/11/2017 Hyperglycemia [R73.9] 02/11/2017 Anemia of chronic disease [D63.8] 02/11/2017 Atrial fibrillation (HCC) [I48.91] 06/03/2017 02/17/2018 CKD (chronic kidney disease), stage III (HCC) [* Lumbar spinal stenosis [M48.061] 11/24/2018 Acute on chronic intracranial subdural hematoma*11/25/2018 Non-rheumatic mitral regurgitation [I34.0] 12/18/2019 Acute idiopathic (more content not included)... Normal [facility] Telephone (INTMWS) -- DARCY LUCAS ([id number]) 1935 M [facility] Date Time Provider Department 11/20/22 DELLA PINEDA INTPerWS During your visit today, we recorded the following information about you: 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 11/20/2022 3:50 PM Signed Please let him know that chest x-ray showed an infiltrate on the right as well as a pleural effusion on the right. Will send prescription for antibiotics for the infiltrate. He will need to follow-up with cardiology at his earliest convenience for the pleural effusion. Please fax CXR result to [facility] Genet Higgins LPN 11/20/2022 5:05 PM Signed Patient and his aware of the xray results and follow up instructions. Genet Higgins LPN Allergies As of Date: 11/20/2022 Noted Allergy Reaction INDOCIN (INDOMETHACIN SODIUM) 03/22/2012 8 - GI Upset NORVASC (AMLODIPINE BESYLATE) 12/16/2018 14 - Other: See Comments Comments: Dizziness PYMPWEN-RVS-FEA REDUCTASE INHIBIT*07/10/2014 14 - Other: See Comments Comments: myalgia LISINOPRIL 12/12/2020 3 - Cough Date Reviewed: 11/19/2022 Reviewed by: 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 - Fully Assessed Reason for Visit: Results [95] Primary Visit Diagnosis:Infiltrate of right lung present on chest x-ray [R91.8] Other Visit Diagnoses:Acute non-recurrent maxillary sinusitis [J01.00] URI (upper respiratory infection) [J06.9] Pleural effusion on right [J90] Order(s):amoxicillin-clavu lanic acid (AUGMENTIN) 875-125 mg per tabletTake 1 tablet by mouth twice daily for 7 days. Take with foodDisp: 14 tabletRfl: 0 azithromycin (ZITHROMAX Z-WENDY) 250 mg tabletTake 2 tablets day one, then, 1 tablet daily until gone. Take with food.Disp: 6 tabletRfl: 0 Prescriptions as of 11/20/2022 - torsemide (DEMADEX) 10 mg tablet Take 2 tablets by mouth every Wednesday,Wednesday,Wednesday. - amoxicillin-clavulanic acid (AUGMENTIN) 875-125 mg per tablet Take 1 tablet by mouth twice daily for 7 days. Take with food - azithromycin (ZITHROMAX Z-WENDY) 250 mg tablet Take 2 tablets day one, then, 1 tablet daily until gone. Take with food. - benzonatate (TESSALON PERLES) 100 mg capsule Take 1-2 capsules by mouth three times daily as needed for cough. - Lacto 21-Bifido 6-A-M7-B6-B12 (UP4 PROBIOTICS MEN'S) 50 billion cell -90 mg-30 mcg cap Take 1 tablet by mouth once daily. - magnesium oxide (MAG-OX) 400 mg (241.3 mg magnesium) tablet Take 1 tablet by mouth once daily. - atorvastatin (LIPITOR) 40 mg tablet Take 1 tablet by mouth once daily. - Coenzyme I21-Wpmwipm E 100-100 mg cap Take by mouth. - loperamide (IMODIUM) 2 mg cap(s) Take 2 mg by mouth four times daily as needed. - nitroglycerin sublingual (NITROQUICK) 0.4 mg SL tablet Dissolve 0.4 mg under the tongue every 5 minutes as needed for chest pain. - tamsulosin (FLOMAX) 0.4 mg Take 0.4 mg by mouth once daily. - potassium chloride SR (MICRO-K) 10 mEq CR capsule Take 1 capsule by mouth twice daily. - allopurinol (ZYLOPRIM) 100 mg tablet Take 2 tablets by mouth once daily. For gout. - sacubitril-valsartan (ENTRESTO) 49-51 mg tablet Take [...] 1 tablet by mouth once daily. - Oaazz-0-YYK-EPA-Fish Oil 1,000 mg (120 mg-180 mg) cap Take 2 g by mouth once daily. - PSYLLIUM HUSK, BULK, MISC Take 1 Packet by mouth once daily. Takes as needed - pyridoxine, vitamin B6, (VITAMIN B-6) 100 mg tablet Take 1 tablet by mouth once daily. 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 Normal [facility] Determination of erythrocyte mean corpuscular volume (MCV)Ordered By: Tess Skinner on 11-20-2022 MCV (RBC) [Entitic vol] 104.9 fL 80-94 [facility] Erythrocyte sedimentation ra teOrdered By: Tess Skinner on 11-20-2022 ESR (Bld) [Velocity] 5 mm/h 0-20 [facility] Hematocrit Auto (Bld) [Volum e fraction]Ordered By: Tess Skinner on 11-20-2022 Hematocrit (Bld) [Volume fraction] 29.8 % 40-54 [facility] Iron measurement (mass/mass) Ordered By: Tess Skinner on 11-20-2022 Iron (Unsp spec) [Mass/Mass] 60 ug/dL 65-175 [facility] Laboratory - Chemistry and C hemistry - challengeOrdered By: Tess Skinner on 11-20-2022 ALP [Catalytic activity/Vol] 92 U/L 45-117 [facility] ALT [Catalytic activity/Vol] 27 U/L 16-61 [facility] CO2 [Moles/Vol] 26.0 mmol/L 21.0-32.0 [facility] Globulin (S) [Mass/Vol] 3.5 g/dL 2.2-4.2 [facility] Urea nitrogen/Creatinine [Mass ratio] 20.3 mg/mg 10-20 [facility] Laboratory - Chemistry and C hemistry - challengeOrdered By: Haile Martin on 11-20-2022 Natriuretic peptide B (Bld) [Mass/Vol] pg/mL 0-100 [facility] Laboratory - Hematology and Cell countsOrdered By: Tess Skinner on 11-20-2022 Erythrocyte distribution width (RBC) [Entitic vol] 60.8 fL 35.1-43.9 [facility] Erythrocyte distribution width (RBC) [Ratio] 15.9 % 11.6-14.6 [facility] Immature granulocytes/100 WBC (Bld) 0.200 % 0.0-0.9 [facility] Comment on above: IG% - Immature Granu locytes (promyelocytes, myelocytes and metamyelocytes) > 1% indicates that a LEFT SHIFT is Present. MCH (RBC) [Entitic mass] 34.2 pg 27.0-32.0 [facility] Nucleated RBC/100 WBC (Bld) [Ratio] 0 % 0-5 [facility] MCHC Auto (RBC) [Mass/Vol]Or dered By: Tess Skinner on 11-20-2022 MCHC (RBC) [Mass/Vol] 32.6 g/dL 32-36 [facility] No Panel InformationOrdered By: Tess Skinner on 11-20-2022 Stool Calprotectin 136 ug/g 0-120 [facility] Comment on above: Concentration Interp retation Follow-Up<16 - 50 ug/g Normal None>50 -120 ug/g Borderline Re-evaluate in 4-6 weeks >120 ug/g Abnormal Repeat as clinically indicatedPerformed at: BN - [facility] [address] [id number] Director: Nancy Carlson MD, Phone: [phone] Endomysial IgA Antibody Negative Negative [facility] Estimated GFR (MDRD) Amer 34 mL/min >60 [facility] Comment on above: GFR Calc Estimated GFR (MDRD) Non-Af Amer 28 mL/min >60 [facility] Comment on above: Non- GFR Calc Total Iron Binding Capacity 330 ug/dL 250-450 [facility] Platelets bldOrdered By: Clarissa Skinner on 11-20-2022 Platelets (Bld) [#/Vol] 153 10*3/uL 150-450 [facility] Serum IgA measurement (units /volume)Ordered By: Tess Skinner on 11-20-2022 IgA Qn (S) 229 mg/dL 61-437 [facility] Comment on above: Performed at: - [facility] [address] [id number] Director: Andres Abel PhD, Phone: [phone] Serum or plasma C reactive p rotein measurement (mass/volume)Ordered By: Tess Skinner on 11-20-2022 CRP [Mass/Vol] 7.36 mg/L 0.0-3.0 [facility] Comment on above: C-Reactive Protein ( CRP) provides useful information for thediagnosis, therapy and monitoring of inflammatory processesand associated diseases. For the evaluation of Relative Riskfor Cardiovascular Disease, a High Sensitivity CRP (HSCRP)should be ordered. Serum or plasma albumin viky urement (mass/volume)Ordered By: Tess Skinner on 11-20-2022 Albumin [Mass/Vol] 3.7 g/dL 3.2-5.0 [facility] Serum or plasma albumin/glob ulin mass ratioOrdered By: Tess Skinner on 11-20-2022 Albumin/Globulin [Mass ratio] 1.1 {ratio} 0.9-2.4 [facility] Serum or plasma calcium viky urement (mass/volume)Ordered By: Tess Skinner on 11-20-2022 Calcium [Mass/Vol] 8.9 mg/dL 8.5-10.1 [facility] Serum or plasma creatinine m easurement (mass/volume)Ordered By: Tess Skinner on 11-20-2022 Creatinine [Mass/Vol] 2.36 mg/dL 0.70-1.30 [facility] Comment on above: The validity of the calculated GFR & GFRAA in patients over 70 years has not been determined. Clinical correlation is essential. Serum or plasma ferritin kate surement (mass/volume)Ordered By: Tess Skinner on 11-20-2022 Ferritin [Mass/Vol] 80 ng/mL [id number] [facility] Serum or plasma iron saturat ion measurement (mass fraction)Ordered By: Tess Skinner on 11-20-2022 Iron saturation [Mass fraction] 18.2 % 15.0-55.0 [facility] Serum or plasma urea nitroge n measurement (mass/volume)Ordered By: Tess Skinner on 11-20-2022 Urea nitrogen [Mass/Vol] 48 mg/dL 7-18 [facility] Serum tissue transglutaminas e IgA antibody assay (units/volume)Ordered By: Tess Skinner on 11-20-2022 tTG IgA Qn (S) <2 U/mL 0-3 [facility] Comment on above: Negative 0 - 3 Weak Positive 4 - 10 Positive >10 Tissue Transglutaminase (tTG) has been identified as the endomysial antigen. Studies have demonstr- ated that endomysial IgA antibodies have over 99% specificity for gluten sensitive enteropathy. Stool lactoferrin detection by immunoassayOrdered By: Tess Skinner on 11-20-2022 Lactoferrin IA Ql (Stl) [facility] Thin prep Papanicolaou smear with manual screeningOrdered By: Tess Skinner on 11-20-2022 Thin prep Papanicolaou smear with manual screening 25 U/L 15-37 [facility] Thin prep Papanicolaou smear with manual screening 10 5-15 [facility] XR Chest PA and Lateralon IMPRESSION: Right side pleural effusion with associated lower lung atelectasis/infiltrates. Cardiomegaly/enlargement of the cardiac silhouette. Roller Helper: MARCIA Transcribe Date/Time: Nov 20 2022 2:52P Dictated by : KUSHAL MONTEMAYOR MD This examination was interpreted and the report reviewed and electronically signed by: KUSHAL MONTEMAYOR MD on Nov 20 2022 2:57PM [facility] DIVISION OF RADIOLOGY * * *Final Report* * * DATE OF EXAM: Nov 19 2022 2:28PM WOX 5291 - XR CHEST 2V FRONTAL/LAT / PROCEDURE REASON: Subacute cough * * * * Physician Interpretation * * * * EXAMINATION: CHEST RADIOGRAPH (2 VIEW FRONTAL & LATERAL) CLINICAL HISTORY: Subacute cough MQ: XC2_6 EXAM DATE/TIME: 11/19/2022 2:28 PM COMPARISON: Chest x-ray on 12/20/2020 RESULT: Lines, tubes, and devices: No change in position of left chest dual-chamber pacemaker. Lungs and pleura: Right-sided moderate pleural effusion is visualized, with associated lower lung atelectasis/infiltrates. No definite consolidations seen in the left lung. There appears be left-sided trace pleural effusion. No pneumothorax identified. Cardiomediastinal silhouette: Cardiomegaly/enlargement of the cardiac silhouette is noted. Slight prominence of the left hilum, similar to prior study. There appears be a small hiatal hernia. Bones and soft tissues: Status post median sternotomy and probably CABG. The spine shows exaggerated kyphosis and degenerative changes. DIVISION OF RADIOLOGY Provider, Katharine Hernandez - 11/20/2022 * * *Final Report* * * DATE OF EXAM: Nov 19 2022 2:28PM WOX 5291 - XR CHEST 2V FRONTAL/LAT / PROCEDURE REASON: Subacute cough * * * * Physician Interpretation * * * * EXAMINATION: CHEST RADIOGRAPH (2 VIEW FRONTAL & LATERAL) CLINICAL HISTORY: Subacute cough MQ: XC2_6 EXAM DATE/TIME: 11/19/2022 2:28 PM COMPARISON: Chest x-ray on 12/20/2020 RESULT: Lines, tubes, and devices: No change in position of left chest dual-chamber pacemaker. Lungs and pleura: Right-sided moderate pleural effusion is visualized, with associated lower lung atelectasis/infiltrates. No definite consolidations seen in the left lung. There appears be left-sided trace pleural effusion. No pneumothorax identified. Cardiomediastinal silhouette: Cardiomegaly/enlargement of the cardiac silhouette is noted. Slight prominence of the left hilum, similar to prior study. There appears be a small hiatal hernia. Bones and soft tissues: Status post median sternotomy and probably CABG. The spine shows exaggerated kyphosis and degenerative changes. IMPRESSION IMPRESSION: Right side pleural effusion with associated lower lung atelectasis/infiltrates. Cardiomegaly/enlargement of the cardiac silhouette. Roller Helper: PSCB Transcribe Date/Time: Nov 20 2022 2:52P Dictated by : KUSHAL MONTEMAYOR MD This examination was interpreted and the report reviewed and electronically signed by: KUSHAL MONTEMAYOR MD on Nov 20 2022 2:57PM EST [facility] XR Chest PA and LateralOrder ed By: [facility] Provider on 11-20-2022 [facility] CNOVon 11-19-2022 CNOV Office Visit (INTMWS ) -- DARCY LUCAS ([id number]) 1935 M [facility] Date Time Provider Department 11/19/22 1:40 PM DELLA PINEDA INTMWS During your visit today, we recorded the following information about you: Pulse Respiration Blood pressure Weight 66/minute 14/minute 120/72 68.9 kg 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 DEVELOPER 11/19/2022 2:18 PM Signed SUBJECTIVE: SHINGRIX VACCINE(1 of 2) Never done DTAP,TDAP,TD(1 - Tdap) due on 08/20/2017 COVID-19 VACCINE(3 - Booster for Pfizer series) due on 04/29/2021 ADVANCE DIRECTIVE DISCUSSION Never done DEPRESSION ASSESSMENT Never done LDL CHOLESTEROL due on 10/21/2022 HPI Darcy Lucas is a 87 year old male. 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 Recent echocardiogram at [facility] showed ejection fraction of 20%, severe global hypokinesis, 1-2+ eccentric mitral regurgitation, RVSP 44 mmHg. 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 He was treated with Lasix 40 mg IV twice daily while hospitalized. 1500 mL fluid restriction. Daily weights. Kidney and electrolyte monitoring. Followed by [facility], . He was seen [...] and magnesium advised. Advised to follow-up with pmp certified project manager and cage/vault supervisor. Advised to follow-up with urologist Dr. [...] for cough. Cardiovascular: Positive for leg swelling. Ob (more content not included)... Normal [facility] XR CHEST 2V FRONTAL/LATon XR CHEST 2V FRONTAL/LAT * * *Final Repor t* * * DATE OF EXAM: Nov 19 2022 2:28PM WOX 5291 - XR CHEST 2V FRONTAL/LAT / PROCEDURE REASON: Subacute cough * * * * Physician Interpretation * * * * EXAMINATION: CHEST RADIOGRAPH (2 VIEW FRONTAL and LATERAL) CLINICAL HISTORY: Subacute cough MQ: XC2_6 EXAM DATE/TIME: 11/19/2022 2:28 PM COMPARISON: Chest x-ray on 12/20/2020 RESULT: Lines, tubes, and devices: No change in position of left chest dual-chamber pacemaker. Lungs and pleura: Right-sided moderate pleural effusion is visualized, with associated lower lung atelectasis/infiltrates. No definite consolidations seen in the left lung. There appears be left-sided trace pleural effusion. No pneumothorax identified. Cardiomediastinal silhouette: Cardiomegaly/enlargement of the cardiac silhouette is noted. Slight prominence of the left hilum, similar to prior study. There appears be a small hiatal hernia. Bones and soft tissues: Status post median sternotomy and probably CABG. The spine shows exaggerated kyphosis and degenerative changes. IMPRESSION: Right side pleural effusion with associated lower lung atelectasis/infiltrates. Cardiomegaly/enlargement of the cardiac silhouette. Roller Helper: PSCB Transcribe Date/Time: Nov 20 2022 2:52P Dictated by : KUSHAL MONTEMAYOR MD This examination was interpreted and the report reviewed and electronically signed by: KUSHAL MONTEMAYOR MD on Nov 20 2022 2:57PM EST [id number] Normal [facility] XR Chest PA and Lateralon Radiology Study observation (narrative) [facility] CNOVon 11-03-2022 CNOV Office Visit (KIDMMM ) -- DARCY LUCAS ([id number]) 1935 M [facility] Date Time Provider Department 11/03/22 3:20 PM CAT ART During your visit today, we recorded the following information about you: Pulse Blood pressure Weight Height 63/minute 121/67 68.9 kg 1.778 m Cat Art MD 11/03/2022 6:17 PM Signed [facility] K[facility]NEY [facility]IC[facility] SERVICE DATE: 11/03/2022 SERVICE TIME: 6:12 PM CHIEF COMPLAINT: CKD follow up HPI: Mr. 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 Normal [facility] Absolute lymphocyte countOrd ered By: Derian Perla on 09-05-2022 Lymphocytes Auto (Unsp spec) [#/Vol] 0.80 10*3/uL 0.83-4.51 [facility] Basophil percentageOrdered B y: Derian Perla on 09-05-2022 Basophils/100 WBC (Bld) 0.7 % 0-1 [facility] Chloride [Moles/Vol] 114 mmol/L 98-107 [facility] Eosinophils/100 WBC (Bld) 5.0 % 0-5 [facility] Glucose [Mass/Vol] 108 mg/dL 74-106 [facility] Comment on above: Fasting Glucose resu lt from 100 to 125 mg/dL suggests IMPAIRED HOMEOSTASIS per A.D.A. criteria. Neutrophils (Bld) [#/Vol] 2.7 10*3/uL 2.0-7.7 [facility] Neutrophils/100 WBC (Bld) 64.8 % 47-70 [facility] Potassium [Moles/Vol] 3.7 mmol/L 3.5-5.1 [facility] Sodium [Moles/Vol] 143 mmol/L 136-145 [facility] WBC (Bld) [#/Vol] 4.2 10*3/uL 4.4-11.0 [facility] Blood erythrocytes count (nu mber/volume)Ordered By: Derian Perla on 09-05-2022 RBC (Bld) [#/Vol] 2.87 10*6/uL 4.6-6.2 [facility] Blood hemoglobin measurement (mass/volume)Ordered By: Derian Perla on 09-05-2022 Hemoglobin (Bld) [Mass/Vol] 9.6 g/dL 13.0-16.5 [facility] Blood lymphocytes/100 leukoc ytesOrdered By: Derian Perla on 09-05-2022 Lymphocytes/100 WBC (Bld) 18.9 % 19-41 [facility] Blood monocytes/100 leukocyt esOrdered By: Derian Perla on 09-05-2022 Monocytes/100 WBC (Bld) 10.6 % 0-10 [facility] Blood platelet mean volumeOr dered By: Derian Perla on 09-05-2022 Platelet mean volume (Bld) [Entitic vol] 11.2 fL 6.2-12.0 [facility] Determination of erythrocyte mean corpuscular volume (MCV)Ordered By: Derian Perla on 09-05-2022 MCV (RBC) [Entitic vol] 103.1 fL 80-94 [facility] Hematocrit Auto (Bld) [Volum e fraction]Ordered By: Derian Perla on 09-05-2022 Hematocrit (Bld) [Volume fraction] 29.6 % 40-54 [facility] Laboratory - Chemistry and C hemistry - challengeOrdered By: Derian Perla on 09-05-2022 CO2 [Moles/Vol] 20.0 mmol/L 21.0-32.0 [facility] Magnesium [Mass/Vol] 1.9 mg/dL 1.6-2.6 [facility] Urea nitrogen/Creatinine [Mass ratio] 21.7 mg/mg 10-20 [facility] Laboratory - Hematology and Cell countsOrdered By: Derian Perla on 09-05-2022 Erythrocyte distribution width (RBC) [Entitic vol] 58.2 fL 35.1-43.9 [facility] Erythrocyte distribution width (RBC) [Ratio] 15.6 % 11.6-14.6 [facility] Immature granulocytes/100 WBC (Bld) 0.000 % 0.0-0.9 [facility] Comment on above: IG% - Immature Granu locytes (promyelocytes, myelocytes and metamyelocytes) > 1% indicates that a LEFT SHIFT is Present. MCH (RBC) [Entitic mass] 33.4 pg 27.0-32.0 [facility] Nucleated RBC/100 WBC (Bld) [Ratio] 0 % 0-5 [facility] MCHC Auto (RBC) [Mass/Vol]Or dered By: Derian Perla on 09-05-2022 MCHC (RBC) [Mass/Vol] 32.4 g/dL 32-36 [facility] No Panel InformationOrdered By: Derian Perla on 09-05-2022 Troponin I High Sensitivity 34 pg/mL 3.0-78.0 [facility] Comment on above: Please Note: New [place] t Units and Gender Specific Reference Ranges. For more information see Policy Stat Procedure Sullivan High Sensitivity Troponin (TNIH) and attachments. Estimated Creatinine Clearance Calc 28.98 ml/min [facility] Estimated GFR (MDRD) Amer 45 mL/min >60 [facility] Comment on above: GFR Calc Estimated GFR (MDRD) Non-Af Amer 37 mL/min >60 [facility] Comment on above: Non- GFR Calc Platelets bldOrdered By: Yonathan Perla on 09-05-2022 Platelets (Bld) [#/Vol] 139 10*3/uL 150-450 [facility] Serum or plasma calcium viky urement (mass/volume)Ordered By: Derian Perla on 09-05-2022 Calcium [Mass/Vol] 8.9 mg/dL 8.5-10.1 [facility] Serum or plasma creatinine m easurement (mass/volume)Ordered By: Derian Perla on 09-05-2022 Creatinine [Mass/Vol] 1.84 mg/dL 0.70-1.30 [facility] Comment on above: The validity of the calculated GFR & GFRAA in patients over 70 years has not been determined. Clinical correlation is essential. Serum or plasma urea nitroge n measurement (mass/volume)Ordered By: Derian Perla on 09-05-2022 Urea nitrogen [Mass/Vol] 40 mg/dL 05-11 [facility] Thin prep Papanicolaou smear with manual screeningOrdered By: Derian Perla on 09-05-2022 Thin prep Papanicolaou smear with manual screening 9 - [facility] UA DIP, URINE (POC)on 2021 BILIRUBIN UA (POCT) Negative Negative [facility] CLARITY UA (POCT) Clear [facility] COLOR UA (POCT) Light yellow [facility] GLUCOSE UA (POCT) Negative Negative mg/dL [facility] HEMOGLOBIN/BLOOD UA (POCT) Negative Negative [facility] KETONE UA (POCT) Negative Negative mg/dL [facility] LEUKOCYTES UA (POCT) Negative Negative [facility] NITRITE UA (POCT) Negative Negative [facility] PH UA (POCT) 5.5 4.5 - 8.0 [facility] Protein Ql (U) Negative Negative mg/dL [facility] SPECIFIC GRAVITY UA (POCT) 1.010 1.005 - 1.030 [facility] UROBILINOGEN UA (POCT) 0.2 E.U./dL Rosalee l E.U./dL [facility] MAGNESIUM BLDon 07-22-2022 Magnesium [Mass/Vol] 1.6 mg/dL Low 1.7 - 2 .3 mg/dL [facility] Basophil percentageon 2021 Basophil percentage 3.5 mg/dL 2.5-4.9 [facility] Work Phone: Chloride [Moles/Vol] 106 mmol/L 98-107 [facility] Work Phone: Glucose [Mass/Vol] 100 mg/dL 74-106 [facility] Work Phone: Comment on above: Fasting Glucose resu lt from 100 to 125 mg/dL suggests IMPAIRED HOMEOSTASIS per A.D.A. criteria. Potassium [Moles/Vol] 3.5 mmol/L 3.5-5.1 [facility] Work Phone: Sodium [Moles/Vol] 141 mmol/L 136-145 [facility] Work Phone: Laboratory - Chemistry and C hemistry - challengeon 07-15-2022 CO2 [Moles/Vol] 25.0 mmol/L 21.0-32.0 [facility] Work Phone: Magnesium [Mass/Vol] 1.2 mg/dL 1.6-2.6 [facility] Work Phone: Urea nitrogen/Creatinine [Mass ratio] 17.1 mg/mg 10-20 [facility] Work Phone: No Panel Informationon 07-15 Estimated Creatinine Clearance Calc 24.55 ml/min [facility] Work Phone: Estimated GFR (MDRD) Amer 39 mL/min >60 [facility] Work Phone: Comment on above: GFR Calc Estimated GFR (MDRD) Non-Af Amer 32 mL/min >60 [facility] Work Phone: Comment on above: Non- GFR Calc Serum or plasma albumin viky urement (mass/volume)on 07-15-2022 Albumin [Mass/Vol] 3.6 g/dL 3.2-5.0 [facility] Work Phone: Serum or plasma calcium viky urement (mass/volume)on 07-15-2022 Calcium [Mass/Vol] 9.1 mg/dL 8.5-10.1 [facility] Work Phone: Serum or plasma creatinine m easurement (mass/volume)on 07-15-2022 Creatinine [Mass/Vol] 2.11 mg/dL 0.70-1.30 [facility] Work Phone: Comment on above: The validity of the calculated GFR & GFRAA in patients over 70 years has not been determined. Clinical correlation is essential. Serum or plasma urea nitroge n measurement (mass/volume)on 07-15-2022 Urea nitrogen [Mass/Vol] 36 mg/dL 7-18 [facility] Work Phone: Absolute lymphocyte counton 07-14-2022 Lymphocytes Auto (Unsp spec) [#/Vol] 0.75 10*3/uL 0.83-4.51 [facility] Work Phone: [phone] Basophil percentageon 2021 Basophils/100 WBC (Bld) 1.0 % 0-1 [facility] Work Phone: [phone] Cholesterol [Mass/Vol] 76 mg/dL <200 [facility] Work Phone: Comment on above: <200 mg/dL Desirable 200-240 mg/dL Borderline >240 mg/dL High Risk Eosinophils/100 WBC (Bld) 5.3 % 0-5 [facility] Work Phone: [phone] Neutrophils (Bld) [#/Vol] 2.7 10*3/uL 2.0-7.7 [facility] Work Phone: [phone] Neutrophils/100 WBC (Bld) 66.0 % 47-70 [facility] Work Phone: Triglyceride [Mass/Vol] 79 mg/dL <199 [facility] Work Phone: Comment on above: The drugs N-Acetylcy steine and Metamizole may falsely depress this assay.Serum Triglycerides Reference Interval Normal <150 mg/dL Borderline high 150 - 199 mg/dL High 200 - 499 mg/dL Very High > or = 500 mg/dL WBC (Bld) [#/Vol] 4.1 10*3/uL 4.4-11.0 [facility] Work Phone: Blood erythrocytes count (nu mber/volume)on 07-14-2022 RBC (Bld) [#/Vol] 2.60 10*6/uL 4.6-6.2 [facility] Work Phone: Blood hemoglobin measurement (mass/volume)on 07-14-2022 Hemoglobin (Bld) [Mass/Vol] 9.1 g/dL 13.0-16.5 [facility] Work Phone: Blood lymphocytes/100 leukoc yteson 07-14-2022 Lymphocytes/100 WBC (Bld) 18.1 % 19-41 [facility] Work Phone: Blood monocytes/100 leukocyt eson 07-14-2022 Monocytes/100 WBC (Bld) 9.4 % 0-10 [facility] Work Phone: Blood platelet mean volumeon 07-14-2022 Platelet mean volume (Bld) [Entitic vol] 11.3 fL 6.2-12.0 [facility] Work Phone: [phone] Determination of erythrocyte mean corpuscular volume (MCV)on 07-14-2022 MCV (RBC) [Entitic vol] 105.8 fL 80-94 [facility] Work Phone: [phone] Hematocrit Auto (Bld) [Volum e fraction]on 07-14-2022 Hematocrit (Bld) [Volume fraction] 27.5 % 40-54 [facility] Work Phone: [phone] Laboratory - Hematology and Cell countson 07-14-2022 Erythrocyte distribution width (RBC) [Entitic vol] 59.1 fL 35.1-43.9 [facility] Work Phone: [phone] Erythrocyte distribution width (RBC) [Ratio] 15.5 % 11.6-14.6 [facility] Work Phone: [phone] Immature granulocytes/100 WBC (Bld) 0.200 % 0.0-0.9 [facility] Work Phone: [phone] Comment on above: IG% - Immature Granu locytes (promyelocytes, myelocytes and metamyelocytes) > 1% indicates that a LEFT SHIFT is Present. MCH (RBC) [Entitic mass] 35.0 pg 27.0-32.0 [facility] Work Phone: [phone] Nucleated RBC/100 WBC (Bld) [Ratio] 0 % 0-5 [facility] Work Phone: MCHC Auto (RBC) [Mass/Vol]on 07-14-2022 MCHC (RBC) [Mass/Vol] 33.1 g/dL 32-36 [facility] Work Phone: No Panel Informationon 07-14 Thyroid Stimulating Hormone (TSH) 3.05 uIU/mL 0.358-3.74 [facility] Work Phone: Platelets bldon 07-14-2022 Platelets (Bld) [#/Vol] 136 10*3/uL 150-450 [facility] Work Phone: Serum or plasma cholesterol in HDL measurement (mass/volume)on 07-14-2022 Cholesterol in HDL [Mass/Vol] 26 mg/dL >40 [facility] Work Phone: Comment on above: The drugs N-Acetylcy steine and Metamizole may falsely depress this assay. Reference Range HDL <40 mg/dL Low HDL Cholesterol HDL >or= 60 mg/dL High HDL Cholesterol Serum or plasma cholesterol in VLDL measurement (mass/volume)on 07-14-2022 Cholesterol in VLDL [Mass/Vol] 16 mg/dL 5-40 [facility] Work Phone: Serum or plasma low density lipoprotein (LDL) cholesterol measurement (mass/volume)on 07-14-2022 Cholesterol in LDL [Mass/Vol] 34 mg/dL 0-130 [facility] Work Phone: Thin prep Papanicolaou smear with manual screeningon 07-14-2022 Thin prep Papanicolaou smear with manual screening 8 5-15 [facility] Work Phone: Absolute lymphocyte counton 07-13-2022 Lymphocytes Auto (Unsp spec) [#/Vol] 0.87 10*3/uL 0.83-4.51 [facility] Work Phone: Basophil percentageon 2021 Basophil percentage 0 SEEN /hpf 0-5 [facility] Work Phone: Basophils/100 WBC (Bld) 0.7 % 0-1 [facility] Work Phone: Chloride [Moles/Vol] 111 mmol/L 98-107 [facility] Work Phone: Eosinophils/100 WBC (Bld) 5.5 % 0-5 [facility] Work Phone: Glucose [Mass/Vol] 115 mg/dL 74-106 [facility] Work Phone: Comment on above: Fasting Glucose resu lt from 100 to 125 mg/dL suggests IMPAIRED HOMEOSTASIS per A.D.A. criteria. Neutrophils (Bld) [#/Vol] 3.0 10*3/uL 2.0-7.7 [facility] Work Phone: Neutrophils/100 WBC (Bld) 64.6 % 47-70 [facility] Work Phone: Potassium [Moles/Vol] 3.7 mmol/L 3.5-5.1 [facility] Work Phone: Sodium [Moles/Vol] 143 mmol/L 136-145 [facility] Work Phone: WBC (Bld) [#/Vol] 4.6 10*3/uL 4.4-11.0 [facility] Work Phone: [phone] Bilirubin Test strip Ql (U)o n 07-13-2022 Bilirubin Ql (U) Negative Negative [facility] Work Phone: [phone] Blood erythrocytes count (nu mber/volume)on 07-13-2022 RBC (Bld) [#/Vol] 2.89 10*6/uL 4.6-6.2 [facility] Work Phone: Blood hemoglobin measurement (mass/volume)on 07-13-2022 Hemoglobin (Bld) [Mass/Vol] 9.9 g/dL 13.0-16.5 [facility] Work Phone: Blood lymphocytes/100 leukoc yteson 07-13-2022 Lymphocytes/100 WBC (Bld) 19.1 % 19-41 [facility] Work Phone: Blood monocytes/100 leukocyt eson 07-13-2022 Monocytes/100 WBC (Bld) 9.9 % 0-10 [facility] Work Phone: [phone] Blood platelet mean volumeon 07-13-2022 Platelet mean volume (Bld) [Entitic vol] 11.1 fL 6.2-12.0 [facility] Work Phone: [phone] Determination of erythrocyte mean corpuscular volume (MCV)on 07-13-2022 MCV (RBC) [Entitic vol] 104.8 fL 80-94 [facility] Work Phone: Hematocrit Auto (Bld) [Volum e fraction]on 07-13-2022 Hematocrit (Bld) [Volume fraction] 30.3 % 40-54 [facility] Work Phone: [phone] Ketones Test strip Ql (U)on 07-13-2022 Ketones Ql (U) Negative Negative [facility] Work Phone: Laboratory - Chemistry and C hemistry - challengeon 07-13-2022 CO2 [Moles/Vol] 24.0 mmol/L 21.0-32.0 [facility] Work Phone: [phone] Natriuretic peptide B (Bld) [Mass/Vol] pg/mL 0-100 [facility] Work Phone: [phone] Urea nitrogen/Creatinine [Mass ratio] 14.2 mg/mg 10-20 [facility] Work Phone: [phone] Laboratory - Hematology and Cell countson 07-13-2022 Erythrocyte distribution width (RBC) [Entitic vol] 58.3 fL 35.1-43.9 [facility] Work Phone: [phone] Erythrocyte distribution width (RBC) [Ratio] 15.5 % 11.6-14.6 [facility] Work Phone: [phone] Immature granulocytes/100 WBC (Bld) 0.200 % 0.0-0.9 [facility] Work Phone: [phone] Comment on above: IG% - Immature Granu locytes (promyelocytes, myelocytes and metamyelocytes) > 1% indicates that a LEFT SHIFT is Present. MCH (RBC) [Entitic mass] 34.3 pg 27.0-32.0 [facility] Work Phone: Nucleated RBC/100 WBC (Bld) [Ratio] 0 % 0-5 [facility] Work Phone: MCHC Auto (RBC) [Mass/Vol]on 07-13-2022 MCHC (RBC) [Mass/Vol] 32.7 g/dL 32-36 [facility] Work Phone: Mucus LM Ql (Urine sed)on Mucus Ql (Urine sed) 0 SEEN /hpf [facility] Work Phone: Nitrite Test strip Ql (U)on 07-13-2022 Nitrite Ql (U) Negative Negative [facility] Work Phone: No Panel Informationon 07-13 Troponin I High Sensitivity 26 pg/mL 3.0-78.0 [facility] Work Phone: Comment on above: Please Note: New [place] t Units and Gender Specific Reference Ranges. For more information see Policy Stat Procedure Sullivan High Sensitivity Troponin (TNIH) and attachments. Estimated Creatinine Clearance Calc 28.40 ml/min [facility] Work Phone: Estimated GFR (MDRD) Amer 45 mL/min >60 [facility] Work Phone: Comment on above: GFR Calc Estimated GFR (MDRD) Non-Af Amer 38 mL/min >60 [facility] Work Phone: Comment on above: Non- GFR Calc Platelets bldon 07-13-2022 Platelets (Bld) [#/Vol] 184 10*3/uL 150-450 [facility] Work Phone: Protein Test strip Ql (U)on 07-13-2022 Protein Ql (U) Negative Negative [facility] Work Phone: Serum or plasma calcium viky urement (mass/volume)on 07-13-2022 Calcium [Mass/Vol] 8.8 mg/dL 8.5-10.1 [facility] Work Phone: Serum or plasma creatinine m easurement (mass/volume)on 07-13-2022 Creatinine [Mass/Vol] 1.83 mg/dL 0.70-1.30 [facility] Work Phone: Comment on above: The validity of the calculated GFR & GFRAA in patients over 70 years has not been determined. Clinical correlation is essential. Serum or plasma urea nitroge n measurement (mass/volume)on 07-13-2022 Urea nitrogen [Mass/Vol] 26 mg/dL 7-18 [facility] Work Phone: Squamous epithelial cells de tection in urine sediment by light microscopyon 07-13-2022 Epithelial cells.squamous LM Ql (Urine sed) 0 SEEN /hpf 0-5 [facility] Work Phone: Thin prep Papanicolaou smear with manual screeningon 07-13-2022 Thin prep Papanicolaou smear with manual screening 8 5-15 [facility] Work Phone: Urine blood detectionon 06-25 RBC Ql (U) Negative Negative [facility] Work Phone: RBC Ql (U) 0 SEEN /hpf 0-5 [facility] Work Phone: Urine clarityon 07-13-2022 Clarity (U) Clear Clear [facility] Work Phone: Urine color determinationon 07-13-2022 Color (U) Straw Yellow [facility] Work Phone: Urine glucose detectionon Glucose Ql (U) Normal mg/dl Normal [facility] Work Phone: Urine leukocyte esterase det ection by dipstickon 07-13-2022 Leukocyte esterase Test strip Ql (U) Negative Negative [facility] Work Phone: Urine pHon 07-13-2022 pH (U) 6.0 [pH] 5.0 - 8.0 [facility] Work Phone: Urine sediment bacteria coun t by microscopy (number/high power field)on 07-13-2022 Bacteria LM.HPF (Urine sed) [#/Area] 0 /[HPF] None Seen [facility] Work Phone: Urine specific gravity measu rementon 07-13-2022 Specific gravity (U) [Rel density] 1.010 1.002-1.03 0 [facility] Work Phone: Urobilinogen Auto test strip Ql (U)on 07-13-2022 Urobilinogen Ql (U) Normal mg/dl Normal [facility] Work Phone: Basic metabolic 2000 panelon 05-25-2022 Anion gap [Moles/Vol] 11 mmol/L Normal 9-18 [facility] Comment on above: Order Comment: Speci men Type: BLOOD SPECIMEN Ordering Facility: [facility] Address: [address] [place] [address] Performed By: #### 2 4321-2 #### [facility] CLIA [id number] [address] [place] [address] [place] Calcium [Mass/Vol] 9.0 mg/dL Normal 8.5-10.2 [facility] Comment on above: Order Comment: Speci men Type: BLOOD SPECIMEN Ordering Facility: [facility] Address: [address] [place] [address] Performed By: #### 2 4321-2 #### [facility] CLIA [id number] [address] [place] [address] [place] Chloride [Moles/Vol] 110 mmol/L High 97-105 [facility] Comment on above: Order Comment: Speci men Type: BLOOD SPECIMEN Ordering Facility: [facility] Address: [address] [place] [address] Performed By: #### 2 4321-2 #### [facility] CLIA [id number] [address] [place] [id number] [place] CO2 [Moles/Vol] 21 mmol/L Low 22-30 [facility] Comment on above: Order Comment: Speci men Type: BLOOD SPECIMEN Ordering Facility: [facility] Address: [address] [address] Performed By: #### 2 4321-2 #### [facility] IA [id number] [address] [place], [place] [id number] [place] Creatinine [Mass/Vol] 1.66 mg/dL High 0.73-1.22 [facility] Comment on above: Order Comment: Nathaniel amaya Type: BLOOD SPECIMEN Ordering Facility: [facility] Address: [address] [address] Performed By: #### 2 4321-2 #### [facility] IA [id number] [address] [place] [address] [place] ESTIMATED GLOMERULAR FILTRATION RATE 40 mL/min/1.73m??? Low >=60 [facility] Comment on above: Order Comment: Nathaniel amaya Type: BLOOD SPECIMEN Ordering Facility: [facility] Address: [address] [place] [address] Result Comment: Xochilt mated Glomerular Filtration Rate (eGFR) is calculated using the 2020 CKD-EPI creatinine equation. This equation utilizes serum creatinine, sex, and age as parameters. The creatinine assay has traceable calibration to isotope dilution-mass spectrometry. Refer to KDIGO guidelines for clinical interpretation. In patients with unstable renal function, e.g. those with acute kidney injury, the eGFR may not accurately reflect actual GFR. Performed By: #### 2 4321-2 #### [facility] CLIA [id number] [address] [place], [place] [id number] [place] Glucose [Mass/Vol] 105 mg/dL High 74-99 [facility] Comment on above: Order Comment: Nathaniel amaya Type: BLOOD SPECIMEN Ordering Facility: [facility] Address: [address] [place] [address] Result Comment: The [place] [employer] (ADA) provides guidance for cutoff values for fasting glucose and random glucose. The ADA defines fasting as no caloric intake for at least 8 hours. Fasting plasma glucose results between 100 to 125 mg/dL indicate increased risk for diabetes (prediabetes). Fasting plasma glucose results greater than or equal to 126 mg/dL meet the criteria for diagnosis of diabetes. In the absence of unequivocal hyperglycemia, results should be confirmed by repeat testing. In a patient with classic symptoms of hyperglycemia or hyperglycemic crisis, random plasma glucose results greater than or equal to 200 mg/dL meet the criteria for diagnosis of diabetes. Reference: Standards of Medical Care in Diabetes 2016, [place] [employer]. Diabetes Care. 2016.39(Suppl 1). Performed By: #### 2 4321-2 #### [facility] CLIA [id number] [address] [place] [id number] [place] Potassium [Moles/Vol] 3.6 mmol/L Low 3.7-5.1 [facility] Comment on above: Order Comment: Speci men Type: BLOOD SPECIMEN Ordering Facility: [facility] Address: [address] [place] [address] Performed By: #### 2 4321-2 #### [facility] CLIA [id number] [address] [place] [address] [place] Sodium [Moles/Vol] 142 mmol/L Normal 136-144 [facility] Comment on above: Order Comment: Nathaniel amaya Type: BLOOD SPECIMEN Ordering Facility: [facility] Address: [address] [place] [address] Performed By: #### 2 4321-2 #### [facility] CLIA [id number] [address] [place], [place] [address] [place] Urea nitrogen [Mass/Vol] 20 mg/dL Normal 9-24 [facility] Comment on above: Order Comment: Griseldai men Type: BLOOD SPECIMEN Ordering Facility: [facility] Address: [address] [place] [address] Performed By: #### 2 4321-2 #### [facility] CLIA [id number] [address] [address] [place] Absolute lymphocyte counton 05-13-2022 Lymphocytes Auto (Unsp spec) [#/Vol] 0.78 10*3/uL 0.83-4.51 [facility] Work Phone: Basophil percentageon 2021 Basophil percentage 3.0 mg/dL 2.5-4.9 [facility] Work Phone: Basophils/100 WBC (Bld) 0.0 % 0-1 [facility] Work Phone: Chloride [Moles/Vol] 115 mmol/L 98-107 [facility] Work Phone: Eosinophils/100 WBC (Bld) 1.5 % 0-5 [facility] Work Phone: Glucose [Mass/Vol] 101 mg/dL 74-106 [facility] Work Phone: Comment on above: Fasting Glucose resu lt from 100 to 125 mg/dL suggests IMPAIRED HOMEOSTASIS per A.D.A. criteria. Neutrophils (Bld) [#/Vol] 1.6 10*3/uL 2.0-7.7 [facility] Work Phone: Neutrophils/100 WBC (Bld) 59.4 % 47-70 [facility] Work Phone: Potassium [Moles/Vol] 3.3 mmol/L 3.5-5.1 [facility] Work Phone: Sodium [Moles/Vol] 141 mmol/L 136-145 [facility] Work Phone: WBC (Bld) [#/Vol] 2.6 10*3/uL 4.4-11.0 [facility] Work Phone: Blood erythrocytes count (nu mber/volume)on 05-13-2022 RBC (Bld) [#/Vol] 2.58 10*6/uL 4.6-6.2 [facility] Work Phone: Blood hemoglobin measurement (mass/volume)on 05-13-2022 Hemoglobin (Bld) [Mass/Vol] 8.6 g/dL 13.0-16.5 [facility] Work Phone: Blood lymphocytes/100 leukoc yteson 05-13-2022 Lymphocytes/100 WBC (Bld) 29.9 % 19-41 [facility] Work Phone: Blood monocytes/100 leukocyt eson 05-13-2022 Monocytes/100 WBC (Bld) 8.4 % 0-10 [facility] Work Phone: Blood platelet mean volumeon 05-13-2022 Platelet mean volume (Bld) [Entitic vol] 10.9 fL 6.2-12.0 [facility] Work Phone: Determination of erythrocyte mean corpuscular volume (MCV)on 05-13-2022 MCV (RBC) [Entitic vol] 100.4 fL 80-94 [facility] Work Phone: Hematocrit Auto (Bld) [Volum e fraction]on 05-13-2022 Hematocrit (Bld) [Volume fraction] 25.9 % 40-54 [facility] Work Phone: Laboratory - Chemistry and C hemistry - challengeon 05-13-2022 CO2 [Moles/Vol] 16.0 mmol/L 21.0-32.0 [facility] Work Phone: Magnesium [Mass/Vol] 2.0 mg/dL 1.6-2.6 [facility] Work Phone: Urea nitrogen/Creatinine [Mass ratio] 21.0 mg/mg 10-20 [facility] Work Phone: Laboratory - Hematology and Cell countson 05-13-2022 Erythrocyte distribution width (RBC) [Entitic vol] 56.4 fL 35.1-43.9 [facility] Work Phone: Erythrocyte distribution width (RBC) [Ratio] 15.3 % 11.6-14.6 [facility] Work Phone: Immature granulocytes/100 WBC (Bld) 0.800 % 0.0-0.9 [facility] Work Phone: [phone] Comment on above: IG% - Immature Granu locytes (promyelocytes, myelocytes and metamyelocytes) > 1% indicates that a LEFT SHIFT is Present. MCH (RBC) [Entitic mass] 33.3 pg 27.0-32.0 [facility] Work Phone: Nucleated RBC/100 WBC (Bld) [Ratio] 0 % 0-5 [facility] Work Phone: MCHC Auto (RBC) [Mass/Vol]on 05-13-2022 MCHC (RBC) [Mass/Vol] 33.2 g/dL 32-36 [facility] Work Phone: No Panel Informationon 05-13 Estimated Creatinine Clearance Calc 31.55 ml/min [facility] Work Phone: Estimated GFR (MDRD) Amer 52 mL/min >60 [facility] Work Phone: Comment on above: GFR Calc Estimated GFR (MDRD) Non-Af Amer 43 mL/min >60 [facility] Work Phone: Comment on above: Non- GFR Calc Platelets bldon 05-13-2022 Platelets (Bld) [#/Vol] 76 10*3/uL 150-450 [facility] Work Phone: Serum or plasma albumin viky urement (mass/volume)on 05-13-2022 Albumin [Mass/Vol] 2.9 g/dL 3.2-5.0 [facility] Work Phone: Serum or plasma calcium viky urement (mass/volume)on 05-13-2022 Calcium [Mass/Vol] 8.2 mg/dL 8.5-10.1 [facility] Work Phone: Serum or plasma creatinine m easurement (mass/volume)on 05-13-2022 Creatinine [Mass/Vol] 1.62 mg/dL 0.70-1.30 [facility] Work Phone: Comment on above: The validity of the calculated GFR & GFRAA in patients over 70 years has not been determined. Clinical correlation is essential. Serum or plasma urea nitroge n measurement (mass/volume)on 05-13-2022 Urea nitrogen [Mass/Vol] 34 mg/dL 7-18 [facility] Work Phone: Thin prep Papanicolaou smear with manual screeningon 05-11-2022 Thin prep Papanicolaou smear with manual screening 8 5-15 [facility] Work Phone: Basophil percentageon 2021 Basophil percentage 0 SEEN /hpf 0-5 [facility] Work Phone: Bilirubin Test strip Ql (U)o n 05-10-2022 Bilirubin Ql (U) Negative Negative [facility] Work Phone: Ketones Test strip Ql (U)on 05-10-2022 Ketones Ql (U) Negative Negative [facility] Work Phone: Mucus LM Ql (Urine sed)on Mucus Ql (Urine sed) 0 SEEN /hpf [facility] Work Phone: Nitrite Test strip Ql (U)on 05-10-2022 Nitrite Ql (U) Negative Negative [facility] Work Phone: Protein Test strip Ql (U)on 05-10-2022 Protein Ql (U) 100 mg/dl Negative [facility] Work Phone: Squamous epithelial cells de tection in urine sediment by light microscopyon 05-10-2022 Epithelial cells.squamous LM Ql (Urine sed) 0 SEEN /hpf 0-5 [facility] Work Phone: Urine blood detectionon 04-24 RBC Ql (U) 25 /ul Negative [facility] Work Phone: RBC Ql (U) 0-5 SEEN /hpf 0-5 [facility] Work Phone: Urine clarityon 05-10-2022 Clarity (U) Clear Clear [facility] Work Phone: Urine color determinationon 05-10-2022 Color (U) Yellow Yellow [facility] Work Phone: Urine glucose detectionon Glucose Ql (U) Normal mg/dl Normal [facility] Work Phone: Urine leukocyte esterase det ection by dipstickon 05-10-2022 Leukocyte esterase Test strip Ql (U) Negative Negative [facility] Work Phone: Urine pHon 05-10-2022 pH (U) 6.0 [pH] 5.0 - 8.0 [facility] Work Phone: Urine sediment bacteria coun t by microscopy (number/high power field)on 05-10-2022 Bacteria LM.HPF (Urine sed) [#/Area] 0 /[HPF] None Seen [facility] Work Phone: Urine specific gravity measu rementon 05-10-2022 Specific gravity (U) [Rel density] 1.020 1.002-1.03 0 [facility] Work Phone: Urobilinogen Auto test strip Ql (U)on 05-10-2022 Urobilinogen Ql (U) Normal mg/dl Normal [facility] Work Phone: [phone] Absolute lymphocyte counton 05-07-2022 Lymphocytes Auto (Unsp spec) [#/Vol] 0.45 10*3/uL 0.83-4.51 [facility] Work Phone: Basophil percentageon 2021 Basophils/100 WBC (Bld) 0.3 % 0-1 [facility] Work Phone: Chloride [Moles/Vol] 112 mmol/L 98-107 [facility] Work Phone: Eosinophils/100 WBC (Bld) 0.5 % 0-5 [facility] Work Phone: Glucose [Mass/Vol] 130 mg/dL 74-106 [facility] Work Phone: Comment on above: Fasting Glucose resu lt greater than or equal to 126 mg/dL suggests DIABETES MELLITUS per A.D.A. criteria. Neutrophils (Bld) [#/Vol] 2.9 10*3/uL 2.0-7.7 [facility] Work Phone: [phone] Neutrophils/100 WBC (Bld) 73.4 % 47-70 [facility] Work Phone: Potassium [Moles/Vol] 4.0 mmol/L 3.5-5.1 [facility] [facility] Work Phone: [phone] Sodium [Moles/Vol] 138 mmol/L 136-145 [facility] Work Phone: WBC (Bld) [#/Vol] 3.9 10*3/uL 4.4-11.0 [facility] Work Phone: [phone] Blood erythrocytes count (nu mber/volume)on 05-07-2022 RBC (Bld) [#/Vol] 3.06 10*6/uL 4.6-6.2 [facility] Work Phone: [phone] Blood hemoglobin measurement (mass/volume)on 05-07-2022 Hemoglobin (Bld) [Mass/Vol] 10.1 g/dL 13.0-16.5 [facility] Work Phone: Blood lymphocytes/100 leukoc yteson 05-07-2022 Lymphocytes/100 WBC (Bld) 11.5 % 19-41 [facility] Work Phone: [phone] Blood manual differential co mment interpretation (narrative result)on 05-07-2022 Manual differential comment Rafal (Bld) [Interp] SEE COMMENT [facility] Work Phone: [phone] Comment on above: LYMPHOPENIA NOTED Blood monocytes/100 leukocyt eson 05-07-2022 Monocytes/100 WBC (Bld) 14.0 % 0-10 [facility] Work Phone: [phone] Blood platelet adequacy dete ction by light microscopyon 05-07-2022 Platelets LM Ql (Bld) SLT DEC ADEQ [facility] Work Phone: [phone] Blood platelet mean volumeon 05-07-2022 Platelet mean volume (Bld) [Entitic vol] 9.9 fL 6.2-12.0 [facility] Work Phone: [phone] Determination of erythrocyte mean corpuscular volume (MCV)on 05-07-2022 MCV (RBC) [Entitic vol] 102.0 fL 80-94 [facility] Work Phone: [phone] Hematocrit Auto (Bld) [Volum e fraction]on 05-07-2022 Hematocrit (Bld) [Volume fraction] 31.2 % 40-54 [facility] Work Phone: [phone] Laboratory - Chemistry and C hemistry - challengeon 05-07-2022 CO2 [Moles/Vol] 19.0 mmol/L 21.0-32.0 [facility] Work Phone: Urea nitrogen/Creatinine [Mass ratio] 19.2 mg/mg 10-20 [facility] Work Phone: Laboratory - Hematology and Cell countson 05-07-2022 Anisocytosis Ql (Bld) 1+ [facility] Work Phone: Erythrocyte distribution width (RBC) [Entitic vol] 57.7 fL 35.1-43.9 [facility] Work Phone: [phone] Erythrocyte distribution width (RBC) [Ratio] 15.5 % 11.6-14.6 [facility] Work Phone: Immature granulocytes/100 WBC (Bld) 0.300 % 0.0-0.9 [facility] Work Phone: [phone] Comment on above: IG% - Immature Granu locytes (promyelocytes, myelocytes and metamyelocytes) > 1% indicates that a LEFT SHIFT is Present. MCH (RBC) [Entitic mass] 33.0 pg 27.0-32.0 [facility] Work Phone: Nucleated RBC/100 WBC (Bld) [Ratio] 0 % 0-5 [facility] Work Phone: MCHC Auto (RBC) [Mass/Vol]on 05-07-2022 MCHC (RBC) [Mass/Vol] 32.4 g/dL 32-36 [facility] Work Phone: [phone] Macrocytes detectionon 05-07 Macrocytes Ql (Bld) 1+ [facility] Work Phone: No Panel Informationon 05-07 Estimated Creatinine Clearance Calc 26.25 ml/min [facility] Work Phone: Estimated GFR (MDRD) Amer 41 mL/min >60 [facility] Work Phone: Comment on above: GFR Calc Estimated GFR (MDRD) Non-Af Amer 34 mL/min >60 [facility] Work Phone: Comment on above: Non- GFR Calc Platelets bldon 05-07-2022 Platelets (Bld) [#/Vol] 131 10*3/uL 150-450 [facility] Work Phone: RBC morphologyon 05-07-2022 RBC morphology finding Nom (Bld) N CHROM NORMAL NORM C&C [facility] Work Phone: Review by pathologiston 04-24 Pathologist review Rafal (Unsp spec) [Interp] Daniela roman [facility] Work Phone: Pathologist review Rafal (Unsp spec) [Interp] Reviewed [facility] Work Phone: Comment on above: Previous reported re sult: Daniela roman Edited by: RGOSVETLANA on 05/08/22:1116Pancytopenia.Macrocytic anemia.Leukopenia Mild ThrombocytopeniaClinical correlation necessary.David Guerrero M.D. 05/08/22 AMENDED REPORT 05/08/22 1116 PATH REV previously reported as: Daniela roman Serum or plasma calcium viky urement (mass/volume)on 05-07-2022 Calcium [Mass/Vol] 8.9 mg/dL 8.5-10.1 [facility] Work Phone: Serum or plasma creatinine m easurement (mass/volume)on 05-07-2022 Creatinine [Mass/Vol] 1.98 mg/dL 0.70-1.30 [facility] Work Phone: Comment on above: The validity of the calculated GFR & GFRAA in patients over 70 years has not been determined. Clinical correlation is essential. Serum or plasma urea nitroge n measurement (mass/volume)on 05-07-2022 Urea nitrogen [Mass/Vol] 38 mg/dL 05-11 [facility] Work Phone: Thin prep Papanicolaou smear with manual screeningon 05-07-2022 Thin prep Papanicolaou smear with manual screening 03-08 [facility] Work Phone: No Panel Informationon 03-13 BLANK _ [facility] Implant Date 06/19/2015 [facility] PACEMAKER REMOTE CHECKon AMS Duration (ms) 0 s [facility] AV Delay Adaptive Paced Minimum (ms) 280 ms [facility] AV Delay Adaptive Sensed Minimum (ms) 250 ms [facility] AV Delay Adaptive Status DISABLED [facility] Battery Impedance (ohms) 1409 ohm [facility] Battery Voltage (volts) 2.76 V [facility] Gary RA Pacing Amplitude (volts) 1.5 V [facility] Gary RA Pacing Polarity BI [facility] Gary RA Pacing Pulse Width (ms) 0.4 ms [facility] Gary RA Sensing Amplitude (mvolts) 0.35 mV [facility] Gary RA Sensing Blanking Period (ms) 180 ms [facility] Gary RA Sensing Polarity BI [facility] Gary RA Sensing Refractory Period (ms) Auto [facility] Gary RV Pacing Amplitude (volts) 2 V [facility] Gary RV Pacing Polarity BI [facility] Gary RV Pacing Pulse Width (ms) 0.4 ms [facility] Gary RV Sensing Amplitude (mvolts) 4 mV [facility] Gary RV Sensing Blanking Period (ms) 28 ms [facility] Gary RV Sensing Polarity BI [facility] Gary RV Sensing Refractory Period (ms) 230 ms [facility] Lead1 Mfg Medtronic [facility] Lead2 Mfg Medtronic [facility] Location RA [facility] Location RV [facility] Lower Rate (bpm) 60 {beats}/min [facility] Max Sensor Rate (bmp) 130 {beats}/min [facility] Model [id number] Versa [facility] Model 5076-52 Capsurefix Novus [facility] Model 5076-58 [facility] Pacing Mode DDDR [facility] PM-Device Mfg MDT [facility] PM-PMT Intervention ENABLED [facility] PM-PVC Intervention ENABLED [facility] PM-Rate Modulation Acceleration Reaction 30 s [facility] PM-Rate Modulation ADL Rate (bpm) 95 {beats}/min [facility] PM-Rate Modulation Deceleration Exercise [facility] PM-Rate Modulation Obion 3 [facility] PM-Rate Modulation Threshold Medium/Low [facility] Serial Number [id number] [facility] Serial Number [id number] [facility] Serial Number [id number] [facility] Thresh RA Capture Amplitude (volts) 0.625 V [facility] Thresh RA Capture Duration (ms) 0.4 ms [facility] Thresh RV Capture Amplitude (volts) 0.75 V [facility] Thresh RV Capture Duration (ms) 0.4 ms [facility] Tracking Rate (bpm) 130 {beats}/min [facility] Absolute lymphocyte counton 01-05-2022 Lymphocytes Auto (Unsp spec) [#/Vol] 0.93 10*3/uL 0.83-4.51 [facility] Work Phone: [phone] Basophil percentageon 2021 Basophils/100 WBC (Bld) 0.5 % 0-1 [facility] Work Phone: Chloride [Moles/Vol] 110 mmol/L 98-107 [facility] Work Phone: Eosinophils/100 WBC (Bld) 2.1 % 0-5 [facility] Work Phone: [phone] Glucose [Mass/Vol] 114 mg/dL 74-106 [facility] Work Phone: [phone] Comment on above: Fasting Glucose resu lt from 100 to 125 mg/dL suggests IMPAIRED HOMEOSTASIS per A.D.A. criteria. Neutrophils (Bld) [#/Vol] 4.4 10*3/uL 2.0-7.7 [facility] Work Phone: Neutrophils/100 WBC (Bld) 72.6 % 47-70 [facility] Work Phone: Potassium [Moles/Vol] 2.9 mmol/L 3.5-5.1 [facility] Work Phone: [phone] Sodium [Moles/Vol] 142 mmol/L 136-145 [facility] Work Phone: WBC (Bld) [#/Vol] 6.1 10*3/uL 4.4-11.0 [facility] Work Phone: [phone] Blood erythrocytes count (nu mber/volume)on 01-05-2022 RBC (Bld) [#/Vol] 3.20 10*6/uL 4.6-6.2 [facility]: [phone] Blood hemoglobin measurement (mass/volume)on 01-05-2022 Hemoglobin (Bld) [Mass/Vol] 10.4 g/dL 13.0-16.5 [facility] Work Phone: Blood lymphocytes/100 leukoc yteson 01-05-2022 Lymphocytes/100 WBC (Bld) 15.3 % 19-41 [facility] Work Phone: Blood monocytes/100 leukocyt eson 01-05-2022 Monocytes/100 WBC (Bld) 9.2 % 0-10 [facility] Work Phone: [phone] Blood platelet mean volumeon 01-05-2022 Platelet mean volume (Bld) [Entitic vol] 9.3 fL 6.2-12.0 [facility] Work Phone: Determination of erythrocyte mean corpuscular volume (MCV)on 01-05-2022 MCV (RBC) [Entitic vol] 99.7 fL 80-94 [facility] Work Phone: [phone] Hematocrit Auto (Bld) [Volum e fraction]on 01-05-2022 Hematocrit (Bld) [Volume fraction] 31.9 % 40-54 [facility] Work Phone: [phone] Laboratory - Chemistry and C hemistry - challengeon 01-05-2022 CO2 [Moles/Vol] 27.0 mmol/L 21.0-32.0 [facility] Work Phone: [phone] Natriuretic peptide B (Bld) [Mass/Vol] 2015.4 pg/mL 0-100 [facility] Work Phone: [phone] Urea nitrogen/Creatinine [Mass ratio] 15.4 mg/mg 10-20 [facility] Work Phone: Laboratory - Hematology and Cell countson 01-05-2022 Erythrocyte distribution width (RBC) [Entitic vol] 56.2 fL 35.1-43.9 [facility] Work Phone: Erythrocyte distribution width (RBC) [Ratio] 15.6 % 11.6-14.6 [facility] Work Phone: Immature granulocytes/100 WBC (Bld) 0.300 % 0.0-0.9 [facility] Work Phone: Comment on above: IG% - Immature Granu locytes (promyelocytes, myelocytes and metamyelocytes) > 1% indicates that a LEFT SHIFT is Present. MCH (RBC) [Entitic mass] 32.5 pg 27.0-32.0 [facility] Work Phone: Nucleated RBC/100 WBC (Bld) [Ratio] 0 % 0-5 [facility] Work Phone: Lower GI hemoglobin IA Ql (S tl)on 01-05-2022 Stool Occult Blood (ALLYSSA) Positive [facility] Work Phone: MCHC Auto (RBC) [Mass/Vol]on 01-05-2022 MCHC (RBC) [Mass/Vol] 32.6 g/dL 32-36 [facility] Work Phone: No Panel Informationon 01-05 Estimated Creatinine Clearance Calc 41.43 ml/min [facility] Work Phone: Estimated GFR (MDRD) Amer 67 mL/min >60 [facility] Work Phone: Comment on above: GFR Calc Estimated GFR (MDRD) Non-Af Amer 56 mL/min >60 [facility] Work Phone: Comment on above: Non- GFR Calc Troponin I High Sensitivity 48 pg/mL 3.0-78.0 [facility] Work Phone: Comment on above: Please Note: New [place] t Units and Gender Specific Reference Ranges. For more information see Policy Stat Procedure Sullivan High Sensitivity Troponin (TNIH) and attachments. Platelets bldon 01-05-2022 Platelets (Bld) [#/Vol] 227 10*3/uL 150-450 [facility] Work Phone: Serum or plasma calcium viky urement (mass/volume)on 01-05-2022 Calcium [Mass/Vol] 8.8 mg/dL 8.5-10.1 [facility] Work Phone: Serum or plasma creatinine m easurement (mass/volume)on 01-05-2022 Creatinine [Mass/Vol] 1.30 mg/dL 0.70-1.30 [facility] ster [facility] Work Phone: Comment on above: The validity of the calculated GFR & GFRAA in patients over 70 years has not been determined. Clinical correlation is essential. Serum or plasma urea nitroge n measurement (mass/volume)on 01-05-2022 Urea nitrogen [Mass/Vol] 20 mg/dL 7-18 [facility] Work Phone: Thin prep Papanicolaou smear with manual screeningon 01-05-2022 Thin prep Papanicolaou smear with manual screening 5 5-15 [facility] Work Phone: [facility] -- DARCY LUCAS ([id number]) 1935 M Date Time Provider Department 12/26/21 ALFREDO MEJÍA HaparaARDPOB During your visit today, we recorded the following information about you: Carmella Mcintosh RN 12/26/2021 1:46 PM Signed Eliquis assistance paperwork received from patient, faxed to [employer] [facility] along with prescription for Eliquis. Confirmation received. Patient aware of status. Carmella Mcintosh RN . 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 - Magnesium Chloride (SLOW-MAG) 71.5 mg TbEC Take 2 tablets by mouth once daily. - Cholecalciferol, Vitamin D3, 25 mcg (1,000 unit) cap Take 2 capsules by mouth once daily. - metoprolol tartrate, short acting, (LOPRESSOR) 50 mg tablet Take 0.5 tablets by mouth twice daily. - atorvastatin (LIPITOR) 40 mg tablet Take 1 tablet by mouth once daily. - apixaban (ELIQUIS) 2.5 mg tab tab(s) Take 1 tablet by mouth twice daily. - Zinc 50 mg tab Take 50 mg by mouth once daily. - OTC NUTRITIONAL SUPPLEMENT Vitamin B3 - allopurinol (ZYLOPRIM) 100 mg tablet Take 2 tablets by mouth once daily. For gout. - losartan (COZAAR) 50 mg tablet Take 1 tablet by mouth once daily. - omeprazole (PRILOSEC) 20 mg capsule Take 1 capsule by mouth daily before breakfast. 1/2 hr before meal. - albuterol HFA (PROVENTIL HFA, VENTOLIN HFA) 90 mcg/actuation inhaler Inhale 2 Puffs as instructed. - triamcinolone acetonide (NASACORT) 55 mcg nasal inhaler Use 2 Sprays in the nose once daily. [facility] - cyanocobalamin (VITAMIN B-12) 1,000 mcg tab Take 1 tablet by mouth once daily. - Qlykz-4-LTB-EPA-Fish Oil (FISH OIL) 1,000 mg (120 mg-180 mg) cap Take 2 g by mouth once daily. - PSYLLIUM HUSK, BULK, MISC Take 1 Packet by mouth once daily. - pyridoxine, vitamin B6, (VITAMIN B-6) 100 mg tablet Take 1 tablet by mouth once daily. 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] [...] left shoulder [M7*06/12/2014 Coronary artery disease involving [place]*07/29/2015 S/P CABG (coronary artery bypass graft) [Z95.1] 2015 Hypokalemia [E87.6] 02/05/2016 Osteoarthritis of spine with radiculopathy, lum*02/21/2016 History of permanent cardiac pacemaker placemen*09/03/2016 Paroxysmal atrial fibrillation (HCC) [I48.0] 09/03/2016 Chronic anticoagulation [Z79.01] 09/03/2016 12/16/2018 Carotid stenosis, asymptomatic [I65.29] 02/11/2017 Hyperglycemia [R73.9] 02/11/2017 Anemia of chronic disease [D63.8] 02/11/2017 Atrial fibrillation (HCC) [I48.91] 06/03/2017 02/17/2018 CKD (chronic kidney disease), stage III (HCC) [* Lumbar spinal stenosis [M48.061] 11/24/2018 Acute on chronic intracranial subdural hematoma*11/25/2018 Non-rheumatic mitral regurgitation [I34.0] 12/18/2019 Acute idiopathic gout involving toe of left mandie*03/19/2020 Heart failure, unspecified (HCC) [I50.9] 03/26/2021 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 Roller Helper: MARCIA Transcribe Date/Time: Nov 08 2021 12:13P Dictated by : ELIZABETH GRACE MD This examination was interpreted and the report reviewed and electronically signed by: ELIZABETH GRACE MD on Nov 08 2021 12:14PM [facility] DIVISION OF RADIOLOGY * * *Final Report* * * DATE OF EXAM: Nov 08 2021 12:11PM WOX 5297 - XR ANKLE 3V AP/LAT/OBL RT / PROCEDURE REASON: Acute right ankle pain * * * * Physician Interpretation * * * * Clinical Information: Right ankle pain Three views of the right ankle were obtained. No fracture is identified. Ankle mortise is intact. No lytic or blastic lesions are identified. No soft tissue abnormalities are seen. DIVISION OF RADIOLOGY Provider, [facility] - 11/08/2021 * * *Final Report* * * DATE OF EXAM: Nov 08 2021 12:11PM WOX 5297 - XR ANKLE 3V AP/LAT/OBL RT / PROCEDURE REASON: Acute right ankle pain * * * * Physician Interpretation * * * * Clinical Information: Right ankle pain Three views of the right ankle were obtained. No fracture is identified. Ankle mortise is intact. No lytic or blastic lesions are identified. No soft tissue abnormalities are seen. IMPRESSION IMPRESSION: Negative right ankle. Roller Helper: PSCB Transcribe Date/Time: Nov 08 2021 12:13P Dictated by : ELIZABETH GRACE MD This examination was interpreted and the report reviewed and electronically signed by: ELIZABETH GRACE MD on Nov 08 2021 12:14PM [facility] Radiology Study observation (narrative) [facility] XR Ankle - right AP and Late ral and obliqueOrdered By: Ccf Provider on 11-08-2021 [facility] XR Chest PA and Lateralon IMPRESSION: RESULT: Lines, tubes, and devices: Cardiac leads are unchanged in position. Lungs and pleura: Minimal blunting of the RIGHT costophrenic angle noted. Small amount of patchy infiltrate/atelectasis LEFT lung base Cardiomediastinal silhouette: Mild cardiomegaly Bones and soft tissues: Unremarkable. Roller Helper: MARCIA Transcribe Date/Time: Dec 20 2020 12:20P Dictated by : DULCE REYNA DO This examination was interpreted and the report reviewed and electronically signed by: DULCE REYNA DO on Dec 20 2020 12:22PM [facility] DIVISION OF RADIOLOGY * * *Final Report* * * DATE OF EXAM: Dec 20 2020 10:42AM WOX 5291 - XR CHEST 2V FRONTAL/LAT / PROCEDURE REASON: multiple diagnoses * * * * Physician Interpretation * * * * EXAMINATION: CHEST RADIOGRAPH (2 VIEW FRONTAL & LATERAL) CLINICAL HISTORY: Acute congestive heart failure, unspecified heart failure type (HCC) Cough MQ: XC2_6 EXAM DATE/TIME: 12/20/2020 10:42 AM COMPARISON: 07/10/2016 DIVISION OF RADIOLOGY Provider, Katharine Kelly [facility] - 12/20/2020 * * *Final Report* * * DATE OF EXAM: Dec 20 2020 10:42AM WOX 5291 - XR CHEST 2V FRONTAL/LAT / PROCEDURE REASON: multiple diagnoses * * * * Physician Interpretation * * * * EXAMINATION: CHEST RADIOGRAPH (2 VIEW FRONTAL & LATERAL) CLINICAL HISTORY: Acute congestive heart failure, unspecified heart failure type (HCC) Cough MQ: XC2_6 EXAM DATE/TIME: 12/20/2020 10:42 AM COMPARISON: 07/10/2016 IMPRESSION IMPRESSION: RESULT: Lines, tubes, and devices: Cardiac leads are unchanged in position. Lungs and pleura: Minimal blunting of the RIGHT costophrenic angle noted. Small amount of patchy infiltrate/atelectasis LEFT lung base Cardiomediastinal silhouette: Mild cardiomegaly Bones and soft tissues: Unremarkable. Roller Helper: MARCIA Transcribe Date/Time: Dec 20 2020 12:20P Dictated by : DULCE REYNA DO This examination was interpreted and the report reviewed and electronically signed by: DULCE REYNA DO on Dec 20 2020 12:22PM EST [facility] Radiology Study observation (narrative) Marisela morillo [facility] XR Chest PA and LateralOrder ed By: Ccf Provider on 12-20-2020 [facility] XR Knee - right 4 Viewson IMPRESSION: Small jayla int effusion and soft tissue swelling of the right knee. No acute fractures seen. Roller Helper: MARCIA Transcribe Date/Time: Aug 07 2020 12:08P Dictated by : KUSHAL MONTEMAYOR MD This examination was interpreted and the report reviewed and electronically signed by: KUSHAL MONTEMAYOR MD on Aug 07 2020 12:10PM [facility] DIVISION OF RADIOLOGY * * *Final Report* * * DATE OF EXAM: Aug 06 2020 3:35PM WOX 5203 - XR KNEE 4V AP/PA BOTH+LAT/JEFF RT / PROCEDURE REASON: multiple diagnoses * * * * Physician Interpretation * * * * EXAM TITLE: XR KNEE 4V AP/PA BOTH+LAT/JEFF RT EXAM DATE/TIME: 08/06/2020 3:35 PM COMPARISON: None. CLINICAL INDICATION/HISTORY: Fall. TECHNIQUE: AP/PA, lateral and sunrise views of the right knee are presented. FINDINGS: No acute fractures or subluxations are noted. The joint spaces are well preserved. Marginal bony spurs identified. There is a small joint effusion. The mineralization of the bones is normal. There is soft tissue swelling along the anterior superior aspect of the knee. The vascular calcifications seen. DIVISION OF RADIOLOGY [facility] * * *Final Report* * * DATE OF EXAM: Aug 06 2020 3:35PM WOX 5203 - XR KNEE 4V AP/PA BOTH+LAT/JEFF RT / PROCEDURE REASON: multiple diagnoses * * * * Physician Interpretation * * * * EXAM TITLE: XR KNEE 4V AP/PA BOTH+LAT/JEFF RT EXAM DATE/TIME: 08/06/2020 3:35 PM COMPARISON: None. CLINICAL INDICATION/HISTORY: Fall. TECHNIQUE: AP/PA, lateral and sunrise views of the right knee are presented. FINDINGS: No acute fractures or subluxations are noted. The joint spaces are well preserved. Marginal bony spurs identified. There is a small joint effusion. The mineralization of the bones is normal. There is soft tissue swelling along the anterior superior aspect of the knee. The vascular calcifications seen. IMPRESSION IMPRESSION: Small joint effusion and soft tissue swelling of the right knee. No acute fractures seen. Roller Helper: PSCB Transcribe Date/Time: Aug 07 2020 12:08P Dictated by : KUSHAL MONTEMAYOR MD This examination was interpreted and the report reviewed and electronically signed by: KUSHAL MONTEMAYOR MD on Aug 07 2020 12:10PM EST [facility] XR Knee - right 4 ViewsOrder ed By: Ccf Provider on 08-07-2020 [facility] XR Knee - right 4 Viewson Radiology Study observation (narrative) [facility] Basic Panelon 12-05-2018 Creatinine [Mass/Vol] 1.14 mg/dL Normal 0.67-1.17 [facility] Comment on above: Performed By: #### P 8 #### [address] [address] Anion gap [Moles/Vol] 12 mmol/L Normal 8-16 [facility] Comment on above: Performed By: #### P 8 #### [facility] [address] [place], [place] [address] CO2 [Moles/Vol] 25 mmol/L Normal 21-32 [facility] Comment on above: Performed By: #### P 8 #### [facility] [address] [place], [place] [address] Glucose [Mass/Vol] 134 mg/dL High 70-99 [facility] Comment on above: Performed By: #### P 8 #### [address] [address] Urea nitrogen [Mass/Vol] 38 mg/dL High 7-18 [facility] Comment on above: Performed By: #### P 8 #### [facility] [facility] [address] [place] [address] Calcium [Mass/Vol] 8.6 mg/dL Normal 8.5-10.1 [facility] Comment on above: Performed By: #### P 8 #### [facility] [address] [address] Chloride [Moles/Vol] 109 mmol/L High 98-107 [facility] Comment on above: Performed By: #### P 8 #### [facility] [address] [address] Potassium [Moles/Vol] 4.1 mmol/L Normal 3.5-5.1 [facility] Comment on above: Performed By: #### P 8 #### [facility] [address] [address] Sodium [Moles/Vol] 142 mmol/L Normal 136-145 [facility] Comment on above: Performed By: #### P 8 #### [facility] [address] [address] Hemogram/Diffon 12-05-2018 Abs Immature Grans 0.02 thou/cmm Normal 0.00-0.05 [facility] Comment on above: Performed By: #### C BCD1 #### [facility] [address] [address] Abs. Baso 0.04 thou/cmm Normal 0.01-0.08 [facility] Comment on above: Performed By: #### C BCD1 #### [facility] [address] [address] Abs. [place] 0.60 thou/cmm Normal 0.30-0.82 [facility] Comment on above: Performed By: #### C BCD1 #### [facility] [address] [address] Abs. Neut (ANC) 3.99 thou/cmm Normal 1.78-5.38 [facility] Comment on above: Performed By: #### C BCD1 #### [facility] [address] [place], [place] [address] Basophils/100 WBC (Bld) 0.7 % Normal [facility] Comment on above: Performed By: #### C BCD1 #### [facility] [address] [place], [place] [address] Eosinophils (Bld) [#/Vol] 0.37 thou/cmm Normal 0.04-0.54 [facility] Comment on above: Performed By: #### C BCD1 #### [facility] [address] [place], [place] [address] Eosinophils/100 WBC (Bld) 6.2 % Normal [facility] Comment on above: Performed By: #### C BCD1 #### [facility] [address] [place], [place] [address] Erythrocyte distribution width (RBC) [Ratio] 13.9 % Normal 11.6-14.4 [facility] Comment on above: Performed By: #### C BCD1 #### [facility] [address] [place], [place] [address] Hematocrit (Bld) [Volume fraction] 30.1 % Low 40.1-51.0 [facility] Comment on above: Performed By: #### C BCD1 #### [facility] [address] [place], [place] [address] Hemoglobin (Bld) [Mass/Vol] 9.8 g/dL Low 13.7-17.5 [facility] Comment on above: Performed By: #### C BCD1 #### [facility] [address] [address] Immature Grans 0.30 % Normal [facility] Comment on above: Performed By: #### C BCD1 #### [facility] [address] [place], [place] [address] Lymphocytes (Bld) [#/Vol] 0.98 thou/cmm Normal 0.84-2.85 [facility] Comment on above: Performed By: #### C BCD1 #### [facility] [address] [place], [place] [address] Lymphocytes/100 WBC (Bld) 16.3 % Normal [facility] Comment on above: Performed By: #### C BCD1 #### [facility] [address] [address] MCH (RBC) [Entitic mass] 31.9 pg Normal 25.7-32.2 [facility] Comment on above: Performed By: #### C BCD1 #### [facility] [address] [address] MCHC (RBC) [Mass/Vol] 32.6 % Normal 32.3-36.5 [facility] Comment on above: Performed By: #### C BCD1 #### [facility] [address] [address] MCV (RBC) [Entitic vol] 98.0 fL High 83.2-95.6 [facility] Comment on above: Performed By: #### C BCD1 #### [place] [address] Monocytes/100 WBC (Bld) 10.0 % Normal [facility] Comment on above: Performed By: #### C BCD1 #### [facility] [address] [place] [address] Platelet mean volume (Bld) [Entitic vol] 9.4 fL Normal 8.7-12.0 [facility] Comment on above: Performed By: #### C BCD1 #### [facility] [address] [address] Platelets (Bld) [#/Vol] 272 thou/cmm Normal 141-365 [facility] Comment on above: Performed By: #### C BCD1 #### [facility] [address] [address] RBC (Bld) [#/Vol] 3.07 mil/cmm Low 4.63-6.08 [facility] Comment on above: Performed By: #### C BCD1 #### [facility] [address] [place] [address] RDW SD 49.3 fl High 36.1-45.8 [facility] Comment on above: Performed By: #### C BCD1 #### [facility] [address] [address] Seg Neutrophil 66.5 % Normal [facility] Comment on above: Performed By: #### C BCD1 #### [facility] [address] [place], [place] [address] WBC (Bld) [#/Vol] 6.00 thou/cmm Normal 4.23-9.07 [facility] Comment on above: Performed By: #### C BCD1 #### [facility] [address] [place] [id number] MDRD GFRon 12-05-2018 GFR/1.73 sq M predicted among non-blacks MDRD (S/P/Bld) [Vol rate/Area] mL/min/{1.73_m2} Normal >60mL/min/ 1.73m2 [facility] Comment on above: Result Comment: If t he patient is , multiply the result by 1.210. Performed By: #### G FR #### [facility] [address] [place] [id number] Protimeon 12-05-2018 INR Coag (PPP) [Relative time] 1.09 {INR} Normal 0.90-1.30 [facility] Comment on above: Result Comment: Note : Reference Range Change Vitamin K Antagonist (VKA) Therapeutic Range: INR 2 to 3 (Target INR of 2.5) Note: For patients treated with VKA drugs, such as warfarin, the [employer] 2012 Guideline recommends a therapeutic INR range of 2 to 3 (target INR of 2.5). This recommendation includes high-risk patients with antiphospholipid syndrome with previous arterial or venous thromboembolism, current-generation mechanical or bioprosthetic aortic heart valve replacement. VKA Therapeutic Range for some Mechanical Valve Replacement: INR 2.5 to 3.5 (Target INR of 3) Note: Patients with mechanical aortic valve replacement and additional risk factors for thromboembolic events (atrial fibrillation, previous thromboembolism, LV dysfunction, hypercoagulable conditions) or an older generation mechanical AVR (i.e., ball in-Cage) or any mechanical MVR should have a INR therapeutic range of 2.5 to 3.5 target INR of 3). Joie GH, et al. Chest 2012; 141:7S-47S Luc RA et al. JACC 2017; 70: 252-289 Performed By: #### P T #### [facility] [address] [place], [place] [address] PT Coag (PPP) [Time] 11.3 s Normal 9.7-13.0 [facility] Comment on above: Performed By: #### P T #### [facility] [address] [place], [place] [address] No Panel Information Enter[facility] Bacteriology [facility] Work Phone: SARS-CoV-2 & FLU Antigen (Rapid) SARS-CoV-2 (COVID 19) [facility] Work Phone: Vital Signs Date Time Vital Sign Value Performing Clinician Facility 07-02-2025 14:15-0400 Body height 177.8 cm Cheli Grace MD Work Phone: [facility] 07-02-2025 14:15-0400 Body mass index (BMI) [Ratio] 20.9 kg/m2 Cheli Grace MD Work Phone: [facility] 07-02-2025 14:15-0400 Body weight 66.22 kg Cheli Grace MD Work Phone: [facility] 07-02-2025 14:15-0400 Diastolic blood pressure 86 mm[Hg] Cheli Grace MD Work Phone: [facility] 07-02-2025 14:15-0400 Heart rate 69 /min Cheli Grace MD Work Phone: [facility] 07-02-2025 14:15-0400 Respiratory rate 16 /min Cheli Grace MD Work Phone: [facility] 07-02-2025 14:15-0400 Systolic blood pressure 145 mm[Hg] Cheli Grace MD Work Phone: [facility] 06-13-2025 14:29-0400 Body height 177.8 cm Cheli Grace MD Work Phone: [facility] 06-13-2025 14:29-0400 Body mass index (BMI) [Ratio] 20 kg/m2 Cheli Grace MD Work Phone: [facility] 06-13-2025 14:29-0400 Body temperature 98.2 [degF] Cheli Grace MD Work Phone: [facility] 06-13-2025 14:29-0400 Body weight 63.5 kg Cheli Grace MD Work Phone: [facility] 06-13-2025 14:29-0400 Diastolic blood pressure 84 mm[Hg] Cheli Grace MD Work Phone: [facility] 06-13-2025 14:29-0400 Heart rate 78 /min Cheli Grace MD Work Phone: [facility] 06-13-2025 14:29-0400 Respiratory rate 18 /min Cheli Grace MD Work Phone: 4(393)698-821836 [address] 06-13-2025 14:29-0400 SaO2% (BldA) [Mass fraction] 96 % Cheli Grace MD Work Phone: [facility] 06-13-2025 14:29-0400 Systolic blood pressure 132 mm[Hg] Cheli Grace MD Work Phone: [facility] 05-16-2025 13:43-0400 Body height 177.8 cm Cheli Grace MD Work Phone: [facility] 05-16-2025 13:43-0400 Body mass index (BMI) [Ratio] 20.1 kg/m2 Cheli Grace MD Work Phone: [facility] 05-16-2025 13:43-0400 Body temperature 98.1 [degF] Cheli Grace MD Work Phone: [facility] 05-16-2025 13:43-0400 Body weight 63.75 kg Cheli Grace MD Work Phone: [facility] 05-16-2025 13:43-0400 Diastolic blood pressure 77 mm[Hg] Cheli Grace MD Work Phone: [facility] 05-16-2025 13:43-0400 Heart rate 78 /min Cheli Grace MD Work Phone: [facility] 05-16-2025 13:43-0400 Respiratory rate 18 /min Cheli Grace MD Work Phone: [facility] 05-16-2025 13:43-0400 SaO2% (BldA) [Mass fraction] 97 % Cheli Grace MD Work Phone: 3(659)989-494908 [place] [address] 05-16-2025 13:43-0400 Systolic blood pressure 125 mm[Hg] Cheli Grace MD Work Phone: 9(178)094-345732 [place] [address] 04-18-2025 15:34-0400 Body height 177.8 cm Cheli Grace MD Work Phone: 4(439)282-416932 [place] [address] 04-18-2025 15:34-0400 Body mass index (BMI) [Ratio] 20 kg/m2 Cheli Grace MD Work Phone: 0(766)306-970732 [place] [address] 04-18-2025 15:34-0400 Body temperature 98.6 [degF] Cheli Grace MD Work Phone: 9(126)436-524132 [place] [address] 04-18-2025 15:34-0400 Body weight 63.24 kg Cheli Grace MD Work Phone: 9(290)351-774932 [place] [address] 04-18-2025 15:34-0400 Diastolic blood pressure 68 mm[Hg] Cheli Grace MD Work Phone: 5(014)410-765132 [place] [address] 04-18-2025 15:34-0400 Heart rate 78 /min Cheli Grace MD Work Phone: 4(376)461-699108 [place] [address] 04-18-2025 15:34-0400 Respiratory rate 18 /min Cheli Grace MD Work Phone: [facility] 04-18-2025 15:34-0400 SaO2% (BldA) [Mass fraction] 96 % Cheli Grace MD Work Phone: 6(706)861-536308 [place] [address] 04-18-2025 15:34-0400 Systolic blood pressure 113 mm[Hg] Cheli Grace MD Work Phone: [facility] 03-21-2025 15:09-0400 Body height 177.8 cm Cheli Grace MD Work Phone: [facility] 03-21-2025 15:09-0400 Body mass index (BMI) [Ratio] 20.8 kg/m2 Cheli Grace MD Work Phone: [facility] 03-21-2025 15:09-0400 Body temperature 97.6 [degF] Cheli Grace MD Work Phone: [facility] 03-21-2025 15:09-0400 Body weight 65.82 kg Cheli Grace MD Work Phone: [facility] 03-21-2025 15:09-0400 Diastolic blood pressure 74 mm[Hg] Cheli Grace MD Work Phone: [facility] 03-21-2025 15:09-0400 Heart rate 83 /min Cheli Grace MD Work Phone: [facility] 03-21-2025 15:09-0400 Respiratory rate 18 /min Cheli Grace MD Work Phone: [facility] 03-21-2025 15:09-0400 SaO2% (BldA) [Mass fraction] 98 % Cheli Grace MD Work Phone: [facility] 03-21-2025 15:09-0400 Systolic blood pressure 129 mm[Hg] Cheli Grace MD Work Phone: [facility] 02-21-2025 13:37-0400 Body mass index (BMI) [Ratio] 20.8 kg/m2 Cheli Grace MD Work Phone: [facility] 02-21-2025 13:37-0400 Body temperature 98.2 [degF] Cheli Grace MD Work Phone: 8(219)628-793208 [place] [address] 02-21-2025 13:37-0400 Body weight 65.79 kg Cheli Grace MD Work Phone: [facility] 02-21-2025 13:37-0400 Diastolic blood pressure 83 mm[Hg] Cheli Grace MD Work Phone: [facility] 02-21-2025 13:37-0400 Heart rate 75 /min Cheli Grace MD Work Phone: [facility] 02-21-2025 13:37-0400 Respiratory rate 18 /min Cheli Grace MD Work Phone: [facility] 02-21-2025 13:37-0400 SaO2% (BldA) [Mass fraction] 94 % Cheli Grace MD Work Phone: [facility] 02-21-2025 13:37-0400 Systolic blood pressure 141 mm[Hg] Cheli Grace MD Work Phone: [facility] 01-24-2025 13:22-0400 Body mass index (BMI) [Ratio] 19.8 kg/m2 Cheli Grace MD Work Phone: [facility] 01-24-2025 13:22-0400 Body temperature 98.2 [degF] Cheli Grace MD Work Phone: [facility] 01-24-2025 13:22-0400 Body weight 62.7 kg Cheli Grace MD Work Phone: [facility] 01-24-2025 13:22-0400 Diastolic blood pressure 77 mm[Hg] Cheli Grace MD Work Phone: [facility] 01-24-2025 13:22-0400 Heart rate 87 /min Cheli Grace MD Work Phone: [facility] 01-24-2025 13:22-0400 Respiratory rate 18 /min Cheli Grace MD Work Phone: [facility] 01-24-2025 13:22-0400 SaO2% (BldA) [Mass fraction] 99 % Cheli Grace MD Work Phone: [facility] 01-24-2025 13:22-0400 Systolic blood pressure 136 mm[Hg] Cheli Grace MD Work Phone: [facility] 12-28-2024 07:42-0500 Body mass index (BMI) [Ratio] 20.6 kg/m2 Cheli Grace MD Work Phone: [facility] 12-28-2024 07:42-0500 Body weight 65.31 kg Cheli Grace MD Work Phone: [facility] 12-28-2024 07:42-0500 Diastolic blood pressure 89 mm[Hg] Cheli Grace MD Work Phone: [facility] 12-28-2024 07:42-0500 Heart rate 78 /min Cheli Grace MD Work Phone: [facility] 12-28-2024 07:42-0500 Respiratory rate 18 /min Cheli Grace MD Work Phone: [facility] 12-28-2024 07:42-0500 Systolic blood pressure 129 mm[Hg] Cheli Grace MD Work Phone: [facility] 12-27-2024 11:11-0500 Body height 177.8 cm Cheli Grace MD Work Phone: [facility] 12-27-2024 11:11-0500 Body mass index (BMI) [Ratio] 20 kg/m2 Cheli Grace MD Work Phone: [facility] 12-27-2024 11:11-0500 Body temperature 97.4 [degF] Cheli Grace MD Work Phone: [facility] 12-27-2024 11:11-0500 Body weight 63.16 kg Cheli Grace MD Work Phone: [facility] 12-27-2024 11:11-0500 Diastolic blood pressure 81 mm[Hg] Cheli Grace MD Work Phone: [facility] 12-27-2024 11:11-0500 Heart rate 73 /min Cheli Grace MD Work Phone: [facility] 12-27-2024 11:11-0500 Respiratory rate 18 /min Cheli Grace MD Work Phone: [facility] 12-27-2024 11:11-0500 SaO2% (BldA) [Mass fraction] 98 % Cheli Grace MD Work Phone: [facility] 12-27-2024 11:11-0500 Systolic blood pressure 133 mm[Hg] Cheli Grace MD Work Phone: [facility] 12-13-2024 14:30-0500 Body temperature 96.4 [degF] Cheli Grace MD Work Phone: [facility] 12-13-2024 14:30-0500 Diastolic blood pressure 84 mm[Hg] Cheli Grace MD Work Phone: [facility] 12-13-2024 14:30-0500 Heart rate 85 /min Cheli Grace MD Work Phone: [facility] 12-13-2024 14:30-0500 Respiratory rate 16 /min Cheli Grace MD Work Phone: [facility] 12-13-2024 14:30-0500 SaO2% (BldA) [Mass fraction] 99 % Cheli Grace MD Work Phone: [facility] 12-13-2024 14:30-0500 Systolic blood pressure 136 mm[Hg] Cheli Grace MD Work Phone: [facility] 11-29-2024 15:05-0500 Body mass index (BMI) [Ratio] 21.7 kg/m2 Cheli Grace MD Work Phone: [facility] 11-29-2024 13:50-0500 Body mass index (BMI) [Ratio] 21.7 kg/m2 Cheli Grace MD Work Phone: [facility] 11-29-2024 13:50-0500 Body temperature 98 [degF] Cheli Grace MD Work Phone: [facility] 11-29-2024 13:50-0500 Body weight 68.74 kg Cheli Grace MD Work Phone: [facility] 11-29-2024 13:50-0500 Diastolic blood pressure 72 mm[Hg] Cheli Grace MD Work Phone: [facility] 11-29-2024 13:50-0500 Heart rate 83 /min Cheli Grace MD Work Phone: [facility] 11-29-2024 13:50-0500 Respiratory rate 18 /min Cheli Grace MD Work Phone: [facility] 11-29-2024 13:50-0500 SaO2% (BldA) [Mass fraction] 96 % Cheli Grace MD Work Phone: 8(504)393-156708 [place] [address] 11-29-2024 13:50-0500 Systolic blood pressure 144 mm[Hg] Cheli Grace MD Work Phone: [facility] 10-31-2024 11:46-0500 Body mass index (BMI) [Ratio] 21.2 kg/m2 Cheli Grace MD Work Phone: 9(018)257-806508 [place] [address] 10-31-2024 11:46-0500 Body temperature 98.4 [degF] Cheli Grace MD Work Phone: 2(189)389-239708 [place] [address] 10-31-2024 11:46-0500 Body weight 67.16 kg Cheli Grace MD Work Phone: [facility] 10-31-2024 11:46-0500 Diastolic blood pressure 81 mm[Hg] Cheli Grace MD Work Phone: [facility] 10-31-2024 11:46-0500 Heart rate 92 /min Cheli Grace MD Work Phone: [facility] 10-31-2024 11:46-0500 Respiratory rate 18 /min Cheli Grace MD Work Phone: [facility] 10-31-2024 11:46-0500 SaO2% (BldA) [Mass fraction] 96 % Cheli Grace MD Work Phone: [facility] 10-31-2024 11:46-0500 Systolic blood pressure 147 mm[Hg] Cheli Grace MD Work Phone: [facility] 09-26-2024 14:37-0500 Body mass index (BMI) [Ratio] 20.7 kg/m2 Cheli Grace MD Work Phone: [facility] 09-26-2024 14:37-0500 Body temperature 98.2 [degF] Cheli Grace MD Work Phone: [facility] 09-26-2024 14:37-0500 Body weight 65.45 kg Cheli Grace MD Work Phone: [facility] 09-26-2024 14:37-0500 Diastolic blood pressure 82 mm[Hg] Cheli Grace MD Work Phone: [facility] 09-26-2024 14:37-0500 Heart rate 86 /min Cheli Grace MD Work Phone: [facility] 09-26-2024 14:37-0500 Respiratory rate 18 /min Cheli Grace MD Work Phone: [facility] 09-26-2024 14:37-0500 SaO2% (BldA) [Mass fraction] 98 % Cheli Grace MD Work Phone: [facility] 09-26-2024 14:37-0500 Systolic blood pressure 148 mm[Hg] Cheli Grace MD Work Phone: [facility] 11-30-2023 15:09-0500 Body temperature 97.6 [degF] MD Cheli Grace Work Phone: [facility] 11-30-2023 15:09-0500 Diastolic blood pressure 66 mm[Hg] MD Cheli Grace Work Phone: [facility] 11-30-2023 15:09-0500 Heart rate 60 /min MD Cheli Grace Work Phone: [facility] 11-30-2023 15:09-0500 Respiratory rate 16 /min MD Cheli Grace Work Phone: [facility] 11-30-2023 15:09-0500 SaO2% (BldA) [Mass fraction] 95 % MD Cheli Grace Work Phone: [facility] 11-30-2023 15:09-0500 Systolic blood pressure 126 mm[Hg] MD Cheli Grace Work Phone: [facility] 11-30-2023 07:41-0500 Inhaled oxygen flow rate 2 L/min MD Cheli Grace Work Phone: [facility] 11-30-2023 06:00-0500 Body mass index (BMI) [Ratio] 20.5 kg/m2 MD Cheli Grace Work Phone: [facility] 11-30-2023 06:00-0500 Body weight 64.8 kg MD Cheli Grace Work Phone: [facility] 11-29-2023 14:21-0500 Body height 177.8 cm MD Cheli Grace Work Phone: [facility] 11-29-2023 14:21-0500 Body weight 67 kg MD Cheli Grace Work Phone: [facility] 11-29-2023 13:37-0500 Heart rate 64 /min MD Cheli Grace Work Phone: [facility] 11-29-2023 13:37-0500 Respiratory rate 18 /min MD Cheli Grace Work Phone: [facility] 11-29-2023 13:30-0500 Diastolic blood pressure 55 mm[Hg] MD Cheli Grace Work Phone: [facility] 11-29-2023 13:30-0500 Systolic blood pressure 119 mm[Hg] MD Cheli Grace Work Phone: [facility] 11-29-2023 12:45-0500 SaO2% (BldA) [Mass fraction] 97 % MD Cheli Grace Work Phone: [facility] 11-29-2023 09:57-0500 Inhaled oxygen flow rate 2 L/min MD Cheli Grace Work Phone: [facility] 11-29-2023 09:30-0500 Body temperature 97.9 [degF] MD Cheli Grace Work Phone: [facility] 11-29-2023 03:33-0500 Body mass index (BMI) [Ratio] 21.2 kg/m2 MD Cheli Grace Work Phone: [facility] 11-27-2023 16:03-0500 Heart rate 65 /min MD Cehli Grace Work Phone: [facility] 11-27-2023 16:03-0500 Inhaled oxygen flow rate 3 L/min MD Cheli Grace Work Phone: [facility] 11-27-2023 16:03-0500 Respiratory rate 33 /min MD Cheli Grace Work Phone: [facility] 11-27-2023 16:03-0500 SaO2% (BldA) [Mass fraction] 93 % MD Cheli Grace Work Phone: [facility] 11-27-2023 15:44-0500 Body temperature 97.8 [degF] MD Cheli Grace Work Phone: [facility] 11-27-2023 15:44-0500 Diastolic blood pressure 67 mm[Hg] MD Cheli Grace Work Phone: [facility] 11-27-2023 15:44-0500 Systolic blood pressure 131 mm[Hg] MD Cheli Grace Work Phone: [facility] 11-27-2023 12:59-0500 Body height 177.8 cm MD Cheli Grace Work Phone: [facility] 11-27-2023 12:59-0500 Body mass index (BMI) [Ratio] 22.4 kg/m2 MD Cheli Grace Work Phone: [facility] 11-27-2023 12:59-0500 Body weight 71.03 kg MD Cheli Grace Work Phone: [facility] 11-17-2023 15:00-0500 Diastolic blood pressure 76 mm[Hg] MD Cheli Grace Work Phone: [facility] 11-17-2023 15:00-0500 Heart rate 64 /min MD Cheli Grace Work Phone: [facility] 11-17-2023 15:00-0500 Respiratory rate 18 /min MD Cheli Grace Work Phone: [facility] 11-17-2023 15:00-0500 SaO2% (BldA) [Mass fraction] 99 % MD Cheli Grace Work Phone: [facility] 11-17-2023 15:00-0500 Systolic blood pressure 118 mm[Hg] MD Cheli Grace Work Phone: [facility] 11-17-2023 08:28-0500 Body height 177.8 cm MD Cheli Grace Work Phone: [facility] 11-17-2023 08:28-0500 Body temperature 97.1 [degF] MD Cheli Grace Work Phone: [facility] 10-19-2023 18:39-0500 Body temperature 98.9 [degF] Dr. Arnold Spencer Work Phone: [facility] 10-19-2023 18:39-0500 Diastolic blood pressure 44 mm[Hg] Dr. Arnold Spencer Work Phone: [facility] 10-19-2023 18:39-0500 Heart rate 88 /min Dr. Arnold Spencer Work Phone: [facility] 10-19-2023 18:39-0500 Respiratory rate 18 /min Dr. Arnold Spencer Work Phone: 9(762)102-897637 [place] [address] 10-19-2023 18:39-0500 SaO2% (BldA) [Mass fraction] 98 % Dr. Arnold Spencer Work Phone: 9(842)124-302037 [place] [address] 10-19-2023 18:39-0500 Systolic blood pressure 111 mm[Hg] Dr. Arnold Spencer Work Phone: 3(881)073-527642 [place] [address] 10-19-2023 06:00-0500 Body mass index (BMI) [Ratio] 22.9 kg/m2 Dr. Arnold Spencer Work Phone: 6(323)152-769942 [place] [address] 10-19-2023 06:00-0500 Body weight 68.[address] Arnold Spencer Work Phone: 2(440)797-247742 [place] [address] 10-18-2023 10:03-0500 Body height [address] Arnold Spencer Work Phone: 3(883)784-835642 [place] [address] 09-22-2023 14:43-0500 Body temperature 98.6 [degF] Dr. Arnold Spencer Work Phone: 8(076)005-847942 [place] [address] 09-22-2023 14:43-0500 Diastolic blood pressure 66 mm[Hg] Dr. Arnold Spencer Work Phone: 0(139)724-748142 [place] [address] 09-22-2023 14:43-0500 Heart rate 68 /min Dr. Arnold Spencer Work Phone: 7(198)988-411042 [place] [address] 09-22-2023 14:43-0500 Respiratory rate 18 /min Dr. Arnold Spencer Work Phone: 7(961)008-782442 [place] [address] 09-22-2023 14:43-0500 SaO2% (BldA) [Mass fraction] 93 % Dr. Arnold Spencer Work Phone: 9(672)102-747142 [place] [address] 09-22-2023 14:43-0500 Systolic blood pressure 106 mm[Hg] Dr. Arnold Spencer Work Phone: 3(456)837-370342 [place] [address] 09-22-2023 10:25-0500 Inhaled oxygen flow rate 2 L/min Dr. Arnold Spencer Work Phone: 9(347)390-005237 [place] [address] 09-19-2023 07:05-0500 Body height 177.[address] Arnodl Spencer Work Phone: 2(250)132-646842 [place] [address] 09-19-2023 07:05-0500 Body mass index (BMI) [Ratio] 21.8 kg/m2 Dr. Arnold Spencer Work Phone: 6(811)349-371142 [place] [address] 09-19-2023 07:05-0500 Body weight [address] Arnold Spencer Work Phone: 7(673)391-869142 [place] [address] 06-30-2023 14:53-0400 Body height 177.[address] Arnold Spencer Work Phone: 0(126)886-691542 [place] [address] 06-30-2023 14:53-0400 Body mass index (BMI) [Ratio] 21.1 kg/m2 Dr. Arnold Spencer Work Phone: 4(581)894-800342 [place] [address] 06-30-2023 14:53-0400 Body weight 66.[address] Arnold Spencer Work Phone: 3(798)168-100042 [place] [address] 06-30-2023 14:53-0400 Diastolic blood pressure 70 mm[Hg] Dr. Arnold Spencer Work Phone: 4(727)190-962342 [place] [address] 06-30-2023 14:53-0400 Heart rate 76 /min Dr. Arnold Spencer Work Phone: 4(534)953-821442 [place] [address] 06-30-2023 14:53-0400 Respiratory rate 18 /min Dr. Arnold Spencer Work Phone: 6(893)147-309042 [place] [address] 06-30-2023 14:53-0400 SaO2% (BldA) [Mass fraction] 99 % Dr. Arnold Spencer Work Phone: 9(607)721-550642 [place] [address] 06-30-2023 14:53-0400 Systolic blood pressure 121 mm[Hg] Dr. Arnold Spencer Work Phone: 6(910)711-749042 [place] [address] 02-02-2023 15:57-0400 Body temperature 97.59 [degF] Arnold Spencer MD Work Phone: [facility] 02-02-2023 15:57-0400 Body weight 65.77 kg Arnold Spencer MD Work Phone: [facility] 02-02-2023 15:57-0400 Diastolic blood pressure 68 mm[Hg] Arnold Spencer MD Work Phone: [facility] 02-02-2023 15:57-0400 Heart rate 93 /min Arnold Spencer MD Work Phone: [facility] 02-02-2023 15:57-0400 Respiratory rate 18 /min Arnold Spencer MD Work Phone: [facility] 02-02-2023 15:57-0400 SaO2% (BldA) [Mass fraction] 98 % Arnold Spencer MD Work Phone: [facility] 02-02-2023 15:57-0400 Systolic blood pressure 122 mm[Hg] Arnold Spencer MD Work Phone: [facility] 12-11-2022 11:22-0500 Body height 177.[address] Arnold Spencer Work Phone: [facility] 12-11-2022 11:22-0500 Body mass index (BMI) [Ratio] 19.8 kg/m2 Dr. Arnold Spencer Work Phone: [facility] 12-11-2022 11:22-0500 Body weight 62.[address] Arnold Spencer Work Phone: [facility] 12-11-2022 11:22-0500 Diastolic blood pressure 78 mm[Hg] Dr. Arnold Spencer Work Phone: [facility] 12-11-2022 11:22-0500 Heart rate 25 /min Dr. Arnold Spencer Work Phone: [facility] 12-11-2022 11:22-0500 SaO2% (BldA) [Mass fraction] 93 % Dr. Arnold Spencer Work Phone: [facility] 12-11-2022 11:22-0500 Systolic blood pressure 122 mm[Hg] Dr. Arnold Spencer Work Phone: [facility] 11-03-2022 14:40-0500 Body height 177.8 cm Cat Art MD Work Phone: [facility] 11-03-2022 14:40-0500 Body weight 68.95 kg Cat Art MD Work Phone: [facility] 11-03-2022 14:40-0500 Diastolic blood pressure 67 mm[Hg] Cat Art MD Work Phone: [facility] 11-03-2022 14:40-0500 Heart rate 63 /min Cat Art MD Work Phone: [facility] 11-03-2022 14:40-0500 Systolic blood pressure 121 mm[Hg] Cat Art MD Work Phone: [facility] 10-06-2022 15:15-0500 Body height 177.[address] Arnold Spencer Work Phone: [facility] 10-06-2022 15:15-0500 Body mass index (BMI) [Ratio] 21.8 kg/m2 Dr. Arnold Spencer Work Phone: [facility] 10-06-2022 15:15-0500 Body weight 68.[address] Arnold Spencer Work Phone: [facility] 10-06-2022 15:15-0500 Diastolic blood pressure 66 mm[Hg] Dr. Arnold Spencer Work Phone: [facility] 10-06-2022 15:15-0500 Heart rate 100 /min Dr. Arnold Spencer Work Phone: [facility] 10-06-2022 15:15-0500 SaO2% (BldA) [Mass fraction] 93 % Dr. Arnold Spencer Work Phone: 5(470)426-800137 [place] [address] 10-06-2022 15:15-0500 Systolic blood pressure 111 mm[Hg] Dr. Arnold Spencer Work Phone: 7(282)387-526842 [place] [address] 09-24-2022 15:05-0500 Body mass index (BMI) [Ratio] 21.5 kg/m2 Dr. Arnold Spencer Work Phone: 5(043)705-433142 [place] [address] 09-24-2022 15:05-0500 Body weight 68.[address] Arnold Spencer Work Phone: 1(392)016-068842 [place] [address] 09-24-2022 15:05-0500 Diastolic blood pressure 52 mm[Hg] Dr. Arnold Spencer Work Phone: 4(372)375-492342 [place] [address] 09-24-2022 15:05-0500 Heart rate 84 /min Dr. Arnold Spencer Work Phone: 9(873)861-121242 [place] [address] 09-24-2022 15:05-0500 Respiratory rate 16 /min Dr. Arnold Spencer Work Phone: 3(252)260-524842 [place] [address] 09-24-2022 15:05-0500 Systolic blood pressure 118 mm[Hg] Dr. Arnold Spencer Work Phone: 5(973)308-234642 [place] [address] 09-05-2022 06:55-0500 Diastolic blood pressure 72 mm[Hg] Dr. Arnold Spencer Work Phone: 4(808)739-654842 [place] [address] 09-05-2022 06:55-0500 Heart rate 106 /min Dr. Arnold Spencer Work Phone: 1(717)314-664742 [place] [address] 09-05-2022 06:55-0500 Respiratory rate 25 /min Dr. Arnold Spencer Work Phone: 0(003)473-566542 [place] [address] 09-05-2022 06:55-0500 SaO2% (BldA) [Mass fraction] 95 % Dr. Arnold Spencer Work Phone: 3(272)266-935142 [place] [address] 09-05-2022 06:55-0500 Systolic blood pressure 127 mm[Hg] Dr. Arnold Spencer Work Phone: 9(284)462-892237 [place] [address] 09-05-2022 06:12-0500 Inhaled oxygen flow rate 3 L/min Dr. Arnold Spencer Work Phone: 0(712)208-966242 [place] [address] 09-05-2022 03:21-0500 Body temperature 97.9 [degF] Dr. Arnold Spencer Work Phone: 6(203)445-750937 [place] [address] 09-05-2022 03:16-0500 Body height 177.[address] Arnold Spencer Work Phone: 2(606)837-311242 [place] [address] Work Phone: 09-05-2022 03:16-0500 Body mass index (BMI) [Ratio] 22.4 kg/m2 Dr. Arnold Spencer Work Phone: 9(104)901-289642 [place] [address] 09-05-2022 03:16-0500 Body weight 71.[address] Arnold Spencer Work Phone: 2(737)384-355542 [place] [address] 09-03-2022 07:14-0500 Body mass index (BMI) [Ratio] 22.2 kg/m2 Dr. Arnold Spencer Work Phone: 5(540)030-937742 [place] [address] 09-03-2022 07:14-0500 Body temperature 98 [degF] Dr. Arnold Spencer Work Phone: 1(660)649-952942 [place] [address] 09-03-2022 07:14-0500 Body weight 70.[address] Arnold Spencer Work Phone: 7(832)688-338442 [place] [address] 09-03-2022 07:14-0500 Diastolic blood pressure 77 mm[Hg] Dr. Arnold Spencer Work Phone: 6(850)599-364142 [place] [address] 09-03-2022 07:14-0500 Heart rate 109 /min Dr. Arnold Spencer Work Phone: 8(669)222-818442 [place] [address] 09-03-2022 07:14-0500 Respiratory rate 16 /min Dr. Arnold Spencer Work Phone: 2(344)955-607037 [place] [address] 09-03-2022 07:14-0500 SaO2% (BldA) [Mass fraction] 98 % Dr. Arnold Spencer Work Phone: [facility] 09-03-2022 07:14-0500 Systolic blood pressure 123 mm[Hg] Dr. Arnold Spencer Work Phone: [facility] 08-04-2022 10:34-0400 Body height 177.[address] Arnold Spencer Work Phone: [facility] Work Phone: 08-04-2022 10:34-0400 Body mass index (BMI) [Ratio] 21.2 kg/m2 Dr. Arnold Spencer Work Phone: 2(313)902-747611 [place] [address] 08-04-2022 10:34-0400 Body weight 67.[address] Arnold Spencer Work Phone: 2(590)782-385337 [place] [address] 08-04-2022 10:34-0400 Diastolic blood pressure 68 mm[Hg] Dr. Arnold Spencer Work Phone: 7(139)201-084537 [place] [address] 08-04-2022 10:34-0400 Heart rate 92 /min Dr. Arnold Spencer Work Phone: 5(665)606-228037 [place] [address] 08-04-2022 10:34-0400 Respiratory rate 18 /min Dr. Arnold Spencer Work Phone: 2(326)708-323137 [place] [address] 08-04-2022 10:34-0400 SaO2% (BldA) [Mass fraction] 98 % Dr. Arnold Spencer Work Phone: [facility] 08-04-2022 10:34-0400 Systolic blood pressure 117 mm[Hg] Dr. Arnold Spencer Work Phone: [facility] 07-31-2022 14:41-0400 Body height 177.8 cm Cat Art MD Work Phone: [facility] 07-31-2022 14:41-0400 Body weight 64.86 kg Cat Art MD Work Phone: [facility] 07-31-2022 14:41-0400 Diastolic blood pressure 72 mm[Hg] Cat Art MD Work Phone: [facility] 07-31-2022 14:41-0400 Heart rate 94 /min Cat Art MD Work Phone: [facility] 07-31-2022 14:41-0400 Systolic blood pressure 127 mm[Hg] Cat Art MD Work Phone: [facility] 07-28-2022 13:31-0400 Body height 177.8 cm Partha Santana PA-C Work Phone: [facility] 07-28-2022 13:31-0400 Body temperature 97 [degF] Partha Santana PA-C Work Phone: [facility] 07-28-2022 13:31-0400 Body weight 65.32 kg Partha Santana PA-C Work Phone: [facility] 07-28-2022 13:31-0400 Diastolic blood pressure 70 mm[Hg] Partha Santana PA-C Work Phone: [facility] 07-28-2022 13:31-0400 Heart rate 108 /min Partha Santana PA-C Work Phone: [facility] 07-28-2022 13:31-0400 Respiratory rate 14 /min Partha Santana PA-C Work Phone: [facility] 07-28-2022 13:31-0400 SaO2% (BldA) [Mass fraction] 96 % Partha Santana PA-C Work Phone: [facility] 07-28-2022 13:31-0400 Systolic blood pressure 110 mm[Hg] Partha Santana PA-C Work Phone: [facility] 07-21-2022 14:42-0400 Body weight 65.32 kg 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 APRN.CNS Work Phone: [facility] 07-21-2022 14:42-0400 Diastolic blood pressure 68 mm[Hg] 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 SOFTWARE QUALITY TESTER.FILM DEVELOPER Work Phone: [facility] 07-21-2022 14:42-0400 Heart rate 60 /min 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 SOFTWARE QUALITY TESTER.FILM DEVELOPER Work Phone: [facility] 07-21-2022 14:42-0400 Respiratory rate 16 /min 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 SOFTWARE QUALITY TESTER.FILM DEVELOPER Work Phone: [facility] 07-21-2022 14:42-0400 SaO2% (BldA) [Mass fraction] 99 % [facility].FILM DEVELOPER Work Phone: [facility] 07-21-2022 14:42-0400 Systolic blood pressure 120 mm[Hg] 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 SOFTWARE QUALITY TESTER.FILM DEVELOPER Work Phone: [facility] 07-15-2022 14:40-0400 Body temperature 98.2 [degF] Dr. Arnold Spencer Work Phone: [facility] Work Phone: 07-15-2022 14:40-0400 Diastolic blood pressure 51 mm[Hg] Dr. Arnold Spencer Work Phone: [facility] Work Phone: 07-15-2022 14:40-0400 Heart rate 65 /min Dr. Arnold Spencer Work Phone: [facility] Work Phone: 07-15-2022 14:40-0400 Respiratory rate 18 /min Dr. Arnold Spencer Work Phone: [facility] Work Phone: 07-15-2022 14:40-0400 SaO2% (BldA) [Mass fraction] 94 % Dr. Arnold Spencer Work Phone: [facility] Work Phone: 07-15-2022 14:40-0400 Systolic blood pressure 109 mm[Hg] Dr. Arnold Spencer Work Phone: [facility] Work Phone: 07-15-2022 09:00-0400 Inhaled oxygen flow rate 2 L/min Dr. Arnold Spencer Work Phone: [facility] Work Phone: 07-15-2022 06:00-0400 Body weight 67.[address] Arnold Spencer Work Phone: [facility] Work Phone: 07-13-2022 15:43-0400 Body height 177.[address] Arnold Spencer Work Phone: [facility] Work Phone: 07-13-2022 13:47-0400 Body mass index (BMI) [Ratio] 22.4 kg/m2 Dr. Arnold Spencer Work Phone: [facility] Work Phone: 07-13-2022 13:07-0400 Body temperature 98 [degF] Dr. Arnold Spencer Work Phone: [facility] Work Phone: 07-13-2022 13:07-0400 Diastolic blood pressure 86 mm[Hg] Dr. Arnold Spencer Work Phone: [facility] Work Phone: 07-13-2022 13:07-0400 Heart rate 69 /min Dr. Arnold Spencer Work Phone: [facility] Work Phone: 07-13-2022 13:07-0400 Respiratory rate 20 /min Dr. Arnold Spencer Work Phone: [facility] Work Phone: 07-13-2022 13:07-0400 SaO2% (BldA) [Mass fraction] 97 % Dr. Arnold Spencer Work Phone: [facility] Work Phone: 07-13-2022 13:07-0400 Systolic blood pressure 147 mm[Hg] Dr. Arnold Spencer Work Phone: [facility] Work Phone: 07-13-2022 08:24-0400 Body height 177.[address] Arnold Spencer Work Phone: [facility] Work Phone: 07-13-2022 08:24-0400 Body mass index (BMI) [Ratio] 21.5 kg/m2 Dr. Arnold Spencer Work Phone: [facility] Work Phone: 07-13-2022 08:24-0400 Body weight 68.[address] Arnold Spencer Work Phone: [facility] Work Phone: 07-10-2022 15:50-0400 Body height 172.7 cm Cat Art MD Work Phone: [facility] 07-10-2022 15:50-0400 Body weight 70.31 kg Cat Art MD Work Phone: [facility] 07-10-2022 15:50-0400 Diastolic blood pressure 81 mm[Hg] Cat Art MD Work Phone: [facility] 07-10-2022 15:50-0400 Heart rate 63 /min Cat Art MD Work Phone: [facility] 07-10-2022 15:50-0400 Systolic blood pressure 145 mm[Hg] Cat Art MD Work Phone: [facility] 06-23-2022 14:33-0400 Body weight 68.49 kg 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 SOFTWARE QUALITY TESTER.FILM DEVELOPER Work Phone: [facility] 06-23-2022 14:33-0400 Diastolic blood pressure 60 mm[Hg] 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 SOFTWARE QUALITY TESTER.FILM DEVELOPER Work Phone: [facility] 06-23-2022 14:33-0400 Heart rate 80 /min 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 SOFTWARE QUALITY TESTER.FILM DEVELOPER Work Phone: [facility] 06-23-2022 14:33-0400 Respiratory rate 16 /min 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 SOFTWARE QUALITY TESTER.FILM DEVELOPER Work Phone: [facility] 06-23-2022 14:33-0400 Systolic blood pressure 110 mm[Hg] 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 SOFTWARE QUALITY TESTER.FILM DEVELOPER Work Phone: [facility] 06-05-2022 14:02-0400 Body weight 72.12 kg Arnold Spencer MD Work Phone: [facility] 06-05-2022 14:02-0400 Diastolic blood pressure 80 mm[Hg] Arnold Spencer MD Work Phone: [facility] 06-05-2022 14:02-0400 Heart rate 74 /min Arnold Spencer MD Work Phone: [facility] 06-05-2022 14:02-0400 SaO2% (BldA) [Mass fraction] 98 % Arnold Spencer MD Work Phone: [facility] 06-05-2022 14:02-0400 Systolic blood pressure 140 mm[Hg] Arnold Spencer MD Work Phone: [facility] 05-26-2022 10:07-0400 Body temperature 97.9 [degF] 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 SOFTWARE QUALITY TESTER.FILM DEVELOPER Work Phone: [facility] 05-26-2022 10:07-0400 Body weight 70.76 kg 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 SOFTWARE QUALITY TESTER.FILM DEVELOPER Work Phone: [facility] 05-26-2022 10:07-0400 Diastolic blood pressure 74 mm[Hg] 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 SOFTWARE QUALITY TESTER.FILM DEVELOPER Work Phone: [facility] 05-26-2022 10:07-0400 Heart rate 70 /min 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 SOFTWARE QUALITY TESTER.FILM DEVELOPER Work Phone: [facility] 05-26-2022 10:07-0400 Respiratory rate 16 /min 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 SOFTWARE QUALITY TESTER.FILM DEVELOPER Work Phone: [facility] 05-26-2022 10:07-0400 SaO2% (BldA) [Mass fraction] 97 % 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 KEEGAN.FILM DEVELOPER Work Phone: [facility] 05-26-2022 10:07-0400 Systolic blood pressure 134 mm[Hg] Della De Guzmanruel LESLIEFILM DEVELOPER Work Phone: [facility] 05-13-2022 08:55-0400 Body temperature 98 [degF] Dr. Arnold Spencer Work Phone: [facility] Work Phone: 05-13-2022 08:55-0400 Diastolic blood pressure 75 mm[Hg] Dr. Arnold Spencer Work Phone: [facility] Work Phone: 05-13-2022 08:55-0400 Heart rate 85 /min Dr. Arnold Spencer Work Phone: [facility] Work Phone: 05-13-2022 08:55-0400 Respiratory rate 16 /min Dr. Arnold Spencer Work Phone: [facility] Work Phone: 05-13-2022 08:55-0400 SaO2% (BldA) [Mass fraction] 96 % Dr. Arnold Spencer Work Phone: [facility] Work Phone: 05-13-2022 08:55-0400 Systolic blood pressure 119 mm[Hg] Dr. Arnold Spencer Work Phone: [facility] Work Phone: 05-11-2022 11:50-0400 Body height 180.[address] Arnold Spencer Work Phone: [facility] Work Phone: 05-11-2022 11:50-0400 Body weight 66.[address] Arnold Spencer Work Phone: [facility] Work Phone: 05-08-2022 08:00-0400 Inhaled oxygen flow rate 97 L/min Dr. Arnold Spencer Work Phone: [facility] Work Phone: 05-07-2022 19:13-0400 Body mass index (BMI) [Ratio] 20.5 kg/m2 Dr. Arnold Spencer Work Phone: [facility] Work Phone: 05-07-2022 18:51-0400 Body temperature 98.9 [degF] Dr. Arnold Spencer Work Phone: [facility] Work Phone: 05-07-2022 18:51-0400 Diastolic blood pressure 78 mm[Hg] Dr. Arnold Spencer Work Phone: [facility] Work Phone: 05-07-2022 18:51-0400 Heart rate 100 /min Dr. Arnold Spencer Work Phone: [facility] Work Phone: 05-07-2022 18:51-0400 Respiratory rate 14 /min Dr. Arnold Spencer Work Phone: [facility] Work Phone: 05-07-2022 18:51-0400 SaO2% (BldA) [Mass fraction] 98 % Dr. Arnold Spencer Work Phone: [facility] Work Phone: 05-07-2022 18:51-0400 Systolic blood pressure 130 mm[Hg] Dr. Arnold Spencer Work Phone: [facility] Work Phone: 05-07-2022 17:00-0400 Body height 180.[address] Arnold Spencer Work Phone: [facility] Work Phone: 05-07-2022 17:00-0400 Body mass index (BMI) [Ratio] 20.9 kg/m2 Dr. Arnold Spencer Work Phone: [facility] Work Phone: 05-07-2022 17:00-0400 Body weight 68.[address] Arnold Spencer Work Phone: [facility] Work Phone: 03-10-2022 12:58-0400 Body weight 68.95 kg 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 SOFTWARE QUALITY TESTER.FILM DEVELOPER Work Phone: [facility] 03-10-2022 12:58-0400 Diastolic blood pressure 82 mm[Hg] 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 SOFTWARE QUALITY TESTER.FILM DEVELOPER Work Phone: [facility] 03-10-2022 12:58-0400 Heart rate 84 /min 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 SOFTWARE QUALITY TESTER.FILM DEVELOPER Work Phone: [facility] 03-10-2022 12:58-0400 Respiratory rate 16 /min 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 SOFTWARE QUALITY TESTER.FILM DEVELOPER Work Phone: [facility] 03-10-2022 12:58-0400 Systolic blood pressure 130 mm[Hg] 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 SOFTWARE QUALITY TESTER.FILM DEVELOPER Work Phone: [facility] 03-06-2022 09:39-0400 Body mass index (BMI) [Ratio] 21.5 kg/m2 Dr. Arnold Spencer Work Phone: [facility] Work Phone: 03-06-2022 09:39-0400 Body weight 68.[address] Arnold Spencer Work Phone: [facility] Work Phone: 03-06-2022 09:39-0400 Diastolic blood pressure 73 mm[Hg] Dr. Arnold Spencer Work Phone: [facility] Work Phone: 03-06-2022 09:39-0400 Heart rate 86 /min Dr. Arnold Spencer Work Phone: [facility] Work Phone: 03-06-2022 09:39-0400 Respiratory rate 18 /min Dr. Arnold Spencer Work Phone: [facility] Work Phone: 03-06-2022 09:39-0400 SaO2% (BldA) [Mass fraction] 97 % Dr. Arnold Spencer Work Phone: [facility] Work Phone: 03-06-2022 09:39-0400 Systolic blood pressure 113 mm[Hg] Dr. Arnold Spencer Work Phone: [facility] Work Phone: 03-06-2022 09:39-0400 Body height 177.[address] Arnold Spencer Work Phone: [facility] Work Phone: 03-06-2022 09:39-0400 Body mass index (BMI) [Ratio] 21.5 kg/m2 Dr. Arnold Spencer Work Phone: [facility] Work Phone: 03-06-2022 09:39-0400 Body weight 68.[address] Arnold Spencer Work Phone: [facility] Work Phone: 03-06-2022 09:39-0400 Diastolic blood pressure 73 mm[Hg] Dr. Arnold Spencer Work Phone: [facility] Work Phone: 03-06-2022 09:39-0400 Heart rate 86 /min Dr. Arnold Spencer Work Phone: [facility] Work Phone: 03-06-2022 09:39-0400 Respiratory rate 18 /min Dr. Arnold Spencer Work Phone: [facility] Work Phone: 03-06-2022 09:39-0400 SaO2% (BldA) [Mass fraction] 97 % Dr. Arnold Spencer Work Phone: [facility] Work Phone: 03-06-2022 09:39-0400 Systolic blood pressure 113 mm[Hg] Dr. Arnold Spencer Work Phone: [facility] Work Phone: 01-05-2022 19:27-0400 Body temperature 98.1 [degF] Dr. Arnold Spencer Work Phone: [facility] Work Phone: 01-05-2022 19:27-0400 Heart rate 66 /min Dr. Arnold Spencer Work Phone: [facility] Work Phone: 01-05-2022 19:27-0400 Respiratory rate 17 /min Dr. Arnold Spencer Work Phone: [facility] Work Phone: 01-05-2022 19:27-0400 SaO2% (BldA) [Mass fraction] 97 % Dr. Arnold Spencer Work Phone: [facility] Work Phone: 01-05-2022 18:32-0400 Diastolic blood pressure 79 mm[Hg] Dr. Arnold Spencer Work Phone: [facility] Work Phone: 01-05-2022 18:32-0400 Systolic blood pressure 156 mm[Hg] Dr. Arnold Spencer Work Phone: [facility] Work Phone: 01-05-2022 15:41-0400 Body mass index (BMI) [Ratio] 22.3 kg/m2 Dr. Arnold Spencer Work Phone: [facility] Work Phone: 01-05-2022 15:41-0400 Body weight 70.[address] Arnold Spencer Work Phone: [facility] Work Phone: Encounters Encounter Date Encounter Type Care Provider Facility Start: 07-23-2025 ambulatory Cheli Grace Facility:[facility] Start: 07-02-2025 End: 07-02-2025 ambulatory Cheli Grace MD Work Phone: [facility] Start: 07-02-2025 End: 07-02-2025 Patient encounter procedure Haile Hess Veronica PHARMACEUTICAL SCIENTIST- -[facility] Work Phone: Start: 06-13-[address] Felipe Trivedi MD -[facility] Start: 06-13-2025 End: 06-13-2025 Patient encounter procedure Yolanda Bansal PHARMACEUTICAL SCIENTIST- -[facility] Work Phone: Start: 06-13-2025 End: 06-13-2025 ambulatory Cheli Grace MD Work Phone: [facility] Start: 05-16-[address] Felipe Trivedi MD -[facility] Start: 05-16-2025 End: 05-16-[address] Felipe Trivedi MD -[facility] Work Phone: Start: 05-16-2025 End: 05-16-2025 ambulatory Cheli Grace MD Work Phone: [facility] Start: 04-18-[address] Felipe Trivedi MD -[facility] Start: 04-18-2025 End: 04-18-[address] Felipe Trivedi MD -[facility] Work Phone: Start: 04-18-2025 End: 04-18-2025 ambulatory Cheli Grace MD Work Phone: [facility] Work Phone: Start: 04-11-2025 End: 04-11-2025 ambulatory Cheli Grace MD Work Phone: [facility] Start: 04-11-2025 End: 04-11-[address] Destin Harvey MD -[facility] Work Phone: Start: 03-21-2025 End: 03-21-[address] Felipe Trivedi MD -[facility] Work Phone: Start: 03-21-2025 End: 03-21-2025 ambulatory Cheli Grace MD Work Phone: [facility] Work Phone: Start: 03-21-[address] Felipe Trivedi MD -[facility] Start: 02-21-2025 End: 02-21-[address] Felipe Trivedi MD -[facility] Work Phone: Start: 02-21-2025 End: 02-21-2025 ambulatory Chalon Lesly Facility:[facility] Start: 01-24-2025 End: 01-24-[address] Felipe Trivedi MD -[facility] Work Phone: Start: 01-24-2025 End: 01-24-2025 ambulatory Chalon Lesly Facility:[facility] Start: 01-15-2025 End: 01-15-2025 ambulatory Cheli Grace MD Work Phone: [facility] Work Phone: Start: 01-15-2025 End: 01-15-[address] Stefany Norwood MD -Laboratory Work Phone: Start: 01-15-2025 End: 01-15-2025 ambulatory Stefany Norwood Facility:[facility] Start: 01-11-2025 ambulatory Ashlee RODRIGUEZ Facility:[facility] Start: 01-11-2025 Non-patient / Non-visit Dr. Pearl MENSAH -[facility] Start: 01-11-2025 End: 01-11-2025 ambulatory Chalon Lesly Facility:[facility] Start: 01-11-2025 End: 01-11-[address] Destin Harvey MD -[facility] Work Phone: Start: 01-11-2025 End: 01-11-2025 ambulatory Cheli Grace MD Work Phone: [facility] Work Phone: Start: 01-11-2025 End: 01-11-2025 Patient encounter procedure Ashlee RODRIGUEZ -Cardiovascular Services Work Phone: Start: 01-11-2025 End: 01-11-2025 ambulatory Chalon Lesly Facility:[facility] Start: 01-10-[address] Felipe Trivedi MD -[facility] Start: 01-09-2025 ambulatory Chalon Lesly Facility:[facility] Start: 12-28-2024 End: 12-28-2024 Patient encounter procedure Ashlee RODRIGUEZ -[facility] Work Phone: Start: 12-28-2024 End: 12-28-2024 ambulatory Chalon Lesly Facility[facility] Start: 12-27-2024 End: 12-27-2024 Patient encounter procedure Yolanda Bansal NP- -[facility] Work Phone: Start: 12-27-2024 End: 12-27-2024 ambulatory Chalon Lesly Facility[facility] Start: 11-29-2024 End: 11-29-2024 Patient encounter procedure Yolanda Bansal NP- -[facility] Work Phone: Start: 11-29-2024 End: 11-29-2024 ambulatory Chalon Lesly [facility] Start: 10-31-2024 End: 10-31-[address] Felipe Triveid MD -[facility] Work Phone: Start: 10-31-2024 End: 10-31-2024 ambulatory Chalon Lesly Facility[facility] Start: 10-11-2024 End: 10-11-2024 ambulatory Chalon Lesly Facility:[facility] Start: 10-11-2024 End: 10-11-[address] Destin Harvey MD -[facility] Work Phone: Start: 09-26-2024 End: 09-26-[address] Felipe Trivedi MD -[facility] Work Phone: Start: 09-26-2024 End: 09-26-2024 ambulatory Chalon Lesly Facility[facility] Start: 08-31-2024 End: 08-31-2024 ambulatory Chalon Lesly Facility:[facility] Start: 08-03-2024 End: 08-03-2024 ambulatory Chalon Lesly Facility:[facility] Start: 07-26-2024 End: 07-26-2024 ambulatory Chalon Lesly Facility[facility] Start: 07-26-2024 End: 07-26-2024 ambulatory Stefany Norwood Facility:[facility] Start: 07-19-2024 End: 07-19-2024 ambulatory Chalon Lesly Facility:[facility] Start: 07-17-2024 ambulatory Chalon Lesly [facility] Start: 07-15-2024 ambulatory Stephanie L White Facility :[facility] Start: 07-15-2024 End: 07-17-2024 Evaluation and management of inpatient Stephanie L White Facility:[facility] Start: 07-12-2024 End: 07-13-2024 ambulatory Chalon Lesly Facility:[facility] Start: 07-05-2024 End: 07-05-2024 ambulatory Chalon Lesly Facility:[facility] Start: 02-15-2024 End: 02-15-2024 ambulatory MD Cheli Grace Work Phone: [facility] Work Phone: Start: 02-15-2024 End: 02-15-2024 Patient encounter procedure MD Cheli Grace Work Phone: [facility]-Laboratory Work Phone: Start: 01-27-2024 End: 01-27-2024 Patient encounter procedure MD Cheli Grace Work Phone: [facility] Work Phone: Start: 01-12-2024 End: 01-12-2024 ambulatory MD Cheli Grace Work Phone: [facility] Work Phone: Start: 01-12-2024 End: 01-12-2024 Patient encounter procedure MD Cheli Grace Work Phone: [facility] Work Phone: Start: 01-12-2024 End: 01-12-2024 MD Cheli Grace Work Phone: [facility] Work Phone: Start: 12-20-2023 End: 12-20-2023 ambulatory MD Cheli Grace Work Phone: [facility] Work Phone: Start: 12-20-2023 End: 12-20-2023 Patient encounter procedure MD Cheli Grace Work Phone: [facility] Work Phone: Start: 12-20-2023 End: 12-20-2023 MD Cheli Grace Work Phone: [facility] Work Phone: Start: 12-06-2023 End: 12-06-2023 ambulatory MD Cheli Grace Work Phone: [facility] Work Phone: Start: 12-06-2023 End: 12-06-2023 Patient encounter procedure MD Cheli Grace Work Phone: [facility] Work Phone: Start: 12-06-2023 End: 12-06-2023 MD Cheli Grace Work Phone: [facility] Work Phone: Start: 11-30-2023 Non-patient / Non-visit MD Beatriz Grace Work Phone: [facility] Start: 11-30-2023 MD Cheli Grace Work Phone: [facility] Start: 11-30-2023 Non-patient / Non-visit MD Beatriz Grace Work Phone: [facility] Work Phone: Start: 11-30-2023 MD Cheli Grace Work Phone: [facility] Work Phone: Start: 11-29-2023 Non-patient / Non-visit MD Beatriz Grace Work Phone: [facility] Work Phone: Start: 11-29-2023 MD Cheli Grace Work Phone: [facility] Work Phone: Start: 11-29-2023 Non-patient / Non-visit MD Beatriz Grace Work Phone: [facility] Start: 11-29-2023 MD Cheli Grace Work Phone: [facility] Start: 11-28-2023 Non-patient / Non-visit MD Beatriz Grace Work Phone: [facility] Work Phone: Start: 11-28-2023 MD Cheli Grace Work Phone: [facility] Work Phone: Start: 11-27-2023 Non-patient / Non-visit MD Beatriz Grace Work Phone: [facility] Work Phone: Start: 11-27-2023 End: 11-30-2023 Evaluation and management of inpatient MD Cheli Grace Work Phone: [facility]Progressive Care Unit Work Phone: Start: 11-27-2023 End: 11-30-2023 MD [facility] Start: 11-24-2023 End: 11-24-2023 ambulatory MD Cheli Grace Work Phone: [facility] Work Phone: Start: 11-24-2023 End: 11-24-2023 Patient encounter procedure MD Cheli Grace Work Phone: [facility] Work Phone: Start: 11-24-2023 End: 11-24-2023 MD Cheli Grace Work Phone: [facility] Work Phone: Start: 11-17-2023 End: 11-17-2023 Emergency department patient visit MD [facility] Start: 11-17-2023 End: 11-17-2023 MD Cheli Grace Work Phone: [facility]Emer[facility] Work Phone: Start: 11-11-2023 Non-patient / Non-visit MD Beatriz Grace Work Phone: [facility] Work Phone: Start: 11-11-2023 MD Cheli Grace Work Phone: [facility] Work Phone: Start: 11-10-2023 Non-patient / Non-visit MD Beatriz Grace Work Phone: [facility] Start: 11-10-2023 End: 11-10-2023 ambulatory MD Cheli Grace Work Phone: [facility] Work Phone: Start: 11-10-2023 End: 11-10-2023 Patient encounter procedure MD [facility]li [facility] Start: 11-10-2023 End: 11-10-2023 MD Cheli Grace Work Phone: [facility] Start: 10-27-2023 End: 10-27-2023 Patient encounter procedure MD Cheli Grace Work Phone: [facility] Work Phone: Start: 10-27-2023 End: 10-27-2023 MD Cheli Grace Work Phone: [facility] Work Phone: Start: 10-19-2023 Non-patient / Non-visit Dr. Claudia Spencer Work Phone: [facility] Work Phone: Start: 10-19-2023 MD Cheli Grace Work Phone: [facility] Work Phone: Start: 10-18-2023 End: 10-19-2023 Evaluation and management of inpatient Dr. Arnold [facility] Work [facility]: Start: 10-18-2023 End: 10-19-2023 MD Cheli Grace [facility] Work Phone: Start: 10-07-2023 Non-patient / Non-visit Dr. Claudia Spencer Work Phone: [facility] Start: 10-07-2023 End: 10-07-[address] Arnold Spencer Work Phone: [facility] Work Phone: Start: 10-07-2023 End: 10-07-[address] Arnold Spencer [facility] Start: 10-07-2023 End: 10-07-2023 MD Cheli Grace Work Phone: [facility] Start: 09-24-2023 End: 09-24-[address] Arnold Spencer Work Phone: [facility] Work Phone: Start: 09-24-2023 End: 09-24-[address] Arnold Spencer Work Phone: [facility] Start: 09-24-2023 End: 09-24-2023 MD Cheli Grace Work Phone: [facility] Start: 09-22-2023 Non-patient / Non-visit Dr. Claudia Spencer Work Phone: [facility] Work Phone: Start: 09-22-2023 MD Cheli Grace Work Phone: [facility] Work Phone: Start: 09-21-2023 Non-patient / Non-visit Dr. Claudia Spencer Work Phone: [facility] Work Phone: Start: 09-21-2023 MD Cheli Grace Work Phone: [facility] Work Phone: Start: 09-20-2023 Non-patient / Non-visit Dr. Claudia Spencer Work Phone: [facility] Work Phone: Start: 09-20-2023 MD Cheli Grace Work Phone: [facility] Work Phone: Start: 09-20-2023 End: 09-20-2023 Non-patient / Non-visit Dr. Arnold Spencer Work Phone: [facility] Work Phone: Start: 09-20-2023 End: 09-20-2023 MD Cheli Grace Work Phone: [facility] Work Phone: Start: 09-19-2023 End: 09-19-2023 Non-patient / Non-visit Dr. Arnold Spencer Work Phone: [facility] Work Phone: Start: 09-19-2023 End: 09-22-2023 Evaluation and management of inpatient Dr. Arnold Spencer Work Phone: [facility] 3 Work Phone: Start: 09-19-2023 End: 09-22-2023 MD Cheli Grace Work Phone: [facility] 3 Work Phone: Start: 08-19-2023 End: 08-19-[address] Arnold Spencer Work Phone: [facility] Work Phone: Start: 08-19-2023 End: 08-19-[address] Arnold Spencer Work Phone: [facility] Work Phone: Start: 08-19-2023 End: 08-19-2023 MD Cheli Grace Work Phone: [facility] Work Phone: Start: 08-09-2023 Telephone encounter Cat sy MD Work Phone: [facility] Medicine Comment on above: Patient Update (Pt w ants to see another kidney doctor closer to home ([place], [place])) Start: 08-06-2023 ambulatory Jacquelyn Conley RN [facility] Comment on above: Community Monitoring Outreach Start: 07-15-2023 ambulatory Jacquelyn Conley RN [facility] Comment on above: Community Monitoring Outreach Start: 07-14-2023 End: 07-14-[address] Arnold Spencer Work Phone: [facility] Work Phone: Start: 07-08-2023 End: 07-08-[address] Arnold Spencer Work Phone: [facility] Work Phone: Start: 07-08-2023 End: 07-08-[address] Arnold Spencer Work Phone: [facility] Work Phone: Start: 06-30-2023 End: 07-01-2023 ambulatory ARNOLD SPENCER Facility:[facility] Start: 06-30-2023 End: 06-30-[address] Arnold Spencer Work Phone: [facility] Work Phone: Start: 06-17-2023 ambulatory Jacquelyn Conley RN [facility] Comment on above: Community Monitoring Outreach Start: 06-04-2023 Orders Only Cat forman MD Work Phone: [facility] Comment on above: Acidosis (Primary Dx ) Start: 05-28-2023 End: 05-29-2023 ambulatory ARNOLD SPENCER Facility:[facility] Start: 05-07-2023 ambulatory Jacquelyn Conley RN [facility] Comment on above: Community Monitoring Outreach Start: 05-05-2023 ambulatory Jacquelyn Conley RN [facility] Comment on above: Community Monitoring Outreach Start: 04-26-2023 End: 04-26-2023 ambulatory CAT ART Facility:[facility] Start: 04-02-2023 End: 04-02-[address] Arnold Spencer Work Phone: [facility] Work Phone: Start: 03-30-2023 ambulatory Jacquelyn Conley RN [facility] Comment on above: Community Monitoring Outreach Start: 03-02-2023 ambulatory Jacquelyn Conley RN [facility] Comment on above: Community Monitoring Outreach Start: 02-23-2023 End: 02-24-2023 ambulatory ARNOLD SPENCER Facility:[facility] Start: 02-09-2023 End: 02-09-[facility] Start: 02-05-2023 ambulatory Jacquelyn Conley RN [facility] Comment on above: Community Monitoring Outreach Start: 02-02-2023 End: 02-03-2023 [facility]ulatory [facility] Facility:[facility] Start: 02-02-2023 End: 02-02-2023 Office outpatient visit 25 minutes Arnold Spencer MD Work Phone: [facility] [place] Comment on above: Essential hypertensi on (Primary Dx); Hyperuricemia; Mixed hyperlipidemia; Stage 3 chronic kidney disease, unspecified whether stage 3a or 3b CKD (HCC) Start: 01-12-2023 End: 01-12-[address] Arnold Spencer Work Phone: [facility] Work Phone: Start: 01-12-2023 End: 01-12-[address] Arnold Spencer Work Phone: [facility]-Physical Therapy Start: 01-08-2023 ambulatory Jacquelyn Conley RN [facility] Comment on above: Community Monitoring Outreach Start: 01-07-2023 Refill Arnold lipscomb MD Work Phone: [facility] [place] Comment on above: Refill Request Start: 12-23-2022 End: 12-23-[address] Arnold Spencer Work Phone: [facility] Start: 12-11-2022 End: 12-11-[address] Arnold Spencer Work Phone: [facility] Start: 12-10-2022 End: 12-11-2022 ambulatory [facility] Facility:[facility] Start: 12-07-2022 ambulatory Jacquelyn Conley RN [facility] Comment on above: Community Monitoring Outreach Start: 12-04-2022 Telephone encounter Capri Guillaume MD Work Phone: [facility] [place] Comment on above: Public Health Dietitian - O ther MARCOS (acute kidney in jury) (HCC) (Primary Dx) Start: 12-03-2022 End: 12-04-2022 ambulatory [facility] Facility:[facility] Start: 11-27-[address] Arnold Spencer Work Phone: [facility]-Physical Therapy Start: 11-26-2022 End: 11-26-[address] Arnold Spencer Work Phone: [facility]-Laboratory Start: 11-23-2022 Telephone encounter Della acuna APRN.FILM DEVELOPER Work Phone: [facility] [place] Comment on above: Recheck Start: 11-20-2022 Telephone encounter Cat sy MD Work Phone: [facility] Comment on above: Patient Question (Re fill) Chronic combined sys tolic and diastolic congestive heart failure (HCC); MARCOS (acute kidney injury) (HCC) Start: 11-20-2022 End: 11-20-[address] Arnold Spencer Work Phone: [facility] Work Phone: Start: 11-20-2022 End: 11-20-[address] Arnold Spencer Work Phone: [facility]-Laboratory Start: 11-19-2022 End: 11-19-2022 ambulatory ARNOLD HERNANDEZCARITO Facility:[facility] Start: 11-19-2022 End: 11-19-2022 Subsequent hospital visit by physician [facility] Work Phone: Radiology Comment on above: Subacute cough [R05. 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); Essential hypertension; Chronic 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); Hydronephrosis, unspecified hydronephrosis type; Edema, unspecified type; Diarrhea, unspecified type Start: 11-02-2022 ambulatory Jacquelyn Conley RN [facility] Comment on above: Community Monitoring Outreach Start: 10-14-2022 Refill Arnold lipscomb MD Work Phone: [facility] [place] Comment on above: Refill Request Start: 10-09-2022 Refill Arnold lipscomb MD Work Phone: [facility] [place] Comment on above: Refill Request Start: 10-06-2022 End: 10-06-[address] Arnold Spencer Work Phone: [facility]astro[facility] Start: 09-29-2022 ambulatory Jacquelyn Conley RN [facility] Comment on above: Community Monitoring Outreach Start: 09-24-2022 End: 09-24-[address] Arnold Spencer Work Phone: [facility] Start: 09-05-2022 End: 09-05-[address] Arnold Spencer Work Phone: [facility] Start: 09-05-2022 End: 09-05-2022 Emergency department patient visit Dr. Arnold Spencer Work Phone: [facility]-Emergency Department Start: 09-04-[address] Arnlod [facility] Start: 09-03-2022 End: 09-03-[address] Arnold Spencer Work Phone: [facility]-Pulmonary Medicine [facility] Start: 08-28-2022 ambulatory Jarvis Mcgee RN [facility] Comment on above: Community Monitoring Outreach Start: 08-28-2022 End: 08-28-2022 Nursing evaluation of patient and report Nurse [facility] Work Phone: Urology Comment on above: Benign prostatic hyp erplasia without lower urinary tract symptoms (Primary Dx); Benign prostatic hyperplasia with urinary retention Start: 08-21-[address] Arnold [facility] Start: 08-17-2022 Non-patient / Non-visit Dr. Claudia Spencer Work Phone: [facility] Start: 08-17-2022 End: 08-17-[address] Arnold Spencer Work Phone: [facility] Work Phone: Start: 08-17-2022 End: 08-17-[address] Arnold Spencer Work Phone: [facility]-Cardiovascular Services Start: 08-15-2022 End: 08-15-2022 ambulatory Immun[facility] Nurse [place] Work Phone: [facility] [place] Comment on above: Arrived Start: 08-10-2022 Refill Arnold lipscomb MD Work Phone: [facility] [place] Comment on above: Refill Request Start: 08-07-2022 ambulatory Jarvis Mcgee RN [facility] Comment on above: Community Monitoring Outreach Start: 08-05-2022 Telephone encounter Arnold espinal MD Work Phone: [facility] [place] Comment on above: Referral Request Start: 08-04-2022 End: 08-04-[address] Arnold Spencer Work Phone: [facility] Start: 08-03-2022 Telephone encounter Arnold espinal MD Work Phone: [facility] [place] Comment on above: Consult Start: 07-31-2022 End: 07-31-2022 Patient encounter procedure Cat Art MD Work Phone: [facility] Medicine Comment on above: MARCOS (acute kidney in jury) (HCC) (Primary Dx); Edema, unspecified type; Hydronephrosis, unspecified hydronephrosis type; Essential hypertension; Chronic 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); Gout with manifestations Start: 2022 Telephone encounter Della acuna SOFTWARE QUALITY TESTER.FILM DEVELOPER Work Phone: [facility] [place] Comment on above: Results Start: 07-28-2022 End: 07-28-2022 Patient encounter procedure Partha Santana PA-C Work Phone: Urology Comment on above: Benign prostatic hyp erplasia without lower urinary tract symptoms Start: 07-21-2022 End: 07-21-2022 Patient encounter procedure 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 Work Phone: [facility] [place] Comment on above: Acute on chronic sys tolic CHF (congestive heart failure) (HCC) (Primary Dx); Encounter for immunization; 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; Chronic 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); MARCOS (acute kidney injury) (HCC) MARCOS (acute kidney in jury) (HCC) (Primary Dx); Hypomagnesemia; Edema, unspecified type; Heart failure, unspecified HF chronicity, unspecified heart failure type (HCC) Start: 07-17-2022 ambulatory Jarvis Mcgee RN [facility] Comment on above: Community Monitoring Outreach Start: 07-16-2022 ambulatory Arnold lipscomb MD Work Phone: [facility] Start: 07-16-2022 Telephone encounter Cat sy MD Work Phone: Kidney Medicine Comment on above: Patient Update MARCOS (acute kidney in jury) (HCC) (Primary Dx) Transition Of Care Start: 07-15-2022 Non-patient / Non-visit Dr. Claudia Spencer Work Phone: [facility] Start: 07-14-2022 Non-patient / Non-visit Dr. Claudia Spencer Work Phone: [facility] Start: 07-13-2022 Non-patient / Non-visit Dr. Claudia Spencer Work Phone: [facility] Start: 07-13-2022 Non-patient / Non-visit Dr. Claudia Spencre Work Phone: [facility] Start: 07-13-2022 End: 07-15-2022 Evaluation and management of inpatient Dr. Arnold Spencer Work Phone: [facility] Start: 07-10-2022 End: 07-10-2022 Patient encounter procedure Cat Art MD Work Phone: Kidney Medicine Comment on above: Chronic combined sys tolic and diastolic congestive heart failure (HCC) (Primary Dx); MARCOS (acute kidney injury) (HCC); Hydronephrosis, unspecified hydronephrosis type; Edema, unspecified type; Chronic combined systolic and diastolic CHF (congestive heart failure) (HCC); Diarrhea, unspecified type Start: 06-23-2022 End: 06-23-2022 Patient encounter procedure 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 APRN.CNS Work Phone: [facility] [place] Comment on above: Leg swelling (Primar y Dx); MARCOS (acute kidney injury) (HCC); Chronic combined systolic and diastolic heart failure (HCC); Essential hypertension; S/P CABG (coronary artery bypass graft) Start: 06-17-2022 Telephone encounter Arnold espinal MD Work Phone: [facility] [place] Comment on above: Medication Problem Start: 06-15-2022 ambulatory Carine casiano MD Work Phone: Virtual Medicine Comment on above: Peripheral edema (Pr imary Dx); Cough, unspecified type [facility] Start: 06-15-2022 Telemedicine consultation with patient Carine Faria MD Work Phone: [facility]UAL [facility]IT Start: 06-09-2022 End: 06-09-[address] Arnold Spencer Work Phone: [facility] Start: 06-05-2022 End: 06-05-2022 Office outpatient visit 25 minutes Arnold Spencer MD Work Phone: [facility] [place] Comment on above: Chronic cough (Prima ry Dx); LPRD (laryngopharyngeal reflux disease); Leg swelling; Collagenous colitis; Personal history of COVID-19; Essential hypertension; Chronic combined systolic and diastolic heart failure (HCC) Start: 05-29-2022 ambulatory Jarvis Mcgee RN [facility] Comment on above: [facility] (CHF/ CKD Telephonic CDM Outreach) Start: 05-26-2022 End: 05-26-2022 Patient encounter procedure 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 APRN.CNS Work Phone: [facility] [place] Comment on above: COVID-19 (Primary Dx ); MARCOS (acute kidney injury) (HCC); Hypokalemia Start: 05-15-2022 ambulatory Arnold lipscomb MD Work Phone: [facility] Start: 05-15-2022 Telephone encounter Arnold espinal MD Work Phone: [facility] [place] Comment on above: Appointment; Patient Update Transition Of Care Start: 05-13-2022 Non-patient / Non-visit Dr. Claudia Spencer Work Phone: [facility] Start: 05-12-2022 ambulatory Jarvis Mcgee RN [facility] Comment on above: [facility] Monitoring [facility] (CHF/ CKD Telephonic CDM Outreach) Start: 05-12-2022 Non-patient / Non-visit Dr. Claudia Spencer Work Phone: [facility] Start: 05-11-2022 Non-patient / Non-visit Dr. Claudia Spencer Work Phone: [facility] Start: 05-10-2022 Non-patient / Non-visit Dr. Claudia Spencer Work Phone: [facility] Start: 05-09-2022 Non-patient / Non-visit Dr. Claudia Spencer Work Phone: [facility] Start: 05-08-2022 Non-patient / Non-visit Dr. Claudia Spencer Work Phone: [facility] Start: 05-07-2022 Non-patient / Non-visit Dr. Claudia Spencer Work Phone: [facility] Start: 05-07-2022 End: 05-13-2022 Evaluation and management of inpatient Dr. Arnold Spencer Work Phone: [facility] Start: 05-07-2022 Telephone encounter Arnold espinal MD Work Phone: [facility] [place] Comment on above: Patient Update Start: 05-05-2022 Telephone encounter Sharmin Ramesh DO Work Phone: Vascular Surgery Comment on above: Results Start: 04-10-2022 ambulatory Jarvis Mcgee RN [facility] Care Management Comment on above: [facility] Monitoring Out[facility] (CHF / CKD Telephonic CDM Outreach) Start: 03-27-2022 Non-patient / Non-visit Dr. Claudia Spencer Work Phone: [facility] Start: 03-27-2022 End: 03-27-[address] Arnold Spencer Work Phone: [facility] Start: 03-26-2022 ambulatory Conley M Jacquelyn RN [facility] Care Management Comment on above: Community Monitoring Outreach (CHF/ CKD Telephonic CDM Outreach) Start: 03-19-2022 ambulatory Jarvis Mcgee RN [facility] Care Management Comment on above: Community Monitoring Outreach (CHF/ CKD Telephonic CDM Outreach) Start: 03-18-2022 ambulatory Jarvis Mcgee RN [facility] Management Comment on above: Community Monitoring Outreach (CHF/ CKD Telephonic CDM Outreach) Start: 03-16-2022 ambulatory Jarvis Mcgee RN [facility] Care Management Comment on above: Community Monitoring Outreach (CHF / CKD Telephonic CDM Outreach) Start: 03-13-2022 End: 03-14-2022 ambulatory ELENA BUNCH Facility:[facility] Start: 03-13-2022 End: 03-13-2022 Follow-up encounter Elena Bunch MD Work Phone: [facility] Comment on above: Remote Pacemaker Fol low Up Start: 03-13-2022 Pacemaker Remote F/U Elena Bunch MD Work Phone: [place] [facility] NOT LISTED Start: 03-13-2022 End: 03-13-2022 Patient encounter procedure Rem Device Ck [facility] Start: 03-10-2022 End: 03-10-2022 Patient encounter procedure 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 FILM DEVELOPER Work Phone: [facility] Comment on above: Congestive heart nickolas lure, unspecified HF chronicity, unspecified heart failure type (HCC) (Primary Dx); S/P CABG (coronary artery bypass graft); Essential hypertension Start: 03-06-2022 End: 03-06-[address] Arnold Spencer Work Phone: [facility] Start: 03-05-2022 ambulatory Jarvis Mcgee RN [facility] Care Management Comment on above: Community Monitoring Outreach (CHF / CKD Telephonic CDM Outreach) Start: 02-12-2022 Refill Arnold lipscomb MD Work Phone: Internal [facility] Comment on above: Refill Request Start: 02-03-2022 ambulatory Jarvis Mcgee RN Am bul[facility] Care Management Comment on above: Community Monitoring Outreach (CHF/ CKD CDM Outreach) Start: 01-05-2022 End: 01-05-2022 Emergency department patient visit Dr. Arnold Spencer Work Phone: [facility] Start: 11-08-2021 End: 11-08-2021 Subsequent hospital visit by physician Xr [facility] [employer] Work Phone: Radiology Comment on above: Acute right ankle pa in [M25.571] Start: 12-20-2020 End: 12-20-2020 [facility] Comment on above: Acute congestive hea rt failure, unspecified heart failure type (HCC) [I50.9] Start: 08-06-2020 End: 08-06-2020 [facility] Comment on above: Fall in home, initia l encounter [W19.XXXA, Y92.009] Procedures Date Procedure Procedure Detail Performing Clinician Start: 06-13-2025 Estimated creatinine clearance Cheli Grace MD Work Phone: Start: 06-13-2025 Total iron binding capacity measurement Cheli Grace MD Work Phone: Start: 04-18-2025 Estimated creatinine clearance Cheli Grace MD Work Phone: Start: 04-18-2025 Total iron binding capacity measurement Cheli Grace MD Work Phone: Start: 03-21-2025 Estimated creatinine clearance Cheli Grace MD Work Phone: Start: 02-21-2025 Immature reticulocyt e fraction Cheli Grace MD Work Phone: Start: 02-21-2025 Total iron binding capacity measurement Cheli Grace MD Work Phone: Start: 01-15-2025 Parathyroid hormone measurement Cheli Grace MD Work Phone: Start: 01-15-2025 Serum inorganic phos phate measurement Cheli Grace MD Work Phone: Start: 01-15-2025 Vitamin D, 25-hydrox y measurement Cheli Grace MD Work Phone: Comment on above: Vitamin D StatusDefi ciency: <20 ng/mL (50nmol/L)Insufficiency: 20-30 ng/mL (50-75 nmol/L)Sufficiency: 30-100 ng/mL (75-250 nmol/L)Toxicity: >100 ng/mL (>250 nmol/L) Start: 01-11-2025 Cardiovascular stres s test using pharmacologic stress agent Cheli Grace MD Work Phone: Start: 11-29-2024 Assay of phosphorus inorganic Cheli Grace MD Work Phone: Start: 11-29-2024 Measurement of renal function Cheli Grace MD Work Phone: Comment on above: GFR Calc Start: 10-31-2024 Folic acid measurement Cheli Grace MD Work Phone: Start: 07-12-2024 Blood disorder - ini tial assessment Cheli Grace MD Work Phone: Start: 07-12-2024 Red blood cell morphology Cheli Grace MD Work Phone: Start: 05-31-2024 Albumin/Globulin ratio Cheli Grace MD Work Phone: Start: 05-31-2024 Endomysial antibody IgA level Cheli Grace MD Work Phone: Start: 05-31-2024 Gliadin antibody, Ig A measurement Cheli Grace MD Work Phone: Comment on above: Negative 0 - 19 Weak Positive 20 - 30 Moderate to Strong Positive >30 Start: 05-31-2024 Gliadin antibody, Ig G measurement Cheli Grace MD Work Phone: Comment on above: Negative 0 - 19 Weak Positive 20 - 30 Moderate to Strong Positive >30 Start: 05-31-2024 Immunoglobulin M measurement Cheli Grace MD Work Phone: Start: 05-31-2024 Urine lambda light c john latha Grace MD Work Phone: Start: 11-29-2023 Anaerobic microbial culture MD Cheli Grace Work Phone: Start: 11-29-2023 Body Fluid Culture MD Tee Grace Work Phone: Start: 11-29-2023 Investigation of transfusion reaction MD Cheli Grace Work Phone: Start: 11-29-2023 MD Cheli Grace Work Phone: Start: 11-29-2023 Plain chest X-ray MD Rosmery Grace Work Phone: Start: 11-29-2023 Ultrasonic guidance for thoracentesis MD Cheli Grace Work Phone: Start: 11-28-2023 Clostridium difficil e detection MD Cheli Grace Work Phone: Start: 11-27-2023 Plain chest X-ray MD Rosmery Grace Work Phone: Start: 11-24-2023 Plain chest X-ray MD Rosmery Grace Work Phone: Start: 11-17-2023 US scan of gallbladder MD Cheli Grace Work Phone: Start: 11-17-2023 CT of abdomen and pe lvis without contrast MD Cheli Grace Work Phone: Start: 10-17-2023 Plain chest X-ray Dr. Chandler Spencer Work Phone: Start: 10-17-2023 Bacteria identified in Blood by Culture MD Cheli Grace Work Phone: Start: 10-17-2023 SARS-CoV-2 & FLU Ant igen (Rapid) Dr. Arnold Spencer Work Phone: Start: 10-17-2023 Urine culture MD Cheli Grace Work Phone: Start: 10-17-2023 Viral antigen assay MD Cheli Grace Work Phone: Start: 10-17-2023 MD Cheli Grace Work Phone: Start: 09-19-2023 Plain chest X-ray Dr. Chandler Spencer Work Phone: Start: 11-19-2022 Radiologic exam ches t 2 views 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 SOFTWARE QUALITY TESTER.FILM DEVELOPER Work Phone: Start: 09-05-2022 Plain chest X-ray Dr. Chandler Spencer Work Phone: Start: 08-15-2022 INFLUENZA SEASONAL QUADRIVALENT HIGH DOSE AGE 65+ Tree To MD Work Phone: Start: 07-28-2022 Urnls dip stick/tabl et rgnt auto w/o microscopy Partha Santana PA-C Work Phone: Start: 07-20-2022 Assay of magnesium Luis Daniel Pineda SOFTWARE QUALITY TESTER.FILM DEVELOPER Work Phone: Start: 07-13-[address] Claudia Spencer Work Phone: Start: 07-13-2022 Plain chest X-ray Dr. Chandler Spencer Work Phone: Start: 05-09-[address] Claudia Spencer Work Phone: Start: 05-07-2022 Plain chest X-ray Dr. Chandler Spencer Work Phone: Start: 03-27-2022 Cardiovascular stres s test using pharmacologic stress agent Dr. Arnold Spencer Work Phone: Start: 03-13-2022 PACEMAKER REMOTE CHECK Elena Bunch MD Work Phone: Start: 01-05-2022 Plain chest X-ray Dr. Chandler Spencer Work Phone: Start: 01-05-2022 Measurement of occul t blood in stool specimen using immunoassay Dr. Arnold Spencer Work Phone: Start: 01-05-2022 End: 01-05-[address] Arnold Spencer Work Phone: Start: 11-08-2021 Radex ankle complete minimum 3 views Laurent Moomaw SOFTWARE QUALITY TESTER.FLUID JET CUTTER OPERATOR Work Phone: Start: 12-20-2020 Radiologic exam ches t 2 views M Willian Baljinder ALFRED Work Phone: Start: 08-06-2020 Radiologic exam knee complete 4/more views Joaquin Lugo MD Work Phone: Start: 2015 History of coronary artery bypass grafting S/P CABG (coronary artery bypass graft) Jarvis Mcgee RN Clostridium difficil e detection Dr. Arnold Spencer Work Phone: Enteric Bacteriology Dr. Nila Spencer Work Phone: History of coronary artery bypass grafting S/P CABG (coronary artery bypass graft) 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 SOFTWARE QUALITY TESTER.FILM DEVELOPER Work Phone: History of coronary artery bypass grafting History of coronary artery bypass graft x 3 Dr. Arnold Spencer Work Phone: Comment on above: 06/17/15 with BUSBY to LAD, reverse SVG to Obtuse Marginal branch and posterior descending artery with Dr. Alberto; History of coronary artery bypass grafting S/P CABG (coronary artery bypass graft) 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 SOFTWARE QUALITY TESTER.FILM DEVELOPER Work Phone: Lactoferrin measurement Dr. Arnold Spencer Work Phone: SARS-CoV-2 & FLU Ant igen (Rapid) Dr. Arnold Spencer Work Phone: Plan of Treatment Date Care Activity Detail Author Start: 02-02-2026 DIABETES SCREEN DIABETES SCREEN [facility] Start: 02-02-2026 Diabetes Screening Diabetes Screenjulio g [facility] Start: 12-10-2025 DIABETES SCREEN DIABETES SCREEN [facility] Start: 08-27-2025 DIABETES SCREEN DIABETES SCREEN [facility] Start: 08-18-2025 DIABETES SCREEN DIABETES SCREEN [facility] Start: 07-28-2025 DIABETES SCREEN DIABETES SCREEN [facility] Start: 07-20-2025 DIABETES SCREEN [facility]CREEN [facility] Start: 07-06-2025 DIABETES SCREEN DIABETES SCREEN [facility] Start: 07-02-2025 Evaluation of diagno stic study results [facility] Start: 06-13-2025 Erythropoietin (EPO) [Units/volume] in Serum or Plasma [facility] Start: 06-13-2025 [facility] Start: 05-25-2025 DIABETES SCREEN DIABETES SCREEN [facility] Start: 05-16-2025 Comprehensive metabo lic 1999 panel - Serum or Plasma [facility] Start: 05-16-2025 Erythropoietin (EPO) [Units/volume] in Serum or Plasma [facility] Start: 05-16-2025 Ferritin [Mass/volum e] in Serum or Plasma [facility] Start: 05-16-2025 Iron and Iron bindin g capacity panel - Serum or Plasma [facility] Start: 05-16-2025 Lactate dehydrogenas e measurement [facility] Start: 05-16-2025 Vitamin B12 measurement [facility] Start: 05-16-2025 [facility] Start: 04-18-2025 Comprehensive metabo lic 1999 panel - Serum or Plasma [facility] Start: 04-18-2025 Ferritin [Mass/volum e] in Serum or Plasma [facility] Start: 04-18-2025 Iron and Iron bindin g capacity panel - Serum or Plasma [facility] Start: 04-18-2025 Lactate dehydrogenas e measurement [facility] Start: 04-18-2025 [facility] Start: 03-21-2025 CBC W Auto Different ial panel - Blood [facility] Start: 03-21-2025 [facility] Start: 01-09-2025 DIABETES SCREEN DIABETES SCREEN [facility] Start: 11-29-2024 Patient referral [facility] Work Phone: Start: 10-31-2024 Patient referral [facility] Work Phone: Start: 06-25-2024 Covid-19 Vaccine () Covid-19 Vaccine () [facility] Start: 06-25-2024 Influenza vaccination Influenza Vacc ine (#1) [facility] Start: 02-03-2024 Hepatitis B surface antibody level LDL CHOLESTEROL [facility] Start: 02-03-2024 SHINGRIX VACCINE (1 of 2) ANAYA GRIX VACCINE (1 of 2) [facility] Comment on above: Postponed from 07/30 (Declined at this time) Start: 02-03-2024 Urine microalbumin profile [facility] Comment on above: Postponed from 08/20 (Declined at this time) Start: 12-01-2023 Blood chemistry [facility] Start: 11-30-2023 Patient discharge [facility] Start: 11-30-2023 Referral to cage/vault supervisor [facility] Start: 11-30-2023 Blood chemistry [facility] Start: 11-30-2023 Complete blood count [facility] Start: 11-29-2023 Anaerobic Culture Anaerobic Culture [facility] Start: 11-29-2023 Body Fluid Culture Body Fluid Cultur e [facility] Start: 11-29-2023 Microscopic observat ion [Identifier] in Unspecified specimen by Gram stain [facility] Start: 11-29-2023 Glucose measurement, body fluid [facility] Start: 11-29-2023 Vital signs measurements [facility] Start: 11-29-2023 Referral to service [facility] Start: 11-29-2023 End: 11-29-2023 [facility] Start: 11-28-2023 Enteric precautions [facility] Start: 11-28-2023 Speech therapy assessment [facility] Start: 11-28-2023 Inhalation therapy procedure [facility] Start: 11-27-2023 Following clinical p athway protocol [facility] Start: 11-27-2023 Ambulation without limitation [facility] Start: 11-27-2023 Application of elast ic bandage [facility] Start: 11-27-2023 Assessment of risk o f venous thromboembolism [facility] Start: 11-27-2023 Elevation of affecte d extremity [facility] Start: 11-27-2023 Insertion of cathete r into peripheral vein [facility] Start: 11-27-2023 Measuring intake and output [facility] Start: 11-27-2023 Notification of physician [facility] Start: 11-27-2023 Oxygen therapy [facility] Start: 11-27-2023 Patient education [facility] Start: 11-27-2023 Providing care accor ding to standard [facility] Start: 11-27-2023 Referral to occupati onal therapist [facility] Start: 11-27-2023 Referral to service [facility] Start: 11-27-2023 Verification routine [facility] Start: 11-27-2023 Hospital admission, emergency, from emergency room, medical nature [facility] Start: 11-27-2023 Admission procedure [facility] Start: 11-27-2023 End: 11-27-2023 [facility] Start: 11-17-2023 [facility] Start: 10-25-2023 Advance Directive Discussion Advance Directive Discussion [facility] Start: 10-20-2023 Referral to service [facility] Start: 10-19-2023 Patient discharge [facility] Start: 10-18-2023 [facility] Start: 10-18-2023 Application of intermittent pneumatic compression device [facility] Start: 10-18-2023 Following clinical p athway protocol [facility] Start: 10-18-2023 Documentation procedure [facility] Start: 10-18-2023 Assessment of risk o f venous thromboembolism [facility] Start: 10-18-2023 Insertion of cathete r into peripheral vein [facility] Start: 10-18-2023 Measuring intake and output [facility] Start: 10-18-2023 Providing care accor ding to [facility] Start: 10-18-2023 Provision of activit y privileges [facility] Start: 10-18-2023 Referral to occupati onal therapist [facility] Start: 10-18-2023 Referral to service [facility] Start: 10-18-2023 [facility] Start: 10-18-2023 End: 10-18-2023 Admission procedure [facility] Start: 10-18-2023 Patient referral to dietitian [facility] Start: 10-17-2023 End: 10-18-2023 [facility] Start: 10-17-2023 End: 10-17-2023 Blood culture [facility] Start: 10-17-2023 Bacteria identified in Blood by Culture Blood Culture [facility] Start: 10-17-2023 Urine culture Urine Culture [facility] Start: 09-22-2023 Patient discharge [facility] Start: 09-21-2023 Oxygen therapy [facility] Start: 09-21-2023 [facility] Start: 09-20-2023 Referral to occupati onal therapist [facility] Start: 09-20-2023 End: 09-20-2023 Referral to service [facility] Start: 09-19-2023 Following clinical p athway protocol [facility] Start: 09-19-2023 Following clinical p athway protocol [facility] Start: 09-19-2023 Assessment of risk o f venous thromboembolism [facility] Start: 09-19-2023 Insertion of cathete r into peripheral vein [facility] Start: 09-19-2023 Notification of physician [facility] Start: 09-19-2023 Providing care accor ding to standard [facility] Start: 09-19-2023 [facility] Start: 09-19-2023 Verification routine [facility] Start: 09-19-2023 Admission procedure [facility] Start: 06-25-2023 Covid-19 Vaccine ( season) Covid-19 Vaccine () [facility] Start: 06-25-2023 Influenza vaccination [facility] Start: 02-01-2023 End: 04-03-2023 Basic metabolic 1999 panel - Serum or Plasma BASIC METABOLIC PNL Lab Routine Essential hypertension Chronic 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) Stage 3b chronic kidney disease (HCC) Expected: 02/01/2023, Expires: 04/03/2023 [facility] Work Phone: Comment on above: Expected: 02/01/2023 , Expires: 04/03/2023 Start: 12-04-2022 End: 02-03-2023 Basic metabolic 2000 panel - Serum or Plasma BASIC METABOLIC PNL Lab Routine MARCOS (acute kidney injury) (HCC) Expected: 12/04/2022, Expires: 02/03/2023 [facility] Work Phone: Comment on above: Expected: 12/04/2022 , Expires: 02/03/2023 Start: 12-04-2022 End: 02-03-2023 Renal function 1999 panel - Serum or Plasma RENAL FUNCTION PANEL Lab Routine Essential hypertension Chronic 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) Stage 3b chronic kidney disease (HCC) Expected: 12/04/2022, Expires: 02/03/2023 [facility] Work Phone: Comment on above: Expected: 12/04/2022 , Expires: 02/03/2023 Start: 10-25-2022 ADVANCE DIRECTIVE DISCUSSION ADVANCE DIRECTIVE DISCUSSION [facility] Start: 10-25-2022 DEPRESSION ASSESSMENT DEPRESSION ASS ESSMENT [facility] Start: 10-21-2022 Hepatitis B surface antibody level LDL CHOLESTEROL [facility] Start: 09-07-2022 End: 11-07-2022 Renal function 1999 panel - Serum or Plasma RENAL FUNCTION PANEL Lab Routine Chronic 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) MARCOS (acute kidney injury) (HCC) Expected: 09/07/2022 (Approximate), Expires: 11/07/2022 [facility] Work Phone: Comment on above: Expected: 09/07/2022 (Approximate), Expires: 11/07/2022 Start: 08-26-2022 End: 10-26-2022 Basic metabolic 2000 panel - Serum or Plasma BASIC METABOLIC PNL Lab Routine MARCOS (acute kidney injury) (HCC) Expected: 08/26/2022, Expires: 10/26/2022 [facility] Work Phone: Comment on above: Expected: 08/26/2022 , Expires: 10/26/2022 Start: 08-26-2022 End: 10-26-2022 Natriuretic peptide.B prohormone N-Terminal [Mass/volume] in Serum or Plasma NT PRO BNP Lab Routine MARCOS (acute kidney injury) (HCC) Edema, unspecified type Heart failure, unspecified HF chronicity, unspecified heart failure type (HCC) Expected: 08/26/2022, Expires: 10/26/2022 [facility] Work Phone: Comment on above: Expected: 08/26/2022 , Expires: 10/26/2022 Start: 08-18-2022 SHINGRIX VACCINE (1 of 2) ANAYA GRIX VACCINE (1 of 2) [facility] Comment on above: Postponed from 07/30 (Declined at this time) Start: 08-18-2022 Urine microalbumin profile DTAP,TDAP ,TD (1 - Tdap) [facility] Comment on above: Postponed from 08/20 (Declined at this time) Start: 08-14-2022 End: 10-14-2022 Magnesium [Mass/volume] in Serum or Plasma MAGNESIUM BLD Lab Routine MARCOS (acute kidney injury) (HCC) Chronic 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) Essential hypertension Expected: 08/14/2022, Expires: 10/14/2022 [facility] Work Phone: Comment on above: Expected: 08/14/2022 , Expires: 10/14/2022 Start: 08-14-2022 End: 10-14-2022 Renal function 2000 panel - Serum or Plasma RENAL FUNCTION PANEL Lab Routine MARCOS (acute kidney injury) (HCC) Chronic 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) Essential hypertension Expected: 08/14/2022, Expires: 10/14/2022 [facility] Work Phone: Comment on above: Expected: 08/14/2022 , Expires: 10/14/2022 Start: 2022 End: 09-29-2022 Hemoglobin A1c in Blood HGB A1C Lab Routine Elevated glucose Expected: 2022, Expires: 09/29/2022 [facility] Work Phone: Comment on above: Expected: 2022 , Expires: 09/29/2022 Start: 07-21-2022 End: 09-20-2022 Basic metabolic 2000 panel - Serum or Plasma BASIC METABOLIC PNL Lab Routine Chronic 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) MARCOS (acute kidney injury) (HCC) Expected: 07/21/2022, Expires: 09/20/2022 [facility] Work Phone: Comment on above: Expected: 07/21/2022 , Expires: 09/20/2022 Start: 07-16-2022 End: 07-16-2023 Renal function 2000 panel - Serum or Plasma RENAL FUNCTION PANEL Lab Routine MARCOS (acute kidney injury) (HCC) Expected: 07/16/2022, Expires: 07/16/2023 [facility] Work Phone: Comment on above: Expected: 07/16/2022 , Expires: 07/16/2023 Start: 07-15-2022 Patient discharge [facility] Work Phone: Start: 07-13-2022 End: 07-14-2022 [facility] Work Phone: Start: 07-13-2022 Referral to cage/vault supervisor [facility] Work Phone: Start: 07-13-2022 Oxygen therapy [facility] Work Phone: Start: 07-13-2022 Following clinical p athway protocol [facility] Work Phone: Start: 07-13-2022 Ambulation without limitation [facility] Work Phone: Start: 07-13-2022 Application of elast ic bandage [facility] Work Phone: Start: 07-13-2022 Assessment of risk o f venous thromboembolism [facility] Work Phone: Start: 07-13-2022 Elevation of affecte d extremity [facility] Work Phone: Start: 07-13-2022 Incentive spirometry [facility] Work Phone: Start: 07-13-2022 Insertion of cathete r into peripheral vein [facility] Work Phone: Start: 07-13-2022 Measuring intake and output [facility] Work Phone: Start: 07-13-2022 Notification of physician [facility] Work Phone: Start: 07-13-2022 Patient education [facility] Work Phone: Start: 07-13-2022 Providing care accor ding to standard [facility] Work Phone: Start: 07-13-2022 Referral to pmp certified project manager [facility] Work Phone: Start: 07-13-2022 Referral to occupati onal therapist [facility] Work Phone: Start: 07-13-2022 Referral to service [facility] Work Phone: Start: 07-13-2022 Admission procedure [facility] Work Phone: Start: 07-13-2022 Brain natriuretic pe ptide measurement [facility] Work Phone: Start: 07-13-2022 Patient referral to dietitian [facility] Work Phone: Start: 07-10-2022 End: 09-09-2022 ALBUMIN/CREAT RATIO RND UR ALBUMIN/CREAT RATIO RND UR Lab Routine MARCOS (acute kidney injury) ([facility]) Expected: 07/10/2022, Expires: 09/09/2022 [facility] Work Phone: Comment on above: Expected: 07/10/2022 , Expires: 09/09/2022 Start: 07-10-2022 End: 09-09-2022 MONOCLONAL PROTEIN, SERUM (BLOOD) MONOCLONAL PROTEIN, SERUM (BLOOD) Lab Routine MARCOS (acute kidney injury) ([facility]) Expected: 07/10/2022, Expires: 09/09/2022 [facility] Work Phone: Comment on above: Expected: 07/10/2022 , Expires: 09/09/2022 Start: 07-10-2022 End: 09-09-2022 Natriuretic peptide.B prohormone N-Terminal [Mass/volume] in Serum or Plasma NT PRO BNP Lab Routine Chronic 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) MARCOS (acute kidney injury) ([facility]) Expected: 07/10/2022, Expires: 09/09/2022 [facility] Work Phone: Comment on above: Expected: 07/10/2022 , Expires: 09/09/2022 Start: 07-10-2022 End: 09-09-2022 Protein/Creatinine [Mass Ratio] in Urine PROTEIN CREATININE RATIO Lab Routine MARCOS (acute kidney injury) (HCC) Expected: 07/10/2022, Expires: 09/09/2022 [facility] Work Phone: Comment on above: Expected: 07/10/2022 , Expires: 09/09/2022 Start: 07-10-2022 End: 09-09-2022 Urinalysis complete panel - Urine URINALYSIS, WITH MICROSCOPIC Lab Routine MARCOS (acute kidney injury) (HCC) Expected: 07/10/2022, Expires: 09/09/2022 [facility] Work Phone: Comment on above: Expected: 07/10/2022 , Expires: 09/09/2022 Start: 06-25-2022 Influenza vaccination INFLUENZA (#1) [facility] Start: 06-23-2022 End: 08-23-2022 Basic metabolic 2000 panel - Serum or Plasma [facility] Work Phone: Comment on above: Expected: 06/23/2022 , Expires: 08/23/2022 Start: 05-26-2022 End: 07-26-2022 Basic metabolic 2000 panel - Serum or Plasma BASIC METABOLIC PNL Lab Routine MARCOS (acute kidney injury) (HCC) Expected: 05/26/2022, Expires: 07/26/2022 [facility] Work Phone: Comment on above: Expected: 05/26/2022 , Expires: 07/26/2022 Start: 05-13-2022 Patient discharge [facility] Work Phone: Start: 05-13-2022 [facility] Work Phone: Start: 05-11-2022 Enteric precautions [facility] Work Phone: Start: 05-09-2022 Referral to pmp certified project manager [facility] Work Phone: Start: 05-07-2022 Following clinical p athway protocol [facility] Work Phone: Start: 05-07-2022 Ambulation without limitation [facility] Work Phone: Start: 05-07-2022 Assessment of risk o f venous thromboembolism [facility] Work Phone: Start: 05-07-2022 Incentive spirometry [facility] Work Phone: Start: 05-07-2022 Inhalation therapy procedure [facility] Work Phone: Start: 05-07-2022 Insertion of cathete r into peripheral vein [facility] Work Phone: Start: 05-07-2022 Providing care accor ding to standard [facility] Work Phone: Start: 05-07-2022 Provision of activit y privileges [facility] Work Phone: Start: 05-07-2022 Referral to service [facility] Work Phone: Start: 05-07-2022 Verification routine [facility] Work Phone: Start: 05-07-2022 Admission procedure [facility] Work Phone: Start: 05-07-2022 End: 05-07-2022 [facility] Work Phone: Start: 05-07-2022 [facility] Work Phone: Start: 10-25-2021 ADVANCE DIRECTIVE DISCUSSION ADVANCE DIRECTIVE DISCUSSION [facility] Start: 10-25-2021 DEPRESSION ASSESSMENT DEPRESSION ASS ESSMENT [facility] Start: 08-04-2021 COVID-19 VACCINE (3 - Booster for Pfizer series) COVID-19 VACCINE (3 - Booster for Pfizer series) [facility] Start: 04-29-2021 COVID-19 VACCINE (3 - Booster for Pfizer series) COVID-19 VACCINE (3 - Booster for Pfizer series) [facility] Start: 04-29-2021 COVID-19 VACCINE (3 - Pfizer series) COVID-19 VACCINE (3 - Pfizer series) [facility] Start: 08-20-2017 Urine microalbumin profile [facility] Start: 2011 RSV Vaccine (1 - 1-d ose 75+ series) RSV Vaccine (1 - 1-dose 75+ series) [facility] Start: 2001 PNEUMOCOCCAL: 65+ (1 - PCV) PNEUMOCOCCAL: 65+ (1 - PCV) [facility] Start: 1986 SHINGRIX VACCINE (1 of 2) ANAYA GRIX VACCINE (1 of 2) [facility] Start: 1955 Urine microalbumin profile DTAP,TDAP ,TD (1 - Tdap) [facility] Start: 1954 Anxiety Screening Anxiety Screening [facility] Start: 1954 Depression Screening Depression Scre ening [facility] Start: 01-28-1937 COVID-19 VACCINE (#1) COVID-19 VACCI NE (#1) [facility] Alanine aminotransfe rase [Enzymatic activity/volume] in Serum or Plasma [facility] Albumin [Mass/volume ] in Serum or Plasma [facility] Alkaline phosphatase [Enzymatic activity/volume] in Serum or Plasma [facility] Amylase [Enzymatic activity/volume] in Body fluid [facility] Anion gap in Serum o r Plasma [facility] Anion gap measurement [facility] Anion gap measurement [facility] Bacteria identified in Body fluid by Culture [facility] Bacteria identified in Unspecified specimen by Anaerobe culture [facility] Basic metabolic 2008 panel with ionized calcium - Serum or Plasma [facility] Bilirubin measuremen t, urine [facility] Work Phone: Bilirubin, total measurement [facility] Brain natriuretic pe ptide measurement [facility] Work Phone: BUN/Creatinine ratio [facility] BUN/Creatinine ratio [facility] BUN/Creatinine ratio [facility] Calcium [Mass/volume ] in Serum or Plasma [facility] Calcium [Mass/volume ] in Serum or Plasma [facility] Calcium [Mass/volume ] in Serum or Plasma [facility] Carbon dioxide, tota l [Moles/volume] in Central venous blood [facility] Carbon dioxide, tota l [Moles/volume] in Serum or Plasma [facility] Carbon dioxide, tota l [Moles/volume] in Serum or Plasma [facility] CBC W Auto Different ial panel - Blood [facility] CBC W Auto Different ial panel - Blood [facility] CBC W Auto Different ial panel - Blood [facility] CBC W Auto Different ial panel - Blood [facility] Chloride [Moles/volu me] in Serum or Plasma [facility] Chloride [Moles/volu me] in Serum or Plasma [facility] Clam IgE Ab [Units/v olume] in Serum [facility] Cobalamin (Vitamin B 12) [Mass/volume] in Serum or Plasma [facility] Codfish IgE Ab [Units/volume] in Serum [facility] Complete blood count [facility] metabo lic 1999 panel - Serum or Plasma [facility] metabo lic 1999 panel - Serum or Plasma [facility] Gloucester IgE Ab [Units/v olume] in Serum [facility] Cow milk IgE Ab [Units/volume] in Serum [facility] Creatinine [Mass/vol ume] in Serum or Plasma [facility] Creatinine [Moles/vo lume] in Serum or Plasma [facility] Creatinine [Moles/vo lume] in Serum or Plasma [facility] Cytology report of B michael fluid Cyto stain [facility] Egg white IgE Ab [Units/volume] in Serum [facility] Erythrocyte mean corpuscular volume determination [facility] Erythrocytes [#/volu me] in Body fluid [facility] Erythropoietin (EPO) [Units/volume] in Serum or Plasma [facility] Ferritin [Mass/volum e] in Serum or Plasma [facility] Ferritin [Mass/volum e] in Serum or Plasma [facility] Folate [Moles/volume ] in Serum or Plasma [facility] Glucose [Mass/volume ] in Serum or Plasma [facility] Glucose [Mass/volume ] in Serum or Plasma [facility] Glucose [Mass/volume ] in Serum or Plasma [facility] Hematocrit [Volume Fraction] of Blood [facility] Hemoglobin [Mass/vol ume] in Blood [facility] Hemoglobin [Presence ] in Urine [facility] Work Phone: INFLUENZA SEASONAL QUADRIVALENT HIGH DOSE AGE 65+ INFLUENZA SEASONAL QUADRIVALENT HIGH DOSE AGE 65+ Immunization/Injection Routine Encounter for immunization Ordered: 07/21/2022 [facility] Work Phone: Comment on above: Ordered: 07/21/2022 Iron [Mass/mass] in Unspecified specimen [facility] Iron [Mass/mass] in Unspecified specimen [facility] Iron and Iron bindin g capacity panel - Serum or Plasma [facility] Iron and Iron bindin g capacity panel - Serum or Plasma [facility] Iron saturation [Mas s Fraction] in Serum or Plasma [facility] Iron saturation [Mas s Fraction] in Serum or Plasma [facility] Laboratory data interpretation [facility] Lactate dehydrogenas e [Enzymatic activity/volume] in Body fluid by Pyruvate to lactate reaction [facility] Lactate dehydrogenas e measurement [facility] Lactate dehydrogenas e measurement [facility] Leukocytes [#/volume ] in Blood [facility] Magnesium [Mass/volu me] in Serum or Plasma [facility] Work Phone: Mean corpuscular hemoglobin concentration determination [facility] Mean corpuscular hemoglobin determination [facility] Measurement of keton es in urine using dipstick [facility] Work Phone: Measurement of renal function [facility] Measurement of renal function [facility] Measurement of renal function [facility] Microscopic urinalysis [facility] Work Phone: Patient Education [facility] Work Phone: Patient referral [facility] Work Phone: Peanut IgE Ab [Units/volume] in Serum [facility] PFIZER-BIONTECH COVI D-19 BIVALENT BOOSTER VACCINE, AGE 12+ YR PFIZER-BIONTECH COVID-19 BIVALENT BOOSTER VACCINE, AGE 12+ YR Immunization/Injection Routine Encounter for immunization 1 Occurrences starting 07/21/2022 [facility] Work Phone: Comment on above: 1 Occurrences starti ng 07/21/2022 pH of Body fluid [facility] pH of Urine [facility] Work Phone: Platelets [#/volume] in Blood [facility] POST VOID RESIDUAL POST VOID RES IDUAL Procedures Routine 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 Benign prostatic hyperplasia with urinary retention Ordered: 08/28/2022 [facility] Work Phone: Comment on above: Ordered: 08/28/2022 Potassium [Moles/vol ume] in Serum or Plasma [facility] Potassium [Moles/vol ume] in Serum or Plasma [facility] Potassium measurement [facility] Protein [Mass/volume ] in Body fluid [facility] Prothrombin time [facility] Red blood cell count [facility] Red cell distributio n width determination [facility] Replacement of elect ayaka heart device, pulse generator [facility] Scallop [facility] Serum chloride measurement [facility] Sesame seed [facility] Shrimp IgE Ab [Units/volume] in Serum [facility] Sodium [Moles/volume ] in Serum or Plasma [facility] Sodium [Moles/volume ] in Serum or Plasma [facility] Sodium measurement [facility] Soybean IgE Ab [Units/volume] in Serum [facility] Specific gravity of Urine [facility] Work Phone: Specimen description [facility] Specimen processing [facility] Total iron binding capacity measurement [facility] Total iron binding capacity measurement [facility] Total protein measurement [facility] Urea nitrogen [Mass/volume] in Serum or Plasma [facility] Urea nitrogen [Mass/volume] in Serum or Plasma [facility] Urea nitrogen [Mass/volume] in Serum or Plasma [facility] Urinalysis complete panel - Urine [facility] Urinalysis, blood, qualitative [facility] Work Phone: Urine dipstick for glucose [facility] Work Phone: Urine dipstick for leukocyte esterase [facility] Work Phone: Urine dipstick for nitrite [facility] Work Phone: Urine dipstick for protein [facility] Work Phone: Urine examination [facility] Work Phone: Urine microscopy: epithelial cells [facility] Work Phone: Urine Microscopy: wh ite cells [facility] Work Phone: Urobilinogen [Presen ce] in Urine [facility] Work Phone: End: 05-07-2023 [facility] Vascular Lab Routine Bilateral carotid artery stenosis 1 Occurrences starting 05/07/2022 until 05/07/2023 [facility] Work Phone: Comment on above: 1 Occurrences starti ng 05/07/2022 until 05/07/2023 US Heart [facility] End: 08-09-2023 US KIDNEY/BLADDER US KIDNEY/BLADDER Radiology Routine MARCOS (acute kidney injury) (HCC) Hydronephrosis, unspecified hydronephrosis type 1 Occurrences starting 07/10/2022 until 08/09/2023 [facility] Work Phone: Comment on above: 1 Occurrences starti ng 07/10/2022 until 08/09/2023 [place] [facility] Wheat IgE Ab [Units/volume] in Serum [facility] XR Chest PA and Lateral [facility] Immunizations Immunization Date Immunization Notes Care Provider [facility] 07-16-2024 influenza, high dose seasonal, preservative-free Cheli Grace MD Work Phone: [facility] 09-20-2023 Influenza High-Dose Quadrivalent Dr. Arnold Spencer Work Phone: [facility] 08-15-2022 influenza, high-dose , quadrivalent vaccine (FLUZONE HIGH DOSE QUADRIVALENT) Immunization [place] Work Phone: [facility] 08-15-2022 influenza virus vaccine, unspecified formulation Jacquelyn Conley RN [facility] 07-28-2021 Influenza, high dose seasonal Cheli Grace MD Work Phone: [facility] 07-28-2021 influenza, high dose seasonal, preservative-free Dr. Arnold Spencer Work Phone: [facility] 07-28-2021 influenza, high-dose , quadrivalent vaccine (FLUZONE HIGH DOSE QUADRIVALENT) Jarvis Mcgee RN [facility] 03-04-2021 COVID-19 vaccine, ag e 12+ yr (PFIZER-BIONTECH - PURPLE TOP) Jarvis Mcgee RN [facility] 02-08-2021 COVID-19 vaccine, ag e 12+ yr (PFIZER-BIONTECH - PURPLE TOP) Jarvis Mcgee RN [facility] 08-25-[address] Arnold Spencer Work Phone: [facility] 08-08-2020 influenza, injectabl e, quadrivalent, preservative free Dr. Arnold Spencer Work Phone: [facility] 08-08-2020 influenza, seasonal, injectable Jarvis Mcgee RN [facility] 07-24-2020 influenza, high-dose , quadrivalent vaccine (FLUZONE HIGH DOSE QUADRIVALENT) Cat Art MD Work Phone: [facility] 10-10-2019 Influenza, high dose seasonal Cheli Grace MD Work Phone: [facility] 10-10-2019 influenza, high dose seasonal, preservative-free Jarvis Mcgee RN [facility] Work Phone: 07-01-2018 Influenza, high dose seasonal Cheli Grace MD Work Phone: [facility] 07-01-2018 influenza, high dose seasonal, preservative-free Jarvis Mcgee RN [facility] 08-19-2017 Influenza, high dose seasonal Cheli Grace MD Work Phone: [facility] 08-19-2017 influenza, high dose seasonal, preservative-free Jarvis Mcgee RN [facility] 08-19-2017 tetanus and diphther ia toxoids, adsorbed, preservative free, for adult use (2 Lf of tetanus toxoid and 2 Lf of diphtheria toxoid) Dr. Arnold Spencer Work Phone: [facility] 08-19-2017 tetanus and diphther ia toxoids, adsorbed, preservative free, for adult use (5 Lf of tetanus toxoid and 2 Lf of diphtheria toxoid) Jarvis Mcgee RN [facility] 08-11-2016 Influenza, high dose seasonal Cheli Grace MD Work Phone: [facility] 08-11-2016 influenza, high dose seasonal, preservative-free Jarvis Mcgee RN [facility] Work Phone: 07-29-2015 Influenza, high dose seasonal Cheli Grace MD Work Phone: [facility] 07-29-2015 influenza, high dose seasonal, preservative-free Jarvis Mcgee RN [facility] 07-29-2015 pneumococcal conjuga te vaccine, 13 valent Jarvis Mcgee RN [facility] 08-22-2014 influenza, injectabl e, quadrivalent, preservative free Dr. Arnold Spencer Work Phone: [facility] 08-22-2014 influenza, seasonal, injectable Jarvis Mcgee RN [facility] Work Phone: 09-06-2013 influenza virus vaccine, unspecified formulation Jarvis Mcgee [facility] Work Phone: 09-19-2012 influenza virus vaccine, unspecified formulation Jarvis Mcgee RN [facility] 10-23-2011 influenza virus vaccine, unspecified formulation Jarvis Mcgee RN [facility] 03-27-2008 pneumococcal polysaccharide vaccine, 23 valent Jarvis Mcgee [facility] NEGATED: Highlighted row has not occurred!07-21-2022 influenza, high-dose, quadrivalent vaccine (FLUZONE HIGH DOSE QUADRIVALENT) 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 APRN.CNS Work Phone: [facility] Work Phone: Comment on above: Deferred: Postponed Payers Date Payer Category Payer Self-pay [id number] 2024 Unknown [id number] 2021 Unknown [employer] SUPPLEMENT [id number] 2021-Present [phone] [place] [address] Indemnity [id number]. [id number] 2021 Unknown [id number] 2011 Unknown [id number]. 1.13.159.2.7. [id number] 2001 Medicare MEDICARE MEDICAR E A AND B [id number] 2001-Present [phone] [place] [id number] Medicare [id number] [id number]. [id number] 2001 Medicare [id number] 2001 Medicare MEDICARE MEDICAR E A AND B [id number] 2001-Present [phone] [address] [place] [id number] Medicare [id number]. [id number] Unknown [id number] Unknown [id number] 2.16.840.1.348417.3.579.2.46 2 Unknown [id number] 2.16840.1.104343.3.579.2.46 2 Unknown [id number] 2.16840.1.431019.3.579.2.46 2 Unknown [id number] 2.16.840.1.292198.3.579.2.46 2 Unknown [id number] 2.16.840.1.109306.3.579.2.46 2 Unknown [id number] 2.16.840.1.169533.3.579.2.46 2 Unknown [id number] 2.16.840.1.122608.3.579.2.46 2 Unknown [id number] 2.16.840.1.349548.3.579.2.46 2 Unknown [id number] 2.16.840.1.620806.3.579.2.46 2 Unknown [id number] 2.16.840.1.172617.3.579.2.46 2 Unknown [id number] 2.16.840.1.062189.3.579.2.46 2 Unknown [id number] 2.16.840.1.693815.3.579.2.46 2 Unknown [id number] 2.16.840.1.757890.3.579.2.46 2 Unknown [id number] 2.16.840.1.838862.3.579.2.46 2 Unknown [id number] 2.16.840.1.794400.3.579.2.46 2 Unknown [id number] 2.16.840.1.395386.3.579.2.46 2 Unknown [id number] 2.16.840.1.182426.3.579.2.46 2 Unknown [id number] 2.16.840.1.881302.3.579.2.46 2 Unknown [id number] 2.16.840.1.810932.3.579.2.46 2 Unknown [id number] 2.16.840.1.252033.3.579.2.46 2 Unknown [id number] 2.16.840.1.127978.3.579.2.46 2 Unknown [id number] 2.16.840.1.083557.3.579.2.46 2 Unknown [id number] 2.16.840.1.134250.3.579.2.46 2 Unknown [id number] 2.16.840.1.464477.3.579.2.46 2 Unknown [id number] 2.16.840.1.680459.3.579.2.46 2 Unknown [id number] 2.16.840.1.346782.3.579.2.46 2 Unknown [id number] 2.16.840.1.357612.3.579.2.46 2 Unknown [id number] 2.16.840.1.260345.3.579.2.46 2 Unknown [id number] 2.16.840.1.410288.3.579.2.46 2 Unknown [id number] 2.16.840.1.610893.3.579.2.46 2 Unknown [id number] 2.16.840.1.650113.3.579.2.46 2 Unknown [id number] 2.16.840.1.099450.3.579.2.46 2 Unknown [id number] 2.16.840.1.620888.3.579.2.46 2 Unknown [id number] 2.16.840.1.918305.3.579.2.46 2 Unknown [id number] 2.16.840.1.082641.3.579.2.46 2 Social History Date Type Detail Facility Start: 02-22-2012 End: 07-15-2024 Tobacco smoking status NDIS Never smoked tobacco [facility] Start: 12-12-2020 End: 01-13-2022 Alcohol intake Current non-drinker of alcohol (finding) [facility] Start: 03-29-2020 End: 04-23-2020 History SDOH Alcohol Frequency 1 [facility] Start: 03-29-2020 History SDOH Alcohol Std Drinks 98 [facility] Start: 03-29-2020 End: 04-23-2020 History SDOH Social Connections Phone 5 [facility] Start: 03-29-2020 History SDOH Social Connections Get Together 4 [facility] Start: 03-29-2020 History SDOH Social Connections Quaker 3 [facility] Start: 03-08-2020 End: 03-29-2020 History SDOH Physical Activity DPW 2 [facility] Start: 03-08-2020 Education 15 [facility] Start: 1935 Sex Assigned At Not on file [facility] Start: 07-07-2020 End: 07-31-2022 Exposure to SARS-CoV-2 (event) Not sure [facility] Work Phone: Start: 03-06-2022 End: 11-27-2023 Tobacco smoking status NHIS Unknown if ever smoked [facility] Start: 12-02-2020 None [facility] Start: 12-02-2020 Spouse/ Significant Other [facility] Start: 12-02-2020 Non-smoker [facility] Start: 1935 Sex Assigned At Male [facility] Start: 02-22-2012 End: 06-23-2022 Tobacco use and exposure Smokeless tobacco non-user [facility] Start: 09-30-2020 End: 02-02-2023 History of Social function [facility] Work Phone: Start: 09-30-2020 End: 02-02-2023 Tobacco use panel [facility] Work Phone: Adult Depression Screening Assessment 0 [facility] Work Phone: Do you belong to any clubs or organizations such as religion groups, unions, fraternal or athletic groups, or school groups? Yes [facility] Are you now , , , , never or living with a partner? [facility] How often to you hav e a drink containing alcohol? Never [facility] Do you feel stress - tense, restless, nervous, or anxious, or unable to sleep at night because your mind is troubled all the time - these days [OSQ] Not at all [facility] (I/We) worried wheth er (my/our) food would run out before (I/we) got money to buy more. Never true [facility] Work Phone: In the past 12 month s, was there a time when you were not able to pay the mortgage or rent on time? No [facility] Start: 01-19-2025 End: 01-22-2025 Sex Male (finding) [facility] Medical Equipment Procedure Code Equipment Code Equipment Original Text Equipment Identifier Dates Plate Low Profil e Titanium 12mm Bone 2 Hole Bar 1.5mm Screw Nonsterile - [id number] Start: 11-29-2018 Plate Low Profil e Titanium 12mm Bone 2 Hole Bar 1.5mm Screw Nonsterile - [id number] Start: 11-29-2018 Screw 1.5mm 4mm Bone Self Drill Cross Pin Craniomaxillofacial - [id number] Start: 11-29-2018 Screw 1.5mm 4mm Bone Self Drill [place] Craniomaxillofacial - [id number] Start: 11-29-2018 Pacemaker-Vedr01 [id number] Start: 06-20-2015 Goals Date Patient Goal Desired Activity /State Personal health goal Comment on above: Formatting of this n ote might be different from the original. Every other day Personal health goal Comment on above: Formatting of this n ote might be different from the original. Personal health goal Personal health goal Comment on above: Formatting of this n ote might be different from the original. Stay Healthy, and active. Personal health goal Comment on above: Formatting of this n ote might be different from the original. Improved Health Personal health goal Comment on above: Formatting of this n ote might be different from the original. Wants to walk without imbalance Comment on above: Formatting of this n ote might be different from the original. Every other day Comment on above: Formatting of this n ote might be different from the original. Comment on above: Formatting of this n ote might be different from the original. Stay Healthy, and active. Comment on above: Formatting of this n ote might be different from the original. Improved Health Comment on above: Formatting of this n ote might be different from the original. Wants to walk without imbalance Functional Status Date Assessment Result Facility 11-30-2023 Functional status Ambulates;Bathroom Priv ilege [facility] Work Phone: 11-29-2023 Functional status Chair [facility] Work Phone: 10-19-2023 Functional status Chair [facility] Work Phone: 09-22-2023 Functional status Bathroom Privi lege;Passive Range of Motion [facility] Work Phone: 07-15-2022 Functional status Activity Abili ty With Assist of 1 [facility] Work Phone: 07-14-2022 Functional status Ambulates [facility] Work Phone: 05-13-2022 Functional status Bathroom Privilege [facility] Work Phone: Mental Status Date Assessment Result Facility 12-13-2024 Cognitive function Level Of Cons ciousness Awake;Alert;Appropriate;Follow s Commands [facility] Work Phone: 12-06-2024 Cognitive function Patient Orien tation Person;Place;Time [facility] Work Phone: 11-29-2024 Cognitive function Arousable To Voice/Nam e [facility] Work Phone: 11-30-2023 Cognitive function Voice/Name [facility] Work Phone: 11-29-2023 Cognitive function Level Of Cons ciousness Awake;Alert;Appropriate [facility] Work Phone: 11-29-2023 Cognitive function Voice/Name [facility] Work Phone: 11-27-2023 Cognitive function Voice/Name [facility] Work Phone: 10-19-2023 Cognitive function Voice/Name [facility] Work Phone: 09-22-2023 Cognitive function Voice/Name [facility] Work Phone: 09-05-2022 Cognitive function Level Of Cons ciousness Awake;Alert;Appropriate;Follow s Commands [facility] Work Phone: 07-15-2022 Cognitive function Voice/Name [facility] Work Phone: 07-13-2022 Cognitive function Awake;Alert;A ppropriate;Follow s Commands [facility] Work Phone: 05-13-2022 Cognitive function Voice/Name [facility] Work Phone: 05-07-2022 Cognitive function Level Of Cons ciousness Awake;Alert;Appropriate;Follow s Commands [facility] Work Phone: Clinical Notes 06-03-2017 to 07-02-2025 Note Date & Type Note Facility 07-02-2025 Procedure note [facility] 05-16-2025 Progress note [facility] 05-16-2025 Progress note Note Date/Time May 16, 2025 2:11pm [facility] [address] [place] [address] OFFICE VISIT Date of Service: 05/16/25 1341 MR#: [id number] Acct: [id number] Name: DARCY LUCAS Rep #: [id number] : 1935 From: Felipe Trivedi MD Age/Sex: 89/M Location: [facility] [place] Status: Signed HPI Subjective Date of Service 05/16/25 Chief Complaint F/u for anemia due to CKD. History of Present Illness 89-year-old man with history of chronic kidney disease, iron deficiency, chronicGI problems was found to have persistent anemia. Instructed to begin PO iron. June 21, 2024 began Retacrit injections, 20,000 units Qweek for Hgb <10 g/dL. HGB increased above 10 so did not receive Retacrit from 07/20/2024 to 10/31/24. Injectafer was given on 12/06/24 and 12/13/24 for Iron deficiency Anemia. HGB has been above 10 so has not received Retacrit. Comes for follow up. Feeling well. [facility] Medical History Chest pain Iron deficiency anemia Anemia in chronic kidney disease (CKD) Atrial flutter Chronic kidney disease (CKD) Kidney disease, chronic, stage III (GFR 30-59 ml/min) Hypoxemia Pneumonia of both lower lobes GERD (gastroesophageal reflux disease) COVID-19 Ischemic cardiomyopathy Carotid artery disease Chronic kidney disease (CKD) Paroxysmal atrial fibrillation Sick sinus syndrome Atherosclerosis of [place] coronary artery of [place] heart without angina pectoris Brain bleed Congestive heart failure Acute electrocardiogram changes Surgical History History of craniotomy History of permanent cardiac pacemaker placement History of coronary artery bypass graft x 3 History of brain surgery Family History Father CAD (coronary artery disease) Mother Heart disease Hypertension Heart failure Social History household members: spouse Smoking Status: Never smoker alcohol intake: never substance use type: does not use caffeine: No Intake Vital Signs 04/18/25 15:34 05/16/25 13:43 Height 5 ft 10 in 5 ft 10 in Weight: 63.758 kg BMI 20.1 BP 125/77 H Blood Pressure Location Lt brachial Position Sitting Respiration 18 Pulse 78 Pulse Source Monitor Temp 98.1 F Temperature Source Temporal Artery Pulse Oximetry (%) 97 Oxygen Delivery Method room air Intake Accompanied by: Is patient in pain?: No Allergies levofloxacin (From Levcompropago) Allergy (Unknown, Verified 05/16/25 13:48) unknown Medications ?Medication ?Instructions ?Recorded ?Confirmed ?Type allopurinol 100 mg tablet 100 mg PO BID Gout 11/24/18 05/16/25 History atorvastatin 40 mg tablet 40 mg PO QHS Cholesterol 05/16/25 History albuterol sulfate 90 mcg/actuation 2 puff inhalation Q 4H PRN 12/25/20 05/16/25 Rx aerosol inhaler shortness of breath or wheez ing #8.5 grams cholecalciferol (vitamin D3) 50 50 mcg PO DAILY bone h ealth #1 TAB 03/09/22 05/16/25 Rx mcg (2,000 unit) tablet coenzyme Q10 100 mg tablet 100 mg PO DAILY general 11/1505/16/25 History ascorbic acid (vitamin C) 500 mg 500 mg PO DAILY 05/3105/16/25 History tablet mecobalamin (vitamin B12) 1,000 1,000 mcg sublingual D AILY 05/31/24 05/16/25 History mcg disintegrating tablet,sublingual pyridoxine (vitamin B6) 100 mg 100 mg PO DAILY 4 05/16/25 History tablet zinc gluconate 50 mg tablet 50 mg PO DAILY 05/31/24 History carvedilol 25 mg tablet 25 mg PO QHS 07/15/24 History ferrous sulfate 325 mg (65 mg 325 mg PO DAILY 07/15/24 05/16/25 History iron) tablet,delayed release apixaban 2.5 mg tablet 2.5 mg PO BID Blood thinner #180 12/04/24 05/16/25 Rx tabs sacubitril 49 mg-valsartan 51 mg 1 tab PO BID #180 tab s 12/04/24 05/16/25 Rx tablet (Entresto) nitroglycerin 0.4 mg sublingual 0.4 mg sublingual Q5M PRN 12/14/24 05/16/25 Rx tablet Cardiac/Chest Pain #30 tabs furosemide 40 mg tablet 40 mg PO DAILY PRN edema 05/16/25 History potassium chloride 20 mEq 20 meq PO QDAY PRN 02/21/25 05/16/25 History tablet,extended release multivitamin 1 tab PO QDAY 03/21/2505/16 History Have you fallen in the past year?: No Central Venous Access Central Venous Access: No Laboratory Tests 03/08/24 05/31/24 06/08/24 11:32 17:05 10:45 WBC Hgb Hct MCV Plt Count Absolute Neuts (auto) Absolute Lymphs (auto) Sodium 140 Potassium Chloride 115 H Carbon Dioxide 17.0 L BUN 54 H Creatinine 2.57 H Glucose 102 Phosphorus 3.6 Magnesium 1.6 Iron 82 TIBC 240 L Iron Saturation 34.2 Erythropoietin 10.2 Ferritin 219 GGT 31 Lactate Dehydrogenase 197 Vitamin B12 > 2000 H 06/08/24 06/08/24 09/26/24 12:10 13:23 13:58 WBC 5.1 4.8 Hgb 9.5 L 10.5 L Hct 30.6 L 32.4 L MCV 105.5 H Plt Count 137 L 126 L Absolute Neuts (auto) Absolute Lymphs (auto) Sodium Potassium 5.9 H 2.9 L Chloride 111 H Carbon Dioxide 27.0 BUN Creatinine Glucose Phosphorus Magnesium Iron TIBC Iron Saturation Erythropoietin Ferritin GGT Lactate Dehydrogenase Vitamin B12 03/21/25 04/18/25 05/16/25 14:06 14:45 12:40 WBC 4.5 4.4 5.2 Hgb 10.5 L 10.4 L 10.2 L Hct 31.9 L 31.4 L 30.4 L MCV Plt Count 122 L 135 L 119 L Absolute Neuts (auto) 3.6 Absolute Lymphs (auto) 0.92 Sodium Potassium Chloride Carbon Dioxide BUN Creatinine Glucose Phosphorus Magnesium Iron TIBC Iron Saturation Erythropoietin Ferritin GGT Lactate Dehydrogenase Vitamin B12 Exam Physical Exam Narrative Elderly man, walking with a cane. Const alert, oriented x3 and no apparent distress Coding Level of Care Code Off vis,est,level 3 Exam Problem Focused Diagnoses Anemia in stage 4 chronic kidney disease N18.4; D63.1 Chronic kidney disease stage: stage 4 (severe) Assessment and Plan Assessment and Plan (1) Anemia in chronic kidney disease (CKD): Status: Chronic Qualifiers: Chronic kidney disease stage: stage 4 (severe) Qualified Code(s): N18.4- Chronic kidney disease, stage 4 (severe); D63.1 - Anemia in chronic kidney disease Comment: Anemia with CKD stage 4 HGB is greater than 10. Plan: To hold Retacrit till Hgb is less than 10. Plan Clinical Quality Measures Falls Risk Screening/Assistive Devices Have you fallen in the past year?: No 05/16/25 1411 <Electronically signed by Felipe Morillo> Date _ Felipe Trivedi MD [facility] Signature: Date (if applicable) CC: Dr. Cheli Grace MD; Dr. Stefany Norwood MD ~ [facility] Work Phone: 1(457) 261-818306-25-2025 Progress [facility] [address] [place] [address] OFFICE VISIT Date of Service: 04/18/25 1532 MR#: [id number] Acct: [id number] Name: DARCY LUCAS Rep #: [id number] : 1935 From: Felipe Trivedi MD Age/Sex: 89/M Location: [facility] [place] Status: Signed HPI Subjective Date of Service 04/18/25 Chief Complaint F/u for anemia due to CKD. History of Present Illness 89-year-old man with history of chronic kidney disease, iron deficiency, chronicGI problems was found to have persistent anemia. Instructed to begin PO iron. June 21, 2024 began Retacrit injections, 20,000 units Qweek for Hgb <10 g/dL. HGB increased above 10 so did not receive Retacrit from 07/20/2024 to 10/31/24. Injectafer given 12/06/24 and 12/13/24 for Iron deficiency Anemia. HGB has been above 10 so has not received Retacrit. Comes for follow up. Feeling well. [facility] Medical History Chest pain Iron deficiency anemia Anemia in chronic kidney disease (CKD) Atrial flutter Chronic kidney disease (CKD) Kidney disease, chronic, stage III (GFR 30-59 ml/min) Hypoxemia Pneumonia of both lower lobes GERD (gastroesophageal reflux disease) COVID-19 Ischemic cardiomyopathy Carotid artery disease Chronic kidney disease (CKD) Paroxysmal atrial fibrillation Sick sinus syndrome Atherosclerosis of [place] coronary artery of [place] heart without angina pectoris Brain bleed Congestive heart failure Acute electrocardiogram changes Surgical History History of craniotomy History of permanent cardiac pacemaker placement History of coronary artery bypass graft x 3 History of brain surgery Family History Father CAD (coronary artery disease) Mother Heart disease Hypertension Heart failure Social History household members: spouse Smoking Status: Never smoker alcohol intake: never substance use type: does not use caffeine: No Intake Vital Signs 03/21/25 15:09 04/18/25 15:34 Height 5 ft 10 in 5 ft 10 in Weight: 63.248 kg BMI 20.0 BP 113/68 Blood Pressure Location Lt brachial Position Sitting Respiration 18 Pulse 78 Pulse Source Monitor Temp 98.6 F Temperature Source Temporal Artery Pulse Oximetry (%) 96 Oxygen Delivery Method room air Intake Is patient in pain?: No Allergies levofloxacin (From Levaquin) Allergy (Unknown, Verified 04/18/25 15:36) unknown Medications ?Medication ?Instructions ?Recorded ?Confirmed ?Type allopurinol 100 mg tablet 100 mg PO BID Gout 11/24/18 04/18/25 History atorvastatin 40 mg tablet 40 mg PO QHS Cholesterol 04/18/25 History albuterol sulfate 90 mcg/actuation 2 puff inhalation Q 4H PRN 12/25/20 04/18/25 Rx aerosol inhaler shortness of breath or wheez ing #8.5 grams cholecalciferol (vitamin D3) 50 50 mcg PO DAILY bone h ealth #1 TAB 03/09/22 04/18/25 Rx mcg (2,000 unit) tablet coenzyme Q10 100 mg tablet 100 mg PO DAILY general 11/1504/18/25 History ascorbic acid (vitamin C) 500 mg 500 mg PO DAILY 05/3104/18/25 History tablet mecobalamin (vitamin B12) 1,000 1,000 mcg sublingual D AILY 05/31/24 04/18/25 History mcg disintegrating tablet,sublingual pyridoxine (vitamin B6) 100 mg 100 mg PO DAILY 4 04/18/25 History tablet zinc gluconate 50 mg tablet 50 mg PO DAILY 05/31/24 History carvedilol 25 mg tablet 25 mg PO QHS 07/15/24 History ferrous sulfate 325 mg (65 mg 325 mg PO DAILY 07/15/24 04/18/25 History iron) tablet,delayed release apixaban 2.5 mg tablet 2.5 mg PO BID Blood thinner #180 12/04/24 04/18/25 Rx tabs sacubitril 49 mg-valsartan 51 mg 1 tab PO BID #180 tab s 12/04/24 04/18/25 Rx tablet (Entresto) nitroglycerin 0.4 mg sublingual 0.4 mg sublingual Q5M PRN 12/14/24 04/18/25 Rx tablet Cardiac/Chest Pain #30 tabs furosemide 40 mg tablet 40 mg PO DAILY PRN edema 04/18/25 History potassium chloride 20 mEq 20 meq PO QDAY PRN 02/21/25 04/18/25 History tablet,extended release multivitamin 1 tab PO QDAY 03/21/2504/18 History Have you fallen in the past year?: No Central Venous Access Central Venous Access: No Laboratory Tests 03/08/24 05/31/24 06/08/24 11:32 17:05 10:45 WBC Hgb Hct MCV Plt Count Sodium 140 Potassium Chloride 115 H Carbon Dioxide 17.0 L BUN 54 H Creatinine 2.57 H Glucose 102 Phosphorus 3.6 Magnesium 1.6 Iron 82 TIBC 240 L Iron Saturation 34.2 Erythropoietin 10.2 Ferritin 219 GGT 31 Lactate Dehydrogenase 197 Vitamin B12 > 2000 H 06/08/24 06/08/24 09/26/24 12:10 13:23 13:58 WBC 5.1 4.8 Hgb 9.5 L 10.5 L Hct 30.6 L 32.4 L MCV 105.5 H Plt Count 137 L 126 L Sodium Potassium 5.9 H 2.9 L Chloride 111 H Carbon Dioxide 27.0 BUN Creatinine Glucose Phosphorus Magnesium Iron TIBC Iron Saturation Erythropoietin Ferritin GGT Lactate Dehydrogenase Vitamin B12 03/21/25 04/18/25 14:06 14:45 WBC 4.5 4.4 Hgb 10.5 L 10.4 L Hct 31.9 L 31.4 L MCV Plt Count 122 L 135 L Sodium Potassium Chloride Carbon Dioxide BUN Creatinine Glucose Phosphorus Magnesium Iron TIBC Iron Saturation Erythropoietin Ferritin GGT Lactate Dehydrogenase Vitamin B12 Exam Physical Exam Narrative Elderly man, walking with a cane. Const alert, oriented x3 and no apparent distress Coding Level of Care Code Off vis,est,level 3 Exam Problem Focused Diagnoses Anemia in stage 4 chronic kidney disease N18.4; D63.1 Chronic kidney disease stage: stage 4 (severe) Assessment and Plan Assessment and Plan (1) Anemia in chronic kidney disease (CKD): Status: Chronic Qualifiers: Chronic kidney disease stage: stage 4 (severe) Qualified Code(s): N18.4- Chronic kidney disease, stage 4 (severe); D63.1 - Anemia in chronic kidney disease Comment: Anemia with CKD stage 4 HGB is greater than 10. Plan: To hold Retacrit till Hgb is less than 10. Plan Plan Details Follow Up: 4 Weeks ( ) Clinical Quality Measures Falls Risk Screening/Assistive Devices Have you fallen in the past year?: No 04/18/25 1554 D> Date _ Felipe Trivedi MD [employer] Signature: Date (if applicable) CC: Dr. Cheli Grace MD ~ [facility]06-25-2025 Progress note Author Felipe Trivedi [facility] Note Date/Time April 18, 2025 3:54 pm [facility] [address] [address] OFFICE VISIT Date of Service: 04/18/25 1532 MR#: [id number] Acct: [id number] Name: DARCY LUCAS Rep #: [id number] : 1935 From: Felipe Trivedi MD Age/Sex: 89/M Location: [facility] [place] Status: Signed HPI Subjective Date of Service 04/18/25 Chief Complaint F/u for anemia due to CKD. History of Present Illness 89-year-old man with history of chronic kidney disease, iron deficiency, chronicGI problems was found to have persistent anemia. Instructed to begin PO iron. June 21, 2024 began Retacrit injections, 20,000 units Qweek for Hgb <10 g/dL. HGB increased above 10 so did not receive Retacrit from 07/20/2024 to 10/31/24. Injectafer given 12/06/24 and 12/13/24 for Iron deficiency Anemia. HGB has been above 10 so has not received Retacrit. Comes for follow up. Feeling well. [facility] Medical History Chest pain Iron deficiency anemia Anemia in chronic kidney disease (CKD) Atrial flutter Chronic kidney disease (CKD) Kidney disease, chronic, stage III (GFR 30-59 ml/min) Hypoxemia Pneumonia of both lower lobes GERD (gastroesophageal reflux disease) COVID-19 Ischemic cardiomyopathy Carotid artery disease Chronic kidney disease (CKD) Paroxysmal atrial fibrillation Sick sinus syndrome Atherosclerosis of [place] coronary artery of [place] heart without angina pectoris Brain bleed Congestive heart failure Acute electrocardiogram changes Surgical History History of craniotomy History of permanent cardiac pacemaker placement History of coronary artery bypass graft x 3 History of brain surgery Family History Father CAD (coronary artery disease) Mother Heart disease Hypertension Heart failure Social History household members: spouse Smoking Status: Never smoker alcohol intake: never substance use type: does not use caffeine: No Intake Vital Signs 03/21/25 15:09 04/18/25 15:34 Height 5 ft 10 in 5 ft 10 in Weight: 63.248 kg BMI 20.0 BP 113/68 Blood Pressure Location Lt brachial Position Sitting Respiration 18 Pulse 78 Pulse Source Monitor Temp 98.6 F Temperature Source Temporal Artery Pulse Oximetry (%) 96 Oxygen Delivery Method room air Intake Is patient in pain?: No Allergies levofloxacin (From Levaquin) Allergy (Unknown, Verified 04/18/25 15:36) unknown Medications ?Medication ?Instructions ?Recorded ?Confirmed ?Type allopurinol 100 mg tablet 100 mg PO BID Gout 11/24/18 04/18/25 History atorvastatin 40 mg tablet 40 mg PO QHS Cholesterol 04/18/25 History albuterol sulfate 90 mcg/actuation 2 puff inhalation Q 4H PRN 12/25/20 04/18/25 Rx aerosol inhaler shortness of breath or wheez ing #8.5 grams cholecalciferol (vitamin D3) 50 50 mcg PO DAILY bone h ealth #1 TAB 03/09/22 04/18/25 Rx mcg (2,000 unit) tablet coenzyme Q10 100 mg tablet 100 mg PO DAILY general 11/1504/18/25 History ascorbic acid (vitamin C) 500 mg 500 mg PO DAILY 05/3104/18/25 History tablet mecobalamin (vitamin B12) 1,000 1,000 mcg sublingual D AILY 05/31/24 04/18/25 History mcg disintegrating tablet,sublingual pyridoxine (vitamin B6) 100 mg 100 mg PO DAILY 4 04/18/25 History tablet zinc gluconate 50 mg tablet 50 mg PO DAILY 05/31/24 History carvedilol 25 mg tablet 25 mg PO QHS 07/15/24 History ferrous sulfate 325 mg (65 mg 325 mg PO DAILY 07/15/24 04/18/25 History iron) tablet,delayed release apixaban 2.5 mg tablet 2.5 mg PO BID Blood thinner #180 12/04/24 04/18/25 Rx tabs sacubitril 49 mg-valsartan 51 mg 1 tab PO BID #180 tab s 12/04/24 04/18/25 Rx tablet (Entresto) nitroglycerin 0.4 mg sublingual 0.4 mg sublingual Q5M PRN 12/14/24 04/18/25 Rx tablet Cardiac/Chest Pain #30 tabs furosemide 40 mg tablet 40 mg PO DAILY PRN edema 04/18/25 History potassium chloride 20 mEq 20 meq PO QDAY PRN 02/21/25 04/18/25 History tablet,extended release multivitamin 1 tab PO QDAY 03/21/2504/18 History Have you fallen in the past year?: No Central Venous Access Central Venous Access: No Laboratory Tests 03/08/24 05/31/24 06/08/24 11:32 17:05 10:45 WBC Hgb Hct MCV Plt Count Sodium 140 Potassium Chloride 115 H Carbon Dioxide 17.0 L BUN 54 H Creatinine 2.57 H Glucose 102 Phosphorus 3.6 Magnesium 1.6 Iron 82 TIBC 240 L Iron Saturation 34.2 Erythropoietin 10.2 Ferritin 219 GGT 31 Lactate Dehydrogenase 197 Vitamin B12 > 2000 H 06/08/24 06/08/24 09/26/24 12:10 13:23 13:58 WBC 5.1 4.8 Hgb 9.5 L 10.5 L Hct 30.6 L 32.4 L MCV 105.5 H Plt Count 137 L 126 L Sodium Potassium 5.9 H 2.9 L Chloride 111 H Carbon Dioxide 27.0 BUN Creatinine Glucose Phosphorus Magnesium Iron TIBC Iron Saturation Erythropoietin Ferritin GGT Lactate Dehydrogenase Vitamin B12 03/21/25 04/18/25 14:06 14:45 WBC 4.5 4.4 Hgb 10.5 L 10.4 L Hct 31.9 L 31.4 L MCV Plt Count 122 L 135 L Sodium Potassium Chloride Carbon Dioxide BUN Creatinine Glucose Phosphorus Magnesium Iron TIBC Iron Saturation Erythropoietin Ferritin GGT Lactate Dehydrogenase Vitamin B12 Exam Physical Exam Narrative Elderly man, walking with a cane. Const alert, oriented x3 and no apparent distress Coding Level of Care Code Off vis,est,level 3 Exam Problem Focused Diagnoses Anemia in stage 4 chronic kidney disease N18.4; D63.1 Chronic kidney disease stage: stage 4 (severe) Assessment and Plan Assessment and Plan (1) Anemia in chronic kidney disease (CKD): Status: Chronic Qualifiers: Chronic kidney disease stage: stage 4 (severe) Qualified Code(s): N18.4- Chronic kidney disease, stage 4 (severe); D63.1 - Anemia in chronic kidney disease Comment: Anemia with CKD stage 4 HGB is greater than 10. Plan: To hold Retacrit till Hgb is less than 10. Plan Plan Details Follow Up: 4 Weeks ( ) Clinical Quality Measures Falls Risk Screening/Assistive Devices Have you fallen in the past year?: No 04/18/25 1554 <Electronically signed by Felipe Albarado D> Date _ Felipe Trivedi MD Cosigner Signature: Date (if applicable) CC: Dr. Cheli Grace MD ~ [place] [employer] Work Phone: 1(361) 243-997705-28-2025 Evaluation note* Diagnosis Onset Date Resolution Status Admit Date Anemia in chronic kidney disease (CKD) chronic March 21, 2025 2 :16pm Anemia in chronic kidney disease (CKD) chronic April 18, 2025 2:42pm Anemia in chronic kidney disease (CKD) chronic May 16, 2025 12:37pm Anemia in chronic kidney disease (CKD) chronic June 13 1:37pm Chest pain acute July 02, 2025 1:25pm Hyperlipidemia acute July 02, 2025 1:25pm Paroxysmal atrial fibrillation acute July 02, 2025 1:25pm Ischemic cardiomyopathy chronic S eptember 2024 1:25pm Sick sinus syndrome chronic Septe mber 2024 1:25pm Atherosclerosis of [place] coronary artery of [place] heart without angina inactive July 022024 1:25pm [facility] Work Phone: 1([phone]) 375-749305-28-2025 Evaluation note* Diagnosis Onset Date Resolution Status Admit Date Anemia in chronic kidney disease (CKD) chronic March 21, 2025 2 :16pm Anemia in chronic kidney disease (CKD) chronic April 18, 2025 2:42pm Anemia in chronic kidney disease (CKD) chronic May 16, 2025 12:37pm Anemia in chronic kidney disease (CKD) chronic June 13 1:37pm Pacemaker acute July 02, 2025 1:24pm Ischemic cardiomyopathy chronic S eptember 2024 1:24pm Paroxysmal atrial fibrillation chron ic July 02, 2025 1:24pm Sick sinus syndrome chronic Septe mber 2024 1:24pm Hyperlipidemia acute July 02, 2025 1:25pm Ischemic cardiomyopathy chronic S eptember 2024 1:25pm Paroxysmal atrial fibrillation chron ic July 02, 2025 1:25pm Sick sinus syndrome chronic Septe mber 2024 1:25pm Atherosclerosis of [place] coronary artery of [place] heart without angina inactive July 022024 1:25pm [employer] [facility] Work Phone: 1(216) 930-903205-28-2025 [facility] [address] [place] [address] OFFICE VISIT Date of Service: 03/21/25 1508 MR#: [id number] Acct: [id number] Name: DARCY LUCAS Rep #: [id number] : 1935 From: Felipe Trivedi MD Age/Sex: 89/M Location: [facility] [place], [place] Status: Signed HPI Subjective Date of Service 03/21/25 Chief Complaint F/u for anemia due to CKD. History of Present Illness 89-year-old man with history of chronic kidney disease, iron deficiency, chronicGI problems was found to have persistent anemia. Instructed to begin PO iron. June 21, 2024 began Retacrit injections, 20,000 units Qweek for Hgb <10 g/dL. HGB increased above 10 so did not receive Retacrit from 07/20/2024 to 10/31/24. Injectafer given 12/06/24 and 12/13/24 for Iron deficiency Anemia. HGB has been above 10 so has not received Retacrit. Comes for follow up. Feeling well. [facility] Medical History Chest pain Iron deficiency anemia Anemia in chronic kidney disease (CKD) Atrial flutter Chronic kidney disease (CKD) Kidney disease, chronic, stage III (GFR 30-59 ml/min) Hypoxemia Pneumonia of both lower lobes GERD (gastroesophageal reflux disease) COVID-19 Ischemic cardiomyopathy Carotid artery disease Chronic kidney disease (CKD) Paroxysmal atrial fibrillation Sick sinus syndrome Atherosclerosis of [place] coronary artery of [place] heart without angina pectoris Brain bleed Congestive heart failure Acute electrocardiogram changes Surgical History History of craniotomy History of permanent cardiac pacemaker placement History of coronary artery bypass graft x 3 History of brain surgery Family History Father CAD (coronary artery disease) Mother Heart disease Hypertension Heart failure Social History household members: spouse Smoking Status: Never smoker alcohol intake: never substance use type: does not use caffeine: No ROS Constitutional Constitutional: Reports systems reviewed and no addt'l complaints, except as documented Eyes Eyes: Reports systems reviewed and no addt'l complaints, except as documented ENT HEENT: Reports systems reviewed and no addt'l complaints, except as documented Cardiovascular Cardiovascular: Reports systems reviewed and no addt'l complaints, except as documented Respiratory/Chest Respiratory/Chest: Reports systems reviewed and no addt'l complaints, except as documented Gastrointestinal Gastrointestinal: Reports systems reviewed and no addt'l complaints, except as documented Genitourinary Genitourinary: Reports systems reviewed and no addt'l complaints, except as documented Musculoskeletal Musculoskeletal: Reports systems reviewed and no addt'l complaints, except as documented Integumentary Integumentary: Reports systems reviewed and no addt'l complaints, except as documented Neurologic Neurologic: Reports systems reviewed and no addt'l complaints, except as documented Psychiatric Psychiatric: Reports systems reviewed and no addt'l complaints, except as documented Endocrine Endocrinology: Reports systems reviewed and no addt'l complaints, except as documented Hematologic/Lymphatic Hematologic/Lymphatic: Reports systems reviewed and no addt'l complaints, exceptas documented Allergic/Immunologic Allergic/Immunologic: Reports systems reviewed and no addt'l complaints, except as documented Intake Vital Signs 02/21/25 13:37 03/21/25 15:09 Height 5 ft 10 in 5 ft 10 in Weight: 65.828 kg BMI 20.8 BP 129/74 H Blood Pressure Location Lt brachial Position Sitting Respiration 18 Pulse 83 Pulse Source Monitor Temp 97.6 F L Temperature Source Temporal Artery Pulse Oximetry (%) 98 Oxygen Delivery Method room air Intake Is patient in pain?: No Allergies levofloxacin (From Levaquin) Allergy (Unknown, Verified 03/21/25 15:12) unknown Medications ?Medication ?Instructions ?Recorded ?Confirmed ?Type allopurinol 100 mg tablet 100 mg PO BID Gout 11/24/18 03/21/25 History atorvastatin 40 mg tablet 40 mg PO QHS Cholesterol 03/21/25 History albuterol sulfate 90 mcg/actuation 2 puff inhalation Q 4H PRN 12/25/20 03/21/25 Rx aerosol inhaler shortness of breath or wheez ing #8.5 grams cholecalciferol (vitamin D3) 50 50 mcg PO DAILY bone h ealth #1 TAB 03/09/22 03/21/25 Rx mcg (2,000 unit) tablet coenzyme Q10 100 mg tablet 100 mg PO DAILY general 11/1503/21/25 History ascorbic acid (vitamin C) 500 mg 500 mg PO DAILY 05/3103/21/25 History tablet mecobalamin (vitamin B12) 1,000 1,000 mcg sublingual D AILY 05/31/24 03/21/25 History mcg disintegrating tablet,sublingual pyridoxine (vitamin B6) 100 mg 100 mg PO DAILY 4 03/21/25 History tablet zinc gluconate 50 mg tablet 50 mg PO DAILY 05/31/24 History carvedilol 25 mg tablet 25 mg PO QHS 07/15/24 History ferrous sulfate 325 mg (65 mg 325 mg PO DAILY 07/15/24 03/21/25 History iron) tablet,delayed release apixaban 2.5 mg tablet 2.5 mg PO BID Blood thinner #180 12/04/24 03/21/25 Rx tabs sacubitril 49 mg-valsartan 51 mg 1 tab PO BID #180 tab s 12/04/24 03/21/25 Rx tablet (Entresto) nitroglycerin 0.4 mg sublingual 0.4 mg sublingual Q5M PRN 12/14/24 03/21/25 Rx tablet Cardiac/Chest Pain #30 tabs furosemide 40 mg tablet 40 mg PO DAILY PRN edema 03/21/25 History potassium chloride 20 mEq 20 meq PO QDAY PRN 02/21/25 03/21/25 History tablet,extended release multivitamin 1 tab PO QDAY 03/21/2503/21 History Have you fallen in the past year?: No Central Venous Access Central Venous Access: No Laboratory Tests 03/08/24 05/31/24 06/08/24 11:32 17:05 10:45 WBC Hgb Hct MCV Plt Count Sodium 140 Potassium Chloride 115 H Carbon Dioxide 17.0 L BUN 54 H Creatinine 2.57 H Glucose 102 Phosphorus 3.6 Magnesium 1.6 Iron 82 TIBC 240 L Iron Saturation 34.2 Erythropoietin 10.2 Ferritin 219 GGT 31 Lactate Dehydrogenase 197 Vitamin B12 > 2000 H 06/08/24 06/08/24 09/26/24 12:10 13:23 13:58 WBC 5.1 4.8 Hgb 9.5 L 10.5 L Hct 30.6 L 32.4 L MCV 105.5 H Plt Count 137 L 126 L Sodium Potassium 5.9 H 2.9 L Chloride 111 H Carbon Dioxide 27.0 BUN Creatinine Glucose Phosphorus Magnesium Iron TIBC Iron Saturation Erythropoietin Ferritin GGT Lactate Dehydrogenase Vitamin B12 01/24/25 02/21/25 03/21/25 13:04 12:41 14:06 WBC 6.0 4.3 L 4.5 Hgb 11.3 L 10.1 L 10.5 L Hct 33.8 L 30.2 L 31.9 L MCV Plt Count 130 L 116 L 122 L Sodium Potassium Chloride Carbon Dioxide BUN Creatinine Glucose Phosphorus Magnesium Iron 67 TIBC Iron Saturation 31.8 Erythropoietin Ferritin 825 H GGT Lactate Dehydrogenase Vitamin B12 Exam Physical Exam Narrative Elderly man. 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 Plan: To hold Retacrit till Hgb is less than 10. Plan Plan Details Follow Up: 4 Weeks Clinical Quality Measures Falls Risk Screening/Assistive Devices Have you fallen in the past year?: No 03/21/25 1540 D> Date _ Felipe Trivedi MD Cosigner Signature: Date (if applicable) CC: Dr. Cheli Grace MD; Dr. Stefany Norwood MD ~ [facility]05-28-2025 Progress note Author Felipe Trivedi [facility] Note Date/Time March 21, 2025 3:40p m [facility] [address] [place] [address] OFFICE VISIT Date of Service: 03/21/25 1508 MR#: [id number] Acct: [id number] Name: DARCY LUCAS Rep #: [id number] : 1935 From: Felipe Trivedi MD Age/Sex: 89/M Location: [facility] [place] Status: Signed HPI Subjective Date of Service 03/21/25 Chief Complaint F/u for anemia due to CKD. History of Present Illness 89-year-old man with history of chronic kidney disease, iron deficiency, chronicGI problems was found to have persistent anemia. Instructed to begin PO iron. June 21, 2024 began Retacrit injections, 20,000 units Qweek for Hgb <10 g/dL. HGB increased above 10 so did not receive Retacrit from 07/20/2024 to 10/31/24. Injectafer given 12/06/24 and 12/13/24 for Iron deficiency Anemia. HGB has been above 10 so has not received Retacrit. Comes for follow up. Feeling well. [facility] Medical History Chest pain Iron deficiency anemia Anemia in chronic kidney disease (CKD) Atrial flutter Chronic kidney disease (CKD) Kidney disease, chronic, stage III (GFR 30-59 ml/min) Hypoxemia Pneumonia of both lower lobes GERD (gastroesophageal reflux disease) COVID-19 Ischemic cardiomyopathy Carotid artery disease Chronic kidney disease (CKD) Paroxysmal atrial fibrillation Sick sinus syndrome Atherosclerosis of [place] coronary artery of [place] heart without angina pectoris Brain bleed Congestive heart failure Acute electrocardiogram changes Surgical History History of craniotomy History of permanent cardiac pacemaker placement History of coronary artery bypass graft x 3 History of brain surgery Family History Father CAD (coronary artery disease) Mother Heart disease Hypertension Heart failure Social History household members: spouse Smoking Status: Never smoker alcohol intake: never substance use type: does not use caffeine: No ROS Constitutional Constitutional: Reports systems reviewed and no addt'l complaints, except as documented Eyes Eyes: Reports systems reviewed and no addt'l complaints, except as documented ENT HEENT: Reports systems reviewed and no addt'l complaints, except as documented Cardiovascular Cardiovascular: Reports systems reviewed and no addt'l complaints, except as documented Respiratory/Chest Respiratory/Chest: Reports systems reviewed and no addt'l complaints, except as documented Gastrointestinal Gastrointestinal: Reports systems reviewed and no addt'l complaints, except as documented Genitourinary Genitourinary: Reports systems reviewed and no addt'l complaints, except as documented Musculoskeletal Musculoskeletal: Reports systems reviewed and no addt'l complaints, except as documented Integumentary Integumentary: Reports systems reviewed and no addt'l complaints, except as documented Neurologic Neurologic: Reports systems reviewed and no addt'l complaints, except as documented Psychiatric Psychiatric: Reports systems reviewed and no addt'l complaints, except as documented Endocrine Endocrinology: Reports systems reviewed and no addt'l complaints, except as documented Hematologic/Lymphatic Hematologic/Lymphatic: Reports systems reviewed and no addt'l complaints, exceptas documented Allergic/Immunologic Allergic/Immunologic: Reports systems reviewed and no addt'l complaints, except as documented Intake Vital Signs 02/21/25 13:37 03/21/25 15:09 Height 5 ft 10 in 5 ft 10 in Weight: 65.828 kg BMI 20.8 BP 129/74 H Blood Pressure Location Lt brachial Position Sitting Respiration 18 Pulse 83 Pulse Source Monitor Temp 97.6 F L Temperature Source Temporal Artery Pulse Oximetry (%) 98 Oxygen Delivery Method room air Intake Is patient in pain?: No Allergies levofloxacin (From Levcompropago) Allergy (Unknown, Verified 03/21/25 15:12) unknown Medications ?Medication ?Instructions ?Recorded ?Confirmed ?Type allopurinol 100 mg tablet 100 mg PO BID Gout 11/24/18 03/21/25 History atorvastatin 40 mg tablet 40 mg PO QHS Cholesterol 03/21/25 History albuterol sulfate 90 mcg/actuation 2 puff inhalation Q 4H PRN 12/25/20 03/21/25 Rx aerosol inhaler shortness of breath or wheez ing #8.5 grams cholecalciferol (vitamin D3) 50 50 mcg PO DAILY bone h ealth #1 TAB 03/09/22 03/21/25 Rx mcg (2,000 unit) tablet coenzyme Q10 100 mg tablet 100 mg PO DAILY general 11/1503/21/25 History ascorbic acid (vitamin C) 500 mg 500 mg PO DAILY 05/3103/21/25 History tablet mecobalamin (vitamin B12) 1,000 1,000 mcg sublingual D AILY 05/31/24 03/21/25 History mcg disintegrating tablet,sublingual pyridoxine (vitamin B6) 100 mg 100 mg PO DAILY 4 03/21/25 History tablet zinc gluconate 50 mg tablet 50 mg PO DAILY 05/31/24 History carvedilol 25 mg tablet 25 mg PO QHS 07/15/24 History ferrous sulfate 325 mg (65 mg 325 mg PO DAILY 07/15/24 03/21/25 History iron) tablet,delayed release apixaban 2.5 mg tablet 2.5 mg PO BID Blood thinner #180 12/04/24 03/21/25 Rx tabs sacubitril 49 mg-valsartan 51 mg 1 tab PO BID #180 tab s 12/04/24 03/21/25 Rx tablet (Entresto) nitroglycerin 0.4 mg sublingual 0.4 mg sublingual Q5M PRN 12/14/24 03/21/25 Rx tablet Cardiac/Chest Pain #30 tabs furosemide 40 mg tablet 40 mg PO DAILY PRN edema 03/21/25 History potassium chloride 20 mEq 20 meq PO QDAY PRN 02/21/25 03/21/25 History tablet,extended release multivitamin 1 tab PO QDAY 03/21/2503/21 History Have you fallen in the past year?: No Central Venous Access Central Venous Access: No Laboratory Tests 03/08/24 05/31/24 06/08/24 11:32 17:05 10:45 WBC Hgb Hct MCV Plt Count Sodium 140 Potassium Chloride 115 H Carbon Dioxide 17.0 L BUN 54 H Creatinine 2.57 H Glucose 102 Phosphorus 3.6 Magnesium 1.6 Iron 82 TIBC 240 L Iron Saturation 34.2 Erythropoietin 10.2 Ferritin 219 GGT 31 Lactate Dehydrogenase 197 Vitamin B12 > 2000 H 06/08/24 06/08/24 09/26/24 12:10 13:23 13:58 WBC 5.1 4.8 Hgb 9.5 L 10.5 L Hct 30.6 L 32.4 L MCV 105.5 H Plt Count 137 L 126 L Sodium Potassium 5.9 H 2.9 L Chloride 111 H Carbon Dioxide 27.0 BUN Creatinine Glucose Phosphorus Magnesium Iron TIBC Iron Saturation Erythropoietin Ferritin GGT Lactate Dehydrogenase Vitamin B12 01/24/25 02/21/25 03/21/25 13:04 12:41 14:06 WBC 6.0 4.3 L 4.5 Hgb 11.3 L 10.1 L 10.5 L Hct 33.8 L 30.2 L 31.9 L MCV Plt Count 130 L 116 L 122 L Sodium Potassium Chloride Carbon Dioxide BUN Creatinine Glucose Phosphorus Magnesium Iron 67 TIBC Iron Saturation 31.8 Erythropoietin Ferritin 825 H GGT Lactate Dehydrogenase Vitamin B12 Exam Physical Exam Narrative Elderly man. 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 Plan: To hold Retacrit till Hgb is less than 10. Plan Plan Details Follow Up: 4 Weeks Clinical Quality Measures Falls Risk Screening/Assistive Devices Have you fallen in the past year?: No 03/21/25 1100 <Electronically signed by Felipe Morillo> Date _ Felipe Trivedi MD Cosigner Signature: Date (if applicable) CC: Dr. Cheli Grace MD; Dr. Stefany Norwood MD ~ [facility] Work Phone: 1(170) 887-208404-30-2025 Evaluation note* Diagnosis Onset Date Resolution Status Admit Date Anemia in chronic kidney disease (CKD) chronic February 21, 2025 12:44pm Anemia in chronic kidney disease (CKD) chronic March 21, 2025 2 :16pm Anemia in chronic kidney disease (CKD) chronic April 18, 2025 2:42pm Anemia in chronic kidney disease (CKD) chronic May 16, 2025 12:37pm [employer] [employer] [facility] Work Phone: 1(879) 446-680004-02-2025 Evaluation note* Diagnosis Onset Date Resolution Status Admit Date Anemia in chronic kidney disease (CKD) chronic January 24, 2025 12:56pm Anemia in chronic kidney disease (CKD) chronic February 21, 2025 12:44pm Anemia in chronic kidney disease (CKD) chronic March 21, 2025 2 :16pm Anemia in chronic kidney disease (CKD) chronic April 18, 2025 2:42pm Anemia in chronic kidney disease (CKD) chronic May 16, 2025 12:37pm [place] [employer] [facility] Work Phone: 1(985) 160-851103-05-2025 Evaluation note* Diagnosis Onset Date Resolution Status Admit Date Iron deficiency anemia acute Ma [facility] 2024 9:49am Anemia in chronic kidney dis ease (CKD) chronic December 27, 2024 9:49am Chest pain acute December 28 1:56pm Hyperlipidemia acute December 28, 2024 1:56pm Paroxysmal atrial fibrillation acute December 28, 2024 1:56pm Atherosclerosis of [place] coronary artery of [place] heart without angina inactive December 28, 2024 1:56pm Ischemic cardiomyopathy inactive 2024 1:56pm Sick sinus syndrome inactive December 28, 2024 1:56pm Anemia in chronic kidney dis ease (CKD) chronic January 24, 2025 12:56pm Anemia in chronic kidney dis ease (CKD) chronic February 21, 2025 12:44pm Anemia in chronic kidney dis ease (CKD) chronic March 21, 2025 2 :16pm Anemia in chronic kidney dis ease (CKD) chronic April 18, 2025 2:42pm [place] [employer] Work Phone: [phone]) [phone] Evaluation note* Diagnosis Onset Date Resolution Status Admit Date Iron deficiency anemia acute Fe bruary 2024 1:06pm Anemia in chronic kidney disease (CKD) chronic November 29 1:06pm Hypokalemia chronic November 29, 2024 1:06pm Iron deficiency anemia acute Ma rc 2024 9:49am Anemia in chronic kidney disease (CKD) chronic December 27, 2024 9:49am Chest pain acute December 28 1:56pm Hyperlipidemia acute December 28, 2024 1:56pm Paroxysmal atrial fibrillation acute December 28, 2024 1:56pm Atherosclerosis of [place] coronary artery of [place] heart without angina inactive December 28, 2024 1:56pm Ischemic cardiomyopathy inactive M arch 2024 1:56pm Sick sinus syndrome inactive December 28, 2024 1:56pm Anemia in chronic kidney disease (CKD) chronic January 24, 2025 12:56pm Anemia in chronic kidney disease (CKD) chronic February 21, 2025 12:44pm Anemia in chronic kidney disease (CKD) chronic March 21, 2025 2 :16pm [place] [employer] Work Phone: 1(533) 559-221512-03-2024 Evaluation note* Diagnosis Onset Date Resolution Status Admit Date Anemia in chronic kidney disease (CKD) chronic September 26 1:49pm Hypokalemia chronic September 26, 2024 1:49pm Anemia in chronic kidney disease (CKD) chronic October 31 10:42am Hypokalemia chronic October 31, 2024 10:42am Iron deficiency anemia acute Fe bru2024 1:06pm Anemia in chronic kidney disease (CKD) chronic November 29 1:06pm Hypokalemia chronic November 29, 2024 1:06pm Iron deficiency anemia acute [facility] 2024 9:49am Anemia in chronic kidney disease (CKD) chronic December 27, 2024 9:49am Chest pain acute December 28 1:56pm Hyperlipidemia acute December 28, 2024 1:56pm Paroxysmal atrial fibrillation acute December 28, 2024 1:56pm Atherosclerosis of [place] coronary artery of [place] heart without angina inactive December 28, 2024 1:56pm Ischemic cardiomyopathy inactive M arch 2024 1:56pm Sick sinus syndrome inactive December 28, 2024 1:56pm [facility] Work Phone: 1(991) 823-168509-23-2024 [facility] Discharge summary Author Sanjeev Sandhu [facility] November 30, 2023 6:03pm Note Date/Time November 30, 2023 3 :19pm [facility] Medical Records Department [address] [place] [address] Instructions for Home/Discharge Instructions 11/30/23 1519 MR#: [id number] Acct: [id number] Name: DARCY LUCAS Rep #:[id number] : 1935 88 From: Sanjeev curtis DO PCP: Dr. Cheli Grace MD Status:ADM IN Discharge Instructions Diet Discharge Diet: No restrictions Activity Discharge Activity: No Restrictions Weight Bearing Status: Full weight bearing Follow Up Care Test Results: Test results from this visit will be discussed in further detail at your follow- up appointment, if applicable. Discharge Plan Admission Admit Date/Time: 11/27/23 15:32 Primary Reason for Your Visit: Shortness of breath with exertion Attending Provider: Sanjeev Sandhu Primary Care Provider: Cheli Grace Consulting Providers: Dav Renteria; Gómez Nowak; Jose Soto Instructions Additional Instructions / Restrictions: Start taking Lasix and spironolactone as noted below. Follow-up with cardiologyin the office as directed by them. Discharge Orders/Prescriptions Prescriptions: New furosemide 40 mg Tablet 40 mg PO DAILY 30 Days Qty: 30 0RF spironolactone 25 mg Tablet 12.5 mg PO DAILY 30 Days Qty: 15 0RF Continued mecobalamin (vitamin B12) 1,000 mcg tablet,disintegrating 1,000 mcg SUBLINGUAL DAILY Rx Instructions: place tablet under tongue and allow to dissolve for at least30 secs before swallowing. pt takes in the am ascorbate calcium (vitamin C) 500 mg tablet 500 mg PO DAILY albuterol sulfate 90 mcg/actuation HFA aerosol inhaler 2 puff INHALATION Q4H PRN (Reason: shortness of breath or wheezing) Qty: 8.5 6RF Rx Instructions: administer with spacer coenzyme Q10 100 mg tablet 100 mg PO DAILY Rx Instructions: pt takes in the am atorvastatin 40 MG tablet 40 mg PO QHS allopurinol 100 MG tablet 100 mg PO BID pyridoxine (vitamin B6) 100 MG tablet 100 mg PO DAILY Rx Instructions: pt takes in the am carvedilol 25 mg tablet 25 mg PO BID Rx Instructions: must administer with a meal/food Entresto 49-51 mg tablet 1 tab PO BID magnesium oxide 400 mg (241.3 mg magnesium) tablet 400 mg PO DAILY Patient Comments: TAKE 1 TABLET BY MOUTH ONCE DAILY sodium bicarbonate 650 mg tablet 650 mg PO DAILY Lactobacillus acidophilus [Probiotic Acidophilus] 1 cap PO SUTUTHSA cholecalciferol (vitamin D3) 50 mcg (2,000 unit) tablet 50 mcg PO DAILY Qty: 1 0RF nitroglycerin 0.4 mg tablet, sublingual 0.4 mg sublingual Q5M PRN (Reason: Cardiac/Chest Pain) Qty: 30 2RF apixaban 2.5 mg tablet 2.5 mg PO BID Qty: 180 4RF Discontinued potassium chloride 20 mEq tablet extended release 20 meq PO MOWEFR torsemide 20 mg tablet 20 mg PO MOWEFR Referrals / Follow Up: Cheli Grace MD [Primary Care Provider] - Disposition Disposition (needs filled in before D/C Order can be placed): Home Health Service 11/30/23 1803<Electronically signed by Sanjeev Sandhu DO>Sanjeev Sandhu DO CC: Dr. Cheli Grace MD; Dr. Gómez Nowak DO; Dr. Jose Soto MD; Dr. Dav Renteria MD ~ Signed [facility] Work Phone: 1(290) 310-762302-06-2024 Discharge summary [facility] November 30, 2023 6:27pm Note Date/Time November 30, 2023 3 :19pm [facility] Medical Records Department [address] [place] [address] Discharge Summary 11/30/23 1519 MR#: [id number] Acct: [id number] Name: DARCY LUCAS Rep #:[id number] : 1935 88 From: Sanjeev curtis DO PCP: Dr. Cheli Grace MD Status:ADM IN Location: [place] [id number] Providers Date of Admission: 11/27/23 Date of Discharge: 11/30/23 Primary Care Physician: Cheli Grace MD Consultations 11/30/23 13:00 Consult: Cardiology Routine Consulting Provider: Jose Soto Reason for Consult: HFrEF exacerbation, follows w/ Dr. Harvey, homegoing med recs EMERGENT Consult: No Notified: Yes Date Notified: 11/30/23 Time Notified: 13:00 Method of Notification: Text Reason For Visit: CHF EXACERBATION Diagnosis Discharge Diagnosis (1) Pleural effusion, right: Status: Acute Code(s): J90 - Pleural effusion, not elsewhere classified (2) Acute on chronic HFrEF (heart failure with reduced ejection fraction): Status: Acute Code(s): I50.23 - Acute on chronic systolic (congestive) heart failure Medications at Discharge Home Medications allopurinol 100 mg tablet 100 mg PO BID Gout 11/24/18 atorvastatin 40 mg tablet 40 mg PO QHS Cholesterol 11/24/18 pyridoxine (vitamin B6) 100 mg tablet 100 mg PO DAILY supplement 11/24/18 albuterol sulfate 90 mcg/actuation aerosol inhaler 2 puff inhalation Q4H PRN shortness of breath or wheezing #8.5 grams 12/25/20 ascorbate calcium (vitamin C) 500 mg tablet 500 mg PO DAILY supplement 12/25/20 mecobalamin (vitamin B12) 1,000 mcg disintegrating tablet,sublingual 1,000 mcg sublingual DAILY supplement 12/25/20 cholecalciferol (vitamin D3) 50 mcg (2,000 unit) tablet 50 mcg PO DAILY bone health #1 TAB 03/09/22 coenzyme Q10 100 mg tablet 100 mg PO DAILY general 09/24/22 nitroglycerin 0.4 mg sublingual tablet 0.4 mg sublingual Q5M PRN Cardiac/Chest Pain #30 tabs 09/02/23 apixaban 2.5 mg tablet 2.5 mg PO BID Blood thinner #180 tabs 09/30/23 Lactobacillus acidophilus 1 cap PO SUTUTHSA PROBIOTIC 11/17/23 carvedilol 25 mg tablet 25 mg PO BID blood pressure 11/17/23 magnesium oxide 400 mg (241.3 mg magnesium) tablet 400 mg PO DAILY SUPPLEMENT 11/17/23 sacubitril 49 mg-valsartan 51 mg tablet (Entresto) 1 tab PO BID BLOOD PRESSURE 11/17/23 sodium bicarbonate 650 mg tablet 650 mg PO DAILY SUPPLEMENT 11/17/23 furosemide 40 mg tablet 40 mg PO DAILY 30 days #30 tabs 11/30/23 spironolactone 25 mg tablet 12.5 mg (1/2 x 25 mg) PO DAILY 30 days #15 tabs 11/30/23 Hospital Course Operations None Procedures EKG, Thoracentesis, Transthoracic echo and - (Chest x-ray x 2) Summary of Care Provided Minutes Spent on Discharge: 35 Hospital Course: Patient is an 88 year old male who presented to [facility] ED on11/27/2023 with worsening shortness of breath on exertion. Hospital course as noted below. Discharged home with home health care in stable condition on 11/30. 1. Acute exacerbation of HFrEF, improved; acute hypoxia, resolved CXR on admit showed moderate right pleural effusion, small left pleural effusion. BNP > 5000. Recent TTE on 11/10/23 showed EF 20%, severe global hypokinesis of LV, moderate pulmonary HTN, no change from previous TTE from 07/2022. Unclear trigger for current exacerbation. Was diuresed with IV lasix 40 mg BID on admit from start of admission through 11/29 with very good urine output, transitioned to p.o. Lasix 40 mg daily on day of discharge. Acute hypoxia presumed secondary to volume overload, improved with diuresis and after thoracentesis as noted below. ? Cardiology followed. Okay for discharge home on p.o. Lasix 40 mg daily and spironolactone 12.5 mg daily. Will continue home Entresto and carvedilol as well. Passed O2 ambulatory evaluation prior to discharge, no need for home oxygen. Outpatient follow-up with Dr. Harvey in January. 2. Right-sided pleural effusion, resolved CXR with right effusion on admit as noted above. Presumed secondary to heart failure. ? S/p thoracentesis with radiology on 11/29, 710 cc of clear yellow fluid drained,fluid studies consistent with transudative effusion presumed secondary to heart failure. Repeat CXR post thoracentesis with no evidence of pneumothorax. 3. Chronic macrocytic anemia Hemoglobin 9.5 on admit, baseline hemoglobin 9-10. Mild downtrend in hemoglobinto 8.3 on 11/29. Suspect due to lab draws, acute HFrEF exacerbation. Iron studies 11/29 consistent with iron deficiency anemia. ? Given dose of IV iron 200 mg on day of discharge. Recommend repeating CBC in 1 to 2 weeks to ensure it remains stable. Can consider repeat iron studies in the next few months and consider further IV iron doses as needed. 4. Debility, degenerative arthritis - PT/OT/CM followed. Discharged home with home health care. 5. Hypokalemia - Presumed secondary to heavy diuresis with Lasix. Repleted as needed. Notablystarted on spironolactone during this admission, home potassium supplement 20 mEq daily held on discharge. Chronic medical conditions: - CKD stage IV: Creatinine at baseline, monitor daily BMP. - Paroxysmal Afib: Continue home Coreg and Eliquis. 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 - Chronic gout: Continue home allopurinol. - GERD: Continue home PPI. Total clinical time spent by myself addressing the patient's discharge needs: 35minutes. Physical Exam Const alert, no apparent distress and average body habitus Constitutional Narrative: Pleasant elderly male, thin appearing, fatigued appearing, otherwise sitting comfortably in bedside chair, conversing normally, no acute distress. General Appearance: cooperative and comfortable HEENT normocephalic, head/scalp atraumatic, hearing grossly normal bilaterally, nasal mucous membranes and turbinates normal and moist oral mucous membranes Eyes PERRL, EOMs intact bilaterally and conjunctivae normal Neck full ROM, no lymphadenopathy and supple Lymph Lymphatic: no lymphadenopathy noted Chest inspection of chest normal Resp Resp Narrative: Breathing comfortably on room air, no increased work of breathing noted. Mildlydiminished breath sounds bilaterally, no wheezing or crackles noted. Cardio no murmurs and peripheral pulses 2+ throughout Cardio Narrative: A-fib, rate controlled. GI normal to inspection, nondistended, normoactive bowel sounds, soft to palpation,non-tender and non-distended Back/Spine normal ROM Extremity normal to inspection and full ROM Skin no rashes or lesions noted Neuro no focal motor deficits and no sensory deficits noted Speech: speech normal Psych mental status grossly normal Weight / BMI Weight Weight: 64.8 kg Body Mass Index (BMI) 20.5 ABG / Lab / Microbiology Data 11/30/23 04:43 11/30/23 04:43 Laboratory: Laboratory Results - last 24 hr 11/29/23 04:21: Iron 34 L, TIBC 254, Iron Saturation 13.4 L, Ferritin 67, Vitamin B12 1171 H, Folate 10.10 11/29/23 13:26: Fluid Source THORACENTESIS, Fluid Color YELLOW, Fluid AppearanceCLEAR, Fluid WBC 0.060, Fluid RBC 12, Fluid Tot Cell Count 0.071, Fld Polynuclear WBCs # 0.004, Fld Polynuclear WBCs % 6.6, Fluid Mononuclear WBCs 0.056, Fld Mononuclear WBCs % 93.4, Fluid Neutrophils 12, Fluid Lymphocytes 49, Fluid Monocytes 29, Fluid Macrophages 10, Fl Pathologist Comment May follow, Fluid Glucose 142 H, Fluid Total Protein 2.3, Fluid LDH 85, Fluid Comment 2 SEE COMMENT 11/30/23 04:43: WBC 4.6, RBC 2.55 L, Hgb 8.4 L, Hct 26.7 L, MCV 104.7 H, MCH 32.9 H, MCHC 31.5 L, RDW Std Deviation 65.1 H, RDW Coeff of Vanesa 17.2 H, Plt Count 130 L, MPV 10.3, Differential Comment SCANNED, Sodium 144, Potassium 3.2 L, Chloride 113 H, Carbon Dioxide 28.0, Anion Gap 3 L, BUN 44 H, Creatinine 2.16 H, Estim Creat Clear Calc 22.76, Est GFR (MDRD) Af Amer 37 L, Est GFR (MDRD) Non-Af 31 L, BUN/Creatinine Ratio 20.4 H, Glucose 106, Calcium 9.0 Microbiology: Microbiology 11/29/23 13:26 Fluid - Pleural (Lung) Gram Stain - Final 11/29/23 13:26 Fluid - Pleural (Lung) Body Fluid Culture - Preliminary No growth-Final to follow 11/28/23 14:15 Stool Clostridioides difficile (PCR) - Final Meaningful Use Info Meaningful Use Diagnoses (Choose all that apply): CHF CHF ROHAN/ARB ordered at discharge?: Yes Documented LVEF (%): 20 Discharge Plan Admission Admit Date/Time: 11/27/23 15:32 Primary Reason for Your Visit: Shortness of breath with exertion Attending Provider: Sanjeev Sandhu Primary Care Provider: Cheli Grace Consulting Providers: Dav Renteria; Gómez Nowak; Jose Soto Instructions Additional Instructions / Restrictions: Start taking Lasix and spironolactone as noted below. Follow-up with cardiologyin the office as directed by them. Discharge Orders/Prescriptions Prescriptions: New furosemide 40 mg Tablet 40 mg PO DAILY 30 Days Qty: 30 0RF spironolactone 25 mg Tablet 12.5 mg PO DAILY 30 Days Qty: 15 0RF Continued mecobalamin (vitamin B12) 1,000 mcg tablet,disintegrating 1,000 mcg SUBLINGUAL DAILY Rx Instructions: place tablet under tongue and allow to dissolve for at least30 secs before swallowing. pt takes in the am ascorbate calcium (vitamin C) 500 mg tablet 500 mg PO DAILY albuterol sulfate 90 mcg/actuation HFA aerosol inhaler 2 puff INHALATION Q4H PRN (Reason: shortness of breath or wheezing) Qty: 8.5 6RF Rx Instructions: administer with spacer coenzyme Q10 100 mg tablet 100 mg PO DAILY Rx Instructions: pt takes in the am atorvastatin 40 MG tablet 40 mg PO QHS allopurinol 100 MG tablet 100 mg PO BID pyridoxine (vitamin B6) 100 MG tablet 100 mg PO DAILY Rx Instructions: pt takes in the am carvedilol 25 mg tablet 25 mg PO BID Rx Instructions: must administer with a meal/food Entresto 49-51 mg tablet 1 tab PO BID magnesium oxide 400 mg (241.3 mg magnesium) tablet 400 mg PO DAILY Patient Comments: TAKE 1 TABLET BY MOUTH ONCE DAILY sodium bicarbonate 650 mg tablet 650 mg PO DAILY Lactobacillus acidophilus [Probiotic Acidophilus] 1 cap PO SUTUTHSA cholecalciferol (vitamin D3) 50 mcg (2,000 unit) tablet 50 mcg PO DAILY Qty: 1 0RF nitroglycerin 0.4 mg tablet, sublingual 0.4 mg sublingual Q5M PRN (Reason: Cardiac/Chest Pain) Qty: 30 2RF apixaban 2.5 mg tablet 2.5 mg PO BID Qty: 180 4RF Discontinued potassium chloride 20 mEq tablet extended release 20 meq PO MOWEFR torsemide 20 mg tablet 20 mg PO MOWEFR Referrals / Follow Up: Cheli Grace MD [Primary Care Provider] - Disposition Disposition (needs filled in before D/C Order can be placed): Home Health Service Charges/Coding Visit Charges Inpatient E&M: 35467 Disch Hosp >30min 11/30/23 2076 <Electronically signed by Sanjeev Sandhu DO> Cosigner Signature (if applicable): CC: Dr. Sanjeev Sandhu DO; Dr. Cheli Grace MD~ Signed [facility] Work Phone: 1(754) 371-822602-06-2024 Progress note Author Sanjeev Sandhu [facility] November 29, 2023 10:11pm Note Date/Time November 29, 2023 3 :22pm [facility] Medical Records Department [address] [place] [address] Progress Note - Hospitalist 11/29/23 1522 MR#: [id number] Acct: [id number] Name: DARCY LUCAS Rep #:[id number] : 1935 88 From: Sanjeev Rochavioleta kirsten ZARATE PCP: Dr. Cheli Grace MD Status:ADM IN Location: [place] [address] Reason for Visit Reason for Visit: Diagnoses Acute on chronic systolic (congestive) heart failure (11/27/23) Pleural effusion, not elsewhere classified (11/27/23) Subjective Subjective No acute events overnight. Patient seen at bedside this morning, present. Patient sitting comfortably in bedside chair, conversing normally, no acute distress. Breathing comfortably on 2L NC, no increased work of breathing noted. Patient states he has continued to have good urine output with the IV lasix. Hedenies any shortness of breath at rest but does continue to have some shortness of breath with exertion. He generally continues to feel more fatigued than his baseline. His states that he has been more fatigued at home as well over the past few months, and he appears to be close to this new baseline now. Patient otherwise denies any acute pain or discomfort. No other acute concerns at this time. Objective Data Objective Data Vital Signs: Vital Signs Temp Pulse Resp BP Pulse Ox O2 Del Method O2 Flow Rate 97.9 F 64 18 119/55 L 97 Room Air 2 11/29/23 09:30 11/29/23 13:37 11/29/23 13:37 11/29/23 13:30 11/29/23 12:45 11/29/23 13:37 11/29/23 09:57 Oxygen Flow Rate (L/min) 2 Oxygen Delivery Method Room Air Weight: 67 kg Body Mass Index (BMI) 21.2 Intake & Output: Intake and Output for Last 24 Hours 11/27/23 11/28/23 11/29/23 23:59 23:59 23:59 Intake Total 320 / 320 830 / 830 0 / 0 Output Total 1300 / 1300 2800 / 2800 1460 / 1460 Balance -980 / -980 -1970 / -1970 -1460 / -1460 Lab / Micro Data 11/29/23 04:21 11/29/23 04:21 Labs: Laboratory Results - last 24 hr 11/29/23 04:21: WBC 5.4, RBC 2.43 L, Hgb 8.3 L, Hct 25.4 L, MCV 104.5 H, MCH 34.2 H, MCHC 32.7, RDW Std Deviation 63.0 H, RDW Coeff of Vanesa 16.9 H, Plt Count 140 L, MPV 11.4, Immature Gran % (Auto) 0.700, Neut % (Auto) 69.0, Lymph % (Auto) 17.7 L, Wharton % (Auto) 8.3, Eos % (Auto) 3.7, Baso % (Auto) 0.6, Absolute Neuts (auto) 3.8, Absolute Lymphs (auto) 0.96, Nucleated RBC % 0, PT 19.2 H, INR1.6, APTT 45.2 H, Sodium 147 H, Potassium 2.9 L, Chloride 118 H, Carbon Dioxide 25.0, Anion Gap 4 L, BUN 39 H, Creatinine 2.17 H, Estim Creat Clear Calc 22.73, Est GFR (MDRD) Af Amer 37 L, Est GFR (MDRD) Non-Af 31 L, BUN/Creatinine Ratio 18.0, Glucose 131 H, Calcium 9.0, Lactate Dehydrogenase 186, Total Protein 6.1 L, Globulin 3.0, Albumin/Globulin Ratio 1.0 Micro: Microbiology 11/28/23 14:15 Stool Clostridioides difficile (PCR) - Final Radiography Diagnostic Testing: Radiology Impression Chest X-Ray 11/29/23 13:30 IMPRESSION: Status post right thoracentesis. No evidence of pneumothorax. Electronically Signed: Michael Soriano MD at 14:34 EST , Physical Exam Const alert, no apparent distress and average body habitus Constitutional Narrative: Pleasant elderly male, thin appearing, fatigued appearing, otherwise sitting comfortably in bedside chair, conversing normally, no acute distress. General Appearance: cooperative and comfortable HEENT normocephalic, head/scalp atraumatic, hearing grossly normal bilaterally, nasal mucous membranes and turbinates normal and moist oral mucous membranes Eyes PERRL, EOMs intact bilaterally and conjunctivae normal Neck full ROM, no lymphadenopathy and supple Lymph Lymphatic: no lymphadenopathy noted Chest inspection of chest normal Resp Resp Narrative: Breathing comfortably on 2L NC, no increased work of breathing noted. Mildly diminished breath sounds bilaterally, no wheezing or crackles noted. Cardio regular rate, regular rhythm, no murmurs and peripheral pulses 2+ throughout GI normal to inspection, nondistended, normoactive bowel sounds, soft to palpation,non-tender and non-distended Back/Spine normal ROM Extremity normal to inspection and full ROM Skin no rashes or lesions noted Neuro no focal motor deficits and no sensory deficits noted Speech: speech normal Psych mental status grossly normal Assessment & Plan Assessment/Plan (1) Pleural effusion, right: (2) Acute on chronic HFrEF (heart failure with reduced ejection fraction): PLAN: Plan Patient is an 88 year old male who presented to [facility] ED on11/27/2023 with worsening shortness of breath on exertion. 1. Acute exacerbation of HFrEF, improving, with acute hypoxia CXR on admit showed moderate right pleural effusion, small left pleural effusion. BNP > 5000. Recent TTE on 11/10/23 showed EF 20%, severe global hypokinesis of LV, moderate pulmonary HTN, no change from previous TTE from 07/2022. Unclear trigger for current exacerbation. Started on IV lasix 40 mg BID on admit, has had good urine output with improvement in oxygenation status and in dyspnea on exertion. - Continue IV lasix for today, will plan to transition to PO lasix 40 mg daily on 11/30. Monitor daily BMP and urine output. Wean supplemental O2 as able, willneed home O2 evaluation prior to discharge. Continue home spironolactone, Entresto, carvedilol. 2. Right-sided pleural effusion - CXR with right effusion on admit as noted above. Presumed secondary to heart failure. S/p thoracentesis with radiology on 11/29, 710 cc of clear yellow fluid drained, fluid studies consistent with transudative effusion presumed secondary to heart failure. Repeat CXR post thoracentesis with no evidence of pneumothorax. 3. Chronic macrocytic anemia - Hemoglobin 9.5 on admit, baseline hemoglobin 9-10. Mild downtrend in hemoglobin to 8.3 on 11/29. Suspect due to lab draws, acute HFrEF exacerbation. Iron studies 11/29 consistent with iron deficiency anemia. Will give dose of IV iron tomorrow. Trend CBC daily. 4. Debility, degenerative arthritis - PT/OT/CM following. Planning for home with [facility] on discharge. 5. Hypokalemia - Presumed secondary to heavy diuresis with Lasix. Replete as needed. Chronic medical conditions: - CKD stage IV: Creatinine at baseline, monitor daily BMP. - Paroxysmal Afib: Continue home coreg. Eliquis held on 11/29 for thoracentesis, will restart on 11/30. 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 - Chronic gout: Continue home allopurinol. - GERD: Continue home PPI. DVT prophylaxis: Eliquis Code status: Full code, verified Expected disposition: Home with [facility], 1-2 days Total clinical time spent by myself addressing the patient's medical issues, reviewing all the data, and collaborating with patient's care team: 35 minutes. Charges/Coding Visit Charges Inpatient E&M: 43321 Subs Hosp L2 11/29/23 2211 <Electronically signed by Sanjeev Sandhu DO> Cosigner Signature (if applicable): CC: ~ Signed [facility] Work Phone: 1(876) 899-133402-05-2024 Procedure [facility] 11-28-2023 Progress note Author Gómez Nowak [facility] November 28, 2023 12:07pm Note Date/Time November 28, 2023 8 :04am [facility] Medical Records Department [address] [place] [address] Progress Note - Hospitalist 11/28/23 0758 MR#: [id number] Acct: [id number] Name: DARCY LUCAS Rep #:[id number] : 1935 88 From: Gómez Nowak DO PCP: Dr. Cheli Grace MD Status:ADM IN Location: [place] [address] Reason for Visit Reason for Visit: Diagnoses Acute on chronic systolic (congestive) heart failure (11/27/23) Subjective Subjective Breathing better. Still with lower extremity edema. Objective Data Objective Data Vital Signs: Vital Signs Temp Pulse Resp BP Pulse Ox O2 Del Method O2 Flow Rate 36.9 C 75 18 127/79 H 96 Nasal Cannula 2 11/28/23 03:08 11/28/23 03:40 11/28/23 03:40 11/28/23 03:08 11/28/23 04:00 11/28/23 04:00 11/28/23 04:00 Oxygen Flow Rate (L/min) 2 Oxygen Delivery Method Nasal Cannula Weight: 68.1 kg Body Mass Index (BMI) 21.5 Intake & Output: Intake and Output for Last 24 Hours 11/26/23 11/27/23 11/28/23 23:59 23:59 23:59 Intake Total 320 / 320 120 / 120 Output Total 1300 / 1300 500 / 500 Balance -980 / -980 -380 / -380 Lab / Micro Data 11/28/23 05:51 11/28/23 05:51 Labs: Laboratory Results - last 24 hr 11/27/23 13:30: WBC 4.7, RBC 2.84 L, Hgb 9.5 L, Hct 29.4 L, MCV 103.5 H, MCH 33.5 H, MCHC 32.3, RDW Std Deviation 63.3 H, RDW Coeff of Vanesa 16.8 H, Plt Count 142 L, MPV 10.2, Immature Gran % (Auto) 0.200, Neut % (Auto) 73.9 H, Lymph % (Auto) 15.1 L, Wharton % (Auto) 6.4, Eos % (Auto) 4.0, Baso % (Auto) 0.4, Absolute Neuts (auto) 3.5, Absolute Lymphs (auto) 0.71 L, Nucleated RBC % 0, Sodium 143, Potassium 3.2 L, Chloride 116 H, Carbon Dioxide 20.0 L, Anion Gap 7, BUN 37 H, Creatinine 2.15 H, Estim Creat Clear Calc 24.32, Est GFR (MDRD) Af Amer 38 L, Est GFR (MDRD) Non-Af 31 L, BUN/Creatinine Ratio 17.2, Glucose 116 H, Calcium 9.1, Phosphorus 3.3, Troponin I High Sens 47, B-Natriuretic Peptide > 5000.0 H 11/27/23 15:40: Magnesium 1.7, Troponin I High Sens 47 11/27/23 18:33: Troponin I High Sens 40 11/28/23 05:51: WBC 5.9, RBC 2.69 L, Hgb 8.9 L, Hct 27.6 L, MCV 102.6 H, MCH 33.1 H, MCHC 32.2, RDW Std Deviation 62.4 H, RDW Coeff of Vanesa 16.9 H, Plt Count 140 L, MPV 10.3, Immature Gran % (Auto) 0.200, Neut % (Auto) 78.5 H, Lymph % (Auto) 14.0 L, Wharton % (Auto) 6.6, Eos % (Auto) 0.5, Baso % (Auto) 0.2, Absolute Neuts (auto) 4.7, Absolute Lymphs (auto) 0.83, Nucleated RBC % 0 Radiography Diagnostic Testing: Radiology Impression Chest X-Ray 11/27/23 13:38 IMPRESSION: Worsening bilateral pneumonia or edema and pleural effusions. Electronically Signed: Deon Palmer MD at 15:06 EST , Physical Exam Const alert and no apparent distress HEENT head/scalp atraumatic and moist oral mucous membranes Resp normal respiratory effort, no retractions and no use of accessory muscles Cardio regular rate, regular rhythm, S1 normal heart sound and S2 normal heart sound GI normal to inspection, nondistended, normoactive bowel sounds Extremity General Extremity: edema bilateral lower extremity Details: moderate Neuro Sensorium / Orientation: awake and alert Psych affect normal Assessment & Plan Assessment/Plan (1) Acute on chronic HFrEF (heart failure with reduced ejection fraction): PLAN: Plan Acute on chronic HFrEF * Patient recently had echo in October 2023 reported EF 20%, severe global LV hypokinesis. Normal systolic RV function 1-2+ eccentric MR, 2+ TR, PASP 60 mmHg moderate pulmonary hypertension. Compared to previous study, LV systolic function is same. First isolated troponin negative. Cycle cardiac enzymes. * Started on Lasix 40 mg IV twice daily. Low-dose spironolactone 12.5 mg daily * continue sacubitril/valsartan, carvedilol Right-sided pleural effusion from CHF exacerbation: * Previously seen on CXR * Ultrasound-guided thoracocentesis ordered for Wednesday. It is unclear if there will be enough fluid to safely perform a thoracentesis. This was expressed to the patient. Chronic conditions: * CKD stage IV Monitor BMP daily particularly while on furosemide. * Paroxysmal atrial fibrillation : Patient on Coreg. Hold apixaban for thoracentesis, resume afterwards. 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 Patient H&H around 9.02/2010% on baseline for last for 5 visits. Platelet count 142,000. Patient is doing well. * Chronic gout: on allopurinol * GERD; on PPI * Degenerative osteoarthritis: PT and OT ordered DVT prophylaxis: SCDs while off apixaban. Charges/Coding Visit Charges Inpatient E&M: 27114 Subs Hosp L2 11/28/23 1207 <Electronically signed by Gómez Nowak DO> Cosigner Signature (if applicable): CC: ~ Signed [facility] Work Phone: [phone] 700-968802-03-2024 History and physical note Author Dav Renteria [facility] November 27, 2023 4:23pm Note Date/Time November 27, 2023 4 :23pm [facility] Medical Records Department [address] [place] [id number] H&P Exam - Hospitalist 11/27/23 1601 MR#: [id number] Acct: [id number] Name: DARCY LUCAS Rep #:[id number] : 1935 88 From: Dav Morillo PCP: Dr. Cheli Grace MD Status:ADM IN Location: [place] [id number] HPI - General General Date of Admission: 11/27/23 Date of Service: 11/27/23 Chief Complaint: Shortness of breath that is started yesterday mainly dyspnea onexertion and chest pressure today HPI Narrative DARCY LUCAS, is a 88 M came to ED with shortness of breath mainly on exertion that started yesterday and got worse today. He when he walks to the bathroom isvery short of breath/winded. He also got chest pressure around sternal brim which feels like pressure, localized in the morning. In ED when I saw him it says it is gone. He denies dizziness lightheadedness or syncope or near fall onwalking. Patient also has bilateral leg swelling. Patient's further added that he has been recurrent admitted and falling 6 since August 2023. Number he had bilateral pneumonia and then on Christmastime he had a COVID. On November 17, 2023 he came to ED for abdominal pain and abdominal CT was done and then ultrasound which shows abnormal 8.1 mm intimal thickening of the gallbladder without stones but negative for sonographic Guerra sign, a calculus cholecystitis and patient was advised to follow-up surgery as an outpatient. Patient denies any fever or chills. Labs reviewed in the ED and shows high blood pressure 173/68, heart rate 84 pulse ox normal 94% on room air. Twelve-lead EKG chest x-ray and labs reviewed and discussed in assessment and plan. [facility] Medical History Acute electrocardiogram changes Atherosclerosis of [place] coronary artery of [place] heart without angina pectoris Brain bleed Carotid artery disease Chest pain Chronic kidney disease (CKD) Chronic kidney disease (CKD) Congestive heart failure COVID-19 GERD (gastroesophageal reflux disease) Hypoxemia Ischemic cardiomyopathy Kidney disease, chronic, stage III (GFR 30-59 ml/min) Paroxysmal atrial fibrillation Pneumonia of both lower lobes Home Medications allopurinol 100 mg tablet 100 mg PO BID Gout 11/24/18 [History Last Taken 11/27/23] atorvastatin 40 mg tablet 40 mg PO QHS Cholesterol 11/24/18 [History Last Taken 11/26/23] pyridoxine (vitamin B6) 100 mg tablet 100 mg PO DAILY supplement 11/24/18 [History Last Taken 11/26/23] albuterol sulfate 90 mcg/actuation aerosol inhaler 2 puff inhalation Q4H PRN shortness of breath or wheezing #8.5 grams 12/25/20 [Rx Last Taken Unknown] ascorbate calcium (vitamin C) 500 mg tablet 500 mg PO DAILY supplement 12/25/20 [History Last Taken 11/17/23] mecobalamin (vitamin B12) 1,000 mcg disintegrating tablet,sublingual 1,000 mcg sublingual DAILY supplement 12/25/20 [History Last Taken 11/26/23] cholecalciferol (vitamin D3) 50 mcg (2,000 unit) tablet 50 mcg PO DAILY bone health #1 TAB 03/09/22 [Rx Last Taken 11/17/23] coenzyme Q10 100 mg tablet 100 mg PO DAILY general 09/24/22 [History Last Taken 11/16/23] torsemide 20 mg tablet 20 mg PO MOWEFR edema 11/19/22 [History Last Taken 11/27/23] potassium chloride 20 mEq tablet,extended release 20 meq PO MOWEFR Hypokalemia 06/30/23 [History Last Taken 11/27/23] nitroglycerin 0.4 mg sublingual tablet 0.4 mg sublingual Q5M PRN Cardiac/Chest Pain #30 tabs 09/02/23 [Rx Last Taken Unknown] apixaban 2.5 mg tablet 2.5 mg PO BID Blood thinner #180 tabs 09/30/23 [Rx Last Taken 11/27/23] Lactobacillus acidophilus 1 cap PO SUTUTHSA PROBIOTIC 11/17/23 [History Last Taken 11/16/23] carvedilol 25 mg tablet 25 mg PO BID blood pressure 11/17/23 [History Last Taken 11/27/23] magnesium oxide 400 mg (241.3 mg magnesium) tablet 400 mg PO DAILY SUPPLEMENT 11/17/23 [History Last Taken 11/27/23] sacubitril 49 mg-valsartan 51 mg tablet (Entresto) 1 tab PO BID BLOOD PRESSURE 11/17/23 [History Last Taken 11/27/23] sodium bicarbonate 650 mg tablet 650 mg PO DAILY SUPPLEMENT 11/17/23 [History Last Taken 11/26/23] Allergy/AdvReac Type Severity Reaction Status Date / Time No Known Allergies Allergy Verified 11/17/23 08:29 Family History Father CAD (coronary artery disease) Surgical History History of brain surgery History of coronary artery bypass graft x 3 History of craniotomy History of permanent cardiac pacemaker placement Social History household members: spouse Smoking Status: Never smoker alcohol intake: never substance use type: does not use caffeine: No ROS ROS Narrative Constitutional: Reports fatigue and weakness. No fever. HEENT: Reports systems reviewed and no addt'l complaints, except as documented Respiratory/Chest: As described in HPI. CVS: As described in HPI. History of CABG, pacemaker and cardiac murmur. Gastrointestinal: Denies coffee ground emesis, hematemesis or vomiting Genitourinary: Denies burning urination or new urinary tract symptoms Musculoskeletal: Bilateral leg swelling. Denies acute joint pain or limited range of motion. No acute injury Neurologic: Denies seizure-like symptoms. skin: No ulcer. No rash Endocrinology: Reports systems reviewed and no addt'l complaints, except as documented Hematologic/Lymphatic: Reports systems reviewed and no addt'l complaints, exceptas documented Rest 14 ROS are negative except as mentioned in HPI Vital Signs Vital Signs Vital Signs: 11/27/23 12:59 11/27/23 13:32 11/27/23 13:34 Temperature 97.6 F L Temperature Source Temporal Pulse Rate 84 Respiratory Rate 16 Respiratory Effort Normal Non-Labored Blood Pressure 173/68 H Blood Pressure Mean 103 Pulse Ox 94 95 Oxygen Delivery Method Room Air Room Air 11/27/23 15:00 11/27/23 15:44 Temperature 97.8 F Temperature Source Pulse Rate 67 Respiratory Rate 12 23 H Respiratory Effort Blood Pressure 131/67 H Blood Pressure Mean 88 Pulse Ox 92 93 Oxygen Delivery Method Room Air Weight Weight: 156 lb 9.6 oz Body Mass Index (BMI) 22.4 Physical Exam Narrative General: Alert, Oriented x3, Cooperative HEENT: Atraumatic, PERRLA, EOMI, Normocephalic Oral: No Gingival or Mucosal Lesions/ Ulcerations Neck: Supple, No JVD, Negative Carotid Bruits Chest wall/Lungs: Air entry diminished Linda right posterior half of lung. Stony dullness present below right fifth ICS posteriorly. Right moderate pleural effusion. No crepitation/rhonchi Cardiovascular: Paced rhythm, status post CABG. S1-S2 normal. Systolic murmur present LLSB and cardiac apex. Abdomen: Bowel Sounds Present, Soft, Non Tender, Non-Distended : No dysuria. No renal angle tenderness. No suprapubic tenderness. Extremities: Bilateral 3+ pitting edema, Capillary Refill Less than 3 Seconds Skin: No rashes, No breakdown Musculoskeletal: No Tenderness to Palpation of Joints or Extremities. Muscle strength 4+/5 at major joints of lower extremities Neurological: Cranial nerves II-XII grossly intact, DTR 2+/4. No acute focal neurological deficit. Psych/Mental Status: Flat affect. Results Lab / Micro Data 11/27/23 13:30 11/27/23 13:30 Labs: Laboratory Results - last 24 hr 11/27/23 13:30: WBC 4.7, RBC 2.84 L, Hgb 9.5 L, Hct 29.4 L, MCV 103.5 H, MCH 33.5 H, MCHC 32.3, RDW Std Deviation 63.3 H, RDW Coeff of Vanesa 16.8 H, Plt Count 142 L, MPV 10.2, Immature Gran % (Auto) 0.200, Neut % (Auto) 73.9 H, Lymph % (Auto) 15.1 L, Wharton % (Auto) 6.4, Eos % (Auto) 4.0, Baso % (Auto) 0.4, Absolute Neuts (auto) 3.5, Absolute Lymphs (auto) 0.71 L, Nucleated RBC % 0, Sodium 143, Potassium 3.2 L, Chloride 116 H, Carbon Dioxide 20.0 L, Anion Gap 7, BUN 37 H, Creatinine 2.15 H, Estim Creat Clear Calc 24.32, Est GFR (MDRD) Af Amer 38 L, Est GFR (MDRD) Non-Af 31 L, BUN/Creatinine Ratio 17.2, Glucose 116 H, Calcium 9.1, Troponin I High Sens 47 Imaging Radiology Impression Chest X-Ray 11/27/23 13:38 IMPRESSION: Worsening bilateral pneumonia or edema and pleural effusions. Electronically Signed: Deon Palmer MD at 15:06 EST , Assessment & Plan Assessment/Plan (1) Acute on chronic HFrEF (heart failure with reduced ejection fraction): PLAN: Plan This 38-year-old gentleman is being admitted for increased shortness of breath mainly exertional for 2 days along with increasing lower extremity edema and upper chest pressure and chest x-ray finding consistent with CHF exacerbation. 1. Acute on chronic HFrEF, exact precipitating factor unclear with history of CAD status post CABG, valvular heart disease: Patient is being admitted in PCU. Twelve-lead EKG shows ventricular paced rhythm, occasional supraventricular complexes and PVCs. Chest x-ray individually reviewed and shows right moderate pleural effusion and lobar infiltrate. Left lung base is also not clear possible infiltrate/atelectasis or effusion. Patient recently had echo in October 2023 reported EF 20%, severe global LV hypokinesis. Normal systolic RV function 1-2+ eccentric MR, 2+ TR, PASP 60 mmHg moderate pulmonary hypertension. Compared to previous study, LV systolic function is same. First isolated troponin negative. Cycle cardiac enzymes. Started on Lasix 40 mg IV twice daily. Low-dose spironolactone 12.5 mg daily from tomorrow AM. BNP more than 5000. Heart failure core measures including intake and output, fluid restriction less than 1500 mL, daily weight monitoring,kidney and electrolytes monitoring. 2. Possible right-sided pleural effusion from CHF exacerbation: Ultrasound- guided thoracocentesis ordered for Wednesday. Patient also had bilateral pneumoniaand then COVID-19 infection August and September 2023. 3. CKD stage IV with hypokalemia: Patient given potassium in ED for hypokalemiaK3.2. Anion gap normal, bicarb 20, suggestive of possible normal anion gap metabolic acidosis. Patient is on baseline creatinine 2.15, creatinine ranges from 1.9-2.4 recently. Monitor BMP daily. Serum magnesium and phosphorus ordered. 4. Paroxysmal atrial fibrillation : Patient on Coreg and Eliquis. 5. 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 Patient H&H around 9.02/2010% on baseline for last for 5visits. Platelet count 142,000. Patient is doing well. 6. Chronic gout: on allopurinol 7. GERD; on PPI 8. Degenerative osteoarthritis: PT and OT ordered DVT prophylaxis: on eliquis Living will/advanced directive/end of life care: Patient does have living will or advanced directive. His is power of securities attorney for health sitting by the bedside in the ER. After discussion of benefits/risks procedures involved with full code, DNR CC arrest and DNR CC, the patient and her opted for full code. Patient does want artificial life support including intubation, tube feed, ventilator and/chest compression, central venous catheter, vasopressor and DC shock if needed Total time spent in [id number] encounter in discussion of advanced directive 17 minutes. Laboratory Results 11/27/23 13:30: WBC 4.7, RBC 2.84 L, Hgb 9.5 L, Hct 29.4 L, MCV 103.5 H, MCH 33.5 H, MCHC 32.3, RDW Std Deviation 63.3 H, RDW Coeff of Vanesa 16.8 H, Plt Count 142 L, MPV 10.2, Immature Gran % (Auto) 0.200, Neut % (Auto) 73.9 H, Lymph % (Auto) 15.1 L, Wharton % (Auto) 6.4, Eos % (Auto) 4.0, Baso % (Auto) 0.4, Absolute Neuts (auto) 3.5, Absolute Lymphs (auto) 0.71 L, Nucleated RBC % 0, Sodium 143, Potassium 3.2 L, Chloride 116 H, Carbon Dioxide 20.0 L, Anion Gap 7, BUN 37 H, Creatinine 2.15 H, Estim Creat Clear Calc 24.32, Est GFR (MDRD) Af Amer 38 L, Est GFR (MDRD) Non-Af 31 L, BUN/Creatinine Ratio 17.2, Glucose 116 H,Calcium 9.1, Phosphorus 3.3, Troponin I High Sens 47, B-Natriuretic Peptide > 5000.0 H 11/27/23 15:40: Magnesium Pending, Troponin I High Sens Pending Clinical Impression(s) from Imaging Studies Chest X-Ray 11/27/23 13:38 IMPRESSION: Worsening bilateral pneumonia or edema and pleural effusions. Electronically Signed: Deon Palmer MD at 15:06 EST , Charges/Coding Visit Charges Inpatient E&M: 30606 Init Hosp L3 Procedures Hospitalists Procedures: 73343 Advncd Care Plan 30 Min 11/27/23 1623 <Electronically signed by Dav Renteria MD> Cosigner Signature (if applicable): CC: Dr. Cheli Grace MD; Dr. Dav Renteria MD~ Signed [facility] Work Phone: [phone]) 155-868902-03-2024 Discharge summary Author Devin Kennedy [facility] November 27, 2023 3:39pm Note Date/Time November 27, 2023 1 :05pm [facility] Medical Records Department [address] [place] [address] Emergency Department Summary 11/27/23 MR#: [id number] Acct: [id number] Name: DARCY LUCAS Rep #:[id number] : 1935 88 From: Devin Markham PCP: Dr. Cheli Grace MD Status:REG ER Location: ED HPI History of Present Illness Chief Complaint: Chest Pain [facility] Medical History Acute electrocardiogram changes Atherosclerosis of [place] coronary artery of [place] heart without angina pectoris Brain bleed Carotid artery disease Chest pain Chronic kidney disease (CKD) Chronic kidney disease (CKD) Congestive heart failure COVID-19 GERD (gastroesophageal reflux disease) Hypoxemia Ischemic cardiomyopathy Kidney disease, chronic, stage III (GFR 30-59 ml/min) Paroxysmal atrial fibrillation Pneumonia of both lower lobes Home Medications allopurinol 100 mg tablet 100 mg PO BID Gout 11/24/18 [History Last Taken 11/17/23] atorvastatin 40 mg tablet 40 mg PO QHS Cholesterol 11/24/18 [History Last Taken 05/06/22] pyridoxine (vitamin B6) 100 mg tablet 100 mg PO DAILY supplement 11/24/18 [History Last Taken 11/17/23] albuterol sulfate 90 mcg/actuation aerosol inhaler 2 puff inhalation Q4H PRN shortness of breath or wheezing #8.5 grams 12/25/20 [Rx Last Taken Unknown] ascorbate calcium (vitamin C) 500 mg tablet 500 mg PO DAILY supplement 12/25/20 [History Last Taken 11/17/23] mecobalamin (vitamin B12) 1,000 mcg disintegrating tablet,sublingual 1,000 mcg sublingual DAILY supplement 12/25/20 [History Last Taken 11/16/23] cholecalciferol (vitamin D3) 50 mcg (2,000 unit) tablet 50 mcg PO DAILY #1 TAB 03/09/22 [Rx Last Taken 11/17/23] coenzyme Q10 100 mg tablet 100 mg PO DAILY 09/24/22 [History Last Taken 11/16/23] torsemide 20 mg tablet 20 mg PO MOWEFR edema 11/19/22 [History Last Taken 11/17/23] potassium chloride 20 mEq tablet,extended release 20 meq PO MOWEFR Hypokalemia 06/30/23 [History Last Taken 11/17/23] nitroglycerin 0.4 mg sublingual tablet 0.4 mg sublingual Q5M PRN Cardiac/Chest Pain #30 tabs 09/02/23 [Rx Last Taken Unknown] apixaban 2.5 mg tablet 2.5 mg PO BID Blood thinner #180 tabs 09/30/23 [Rx Last Taken 11/17/23] Lactobacillus acidophilus 1 cap PO SUTUTHSA PROBIOTIC 11/17/23 [History Last Taken 11/16/23] carvedilol 25 mg tablet 25 mg PO BID blood pressure 11/17/23 [History Last Taken 11/17/23] magnesium oxide 400 mg (241.3 mg magnesium) tablet 400 mg PO DAILY SUPPLEMENT 11/17/23 [History Last Taken 11/17/23] sacubitril 49 mg-valsartan 51 mg tablet (Entresto) 1 tab PO BID BLOOD PRESSURE 11/17/23 [History Last Taken 11/17/23] sodium bicarbonate 650 mg tablet 650 mg PO DAILY SUPPLEMENT 11/17/23 [History Last Taken 11/17/23] Allergy/AdvReac Type Severity Reaction Status Date / Time No Known Allergies Allergy Verified 11/17/23 08:29 Family History Father CAD (coronary artery disease) Surgical History History of brain surgery History of coronary artery bypass graft x 3 History of craniotomy History of permanent cardiac pacemaker placement Social History (Updated 11/17/23 @ 08:[address] Guillermo Negrete MD) household members: spouse Smoking Status: Never smoker alcohol intake: never substance use type: does not use caffeine: No EXAM Physical Exam Const Vital Signs: 11/27/23 12:59 11/27/23 13:32 11/27/23 13:34 Temperature 97.6 F L Temperature Source Temporal Pulse Rate 84 Respiratory Rate 16 Respiratory Effort Normal Non-Labored Blood Pressure 173/68 H Blood Pressure Mean 103 Pulse Ox 94 95 Oxygen Delivery Method Room Air Room Air [facility] Narrative Medical decision making narrative: HISTORY OF PRESENT ILLNESS: 88-year-old male here with chest pain, chest pressure, shortness of breath. Notes he feels congested. Noted this morning as he was eating breakfast he had increased work of breathing shortness of breath. He notes chronic leg swelling. Denies any orthopnea or paroxysmal nocturnal dyspnea. Denies any recent illnesses, sick contacts. Denies cough fever or chills. Notes compliance with Eliquis. Denies PE risk factors (recent surgery, chemotherapy, estrogen use, unilateral leg swelling, hemoptysis). REVIEW OF SYSTEMS: Pertinent positives: Chest pain, shortness of breath, leg swelling Pertinent negatives: Cough, fever, bleeding diathesis, focal weakness or syncope PHYSICAL EXAM: Nursing triage notes reviewed, Vital signs reviewed Constitutional: please see mdm HENT: MMM Eyes: Pupils equal round and reactive to light, Extraocular muscles intact Neck: No stridor, no JVD, full neck ROM Lungs: Increased work of breathing, conversational dyspnea, rales noted bilaterally Heart: Regular rate and rhythm, No murmurs, No rubs and No gallops, 2+ distal pulses (radial, femoral, posterior tibial) in all extremities Abdomen: Soft, there is no tenderness, rigidity, rebound or guarding, no obviousperitoneal signs, no palpable pulsatile abdominal masses, no auscultated abdominal bruit : No CVAT Extremities: 2+ pitting edema bilaterally Neuro: No focal neurological deficits, cranial nerves II through XII intact, 5/5strength in all extremities. Intact sensation to light touch in all extremities,2+ reflexes bilateral patella tendons. Normal gait. No ataxia. Skin: No rash or lesions noted MEDICAL DECISION MAKING: Chief Complaint: Chest pain External records reviewed: Echocardiogram from November 10 shows ejection fraction 20% with severe global hypokinesis of the left ventricle Factors affecting care: CAD status post CABG, hypertension, hyperlipidemia, A- fib on Eliquis, sick sinus syndrome status post pacemaker Social determinants of health: Elderly History obtained from others: Dr. Eden Consults: Internal medicine MDM Narrative: Patient was initially normotensive, had increased work of breathing, tachypnea and transient hypoxia. He was placed on 2 L nasal cannula with improvement in oxygen levels. Exam with 3+ lower extremity edema and rales noted bilateral bases consistent with likely CHF exacerbation. I considered the following differential diagnosis: CHF exacerbation, ACS, arrhythmia, electro disturbance, anemia, pneumonia, COVID, RSV, flu, PE While I considered PE the patient is low risk Wells score is compliant with Eliquis which makes VTE much less likely. ALL IMAGES (IF OBTAINED) HAVE BEEN PERSONALLY REVIEWED AND INTERPRETED BY MYSELF. EKG with ventricular paced rhythm, left axis deviation, prolonged QT interval, left bundle branch block, there is no significant interval change from prior EKGs reviewed from August 2023 Chest x-ray was read reviewed by myself shows evidence of pulmonary edema versusright lower lobe infiltrate, favor pulmonary edema given lack of cough, infectious signs symptoms, fever or elevated white blood cell count High-sensitivity troponin is negative, no evidence of myocardial ischemia BP pending BMP with no significant Gerri normalities, there is noted hypokalemia, there is CKD noted however this is similar to prior The synthesis of the patient's history, physical exam, labs images suggest likely heart failure. Given the patient's advanced age, hypoxia and need for close PEGGY monitoring, electrolyte replacement and renal assessment he will need inpatient mission for IV diuresis. Discussed with Dr. Renteria The patient and/or family, caregivers express understanding. The patient and/orfamily, caregivers agrees with the plan. Shared decision making: I will have a discussion with the patient and or visitors regarding risk/benefits of further testing or admission. They will be made aware of of the risk/benefits inherent in this decision they will be given the opportunity to voice understanding. Total critical care time today provided was at least 35 minutes. This excludes separately billable procedures. Critical care time (if documented) is secondary to the patient having high probability of clinically significant/life threatening deterioration in the patient's condition which required my urgent intervention. Impression: 1. Hypoxia 2. CHF exacerbation 3. Hypokalemia Dispo: admit This note was generated with [employer] dictation software. It may contain incorrectwords, spelling, and punctuation that were not noted in review of the chart prior to signing. Lab Data Labs: Laboratory Results - last 24 hr 11/27/23 13:30 WBC 4.7 RBC 2.84 L Hgb 9.5 L Hct 29.4 L MCV 103.5 H MCH 33.5 H MCHC 32.3 RDW Std Deviation 63.3 H RDW Coeff of Vanesa 16.8 H Plt Count 142 L MPV 10.2 Immature Gran % (Auto) 0.200 Neut % (Auto) 73.9 H Lymph % (Auto) 15.1 L Wharton % (Auto) 6.4 Eos % (Auto) 4.0 Baso % (Auto) 0.4 Absolute Neuts (auto) 3.5 Absolute Lymphs (auto) 0.71 L Nucleated RBC % 0 Sodium 143 Potassium 3.2 L Chloride 116 H Carbon Dioxide 20.0 L Anion Gap 7 BUN 37 H Creatinine 2.15 H Estim Creat Clear Calc 24.32 Est GFR (MDRD) Af Amer 38 L Est GFR (MDRD) Non-Af 31 L BUN/Creatinine Ratio 17.2 Glucose 116 H Calcium 9.1 Troponin I High Sens 47 Radiography Diagnostic Testing: Clinical Impression(s) from Imaging Studies Chest X-Ray 11/27/23 13:38 IMPRESSION: Worsening bilateral pneumonia or edema and pleural effusions. Electronically Signed: Deon Palmer MD at 15:06 EST , Discharge Plan Triage Chief Complaint: Chest Pain ED Provider: Devin Kennedy Dx/Rx/DC Orders Prescriptions: No Action mecobalamin (vitamin B12) 1,000 mcg tablet,disintegrating 1,000 mcg SUBLINGUAL DAILY Rx Instructions: place tablet under tongue and allow to dissolve for at least30 secs before swallowing. pt takes in the am ascorbate calcium (vitamin C) 500 mg tablet 500 mg PO DAILY albuterol sulfate 90 mcg/actuation HFA aerosol inhaler 2 puff INHALATION Q4H PRN (Reason: shortness of breath or wheezing) Qty: 8.5 6RF Rx Instructions: administer with spacer coenzyme Q10 100 mg tablet 100 mg PO DAILY Rx Instructions: pt takes in the am potassium chloride 20 mEq tablet extended release 20 meq PO MOWEFR atorvastatin 40 MG tablet 40 mg PO QHS allopurinol 100 MG tablet 100 mg PO BID pyridoxine (vitamin B6) 100 MG tablet 100 mg PO DAILY Rx Instructions: pt takes in the am carvedilol 25 mg tablet 25 mg PO BID Rx Instructions: must administer with a meal/food Entresto 49-51 mg tablet 1 tab PO BID magnesium oxide 400 mg (241.3 mg magnesium) tablet 400 mg PO DAILY Patient Comments: TAKE 1 TABLET BY MOUTH ONCE DAILY sodium bicarbonate 650 mg tablet 650 mg PO DAILY Lactobacillus acidophilus [Probiotic Acidophilus] 1 cap PO SUTUTHSA cholecalciferol (vitamin D3) 50 mcg (2,000 unit) tablet 50 mcg PO DAILY Qty: 1 0RF torsemide 20 mg tablet 20 mg PO MOWEFR nitroglycerin 0.4 mg tablet, sublingual 0.4 mg sublingual Q5M PRN (Reason: Cardiac/Chest Pain) Qty: 30 2RF apixaban 2.5 mg tablet 2.5 mg PO BID Qty: 180 4RF Primary Care Provider: Cheli Grace Referrals: Cheli Grace MD [Primary Care Provider] - What to do if you have Problems For any increased pain, shortness of breath, bleeding, nausea or vomiting, chestpain, or any unexpected problems, contact your Primary Care Provider. Call [facility] ([phone]) or report to the closest Emergency Room. Call 911 if necessary. 11/27/23 153 <Electronically signed by Devin Kennedy DO> Cosigner Signature (if applicable): CC: Dr. Cheli Grace MD ~ Signed [facility] Work Phone: [phone] Discharge summary Author Devin Kennedy [facility] November 27, 2023 3:39pm Note Date/Time November 27, 2023 1 :05pm [facility] Medical Records Department [address] [place] [id number] Emergency Department Summary 11/27/23 MR#: [id number] Acct: [id number] Name: DARCY LUCAS Rep #:[id number] : 1935 88 From: Devin Markham PCP: Dr. Cheli Grace MD Status:REG ER Location: ED HPI History of Present Illness Chief Complaint: Chest Pain [facility] Medical History Acute electrocardiogram changes Atherosclerosis of [place] coronary artery of [place] heart without angina pectoris Brain bleed Carotid artery disease Chest pain Chronic kidney disease (CKD) Chronic kidney disease (CKD) Congestive heart failure COVID-19 GERD (gastroesophageal reflux disease) Hypoxemia Ischemic cardiomyopathy Kidney disease, chronic, stage III (GFR 30-59 ml/min) Paroxysmal atrial fibrillation Pneumonia of both lower lobes Home Medications allopurinol 100 mg tablet 100 mg PO BID Gout 11/24/18 [History Last Taken 11/17/23] atorvastatin 40 mg tablet 40 mg PO QHS Cholesterol 11/24/18 [History Last Taken 05/06/22] pyridoxine (vitamin B6) 100 mg tablet 100 mg PO DAILY supplement 11/24/18 [History Last Taken 11/17/23] albuterol sulfate 90 mcg/actuation aerosol inhaler 2 puff inhalation Q4H PRN shortness of breath or wheezing #8.5 grams 12/25/20 [Rx Last Taken Unknown] ascorbate calcium (vitamin C) 500 mg tablet 500 mg PO DAILY supplement 12/25/20 [History Last Taken 11/17/23] mecobalamin (vitamin B12) 1,000 mcg disintegrating tablet,sublingual 1,000 mcg sublingual DAILY supplement 12/25/20 [History Last Taken 11/16/23] cholecalciferol (vitamin D3) 50 mcg (2,000 unit) tablet 50 mcg PO DAILY #1 TAB 03/09/22 [Rx Last Taken 11/17/23] coenzyme Q10 100 mg tablet 100 mg PO DAILY 09/24/22 [History Last Taken 11/16/23] torsemide 20 mg tablet 20 mg PO MOWEFR edema 11/19/22 [History Last Taken 11/17/23] potassium chloride 20 mEq tablet,extended release 20 meq PO MOWEFR Hypokalemia 06/30/23 [History Last Taken 11/17/23] nitroglycerin 0.4 mg sublingual tablet 0.4 mg sublingual Q5M PRN Cardiac/Chest Pain #30 tabs 09/02/23 [Rx Last Taken Unknown] apixaban 2.5 mg tablet 2.5 mg PO BID Blood thinner #180 tabs 09/30/23 [Rx Last Taken 11/17/23] Lactobacillus acidophilus 1 cap PO SUTUTHSA PROBIOTIC 11/17/23 [History Last Taken 11/16/23] carvedilol 25 mg tablet 25 mg PO BID blood pressure 11/17/23 [History Last Taken 11/17/23] magnesium oxide 400 mg (241.3 mg magnesium) tablet 400 mg PO DAILY SUPPLEMENT 11/17/23 [History Last Taken 11/17/23] sacubitril 49 mg-valsartan 51 mg tablet (Entresto) 1 tab PO BID BLOOD PRESSURE 11/17/23 [History Last Taken 11/17/23] sodium bicarbonate 650 mg tablet 650 mg PO DAILY SUPPLEMENT 11/17/23 [History Last Taken 11/17/23] Allergy/AdvReac Type Severity Reaction Status Date / Time No Known Allergies Allergy Verified 11/17/23 08:29 Family History Father CAD (coronary artery disease) Surgical History History of brain surgery History of coronary artery bypass graft x 3 History of craniotomy History of permanent cardiac pacemaker placement Social History (Updated 11/17/23 @ 08:[address] Guillermo Negrete MD) household members: spouse Smoking Status: Never smoker alcohol intake: never substance use type: does not use caffeine: No EXAM Physical Exam Const Vital Signs: 11/27/23 12:59 11/27/23 13:32 11/27/23 13:34 Temperature 97.6 F L Temperature Source Temporal Pulse Rate 84 Respiratory Rate 16 Respiratory Effort Normal Non-Labored Blood Pressure 173/68 H Blood Pressure Mean 103 Pulse Ox 94 95 Oxygen Delivery Method Room Air Room Air [facility] MDM MDM Narrative Medical decision making narrative: HISTORY OF PRESENT ILLNESS: 88-year-old male here with chest pain, chest pressure, shortness of breath. Notes he feels congested. Noted this morning as he was eating breakfast he had increased work of breathing shortness of breath. He notes chronic leg swelling. Denies any orthopnea or paroxysmal nocturnal dyspnea. Denies any recent illnesses, sick contacts. Denies cough fever or chills. Notes compliance with Eliquis. Denies PE risk factors (recent surgery, chemotherapy, estrogen use, unilateral leg swelling, hemoptysis). REVIEW OF SYSTEMS: Pertinent positives: Chest pain, shortness of breath, leg swelling Pertinent negatives: Cough, fever, bleeding diathesis, focal weakness or syncope PHYSICAL EXAM: Nursing triage notes reviewed, Vital signs reviewed Constitutional: please see mdm HENT: MMM Eyes: Pupils equal round and reactive to light, Extraocular muscles intact Neck: No stridor, no JVD, full neck ROM Lungs: Increased work of breathing, conversational dyspnea, rales noted bilaterally Heart: Regular rate and rhythm, No murmurs, No rubs and No gallops, 2+ distal pulses (radial, femoral, posterior tibial) in all extremities Abdomen: Soft, there is no tenderness, rigidity, rebound or guarding, no obviousperitoneal signs, no palpable pulsatile abdominal masses, no auscultated abdominal bruit : No CVAT Extremities: 2+ pitting edema bilaterally Neuro: No focal neurological deficits, cranial nerves II through XII intact, 5/5strength in all extremities. Intact sensation to light touch in all extremities,2+ reflexes bilateral patella tendons. Normal gait. No ataxia. Skin: No rash or lesions noted MEDICAL DECISION MAKING: Chief Complaint: Chest pain External records reviewed: Echocardiogram from November 10 shows ejection fraction 20% with severe global hypokinesis of the left ventricle Factors affecting care: CAD status post CABG, hypertension, hyperlipidemia, A- fib on Eliquis, sick sinus syndrome status post pacemaker Social determinants of health: Elderly History obtained from others: Dr. Eden Consults: Internal medicine MDM Narrative: Patient was initially normotensive, had increased work of breathing, tachypnea and transient hypoxia. He was placed on 2 L nasal cannula with improvement in oxygen levels. Exam with 3+ lower extremity edema and rales noted bilateral bases consistent with likely CHF exacerbation. I considered the following differential diagnosis: CHF exacerbation, ACS, arrhythmia, electro disturbance, anemia, pneumonia, COVID, RSV, flu, PE While I considered PE the patient is low risk Wells score is compliant with Eliquis which makes VTE much less likely. ALL IMAGES (IF OBTAINED) HAVE BEEN PERSONALLY REVIEWED AND INTERPRETED BY MYSELF. EKG with ventricular paced rhythm, left axis deviation, prolonged QT interval, left bundle branch block, there is no significant interval change from prior EKGs reviewed from August 2023 Chest x-ray was read reviewed by myself shows evidence of pulmonary edema versusright lower lobe infiltrate, favor pulmonary edema given lack of cough, infectious signs symptoms, fever or elevated white blood cell count High-sensitivity troponin is negative, no evidence of myocardial ischemia BP pending BMP with no significant [place] normalities, there is noted hypokalemia, there is CKD noted however this is similar to prior The synthesis of the patient's history, physical exam, labs images suggest likely heart failure. Given the patient's advanced age, hypoxia and need for close PEGGY monitoring, electrolyte replacement and renal assessment he will need inpatient mission for IV diuresis. Discussed with Dr. Renteria The patient and/or family, caregivers express understanding. The patient and/orfamily, caregivers agrees with the plan. Shared decision making: I will have a discussion with the patient and or visitors regarding risk/benefits of further testing or admission. They will be made aware of of the risk/benefits inherent in this decision they will be given the opportunity to voice understanding. Total critical care time today provided was at least 35 minutes. This excludes separately billable procedures. Critical care time (if documented) is secondary to the patient having high probability of clinically significant/life threatening deterioration in the patient's condition which required my urgent intervention. Impression: 1. Hypoxia 2. CHF exacerbation 3. Hypokalemia Dispo: admit This note was generated with [employer] dictation software. It may contain incorrectwords, spelling, and punctuation that were not noted in review of the chart prior to signing. Lab Data Labs: Laboratory Results - last 24 hr 11/27/23 13:30 WBC 4.7 RBC 2.84 L Hgb 9.5 L Hct 29.4 L MCV 103.5 H MCH 33.5 H MCHC 32.3 RDW Std Deviation 63.3 H RDW Coeff of Vanesa 16.8 H Plt Count 142 L MPV 10.2 Immature Gran % (Auto) 0.200 Neut % (Auto) 73.9 H Lymph % (Auto) 15.1 L Wharton % (Auto) 6.4 Eos % (Auto) 4.0 Baso % (Auto) 0.4 Absolute Neuts (auto) 3.5 Absolute Lymphs (auto) 0.71 L Nucleated RBC % 0 Sodium 143 Potassium 3.2 L Chloride 116 H Carbon Dioxide 20.0 L Anion Gap 7 BUN 37 H Creatinine 2.15 H Estim Creat Clear Calc 24.32 Est GFR (MDRD) Af Amer 38 L Est GFR (MDRD) Non-Af 31 L BUN/Creatinine Ratio 17.2 Glucose 116 H Calcium 9.1 Troponin I High Sens 47 Radiography Diagnostic Testing: Clinical Impression(s) from Imaging Studies Chest X-Ray 11/27/23 13:38 IMPRESSION: Worsening bilateral pneumonia or edema and pleural effusions. Electronically Signed: Deon Palmer MD at 15:06 EST , Discharge Plan Triage Chief Complaint: Chest Pain ED Provider: Devin Kennedy Dx/Rx/DC Orders Prescriptions: No Action mecobalamin (vitamin B12) 1,000 mcg tablet,disintegrating 1,000 mcg SUBLINGUAL DAILY Rx Instructions: place tablet under tongue and allow to dissolve for at least30 secs before swallowing. pt takes in the am ascorbate calcium (vitamin C) 500 mg tablet 500 mg PO DAILY albuterol sulfate 90 mcg/actuation HFA aerosol inhaler 2 puff INHALATION Q4H PRN (Reason: shortness of breath or wheezing) Qty: 8.5 6RF Rx Instructions: administer with spacer coenzyme Q10 100 mg tablet 100 mg PO DAILY Rx Instructions: pt takes in the am potassium chloride 20 mEq tablet extended release 20 meq PO MOWEFR atorvastatin 40 MG tablet 40 mg PO QHS allopurinol 100 MG tablet 100 mg PO BID pyridoxine (vitamin B6) 100 MG tablet 100 mg PO DAILY Rx Instructions: pt takes in the am carvedilol 25 mg tablet 25 mg PO BID Rx Instructions: must administer with a meal/food Entresto 49-51 mg tablet 1 tab PO BID magnesium oxide 400 mg (241.3 mg magnesium) tablet 400 mg PO DAILY Patient Comments: TAKE 1 TABLET BY MOUTH ONCE DAILY sodium bicarbonate 650 mg tablet 650 mg PO DAILY Lactobacillus acidophilus [Probiotic Acidophilus] 1 cap PO SUTUTHSA cholecalciferol (vitamin D3) 50 mcg (2,000 unit) tablet 50 mcg PO DAILY Qty: 1 0RF torsemide 20 mg tablet 20 mg PO MOWEFR nitroglycerin 0.4 mg tablet, sublingual 0.4 mg sublingual Q5M PRN (Reason: Cardiac/Chest Pain) Qty: 30 2RF apixaban 2.5 mg tablet 2.5 mg PO BID Qty: 180 4RF Primary Care Provider: Cheli Grace Referrals: Cheli Grace MD [Primary Care Provider] - What to do if you have Problems For any increased pain, shortness of breath, bleeding, nausea or vomiting, chestpain, or any unexpected problems, contact your Primary Care Provider. Call [facility] ([phone]) or report to the closest Emergency Room. Call 911 if necessary. 11/27/23 1539 <Electronically signed by Devin Kennedy DO> Cosigner Signature (if applicable): CC: Dr. Cheli Grace MD ~ Signed [facility] Work Phone: [phone] Discharge summary Author Guillermo Negrete [facility] November 17, 2023 2:42pm Note Date/Time November 17, 2023 8 :52am [facility] Medical Records Department [address] [place] [address] Emergency Department Summary 11/17/23 MR#: [id number] Acct: [id number] Name: DARCY LUCAS Rep #:[id number] : 1935 88 From: Guillermo Negrete MD PCP: Dr. Cheli Grace MD Status:REG ER Location: ED HPI HPI - GI History of Present Illness Chief Complaint: Flank Pain Detail of Chief Complaint: Bilateral low back pain and abdominal pain Informant: patient and spouse/S.O. Abdominal Pain/Flank Pain Onset: Hours (Onset approximately midnight) Context: Sudden Onset Timing: Continuous Quality: - (Pain) Location: Diffuse and - (Also complains of bilateral low back pain) Current Severity: Mild Maximum Severity: Severe Worsened by: Movement Relieved by: Nothing Nausea/Vomiting/Emesis GI Symptom: Positive for Nausea; Negative for Vomiting Onset: Hours Severity: Mild Episodes: 1 Diarrhea/Melena/Hematochezia GI Symptom: Positive for Diarrhea Onset: Hours Stool Quality: Positive for Loose and Mucous Episodes: 1 Associated Symptoms Associated Symptoms: Negative for Dysuria, Frequency, Hematuria or Urgency Narrative Narrative: Patient is a 88-year-old male with history of sick sinus syndrome, hyperlipidemia, acid reflux, paroxysmal atrial fibrillation who presents because of bilateral low back pain that started last night approximately midnight. Movement seems to make it worse. Nothing makes it better. He also complains ofdiffuse abdominal pain. He denied distention. He does report nausea. He states he had 1 loose mucus-like stool 0300. He states his stool is dark because he is on iron. It was not black or sticky. He does report decreased urine output. He denies dysuria or hematuria. There is no history of trauma. He denies history of diverticulosis or diverticulitis. He does have chronic kidney disease. Prior similar symptoms: No Recent Illness/Hospitalization: No PFSH PFSH Medical History Acute electrocardiogram changes Atherosclerosis of [place] coronary artery of [place] heart without angina pectoris Brain bleed Carotid artery disease Chest pain Chronic kidney disease (CKD) Chronic kidney disease (CKD) Congestive heart failure COVID-19 GERD (gastroesophageal reflux disease) Hypoxemia Ischemic cardiomyopathy Kidney disease, chronic, stage III (GFR 30-59 ml/min) Paroxysmal atrial fibrillation Pneumonia of both lower lobes Home Medications allopurinol 100 mg tablet 100 mg PO BID Gout 11/24/18 [History Last Taken 11/17/23] atorvastatin 40 mg tablet 40 mg PO QHS Cholesterol 11/24/18 [History Last Taken 05/06/22] pyridoxine (vitamin B6) 100 mg tablet 100 mg PO DAILY supplement 11/24/18 [History Last Taken 11/17/23] albuterol sulfate 90 mcg/actuation aerosol inhaler 2 puff inhalation Q4H PRN shortness of breath or wheezing #8.5 grams 12/25/20 [Rx Last Taken Unknown] ascorbate calcium (vitamin C) 500 mg tablet 500 mg PO DAILY supplement 12/25/20 [History Last Taken 11/17/23] mecobalamin (vitamin B12) 1,000 mcg disintegrating tablet,sublingual 1,000 mcg sublingual DAILY supplement 12/25/20 [History Last Taken 11/16/23] cholecalciferol (vitamin D3) 50 mcg (2,000 unit) tablet 50 mcg PO DAILY #1 TAB 03/09/22 [Rx Last Taken 11/17/23] coenzyme Q10 100 mg tablet 100 mg PO DAILY 09/24/22 [History Last Taken 11/16/23] torsemide 20 mg tablet 20 mg PO MOWEFR edema 11/19/22 [History Last Taken 11/17/23] potassium chloride 20 mEq tablet,extended release 20 meq PO MOWEFR Hypokalemia 06/30/23 [History Last Taken 11/17/23] nitroglycerin 0.4 mg sublingual tablet 0.4 mg sublingual Q5M PRN Cardiac/Chest Pain #30 tabs 11/09/23 [Rx Last Taken Unknown] apixaban 2.5 mg tablet 2.5 mg PO BID Blood thinner #180 tabs 09/30/23 [Rx Last Taken 11/17/23] Lactobacillus acidophilus 1 cap PO SUTUTHSA PROBIOTIC 11/17/23 [History Last Taken 11/16/23] carvedilol 25 mg tablet 25 mg PO BID blood pressure 11/17/23 [History Last Taken 11/17/23] magnesium oxide 400 mg (241.3 mg magnesium) tablet 400 mg PO DAILY SUPPLEMENT 11/17/23 [History Last Taken 11/17/23] sacubitril 49 mg-valsartan 51 mg tablet (Entresto) 1 tab PO BID BLOOD PRESSURE 11/17/23 [History Last Taken 11/17/23] sodium bicarbonate 650 mg tablet 650 mg PO DAILY SUPPLEMENT 11/17/23 [History Last Taken 11/17/23] Allergy/AdvReac Type Severity Reaction Status Date / Time No Known Allergies Allergy Verified 11/17/23 08:29 Family History Father CAD (coronary artery disease) Surgical History History of brain surgery History of coronary artery bypass graft x 3 History of craniotomy History of permanent cardiac pacemaker placement Social History (Updated 11/17/23 @ 08:[address] Guillermo Negrete MD) household members: spouse Smoking Status: Never smoker alcohol intake: never substance use type: does not use caffeine: No ROS ROS ED Constitutional Constitutional ED: Reports chills; Denies fever(s) or subjective ENT ENT ED: Denies ear pain, rhinorrhea or sore throat Cardiovascular Cardiovascular: Denies chest pain, orthopnea or palpitations Respiratory/Chest Respiratory/Chest: Denies cough, dyspnea, dyspnea on exertion or orthopnea Gastrointestinal Gastrointestinal: Reports abdominal pain, diarrhea and nausea; Denies constipation, melena or vomiting Genitourinary Genitourinary ED: Denies dysuria, hematuria or urinary frequency Musculoskeletal Musculoskeletal: Reports back pain; Denies arthralgias, myalgias or neck pain Integumentary Denies rash Neurologic Neurologic: Reports weakness Hematologic/Lymphatic Hematologic/Lymphatic: Denies easy bleeding or easy bruising EXAM Physical Exam Const Vital Signs: 11/17/23 08:28 Temperature 97.1 F L Temperature Source Temporal Pulse Rate 92 Respiratory Rate 14 Blood Pressure 150/75 H Blood Pressure Mean 100 Pulse Ox 95 Oxygen Delivery Method Room Air Positive well nourished and well developed Constitutional Narrative: Patient does not appear well. He appears pale. General Appearance ED: well developed, NAD and pallor HEENT Reports moist mucous membranes HEENT Narrative: Ears are normal. Nares are patent. Posterior pharynx without erythema or exudate. normocephalic and atraumatic Eyes PERRL and EOMs intact bilaterally General Eye ED: Yes pale conjunctiva; Negative for scleral icterus Neck no lymphadenopathy, supple and no JVD Resp normal respiratory effort and clear to auscultation bilaterally Cardio regular rate, regular rhythm, S1 normal heart sound, S2 normal heart sound and no murmurs GI non-distended and no masses; Negative for non-tender GI Narrative: There is no palpable pulsatile mass. There is no abdominal bruit. There is no evidence of umbilical hernia. Auscultation: hypoactive bowel sounds Palpation: soft, tender LLQ, RLQ and LUQ, guarding and rebound tenderness present other (Left lower quadrant region.); Negative for rigid, hepatomegaly, splenomegaly, hernia, mass or pulsatile mass Narrative: There is no inguinal lymphadenopathy or mass. Back/Spine no CVA tenderness Extremity full ROM General Extremety ED: Negative for edema or tenderness General Extremity: Negative for edema Neuro CN's II-XII intact bilaterally, moves all extremities and no sensory deficits noted Sensorium / Orientation: alert Psych mental status grossly normal and thought process normal Skin no wounds General Skin Exam: pallor; Negative for jaundice MDM MDM MDM Narrative Medical decision making narrative: Patient with significant left lower quadrant pain this may represent diverticulosis or diverticulitis. He does have a remote history of colitis per old records. This may also represent pneumoperitoneum malignancy. This could represent infectious etiology. Back pain is mechanical. Doubt it is related tohis abdominal findings. To evaluate his guarding and peritoneal findings left lower quadrant CT of the abdomen with IV contrast was ordered to evaluate for diverticulitis, pneumoperitoneum versus colitis. Will wait for BUN/creatinine since she has had elevated BUN/creatinine in the past. CBC was obtained assess white count as well as differential. Clinically patient appears pale. If his BUN/creatinine ratio is elevated even though he denies black stool will perform rectal to determine if he has a GI bleed. History & Record Review Additional record(s) reviewed:: Prior ED visit and Prior labs Lab Data Attestation: I reviewed the patient's lab results. Lab results narrative: White count is normal. There is slight increase in neutrophils. H&H is 9.6 and29.4 which is patient's baseline. MCV is elevated 103.5 which is patient's baseline. BUN/creatinine are elevated from baseline at 37 and 2.28. Estimated GFR is 29. BUN and creatinine ratio is less than 20-1. Glucose is elevated 138with a normal CO2 anion gap. Potassium is 3.0. Labs: Laboratory Results - last 24 hr 11/17/23 11/17/23 08:48 09:00 WBC 5.4 RBC 2.84 L Hgb 9.6 L Hct 29.4 L MCV 103.5 H MCH 33.8 H MCHC 32.7 RDW Std Deviation 58.4 H RDW Coeff of Vanesa 15.6 H Plt Count 126 L MPV 10.6 Immature Gran % (Auto) 0.400 Neut % (Auto) 80.1 H Lymph % (Auto) 12.5 L Wharton % (Auto) 4.3 Eos % (Auto) 2.1 Baso % (Auto) 0.6 Absolute Neuts (auto) 4.3 Absolute Lymphs (auto) 0.67 L Nucleated RBC % 0 Sodium 140 Potassium 3.0 L Chloride 112 H Carbon Dioxide 23.0 Anion Gap 5 BUN 37 H Creatinine 2.28 H Est GFR (MDRD) Af Amer 35 L Est GFR (MDRD) Non-Af 29 L BUN/Creatinine Ratio 16.2 Glucose 138 H Lactic Acid 1.5 Calcium 9.3 Total Bilirubin 1.20 H AST 18 ALT 23 Alkaline Phosphatase 119 H Total Protein 7.1 Albumin 3.6 Globulin 3.5 Albumin/Globulin Ratio 1.0 Radiography Diagnostic Testing: Clinical Impression(s) from Imaging Studies Abdomen/Pelvis CT 11/17/23 08:43 IMPRESSION: 1. Moderate amount of gallbladder wall edema versus pericholecystic fluid. Gallbladder ultrasound will be helpful. 2. Sigmoid diverticulosis without diverticulitis. 3. 2.6 cm left renal parenchymal cyst is simple cyst. No follow-up is necessary. 4. 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 5. Mild ascites in the abdomen and pelvis. 6. Moderate right posterior pleural effusion and minimal left posterior pleural effusion. Electronically Signed: Jadon Smtih MD at 10:59 EST , Gallbladder Ultrasound 11/17/23 11:11 IMPRESSION: 1. Abnormal 8.1 mm edema/thickening of the gallbladder wall without gallstones but negative for sonographic Guerra''s sign. 2. Small ascites and right pleural effusion. Electronically Signed: Jadon Smith MD at 13:27 EST , Interpretation of ultrasound reveals small amount of ascites with edema and thickening of the gallbladder wall without gallstones and a negative sonographicMurphy sign. In light of this we will have patient follow-up with surgery as anoutpatient. White count is normal. Transaminases were normal. CT of the abdomen pelvis without contrast because of the GFR being less than 30 reveals a significant right pleural effusion. There is evidence of ascites. There is inflammation of the gallbladder which may be due to the ascitic fluid. There isevidence of diverticulosis. Question of mild inflammatory changes left lower quadrant. Bladder is full. Kidneys appear normal. This was reviewed by me at 1002. Discharge Plan Triage Chief Complaint: Flank Pain ED Provider: Guillermo Negrete Dx/Rx/DC Orders Clinical Impression: Ascites, Anemia in chronic illness, Chronic kidney disease, Cholecystitis, chronic, Dehydration, mild, Abdominal pain of unknown etiology Instructions: ED Ascites, ED Abdominal Pain Unkn Cause Male... Prescriptions: No Action mecobalamin (vitamin B12) 1,000 mcg tablet,disintegrating 1,000 mcg SUBLINGUAL DAILY Rx Instructions: place tablet under tongue and allow to dissolve for at least30 secs before swallowing. pt takes in the am ascorbate calcium (vitamin C) 500 mg tablet 500 mg PO DAILY albuterol sulfate 90 mcg/actuation HFA aerosol inhaler 2 puff INHALATION Q4H PRN (Reason: shortness of breath or wheezing) Qty: 8.5 6RF Rx Instructions: administer with spacer coenzyme Q10 100 mg tablet 100 mg PO DAILY Rx Instructions: pt takes in the am potassium chloride 20 mEq tablet extended release 20 meq PO MOWEFR atorvastatin 40 MG tablet 40 mg PO QHS allopurinol 100 MG tablet 100 mg PO BID pyridoxine (vitamin B6) 100 MG tablet 100 mg PO DAILY Rx Instructions: pt takes in the am carvedilol 25 mg tablet 25 mg PO BID Rx Instructions: must administer with a meal/food Entresto 49-51 mg tablet 1 tab PO BID magnesium oxide 400 mg (241.3 mg magnesium) tablet 400 mg PO DAILY Patient Comments: TAKE 1 TABLET BY MOUTH ONCE DAILY sodium bicarbonate 650 mg tablet 650 mg PO DAILY Lactobacillus acidophilus [Probiotic Acidophilus] 1 cap PO SUTUTHSA cholecalciferol (vitamin D3) 50 mcg (2,000 unit) tablet 50 mcg PO DAILY Qty: 1 0RF torsemide 20 mg tablet 20 mg PO MOWEFR nitroglycerin 0.4 mg tablet, sublingual 0.4 mg sublingual Q5M PRN (Reason: Cardiac/Chest Pain) Qty: 30 2RF apixaban 2.5 mg tablet 2.5 mg PO BID Qty: 180 4RF Primary Care Provider: Cheli Grace Referrals: Cheli Grace MD [Primary Care Provider] - 1 Week Disposition Disposition: Home, Self Care What to do if you have Problems For any increased pain, shortness of breath, bleeding, nausea or vomiting, chestpain, or any unexpected problems, contact your Primary Care Provider. Call [facility] ([phone]) or report to the closest Emergency Room. Call 911 if necessary. 11/17/23 1442 <Electronically signed by Guillermo Negrete MD> Cosigner Signature (if applicable): CC: Dr. Cheli Grace MD ~ Signed [facility] Work Phone: 1(165) 465-686312-26-2023 Discharge summary Author Gómez Nowak [facility] October 19, 2023 12:37pm Note Date/Time October 19, 2023 12:36pm [facility] Medical Records Department [address] [place] [address] Discharge Summary 10/19/23 1234 MR#: [id number] Acct: [id number] Name: DARCY LUCAS Rep #:[id number] : 1935 88 From: Gómez Nowak DO PCP: Dr. Cheli Grace MD Status:ADM IN Location: [facility] [id number] Providers Date of Admission: 10/18/23 Primary Care Physician: Cheli Grace MD Reason For Visit: COVID 19 POSITIVE, MILD LACTIC ACIDOSIS & GENERALI Diagnosis Discharge Diagnosis (1) COVID: Status: Acute Code(s): U07.1 - COVID-19 Plan Presents with weakness. He had COVID-19 but was stable and not requiring oxygen. Given his advanced age it made him weaker. Patient was evaluated and did not do well with therapy and was only able to walk a short distance but the next day, the , patient was able to walk 270 feet with front wheeled walker. Patient will be discharged home in stable condition. COVID 19 * acute infection. Onset likely October 17. Patient will need to quarantine from the through and then wear a mask from through October 27. * On room air. Does not need treatment with remdesivir nor dexamethasone. * DC azithromycin Debility * Improved given advanced age, multiple medical comorbidities and COVID 19. * PT OT eval and treat. Initially patient worked with therapy today and only walked 5 feet but subsequently walked 270 feet so clearly doing better. Patient will not require alf facility at this time. Will plan for home health care.. Chronic conditions: * CAD: continue carvedilol * CHF: compensated. continue with torsemide. * GERD * pAfib: anticoagulated w apixaban. * CKD IIIb: stable * hyperuricemia: no acute gout flare. continue allopurinol * HLP: continue statin VTE prophylaxis: not indicated as he is already on apixaban. Disposition: Home with home health care. Medications at Discharge Home Medications allopurinol 100 mg tablet 100 mg PO BID Gout 11/24/18 atorvastatin 40 mg tablet 40 mg PO QHS Cholesterol 11/24/18 pyridoxine (vitamin B6) 100 mg tablet 100 mg PO DAILY supplement 11/24/18 albuterol sulfate 90 mcg/actuation aerosol inhaler 2 puff inhalation Q4H PRN shortness of breath or wheezing #8.5 grams 12/25/20 ascorbate calcium (vitamin C) 500 mg tablet 500 mg PO DAILY supplement 12/25/20 mecobalamin (vitamin B12) 1,000 mcg disintegrating tablet,sublingual 1,000 mcg sublingual DAILY supplement 12/25/20 cholecalciferol (vitamin D3) 50 mcg (2,000 unit) tablet 50 mcg PO DAILY #1 TAB 03/09/22 coenzyme Q10 100 mg tablet 100 mg PO DAILY 09/24/22 torsemide 20 mg tablet 20 mg PO .COMPLEX edema 11/19/22 carvedilol 12.5 mg tablet 25 mg (2 x 12.5 mg) PO BID HTN #180 tabs 06/30/23 potassium chloride 20 mEq tablet,extended release 20 meq PO DAILY Hypokalemia 06/30/23 sodium bicarbonate 325 mg tablet 650 mg PO DAILY 06/30/23 nitroglycerin 0.4 mg sublingual tablet 0.4 mg sublingual Q5M PRN Cardiac/Chest Pain #30 tabs 09/02/23 apixaban 2.5 mg tablet 2.5 mg PO BID Blood thinner #180 tabs 09/30/23 Hospital Course Operations None Procedures None Summary of Care Provided Minutes Spent on Discharge: 31 Weight / BMI Weight Weight: 68.7 kg Body Mass Index (BMI) 22.9 ABG / Lab / Microbiology Data 10/18/23 03:44 10/18/23 03:44 Microbiology: Microbiology 10/17/23 23:35 Urine, Clean Catch Urine Culture - Preliminary Culture exhibits no growth. 10/17/23 22:35 Nasal Secretion SARS-CoV-2 & FLU Antigen (Rapid) - Final SARS-CoV-2 (COVID 19) D/C Instructions Discharge Diet: No restrictions Discharge Activity: Use Walker Meaningful Use Info Meaningful Use Diagnoses (Choose all that apply): None applicable Discharge Plan Admission Admit Date/Time: 10/18/23 01:06 Primary Reason for Your Visit: Weakness secondary to COVID-19 Attending Provider: Gómez Nowak Primary Care Provider: Cheli Grace Consulting Providers: Capri Scott Instructions Additional Instructions / Restrictions: You presented with weakness likely due to nohemi COVID-19. You are pretty weak when you arrived but actually did much better thereafter. Therapy is recommending front wheeled walker and additional therapy services. Will look togetting home health care for you. For your COVID-19, recommending quarantining through the and then wearing a mask from the through October 27 when you are around others. Discharge Orders/Prescriptions Prescriptions: Continued mecobalamin (vitamin B12) 1,000 mcg tablet,disintegrating 1,000 mcg SUBLINGUAL DAILY Rx Instructions: place tablet under tongue and allow to dissolve for at least30 secs before swallowing ascorbate calcium (vitamin C) 500 mg tablet 500 mg PO DAILY albuterol sulfate 90 mcg/actuation HFA aerosol inhaler 2 puff INHALATION Q4H PRN (Reason: shortness of breath or wheezing) Qty: 8.5 6RF Rx Instructions: administer with spacer coenzyme Q10 100 mg tablet 100 mg PO DAILY potassium chloride 20 mEq tablet extended release 20 meq PO DAILY Rx Instructions: MWF carvedilol 12.5 mg tablet 25 mg PO BID Qty: 180 3RF atorvastatin 40 MG tablet 40 mg PO QHS allopurinol 100 MG tablet 100 mg PO BID pyridoxine (vitamin B6) 100 MG tablet 100 mg PO DAILY cholecalciferol (vitamin D3) 50 mcg (2,000 unit) tablet 50 mcg PO DAILY Qty: 1 0RF torsemide 20 mg tablet 20 mg PO .COMPLEX Rx Instructions: 20 mg orally Mon, Weds, Fri; sodium bicarbonate 325 mg tablet 650 mg PO DAILY nitroglycerin 0.4 mg tablet, sublingual 0.4 mg sublingual Q5M PRN (Reason: Cardiac/Chest Pain) Qty: 30 2RF apixaban 2.5 mg tablet 2.5 mg PO BID Qty: 180 4RF Referrals / Follow Up: Cheli Grace MD [Primary Care Provider] - Within 2 Weeks Disposition Disposition (needs filled in before D/C Order can be placed): Home Health Service Charges/Coding Visit Charges Inpatient E&M: 36509 Disch Hosp >30min 10/19/23 1237 <Electronically signed by Gómez Nowak DO> Cosigner Signature (if applicable): CC: Dr. Cheli Grace MD; Dr. Gómez Nowak DO~ Signed [facility] Work Phone: 1(130) 728-415912-26-2023 Progress note Author Gómez Nowak [facility] October 19, 2023 12:34pm Note Date/Time October 19, 2023 7:29am [facility] Medical Records Department [address] [place] [address] [place] [address] Progress Note - Hospitalist 10/19/23 0727 MR#: [id number] Acct: [id number] Name: DARCY LUCAS Rep #:[id number] : 1935 88 From: Gómez Nowak DO PCP: Dr. Cheli Grace MD Status:ADM IN Location: [facility] [id number] Reason for Visit Reason for Visit: Diagnoses Acidosis, unspecified (10/18/23) Weakness (10/18/23) COVID-19 (10/18/23) Subjective Subjective Feeling better. Able to go to the restroom with using a walker. Patient did work with therapy today and was able to walk 270 feet with a front wheeled walker Objective Data Objective Data Vital Signs: Vital Signs Temp Pulse Resp BP Pulse Ox O2 Del Method 37.6 C H 76 18 126/66 H 96 Room Air 10/19/23 03:22 10/19/23 03:22 10/19/23 03:22 10/19/23 03:22 10/19/23 03:22 10/19/23 06:55 Oxygen Delivery Method Room Air Weight: 68.7 kg Body Mass Index (BMI) 22.9 Intake & Output: Intake and Output for Last 24 Hours 10/17/23 10/18/23 10/19/23 23:59 23:59 23:59 Intake Total 3631.25 / 3631.25 1175 / 1175 Output Total 1550 / 1550 300 / 300 Balance 2081.25 / 2081.25 875 / 875 Lab / Micro Data 10/18/23 03:44 10/18/23 03:44 Micro: Microbiology 10/17/23 22:35 Nasal Secretion SARS-CoV-2 & FLU Antigen (Rapid) - Final SARS-CoV-2 (COVID 19) Physical Exam Const alert and no apparent distress Constitutional Narrative: Up in chair. Nontoxic. No respiratory distress. Conversational dyspnea. Appears pretty good today. Neuro Sensorium / Orientation: awake and alert Assessment & Plan Assessment/Plan (1) COVID: PLAN: Plan COVID 19 * acute infection. Onset likely October 17. Patient will need to quarantine from the through and then wear a mask from through October 27. * On room air. Does not need treatment with remdesivir nor dexamethasone. * DC azithromycin Debility * Improved given advanced age, multiple medical comorbidities and COVID 19. * PT OT eval and treat. Initially patient worked with therapy today and only walked 5 feet but subsequently walked 2070 feet so [place] doing better. Patient will not require alf facility at this time. Will plan for home health care.. Chronic conditions: * CAD: continue carvedilol * CHF: compensated. continue with torsemide. * GERD * pAfib: anticoagulated w apixaban. * CKD IIIb: stable * hyperuricemia: no acute gout flare. continue allopurinol * HLP: continue statin VTE prophylaxis: not indicated as he is already on apixaban. Disposition: Home with home health care. 10/19/23 1234 <Electronically signed by Gómez Nowak DO> Cosigner Signature (if applicable): CC: ~ Signed [facility] Work Phone: 1(316) 517-994412-25-2023 Progress note Author Gómez Nowak [facility] October 18, 2023 10:34am Note Date/Time October 18, 2023 7:25am [facility] Medical Records Department [address] [place] [id number] Progress Note - Hospitalist 10/18/2320 MR#: [id number] Acct: [id number] Name: DARCY LUCAS Rep #:[id number] : 1935 88 From: Gómez Nowak DO PCP: Dr. Cheli Grace MD Status:ADM IN Location: [place] [address] Reason for Visit Reason for Visit: Diagnoses Acidosis, unspecified (10/18/23) Weakness (10/18/23) COVID-19 (10/18/23) Subjective Subjective Feels well. Feels ready to go home. Objective Data Objective Data Vital Signs: Vital Signs Temp Pulse Resp BP Pulse Ox O2 Del Method 36.9 C 94 16 121/64 H 96 Room Air 10/18/23 05:13 10/18/23 05:13 10/18/23 05:13 10/18/23 05:13 10/18/23 05:13 10/18/23 05:13 Oxygen Delivery Method Room Air Weight: 68.4 kg Body Mass Index (BMI) 22.8 Intake & Output: Intake and Output for Last 24 Hours 10/16/23 10/17/23 10/18/23 23:59 23:59 23:59 Intake Total 2199 / 2199 Balance 2199 / 2199 Lab / Micro Data 10/18/23 03:44 10/18/23 03:44 Labs: Laboratory Results - last 24 hr 10/17/23 21:00: WBC 6.5, RBC 2.98 L, Hgb 10.0 L, Hct 31.7 L, MCV 106.4 H, MCH 33.6 H, MCHC 31.5 L, RDW Std Deviation 59.8 H, RDW Coeff of Vanesa 15.4 H, Plt Count 153, MPV 9.7, Immature Gran % (Auto) 0.300, Neut % (Auto) 73.2 H, Lymph % (Auto) 10.3 L, Wharton % (Auto) 8.9, Eos % (Auto) 6.8 H, Baso % (Auto) 0.5, Absolute Neuts (auto) 4.8, Absolute Lymphs (auto) 0.67 L, Nucleated RBC % 0, PT 16.7 H, INR 1.4, APTT 37.7 H, Sodium 140, Potassium 4.5, Chloride 113 H, Carbon Dioxide 22.0, Anion Gap 5, BUN 52 H, Creatinine 2.12 H, Estim Creat Clear Calc 23.75, Est GFR (MDRD) Af Amer 38 L, Est GFR (MDRD) Non-Af 32 L, BUN/Creatinine Ratio 24.5 H, Glucose 130 H, Calcium 8.9, Total Bilirubin 1.00, AST 21, ALT 46, Alkaline Phosphatase 95, Troponin I High Sens 37, Total Protein 6.8, Albumin 3.6, Globulin 3.2, Albumin/Globulin Ratio 1.1 10/17/23 22:50: Lactic Acid 2.1 H* 10/17/23 23:35: Urine Color Yellow, Urine Clarity Clear, Urine pH 6.0, Ur Specific [place] 1.020, Urine Protein 30 H, Urine Glucose (UA) Normal, Urine Ketones Negative, Urine Occult Blood Negative, Urine Nitrite Negative, Urine Bilirubin Negative, Urine Urobilinogen Normal, Ur Leukocyte Esterase Negative, Urine RBC 0 SEEN, Urine WBC 0 SEEN, Ur Squamous Epith Cells 0 SEEN, Urine Bacteria 0 SEEN, Urine Mucus 0 SEEN 10/18/23 03:44: WBC 4.8, RBC 2.67 L, Hgb 9.2 L, Hct 28.3 L, MCV 106.0 H, MCH 34.5 H, MCHC 32.5, RDW Std Deviation 59.7 H, RDW Coeff of Vanesa 15.4 H, Plt Count 124 L, MPV 11.0, Immature Gran % (Auto) 0.400, Neut % (Auto) 81.0 H, Lymph % (Auto) 8.6 L, Wharton % (Auto) 6.7, Eos % (Auto) 2.9, Baso % (Auto) 0.4, Absolute Neuts (auto) 3.9, Absolute Lymphs (auto) 0.41 L, Nucleated RBC % 0, DifferentialComment SCANNED, Schistocytes RARE, Sodium 141, Potassium 4.0, Chloride 115 H, Carbon Dioxide 19.0 L, Anion Gap 7, BUN 51 H, Creatinine 1.91 H, Estim Creat Clear Calc 26.36, Est GFR (MDRD) Af Amer 43 L, Est GFR (MDRD) Non-Af 36 L, BUN/Creatinine Ratio 26.7 H, Glucose 123 H, Calcium 8.0 L, Phosphorus 2.8, Magnesium 1.7, Total Bilirubin 0.70, AST 56 H, ALT 70 H, Alkaline Phosphatase 109, Total Protein 5.5 L, Albumin 2.9 L, Globulin 2.6, Albumin/Globulin Ratio 1.1, TSH 1.27 10/18/23 03:50: Lactic Acid 0.8 Micro: Microbiology 10/17/23 22:35 Nasal Secretion SARS-CoV-2 & FLU Antigen (Rapid) - Final SARS-CoV-2 (COVID 19) Radiography Diagnostic Testing: Radiology Impression Chest X-Ray 10/17/23 23:10 IMPRESSION: No radiographic evidence of acute cardiopulmonary disease. Cardiomegaly and pacer without florid edema. Electronically Signed: Vincent Cadet MD at 23:46 EST , Physical Exam Const alert Constitutional Narrative: no respiratory distress. no conversational dyspnea. Resp normal respiratory effort, no retractions, no use of accessory muscles and clearto auscultation bilaterally Cardio regular rate, regular rhythm, S1 normal heart sound and S2 normal heart sound GI normal to inspection, nondistended, normoactive bowel sounds Neuro Sensorium / Orientation: awake and alert Assessment & Plan Assessment/Plan (1) COVID: PLAN: Plan COVID 19 * acute infection. Onset * On room air. Does not need treatment with remdesivir nor dexamethasone. * DC azithromycin Debility * given advanced age, multiple medical comorbidities and COVID 19. * PT OT eval and treat. Patient worked with therapy today and only walked 5 feet. Patient had slow shuffling gait * Pt too weak to return home safely at this time. Chronic conditions: * CAD: continue carvedilol * CHF: compensated. continue with torsemide. * GERD * pAfib: anticoagulated w apixaban. * CKD IIIb: stable * hyperuricemia: no acute gout flare. continue allopurinol * HLP: continue statin VTE prophylaxis: not indicated as he is already on apixaban. Charges/Coding Visit Charges Inpatient E&M: 29012 Subs Hosp L2 10/18/23 1034 <Electronically signed by Gómez Nowak DO> Cosigner Signature (if applicable): CC: ~ Signed [facility] Work Phone: 1(116) 250-551312-25-2023 History and physical note Author Capri Andino [facility] October 18, 2023 5:21am Note Date/Time October 18, 2023 12:24am [facility] Medical Records Department [address] [place] [id number] H&P Exam - Hospitalist 10/18/23 0024 MR#: [id number] Acct: [id number] Name: DARCY LUCAS Rep #:[id number] : 1935 88 From: Capri Viramontes DO PCP: Dr. Cheli Grace MD Status:ADM IN Location: [facility] [id number] HPI - General General Date of Admission: 10/18/23 Date of Service: 10/18/23 Chief Complaint: Generalized weakness with inability to get up from toilet HPI Narrative DARCY LUCAS, is a 88 M with a past medical history of essential hypertension, hyperlipidemia, paroxysmal atrial fibrillation; on apixaban, coronary artery disease; is post CABG x 3 (2014), history of ischemic cardiomyopathy, history ofchronic diastolic CHF: with preserved left ventricular ejection fraction, history of sick sinus syndrome; status post permanent pacemaker, history of carotid artery disease, history of intracerebral hemorrhage; s/p craniotomy (2019), chronic anemia, chronic kidney disease stage III, chronic gout, osteoarthritis, history of COVID-19 and recent history of pneumonia in late August 2023; with patient receiving home health care until last week who presents to [facility] ER complaining of being generally weak with inability to get off the toilet. Mr. Lucas reports his symptoms began approximately 1 hour prior to arrival when he went to the bathroom and was so generally weak he could not stand up. EMS was activated and noted that he had afever of 102 ?F though the patient denied feeling feverish. He denies associated dysuria, hematuria, nausea, vomiting, diarrhea or constipation but hedoes admit to occasional chills. His family can no longer care for him at home given his current condition and they are apparently seeking possible alf facility for subacute rehabilitation. The ER his assay returned positive for COVID-19 complicated by laboratory evidence of mild lactic acidosisof 2.1 mmol/L present on admission causing generalized weakness with ambulatory dysfunction after a recent episode of severe pneumonia and he was then admitted to the general medical floor under droplet and isolation precautions for ongoingcare for stay that is expected to be greater than 48 hours. [facility] Medical History Acute electrocardiogram changes Atherosclerosis of [place] coronary artery of [place] heart without angina pectoris Brain bleed Carotid artery disease Chest pain Chronic kidney disease (CKD) Congestive heart failure COVID-19 GERD (gastroesophageal reflux disease) Hypoxemia Ischemic cardiomyopathy Kidney disease, chronic, stage III (GFR 30-59 ml/min) Paroxysmal atrial fibrillation Pneumonia of both lower lobes Home Medications allopurinol 100 mg tablet 100 mg PO BID Gout 11/24/18 [History Last Taken 09/19/23 03:30] atorvastatin 40 mg tablet 40 mg PO QHS Cholesterol 11/24/18 [History Last Taken 05/06/22] pyridoxine (vitamin B6) 100 mg tablet 100 mg PO DAILY supplement 11/24/18 [History Last Taken 09/19/23 03:30] albuterol sulfate 90 mcg/actuation aerosol inhaler 2 puff inhalation Q4H PRN shortness of breath or wheezing #8.5 grams 12/25/20 [Rx Last Taken Unknown] ascorbate calcium (vitamin C) 500 mg tablet 500 mg PO DAILY supplement 12/25/20 [History Last Taken 09/19/23 03:30] mecobalamin (vitamin B12) 1,000 mcg disintegrating tablet,sublingual 1,000 mcg sublingual DAILY supplement 12/25/20 [History Last Taken 05/07/22] cholecalciferol (vitamin D3) 50 mcg (2,000 unit) tablet 50 mcg PO DAILY #1 TAB 03/09/22 [Rx Last Taken 09/19/23 03:30] coenzyme Q10 100 mg tablet 100 mg PO DAILY 09/24/22 [History Last Taken Unknown] torsemide 20 mg tablet 20 mg PO .COMPLEX edema 11/19/22 [History Last Taken Unknown] carvedilol 12.5 mg tablet 25 mg (2 x 12.5 mg) PO BID HTN #180 tabs 06/30/23 [Rx Last Taken 09/19/23 03:30] potassium chloride 20 mEq tablet,extended release 20 meq PO DAILY Hypokalemia 06/30/23 [History Last Taken Unknown] sodium bicarbonate 325 mg tablet 650 mg PO DAILY 06/30/23 [History Last Taken Unknown] nitroglycerin 0.4 mg sublingual tablet 0.4 mg sublingual Q5M PRN Cardiac/Chest Pain #30 tabs 09/02/23 [Rx Last Taken Unknown] apixaban 2.5 mg tablet 2.5 mg PO BID Blood thinner #180 tabs 09/30/23 [Rx Last Taken Unknown] Allergy/AdvReac Type Severity Reaction Status Date / Time No Known Allergies Allergy Verified 10/17/23 21:17 Family History Father CAD (coronary artery disease) Surgical History History of brain surgery History of coronary artery bypass graft x 3 History of craniotomy History of permanent cardiac pacemaker placement Social History Smoking Status: Never smoker alcohol intake: never substance use type: does not use caffeine: No ROS ROS Narrative Review of systems: Constitutional: Patient admits to chills but denies fever though his temperaturewas 102 ?F on EMS evaluation. Eyes: Patient denies visual changes or discharge from eyes. ENT: Patient denies runny nose sore throat or ear pain. Cardiovascular: Patient denies chest pain, palpitations or pedal edema. Respiratory: Patient denies shortness of breath or cough. Abdominal: Patient denies abdominal pain, nausea, vomiting, diarrhea or constipation. Genitourinary: Patient denies dysuria, hematuria or urinary frequency. Musculoskeletal: Patient denies myalgias or arthralgias but he is generally weakwith inability to stand up from a toilet. Skin: Patient denies rash or jaundice. Neurologic: Patient denies headache, lightheadedness or focal neurologic weakness. Psychiatric: Patient denies uncontrolled depression or anxiety. Allergic: Patient denies lip swelling, tongue swelling or urticaria. Hematologic: Patient denies easy bleeding or easy bruisability. 14 point review systems otherwise negative except for positives noted above in HPI. Vital Signs Vital Signs Vital Signs: 10/17/23 21:17 10/17/23 23:03 10/17/23 23:54 Temperature 98.7 F 98.3 F Temperature Source Oral Pulse Rate 76 100 Respiratory Rate 18 16 Blood Pressure 129/66 H 140/74 H Blood Pressure Mean 87 96 Pulse Ox 96 96 Oxygen Delivery Method Room Air Room Air 10/17/23 23:57 Temperature 98.0 F Temperature Source Temporal Pulse Rate 100 Respiratory Rate 16 Blood Pressure 140/74 H Blood Pressure Mean 96 Pulse Ox 94 Oxygen Delivery Method Room Air Weight Weight: 154 lb 12.232 oz Body Mass Index (BMI) 23.5 Physical Exam Const alert, oriented x3, no apparent distress and average body habitus Constitutional Narrative: Patient is elderly and appears chronically ill. General Appearance: cooperative HEENT normocephalic, head/scalp atraumatic, hearing grossly normal bilaterally and moist oral mucous membranes Eyes PERRL and EOMs intact bilaterally Neck no lymphadenopathy and supple Resp Resp Narrative: Decreased breath sounds throughout. Cardio regular rate and regular rhythm GI normal to inspection, nondistended, normoactive bowel sounds, soft to palpation,non-tender and non-distended Extremity normal to inspection and full ROM Skin Skin Narrative: Patient has no evidence of rash or jaundice at this time. Neuro oriented x3, CN's II-XII intact bilaterally, moves all extremities and no focal motor deficits Sensorium / Orientation: awake, alert, oriented to person, oriented to place andoriented to time Speech: speech normal Motor Exam: strength 5/5 throughout Psych affect normal Results Medical Records Data Attestation: I reviewed the patient's medical records Lab / Micro Data Attestation: I reviewed the patient's lab results. 10/17/23 21:00 10/17/23 21:00 Labs: Laboratory Results - last 24 hr 10/17/23 21:00: WBC 6.5, RBC 2.98 L, Hgb 10.0 L, Hct 31.7 L, MCV 106.4 H, MCH 33.6 H, MCHC 31.5 L, RDW Std Deviation 59.8 H, RDW Coeff of Vanesa 15.4 H, Plt Count 153, MPV 9.7, Immature Gran % (Auto) 0.300, Neut % (Auto) 73.2 H, Lymph % (Auto) 10.3 L, Wharton % (Auto) 8.9, Eos % (Auto) 6.8 H, Baso % (Auto) 0.5, Absolute Neuts (auto) 4.8, Absolute Lymphs (auto) 0.67 L, Nucleated RBC % 0, PT 16.7 H, INR 1.4, APTT 37.7 H, Sodium 140, Potassium 4.5, Chloride 113 H, Carbon Dioxide 22.0, Anion Gap 5, BUN 52 H, Creatinine 2.12 H, Estim Creat Clear Calc 23.75, Est GFR (MDRD) Af Amer 38 L, Est GFR (MDRD) Non-Af 32 L, BUN/Creatinine Ratio 24.5 H, Glucose 130 H, Calcium 8.9, Total Bilirubin 1.00, AST 21, ALT 46, Alkaline Phosphatase 95, Troponin I High Sens 37, Total Protein 6.8, Albumin 3.6, Globulin 3.2, Albumin/Globulin Ratio 1.1 10/17/23 22:50: Lactic Acid 2.1 H* 10/17/23 23:35: Urine Color Yellow, Urine Clarity Clear, Urine pH 6.0, Ur Specific [place] 1.020, Urine Protein 30 H, Urine Glucose (UA) Normal, Urine Ketones Negative, Urine Occult Blood Negative, Urine Nitrite Negative, Urine Bilirubin Negative, Urine Urobilinogen Normal, Ur Leukocyte Esterase Negative Micro: Microbiology 10/17/23 22:35 Nasal Secretion SARS-CoV-2 & FLU Antigen (Rapid) - Final SARS-CoV-2 (COVID 19) Imagaing Radiology Impression Chest X-Ray 10/17/23 23:10 IMPRESSION: No radiographic evidence of acute cardiopulmonary disease. Cardiomegaly and pacer without florid edema. Electronically Signed: Vincent Cadet MD at 23:46 EST Reading Location ID and State: [facility] / [place] Tel , Service support , Assessment & Plan Assessment/Plan (1) COVID: (2) Lactic acidosis: (3) Generalized weakness: PLAN: Plan 1. Assay positive for COVID-19 with fever of 102 ?F present on admission in thesetting of recent admission in August 2023 for pneumonia - Admit to general medical floor under contact and droplet precautions. Start azithromycin with notable antiviral effectiveness and give as needed nebulizers. Give vitamin D 3, vitamin C and zinc to help boost immune response and speed recovery. Give Tylenol as needed pain or fever. 2. Mild lactic acidosis of 2.1 mmol/L present on admission likely arising from #1 - Patient has no evidence of sepsis at this time. Check second lactate afterinitial round of treatment and monitor for improvement. 3. Generalized weakness with ambulatory dysfunction and inability to lift himself off of toilet due to #1 & #2 - PT/OT and case management to consult and treat on rounds in the a.m. with patient likely in need of ECF for subacute rehabilitation with help appreciated in advance. 4. History of intracerebral hemorrhage; s/p craniotomy (2019) - Noted. 5. Essential hypertension - Continue home medications as previous plus give as needed IV hydralazine for systolic blood pressure greater than or equal to 160 mmHg. 6. Hyperlipidemia - Resume statin. 7. Paroxysmal atrial fibrillation; on apixaban - Continue apixaban and Coreg asprevious. 8. Coronary artery disease; is post CABG x 3 (2014) - Noted. 9. History of ischemic cardiomyopathy - Stable. 10. History of chronic diastolic CHF: with preserved left ventricular ejection fraction - Stable with no evidence of volume overload at this time. 11. History of sick sinus syndrome; status post permanent pacemaker - Noted. 12. History of carotid artery disease - Stable. 13. Chronic anemia - Stable. 14. Chronic kidney disease stage III - His serum creatinine of 2.12 mg/dL present on admission is markedly improved compared to his recent previous visitswhich were > 3 mg/dL. 15. Chronic gout - Stable with no evidence of acute flare. 16. Osteoarthritis - Give Tylenol prn as outlined above. 17. DVT prophylaxis - Patient is already on apixaban for #7 which will be continued. Total time: Approximately 55 minutes. Charges/Coding Visit Charges Inpatient E&M: 46607 Init Hosp L2 10/18/23 0521 <Electronically signed by Capri Scott DO> Cosigner Signature (if applicable): CC: Dr. Cheli Grace MD; Dr. Capri Scott DO~ Signed [facility] Work Phone: 1(351) 552-814012-25-2023 Discharge summary Author Jadon Montano [facility] October 18, 2023 12:22am Note Date/Time October 17, 2023 10:12pm [facility] Medical Records Department [address] [place] [id number] Emergency Department Summary 10/17/23 MR#: [id number] Acct: [id number] Name: DARCY LUCAS Rep #:[id number] : 1935 88 From: Jadon Montano MD PCP: Dr. Cheli Grace MD Status:REG ER Location: ED HPI History of Present Illness Chief Complaint: Weakness Narrative Narrative: 88-year-old male past medical history of atrial fibrillation, on Eliquis, presents with generalized weakness at 8:50 PM, almost an hour and a half ago. His family states that he was recently released from the hospital at the end of August with pneumonia. He took his antibiotics and has been getting home health care, but they signed off last week. He followed up with his primary care provider who said everything was looking fine. This evening, he went to the bathroom and it was generally weak and could not stand up. EMS reported temperature elevated at 102 ?F although patient denies feeling feverish. He might feel slightly chilled, but they feel this is secondary to his blood thinner. He denies any dysuria or hematuria. No nausea or vomiting, no cough or shortness of breath. [facility] Medical History Acute electrocardiogram changes Atherosclerosis of [place] coronary artery of [place] heart without angina pectoris Brain bleed Carotid artery disease Chest pain Chronic kidney disease (CKD) Congestive heart failure COVID-19 GERD (gastroesophageal reflux disease) Hypoxemia Ischemic cardiomyopathy Kidney disease, chronic, stage III (GFR 30-59 ml/min) Paroxysmal atrial fibrillation Pneumonia of both lower lobes Home Medications allopurinol 100 mg tablet 100 mg PO BID Gout 11/24/18 [History Last Taken 09/19/23 03:30] atorvastatin 40 mg tablet 40 mg PO QHS Cholesterol 11/24/18 [History Last Taken 05/06/22] pyridoxine (vitamin B6) 100 mg tablet 100 mg PO DAILY supplement 11/24/18 [History Last Taken 09/19/23 03:30] albuterol sulfate 90 mcg/actuation aerosol inhaler 2 puff inhalation Q4H PRN shortness of breath or wheezing #8.5 grams 12/25/20 [Rx Last Taken Unknown] ascorbate calcium (vitamin C) 500 mg tablet 500 mg PO DAILY supplement 12/25/20 [History Last Taken 09/19/23 03:30] mecobalamin (vitamin B12) 1,000 mcg disintegrating tablet,sublingual 1,000 mcg sublingual DAILY supplement 12/25/20 [History Last Taken 05/07/22] cholecalciferol (vitamin D3) 50 mcg (2,000 unit) tablet 50 mcg PO DAILY #1 TAB 03/09/22 [Rx Last Taken 09/19/23 03:30] coenzyme Q10 100 mg tablet 100 mg PO DAILY 09/24/22 [History Last Taken Unknown] torsemide 20 mg tablet 20 mg PO .COMPLEX edema 11/19/22 [History Last Taken Unknown] carvedilol 12.5 mg tablet 25 mg (2 x 12.5 mg) PO BID HTN #180 tabs 06/30/23 [Rx Last Taken 09/19/23 03:30] potassium chloride 20 mEq tablet,extended release 20 meq PO DAILY Hypokalemia 06/30/23 [History Last Taken Unknown] sodium bicarbonate 325 mg tablet 650 mg PO DAILY 06/30/23 [History Last Taken Unknown] nitroglycerin 0.4 mg sublingual tablet 0.4 mg sublingual Q5M PRN Cardiac/Chest Pain #30 tabs 09/02/23 [Rx Last Taken Unknown] apixaban 2.5 mg tablet 2.5 mg PO BID Blood thinner #180 tabs 09/30/23 [Rx Last Taken Unknown] Allergy/AdvReac Type Severity Reaction Status Date / Time No Known Allergies Allergy Verified 10/17/23 21:17 Family History Father CAD (coronary artery disease) Surgical History History of brain surgery History of coronary artery bypass graft x 3 History of craniotomy History of permanent cardiac pacemaker placement Social History Smoking Status: Never smoker alcohol intake: never substance use type: does not use caffeine: No ROS ROS ED ROS Narrative Constitutional: No fever, positive chills. However, fever reported by EMS. HEENT: No sore throat. No neck pain. No loss of vision. No rhinorrhea. Cardiovascular: No chest pain. No palpitations. No pedal edema. Respiratory: No cough, no shortness of breath. Abdominal: No abdominal pain. No nausea. No vomiting. Genitourinary: No dysuria. No hematuria. Musculoskeletal: No myalgias. No arthralgias. Neurologic: No headaches. No dizziness. No lightheadedness. Positive generalized weakness, unable to stand from toilet. Skin: No rash. No change in color. Psychiatric: No depression. No anxiety. EXAM Physical Exam Narrative Exam Narrative: Afebrile. Vital signs noted. Nontoxic-appearing. HEENT: Normocephalic. Atraumatic. PERRL, EOMI. Neck soft and supple. No pointtenderness or step off. Cardiovascular: Regular rate and rhythm. No murmurs, rubs, or gallops appreciated. Respiratory: No tachypnea. Lungs clear to auscultation bilaterally. Gastrointestinal: Abdomen soft, nontender, with normoactive bowel sounds. No rebound or guarding. Neurological: Awake. Alert. Nonfocal, nonlateralizing. Skin: No rash. Normal color. No pallor. Musculoskeletal: No pedal edema. Full range of motion extremities. Able to flex and extend bilateral lower extremities at hips and knees. Palpable dorsalis pedis pulses bilaterally. Const Vital Signs: 10/17/23 21:17 10/17/23 23:03 10/17/23 23:54 Temperature 98.7 F 98.3 F Temperature Source Oral Pulse Rate 76 100 Respiratory Rate 18 16 Blood Pressure 129/66 H 140/74 H Blood Pressure Mean 87 96 Pulse Ox 96 96 Oxygen Delivery Method Room Air Room Air 10/17/23 23:57 Temperature 98.0 F Temperature Source Temporal Pulse Rate 100 Respiratory Rate 16 Blood Pressure 140/74 H Blood Pressure Mean 96 Pulse Ox 94 Oxygen Delivery Method Room Air MDM MDM MDM Narrative Medical decision making narrative: Patient is afebrile here currently. He has blood pressure that is 129/66, not tachycardic. However, given the reported fever, sepsis workup was pursued. He may have some element of dehydration as well or electrolyte imbalance. He couldalso have his generalized debility that has resolved. EKG was obtained and interpreted by myself independently as atrial flutter with PVCs but no acute ST changes, no STEMI, at 82 bpm. I reviewed his laboratory work and he has normal white count of 6.5, hemoglobin stable at 10.0, platelet count 153. INR is normal at 1.4, electrolyte panel is significant for chloride of 113 and elevatedbut I think this is nonspecific, his BUN is 52 with a creatinine of 2.12, but hehas chronic kidney disease. Glucose appropriately elevated at 130 with a normalanion gap of 5. High-sensitivity troponin is 37. Chest x-ray in 1 view obtained and interpreted by myself independently shows no evidence of pneumonia or pneumothorax. His pneumonia has cleared when compared to previous x-ray and November. I reviewed the radiology report which confirms my independent interpretation. Of significance is his lactic acid which is slightly elevated at 2.1 which may be more from dehydration as he is not really meeting other SIRScriteria as he is not febrile here, no leukocytosis, and no tachycardia. I willrefrain from antibiotics at this point in time, but of note, he is COVID-positive. This may explain his generalized weakness. His pulse ox is 96% on room air. In discussion with his son and his , the patient is too weak to go home. They are unsure as to how they will get him in the house because he can barely stand and needs assistance. Given his lactic acidosis, he will be bolused another liter, but since he has inability to ambulate independently as he had before, I will discuss patient with the hospitalist, Dr. Soni, for admission. Patient is in stable condition. History & Record Review Discussion w/independent historian: Patient and Family Additional record(s) reviewed:: Prior ED visit and Prior labs Lab Data Attestation: I reviewed the patient's lab results. Labs: Laboratory Results - last 24 hr 10/17/23 10/17/23 10/17/23 21:00 22:50 23:35 WBC 6.5 RBC 2.98 L Hgb 10.0 L Hct 31.7 L MCV 106.4 H MCH 33.6 H MCHC 31.5 L RDW Std Deviation 59.8 H RDW Coeff of Vanesa 15.4 H Plt Count 153 MPV 9.7 Immature Gran % (Auto) 0.300 Neut % (Auto) 73.2 H Lymph % (Auto) 10.3 L [place] % (Auto) 8.9 Eos % (Auto) 6.8 H Baso % (Auto) 0.5 Absolute Neuts (auto) 4.8 Absolute Lymphs (auto) 0.67 L Nucleated RBC % 0 PT 16.7 H INR 1.4 APTT 37.7 H Sodium 140 Potassium 4.5 Chloride 113 H Carbon Dioxide 22.0 Anion Gap 5 BUN 52 H Creatinine 2.12 H Estim Creat Clear Calc 23.75 Est GFR (MDRD) Af Amer 38 L Est GFR (MDRD) Non-Af 32 L BUN/Creatinine Ratio 24.5 H Glucose 130 H Lactic Acid 2.1 H* Calcium 8.9 Total Bilirubin 1.00 AST 21 ALT 46 Alkaline Phosphatase 95 Troponin I High Sens 37 Total Protein 6.8 Albumin 3.6 Globulin 3.2 Albumin/Globulin Ratio 1.1 Urine Color Yellow Urine Clarity Clear Urine pH 6.0 Ur Specific [place] 1.020 Urine Protein 30 H Urine Glucose (UA) Normal Urine Ketones Negative Urine Occult Blood Negative Urine Nitrite Negative Urine Bilirubin Negative Urine Urobilinogen Normal Ur Leukocyte Esterase Negative Radiography Diagnostic Testing: Clinical Impression(s) from Imaging Studies Chest X-Ray 10/17/23 23:10 IMPRESSION: No radiographic evidence of acute cardiopulmonary disease. Cardiomegaly and pacer without florid edema. Electronically Signed: Vincent Cadet MD at 23:46 EST Reading Location ID and State: [facility] / [place] Tel , Service support , Discharge Plan Dx/Rx/DC Orders Clinical Impression: COVID, Chronic kidney disease (CKD), Generalized weakness, Lactic acidosis Disposition Disposition: Acute Care Hospital [facility] What to do if you have Problems For any increased pain, shortness of breath, bleeding, nausea or vomiting, chestpain, or any unexpected problems, contact your Primary Care Provider. Call [facility] ([phone]) or report to the closest Emergency Room. Call 911 if necessary. 10/18/23 0022 <Electronically signed by Jadon Montano MD> Cosigner Signature (if applicable): CC: Dr. Cheli Grace MD ~ Signed [facility] Work Phone: 1(455) 275-155711-29-2023 Discharge summary Author Yaneli [facility] September 22, 2023 12:38pm Note Date/Time September 22, 2023 12:38pm [facility] Medical Records Department [address] [place] [id number] Instructions for Home/Discharge Instructions 09/22/23 1238 MR#: [id number] Acct: [id number] Name: DARCY LUCAS Rep #:[id number] : 1935 88 From: Yaneli Cortés MD PCP: Dr. Cheli Grace MD Status:ADM IN Discharge Instructions Diet Discharge Diet: Low fat / Low cholesterol Activity Discharge Activity: Return to Normal Activity Weight Bearing Status: Weight bearing as tolerated Dressing / Incision Call your doctor if you observe: Fever of 101 or Higher, Shortness of breath, Dizziness, Swelling in the ankles, Chest pain and Increased palpitations (irregular heartbeat) Follow Up Care Test Results: Test results from this visit will be discussed in further detail at your follow- up appointment, if applicable. Discharge Plan Admission Admit Date/Time: 09/19/23 06:57 Primary Reason for Your Visit: community acquired pneumonia Attending Provider: Yaneli Cortés Primary Care Provider: Cheli Grace Consulting Providers: Capri Scott; Dav Renteria Instructions Patient Instructions: ED Pneumonia (Adult) Discharge Orders/Prescriptions Prescriptions: New levofloxacin 500 mg tablet 500 mg PO DAILY Qty: 5 0RF Continued mecobalamin (vitamin B12) 1,000 mcg tablet,disintegrating 1,000 mcg SUBLINGUAL DAILY Rx Instructions: place tablet under tongue and allow to dissolve for at least30 secs before swallowing ascorbate calcium (vitamin C) 500 mg tablet 500 mg PO DAILY albuterol sulfate 90 mcg/actuation HFA aerosol inhaler 2 puff INHALATION Q4H PRN (Reason: shortness of breath or wheezing) Qty: 8.5 6RF Rx Instructions: administer with spacer coenzyme Q10 100 mg tablet 100 mg PO DAILY magnesium oxide 400 mg magnesium tablet 400 mg PO DAILY potassium chloride 20 mEq tablet extended release 20 meq PO DAILY Rx Instructions: MWF carvedilol 12.5 mg tablet 25 mg PO BID Qty: 180 3RF atorvastatin 40 MG tablet 40 mg PO QHS allopurinol 100 MG tablet 100 mg PO BID pyridoxine (vitamin B6) 100 MG tablet 100 mg PO DAILY cholecalciferol (vitamin D3) 50 mcg (2,000 unit) tablet 50 mcg PO DAILY Qty: 1 0RF torsemide 20 mg tablet 20 mg PO .COMPLEX Rx Instructions: 20 mg orally Mon, Weds, Fri; apixaban 2.5 mg tablet 2.5 mg PO BID Qty: 180 4RF Entresto 49-51 mg tablet 1 tab PO BID Qty: 180 4RF sodium bicarbonate 325 mg tablet 650 mg PO DAILY nitroglycerin 0.4 mg tablet, sublingual 0.4 mg sublingual Q5M PRN (Reason: Cardiac/Chest Pain) Qty: 30 2RF Referrals / Follow Up: Cheli Grace MD [Primary Care Provider] - 09/24/23 9:20 am Disposition Disposition (needs filled in before D/C Order can be placed): Home Health Service 09/22/23 1238<Electronically signed by Yaneli Cortés MD>Yaneli Cortés MD CC: Dr. Cheli Grace MD; Dr. Capri Scott DO; Dr. Dav Renteria MD ~ Signed [facility] Work Phone: 1(988) 335-412111-28-2023 Progress [facility] November 28th, 2023 4:26pm Note Date/Time September 21, 2023 12:36pm [facility] Medical Records Department [address] [place] [address] Progress Note 09/21/23 1231 MR#: [id number] Acct: [id number] Name: DARCY LUCAS Rep #:[id number] : 1935 88 From: Yaneli Cortés MD PCP: Dr. Cheli Grace MD Status:ADM IN Location: [facility] [id number] Subjective Subjective Patient seen and examined. He had no active complaints today. He said he felt much better. He is down to 2 L of oxygen. Review of systems otherwise negative. He has remained hemodynamically stable. Objective Data Objective Data Vital Signs: Vital Signs Temp Pulse Resp BP Pulse Ox O2 Del Method O2 Flow Rate 97.8 F 64 18 107/60 94 Nasal Cannula 3 09/21/23 07:48 09/21/23 07:48 09/21/23 10:26 09/21/23 07:48 09/21/23 07:48 09/21/23 10:26 09/21/23 11:16 Oxygen Flow Rate (L/min) 3 Oxygen Delivery Method Nasal Cannula Weight: 152 lb 1.903 oz Body Mass Index (BMI) 21.8 Intake & Output: Intake and Output for Last 24 Hours 09/19/23 09/20/23 09/21/23 23:59 23:59 23:59 Intake Total 955 / 955 425 / 425 50 / 50 Balance 955 / 955 425 / 425 50 / 50 Lab / Micro Data 09/21/23 06:20 09/21/23 06:20 Labs: Laboratory Results - last 24 hr 09/20/23 05:32: Diff Path Review Reviewed 09/21/23 06:20: WBC 7.0, RBC 2.67 L, Hgb 9.0 L, Hct 28.6 L, MCV 107.1 H, MCH 33.7 H, MCHC 31.5 L, RDW Std Deviation 59.7 H, RDW Coeff of Vanesa 15.5 H, Plt Count 144 L, MPV 11.1, Immature Gran % (Auto) 0.400, Neut % (Auto) 92.6 H, Lymph% (Auto) 4.3 L, [place] % (Auto) 2.7, Eos % (Auto) 0.0, Baso % (Auto) 0.0, AbsoluteNeuts (auto) 6.5, Absolute Lymphs (auto) 0.30 L, Nucleated RBC % 0, DifferentialComment SCANNED, Sodium 140, Potassium 4.0, Chloride 111 H, Carbon Dioxide 23.0,Anion Gap 6, BUN 59 H, Creatinine 2.73 H, Estim Creat Clear Calc 18.61, Est GFR (MDRD) Af Amer 29 L, Est GFR (MDRD) Non-Af 24 L, BUN/Creatinine Ratio 21.6 H, Glucose 182 H, Calcium 8.8 Rhythm Strip Rhythm Strip: paced Rate: 80 Ectopy: None Physical Exam Const alert, oriented x3, no apparent distress, average body habitus and well nourished General Appearance: cooperative HEENT normocephalic, head/scalp atraumatic, hearing grossly normal bilaterally, moist oral mucous membranes and oropharynx normal Eyes PERRL, EOMs intact bilaterally and conjunctivae normal Neck no lymphadenopathy, supple and no JVD Lymph Lymphatic: no lymphadenopathy noted and no lymphedema noted Resp Resp Narrative: mildly diminished breath sounds bibasally, no wheezes or crackles. On 2L of oxygen by nasal canula Cardio regular rate, regular rhythm, S1 normal heart sound, S2 normal heart sound and no murmurs GI normal to inspection, nondistended, normoactive bowel sounds, soft to palpation,non-tender and non-distended Extremity normal capillary refill, no clubbing, cyanosis or edema and no calf tenderness Skin General Skin Exam: no breakdown and turgor normal Neuro oriented x3, CN's II-XII intact bilaterally, moves all extremities, no focal motor deficits, no sensory deficits noted and deep tendon reflexes 2+ bilaterally Sensorium / Orientation: awake, alert, oriented to person, oriented to place andoriented to time Speech: speech normal Motor Exam: strength 5/5 throughout Psych thought process normal, cooperative and affect normal Appearance: appropriate Assessment & Plan Assessment/Plan (1) Hypoxemia: (2) Pneumonia of both lower lobes: QUALIFIERS: Pneumonia type: due to unspecified organism QualifiedCode(s): J18.9 - Pneumonia, unspecified organism PLAN: Plan #Acute hypoxic respiratory failure due to pneumonia * on IV ceftriaxone and azithromycin * now down to 2L by nasal canula * breathing treatment with bronchodilators. * titrate oxygen to maintain sats >90% * sputum cultures negative * #Acute exacerbation of asthma * on IV solumedrol. * Breathing treatment with bronchodilators. Titrate oxygen to maintain sats >90% * #CAD s/p CABG * on aspirin and SL nitroglycerin. * #Hypokalemia: resolved #CKD 3B: Cr is stable at baseline. #Paroxysmal atrial fibrillation: on coreg and elliquis. Coreg stopped and patient started on cardizem due to him having asthma #History of hemorrhagic CVA: s/p craniotomy in 2019. Stable. #Chronic gout: on allopurinol #GERD; on PPI #Osteoarthritis: stable DVT prophylaxis: on eliquis. Disposition: Anticipate patient will be discharged tomorrow if she remains stable. Charges/Coding Visit Charges Inpatient E&M: 22333 Subs Hosp L2 09/21/23 1626 <Electronically signed by Yaneli Cortés MD> Yaneli Cortés MD Cosigner Signature (if applicable): CC: ~ Signed [facility] Work Phone: [phone]) 275-176811-27-2023 Progress note Author [facility] September 20, 2023 4:08pm Note Date/Time September 20, 2023 1:26pm [facility] Medical Records Department [address] [place] [id number] Progress Note 09/20/23 1313 MR#: [id number] Acct: [id number] Name: DARCY LUCAS Rep #:[id number] : 1935 88 From: Yaneli Cortés MD PCP: Dr. Cheli Grace MD Status:ADM IN [id number] Subject[facility] Subjective Patient seen and examined. He had no active complaints and had an uneventful night. He denies any cough, chest pain, palpitations, dizziness, nausea, vomiting or any other symptoms. Review of systems is otherwise negative. HE was on 5L of oxygen by nasal canula. Cough is not productive. Objective Data Objective Data Vital Signs: Vital Signs Temp Pulse Resp BP Pulse Ox O2 Del Method O2 Flow Rate 98.1 F 60 18 111/65 95 Nasal Cannula 4 09/20/23 09:36 09/20/23 09:36 09/20/23 09:36 09/20/23 09:36 09/20/23 09:36 09/20/23 09:40 09/20/23 09:40 Oxygen Flow Rate (L/min) 4 Oxygen Delivery Method Nasal Cannula Weight: 152 lb 1.903 oz Body Mass Index (BMI) 21.8 Intake & Output: Intake and Output for Last 24 Hours 09/18/23 09/19/23 09/20/23 23:59 23:59 23:59 Intake Total 955 / 955 425 / 425 Balance 955 / 955 425 / 425 Lab / Micro Data 09/20/23 05:32 09/20/23 05:32 Labs: Laboratory Results - last 24 hr 09/20/23 05:32: WBC 3.9 L, RBC 2.64 L, Hgb 8.9 L, Hct 27.7 L, MCV 104.9 H, MCH 33.7 H, MCHC 32.1, RDW Std Deviation 57.7 H, RDW Coeff of Vanesa 15.2 H, Plt Count 133 L, MPV 10.2, Immature Gran % (Auto) 0.300, Neut % (Auto) 91.2 H, Lymph % (Auto) 7.7 L, [place] % (Auto) 0.8, Eos % (Auto) 0.0, Baso % (Auto) 0.0, Absolute Neuts (auto) 3.6, Absolute Lymphs (auto) 0.30 L, Nucleated RBC % 0, DifferentialComment SCANNED, Diff Path Review February, Sodium 141, Potassium 3.5, Chloride 113 H, Carbon Dioxide 21.0, Anion Gap 7, BUN 47 H, Creatinine 2.33 H, Estim Creat Clear Calc 21.80, Est GFR (MDRD) Af Amer 34 L, Est GFR (MDRD) Non-Af 28 L,BUN/Creatinine Ratio 20.2 H, Glucose 199 H, Calcium 8.6 Rhythm Strip Rhythm Strip: paced Rate: 80 Ectopy: None Physical Exam Const alert, oriented x3 and no apparent distress General Appearance: cooperative HEENT normocephalic, head/scalp atraumatic, moist oral mucous membranes and oropharynxnormal Eyes PERRL and EOMs intact bilaterally Neck no lymphadenopathy, supple and no JVD Lymph Lymphatic: no lymphadenopathy noted and no lymphedema noted Resp Resp Narrative: mildly diminished breath sounds bibasally, no wheezes or crackles. On 5L of oxygen by nasal canula Cardio regular rate, regular rhythm, S1 normal heart sound, S2 normal heart sound and no murmurs GI normal to inspection, nondistended, normoactive bowel sounds, soft to palpation,non-tender and non-distended Extremity normal capillary refill, no clubbing, cyanosis or edema and no calf tenderness Skin General Skin Exam: no breakdown and turgor normal Neuro CN's II-XII intact bilaterally, no focal motor deficits, no sensory deficits noted and deep tendon reflexes 2+ bilaterally Motor Exam: strength 5/5 throughout Psych thought process normal, cooperative and affect normal Appearance: appropriate Assessment & Plan Assessment/Plan (1) Hypoxemia: (2) Pneumonia of both lower lobes: QUALIFIERS: Pneumonia type: due to unspecified organism QualifiedCode(s): J18.9 - Pneumonia, unspecified organism PLAN: Plan #Acute hypoxic respiratory failure due to pneumonia * on IV ceftriaxone and azithromycin * on 6L of oxygen by nasal canula * breathing treatment with bronchodilators. * titrate oxygen to maintain sats >90% * sputum cultures negative * #Acute exacerbation of asthma * on IV solumedrol. Breathing reatment with bronchodilators. Titrate oxygen to maintain sats >90% * #CAD s/p CABG * on aspirin and SL nitroglycerin. * #Hypokalemia: resolved #CKD 3B: Cr is stable at baseline. #Paroxysmal atrial fibrillation: on coreg and elliquis. Coreg stopped and patient started on cardizem #History of hemorrhagic CVA: s/p craniotomy in 2019. Stable. #Chronic gout: on allopurinol #GERD; on PPI #Osteoarthritis: stable DVT prophylaxis: on eliquis. Charges/Coding Visit Charges Inpatient E&M: 25340 Subs Hosp L3 09/20/23 1608 <Electronically signed by Yaneli Cortés MD> Yaneli Cortés MD Cosigner Signature (if applicable): CC: ~ Signed [facility] Work Phone: 1(335) 703-463911-26-2023 Progress note Author Dav Renteria [facility] September 19, 2023 12:07pm Note Date/Time September 19, 2023 12:07pm [facility] Medical Records Department [address] [place] [address] [place] [address] Progress Note - Hospitalist 09/19/23 1039 MR#: [id number] Acct: [id number] Name: DARCY LUCAS Rep #:[id number] : 1935 88 From: Dav Morillo PCP: Dr. Cheli Grace MD Status:ADM IN Location: [place] [address] Hospitalist Note Patient admitted dbas today. Labs, vitals, H&P, plan of management reviewed. Patient was seen and examined. Lungs air entry diminished bilaterally. Bilateral wheezing present. Mild tachypnea. Heart: S1-S2 regular. CABG scar present. Left subclavicular pacemaker. Systolic murmur over right second ICS. Admitted with chest pain and shortness of breath and found to have bilateral pneumonia leukopenia. On IV ceftriaxone and azithromycin. Patient also has anterior/left-sided chest pain mainly on coughing and breathing effort, consistent pleuritic type of chest pain. Patient has history of CABG in 2015 with ischemic cardiomyopathy, sick sinus syndrome, chronic diastolic heart failure preserved EF. 2D echo is ordered. Serial high-sensitivity troponins are negative therefore ACS ruled out. I told the patient and his that if patient is on baseline he can have a stress test but will not recommend during this admission as patient admitted with pneumonia and asthma exacerbation. Patient also had wheezing. Antley on 4 of oxygen. 09/19/23 1207 <Electronically signed by Dav Renteria MD> Cosigner Signature (if applicable): CC: ~ Signed [facility] Work Phone: 1([phone]) 232-121411-26-2023 History and physical note Author Capri Andino [facility] September 19, 2023 7:16am Note Date/Time September 19, 2023 6:39am [facility] Medical Records Department [address] [place] [address] H&P Exam - Hospitalist 09/19/23 0623 MR#: [id number] Acct: [id number] Name: DARCY LUCAS Rep #:[id number] : 1935 88 From: Capri Viramontes DO PCP: Dr. Cheli Grace MD Status:ADM IN Location: [place] [address] HPI - General General Date of Admission: 09/19/23 Date of Service: 09/19/23 Chief Complaint: Chest pain, cough and shortness of breath. HPI Audra LUCAS, is a 88 M with a past medical history of essential hypertension, hyperlipidemia, history of coronary artery disease; status post CABG x 3 (~2014), sick sinus syndrome; status post PPM, history of ischemic cardiomyopathy, history of chronic diastolic CHF; with preserved left ventricular ejection fraction, paroxysmal atrial fibrillation; on apixaban and Coreg, history of hemorrhagic CVA; status post craniotomy and evacuation (2018), history of asthma, chronic kidney disease; stage III-b, chronic anemia, history of COVID-19, chronic lower extremity edema (left greater than right after he hadvein harvesting from the left lower extremity for his bypass), chronic gout, GERD and osteoarthritis who presents to [facility] ER complaining of chest pain, cough and shortness of breath. Mr. Lucas reports hissymptoms began approximately 1 day prior to admission with a gradual onset of dyspnea on exertion that progressed to shortness of breath at rest with an increasingly frequent and nonproductive cough with malaise and fatigue. Then at 4 AM on 09/19/2023 he developed left-sided chest pain at rest that woke him up from sleep with pain that was mild, pressure-like and nonradiating with nothing making the pain better or worse. He also admits to wheezing and decreased appetite for the past 24 hours. He denies any history of tobacco abuse. In theER his x-ray was noted to be positive for evidence of bilateral infiltrates consistent with suspected community-acquired pneumonia complicated by clinical and presence of acute exacerbation of asthma with acute hypoxic respiratory insufficiency and chest pain and he was then admitted to the general medical floor for ongoing care for status expected to be greater than 48 hours. [facility] Medical History Acute electrocardiogram changes Atherosclerosis of [place] coronary artery of [place] heart without angina pectoris Brain bleed Carotid artery disease Chronic kidney disease (CKD) Congestive heart failure COVID-19 GERD (gastroesophageal reflux disease) Paroxysmal atrial fibrillation Home Medications allopurinol 100 mg tablet 100 mg PO BID Gout 11/24/18 [History Last Taken 05/07/22] atorvastatin 40 mg tablet 40 mg PO QHS Cholesterol 11/24/18 [History Last Taken 05/06/22] pyridoxine (vitamin B6) 100 mg tablet 100 mg PO DAILY supplement 11/24/18 [History Last Taken 05/07/22] albuterol sulfate 90 mcg/actuation aerosol inhaler 2 puff inhalation Q4H PRN shortness of breath or wheezing #8.5 grams 12/25/20 [Rx Last Taken Unknown] ascorbate calcium (vitamin C) 500 mg tablet 500 mg PO DAILY supplement 12/25/20 [History Last Taken 05/07/22] mecobalamin (vitamin B12) 1,000 mcg disintegrating tablet,sublingual 1,000 mcg sublingual DAILY supplement 12/25/20 [History Last Taken 05/07/22] cholecalciferol (vitamin D3) 50 mcg (2,000 unit) tablet 50 mcg PO DAILY #1 TAB 03/09/22 [Rx Last Taken 05/07/22] coenzyme Q10 100 mg tablet 100 mg PO DAILY 09/24/22 [History Last Taken Unknown] magnesium oxide 400 mg PO DAILY 09/24/22 [History Last Taken Unknown] torsemide 20 mg tablet 20 mg PO .COMPLEX edema 11/19/22 [History Last Taken Unknown] apixaban 2.5 mg tablet 2.5 mg PO BID Blood thinner #180 tabs 03/10/23 [Rx Last Taken Unknown] sacubitril 49 mg-valsartan 51 mg tablet (Entresto) 1 tab PO BID heart failure #180 tabs 06/10/23 [Rx Last Taken Unknown] carvedilol 12.5 mg tablet 25 mg (2 x 12.5 mg) PO BID HTN #180 tabs 06/30/23 [Rx Last Taken Unknown] potassium chloride 20 mEq tablet,extended release 20 meq PO DAILY Hypokalemia 06/30/23 [History Last Taken Unknown] sodium bicarbonate 325 mg tablet 650 mg PO DAILY 06/30/23 [History Last Taken Unknown] nitroglycerin 0.4 mg sublingual tablet 0.4 mg sublingual Q5M PRN Cardiac/Chest Pain #30 tabs 09/02/23 [Rx Last Taken Unknown] Allergy/AdvReac Type Severity Reaction Status Date / Time No Known Allergies Allergy Verified 06/30/23 15:07 Family History Father CAD (coronary artery disease) Surgical History History of brain surgery History of coronary artery bypass graft x 3 History of craniotomy History of permanent cardiac pacemaker placement Social History Smoking Status: Never smoker alcohol intake: never substance use type: does not use caffeine: No ROS ROS Narrative Review of systems: Constitutional: Patient denies fevers or chills but does admit to generalized fatigue. Eyes: Patient denies visual changes. ENT: Patient denies runny nose or sore throat. Cardiovascular: Patient admits to chest pain with lower extremity edema but denies palpitations. Respiratory: Patient admits to shortness of breath at rest with nonproductive cough with wheezing. Gastrointestinal: Patient denies abdominal pain, nausea, vomiting or diarrhea. Genitourinary: Patient denies dysuria, hematuria or urinary frequency. Musculoskeletal: Patient denies neck pain or back pain. Integumentary: Patient denies abscess or rash. Neurologic: Patient denies headache, paresthesias or focal neurologic deficits. Psychiatric: Patient denies depression or anxiety. Allergic: Patient denies lip swelling, mouth swelling or urticaria. 14 point review of systems otherwise negative except for positives noted above in HPI. Vital Signs Vital Signs Vital Signs: 09/19/23 03:50 09/19/23 04:00 09/19/23 04:01 Temperature 96.3 F L Temperature Source Temporal Pulse Rate 83 Respiratory Rate 21 H Respiratory Effort Short of Breath Respiratory Pattern Blood Pressure 117/92 H Blood Pressure Mean 100 Pulse Ox 89 Oxygen Delivery Method Room Air Nasal Cannula Oxygen Flow Rate (L/min) 4 09/19/23 04:01 09/19/23 04:14 09/19/23 05:28 Temperature Temperature Source Pulse Rate 61 60 Respiratory Rate 30 H Respiratory Effort Respiratory Pattern Tachypnea Blood Pressure 128/75 H Blood Pressure Mean Pulse Ox 96 Oxygen Delivery Method Nasal Cannula Oxygen Flow Rate (L/min) 4 09/19/23 06:18 Temperature 97.6 F L Temperature Source Pulse Rate 60 Respiratory Rate 24 H Respiratory Effort Respiratory Pattern Blood Pressure 136/70 H Blood Pressure Mean 92 Pulse Ox 94 Oxygen Delivery Method Oxygen Flow Rate (L/min) Weight Weight: 168 lb 3.403 oz Body Mass Index (BMI) 24.1 Physical Exam Const alert, oriented x3, average body habitus and well nourished Constitutional Narrative: Mild discomfort noted. General Appearance: cooperative HEENT normocephalic, head/scalp atraumatic, hearing grossly normal bilaterally, moist oral mucous membranes and oropharynx normal Eyes PERRL, EOMs intact bilaterally and conjunctivae normal Neck no lymphadenopathy, supple and no JVD Resp Resp Narrative: Decreased breath sounds throughout with scattered rhonchi and diffuse wheezes. Cardio regular rate and regular rhythm GI normal to inspection, nondistended, normoactive bowel sounds, soft to palpation,non-tender and non-distended Extremity Extremity Narrative: Left greater than right 1-2+ lower extremity edema with no signs of vascular compromise. Skin Skin Narrative: Patient has no evidence of rash at this time. Neuro oriented x3, CN's II-XII intact bilaterally, moves all extremities and no focal motor deficits Sensorium / Orientation: awake, alert, oriented to person, oriented to place andoriented to time Speech: speech normal Motor Exam: strength 5/5 throughout Psych affect normal Results Medical Records Data Attestation: I reviewed the patient's medical records Lab / Micro Data Attestation: I reviewed the patient's lab results. 09/19/23 04:00 09/19/23 04:00 Labs: Laboratory Results - last 24 hr 09/19/23 04:00: WBC 4.2 L, RBC 2.95 L, Hgb 9.9 L, Hct 31.5 L, MCV 106.8 H, MCH 33.6 H, MCHC 31.4 L, RDW Std Deviation 59.6 H, RDW Coeff of Vanesa 15.4 H, Plt Count 134 L, MPV 10.4, Immature Gran % (Auto) 0.200, Neut % (Auto) 61.4, Lymph %(Auto) 22.4, Wharton % (Auto) 8.0, Eos % (Auto) 7.1 H, Baso % (Auto) 0.9, Absolute Neuts (auto) 2.6, Absolute Lymphs (auto) 0.95, Nucleated RBC % 0, Sodium 141, Potassium 3.4 L, Chloride 111 H, Carbon Dioxide 23.0, Anion Gap 7, BUN 40 H, Creatinine 2.07 H, Estim Creat Clear Calc 25.96, Est GFR (MDRD) Af Amer 39 L, Est GFR (MDRD) Non-Af 32 L, BUN/Creatinine Ratio 19.3, Glucose 117 H, Calcium 8.8, Troponin I High Sens 45 Rhythm Strip Rhythm Strip: paced Rate: 80 Ectopy: None Imagaing Radiology Impression Chest X-Ray 09/19/23 04:20 IMPRESSION: Bilateral airspace disease greater on the right, and right pleural effusion. Findings may be consistent with pneumonia and or asymmetric edema. Electronically Signed: Kelley Celeste MD at 4:38 EST , Assessment & Plan Assessment/Plan (1) Pneumonia of both lower lobes: QUALIFIERS: Pneumonia type: due to unspecified organism QualifiedCode(s): J18.9 - Pneumonia, unspecified organism (2) Hypoxemia: (3) Chest pain: QUALIFIERS: Chest pain type: unspecified Qualified Code(s): R07.9- Chest pain, unspecified (4) Atherosclerosis of [place] coronary artery of [place] heart without angina pectoris: (5) Kidney disease, chronic, stage III (GFR 30-59 ml/min): QUALIFIERS: Chronic kidney disease stage 3 subtype: stage 3b (GFR 30-44) Qualified Code(s): N18.32 - Chronic kidney disease, stage 3b PLAN: Plan 1. Bilateral pneumonia likely community-acquired in origin with leukopenia of 4.2 present on admission - Admit to general medical floor. Continue IV Rocephinand IV azithromycin began in the ER and await culture and sensitivity data. Give scheduled Mucinex to mobilize secretions. Give Tylenol as needed pain or fever. 2. Acute exacerbation of asthma complicating #1 - Patient will be started on IVSolu-Medrol with scheduled and as needed nebulizers. Patient has never smoked. 3. Acute hypoxic respiratory insufficiency arising from #1 & #2 - Wean supplemental oxygen as tolerated. 4. Chest pain in patient with history of coronary artery disease; status post CABG x 3 (~2015), sick sinus syndrome; status post PPM, history of ischemic cardiomyopathy, history of chronic diastolic CHF; with preserved left ventricular ejection fraction compounding #1 - #3 - Serialize troponin. Check echocardiogram to evaluate left ventricular ejection fraction. Check Lexiscan nuclear stress test to evaluate for ischemia. Give aspirin plus as needed sublingual nitroglycerin. 5. Hypokalemia of 3.4 mmol/L present on admission - Give supplemental potassiumand recheck BMP in the a.m. to ensure improvement. 6. 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 Check daily BMP and CBC to ensure continued stability. 7. Paroxysmal atrial fibrillation; on apixaban and Coreg - Continue apixaban but replace Coreg with diltiazem in light of relative contraindication from asthma exacerbation outlined in #2. 8. History of hemorrhagic CVA; status post craniotomy and evacuation (2019) - Stable. 9. History of COVID-19 - Noted. 10. Chronic lower extremity edema (left greater than right after he had vein harvesting from the left lower extremity for his bypass) - Noted. 11. Chronic gout - Resume allopurinol as previous. 12. GERD - Continue PPI. 13. Osteoarthritis - Stable. 14. DVT prophylaxis - Patient is already on apixaban for #7 which will be continued. Total time: Approximately 55 minutes. Charges/Coding Visit Charges Inpatient E&M: 14438 Init Hosp L2 09/19/23 0716 <Electronically signed by Capri Scott DO> Cosigner Signature (if applicable): CC: Dr. Cheli Grace MD; Dr. Capri Scott DO~ Signed [facility] Work Phone: [phone](419) 264-257311-26-2023 Discharge summary Author Deon Joy [facility] September 19, 2023 6:38am Note Date/Time September 19, 2023 4:05am [facility] Medical Records Department [address] [place] [id number] Emergency Department Summary 09/19/23 MR#: [id number] Acct: [id number] Name: DARCY LUCAS Rep #:[id number] : 1935 88 From: Deon Joy MD PCP: Dr. Cheli Grace MD Status:ADM IN Location: [place] [address] HPI History of Present Illness Chief Complaint: Chest Pain Informant: patient and spouse/S.O. Narrative Narrative: Patient presents around 4 AM for left-sided nonpleuritic chest pressure that started about 2 hours ago, waking him up. He states his discomfort has been mild. He initially states that he has been short of breath, but this has been a longstanding symptom associated with a nasal problem that feels no different or worse now that he has chest discomfort. He has chronic leg edema since having his CABG 8 years ago, and states that is no different than usual, he had vein harvesting from the left lower extremity for his bypass and so his left leg is always more swollen than the right. [facility] Medical History Acute electrocardiogram changes Atherosclerosis of [place] coronary artery of [place] heart without angina pectoris Brain bleed Carotid artery disease Chronic kidney disease (CKD) Congestive heart failure COVID-19 GERD (gastroesophageal reflux disease) Paroxysmal atrial fibrillation Home Medications allopurinol 100 mg tablet 100 mg PO BID Gout 11/24/18 [History Last Taken 05/07/22] atorvastatin 40 mg tablet 40 mg PO QHS Cholesterol 11/24/18 [History Last Taken 05/06/22] pyridoxine (vitamin B6) 100 mg tablet 100 mg PO DAILY supplement 11/24/18 [History Last Taken 05/07/22] albuterol sulfate 90 mcg/actuation aerosol inhaler 2 puff inhalation Q4H PRN shortness of breath or wheezing #8.5 grams 12/25/20 [Rx Last Taken Unknown] ascorbate calcium (vitamin C) 500 mg tablet 500 mg PO DAILY supplement 12/25/20 [History Last Taken 05/07/22] mecobalamin (vitamin B12) 1,000 mcg disintegrating tablet,sublingual 1,000 mcg sublingual DAILY supplement 12/25/20 [History Last Taken 05/07/22] cholecalciferol (vitamin D3) 50 mcg (2,000 unit) tablet 50 mcg PO DAILY #1 TAB 03/09/22 [Rx Last Taken 05/07/22] coenzyme Q10 100 mg tablet 100 mg PO DAILY 09/24/22 [History Last Taken Unknown] magnesium oxide 400 mg PO DAILY 09/24/22 [History Last Taken Unknown] torsemide 20 mg tablet 20 mg PO .COMPLEX edema 11/19/22 [History Last Taken Unknown] apixaban 2.5 mg tablet 2.5 mg PO BID Blood thinner #180 tabs 03/10/23 [Rx Last Taken Unknown] sacubitril 49 mg-valsartan 51 mg tablet (Entresto) 1 tab PO BID heart failure #180 tabs 06/10/23 [Rx Last Taken Unknown] carvedilol 12.5 mg tablet 25 mg (2 x 12.5 mg) PO BID HTN #180 tabs 06/30/23 [Rx Last Taken Unknown] potassium chloride 20 mEq tablet,extended release 20 meq PO DAILY Hypokalemia 06/30/23 [History Last Taken Unknown] sodium bicarbonate 325 mg tablet 650 mg PO DAILY 06/30/23 [History Last Taken Unknown] nitroglycerin 0.4 mg sublingual tablet 0.4 mg sublingual Q5M PRN Cardiac/Chest Pain #30 tabs 09/02/23 [Rx Last Taken Unknown] Allergy/AdvReac Type Severity Reaction Status Date / Time No Known Allergies Allergy Verified 06/30/23 15:07 Family History Father CAD (coronary artery disease) Surgical History History of brain surgery History of coronary artery bypass graft x 3 History of craniotomy History of permanent cardiac pacemaker placement Social History Smoking Status: Never smoker alcohol intake: never substance use type: does not use caffeine: No ROS ROS ED Constitutional Constitutional ED: Denies chills or fever(s) Eyes Eyes: Denies change in vision or diplopia ENT ENT ED: Denies rhinorrhea or sore throat Cardiovascular Cardiovascular: Reports chest pain and leg edema; Denies palpitations Respiratory/Chest Respiratory/Chest: Reports as per HPI, cough and dyspnea Gastrointestinal Gastrointestinal: Denies abdominal pain, diarrhea, nausea or vomiting Genitourinary Genitourinary ED: Denies dysuria or hematuria Musculoskeletal Musculoskeletal: Denies back pain or neck pain Integumentary Denies abscess or rash Neurologic Neurologic: Denies headache(s), paresthesias or weakness Psychiatric Psychiatric: Denies anxiety or suicidal thoughts EXAM Physical Exam Const Vital Signs: 09/19/23 03:50 09/19/23 04:00 09/19/23 04:01 Temperature 96.3 F L Temperature Source Temporal Pulse Rate 83 Respiratory Rate 21 H Respiratory Effort Short of Breath Respiratory Pattern Blood Pressure 117/92 H Blood Pressure Mean 100 Pulse Ox 89 Oxygen Delivery Method Room Air Nasal Cannula Oxygen Flow Rate (L/min) 4 09/19/23 04:01 09/19/23 04:14 09/19/23 05:28 Temperature Temperature Source Pulse Rate 61 60 Respiratory Rate 30 H Respiratory Effort Respiratory Pattern Tachypnea Blood Pressure 128/75 H Blood Pressure Mean Pulse Ox 96 Oxygen Delivery Method Nasal Cannula Oxygen Flow Rate (L/min) 4 09/19/23 06:18 Temperature 97.6 F L Temperature Source Pulse Rate 60 Respiratory Rate 24 H Respiratory Effort Respiratory Pattern Blood Pressure 136/70 H Blood Pressure Mean 92 Pulse Ox 94 Oxygen Delivery Method Oxygen Flow Rate (L/min) Positive well nourished and well developed General Appearance ED: well developed and NAD HEENT Reports moist mucous membranes normocephalic and atraumatic Eyes PERRL and EOMs intact bilaterally Neck full ROM and supple Resp normal respiratory effort and clear to auscultation bilaterally Cardio regular rate and regular rhythm GI non-tender and non-distended Auscultation: normoactive bowel sounds Palpation: soft Back/Spine no CVA tenderness General Back: other FROM Extremity normal to inspection General Extremety ED: Yes edema; Negative for pulses abnormal or tenderness General Extremity: edema right lower extremity mild and left lower extremity moderate; Negative for pulses abnormal Neuro oriented x3, CN's II-XII intact bilaterally and no sensory deficits noted Sensorium / Orientation: awake and alert Motor Exam: strength 5/5 throughout Psych mental status grossly normal Skin no rashes or lesions noted and no wounds Heart Score History: Moderately Suspicious ECG: Nonspecific Repolarization Age: >/= 65 years Risk Factors: >/= 3 Risk Factors or History of CAD Score: 6 MDM MDM MDM Narrative Medical decision making narrative: Patient has a history according to chart review of ischemic cardiomyopathy, lastyear his last echo showed an ejection fraction of 20%. He has a pacemaker EKG shows that is pacing appropriately, he has a history of underlying atrial fibrillation for which she is on apixaban. Therefore aspirin was held and he was given nitroglycerin paste while we performed more of a workup here includingchest x-ray and labs and troponin. He said the pain was almost gone when he gotthe nitroglycerin paste, on reevaluation it is completely gone, his blood pressures in the 120s, I removed the pacing and remained stable without developing more chest discomfort. He is a white blood count that is relatively low, but his chest x-ray 1 view on my interpretation shows some airspace diseasebilaterally that may or may not be infectious. Radiology report reviewed they are in agreement. He states he has had a new cough. He was 88% on room air when he first arrived, nurses put him on 4 L of oxygen, which made him 96%. He states he is feeling a little short of breath/wheezing when I reevaluated him sowe gave him an albuterol treatment. Subsequently we removed his oxygen, and he quickly desatted down to 88% on room air at rest given this, we will treat him for pneumonia and admit him to the hospital. We confirmed he does not have oxygen at home for any reason. Second troponin measurement actually came back lower than the initial measurement, therefore hospitalist then I determined he does not need to be admitted to monitored bed since he is unlikely having acute unstable angina. Lab Data Attestation: I reviewed the patient's lab results. Labs: Laboratory Results - last 24 hr 09/19/23 09/19/23 04:00 05:55 WBC 4.2 L RBC 2.95 L Hgb 9.9 L Hct 31.5 L MCV 106.8 H MCH 33.6 H MCHC 31.4 L RDW Std Deviation 59.6 H RDW Coeff of Vanesa 15.4 H Plt Count 134 L MPV 10.4 Immature Gran % (Auto) 0.200 Neut % (Auto) 61.4 Lymph % (Auto) 22.4 Wharton % (Auto) 8.0 Eos % (Auto) 7.1 H Baso % (Auto) 0.9 Absolute Neuts (auto) 2.6 Absolute Lymphs (auto) 0.95 Nucleated RBC % 0 Sodium 141 Potassium 3.4 L Chloride 111 H Carbon Dioxide 23.0 Anion Gap 7 BUN 40 H Creatinine 2.07 H Estim Creat Clear Calc 25.96 Est GFR (MDRD) Af Amer 39 L Est GFR (MDRD) Non-Af 32 L BUN/Creatinine Ratio 19.3 Glucose 117 H Calcium 8.8 Troponin I High Sens 45 39 Radiography Diagnostic Testing: Clinical Impression(s) from Imaging Studies Chest X-Ray 09/19/23 04:20 IMPRESSION: Bilateral airspace disease greater on the right, and right pleural effusion. Findings may be consistent with pneumonia and or asymmetric edema. Electronically Signed: Kelley Celeste MD at 4:38 EST , Rhythm Strip Rhythm Strip: paced Rate: 80 Ectopy: None EKG Initial EKG: Attestation: I personally reviewed and interpreted this EKG as follows: Interpretation: No Acute Injury Pattern and Paced Management Discussion w/another healthcare provider: Hospitalist Discharge Plan Dx/Rx/DC Orders Clinical Impression: Pneumonia of both lower lobes, Ischemic cardiomyopathy, Hypoxemia, Chest pain Disposition Disposition: Acute Care Hospital [facility] What to do if you have Problems For any increased pain, shortness of breath, bleeding, nausea or vomiting, chestpain, or any unexpected problems, contact your Primary Care Provider. Call [facility] ([phone]) or report to the closest Emergency Room. Call 911 if necessary. 09/19/23 0638 <Electronically signed by Deon Joy MD> Cosigner Signature (if applicable): CC: Dr. Cheli Grace MD ~ Signed [facility] Work Phone: 1(857) 185-515611-24-2023 NoteHNO ID: [id number] Author: Jacquelyn Conley RN Service: ? Author Type: Registered Nurse Type: Progress Notes Filed: 09/27/2023 2:20 PM Note Text: CDM Telephonic Outreach Provider Action/FYI CDM: CHF, CKD Spk with spouse Herson she noted Joseph has vocal cord issue and nasal passage issues, has 09/22/[address] Alicea ENT. Pt recently established with Dr. Grace [facility].Denies needs. Instructed to call new PCP for any symptom changes, concerns or needs, Pt and are aware of discontinuation of Public Health Dietitian services, and noted appreciation for previous and [...] pounds in a week? No Based on take up operator, the following disposition is advised: No symptoms or symptoms present, not severe. Routed to: No Action Needed SEVEN Education Provided this Outreach: No Jacquelyn Conley RN September 17, 2023 3:44 [facility]11-24-2023 NotePatient Outreach ([facility]) DARCY LUCAS ([id number]) 1935 M T Date Time Provider Department 09/17/23 JACQUELYN CONLEY [facility] During your visit today, we recorded the following information about you: Jacquelyn Conley RN 09/27/2023 2:20 PM Signed CDM Telephonic Outreach Provider Action/ CDM: CHF, CKD Spk with spouse Herson she noted Joseph has vocal cord issue and nasal passage issues, has 09/22/[address] Alicea ENT. Pt recently established with Dr. Lesly Calderon [facility].Denies needs. Instructed to call new PCP for any symptom changes, concerns or needs, Pt and are aware of discontinuation of Public Health Dietitian services, and noted appreciation for previous and [...] pounds in a week? No Based on take up operator, the following disposition is advised: No symptoms or symptoms present, not severe. Routed to: No Action Needed SEVEN Education Provided this Outreach: No Jacquelyn Conley RN September 17, 2023 3:44 PM Allergies As of Date: 09/17/2023 Noted Allergy Reaction INDOCIN (INDOMETHACIN SODIUM) 03/22/2012 8 - GI Upset NORVASC (AMLODIPINE BESYLATE) 12/16/2018 14 - Other: See Comments Comments: Dizziness REFUHQF-EDR-KZR REDUCTASE INHIBIT*07/10/2014 14 - Other: See Comments [...] as needed for cough. - Lacto 21-Bifido 9-B-G3-B6-B12 (UP4 PROBIOTICS MEN'S) 50 billion cell -90 mg-30 mcg cap Take 1 tablet by mouth every other day. - atorvastatin (LIPITOR) 40 mg tablet Take 1 tablet by mouth once daily. - Coenzyme E61-Evkxuoh E 100-100 mg cap Take by mouth. [...] 1 tablet by mouth once daily. - Orxac-9-PMA-EPA-Fish Oil 1,000 mg (120 mg-180 mg) cap [...] 08/11/2016 PVC's (premature ventric (more content not included)...[facility]10-16-2023 NoteHNO ID: [id number] Author: Jacquelyn Conley RN Service: ? Author Type: Registered Nurse Type: Progress Notes Filed: 08/09/2023 4:52 PM Note Text: CDM Telephonic Outreach Provider Action/FYI CDM: CHF, CKD Left a message to verify symptom status, instructed to call PCP with any changes in condition?or needs. Contacted for: Routine Telephonic Outreach Contact made with patient: No, left message. Jacquelyn Conley RN August 09, 2023 4:50 [facility] History of Present illness Narrative* Jacquelyn Conley RN - 08/09/2023 4:50 PM EDT CDM Telephonic Outreach Provider Action/FYI CDM: CHF, CKD Left a message to verify symptom status, instructed to call PCP with any changes in condition?or needs. Contacted for: Routine Telephonic Outreach Contact made with patient: No, left message. Jacquelyn Conley RN August 09, 2023 4:50 PM * Jacquelyn Conley RN - 08/06/2023 5:59 PM EDT CDM Telephonic Outreach Provider Action/FYI CDM: CHF, CKD Left a message to verify symptom status, instructed to call PCP with any changes in condition?or needs. Contacted for: Routine Telephonic Outreach Contact made with patient: No, left message. Jacquelyn Conley RN August 06, 2023 5:59 PM documented in this encounterNorwalk [facility] Hospital10-16-2023 Miscellaneous Notes* Telephone Encounter - Liliana De La Rosa Ma - 08/09/2023 2:58 PM EDT Patient called the office to cancel his Aug [address] Art because he would prefer a kidney doctor closer to where he lives in [place], [place] documented in this encounterNorwalk Memorial Hospital10-13-2023 NoteHNO ID: [id number] Author: Jacquelyn Conley RN Service: ? Author Type: Registered Nurse Type: Progress Notes Filed: 08/09/2023 4:52 PM Note Text: CDM Telephonic Outreach Provider Action/FYI CDM: CHF, CKD Left a message to verify symptom status, instructed to call PCP with any changes in condition?or needs. Contacted for: Routine Telephonic Outreach Contact made with patient: No, left message. Jacquelyn Conley RN August 06, 2023 5:59 [facility]CC[facility]10-[facility] NotePatient Outreach ([facility]) DARCY LUCAS ([id number]) 1935 M [facility] Date Time Provider Department 08/06/23 JACQUELYN CONLEY [facility] During your visit today, we recorded the [...] 14 - Other: See Comments Comments: Dizziness LFVHYWB-LME-YOJ REDUCTASE INHIBIT*07/10/2014 14 - Other: See Comments [...] capsules by mouth once daily. - Coenzyme S09-Pjzxoyh E 100-100 mg cap Take by mouth. - cyanocobalamin (VITAMIN B-12) 1,000 mcg tab Take 1 tablet by mouth once daily. - Lacto 21-Bifido 0-Z-T2-B6-B12 (UP4 PROBIOTICS MEN'S) 50 billion cell -90 [...] minutes as needed for chest pain. - Vzpjz-2-ISR-EPA-Fish Oil 1,000 mg (120 mg-180 mg) cap [...] left shoulder [M7*06/12/2014 Coronary artery disease involving [place]-apache verde*07/29/2015 S/P CABG (coronary artery bypass graft) [Z95.1] 2015 Hypokalemia [E87.6] 02/05/2016 01/29/2023 Osteoarthritis of spine with radiculopathy, lum*02/21/2016 History of permanent cardiac pacemaker placemen*09/03/2016 Paroxysmal atrial fibrillation (HCC) [I48.0] 09/03/2016 Chronic anticoagulation [Z79.01] 09/03/2016 12/16/2018 Carotid stenosis, asymptomatic [I65.29] 02/11/2017 Hyperglycemia [R73.9] (more content not included)...[facility] 07-15-2023 NotePatient Outreach ([facility]) DARCY LUCAS ([id number]) 1935 [facility] Date Time Provider Department 07/15/23 [facility] During your visit today, we recorded the following information about you: Jacquelyn Conley RN 07/16/2023 5:24 PM Signed CDM Telephonic [...] 14 - Other: See Comments Comments: Dizziness MOQUUQY-YEJ-TJU REDUCTASE INHIBIT*07/10/2014 14 - Other: See Comments [...] as needed for cough. - Lacto 21-Bifido 6-F-T8-B6-B12 (UP4 PROBIOTICS MEN'S) 50 billion cell -90 mg-30 mcg cap Take 1 tablet by mouth every other day. - atorvastatin (LIPITOR) 40 mg tablet Take 1 tablet by mouth once daily. - Coenzyme O65-Yfgcznr E 100-100 mg cap Take by mouth. [...] 1 tablet by mouth once daily. - Hwdoe-4-BBQ-EPA-Fish Oil 1,000 mg (120 mg-180 mg) cap [...] left shoulder [M7*06/12/2014 Coronary artery disease involving [place]-apache verde*07/29/2015 S/P CABG (coronary artery bypass graft) [...] left mandie*03/19/2020 Heart failu (more content not included)...[facility]09-21-2023 NoteHNO ID: [id number] Author: Jacquelyn Conley RN Service: ? Author Type: Registered Nurse Type: Progress Notes Filed: 07/16/2023 5:24 PM Note Text: CDM Telephonic Outreach Provider Action/FYI CDM: CHF, CKD Left a message instructed to call PCP with any changes in condition or needs. Contacted for: Routine Telephonic Outreach Contact made with patient: No, left message. Jacquelyn Conley RN July 15, 2023 11:10 [facility]09-21-2023 History of Present illness Narrative* aJcquelyn Conley RN - 07/15/2023 11:07 AM EDT CDM Telephonic Outreach Provider Action/FYI CDM: CHF, CKD Left a message instructed to call PCP with any changes in condition or needs. Contacted for: Routine Telephonic Outreach Contact made with patient: No, left message. Jacquelyn Conley RN July 15, 2023 11:10 AM documented in this encounterNorwalk Memorial Hospital08-28-2023 NoteHNO ID: [id number] Author: Jacquelyn Conley RN Service: ? Author Type: Registered Nurse Type: Progress Notes Filed: 06/21/2023 3:40 PM Note Text: CDM Telephonic Outreach Provider Action/FYI CDM: CHF, CKD Left a message instructed to call PCP with any changes in condition or needs. Contacted for: Routine Telephonic Outreach Contact made with patient: No, left message. Jacquelyn Conley RN June 21, 2023 3:38 [facility]08-28-2023 History of Present illness Narrative* Jacquelyn Conley RN - 06/21/2023 11:03 AM EDT CDM Telephonic Outreach Provider Action/FYI CDM: CHF, CKD Left a message instructed to call PCP with any changes in condition or needs. Contacted for: Routine Telephonic Outreach Contact made with patient: No, left message. Jacquelyn Conley RN June 21, 2023 3:38 PM * Jacquelyn Conley RN - 06/18/2023 3:13 PM EDT CDM Telephonic Outreach Provider Action/FYI CDM: CHF, CKD Left a message instructed to call PCP with any changes in condition or needs. Contacted for: Routine Telephonic Outreach Contact made with patient: No, left message. Jacquelyn Conley RN June 18, 2023 3:13 PM documented in this encounterNorwalk [facility] Hospital08-25-2023 NoteHNO ID: [id number] Author: Jacquelyn Conley RN Service: ? Author Type: Registered Nurse Type: Progress Notes Filed: 06/21/2023 3:40 PM Note Text: CDM Telephonic Outreach Provider Action/FYI CDM: CHF, CKD Left a message instructed to call PCP with any changes in condition or needs. Contacted for: Routine Telephonic Outreach Contact made with patient: No, left message. Jacquelyn Conley RN June 18, 2023 3:13 [facility]08-24-2023 NotePatient Outreach ([facility]) DARCY LUCAS ([id number]) 1935 M [facility] Date Time Provider Department 06/17/23 JACQUELYN CONLEY [facility] During your visit today, we recorded the [...] 14 - Other: See Comments Comments: Dizziness JJTBZJN-LDB-VWZ REDUCTASE INHIBIT*07/10/2014 14 - Other: See Comments [...] as needed for cough. - Lacto 21-Bifido 9-B-G5-B6-B12 (UP4 PROBIOTICS MEN'S) 50 billion cell -90 mg-30 mcg cap Take 1 tablet by mouth every other day. - atorvastatin (LIPITOR) 40 mg tablet Take 1 tablet by mouth once daily. - Coenzyme B18-Zkjpoue E 100-100 mg cap Take by mouth. [...] 1 tablet by mouth once daily. - Vfcxc-1-JQP-EPA-Fish Oil 1,000 mg (120 mg-180 mg) cap [...] left shoulder [M7*06/12/2014 Coronary artery disease involving [place]-apache verde*07/29/2015 S/P CABG (coronary artery bypass graft) [Z95.1] 2015 Hypokalemia [E87.6] 02/05/2016 01/29/2023 Osteoarthritis of spine with radiculopathy, lum*02/21/2016 History of permanent cardiac pacemaker placemen*09/03/2016 Paroxysmal atrial fibrillation (HCC) [I48.0] 09/03/2016 Chronic anticoagulation [Z79.01] 09/03/2016 12/16/2018 Carotid stenosis, asymptomatic [I65.29] 02/11/2017 Hyperglycemia [R73.9] 02/11/2017 Anemia of chronic disease [D63.8] 02/11/2017 A (more content not included)...[facility]07-23-2023 NoteHNO ID: [id number] Author: Jacquelyn Conley RN Service: ? Author [...] Jacquelyn Conley RN May 16, 2023 3:43 [facility]07-23-2023 History of Present illness Narrative* Jacquelyn Conley RN - 05/16/2023 3:42 PM EDT CD Telephonic Outreach Provider Action/FYI CDM CHF, CKD Called Pt to verify symptoms and needs, line was busy, unable to leave a message. Contacted for: Routine Telephonic Outreach Contact made with patient: No, unable to leave message. Third attempt - patient is unable to be reached. Jacquelyn Conley RN May 16, 2023 3:43 PM * Jacquelyn Conley RN - 05/10/2023 4:28 PM EDT CD Telephonic Outreach Provider Action/FYI CDM CHF, CKD Called Pt to verify symptoms and needs, line was busy, unable to leave a message. Contacted for: Routine Telephonic Outreach Contact made with patient: No, unable to leave message. Will reattempt call Jacquelyn Conley RN May 10, 2023 4:28 PM * Jacquelyn Conley RN - 05/07/2023 1:30 PM EDT CDM Telephonic Outreach Provider Action/ CDM CHF, CKD Called Pt to verify symptoms and needs, line was busy, unable to leave a message. Contacted for: Routine Telephonic Outreach Contact made with patient: No, unable to leave message. Will reattempt call Jacquelyn Conley RN May 07, 2023 1:31 PM documented in this encounterNorwalk Memorial Hospital07-17-2023 NoteHNO ID: [id number] Author: Jacquelyn Conley RN Service: ? Author [...] Jacquelyn Conley RN May 10, 2023 4:28 [facility]07-14-2023 NoteHNO ID: [id number] Author: Jacquelyn Conley RN Service: ? Author [...] Jacquelyn Conley RN May 07, 2023 1:31 [facility]07-14-2023 NotePatient Outreach ([facility]) DARCY LUCAS ([id number]) 1935 M T Date Time Provider Department 05/07/23 JACQUELYN CONLEY [facility] During your visit today, we recorded the [...] 3:45 PM Signed CDM Telephonic Outreach Provider Action/FYI CDM CHF, CKD Called Pt to verify symptoms and needs, line was busy, unable to leave a message. Contacted for: Routine Telephonic Outreach Contact made with patient: No, unable to leave message. Will reattempt call Jacquelyn Conley RN May 10, 2023 4:28 PM Jacquelyn Conley RN 05/16/2023 3:45 PM Signed CD Telephonic Outreach Provider Action/FYI CDM CHF, CKD [...] 14 - Other: See Comments Comments: Dizziness JSVBVVH-ADB-HBR REDUCTASE INHIBIT*07/10/2014 14 - Other: See Comments [...] as needed for cough. - Lacto 21-Bifido 5-S-X2-B6-B12 (UP4 PROBIOTICS MEN'S) 50 billion cell -90 mg-30 mcg cap Take 1 tablet by mouth every other day. - atorvastatin (LIPITOR) 40 mg tablet Take 1 tablet by mouth once daily. - Coenzyme H44-Uxcqzky E 100-100 mg cap Take by mouth. [...] 1 tablet by mouth once daily. - Sohmr-9-BBL-EPA-Fish Oil 1,000 mg (120 mg-180 mg) cap [...] left shoulder [M7*06/12/2014 Coronary artery disease involving [place]-apache verde*07/29/2015 S/P CABG (coronary artery bypass graft) [Z95.1] 2015 Hypokalemia [E87.6] 04 (more content not included)...[facility] 05-06-2023 NoteHNO ID: [id number] Author: Jacquelyn Conley RN Service: ? Author [...] Jacquelyn Conley RN May 06, 2023 1:14 [facility]07-13-2023 History of Present illness Narrative* Jacquelyn Conley RN - 05/06/2023 1:14 PM EDT CDM Telephonic Outreach Provider Action/FYI CDM: CHF, CKD Called home number, unable to leave a message to verify symptom status and needs. Contacted for: Routine Telephonic Outreach Contact made with patient: No, unable to leave message. Will reattempt call Jacquelyn Conley RN May 06, 2023 1:14 PM * Jacquelyn Conley RN - 05/05/2023 3:42 PM EDT CDM Telephonic Outreach Provider Action/FYI CDM: CHF, CKD Called home number, unable to leave a message to verify symptom status and needs. Contacted for: Routine Telephonic Outreach Contact made with patient: No, unable to leave message. Will reattempt call Jacquelyn Conley RN May 05, 2023 3:42 PM documented in this encounterNorwalk [facility] Hospital07-12-2023 NoteHNO ID: [id number] Author: Jacquelyn Conley RN Service: ? Author Type: Registered Nurse Type: Progress Notes Filed: 05/06/2023 1:15 PM Note Text: [facility] Telephonic Outreach Provider Action/FYI CDM: CHF, CKD Called home number, unable to leave a message to verify symptom status and needs. Contacted for: Routine Telephonic Outreach Contact made with patient: No, unable to leave message. Will reattempt call Jacquelyn Conley RN May 05, 2023 3:42 [facility]07-12-2023 NotePatient Outreach ([facility]) DARCY LUCAS ([id number]) 1935 M [facility] Date Time Provider Department 05/05/23 JACQUELYN CONLEY During your visit today, we [...] 14 - Other: See Comments Comments: Dizziness EWRXKJO-SDO-RMC REDUCTASE INHIBIT*07/10/2014 14 - Other: See Comments [...] as needed for cough. - Lacto 21-Bifido 8-E-N1-B6-B12 (UP4 PROBIOTICS MEN'S) 50 billion cell -90 mg-30 mcg cap Take 1 tablet by mouth every other day. - atorvastatin (LIPITOR) 40 mg tablet Take 1 tablet by mouth once daily. - Coenzyme L51-Jtukxhb E 100-100 mg cap Take by mouth. [...] 1 tablet by mouth once daily. - Arjnr-4-IUQ-EPA-Fish Oil 1,000 mg (120 mg-180 mg) cap [...] left shoulder [M7*06/12/2014 Coronary artery disease involving [place]-apache verde*07/29/2015 S/P CABG (coronary artery bypass graft) [Z95.1] 2015 Hypokalemia [E87.6] 02/05/2016 01/29/2023 Osteoarthritis of spine with radiculopathy, lum*02/21/2016 History of permanent cardiac pacemaker placemen*09/03/2016 Paroxysmal atrial fibrillation (HCC) [I48.0] 09/03/2016 Chronic anticoagulation [Z79.01] 09/03/2016 12/16/2018 Carotid stenosis, asymptomatic [I65.29] 02/11/2017 Hyperglycemia [R73.9] 02/11/2017 Anemia of chronic disease [D63.8] 02/11/2017 Atria (more content not included)...[facility]07-03-2023 NoteHNO ID: [id number] Author: Cat Art MD Service: ? Author Type: Physician Type: Progress Notes Filed: 04/26/2023 12:37 PM Note Text: [facility] SERVICE DATE: 04/26/2023 SERVICE TIME: 11:24 AM Some elements of this note have been copied from my clinic note from 02/09/2023 and have been updated where appropriate. This note has been edited for changes in the patient's condition. All reflect current evaluation, analysis and medical decision-making from today, 04/26/2023. CHIEF COMPLAINT: CKD follow-up HPI: Mr. Lucas is a 87 year old male with [...] of Left Shoulder Coronary Artery Disease Involving [place] Coronary Artery of [place] Heart Without Angina Pectoris S/P Cabg (Coronary [...] 2 capsules by mouth every Wednesday,Wednesday,Wednesday. Takes Wed/Wed/Fri with Torsemide allopurinol (ZYLOPRIM) 100 mg tablet [...] mg by mouth every Wednesday,Wednesday,Wednesday.) Lacto 21-Bifido 3-L-T7-B6-B12 (UP4 PROBIOTICS MEN'S) 50 billion cell -90 mg-30 mcg cap Take 1 tablet by mouth every other day. atorvastatin (LIPITOR) 40 mg tablet Take 1 tablet by mouth once daily. Coenzyme H13-Twgecpo E 100-100 mg cap Take by mouth. [...] Take 1 tablet by mouth once daily. Wbzjk-1-SPQ-EPA-Fish Oil 1,000 mg (120 mg-180 mg) cap [...] Allergen Reactions Indocin [Indometha (more content not included)...[facility] 04-01-2023 NoteHNO ID: [id number] Author: Jacquelyn Conley RN Service: ? Author [...] pounds in a week? No Based on take up operator, the following disposition is advised: No symptoms or symptoms present, not severe. Routed to: No Action Needed SEVEN Education Provided this Outreach: No Jacquelyn Conley RN April 01, 2023 6:03 [facility]06-08-2023 History of Present illness Narrative* Jacquelyn Conley RN - 04/01/2023 5:59 PM EDT CDM Telephonic Outreach Provider Action/FYI CDM: CHF, [...] pounds in a week? No Based on take up operator, the following disposition is advised: No symptoms or symptoms present, not severe. Routed to: No Action Needed SEVEN Education Provided this Outreach: No Jacquelyn Conley RN April 01, 2023 6:03 PM * Jacquelyn Conley RN - 03/30/2023 12:39 PM EDT CDM Telephonic Outreach Provider Action/FYI CDM: CHF, CKD Left a message to verify symptom status, instructed to call PCP with any changes in condition or needs. Contacted for: Routine Telephonic Outreach Contact made with patient: No, left message. Jacquelyn Conley RN March 30, 2023 12:44 PM documented in this encounterNorwalk [facility] Hospital06-06-2023 NoteHNO ID: [id number] Author: Jacquelyn Conley RN Service: ? Author [...] Jacquelyn Conley RN March 30, 2023 12:44 [facility] NotePatient Outreach ([facility]) DARCY LUCAS ([id number]) 1935 M [facility] Date Time Provider Department 03/30/23 JACQUELYN CONLEY [facility] During your visit today, we recorded the [...] pounds in a week? No Based on take up operator, the following disposition is advised: No symptoms or symptoms present, not severe. Routed to: No Action Needed SEVEN Education Provided this Outreach: No Jacquelyn Conley RN April 01, 2023 6:03 PM Allergies As of Date: 03/30/2023 Noted Allergy Reaction INDOCIN (INDOMETHACIN SODIUM) 03/22/2012 8 - GI Upset NORVASC (AMLODIPINE BESYLATE) 12/16/2018 14 - Other: See Comments Comments: Dizziness OZSFRBF-XFQ-QPD REDUCTASE INHIBIT*07/10/2014 14 - Other: See Comments [...] as needed for cough. - Lacto 21-Bifido 7-V-Y0-B6-B12 (UP4 PROBIOTICS MEN'S) 50 billion cell -90 mg-30 mcg cap Take 1 tablet by mouth once daily. - atorvastatin (LIPITOR) 40 mg tablet Take 1 tablet by mouth once daily. - Coenzyme W35-Zvkowok E 100-100 mg cap Take by mouth. [...] 1 tablet by mouth once daily. - Qlezl-2-NTG-EPA-Fish Oil 1,000 mg (120 mg-180 mg) cap Take 2 g by mouth once daily. - PSYLLIUM HUSK, BULK, MISC Take 1 Packet by mouth once daily. 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 [facility]05-11-2023 NoteHNO ID: [id number] Author: Jacquelyn Conley RN Service: ? Author [...] Jacquelyn Conley RN March 04, 2023 2:51 [facility]05-11-2023 History of Present illness Narrative* Jacquelyn Conley RN - 03/04/2023 2:51 PM EDT CDM Telephonic Outreach Provider Action/FYI CDM: CHF, CKD 2nd call, left a message to verify symptom status, instructed to call PCP with any changes in condition or needs. Routine Telephonic Outreach Contact made with patient: No, left message. Jacquelyn Conley RN March 04, 2023 2:51 PM * Jacquelyn Conley RN - 03/02/2023 3:45 PM EDT CDM Telephonic Outreach Provider Action/FYI CDM: CHF, CKD Called Pt, left a message to verify symptom status, instructed to call PCP with any changes in condition or needs. Contacted for: Routine Telephonic Outreach Contact made with patient: No, left message. Jacquelyn Conley RN March 02, 2023 3:46 PM documented in this encounterNorwalk [facility] Hospital05-09-2023 NoteHNO ID: [id number] Author: Jacquelyn Conley RN Service: ? Author [...] Jacquelyn Conley RN March 02, 2023 3:46 [facility]05-09-2023 NotePatient Outreach ([facility]) DARCY LUCAS ([id number]) 1935 [facility] Date Time Provider Department 03/02/23 JACQUELYN CONLEY [facility] During your visit today, we recorded the [...] 2:54 PM Signed CDM Telephonic Outreach Provider Action/FY CDM: CHF, CKD 2nd call, left a [...] 14 - Other: See Comments Comments: Dizziness [id number]-GOM REDUCTASE INHIBIT*07/10/2014 14 - Other: See Comments [...] as needed for cough. - Lacto 21-Bifido 4-W-Y5-B6-B12 (UP4 PROBIOTICS MEN'S) 50 billion cell -90 mg-30 mcg cap Take 1 tablet by mouth once daily. - atorvastatin (LIPITOR) 40 mg tablet Take 1 tablet by mouth once daily. - Coenzyme K74-Pskxmbt E 100-100 mg cap Take by mouth. [...] 1 tablet by mouth once daily. - Pagkr-4-NAI-EPA-Fish Oil 1,000 mg (120 mg-180 mg) cap [...] left shoulder [M7*06/12/2014 Coronary artery disease involving [place]-apache verde*07/29/2015 S/P CABG (coronary artery bypass graft) [Z95.1] 2015 Hypokalemia [E87.6] 02/05/2016 01/29/2023 Osteoarthritis of spine with radiculopathy, lum*02/21/2016 History of permanent cardiac pacemaker placemen*09/03/2016 Paroxysmal atrial fibrillation (HCC) [I48.0] 09/03/2016 Chronic anticoagulation [Z79.01] 09/03/2016 12/16/2018 Carotid stenosis, asymptomatic [I65.29] 02/11/2017 Hyperglycemia [R73.9] 02/11/2017 Anemia o (more content not included)...[facility]04-18-2023 Note HNO ID: [id number] Author: Cat Art MD Service: ? Author Type: Physician Type: Progress Notes Filed: 02/09/2023 11:24 PM Note Text: AMBULATORY TELEPHONE VISIT Darcy Lucas has consented to this telephone encounter. Persons Present: patient and patient's spouse/significant other Chief Complaint/Reason: CKD follow-up HPI: Mr. 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 [place] UA. Today patient does not have active [...] 07/28/2022 6.0 5.0 - 8.0 Final Specific [place], Ur Date Value Ref Range Status 07/28/2022 [...] appointment Total Time Spent: 25 minutes Cat Art, [facility]04-17-2023 NoteHNO ID: [id number] Author: Jacquelyn Conley RN Service: ? Author [...] pounds in a week? No Based on take up operator, the following disposition is advised: Symptoms present, not severe. Routed to: No Action Needed SEVEN Education Provided this Outreach: No Jacquelyn Conley RN February 08, 2023 6:05 [facility]04-17-2023 History of Present illness Narrative* Jacquelyn Conley RN - 02/08/2023 6:03 PM EDT CDM Telephonic Outreach Provider Action/FYI CDM: CHF, [...] pounds in a week? No Based on take up operator, the following disposition is advised: Symptoms present, not severe. Routed to: No Action Needed SEVEN Education Provided this Outreach: No Jacquelyn Conley RN February 08, 2023 6:05 PM * Jacquelyn Conley RN - 02/05/2023 12:07 PM EDT CDM Telephonic Outreach Provider Action/FYI CDM: CHF, CKD Left a message to verify symptom status and needs, Instructed to call PCP with any changes in symptoms or condition Contacted for: Routine Telephonic Outreach Contact made with patient: No, left message. Jacquelyn Conley RN February 08, 2023 11:12 AM documented in this encounterNorwalk [facility]04-14-2023 NoteHNO ID: [id number] Author: Jacquelyn Conley RN Service: ? Author [...] Jacquelyn Conley RN February 08, 2023 11:12 [facility]04-14-2023 NotePatient Outreach ([facility]) DARCY LUCAS ([id number]) 1935 M [facility] Date Time Provider Department 02/05/23 JACQUELYN CONLEY AMBSARANYA During your visit today, we recorded the [...] pounds in a week? No Based on take up operator, the following disposition is advised: Symptoms present, not severe. Routed to: No Action Needed SEVEN Education Provided this Outreach: No Jacquelyn Conley RN February 08, 2023 6:05 PM Allergies As of Date: 02/05/2023 Noted Allergy Reaction INDOCIN (INDOMETHACIN SODIUM) 03/22/2012 8 - GI Upset NORVASC (AMLODIPINE BESYLATE) 12/16/2018 14 - Other: See Comments Comments: Dizziness IHIMBUO-MIU-KOP REDUCTASE INHIBIT*07/10/2014 14 - Other: See Comments [...] as needed for cough. - Lacto 21-Bifido 2-O-V6-B6-B12 (UP4 PROBIOTICS MEN'S) 50 billion cell -90 mg-30 mcg cap Take 1 tablet by mouth once daily. - atorvastatin (LIPITOR) 40 mg tablet Take 1 tablet by mouth once daily. - Coenzyme P71-Abujpcu E 100-100 mg cap Take by mouth. [...] 1 tablet by mouth once daily. - Mptxd-4-CPY-EPA-Fish Oil 1,000 mg (120 mg-180 mg) cap Take 2 g by mouth once daily. - PSYLLIUM HUSK, BULK, MISC Take 1 Packet by mouth once daily. 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 Author Type: Physician Type: Progress Notes Filed: 03/01/2023 2:10 AM Note Text: This note was created using NoteWriter. Subjective Darcy Lucas is a 87 year old male. Patient presents with: F/U 6 months SUBJECTIVE: Darcy Lucas is a 87 year old year old [...] tablets by mouth every Wednesday,Wednesday,Wednesday. Lacto 21-Bifido 3-X-A4-B6-B12 (UP4 PROBIOTICS MEN'S) 50 billion cell -90 mg-30 mcg cap Take 1 tablet by mouth once daily. atorvastatin (LIPITOR) 40 mg tablet Take 1 tablet by mouth once daily. Coenzyme N81-Epbyhda E 100-100 mg cap Take by mouth. [...] 10 mEq by mouth once daily. Takes Wed/Wed/Wed/Sun) sacubitril-valsartan (ENTRESTO) 49-51 mg tablet Take 1 [...] Take 1 tablet by mouth once daily. Pfuob-7-IXC-EPA-Fish Oil 1,000 mg (120 mg-180 mg) cap [...] decision making for managemen (more content not included)...[facility]04-11-2023 History of Present illness Narrative* Arnold Spencer MD - 02/02/2023 4:04 PM EDT This note was created using Apprissriter. Subjective Darcy Lucas is a 87 year old male. Patient presents with: F/U 6 months SUBJECTIVE: Darcy Lucas is a 87 year old year old [...] with patient, and I recommended no further interventionat this time. PAST MEDICAL HISTORY Diagnosis Date [...] tablets by mouth every Wednesday,Wednesday,Wednesday. Lacto 21-Bifido 9-W-E5-B6-B12 (UP4 PROBIOTICS MEN'S) 50 billion cell -90 mg-30 mcg cap Take 1 tablet by mouth once daily. atorvastatin (LIPITOR) 40 mg tablet Take 1 tablet by mouth once daily. Coenzyme S28-Lllczfb E 100-100 mg cap Take by mouth. [...] 10 mEq by mouth once daily. Takes e/Wed/Sat/Sun) sacubitril-valsartan (ENTRESTO) 49-51 mg tablet Take 1 [...] Take 1 tablet by mouth once daily. Lipha-2-TEI-EPA-Fish Oil 1,000 mg (120 mg-180 mg) cap Take 2 g by mouth once daily. PSYLLIUM HUSK, BULK, MISC Take 1 Packet by mouth once daily. Takes as needed pyridoxine, vitamin B6, (VITAMIN B-6) 100 mg tablet Take 1 tablet by mouth once daily. benzonatate (TESSALON PERLES) 100 mg capsule Take 1-2 capsules by mouth three times daily as neededfor cough. (Patient not taking: Reported on 02/02/2023) [...] sleep. Arnold Spencer MD documented in this encounterNorwalk [facility]03-21-2023 Discharge summary Author Ness Villanueva [facility] January 12, 2023 1:15pm Note Date/Time January 12, 2023 1:1 5pm [facility] [address] [place] [address] / REHABILITATION SERVICES DISCHARGE SUMMARY MR#: [id number] Acct: [id number] Name: DARCY LUCAS Rep #: [id number] : 1935 87 From: Ness Flores Referring Dr.: STEVE Marie Status: REG RCR Insurance: MEDICARE PART A B [employer] [place] It has been my pleasure to treat DARCY LUCAS referred by STEVE Rudd, withthe diagnosis of Lumbar Pain for a total of 36 visit(s). Discharge Date: Please see the following information for a summary of their discharge status. Subjective: Patient reports that she is doing a great job. He is not using his cane any more. He feels that he is 80% better. He is back in his shop. He is compliant with his exercise program. His is also very happy with his progress. R hip Pain Intensity (Out of 10): 0 Low back Pain Intensity (Out of 10): 3 % Improvement: 80 Objective/Function: Posture: fair throughout. Gait: no AD- no loss of balance or gait deviations noted Stairs: asc/desc 8 recip with 1 HR. Balance: see FGA. ROM: WFL. Palpation: not tender. Strength: Ankle: 5/5, Knee: 5/5, Hip: 4+/5 throughout, Core: fair minus. Flex: HS: moderate, Gastroc: moderate Goal 1:: Patient will be I with HEP and progression Goal Progress: Progressing Goal 2:: Patient will ambulate >300 feet with a normalized gait pattern Goal Progress: Progressing Goal 3:: Patient will demo TUG test 10 sec or under Goal Progress: Goal Met Goal 4:: Patient will increase FGA to within functional limits for his age Goal Progress: Goal Met Goal 5:: Patient will report 80% improvement Goal Progress: Goal Met Plan: 01/12/23: Discharge to I HEP. 12/08/22: 2x4 - first 1-2 weeks focus on I HEP but MORE on balance outside of the // bars- uneven surfaces. 09/16/22: Increase standing exercises. 2x6 weeks- functional mobility. Focus on LE and core strength/stabilization and proprioception with Functional mobility. If there are questions or concerns regarding this patient's physical therapy, please feel free to call me at [phone]. Thank you for the referral of thispatient. Sincerely, Ness Villanueva, DPT Balance/Gait/Functional tests - Balance/Special Test Scores Functional Gait Assessment Score: 25 % Disability: 16.6700 Oswestry Low Back Score: 4 Tug Test: <10 sec.=free mobile <Electronically signed by Ness Villanueva DPT> 01/12/23 [id number] CC: STEVE Marie; Dr. Arnold Spencer MD ~ ELR Signed [facility] Work Phone: 1(693) 967-167103-17-2023 NotePatient Outreach ([facility]) DARCY LUCAS ([id number]) 1935 M [facility] Date Time Provider Department 01/08/23 JACQUELYN CONLEY During your visit today, we recorded the following information about you: Jacquelyn Conley RN 01/08/2023 9:10 AM Signed INSIGHT M TELEPHONIC OUTREACH Provider Action/FYI: CDM: CHF, CKD [...] to speak with a social work steam meter reader to help give you support for any [...] you up for automated weekly questionnaires through Family[employer]af. This is an easy way for us [...] 14 - Other: See Comments Comments: Dizziness PKPMYOZ-UEK-KSH REDUCTASE INHIBIT*07/10/2014 14 - Other: See Comments Comments: myalgia LISINOPRIL 12/12/2020 3 - Cough Date Reviewed: 11/19/2022 Reviewed by: 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 - Fully Assessed Reason for Visit: Community [...] as needed for cough. - Lacto 21-Bifido 7-P-R0-B6-B12 (UP4 PROBIOTICS MEN'S) 50 billion cell -90 mg-30 mcg cap Take 1 tablet by mouth once daily. - atorvastatin (LIPITOR) 40 mg tablet Take 1 tablet by mouth once daily. - Coenzyme Y81-Trrwfxv E 100-100 mg cap Take by mouth. - loperamide (IMODIUM) 2 mg cap(s) (more content not included)...[facility]03-17-2023 NoteHNO ID: [id number] Author: Jacquelyn Conley RN Service: ? Author [...] to speak with a social work steam meter reader to help give you support for any [...] you up for automated weekly questionnaires through [employer]. This is an easy way for us [...] Jacquelyn Conley RN January 08, 2023 8:52 [facility]03-17-2023 History of Present illness Narrative* Jacquelyn Conley RN - 01/08/2023 8:16 AM EDT INSIGHT CDM TELEPHONIC OUTREACH Provider Action/FYI: CDM: [...] to speak with a social work steam meter reader to help give you support for any [...] work with you to ensure that we arekeeping your medical condition(s) well-controlled and to keep you healthy and out of the doctor's office or hospital. It s also not too late for me to sign you up for automated weekly questionnaires through [employer]. This is an easy way for us [...] the week as today in the Track PtOutreach and End outreach. Jacquelyn Conley RN January 08, 2023 8:52 AM documented in this encounterNorwalk [facility] Hospital03-16-2023 Miscellaneous Notes* Telephone Encounter - Tova Clark RN - 01/07/2023 10:35 AM EDT Patient has been identified by name and date of : Yes Spouse phones for refill(s): Requested Prescriptions Pending Prescriptions Disp Refills allopurinol (ZYLOPRIM) 100 mg tablet 180 tablet 1 Sig: Take 2 tablets by mouth once daily. For gout. Last Office Visit: 11/19/22 with 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 Next Visit: 02/02/[address] Palomo Clark RN documented in this encounterNorwalk [facility] Hospital02-14-2023 NoteHNO ID: [id number] Author: Jacquelyn Conley RN Service: ? Author Type: Registered Nurse Type: Progress Notes Filed: 12/08/2022 9:38 AM Note Text: INSIGHT CDM TELEPHONIC OUTREACH Provider Action/FYI: Routed Updates to Dr. Spencer CDM: CHF, CKD Pt denies Sob, wheezing, extremity edema improved Pt noted dry cough when he has acid reflux, he is taking Pepcid OTC which is effective, 12/11/22 Appt with Coco BARRETT/ Friend [facility] Wt 134 lbs, BP 120/80 Denies [...] to speak with a social work steam meter reader to help give you support for any [...] you up for automated weekly questionnaires through [employer]. This is an easy way for us [...] Jacquelyn Conley RN December 08, 2022 9:17 [facility]02-14-2023 History of Present illness Narrative* Jacquelyn Conley RN - 12/08/2022 9:17 AM EST INSIGHT CDM TELEPHONIC OUTREACH Provider Action/FYI: Routed Updates to Dr. Spencer CDM: CHF, CKD Pt denies Sob, wheezing, extremity edema improved Pt noted dry cough when he has acid reflux, he is taking Pepcid OTC which is effective, 12/11/22 Appt with Coco BARRETT/ Friend [facility] Wt 134 lbs, BP 120/80 Denies [...] to speak with a social work steam meter reader to help give you support for any [...] work with you to ensure that we arekeeping your medical condition(s) well-controlled and to keep you healthy and out of the doctor's office or hospital. It s also not too late for me to sign you up for automated weekly questionnaires through [employer]. This is an easy way for us [...] the week as today in the Track PtOutreach and End outreach. Jacquelyn Conley RN December 08, 2022 9:17 AM * Jacquelyn Conley RN - 12/07/2022 10:29 AM EST INSIGHT CDM TELEPHONIC OUTREACH Provider Action/FYI: CDM: [...] 07, 2022 10:29 AM documented in this encounterNorwalk Memorial Hospital02-13-2023 NotePatient Outreach ([facility]) DARCY LUCAS ([id number]) 1935 Per T Date Time Provider Department 12/07/22 JACQUELYN CONLEY [facility] During your visit today, we recorded the following information about you: Jacquelyn Conley RN 12/08/2022 9:38 AM Signed [facility] TELEPHONIC OUTREACH Provider Action/FYI: CDM: CHF, CKD [...] Conley RN 12/08/2022 9:38 AM Signed [facility] TELEPHONIC OUTREACH Provider Action/FYI: Routed Updates to Dr. Palomo DAVENPORT: CHF, CKD Pt denies Sob, wheezing, extremity edema improved Pt noted dry cough when he has acid reflux, he is taking Pepcid OTC which is effective, 12/11/22 Appt with Coco BARRETT/ Friend [facility] Wt 134 lbs, BP 120/80 Denies [...] to speak with a social work steam meter reader to help give you support for any [...] you up for automated weekly questionnaires through [employer]. This is an easy way for us [...] 14 - Other: See Comments Comments: Dizziness UEOSURY-KYI-CIF REDUCTASE INHIBIT*07/10/2014 14 - Other: See Comments Comments: myalgia LISINOPRIL 12/12/2020 3 - Cough Date Reviewed: 11/19/2022 Reviewed by: 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 - Fully Assessed Reason for Visit: Community Monitoring Outreach [Other] Prescriptions as of 12/08/2022 - torsemide (DEMADEX) 10 mg tablet Take 2 tablets by mouth every Wednesday,Wednesday,Wednesday. - benzonatate (TESSALON PERLES) 100 mg capsule Take 1-2 capsules by mouth three times daily as needed for cough. - Lacto 21-Bifido 0-D-H3-B6-B12 (UP4 PROBIOTICS MEN'S) 50 billion cell -90 mg-30 mcg cap Take 1 tablet by mouth once daily. - magnesium oxide (MAG-OX) 400 mg (241.3 mg magnesium) tablet Take 1 tablet by mouth once daily. - atorvastatin (LIPITOR) 40 mg tablet Take 1 tablet by mouth once daily. - Co (more content not included)...[facility]02-13-2023 NoteHNO ID: [id number] Author: Jacquelyn Conley RN Service: ? Author [...] Jacquelyn Conley RN December 07, 2022 10:29 [facility]02-10-2023 Miscellaneous Notes* Telephone Encounter - Elizabeth Evans RN - 12/04/2022 11:57 AM EST Left message for pt to return phone call. Inquiring about who he is getting his eliquis filled with. [facility] We have not [facility] since 2020. He may be getting assistance through the assistance program. Please verify. Elizabeth Evans RN documented in this encounterNorwalk Memorial Hospital01-31-2023 Miscellaneous Notes* Telephone Encounter - Malina Salas LPN - 11/24/2022 1:07 PM EST notified and verbalized understanding. * Telephone Encounter - 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 - 11/24/2022 12:05 PM EST Noted. The diuretic the cardiology group ordered should help with the cough * Telephone Encounter - Malina Salas LPN - 11/24/2022 10:34 AM EST said cough is no better. Cardiology is ordering labs because they have put him on spirolactoneand potassium so are checking labs on medication. Once complete and results back cardiology will call him back with further instructions. * Telephone Encounter - 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 APRN.SUSHMA - 11/24/2022 10:30 AM EST No need for refill of azithromycin. How is his cough? Did cardiology order labwork or do we need to do that? * Telephone Encounter - Marlen French Pss - 11/24/2022 10:12 AM EST Joseph is finishing up his azithromycin today and is asking if he needs to have a refill. Please call her at [phone] * Telephone Encounter - Malina Salas LPN - 11/24/2022 9:31 AM EST Spoke with patients . Patient called cardiology as soon as they left appointment with SUSHMA Bellamy. Rn Cvor put him on Spirolactone and potassium and wanted him to have labs done wed,wed, or and once they have lab work back she is to call for an appt with them. * Telephone Encounter - 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 APRN.CNS - 11/23/2022 4:46 PM EST Please check to see how he is doing re: cough and if he has a cardiology appointment upcoming. documented in this encounterNorwalk [facility] Hospital01-27-2023 Miscellaneous Notes* Telephone Encounter - Malina Brittany - 11/20/2022 10:32 AM EST Joseph needs a refill on Torsemide 10 mg but [facility] said that they told you the cage/vault supervisor put him on Torsemide 20 mg on Wednesday, Wednesday and Wednesday. [facility] want you to remember that when you refill the prescription. Please send to [facility]. Any questions call [facility] [phone] documented in this encounterNorwalk Memorial Hospital01-26-2023 NoteHNO ID: [id number] Author: RT Ellen(R) Service: Nuclear Medicine Author Type: Technologist Type: Progress Notes Filed: 11/19/2022 2:38 PM Note Text: Radiology Service Progress Note PATIENT NAME: Darcy Lucas DATE OF SERVICE: November 19, 2022 TIME: [...] PERIPHERAL IV DATA: Not applicable SIGNED BY: RT Ellen(R) November 19, 2022 2:26 [facility]01-26-2023 NoteHNO ID: [id number] Author: 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 Service: ? Author Type: Nurse Specialist Type: Progress Notes Filed: 11/19/2022 2:18 PM Note Text: SUBJECTIVE: SHINGRIX VACCINE(1 of 2) Never done DTAP,TDAP,TD(1 - Tdap) due on 08/20/2017 COVID-19 VACCINE(3 - Booster for Pfizer series) due on 04/29/2021 ADVANCE DIRECTIVE DISCUSSION Never done DEPRESSION ASSESSMENT Never done LDL CHOLESTEROL due on 10/21/2022 HPI Darcy Lucas is a 87 year old male. 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 Recent echocardiogram at [facility] showed ejection fraction of 20%, severe global hypokinesis, 1-2+ eccentric mitral regurgitation, RVSP 44 mmHg. 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 He was treated with Lasix 40 mg IV twice daily while hospitalized. 1500 mL fluid restriction. Daily weights. Kidney and electrolyte monitoring. Followed by [facility], . He was seen [...] and magnesium advised. Advised to follow-up with pmp certified project manager and cage/vault supervisor. Advised to follow-up with urologist Dr. [...] atraumatic. Right Ear: Tympa (more content not included)...[facility] 11-19-2022 History of Present illness Narrative* Jacquelyn Plaza RT(R) - 11/19/2022 2:30 PM EST Radiology Service Progress Note PATIENT NAME: Darcy Lucas DATE OF SERVICE: November 19, 2022 TIME: 2:26 PM PATIENT IDENTITY VERIFICATION COMPLETED USING TWO (2) IDENTIFIERS: Name and Date of confirmedby patient verbally. FALL SCREENING: Has the patient had 2 falls in the last year or 1 fall with injury or currently using an Ambulatory Assistive Device (Walker, Cane, Wheelchair, Crutches, etc.)? No PATIENT GENDER DATA: Male PATIENT RELEVANT IMPLANT DATA REVIEWED: Not Applicable RADIOLOGY DEPARTMENT: General X-ray: Exam(s) Completed: Chest X-Ray PERIPHERAL IV DATA: Not applicable SIGNED BY: RT Ellen(R) November 19, 2022 2:26 PM documented in this encounterNorwalk Memorial Hospital01-12-2023 NoteHNO ID: [id number] Author: Jacquelyn Conley RN Service: ? Author Type: Registered Nurse Type: Progress Notes Filed: 11/05/2022 10:38 AM Note Text: INSIGHT CDM TELEPHONIC OUTREACH Provider Action/FYI: Spk with Pt, he has intermittent dry cough, completed 11/03/[address] Cat Art MD Nephrology noted cough may be due [...] to speak with a social work steam meter reader to help give you support for any [...] you up for automated weekly questionnaires through [employer]. This is an easy way for us [...] Jacquelyn Conley RN November 05, 2022 10:17 [facility]01-12-2023 History of Present illness Narrative* Jacquelyn Conley RN - 11/05/2022 10:17 AM EST INSIGHT CDM TELEPHONIC OUTREACH Provider Action/FYI: Spk with Pt, he has intermittent dry cough, completed 11/03/[address] Cat Art MD Nephrology noted cough may be due [...] to speak with a social work steam meter reader to help give you support for any [...] work with you to ensure that we arekeeping your medical condition(s) well-controlled and to keep you healthy and out of the doctor's office or hospital. It s also not too late for me to sign you up for automated weekly questionnaires through [employer]. This is an easy way for us [...] the week as today in the Track PtOutreach and End outreach. Jacquelyn Conley RN November 05, 2022 10:17 AM * Jacquelyn Conley RN - 11/04/2022 9:39 AM EST INSIGHT CDM TELEPHONIC OUTREACH Provider Action/FYI: CHF/ CKD: Called [...] Conley RN November 04, 2022 9:39 AM * Jacquelyn Conley RN - 11/02/2022 12:21 PM EST [facility] TELEPHONIC OUTREACH Provider Action/FYI: Called Pt left a message to verify symptom status and needs. Instructed to call PCP with any symptom or condition changes. Contact made with patient: No - Left message Hello my name is Jacquelyn Conley RN your Public Health Dietitian from the [facility] I am callingtoday for your bi-weekly check in. I am sorry I missed your call. I will reach out to you again tomorrow. (if the third call I will reach out to you again next week) Enter next patient outreach date for the following business day using the Track Pt Outreach. End outreach. Jacquelyn Conley RN November 02, 2022 12:21 PM documented in this encounterNorwalk Memorial Hospital01-11-2023 NoteHNO ID: [id number] Author: Jacquelyn Conley RN Service: ? Author Type: Registered Nurse Type: Progress Notes Filed: 11/05/2022 10:38 AM Note Text: [facility] TELEPHONIC OUTREACH Provider Action/FYI: CHF/ CKD: [...] Jacquelyn Conley RN November 04, 2022 9:39 [facility]01-10-2023 NoteHNO ID: [id number] Author: Cat Art MD Service: ? Author Type: Physician Type: Progress Notes Filed: 11/03/2022 6:17 PM Note Text: [facility] KIDNEY MEDICINE [facility] SERVICE DATE: 11/03/2022 SERVICE TIME: 6:12 PM CHIEF COMPLAINT: CKD follow up HPI: Mr. Lucas is a 87 year old male with [...] of Left Shoulder Coronary Artery Disease Involving Pic[place]une Coronary Artery of [place] Heart Without Angina Pectoris S/P Cabg (Coronary [...] Diastolic Heart Failure (Hcc) MEDICATIONS: Lacto 21-Bifido 0-K-T9-B6-B12 (UP4 PROBIOTICS MEN'S) 50 billion cell -90 [...] Tablet Every Wednesday, Wednesday, and Wednesday) Coenzyme Q09-Cpyjvrs E 100-100 mg capTake by mouth.Disp: Rfl: [...] by mouth once daily.Disp: 30 tabletRfl: 0 Qvnhv-6-WOR-EPA-Fish Oil 1,000 mg (120 mg-180 mg) capTake [...] taking: No sig reported) (more content not included)...[facility]01-10-2023 History of Present illness Narrative* Cat Art MD - 11/03/2022 3:09 PM EST [facility] KIDNEY MEDICINE [facility] SERVICE DATE: 11/03/2022 SERVICE TIME: 6:12 PM CHIEF COMPLAINT: CKD follow up HPI: Mr. Lucas is a 87 year old male with PMH of CKD stage IIIa, mild bilateral chronic hydronephrosis. 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 For H&P please refer to my note on 07/10/2022. Today patient reports feeling overall well. His weight is remaining stable in 145 to 150 pounds. [place] has LE edema, which is also stable as per patient. His diuretic schedule was recently changedby cardiology to 20 mg on MWF. His last BMP on 09/05/2022 showed creatinine of 1.84, which is actually down trended from 2.5 on 08/18/2022. He has upcoming appointment with GI due to chronic diarrheawith plan for endoscopy on 12/08/2021. UA normal on 07/28/22 without proteinuria or hematuria. SPEP was negative in 06/2022. PAST MEDICAL HISTORY: ACTIVE PROBLEM LIST Pvc's (Premature Ventricular Contractions) Essential Hypertension Mixed Hyperlipidemia Mvp (Mitral Valve Prolapse) Collagenous Colitis Hyperuricemia Complete Rotator Cuff Tear of Left Shoulder Coronary Artery Disease Involving Pic[place]une Coronary Artery of [place] Heart Without Angina Pectoris S/P Cabg (Coronary [...] Diastolic Heart Failure (Hcc) MEDICATIONS: Lacto 21-Bifido 1-B-B6-B6-B12 (UP4 PROBIOTICS MEN'S) 50 billion cell -90 [...] 20 mg by mouth once daily. 1 TabletEvery Wednesday, Wednesday, and Wednesday) Coenzyme Y54-Noazjns E 100-100 mg cap^Take by mouth.^Disp: ^Rfl: [...] 1 tablet by mouth once daily.^Disp: 30 tablet^Rfl:0 Jjzcw-0-AEX-EPA-Fish Oil 1,000 mg (120 mg-180 mg) cap^Take [...] Upset Norvasc [Amlodipine* Other: See Comments Dizziness Wfcxphs-Kvy-Dgc Red* Other: See Comments myalgia Lisinopril Cough REVIEW OF SYSTEMS: Constitutional: No fever and No chills Cardiovascular: No chest pain or pressure, No PND, and No syncope Genitourinary: No hesitancy, No pink or red urine, and No dysuria PHYSICAL EXAM: BP 121/67 Pulse 63 Ht 177.8 cm (5' 10) Wt 68.9 kg (152 lb) BMI 21.81 [...] 07/28/2022 6.0 5.0 - 8.0 Final Specific [place], Ur Date Value Ref Range Status 07/28/2022 [...] spelling, grammar, syntax or punctuation present. Cat Art MD Staff, Department of Kidney Medicine Pager # [phone] 11/03/22 3:09 PM CC: PRIMARY CARE PHYSICIAN: Arnold Spencer MD documented in this encounterNorwalk [facility] Hospital01-09-2023 NoteHNO ID: [id number] Author: Jacquelyn Conley RN Service: ? Author Type: Registered Nurse Type: Progress Notes Filed: 11/05/2022 10:38 AM Note Text: INSIGHT CDM TELEPHONIC OUTREACH Provider Action/FYI: Called Pt left a message to verify symptom status and needs. Instructed to call PCP with any symptom or condition changes. Contact made with patient: No - Left message Hello my name is Jacquelyn Conley RN your Public Health Dietitian from the [facility] I am calling today for your bi-weekly check in. I am sorry I missed your call. I will reach out to you again tomorrow. (if the third call I will reach out to you again next week) Enter next patient outreach date for the following business day using the Track Pt Outreach. End outreach. Jacquelyn Conley RN November 02, 2022 12:21 [facility]01-09-2023 NotePatient Outreach ([facility]) SATISHDARCY ([id number]) 1935 M [facility] Date Time Provider Department 11/02/22 JACQUELYN CONLEY During your visit today, we recorded the following information about you: Jacquelyn Conley RN 11/05/2022 10:38 AM Signed [employer] [facility] TELEPHONIC OUTREACH Provider Action/FYI: Called Pt left a message to verify symptom status and needs. Instructed to call PCP with any symptom or condition changes. Contact made with patient: No - Left message Hello my name is Jacquelyn Conley RN your Public Health Dietitian from the [facility] I am calling today for [...] Jacquelyn Conley RN 11/05/2022 10:38 AM Signed [employer] [facility] TELEPHONIC OUTREACH Provider Action/FYI: CHF/ CKD: [...] Jacquelyn Conley RN 11/05/2022 10:38 AM Signed [employer] [facility] TELEPHONIC OUTREACH Provider Action/FYI: Spk with Pt, he has intermittent dry cough, completed 11/03/[address] Cat Art MD Nephrology noted cough may be due [...] to speak with a social work steam meter reader to help give you support for any [...] you up for automated weekly questionnaires through [employer]. This is an easy way for us [...] Other: See Comments Comments: (more content not included)...[facility]12-21-2022 Miscellaneous Notes* Telephone Encounter - Arnold Spencer MD - 10/14/2022 5:10 PM EST The following approved medication requests have been transmitted electronically. Requested Prescriptions Prescriptions Disp Refills magnesium oxide (MAG-OX) 400 mg (241.3 mg magnesium) tablet 30 tablet 1 Sig: Take 1 tablet by mouth once daily. Arnold Spencer MD * Telephone Encounter - Blanquita Mireles RN - 10/14/2022 9:51 AM EST Patient has been identified by name and [...] you. Blanquita Mireles RN documented in this encounterNorwalk Memorial Hospital12-16-2022 Miscellaneous Notes* Telephone Encounter - Dorothy Landon - 10/09/2022 9:55 AM EST Patient has been identified by name and [...] Thank you. Dorothy Navarrete documented in this encounterNorwalk Memorial Hospital12-06-2022 History of Present illness Narrative* Jacquelyn Conley RN - 09/29/2022 8:14 AM EST [facility] TELEPHONIC OUTREACH Provider Action/FYI: Spk with spouse Herson and Pt, denies new or worsening CHF/ CKD or other symptoms. Pt has mild intermittent pedal edema in left foot greater than right foot, using compression stockings, follows a KRISTIN diet Pt was seen by Dr. Harvey Cardiology 09/24/22 ordered to take Torsemide 20 mg Mon/ Wed/Wednesday Pt is receiving Physical Therapy 2x week at [facility] [place] BP 118-120/80, wt 150 lbs Gastroenterology Appt 10/06/22 Coco Singh at [facility] ADL/ Falls/ Goals completed Contact made with [...] to speak with a social work steam meter reader to help give you support for any [...] work with you to ensure that we arekeeping your medical condition(s) well-controlled and to keep you healthy and out of the doctor's office or hospital. It s also not too late for me to sign you up for automated weekly questionnaires through [employer]. This is an easy way for us [...] the week as today in the Track PtOutreach and End outreach. Jacquelyn Conley RN September 30, 2022 9:36 AM documented in this encounterNorwalk Memorial Hospital11-04-2022 History of Present illness Narrative* Beverley Kaba LPN - 08/28/2022 1:39 PM EDT Verified name and date of . CC Post Void Residual HPI: Darcy Lucas is a 87 year old male. The patient is here now for an appointment with JAMARCUS Steve MT, MICAELA. Procedure: Explained procedure to patient and verbalizes [...] With Partha Santana PA-C documented in this encounterNorwalk Memorial Hospital11-04-2022 History of Present illness Narrative* Jarvis Mcgee RN - 08/28/2022 11:52 AM EDT INSIGHT CDM TELEPHONIC OUTREACH Provider Action/FYI: Spk with Pt and , Pt denies new or worsening CHF/ CKD symptoms or needs. Pt reports intermittent diarrhea for 4 mths, is taking immodium, periodic Probiotics and Psyllium. Pt has scheduled Appt 08/28/22 with Urology Nurse for PVR, 08/29/22 Dr. Fox/ Mariola Pritchett CNP Gastroenterology will address Hx diarrhea. 11/10/[address] Larios Pulmonology. Contact made [...] to speak with a social work steam meter reader to help give you support for any [...] work with you to ensure that we arekeeping your medical condition(s) well-controlled and to keep you healthy and out of the doctor's office or hospital. It s also not too late for me to sign you up for automated weekly questionnaires through [employer]. This is an easy way for us [...] the week as today in the Track PtOutreach and End outreach. Jacquelyn Conley RN August 28, 2022 11:52 AM documented in this encounterNorwalk Memorial Hospital10-26-2022 History of Present illness Narrative* Cat Art MD - 08/19/2022 5:33 PM EDT Nephrology brief note: Called the patient and discussed with him and his findings of the last blood work on 08/18/2022 with creatinine elevation to 2.5. Patient reports feeling well, no active complaints. He states that he swelling almost gone, and he does not have shortness of breath. He still takes torsemide 10 mgdaily along with potassium supplementation. BP controlled as per patient. I recommended to start taking torsemide with potassium only if weight is increasing, but did not take it if weight remains stable. We will repeat BMP and BNP in 1 week to reassess. Patient advised toget evaluated earlier if symptoms become uncontrolled. Cat Art MD Staff, Department of Kidney Medicine Pager # [phone] 08/19/22 5:36 PM documented in this encounterNorwalk Memorial Hospital10-18-2022 Miscellaneous Notes* Telephone Encounter - Araceli Hassan RN - 08/11/2022 10:08 AM EDT Pts called and is notified of providers message. Pt voices understanding, Pts will call and schedule appointment with Dr Dominique. Orders, most recent OV, and most recent labs were sent to Mikie at [phone]. Araceli Hassan RN * Telephone Encounter - Mary Hogan RN - 08/05/2022 1:49 PM EDT Patient's calls is asking if patient can have a sanitation superintendent referral. Patient was seen at Dr. Ortega and nurse practitioner suggested that patient have a referral for a sanitation superintendent due to patient's chronic diarrhea. asking for referral. Please review and advise, Mary Hogan RN documented in this encounterNorwalk Memorial Hospital10-17-2022 Miscellaneous Notes* Telephone Encounter - Ivana Roberts LPN - 08/10/2022 10:50 AM EDT Pt's called and states pt was to [...] you. Ivana Roberts LPN documented in this encounterNorwalk Memorial Hospital10-14-2022 History of Present illness Narrative* Jarvis Mcgee RN - 08/07/2022 11:41 AM EDT INSIGHT CDM TELEPHONIC OUTREACH Provider Action/FYI: Routed updates to Dr. Spencer/ Della Pineda CNP . Pt and are requesting a call to them directly with a Gastroenterology referral. Spk with Pt, he noted was diagnosed with Covid, Admitted 07/13/22 to [facility] due to dehydration. Pt denies current Sob, wheezing, coughing or edema, BP 117/68, wt 148 lbs, he is speaking in full sentences, no respiratory distress. Pt and is asking for a Gastroenterology referral for Acid reflux and intermittent diarrhea forpast 4 months. noted he was checked for and negative for C-Diff at [facility]. Pt completed Appt 08/04/[address] Oquendos / Monik Fraser FLUID JET CUTTER OPERATOR, Echo is scheduled 08/17/22 at [facility], Herson noted Cardiology stated Joseph may need to [...] to speak with a social work steam meter reader to help give you support for any [...] work with you to ensure that we arekeeping your medical condition(s) well-controlled and to keep you healthy and out of the doctor's office or hospital. It s also not too late for me to sign you up for automated weekly questionnaires through [employer]. This is an easy way for us [...] the week as today in the Track PtOutreach and End outreach. Jacquelyn Conley RN August 07, 2022 11:41 AM documented in this [facility]10-11-2022 Miscellaneous Notes* Telephone Encounter - Sandy Urrutia Ma - 08/04/2022 2:23 PM EDT Faxed * Telephone Encounter - Enid Marie APRN.CNP - 08/04/2022 8:59 AM EDT Ordered, please print and fax Enid Marie APRN.CNP * Telephone Encounter - Lindsey Gómez LPN - 08/03/2022 4:13 PM EDT Wanting a referral to [facility] for physical therapy. Lindsey Gómez LPN documented in this encounterNorwalk Memorial Hospital10-07-2022 Instructions* Patient Instructions* Cat Art MD - 07/31/2022 3:19 PM EDT You [...] up in 3 months documented in this encounterNorwalk Memorial Hospital10-07-2022 History of Present illness Narrative* Cat Art MD - 07/31/2022 3:00 PM EDT [facility] KIDNEY MEDICINE [facility] SERVICE DATE: 07/31/2022 SERVICE TIME: 2:53 PM CHIEF COMPLAINT: Post hospital discharge follow-up HPI: Mr. Lucas is a 87 year old male with [...] creatinine 1.2-1.3 (GFR 58-62), last in 12/2021. Patienthad hospital admission in 04/2022 for COVID. During [...] exam Interval hx: Pt was admitted to [facility] July 13 through July 15 with [...] Diarrhea has also improved (he states that [place] cheese helps him with that). He is continued on torsemide 10 mg daily, compliant with medication. 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 Take 10 mg daily, take one additional 10 mg daily as needed for leg swelling, shortness of breath or weight gain of 5 pounds or more/1week^Disp: 30 tablet^Rfl: 1 Coenzyme U84-Jcrffsj E 100-100 mg cap^Take by mouth.^Disp: ^Rfl: [...] 1 tablet by mouth once daily.^Disp: 30 tablet^Rfl:0 Kmpvv-0-XZB-EPA-Fish Oil 1,000 mg (120 mg-180 mg) cap^Take [...] Upset Norvasc [Amlodipine* Other: See Comments Dizziness Jejktbd-Cvx-Tto Red* Other: See Comments myalgia Lisinopril Cough REVIEW OF SYSTEMS: Constitutional: No fever, No chills, and No weight loss Cardiovascular: No chest pain or pressure, No dyspnea on exertion, No palpitations, and positive for orthostatic dizziness Genitourinary: No hesitancy, No frequency, No flank pain, and No dysuria PHYSICAL EXAM: BP 127/72 Pulse 94 Ht 177.8 cm (5' 10) Wt 64.9 kg (143 lb) BMI 20.52 [...] 07/28/2022 6.0 5.0 - 8.0 Final Specific [place], Ur Date Value Ref Range Status 07/28/2022 [...] counseling in detail with family as outlined above,and coordination of care is 35 min Voice recognition software was used in the creation of this document. There may be unintended errors in spelling, grammar, syntax or punctuation present. Cat Art MD Staff, Department of Kidney Medicine Pager # [phone] 07/30/22 8:53 PM CC: PRIMARY CARE PHYSICIAN: Arnold Spencer MD documented in this encounterNorwalk Memorial Hospital10-06-2022 Miscellaneous Notes* Telephone Encounter - Araceli Hassan RN - 2022 11:59 AM EDT Pt and called and notified of providers results and instructions. They voice understanding. Araceli Hassan RN * Telephone Encounter - Della Pineda APRN.CNS - 2022 7:20 AM EDT Labs show creatinine improved. Potassium improved. BUN elevated. Recommend sufficient fluid intake and one torsemide daily today and tomorrow, then adjust according to pmp certified project manager recommendations. Glucose elevated, will check A1c with [...] 28 (L) 31 (L) documented in this encounterNorwalk Memorial Hospital10-04-2022 History of Present illness Narrative* Partha Santana PA-C - 07/28/2022 2:06 PM EDT Images from the original note were not included. [facility] NEW PATIENT CLINIC NOTE SERVICE DATE: 07/28/2022 SERVICE TIME: 2:07 PM NAME: Darcy Lucas CHIEF COMPLAINT: Flomax and Renal Cyst, CKD HISTORY OF PRESENT ILLNESS: Darcy Lucas is a 86 year old Male with [...] pounds or more/1week^Disp: 30 tablet^Rfl: 1 Coenzyme N65-Kprmjse E 100-100 mg cap^Take by mouth.^Disp: ^Rfl: [...] 1 tablet by mouth once daily.^Disp: 30 tablet^Rfl:0 PSYLLIUM HUSK, BULK, MISC^Take 1 Packet by [...] ^Rfl: (Patient not taking: No sig reported) Btnln-9-RQV-EPA-Fish Oil 1,000 mg (120 mg-180 mg) cap^Take [...] resp. rate 14, height 177.8 cm (5' 10), weight 65.3 kg (144 lb), SpO2 96 [...] month PVR with Nurse JAMARCUS Steve MT, TIMA * Beverley Kaba LPN - 07/28/2022 1:30 PM EDT Verified name and date of . CC Post Void Residual HPI: Darcy Lucas is a 86 year old male. The [...] Plan: Appointment with Partha. documented in this encounterNorwalk Memorial Hospital09-27-2022 Instructions* Patient Instructions* Della Pineda APRN.CNS - 07/21/2022 3:36 PM EDT Take torsemide 10 mg daily. Take an additional 10 mg dose if leg swelling, shortness of breath or 3pound or greater weight gain. Take potassium once daily while taking torsemide documented in this encounterNorwalk Memorial Hospital09-27-2022 History of Present illness Narrative* Della Pineda APRN.CNS - 07/21/2022 2:40 PM EDT Transitional Care Management Progress Note The patients TCM visit was performed within the 7 days of discharge. Patient's Date of discharge: July 15, 2022 Date of initial coordinator contact after discharge: July 16, 2022 Provider Documentation: In follow-up of hospitalization, Darcy Lucas is a 86 year old male with the chief complaint of acute on chronic systolic heart failure I have reviewed the patient s last hospital course including diagnostic testing performed during this hospitalization, their discharge medications, and my assessment and plan with the patient and anyfamily members present at today s visit. HPI: He was admitted to [facility] July 13 through July 15 with progressively worsening shortness of breath for several weeks prior to arrival along with chest discomfort. [facility] ejection fraction [facility] 20%, severe global hypokinesis, 1-2+eccentric mitral regurgitation, RVSP 44 mmHg. 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 He was treated with Lasix 40 mg IV twice daily while hospitalized. 1500 mL fluid restriction. Dailyweights. Kidney and electrolyte monitoring. Followed by [facility], . He was seen [...] and magnesium advised. Advised to follow-up with pmp certified project manager and cage/vault supervisor. Advised to follow-up with urologist Dr. [...] appearing, alert, in no acute distress, and well- hydrated, well nourished,motor and sensory appear to be normal Lungs: [...] immunization - ICD9: V03.89, ICD10: Z23 - Vyclone COVID-19 BIVALENT BOOSTER VACCINE, AGE 12+ YR [...] 21, 2022 12:59 PM documented in this encounterNorwalk Memorial Hospital09-23-2022 History of Present illness Narrative* Jarvis Mcgee RN - 07/17/2022 2:01 PM EDT INSIGHT CDM TELEPHONIC OUTREACH Provider Action/FYI: Call [...] 17, 2022 2:01 PM documented in this encounterNorwalk Memorial Hospital09-22-2022 History of Present illness Narrative* Sheba Kaur GWEN - 07/16/2022 12:50 PM EDT TRANSITION CARE MANAGEMENT (TCM) INITIAL CONTACT Lab Rn Outreach Provider Action/FYI: TCM Initial contact with patient post discharge, spoke to spouse. Patient identified by name and . TRANSITION CARE MANAGEMENT INITIAL OUTREACH DOCUMENTATION: Date of Outreach: 07/16/2022 Outreach Attempt 1: Contact Made Date of Discharge 07/15/2022 Some recent data might be hidden SUMMARY: -Pt discharged from [facility] on 07/15/22. -Admitted for: chest pain [...] pt spironolactone since the torsemide was increased. [facility] did not have spironolactone on pts discharge med list. Were any of your medications discontinued? No Do you have any questions about getting or taking your medications? Yes she will review at 07/21/22 appt with PHARMACEUTICAL SCIENTIST. She has also reached out to the pmp certified project manager to get a sooner appt since pt [...] to stay with [facility]. documented in this encounterNorwalk Memorial Hospital09-22-2022 Miscellaneous Notes* Telephone Encounter - Malina Soto - 07/16/2022 11:21 AM EDT Joseph's Herson called saying after the appointment on 07/10 Joseph ended up in the hospital. When he was released they suggested that he come and see you within 2 weeks but you have no appointments until August. would like for you to call. [phone]. Patient was admitted to [facility] [place]. documented in this encounterNorwalk Memorial Hospital09-16-2022 Instructions* Patient Instructions* Cat Art MD - 07/10/2022 4:52 PM EDT You [...] for further instruction. Please, follow with your cage/vault supervisor at your closest convenience Follow up in 2-3 months with blood test prior to your appt documented in this encounterNorwalk Memorial Hospital09-16-2022 History of Present illness Narrative* Cat Art MD - 07/10/2022 4:16 PM EDT [facility] KIDNEY MEDICINE [facility] SERVICE [...] function, chronic diarrhea, LE edema HPI: Mr. Lucas is a 86 year old male with PMH of CKD stage IIIa, HTN, combined CHF with EF 20% (03/2022), chronic diarrhea, CAD status post CABG, HLD, bradycardia status post pacemaker placement, intracranial bleed due to fall, who presents for evaluation of abnormal kidney function. Chart reviewed. Patient had had CKD stage III with baseline creatinine 1.2-1.3 (GFR 58-62), last in12/2021. Patient had hospital admission in 04/2022 for COVID. During hospital stay he developed diarrhea, and also had an MARCOS with creatinine peaked at 2.07. Due to lack of available records, not clearcreatinine trend after that, creatinine was 2.0 on 06/23/2022 --> 1.57 on 07/06/2022. Patient had k idney US done on 05/09/2022, showed right kidney [...] 1 tablet by mouth once daily.^Disp: 30 tablet^Rfl:0 Qwbfs-2-JXF-EPA-Fish Oil 1,000 mg (120 mg-180 mg) cap^Take [...] Upset Norvasc [Amlodipine* Other: See Comments Dizziness Acpbwoa-Edc-Crx Red* Other: See Comments myalgia Lisinopril Cough [...] 145/81 Pulse 63 Ht 172.7 cm (5' 8) Wt 70.3 kg (155 lb) BMI 23.57 [...] 06/14/2015 6.5 5.0 - 8.0 Final Specific [place], Ur Date Value Ref Range Status 06/14/2015 [...] Calcium, Total (mg/dL) Date Value 07/06/2022 9.2 [facility] [address] [place] [address] Echo Complete 03/27/22807 MR#: [id number] Acct: [id number] Name: DARCY LUCAS Rep #:[id number] : [id number] 86 From: Destin Harvey MD Attending Dr: MD Ruel Duncan tatus: JOSÉ ANTONIO ORTEGAI Ordering Dr: Destin Harvey MD Date: 01/13 Location: [facility] Sex: M C Admitted: Reason For Study: [...] Josh Herman RCS 03/27/22 1108 Date _ Destin Harvey MD CC: Dr. Destin Harvey MD; Dr. Arnold Spencer MD ~ Date Dictated: 03/27/22 0808 Date Transcribed: 03/27/22 1108 Kidney and Bladder MR#: [id number] Acct: [id number] Name: DARCY LUCAS Rep #: [id number] : 1935 M 86 From: [facility] [place] PCP: Dr. Arnold Spencer MD Status: AD M IN Study:Kidney and Bladder Date of Exam: 0 05/09/22 Exam# [id number] Ordering Dr: Yisel Pablo MD STUDY: RENAL ULTRASOUND - COMPLETE REASON FOR EXAM: Male, 86 years old. Acute kidney injury. TECHNIQUE: Ultrasound evaluation of the kidneys was performed with real-time and static tracey-scale imaging. COMPARISON: None. FINDINGS: RIGHT KIDNEY: Normal location of the [...] fluid does the right left upper quadrants. US/Kidney and Bladder IMPRESSION: 1. Cortical thinning with increased renal cortical echogenicity suggestive of medical renal disease. 2. Mild bilateral hydronephrosis. 3. Left renal cyst. 4. Normal urinary bladder. Electronically Signed: Jacob Templeton DO at 21:29 EDT Reading Location ID and State: [address] [place] [address] Tel [phone], Service support , ASSESSMENT: 86 year old male who presents with impaired kidney function. Encounter Diagnosis ICD-10-CM 1. Chronic 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) I50.42 NT PRO BNP torsemide (DEMADEX) 10 mg tablet RENAL FUNCTION PANEL DISCONTINUED: furosemide (LASIX) 20 mg tablet 2. MARCOS (acute kidney injury) ([facility]) N17.9 NT PRO BNP URINALYSIS, WITH MICROSCOPIC PROTEIN CREATININE RATIO ALBUMIN/CREAT RATIO RND UR MONOCLONAL PROTEIN, SERUM (BLOOD) US KIDNEY/BLADDER torsemide (DEMADEX) 10 mg tablet RENAL FUNCTION PANEL 3. Hydronephrosis, unspecified hydronephrosis type N13.30 US KIDNEY/BLADDER 4. Edema, unspecified type R60.9 5. Chronic combined systolic and diastolic CHF (congestive heart failure) ([facility]) I50.42 6. Diarrhea, unspecified type [...] and as tolerated. We will also obtain BMP.Patient advised to monitor his weight daily, and notify us for cardiology if weight and LE edema not improving despite diuretic started. Patient is still follow-up with his cage/vault supervisor at his closest convenience -RTC in 2 to 3 months with labs Total time, including reviewing extensive medical records prior to patient visit, related to ongoing management of this patient, history, physical, counseling in detail with family as outlined above,and coordination of care is 65 min Voice recognition software was used in the creation of this document. There may be unintended errors in spelling, grammar, syntax or punctuation present. Cat Art MD Staff, Department of Kidney Medicine Pager # [phone] 07/10/22 4:16 PM CC: REFERRING PROVIDER: [facility] PRIMARY CARE PHYSICIAN: Arnold Spencer MD documented in this encounterLori Ville [address]-30-2022 Instructions* Patient Instructions* Della Pineda APRN.CNS - 06/23/2022 2:53 PM EDT Check labs today Decrease or discontinue your dose of fiber for now to see if decreases number of bowel movements. Stay on lasix for one month documented in this encounterNorwalk [facility] Hospital08-30-2022 History of Present illness Narrative* Della Pineda APRN.CNS - 06/23/2022 2:40 PM EDT SUBJECTIVE: COVID-19 VACCINE(3 - Booster for Pfizer series) due on 08/04/2021 ADVANCE DIRECTIVE DISCUSSION Never done HPI Darcy Lucas is a 86 year old male. Presents [...] last here he has been seen by [facility]. His metoprolol was discontinued and he wasstarted on carvedilol 25 mg twice daily by the cage/vault supervisor. Stress test and echocardiogram was ordered. He was admitted to [facility] emergency department with a complaint of generalized [...] during his admission as well. He was dischargedhome once status was approaching baseline. Discharged May 13, 2022. He was discharged on sodium bic arb 650 mg twice daily. He was advised to follow-up with primary care and nephrology in 1 to 2 weeks. Notes pmp certified project manager ordered labs. Follow-up lab work: yesterday; not viewable in epic Will be seeing Sheri Cost Recovery Technician, not CC provider. Was taking sodium [...] chest pain, palpitations, dyspnea, peripheral edema, orthopnea, fatigueand PND. Last 14 Encounter BP Readings: Date: [...] Upset Norvasc [Amlodipine* Other: See Comments Dizziness Hwftgcb-Fkb-Uyi Red* Other: See Comments myalgia Lisinopril Cough [...] 2 Sprays in the nose once daily. [facility]^Disp: ^Rfl: cyanocobalamin (VITAMIN B-12) 1,000 mcg tab^Take 1 tablet by mouth once daily.^Disp: 30 tablet^Rfl:0 pyridoxine, vitamin B6, (VITAMIN B-6) 100 mg [...] for wheezing/shortness of breath.^Disp: 6.7 g^Rfl: 0 Rzzgj-1-QRJ-EPA-Fish Oil (FISH OIL) 1,000 mg (120 mg-180 [...] 4.00 k/uL 1.25 0.94 (L) 0.96 (L) Wharton% % 9.1 10.6 11.6 Abs Wharton <0.87 k/uL 0.56 0.55 0.68 Eosin% % [...] Level: 4 - Moderate\ documented in this encounterNorwalk Memorial Hospital08-25-2022 Miscellaneous Notes* Telephone Encounter - Sheba Kaur LPN - 06/18/2022 2:26 PM EDT Patient's notified of results and provider's instructions. Patient's verbalizes understanding. Sheba Kaur LPN * Telephone Encounter - Arnold Spencer MD - 06/18/2022 1:53 PM EDT Below noted Follow up if diarrhea not resolving with stopping the HCTZ. Sounds like has had prior to HCTZ and since COVID. * Telephone Encounter - Araceli Hassan RN - 06/18/2022 8:41 AM EDT Pts called and is notified of providers message and instructions. She voices understanding. She was told to stop the HCTZ and replace it with the Lasix. She reports they have been dealing with the diarrhea for 2 months. They have tried Imodium. started Psyllium Husk and Probiotic once Pt was released from the hospital after Covid. Araceli Hassan RN * Telephone Encounter - Arnold Spencer MD - 06/17/2022 7:53 PM EDT HCTZ was given by virtualist for edema. Reviewed prior RXs--he was given Lasix (furosemide before). The following approved medication requests have been transmitted electronically. Requested Prescriptions Signed Prescriptions Disp Refills furosemide (LASIX) 20 mg tablet 7 tablet 0 Sig: Take 1 tablet by mouth once daily for 7 days. Authorizing Provider: ARNOLD SPENCER MD If diarrhea not improving, can try Imodium * Telephone Encounter - Per Peguero RN - 06/17/2022 9:41 AM EDT reports patient started taking hctz yesterday, and [...] hctz? Please advise . documented in this encounterNorwalk Memorial Hospital08-22-2022 History of Present illness Narrative* Della Pineda APRN.CNS - 06/15/2022 4:20 PM EDT done * Jarvis Mcgee RN - 06/15/2022 2:45 PM EDT PRIMARY CARE COORDINATION QUICK NOTE Provider Action/FYI Routed updates to Dr. Spencer Patient identified by name and date . Jacquelyn Conley RN June 15, 2022 2:45 PM * Jarvis Mcgee RN - 06/15/2022 1:36 PM EDT INSIGHT CDM TELEPHONIC OUTREACH Provider Action/FYI:Paged and Routed to Virtual Provider Carine Faria MD Spk with [facility] and Pt, Pt is more Sob, has [...] and patient's preferred method of contact (telephone, Rollerwall, Intentiva), your name, your contact number. Informed patient [...] 15, 2022 1:36 PM documented in this encounterNorwalk Memorial Hospital08-22-2022 History of Present illness Narrative* Carine Faria MD - 06/15/2022 2:15 PM EDT Virtualist Distance Health Note (Community monitoring/CC HC/H@[facility] escalations) Adult seen for Monitoring Track: Chronic Disease Management Contacted by phone, Rollerwall, [place] FFTo, Adriom, Viji, other: phone History of present illness: 86 yo man reports that he is having trouble breathing which is relieved by pulling on one nostril xweeks. Supposed to see ENT in 2 days. [...] in as Primary Virtualist, Secondary Virtualist, or [facility] Telehealth provider: Primary SIGNATURE: Carine Faria MD PATIENT NAME: Darcy Lucas DATE: June 15, 2022 documented in this encounterNorwalk Memorial Hospital08-12-2022 History of Present illness Narrative* Arnold Spencer MD - 06/05/2022 2:33 PM EDT This note was created using [email or web address]. Subjective Darcy Lucas is a 86 year old male. Patient presents with: F/U 6 months SUBJECTIVE: Darcy Lucas is a 86 year old year old [...] chronic, without mention of hemorrhage or perforation 1985 Gout 2011 High blood pressure High cholesterol [...] in the nose once daily. [facility] cyanocobalamin (VITAMIN B-12) 1,000 mcg tab Take 1 tablet by mouth once daily. Tratx-8-IVW-EPA-Fish Oil (FISH OIL) 1,000 mg (120 mg-180 [...] Height as of 11/10/21: 172.7 cm (5' 8). Weight as of this encounter: 72.1 kg [...] re-evaluation as needed. Also, follow up with cage/vault supervisor if ongoing issues with leg swelling, [...] sleep. Arnold Spencer MD documented in this encounterNorwalk Memorial Hospital08-05-2022 History of Present illness Narrative* Jarvis Mcgee RN - 05/29/2022 12:18 PM EDT INSIGHT CDM TELEPHONIC OUTREACH Provider Action/FYI: Call to Pt left a message to verify CHF/ CKD or other symptoms or needs. Contact made with patient: No - Left message Hello my name is Jacquelyn Conley RN your Public Health Dietitian from the [facility] I am callingtoday for your bi-weekly check in. I am sorry I missed your call. I will reach out to you again tomorrow. (if the third call I will reach out to you again next week) Enter next patient outreach date for the following using the Track Pt Outreach. End outreach. Jacquelyn Conley RN May 29, 2022 1:21 PM documented in this encounterNorwalk Memorial Hospital08-02-2022 History of Present illness Narrative* Della Pineda APRN.CNS - 05/26/2022 10:00 AM EDT Transitional Care Management Progress Note The patients TCM visit was performed within the 14 days of discharge. Patient's Date of discharge: May 13 Date of initial coordinator contact after discharge: May 15 Discharge diagnosis: Acute COVID 19, acute kidney injury Medication review completed yes 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 Provider Documentation: In follow-up of hospitalization, Darcy Lucas is a 86 year old male with the chief complaint of COVID-19 virus infection and MARCOS. I have reviewed the patient s last hospital course including diagnostic testing performed during this hospitalization, their discharge medications, and my assessment and plan with the patient and anyfamily members present at today s visit. HPI: He was admitted to [facility] emergency department with a complaint of generalized [...] during his admission as well. He was dischargedhome once status was approaching baseline. Discharged May 13, 2022. He was discharged on sodium bic arb 650 mg twice daily. He was advised to follow-up with primary care and nephrology in 1 to 2 weeks. Notes pmp certified project manager ordered labs. Follow-up lab work: yesterday; not viewable in epic Will be seeing Sheri Cost Recovery Technician, not CC provider. Was taking sodium [...] appearing, alert, in no acute distress and well- hydrated, well nourished, motor and sensory appear to [...] in addition to current cough remedies to seeif this helps 2. MARCOS (acute kidney injury) (HCC) - ICD9: 584.9, ICD10: N17.9 - BASIC METABOLIC PNL 3. Hypokalemia - ICD9: 276.8, ICD10: E87.6 Labs ordered through pmp certified project manager today will be having a phone visit with tomorrow for follow-up. [facility] Della Pineda APRN.CNS May 26, 2022 8:30 AM documented in this encounterNorwalk Memorial Hospital07-22-2022 History of Present illness Narrative* Della Pineda APRN.CNS - 05/15/2022 3:05 PM EDT noted * Sheba Kaur LPN - 05/15/2022 2:28 PM EDT TRANSITION CARE MANAGEMENT (TCM) INITIAL CONTACT Lab Rn Outreach Provider Action/FYI: TCM Initial contact with patient post discharge, spoke to spouse. Patient identified by name and . TRANSITION CARE MANAGEMENT INITIAL OUTREACH DOCUMENTATION: Date of Outreach: 05/15/2022 Outreach Attempt 1: Contact Made Date of Discharge 05/13/2022 Some recent data might be hidden SUMMARY: -Pt discharged from [facility] on 05/13/22. -Admitted for: acute kidney injury, acute COVID Do you have a hospital follow up appointment with your PCP? Appointment on 05/26/22 with Della Pineda PHARMACEUTICAL SCIENTIST. Yes. Remind patient of appointment date, time, [...] follow up with nephrology documented in this encounterNorwalk Memorial Hospital07-22-2022 Miscellaneous Notes* Telephone Encounter - Sheba Kaur LPN - 05/15/2022 2:27 PM EDT Info relayed to pts spouse. * Telephone Encounter - Arnold Spencer MD - 05/15/2022 12:28 PM EDT Would recommend that patient be seen in the office as scheduled since if he is still really weak bythen, may need labs done plus evaluated to see if needs anything to treat persistent hypoxia. Wouldcheck pulse ox with activity--if drops below 88%, [...] below 88%, consider being seen sooner than 8/1 to check oxygen levels and orderhome oxygen if indicated. * Telephone Encounter - Araceli Hassan RN - 05/15/2022 10:21 AM EDT Pts called in and reports Pt was just discharged from the hospital on 05/13/22 for Covid. Pt was scheduled with Della Pineda 05/26/22 at 1000 am. She wanted to wait longer for Pt to become stronger. She states when he came home he was very weak. was asked if she needed PT/OT HH, and she saidno she is watching him like a hawk and he is using his walker. Last night she said she took his pulse ox and it was 86% before he went to bed. I had her go check it before getting off the phone pulseox was 94% and HR 85. Please give parameters for O2 level and when to bring back to the hospital. documented in this encounterNorwalk Memorial Hospital07-19-2022 History of Present illness Narrative* Jarvis Mcgee RN - 05/12/2022 8:14 AM EDT INSIGHT CDM TELEPHONIC OUTREACH Provider Action/FYI: Updates routed to Dr. Spencer [facility] 05/07/22 Diarrhea, MARCOS ( C-Diff) treated [...] to speak with a social work steam meter reader to help give you support for any [...] work with you to ensure that we arekeeping your medical condition(s) well-controlled and to keep you healthy and out of the doctor's office or hospital. It s also not too late for me to sign you up for automated weekly questionnaires through [employer]. This is an easy way for us [...] the week as today in the Track PtOutreach and End outreach. Jacquelyn Conley RN May 12, 2022 8:14 AM documented in this encounterNorwalk Memorial Hospital07-15-2022 Miscellaneous Notes* Telephone Encounter - Della Pineda APRN.CNS - 05/08/2022 3:51 PM EDT noted * Telephone Encounter - Mary Hogan RN - 05/08/2022 8:26 AM EDT Patient's calls and states that she took patient into ER last night. Patient currently is in the hospital with Covid. not sure if he is coming home today or not. Patient was dehydrated. Mary Hogan RN * Telephone Encounter - Malina Salas LPN - 05/07/2022 6:34 PM EDT No answer. Left message for patient to call office and ask to speak to a nurse regarding concerns. * Telephone Encounter - Della Pineda APRN.CNS - 05/07/2022 5:01 PM EDT If eating and drinking normally and getting enough sleep would recommend a visit either with his cage/vault supervisor or us for recheck. * Telephone Encounter - Araceli Hassan RN - 05/07/2022 2:51 PM EDT Pts called in and reports had a bad headache yesterday. This morning he didn't want toget up. She woke him up around 9 [...] building for a while now. PCP and Rn Cvor have been trying to change medications around to see if that would help. Rn Cvor took him off of Metoprolol and Losartan (04/01), and put him on Entresto 49-51 twice a day. Med list has been updated. is worried about and called pharmacy and they said they didn't see anything on his med list that should be causing him to be so tired, and told her to call PCP. Please call and advise. documented in this encounterNorwalk Memorial Hospital07-14-2022 Miscellaneous Notes* Telephone Encounter - Ericka Fong - 05/07/2022 10:42 AM EDT His carotid ultrasound looks good. No significant change. If he is doing well, would recommend repeating ultrasound in 6 months Patient called and informed Encounter closed * Telephone Encounter - ELLEN Jo - 05/05/2022 10:39 AM EDT Joseph had testing done today and would like to be called on his home phone, with results. documented in this encounterNorwalk Memorial Hospital06-17-2022 History of Present illness Narrative* Jarvis Mcgee RN - 04/10/2022 10:39 AM EDT INSIGHT CDM TELEPHONIC OUTREACH Provider Action/FYI: Routed to Dr. Spencer- Medication updates [facility]erson reported on 03/30/22 Dr. Harvey Cardiology started [...] to speak with a social work steam meter reader to help give you support for any [...] work with you to ensure that we arekeeping your medical condition(s) well-controlled and to keep you healthy and out of the doctor's office or hospital. It s also not too late for me to sign you up for automated weekly questionnaires through [employer]. This is an easy way for us [...] the week as today in the Track PtOutreach and End outreach. Jacquelyn Conley RN April 10, 2022 10:39 AM documented in this encounterNorwalk Memorial Hospital06-02-2022 History of Present illness Narrative* Jarvis Mcgee RN - 03/26/2022 4:19 PM EDT INSIGHT CDM TELEPHONIC OUTREACH Provider Action/FYI: Routed updates to Dr. Spencer and Della Pineda Spk with [facility] she noted Joseph has mild intermittent Sob with exertion, climbing the steps at religion, He completed 03/06/[address] Harvey Cardiology, is scheduled 03/27/22 for a stress Test and [facility]. BP 126/80, wt 150 lbs Contact made [...] to speak with a social work steam meter reader to help give you support for any [...] work with you to ensure that we arekeeping your medical condition(s) well-controlled and to keep you healthy and out of the doctor's office or hospital. It s also not too late for me to sign you up for automated weekly questionnaires through [employer]. This is an easy way for us [...] the week as today in the Track PtOutreach and End outreach. Jacquelyn Conley RN March 26, 2022 4:19 PM documented in this encounterNorwalk Memorial Hospital05-26-2022 History of Present illness Narrative* Jarvis Mcgee RN - 03/19/2022 4:47 PM EDT [facility] TELEPHONIC OUTREACH Provider Action/FYI: Call to Pt, left a message, related to CHF/ CKD symptom status and needs. Contact made with patient: No - Left message Iva my name is Jacquelyn Conley RN your Public Health Dietitian from the [facility] I am calling today for your bi-weekly check in. I am sorry I missed your call. I will reach out to you again tomorrow. (if the third call I will reach out to you again next week) Enter next patient outreach date forthe following business day using the Track Pt Outreach. End outreach. Jacquelyn Conley RN March 19, 2022 4:47 PM documented in this encounterNorwalk Memorial Hospital05-25-2022 History of Present illness Narrative* Jarvis Mcgee RN - 03/18/2022 3:18 PM EDT [facility] TELEPHONIC OUTREACH Provider Action/FYI: Call to Pt left a message to verify CHF/ CKD symptom status, and needs. Contact made with patient: No - Left message Iva my name is Jacquelyn Conley RN your Public Health Dietitian from the [facility] I am calling today for your bi-weekly check in. I am sorry I missed your call. I will reach out to you again tomorrow. (if the third call I will reach out to you again next week) Enter next patient outreach date forthe following business day using the Track Pt Outreach. End outreach. Jacquelyn Conley RN March 18, 2022 3:18 PM documented in this encounterNorwalk Memorial Hospital05-23-2022 History of Present illness Narrative* Jarvis Mcgee RN - 03/16/2022 4:18 PM EDT [facility] TELEPHONIC OUTREACH Provider Action/FYI: Call to Pt, left a message, related to CHF/ CKD symptom status and needs. Contact made with patient: No - Left message Iva my name is Jacquelyn Conley RN your Public Health Dietitian from the [facility] I am calling today for your bi-weekly check in. I am sorry I missed your call. I will reach out to you again tomorrow. (if the third call I will reach out to you again next week) Enter next patient outreach date forthe following using the Track Pt Outreach. End outreach. Jacquelyn Conley RN March 16, 2022 4:20 PM documented in this encounterNorwalk Memorial Hospital05-17-2022 History of Present illness Narrative* 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 - 03/10/2022 1:09 PM EDT SUBJECTIVE: COVID-19 VACCINE(3 - Booster for Pfizer series) due on 08/04/2021 ADVANCE DIRECTIVE DISCUSSION Never done HPI Excerpted from previous visits: Darcy Lucas is a 85 year old male. Presents [...] with history. Has been seen by Dr. Guillaume, cage/vault supervisor [facility] April 2021. At that visit [...] help too much. Did have a spine hot dog vendor reported to lasted a few days and [...] for follow-up visit having been seen at [facility] emergency department yesterday, January 05, 2022 for [...] was unable to get into see a cage/vault supervisor with [facility] locally so he made an appointment with [facility]. Since last here he has been seen by [facility]. His metoprolol was discontinued and he wasstarted on carvedilol 25 mg twice daily by the cage/vault supervisor. Stress test and echocardiogram was ordered. Without report of headache, chest pain, palpitations, dyspnea, peripheral edema, orthopnea, fatigueand PND. Last 14 Encounter BP Readings: Date: [...] Upset Norvasc [Amlodipine* Other: See Comments Dizziness Zhdcygu-Mer-Jlh Red* Other: See Comments myalgia Lisinopril Cough [...] in the nose once daily. [facility] Bzcdf-0-WMA-EPA-Fish Oil (FISH OIL) 1,000 mg (120 mg-180 [...] 4.00 k/uL 1.25 0.94 (L) 0.96 (L) Wharton% % 9.1 10.6 11.6 Abs Wharton <0.87 k/uL 0.56 0.55 0.68 Eosin% % [...] carvedilol 25 mg twice daily. Seen last Wednesday so cannot tell yet if this is made any difference for him. He will follow with [facility] now. Echocardiogram stress test has been ordered and is being completed at [facility]. 2. S/P CABG (coronary artery bypass graft) - ICD9: V45.81, ICD10: Z95.1 3. Essential hypertension - ICD9: 401.9, ICD10: I10 controlled Della Pineda APRN.CNS Medical Decision Making: Problems: Moderate: 1+ chronic illnesses with change Data: Unique test result(s) reviewed: 2 Medical Decision Making Level: 3 - Low \ documented in this encounterNorwalk Memorial Hospital05-13-2022 History of Present illness Narrative* Jarvis Mcgee RN - 03/06/2022 10:07 AM EDT [facility] TELEPHONIC OUTREACH Provider Action/FYI: Call to Pt, left a message, related to CHF/ CKD symptom status and needs. Contact made with patient: No - Left message Hello my name is Jacquelyn Conley RN your Public Health Dietitian from the [facility] I am calling today for your bi-weekly check in. I am sorry I missed your call. I will reach out to you again tomorrow. (if the third call I will reach out to you again next week) Enter next patient outreach date forthe following business day using the Track Pt Outreach. End outreach. Jacquelyn Conley RN March 06, 2022 10:09 AM * Jarvis Mcgee RN - 03/05/2022 9:36 AM EDT [facility] TELEPHONIC OUTREACH Provider Action/FYI: Call to [...] 05, 2022 9:36 AM documented in this encounterNorwalk Memorial Hospital04-21-2022 Miscellaneous Notes* Telephone Encounter - Sheba Kaur LPN - 02/12/2022 11:58 AM EDT Last seen PHARMACEUTICAL SCIENTIST 01/13/22 Next appt 03/10/22 * Telephone Encounter - Tish Duran - 02/12/2022 10:24 AM EDT Patient has been identified by name and date of : Yes Pending Prescriptions Disp Refills LOSARTAN 50 MG TABLET 90 tablet 3 Sig: Take 1 tablet by mouth once daily. ANASTASIYA: No RX INSTRUCTIONS: Patient aware RX will be sent to pharmacy. No need to notify patient. Tish Duran documented in this encounterNorwalk Memorial [facility] History of Present illness Narrative* Jarvis Mcgee RN - 02/03/2022 10:43 AM EDT INSIGHT CDM TELEPHONIC OUTREACH Provider Action/FYI: Spk [...] to speak with a social work steam meter reader to help give you support for any [...] work with you to ensure that we arekeeping your medical condition(s) well-controlled and to keep you healthy and out of the doctor's office or hospital. It s also not too late for me to sign you up for automated weekly questionnaires through [employer]. This is an easy way for us [...] the week as today in the Track PtOutreach and End outreach. Jacquelyn Conley RN February 03, 2022 10:43 AM documented [facility] History of Present illness Narrative* Shirin Lima, RT(R) - 11/08/2021 12:00 PM EST Radiology Service Progress Note PATIENT NAME: Darcy Lucas DATE OF SERVICE: November 08, 2021 TIME: 12:11 PM PATIENT IDENTITY VERIFICATION COMPLETED USING TWO (2) IDENTIFIERS: Name and Date of confirmedby patient verbally. FALL SCREENING: Has the patient had 2 falls in the last year or 1 fall with injury or currently using an Ambulatory Assistive Device (Walker, Cane, Wheelchair, Crutches, etc.)? Yes, Patient High Riskfor Falls What interventions were put in place to prevent falls during this visit? Instructed Patient to Callfor Help if Needed, Offered Assistance with Transfers/Clothing, Instructed Patient to Remain Seated(Not on Exam Table) Until Exam, Increased Observations by Caregivers and Patient Refused Interventio ns/Assistance PATIENT GENDER DATA: Male PATIENT RELEVANT IMPLANT DATA REVIEWED: Not Applicable RADIOLOGY DEPARTMENT: General X-ray: Exam(s) Completed: Lower Extremity X- Ray(s): Ankle, Right and Wt. Bearing PERIPHERAL IV DATA: Not applicable SIGNED BY: RT Haylee(R) November 08, 2021 12:11 PM documented in [facility] History of Past illness Narrative* [...] of this encounter (statuses as of 02/09/2023) [facility] Narrative* [...] of this encounter (statuses as of 03/01/2023) [facility] Narrative* [...] of this encounter (statuses as of 03/05/2023) [facility] Narrative* [...] of this encounter (statuses as of 04/02/2023) [facility] Narrative* [...] of this encounter (statuses as of 05/06/2023) [facility] Narrative* [...] of this encounter (statuses as of 05/16/2023) [facility] Narrative* [...] of this encounter (statuses as of 06/05/2023) [facility] Narrative* [...] of this encounter (statuses as of 06/22/2023) [facility] Narrative* [...] of this encounter (statuses as of 07/17/2023) [facility] Narrative* [...] of this encounter (statuses as of 08/10/2023) [facility] Narrative* [...] of this encounter (statuses as of 08/10/2023) [facility] of Present illness Narrative* Bridgette Polanco (Tech)Melisa - 12/20/2020 10:40 AM EST Radiology Service Progress Note PATIENT NAME: Darcy Lucas DATE OF SERVICE: December 20, 2020 TIME: 10:34 AM PATIENT IDENTITY VERIFICATION COMPLETED USING TWO (2) IDENTIFIERS: Name and Date of confirmedby patient verbally. FALL SCREENING: Has the patient had 2 falls in the last year or 1 fall with injury or currently using an Ambulatory Assistive Device (Walker, Cane, Wheelchair, Crutches, etc.)? No PATIENT GENDER DATA: Male PATIENT RELEVANT IMPLANT DATA REVIEWED: Not Applicable RADIOLOGY DEPARTMENT: General X-ray: Exam(s) Completed: Chest X-Ray PERIPHERAL IV DATA: Not applicable SIGNED BY: Melisa Nava December 20, 2020 10:34 AM documented in this encounterNorwalk [facility] Hospital10-13-2020 History of Present illness Narrative* Minh TaylorRt)Melisa - 08/06/2020 3:20 PM EDT Radiology Service Progress Note PATIENT NAME: Darcy Lucas DATE OF SERVICE: August 06, 2020 TIME: 3:19 PM PATIENT IDENTITY VERIFICATION COMPLETED USING TWO (2) IDENTIFIERS: Name and Date of confirmedby patient verbally. FALL SCREENING: Has the patient had 2 falls in the last year or 1 fall with injury or currently using an Ambulatory Assistive Device (Walker, Cane, Wheelchair, Crutches, etc.)? Yes, Patient High Riskfor Falls What interventions were put in place to prevent falls during this visit? Increased Observations by Caregivers PATIENT GENDER DATA: Male PATIENT RELEVANT IMPLANT DATA REVIEWED: Not Applicable RADIOLOGY DEPARTMENT: General X-ray: Exam(s) Completed: Lower Extremity X- Ray(s): Knee, AP / Lat / Tunne / Merchant Right and Wt. Bearing: PERIPHERAL IV DATA: Not applicable SIGNED BY: RT Pauline August 06, 2020 3:19 PM documented in this encounterNorwalk [facility]08-[facility] History of Past illness Narrative* [...] of this encounter (statuses as of 02/03/2022) [facility] Narrative* [...] of this encounter (statuses as of 02/12/2022) [facility] Narrative* [...] of this encounter (statuses as of 03/06/2022) [facility] Narrative* [...] of this encounter (statuses as of 03/10/2022) [facility] Narrative* [...] of this encounter (statuses as of 03/13/2022) [facility] Narrative* [...] of this encounter (statuses as of 03/13/2022) [facility] Narrative* [...] of this encounter (statuses as of 03/18/2022) [facility] Narrative* [...] of this encounter (statuses as of 03/19/2022) [facility] Narrative* [...] of this encounter (statuses as of 03/19/2022) [facility] Narrative* [...] of this encounter (statuses as of 03/26/2022) [facility] Narrative* [...] of this encounter (statuses as of 04/10/2022) [facility] Narrative* [...] of this encounter (statuses as of 05/07/2022) [facility] Narrative* [...] of this encounter (statuses as of 05/08/2022) [facility] Narrative* [...] of this encounter (statuses as of 05/12/2022) [facility] Narrative* [...] of this encounter (statuses as of 05/15/2022) [facility] Narrative* [...] of this encounter (statuses as of 05/15/2022) [facility] Narrative* [...] of this encounter (statuses as of 05/26/2022) [facility] Narrative* [...] of this encounter (statuses as of 05/29/2022) [facility] Narrative* [...] of this encounter (statuses as of 06/15/2022) [facility] Narrative* [...] of this encounter (statuses as of 06/15/2022) [facility] Narrative* [...] of this encounter (statuses as of 06/18/2022) [facility] Narrative* [...] of this encounter (statuses as of 06/23/2022) [facility] Narrative* [...] of this encounter (statuses as of 07/11/2022) [facility] Narrative* [...] of this encounter (statuses as of 07/16/2022) [facility] Narrative* [...] of this encounter (statuses as of 07/17/2022) [facility] Narrative* [...] of this encounter (statuses as of 07/21/2022) [facility] Narrative* [...] of this encounter (statuses as of 07/22/2022) [facility] Narrative* [...] of this encounter (statuses as of 07/28/2022) [facility] Narrative* [...] of this encounter (statuses as of 2022) [facility] of [facility] Narrative* [...] of this encounter (statuses as of 07/31/2022) [facility] Narrative* [...] of this encounter (statuses as of 08/03/2022) [facility] Narrative* [...] of this encounter (statuses as of 08/04/2022) [facility] Narrative* [...] of this encounter (statuses as of 08/07/2022) [facility] Narrative* [...] of this encounter (statuses as of 08/10/2022) [facility] Narrative* [...] of this encounter (statuses as of 08/11/2022) [facility] Narrative* [...] of this encounter (statuses as of 08/15/2022) [facility] Narrative* [...] of this encounter (statuses as of 08/19/2022) [facility] Narrative* [...] of this encounter (statuses as of 08/28/2022) [facility] Narrative* [...] of this encounter (statuses as of 08/28/2022) [facility] Narrative* [...] of this encounter (statuses as of 09/30/2022) [facility] Narrative* [...] of this encounter (statuses as of 10/09/2022) [facility] Narrative* [...] of this encounter (statuses as of 10/16/2022) [facility] Narrative* [...] of this encounter (statuses as of 11/04/2022) [facility] Narrative* [...] of this encounter (statuses as of 11/05/2022) [facility] Narrative* [...] of this encounter (statuses as of 11/20/2022) [facility] Narrative* [...] of this encounter (statuses as of 11/20/2022) [facility] Narrative* [...] of this encounter (statuses as of 11/24/2022) [facility] Narrative* [...] of this encounter (statuses as of 12/04/2022) [facility] Narrative* [...] of this encounter (statuses as of 12/05/2022) [facility] Narrative* [...] of this encounter (statuses as of 12/08/2022) [facility] Narrative* [...] of this encounter (statuses as of 01/07/2023) [facility] Narrative* [...] of this encounter (statuses as of 01/08/2023) [facility] Author Jose Soto [facility] November 30, 2023 5:36pm Note Date/Time November 30, 2023 5 :36pm [facility] Medical Records Department [address] [place] [address] Consultation - Cardiology 11/30/23 1722 MR#: [id number] Acct: [id number] Name: DARCY LUCAS Rep #:[id number] : 1935 88 From: Jose Soto MD PCP: Dr. Cheli Grace MD Status:ADM IN Location: [place] [address]- [id number] Assessment & Plan Assessment/Plan (1) Acute on chronic HFrEF (heart failure with reduced ejection fraction): PLAN: Patient appears to be well compensated at the current time. The patient is to be continued on his Entresto spironolactone Lasix and carvedilol. The patient he is on carvedilol 25 mg twice daily Lasix 40 mg daily he had been on torsemide 20 mg daily at home. Either 1 of these are adequate for him to take. He should continue on the Entresto at his current dose twice daily and spironolactone 12.5 mg daily. The patient has a problem getting out in the cold weather and for that reason wewould see him in the office only if he has an issue arising otherwise he will follow- up with his January appointment with Dr. Harvey. He and his were instructed to call the office should they have any questions or feel that he needs to be seen prior to January. (2) Sick sinus syndrome: PLAN: The patient's pacemaker was last interrogated in early October 2023 and was working appropriately. It was documented that he was in atrial flutter since September 06, 2023. The patient should be continued on his Eliquis at thistime. (3) Brain bleed: PLAN: The patient's brain bleed was in the remote past and he has tolerated Eliquis in the home environment. This should be continued at his current dose of 2.5 mg twice daily. (4) Atrial flutter: QUALIFIERS: Atrial flutter type: typical Qualified Code(s): I48.3- Typical atrial flutter PLAN: The patient's pacer interrogation in early October 2023 revealed that he had been in atrial flutter with his ventricular pacer tracking with no excessiverates in the ventricle. PLAN: Plan 1. Continue current medical therapy as outlined and is currently receiving in the hospital. 2. From a cardiovascular standpoint the patient can be discharged to home. I discussed follow-up in detail with the patient and his . HPI Consult Data Date of Consult: 11/30/23 HPI Narrative Reason for Consultation: Medication reconciliation HPI Narrative: DARCY LUCAS, is a 88 M who presents with shortness of breath and some upper chest pressure sensations. He was diuresed and thoracentesis was performed removing approximately a liter of fluid by the patient and 's report. He has felt much better since that intervention. The patient is currently taking all of his listed medications he is up ambulating without dizziness or shortness of breath or dyspnea. He denies any lower extremity edema and he is resting comfortably at 30 degrees in the bed. The patient denies any chest pain and he is anxious to go home. 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 He has a history of paroxysmal atrial flutter. 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 Pacer check October 28, 2023 showed that he had been in atrial flutter since September 06, 2023. The patient's last echo was October he had global LV systolic dysfunction ejection fraction of 20% mild atrial enlargement 1-2+ mitral regurgitation 2+ tricuspid regurgitation and pulmonary artery pressure estimated at 60. The patient does complain of recurrent diarrhea since he had COVID. He is control this with the current combination of Lomotil and Metamucil. However he says that Citrucel seem to work better for him in the past when he had issues with bowel habits. [facility] Medical History Acute electrocardiogram changes Atherosclerosis of [place] coronary artery of [place] heart without angina pectoris Brain bleed Carotid artery disease Chest pain Chronic kidney disease (CKD) Chronic kidney disease (CKD) Congestive heart failure COVID-19 GERD (gastroesophageal reflux disease) Hypoxemia Ischemic cardiomyopathy Kidney disease, chronic, stage III (GFR 30-59 ml/min) Paroxysmal atrial fibrillation Pneumonia of both lower lobes Home Medications allopurinol 100 mg tablet 100 mg PO BID Gout 11/24/18 [History Last Taken 11/27/23] atorvastatin 40 mg tablet 40 mg PO QHS Cholesterol 11/24/18 [History Last Taken 11/26/23] pyridoxine (vitamin B6) 100 mg tablet 100 mg PO DAILY supplement 11/24/18 [History Last Taken 11/26/23] albuterol sulfate 90 mcg/actuation aerosol inhaler 2 puff inhalation Q4H PRN shortness of breath or wheezing #8.5 grams 12/25/20 [Rx Last Taken Unknown] ascorbate calcium (vitamin C) 500 mg tablet 500 mg PO DAILY supplement 12/25/20 [History Last Taken 11/17/23] mecobalamin (vitamin B12) 1,000 mcg disintegrating tablet,sublingual 1,000 mcg sublingual DAILY supplement 12/25/20 [History Last Taken 11/26/23] cholecalciferol (vitamin D3) 50 mcg (2,000 unit) tablet 50 mcg PO DAILY bone health #1 TAB 03/09/22 [Rx Last Taken 11/17/23] coenzyme Q10 100 mg tablet 100 mg PO DAILY general 09/24/22 [History Last Taken 11/16/23] torsemide 20 mg tablet 20 mg PO MOWEFR edema 11/19/22 [History Last Taken 11/27/23] potassium chloride 20 mEq tablet,extended release 20 meq PO MOWEFR Hypokalemia 06/30/23 [History Last Taken 11/27/23] nitroglycerin 0.4 mg sublingual tablet 0.4 mg sublingual Q5M PRN Cardiac/Chest Pain #30 tabs 09/02/23 [Rx Last Taken Unknown] apixaban 2.5 mg tablet 2.5 mg PO BID Blood thinner #180 tabs 09/30/23 [Rx Last Taken 11/27/23] Lactobacillus acidophilus 1 cap PO SUTUTHSA PROBIOTIC 11/17/23 [History Last Taken 11/16/23] carvedilol 25 mg tablet 25 mg PO BID blood pressure 11/17/23 [History Last Taken 11/27/23] magnesium oxide 400 mg (241.3 mg magnesium) tablet 400 mg PO DAILY SUPPLEMENT 11/17/23 [History Last Taken 11/27/23] sacubitril 49 mg-valsartan 51 mg tablet (Entresto) 1 tab PO BID BLOOD PRESSURE 11/17/23 [History Last Taken 11/27/23] sodium bicarbonate 650 mg tablet 650 mg PO DAILY SUPPLEMENT 11/17/23 [History Last Taken 11/26/23] Allergy/AdvReac Type Severity Reaction Status Date / Time No Known Allergies Allergy Verified 11/17/23 08:29 Family History Father CAD (coronary artery disease) Surgical History History of brain surgery History of coronary artery bypass graft x 3 History of craniotomy History of permanent cardiac pacemaker placement Social History household members: spouse Smoking Status: Never smoker alcohol intake: never substance use type: does not use caffeine: No ROS Constitutional Constitutional: Reports systems reviewed and no addt'l complaints, except as documented Eyes Eyes: Reports systems reviewed and no addt'l complaints, except as documented ENT HEENT: Reports systems reviewed and no addt'l complaints, except as documented Cardiovascular Cardiovascular: Reports as per HPI Respiratory/Chest Respiratory/Chest: Reports as per HPI Gastrointestinal Gastrointestinal: Reports as per HPI Genitourinary Genitourinary: Reports systems reviewed and no addt'l complaints, except as documented Musculoskeletal Musculoskeletal: Reports systems reviewed and no addt'l complaints, except as documented Integumentary Integumentary: Reports systems reviewed and no addt'l complaints, except as documented Neurologic Neurologic: Reports systems reviewed and no addt'l complaints, except as documented Psychiatric Psychiatric: Reports systems reviewed and no addt'l complaints, except as documented Endocrine Endocrinology: Reports systems reviewed and no addt'l complaints, except as documented Hematologic/Lymphatic Hematologic/Lymphatic: Reports systems reviewed and no addt'l complaints, exceptas documented Allergic/Immunologic Allergic/Immunologic: Reports systems reviewed and no addt'l complaints, except as documented Physical Exam Const oriented x3 HEENT normocephalic Eyes EOMs intact bilaterally Neck supple and no carotid bruits Chest inspection of chest normal Chest: midline sternotomy incision and left pectoral incision Resp normal respiratory effort Auscultation: crackles bilateral base Cardio regular rate, regular rhythm, S1 normal heart sound, S2 normal heart sound, no rub and no gallops Jugular Venous Distention: JVD to the level of the angle of the jaw (At 30 degrees) Heart Sounds: murmur systolic II/ soft right sternal border GI normal to inspection, nondistended, normoactive bowel sounds and soft to palpation Extremity no pedal edema Skin no rashes or lesions noted Neuro Neuro Narrative: Alert and oriented x 3 Psych mental status grossly normal Risk Stratification Risk Stratification Applicable: No Charges/Coding Visit Charges Inpatient E&M: 26491 Init Hosp L3 Objective Data Vital Signs: Vital Signs Temp Pulse Resp BP Pulse Ox O2 Del Method O2 Flow Rate 97.6 F L 60 16 126/66 H 95 Room Air 2 11/30/23 15:11/30/23 15:11/30/23 15:11/30/23 15:11/30/23 15:11/30/23 15:11/30/23 07:41 Oxygen Flow Rate (L/min) 2 Oxygen Delivery Method Room Air Weight: 142 lb 13.753 oz Body Mass Index (BMI) 20.5 Intake & Output: Intake and Output for Last 24 Hours 11/28/23 11/29/23 11/30/23 23:59 23:59 23:59 Intake Total 830 / 830 320 / 320 330 / 330 Output Total 2800 / 2800 2760 / 2760 1200 / 1200 Balance -1970 / -1970 -2440 / -2440 -870 / -870 Lab / Micro Data Attestation: I reviewed the patient's lab results. 11/30/23 04:43 11/30/23 04:43 Labs: Laboratory Results - last 24 hr 11/30/23 04:43: WBC 4.6, RBC 2.55 L, Hgb 8.4 L, Hct 26.7 L, MCV 104.7 H, MCH 32.9 H, MCHC 31.5 L, RDW Std Deviation 65.1 H, RDW Coeff of Vanesa 17.2 H, Plt Count 130 L, MPV 10.3, Differential Comment SCANNED, Sodium 144, Potassium 3.2 L, Chloride 113 H, Carbon Dioxide 28.0, Anion Gap 3 L, BUN 44 H, Creatinine 2.16 H, Estim Creat Clear Calc 22.76, Est GFR (MDRD) Af Amer 37 L, Est GFR (MDRD) Non-Af 31 L, BUN/Creatinine Ratio 20.4 H, Glucose 106, Calcium 9.0 Micro: Microbiology 11/29/23 13:26 Fluid - Pleural (Lung) Gram Stain - Final 11/29/23 13:26 Fluid - Pleural (Lung) Body Fluid Culture - Preliminary No growth-Final to follow Cardiology Labs/Tests 11/30/23 04:43: WBC 4.6, RBC 2.55 L, Hgb 8.4 L, Hct 26.7 L, MCV 104.7 H, MCH 32.9 H, MCHC 31.5 L, Plt Count 130 L, MPV 10.3, Sodium 144, Potassium 3.2 L, Chloride 113 H, Carbon Dioxide 28.0, Anion Gap 3 L, BUN 44 H, Creatinine 2.16 H,Est GFR (MDRD) Af Amer 37 L, Est GFR (MDRD) Non-Af 31 L, BUN/Creatinine Ratio 20.4 H, Glucose 106, Calcium 9.0 Rhythm: EKG: ECHO: Stress Test: Cardiac Cath: PCI: CT Surgery: Holter monitor: EPS: PPM: CXR: Chest CT Scan: 11/30/23 [id number] <Electronically signed by Jose Soto MD> Cosigner Signature (if applicable): CC: Dr. Cheli Grace MD; Dr. Gómez Nowak DO; Dr. Jose Soto MD; Dr. Dav Renteria MD; Dr. 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* Diagnosis Onset Date Resolution Status [id number] acute History of permanent cardiac pacemaker placement acute Ischemic cardiomyopathy acut e Paroxysmal atrial fibrillation [facility] Work Phone: Evaluation note* Diagnosis Bilateral carotid artery stenosis- Primary Occlusion and stenosis of carotid artery without mention of cerebral infarction [facility] Diagnosis Onset Date Resolution Status [id number] acute History of permanent cardiac pacemaker placement acute Ischemic cardiomyopathy acut e Paroxysmal atrial fibrillation acute MARCOS (acute kidney injury) ac [place] Diarrhea acute [facility] Work Phone: Evaluation note* Diagnosis Onset Date Resolution Status [id number] acute History of permanent cardiac pacemaker placement acute Ischemic cardiomyopathy acut e Paroxysmal atrial fibrillation acute MARCOS (acute kidney injury) ac [place] COVID-19 acute Diarrhea acute Hypokalemia acute [facility] Work Phone: Evaluation note* Diagnosis COVID-19- Primary MARCOS (acute kidney injury) (HCC) Acute kidney failure, unspecified Hypokalemia Hypopotassemia [facility]* Diagnosis Peripheral edema- Primary Edema Cough, unspecified type 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* Diagnosis Onset Date Resolution Status MARCOS (acute kidney injury) re solved Diarrhea resolved Hypokalemia resolved History of permanent cardiac pacemaker placement acute Ischemic cardiomyopathy acut e Paroxysmal atrial fibrillation acute Sick sinus syndrome acute [facility] Work Phone: Evaluation note* Diagnosis Onset Date Resolution Status MARCOS (acute kidney injury) re solved Diarrhea resolved Hypokalemia resolved History of permanent cardiac pacemaker placement acute Ischemic cardiomyopathy acut e Paroxysmal atrial fibrillation acute Sick sinus syndrome acute Acute kidney injury acute [id number] acute History of permanent cardiac pacemaker placement acute Ischemic cardiomyopathy acut e Paroxysmal atrial fibrillation acute Acute on chronic HFrEF (hear t failure with reduced ejection fraction) chronic Chronic kidney disease (CKD) chronic [facility] Work Phone: Evaluation note* Diagnosis MARCOS (acute kidney injury) (HCC)- Primary Acute kidney failure, unspecified [facility] this [facility]* Diagnosis Acute on chronic systolic [...] kidney failure, unspecified [facility] Diagnosis 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 [facility] Diagnosis Elevated glucose- Primary Other abnormal glucose documented in this 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* Diagnosis Chronic cough- Primary Cough LPRD (laryngopharyngeal reflux disease) Other diseases of larynx Leg swelling Swelling of limb Collagenous colitis Other and unspecified noninfectious gastroenteritis and colitis Personal history of COVID-19 Essential hypertension Unspecified essential hypertension 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 documented in this encounter 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* Diagnosis Onset Date Resolution Status MARCOS (acute kidney injury) re solved Diarrhea resolved Hypokalemia resolved Ischemic cardiomyopathy acut e Sick sinus syndrome acute Ischemic cardiomyopathy acut e Acute kidney injury resolved Acute on chronic HFrEF (hear t failure with reduced ejection fraction) resolved Ischemic cardiomyopathy acut e [facility] Work Phone: Evaluation note* Diagnosis 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- Primary Benign prostatic hyperplasia with urinary retention documented in this [facility]* Diagnosis Onset Date Resolution Status MARCOS (acute kidney injury) re solved Diarrhea resolved Hypokalemia resolved Ischemic cardiomyopathy acut e Sick sinus syndrome acute Ischemic cardiomyopathy acut e Acute kidney injury resolved Acute on chronic HFrEF (hear t failure with reduced ejection fraction) resolved Ischemic cardiomyopathy acut e History of COVID-19 acute [facility] Work Phone: Evaluation note* Diagnosis Stage 3b chronic kidney disease (HCC)- Primary Essential hypertension Unspecified essential hypertension 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 Hydronephrosis, unspecified hydronephrosis type Edema, unspecified type Diarrhea, unspecified type documented in this [facility]* Diagnosis 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 MARCOS (acute kidney injury) (HCC) Acute kidney failure, unspecified documented in this [facility]* Diagnosis Onset Date Resolution Status Ischemic cardiomyopathy acut e History of COVID-19 acute Ischemic cardiomyopathy acut e Sick sinus syndrome acute Hyperlipidemia acute Ischemic cardiomyopathy acut e Sick sinus syndrome acute Acid reflux acute Anemia acute Diarrhea acute [facility] Work Phone: Evaluation note* Diagnosis MARCOS (acute kidney injury) (HCC)- Primary Acute kidney failure, unspecified documented in this encounter [facility]* Diagnosis Hyperuricemia Other abnormal blood chemistry documented in this [facility]* Diagnosis Onset Date Resolution Status Hyperlipidemia acute Ischemic cardiomyopathy acut e Sick sinus syndrome acute Anemia acute Acid reflux chronic Diarrhea chronic Acid reflux chronic Diarrhea chronic Ischemic cardiomyopathy acut e Sick sinus syndrome acute [facility] Work Phone: Evaluation note* Diagnosis Essential hypertension- Primary Unspecified essential hypertension Hyperuricemia Other abnormal blood chemistry Mixed hyperlipidemia Stage 3 chronic kidney disease, unspecified whether stage 3a or 3b CKD (HCC) documented in this [facility]* Diagnosis Acidosis- Primary documented in this [facility]* Diagnosis Onset Date Resolution Status Ischemic cardiomyopathy acut e Paroxysmal atrial fibrillation acute Sick sinus syndrome acute [id number] acute Hyperlipidemia acute Ischemic cardiomyopathy acut e Paroxysmal atrial fibrillation acute Sick sinus syndrome acute [facility] Work Phone: Evaluation note* Diagnosis Onset Date Resolution Status [id number] acute Hyperlipidemia acute Ischemic cardiomyopathy acut e Paroxysmal atrial fibrillation acute Sick sinus syndrome acute [facility] Work Phone: Evaluation note* Diagnosis Onset Date Resolution Status [id number] acute Hyperlipidemia acute Ischemic cardiomyopathy acut e Paroxysmal atrial fibrillation acute Sick sinus syndrome acute [id number] acute Chest pain acute Hypoxemia acute Ischemic cardiomyopathy acut e Pneumonia of both lower lobes acute Kidney disease, chronic, stage III (GFR 30-59 ml/min) [facility] Work Phone: Evaluation note* Diagnosis Onset Date Resolution Status Hyperlipidemia acute Paroxysmal atrial fibrillation acute Sick sinus syndrome acute [facility] Work Phone: Evaluation note* Diagnosis Onset Date Resolution Status Hyperlipidemia acute Paroxysmal atrial fibrillation acute Sick sinus syndrome acute COVID acute Generalized weakness acute Lactic acidosis acute Chronic kidney disease (CKD) chronic [facility] Work Phone: Evaluation note* Diagnosis Onset Date Resolution Status COVID acute Generalized weakness resolve d Lactic acidosis resolved [facility] Work Phone: Evaluation note* Diagnosis Onset Date Resolution Status COVID acute Generalized weakness resolve d Lactic acidosis resolved Acute on chronic HFrEF (hear t failure with reduced ejection fraction) acute Pleural effusion, right acut e [facility] Work Phone: Evaluation note* Diagnosis Onset Date Resolution Status COVID acute Generalized weakness resolve d Lactic acidosis resolved Acute on chronic HFrEF (hear t failure with reduced ejection fraction) acute Atrial flutter acute Brain bleed acute Pleural effusion, right acut e Sick sinus syndrome acute [facility] Work Phone: Evaluation note* Diagnosis Onset Date Resolution Status COVID acute Generalized weakness resolve d Lactic acidosis resolved Acute on chronic HFrEF (hear t failure with reduced ejection fraction) resolved Pleural effusion, right reso lved [facility] Work Phone: Evaluation note* Diagnosis Onset Date Resolution Status Acute on chronic HFrEF (hear t failure with reduced ejection fraction) resolved Pleural effusion, right reso lved [facility] Work Phone: Evaluation note* Diagnosis Subdural hemorrhage (HCC) Subdural hemorrhage Sinoatrial node dysfunction (HCC) Sinoatrial node dysfunction 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) Chronic anticoagulation Long-term (current) use of anticoagulants Essential hypertension Unspecified essential hypertension Lumbar spinal stenosis Spinal stenosis, lumbar region, without neurogenic claudication 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) Paroxysmal atrial fibrillation (HCC) Atrial fibrillation Subacute cough Cough [facility] Diagnosis Subdural hemorrhage (HCC) Subdural hemorrhage Sinoatrial node dysfunction (HCC) Sinoatrial node dysfunction 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) Paroxysmal atrial fibrillation (HCC) Atrial fibrillation Fall in home, initial encounter Acute pain of right knee Hematoma of right knee region [facility] Diagnosis Subdural hemorrhage (HCC) Subdural hemorrhage Sinoatrial node dysfunction (HCC) Sinoatrial node dysfunction 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) Chronic anticoagulation Long-term (current) use of anticoagulants Essential hypertension Unspecified essential hypertension Lumbar spinal stenosis Spinal stenosis, lumbar region, without neurogenic claudication 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) Paroxysmal atrial fibrillation (HCC) Atrial fibrillation Acute congestive heart failure, unspecified heart failure type (HCC) Cough documented in this encounter [facility] Discharge instructions Additional Instructions Please continue all your medications as previously directed by your doctor and return to the ER should you have any [facility]: Reason for referral (narrative)* Outpatient Procedure (Routine) - Pending Review Specialty Diagnoses / Procedures Referred By Omi flores Ref[facility] Diagnoses Bilateral carotid artery stenosis Procedures US CAROTID ARTERIES OZIEL [facility] DUPLEX SCAN EXTRACRANIAL ART COMPL BI STUDY Sharmin Ramesh DO [address] [place] [address] [facility] [address] [place] [address] Referral ID Status Reason Start Date Expiration Date Visits Requested Visits Authorized [id number] Pending Review Auto-Generat ed Referral 05/07/2022 05/07/2023 1 1 [facility] for referral (narrative)* Diagnostic Procedure Only (Routine) - Pending Review Specialty Diagnoses / Procedures Referred By Contac t Referred To Contact US IMAGING Diagnoses MARCOS (acute kidney injury) (HCC) Hydronephrosis, unspecified hydronephrosis type Procedures US KIDNEY/BLADDER US RETROPERITONEAL REAL TIME W/[place] [address] [address] [place] [address] Us Imaging Referral ID Status Reason Start Date Expiration Date Visits Requested Visits Authorized [id number] Pending Review Auto-Generat ed Referral 07/10/2022 08/09/2023 1 1 [facility] for referral (narrative)* Diagnostic Procedure Only (Urgent) - Closed Specialty Diagnoses / Procedures Referred By Contac t Referred To Contact XR IMAGING Diagnoses Acute right ankle pain Procedures XR ANKLE GENERAL 3V AP/LAT/OBL RIGHT X-RAY ANKLE MINIMUM 3 VIEWS Laurent Gonzalez SOFTWARE QUALITY TESTER.FLUID JET CUTTER OPERATOR [address] [place] [address] [place] [address] Referral ID Status Reason Start Date Expiration Date V isits Requested Visits Authorized [id number] Closed Auto-Generate d Referral 11/08/2021 12/08/2022 1 1 [facility] for referral (narrative)No reason for referral [facility]: Rermwz for visit Narrative* Diagnostic Procedure Only (Urgent) - Closed Specialty Diagnoses / Procedures Referred By Contac t Referred To Contact XR IMAGING Diagnoses Acute right ankle pain Procedures XR ANKLE GENERAL 3V AP/LAT/OBL RIGHT X-RAY ANKLE MINIMUM 3 VIEWS Laurent Gonzalez, SOFTWARE QUALITY TESTER.FLUID JET CUTTER OPERATOR [address] [place] [address] [place] [address] Referral ID Status Reason Start Date Expiration Date V isits Requested Visits Authorized [id number] Closed Auto-Generate d Referral 11/08/2021 12/08/2022 1 1 [facility] Summary Purpose Family History Relationship Condition Age at Onset Recorded Date/T starla Unknown Family History?Cancer Unknown Febr2020 7:26pm Family History?Heart Disease Unknown December 02, 2020 7:26pm Relationship Condition Age at Onset Recorded Date/T starla father Coronary artery disease Unknown Relationship Condition Age at Onset Recorded Date/T starla father Coronary artery disease Unknown mother Cardiac disease Unknown Hypertension Unknown Heart failure Unknown Advance Directives Documents on File Type Date Recorded Patient Loan Specialist Expl anation Advance Directive(s) 10/21/2021 2:03 PM Advance Directive(s) 11/29/2018 12:10 PM Advance Directive Response Recorded Date/ Time Living Will No January 05, 2022 4:18pm Power of Senior Compliance Analyst No January 05 4:18pm Documents on File Type Date Recorded Patient Loan Specialist Expl anation Advance Directive(s) 10/21/2021 2:03 PM Advance Directive(s) 11/29/2018 12:10 PM Advance Directive Response Recorded Date/ Time Living Will No May 07, 2022 5:00pm Power of Senior Compliance Analyst No May 07 5:00pm Advance Directive Response Recorded Date/ Time Living Will Yes May 07, 2022 7:35pm Power of Senior Compliance Analyst No May 07 7:35pm Documents on File Type Date Recorded Patient Loan Specialist Expl anation Advance Directive(s) 10/21/2021 2:03 PM Documents on File Type Date Recorded Patient Loan Specialist Expl anation Advance Directive(s) 10/21/2021 2:03 PM Advance Directive Response Recorded Date/ Time Name of Medical Power of Senior Compliance Analyst herson arshjeremiah July 13, 2022 8:42am Living Will Yes July 13, 2022 8:42am Power of Senior Compliance Analyst Yes June 8:42am Advance Directive Response Recorded Date/ Time Name of Medical Power of Senior Compliance Analyst Herson Ludivina s July 13, 2022 2:04pm Living Will Yes July 13, 2022 2:04pm Power of Senior Compliance Analyst Yes June 2:04pm Advance Directive Response Recorded Date/ Time Name of Medical Power of Senior Compliance Analyst Herson Ludivina s July 13, 2022 1:04pm Name of Medical Power of Senior Compliance Analyst HERSON ARSHJEREMIAH September 05, 2022 3:21am Living Will Yes September 05, 2 022 3:21am Power of Senior Compliance Analyst Yes September 05, 2022 3:21am Advance Directive Response Recorded Date/ Time Name of Medical Power of Senior Compliance Analyst HERSON LUCAS November 12th, 2022 3:21am Living Will Yes September 05, 022 3:21am Power of Senior Compliance Analyst Yes September 05, 2022 3:21am Advance Directive Response Recorded Date/ Time Living Will Yes September 05, 2 022 4:21am Power of Senior Compliance Analyst Yes September 05, 2022 4:21am Advance Directive Response Recorded Date/ Time Name of Medical Power of Senior Compliance Analyst HERSON- September 19, 2023 7:57am Living Will Yes September 19, 023 7:57am Power of Senior Compliance Analyst Yes September 19, 2023 7:57am Advance Directive Response Recorded Date/ Time Name of Medical Power of Senior Compliance Analyst HERSON- September 19, 2023 7:57am Name of Medical Power of Senior Compliance Analyst herson veres October 18, 2023 1:23am Living Will Yes October 18 023 1:23am Power of Senior Compliance Analyst Yes October 18, 2023 1:23am Advance Directive Response Recorded Date/ Time Name of Medical Power of Senior Compliance Analyst HERSON- September 19, 2023 7:57am Name of Medical Power of Senior Compliance Analyst herson veres October 18, 2023 1:23am Name of Medical Power of Senior Compliance Analyst spouse November 17, 2023 8:50am Living Will Yes November 17 8:50am Power of Senior Compliance Analyst Yes November 17, 2023 8:50am Advance Directive Response Recorded Date/ Time Name of Medical Power of Senior Compliance Analyst HERSON- September 19, 2023 7:57am Name of Medical Power of Senior Compliance Analyst herson veres October 18, 2023 1:23am Name of Medical Power of Senior Compliance Analyst spouse November 17, 2023 8:50am Name of Medical Power of Senior Compliance Analyst November 27, 2023 1:33pm Living Will Yes November 27 1:33pm Power of Senior Compliance Analyst Yes November 27, 2023 1:33pm Advance Directive Response Recorded Date/ Time Name of Medical Power of Senior Compliance Analyst HERSON- September 19, 2023 7:57am Name of Medical Power of Senior Compliance Analyst herson veres October 18, 2023 1:23am Name of Medical Power of Senior Compliance Analyst spouse November 17, 2023 8:50am Name of Medical Power of Senior Compliance Analyst November 27, 2023 4:36pm Living Will Yes November 27 4:36pm Power of Senior Compliance Analyst Yes November 27, 2023 4:36pm Advance Directive Response Recorded Date/ Time Name of Medical Power of Senior Compliance Analyst HERSON- September 19, 2023 8:57am Name of Medical Power of Senior Compliance Analyst herson lucas October 18, 2023 2:23am Name of Medical Power of Senior Compliance Analyst spouse November 17, 2023 9:50am Name of Medical Power of Senior Compliance Analyst November 27, 2023 5:36pm Living Will Yes November 27 5:36pm Power of Senior Compliance Analyst Yes November 27, 2023 5:36pm Advance Directive Response Recorded Date/ Time Name of Medical Power of Senior Compliance Analyst spouse November 17, 2023 9:50am Name of Medical Power of Senior Compliance Analyst November 27, 2023 5:36pm Living Will Yes November 27 5:36pm Power of Senior Compliance Analyst Yes November 27, 2023 5:36pm Advance Directive Response Recorded Date/ Time Living Will Yes July 15, 2024 9:29pm Do you have a Healthcare Power of Senior Compliance Analyst? Yes July 15, 2024 9:29pm Living Will Yes November 27 5:36pm Do you have a Healthcare Power of Senior Compliance Analyst? Yes November 27, 2023 5:36pm Advance Directive Response Recorded Date/ Time Living Will Yes November 27 5:36pm Do you have a Healthcare Power of Senior Compliance Analyst? Yes November 27, 2023 5:36pm Chief Complaint and Reason for Visit Chief Complaint SOB EST CARE S/P CABG Reason for Visit [id number] History of permanent cardiac pacemaker placement Ischemic cardiomyopathy Paroxysmal atrial fibrillation Chief Complaint EST CARE S/P CABG MARCOS, COVID MARCOS, COVID Reason for Visit [id number] History of permanent cardiac pacemaker placement Ischemic cardiomyopathy Paroxysmal atrial fibrillation MARCOS (acute kidney injury) Diarrhea Chief Complaint EST CARE S/P CABG MARCOS, COVID MARCOS, COVID MARCOS, COVID MARCOS, COVID MARCOS, COVID MARCOS, COVID MARCOS, COVID MARCOS, COVID Reason for Visit [id number] History of permanent cardiac pacemaker placement Ischemic cardiomyopathy Paroxysmal atrial fibrillation MARCOS (acute kidney injury) COVID-19 Diarrhea Hypokalemia Chief Complaint S/P CABG MARCOS, COVID MARCOS, COVID MARCOS, COVID MARCOS, COVID MARCOS, COVID MARCOS, COVID MARCOS, COVID MARCOS, COVID 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 CHEST PAIN/ CHF EXA Reason for Visit MARCOS (acute kidney in jury) Diarrhea Hypokalemia History of permanent cardiac pacemaker placement Ischemic cardiomyopathy Paroxysmal atrial fibrillation Sick sinus syndrome Chief Complaint S/P CABG MARCOS, COVID MARCOS, COVID MARCOS, COVID MARCOS, COVID MARCOS, COVID MARCOS, COVID MARCOS, COVID MARCOS, COVID 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 CHEST PAIN/ CHF EXA CHEST PAIN/ CHF EXA CHEST PAIN/ CHF EXA CHEST PAIN/ CHF EXA CHEST PAIN/ CHF EXA Reason for Visit MARCOS (acute kidney in jury) Diarrhea Hypokalemia History of permanent cardiac pacemaker placement Ischemic cardiomyopathy Paroxysmal atrial fibrillation Sick sinus syndrome Acute kidney injury [id number] History of permanent cardiac pacemaker placement Ischemic cardiomyopathy Paroxysmal atrial fibrillation Acute on chronic HFrEF (heart failure with reduced ejection fraction) Chronic kidney disease (CKD) Chief Complaint MARCOS, COVID MARCOS, COVID MARCOS, COVID MARCOS, COVID MARCOS, COVID MARCOS, COVID MARCOS, COVID MARCOS, COVID 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 CHEST PAIN/ CHF EXA CHEST PAIN/ CHF EXA CHEST PAIN/ CHF EXA CHEST PAIN/ CHF EXA CHEST PAIN/ CHF EXA s/p hosp ISCHEMIC CARDIOMYOPATHY SPINAL STENOSIS LUMBAR/RX HERE Reason for Visit MARCOS (acute kidney in jury) Diarrhea Hypokalemia Ischemic cardiomyopathy Sick sinus syndrome Ischemic cardiomyopathy Acute kidney injury Acute on chronic HFrEF (heart failure with reduced ejection fraction) Ischemic cardiomyopathy Chief Complaint MARCOS, COVID MARCOS, COVID MARCOS, COVID MARCOS, COVID MARCOS, COVID MARCOS, COVID MARCOS, COVID 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 CHEST PAIN/ CHF EXA CHEST PAIN/ CHF EXA CHEST PAIN/ CHF EXA CHEST PAIN/ CHF EXA CHEST PAIN/ CHF EXA s/p hosp ISCHEMIC CARDIOMYOPATHY 1 Y FU SPINAL STENOSIS LUMBAR/RX HERE chest pain Reason for Visit MARCOS (acute kidney in jury) Diarrhea Hypokalemia Ischemic cardiomyopathy Sick sinus syndrome Ischemic cardiomyopathy Acute kidney injury Acute on chronic HFrEF (heart failure with reduced ejection fraction) Ischemic cardiomyopathy History of COVID-19 Chief Complaint s/p hosp ISCHEMIC CARDIOMYOPATHY 1 Y FU chest pain remote f/u 6 M FU DIARRHEA GERD INT LABS 2 ORDERING DRS/E ORDERS SPINAL STENOSIS LUMBAR/RX HERE Reason for Visit Ischemic cardiomyopa thy History of COVID-19 Ischemic cardiomyopathy Sick sinus syndrome Hyperlipidemia Ischemic cardiomyopathy Sick sinus syndrome Acid reflux Anemia Diarrhea Chief Complaint 6 M FU DIARRHEA GERD INT LABS 2 ORDERING DRS/E ORDERS 2 WK FU 3 mos remote PPM f/u SPINAL STENOSIS LUMBAR/RX HERE Reason for Visit Hyperlipidemia Ischemic cardiomyopathy Sick sinus syndrome Anemia Acid reflux Diarrhea Acid reflux Diarrhea Ischemic cardiomyopathy Sick sinus syndrome Chief Complaint 3 mos remote PPM f/u 6 M FU E ORDER Reason for Visit Ischemic cardiomyopa thy Paroxysmal atrial fibrillation Sick sinus syndrome [id number] Hyperlipidemia Ischemic cardiomyopathy Paroxysmal atrial fibrillation Sick sinus syndrome Chief Complaint 6 M FU E ORDER Reason for Visit [id number] Hyperlipidemia Ischemic cardiomyopathy Paroxysmal atrial fibrillation Sick sinus syndrome Chief Complaint 6 M FU E ORDER BILATERAL PNEUMONIA, ACUTE EXACERBATION OF ASTHMA BILATERAL PNEUMONIA, ACUTE EXACERBATION OF ASTHMA BILATERAL PNEUMONIA, ACUTE EXACERBATION OF ASTHMA Reason for Visit [id number] Hyperlipidemia Ischemic cardiomyopathy Paroxysmal atrial fibrillation Sick sinus syndrome [id number] Chest pain Hypoxemia Ischemic cardiomyopathy Pneumonia of both lower lobes Kidney disease, chronic, stage III (GFR 30-59 ml/min) Chief Complaint 6 M FU E ORDER Pacer Check Remote BILATERAL PNEUMONIA, ACUTE EXACERBATION OF ASTHMA ROUTINE MORNING AM EKG BILATERAL PNEUMONIA, ACUTE EXACERBATION OF ASTHMA BILATERAL PNEUMONIA, ACUTE EXACERBATION OF ASTHMA BILATERAL PNEUMONIA, ACUTE EXACERBATION OF ASTHMA Reason for Visit Hyperlipidemia Paroxysmal atrial fibrillation Sick sinus syndrome Chief Complaint 6 M FU E ORDER Pacer Check Remote BILATERAL PNEUMONIA, ACUTE EXACERBATION OF ASTHMA ROUTINE MORNING AM EKG BILATERAL PNEUMONIA, ACUTE EXACERBATION OF ASTHMA BILATERAL PNEUMONIA, ACUTE EXACERBATION OF ASTHMA BILATERAL PNEUMONIA, ACUTE EXACERBATION OF ASTHMA OTHER SYMPTOMS INVOLVING CARDIOVASCULAR SYSTEM Reason for Visit Hyperlipidemia Paroxysmal atrial fibrillation Sick sinus syndrome Chief Complaint 6 M FU E ORDER Pacer Check Remote BILATERAL PNEUMONIA, ACUTE EXACERBATION OF ASTHMA ROUTINE MORNING AM EKG BILATERAL PNEUMONIA, ACUTE EXACERBATION OF ASTHMA BILATERAL PNEUMONIA, ACUTE EXACERBATION OF ASTHMA BILATERAL PNEUMONIA, ACUTE EXACERBATION OF ASTHMA OTHER SYMPTOMS INVOLVING CARDIOVASCULAR SYSTEM COVID 19 POSITIVE, MILD LACTIC ACIDOSIS & GENERALI COVID 19 POSITIVE, MILD LACTIC ACIDOSIS & GENERALI Reason for Visit Hyperlipidemia Paroxysmal atrial fibrillation Sick sinus syndrome COVID Generalized weakness Lactic acidosis Chronic kidney disease (CKD) Chief Complaint BILATERAL PNEUMONIA, ACUTE EXACERBATION OF ASTHMA ROUTINE MORNING AM EKG BILATERAL PNEUMONIA, ACUTE EXACERBATION OF ASTHMA BILATERAL PNEUMONIA, ACUTE EXACERBATION OF ASTHMA BILATERAL PNEUMONIA, ACUTE EXACERBATION OF ASTHMA OTHER SYMPTOMS INVOLVING CARDIOVASCULAR SYSTEM COVID 19 POSITIVE, MILD LACTIC ACIDOSIS & GENERALI COVID 19 POSITIVE, MILD LACTIC ACIDOSIS & GENERALI ISCHEMIC CARDIOMYOPATHY Amb Documentation Reason for Visit COVID Generalized weakness Lactic acidosis Chief Complaint BILATERAL PNEUMONIA, ACUTE EXACERBATION OF ASTHMA ROUTINE MORNING AM EKG BILATERAL PNEUMONIA, ACUTE EXACERBATION OF ASTHMA BILATERAL PNEUMONIA, ACUTE EXACERBATION OF ASTHMA BILATERAL PNEUMONIA, ACUTE EXACERBATION OF ASTHMA OTHER SYMPTOMS INVOLVING CARDIOVASCULAR SYSTEM COVID 19 POSITIVE, MILD LACTIC ACIDOSIS & GENERALI COVID 19 POSITIVE, MILD LACTIC ACIDOSIS & GENERALI ISCHEMIC CARDIOMYOPATHY Amb Documentation FLANK PAIN Reason for Visit COVID Generalized weakness Lactic acidosis Chief Complaint BILATERAL PNEUMONIA, ACUTE EXACERBATION OF ASTHMA ROUTINE MORNING AM EKG BILATERAL PNEUMONIA, ACUTE EXACERBATION OF ASTHMA BILATERAL PNEUMONIA, ACUTE EXACERBATION OF ASTHMA BILATERAL PNEUMONIA, ACUTE EXACERBATION OF ASTHMA OTHER SYMPTOMS INVOLVING CARDIOVASCULAR SYSTEM COVID 19 POSITIVE, MILD LACTIC ACIDOSIS & GENERALI COVID 19 POSITIVE, MILD LACTIC ACIDOSIS & GENERALI Pacer Check Remote ISCHEMIC CARDIOMYOPATHY Amb Documentation FLANK PAIN EORDERS CHF EXACERBATION Reason for Visit COVID Generalized weakness Lactic acidosis Chief Complaint BILATERAL PNEUMONIA, ACUTE EXACERBATION OF ASTHMA ROUTINE MORNING AM EKG BILATERAL PNEUMONIA, ACUTE EXACERBATION OF ASTHMA BILATERAL PNEUMONIA, ACUTE EXACERBATION OF ASTHMA BILATERAL PNEUMONIA, ACUTE EXACERBATION OF ASTHMA OTHER SYMPTOMS INVOLVING CARDIOVASCULAR SYSTEM COVID 19 POSITIVE, MILD LACTIC ACIDOSIS & GENERALI COVID 19 POSITIVE, MILD LACTIC ACIDOSIS & GENERALI Pacer Check Remote ISCHEMIC CARDIOMYOPATHY Amb Documentation FLANK PAIN EORDERS CHF EXACERBATION CHF EXACERBATION CHF EXACERBATION CHF EXACERBATION Reason for Visit COVID Generalized weakness Lactic acidosis Acute on chronic HFrEF (heart failure with reduced ejection fraction) Pleural effusion, right Chief Complaint BILATERAL PNEUMONIA, ACUTE EXACERBATION OF ASTHMA ROUTINE MORNING AM EKG BILATERAL PNEUMONIA, ACUTE EXACERBATION OF ASTHMA BILATERAL PNEUMONIA, ACUTE EXACERBATION OF ASTHMA BILATERAL PNEUMONIA, ACUTE EXACERBATION OF ASTHMA OTHER SYMPTOMS INVOLVING CARDIOVASCULAR SYSTEM COVID 19 POSITIVE, MILD LACTIC ACIDOSIS & GENERALI COVID 19 POSITIVE, MILD LACTIC ACIDOSIS & GENERALI Pacer Check Remote ISCHEMIC CARDIOMYOPATHY Amb Documentation FLANK PAIN EORDERS CHF EXACERBATION CHF EXACERBATION CHF EXACERBATION CHF EXACERBATION CHF EXACERBATION CHF EXACERBATION CHF EXACERBATION Reason for Visit COVID Generalized weakness Lactic acidosis Acute on chronic HFrEF (heart failure with reduced ejection fraction) Atrial flutter Brain bleed Pleural effusion, right Sick sinus syndrome Chief Complaint BILATERAL PNEUMONIA, ACUTE EXACERBATION OF ASTHMA ROUTINE MORNING AM EKG BILATERAL PNEUMONIA, ACUTE EXACERBATION OF ASTHMA BILATERAL PNEUMONIA, ACUTE EXACERBATION OF ASTHMA BILATERAL PNEUMONIA, ACUTE EXACERBATION OF ASTHMA OTHER SYMPTOMS INVOLVING CARDIOVASCULAR SYSTEM COVID 19 POSITIVE, MILD LACTIC ACIDOSIS & GENERALI COVID 19 POSITIVE, MILD LACTIC ACIDOSIS & GENERALI Pacer Check Remote ISCHEMIC CARDIOMYOPATHY Amb Documentation FLANK PAIN EORDERS CHF EXACERBATION CHF EXACERBATION CHF EXACERBATION CHF EXACERBATION CHF EXACERBATION CHF EXACERBATION CHF EXACERBATION EORDER Reason for Visit COVID Generalized weakness Lactic acidosis Acute on chronic HFrEF (heart failure with reduced ejection fraction) Pleural effusion, right Chief Complaint BILATERAL PNEUMONIA, ACUTE EXACERBATION OF ASTHMA AM EKG BILATERAL PNEUMONIA, ACUTE EXACERBATION OF ASTHMA BILATERAL PNEUMONIA, ACUTE EXACERBATION OF ASTHMA BILATERAL PNEUMONIA, ACUTE EXACERBATION OF ASTHMA OTHER SYMPTOMS INVOLVING CARDIOVASCULAR SYSTEM COVID 19 POSITIVE, MILD LACTIC ACIDOSIS & GENERALI COVID 19 POSITIVE, MILD LACTIC ACIDOSIS & GENERALI Pacer Check Remote ISCHEMIC CARDIOMYOPATHY Amb Documentation FLANK PAIN EORDERS CHF EXACERBATION CHF EXACERBATION CHF EXACERBATION CHF EXACERBATION CHF EXACERBATION CHF EXACERBATION CHF EXACERBATION EORDER EORDER FROM CHELI FRASER Reason for Visit COVID Generalized weakness Lactic acidosis Acute on chronic HFrEF (heart failure with reduced ejection fraction) Pleural effusion, right Chief Complaint Pacer Check Remote ISCHEMIC CARDIOMYOPATHY Amb Documentation FLANK PAIN EORDERS CHF EXACERBATION CHF EXACERBATION CHF EXACERBATION CHF EXACERBATION CHF EXACERBATION CHF EXACERBATION CHF EXACERBATION EORDER EORDER FROM CHELI FRASER Pacer Check Remote Reason for Visit Acute on chronic HFr EF (heart failure with reduced ejection fraction) Pleural effusion, right Chief Complaint Admit Date 4 WKS - LABS - RETACRIT September 26 1:49pm Pacer Check Remote October 11, 2024 10:32am 5WKS LABS October 31, 2024 10 :42am 4WKS LABS INJ November 29, 2024 1 :06pm 4 WEEK LABS RETACRIT December 27, 2024 9:4 9am 4 M FU December 28, 2024 1:56 pm labs w/IV start January 10, 2025 1:0 0pm CHEST PAIN January 11, 2025 6:4 1am Pacer Check Remote January 11, 2025 9:4 0am CHEST PAIN January 11, 2025 4:2 5pm 2 labs ordered-need Dr Wes acosta 01/15/25 January 15, 2025 11:55am Reason for Visit Admit Date Anemia in chronic kidney disease (CKD) D ecember 2023 1:49pm Hypokalemia September 26, 2024 1 :49pm Anemia in chronic kidney disease (CKD) J anuary 2024 10:42am Hypokalemia October 31, 2024 10 :42am Iron deficiency anemia November 29 1:06pm Anemia in chronic kidney disease (CKD) F ebruary 2024 1:06pm Hypokalemia November 29, 2024 1 :06pm Iron deficiency anemia December 27, 2024 9 :49am Anemia in chronic kidney disease (CKD) M [facility] 2024 9:49am Chest pain December 28, 2024 1:56 pm Hyperlipidemia December 28, 2024 1:56 pm Paroxysmal atrial fibrillation December 1:56pm 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 December 28, 2024 1:56pm Ischemic cardiomyopathy December 28, 2024 1:56pm Sick sinus syndrome December 28, 2024 1:56 pm Chief Complaint Admit Date 4WKS LABS INJ November 29, 2024 1 :06pm 4 WEEK LABS RETACRIT December 27, 2024 9:4 9am 4 M FU December 28, 2024 1:56 pm CHEST PAIN January 11, 2025 6:4 1am Pacer Check Remote January 11, 2025 9:4 0am CHEST PAIN January 11, 2025 4:2 5pm 2 labs ordered-need Dr Wes acosta 01/15/25 January 15, 2025 11:55am 4WKS LABS [facility] January 24, 2025 12:5 6pm 4WKS LABS February 21, 2025 12: 44pm labs w/IV start March 21, 2025 2:00p m 4WKS LABS March 21, 2025 2:16p m Reason for Visit Admit Date Iron deficiency anemia November 29 1:06pm Anemia in chronic kidney disease (CKD) F [facility] 2024 1:06pm Hypokalemia November 29, 2024 1 :06pm Iron deficiency anemia December 27, 2024 9 :49am Anemia in chronic kidney disease (CKD) 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 December 28, 2024 1:56pm Ischemic cardiomyopathy December 28, 2024 1:56pm Sick sinus syndrome December 28, 2024 1:56 pm Anemia in chronic kidney disease (CKD) A pril 2024 12:56pm Anemia in chronic kidney disease (CKD) A pril 2024 12:44pm Anemia in chronic kidney disease (CKD) M ay 2024 2:16pm Chief Complaint Admit Date 4 WEEK LABS RETACRIT December 27, 2024 9:4 9am 4 M FU December 28, 2024 1:56 pm CHEST PAIN January 11, 2025 6:4 1am Pacer Check Remote January 11, 2025 9:4 0am CHEST PAIN January 11, 2025 4:2 5pm 2 labs ordered-need Dr Wes acosta 01/15/25 January 15, 2025 11:55am 4WKS LABS RETACRIT January 24, 2025 12:5 6pm 4WKS LABS February 21, 2025 12: 44pm 4WKS LABS March 21, 2025 2:16p m 4WKS LABS April 18, 2025 2:42 pm labs w/IV start April 18, 2025 2:45 pm Reason for Visit Admit Date Iron deficiency anemia December 27, 2024 9 :49am Anemia in chronic kidney disease (CKD) M [facility] 2024 9:49am Chest pain December 28, 2024 1:56 pm Hyperlipidemia December 28, 2024 1:56 pm Paroxysmal atrial fibrillation December 1:56pm 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 December 28, 2024 1:56pm Ischemic cardiomyopathy December 28, 2024 1:56pm Sick sinus syndrome December 28, 2024 1:56 pm Anemia in chronic kidney disease (CKD) A pril 2024 12:56pm Anemia in chronic kidney disease (CKD) [facility] 2024 12:44pm Anemia in chronic kidney disease (CKD) M ay 2024 2:16pm Anemia in chronic kidney disease (CKD) J [facility] 2024 2:42pm Chief Complaint Admit Date 4 WEEK LABS RETACRIT December 27, 2024 9:4 9am 4 M FU December 28, 2024 1:56 pm CHEST PAIN January 11, 2025 6:4 1am Pacer Check Remote January 11, 2025 9:4 0am CHEST PAIN January 11, 2025 4:2 5pm 2 labs ordered-need Dr Wes acosta 01/15/25 January 15, 2025 11:55am 4WKS LABS RETACRIT January 24, 2025 12:5 6pm 4WKS LABS February 21, 2025 12: 44pm 4WKS LABS March 21, 2025 2:16p m Pacer Check Remote April 11, 2025 11:1 8am 4WKS LABS April 18, 2025 2:42 pm labs w/IV start April 18, 2025 2:45 pm Chief Complaint Admit Date 4WKS LABS RETACRIT January 24, 2025 12:5 6pm 4WKS LABS February 21, 2025 12: 44pm 4WKS LABS March 21, 2025 2:16p m Pacer Check Remote April 11, 2025 11:1 8am 4WKS LABS April 18, 2025 2:42 pm 4WKS LABS May 16, 2025 12:3 7pm labs w/IV start May 16, 2025 12:4 5pm Reason for Visit Admit Date Anemia in chronic kidney disease (CKD) A pril 2024 12:56pm Anemia in chronic kidney disease (CKD) A pril 2024 12:44pm Anemia in chronic kidney disease (CKD) M ay 2024 2:16pm Anemia in chronic kidney disease (CKD) J une 2024 2:42pm Anemia in chronic kidney disease (CKD) J osmany 2024 12:37pm Chief Complaint Admit Date 4WKS LABS February 21, 2025 12: 44pm 4WKS LABS March 21, 2025 2:16p m Pacer Check Remote April 11, 2025 11:1 8am 4WKS LABS April 18, 2025 2:42 pm 4WKS LABS May 16, 2025 12:3 7pm 4WKS LABS June 13, 2025 1: 37pm labs w/IV start June 13, 2025 1: 45pm Reason for Visit Admit Date Anemia in chronic kidney disease (CKD) A pril 2024 12:44pm Anemia in chronic kidney disease (CKD) M ay 2024 2:16pm Anemia in chronic kidney disease (CKD) J une 2024 2:42pm Anemia in chronic kidney disease (CKD) J osmany 2024 12:37pm Chief Complaint Admit Date 4WKS LABS March 21, 2025 2:16p m Pacer Check Remote April 11, 2025 11:1 8am 4WKS LABS April 18, 2025 2:42 pm 4WKS LABS May 16, 2025 12:3 7pm 4WKS LABS June 13, 2025 1: 37pm labs w/IV start June 13, 2025 1: 45pm ANNUAL IN CLINIC/[facility] @ 2 July 02, 2025 1:24pm 6 M FU/SR @ 1:30 July 02, 2025 1:25pm Reason for Visit Admit Date Anemia in chronic kidney disease (CKD) M ay 2024 2:16pm Anemia in chronic kidney disease (CKD) J une 2024 2:42pm Anemia in chronic kidney disease (CKD) J osmany 2024 12:37pm Anemia in chronic kidney disease (CKD) A ust 2024 1:37pm Chest pain July 02, 2025 1:25pm Hyperlipidemia July 02, 2025 1:25pm Paroxysmal atrial fibrillation July 02, 2025 1:25pm Ischemic cardiomyopathy July 02, 2 025 1:25pm Sick sinus syndrome July 02, 2025 1:25pm 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 July 02, 2025 1:25pm Reason for Visit Admit Date Anemia in chronic kidney disease (CKD) M ay 2024 2:16pm Anemia in chronic kidney disease (CKD) J une 2024 2:42pm Anemia in chronic kidney disease (CKD) J osmany 2024 12:37pm Anemia in chronic kidney disease (CKD) A ugust 2024 1:37pm Pacemaker July 02, 2025 1:24pm Ischemic cardiomyopathy July 02, 2 025 1:24pm Paroxysmal atrial fibrillation July 02, 2025 1:24pm Sick sinus syndrome July 02, 2025 1:24pm Hyperlipidemia July 02, 2025 1:25pm Ischemic cardiomyopathy July 02, 2 025 1:25pm Paroxysmal atrial fibrillation July 02, 2025 1:25pm Sick sinus syndrome July 02, 2025 1:25pm 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 July 02, 2025 1:25pm Chief Complaint Admit Date 4WKS LABS March 21, 2025 2:16p m Pacer Check Remote April 11, 2025 11:1 8am 4WKS LABS April 18, 2025 2:42 pm 4WKS LABS May 16, 2025 12:3 7pm 4WKS LABS June 13, 2025 1: 37pm labs w/IV start June 13, 2025 1: 45pm Pacer Check Remote July 02, 2025 9:00am ANNUAL IN CLINIC/[facility] @ 2 July 02, 2025 1:24pm 6 M FU/SR @ 1:30 July 02, 2025 1:25pm Reason for Referral Specialty Diagnoses / Procedures Referred By Contac t Referred To Contact Urology Diagnoses 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 Procedures CONSULT TO UROLOGY OFFICE/OUTPATIENT [facility] 60-74 MINUTES Della Pineda, KEEGAN.FILM DEVELOPER [address] [place] [address] Referral ID Status Reason Start Date Expiration Date Visits Requested Visits Authorized [id number] Authorized PCP Requested Referral 07/21/2022 07/21/2023 1 1 Additional Source Comments (unrecognized sect ion and content) No Status Records FoundNo Status Records FoundNo Status Records FoundNo Status Records FoundNo Status Records Found INFORMATION SOURCE (unrecogn ized section and content) DATE CREATED AUTHOR 12/04/2019 [facility] DATE CREATED AUTHOR AUTHOR'S ORGANIZ ATION 05/27/2022 [facility] DATE CREATED AUTHOR AUTHOR'S ORGANIZ ATION 12/09/2022 [facility] DATE CREATED AUTHOR AUTHOR'S ORGANIZ ATION 09/29/2023 [facility] DATE CREATED AUTHOR AUTHOR'S ORGANIZ ATION 07/04/[address] [facility] Source Comments (unrecognize d section and content) In the event this informatio n is protected by the Federal Confidentiality of Alcohol and Drug Abuse Patient Records regulations: The Federal rules restrict any use of the information to criminally investigate or prosecute any alcohol or drug abuse patient.[facility] the event this information is protected by the Federal Confidentiality of Alcohol and Drug Abuse Patient Records regulations: The Federal rules restrict any use of the information to criminally investigate or prosecute any alcohol or drug abuse patient.[facility] HospitalIn the event this information is protected by the Federal Confidentiality of Alcohol and Drug Abuse Patient Records regulations: The Federal rules restrict any use of the information to criminally investigate or prosecute any alcohol or drug abuse patient.[facility] the event this information is protected by the Federal Confidentiality of Alcohol and Drug Abuse Patient Records regulations: The Federal rules restrict any use of the information to criminally investigate or prosecute any alcohol or drug abuse patient.[facility]In the event this information is protected by the Federal Confidentiality of Alcohol and Drug Abuse Patient Records regulations: The Federal rules restrict any use of the information to criminally investigate or prosecute any alcohol or drug abuse patient.[facility] HospitalIn the event this information is protected by the Federal Confidentiality of Alcohol and Drug Abuse Patient Records regulations: The Federal rules restrict any use of the information to criminally investigate or prosecute any alcohol or drug abuse patient.[facility]In the event this information is protected by the Federal Confidentiality of Alcohol and Drug Abuse Patient Records regulations: The Federal rules restrict any use of the information to criminally investigate or prosecute any alcohol or drug abuse patient.[facility]In the event this information is protected by the Federal Confidentiality of Alcohol and Drug Abuse Patient Records regulations: The Federal rules restrict any use of the information to criminally investigate or prosecute any alcohol or drug abuse patient.[facility] HospitalIn the event this information is protected by the Federal Confidentiality of Alcohol and Drug Abuse Patient Records regulations: The Federal rules restrict any use of the information to criminally investigate or prosecute any alcohol or drug abuse patient.[facility] HospitalIn the event this information is protected by the Federal Confidentiality of Alcohol and Drug Abuse Patient Records regulations: The Federal rules restrict any use of the information to criminally investigate or prosecute any alcohol or drug abuse patient.[facility] HospitalIn the event this information is protected by the Federal Confidentiality of Alcohol and Drug Abuse Patient Records regulations: The Federal rules restrict any use of the information to criminally investigate or prosecute any alcohol or drug abuse patient.[facility] HospitalIn the event this information is protected by the Federal Confidentiality of Alcohol and Drug Abuse Patient Records regulations: The Federal rules restrict any use of the information to criminally investigate or prosecute any alcohol or drug abuse patient.[facility] HospitalIn the event this information is protected by the Federal Confidentiality of Alcohol and Drug Abuse Patient Records regulations: The Federal rules restrict any use of the information to criminally investigate or prosecute any alcohol or drug abuse patient.[facility] HospitalIn the event this information is protected by the Federal Confidentiality of Alcohol and Drug Abuse Patient Records regulations: The Federal rules restrict any use of the information to criminally investigate or prosecute any alcohol or drug abuse patient.[facility] HospitalIn the event this information is protected by the Federal Confidentiality of Alcohol and Drug Abuse Patient Records regulations: The Federal rules restrict any use of the information to criminally investigate or prosecute any alcohol or drug abuse patient.[facility] HospitalIn the event this information is protected by the Federal Confidentiality of Alcohol and Drug Abuse Patient Records regulations: The Federal rules restrict any use of the information to criminally investigate or prosecute any alcohol or drug abuse patient.[facility] HospitalIn the event this information is protected by the Federal Confidentiality of Alcohol and Drug Abuse Patient Records regulations: The Federal rules restrict any use of the information to criminally investigate or prosecute any alcohol or drug abuse patient.[facility] HospitalIn the event this information is protected by the Federal Confidentiality of Alcohol and Drug Abuse Patient Records regulations: The Federal rules restrict any use of the information to criminally investigate or prosecute any alcohol or drug abuse patient.[facility] HospitalIn the event this information is protected by the Federal Confidentiality of Alcohol and Drug Abuse Patient Records regulations: The Federal rules restrict any use of the information to criminally investigate or prosecute any alcohol or drug abuse patient.[facility] HospitalIn the event this information is protected by the Federal Confidentiality of Alcohol and Drug Abuse Patient Records regulations: The Federal rules restrict any use of the information to criminally investigate or prosecute any alcohol or drug abuse patient.[facility] HospitalIn the event this information is protected by the Federal Confidentiality of Alcohol and Drug Abuse Patient Records regulations: The Federal rules restrict any use of the information to criminally investigate or prosecute any alcohol or drug abuse patient.[facility] HospitalIn the event this information is protected by the Federal Confidentiality of Alcohol and Drug Abuse Patient Records regulations: The Federal rules restrict any use of the information to criminally investigate or prosecute any alcohol or drug abuse patient.[facility] HospitalIn the event this information is protected by the Federal Confidentiality of Alcohol and Drug Abuse Patient Records regulations: The Federal rules restrict any use of the information to criminally investigate or prosecute any alcohol or drug abuse patient.[facility] HospitalIn the event this information is protected by the Federal Confidentiality of Alcohol and Drug Abuse Patient Records regulations: The Federal rules restrict any use of the information to criminally investigate or prosecute any alcohol or drug abuse patient.[facility] HospitalIn the event this information is protected by the Federal Confidentiality of Alcohol and Drug Abuse Patient Records regulations: The Federal rules restrict any use of the information to criminally investigate or prosecute any alcohol or drug abuse patient.[facility] HospitalIn the event this information is protected by the Federal Confidentiality of Alcohol and Drug Abuse Patient Records regulations: The Federal rules restrict any use of the information to criminally investigate or prosecute any alcohol or drug abuse patient.[facility] HospitalIn the event this information is protected by the Federal Confidentiality of Alcohol and Drug Abuse Patient Records regulations: The Federal rules restrict any use of the information to criminally investigate or prosecute any alcohol or drug abuse patient.[facility] HospitalIn the event this information is protected by the Federal Confidentiality of Alcohol and Drug Abuse Patient Records regulations: The Federal rules restrict any use of the information to criminally investigate or prosecute any alcohol or drug abuse patient.[facility] HospitalIn the event this information is protected by the Federal Confidentiality of Alcohol and Drug Abuse Patient Records regulations: The Federal rules restrict any use of the information to criminally investigate or prosecute any alcohol or drug abuse patient.[facility] HospitalIn the event this information is protected by the Federal Confidentiality of Alcohol and Drug Abuse Patient Records regulations: The Federal rules restrict any use of the information to criminally investigate or prosecute any alcohol or drug abuse patient.[facility] HospitalIn the event this information is protected by the Federal Confidentiality of Alcohol and Drug Abuse Patient Records regulations: The Federal rules restrict any use of the information to criminally investigate or prosecute any alcohol or drug abuse patient.[facility] HospitalIn the event this information is protected by the Federal Confidentiality of Alcohol and Drug Abuse Patient Records regulations: The Federal rules restrict any use of the information to criminally investigate or prosecute any alcohol or drug abuse patient.[facility] HospitalIn the event this information is protected by the Federal Confidentiality of Alcohol and Drug Abuse Patient Records regulations: The Federal rules restrict any use of the information to criminally investigate or prosecute any alcohol or drug abuse patient.[facility] HospitalIn the event this information is protected by the Federal Confidentiality of Alcohol and Drug Abuse Patient Records regulations: The Federal rules restrict any use of the information to criminally investigate or prosecute any alcohol or drug abuse patient.[facility] HospitalIn the event this information is protected by the Federal Confidentiality of Alcohol and Drug Abuse Patient Records regulations: The Federal rules restrict any use of the information to criminally investigate or prosecute any alcohol or drug abuse patient.[facility] HospitalIn the event this information is protected by the Federal Confidentiality of Alcohol and Drug Abuse Patient Records regulations: The Federal rules restrict any use of the information to criminally investigate or prosecute any alcohol or drug abuse patient.[facility] HospitalIn the event this information is protected by the Federal Confidentiality of Alcohol and Drug Abuse Patient Records regulations: The Federal rules restrict any use of the information to criminally investigate or prosecute any alcohol or drug abuse patient.[facility] HospitalIn the event this information is protected by the Federal Confidentiality of Alcohol and Drug Abuse Patient Records regulations: The Federal rules restrict any use of the information to criminally investigate or prosecute any alcohol or drug abuse patient.[facility] HospitalIn the event this information is protected by the Federal Confidentiality of Alcohol and Drug Abuse Patient Records regulations: The Federal rules restrict any use of the information to criminally investigate or prosecute any alcohol or drug abuse patient.[facility] HospitalIn the event this information is protected by the Federal Confidentiality of Alcohol and Drug Abuse Patient Records regulations: The Federal rules restrict any use of the information to criminally investigate or prosecute any alcohol or drug abuse patient.[facility] HospitalIn the event this information is protected by the Federal Confidentiality of Alcohol and Drug Abuse Patient Records regulations: The Federal rules restrict any use of the information to criminally investigate or prosecute any alcohol or drug abuse patient.[facility] HospitalIn the event this information is protected by the Federal Confidentiality of Alcohol and Drug Abuse Patient Records regulations: The Federal rules restrict any use of the information to criminally investigate or prosecute any alcohol or drug abuse patient.[facility] HospitalIn the event this information is protected by the Federal Confidentiality of Alcohol and Drug Abuse Patient Records regulations: The Federal rules restrict any use of the information to criminally investigate or prosecute any alcohol or drug abuse patient.[facility] HospitalIn the event this information is protected by the Federal Confidentiality of Alcohol and Drug Abuse Patient Records regulations: The Federal rules restrict any use of the information to criminally investigate or prosecute any alcohol or drug abuse patient.[facility] HospitalIn the event this information is protected by the Federal Confidentiality of Alcohol and Drug Abuse Patient Records regulations: The Federal rules restrict any use of the information to criminally investigate or prosecute any alcohol or drug abuse patient.[facility] HospitalIn the event this information is protected by the Federal Confidentiality of Alcohol and Drug Abuse Patient Records regulations: The Federal rules restrict any use of the information to criminally investigate or prosecute any alcohol or drug abuse patient.[facility] HospitalIn the event this information is protected by the Federal Confidentiality of Alcohol and Drug Abuse Patient Records regulations: The Federal rules restrict any use of the information to criminally investigate or prosecute any alcohol or drug abuse patient.[facility] HospitalIn the event this information is protected by the Federal Confidentiality of Alcohol and Drug Abuse Patient Records regulations: The Federal rules restrict any use of the information to criminally investigate or prosecute any alcohol or drug abuse patient.[facility] HospitalIn the event this information is protected by the Federal Confidentiality of Alcohol and Drug Abuse Patient Records regulations: The Federal rules restrict any use of the information to criminally investigate or prosecute any alcohol or drug abuse patient.[facility] HospitalIn the event this information is protected by the Federal Confidentiality of Alcohol and Drug Abuse Patient Records regulations: The Federal rules restrict any use of the information to criminally investigate or prosecute any alcohol or drug abuse patient.[facility] HospitalIn the event this information is protected by the Federal Confidentiality of Alcohol and Drug Abuse Patient Records regulations: The Federal rules restrict any use of the information to criminally investigate or prosecute any alcohol or drug abuse patient.[facility] HospitalIn the event this information is protected by the Federal Confidentiality of Alcohol and Drug Abuse Patient Records regulations: The Federal rules restrict any use of the information to criminally investigate or prosecute any alcohol or drug abuse patient.[facility] HospitalIn the event this information is protected by the Federal Confidentiality of Alcohol and Drug Abuse Patient Records regulations: The Federal rules restrict any use of the information to criminally investigate or prosecute any alcohol or drug abuse patient.[facility] HospitalIn the event this information is protected by the Federal Confidentiality of Alcohol and Drug Abuse Patient Records regulations: The Federal rules restrict any use of the information to criminally investigate or prosecute any alcohol or drug abuse patient.[facility] HospitalIn the event this information is protected by the Federal Confidentiality of Alcohol and Drug Abuse Patient Records regulations: The Federal rules restrict any use of the information to criminally investigate or prosecute any alcohol or drug abuse patient.[facility] HospitalIn the event this information is protected by the Federal Confidentiality of Alcohol and Drug Abuse Patient Records regulations: The Federal rules restrict any use of the information to criminally investigate or prosecute any alcohol or drug abuse patient.[facility] HospitalIn the event this information is protected by the Federal Confidentiality of Alcohol and Drug Abuse Patient Records regulations: The Federal rules restrict any use of the information to criminally investigate or prosecute any alcohol or drug abuse patient.[facility] HospitalIn the event this information is protected by the Federal Confidentiality of Alcohol and Drug Abuse Patient Records regulations: The Federal rules restrict any use of the information to criminally investigate or prosecute any alcohol or drug abuse patient.[facility] HospitalIn the event this information is protected by the Federal Confidentiality of Alcohol and Drug Abuse Patient Records regulations: The Federal rules restrict any use of the information to criminally investigate or prosecute any alcohol or drug abuse patient.[facility] HospitalIn the event this information is protected by the Federal Confidentiality of Alcohol and Drug Abuse Patient Records regulations: The Federal rules restrict any use of the information to criminally investigate or prosecute any alcohol or drug abuse patient.[facility] HospitalIn the event this information is protected by the Federal Confidentiality of Alcohol and Drug Abuse Patient Records regulations: The Federal rules restrict any use of the information to criminally investigate or prosecute any alcohol or drug abuse patient.[facility] HospitalIn the event this information is protected by the Federal Confidentiality of Alcohol and Drug Abuse Patient Records regulations: The Federal rules restrict any use of the information to criminally investigate or prosecute any alcohol or drug abuse patient.[facility] HospitalIn the event this information is protected by the Federal Confidentiality of Alcohol and Drug Abuse Patient Records regulations: The Federal rules restrict any use of the information to criminally investigate or prosecute any alcohol or drug abuse patient.[facility] HospitalIn the event this information is protected by the Federal Confidentiality of Alcohol and Drug Abuse Patient Records regulations: The Federal rules restrict any use of the information to criminally investigate or prosecute any alcohol or drug abuse patient.[facility] HospitalIn the event this information is protected by the Federal Confidentiality of Alcohol and Drug Abuse Patient Records regulations: The Federal rules restrict any use of the information to criminally investigate or prosecute any alcohol or drug abuse patient.[facility] HospitalIn the event this information is protected by the Federal Confidentiality of Alcohol and Drug Abuse Patient Records regulations: The Federal rules restrict any use of the information to criminally investigate or prosecute any alcohol or drug abuse patient.[facility] HospitalIn the event this information is protected by the Federal Confidentiality of Alcohol and Drug Abuse Patient Records regulations: The Federal rules restrict any use of the information to criminally investigate or prosecute any alcohol or drug abuse patient.[facility] HospitalIn the event this information is protected by the Federal Confidentiality of Alcohol and Drug Abuse Patient Records regulations: The Federal rules restrict any use of the information to criminally investigate or prosecute any alcohol or drug abuse patient.[facility] Reason for Visit (unrecogniz ed section and content) Reason Onset Date Comments Community Monitoring Outreach 02/03/2022 CH F/ CKD CDM Outreach Reason Onset Date Comments Refill Request 02/12/2022 [...] NEW HIGH MDM 60-74 MINUTES 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 [address] [place] [address] Referral ID Status Reason Start Date Expiration Date V isits Requested Visits Authorized [id number] Closed PCP Requested Referral 07/21/2022 07/21/2023 1 [...] Question Refill Reason Comments Recheck Reason Comments 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 Reason Onset Date Comments Community [...] anot her kidney doctor closer to home ([place], [place]) Reason Onset Date Comments Community Monitoring Outreach 08/06/2023 Reason Comments Radiology XR Care Teams (unrecognized sec tion and content) Batchmaker Relationship Specialty Start Date End Date Arnold Spencer MD [address] [place], [place] [id number] [phone] PCP - General Internal Medicine 09/16/21 Jarvis Mcgee, mutuel department managerCarpet Tile Layer Internal Medicine 10/22/21 Batchmaker Relationship Specialty Start Date End Date Arnold Spencer MD [address] [facility] [place] [address] PCP - General Internal Medicine 09/16/21 Jarvis Mcgee, mutuel department managerCarpet Tile Layer Internal Medicine 10/22/21 Batchmaker Relationship Specialty Start Date End Date Arnold Spencer MD [address] [facility] [place] [address] PCP - General Internal Medicine 09/16/21 Jarvis Mcgee, mutuel department managerCarpet Tile Layer Internal Medicine 10/22/21 Batchmaker Relationship Specialty Start Date End Date Arnold Spencer MD [address] [facility] [place] [address] PCP - General Internal Medicine 09/16/21 Jarvis Mcgee, mutuel department managerCarpet Tile Layer Internal Medicine 10/22/21 Batchmaker Relationship Specialty Start Date End Date Arnold Spencer MD [address] [facility] [place] [address] PCP - General Internal Medicine 09/16/21 Jarvis Mcgee, mutuel department managerCarpet Tile Layer Internal Medicine 10/22/21 Batchmaker Relationship Specialty Start Date End Date Arnold Spencer MD [address] [facility] [place] [address] PCP - General Internal Medicine 09/16/21 Jarvis Mcgee, mutuel department managerCarpet Tile Layer Internal Medicine 10/22/21 Batchmaker Relationship Specialty Start Date End Date Arnold Spencer MD [address] [facility] [place] [address] PCP - General Internal Medicine 09/16/21 Jarvis Mcgee, mutuel department managerCarpet Tile Layer Internal Medicine 10/22/21 Batchmaker Relationship Specialty Start Date End Date Arnold Spencer MD [address] [facility] [place] [address] PCP - General Internal Medicine 09/16/21 Jarvis Mcgee, mutuel department managerCarpet Tile Layer Internal Medicine 10/22/21 Batchmaker Relationship Specialty Start Date End Date Arnold Spencer MD [address] [facility] [place] [address] PCP - General Internal Medicine 09/16/21 Jarvis Mcgee, mutuel department managerCarpet Tile Layer Internal Medicine 10/22/21 Batchmaker Relationship Specialty Start Date End Date Arnold Spencer MD [address] [facility] [place] [address] PCP - General Internal Medicine 09/16/21 Jarvis Mcgee, mutuel department managerCarpet Tile Layer Internal Medicine 10/22/21 Batchmaker Relationship Specialty Start Date End Date Arnold Spencer MD [address] [facility] [place] [address] PCP - General Internal Medicine 09/16/21 Jarvis Mcgee, mutuel department managerCarpet Tile Layer Internal Medicine 10/22/21 Batchmaker Relationship Specialty Start Date End Date Arnold Spencer MD [address] [facility] [place] [address] PCP - General Internal Medicine 09/16/21 Jarvis Mcgee, mutuel department managerCarpet Tile Layer Internal Medicine 10/22/21 Batchmaker Relationship Specialty Start Date End Date Arnold Spencer MD [address] [facility] [place] [address] PCP - General Internal Medicine 09/16/21 Jarvis Mcgee, mutuel department managerCarpet Tile Layer Internal Medicine 10/22/21 Batchmaker Relationship Specialty Start Date End Date Arnold Spencer MD [address] [facility] [place] [address] PCP - General Internal Medicine 09/16/21 Jarvis Mcgee, mutuel department managerCarpet Tile Layer Internal Medicine 10/22/21 Batchmaker Relationship Specialty Start Date End Date Arnold Spencer MD [address] [facility] [place] [address] PCP - General Internal Medicine 09/16/21 Jarvis Mcgee, mutuel department managerCarpet Tile Layer Internal Medicine 10/22/21 Batchmaker Relationship Specialty Start Date End Date Arnold Spencer MD [address] [facility] [place] [address] PCP - General Internal Medicine 09/16/21 Jarvis Mcgee, mutuel department managerCarpet Tile Layer Internal Medicine 10/22/21 Batchmaker Relationship Specialty Start Date End Date Arnold Spencer MD [address] [facility] [place] [address] PCP - General Internal Medicine 09/16/21 Jarvis Mcgee, mutuel department managerCarpet Tile Layer Internal Medicine 10/22/21 Batchmaker Relationship Specialty Start Date End Date Arnold Spencer MD [address] [facility] [place] [address] PCP - General Internal Medicine 09/16/21 Jarvis Mcgee, mutuel department managerCarpet Tile Layer Internal Medicine 10/22/21 Batchmaker Relationship Specialty Start Date End Date Arnold Spencer MD [address] [facility] [place] [address] PCP - General Internal Medicine 09/16/21 Jacquelyn Conley, mutuel department managerCarpet Tile Layer Internal Medicine 10/22/21 Batchmaker Relationship Specialty Start Date End Date Arnold Spencer MD [address] [facility] [place] [address] PCP - General Internal Medicine 09/16/21 Jacquelyn Conley, mutuel department managerCarpet Tile Layer Internal Medicine 10/22/21 Batchmaker Relationship Specialty Start Date End Date Arnold Spencer MD [address] [facility] [place] [address] PCP - General Internal Medicine 09/16/21 Jacquelyn Conley mutuel department managerCarpet Tile Layer Internal Medicine 10/22/21 Batchmaker Relationship Specialty Start Date End Date Arnold Spencer MD [address] [facility] [place] [address] PCP - General Internal Medicine 09/16/21 Jacquelyn Conley, mutuel department managerCarpet Tile Layer Internal Medicine 10/22/21 Batchmaker Relationship Specialty Start Date End Date Arnold Spencer MD [address] [facility] [place] [address] PCP - General Internal Medicine 09/16/21 Jacquelyn Conley, mutuel department managerCarpet Tile Layer Internal Medicine 10/22/21 Batchmaker Relationship Specialty Start Date End Date Arnold Spencer MD [address] [facility] [place] [address] PCP - General Internal Medicine 09/16/21 Jacquelyn Conley, mutuel department managerCarpet Tile Layer Internal Medicine 10/22/21 Team Status: Active Member Role Status Dates Dr. Kota Mercado MD Family Provider Active Dr. Arnold Spencer MD Primary Care Provider Active Team Status: Inactive Member Role Status Dates Dr. Arnold Spencer MD Primary Care Provider, Referr ing Provider Active Dr. Destin Harvey MD Attending Provider Active Team Status: Inactive Member Role Status Dates Dr. Arnold Spencer MD Primary Care Provider, Referr ing Provider Active Dr. Stephon Larios DO Attending Provider Active Team Status: Inactive Member Role Status Dates Dr. Arnold Spencer MD Primary Care Provider, Referr ing Provider Active Monik Fraser PHARMACEUTICAL SCIENTIST, PHARMACEUTICAL SCIENTIST-C Attending Provider Active Team Status: Active Member Role Status Dates Dr. Arnold Spencer MD Primary Care Provider Active Dr. Destin Harvey MD Attending Provider Active Team Status: Inactive Member Role Status Dates Dr. Arnold Spencer MD Primary Care Provider, Referr ing Provider Active Katie Mariscal Attending Provider Active Team Status: Inactive Member Role Status Dates Dr. Arnold Spencer MD Primary Care Provider, Referr ing Provider Active Tess Skinner PHARMACEUTICAL SCIENTIST, PHARMACEUTICAL SCIENTIST-C Attending Provider Active Team Status: Inactive Member Role Status Dates Dr. Arnold Spencer MD Primary Care Provider Active Monik Fraser PHARMACEUTICAL SCIENTIST, PHARMACEUTICAL SCIENTIST-C Attending Provider, Referring P rovider Active Team Status: Active Member Role Status Dates Dr. Arnold Spencer MD Primary Care Provider Active Enid Marie PHARMACEUTICAL SCIENTIST, PHARMACEUTICAL SCIENTIST-C Attending Provider, Referring Provi elida Active Team Status: Inactive Member Role Status Dates Dr. Arnold Spencer MD Primary Care Provider Active Dr. Derian Perla DO Attending Provider, Emergency Pr ovider Active Team Status: Inactive Member Role Status Dates Dr. Arnold Spencer MD Primary Care Provider Active Haile Martin PHARMACEUTICAL SCIENTIST, PHARMACEUTICAL SCIENTIST-C Attending Provider, Referring Pro vider Active Team Status: Active Member Role Status Dates Dr. Aronld Spencer MD Primary Care Provider Active Haile Martin PHARMACEUTICAL SCIENTIST, PHARMACEUTICAL SCIENTIST-C Attending Provider, Referring Pro vider Active Tess Skinner PHARMACEUTICAL SCIENTIST, PHARMACEUTICAL SCIENTIST-C Other Provider Active Batchmaker Relationship Specialty Start Date End Date Arnold Spencer MD [address] [place] [address] PCP - General Internal Medicine 09/16/21 Jacquelyn Conley RN Carpet Tile Layer Internal Medicine 10/22/21 Team Status: Inactive Member Role Status Dates Dr. Arnold Spencer MD Primary Care Provider Active nEid Marie PHARMACEUTICAL SCIENTIST, PHARMACEUTICAL SCIENTIST-C Attending Provider, Referring Provi elida Active Team Status: Inactive Member Role Status Dates Dr. Arnold Spencer MD Primary Care Provider Active Haile Martin PHARMACEUTICAL SCIENTIST, PHARMACEUTICAL SCIENTIST-C Attending Provider, Referring Pro vider Active Tess Skinner PHARMACEUTICAL SCIENTIST, PHARMACEUTICAL SCIENTIST-C Other Provider Active Batchmaker Relationship Specialty Start Date End Date Arnold Spencer MD [address] [place], [place] [id number] PCP - General Internal Medicine 09/16/21 Jacquelyn Conley RN Carpet Tile Layer Internal Medicine 10/22/21 Batchmaker Relationship Specialty Start Date End Date Arnold Spencer MD [address] [facility] [place] [address] PCP - General Internal Medicine 09/16/21 Jacquelyn Conley RN Carpet Tile Layer Internal Medicine 10/22/21 Batchmaker Relationship Specialty Start Date End Date Arnold Spencer MD [address] [facility] [place] [address] PCP - General Internal Medicine 09/16/21 Jacquelyn Conley RN Carpet Tile Layer Internal Medicine 10/22/21 Batchmaker Relationship Specialty Start Date End Date Arnold Spencer MD [address] [facility] [place] [address] PCP - General Internal Medicine 09/16/21 Jacquelyn Conley mutuel department managerCarpet Tile Layer Internal Medicine 10/22/21 Team Status: Active Member Role Status Dates Dr. Kota Mercado MD Family Provider Active Cheli Grace MD Primary Care Provider Active Team Status: Inactive Member Role Status Dates Cheli Grace MD Primary Care Provider Active Monik Fraser PHARMACEUTICAL SCIENTIST, PHARMACEUTICAL SCIENTIST-C Attending Provider Active Batchmaker Relationship Specialty Start Date End Date Jacquelyn Conley RN Carpet Tile Layer Internal Medicine 10/22/21 Batchmaker Relationship Specialty Start Date End Date Jacquelyn Conley RN Carpet Tile Layer Internal Medicine 10/22/21 Team Status: Inactive Member Role Status Dates Cheli Grace MD Primary Care Provider Active Dr. Florecita Wells DO Attending Provider, Referring Leoncio hartmann Active Team Status: Active Member Role Status Nancy Grace MD Primary Care Provider Active Dr. Deon Joy MD Emergency Provider Active Dr. Capri Scott DO Admit Provider, Other Provid er Active Dr. Yaneli Cortés MD Attending Provider, Other Prov ider Active Dr. Dav Renteria MD Other Provider Active Team Status: Inactive Member Role Status Dates Chalon Lesly , MD Primary Care Provider Active Dr. Deon Joy MD Emergency Provider Active Dr. Capri Scott DO Admit Provider, Other Provid er Active Dr. Yaneli Cortés MD Attending Provider Active Dr. Dav Renteria MD Other Provider Active Team Status: Active Member Role Status Nancy Grace MD Primary Care Provider Active Dr. Destin Harvey MD Attending Provider Active Dr. Capri Scott DO Referring Provider Active Team Status: Inactive Member Role Status Nancy Grace MD Primary Care Provider Active Dr. Destin Harvey MD Attending Provider Active Team Status: Inactive Member Role Status Nancy Grace MD Primary Care Provider, Attending Prov ider Active Team Status: Active Member Role Status Nancy Grace MD Primary Care Provider Active Dr. Kahlil Kennedy MD Attending Provider Active Team Status: Inactive Member Role Status Nancy Grace MD Primary Care Provide r, Attending Provider, Referring Provider Active Team Status: Active Member Role Status Nancy Grace MD Primary Care Provider, Referring Prov ider Active Dr. Kahlil Kennedy MD Attending Provider Active Team Status: Active Member Role Status Nancy Grace MD Primary Care Provider Active Jadon Montano MD Emergency Provider Active Dr. Capri Scott DO Admit Provider, Other Provid er Active Dr. Gómez Nowak DO Attending Provider, Other Provid er Active Team Status: Inactive Member Role Status Nancy Grace MD Primary Care Provider Active Jadon Montano MD Emergency Provider Active Dr. Capri Scott DO Admit Provider, Other Provid er Active Dr. Gómez Nowak DO Attending Provider Active Team Status: Active Member Role Status Nancy Grace MD Primary Care Provider Active Dr. Destin Harvey MD Attending Provider Active Team Status: Active Member Role Status Nancy Grace MD Primary Care Provider Active Monik Fraser PHARMACEUTICAL SCIENTIST, PHARMACEUTICAL SCIENTIST-C Attending Provider Active Team Status: Inactive Member Role Status Nancy Fraser PHARMACEUTICAL SCIENTIST, PHARMACEUTICAL SCIENTIST-C Attending Provider, Referring P rovider Active Cheli Grace MD Primary Care Provider Active Team Status: Inactive Member Role Status Nancy Grace MD Primary Care Provider Active Dr. Guillermo Negrete MD Emergency Provider Active Team Status: Inactive Member Role Status Nancy Grace MD Primary Care Provider Active Dr. Guillermo Negrete MD Attending Provider, Emergency Provi elida Active Team Status: Active Member Role Status Nancy Grace MD Primary Care Provide r, Attending Provider, Referring Provider Active Team Status: Active Member Role Status Nancy Grace MD Primary Care Provider Active Dr. Devin Kennedy DO Referring Provider, Emergency P rovider Active Dr. Dav Renteria MD Admit Provider, Attending Provi elida Active Team Status: Active Member Role Status Nancy Grace MD Primary Care Provider Active Dr. Devin Kennedy DO Referring Provider, Emergency P rovider Active Dr. Dav Renteria MD Admit Provider, A ttending Provider, Other Provider Active Team Status: Active Member Role Status Nancy Grace MD Primary Care Provider Active Dr. Devin Kennedy DO Referring Provider, Emergency P rovider Active Dr. Dav Renteria MD Admit Provider, Other Provider Active Dr. Gómez Nowak DO Attending Provider, Other Provid er Active Team Status: Active Member Role Status Nancy Grace MD Primary Care Provider Active Dr. Devin Kennedy DO Referring Provider, Emergency P rovider Active Dr. Dav Renteria MD Admit Provider, Other Provider Active Dr. Sanjeev Sandhu , DO Other Provider Active Dr. Gómez Nowak DO Other Provider Active Cornelia Montgomery , RICHARD-C Attending Provider Active Team Status: Active Member Role Status Nancy Grace MD Primary Care Provider Active Dr. Devin Kennedy DO Referring Provider, Emergency P rovider Active Dr. Dav Renteria MD Admit Provider, Other Provider Active Dr. Sanjeev Sandhu , DO Attending Provider Active Dr. Gómez Nowak DO Other Provider Active Team Status: Active Member Role Status Nancy Grace MD Primary Care Provider Active Dr. Devin Kennedy DO Referring Provider, Emergency P rovider Active Dr. Dav Renteria MD Admit Provider, Other Provider Active Dr. Sanjeev Sandhu , DO Attending Provider, Other Provider Active Dr. Gómez Nowak , Other Provider Active Team Status: Active Member Role Status Nancy Grace MD Primary Care Provider Active Dr. Devin Kennedy DO Referring Provider, Emergency P rovider Active Dr. Dav Renteria MD Admit Provider, Other Provider Active Dr. Sanjeev Sandhu , DO Other Provider Active Dr. Gómez Nowak , DO Other Provider Active Dr. oJse Soto MD Attending Provider, Other Prov ider Active Team Status: Active Member Role Status Nancy Grace MD Primary Care Provider Active Dr. Devin Kennedy , DO Referring Provider, Emergency P rovider Active Dr. Dav Renteria MD Admit Provider, Other Provider Active Dr. Sanjeev Sandhu , DO Attending Provider, Other Provider Active Dr. Gómez Nowak , DO Other Provider Active Dr. Jose Soto MD Other Provider Active Team Status: Inactive Member Role Status Nancy Grace MD Primary Care Provider Active Dr. Devin Kennedy , DO Referring Provider, Emergency P rovider Active Dr. Dav Renteria MD Admit Provider, Other Provider Active Dr. Sanjeev Sandhu , DO Attending Provider Active Dr. Gómez Nowak , DO Other Provider Active Dr. Jose Soto MD Other Provider Active Team Status: Active Member Role Status Nancy Grace MD Primary Care Provider Active Dr. Devin Kennedy , DO Emergency Provider Active Dr. Dav Renteria MD Admit Provider, Other Provider Active Dr. Sanjeev Sandhu , DO Attending Provider, Other Provider Active Dr. Gómez Nowak , DO Other Provider Active Team Status: Active Member Role Status Nancy Grace MD Primary Care Provider Active Dr. Devin Kennedy , DO Emergency Provider Active Dr. Dav Renteria MD Admit Provider, Other Provider Active Dr. Sanjeev Sandhu , DO Attending Provider, Other Provider Active Dr. Gómez Nowak , DO Other Provider Active Dr. Jose Soto MD Other Provider Active Team Status: Inactive Member Role Status Nancy Grace MD Primary Care Provider, Other Provider Active Dr. Florecita Wells , DO Attending Provider, Referring P rovider Active Monik Fraser PHARMACEUTICAL SCIENTIST, PHARMACEUTICAL SCIENTIST-C Other Provider Active Batchmaker Relationship Specialty Start Date End Date Arnold Spencer MD [address] [place] [address] PCP - General Internal Medicine 09/16/21 07/08/23 Jacquelyn Conley RN Carpet Tile Layer Internal Medicine 10/22/21 09/26/23 Batchmaker Relationship Specialty Start Date End Date Arnold Spencer MD [address] [place] [address] PCP - General Internal Medicine 09/16/21 07/08/23 Jacquelyn Conley mutuel department managerCarpet Tile Layer Internal Medicine 10/22/21 09/26/23 Batchmaker Relationship Specialty Start Date End Date Kota Mercado MD [address] [place] [address] PCP - General Family Medicine 07/24/15 09/15/21 Batchmaker Relationship Specialty Start Date End Date Kota Mercado MD [address] [place] [address] PCP - General Family Medicine 07/24/15 09/15/21 Team Status: Active Member Role Status Nancy Grace MD Primary Care Provider Active Team Status: Inactive Member Role Status Nancy Grace MD Primary Care Provider Active St art: September 26, 2024 End: September 26, 2024 Cheli Grace MD Referring Provider Active Start : September 26, 2024 End: September 26, 2024 Dr. Felipe Trivedi MD Attending Provider Active S tart: September 26, 2024 End: September 26, 2024 Team Status: Inactive Member Role Status Nancy Grace MD Primary Care Provider Active St art: October 11, 2024 End: October 11, 2024 Dr. Destin Harvey MD Attending Provider Active S tart: October 11, 2024 End: October 11, 2024 Team Status: Inactive Member Role Status Nancy Grace MD Primary Care Provider Active St art: October 31, 2024 End: October 31, 2024 Cheli Grace MD Referring Provider Active Start : October 31, 2024 End: October 31, 2024 Dr. Felipe Trivedi MD Attending Provider Active S tart: October 31, 2024 End: October 31, 2024 Team Status: Inactive Member Role Status Nancy Grace MD Primary Care Provider Active St art: November 29, 2024 End: November 29, 2024 Cheli Grace MD Referring Provider Active Start : November 29, 2024 End: November 29, 2024 Yolanda Bansal PHARMACEUTICAL SCIENTIST, PHARMACEUTICAL SCIENTIST-C Attending Provider Active Start: November 29, 2024 End: November 29, 2024 Team Status: Inactive Member Role Status Nancy Grace MD Primary Care Provider Active St art: December 27, 2024 End: December 27, 2024 Cheli Grace MD Referring Provider Active Start : December 27, 2024 End: December 27, 2024 Yolanda Bansal PHARMACEUTICAL SCIENTIST, PHARMACEUTICAL SCIENTIST-C Attending Provider Active Start: December 27, 2024 End: December 27, 2024 Team Status: Inactive Member Role Status Nancy Grace MD Primary Care Provider Active St art: December 28, 2024 End: December 28, 2024 Cheli Grace MD Referring Provider Active Start : December 28, 2024 End: December 28, 2024 Ashlee Oleary PA, PA Attending Provider Active Start: December 28, 2024 End: December 28, 2024 Team Status: Active Member Role Status Nancy Grace MD Primary Care Provider Active St art: January 10, 2025 Dr. Felipe Trivedi MD Attending Provider Active S tart: January 10, 2025 Dr. Felipe Trivedi MD Referring Provider Active S tart: January 10, 2025 Team Status: Inactive Member Role Status Nancy Grace MD Primary Care Provider Active St art: January 11, 2025 End: January 11, 2025 Ashlee Oleary PA, PA Attending Provider Active Start: January 11, 2025 End: January 11, 2025 Ashlee Oleary PA, PA Referring Provider Active Start: January 11, 2025 End: January 11, 2025 Team Status: Inactive Member Role Status Nancy Grace MD Primary Care Provider Active St art: January 11, 2025 End: January 11, 2025 Dr. Destin Harvey MD Attending Provider Active S tart: January 11, 2025 End: January 11, 2025 Team Status: Active Member Role Status Nancy Grace MD Primary Care Provider Active St art: January 11, 2025 Ashlee Oleary PA, PA Referring Provider Active Start: January 11, 2025 Ashlee Oleary PA, PA Other Provider Active Start: January 11, 2025 Dr. Destin Harvey MD Attending Provider Active S tart: January 11, 2025 Team Status: Active Member Role Status Nancy Grace MD Primary Care Provider Active St art: January 15, 2025 Dr. Stefany Norwood MD Attending Provider Active Start: January 15, 2025 Dr. Destin Harvey MD Referring Provider Active S tart: January 15, 2025 Team Status: Inactive Member Role Status Nancy Grace MD Primary Care Provider Active St art: January 15, 2025 End: January 15, 2025 Dr. Stefany Norwood MD Attending Provider Active Start: January 15, 2025 End: January 15, 2025 Dr. Destin Harvey MD Referring Provider Active S tart: January 15, 2025 End: January 15, 2025 Team Status: Inactive Member Role Status Nancy Grace MD Primary Care Provider Active St art: January 24, 2025 End: January 24, 2025 Cheli Grace MD Referring Provider Active Start : January 24, 2025 End: January 24, 2025 Dr. Felipe Trivedi MD Attending Provider Active S tart: January 24, 2025 End: January 24, 2025 Team Status: Inactive Member Role Status Nancy Grace MD Primary Care Provider Active St art: February 21, 2025 End: February 21, 2025 Cheli Grace MD Referring Provider Active Start : February 21, 2025 End: February 21, 2025 Dr. Felipe Trivedi MD Attending Provider Active S tart: February 21, 2025 End: February 21, 2025 Team Status: Active Member Role Status Nancy Grace MD Primary Care Provider Active St art: March 21, 2025 Dr. Felipe Trivedi MD Attending Provider Active S tart: March 21, 2025 Dr. Felipe Trivedi MD Referring Provider Active S tart: March 21, 2025 Team Status: Inactive Member Role Status Nancy Grace MD Primary Care Provider Active St art: March 21, 2025 End: March 21, 2025 Cheli Grace MD Referring Provider Active Start : March 21, 2025 End: March 21, 2025 Dr. Felipe Trivedi MD Attending Provider Active S tart: March 21, 2025 End: March 21, 2025 Team Status: Inactive Member Role Status Nancy Grace MD Primary Care Provider Active St art: April 18, 2025 End: April 18, 2025 Cheli Grace MD Referring Provider Active Start : April 18, 2025 End: April 18, 2025 Dr. Felipe Trivedi MD Attending Provider Active S tart: April 18, 2025 End: April 18, 2025 Team Status: Active Member Role Status Nancy Grace MD Primary Care Provider Active St art: April 18, 2025 Dr. Felipe Trivedi MD Attending Provider Active S tart: April 18, 2025 Dr. Felipe Trivedi MD Referring Provider Active S tart: April 18, 2025 Team Status: Active Member Role/Relationship Status Nancy Grace MD Primary Care Provider Active Team Status: Inactive Member Role/Relationship Status Nancy Grace MD Primary Care Provider Active St art: December 27, 2024 End: December 27, 2024 Cheli Grace MD Referring Provider Active Start : December 27, 2024 End: December 27, 2024 Yolanda Bansal PHARMACEUTICAL SCIENTIST, PHARMACEUTICAL SCIENTIST-C Attending Provider Active Start: December 27, 2024 End: December 27, 2024 Team Status: Inactive Member Role/Relationship Status Nancy Grace MD Primary Care Provider Active St art: December 28, 2024 End: December 28, 2024 Cheli Grace MD Referring Provider Active Start : December 28, 2024 End: December 28, 2024 Ashlee Oleary PA, PA Attending Provider Active Start: December 28, 2024 End: December 28, 2024 Team Status: Inactive Member Role/Relationship Status Nancy Grace MD Primary Care Provider Active St art: January 11, 2025 End: January 11, 2025 Ashlee Oleary PA, PA Attending Provider Active Start: January 11, 2025 End: January 11, 2025 Ashlee Oleary PA, PA Referring Provider Active Start: January 11, 2025 End: January 11, 2025 Team Status: Inactive Member Role/Relationship Status Nancy Grace MD Primary Care Provider Active St art: January 11, 2025 End: January 11, 2025 Dr. Destin Harvey MD Attending Provider Active S tart: January 11, 2025 End: January 11, 2025 Team Status: Active Member Role/Relationship Status Nancy Grace MD Primary Care Provider Active St art: January 11, 2025 Ashlee RODRIGUEZ, PA Referring Provider Active Start: January 11, 2025 Ashlee RODRIGUEZ, PA Other Provider Active Start: January 11, 2025 Dr. Destin Harvey MD Attending Provider Active S tart: January 11, 2025 Team Status: Inactive Member Role/Relationship Status Nancy Grace MD Primary Care Provider Active St art: January 15, 2025 End: January 15, 2025 Dr. Stefany Norwood MD Attending Provider Active Start: January 15, 2025 End: January 15, 2025 Dr. Destin Harvey MD Referring Provider Active S tart: January 15, 2025 End: January 15, 2025 Team Status: Inactive Member Role/Relationship Status Nancy Grace MD Primary Care Provider Active St art: January 24, 2025 End: January 24, 2025 Cheli Grace MD Referring Provider Active Start : January 24, 2025 End: January 24, 2025 Dr. Felipe Trivedi MD Attending Provider Active S tart: January 24, 2025 End: January 24, 2025 Team Status: Inactive Member Role/Relationship Status Nancy Grace MD Primary Care Provider Active St art: February 21, 2025 End: February 21, 2025 Cheli Grace MD Referring Provider Active Start : February 21, 2025 End: February 21, 2025 Dr. Felipe Trivedi MD Attending Provider Active S tart: February 21, 2025 End: February 21, 2025 Team Status: Inactive Member Role/Relationship Status Nancy Grace MD Primary Care Provider Active St art: March 21, 2025 End: March 21, 2025 Cheli Grace MD Referring Provider Active Start : March 21, 2025 End: March 21, 2025 Dr. Felipe Trivedi MD Attending Provider Active S tart: March 21, 2025 End: March 21, 2025 Team Status: Inactive Member Role/Relationship Status Nancy Grace MD Primary Care Provider Active St art: April 11, 2025 End: April 11, 2025 Dr. Destin Harvey MD Attending Provider Active S tart: April 11, 2025 End: April 11, 2025 Team Status: Inactive Member Role/Relationship Status Nancy Grace MD Primary Care Provider Active St art: April 18, 2025 End: April 18, 2025 Cheli Grace MD Referring Provider Active Start : April 18, 2025 End: April 18, 2025 Dr. Felipe Trivedi MD Attending Provider Active S tart: April 18, 2025 End: April 18, 2025 Team Status: Active Member Role/Relationship Status Nancy Grace MD Primary Care Provider Active St art: April 18, 2025 Dr. Felipe Trivedi MD Attending Provider Active S tart: April 18, 2025 Dr. Felipe Trivedi MD Referring Provider Active S tart: April 18, 2025 Team Status: Inactive Member Role/Relationship Status Nancy Grace MD Primary Care Provider Active St art: January 24, 2025 End: January 24, 2025 Cheli Grace MD Referring Provider Active Start : January 24, 2025 End: January 24, 2025 Dr. Felipe Trivedi MD Attending Provider Active S tart: January 24, 2025 End: January 24, 2025 Team Status: Inactive Member Role/Relationship Status Nancy Grace MD Primary Care Provider Active St art: February 21, 2025 End: February 21, 2025 Cheli Grace MD Referring Provider Active Start : February 21, 2025 End: February 21, 2025 Dr. Felipe Trivedi MD Attending Provider Active S tart: February 21, 2025 End: February 21, 2025 Team Status: Inactive Member Role/Relationship Status Nancy Grace MD Primary Care Provider Active St art: March 21, 2025 End: March 21, 2025 Cheli Grace MD Referring Provider Active Start : March 21, 2025 End: March 21, 2025 Dr. Felipe Trivedi MD Attending Provider Active S tart: March 21, 2025 End: March 21, 2025 Team Status: Inactive Member Role/Relationship Status Nancy Grace MD Primary Care Provider Active St art: April 11, 2025 End: April 11, 2025 Dr. Destin Harvey MD Attending Provider Active S tart: April 11, 2025 End: April 11, 2025 Team Status: Inactive Member Role/Relationship Status Nancy Grace MD Primary Care Provider Active St art: April 18, 2025 End: April 18, 2025 Cheli Grace MD Referring Provider Active Start : April 18, 2025 End: April 18, 2025 Dr. Felipe Trivedi MD Attending Provider Active S tart: April 18, 2025 End: April 18, 2025 Team Status: Inactive Member Role/Relationship Status Nancy Grace MD Primary Care Provider Active St art: May 16, 2025 End: May 16, 2025 Cheli Grace MD Referring Provider Active Start : May 16, 2025 End: May 16, 2025 Dr. Felipe Trivedi MD Attending Provider Active S tart: May 16, 2025 End: May 16, 2025 Team Status: Active Member Role/Relationship Status Nancy Grace MD Primary Care Provider Active St art: May 16, 2025 Dr. Felipe Trivedi MD Attending Provider Active S tart: May 16, 2025 Dr. Felipe Trivedi MD Referring Provider Active S tart: May 16, 2025 Team Status: Inactive Member Role/Relationship Status Nancy Grace MD Primary Care Provider Active St art: February 21, 2025 End: February 21, 2025 Cheli Grace MD Referring Provider Active Start : February 21, 2025 End: February 21, 2025 Dr. Felipe Trivedi MD Attending Provider Active S tart: February 21, 2025 End: February 21, 2025 Team Status: Inactive Member Role/Relationship Status Nancy Grace MD Primary Care Provider Active St art: March 21, 2025 End: March 21, 2025 Cheli Grace MD Referring Provider Active Start : March 21, 2025 End: March 21, 2025 Dr. Felipe Trivedi MD Attending Provider Active S tart: March 21, 2025 End: March 21, 2025 Team Status: Inactive Member Role/Relationship Status Nancy Grace MD Primary Care Provider Active St art: April 11, 2025 End: April 11, 2025 Dr. Destin Harvey MD Attending Provider Active S tart: April 11, 2025 End: April 11, 2025 Team Status: Inactive Member Role/Relationship Status Nancy Grace MD Primary Care Provider Active St art: April 18, 2025 End: April 18, 2025 Cheli Grace MD Referring Provider Active Start : April 18, 2025 End: April 18, 2025 Dr. Felipe Trivedi MD Attending Provider Active S tart: April 18, 2025 End: April 18, 2025 Team Status: Inactive Member Role/Relationship Status Nancy Grace MD Primary Care Provider Active St art: May 16, 2025 End: May 16, 2025 Cheli Grace MD Referring Provider Active Start : May 16, 2025 End: May 16, 2025 Dr. Felipe Trivedi MD Attending Provider Active S tart: May 16, 2025 End: May 16, 2025 Team Status: Inactive Member Role/Relationship Status Nancy Grace MD Primary Care Provider Active St art: June 13, 2025 End: June 13, 2025 Cheli Grace MD Referring Provider Active Start : June 13, 2025 End: June 13, 2025 Yolanda Bansal PHARMACEUTICAL SCIENTIST, PHARMACEUTICAL SCIENTIST-C Attending Provider Active Start: June 13, 2025 End: June 13, 2025 Team Status: Active Member Role/Relationship Status Nancy Grace MD Primary Care Provider Active St art: June 13, 2025 Dr. Felipe Trivedi MD Attending Provider Active S tart: June 13, 2025 Dr. Felipe Trivedi MD Referring Provider Active S tart: June 13, 2025 Team Status: Inactive Member Role/Relationship Status Nancy Grace MD Primary Care Provider Active St art: March 21, 2025 End: March 21, 2025 Cheli Grace MD Referring Provider Active Start : March 21, 2025 End: March 21, 2025 Dr. Felipe Trivedi MD Attending Provider Active S tart: March 21, 2025 End: March 21, 2025 Team Status: Inactive Member Role/Relationship Status Nancy Grace MD Primary Care Provider Active St art: April 11, 2025 End: April 11, 2025 Dr. Destin Harvey MD Attending Provider Active S tart: April 11, 2025 End: April 11, 2025 Team Status: Inactive Member Role/Relationship Status Nancy Grace MD Primary Care Provider Active St art: April 18, 2025 End: April 18, 2025 Cheli Grace MD Referring Provider Active Start : April 18, 2025 End: April 18, 2025 Dr. Felipe Trivedi MD Attending Provider Active S tart: April 18, 2025 End: April 18, 2025 Team Status: Inactive Member Role/Relationship Status Nancy Grace MD Primary Care Provider Active St art: May 16, 2025 End: May 16, 2025 Cheli Grace MD Referring Provider Active Start : May 16, 2025 End: May 16, 2025 Dr. Felipe Trivedi MD Attending Provider Active S tart: May 16, 2025 End: May 16, 2025 Team Status: Inactive Member Role/Relationship Status Nancy Grace MD Primary Care Provider Active St art: June 13, 2025 End: June 13, 2025 Cheli Grace MD Referring Provider Active Start : June 13, 2025 End: June 13, 2025 Yolanda Bansal PHARMACEUTICAL SCIENTIST, PHARMACEUTICAL SCIENTIST-C Attending Provider Active Start: June 13, 2025 End: June 13, 2025 Team Status: Active Member Role/Relationship Status Nancy Grace MD Primary Care Provider Active St art: June 13, 2025 Dr. Felipe Trivedi MD Attending Provider Active S tart: June 13, 2025 Dr. Felipe Trivedi MD Referring Provider Active S tart: June 13, 2025 Team Status: Active Member Role/Relationship Status Nancy Grace MD Primary Care Provider Active St art: July 02, 2025 Cheli Grace MD Referring Provider Active Start : July 02, 2025 Katie Mariscal Attending Provider Active Start: Ruel tobias 2024 Team Status: Inactive Member Role/Relationship Status Nancy Grace MD Primary Care Provider Active St art: July 02, 2025 End: July 02, 2025 Cheli Grace MD Referring Provider Active Start : July 02, 2025 End: July 02, 2025 Haile Martin PHARMACEUTICAL SCIENTIST, PHARMACEUTICAL SCIENTIST-C Attending Provider Active S tart: July 02, 2025 End: July 02, 2025 Team Status: Inactive Member Role/Relationship Status Nancy Grace MD Primary Care Provider Active St art: July 02, 2025 End: July 02, 2025 Cheli Grace MD Referring Provider Active Start : July 02, 2025 End: July 02, 2025 Katie Mariscal Attending Provider Active Start: S shanicedavid 2024 End: July 02, 2025 Team Status: Inactive Member Role/Relationship Status Nancy Grace MD Primary Care Provider Active St art: July 02, 2025 End: July 02, 2025 Dr. Destin Harvey MD Attending Provider Active S tart: July 02, 2025 End: July 02, 2025 Team Status: Inactive Member Role/Relationship Status Nancy Grace MD Primary Care Provider Active St art: July 02, 2025 End: July 02, 2025 Cheli Grace MD Referring Provider Active Start : July 02, 2025 End: July 02, 2025 Katie Mariscal Attending Provider Active Start: S jatinder 2024 End: July 02, 2025 Team Status: Inactive Member Role/Relationship Status Nancy Grace MD Primary Care Provider Active St art: July 02, 2025 End: July 02, 2025 Cheli Grace MD Referring Provider Active Start : July 02, 2025 End: July 02, 2025 Haile Martin PHARMACEUTICAL SCIENTIST, PHARMACEUTICAL SCIENTIST-C Attending Provider Active S tart: July 02, 2025 End: July 02, 2025 Goals (unrecognized section and content) Goals may be documented in a n alternate sectionGoals may be documented in an alternate sectionGoals may be documented in an alternate sectionGoals may be documented in an alternate sectionGoals may be documented in an alternate sectionGoals may be documented in an alternate sectionGoals may be documented in an alternate sectionGoals may be documented in an alternate sectionGoals may be documented in an alternate sectionGoals may be documented in an alternate sectionGoals may be documented in an alternate sectionGoals may be documented in an alternate sectionGoals may be documented in an alternate sectionGoals may be documented in an alternate sectionGoals may be documented in an alternate sectionGoals may be documented in an alternate section FOR RECORDS PERTAINING TO PATIENTS WHO ARE [...] BE BASED ON THE PRIMARY CLINICAL RECORDS. [facility]. provides no warranty or guarantee of the accuracy or completeness of information in this document.
[2025-07-10 04:56] LABS: Anion Gap 14 (5-15); BUN 54 mg/dL (4-19); BUN/Creat Ratio 23.2 RATIO (10-20); Calcium,Total 9.4 mg/dL (7.6-11.0); Carbon Dioxide 15.0 mmol/L (21.0-32.0); Chloride 116 mmol/L (98-108); Estimated Creatinine Clearance 20.89 ml/min (50-250); Glucose 126 mg/dL (70-99); Magnesium 2.0 mg/dL (1.5-2.2); Potassium 3.7 mmol/L (3.3-5.1)
[2025-07-10 05:00] VITALS: BP 119/77; PULSE 60; RESP 22; O2SAT 94
[2025-07-10 05:07] LABS: Pro- Brain NATRIURETIC PEPTIDE 51104 pg/mL (<=1800)
--- NOTE | 2025-07-10 05:12 | EDS_ITS ---
HPI History of Present Illness Chief Complaint: Shortness of Breath Informant: patient and spouse/S.O. Narrative Narrative: Patient is an 89-year-old male with past medical history of congestive heart failure as well as ischemic cardiomyopathy and sick sinus syndrome requiring pacemaker placement. He states that he takes Lasix intermittently secondary to his CHF but has not taken it for multiple days. He reports he was sleeping and he states he was lying flat but on his side and awoke with sensation of shortness of breath and chest fullness/discomfort. He states he also has noticed that he has had increasing swelling to his legs. He states that last ti me the symptoms occurred were roughly 1 year ago and he needed admitted to the hospital at that time. Therefore with concern for CHF exacerbation and possible need for admission he presents for evaluation [facility] Medical History Chest pain Iron deficiency anemia Anemia in chronic kidney disease (CKD) Atrial flutter Chronic kidney disease (CKD) Kidney disease, chronic, stage III (GFR 30-59 ml/min) Hypoxemia Pneumonia of both lower lobes GERD (gastroesophageal reflux disease) COVID-19 Ischemic cardiomyopathy Carotid artery disease Chronic kidney disease (CKD) Paroxysmal atrial fibrillation Sick sinus syndrome Atherosclerosis of [place] coronary artery of [place] heart without angina pectoris Brain bleed Congestive heart failure Acute electrocardiogram changes Home Medications ?Medication ?Instructions ?Recorded ?Last Taken ?Type allopurinol 100 mg tablet 100 mg PO BID Gout 11/24/18 11/27/23 History atorvastatin 40 mg tablet 40 mg PO QHS Cholesterol 11/26/23 History albuterol sulfate 90 mcg/actuation 2 puff inhalation Q 4H PRN 12/25/20 Unknown Rx aerosol inhaler shortness of breath or wheez ing #8.5 grams cholecalciferol (vitamin D3) 50 50 mcg PO DAILY bone h ealth #1 TAB 03/09/22 11/17/23 Rx mcg (2,000 unit) tablet coenzyme Q10 100 mg tablet 100 mg PO DAILY general 11/1511/16/23 History ascorbic acid (vitamin C) 500 mg 500 mg PO DAILY 05/31 Unknown History tablet mecobalamin (vitamin B12) 1,000 1,000 mcg sublingual D AILY 05/31/24 Unknown History mcg disintegrating tablet,sublingual pyridoxine (vitamin B6) 100 mg 100 mg PO DAILY 4 Unknown History tablet zinc gluconate 50 mg tablet 50 mg PO DAILY 05/31/24 Un known History carvedilol 25 mg tablet 25 mg PO QHS 07/15/24 Unknow n History ferrous sulfate 325 mg (65 mg 325 mg PO DAILY 07/15/24 Unknown History iron) tablet,delayed release apixaban 2.5 mg tablet 2.5 mg PO BID Blood thinner #180 12/04/24 Unknown Rx tabs sacubitril 49 mg-valsartan 51 mg 1 tab PO BID #180 tab s 12/04/24 Unknown Rx tablet (Entresto) nitroglycerin 0.4 mg sublingual 0.4 mg sublingual Q5M PRN 12/14/24 Unknown Rx tablet Cardiac/Chest Pain #30 tabs furosemide 40 mg tablet 40 mg PO DAILY PRN edema Unknown History potassium chloride 20 mEq 20 meq PO QDAY PRN with lasi x 02/21/25 Unknown History tablet,extended release multivitamin 1 tab PO QDAY 03/21/25 Unkno wn History Allergy/AdvReac Type Severity Reaction Status Date / Time levofloxacin (From Levaquin) Allergy Unknown unknown Verified 07/10/25 04:07 Family History Father CAD (coronary artery disease) Mother Heart disease Hypertension Heart failure Surgical History History of craniotomy History of permanent cardiac pacemaker placement History of coronary artery bypass graft x 3 History of brain surgery Social History household members: spouse Smoking Status: Never smoker alcohol intake: never substance use type: does not use caffeine: No ROS ROS ED Constitutional Constitutional ED: Denies chills or fever(s) Eyes Eyes: Denies change in vision ENT ENT ED: Reports rhinorrhea; Denies sore throat Cardiovascular Cardiovascular: Reports chest pain and orthopnea; Denies palpitations or racing heartbeat Respiratory/Chest Respiratory/Chest: Reports dyspnea, dyspnea on exertion and orthopnea; Denies cough Gastrointestinal Gastrointestinal: Denies abdominal pain, diarrhea, nausea or vomiting Musculoskeletal Musculoskeletal: Reports other Details: Positive leg swelling ; Denies myalgias Integumentary Denies rash Neurologic Neurologic: Denies headache(s) Hematologic/Lymphatic Hematologic/Lymphatic: Reports easy bleeding and easy bruising Allergic/Immunologic Allergic/Immunologic ED: Denies mouth swelling or tongue swelling EXAM Physical Exam Const Vital Signs: 07/10/25 04:07 07/10/25 04:10 07/10/25 04:16 Temperature 97.4 F L Temperature Source Oral Pulse Rate 60 Respiratory Rate 20 H Respiratory Effort Short of Breath Labored Short of Breath Labored Respiratory Depth Shallow Respiratory Pattern Tachypnea Tachypnea Blood Pressure 123/68 H Blood Pressure Mean 86 Pulse Ox 94 Oxygen Delivery Method Room Air Room Air 07/10/25 05:00 07/10/25 06:00 07/10/25 06:42 Temperature 98 F Temperature Source Pulse Rate 60 60 82 Respiratory Rate 22 H 22 H 18 Respiratory Effort Respiratory Depth Respiratory Pattern Blood Pressure 119/77 136/71 H 136/74 H Blood Pressure Mean 91 92 94 Pulse Ox 94 94 99 Oxygen Delivery Method Room Air Room Air Positive well nourished and well developed Constitutional Narrative: Patient is in mild to moderate respiratory distress with tachypnea and accessory muscle use. General Appearance ED: well developed and pallor HEENT HEENT Narrative: Normocephalic atraumatic No tongue or lip swelling no oral lesions no airway edema or compromise; no secondary findings in the posterior pharynx to suggest infection Eyes PERRL and EOMs intact bilaterally General Eye ED: Negative for scleral icterus Neck supple Neck Narrative: Mild JVD is noted Chest Wall palpation of chest normal Chest Narrative: No bony deformity or subcutaneous emphysema noted Resp Resp Narrative: Patient is in mild respiratory distress with tachypnea and accessory muscle use. There is slight dyspnea with speech as well. Breath sounds are diminished throughout with crackles noted in the bilateral bases. Cardio regular rate and regular rhythm GI normal to inspection, nondistended, normoactive bowel sounds, non-tender, non- distended and no masses GI Narrative: No voluntary guarding or rigidity or pulsatile mass No fluid wave noted Auscultation: normoactive bowel sounds Palpation: soft Extremity Extremity Narrative: +2-3 pitting edema to the bilateral lower extremities that is equal and symmetric Negative Homans' sign bilaterally Neuro oriented x3, CN's II-XII intact bilaterally and no sensory deficits noted Sensorium / Orientation: alert Psych mental status grossly normal Skin no rashes or lesions noted Skin Narrative: Skin is pale in color but capillary refill remains less than 3 seconds General Skin Exam: pallor; Negative for jaundice MDM MDM MDM Narrative Medical decision making narrative: Patient arrived to the ER with stable vitals. His pulse ox was in the mid 90s on room air but he did have increased work of breathing. Chart review revealed that roughly 1 year ago he was seen in the ER for similar symptoms and needed admitted for diuresis. With concern for CHF exacerbation versus acute blood loss anemia versus potential pneumonia or acute on chronic kidney injury basic labs were obtained. Patient's hemoglobin is low at 10.3 but chart review reveals this is near baseline. He has chronic kidney disease and his creatinine today is 2.3 but chart review also reveals this is near his baseline. Otherwise there is no clinically significant [place] abnormalities such as hypo or hyperkalemia or hypomagnesemia. Chest x-ray obtained today revealed slight worsening of CHF when compared to 8 days ago. Secondary to this he was given a 60 mg IV dose of Lasix. He was washed in the ER for a little over an hour after receiving the Lasix and had good diuresis. He reports that he now feels much better and his pulse ox remains in the mid 90s on room air. He was then ambulated and was able to walk with a steady gait at a quick pace without any s hortness of breath. Therefore at this time he does not have acute on chronic kidney injury [place] abnormality or acute blood loss anemia. His EKG shows atrial flutter with ventricular paced beats as well which is consistent with his previous EKGs. After diuresis his symptoms have improved he can walk without hypoxia and reports feeling better overall. Therefore I do not feel there is need for admission for IV diuresis but recommend he continue once daily Lasix for the next few days to ensure there is no rebound of symptoms. Patient and are agreeable to this plan of care and as vitals are stable he is not hypoxic or requiring supplemental oxygen and he has had resolution of his symptoms he is otherwise safe for discharge History & Record Review Discussion w/independent historian: Patient and Significant other Additional record(s) reviewed:: Prior ED visit and Prior labs Lab Data Attestation: I reviewed the patient's lab results. Labs: Laboratory Results - last 24 hr 07/10/25 04:12 WBC 5.1 RBC 3.00 L Hgb 10.3 L Hct 31.1 L MCV 103.7 H MCH 34.3 H MCHC 33.1 RDW Std Deviation 65.7 H RDW Coeff of [place] 17.4 H Plt Count 122 L MPV 10.8 Immature Gran % (Auto) 0.200 Neut % (Auto) 68.6 Lymph % (Auto) 17.5 L [place] % (Auto) 10.0 Eos % (Auto) 3.1 Baso % (Auto) 0.6 Absolute Neuts (auto) 3.5 Absolute Lymphs (auto) 0.89 Nucleated RBC % 0 Plt Morphology Comment LARGE Polychromasia RARE Anisocytosis 1+ Ovalocytes RARE Schistocytes RARE Sodium 145 Potassium 3.7 Chloride 116 H Carbon Dioxide 15.0 L Anion Gap 14 BUN 54 H Creatinine 2.33 H Estim Creat Clear Calc 20.89 L Est GFR (MDRD) Non-Af 26 L BUN/Creatinine Ratio 23.2 H Glucose 126 H Calcium 9.4 Magn[place] 2.0 [place] [address] H Radiography Diagnostic Testing: Clinical Impression(s) from Imaging Studies Chest X-Ray 07/10/25 04:36 IMPRESSION: Mild increase in central pulmonary venous congestion. Mild increase in bilateral basilar atelectatic pulmonary changes. Unremarkable median sternotomy wires. AICD is in good position. Unchanged minimal right pleural effusion. Unchanged passive atelectatic airspace disease in the right lower lobe. Enlarged cardiac silhouette. Reading Location: [place] [id number] Chest x-ray as interpreted by the emergency medicine physician reveals cardiomegaly with pulmonary vascular congestion and bibasilar atelectasis. These findings are comparable to July 02 but slightly increased in severity. Discharge Plan Triage Chief Complaint: Shortness of Breath ED Provider: Derian Perla Dx/Rx/DC Orders Clinical Impression: Congestive heart failure (CHF), Ischemic cardiomyopathy, Hyperlipidemia, Pacemaker, Chronic kidney disease Instructions: ED Heart Failure, Congestive (CHF) Prescriptions: No Action albuterol sulfate 90 mcg/actuation HFA aerosol inhaler 2 puff INHALATION Q4H PRN (Reason: shortness of breath or wheezing) Qty: 8.5 6RF Rx Instructions: administer with spacer coenzyme Q10 100 mg tablet 100 mg PO DAILY Rx Instructions: pt takes in the am ascorbic acid (vitamin C) 500 mg tablet 500 mg PO DAILY zinc gluconate 50 mg tablet 50 mg PO DAILY pyridoxine (vitamin B6) 100 mg tablet 100 mg PO DAILY mecobalamin (vitamin B12) 1,000 mcg tablet,disintegrating 1,000 mcg sublingual DAILY Patient Comments: take one tablet 2 days (wed and ) Rx Instructions: place tablet under tongue and allow to dissolve for at least30 secs before swallowing potassium chloride 20 mEq tablet extended release 20 meq PO QDAY PRN (Reason: with lasix) furosemide 40 mg tablet 40 mg PO DAILY PRN (Reason: edema) multivitamin Tablet 1 tab PO QDAY atorvastatin 40 MG tablet 40 mg PO QHS allopurinol 100 MG tablet 100 mg PO BID ferrous sulfate 325 mg (65 mg iron) tablet,delayed release (DR/EC) 325 mg PO DAILY carvedilol 25 mg tablet 25 mg PO QHS Rx Instructions: must administer with a meal/food cholecalciferol (vitamin D3) 50 mcg (2,000 unit) tablet 50 mcg PO DAILY Qty: 1 0RF Entresto 49-51 mg tablet 1 tab PO BID Qty: 180 3RF apixaban 2.5 mg tablet 2.5 mg PO BID Qty: 180 4RF nitroglycerin 0.4 mg tablet, sublingual 0.4 mg sublingual Q5M PRN (Reason: Cardiac/Chest Pain) Qty: 30 2RF Primary Care Provider: Cheli Grace Referrals: Cheli Grace MD [Primary Care Provider] - Destin Harvey MD [Med Staff - Active Staff] - Activity Restrictions/Additional Instructions: Beginning Wednesday take your Lasix once a day and do this Wednesday and Wednesday. If you still have some leg swelling or shortness of breath you may take the Lasix once a day on Wednesday and Wednesday as well. Please also try to sleep in a more upright position to help prevent shortness of breath. Continue all of your other medications as directed by your doctor. If you feel like your symptoms are worsening or you have any further concerns return to the ER for repeat evaluation. Print Language: Frisian Disposition Disposition: Home, Self Care
[2025-07-10 05:44] LABS: Differential Indicated SCAN CRITERIA MET
[2025-07-10 05:51] LABS: Schistocytes RARE
[2025-07-10 05:53] LABS: Anisocytosis 1+
[2025-07-10 05:54] LABS: Polychromasia RARE
[2025-07-10 06:00] VITALS: BP 136/71; PULSE 60; RESP 22; O2SAT 94
[2025-07-10 06:42] VITALS: BP 136/74; PULSE 82; RESP 18; TEMP 36.6; O2SAT 99
== END 2025-07-10 06:49 | disposition home or self-care (01) ==
PROVIDERS: Emergency Provider Emergency Medicine; PCP Family Medicine; Visit Provider Emergency Medicine
DX: R06.02 Shortness of breath (principal); I50.9 Heart failure, unspecified; I48.0 Paroxysmal atrial fibrillation; N18.30 Chronic kidney disease, stage 3 unspecified; I25.5 Ischemic cardiomyopathy; Z95.0 Presence of cardiac pacemaker; E78.5 Hyperlipidemia, unspecified; I25.10 Atherosclerotic heart disease of native coronary artery without angina pectoris; Z79.899 Other long term (current) drug therapy; Z79.01 Long term (current) use of anticoagulants
CPT/HCPCS: 71046; 80048; 83735; 83880; 85025; 93005; 96374; 99284; A4216; J1938

== ENCOUNTER 2025-07-23 09:15 | Day surgery (SDC) | payer MEDICARE, OTHER, SELFPAY ==
--- NOTE | 2025-07-02 15:01 | RAD_ITS ---
PROCEDURE: CHEST PA AND LATERAL 07/02/2025 REASON FOR EXAM: FOR PPM GENERATOR CHANGE TECHNIQUE: Procedure Code: RADCXR Modality: DX Procedure: CHEST PA AND LATERAL COMPARISON: Chest x-ray studies dated 07/15/2024, 11/29/2023, and 11/27/2023 FINDINGS: Hardware: Median sternotomy wires and vascular clips are noted. Cardiac pacemaker device is identified in the left pectoral region with intact leads in satisfactory position. Heart: Heart is mildly enlarged however similar in size and configuration when compared to the prior studies. Arteriosclerotic vascular disease of the aorta is noted. Mediastinum: Pulmonary vasculature is engorged centrally. There is prominence in the perihilar regions bilaterally which is similar when compared to the prior exam. Trachea is midline. Lungs: There is a stable small right pleural effusion and blunting of the left costophrenic angle which may be due to a small trace pleural effusion or pleural parenchymal scarring. There is increased opacification identified in the right lower lobe which is similar when compared to the prior exam and may represent atelectasis or parenchymal scarring. Remaining lung cowan are clear. There is elevation of the right hemidiaphragm which is similar when compared to the prior exam and may represent eventration or phrenic nerve paralysis. Bones:Diffuse osteopenia of the bony thorax is seen. There is increased kyphotic curvature of the thoracic spine. Mild spondylosis of the thoracic spine is noted. RAD/Chest PA and Lateral IMPRESSION: Chest x-ray findings compatible with pulmonary edema which may be secondary to CHF. Reading Location: [id number]
[2025-07-02 15:17] LABS: Mucous, Urine 0 SEEN /hpf (<or=2+)
[2025-07-02 15:51] LABS: Hematocrit 33.2 % (40-54); Hemoglobin 10.8 g/dL (13.0-16.5); Mean Corp Hgb Conc 32.5 g/dL (32-36); Mean Corpuscular Volume 104.4 fL (80-94); Mean Platelet Vol. 11.0 fl (6.2-12.0); Platelet Count 130 K/mm3 (150-450); RBC Distribution Width CV 16.4 % (11.6-14.6); RBC Distribution Width SD 61.2 fl (35.1-43.9); Red Blood Count 3.18 M/mm3 (4.6-6.2); White Blood Count 5.4 K/mm3 (4.4-11.0)
[2025-07-02 16:18] LABS: Anion Gap 14 (5-15); BUN 49 mg/dL (4-19); BUN/Creat Ratio 22.2 RATIO (10-20); Calcium,Total 9.7 mg/dL (7.6-11.0); Carbon Dioxide 16.8 mmol/L (21.0-32.0); Chloride 112 mmol/L (98-108); Glucose 120 mg/dL (70-99); Potassium 3.5 mmol/L (3.3-5.1)
[2025-07-02 16:20] LABS: Prothrombin Time (Protime)PT. 20.0 SECONDS (11.7-14.9)
[2025-07-02 20:15] LABS: Color, Urine Yellow (Yellow); Glucose, Dipstick Normal (Normal); Ketone-Dipstick Negative (Negative); Leukocyte Esterase-Dipstick Negative /ul (Negative); Nitrite-Dipstick Negative (Negative); Occult Blood-Urine Negative /ul (Negative); Protein-Dipstick 100 mg/dl (Negative); Specific Gravity, Urine 1.020 (1.002-1.030); Urine Bilirubin Dipstick Negative (Negative)
[2025-07-02 20:54] LABS: Red Blood Cells-Urine 0-5 SEEN /hpf (0-5); Squamous Epithelial Cells - UA 0-5 SEEN /hpf (0-5)
[2025-07-20 09:42] VITALS: BMI 20.9
--- NOTE | 2025-07-23 11:47 | CL.IE_ITS ---
Patient: DARCY COVARRUBIAS Study Date: 07/23/2025 Performing: Destin Harvey MD : [id number] Age: 89 Gender: male PROCEDURES PERFORMED [id number]-([id number])BATTERY REMOVAL+REPLACEMENT PACER-DUAL LEAD INDICATIONS Sinoatrial node dysfunction/Sick sinus syndrome PROCEDURE DETAILS The patient was brought to the Catheterization Lab in the postabsorptive nonsedated state. Informed consent was obtained prior to the procedure. Incision was made to the left upper chest. Local anesthetic was given subcutaneously to the left upper chest area with Lidocaine 2%. PPM generator was removed. Device pocket was irrigated with antibiotic. PPM generator was attached to the lead(s) and inserted into the pocket included in a tyrx pouch. Skin closure was completed. The patient tolerated the procedure well. 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
== END 2025-07-23 13:10 | disposition home or self-care (01) ==
PROVIDERS: Nurse Practitioner Family; PCP Family Medicine; Referring Provider Internal Medicine Cardiovascular Disease; Visit Provider Internal Medicine Cardiovascular Disease
DX: Z45.02 Encounter for adjustment and management of automatic implantable cardiac defibrillator (principal); I50.9 Heart failure, unspecified; I13.0 Hypertensive heart and chronic kidney disease with heart failure and stage 1 through stage 4 chronic kidney disease, or unspecified chronic kidney disease; I48.0 Paroxysmal atrial fibrillation; I49.5 Sick sinus syndrome; N18.30 Chronic kidney disease, stage 3 unspecified; I25.10 Atherosclerotic heart disease of native coronary artery without angina pectoris; Z95.1 Presence of aortocoronary bypass graft; E78.5 Hyperlipidemia, unspecified; Z79.01 Long term (current) use of anticoagulants; Z79.899 Other long term (current) drug therapy; D63.1 Anemia in chronic kidney disease; K21.9 Gastro-esophageal reflux disease without esophagitis; I25.5 Ischemic cardiomyopathy
CPT/HCPCS: 33228; 36415; 71046; 80048; 81001; 85027; 85610; 99152; 99153; A4216

== ENCOUNTER → 2025-07-25 | Outpatient (CLI) | payer MEDICARE, OTHER, SELFPAY ==
[2025-07-25 15:47] LABS: Hematocrit 30.7 % (40-54); Hemoglobin 10.0 g/dL (13.0-16.5); Mean Corp Hgb Conc 32.6 g/dL (32-36); Mean Corpuscular Volume 104.8 fL (80-94); Mean Platelet Vol. 11.4 fl (6.2-12.0); Platelet Count 122 K/mm3 (150-450); RBC Distribution Width CV 16.7 % (11.6-14.6); RBC Distribution Width SD 64.8 fl (35.1-43.9); Red Blood Count 2.93 M/mm3 (4.6-6.2); White Blood Count 4.6 K/mm3 (4.4-11.0)
[2025-07-25 15:57] LABS: Creatinine, Urine (random) 112.00 mg/dL (39.00-259.00); Protein, Urine (Random) 39.4 mg/dL (0.0-12.0); Protein:Creat Ratio 352 mg/g CRE (0-200)
[2025-07-25 16:14] LABS: Albumin, Serum 4.3 g/dL (3.4-4.8); Anion Gap 15 (5-15); BUN 54 mg/dL (4-19); BUN/Creat Ratio 24.2 RATIO (10-20); Calcium,Total 9.6 mg/dL (7.6-11.0); Carbon Dioxide 18.9 mmol/L (21.0-32.0); Chloride 113 mmol/L (98-108); Glucose 101 mg/dL (70-99); Potassium 3.4 mmol/L (3.3-5.1); Vitamin D,25 Hydroxy 49.2 ng/mL (30-100)
[2025-07-25 16:35] LABS: PTHIN 103 pg/mL (11-61)
== END | disposition home or self-care (01) ==
PROVIDERS: PCP Family Medicine; Referring Provider Nurse Practitioner Family; Visit Provider Nurse Practitioner Family
DX: N18.32 Chronic kidney disease, stage 3b (principal); D64.9 Anemia, unspecified
CPT/HCPCS: 36415; 80069; 82306; 82570; 83970; 84156; 85027

== ENCOUNTER → 2025-08-24 | Outpatient (CLI) | payer MEDICARE, OTHER, SELFPAY ==
--- NOTE | 2025-08-24 14:08 | RAD_ITS ---
PROCEDURE: CHEST PA AND LATERAL 08/24/2025 REASON FOR EXAM: SHORTNESS OF BREATH TECHNIQUE: Procedure Code: RADCXR Modality: DX Procedure: CHEST PA AND LATERAL COMPARISON: 10 July 2025 FINDINGS: The lungs are adequately aerated bilaterally with moderate right pleural effusion with bibasilar atelectatic changes. Coarse pulmonary markings bilaterally with central hilar fullness. Atheromatous changes of the aorta with cardiomegaly. Left-sided cardiac pacemaker with multiple median sternotomy wires. Degenerative changes of the shoulders and spine. RAD/Chest PA and Lateral IMPRESSION: Moderate right pleural effusion with probable central venous congestion in the setting of chronic lung disease. Reading Location: [place] [address]
[2025-08-24 18:18] LABS: Pro- Brain NATRIURETIC PEPTIDE 48119 pg/mL (<=1800)
== END | disposition home or self-care (01) ==
PROVIDERS: PCP Family Medicine; Referring Provider Family Medicine; Visit Provider Family Medicine
DX: R06.02 Shortness of breath (principal); R06.89 Other abnormalities of breathing
CPT/HCPCS: 36415; 71046; 83880

== ENCOUNTER 2025-08-29 11:42 | Inpatient (IN) | payer MEDICARE, OTHER, SELFPAY ==
[2025-08-29] VITALS (12 sets, daily range): BP systolic 103–199; BP diastolic 59–99; PULSE 62–82; RESP 16–25; TEMP 36.4–36.6; O2SAT 92–100; BMI 19.6
--- NOTE | 2025-08-29 12:40 | RAD_ITS ---
PROCEDURE: RAD/Chest 1 View (Portable)
[2025-08-29 12:55] LABS: Hematocrit 35.4 % (40-54); Hemoglobin 11.2 g/dL (13.0-16.5); Immature Granulocytes Count 0.010 X10^3/uL (0.0-0.0); Mean Corp Hgb Conc 31.6 g/dL (32-36); Mean Corpuscular Volume 108.9 fL (80-94); Mean Platelet Vol. 11.2 fl (6.2-12.0); NRBC Flagged by Analyzer 0 % (0-5); Platelet Count 115 K/mm3 (150-450); RBC Distribution Width CV 16.0 % (11.6-14.6); RBC Distribution Width SD 63.7 fl (35.1-43.9); Red Blood Count 3.25 M/mm3 (4.6-6.2); White Blood Count 3.4 K/mm3 (4.4-11.0)
[2025-08-29 13:16] LABS: Anion Gap 15 (5-15); BUN 51 mg/dL (4-19); BUN/Creat Ratio 24.3 RATIO (10-20); Calcium,Total 9.8 mg/dL (7.6-11.0); Carbon Dioxide 18.3 mmol/L (21.0-32.0); Chloride 112 mmol/L (98-108); Glucose 97 mg/dL (70-99); Potassium 3.9 mmol/L (3.3-5.1)
--- NOTE | 2025-08-29 13:32 | ED.VIS.DYS ---
HPI History of Present Illness Chief Complaint: Shortness of Breath Informant: patient and spouse/S.O. Narrative Narrative: Patient is an 89-year-old male with a history of CHF, CKD, and anemia, presenting with dyspnea and chest pressure. Patient is accompanied by his , who is supplementing history. - Dyspnea has been ongoing for a couple of weeks, primarily occurring with exertion, but now with only light activity. -dyspnea at rest now today as well. - Denies palpitations, diaphoresis, emesis, or presyncope. - Denies orthopnea, stating she sleeps comfortably on her right side. - Reports bilateral lower extremity edema, which has been present for a while and has not necessarily worsened recently. - Reports intermittent chest pressure with light exertion, which resolves spontaneously; denies current chest pain. - Denies palpitations, diaphoresis, emesis, or presyncope. - Recently evaluated by cardiology, who recommended increasing furosemide to daily for 3-4 days, but that was recommended yesterday and has not taken furosemide today due to scheduled anemia testing. - Underwent pacemaker replacement a little over a month ago. - Recent CXR reportedly showed fluid accumulation around the lungs and heart, prompting the PCP to advise immediate ED evaluation this AM, according to . [facility] Medical History Chronic kidney disease (CKD) Atherosclerosis of [place] coronary artery of [place] heart without angina pectoris Chest pain Iron deficiency anemia Anemia in chronic kidney disease (CKD) Atrial flutter Chronic kidney disease (CKD) Kidney disease, chronic, stage III (GFR 30-59 ml/min) Hypoxemia Pneumonia of both lower lobes GERD (gastroesophageal reflux disease) COVID-19 Ischemic cardiomyopathy Carotid artery disease Paroxysmal atrial fibrillation Sick sinus syndrome Brain bleed Congestive heart failure Acute electrocardiogram changes Home Medications ?Medication ?Instructions ?Recorded ?Last Taken ?Type allopurinol 100 mg tablet 100 mg PO BID Gout 11/24/18 11/27/23 History atorvastatin 40 mg tablet 40 mg PO QHS Cholesterol 11/24/18 11/26/23 History albuterol sulfate 90 mcg/actuation 2 puff inhalation Q4H PRN 12/25/20 Unknown Rx aerosol inhaler shortness of breath or wheezing #8.5 grams cholecalciferol (vitamin D3) 50 50 mcg PO DAILY bone health #1 TAB 03/09/22 11/17/23 Rx mcg (2,000 unit) tablet coenzyme Q10 100 mg tablet 100 mg PO DAILY general 09/24/22 11/16/23 History ascorbic acid (vitamin C) 500 mg 500 mg PO DAILY 05/31/24 Unknown History tablet mecobalamin (vitamin B12) 1,000 1,000 mcg sublingual DAILY 05/31/24 Unknown History mcg disintegrating tablet,sublingual pyridoxine (vitamin B6) 100 mg 100 mg PO DAILY 05/31/24 Unknown History tablet zinc gluconate 50 mg tablet 50 mg PO DAILY 05/31/24 Unknown History carvedilol 25 mg tablet 25 mg PO QHS 07/15/24 07/23/25 History ferrous sulfate 325 mg (65 mg 325 mg PO DAILY 07/15/24 Unknown History iron) tablet,delayed release apixaban 2.5 mg tablet 2.5 mg PO BID Blood thinner #180 12/04/24 Unknown Rx tabs sacubitril 49 mg-valsartan 51 mg 1 tab PO BID #180 tabs 12/04/24 07/23/25 Rx tablet (Entresto) furosemide 40 mg tablet 40 mg PO DAILY PRN edema 02/21/25 Unknown History potassium chloride 20 mEq 20 meq PO QDAY PRN with lasix 02/21/25 Unknown History tablet,extended release multivitamin 1 tab PO QDAY 03/21/25 Unknown History nitroglycerin 0.4 mg sublingual 0.4 mg sublingual Q5M PRN 07/16/25 Unknown Rx tablet Cardiac/Chest Pain #25 tabs Allergy/AdvReac Type Severity Reaction Status Date / Time levofloxacin (From Levaquin) Allergy Unknown unknown Verified 08/29/25 11:46 Family History Father CAD (coronary artery disease) Mother Heart disease Hypertension Heart failure Surgical History History of craniotomy History of permanent cardiac pacemaker placement History of coronary artery bypass graft x 3 History of brain surgery Social History household members: spouse Smoking Status: Never smoker alcohol intake: never substance use type: does not use caffeine: No ROS ROS ED Constitutional Constitutional ED: Reports weakness; Denies chills or fever(s) Eyes Eyes: Denies change in vision or diplopia ENT ENT ED: Denies rhinorrhea or sore throat Cardiovascular Cardiovascular: Reports chest pain, leg edema and orthopnea; Denies palpitations Respiratory/Chest Respiratory/Chest: Reports dyspnea, dyspnea on exertion and orthopnea; Denies cough Gastrointestinal Gastrointestinal: Denies abdominal pain, diarrhea, nausea or vomiting Genitourinary Genitourinary ED: Denies dysuria or hematuria Musculoskeletal Musculoskeletal: Denies back pain or neck pain Integumentary Denies abscess or rash Neurologic Neurologic: Denies headache(s), paresthesias or weakness Psychiatric Psychiatric: Denies suicidal thoughts EXAM Physical Exam Const Vital Signs: 08/29/25 11:44 08/29/25 12:10 08/29/25 12:11 Temperature 97.8 F Temperature Source Temporal Pulse Rate 71 Respiratory Rate 22 H Respiratory Effort Short of Breath Labored Short of Breath Respiratory Depth Shallow Respiratory Pattern Tachypnea Blood Pressure 103/81 H Blood Pressure Mean 88 Pulse Ox 100 Oxygen Delivery Method Room Air Room Air 08/29/25 12:42 08/29/25 12:51 08/29/25 13:00 Temperature Temperature Source Pulse Rate 62 65 Respiratory Rate 16 25 H Respiratory Effort Respiratory Depth Respiratory Pattern Blood Pressure 134/79 H 132/99 H Blood Pressure Mean 97 110 Pulse Ox 93 92 Oxygen Delivery Method Room Air Room Air Room Air 08/29/25 13:55 08/29/25 14:08 Temperature Temperature Source Pulse Rate 64 62 Respiratory Rate 24 H 24 H Respiratory Effort Respiratory Depth Respiratory Pattern Blood Pressure 131/75 H 126/69 H Blood Pressure Mean 93 88 Pulse Ox 94 92 Oxygen Delivery Method Room Air Room Air Positive well nourished and well developed General Appearance ED: well developed and NAD HEENT Reports moist mucous membranes normocephalic and atraumatic Eyes PERRL and EOMs intact bilaterally Neck full ROM, no lymphadenopathy, supple and no meningeal signs Resp normal respiratory effort Resp Narrative: Diminished at the bases no respiratory distress equal bilaterally Cardio regular rate and regular rhythm GI non-tender and non-distended Auscultation: normoactive bowel sounds Palpation: soft Back/Spine no CVA tenderness General Back: other FROM Extremity normal to inspection General Extremety ED: Yes edema; Negative for pulses abnormal or tenderness General Extremity: edema bilateral lower extremity Details: moderate; Negative for pulses abnormal Neuro oriented x3, CN's II-XII intact bilaterally and no sensory deficits noted Sensorium / Orientation: awake and alert Motor Exam: general weakness Psych mental status grossly normal Skin no rashes or lesions noted and no wounds MDM MDM MDM Narrative Medical decision making narrative: Assessment: The patient is a 89-year-old male with PMH of congestive heart failure, chronic kidney disease, anemia, and a cardiac pacemaker presenting for two-week history of progressive exertional dyspnea and intermittent chest pressure. Chest X-ray shows venous congestion with a small right pleural effusion, and labs reveal creatinine 2.09 (baseline 2.21) with leukopenia 3.4. EKG demonstrates appropriate pacing without acute ischemia. Given imaging, labs, pacemaker function, and clinical exam, acute on chronic combined systolic and diastolic heart failure is the most likely cause of his respiratory insufficiency; findings are less consistent with pneumonia. Plan: - Administered IV furosemide 40 mg for diuresis. - Admit to hospitalist service for management of acute on chronic heart failure and monitoring of renal function and respiratory status given generalized weakness and debility likely linked to this acute condition. Diagnostics: - Portable chest X-ray 1 view: venous congestion, small right pleural effusion; no infiltrates suggestive of infection. Independently interpreted by Deon shetty. - Labs: creatinine 2.09 mg/dL (prior 2.21), bicarbonate 18 mEq/L, WBC 3.4 K/?L. Troponin elevated 83, strain versus transient hypoxemia, less likely acute coronary syndrome but also on the differential - EKG: ventricular paced rhythm with appropriate capture; no acute ST-T changes. Independently interpreted by Deon shetty. Consultations: - Dr. Soto, Cardiology ? reviewed case; agrees with IV furosemide and admission. - Hospitalist service ? patient accepted for inpatient admission. Lab Data Attestation: I reviewed the patient's lab results. Labs: Laboratory Results - last 24 hr 08/29/25 12:04 WBC 3.4 L RBC 3.25 L Hgb 11.2 L Hct 35.4 L MCV 108.9 H MCH 34.5 H MCHC 31.6 L RDW Std Deviation 63.7 H RDW Coeff of [place] 16.0 H Plt Count 115 L MPV 11.2 Immature Gran % (Auto) 0.300 Neut % (Auto) 64.0 Lymph % (Auto) 21.3 [place] % (Auto) 8.5 Eos % (Auto) 5.0 Baso % (Auto) 0.9 Absolute Neuts (auto) 2.2 Absolute Lymphs (auto) 0.73 L Nucleated RBC % 0 Sodium 145 Potassium 3.9 Chloride 112 H Carbon Dioxide 18.3 L Anion Gap 15 BUN 51 H Creatinine 2.09 H Est GFR (MDRD) Non-Af 30 L BUN/Creatinine Ratio 24.3 H Glucose 97 Calcium 9.8 Troponin T High Sens 83 H* [place] [address] H Radiography Diagnostic Testing: Clinical Impression(s) from Imaging Studies Chest X-Ray 08/29/25 12:40 IMPRESSION: Cardiomegaly. CHF. Right basilar atelectasis and/or infiltrate with a small right pleural effusion. Reading Location: [id number] Rhythm Strip Rhythm Strip: Paced Rate: 65 Ectopy: None EKG Initial EKG: Attestation: I personally reviewed and interpreted this EKG as follows: Interpretation: Paced (Possibly underlying A-fib) Prior EKG tracings: available for review Prior: Unchanged Management Discussion w/another healthcare provider: Hospitalist and Event Specialist [employer] Demonstrator (cardiology Brittany) Discharge Plan Dx/Rx/DC Orders Clinical Impression: Acute exacerbation of CHF (congestive heart failure), Acute respiratory insufficiency, Debility, CKD (chronic kidney disease), Elevated troponin, Chest pain, unspecified Disposition Disposition: Acute Care [facility]
[2025-08-29 14:03] LABS: Pro- Brain NATRIURETIC PEPTIDE 42646 pg/mL (<=1800); Troponin T High Sensitivity 83 ng/L (<=22)
--- NOTE | 2025-08-29 14:25 | PCM.HP.STD ---
HPI - General General Date of Admission: 08/29/25 Date of Service: 08/29/25 Chief Complaint: Shortness of breath with exertion HPI Narrative DARCY COVARRUBIAS, is a 89 M who presented to [facility] ED on 08/29/2025 with shortness of breath with exertion. Patient lives at home with his , has decent functional status at baseline. Medical history significant for chronic HFrEF due to ischemic cardiomyopathy, CAD with CABG x 3, sick sinus syndrome s/p pacemaker placement, paroxysmal A-fib on Eliquis, CKD stage IV, and chronic anemia. He follows with [facility] and hematology/oncology. He saw cardiology in the office yesterday for recent elevated NT-proBNP. Was noted that he appeared slightly volume overloaded and had a chest x-ray consistent with some congestion, but he was stable on room air at rest. He takes p.o. Lasix 40 mg only as needed and typically takes 2 to 3 days/week. They recommended taking Lasix daily for the next 3 to 4 days with further lab follow-up yesterday. However, patient continued to feel more short of breath and fluid overloaded in his legs today so he came in to the ED for further evaluation. In the ED he was satting around 92 to 94% on room air at rest, was otherwise in a ventricular paced rhythm with rate in the 60s and normotensive. Chest x-ray showed cardiomegaly with CHF and small right pleural effusion. BNP 42,000, which notably is down from BNP 48,000 on 08/24. However given his ongoing volume overload and shortness of breath exertion, he was given a dose of IV Lasix and hospitalist was contacted for admission. I saw the patient at bedside in the ED, was present. Patient was fatigued appearing but otherwise sitting back fairly comfortably in bed, conversing normally, in no acute distress. Notes that he has had minimal energy recently and notes that he has been most of his time in the chair or in bed over the past several days. Patient reports decreased appetite over the past several days as well. Denies any shortness of breath at rest but does report shortness of breath with fairly minimal exertion. Denies any recent illnesses. Denies any fevers or chills today. No other acute concerns currently. Will be admitted for further management. [facility] Medical History Chronic kidney disease (CKD) Atherosclerosis of [place] coronary artery of [place] heart without angina pectoris Chest pain Iron deficiency anemia Anemia in chronic kidney disease (CKD) Atrial flutter Chronic kidney disease (CKD) Kidney disease, chronic, stage III (GFR 30-59 ml/min) Hypoxemia Pneumonia of both lower lobes GERD (gastroesophageal reflux disease) COVID-19 Ischemic cardiomyopathy Carotid artery disease Paroxysmal atrial fibrillation Sick sinus syndrome Brain bleed Congestive heart failure Acute electrocardiogram changes Home Medications ?Medication ?Instructions ?Recorded ?Last Taken ?Type allopurinol 100 mg tablet 100 mg PO BID Gout 11/24/18 11/27/23 History atorvastatin 40 mg tablet 40 mg PO QHS Cholesterol 11/24/18 11/26/23 History albuterol sulfate 90 mcg/actuation 2 puff inhalation Q4H PRN 12/25/20 Unknown Rx aerosol inhaler shortness of breath or wheezing #8.5 grams cholecalciferol (vitamin D3) 50 50 mcg PO DAILY bone health #1 TAB 03/09/22 11/17/23 Rx mcg (2,000 unit) tablet coenzyme Q10 100 mg tablet 100 mg PO DAILY general 09/24/22 11/16/23 History ascorbic acid (vitamin C) 500 mg 500 mg PO DAILY 05/31/24 Unknown History tablet mecobalamin (vitamin B12) 1,000 1,000 mcg sublingual DAILY 05/31/24 Unknown History mcg disintegrating tablet,sublingual pyridoxine (vitamin B6) 100 mg 100 mg PO DAILY 05/31/24 Unknown History tablet zinc gluconate 50 mg tablet 50 mg PO DAILY 05/31/24 Unknown History carvedilol 25 mg tablet 25 mg PO QHS 07/15/24 07/23/25 History ferrous sulfate 325 mg (65 mg 325 mg PO DAILY 07/15/24 Unknown History iron) tablet,delayed release apixaban 2.5 mg tablet 2.5 mg PO BID Blood thinner #180 12/04/24 Unknown Rx tabs sacubitril 49 mg-valsartan 51 mg 1 tab PO BID #180 tabs 12/04/24 07/23/25 Rx tablet (Entresto) furosemide 40 mg tablet 40 mg PO DAILY PRN edema 02/21/25 Unknown History potassium chloride 20 mEq 20 meq PO QDAY PRN with lasix 02/21/25 Unknown History tablet,extended release multivitamin 1 tab PO QDAY 03/21/25 Unknown History nitroglycerin 0.4 mg sublingual 0.4 mg sublingual Q5M PRN 07/16/25 Unknown Rx tablet Cardiac/Chest Pain #25 tabs Allergy/AdvReac Type Severity Reaction Status Date / Time levofloxacin (From Levaquin) Allergy Unknown unknown Verified 08/29/25 11:46 Family History Father CAD (coronary artery disease) Mother Heart disease Hypertension Heart failure Surgical History History of craniotomy History of permanent cardiac pacemaker placement History of coronary artery bypass graft x 3 History of brain surgery Social History household members: spouse Smoking Status: Never smoker alcohol intake: never substance use type: does not use caffeine: No ROS Constitutional Constitutional: Reports fatigue; Denies chills, fever(s) or weakness Cardiovascular Cardiovascular: Reports dyspnea on exertion and edema; Denies chest pain, lightheadedness, orthopnea or palpitations Respiratory/Chest Respiratory/Chest: Denies cough, productive cough, shortness of breath at rest or wheezing Gastrointestinal Gastrointestinal: Denies abdominal pain, constipation, diarrhea, nausea or vomiting Genitourinary Genitourinary: Denies dysuria Musculoskeletal Musculoskeletal: Denies arthralgias or myalgias Neurologic Neurologic: Denies dizziness, focal weakness or headache(s) Vital Signs Vital Signs Vital Signs: 08/29/25 11:44 08/29/25 12:10 08/29/25 12:11 Temperature 97.8 F Temperature Source Temporal Pulse Rate 71 Respiratory Rate 22 H Respiratory Effort Short of Breath Labored Short of Breath Respiratory Depth Shallow Respiratory Pattern Tachypnea Blood Pressure 103/81 H Blood Pressure Mean 88 Pulse Ox 100 Oxygen Delivery Method Room Air Room Air 08/29/25 12:42 08/29/25 12:51 08/29/25 13:00 Temperature Temperature Source Pulse Rate 62 65 Respiratory Rate 16 25 H Respiratory Effort Respiratory Depth Respiratory Pattern Blood Pressure 134/79 H 132/99 H Blood Pressure Mean 97 110 Pulse Ox 93 92 Oxygen Delivery Method Room Air Room Air Room Air 08/29/25 13:55 08/29/25 14:08 Temperature Temperature Source Pulse Rate 64 62 Respiratory Rate 24 H 24 H Respiratory Effort Respiratory Depth Respiratory Pattern Blood Pressure 131/75 H 126/69 H Blood Pressure Mean 93 88 Pulse Ox 94 92 Oxygen Delivery Method Room Air Room Air Physical Exam Const alert, oriented x3, no apparent distress and average body habitus Constitutional Narrative: Elderly male, fatigued appearing, otherwise sitting back fairly comfortably in bed, conversing normally, in no acute distress. General Appearance: cooperative and comfortable HEENT normocephalic, head/scalp atraumatic, hearing grossly normal bilaterally, nasal mucous membranes and turbinates normal and moist oral mucous membranes Eyes PERRL, EOMs intact bilaterally and conjunctivae normal Neck full ROM Chest inspection of chest normal Resp normal respiratory effort and no use of accessory muscles Resp Narrative: Breathing comfortably on room air at rest. Diminished breath sounds in bilateral lung bases with mild crackles noted in mid to lower lung zones. No wheezing noted. Cardio regular rate, regular rhythm, no murmurs and peripheral pulses 2+ throughout GI normal to inspection, nondistended, normoactive bowel sounds, soft to palpation, non-tender and non-distended Back/Spine normal ROM Extremity full ROM Extremity Narrative: +2-3 lower extremity pitting edema up to the knees. Skin no rashes or lesions noted Neuro moves all extremities and no focal motor deficits Speech: speech normal Psych mental status grossly normal Results Lab / Micro Data 08/29/25 12:04 08/29/25 12:04 Labs: Laboratory Results - last 24 hr 08/29/25 12:04: WBC 3.4 L, RBC 3.25 L, Hgb 11.2 L, Hct 35.4 L, MCV 108.9 H, MCH 34.5 H, MCHC 31.6 L, RDW Std Deviation 63.7 H, RDW Coeff of Vanesa 16.0 H, Plt Count 115 L, MPV 11.2, Immature Gran % (Auto) 0.300, Neut % (Auto) 64.0, Lymph % (Auto) 21.3, [place] % (Auto) 8.5, Eos % (Auto) 5.0, Baso % (Auto) 0.9, Absolute Neuts (auto) 2.2, Absolute Lymphs (auto) 0.73 L, Nucleated RBC % 0, Sodium 145, Potassium 3.9, Chloride 112 H, Carbon Dioxide 18.3 L, Anion Gap 15, BUN 51 H, Creatinine 2.09 H, Est GFR (MDRD) Non-Af 30 L, BUN/Creatinine Ratio 24.3 H, Glucose 97, Calcium 9.8, Troponin T High Sens 83 H*, [place] [address] H Rhythm Strip Rhythm Strip: Paced Rate: 65 Ectopy: None Imaging Radiology Impression Chest X-Ray 08/29/25 12:40 IMPRESSION: Cardiomegaly. CHF. Right basilar atelectasis and/or infiltrate with a small right pleural effusion. Reading Location: [id number] Assessment & Plan Assessment/Plan (1) Acute on chronic HFrEF (heart failure with reduced ejection fraction): PLAN: Plan Patient is an 89-year-old male who presented to [facility] ED on 08/29/2025 with worsening shortness of breath with exertion. 1. Acute on chronic HFrEF ? Admit under inpatient status to PCU. Follows with cardiology as below. Last echo in 07/18 with EF 20 to 25%, severe global hypokinesis of the LV, no other concerning findings. Notably this echo was stable from prior echocardiograms. Suspect worsened volume overload on this admission is due to under diuresis at home, as patient only takes Lasix 40 mg daily as needed. Chest x-ray with vascular congestion and small right-sided pleural effusion. BNP 42,000. Satting in the low 90s on room air at rest, is not on home oxygen. Will treat with IV Lasix 60 mg twice daily for now, monitor daily BMP and urine output. Will also repeat echocardiogram. No need for cardiology consult at this time but can consider if needed. 2. Elevated troponins ? Troponin trend 83 > 78. EKG with no ischemic changes and patient reports no chest pain. Last stress test in December was negative. Suspect due to demand ischemia in setting of HFrEF. Treatment as above. 3. History of CAD with CABG, history of SSS s/p pacemaker placement, paroxysmal A-fib, hyperlipidemia ? Follows with [facility]. History of CABG x 3 back in 2014. History of pacemaker placement for bradycardia in 2014. He notably did have the pacemaker replaced on 07/23. Pacemaker report from 08/05 showed appropriate ventricular paced rhythm with 0 high ventricular rate episodes. EKG on this admit showed ventricular paced rhythm with heart rate in the 60s. Normotensive in the 120s to 130s systolic. Treated with IV Lasix as above. Okay to continue home Eliquis, statin, Coreg, and Entresto. 4. CKD stage IV ? Creatinine 2.09 on admit, at baseline. Will monitor daily BMP and urine output while on IV Lasix as above. 5. Chronic mild anemia and mild thrombocytopenia ? Follows with Dr. Trivedi, last office visit on 08/08. Anemia is due to both iron deficiency and chronic disease. Has been taking p.o. iron as instructed and was on Retacrit injections for a period of time. Hemoglobin 11.2, platelet count 115 on this admission, both stable at baseline. 6. Mild acute on chronic debility ? PT/OT/case management consulted. Patient lives at home with his and has decent functional status at baseline. However, he has been more weak and fatigued than his normal likely due to volume overload in setting of CHF exacerbation as above. Appreciate therapy recommendations. 7. History of gout ? Continue home allopurinol. DVT prophylaxis: Not indicated, on Eliquis CODE STATUS: Full code, verified Expected disposition: Likely home, 2 to 3 days Total clinical time spent by myself addressing the patient's medical issues, reviewing all the data, and collaborating with patient's care team: 81 minutes. Charges/Coding Visit Charges Inpatient E&M: 32800 Init Hosp L3
--- NOTE | 2025-08-29 14:36 | ECHOD_ITS ---
Reason For Study ECHO/Echo Complete
[2025-08-29 15:16] LABS: Troponin T High Sens 2 HR 78 ng/L (<=22)
--- NOTE | 2025-08-29 15:50 | CASEMGMT ---
Care Management Face to Face with patient for initial transition planning/care coordination assessment in the ED.? This newspaper writer introduced self and role at [facility]. Patient alert and oriented. Patient willing to participate in assessment and is able to answer all questions appropriately.? Care providers, pharmacy, and demographics verified. Admitting Diagnosis: ?CHF exacerbation Other diagnosis history: ?CHF, CKD, anemia PCP: ??[facility] Specialists: ?Wes,? Cuco Trivedi Preferred Pharmacy: [facility] Insurance: ?Medicare Prescription Benefit: ?yes Living Will/HPOA: Completed and on file ? LNOK: Living Arrangements: ?patient lives with in one story home, states she assists with any ADL or IADL needs.? Patient able to ambulate with cane or walker Transportation: ? drives DME: ?cane, walker, shower bench, blood pressure cuff, pulse ox HHC: ?[facility] SNF/Rehab: ?none Community Resources: ?none Behavioral Health History: ?None Patient goals: Patient wishes to discharge home, denies need for home health care at this time. Patient denies any further needs or concerns at this time. Disposition Plan: admission to acute; RN CM/SW to follow for discharge planning needs that may arise. Elidia Talavera, COMPENSATION CONSULTANT, [employer]
[2025-08-29 18:06] LABS: Troponin T High Sens 4 HR 78 ng/L (<=22)
[2025-08-29] MEDS: 0.9% Saline Lock 10 ML Syringe IV (18:19)
[2025-08-29] MEDS: SACUBITRIL/VALSARTAN 49-51 MG TABLET 1 EACH PO (20:59)
[2025-08-29] MEDS: APIXABAN 2.5 MG TABLET (WCH) PO (20:59)
[2025-08-30 03:00] VITALS: BP 111/67; PULSE 74; RESP 16; TEMP 36.4; O2SAT 92
[2025-08-30 06:00] VITALS: BMI 19.5
[2025-08-30 07:00] VITALS: PULSE 66
[2025-08-30 07:10] LABS: Hematocrit 30.9 % (40-54); Hemoglobin 10.3 g/dL (13.0-16.5); Mean Corp Hgb Conc 33.3 g/dL (32-36); Mean Corpuscular Volume 106.2 fL (80-94); Mean Platelet Vol. 11.5 fl (6.2-12.0); Platelet Count 132 K/mm3 (150-450); RBC Distribution Width CV 16.3 % (11.6-14.6); RBC Distribution Width SD 63.5 fl (35.1-43.9); Red Blood Count 2.91 M/mm3 (4.6-6.2); White Blood Count 3.3 K/mm3 (4.4-11.0)
--- NOTE | 2025-08-30 07:30 | PN.HOSP_ITS ---
Reason for Visit
--- NOTE | 2025-08-30 07:30 | PCM.PN.HOSP ---
Reason for Visit Chief Complaint: Shortness of breath with exertion Subjective Subjective Feeling well. Objective Data Objective Data Vital Signs: Vital Signs Temp Pulse Resp BP Pulse Ox O2 Del Method 36.4 C L 74 16 111/67 92 Room Air 08/30/25 03:00 08/30/25 03:00 08/30/25 03:00 08/30/25 03:00 08/30/25 03:00 08/30/25 03:15 Oxygen Delivery Method Room Air Weight: 62 kg Body Mass Index (BMI) 19.5 Intake & Output: Intake and Output for Last 24 Hours 08/28/25 08/29/25 08/30/25 23:59 23:59 23:59 Intake Total 500 / 500 Output Total 500 / 500 Balance 500 / 500 -500 / -500 Lab / Micro Data 08/30/25 06:22 08/30/25 06:22 Labs: Laboratory Results - last 24 hr 08/29/25 12:04: WBC 3.4 L, RBC 3.25 L, Hgb 11.2 L, Hct 35.4 L, MCV 108.9 H, MCH 34.5 H, MCHC 31.6 L, RDW Std Deviation 63.7 H, RDW Coeff of Vanesa 16.0 H, Plt Count 115 L, MPV 11.2, Immature Gran % (Auto) 0.300, Neut % (Auto) 64.0, Lymph % (Auto) 21.3, [place] % (Auto) 8.5, Eos % (Auto) 5.0, Baso % (Auto) 0.9, Absolute Neuts (auto) 2.2, Absolute Lymphs (auto) 0.73 L, Nucleated RBC % 0, Sodium 145, Potassium 3.9, Chloride 112 H, Carbon Dioxide 18.3 L, Anion Gap 15, BUN 51 H, Creatinine 2.09 H, Est GFR (MDRD) Non-Af 30 L, BUN/Creatinine Ratio 24.3 H, Glucose 97, Calcium 9.8, Troponin T High Sens 83 H*, [place] [address] H 08/29/25 14:05: Troponin T Hi Sens 2 Hr 78 H* 08/29/25 16:50: Troponin T Hi Sens 4Hr 78 H* 08/30/25 06:22: WBC 3.3 L, RBC 2.91 L, Hgb 10.3 L, Hct 30.9 L, MCV 106.2 H, MCH 35.4 H, MCHC 33.3 D, RDW Std Deviation 63.5 H, RDW Coeff of Vanesa 16.3 H, Plt Count 132 L, MPV 11.5 Radiography Diagnostic Testing: Radiology Impression Chest X-Ray 08/29/25 12:40 IMPRESSION: Cardiomegaly. CHF. Right basilar atelectasis and/or infiltrate with a small right pleural effusion. Reading Location: [id number] Rhythm Strip Rhythm Strip: Paced Rate: 65 Ectopy: None Physical Exam Const Constitutional Narrative: In bed, on room air. No respiratory distress. no conversational dyspnea. HEENT head/scalp atraumatic and moist oral mucous membranes Neck Neck Narrative: JVD Resp normal respiratory effort, no retractions, no use of accessory muscles and clear to auscultation bilaterally Cardio regular rate, regular rhythm, S1 normal heart sound and S2 normal heart sound GI normal to inspection, nondistended, normoactive bowel sounds, soft to palpation, non-tender and non-distended Extremity normal to inspection Neuro Sensorium / Orientation: awake and alert Assessment & Plan Assessment/Plan (1) Acute on chronic HFrEF (heart failure with reduced ejection fraction): PLAN: Plan Acute on chronic HFrEF Last echo in 07/18 with EF 20 to 25%, severe global hypokinesis of the LV, no other concerning findings. Notably this echo was stable from prior echocardiograms. Suspect worsened volume overload on this admission is due to under diuresis at home, as patient only takes Lasix 40 mg daily as needed. Chest x-ray with vascular congestion and small right-sided pleural effusion. BNP 42,000. Satting in the low 90s on room air at rest, is not on home oxygen. Started with IV Lasix 60 mg twice daily but with creatinine going up and clinically appearing compensated, will change to 40 PO daily. follow up echocardiogram. Elevated troponins demand ischemia in pt with acute CHF and skewed upwards given CKD. Last stress test in December was negative. No additional work up at this time. History of CAD with CABG, history of SSS s/p pacemaker placement, paroxysmal A-fib, hyperlipidemia Follows with [place] [facility]. History of CABG x 3 back in 2014. History of pacemaker placement for bradycardia in 2014. He notably did have the pacemaker replaced on 07/23. Pacemaker report from 08/05 showed appropriate ventricular paced rhythm with 0 high ventricular rate episodes. EKG on this admit showed ventricular paced rhythm with heart rate in the 60s. Normotensive in the 120s to 130s systolic. Treated with IV Lasix as above. Okay to continue home Eliquis, statin, Coreg, and Entresto. Chronic conditions: CKD stage IV? Creatinine 2.09 on admit, at baseline. Will monitor daily BMP and urine output while on IV Lasix as above. Chronic mild anemia and mild thrombocytopenia? Follows with Dr. Trivedi, last office visit on 08/08. Anemia is due to both iron deficiency and chronic disease. Has been taking p.o. iron as instructed and was on Retacrit injections for a period of time. Hemoglobin 11.2, platelet count 115 on this admission, both stable at baseline. Mild acute on chronic debility? PT/OT/case management consulted. Patient lives at home with his and has decent functional status at baseline. However, he has been more weak and fatigued than his normal likely due to volume overload in setting of CHF exacerbation as above. Appreciate therapy recommendations. History of gout? Continue home allopurinol. aflutter: anticoagulated with apixaban, carvedilol DVT prophylaxis: Not indicated, on Eliquis CODE STATUS: Full code, verified Charges/Coding Visit Charges Inpatient E&M: 64929 Subs Hosp L2
[2025-08-30 07:40] LABS: Anion Gap 14 (5-15); BUN 51 mg/dL (4-19); BUN/Creat Ratio 22.3 RATIO (10-20); Calcium,Total 9.4 mg/dL (7.6-11.0); Carbon Dioxide 19.4 mmol/L (21.0-32.0); Chloride 113 mmol/L (98-108); Estimated Creatinine Clearance 19.09 ml/min (50-250); Glucose 95 mg/dL (70-99); Potassium 4.0 mmol/L (3.3-5.1)
[2025-08-30] MEDS: APIXABAN 2.5 MG TABLET (WCH) PO (08:15)
[2025-08-30] MEDS: Cholecalciferol (VIT D3) 25 MCG TABLET (1,000 UNITS) 50 MCG PO (08:16)
[2025-08-30] MEDS: SACUBITRIL/VALSARTAN 49-51 MG TABLET 1 EACH PO (08:16)
[2025-08-30] MEDS: Potassium Chloride Oral Tablet 20 MEQ PO (08:16)
[2025-08-30] MEDS: 0.9% Saline Lock 10 ML Syringe IV (08:19)
[2025-08-30 08:31] VITALS: BP 115/72; PULSE 64; RESP 20; TEMP 36.6; O2SAT 95
--- NOTE | 2025-08-30 08:54 | NURSING ---
This RN called patient's PCP to see if patient had received the flu vaccine this year, as patient was unsure. PCP's office stated that the patient did not receive the flu vaccine yet this year. Patient will be given the vaccine during this admission.
[2025-08-30] MEDS: FLU VACCINE HIGH DOSE 25-26(65YR UP) 180 MCG/0.5 ML SYRINGE IM (11:02)
[2025-08-30 11:35] VITALS: O2SAT 91; O2SAT 95; O2SAT 96
[2025-08-30 12:00] VITALS: PULSE 63
--- NOTE | 2025-08-30 12:30 | PCM.DC.SUM ---
Providers Date of Admission: 08/29/25 Primary Care Physician: Cheli Grace MD Reason For Visit: CHF EXACERBATION Diagnosis Discharge Diagnosis (1) Acute on chronic HFrEF (heart failure with reduced ejection fraction): Status: Resolved Code(s): I50.23 - Acute on chronic systolic (congestive) heart failure Plan Acute on chronic HFrEF Last echo in 07/18 with EF 20 to 25%, severe global hypokinesis of the LV, no other concerning findings. Notably this echo was stable from prior echocardiograms. Suspect worsened volume overload on this admission is due to under diuresis at home, as patient only takes Lasix 40 mg daily as needed. Chest x-ray with vascular congestion and small right-sided pleural effusion. BNP 42,000. Satting in the low 90s on room air at rest, is not on home oxygen. Started with IV Lasix 60 mg twice daily but with creatinine going up and clinically appearing compensated, will change to 40 PO daily. Echo shows an EF of 20% which is unchanged June 2024. Elevated troponins demand ischemia in pt with acute CHF and skewed upwards given CKD. Last stress test in December was negative. No additional work up at this time. History of CAD with CABG, history of SSS s/p pacemaker placement, paroxysmal A-fib, hyperlipidemia Follows with [place] [facility]. History of CABG x 3 back in 2014. History of pacemaker placement for bradycardia in 2014. He notably did have the pacemaker replaced on 07/23. Pacemaker report from 08/05 showed appropriate ventricular paced rhythm with 0 high ventricular rate episodes. EKG on this admit showed ventricular paced rhythm with heart rate in the 60s. Normotensive in the 120s to 130s systolic. Treated with IV Lasix as above. Okay to continue home Eliquis, statin, Coreg, and Entresto. Chronic conditions: CKD stage IV? Creatinine 2.09 on admit, at baseline. Will monitor daily BMP and urine output while on IV Lasix as above. Chronic mild anemia and mild thrombocytopenia? Follows with Dr. Trivedi, last office visit on 08/08. Anemia is due to both iron deficiency and chronic disease. Has been taking p.o. iron as instructed and was on Retacrit injections for a period of time. Hemoglobin 11.2, platelet count 115 on this admission, both stable at baseline. Mild acute on chronic debility? PT/OT/case management consulted. Patient lives at home with his and has decent functional status at baseline. However, he has been more weak and fatigued than his normal likely due to volume overload in setting of CHF exacerbation as above. Appreciate therapy recommendations. History of gout? Continue home allopurinol. aflutter: anticoagulated with apixaban, carvedilol DVT prophylaxis: Not indicated, on Eliquis CODE STATUS: Full code, verified Medications at Discharge Home Medications allopurinol 100 mg tablet 100 mg PO BID Gout 11/24/18 atorvastatin 40 mg tablet 40 mg PO QHS Cholesterol 11/24/18 albuterol sulfate 90 mcg/actuation aerosol inhaler 2 puff inhalation Q4H PRN shortness of breath or wheezing #8.5 grams 12/25/20 cholecalciferol (vitamin D3) 50 mcg (2,000 unit) tablet 50 mcg PO DAILY bone health #1 TAB 03/09/22 coenzyme Q10 100 mg tablet 100 mg PO DAILY general 09/24/22 ascorbic acid (vitamin C) 500 mg tablet 500 mg PO DAILY supplement 05/31/24 mecobalamin (vitamin B12) 1,000 mcg disintegrating tablet,sublingual 1,000 mcg sublingual DAILY supplement 05/31/24 pyridoxine (vitamin B6) 100 mg tablet 100 mg PO DAILY supplement 05/31/24 zinc gluconate 50 mg tablet 50 mg PO DAILY supplement 05/31/24 carvedilol 25 mg tablet 25 mg PO QHS BP/HR 07/15/24 ferrous sulfate 325 mg (65 mg iron) tablet,delayed release 325 mg PO DAILY supplement 07/15/24 apixaban 2.5 mg tablet 2.5 mg PO BID Blood thinner #180 tabs 12/04/24 sacubitril 49 mg-valsartan 51 mg tablet (Entresto) 1 tab PO BID heart #180 tabs 12/04/24 potassium chloride 20 mEq tablet,extended release 20 meq PO QDAY PRN with lasix 02/21/25 multivitamin 1 tab PO QDAY supplement 03/21/25 nitroglycerin 0.4 mg sublingual tablet 0.4 mg sublingual Q5M PRN Cardiac/Chest Pain #25 tabs 07/16/25 furosemide 40 mg tablet 40 mg PO DAILY edema #30 tabs 08/30/25 Hospital Course Operations None Procedures 2-D Echocardiogram Weight / BMI Weight Weight: 62 kg Body Mass Index (BMI) 19.5 ABG / Lab / Microbiology Data 08/30/25 06:22 08/30/25 06:22 Laboratory: Laboratory Results - last 24 hr 08/29/25 12:04: WBC 3.4 L, RBC 3.25 L, Hgb 11.2 L, Hct 35.4 L, MCV 108.9 H, MCH 34.5 H, MCHC 31.6 L, RDW Std Deviation 63.7 H, RDW Coeff of Vanesa 16.0 H, Plt Count 115 L, MPV 11.2, Immature Gran % (Auto) 0.300, Neut % (Auto) 64.0, Lymph % (Auto) 21.3, [place] % (Auto) 8.5, Eos % (Auto) 5.0, Baso % (Auto) 0.9, Absolute Neuts (auto) 2.2, Absolute Lymphs (auto) 0.73 L, Nucleated RBC % 0, Sodium 145, Potassium 3.9, Chloride 112 H, Carbon Dioxide 18.3 L, Anion Gap 15, BUN 51 H, Creatinine 2.09 H, Est GFR (MDRD) Non-Af 30 L, BUN/Creatinine Ratio 24.3 H, Glucose 97, Calcium 9.8, Troponin T High Sens 83 H*, [place] [address] H 08/29/25 14:05: Troponin T Hi Sens 2 Hr 78 H* 08/29/25 16:50: Troponin T Hi Sens 4Hr 78 H* 08/30/25 06:22: WBC 3.3 L, RBC 2.91 L, Hgb 10.3 L, Hct 30.9 L, MCV 106.2 H, MCH 35.4 H, MCHC 33.3 D, RDW Std Deviation 63.5 H, RDW Coeff of Vanesa 16.3 H, Plt Count 132 L, MPV 11.5, Sodium 146 H, Potassium 4.0, Chloride 113 H, Carbon Dioxide 19.4 L, Anion Gap 14, BUN 51 H, Creatinine 2.30 H, Estim Creat Clear Calc 19.09 L, Est GFR (MDRD) Non-Af 26 L, BUN/Creatinine Ratio 22.3 H, Glucose 95, Calcium 9.4 Radiography Diagnostic Testing: Radiology Impression Chest X-Ray 08/29/25 12:40 IMPRESSION: Cardiomegaly. CHF. Right basilar atelectasis and/or infiltrate with a small right pleural effusion. Reading Location: [id number] Echocardiogram 08/29/25 14:36 Interpretation Summary The left ventricular ejection fraction is 20 %. There is severe global hypokinesis of the left ventricle. Mildly reduced reduced RV systolic function Moderate (2+) mitral valve insufficiency. Compared to previous echocardiogram on 07/17/2024, there is no significant change. Ordering Physician: Sanjeev Sandhu Referring Physician: OJ VEGA Performed By: Ethel Astudillo and Student D/C Instructions DC O2, CPAP, BIPAP Needs Home O2 Discharge instructions: No Meaningful Use Info Meaningful Use Meaningful Use Diagnoses (Choose all that apply): CHF CHF ROHAN/ARB ordered at discharge?: Yes Reason ROHAN/ARB not ordered?: Worsening renal disease Documented LVEF (%): 20 Discharge Plan Admission Admit Date/Time: 08/29/25 14:29 Primary Reason for Your Visit: CHF exacerbation Attending Provider: Gómez Nowak Primary Care Provider: Cheli Grace Consulting Providers: Sanjeev Sandhu Instructions Patient Instructions: Heart Failure Flare Up Signs, Heart Failure: Tracking Your Weight, Heart Failure Make Changes Diet, Heart Failure Care Discharge Orders/Prescriptions Prescriptions: Continued albuterol sulfate 90 mcg/actuation HFA aerosol inhaler 2 puff INHALATION Q4H PRN (Reason: shortness of breath or wheezing) Qty: 8.5 6RF Rx Instructions: administer with spacer coenzyme Q10 100 mg tablet 100 mg PO DAILY Rx Instructions: pt takes in the am ascorbic acid (vitamin C) 500 mg tablet 500 mg PO DAILY zinc gluconate 50 mg tablet 50 mg PO DAILY pyridoxine (vitamin B6) 100 mg tablet 100 mg PO DAILY mecobalamin (vitamin B12) 1,000 mcg tablet,disintegrating 1,000 mcg sublingual DAILY Patient Comments: take one tablet 2 days (wed and ) Rx Instructions: place tablet under tongue and allow to dissolve for at least30 secs before swallowing potassium chloride 20 mEq tablet extended release 20 meq PO QDAY PRN (Reason: with lasix) multivitamin Tablet 1 tab PO QDAY atorvastatin 40 MG tablet 40 mg PO QHS allopurinol 100 MG tablet 100 mg PO BID ferrous sulfate 325 mg (65 mg iron) tablet,delayed release (DR/EC) 325 mg PO DAILY carvedilol 25 mg tablet 25 mg PO QHS Rx Instructions: must administer with a meal/food cholecalciferol (vitamin D3) 50 mcg (2,000 unit) tablet 50 mcg PO DAILY Qty: 1 0RF sacubitril-valsartan [Entresto] 49-51 mg tablet 1 tab PO BID Qty: 180 3RF apixaban 2.5 mg tablet 2.5 mg PO BID Qty: 180 4RF nitroglycerin 0.4 mg tablet, sublingual 0.4 mg sublingual Q5M PRN (Reason: Cardiac/Chest Pain) Qty: 25 3RF Changed furosemide 40 mg tablet 40 mg PO DAILY Qty: 30 0RF Referrals / Follow Up: [facility] [Provider Group] - 09/25/25 1:00 pm *[facility] [Provider Group] - 09/05/25 2:00 pm Cheli Grace MD [Primary Care Provider, [facility]] - Within 2 Weeks Disposition Disposition (needs filled in before D/C Order can be placed): Home, Self Care Charges/Coding Visit Charges Inpatient E&M: 72668 Disch Hosp
--- NOTE | 2025-08-30 12:58 | PHA.DC_ITS ---
Pharmacy [place] Med Reconciliation
--- NOTE | 2025-08-30 12:58 | PHA.DC.MR.R ---
Pharmacy [place] Med Reconciliation Pharmacy Service has performed discharge medication reconciliation for this patient. The patient's discharge medication list was reviewed for discrepancies and discrepancies were resolved. Medications at Discharge Home Medications allopurinol 100 mg tablet 100 mg PO BID Gout 11/24/18 atorvastatin 40 mg tablet 40 mg PO QHS Cholesterol 11/24/18 albuterol sulfate 90 mcg/actuation aerosol inhaler 2 puff inhalation Q4H PRN shortness of breath or wheezing #8.5 grams 12/25/20 cholecalciferol (vitamin D3) 50 mcg (2,000 unit) tablet 50 mcg PO DAILY bone health #1 TAB 03/09/22 coenzyme Q10 100 mg tablet 100 mg PO DAILY general 09/24/22 ascorbic acid (vitamin C) 500 mg tablet 500 mg PO DAILY supplement 05/31/24 mecobalamin (vitamin B12) 1,000 mcg disintegrating tablet,sublingual 1,000 mcg sublingual DAILY supplement 05/31/24 pyridoxine (vitamin B6) 100 mg tablet 100 mg PO DAILY supplement 05/31/24 zinc gluconate 50 mg tablet 50 mg PO DAILY supplement 05/31/24 carvedilol 25 mg tablet 25 mg PO QHS BP/HR 07/15/24 ferrous sulfate 325 mg (65 mg iron) tablet,delayed release 325 mg PO DAILY supplement 07/15/24 apixaban 2.5 mg tablet 2.5 mg PO BID Blood thinner #180 tabs 12/04/24 sacubitril 49 mg-valsartan 51 mg tablet (Entresto) 1 tab PO BID heart #180 tabs 12/04/24 potassium chloride 20 mEq tablet,extended release 20 meq PO QDAY PRN with lasix 02/21/25 multivitamin 1 tab PO QDAY supplement 03/21/25 nitroglycerin 0.4 mg sublingual tablet 0.4 mg sublingual Q5M PRN Cardiac/Chest Pain #25 tabs 07/16/25 furosemide 40 mg tablet 40 mg PO DAILY edema #30 tabs 08/30/25
[2025-08-30 13:15] VITALS: O2SAT 95
--- NOTE | 2025-08-30 13:58 | CASEMGMT ---
ANA CRISTINA MURPHY NOTE: Discharger order is in. ANA CRISTINA CM to room. Pt sitting up in room, sitting next to pt. Introduced self and role. Pt and deny having any concerns w/pt going home today. They decline wanting any HHC or OP therapy. had questions re: Echo and results. RN, Jewels Hess, made aware. Home O2 testing has been completed. Pt does not qualify for home O2. Elizabeth AGUILARN ANA CRISTINA CM
== END 2025-08-30 14:23 | disposition home or self-care (01) | DRG 292 ==
LOC: ED 14:33 → PCU 14:51
PROVIDERS: Admitting Provider Hospitalist; Emergency Provider Emergency Medicine; PCP Family Medicine
DX: I50.23 Acute on chronic systolic (congestive) heart failure (principal); N18.4 Chronic kidney disease, stage 4 (severe); I24.89 Other forms of acute ischemic heart disease; D63.1 Anemia in chronic kidney disease; D69.6 Thrombocytopenia, unspecified; Z79.01 Long term (current) use of anticoagulants; I48.0 Paroxysmal atrial fibrillation; D50.9 Iron deficiency anemia, unspecified; I25.5 Ischemic cardiomyopathy; E78.5 Hyperlipidemia, unspecified; I25.10 Atherosclerotic heart disease of native coronary artery without angina pectoris; M10.9 Gout, unspecified; Z79.899 Other long term (current) drug therapy; R53.81 Other malaise; Z23 Encounter for immunization; Z95.1 Presence of aortocoronary bypass graft; Z95.0 Presence of cardiac pacemaker
CPT/HCPCS: 36415; 71045; 80048; 83880; 84484; 85025; 85027; 93005; 93306; 97161; 97165; 97802; 99285; A4216; J1938

== ENCOUNTER 2025-08-30 23:01 | Inpatient (IN) | payer MEDICARE, OTHER, SELFPAY ==
[2025-08-30 23:03] VITALS: BP 118/95; PULSE 82; RESP 16; TEMP 37.1; O2SAT 94; BMI 19.8
--- NOTE | 2025-08-30 23:33 | EX.ED.DYSGE1 ---
HPI History of Present Illness Chief Complaint: Shortness of Breath Narrative Narrative: Patient was seen and examined after presenting to ED for shortness of breath he just got discharged from the hospital today according to his as the patient was admitted at the time for heart failure exacerbation they decided to go to bed early tonight and she said that they woke up and he was very short of breath very weak unable to really ambulate much does not normally wear oxygen. [facility] Medical History Chronic kidney disease (CKD) Atherosclerosis of [place] coronary artery of [place] heart without angina pectoris Chest pain Iron deficiency anemia Anemia in chronic kidney disease (CKD) Atrial flutter Chronic kidney disease (CKD) Kidney disease, chronic, stage III (GFR 30-59 ml/min) Hypoxemia Pneumonia of both lower lobes GERD (gastroesophageal reflux disease) COVID-19 Ischemic cardiomyopathy Carotid artery disease Paroxysmal atrial fibrillation Sick sinus syndrome Brain bleed Congestive heart failure Acute electrocardiogram changes Home Medications ?Medication ?Instructions ?Recorded ?Last Taken ?Type allopurinol 100 mg tablet 100 mg PO BID Gout 11/24/18 11/27/23 History atorvastatin 40 mg tablet 40 mg PO QHS Cholesterol 11/24/18 11/26/23 History albuterol sulfate 90 mcg/actuation 2 puff inhalation Q4H PRN 12/25/20 Unknown Rx aerosol inhaler shortness of breath or wheezing #8.5 grams cholecalciferol (vitamin D3) 50 50 mcg PO DAILY bone health #1 TAB 03/09/22 11/17/23 Rx mcg (2,000 unit) tablet coenzyme Q10 100 mg tablet 100 mg PO DAILY general 09/24/22 11/16/23 History ascorbic acid (vitamin C) 500 mg 500 mg PO DAILY supplement 05/31/24 Unknown History tablet mecobalamin (vitamin B12) 1,000 1,000 mcg sublingual DAILY 05/31/24 Unknown History mcg disintegrating supplement tablet,sublingual pyridoxine (vitamin B6) 100 mg 100 mg PO DAILY supplement 05/31/24 Unknown History tablet zinc gluconate 50 mg tablet 50 mg PO DAILY supplement 05/31/24 Unknown History carvedilol 25 mg tablet 25 mg PO QHS BP/HR 07/15/24 07/23/25 History ferrous sulfate 325 mg (65 mg 325 mg PO DAILY supplement 07/15/24 Unknown History iron) tablet,delayed release apixaban 2.5 mg tablet 2.5 mg PO BID Blood thinner #180 12/04/24 Unknown Rx tabs sacubitril 49 mg-valsartan 51 mg 1 tab PO BID heart #180 tabs 12/04/24 07/23/25 Rx tablet (Entresto) potassium chloride 20 mEq 20 meq PO QDAY PRN with lasix 02/21/25 Unknown History tablet,extended release multivitamin 1 tab PO QDAY supplement 03/21/25 Unknown History nitroglycerin 0.4 mg sublingual 0.4 mg sublingual Q5M PRN 07/16/25 Unknown Rx tablet Cardiac/Chest Pain #25 tabs furosemide 40 mg tablet 40 mg PO DAILY edema #30 tabs 08/30/25 Unknown Rx Allergy/AdvReac Type Severity Reaction Status Date / Time levofloxacin (From Levaquin) Allergy Unknown unknown Verified 08/30/25 23:05 Family History Father CAD (coronary artery disease) Mother Heart disease Hypertension Heart failure Surgical History History of craniotomy History of permanent cardiac pacemaker placement History of coronary artery bypass graft x 3 History of brain surgery Social History household members: spouse Smoking Status: Never smoker alcohol intake: never substance use type: does not use caffeine: No ROS ROS ED ROS Narrative Acute care caveat applies EXAM Physical Exam Narrative Exam Narrative: Patient is afebrile but he is tachypneic has increased work of breathing does have some coarse lung sounds. Abdomen is soft nontender nondistended does have some mild bilateral lower extremity edema but intact MSPs. Normal range of motion of his head and neck. Const Vital Signs: 08/30/25 23:03 08/30/25 23:33 08/30/25 23:50 Temperature 98.8 F Temperature Source Oral Pulse Rate 82 73 Respiratory Rate 16 28 H Blood Pressure 118/95 H Blood Pressure Mean 102 Pulse Ox 94 97 Oxygen Delivery Method Nasal Cannula Nasal Cannula Oxygen Flow Rate (L/min) 3 08/31/25 00:00 08/31/25 00:02 08/31/25 00:05 Temperature 98.6 F Temperature Source Oral Pulse Rate 70 68 67 Respiratory Rate 23 H 16 30 H Blood Pressure 135/57 H 135/57 H 135/57 H Blood Pressure Mean 75 83 83 Pulse Ox 96 97 97 Oxygen Delivery Method Nasal Cannula Nasal Cannula Oxygen Flow Rate (L/min) 2 2 08/31/25 00:15 08/31/25 00:30 08/31/25 00:45 Temperature Temperature Source Pulse Rate 60 60 61 Respiratory Rate 35 H 29 H 32 H Blood Pressure 130/59 H 121/52 H 113/52 L Blood Pressure Mean 81 73 70 Pulse Ox 98 97 96 Oxygen Delivery Method Oxygen Flow Rate (L/min) 08/31/25 01:00 08/31/25 01:00 08/31/25 01:09 Temperature 98.4 F 98.4 F Temperature Source Oral Pulse Rate 60 60 60 Respiratory Rate 29 H 32 H 29 H Blood Pressure 121/52 H 123/75 H 121/52 H Blood Pressure Mean 75 90 75 Pulse Ox 97 98 97 Oxygen Delivery Method Nasal Cannula Oxygen Flow Rate (L/min) 2 Sepsis Attestation Sepsis Alert: Yes Sepsis Attestation: Agree w/Sepsis Date exam was performed: 08/30/25 Time exam was performed: 22:30 Sepsis Organ Dysfunction Criteria Present: Acute Respiratory Failure (New need for BiPAP/CPAP or MV) (Not requiring supplemental oxygen), Creatinine > 2.0 mg/dL and INR > 1.5 or aPTT > 60 sec Fluid Resuscitation Fluid Resuscitation ordered: Lesser volume fluid bolus ordered Amount of fluid ordered: 250 Reason for lesser fluid bolus:: Concern for fluid overload and Heart failure Sepsis Note Date exam was performed: 08/31/25 Time exam was performed: 01:40 Sepsis Attestation: Sepsis re-evaluation was performed Response to fluids: Fluid responsive hypotension (Patient was never hypotensive) MDM MDM MDM Narrative Medical decision making narrative: Nursing notes, triage notes, available previous documentation, and vital signs were reviewed. Any discrepancies noted were addressed. Differential Diagnoses: Need to consider the possibility of infectious process such as pneumonia or viral process or UTI still could be heart failure Interventions: Currently receiving supplemental oxygen Antibiotics Given: Ceftriaxone Labs Reviewed: No leukocytosis is 5.4 hemoglobin is 11.5 his INR is 1.9 no significant electrolyte abnormality creatinine is 2.4 today transaminitis lactic acid is 1.8 Imaging Reviewed: Personally reviewed and interpreted by me: Chest x-ray appears similar to that chest x-ray performed on 08/29/2025 does have evidence of edema but need to be concern for underlying infiltrate EKG: Appears more like atrial flutter rate of 66. I do not see evidence of ACS. No evidence of prolonged QT syndrome. No evidence of AV Block. No short [place] intervals, wide QRS, or Delta waves indicative of WPW. No evidence of dagger-like q waves or LVH indicative of Hypertrophic Cardiomyopathy. No evidence of Brugada Syndrome. EKG interpretation is noted and agreed to in the EMR. The interpretation of this patient's EKG contributed directly to the care and management of this patient. Previous Documentation Reviewed: Discharge summary from 08/30/2025 patient was admitted for heart failure exacerbation had an echo on June 2024 at that time that showed an EF of 20 to 25% with severe global hypokinesis of the LV they switched his Lasix to 40 mg daily patient is anticoagulated on Eliquis and apparently has CKD stage IV with a creatinine baseline of 2.0 ED Course: Patient presenting with shortness of breath requiring supplemental oxygen he appears unwell this patient will require admission we will try and evaluate for source of infection. Of note I did discuss with the patient's to assess what the patient's wishes are and she states he would want everything done to keep him going. This sounds like he is a full code. Patient has not been hypotensive did provide him with ceftriaxone given my concern for patient having pneumonia I believe this patient will require admission to the hospital I will discuss with admitting team. 08/31/2025 0122: Respiratory panel is pending I did discuss with the hospitalist who is agreeable to admission This note was made utilizing voice recognition software. All attempts were made to correct spelling or other errors prior to note completion. However, due to the fast-paced nature of emergency medicine, some errors may still be present. Lab Data Labs: Laboratory Results - last 24 hr 08/30/25 08/30/25 23:22 23:35 WBC 5.4 RBC 3.28 L Hgb 11.5 L Hct 35.5 L MCV 108.2 H MCH 35.1 H MCHC 32.4 RDW Std Deviation 64.3 H RDW Coeff of Vanesa 16.1 H Plt Count 119 L MPV 11.6 Immature Gran % (Auto) 0.400 Neut % (Auto) 88.5 H Lymph % (Auto) 3.4 L [place] % (Auto) 5.6 Eos % (Auto) 1.7 Baso % (Auto) 0.4 Absolute Neuts (auto) 4.8 Absolute Lymphs (auto) 0.18 L Nucleated RBC % 0 PT 22.6 H INR 1.9 APTT 49.2 H Sodium 144 Potassium 4.2 Chloride 108 Carbon Dioxide 20.2 L Anion Gap 15 BUN 57 H Creatinine 2.43 H Estim Creat Clear Calc 18.31 L Est GFR (MDRD) Non-Af 25 L BUN/Creatinine Ratio 23.5 H Glucose 140 H Lactic Acid 1.8 Calcium 9.9 Total Bilirubin 1.07 AST 24 ALT 26 Alkaline Phosphatase 104 Total Protein 7.1 Albumin 4.4 Globulin 2.7 Albumin/Globulin Ratio 1.6 Urine Color Yellow Urine Clarity Clear Urine pH 5.0 Ur Specific [place] 1.015 Urine Protein 30 H Urine Glucose (UA) Normal Urine Ketones Negative Urine Occult Blood Negative Urine Nitrite Negative Urine Bilirubin Negative Urine Urobilinogen Normal Ur Leukocyte Esterase Negative Urine RBC 0-5 SEEN Urine WBC 0-5 SEEN Ur Squamous Epith Cells 0-5 SEEN Urine Bacteria 0 SEEN Urine Mucus 0 SEEN ABG Data ABG results: ABG 08/30/25 23:30 Specimen Type GIOVANNI Sample Site Not entered O2 % 2.0 VBG pH 7.39 VBG pO2 18 L* VBG HCO3 21 L VBG Total CO2 22 L VBG O2 Sat (Calc) 27 L VBG Base Excess -4 L POC Mix VBG pCO2 Pt Tmp 35.3 L O2 Delivery Device Cannula Crit Call To/Read Back Yes Blood Gas Notified Whom marysol Blood Gas Notified Time 23:32:51 Radiography Diagnostic Testing: Clinical Impression(s) from Imaging Studies Chest X-Ray 08/30/25 23:35 IMPRESSION: No significant interval change. Reading Location: [id number] Discharge Plan Triage Chief Complaint: Shortness of Breath ED Provider: Tiana Back Dx/Rx/DC Orders Clinical Impression: Acute respiratory failure, Sepsis, Heart failure Prescriptions: No Action albuterol sulfate 90 mcg/actuation HFA aerosol inhaler 2 puff INHALATION Q4H PRN (Reason: shortness of breath or wheezing) Qty: 8.5 6RF Rx Instructions: administer with spacer coenzyme Q10 100 mg tablet 100 mg PO DAILY Rx Instructions: pt takes in the am ascorbic acid (vitamin C) 500 mg tablet 500 mg PO DAILY zinc gluconate 50 mg tablet 50 mg PO DAILY pyridoxine (vitamin B6) 100 mg tablet 100 mg PO DAILY mecobalamin (vitamin B12) 1,000 mcg tablet,disintegrating 1,000 mcg sublingual DAILY Patient Comments: take one tablet 2 days (wed and ) Rx Instructions: place tablet under tongue and allow to dissolve for at least30 secs before swallowing potassium chloride 20 mEq tablet extended release 20 meq PO QDAY PRN (Reason: with lasix) multivitamin Tablet 1 tab PO QDAY atorvastatin 40 MG tablet 40 mg PO QHS allopurinol 100 MG tablet 100 mg PO BID ferrous sulfate 325 mg (65 mg iron) tablet,delayed release (DR/EC) 325 mg PO DAILY carvedilol 25 mg tablet 25 mg PO QHS Rx Instructions: must administer with a meal/food furosemide 40 mg tablet 40 mg PO DAILY Qty: 30 0RF cholecalciferol (vitamin D3) 50 mcg (2,000 unit) tablet 50 mcg PO DAILY Qty: 1 0RF sacubitril-valsartan [Entresto] 49-51 mg tablet 1 tab PO BID Qty: 180 3RF apixaban 2.5 mg tablet 2.5 mg PO BID Qty: 180 4RF nitroglycerin 0.4 mg tablet, sublingual 0.4 mg sublingual Q5M PRN (Reason: Cardiac/Chest Pain) Qty: 25 3RF Primary Care Provider: Cheli Grace Referrals: Cheli Grace MD [Primary Care Provider, Family Practice] Print Language: Romanian
--- NOTE | 2025-08-30 23:35 | RAD_ITS ---
PROCEDURE: RAD/Chest 1 View (Portable)
[2025-08-30 23:36] LABS: FI02 2.0; SITE Not entered; Time Given 23:32:51; VBG BASE EXCESS -4 mmol/L (-1.0-3.5); VBG PO2 18 mmHg (25-40); VBG SO2 27 % (50-70); VBG TCO2 22 mmol/L (23-33)
[2025-08-30 23:40] LABS: Mucous, Urine 0 SEEN /hpf (<or=2+)
[2025-08-30 23:46] LABS: Color, Urine Yellow (Yellow); Glucose, Dipstick Normal (Normal); Ketone-Dipstick Negative (Negative); Leukocyte Esterase-Dipstick Negative /ul (Negative); Nitrite-Dipstick Negative (Negative); Occult Blood-Urine Negative /ul (Negative); Protein-Dipstick 30 mg/dl (Negative); Specific Gravity, Urine 1.015 (1.002-1.030); Urine Bilirubin Dipstick Negative (Negative)
[2025-08-30 23:47] LABS: Prothrombin Time (Protime)PT. 22.6 SECONDS (11.7-14.9)
[2025-08-30 23:48] LABS: Partial Thromboplast Time 49.2 Seconds (24.1-36.2)
[2025-08-30 23:50] VITALS: PULSE 73; RESP 28; O2SAT 97
[2025-08-30 23:56] LABS: AST(SGOT) 24 U/L (<=37); Alanine Aminotransfer ALT/SGPT 26 U/L (<=46); Albumin, Serum 4.4 g/dL (3.4-4.8); Alkaline Phosphatase 104 U/L (40-129); Anion Gap 15 (5-15); BUN 57 mg/dL (4-19); BUN/Creat Ratio 23.5 RATIO (10-20); Calcium,Total 9.9 mg/dL (7.6-11.0); Carbon Dioxide 20.2 mmol/L (21.0-32.0); Chloride 108 mmol/L (98-108); Estimated Creatinine Clearance 18.31 ml/min (50-250); Globulin 2.7 g/dL (2.2-4.2); Glucose 140 mg/dL (70-99); Potassium 4.2 mmol/L (3.3-5.1)
[2025-08-31] VITALS (14 sets, daily range): BP systolic 103–135; BP diastolic 43–83; PULSE 16–70; RESP 16–35; TEMP 36.3–37; O2SAT 88–98; BMI 19.1
[2025-08-31] MEDS: Ceftriaxone 2 GM in 0.9% Normal Saline (50mL MB+) 50 ML IV (00:09)
[2025-08-31 00:25] LABS: Hematocrit 35.5 % (40-54); Hemoglobin 11.5 g/dL (13.0-16.5); Immature Granulocytes Count 0.020 X10^3/uL (0.0-0.0); Mean Corp Hgb Conc 32.4 g/dL (32-36); Mean Corpuscular Volume 108.2 fL (80-94); Mean Platelet Vol. 11.6 fl (6.2-12.0); NRBC Flagged by Analyzer 0 % (0-5); POSITIVE DIFFERENTIAL YES; Platelet Count 119 K/mm3 (150-450); RBC Distribution Width CV 16.1 % (11.6-14.6); RBC Distribution Width SD 64.3 fl (35.1-43.9); Red Blood Count 3.28 M/mm3 (4.6-6.2); White Blood Count 5.4 K/mm3 (4.4-11.0)
[2025-08-31 00:50] LABS: Red Blood Cells-Urine 0-5 SEEN /hpf (0-5); Squamous Epithelial Cells - UA 0-5 SEEN /hpf (0-5)
[2025-08-31] MEDS: 0.9% Normal Saline (250mL Bag) 250 ML 999 ML IV (01:11)
--- NOTE | 2025-08-31 02:53 | PCM.HP.STD ---
HPI - General General Date of Admission: 08/31/25 HPI Narrative DARCY COVARRUBIAS, is a 89 M who presents to the hospital after just being discharged with shortness of breath and increased weakness. He was just discharged from the hospital on 08/30/2025 and was here for heart failure exacerbation where his Lasix was increased to 40 mg p.o. daily. At the time he did not require any oxygen and did not have any significant weakness and his took him home at around 430 yesterday evening. Around 8 PM she noticed that he had fairly significant weakness and he needed her help to ambulate around the house with a walker. And then when she got up in the bed he was complaining of shortness of breath and could not get comfortable. She states that his primary care doctor was working on getting him oxygen and they had a voicemail from an oxygen supply Track that she had not been able to respond to yet. In the emergency room he was 89 to 90% on room air however during my evaluation as he dozed off he did dipped to 87% on room air but did put him back on oxygen. The moment he woke up felt his oxygen went back up into the mid 90s. [facility] Medical History Chronic kidney disease (CKD) Atherosclerosis of [place] coronary artery of [place] heart without angina pectoris Chest pain Iron deficiency anemia Anemia in chronic kidney disease (CKD) Atrial flutter Chronic kidney disease (CKD) Kidney disease, chronic, stage III (GFR 30-59 ml/min) Hypoxemia Pneumonia of both lower lobes GERD (gastroesophageal reflux disease) COVID-19 Ischemic cardiomyopathy Carotid artery disease Paroxysmal atrial fibrillation Sick sinus syndrome Brain bleed Congestive heart failure Acute electrocardiogram changes Home Medications ?Medication ?Instructions ?Recorded ?Last Taken ?Type allopurinol 100 mg tablet 100 mg PO BID Gout 11/24/18 11/27/23 History atorvastatin 40 mg tablet 40 mg PO QHS Cholesterol 11/24/18 11/26/23 History albuterol sulfate 90 mcg/actuation 2 puff inhalation Q4H PRN 12/25/20 Unknown Rx aerosol inhaler shortness of breath or wheezing #8.5 grams cholecalciferol (vitamin D3) 50 50 mcg PO DAILY bone health #1 TAB 03/09/22 11/17/23 Rx mcg (2,000 unit) tablet coenzyme Q10 100 mg tablet 100 mg PO DAILY general 09/24/22 11/16/23 History ascorbic acid (vitamin C) 500 mg 500 mg PO DAILY supplement 05/31/24 Unknown History tablet mecobalamin (vitamin B12) 1,000 1,000 mcg sublingual DAILY 05/31/24 Unknown History mcg disintegrating supplement tablet,sublingual pyridoxine (vitamin B6) 100 mg 100 mg PO DAILY supplement 05/31/24 Unknown History tablet zinc gluconate 50 mg tablet 50 mg PO DAILY supplement 05/31/24 Unknown History carvedilol 25 mg tablet 25 mg PO QHS BP/HR 07/15/24 07/23/25 History ferrous sulfate 325 mg (65 mg 325 mg PO DAILY supplement 07/15/24 Unknown History iron) tablet,delayed release apixaban 2.5 mg tablet 2.5 mg PO BID Blood thinner #180 12/04/24 Unknown Rx tabs sacubitril 49 mg-valsartan 51 mg 1 tab PO BID heart #180 tabs 12/04/24 07/23/25 Rx tablet (Entresto) potassium chloride 20 mEq 20 meq PO QDAY PRN with lasix 02/21/25 Unknown History tablet,extended release multivitamin 1 tab PO QDAY supplement 03/21/25 Unknown History nitroglycerin 0.4 mg sublingual 0.4 mg sublingual Q5M PRN 07/16/25 Unknown Rx tablet Cardiac/Chest Pain #25 tabs furosemide 40 mg tablet 40 mg PO DAILY edema #30 tabs 08/30/25 Unknown Rx Allergy/AdvReac Type Severity Reaction Status Date / Time levofloxacin (From Levaquin) Allergy Unknown unknown Verified 08/30/25 23:05 Family History Father CAD (coronary artery disease) Mother Heart disease Hypertension Heart failure Surgical History History of craniotomy History of permanent cardiac pacemaker placement History of coronary artery bypass graft x 3 History of brain surgery Social History household members: spouse Smoking Status: Never smoker alcohol intake: never substance use type: does not use caffeine: No ROS Constitutional Constitutional: Reports weakness; Denies chills, fatigue, fever(s) or malaise Eyes Eyes: Denies blurry vision ENT HEENT: Denies headache(s) or nasal discharge Cardiovascular Cardiovascular: Reports edema; Denies chest pain, dyspnea on exertion or syncope Respiratory/Chest Respiratory/Chest: Reports shortness of breath at rest; Denies cough or shortness of breath with exertion Gastrointestinal Gastrointestinal: Denies constipation, diarrhea, nausea or vomiting Genitourinary Genitourinary: Denies dysuria Neurologic Neurologic: Denies focal weakness, numbness or tremor(s) Psychiatric Psychiatric: Denies anxiety or depression Vital Signs Vital Signs Vital Signs: 08/30/25 23:03 08/30/25 23:33 08/30/25 23:50 Temperature 98.8 F Temperature Source Oral Pulse Rate 82 73 Respiratory Rate 16 28 H Blood Pressure 118/95 H Blood Pressure Mean 102 Pulse Ox 94 97 Oxygen Delivery Method Nasal Cannula Nasal Cannula Oxygen Flow Rate (L/min) 3 08/31/25 00:00 08/31/25 00:02 08/31/25 00:05 Temperature 98.6 F Temperature Source Oral Pulse Rate 70 68 67 Respiratory Rate 23 H 16 30 H Blood Pressure 135/57 H 135/57 H 135/57 H Blood Pressure Mean 75 83 83 Pulse Ox 96 97 97 Oxygen Delivery Method Nasal Cannula Nasal Cannula Oxygen Flow Rate (L/min) 2 2 08/31/25 00:15 08/31/25 00:30 08/31/25 00:45 Temperature Temperature Source Pulse Rate 60 60 61 Respiratory Rate 35 H 29 H 32 H Blood Pressure 130/59 H 121/52 H 113/52 L Blood Pressure Mean 81 73 70 Pulse Ox 98 97 96 Oxygen Delivery Method Oxygen Flow Rate (L/min) 08/31/25 01:00 08/31/25 01:00 08/31/25 01:09 Temperature 98.4 F 98.4 F Temperature Source Oral Pulse Rate 60 60 60 Respiratory Rate 29 H 32 H 29 H Blood Pressure 121/52 H 123/75 H 121/52 H Blood Pressure Mean 75 90 75 Pulse Ox 97 98 97 Oxygen Delivery Method Nasal Cannula Oxygen Flow Rate (L/min) 2 08/31/25 02:00 08/31/25 02:00 08/31/25 02:19 Temperature 98.4 F 97.9 F Temperature Source Oral Oral Pulse Rate 16 L 60 66 Respiratory Rate 16 16 20 H Blood Pressure 121/83 H 121/83 H 119/72 Blood Pressure Mean 95 95 87 Pulse Ox 96 96 98 Oxygen Delivery Method Room Air Nasal Cannula Oxygen Flow Rate (L/min) 2 Weight Weight: 133 lb 6.075 oz Body Mass Index (BMI) 19.1 Physical Exam Narrative General: Alert, Oriented x3, Cooperative, No apparent distress HEENT: Atraumatic, PERRLA, EOMI, Normocephalic Oral: Moist Mucosa Neck: Supple, No JVD Lungs: Diminished, Normal air movement, No rhonchi, No wheeze, No rales Cardiovascular: Regular rate, Regular Rhythm, Normal S1, Normal S2, No murmurs Abdomen: Soft, Non Tender, Non-Distended, No Hepato-splenomegaly Extremities: Edema, Capillary Refill Less than 3 Seconds Skin: No rashes, No breakdown Musculoskeletal: No Tenderness to Palpation of Joints or Extremities Neurological: No focal neurological deficits, moves all extremities Psych/Mental Status: Flat Results Lab / Micro Data 08/30/25 23:22 08/30/25 23:22 Labs: Laboratory Results - last 24 hr 08/30/25 23:22: WBC 5.4, RBC 3.28 L, Hgb 11.5 L, Hct 35.5 L, MCV 108.2 H, MCH 35.1 H, MCHC 32.4, RDW Std Deviation 64.3 H, RDW Coeff of Vanesa 16.1 H, Plt Count 119 L, MPV 11.6, Immature Gran % (Auto) 0.400, Neut % (Auto) 88.5 H, Lymph % (Auto) 3.4 L, [place] % (Auto) 5.6, Eos % (Auto) 1.7, Baso % (Auto) 0.4, Absolute Neuts (auto) 4.8, Absolute Lymphs (auto) 0.18 L, Nucleated RBC % 0, PT 22.6 H, INR 1.9, APTT 49.2 H, Sodium 144, Potassium 4.2, Chloride 108, Carbon Dioxide 20.2 L, Anion Gap 15, BUN 57 H, Creatinine 2.43 H, Estim Creat Clear Calc 18.31 L, Est GFR (MDRD) Non-Af 25 L, BUN/Creatinine Ratio 23.5 H, Glucose 140 H, Lactic Acid 1.8, Calcium 9.9, Total Bilirubin 1.07, AST 24, ALT 26, Alkaline Phosphatase 104, Total Protein 7.1, Albumin 4.4, Globulin 2.7, Albumin/Globulin Ratio 1.6 08/30/25 23:35: Urine Color Yellow, Urine Clarity Clear, Urine pH 5.0, Ur Specific [place] 1.015, Urine Protein 30 H, Urine Glucose (UA) Normal, Urine Ketones Negative, Urine Occult Blood Negative, Urine Nitrite Negative, Urine Bilirubin Negative, Urine Urobilinogen Normal, Ur Leukocyte Esterase Negative, Urine RBC 0-5 SEEN, Urine WBC 0-5 SEEN, Ur Squamous Epith Cells 0-5 SEEN, Urine Bacteria 0 SEEN, Urine Mucus 0 SEEN ABG Data ABG results: ABG 08/30/25 23:30 Specimen Type GIOVANNI Sample Site Not entered O2 % 2.0 VBG pH 7.39 VBG pO2 18 L* VBG HCO3 21 L VBG Total CO2 22 L VBG O2 Sat (Calc) 27 L VBG Base Excess -4 L POC Mix VBG pCO2 Pt Tmp 35.3 L O2 Delivery Device Cannula Crit Call To/Read Back Yes Blood Gas Notified Whom marysol Blood Gas Notified Time 23:32:51 Imaging Radiology Impression Chest X-Ray 08/30/25 23:35 IMPRESSION: No significant interval change. Reading Location: [facility] Assessment & Plan Assessment/Plan (1) Heart failure: PLAN: Plan 1. Acute hypoxic respiratory insufficiency secondary to acute on chronic systolic CHF ? He did have an episode of hypoxia down to 87% on room air when he dozed off during my exam. May have significant nocturnal hypoxia and would recommend a nocturnal pulse ox while here in the hospital ? Continue with his Lasix at 40 mg p.o. daily given his renal function will not be aggressive with IV diuresis ? Respiratory panel is still pending ? PT/OT ? Infectious workup so far is negative UA is unremarkable ? He does not meet sepsis criteria 2. Essential HTN/HLD/CAD status post CABG/status post pacemaker placement for sick sinus syndrome/paroxysmal A-fib ? CABG back in 2014, echo on this admission with an EF of 20% which is stable ? Continue with his home blood pressure medications ? Continue with his home Lipitor ? Continue with Eliquis 2.5 mg p.o. twice daily ? Continue with Entresto ? Will monitor and make adjustments as necessary 3. CKD 4 ? Renal functions at baseline will monitor 4. Gout ? Stable ? Continue with allopurinol DVT: Reshma 75 minutes was spent on direct patient care, including documentation as well as chart review and collaboration with colleagues Charges/Coding Visit Charges Inpatient E&M: 88530 Init Hosp L3
[2025-08-31 06:25] LABS: Hematocrit 33.5 % (40-54); Hemoglobin 11.1 g/dL (13.0-16.5); Immature Granulocytes Count 0.010 X10^3/uL (0.0-0.0); Mean Corp Hgb Conc 33.1 g/dL (32-36); Mean Corpuscular Volume 104.7 fL (80-94); Mean Platelet Vol. 11.2 fl (6.2-12.0); NRBC Flagged by Analyzer 0 % (0-5); POSITIVE DIFFERENTIAL YES; Platelet Count 109 K/mm3 (150-450); RBC Distribution Width CV 16.3 % (11.6-14.6); RBC Distribution Width SD 62.4 fl (35.1-43.9); Red Blood Count 3.20 M/mm3 (4.6-6.2); White Blood Count 4.5 K/mm3 (4.4-11.0)
[2025-08-31 06:51] LABS: Anion Gap 15 (5-15); BUN 53 mg/dL (4-19); BUN/Creat Ratio 22.8 RATIO (10-20); Calcium,Total 9.3 mg/dL (7.6-11.0); Carbon Dioxide 20.0 mmol/L (21.0-32.0); Chloride 110 mmol/L (98-108); Estimated Creatinine Clearance 18.31 ml/min (50-250); Glucose 131 mg/dL (70-99); Potassium 3.6 mmol/L (3.3-5.1)
--- NOTE | 2025-08-31 08:03 | PCM.PN.HOSP ---
Subjective Subjective Still feeling weak. Objective Data Objective Data Vital Signs: Vital Signs Temp Pulse Resp BP Pulse Ox O2 Del Method O2 Flow Rate 36.6 C 66 20 H 119/72 98 Nasal Cannula 2 08/31/25 02:19 08/31/25 02:19 08/31/25 02:19 08/31/25 02:19 08/31/25 02:19 08/31/25 03:22 08/31/25 03:22 Oxygen Flow Rate (L/min) 2 Oxygen Delivery Method Nasal Cannula Weight: 60.5 kg Body Mass Index (BMI) 19.1 Intake & Output: Intake and Output for Last 24 Hours 08/29/25 08/30/25 08/31/25 23:59 23:59 23:59 Intake Total 300 / 300 Output Total 600 / 600 Balance -300 / -300 Lab / Micro Data 08/31/25 05:49 08/31/25 05:49 Labs: Laboratory Results - last 24 hr 08/30/25 23:22: WBC 5.4, RBC 3.28 L, Hgb 11.5 L, Hct 35.5 L, MCV 108.2 H, MCH 35.1 H, MCHC 32.4, RDW Std Deviation 64.3 H, RDW Coeff of Vanesa 16.1 H, Plt Count 119 L, MPV 11.6, Immature Gran % (Auto) 0.400, Neut % (Auto) 88.5 H, Lymph % (Auto) 3.4 L, Fisher % (Auto) 5.6, Eos % (Auto) 1.7, Baso % (Auto) 0.4, Absolute Neuts (auto) 4.8, Absolute Lymphs (auto) 0.18 L, Nucleated RBC % 0, PT 22.6 H, INR 1.9, APTT 49.2 H, Sodium 144, Potassium 4.2, Chloride 108, Carbon Dioxide 20.2 L, Anion Gap 15, BUN 57 H, Creatinine 2.43 H, Estim Creat Clear Calc 18.31 L, Est GFR (MDRD) Non-Af 25 L, BUN/Creatinine Ratio 23.5 H, Glucose 140 H, Lactic Acid 1.8, Calcium 9.9, Total Bilirubin 1.07, AST 24, ALT 26, Alkaline Phosphatase 104, Total Protein 7.1, Albumin 4.4, Globulin 2.7, Albumin/Globulin Ratio 1.6 08/30/25 23:35: Urine Color Yellow, Urine Clarity Clear, Urine pH 5.0, Ur Specific [place] 1.015, Urine Protein 30 H, Urine Glucose (UA) Normal, Urine Ketones Negative, Urine Occult Blood Negative, Urine Nitrite Negative, Urine Bilirubin Negative, Urine Urobilinogen Normal, Ur Leukocyte Esterase Negative, Urine RBC 0-5 SEEN, Urine WBC 0-5 SEEN, Ur Squamous Epith Cells 0-5 SEEN, Urine Bacteria 0 SEEN, Urine Mucus 0 SEEN 08/31/25 05:49: WBC 4.5, RBC 3.20 L, Hgb 11.1 L, Hct 33.5 L, MCV 104.7 H, MCH 34.7 H, MCHC 33.1, RDW Std Deviation 62.4 H, RDW Coeff of Vanesa 16.3 H, Plt Count 109 L, MPV 11.2, Immature Gran % (Auto) 0.200, Neut % (Auto) 88.7 H, Lymph % (Auto) 3.8 L, Fisher % (Auto) 6.0, Eos % (Auto) 1.1, Baso % (Auto) 0.2, Absolute Neuts (auto) 4.0, Absolute Lymphs (auto) 0.17 L, Nucleated RBC % 0, Sodium 146 H, Potassium 3.6, Chloride 110 H, Carbon Dioxide 20.0 L, Anion Gap 15, BUN 53 H, Creatinine 2.34 H, Estim Creat Clear Calc 18.31 L, Est GFR (MDRD) Non-Af 26 L, BUN/Creatinine Ratio 22.8 H, Glucose 131 H, Calcium 9.3 Micro: Microbiology 08/30/25 23:23 Mucosa - Nasopharyngeal Respiratory Panel (PCR) - Final ABG Data ABG results: ABG 08/30/25 23:30 Specimen Type GIOVANNI Sample Site Not entered O2 % 2.0 VBG pH 7.39 VBG pO2 18 L* VBG HCO3 21 L VBG Total CO2 22 L VBG O2 Sat (Calc) 27 L VBG Base Excess -4 L POC Mix VBG pCO2 Pt Tmp 35.3 L O2 Delivery Device Cannula Crit Call To/Read Back Yes Blood Gas Notified Whom marysol Blood Gas Notified Time 23:32:51 Radiography Diagnostic Testing: Radiology Impression Chest X-Ray 08/30/25 23:35 IMPRESSION: No significant interval change. Reading Location: [facility] Physical Exam Const alert Constitutional Narrative: Listless. Afebrile. Resp normal respiratory effort and no retractions Resp Narrative: Right lower lobe crackles Cardio regular rate, regular rhythm, S1 normal heart sound and S2 normal heart sound GI normal to inspection, nondistended, normoactive bowel sounds, soft to palpation, non-tender and non-distended Extremity normal to inspection and full ROM Assessment & Plan Assessment/Plan (1) Heart failure: PLAN: Plan Debility noted weakness at home. PT OT reevaluate and treat. Notably, pt seen by PT and OT on 08/30 and no therapy was recommended at that time. Suspected VINCENZO hypoxia when dozed off. outpt [facility] eval for formal sleep study recommended. VBG with a pO2 of 18 likely an error as not anywhere consistent with his documented oxygenation. Given that he is currently stable, I do not feel an ABG is necessary at this time. History of CAD with CABG, history of SSS s/p pacemaker placement, paroxysmal A-fib, hyperlipidemia Follows with [place] cardiology. History of CABG x 3 back in 2014. History of pacemaker placement for bradycardia in 2014. He notably did have the pacemaker replaced on 07/23. Pacemaker report from 08/05 showed appropriate ventricular paced rhythm with 0 high ventricular rate episodes. EKG on this admit showed ventricular paced rhythm with heart rate in the 60s. Normotensive in the 120s to 130s systolic. Treated with IV Lasix as above. Okay to continue home Eliquis, statin, Coreg, and Entresto. 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 Will given IV furosemide while here, or until creatinine starts increasing. Continue carvedilol, Entresto. consider CT w/o contrast if worsens. Chronic conditions: CKD stage IV? Will monitor daily BMP and urine output while on IV Lasix as above. Chronic mild anemia and mild thrombocytopenia? Follows with Dr. Trivedi, last office visit on 08/08. Anemia is due to both iron deficiency and chronic disease. Has been taking p.o. iron as instructed and was on Retacrit injections for a period of time. Hemoglobin 11.2, platelet count 115 on this admission, both stable at baseline. Mild acute on chronic debility? PT/OT/case management consulted. Patient lives at home with his and has decent functional status at baseline. However, he has been more weak and fatigued than his normal likely due to volume overload in setting of CHF exacerbation as above. Appreciate therapy recommendations. History of gout? Continue home allopurinol. aflutter: anticoagulated with apixaban, carvedilol DVT prophylaxis: Not indicated, on Eliquis CODE STATUS: Full code, verified Charges/Coding Visit Charges Inpatient E&M: 30891 Subs Hosp L2
[2025-08-31] MEDS: SACUBITRIL/VALSARTAN 49-51 MG TABLET 1 EACH PO ×2 (09:28→21:24)
[2025-08-31] MEDS: APIXABAN 2.5 MG TABLET (WCH) PO ×2 (09:28→21:24)
--- NOTE | 2025-08-31 09:28 | NURSING ---
Dr. Nowak at pt bedside. This RN asks if he notices the pt appears to have a facial droop. Dr. Nowak performs assessment on pt and states his face is asymmetrical but most likely due to age and positioning at the moment. Unable to hold up left arm for 10 seconds but has shoulder rotater cuff injury per pt.
--- NOTE | 2025-08-31 13:00 | CASEMGMT ---
Addendum entered by Teri Ratliff 08/31/25 15:43: ANA CRISTINA MURPHY received call back from [facility], they are able to accept patient with planned start of care for Wednesday. ANA CRISTINA MURPHY udpated DC plan, Green sheet on chart. ANA CRISTINA MURPHY in to patient's room to update . voiced appreciation and had no further questions or concerns. Original Note: ANA CRISTINA MURPHY discussed discharge planning with . states she would like [facility] at discharge, declined [facility] list. ANA CRISTINA MURPHY made referral to [facility], awaiting acceptance. CM will continue to follow this patient and plan for a safe discharge.
--- NOTE | 2025-08-31 13:58 | PCM.CONS.P ---
[facility] Medical History Chronic kidney disease (CKD) Atherosclerosis of ute coronary artery of ute heart without angina pectoris Chest pain Iron deficiency anemia Anemia in chronic kidney disease (CKD) Atrial flutter Chronic kidney disease (CKD) Kidney disease, chronic, stage III (GFR 30-59 ml/min) Hypoxemia Pneumonia of both lower lobes GERD (gastroesophageal reflux disease) COVID-19 Ischemic cardiomyopathy Carotid artery disease Paroxysmal atrial fibrillation Sick sinus syndrome Brain bleed Congestive heart failure Acute electrocardiogram changes Home Medications ?Medication ?Instructions ?Recorded ?Last Taken ?Type allopurinol 100 mg tablet 100 mg PO BID Gout 11/24/18 11/27/23 History atorvastatin 40 mg tablet 40 mg PO QHS Cholesterol 11/24/18 11/26/23 History albuterol sulfate 90 mcg/actuation 2 puff inhalation Q4H PRN 12/25/20 Unknown Rx aerosol inhaler shortness of breath or wheezing #8.5 grams cholecalciferol (vitamin D3) 50 50 mcg PO DAILY bone health #1 TAB 03/09/22 11/17/23 Rx mcg (2,000 unit) tablet coenzyme Q10 100 mg tablet 100 mg PO DAILY general 09/24/22 11/16/23 History ascorbic acid (vitamin C) 500 mg 500 mg PO DAILY supplement 05/31/24 Unknown History tablet mecobalamin (vitamin B12) 1,000 1,000 mcg sublingual DAILY 05/31/24 Unknown History mcg disintegrating supplement tablet,sublingual pyridoxine (vitamin B6) 100 mg 100 mg PO DAILY supplement 05/31/24 Unknown History tablet zinc gluconate 50 mg tablet 50 mg PO DAILY supplement 05/31/24 Unknown History carvedilol 25 mg tablet 25 mg PO QHS BP/HR 07/15/24 07/23/25 History ferrous sulfate 325 mg (65 mg 325 mg PO DAILY supplement 07/15/24 Unknown History iron) tablet,delayed release apixaban 2.5 mg tablet 2.5 mg PO BID Blood thinner #180 12/04/24 Unknown Rx tabs sacubitril 49 mg-valsartan 51 mg 1 tab PO BID heart #180 tabs 12/04/24 07/23/25 Rx tablet (Entresto) potassium chloride 20 mEq 20 meq PO QDAY PRN with lasix 02/21/25 Unknown History tablet,extended release multivitamin 1 tab PO QDAY supplement 03/21/25 Unknown History nitroglycerin 0.4 mg sublingual 0.4 mg sublingual Q5M PRN 07/16/25 Unknown Rx tablet Cardiac/Chest Pain #25 tabs furosemide 40 mg tablet 40 mg PO DAILY edema #30 tabs 08/30/25 Unknown Rx Allergy/AdvReac Type Severity Reaction Status Date / Time levofloxacin (From Levaquin) Allergy Unknown unknown Verified 08/30/25 23:05 Family History Father CAD (coronary artery disease) Mother Heart disease Hypertension Heart failure Surgical History History of craniotomy History of permanent cardiac pacemaker placement History of coronary artery bypass graft x 3 History of brain surgery Social History household members: spouse Smoking Status: Never smoker alcohol intake: never substance use type: does not use caffeine: No ROS Constitutional Constitutional: Reports change in weight and weakness Eyes Eyes: Reports systems reviewed and no addt'l complaints, except as documented ENT HEENT: Reports systems reviewed and no addt'l complaints, except as documented Cardiovascular Cardiovascular: Reports arrhythmia on telemetry and weakness in extremities Respiratory/Chest Respiratory/Chest: Reports dyspnea and dyspnea on exertion Gastrointestinal Gastrointestinal: Reports as per HPI and anorexia Genitourinary Genitourinary: Reports as per HPI Musculoskeletal Musculoskeletal: Reports as per HPI Integumentary Integumentary: Reports as per HPI Neurologic Neurologic: Reports systems reviewed and no addt'l complaints, except as documented and lack of coordination Psychiatric Psychiatric: Reports systems reviewed and no addt'l complaints, except as documented Endocrine Endocrinology: Reports systems reviewed and no addt'l complaints, except as documented Hematologic/Lymphatic Hematologic/Lymphatic: Reports systems reviewed and no addt'l complaints, except as documented Allergic/Immunologic Allergic/Immunologic: Reports systems reviewed and no addt'l complaints, except as documented and as per HPI Physical Exam Const alert and oriented x3 General Appearance: cooperative HEENT normocephalic Neck General: trachea midline Lymph Lymphatic: lymphedema Resp Resp Narrative: Currently on nasal cannula 2 L Auscultation: wheezes and diminished lung sounds Cardio regular rate Rhythm: abnormal rhythm Peripheral Pulses: pulses 2+ throughout GI normal to inspection, nondistended, normoactive bowel sounds and soft to palpation Extremity General Extremity: edema bilateral (4+ pitting edema to the left ankles 2+ pitting edema to the right ankles) Skin no rashes or lesions noted Neuro CN's II-XII intact bilaterally Speech: speech normal Gait (Neuro): unable to assess gait Psych affect normal Charges/Coding Palliative Care Palliative Care: 56309 New Pt Consult 60-79 min HPI Current admission Current Code Status: Patient's CODE STATUS was changed from full code to DNR CC?a with intubation Associated Diagnosis: Heart failure with reduced EF, CKD 4, debility Consult Data Date of Consult: 08/31/25 Location of consult: PCU Reason for referral: Goals of care and CODE STATUS discussion Referral source: Palliative care diagnosis (Summary list): Heart failure with reduced EF, debility CKD 4 Palliative care services/treatment (Accepted, as consult): Accepted Case discussed with referring provider: Goals of care and CODE STATUS change HPI Narrative HPI Narrative: PAIN ASSESSMENT patient denies at this time Prior to meeting with the patient and his at bedside I reviewed documentation labs and radiological studies. I also had a discussion with the hospitalist and care Teri. I then met with the patient and his at bedside. I did review some self and the concept of palliative care in which they voluntarily excepted my services. Naren Easley) is an 89-year-old male who is very frail in presentation and kyphotic. He has medical history significant for heart failure with reduced EF of 20%, acute on chronic exacerbation, anxiety, CKD 4, A-flutter, and debility who was admitted to the hospital on 08/29/2025 for the same complaints and was discharged on 08/30/2025 to home. Patient was home for 6 hours when the patient's did bring her back to the emergency department because she felt that he had that gotten significantly worse during his time at home. He was readmitted to the hospital on 08/31/2025. Labs are significant for hyponatremia of 146, chloride of 110 and CO2 of 20. His BUN is 53, creatinine is 2.34 and his GFR is 26. I was consulted to discuss goals of care and CODE STATUS as, on admission, the patient was a full code. I did have an extensive discussion with Joseph and his about CPR and the benefits versus burdens considering his chronic illnesses and frailty. Patient's convinced him that it was in his best interest to transition to DNR CCA with intubation. Joseph was in agreement. I did change his CODE STATUS and I let the hospitalist and case management know about the change. I then discussed goals of care going forward in which they are hoping that Joseph can go back home with PT/OT services. As well as home health care. They stated that they would be interested in outpatient palliative care services. I then gave them a list of palliative services in their area that would meet their needs. [facility]. Referral has been sent. per hospitalist: NAREN COVARRUBIAS, is a 89 M who presents to the hospital after just being discharged with shortness of breath and increased weakness. He was just discharged from the hospital on 08/30/2025 and was here for heart failure exacerbation where his Lasix was increased to 40 mg p.o. daily. At the time he did not require any oxygen and did not have any significant weakness and his took him home at around 430 yesterday evening. Around 8 PM she noticed that he had fairly significant weakness and he needed her help to ambulate around the house with a walker. And then when she got up in the bed he was complaining of shortness of breath and could not get comfortable. She states that his primary care doctor was working on getting him oxygen and they had a voicemail from an oxygen supply company that she had not been able to respond to yet. In the emergency room he was 89 to 90% on room air however during my evaluation as he dozed off he did dipped to 87% on room air but did put him back on oxygen. The moment he woke up felt his oxygen went back up into the mid 90s. Palliative Assessment Advanced Directive - Current Admission Advance Directive: Advance Directive ON ADMISSION - REFERENCE Do you have a Healthcare Yes 08/31/25 02:19 Living Will? Is a Healthcare Living Will Yes, It is scanned in 08/31/25 02:19 present in the medical record? Do you have a Healthcare Power Yes 08/31/25 02:19 of Reservations Agent? Is a Healthcare Power of Yes, It is scanned in 08/31/25 02:19 Reservations Agent present in the medical rec Name of Medical Power of raj covarrubias, 08/31/25 02:19 Reservations Agent Do You Want Additional Declined 08/31/25 02:19 Information on Advanced Directives or Healthcare Proxy/DPOA comments: Patient's Psychosocial/Spiritual Information Living situation/Marital status: and lives with his in [place] in a ranch style home Geographic location: [place] Supports: Family Latter-Day/Betty or spiritual preference: Zoroastrian Spiritual distress: None Prior functional status: Patient utilizes a cane to walk Assistive devices at home: cane Cultrual issues: None Information about the patient as a person: Patient has an extensive woodworking shop in the back of his home. 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 Symptoms Palliative performance scale: 40% Palliative prognostic index: 8.0 Dyspnea symptoms: Moderate Nausea symptoms: None Vomiting symptoms: None Depression symptoms: None Anorexia symptoms: Mild Fatigue symptoms: Moderate Weakness symptoms: Moderate Confusion symptoms: None Objective Data Objective Data Patient's echocardiogram shows severe global hypokinesis of the left ventricular. LVEF 20%, mild reduced RV systolic dysfunction, moderate mitral valve insufficiency Vital Signs: Vital Signs Temp Pulse Resp BP Pulse Ox O2 Del Method O2 Flow Rate 97.3 F L 70 18 132/73 H 88 Nasal Cannula 2 08/31/25 08:55 08/31/25 08:55 08/31/25 08:55 08/31/25 08:55 08/31/25 09:29 08/31/25 13:28 08/31/25 13:28 Oxygen Flow Rate (L/min) 2 Oxygen Delivery Method Nasal Cannula Weight: 133 lb 6.075 oz Body Mass Index (BMI) 19.1 Intake & Output: Intake and Output for Last 24 Hours 08/29/25 08/30/25 08/31/25 23:59 23:59 23:59 Intake Total 400 / 400 Output Total 825 / 825 Balance -425 / -425 Lab / Micro Data Attestation: I reviewed the patient's lab results. Lab results narrative: See HPI 08/31/25 05:49 08/31/25 05:49 Labs: Laboratory Results - last 24 hr 08/30/25 23:22: WBC 5.4, RBC 3.28 L, Hgb 11.5 L, Hct 35.5 L, MCV 108.2 H, MCH 35.1 H, MCHC 32.4, RDW Std Deviation 64.3 H, RDW Coeff of Vanesa 16.1 H, Plt Count 119 L, MPV 11.6, Immature Gran % (Auto) 0.400, Neut % (Auto) 88.5 H, Lymph % (Auto) 3.4 L, [place] % (Auto) 5.6, Eos % (Auto) 1.7, Baso % (Auto) 0.4, Absolute Neuts (auto) 4.8, Absolute Lymphs (auto) 0.18 L, Nucleated RBC % 0, PT 22.6 H, INR 1.9, APTT 49.2 H, Sodium 144, Potassium 4.2, Chloride 108, Carbon Dioxide 20.2 L, Anion Gap 15, BUN 57 H, Creatinine 2.43 H, Estim Creat Clear Calc 18.31 L, Est GFR (MDRD) Non-Af 25 L, BUN/Creatinine Ratio 23.5 H, Glucose 140 H, Lactic Acid 1.8, Calcium 9.9, Total Bilirubin 1.07, AST 24, ALT 26, Alkaline Phosphatase 104, Total Protein 7.1, Albumin 4.4, Globulin 2.7, Albumin/Globulin Ratio 1.6 08/30/25 23:35: Urine Color Yellow, Urine Clarity Clear, Urine pH 5.0, Ur Specific [place] 1.015, Urine Protein 30 H, Urine Glucose (UA) Normal, Urine Ketones Negative, Urine Occult Blood Negative, Urine Nitrite Negative, Urine Bilirubin Negative, Urine Urobilinogen Normal, Ur Leukocyte Esterase Negative, Urine RBC 0-5 SEEN, Urine WBC 0-5 SEEN, Ur Squamous Epith Cells 0-5 SEEN, Urine Bacteria 0 SEEN, Urine Mucus 0 SEEN 08/31/25 05:49: WBC 4.5, RBC 3.20 L, Hgb 11.1 L, Hct 33.5 L, MCV 104.7 H, MCH 34.7 H, MCHC 33.1, RDW Std Deviation 62.4 H, RDW Coeff of Vanesa 16.3 H, Plt Count 109 L, MPV 11.2, Immature Gran % (Auto) 0.200, Neut % (Auto) 88.7 H, Lymph % (Auto) 3.8 L, [place] % (Auto) 6.0, Eos % (Auto) 1.1, Baso % (Auto) 0.2, Absolute Neuts (auto) 4.0, Absolute Lymphs (auto) 0.17 L, Nucleated RBC % 0, Sodium 146 H, Potassium 3.6, Chloride 110 H, Carbon Dioxide 20.0 L, Anion Gap 15, BUN 53 H, Creatinine 2.34 H, Estim Creat Clear Calc 18.31 L, Est GFR (MDRD) Non-Af 26 L, BUN/Creatinine Ratio 22.8 H, Glucose 131 H, Calcium 9.3 Micro: Microbiology 08/30/25 23:23 Mucosa - Nasopharyngeal Respiratory Panel (PCR) - Final ABG Data ABG results: ABG 08/30/25 23:30 Specimen Type GIOVANNI Sample Site Not entered O2 % 2.0 VBG pH 7.39 VBG pO2 18 L* VBG HCO3 21 L VBG Total CO2 22 L VBG O2 Sat (Calc) 27 L VBG Base Excess -4 L POC Mix VBG pCO2 Pt Tmp 35.3 L O2 Delivery Device Cannula Crit Call To/Read Back Yes Blood Gas Notified Whom marysol Blood Gas Notified Time 23:32:51 Radiography Diagnostic Testing: Radiology Impression Chest X-Ray 08/30/25 23:35 IMPRESSION: No significant interval change. Reading Location: [facility] Rhythm Strip Rhythm Strip: A-fib Ectopy: - (Intermittent A-fib/a flutter) Impressions & Recommendations Patient & Family Issues discussed with the patient and family: Goals of care going forward and CODE STATUS Patient goal: Patient wants to go home patient is agreeable to DNR CC?a with intubation Family goal: Patient's wants what ever is best for Joseph. Endorses CODE STATUS changed to DNR CC?a with intubation Ethical & Legal Ethical and legal: None Impressions Impressions: Patient would benefit from palliative care outpatient services for symptom management Recommentation Palliative recommendations: Palliative care outpatient services Encouter Achieved as a result of this Palliative Care Encounter: [ [id number], [phone]] minutes were spent in total for this visit which consisted, primarily of counseling and education dealing with the complex and emotionally intense issues of symptom management and palliative care in the setting of serious and potentially life-threatening illness. Review of documentation, labs and radiological studies. ?Patient/family had the opportunity to ask questions Plan (1) Heart failure: (2) Sepsis: (3) Elevated troponin: (4) CKD (chronic kidney disease): (5) Goals of care, counseling/discussion: (6) Palliative care encounter: PLAN: Plan *medical mgmt per primary team *Pt is open to outpatient palliative services and has chosen [facility] to provide that outpatient service. *return home with home PT/OT and HHC *open to SNF if needed *code status change to DNRCC-A with intubaiton
--- NOTE | 2025-08-31 15:17 | CASEMGMT ---
RN CM updated by Inpatient Palliative FISHING WORKER that patient and would like [facility]. Order received. CM to send referral to [facility].
--- NOTE | 2025-08-31 15:46 | CASEMGMT ---
TC to Ruthie ([facility] Liaison) for Palliative Care Referral. No answer, VM left. This sports writer faxed Palliative Care referral including Demo sheet, H&P, Palliative Care order, and Palliative Care Consult note to [phone]. Confirmed the fax was successfully sent. This sports writer also emailed [facility] at [email or web address] with referral.
[2025-09-01 03:22] VITALS: BP 100/48; PULSE 60; RESP 18; TEMP 37.2; O2SAT 95
[2025-09-01 05:42] LABS: Hematocrit 28.8 % (40-54); Hemoglobin 9.2 g/dL (13.0-16.5); Immature Granulocytes Count 0.020 X10^3/uL (0.0-0.0); Mean Corp Hgb Conc 31.9 g/dL (32-36); Mean Corpuscular Volume 107.5 fL (80-94); Mean Platelet Vol. 11.2 fl (6.2-12.0); NRBC Flagged by Analyzer 0 % (0-5); POSITIVE COUNT YES; POSITIVE DIFFERENTIAL YES; Platelet Count 85 K/mm3 (150-450); RBC Distribution Width CV 16.0 % (11.6-14.6); RBC Distribution Width SD 62.7 fl (35.1-43.9); Red Blood Count 2.68 M/mm3 (4.6-6.2); White Blood Count 3.9 K/mm3 (4.4-11.0)
[2025-09-01 06:04] LABS: Differential Indicated SCAN CRITERIA MET
[2025-09-01 06:13] LABS: AST(SGOT) 17 U/L (<=37); Alanine Aminotransfer ALT/SGPT 18 U/L (<=46); Albumin, Serum 3.4 g/dL (3.4-4.8); Alkaline Phosphatase 80 U/L (40-129); Anion Gap 14 (5-15); BUN 61 mg/dL (4-19); BUN/Creat Ratio 22.2 RATIO (10-20); Calcium,Total 8.5 mg/dL (7.6-11.0); Carbon Dioxide 18.2 mmol/L (21.0-32.0); Chloride 110 mmol/L (98-108); Estimated Creatinine Clearance 15.91 ml/min (50-250); Globulin 2.2 g/dL (2.2-4.2); Glucose 120 mg/dL (70-99); Potassium 3.5 mmol/L (3.3-5.1)
--- NOTE | 2025-09-01 10:10 | PCM.PN.HOSP ---
Subjective Subjective Wanting to go home. Objective Data Objective Data Vital Signs: Vital Signs Temp Pulse Resp BP Pulse Ox O2 Del Method O2 Flow Rate 37.2 C 60 18 100/48 L 95 Nasal Cannula 2 09/01/25 03:22 09/01/25 03:22 09/01/25 03:22 09/01/25 03:22 09/01/25 03:22 09/01/25 03:22 09/01/25 03:22 Oxygen Flow Rate (L/min) 2 Oxygen Delivery Method Nasal Cannula Weight: 62 kg Body Mass Index (BMI) 19.1 Intake & Output: Intake and Output for Last 24 Hours 08/30/25 08/31/25 09/01/25 23:59 23:59 23:59 Intake Total 700 / 700 Output Total 1125 / 1125 Balance -425 / -425 -51 / -51 Lab / Micro Data 09/01/25 04:49 09/01/25 04:49 Labs: Laboratory Results - last 24 hr 09/01/25 04:49: WBC 3.9 L, RBC 2.68 L, Hgb 9.2 L, Hct 28.8 L, MCV 107.5 H, MCH 34.3 H, MCHC 31.9 L, RDW Std Deviation 62.7 H, RDW Coeff of Vanesa 16.0 H, Plt Count 85 L, MPV 11.2, Immature Gran % (Auto) 0.500, Neut % (Auto) 75.4 H, Lymph % (Auto) 9.2 L, [place] % (Auto) 7.7, Eos % (Auto) 6.9 H, Baso % (Auto) 0.3, Absolute Neuts (auto) 2.9, Absolute Lymphs (auto) 0.36 L, Nucleated RBC % 0, Platelet Estimate MOD DEC, Sodium 142, Potassium 3.5, Chloride 110 H, Carbon Dioxide 18.2 L, Anion Gap 14, BUN 61 H, Creatinine 2.76 H, Estim Creat Clear Calc 15.91 L, Est GFR (MDRD) Non-Af 21 L, BUN/Creatinine Ratio 22.2 H, Glucose 120 H, Calcium 8.5, Total Bilirubin 0.64, AST 17, ALT 18, Alkaline Phosphatase 80, Total Protein 5.6 L, Albumin 3.4, Globulin 2.2, Albumin/Globulin Ratio 1.5 Micro: Microbiology 08/30/25 23:35 Urine, Catheterized Urine Culture - Preliminary Culture exhibits no growth. 08/30/25 23:23 Mucosa - Nasopharyngeal Respiratory Panel (PCR) - Final Rhythm Strip Rhythm Strip: A-fib Ectopy: - (Intermittent A-fib/a flutter) Physical Exam Const Constitutional Narrative: up in chair. no respiratory distress. no conversational dyspnea. Resp normal respiratory effort and no retractions Resp Narrative: faint bilateral crackles. Cardio regular rate, regular rhythm, S1 normal heart sound and S2 normal heart sound GI normal to inspection, nondistended, normoactive bowel sounds, soft to palpation, non-tender and non-distended Extremity normal to inspection Neuro Sensorium / Orientation: awake and alert Psych affect normal Assessment & Plan Assessment/Plan (1) Heart failure: PLAN: Plan Debility noted weakness at home. PT OT reevaluate and treat. Notably, pt seen by PT and OT on 08/30 and no therapy was recommended at that time. However, now pt walked 55' w FWW and CGA. Additional therapy now recommended. Given advanced age, multiple comorbidities loss of strength easily occurs. case mgmt notes reviewed. Looking at [facility]. [facility] able to accept on wednesday. Suspected [place] hypoxia when dozed off. outpt [facility] eval for formal sleep study recommended. VBG with a pO2 of 18 likely an error as not anywhere consistent with his documented oxygenation. Given that he is currently stable, I do not feel an ABG is necessary at this time. History of CAD with CABG, history of SSS s/p pacemaker placement, paroxysmal A-fib, hyperlipidemia Follows with [facility]. History of CABG x 3 back in 2014. History of pacemaker placement for bradycardia in 2014. He notably did have the pacemaker replaced on 07/23. Pacemaker report from 08/05 showed appropriate ventricular paced rhythm with 0 high ventricular rate episodes. EKG on this admit showed ventricular paced rhythm with heart rate in the 60s. Normotensive in the 120s to 130s systolic. Treated with IV Lasix as above. Okay to continue home Eliquis, statin, Coreg, and Entresto. acute on Chronic HFrEF: EF 20%, unchanged from 2023. Will given IV furosemide while here, or until creatinine starts increasing. Continue carvedilol, Entresto. consider CT w/o contrast if worsens. -251cc thus far this admission. Moderate protein calorie malnutrition weight down to 62kg, lower than it has been (previously had been around 67kg), not all of this is due to fluids. Nutrition consult. Magic Cup ordered. Chronic conditions: CKD stage IV? Will monitor daily BMP and urine output while on IV Lasix as above. Chronic mild anemia and mild thrombocytopenia? Follows with Dr. Trivedi, last office visit on 08/08. Anemia is due to both iron deficiency and chronic disease. Has been taking p.o. iron as instructed and was on Retacrit injections for a period of time. Hg down to 9.2. Will monitor for now. Mild acute on chronic debility? PT/OT/case management consulted. Patient lives at home with his and has decent functional status at baseline. However, he has been more weak and fatigued than his normal likely due to volume overload in setting of CHF exacerbation as above. Appreciate therapy recommendations. History of gout? Continue home allopurinol. aflutter: anticoagulated with apixaban, carvedilol DVT prophylaxis: Not indicated, on Eliquis CODE STATUS: Full code, verified Pt does not need SNF, but C. Discharged on the and came back the same day. Would like to further optimized with fluid status with IV furosemide to get him as tuned up as possible prior to discharge given how easily he came back after being discharged last time. Hopefully, he'll be ready in 1-2 days. Charges/Coding Visit Charges Inpatient E&M: 54218 Subs Hosp L2
[2025-09-01 10:12] VITALS: BP 104/57; PULSE 61; RESP 17; TEMP 36.4; O2SAT 94
[2025-09-01] MEDS: SACUBITRIL/VALSARTAN 49-51 MG TABLET 1 EACH PO ×2 (10:14→21:05)
[2025-09-01] MEDS: APIXABAN 2.5 MG TABLET (WCH) PO ×2 (10:15→21:05)
[2025-09-01] MEDS: 0.9% Saline Lock 10 ML Syringe IV ×2 (10:15→18:08)
[2025-09-01 10:26] VITALS: O2SAT 87; O2SAT 92; O2SAT 94
[2025-09-01 10:27] VITALS: O2SAT 94
[2025-09-01 16:03] VITALS: BP 95/67; PULSE 65; RESP 17; TEMP 36.6; O2SAT 97
[2025-09-01 21:00] VITALS: BP 108/57; PULSE 64; RESP 20; TEMP 36.7; O2SAT 94
[2025-09-02 04:30] VITALS: BP 106/48; PULSE 65; RESP 18; TEMP 36.9; O2SAT 94
[2025-09-02 06:57] LABS: Hematocrit 29.1 % (40-54); Hemoglobin 9.4 g/dL (13.0-16.5); Immature Granulocytes Count 0.010 X10^3/uL (0.0-0.0); Mean Corp Hgb Conc 32.3 g/dL (32-36); Mean Corpuscular Volume 105.8 fL (80-94); Mean Platelet Vol. 11.5 fl (6.2-12.0); NRBC Flagged by Analyzer 0 % (0-5); POSITIVE COUNT YES; Platelet Count 89 K/mm3 (150-450); RBC Distribution Width CV 15.5 % (11.6-14.6); RBC Distribution Width SD 60.9 fl (35.1-43.9); Red Blood Count 2.75 M/mm3 (4.6-6.2); White Blood Count 4.1 K/mm3 (4.4-11.0)
[2025-09-02 07:21] LABS: Anion Gap 12 (5-15); BUN 71 mg/dL (4-19); BUN/Creat Ratio 23.9 RATIO (10-20); Calcium,Total 8.4 mg/dL (7.6-11.0); Carbon Dioxide 20.0 mmol/L (21.0-32.0); Chloride 109 mmol/L (98-108); Estimated Creatinine Clearance 14.84 ml/min (50-250); Glucose 107 mg/dL (70-99); Potassium 3.4 mmol/L (3.3-5.1)
[2025-09-02 08:36] VITALS: BP 109/68; PULSE 64; RESP 15; TEMP 36.5; O2SAT 94
[2025-09-02] MEDS: SACUBITRIL/VALSARTAN 49-51 MG TABLET 1 EACH PO ×2 (08:41→20:27)
[2025-09-02] MEDS: APIXABAN 2.5 MG TABLET (WCH) PO ×2 (08:42→20:27)
--- NOTE | 2025-09-02 09:08 | PCM.PN.HOSP ---
Subjective Subjective Saw patient at bedside this morning. He was sitting comfortably in bedside chair, breathing comfortably on room air at rest, conversing normally, in no acute distress. Reports fairly good urine output yesterday and overnight. No new concerns this morning. Objective Data Objective Data Vital Signs: Vital Signs Temp Pulse Resp BP Pulse Ox O2 Del Method O2 Flow Rate 97.7 F L 64 15 109/68 94 Room Air 2 09/02/25 08:36 09/02/25 08:36 09/02/25 08:36 09/02/25 08:36 09/02/25 08:36 09/02/25 08:36 09/01/25 03:22 Oxygen Flow Rate (L/min) 2 Oxygen Delivery Method Room Air Weight: 62 kg Body Mass Index (BMI) 19.1 Intake & Output: Intake and Output for Last 24 Hours 08/31/25 09/01/25 09/02/25 23:59 23:59 23:59 Intake Total 700 / 700 675 / 675 Output Total 1125 / 1125 451 / 601 150 / 150 Balance -425 / -425 224 / 74 -150 / -150 Lab / Micro Data 09/02/25 06:02 09/02/25 06:02 Labs: Laboratory Results - last 24 hr 09/02/25 06:02: WBC 4.1 L, RBC 2.75 L, Hgb 9.4 L, Hct 29.1 L, MCV 105.8 H, MCH 34.2 H, MCHC 32.3, RDW Std Deviation 60.9 H, RDW Coeff of Vanesa 15.5 H, Plt Count 89 L, MPV 11.5, Immature Gran % (Auto) 0.200, Neut % (Auto) 68.1, Lymph % (Auto) 15.1 L, [place] % (Auto) 7.8, Eos % (Auto) 8.3 H, Baso % (Auto) 0.5, Absolute Neuts (auto) 2.8, Absolute Lymphs (auto) 0.62 L, Nucleated RBC % 0, Sodium 141, Potassium 3.4, Chloride 109 H, Carbon Dioxide 20.0 L, Anion Gap 12, BUN 71 H, Creatinine 2.96 H, Estim Creat Clear Calc 14.84 L, Est GFR (MDRD) Non-Af 20 L, BUN/Creatinine Ratio 23.9 H, Glucose 107 H, Calcium 8.4 Micro: Microbiology 08/30/25 23:35 Urine, Catheterized Urine Culture - Final Culture exhibits no growth. 08/30/25 23:23 Mucosa - Nasopharyngeal Respiratory Panel (PCR) - Final Rhythm Strip Rhythm Strip: A-fib Ectopy: - (Intermittent A-fib/a flutter) Physical Exam Const Constitutional Narrative: up in chair. no respiratory distress. no conversational dyspnea. Resp normal respiratory effort and no retractions Resp Narrative: faint bilateral crackles. Cardio regular rate, regular rhythm, S1 normal heart sound and S2 normal heart sound GI normal to inspection, nondistended, normoactive bowel sounds, soft to palpation, non-tender and non-distended Extremity normal to inspection Neuro Sensorium / Orientation: awake and alert Psych affect normal Assessment & Plan Assessment/Plan (1) Heart failure: PLAN: Plan Patient is an 89-year-old male who presented to [facility] ED on 08/31/2025 with shortness of breath and worsening weakness. Debility noted weakness at home. PT OT reevaluate and treat. Notably, pt seen by PT and OT on 08/30 and no therapy was recommended at that time. However, now pt walked 55' w FWW and CGA. Additional therapy now recommended. Given advanced age, multiple comorbidities loss of strength easily occurs. case mgmt notes reviewed. Looking at [facility]. [facility] able to accept on Wednesday. 09/02: Patient stable from yesterday. Tentatively planning for discharge home tomorrow and home health care will be able to see him on Wednesday. Suspected [place] hypoxia when dozed off. outpt [facility] eval for formal sleep study recommended. VBG with a pO2 of 18 likely an error as not anywhere consistent with his documented oxygenation. Given that he is currently stable, I do not feel an ABG is necessary at this time. History of CAD with CABG, history of SSS s/p pacemaker placement, paroxysmal A-fib, hyperlipidemia Follows with [place] [facility]. History of CABG x 3 back in 2014. History of pacemaker placement for bradycardia in 2014. He notably did have the pacemaker replaced on 07/23. Pacemaker report from 08/05 showed appropriate ventricular paced rhythm with 0 high ventricular rate episodes. EKG on this admit showed ventricular paced rhythm with heart rate in the 60s. Normotensive in the 120s to 130s systolic. Okay to continue home Eliquis, statin, Coreg, and Entresto. Lasix management as below. acute on Chronic HFrEF: EF 20%, unchanged from 2023. Will given IV furosemide while here, or until creatinine starts increasing. Continue carvedilol, Entresto. consider CT w/o contrast if worsens. -251cc thus far this admission. 09/02: Creatinine unfortunately is worsening. Was at baseline 2.3 on admission on 08/31, then worsened to 2.76 on 09/01 and then to 2.96 on 09/02. IV Lasix discontinued and will hold off on p.o. Lasix for today, with tentative plan to start p.o. Lasix 60 mg daily tomorrow. Follow-up BMP tomorrow. Moderate protein calorie malnutrition weight down to 62kg, lower than it has been (previously had been around 67kg), not all of this is due to fluids. Nutrition following. Magic Cup ordered. Mild creatinine elevation in setting of CKD stage IV Baseline creatinine around 2.3. Creatinine worsening on IV Lasix as above so discontinued on 09/02 with tentative plan to start p.o. Lasix 60 mg daily on 09/03. Monitor daily BMP and urine output. Chronic conditions: Chronic mild anemia and mild thrombocytopenia? Follows with Dr. Trivedi, last office visit on 08/08. Anemia is due to both iron deficiency and chronic disease. Has been taking p.o. iron as instructed and was on Retacrit injections for a period of time. Hg down to 9.2. Will monitor for now. History of gout? Continue home allopurinol. aflutter: anticoagulated with apixaban, carvedilol DVT prophylaxis: Not indicated, on Eliquis CODE STATUS: Full code, verified Expected disposition: Plan for discharge home tomorrow with [facility] to see patient on Tuesday 09/04 as above. Total clinical time spent by myself addressing the patient's medical issues, reviewing all the data, and collaborating with patient's care team: 40 minutes. Charges/Coding Visit Charges Inpatient E&M: 08706 Subs Hosp L2
[2025-09-02] MEDS: Cholecalciferol (VIT D3) 25 MCG TABLET (1,000 UNITS) 50 MCG PO (09:59)
[2025-09-02 12:14] VITALS: O2SAT 95
[2025-09-02 12:31] VITALS: O2SAT 79; O2SAT 90; O2SAT 94
[2025-09-02 17:36] VITALS: BP 108/76; PULSE 64; RESP 17; TEMP 36.6; O2SAT 96
[2025-09-02 20:22] VITALS: BP 110/85; PULSE 62; RESP 20; TEMP 36.8; O2SAT 100
[2025-09-03 04:32] VITALS: BP 111/56; PULSE 63; RESP 18; TEMP 36.5; O2SAT 97
[2025-09-03 06:41] LABS: Hematocrit 31.9 % (40-54); Hemoglobin 10.3 g/dL (13.0-16.5); Mean Corp Hgb Conc 32.3 g/dL (32-36); Mean Corpuscular Volume 106.3 fL (80-94); Mean Platelet Vol. 10.4 fl (6.2-12.0); Platelet Count 113 K/mm3 (150-450); RBC Distribution Width CV 15.4 % (11.6-14.6); RBC Distribution Width SD 60.0 fl (35.1-43.9); Red Blood Count 3.00 M/mm3 (4.6-6.2); White Blood Count 4.3 K/mm3 (4.4-11.0)
[2025-09-03 07:03] LABS: Anion Gap 14 (5-15); BUN 79 mg/dL (4-19); BUN/Creat Ratio 25.6 RATIO (10-20); Calcium,Total 9.1 mg/dL (7.6-11.0); Carbon Dioxide 20.8 mmol/L (21.0-32.0); Chloride 109 mmol/L (98-108); Estimated Creatinine Clearance 14.31 ml/min (50-250); Glucose 100 mg/dL (70-99); Potassium 3.7 mmol/L (3.3-5.1)
[2025-09-03 09:09] VITALS: BP 109/62; PULSE 65; RESP 18; TEMP 36.2; O2SAT 93
[2025-09-03] MEDS: APIXABAN 2.5 MG TABLET (WCH) PO (09:10)
[2025-09-03] MEDS: Cholecalciferol (VIT D3) 25 MCG TABLET (1,000 UNITS) 50 MCG PO (09:11)
[2025-09-03] MEDS: SACUBITRIL/VALSARTAN 49-51 MG TABLET 1 EACH PO (09:11)
--- NOTE | 2025-09-03 09:42 | DCINST_ITS ---
Discharge Instructions
--- NOTE | 2025-09-03 09:42 | PCM.DC ---
Discharge Instructions DC O2, CPAP, BIPAP needs Home O2 Discharge instructions: No Dressing / Incision Discharge Activity: Return to Normal Activity Weight Bearing Status: Weight bearing as tolerated Dressing / Incision Call your doctor if you observe: Fever of 101 or Higher, Coldness, Increased Pain, Numbness or Tingling, Change in Color, Inability to urinate, Inability to have a bowel movement, Shortness of breath, Dizziness, Fainting spells, Swelling in the ankles, Chest pain, Prolonged hiccupping, Increased palpitations (irregular heartbeat) and Calf discomfort Follow Up Care When: IN 2 WEEKS Test Results: Test results from this visit will be discussed in further detail at your follow-up appointment, if applicable. Discharge Plan Admission Admit Date/Time: 08/31/25 01:57 Attending Provider: Dav Renteria Primary Care Provider: Cheli Grace Consulting Providers: Richie García; Kim Aranda; Gómez Nowak; Sanjeev Sandhu Discharge Orders/Prescriptions Prescriptions: Continued albuterol sulfate 90 mcg/actuation HFA aerosol inhaler 2 puff INHALATION Q4H PRN (Reason: shortness of breath or wheezing) Qty: 8.5 6RF Rx Instructions: administer with spacer coenzyme Q10 100 mg tablet 100 mg PO DAILY Rx Instructions: pt takes in the am ascorbic acid (vitamin C) 500 mg tablet 500 mg PO DAILY zinc gluconate 50 mg tablet 50 mg PO DAILY pyridoxine (vitamin B6) 100 mg tablet 100 mg PO DAILY mecobalamin (vitamin B12) 1,000 mcg tablet,disintegrating 1,000 mcg sublingual DAILY Patient Comments: take one tablet 2 days (wed and ) Rx Instructions: place tablet under tongue and allow to dissolve for at least30 secs before swallowing potassium chloride 20 mEq tablet extended release 20 meq PO QDAY PRN (Reason: with lasix) multivitamin Tablet 1 tab PO QDAY atorvastatin 40 MG tablet 40 mg PO QHS allopurinol 100 MG tablet 100 mg PO BID ferrous sulfate 325 mg (65 mg iron) tablet,delayed release (DR/EC) 325 mg PO DAILY carvedilol 25 mg tablet 25 mg PO QHS Rx Instructions: must administer with a meal/food cholecalciferol (vitamin D3) 50 mcg (2,000 unit) tablet 50 mcg PO DAILY Qty: 1 0RF sacubitril-valsartan [Entresto] 49-51 mg tablet 1 tab PO BID Qty: 180 3RF apixaban 2.5 mg tablet 2.5 mg PO BID Qty: 180 4RF nitroglycerin 0.4 mg tablet, sublingual 0.4 mg sublingual Q5M PRN (Reason: Cardiac/Chest Pain) Qty: 25 3RF Changed furosemide 40 mg tablet 60 mg PO DAILY Qty: 30 0RF Referrals / Follow Up: Cheli Grace MD [Primary Care Provider, Family Practice] - 09/11/25 4:20 pm Mercedez Mckenna MD [Non-Staff, Family Practice] Lul Simpson PA [Med Staff - [facility] Practice Prof, Cardiology] - Within 2 Weeks Disposition Disposition (needs filled in before D/C Order can be placed): Home Health Service
--- NOTE | 2025-09-03 12:53 | PCM.DC.SUM ---
Providers Date of Admission: 08/31/25 Primary Care Physician: Cheli Grace MD Consultations 08/31/25 13:24 Consult: Inpatient Palliative Care Routine Consulting Provider: Kim Aranda Reason for Consult: Symptom management EMERGENT Consult: No MD Notified: Yes Date Notified: 08/31/25 Time Notified: 13:25 Method of Notification: Verbal Reason For Visit: WEAKNESS AND HYPOXIA Diagnosis Discharge Diagnosis (1) Heart failure: Status: Acute Code(s): I50.9 - Heart failure, unspecified Plan Patient is an 89-year-old male who presented to [facility] ED on 08/31/2025 with shortness of breath and worsening weakness. Acute on chronic debility: Patient admitted in PCU. PT and OT was done. The patient walked 55' w FWW and CGA. Additional therapy now recommended. Given advanced age, multiple comorbidities loss of strength easily occurs. PT recommended home health. Stiffness mobility score 18. Home health is being addressed patient is being discharged. Patient further said he walked around the nursing station. Suspected obstructive sleep apnea outpt [facility] eval for formal sleep study recommended. VBG with a pO2 of 18 likely an error as not anywhere consistent with his documented oxygenation ABG was thought not necessary as patient was hemodynamically stable. Qualifying Home oxygen test ordered History of CAD with CABG, history of SSS s/p pacemaker placement, paroxysmal A-fib, hyperlipidemia Follows with [place] [facility]. History of CABG x 3 back in 2014. History of pacemaker placement for bradycardia in 2014. He notably did have the pacemaker replaced on 07/23. Pacemaker report from 08/05 showed appropriate ventricular paced rhythm with 0 high ventricular rate episodes. EKG on this admit showed ventricular paced rhythm with heart rate in the 60s. Patient blood pressure about 11/03 to 11/04/1954. Okay to continue home Eliquis, statin, Coreg, and Entresto. Furosemide dose increased to 60 mg daily. acute on Chronic HFrEF: EF 20%, unchanged from 2023. Will given IV furosemide while here, or until creatinine starts increasing. Continue carvedilol, Entresto. consider CT w/o contrast if worsens. -251cc thus far this admission. 09/02: Creatinine unfortunately is worsening. Was at baseline 2.3 on admission on 08/31, then worsened to 2.76 on 09/01 and then to 2.96 on 09/02. IV Lasix discontinued and will hold off on p.o. Lasix for today, with tentative plan to start p.o. Lasix 60 mg daily tomorrow. Follow-up BMP tomorrow. Moderate protein calorie malnutrition weight down to 62kg, lower than it has been (previously had been around 67kg), not all of this is due to fluids. Nutrition following. Magic Cup ordered. CKD stage IV Baseline creatinine around 2.3. Creatinine worsening on IV Lasix as above so discontinued on 09/02 with tentative plan to start p.o. Lasix 60 mg daily on 09/03. Monitor daily BMP and urine output. 09/03: Creatinine 3.07 progressively increasing. Patient is elderly and is not a candidate for dialysis. Patient is going to follow-up palliative/hospice care at home. Chronic conditions: Chronic mild anemia and mild thrombocytopenia? Follows with Dr. Trivedi, last office visit on 08/08. Anemia is due to both iron deficiency and chronic disease. Has been taking p.o. iron as instructed and was on Retacrit injections for a period of time. Hg down to 9.2. Will monitor for now. History of gout? Continue home allopurinol. aflutter: anticoagulated with apixaban, carvedilol DVT prophylaxis: Not indicated, on Eliquis CODE STATUS: DNR CCA with intubation, CODE STATUS was changed previously. Discharge medication reconciliation done. Discharge follow-up instructions completed. Discharge process discussed with the patient and all questions were answered to patient's satisfaction. Follow with PCP in 1 to 2 weeks Total time spent, exact 35 minutes on discharge meds reconciliation, examination, coordination of care with nurses and ancillary staff, review of imaging and blood test and discussion with the patient on follow-up instructions. Medications at Discharge Home Medications allopurinol 100 mg tablet 100 mg PO BID Gout 11/24/18 atorvastatin 40 mg tablet 40 mg PO QHS Cholesterol 11/24/18 albuterol sulfate 90 mcg/actuation aerosol inhaler 2 puff inhalation Q4H PRN shortness of breath or wheezing #8.5 grams 12/25/20 cholecalciferol (vitamin D3) 50 mcg (2,000 unit) tablet 50 mcg PO DAILY bone health #1 TAB 03/09/22 coenzyme Q10 100 mg tablet 100 mg PO DAILY general 09/24/22 ascorbic acid (vitamin C) 500 mg tablet 500 mg PO DAILY supplement 05/31/24 mecobalamin (vitamin B12) 1,000 mcg disintegrating tablet,sublingual 1,000 mcg sublingual DAILY supplement 05/31/24 pyridoxine (vitamin B6) 100 mg tablet 100 mg PO DAILY supplement 05/31/24 zinc gluconate 50 mg tablet 50 mg PO DAILY supplement 05/31/24 carvedilol 25 mg tablet 25 mg PO QHS BP/HR 07/15/24 ferrous sulfate 325 mg (65 mg iron) tablet,delayed release 325 mg PO DAILY supplement 07/15/24 apixaban 2.5 mg tablet 2.5 mg PO BID Blood thinner #180 tabs 12/04/24 sacubitril 49 mg-valsartan 51 mg tablet (Entresto) 1 tab PO BID heart #180 tabs 12/04/24 Held on 09/03/25. Instructions: Hold Entresto for 3 days and then resume lower dose half tablet twice daily potassium chloride 20 mEq tablet,extended release 20 meq PO QDAY PRN with lasix 02/21/25 multivitamin 1 tab PO QDAY supplement 03/21/25 nitroglycerin 0.4 mg sublingual tablet 0.4 mg sublingual Q5M PRN Cardiac/Chest Pain #25 tabs 07/16/25 furosemide 40 mg tablet 60 mg (1.5 x 40 mg) PO DAILY edema #30 tabs 09/03/25 Held on 09/03/25. Instructions: Hold furosemide for 2 days and then resume 60 mg daily. Physical Exam Narrative Seen and examined. Patient has a Sinclair catheter and is ordered to be removed leg swelling is improved. Patient stated he walked around the nursing station. He had BM yesterday. Physical exam General: Alert, Oriented x3, Cooperative HEENT: Atraumatic, PERRLA, EOMI, Normocephalic. Oral: No Gingival or Mucosal Lesions/ Ulcerations Neck: Supple, No JVD, Negative Carotid Bruits Chest wall/Lungs: Air entry diminished in bilateral lung bases. No crepitation/rhonchi Cardiovascular: Systolic murmur, regular sinus rhythm. Abdomen: Bowel Sounds Present, Soft, Non Tender, Non-Distended : Sinclair catheter. No renal angle tenderness. No suprapubic tenderness. Extremities: Minimal pedal edema, Capillary Refill Less than 3 Seconds Skin: No rashes, No breakdown Musculoskeletal: No Tenderness to Palpation of Joints or Extremities Neurological: Cranial nerves II-XII grossly intact, DTR 2+/4. No acute focal neurological deficit. Psych/Mental Status: Flat affect. Weight / BMI Weight Weight: 136 lb 10.986 oz Body Mass Index (BMI) 19.1 ABG / Lab / Microbiology Data 09/03/25 06:33 09/03/25 06:33 Laboratory: Laboratory Results - last 24 hr 09/03/25 06:33: WBC 4.3 L, RBC 3.00 L, Hgb 10.3 L, Hct 31.9 L, MCV 106.3 H, MCH 34.3 H, MCHC 32.3, RDW Std Deviation 60.0 H, RDW Coeff of Vanesa 15.4 H, Plt Count 113 L, MPV 10.4, Sodium 144, Potassium 3.7, Chloride 109 H, Carbon Dioxide 20.8 L, Anion Gap 14, BUN 79 H, Creatinine 3.07 H, Estim Creat Clear Calc 14.31 L, Est GFR (MDRD) Non-Af 19 L, BUN/Creatinine Ratio 25.6 H, Glucose 100 H, Calcium 9.1 Microbiology: Microbiology 08/30/25 23:50 Blood Culture (Wb) - Anticubital Right Blood Culture - Preliminary No growth in 48 hours. 08/30/25 23:22 Blood Culture (Wb) - Anticubital Right Blood Culture - Preliminary No growth in 48 hours. 08/30/25 23:35 Urine, Catheterized Urine Culture - Final Culture exhibits no growth. 08/30/25 23:23 Mucosa - Nasopharyngeal Respiratory Panel (PCR) - Final D/C Instructions Weight Bearing Status: Weight bearing as tolerated Call your doctor if you observe: Fever of 101 or Higher, Coldness, Increased Pain, Numbness or Tingling, Change in Color, Inability to urinate, Inability to have a bowel movement, Shortness of breath, Dizziness, Fainting spells, Swelling in the ankles, Chest pain, Prolonged hiccupping, Increased palpitations (irregular heartbeat) and Calf discomfort DC O2, CPAP, BIPAP Needs Home O2 Discharge instructions: No When: IN 2 WEEKS Meaningful Use Info Meaningful Use Meaningful Use Diagnoses (Choose all that apply): None applicable Discharge Plan Admission Admit Date/Time: 08/31/25 01:57 Attending Provider: Dav Renteria Primary Care Provider: Cheli Grace Consulting Providers: Richie García; Kim Aranda; Gómez Nowak; Sanjeev Sandhu Instructions Additional Instructions / Restrictions: Repeat kidney function/BMP in 2 days. Follow with PCP Discharge Orders/Prescriptions Prescriptions: Continued albuterol sulfate 90 mcg/actuation HFA aerosol inhaler 2 puff INHALATION Q4H PRN (Reason: shortness of breath or wheezing) Qty: 8.5 6RF Rx Instructions: administer with spacer coenzyme Q10 100 mg tablet 100 mg PO DAILY Rx Instructions: pt takes in the am ascorbic acid (vitamin C) 500 mg tablet 500 mg PO DAILY zinc gluconate 50 mg tablet 50 mg PO DAILY pyridoxine (vitamin B6) 100 mg tablet 100 mg PO DAILY mecobalamin (vitamin B12) 1,000 mcg tablet,disintegrating 1,000 mcg sublingual DAILY Patient Comments: take one tablet 2 days (wed and ) Rx Instructions: place tablet under tongue and allow to dissolve for at least30 secs before swallowing potassium chloride 20 mEq tablet extended release 20 meq PO QDAY PRN (Reason: with lasix) multivitamin Tablet 1 tab PO QDAY atorvastatin 40 MG tablet 40 mg PO QHS allopurinol 100 MG tablet 100 mg PO BID ferrous sulfate 325 mg (65 mg iron) tablet,delayed release (DR/EC) 325 mg PO DAILY carvedilol 25 mg tablet 25 mg PO QHS Rx Instructions: must administer with a meal/food cholecalciferol (vitamin D3) 50 mcg (2,000 unit) tablet 50 mcg PO DAILY Qty: 1 0RF apixaban 2.5 mg tablet 2.5 mg PO BID Qty: 180 4RF nitroglycerin 0.4 mg tablet, sublingual 0.4 mg sublingual Q5M PRN (Reason: Cardiac/Chest Pain) Qty: 25 3RF Changed furosemide 40 mg tablet 60 mg PO DAILY Qty: 30 0RF Held sacubitril-valsartan [Entresto] 49-51 mg tablet 1 tab PO BID Qty: 180 3RF Hold Instructions: Hold Entresto for 3 days and then resume lower dose half tablet twice daily Referrals / Follow Up: Cheli Grace MD [Primary Care Provider, Family Practice] - 09/11/25 4:20 pm Stefany Norwood MD [Med Staff - Consulting, Nephrology] - Within 2 Weeks Lul Simpson PA [Med Staff - Adv Practice Prof, Cardiology] - Within 2 Weeks Disposition Disposition (needs filled in before D/C Order can be placed): Home Health Service Charges/Coding Visit Charges Inpatient E&M: 66243 Disch Hosp >30min
[2025-09-03 13:42] VITALS: O2SAT 94; O2SAT 97
--- NOTE | 2025-09-03 14:11 | PHA.DC_ITS ---
Pharmacy [place] Med Reconciliation
--- NOTE | 2025-09-03 14:11 | PHA.DC.MR.R ---
Pharmacy [place] Med Reconciliation Pharmacy Service has performed discharge medication reconciliation for this patient. The patient's discharge medication list was reviewed for discrepancies and discrepancies were resolved. Medications at Discharge Home Medications allopurinol 100 mg tablet 100 mg PO BID Gout 11/24/18 atorvastatin 40 mg tablet 40 mg PO QHS Cholesterol 11/24/18 albuterol sulfate 90 mcg/actuation aerosol inhaler 2 puff inhalation Q4H PRN shortness of breath or wheezing #8.5 grams 12/25/20 cholecalciferol (vitamin D3) 50 mcg (2,000 unit) tablet 50 mcg PO DAILY bone health #1 TAB 03/09/22 coenzyme Q10 100 mg tablet 100 mg PO DAILY general 09/24/22 ascorbic acid (vitamin C) 500 mg tablet 500 mg PO DAILY supplement 05/31/24 mecobalamin (vitamin B12) 1,000 mcg disintegrating tablet,sublingual 1,000 mcg sublingual DAILY supplement 05/31/24 pyridoxine (vitamin B6) 100 mg tablet 100 mg PO DAILY supplement 05/31/24 zinc gluconate 50 mg tablet 50 mg PO DAILY supplement 05/31/24 carvedilol 25 mg tablet 25 mg PO QHS BP/HR 07/15/24 ferrous sulfate 325 mg (65 mg iron) tablet,delayed release 325 mg PO DAILY supplement 07/15/24 apixaban 2.5 mg tablet 2.5 mg PO BID Blood thinner #180 tabs 12/04/24 sacubitril 49 mg-valsartan 51 mg tablet (Entresto) 1 tab PO BID heart #180 tabs 12/04/24 Held on 09/03/25. Instructions: Hold Entresto for 3 days and then resume lower dose half tablet twice daily potassium chloride 20 mEq tablet,extended release 20 meq PO QDAY PRN with lasix 02/21/25 multivitamin 1 tab PO QDAY supplement 03/21/25 nitroglycerin 0.4 mg sublingual tablet 0.4 mg sublingual Q5M PRN Cardiac/Chest Pain #25 tabs 07/16/25 furosemide 40 mg tablet 60 mg (1.5 x 40 mg) PO DAILY edema #30 tabs 09/03/25 Held on 09/03/25. Instructions: Hold furosemide for 2 days and then resume 60 mg daily.
--- NOTE | 2025-09-03 14:19 | CASEMGMT ---
Patient has order for discharge. Patient does not qualify for home oxygen. ANA CRISTINA MURPHY called [facility], start of care planned for tomorrow. ANA CRISTINA MURPHY updated discharge plan. ANA CRISTINA CM in to discuss needs at discharge, and daughter at bedside. Patient and family deny further needs or concerns. Patient and family had no further questions or concerns.
[2025-09-03 15:09] VITALS: BP 119/63; PULSE 64; RESP 18; TEMP 36.3; O2SAT 96
--- NOTE | 2025-09-03 15:14 | NURSING ---
Pt voided post teran dc
== END 2025-09-03 16:42 | disposition home health service (06) | DRG 291 ==
LOC: ED 08-31 01:42 → PCU 08-31 02:06
PROVIDERS: Hospitalist; Admitting Provider Family Medicine; Emergency Provider Specialist/Technologist Athletic Trainer; PCP Family Medicine; Visit Provider Internal Medicine
DX: I13.0 Hypertensive heart and chronic kidney disease with heart failure and stage 1 through stage 4 chronic kidney disease, or unspecified chronic kidney disease (principal); I50.23 Acute on chronic systolic (congestive) heart failure; E44.0 Moderate protein-calorie malnutrition; N18.4 Chronic kidney disease, stage 4 (severe); Z68.1 Body mass index [BMI] 19.9 or less, adult; Z51.5 Encounter for palliative care; Z66 Do not resuscitate; Z79.01 Long term (current) use of anticoagulants; I48.0 Paroxysmal atrial fibrillation; D63.1 Anemia in chronic kidney disease; D50.9 Iron deficiency anemia, unspecified; E78.5 Hyperlipidemia, unspecified; M10.9 Gout, unspecified; I25.10 Atherosclerotic heart disease of native coronary artery without angina pectoris; G47.33 Obstructive sleep apnea (adult) (pediatric); Z79.899 Other long term (current) drug therapy; Z95.0 Presence of cardiac pacemaker; R53.81 Other malaise; R06.89 Other abnormalities of breathing; R09.02 Hypoxemia; Z95.1 Presence of aortocoronary bypass graft
CPT/HCPCS: 36415; 51702; 71045; 80048; 80053; 81001; 82803; 83605; 85025; 85027; 85610; 85730; 87040; 87086; 87633; 93005; 97116; 97162; 97165; 97530; 97535; 97802; 99285; A4216; J0696; J1938